=== PATIENT | female | born 1965 | race Caucasian/White ===

== ENCOUNTER 2016-09-14 09:09 | Day surgery (SDC) | payer MEDICARE, OTHER ==
[2016-09-04 15:30] VITALS: BMI 28.3
[~2016-09-14 09:09] MED LIST: LACTATED RINGERS 1,000 ML IV ONE
[2016-09-14 09:59] VITALS: TEMP 97.6
[2016-09-14] MEDS ORDERED: LACTATED RINGERS 1,000 ML IV ONE (10:28)
[2016-09-14] MEDS ORDERED: fentaNYL (PF) 50 MCG/ML 2 ML AMP ONE (10:53)
[2016-09-14] MEDS ORDERED: BUPIVACAINE (PF) 0.5% 30 ML VIAL ONE (10:53)
[2016-09-14] MEDS ORDERED: MIDAZOLAM 2 MG/2 ML VIAL ONE (10:53)
[2016-09-14] MEDS ORDERED: TRIAMCINOLONE ACETONIDE 40 MG/ML 1 ML VIAL ONE (10:53)
--- NOTE | 2016-09-14 11:29 | P.PCN ---
Date of Procedure: 09/14/16 Procedure(s) Performed: PREOPERATIVE DIAGNOSIS: Cervical spondylosis with Facet Arthropathy without myelopathy. POSTOPERATIVE DIAGNOSIS: Cervical spondylosis with Facet Arthropathy without myelopathy. PROCEDURES: Radiofrequency thermocoagulation, Left C3, C4, C5 medial branch with Fluroscopy Guidence ANESTHESIA: Local with 1% lidocaine; IV sedation with fentanyl 200 mcg and Versed 2 mg . EBL: Minimal PROCEDURE INDICATION: The patient with neck pain secondary to cervical arthropathy who had more than 50% relief of her pain with previous diagnostic cervical medial branch block. We have done radiofrequency ablation of the medial branch cervical area patient gets good pain relief for more than 6 months , and she is here today to have repeat radiofrequency ablation of the medial branch cervical area PROCEDURE DESCRIPTION / TECHNIQUE: The patient was seen and identified in the preoperative area. Risks, benefits, complications, and alternatives were discussed with the patient, the patient agreed to proceed with the procedure and signed the consent. IV was started. Vital signs remained stable throughout the procedure. Patient was taken to the OR and time out was completed. The patient was placed in the prone position on the procedure table. A pillow was placed under the patients chest to increase the cervical interlaminar space. The cervical area was prepped and draped in the usual sterile fashion. Critical pause was taken. Vital signs were closely monitored during the procedure. Conscious sedation was used during the procedure to decrease patients anxiety. Using cross-table lateral fluoroscopy, the centroid of the trapezoid of C3, C4, C5, and C6 were identified, marked, and localized with 1% lidocaine. Subsequently, a 20 [id number] radiofrequency cannula with a 10-mm active tip was advanced guided by fluoroscopy to the centroid of the trapezoid of left C3 , C4, C5 . Needle tip position was confirmed at the centroid of the trapezoids of the left C3, C4, C5, with anteroposterior fluoroscopy. Each site then underwent sensory testing at 50 Hz and 0 to 1 volt and motor testing at 2 Hz and 0 to 3 volt with local stimulation, but no radicular symptoms down the arm. Thereafter the left C3, C4,C5 sites underwent radiofrequency thermocoagulation at 80 degrees celsius for 90 seconds after injecting 0.5 ml of PF lidocaine 1% . After thermocoagulation, 1 ml of the block solution containing Kenalog 40 mg and 3 mL of preservative-free normal saline was injected at the C3, C4, C5, levels after negative aspiration of CSF and blood and with no paresthesias. Cannulas were retracted while injecting lidocaine 1% until the needle is out. Skin was cleansed and bandages were applied. COMPLICATIONS: No acute complications. COMMENTS: DISPOSITION / PLANS: The patient was placed in a supine position and transferred to the recovery area in a stable condition for observation and was discharged from the recovery room after meeting discharge criteria. Home discharge instructions given to the patient by the staff. The patient was reexamined prior to discharge. The patient will schedule a follow up in the clinic in 2-4 weeks.
[2016-09-14 11:40] VITALS: PULSE 68; RESP 18
[2016-09-14] MEDS ORDERED: IV FLUID CONTINUATION 1,000 ML IV ONE (11:42)
[2016-09-14 11:56] VITALS: BP 131/62
--- NOTE | 2016-09-14 12:02 | FL ---
Fluoroscopy INDICATION: Pain FINDINGS: Fluoroscopy time: 8 seconds. Images obtained: 2. IMPRESSIONS: 1. Documentation of fluoroscopy.
== END 2016-09-14 12:25 | disposition home or self-care (01) ==
LOC: ORPAIN 09:09
PROVIDERS: ATTEND Specialist
DX: M47.812 Spondylosis without myelopathy or radiculopathy, cervical region (principal); M46.92 Unspecified inflammatory spondylopathy, cervical region; J44.9 Chronic obstructive pulmonary disease, unspecified; J45.909 Unspecified asthma, uncomplicated; F41.9 Anxiety disorder, unspecified; Z88.0 Allergy status to penicillin
CPT/HCPCS: 64633; 64634 ×2; J2250; J3301; J3010

== ENCOUNTER 2016-09-17 15:03 | Emergency (ER) | payer MEDICARE, OTHER ==
[2016-09-17] MEDS ORDERED: SODIUM CHLORIDE 0.9% 1,000 ML IV STA (15:46)
[2016-09-17] MEDS ORDERED: KETOROLAC 30 MG/ML 1 ML VIAL IVP STA (15:55)
--- NOTE | 2016-09-17 16:12 | ED ---
Abdominal Pain HPI - General Chief Complaint: Abdominal Pain Stated Complaint: Abd Pain Time Seen by Provider: 09/17/16 15:46 Source: patient, RN notes reviewed Mode of arrival: ambulatory Limitations: no limitations - History of Present Illness Initial Comments: 51-year-old female presents emergency Department chief complaint right flank and right lower abdominal pain for 3 weeks. Patient states she's been taking her primary care physician who treated for possible UTI though urine was clear. Patient is currently taking Cipro. Patient states she's had a prior cholecystectomy, hysterectomy with left oophorectomy states she still has a ovary. Patient denies any dysuria or hematuria. Denies any vaginal bleeding or vaginal discharge. Patient states she's had no nausea no vomiting diarrhea constipation. Patient has a history kidney stones. She states she has chronic pain which she takes Dilaudid for states that she took it today with no relief of her pain. Patient denies any chest pain or shortness breath. - Related Data Home Medications Medication Instructions Recorded Confirmed Albuterol Inhaler [Ventolin Hfa 1 puff INHALATION RT-QID PRN 12/21/13 09/17/16 Inhaler] Loratadine 10 mg PO QAM 01/10/14 09/17/16 busPIRone HCL [Buspar] 15 mg PO BID 05/16/14 09/17/16 Ezetimibe [Zetia] 10 mg PO HS 09/05/14 09/17/16 Lidocaine 5% Oint [Xylocaine 5% 1 applic TOPICAL QID PRN 11/28/14 09/17/16 Oint] Ranitidine HCl 75 mg PO DAILY 07/17/15 09/17/16 Docusate [Colace] 200 mg PO DAILY PRN 11/25/15 09/17/16 Fluticasone Propionate 1 spray EA NOSTRIL BID 11/25/15 09/17/16 Citalopram Hydrobromide [CeleXA] 40 mg PO QAM 12/10/15 09/17/16 Methylphenidate HCl [Ritalin] 20 mg PO TID 12/10/15 09/17/16 OXcarbazepine [Trileptal] 600 mg PO BID 12/10/15 09/17/16 traZODone HCL [Desyrel] 100 mg PO HS 12/10/15 09/17/16 Levothyroxine Sodium [Synthroid] 25 mcg PO DAILY 03/13/16 09/17/16 Varenicline [Chantix] 1 mg PO BID 04/15/16 09/17/16 Atorvastatin [Lipitor] 10 mg PO HS 07/20/16 09/17/16 Ibuprofen [Motrin] 600 mg PO Q4H PRN 07/20/16 09/17/16 Cholecalciferol [Vitamin D3] 3,000 unit PO DAILY 09/11/16 09/17/16 Ciprofloxacin HCl [Cipro] 250 mg PO Q12HR 09/17/16 09/17/16 Lactulose 20 gm PO DAILY PRN 09/17/16 09/17/16 Previous Rx's Medication Instructions Recorded Cyclobenzaprine [Flexeril] 10 mg PO BID PRN #60 tab 06/10/16 HYDROmorphone HCL [Dilaudid] 4 mg PO QID #120 tablet 08/05/16 Allergies Allergy/AdvReac Type Severity Reaction Status Date / Time Penicillins Allergy Rash/Hives Verified 09/17/16 15:45 Review of Systems ROS Statement: Those systems with pertinent positive or pertinent negative responses have been documented in the HPI. ROS Other: All systems not noted in ROS Statement are negative. Past Medical History Past Medical History: Asthma, COPD, GERD/Reflux, Hyperlipidemia, Musculoskeletal Disorder, Syncope, Thyroid Disorder Additional Past Medical History / Comment(s): Nephrolithiasis with sx, hypoglycemia chronic neck and L shoulder pain- DDD, DJD, hx L facial and L ankle fxs, sinus problems, vertigo, falls in past. 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 Bunionectomies , surgery for L fx foot-alix place & removed, lithotripsey and stent placed and removed, laser eye surgery bilaterally, EGD, Colonoscopy. PAIN clinic procedures. Rectocele in Aug 2015. Past Anesthesia/Blood Transfusion Reactions: Previous Problems w/ Anesthesia Additional Past Anesthesia/Blood Transfusion Reaction / Comment(s): Takes longer to wake up from anesthesia. Past Psychological History: ADD/ADHD, Anxiety, Depression Additional Psychological History / Comment(s): Pt resides with her eldest son. She is independent. She drives. Smoking Status: Current every day smoker Past Alcohol Use History: None Reported Additional Past Alcohol Use History / Comment(s): SMOKED ON/OFF SINCE 12 YEARS OLD, (37 YRS)1 PPD. STATES SMOKES A COUPLE CIGARETTES A DAY NOW. Past Drug Use History: None Reported Additional Drug Use History / Comment(s): PAST marijuana USE -quit 2011 - Past Family History Mother Family Medical History: Cancer, Thyroid Disorder Additional Family Medical History / Comment(s): Mother of LUNG cancer at age 64 yrs. Father Family Medical History: Asthma, COPD, Osteoarthritis (OA) Additional Family Medical History / Comment(s): Father at age 80 yrs. General Exam Limitations: no limitations General appearance: alert, in no apparent distress Head exam: Present: atraumatic, normocephalic, normal inspection Neck exam: Present: normal inspection, full ROM. Absent: tenderness, meningismus, lymphadenopathy Respiratory exam: Present: normal lung sounds bilaterally. Absent: respiratory distress, wheezes, rales, rhonchi, stridor Cardiovascular Exam: Present: regular rate, normal rhythm, normal heart sounds. Absent: systolic murmur, diastolic murmur, rubs, gallop, clicks GI/Abdominal exam: Present: soft, tenderness (Mild tenderness to right lower abdomen), normal bowel sounds. Absent: distended, guarding, rebound, rigid Back exam: Present: CVA tenderness (R). Absent: CVA tenderness (L) Skin exam: Present: warm, dry, intact, normal color. Absent: rash Course Vital Signs 09/17/16 09/17/16 09/17/16 15:12 18:43 19:11 Temperature 98 F 97.5 F L 97.4 F L Pulse Rate 70 96 65 Respiratory 20 16 18 Rate Blood Pressure 143/82 145/68 143/72 O2 Sat by Pulse 99 96 98 Oximetry Medical Decision Making - Medical Decision Making 51-year-old female presented for abdominal pain and right flank pain. Patient has been having ongoing pain. Patient's x-ray shows ileus/constipation CT shows no acute abnormality and lab work within normal limits. Patient will be discharged advised increase bowel movements secondary to chronic narcotic use - Lab Data Result diagrams: 09/17/16 16:10 09/17/16 16:10 Lab Results 09/17/16 09/17/16 09/17/16 Range/Units 16:10 16:10 16:10 WBC 10.6 (3.8-10.6) k/uL RBC 4.80 (3.80-5.40) m/uL Hgb 13.3 (11.4-16.0) gm/dL Hct 39.9 (34.0-46.0) % MCV 83.1 (80.0-100.0) fL MCH 27.8 (25.0-35.0) pg MCHC 33.4 (31.0-37.0) g/dL RDW 12.8 (11.5-15.5) % Plt Count 332 (150-450) k/uL Neutrophils % 63 % Lymphocytes % 28 % Monocytes % 5 % Eosinophils % 2 % Basophils % 0 % Neutrophils # 6.7 (1.3-7.7) k/uL Lymphocytes # 3.0 (1.0-4.8) k/uL Monocytes # 0.5 (0-1.0) k/uL Eosinophils # 0.2 (0-0.7) k/uL Basophils # 0.0 (0-0.2) k/uL Sodium 131 L (137-145) mmol/L Potassium 4.3 (3.5-5.1) mmol/L Chloride 92 L (98-107) mmol/L Carbon Dioxide 25 (22-30) mmol/L Anion Gap 14 mmol/L BUN 8 (7-17) mg/dL Creatinine 0.69 (0.52-1.04) mg/dL Est GFR (MDRD) Af Amer >60 (>60 ml/min/1.73 sqM) Est GFR (MDRD) Non-Af >60 (>60 ml/min/1.73 sqM) Glucose 83 (74-99) mg/dL Calcium 9.1 (8.4-10.2) mg/dL Total Bilirubin 0.4 (0.2-1.3) mg/dL AST 39 H (14-36) U/L ALT 158 H (9-52) U/L Alkaline Phosphatase 155 H (38-126) U/L Total Protein 7.8 (6.3-8.2) g/dL Albumin 4.8 (3.5-5.0) g/dL Amylase <30 L (30-110) U/L Lipase 67 (23-300) U/L Urine Color Yellow Urine Appearance Cloudy H (Clear) Urine pH 6.0 (5.0-8.0) Ur Specific [place] 1.020 (1.001-1.035) Urine Protein Trace H (Negative) Urine Glucose (UA) Negative (Negative) Urine Ketones Negative (Negative) Urine Blood Negative (Negative) Urine Nitrate Negative (Negative) Urine Bilirubin Negative (Negative) Urine Urobilinogen <2.0 (<2.0) mg/dL Ur Leukocyte Esterase Negative (Negative) Urine RBC 1 (0-5) /hpf Urine WBC 4 (0-5) /hpf Ur Squamous Epith Cells 4 (0-4) /hpf Hyaline Casts 1 (0-2) /lpf Urine Mucus Rare H (None) /hpf Disposition Clinical Impression: Abdominal pain, Ileus Disposition: HOME SELF-CARE Condition: Stable Instructions: Abdominal Pain (ED) Additional Instructions: Please return to the Emergency Department if symptoms worsen or any other concerns. Time of Disposition: 19:30
[2016-09-17 16:19] LABS: Basophils % (A) 0 %; CH 28.9; CHCM 34.9; Eosinophils # (A) 0.2 k/uL (0-0.7); Eosinophils % (A) 2 %; HCT 39.9 % (34.0-46.0); HDW 2.34; HGB 13.3 gm/dL (11.4-16.0); Luc # (Auto) 0.19; Luc % (Auto) 2; Lymphocytes % (A) 28 %; MCH 27.8 pg (25.0-35.0); MCHC 33.4 g/dL (31.0-37.0); MCV 83.1 fL (80.0-100.0); Mean Platelet Volume 6.3; Monocytes # (A) 0.5 k/uL (0-1.0); Monocytes % (A) 5 %; Neutrophils # (A) 6.7 k/uL (1.3-7.7); Neutrophils % (A) 63 %; RDW 12.8 % (11.5-15.5); WBC 10.6 k/uL (3.8-10.6); WBC (Perox) 10.52
[2016-09-17 16:29] LABS: ALT 158 U/L (9-52); AST 39 U/L (14-36); Alkaline Phosphatase 155 U/L (38-126); Amylase <30 U/L (30-110); Anion Gap 14 mmol/L; Blood Urea Nitrogen 8 mg/dL (7-17); Calcium 9.1 mg/dL (8.4-10.2); Carbon Dioxide 25 mmol/L (22-30); Chloride 92 mmol/L (98-107); Glucose 83 mg/dL (74-99); Non-African American GFR(MDRD) >60 (>60 ml/min/1.73 sqM); Potassium 4.3 mmol/L (3.5-5.1); Sodium 131 mmol/L (137-145); Total Bilirubin 0.4 mg/dL (0.2-1.3); Total Protein 7.8 g/dL (6.3-8.2)
--- NOTE | 2016-09-17 16:32 | XR ---
EXAMINATION TYPE: XR KUB DATE OF EXAM: 09/17/2016 4:25 PM COMPARISON: 08/04/2015 INDICATION: Abdomen pain, right lower quadrant pain TECHNIQUE: Single view abdomen upright view. FINDINGS: There is a nonspecific bowel gas pattern. Air-fluid levels are within the midabdomen. Air is within t he colon. Differential air-fluid level may be in the left upper quadrant. No free air is present. No mass effect is evident. Psoas margins are normal. No organomegaly is present. IMPRESSION: 1. Nonspecific abdomen. Correlate for ileus.
[2016-09-17 16:39] LABS: Appearance,Urine Cloudy (Clear); Bilirubin,Urine Negative (Negative); Glucose,Urine (UA) Negative (Negative); Ketones,Urine Negative (Negative); Leukocyte Esterase,Urine Negative (Negative); Mucus,Urine Rare /hpf; Nitrite,Urine Negative (Negative); Particle Count 5230; Protein,Urine Trace (Negative); RBC,Urine 1 /hpf (0-5); Squamous Epithelial Cell,Urine 4 /hpf (0-4); UA Billing (MACRO vs. MICRO) MICRO; Urobilinogen,Urine <2.0 mg/dL (<2.0); WBC,Urine 4 /hpf (0-5)
--- NOTE | 2016-09-17 17:06 | US ---
EXAMINATION TYPE: US transvaginal DATE OF EXAM: 09/17/2016 4:52 PM COMPARISON: No previous CLINICAL HISTORY: Pain. Intermittent right pelvic and back pain x 2 weeks that has gotten worse in pa st 2 days, history of hysterectomy and left oophorectomy, 5, para 3, miscarriage 1, 1 TECHNIQUE: Transvaginal (TV) Date of LMP: 15+ years ago EXAM MEASUREMENTS: Uterus: Surgically absent Endometrial Stripe: Surgically absent Right Ovary: not seen Left Ovary: Surgically absent TECHNOLOGIST IMPRESSION: 1. Uterus: Surgically absent 2. Endometrium: Surgically absent 3. Right Ovary: not seen due to overlying peristalsing bowel 4. Left Ovary: Surgically absent 5. Bilateral Adnexa: wnl 6. Posterior cul-de-sac: wnl IMPRESSION: Postsurgical pelvis. No suspicious findings evident on ultrasound. Exam is limited due to bowel gas and postsurgical surgical nature.
[2016-09-17] MEDS ORDERED: RX INFO: IV CONTRAST WAS GIVEN 1 EACH MISC MISCELLANE PRN (17:30)
[2016-09-17] MEDS ORDERED: HYDROmorphone 1 MG/ML 1 ML SYRINGE IVP STA (18:04)
[2016-09-17 19:12] VITALS: BP 143/72; PULSE 65; RESP 18; TEMP 97.4
--- NOTE | 2016-09-17 19:18 | CT ---
EXAMINATION TYPE: CT abdomen pelvis w con DATE OF EXAM: 09/17/2016 6:39 PM COMPARISON: December 10, 2015 CT HISTORY: Pelvic pain CT DLP: 1559 mGycm. Automated exposure control for dose reduction was used. TECHNIQUE: Helical acquisition of images was performed from the lung bases through the pelvis. CONTRAST: Performed with 100 mL of nonionic intravenous contrast. FINDINGS: LUNG BASES: No significant abnormality is appreciated. LIVER/GB: No significant abnormality is appreciated. PANCREAS: No significant abnormality is seen. SPLEEN: No significant abnormality is seen. ADRENALS: No significant abnormality is seen. KIDNEYS: No significant abnormality is seen. RETROPERITONEAL ADENOPATHY: None visualized REPRODUCTIVE ORGANS: No significant abnormality is seen URINARY BLADDER: No significant abnormality is seen. PELVIC ADENOPATHY: None visualized. OSSEOUS STRUCTURES: No significant abnormality is seen. BOWEL: No significant abnormality is seen. IMPRESSION: NO ACUTE PROCESS. NO FOCAL FINDINGS.
[2016-09-17] MEDS ORDERED: BISACODYL 5 MG TABLET.DR PO STA (19:26)
[2016-09-17] MEDS: HYOSCYAMINE SULFATE 0.125 MG TAB PO STA ×2 (19:56→19:57)
== END 2016-09-17 20:04 | disposition home or self-care (01) ==
LOC: EC 15:03
DX: K56.7 Ileus, unspecified (principal); T50.905A Adverse effect of unspecified drugs, medicaments and biological substances, initial encounter; E07.9 Disorder of thyroid, unspecified; E78.5 Hyperlipidemia, unspecified; K21.9 Gastro-esophageal reflux disease without esophagitis; J45.909 Unspecified asthma, uncomplicated; J44.9 Chronic obstructive pulmonary disease, unspecified; F41.9 Anxiety disorder, unspecified; F32.9 Major depressive disorder, single episode, unspecified; F90.9 Attention-deficit hyperactivity disorder, unspecified type; F17.210 Nicotine dependence, cigarettes, uncomplicated; N20.0 Calculus of kidney; K59.03 Drug induced constipation; Z79.51 Long term (current) use of inhaled steroids; Z79.899 Other long term (current) drug therapy; Z88.0 Allergy status to penicillin
CPT/HCPCS: 99285; 96374; 96375; 96361; 36415; 80053; 82150; 83690; 85025; 81001; 74000; 76830; 74177; J1885; J1170; Q9967

== ENCOUNTER → 2016-10-19 | Outpatient (CLI) | payer MEDICARE, OTHER ==
--- NOTE | 2016-10-19 13:04 | P.PN ---
Progress Note - Text Patient returns for followup for chronic neck pain with radiation to head. Patient recently underwent left cervical RFA, which provided very little relief , although patient has previously had excellent relief from cervical RFAs in the past. Patient continues on Dilaudid and Flexeril medications for pain with some relief, but has experienced constipation with bowel movements every 2-3 days, but the frequency of this has decreased in the past couple of months. Patient denies adverse drug effects from medications. Today, pt denies new- onset weakness, bowel/bladder incontinence, or any other signs or symptoms of cauda equina syndrome. There are no signs of acute intoxication, and no indications of medication diversion or overuse. In addition to above, 13-point review of systems is also negative for chest pain , shortness of breath, changes in vision, changes in hearing, new onset weakness , abdominal pain, diarrhea, extreme fatigue, malaise, fever, skin changes, homicidal or suicidal ideation, or bowel or bladder incontinence. Vital Signs: Reviewed in EMR Gen: WDWN, AAOx3, NAD HEENT: NCAT, EOMI, hearing grossly normal Pulm: resp unlabored Abd: soft, NT, ND Neck: supple, trachea midline ROM in flexion cervical spine: reduced ROM in extension cervical spine: reduced Cervical paravertebral tenderness: + Cervical Facet tenderness: + bilateral Spurling's: neg bilateral Upper extremity: decreased coordinating producer strength bilateral UEs Neuro: CN II-XII grossly intact, muscle strength lower extremities PRESERVED Imaging: Reviewed in EMR Assessment: 1. cervical spondylosis without myelopathy 2. cervical myofascial pain 3. chronic pain syndrome Plan: 1. Explanation: Opioid and psychological risk scores were reviewed. Diagnoses , prognoses, and multiple treatment options including but not limited to physical therapy, interventional therapies, adjuvant medical therapies, narcotic medication therapies, and surgery were discussed with the patient and all questions were answered to the patient's satisfaction. 2. Opioid agreement: Patient has previously signed narcotic agreement, and was orally counseled to not overuse, abuse, divert, or cell medications, and to take them as prescribed by only 1 healthcare provider. The patient was also counseled to store opioid medications in a safe and preferably locked location. Patient was also counseled against driving while using narcotic medications and also to not use alcohol or any illicit or recreational drugs. The patient verbalized understanding that lack of compliance with any of the above and likely result in failure to renew narcotic prescriptions, possible discharge from the clinic, and possible legal ramifications thereafter if indicated. 3. Counseling: The patient was counseled extensively on BODY MASS INDEX, EXERCISE. Specifically, the patient was instructed regarding the importance of weight loss and exercise in the context of both chronic pain and overall health. 4. Procedures: none for now 5. Consultations: None 6. Investigations: UDS OK from visit in May 29. Medications: Dilaudid x 2 months 8. Disposition: f/u for re-eval in 2 months after patient sees safety sitter re: constipation PQRS measures: 1-Patient's medications are documented in the chart. 2-Tobacco use is positive, counseling given 3-Patient has not had a pneumococcal vaccine. 4-Advanced care planning discussed, patient unable to give. 5-Opioid contract signed with the patient. 6-Pain positive, follow-up visit or procedure scheduled 7-Patient's blood pressure measured and documented, and patient will follow up with the primary care due to hypertension. 8-Patient's weight was measured, and body mass index ABOVE the normal limits, and counseling was done. Patient instructed to follow up with PCP. 9-Patient WAS NOT identified as an unhealthy alcohol user.
[2016-10-19 13:12] VITALS: BP 111/63; PULSE 75; RESP 16; TEMP 97.6
== END | disposition home or self-care (01) ==
LOC: PNWHC3 12:39
PROVIDERS: ATTEND Anesthesiology
DX: M47.812 Spondylosis without myelopathy or radiculopathy, cervical region (principal); M79.1 Myalgia; G89.4 Chronic pain syndrome; K59.00 Constipation, unspecified; Z79.899 Other long term (current) drug therapy; I10 Essential (primary) hypertension; Z72.0 Tobacco use
CPT/HCPCS: 99211

== ENCOUNTER 2016-11-13 13:22 | Emergency (ER) | payer MEDICARE, OTHER ==
[2016-11-13] MEDS ORDERED: HYDROmorphone 1 MG/ML 1 ML SYRINGE IM STA (14:51)
[2016-11-13] MEDS ORDERED: DIAZEPAM 5 MG/ML 2 ML SYRINGE IVP STA (14:51)
[2016-11-13] MEDS ORDERED: ONDANSETRON 4 MG/2 ML VIAL IVP STA (14:51)
[2016-11-13] MEDS ORDERED: HYDROmorphone 1 MG/ML 1 ML SYRINGE IVP STA (15:18)
[2016-11-13 15:21] LABS: Basophils % (A) 1 %; CH 28.7; Eosinophils # (A) 0.2 k/uL (0-0.7); Eosinophils % (A) 3 %; HCT 33.4 % (34.0-46.0); HDW 2.34; HGB 11.5 gm/dL (11.4-16.0); Luc # (Auto) 0.23; Luc % (Auto) 3; Lymphocytes # (A) 2.6 k/uL (1.0-4.8); Lymphocytes % (A) 37 %; MCH 28.2 pg (25.0-35.0); MCHC 34.3 g/dL (31.0-37.0); MCV 82.3 fL (80.0-100.0); Mean Platelet Volume 7.2; Monocytes # (A) 0.4 k/uL (0-1.0); Monocytes % (A) 5 %; Neutrophils # (A) 3.6 k/uL (1.3-7.7); Neutrophils % (A) 52 %; RBC 4.07 m/uL (3.80-5.40); RDW 12.7 % (11.5-15.5); WBC (Perox) 7.22
[2016-11-13 15:23] LABS: Appearance,Urine Cloudy (Clear); Bacteria,Urine Rare /hpf; Bilirubin,Urine Negative (Negative); Glucose,Urine (UA) Negative (Negative); Ketones,Urine Negative (Negative); Leukocyte Esterase,Urine Large (Negative); Mucus,Urine Few /hpf; Nitrite,Urine Negative (Negative); PH, Urine 6.5 (5.0-8.0); Particle Count 9228; Protein,Urine Trace (Negative); RBC,Urine 2 /hpf (0-5); Specific Gravity,Urine 1.016 (1.001-1.035); Squamous Epithelial Cell,Urine 17 /hpf (0-4); UA Billing (MACRO vs. MICRO) MICRO; WBC,Urine 22 /hpf (0-5)
[2016-11-13 15:30] LABS: ALT 23 U/L (9-52); AST 27 U/L (14-36); Alkaline Phosphatase 98 U/L (38-126); Anion Gap 9 mmol/L; Blood Urea Nitrogen 7 mg/dL (7-17); Calcium 8.9 mg/dL (8.4-10.2); Carbon Dioxide 28 mmol/L (22-30); Chloride 90 mmol/L (98-107); Glucose 84 mg/dL (74-99); Non-African American GFR(MDRD) >60 (>60 ml/min/1.73 sqM); Potassium 4.5 mmol/L (3.5-5.1); Sodium 127 mmol/L (137-145); Total Bilirubin 0.4 mg/dL (0.2-1.3); Total Protein 6.5 g/dL (6.3-8.2)
--- NOTE | 2016-11-13 15:49 | XR ---
EXAMINATION TYPE: XR lumbar spine 2 or 3V DATE OF EXAM ORDERED: 11/13/2016 3:44 PM HISTORY: Pain. COMPARISON: None. FINDINGS: There has been an interpedicular fusion at L5-S1. There is been an L5 laminectomy. There i s degenerative disc disease at the L5-S1 level. Vertebral body height and alignment are maintained. T here is no spondylolysis or spondylolisthesis. The pedicles are intact. IMPRESSION: 1. NO ACUTE OSSEOUS LESION. 2. POSTSURGICAL CHANGE.
--- NOTE | 2016-11-13 16:09 | US ---
EXAMINATION TYPE: US transvaginal DATE OF EXAM: 11/13/2016 3:51 PM COMPARISON: Previous study dated 09/17/2016 CLINICAL HISTORY: Pain. Back pain, right pelvic pain, hysterectomy and left oophorectomy TECHNIQUE: Transvaginal (TV) Date of LMP: unknown EXAM MEASUREMENTS: Uterus: Surgically absent Endometrial Stripe: Surgically absent Right Ovary: 3.0 x 2.1 x 2.2 cm Left Ovary: Surgically absent 1. Uterus: Surgically absent 2. Endometrium: Surgically absent 3. Right Ovary: appears wnl, limited evaluation due to overlying bowel content Spectral, color and waveform doppler imaging shows good arterial and venous flow within the right o vary; there is no evidence for ovarian torsion. 4. Left Ovary: Surgically absent 5. Bilateral Adnexa: appears wnl IMPRESSION: NORMAL POSTHYSTERECTOMY PELVIS.
--- NOTE | 2016-11-13 17:01 | ED ---
General Adult HPI - General Chief complaint: Back Pain/Injury Stated complaint: back pain Time Seen by Provider: 11/13/16 14:17 Source: patient Mode of arrival: ambulatory Limitations: no limitations - History of Present Illness Initial comments: 51-year-old female with past medical history of spinal fusion of the lumbar spine presented for evaluation of back pain with radiation around to her suprapubic abdomen. She states that the symptoms have been present for the last 24 hours. She was seen by her primary care physician who stated that she should come to the ED for further evaluation. She denies any lower extremity weakness, saddle anesthesia, urinary or bowel incontinence. She does have mild dysuria with increased frequency and hesitancy. Denies nausea, vomiting, fevers , chills, chest pain, shortness of breath. Back pain is similar previous but worse. - Related Data Home Medications Medication Instructions Recorded Confirmed Albuterol Inhaler [Ventolin Hfa 1 puff INHALATION RT-QID PRN 12/21/13 11/13/16 Inhaler] Loratadine 10 mg PO QAM 01/10/14 11/13/16 busPIRone HCL [Buspar] 15 mg PO BID 05/16/14 11/13/16 Ezetimibe [Zetia] 10 mg PO HS 09/05/14 11/13/16 Lidocaine 5% Oint [Xylocaine 5% 1 applic TOPICAL BID PRN 11/28/14 11/13/16 Oint] Ranitidine HCl 75 mg PO DAILY 07/17/15 11/13/16 Fluticasone Propionate 1 spray EA NOSTRIL BID 11/25/15 11/13/16 Citalopram Hydrobromide [CeleXA] 40 mg PO QAM 12/10/15 11/13/16 Methylphenidate HCl [Ritalin] 20 mg PO TID 12/10/15 11/13/16 OXcarbazepine [Trileptal] 600 mg PO BID 12/10/15 11/13/16 Levothyroxine Sodium [Synthroid] 25 mcg PO DAILY 03/13/16 11/13/16 Atorvastatin [Lipitor] 10 mg PO HS 07/20/16 11/13/16 Cholecalciferol [Vitamin D3] 3,000 unit PO DAILY 09/11/16 11/13/16 Lactulose 30 gm PO DAILY 09/17/16 11/13/16 Naproxen [Naprosyn] 250 mg PO BID 10/19/16 11/13/16 Simethicone [Gas-X] 125 mg PO Q8H PRN 10/19/16 11/13/16 Dicyclomine [Bentyl] 10 mg PO BID PRN 11/13/16 11/13/16 Omeprazole 40 mg PO DAILY 11/13/16 11/13/16 traZODone HCL 50 mg PO HS 11/13/16 11/13/16 Previous Rx's Medication Instructions Recorded Cyclobenzaprine [Flexeril] 10 mg PO BID PRN #60 tab 06/10/16 HYDROmorphone HCL [Dilaudid] 4 mg PO QID #120 tablet 10/19/16 HYDROcodone/APAP 5-325MG [Morrow 1 - 2 tab PO Q6HR PRN #14 tab 11/13/16 5-325] Ibuprofen [Motrin] 800 mg PO Q8HR PRN #20 tab 11/13/16 Sulfamethox-Tmp 800-160Mg [Bactrim 1 tab PO Q12HR #14 tab 11/13/16 DS 800-160 mg] Allergies Allergy/AdvReac Type Severity Reaction Status Date / Time Penicillins Allergy Rash/Hives Verified 11/13/16 14:50 Review of Systems ROS Statement: Those systems with pertinent positive or pertinent negative responses have been documented in the HPI. ROS Other: All systems not noted in ROS Statement are negative. Constitutional: Denies: fever, chills, weakness Eyes: Denies: eye pain, vision change ENT: Denies: ear pain, throat pain Respiratory: Denies: cough, dyspnea, wheezes Cardiovascular: Denies: chest pain, palpitations Endocrine: Denies: fatigue, polydipsia, polyuria Gastrointestinal: Denies: abdominal pain, nausea, vomiting Genitourinary: Reports: urgency, dysuria, frequency. Denies: hematuria, discharge, abnormal menses, dyspareunia Musculoskeletal: Reports: back pain. Denies: joint swelling, arthralgia Skin: Denies: rash, lesions Neurological: Denies: headache, weakness Psychiatric: Denies: anxiety, depression Past Medical History Past Medical History: Asthma, COPD, GERD/Reflux, Hyperlipidemia, Musculoskeletal Disorder, Syncope, Thyroid Disorder Additional Past Medical History / Comment(s): Nephrolithiasis with sx, hypoglycemia chronic neck and L shoulder pain- DDD, DJD, hx L facial and L ankle fxs, sinus problems, vertigo, falls in past. 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 Bunionectomies , surgery for L fx foot-alix place & removed, lithotripsey and stent placed and removed, laser eye surgery bilaterally, EGD, Colonoscopy. PAIN clinic procedures. Rectocele in Aug 2015. Past Anesthesia/Blood Transfusion Reactions: Previous Problems w/ Anesthesia Additional Past Anesthesia/Blood Transfusion Reaction / Comment(s): Takes longer to wake up from anesthesia. Past Psychological History: ADD/ADHD, Anxiety, Depression Additional Psychological History / Comment(s): Pt resides with her eldest son. She is independent. She drives. Smoking Status: Former smoker Past Alcohol Use History: None Reported Additional Past Alcohol Use History / Comment(s): SMOKED ON/OFF SINCE 12 YEARS OLD, (37 YRS)1 PPD. STATES SMOKES A COUPLE CIGARETTES A DAY NOW. Past Drug Use History: None Reported Additional Drug Use History / Comment(s): PAST marijuana USE -quit 2011 - Past Family History Mother Family Medical History: Cancer, Thyroid Disorder Additional Family Medical History / Comment(s): Mother of LUNG cancer at age 64 yrs. Father Family Medical History: Asthma, COPD, Osteoarthritis (OA) Additional Family Medical History / Comment(s): Father at age 80 yrs. General Exam Limitations: no limitations General appearance: alert, in no apparent distress Head exam: Absent: atraumatic, normocephalic Eye exam: Absent: normal appearance, PERRL, EOMI ENT exam: Present: normal exam, normal oropharynx Neck exam: Present: normal inspection. Absent: tenderness Respiratory exam: Present: normal lung sounds bilaterally. Absent: respiratory distress Cardiovascular Exam: Present: regular rate, normal rhythm GI/Abdominal exam: Present: soft. Absent: distended, tenderness, guarding, rebound Rectal exam: Present: deferred Extremities exam: Present: normal inspection, full ROM Back exam: Present: tenderness, vertebral tenderness. Absent: CVA tenderness (R ), CVA tenderness (L), muscle spasm, paraspinal tenderness Neurological exam: Present: alert, oriented X3, CN II-XII intact, normal gait. Absent: altered Psychiatric exam: Present: normal affect, normal mood Skin exam: Present: warm, dry, intact Course Vital Signs 11/13/16 11/13/16 11/13/16 13:34 15:30 17:18 Temperature 98.0 F 97.6 F Pulse Rate 66 68 62 Respiratory 17 18 16 Rate Blood Pressure 136/64 130/68 140/86 O2 Sat by Pulse 98 98 98 Oximetry EKG Findings - EKG Comments: EKG Findings:: Sinus rhythm with first-degree AV block, ventricular rate 62, RUPERT 08/24/1942, QRS 92, QTc 462. Medical Decision Making - Medical Decision Making 51-year-old female with past medical history of lower back surgery presenting for evaluation of chronic back pain that is acutely worsened with new onset superpubic abdominal pain. On physical examination she does have tenderness to the lower back and only minor superpubic tenderness. We'll obtain labs and treat her pain. Labs significant for urinary tract infection. Imaging of lumbar spine showed no acute process. The patient was informed of these results and that she would be given a prescription for antibiotics and discharged with instructions to follow-up with her primary care physician but to return to this facility if her symptoms should worsen or persist. Patient acknowledged an understanding of this information and agreed with this plan of care. - Lab Data Result diagrams: 11/13/16 15:05 11/13/16 15:05 Lab Results 11/13/16 11/13/16 11/13/16 Range/Units 15:05 15:05 15:05 WBC 7.0 (3.8-10.6) k/uL RBC 4.07 (3.80-5.40) m/uL Hgb 11.5 (11.4-16.0) gm/dL Hct 33.4 L (34.0-46.0) % MCV 82.3 (80.0-100.0) fL MCH 28.2 (25.0-35.0) pg MCHC 34.3 (31.0-37.0) g/dL RDW 12.7 (11.5-15.5) % Plt Count 255 (150-450) k/uL Neutrophils % 52 % Lymphocytes % 37 % Monocytes % 5 % Eosinophils % 3 % Basophils % 1 % Neutrophils # 3.6 (1.3-7.7) k/uL Lymphocytes # 2.6 (1.0-4.8) k/uL Monocytes # 0.4 (0-1.0) k/uL Eosinophils # 0.2 (0-0.7) k/uL Basophils # 0.0 (0-0.2) k/uL Sodium 127 L (137-145) mmol/L Potassium 4.5 (3.5-5.1) mmol/L Chloride 90 L (98-107) mmol/L Carbon Dioxide 28 (22-30) mmol/L Anion Gap 9 mmol/L BUN 7 (7-17) mg/dL Creatinine 0.66 (0.52-1.04) mg/dL Est GFR (MDRD) Af Amer >60 (>60 ml/min/1.73 sqM) Est GFR (MDRD) Non-Af >60 (>60 ml/min/1.73 sqM) Glucose 84 (74-99) mg/dL Calcium 8.9 (8.4-10.2) mg/dL Total Bilirubin 0.4 (0.2-1.3) mg/dL AST 27 (14-36) U/L ALT 23 (9-52) U/L Alkaline Phosphatase 98 (38-126) U/L Total Protein 6.5 (6.3-8.2) g/dL Albumin 4.1 (3.5-5.0) g/dL Lipase 47 (23-300) U/L Urine Color Yellow Urine Appearance Cloudy H (Clear) Urine pH 6.5 (5.0-8.0) Ur Specific Josephine 1.016 (1.001-1.035) Urine Protein Trace H (Negative) Urine Glucose (UA) Negative (Negative) Urine Ketones Negative (Negative) Urine Blood Negative (Negative) Urine Nitrite Negative (Negative) Urine Bilirubin Negative (Negative) Urine Urobilinogen 2.0 (<2.0) mg/dL Ur Leukocyte Esterase Large H (Negative) Urine RBC 2 (0-5) /hpf Urine WBC 22 H (0-5) /hpf Ur Squamous Epith Cells 17 H (0-4) /hpf Urine Bacteria Rare H (None) /hpf Urine Mucus Few H (None) /hpf Disposition Clinical Impression: UTI (urinary tract infection), Back pain Disposition: HOME SELF-CARE Condition: Stable Instructions: Urinary Tract Infection in Women (ED) Additional Instructions: Please use medication as discussed. Please follow up with family doctor if symptoms have not improved over the next two days. Please return to the emergency room if your symptoms increase or worsen or for any other concerns. Prescriptions: HYDROcodone/APAP 5-325MG [Morrow 5-325] 1 - 2 tab PO Q6HR PRN #14 tab PRN Reason: Analgesia Ibuprofen [Motrin] 800 mg PO Q8HR PRN #20 tab PRN Reason: Analgesia Sulfamethox-Tmp 800-160Mg [Bactrim DS 800-160 mg] 1 tab PO Q12HR #14 tab Referrals: Ihsan Ding DO [Primary Care Provider] - 1-2 days Time of Disposition: 17:01
[2016-11-13] MEDS ORDERED: HYDROcodone/APAP 5-325MG 1 EACH TAB PO STA (17:04)
[2016-11-13 17:20] VITALS: BP 140/86; PULSE 62; RESP 16; TEMP 97.6
== END 2016-11-13 17:18 | disposition home or self-care (01) ==
LOC: EC 13:22
DX: N39.0 Urinary tract infection, site not specified (principal); M54.5 Low back pain; G89.29 Other chronic pain; Z98.1 Arthrodesis status; E07.9 Disorder of thyroid, unspecified; K21.9 Gastro-esophageal reflux disease without esophagitis; E78.5 Hyperlipidemia, unspecified; F90.9 Attention-deficit hyperactivity disorder, unspecified type; F41.9 Anxiety disorder, unspecified; F32.9 Major depressive disorder, single episode, unspecified; F17.210 Nicotine dependence, cigarettes, uncomplicated; Z79.1 Long term (current) use of non-steroidal anti-inflammatories (NSAID); Z79.891 Long term (current) use of opiate analgesic; Z79.51 Long term (current) use of inhaled steroids; Z79.899 Other long term (current) drug therapy; Z88.0 Allergy status to penicillin
CPT/HCPCS: 99284 ×2; 96374 ×2; 96375 ×3; 36415; 93005; 80053; 83690; 85025; 81001; 72100; 93976; 76830; J3360; J2405; J1170

== ENCOUNTER 2016-11-21 13:53 | Emergency (ER) | payer MEDICARE, OTHER ==
[2016-11-21 13:59] VITALS: RESP 16
--- NOTE | 2016-11-21 14:46 | ED ---
General Adult HPI - General Chief complaint: Abdominal Pain Stated complaint: Stomach and Back Pain Time Seen by Provider: 11/21/16 14:07 Source: patient, RN notes reviewed, old records reviewed Mode of arrival: ambulatory Limitations: no limitations - History of Present Illness Initial comments: Chief complaint history of present illness this is a 51-year-old female here with the discomfort from her right lower back to the right lower quadrant area. The patient having this pain for several months. While in hospital ER 1 week ago she had a UTI. It was treated. 3 days ago she had a urine test done which showed no growth from her doctor's office. Patient denies any change in appetite, no weight loss. Patient does report having had mesh used to close hernia in years gone by. - Related Data Home Medications Medication Instructions Recorded Confirmed Albuterol Inhaler [Ventolin Hfa 1 puff INHALATION RT-QID PRN 12/21/13 11/21/16 Inhaler] Loratadine 10 mg PO QAM 01/10/14 11/21/16 busPIRone HCL [Buspar] 15 mg PO BID 05/16/14 11/21/16 Ezetimibe [Zetia] 10 mg PO HS 09/05/14 11/21/16 Lidocaine 5% Oint [Xylocaine 5% 1 applic TOPICAL BID PRN 11/28/14 11/21/16 Oint] Ranitidine HCl 75 mg PO HS 07/17/15 11/21/16 Fluticasone Propionate 1 spray EA NOSTRIL BID 11/25/15 11/21/16 Citalopram Hydrobromide [CeleXA] 40 mg PO QAM 12/10/15 11/21/16 Methylphenidate HCl [Ritalin] 20 mg PO TID 12/10/15 11/21/16 OXcarbazepine [Trileptal] 600 mg PO BID 12/10/15 11/21/16 Levothyroxine Sodium [Synthroid] 25 mcg PO DAILY 03/13/16 11/21/16 Atorvastatin [Lipitor] 10 mg PO HS 07/20/16 11/21/16 Cholecalciferol [Vitamin D3] 3,000 unit PO DAILY 09/11/16 11/21/16 Lactulose 30 gm PO DAILY 09/17/16 11/21/16 Naproxen [Naprosyn] 250 mg PO BID 10/19/16 11/21/16 Simethicone [Gas-X] 125 mg PO Q8H PRN 10/19/16 11/21/16 Dicyclomine [Bentyl] 10 mg PO BID PRN 11/13/16 11/21/16 Omeprazole 40 mg PO HS 11/13/16 11/21/16 traZODone HCL 50 mg PO HS 11/13/16 11/21/16 Previous Rx's Medication Instructions Recorded Cyclobenzaprine [Flexeril] 10 mg PO BID PRN #60 tab 06/10/16 HYDROmorphone HCL [Dilaudid] 4 mg PO QID #120 tablet 10/19/16 Ibuprofen [Motrin] 800 mg PO Q8HR PRN #20 tab 11/13/16 Allergies Allergy/AdvReac Type Severity Reaction Status Date / Time Penicillins Allergy Rash/Hives Verified 11/21/16 14:49 Review of Systems ROS Statement: Those systems with pertinent positive or pertinent negative responses have been documented in the HPI. Review of systems. No complaint of headache chest pain shortness of breath no change in bowel habits or urination. Patient has discomfort in the right lower back into the right lower quadrant area. All systems are reviewed. Past medical problems significant for asthma, COPD, GERD, hyperlipidemia, chronic back pain, syncope, low thyroid, nephrolithiasis one year ago. Patient's surgeries include appendectomy, partial hysterectomy with right ovary still left in place. Adenoidectomy tonsillectomy, but Chiari malformation surgery. Abdominal hernia repair with mesh. And back surgery. The patient quit smoking 3 months ago family history at this time noncontributory. Patient has ALLERGIES to penicillin. Told chart reviewed. ROS Other: All systems not noted in ROS Statement are negative. Past Medical History Past Medical History: Asthma, COPD, GERD/Reflux, Hyperlipidemia, Musculoskeletal Disorder, Syncope, Thyroid Disorder Additional Past Medical History / Comment(s): Nephrolithiasis with sx, hypoglycemia chronic neck and L shoulder pain- DDD, DJD, hx L facial and L ankle fxs, sinus problems, vertigo, falls in past. 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 Bunionectomies , surgery for L fx foot-alix place & removed, lithotripsey and stent placed and removed, laser eye surgery bilaterally, EGD, Colonoscopy. PAIN clinic procedures. Rectocele in Aug 2015. Past Anesthesia/Blood Transfusion Reactions: Previous Problems w/ Anesthesia Additional Past Anesthesia/Blood Transfusion Reaction / Comment(s): Takes longer to wake up from anesthesia. Past Psychological History: ADD/ADHD, Anxiety, Depression Additional Psychological History / Comment(s): Pt resides with her eldest son. She is independent. She drives. Smoking Status: Former smoker Past Alcohol Use History: None Reported Additional Past Alcohol Use History / Comment(s): SMOKED ON/OFF SINCE 12 YEARS OLD, (37 YRS)1 PPD. STATES SMOKES A COUPLE CIGARETTES A DAY NOW. Past Drug Use History: None Reported Additional Drug Use History / Comment(s): PAST marijuana USE -quit 2011 - Past Family History Mother Family Medical History: Cancer, Thyroid Disorder Additional Family Medical History / Comment(s): Mother of LUNG cancer at age 64 yrs. Father Family Medical History: Asthma, COPD, Osteoarthritis (OA) Additional Family Medical History / Comment(s): Father at age 80 yrs. General Exam - General Exam Comments Initial Comments: General: The patient is awake and alert, in no distress, and does not appear acutely ill. Planes or chronic, over 3 months long pain right lower lumbar radiating around toward the right lower quadrant. Vital signs are temperature 96.8 pulse 71 respiratory rate 16 pulse ox 98% room air blood pressure 114/59 Eye: Pupils are equal, round and reactive to light, extra-ocular movements are intact ; there is normal conjunctiva bilaterally. No signs of icterus. Ears, nose, mouth and throat: There are moist mucous membranes and no oral lesions. Neck: The neck is supple, there is no tenderness , no anterior cervical lymphadenopathy. Cardiovascular: There is a regular rate and rhythm. No murmur, rub or gallop is appreciated. Respiratory: Lungs are clear to auscultation, respirations are non-labored, breath sounds are equal. No wheezes, stridor, rales, or rhonchi. Gastrointestinal: Soft, non-distended, non-tender abdomen without masses or organomegaly noted. There is no rebound or guarding present. No CVA tenderness. Bowel sounds are unremarkable. No pain with deep palpation. No organomegaly appreciated. No rashes noted. Patient was advised to WATCH for any rashes that might be related to shingles. Back: Chronic mild low back pain especially on the right side which radiates around toward the front. Musculoskeletal: Normal ROM, no tenderness, There is no pedal edema. There is no calf tenderness or swelling. Neurological: No neuro deficits. No problems with voiding. No complaints of numbness or tingling in the saddle area. No foot drop complaints. Skin: Skin is warm and dry and no rashes or lesions are noted. Psychiatric: No complaints of any anxiety or depression. Past history of anxiety and depression. Limitations: no limitations Course Vital Signs 11/21/16 13:57 Temperature 96.8 F L Pulse Rate 71 Respiratory 16 Rate Blood Pressure 114/59 O2 Sat by Pulse 98 Oximetry Medical Decision Making - Medical Decision Making Medical decision making; the patient had an ultrasound of the right upper quadrant the radiologist's impression was a dilated pancreatic duct and status post cholecystectomy. She also had an ultrasound of the right lower quadrant. And the radiologist's impression is; the uterus is surgically absent, the right ovary obscured by overlying bowel gas but the patient had an ultrasound just 10 days ago which showed essentially a normal ovary and blood flow to the ovary. The patient be referred back to her family physician. As this is been 3-4 month long process. The patient does have Dilaudid pain pills at home. And reexamination found no guarding no rebound or referred pain. And no organomegaly. Disposition Clinical Impression: Chronic abdominal pain Disposition: HOME SELF-CARE Condition: Stable Additional Instructions: Continue with home medications. Follow-up with your family physician. Time of Disposition: 19:09
--- NOTE | 2016-11-21 16:32 | US ---
EXAMINATION TYPE: US abdomen limited DATE OF EXAM: 11/21/2016 3:49 PM COMPARISON: on PACS CLINICAL HISTORY: RLQ pain,prev appy, partial hyst, has rt ovary. Patient states having GB removed x 4-5 years ago. Hx of left renal stone. EXAM MEASUREMENTS: Liver Length: 16.4 cm CHD: 0.7 cm Right Kidney: 10.4 x 5.5 x 4.7 cm Pancreas: echogenic. Main pancreatic duct appears dilated= 3.3 mm. Tail not seen due to overlying bowel gas. Liver: wnl Gallbladder: removed CHD: wnl Right Kidney: Prominent dromedary hump seen. The pancreas is echogenic. The pancreatic duct is enlarged measuring 3.3 cm. The liver is unremarkable. The gallbladder is been removed. Distal common hepatic duct measures 7 mm. The right kidney is unremarkable. IMPRESSION: 1. DILATED PANCREATIC DUCT. 2. STATUS POST CHOLECYSTECTOMY.
--- NOTE | 2016-11-21 18:49 | US ---
EXAMINATION TYPE: US transvaginal DATE OF EXAM: 11/21/2016 6:32 PM COMPARISON: on PACS CLINICAL HISTORY: Evaluate right ovary, right lower quadrant pain. Hx of partial hysterectomy with le ft ovary removed. Hx of vaginal mesh. TECHNIQUE: Transvaginal (TV) Date of LMP: Uterus removed EXAM MEASUREMENTS: 1. Uterus: Surgically absent 2. Endometrium: Surgically absent 3. Right Ovary: Obscured by overlying bowel gas 4. Left Ovary: Surgically absent 5. Bilateral Adnexa: Multiple images taken. No sign of free fluid or masses sen. 6. Posterior cul-de-sac: wnl IMPRESSION: Although the right ovary was visualized and unremarkable on the prior exam of 11/13/2016, unfortunately it is currently obscured by bowel gas and cannot be visualized. Again the uterus and le ft ovary are surgically absent.
[2016-11-21 19:23] VITALS: PULSE 70; TEMP 97.8
[2016-11-21 19:29] VITALS: BP 126/78
== END 2016-11-21 19:28 | disposition home or self-care (01) ==
LOC: EC 13:53
DX: R10.9 Unspecified abdominal pain (principal); G89.29 Other chronic pain; M54.5 Low back pain; J45.909 Unspecified asthma, uncomplicated; J44.9 Chronic obstructive pulmonary disease, unspecified; K21.9 Gastro-esophageal reflux disease without esophagitis; E78.5 Hyperlipidemia, unspecified; E07.9 Disorder of thyroid, unspecified; F90.9 Attention-deficit hyperactivity disorder, unspecified type; F32.9 Major depressive disorder, single episode, unspecified; F41.9 Anxiety disorder, unspecified; Z87.891 Personal history of nicotine dependence; Z79.1 Long term (current) use of non-steroidal anti-inflammatories (NSAID); Z79.899 Other long term (current) drug therapy; Z88.0 Allergy status to penicillin; Z90.710 Acquired absence of both cervix and uterus; Z98.890 Other specified postprocedural states
CPT/HCPCS: 76705; 76830; 99284

== ENCOUNTER → 2016-12-14 | Outpatient (CLI) | payer MEDICARE, OTHER ==
[2016-12-14 14:57] VITALS: BP 129/77; PULSE 82; RESP 82; TEMP 97.9
--- NOTE | 2016-12-14 14:59 | P.PN ---
Progress Note - Text This is a 51-year-old female with chronic neck pain status post Arnold-Chiari decompression surgery many years ago. The patient had many injections in her neck with short-lived or little relief of her pain after the last RFA. She takes Dilaudid 4 mg 4 times a day plus baclofen. Neuro exam of the upper extremities showed normal and symmetrical muscle strength normal biceps reflex and absent triceps reflex bilaterally and symmetrically. She has tenderness in the cervical paravertebral area on the left side and she had decreased left head rotation because of increasing pain on the left side of her neck. The patient has numbness and tingling in the left hand that has been getting worse lately. At this point I will order an MRI of the cervical spine with and without contrast for left cervical radiculopathy. I will decrease her Dilaudid from 4 mg 4 times a day to 4 mg 3 times a day. We will see the patient next month for reevaluation.
== END ==
LOC: PNWHC3 14:35
PROVIDERS: ATTEND Anesthesiology
DX: M54.2 Cervicalgia (principal); G89.29 Other chronic pain; Z79.891 Long term (current) use of opiate analgesic; Z79.899 Other long term (current) drug therapy
CPT/HCPCS: 99211

== ENCOUNTER → 2016-12-26 | Outpatient (CLI) | payer MEDICARE, OTHER ==
--- NOTE | 2016-12-27 12:40 | MR ---
EXAMINATION TYPE: MR cervical spine wo/w con DATE OF EXAM: 12/26/2016 11:08 AM COMPARISON: Prior cervical MRI dated first of December 2012 HISTORY: Neck pain TECHNIQUE: Multiplanar, multisequence images of the cervical spine were acquired utilizing 15 mL intravenous Mul tiHance gadolinium contrast. C2-C3: Some mild left-sided foraminal encroachment is present due to uncovertebral joint hypertrophy, no significant central stenosis or disc herniation C3-C4: Some left-sided foraminal encroachment is again noted. No significant central stenosis. No dis c herniation C4-C5: Posterior extension of endplate disc complex causes anterior mass effect on the thecal sac par acentral locations left greater than right, there is left greater than right foraminal encroachment. Mild central stenosis. C5-C6: Lateral extension endplate disc complex is causes bilateral foraminal encroachment left greate r than right. Posterior extension of endplate disc complex causes some mild eccentric mass effect on the thecal sac on the left, no significant central stenosis. C6-C7: No evidence for degenerative disc disease. No disc bulge/herniation or protrusion. No Canal stenosis. Foramina are patent bilaterally. C7-T1: No evidence for degenerative disc disease. No disc bulge/herniation or protrusion. No Canal stenosis. Foramina are patent bilaterally. Cervical segments are intact. There is normal alignment. Cervical spinal cord is of normal signal. Craniovertebral junction relationships are within normal limits. Loss of normal cervical lordosis m ay be due to muscle spasm. Loss of disc height and signal is present at C4-5, C5-6, there is associat ed spondylosis. Some endplate discogenic marrow signal change also noted. No abnormal enhancement fol lowing contrast administration. IMPRESSION: Findings are similar to prior exam. Multilevel degenerative disc disease and foraminal encroachment a s described.
== END | disposition home or self-care (01) ==
LOC: RADMRIMAIN 10:30
PROVIDERS: ATTEND Anesthesiology
DX: M50.10 Cervical disc disorder with radiculopathy, unspecified cervical region (principal); M47.22 Other spondylosis with radiculopathy, cervical region
CPT/HCPCS: 72156; A9577

== ENCOUNTER → 2016-12-28 | Outpatient (CLI) | payer MEDICARE, OTHER ==
--- NOTE | 2016-12-30 11:52 | MM ---
Reason for exam: screening (asymptomatic). Last mammogram was performed 1 year and 1 month ago. History: Patient is postmenopausal. Physical Findings: A clinical breast exam by your physician is recommended on an annual basis and results should be correlated with mammographic findings. MG 3D Screening Mammo W/Cad Bilateral CC and MLO view(s) were taken. Prior study comparison: November 29, 2015, bilateral MG screening mammo w CAD. There are scattered fibroglandular densities. There is chronic nodularity in the right breast. No significant changes when compared with prior studies. ASSESSMENT: Negative, BI-RAD 1 RECOMMENDATION: Routine screening mammogram of both breasts in 1 year.
== END | disposition home or self-care (01) ==
LOC: RADMAMWWP 11:29
PROVIDERS: ATTEND Family Medicine
DX: Z12.31 Encounter for screening mammogram for malignant neoplasm of breast (principal)
CPT/HCPCS: 77063; G0202

== ENCOUNTER → 2017-01-11 | Outpatient (CLI) | payer MEDICARE, OTHER ==
[2017-01-11 13:44] VITALS: BP 135/70; PULSE 78; RESP 18; TEMP 97.7
--- NOTE | 2017-01-11 14:18 | P.PN ---
Progress Note - Text This is a 51-year-old lady with neck pain with radiation to the left arm to the left deltoid area with numbness in the left hand. She also has what seems to be cervicogenic headache. Her headache is mostly the back of her head and gets worse with movement of her neck especially extension and left rotation. The patient did not get good relief of pain from her cervical medial branch block on the C4 5 and C6 levels. Her recent MRI showed and neural foraminal stenosis at the C5-6 level bilaterally but more on the left side than the right side. Also it showed multiple degenerative changes. The patient had cervical epidural steroid injection a few years ago but she does not lumbar her response to it and I think at this point we can try doing another cervical epidural steroid injection only for 2 times. She also may be a candidate for the third occipital nerve block under fluoroscopic guidance in the future for her cervicogenic headache. The patient would like us to address her left arm and neck pain before her headache at this point. She denies any history of diabetes or any anticoagulant treatment. I also the patient that doesn't by itself may cause some headache and despite her questions to go up on the Dilaudid I told her that we should keep the dose as is for now if not go lower in the future. I will give her prescription for 90 pills of Dilaudid 4 mg 2 months.
== END | disposition home or self-care (01) ==
LOC: PNWHC3 13:22
PROVIDERS: ATTEND Anesthesiology
DX: M99.71 Connective tissue and disc stenosis of intervertebral foramina of cervical region (principal); M47.812 Spondylosis without myelopathy or radiculopathy, cervical region
CPT/HCPCS: 99211

== ENCOUNTER → 2017-02-04 | Day surgery (SDC) | payer MEDICARE, OTHER ==
[2017-02-03 10:04] VITALS: BMI 27.4
[~2017-02-04] MED LIST changes: +DEXAMETHASONE SOD PHOS (MDV) 100 MG/10 ML VIAL ONE; +IOHEXOL 180 MG/ML 1 ML ML ONE; -LACTATED RINGERS 1,000 ML IV ONE; +LACTATED RINGERS 1,000 ML IV SCH; +LIDOCAINE 1% 20 ML VIAL (10MG/ML) FOR IV START INTRADERMA ONE; +MIDAZOLAM 2 MG/2 ML VIAL ONE; +fentaNYL (PF) 50 MCG/ML 2 ML AMP ONE
[2017-02-04 12:54] VITALS: TEMP 98.5
--- NOTE | 2017-02-04 13:46 | P.PCN ---
Date of Procedure: 02/04/17 Preoperative Diagnosis: Postoperative Diagnosis: Procedure(s) Performed: . PROCEDURE 1. Cervical epidural steroid injection under fluoroscopic guidance at C6-7 level 2. Cervical epidurogram. PREOPERATIVE DIAGNOSIS: 1- Cervical Degenerative Disc Diseases 2-cervical spondylosis with cervical Facet arthropathy without myelopathy POSTOPERATIVE DIAGNOSIS: : 1- Cervical Degenerative Disc Diseases , 2-cervical spondylosis with cervical Facet arthropathy without myelopathy ANESTHESIA: Local anesthesia with 1% lidocaine and IV sedation with Versed 2 mg and Fentanyl 100 mcg. EBL 0 PROCEDURE INDICATION: The patient with neck pain and radiculitis unresponsive to conservative treatment consents for procedure. PROCEDURE DESCRIPTION / TECHNIQUE: The patient was seen and identified in the preoperative area. Risks, benefits, complications, including but not limited to infections ,bleeding , allergic reactions to the medications ,and not complete pain releife, and alternatives were discussed with the patient, the patient agreed to proceed with the procedure and signed the consent. Patient was taken to the OR and time out was completed. The patient was placed in the prone position on the procedure table. A pillow was placed under the patients chest to increase the cervical interlaminar space. The cervical area was prepped and draped in the usual sterile fashion. Vital signs were closely monitored during the procedure. Conscious sedation was used during the procedure to decrease patients anxiety. Using anterior-posterior fluoroscopy, the C6-7 interlaminar space was identified and the skin over this site was marked and then infiltrated with 1% lidocaine subcutaneously. Subsequently, a 20-gauge 3-1/2-inch Tuohy epidural needle was inserted and advanced toward the epidural space by means of the `` hanging-drop technique and guided by AP and lateral fluoroscopy. The correct needle position in the epidural space was verified with the injection of 2 mL of the water soluble contrast dye Isovue-180 and observing an excellent epidurogram with the epidural spread of the dye, after negative aspiration for blood and CSF and in the absence of paresthesias. Again after negative aspiration, mixture containing 20 mg Dexamethasone and 2 ml of preservative- free normal saline injected and a washout of epidurogram was seen. Needle was withdrawn intact, skin was cleansed, and bandages were applied. Complications= none. Disposition= patient was placed in supine position and transferred to the recovery room area in stable condition and there was no evidence of upper or lower extremity motor or sensory deficit after the procedure patient was discharged from recovery room after discharge criteria met and home discharge instructions was given by the staff and patient will follow with the pain clinic in 2-4 weeks Implants: Indications for Procedure: Operative Findings: Description of Procedure:
--- NOTE | 2017-02-04 13:58 | FL ---
EXAMINATION TYPE: FL guided pain mgmt statistic DATE OF EXAM: 02/04/2017 HISTORY: Flouroscopy time 2 seconds of fluoroscopy provided. IMPRESSION: 1. Fluoroscopy time.
[2017-02-04 14:04] VITALS: PULSE 72; RESP 18
[2017-02-04 14:17] VITALS: BP 131/63
== END | disposition home or self-care (01) ==
LOC: ORPAIN 12:37
PROVIDERS: ATTEND Specialist
DX: M50.10 Cervical disc disorder with radiculopathy, unspecified cervical region (principal); M47.22 Other spondylosis with radiculopathy, cervical region; M46.92 Unspecified inflammatory spondylopathy, cervical region; J44.9 Chronic obstructive pulmonary disease, unspecified; E03.9 Hypothyroidism, unspecified; Z88.0 Allergy status to penicillin
CPT/HCPCS: 62321; J2250; Q9965; J3010; J1100

== ENCOUNTER → 2017-03-08 | Outpatient (CLI) | payer MEDICARE, OTHER ==
[2017-03-08 13:01] VITALS: BP 125/70; PULSE 83; RESP 16; TEMP 97
--- NOTE | 2017-03-08 13:24 | P.PN ---
Progress Note - Text Patient returns for followup for chronic neck pain with radiation to head in left arm along with non-radiating back pain. Patient recently underwent cervical MARILIN x 1, which provided some relief for past several weeks (pain 10/10 down to 5/10). Patient continues on Dilaudid and Flexeril medications for pain with some relief. Patient denies adverse drug effects from medications. Today , pt denies new-onset weakness, bowel/bladder incontinence, or any other signs or symptoms of cauda equina syndrome. There are no signs of acute intoxication, and no indications of medication diversion or overuse. In addition to above, 13-point review of systems is also negative for chest pain , shortness of breath, changes in vision, changes in hearing, new onset weakness , abdominal pain, diarrhea, extreme fatigue, malaise, fever, skin changes, homicidal or suicidal ideation, or bowel or bladder incontinence. Vital Signs: Reviewed in EMR Gen: WDWN, AAOx3, NAD HEENT: NCAT, EOMI, hearing grossly normal Pulm: resp unlabored Abd: soft, NT, ND Neck: supple, trachea midline Cervical paravertebral tenderness: + Cervical Facet tenderness: + bilateral Spurling's: + LUE Upper extremity: decreased souvenir street vendor strength bilateral UEs + SLR LLE + facet loading bilateral, L > R Neuro: CN II-XII grossly intact, muscle strength lower extremities PRESERVED Imaging: Reviewed in EMR Assessment: 1. cervical spondylosis without myelopathy 2. cervical myofascial pain 3. chronic pain syndrome 4. lumbar PLPS Plan: 1. Explanation: Opioid and psychological risk scores were reviewed. Diagnoses , prognoses, and multiple treatment options including but not limited to physical therapy, interventional therapies, adjuvant medical therapies, narcotic medication therapies, and surgery were discussed with the patient and all questions were answered to the patient's satisfaction. 2. Opioid agreement: Patient has previously signed narcotic agreement, and was orally counseled to not overuse, abuse, divert, or cell medications, and to take them as prescribed by only 1 healthcare provider. The patient was also counseled to store opioid medications in a safe and preferably locked location. Patient was also counseled against driving while using narcotic medications and also to not use alcohol or any illicit or recreational drugs. The patient verbalized understanding that lack of compliance with any of the above and likely result in failure to renew narcotic prescriptions, possible discharge from the clinic, and possible legal ramifications thereafter if indicated. 3. Counseling: The patient was counseled extensively on BODY MASS INDEX, EXERCISE. Specifically, the patient was instructed regarding the importance of weight loss and exercise in the context of both chronic pain and overall health. 4. Procedures: change repeat YASIR to caudal MARILIN with lysis of adhesions 5. Consultations: None 6. Investigations: UDS today 7. Medications: Dilaudid 4 mg #90 x 2 months 8. Disposition: f/u for procedure as scheduled PQRS measures: 1-Patient's medications are documented in the chart. 2-Tobacco use is positive, counseling given 3-Patient has not had a pneumococcal vaccine. 4-Advanced care planning discussed, patient unable to give. 5-Opioid contract signed with the patient. 6-Pain positive, follow-up visit or procedure scheduled 7-Patient's blood pressure measured and documented, and patient will follow up with the primary care due to hypertension. 8-Patient's weight was measured, and body mass index ABOVE the normal limits, and counseling was done. Patient instructed to follow up with PCP. 9-Patient WAS NOT identified as an unhealthy alcohol user.
== END | disposition home or self-care (01) ==
LOC: PNWHC3 12:42
PROVIDERS: ATTEND Anesthesiology
DX: M47.812 Spondylosis without myelopathy or radiculopathy, cervical region (principal); G89.4 Chronic pain syndrome; M96.1 Postlaminectomy syndrome, not elsewhere classified; M79.1 Myalgia; Z79.891 Long term (current) use of opiate analgesic
CPT/HCPCS: G0480; G0463; 80307; 80356; 80364; 99211

== ENCOUNTER 2017-03-17 09:36 | Day surgery (SDC) | payer MEDICARE, OTHER ==
[2017-03-10 14:46] VITALS: BMI 27.4
[2017-03-17 10:31] VITALS: RESP 16; TEMP 98
[2017-03-17] MEDS ORDERED: LIDOCAINE 1% 20 ML VIAL (10MG/ML) FOR IV START INTRADERMA ONE (10:37)
[2017-03-17] MEDS ORDERED: LACTATED RINGERS 1,000 ML IV SCH (10:45)
--- NOTE | 2017-03-17 11:04 | P.PCN ---
Date of Procedure: 03/17/17 Preoperative Diagnosis: Postoperative Diagnosis: Procedure(s) Performed: Implants: Surgeon: Lamin Hendricks Pathology: none sent Condition: stable Disposition: PACU Indications for Procedure: Operative Findings: Description of Procedure: PREOP DIAGNOSIS: Lumbar postlaminectomy syndrome POSTOP DIAGNOSIS: Lumbar postlaminectomy syndrome PROCEDURE: Caudal epidural steroid injection with epidurolysis and epidurogram under fluoroscopic guidance ANESTHESIA: Local with 1% lidocaine; conscious sedation EBL: Minimal. PROCEDURE INDICATION: The patient with post-laminectomy syndrome with low back pain and radiculopathy radiating down in both legs, here for a caudal epidural steroid injection with epidurolysis in series. Patient does not use any blood thinning medications. PROCEDURE DESCRIPTION: The patient was seen and identified in the preoperative area. Risks, benefits, complications, and alternatives were discussed with the patient including but not limited to bleeding, infection, nerve damage, incomplete pain relief, and allergic reactions to medications. The patient agreed to proceed with the procedure and signed the consent after all questions were answered. IV was started, and vital signs were stable. Patient was taken to the OR and time out was completed to verify proper patient , procedure, laterality of pain, and allergies. The patient was placed in the prone position on procedure table and a pillow was placed under the abdomen to reduce lumbar lordosis. The lumbosacral area was prepped and draped in the usual sterile fashion. Critical pause was taken. Vital signs were closely monitored during the procedure. Fluoroscopic camera was placed in the lateral view and the anterior-posterior plates of the sacrum were identified with infiltration of the area overlying the sacral hiatus with 1% lidocaine .A 16 gauge RK epidural needle was used to advance through the sacral hiatus into the caudal epidural space. Omnipaque 300 dye 2cc was injected and the position of the needle was verified to be in the midline. A Racz catheter was introduced into the epidural space and was advanced towards the L5-S1 interspace under direct fluoroscopic guidance. Multiple passes were made with the catheter for lysis of epidural adhesions. Decadron 20 mg with 3ml of preservative free Lidocaine 1% and 7 ml of preservative free normal saline was injected slowly. Additional spread was seen to L4 under fluoroscopy. The needle and the catheter were withdrawn intact. EPIDUROGRAM: Omnipaque 300 dye 2 ml was injected with spread of the dye into the caudal epidural space and with spread cutoff at L5 prior to epidurolysis. Post epidurolysis dye 2 ml was injected and spread was seen to L4. There was further spread of the solution together with the dye above the L4. COMPLICATIONS: None. DISPOSITION / PLANS: The patient was placed in a supine position and transferred to the recovery area in a stable condition for observation and was discharged from the recovery room after meeting discharge criteria. Home discharge instructions given to the patient by the staff. The patient was reexamined prior to discharge. The patient will schedule a follow up in the clinic in 2-4 weeks.
[2017-03-17] MEDS ORDERED: IV FLUID CONTINUATION 1,000 ML IV ONE (11:14)
--- NOTE | 2017-03-17 11:15 | FL ---
FLUOROSCOPY 8 seconds of fluoroscopy time were utilized during Pain Injection. 2 images document the procedure.
[2017-03-17 11:38] VITALS: BP 106/91; PULSE 58
== END 2017-03-17 12:01 | disposition home or self-care (01) ==
LOC: ORPAIN 09:36
PROVIDERS: ATTEND Anesthesiology
DX: M96.1 Postlaminectomy syndrome, not elsewhere classified (principal); M47.812 Spondylosis without myelopathy or radiculopathy, cervical region; M79.1 Myalgia; G89.4 Chronic pain syndrome; G54.6 Phantom limb syndrome with pain; Z79.891 Long term (current) use of opiate analgesic; Z79.899 Other long term (current) drug therapy; Z72.0 Tobacco use
CPT/HCPCS: 62264; J2250; J1100; Q9965; J3010; C1894

== ENCOUNTER → 2017-05-03 | Outpatient (CLI) | payer MEDICARE, OTHER ==
[2017-05-03 13:57] VITALS: BP 124/73; PULSE 79; RESP 16; TEMP 97.6
--- NOTE | 2017-05-03 14:02 | P.PN ---
Progress Note - Text Patient returns for followup for chronic neck pain with radiation to head in left arm along with non-radiating back pain. Patient recently underwent caudal MARILIN with lysis, which provided good relief for past month > 50%. Patient continues on Dilaudid and Flexeril medications for pain with some relief. Patient denies adverse drug effects from medications. Today, pt denies new- onset weakness, bowel/bladder incontinence, or any other signs or symptoms of cauda equina syndrome. There are no signs of acute intoxication, and no indications of medication diversion or overuse. In addition to above, 13-point review of systems is also negative for chest pain , shortness of breath, changes in vision, changes in hearing, new onset weakness , abdominal pain, diarrhea, extreme fatigue, malaise, fever, skin changes, homicidal or suicidal ideation, or bowel or bladder incontinence. Vital Signs: Reviewed in EMR Gen: WDWN, AAOx3, NAD HEENT: NCAT, EOMI, hearing grossly normal Pulm: resp unlabored Abd: soft, NT, ND Neck: supple, trachea midline Cervical paravertebral tenderness: + Cervical Facet tenderness: + bilateral Spurling's: + LUE Upper extremity: decreased traffic survey technician strength bilateral UEs + SLR LLE + facet loading bilateral, L > R Neuro: CN II-XII grossly intact, muscle strength lower extremities PRESERVED Imaging: Reviewed in EMR Assessment: 1. cervical spondylosis without myelopathy 2. cervical myofascial pain 3. chronic pain syndrome 4. lumbar PLPS Plan: 1. Explanation: Opioid and psychological risk scores were reviewed. Diagnoses , prognoses, and multiple treatment options including but not limited to physical therapy, interventional therapies, adjuvant medical therapies, narcotic medication therapies, and surgery were discussed with the patient and all questions were answered to the patient's satisfaction. 2. Opioid agreement: Patient has previously signed narcotic agreement, and was orally counseled to not overuse, abuse, divert, or cell medications, and to take them as prescribed by only 1 healthcare provider. The patient was also counseled to store opioid medications in a safe and preferably locked location. Patient was also counseled against driving while using narcotic medications and also to not use alcohol or any illicit or recreational drugs. The patient verbalized understanding that lack of compliance with any of the above and likely result in failure to renew narcotic prescriptions, possible discharge from the clinic, and possible legal ramifications thereafter if indicated. 3. Counseling: The patient was counseled extensively on BODY MASS INDEX, EXERCISE. Specifically, the patient was instructed regarding the importance of weight loss and exercise in the context of both chronic pain and overall health. 4. Procedures: repeat YASIR 5. Consultations: None 6. Investigations: UDS appropriate from last visit 7. Medications: Dilaudid 4 mg #90 x 2 months 8. Disposition: f/u for procedure as scheduled. Of note, the patient was warned regarding the synergistic effects of benzodiazepines and opioids in terms of sedation, nausea, and respiratory depression possibly resulting in . The patient verbalized understanding and acceptance of these risks. PQRS measures: 1-Patient's medications are documented in the chart. 2-Tobacco use is positive, counseling given 3-Patient has not had a pneumococcal vaccine. 4-Advanced care planning discussed, patient unable to give. 5-Opioid contract signed with the patient. 6-Pain positive, follow-up visit or procedure scheduled 7-Patient's blood pressure measured and documented, and patient will follow up with the primary care due to hypertension. 8-Patient's weight was measured, and body mass index ABOVE the normal limits, and counseling was done. Patient instructed to follow up with PCP. 9-Patient WAS NOT identified as an unhealthy alcohol user.
== END | disposition home or self-care (01) ==
LOC: PNWHC3 13:37
PROVIDERS: ATTEND Anesthesiology
DX: M47.812 Spondylosis without myelopathy or radiculopathy, cervical region (principal); G89.4 Chronic pain syndrome; G97.1 Other reaction to spinal and lumbar puncture
CPT/HCPCS: 99211

== ENCOUNTER 2017-05-27 08:03 | Day surgery (SDC) | payer MEDICARE, OTHER ==
[2017-05-24 11:51] VITALS: BMI 27.4
[~2017-05-27 08:03] MED LIST changes: -DEXAMETHASONE SOD PHOS (MDV) 100 MG/10 ML VIAL ONE; -IOHEXOL 180 MG/ML 1 ML ML ONE; -LIDOCAINE 1% 20 ML VIAL (10MG/ML) FOR IV START INTRADERMA ONE; -MIDAZOLAM 2 MG/2 ML VIAL ONE; -fentaNYL (PF) 50 MCG/ML 2 ML AMP ONE
[2017-05-27] MEDS ORDERED: LIDOCAINE 1% 20 ML VIAL (10MG/ML) FOR IV START INTRAPLEUR ONE (08:56)
[2017-05-27 08:59] VITALS: RESP 16; TEMP 98.3
--- NOTE | 2017-05-27 09:49 | P.PCN ---
Date of Procedure: 05/27/17 Procedure(s) Performed: . PROCEDURE 1. Cervical epidural steroid injection under fluoroscopic guidance, C7-T1 2. Cervical epidurogram. PREOPERATIVE DIAGNOSIS: 1- Cervical Degenerative Disc Diseases 2-cervical spondylosis with cervical Facet arthropathy without myelopathy POSTOPERATIVE DIAGNOSIS: : 1- Cervical Degenerative Disc Diseases , 2-,cervical spondylosis with cervical Facet arthropathy without myelopathy ANESTHESIA: Local anesthesia with 1% lidocaine and IV sedation with Versed 3 mg and Fentanyl 100 mcg. EBL 0 PROCEDURE INDICATION: The patient with neck pain and radiculitis unresponsive to conservative treatment consents for procedure. PROCEDURE DESCRIPTION / TECHNIQUE: The patient was seen and identified in the preoperative area. Risks, benefits, complications, including but not limited to infections ,bleeding , allergic reactions to the medications ,and not complete pain releife, and alternatives were discussed with the patient, the patient agreed to proceed with the procedure and signed the consent. Patient was taken to the OR and time out was completed. The patient was placed in the prone position on the procedure table. A pillow was placed under the patients chest to increase the cervical interlaminar space. The cervical area was prepped and draped in the usual sterile fashion. Vital signs were closely monitored during the procedure. Conscious sedation was used during the procedure to decrease patients anxiety. Using anterior-posterior fluoroscopy, the C7-T1 interlaminar space was identified and the skin over this site was marked and then infiltrated with 1% lidocaine subcutaneously. Subsequently, a 20-gauge 3-1/2-inch Tuohy epidural needle was inserted and advanced toward the epidural space by means of the `` hanging-drop technique and guided by AP and lateral fluoroscopy. The correct needle position in the epidural space was verified with the injection of 2 mL of the water soluble contrast dye Isovue-180 and observing an excellent epidurogram with the epidural spread of the dye, after negative aspiration for blood and CSF and in the absence of paresthesias. Again after negative aspiration, mixture containing 20 mg Dexamethasone and 2 ml of preservative- free normal saline injected and a washout of epidurogram was seen. Needle was withdrawn intact, skin was cleansed, and bandages were applied. Complications= none. Disposition= patient was placed in supine position and transferred to the recovery room area in stable condition and there was no evidence of upper or lower extremity motor or sensory deficit after the procedure patient was discharged from recovery room after discharge criteria met and home discharge instructions was given by the staff and patient will follow with the pain clinic in 2-4 weeks
--- NOTE | 2017-05-27 10:04 | FL ---
EXAMINATION TYPE: FL guided pain mgmt statistic DATE OF EXAM: 05/27/2017 FLUOROSCOPY Fluoroscopy time of 5 seconds was used during cervical epidural injection. 2 image/s document/s the procedure.
[2017-05-27] MEDS ORDERED: IV FLUID CONTINUATION 1,000 ML IV ONE (10:24)
[2017-05-27 10:26] VITALS: PULSE 68
[2017-05-27 10:27] VITALS: BP 113/56
== END 2017-05-27 10:29 | disposition home or self-care (01) ==
LOC: ORPAIN 08:03
PROVIDERS: ATTEND Specialist
DX: M50.10 Cervical disc disorder with radiculopathy, unspecified cervical region (principal); M47.22 Other spondylosis with radiculopathy, cervical region; M46.92 Unspecified inflammatory spondylopathy, cervical region; M96.1 Postlaminectomy syndrome, not elsewhere classified; J44.9 Chronic obstructive pulmonary disease, unspecified; E03.9 Hypothyroidism, unspecified; Z88.0 Allergy status to penicillin
CPT/HCPCS: 62321; J2250; J1100; Q9965; J3010; 99152

== ENCOUNTER → 2017-06-28 | Outpatient (CLI) | payer MEDICARE, OTHER ==
[2017-06-28 14:06] VITALS: BP 129/72; PULSE 85; RESP 16
--- NOTE | 2017-06-28 20:55 | P.PN ---
Subjective Progress Note Date: 06/28/17 This is a follow-up visit for this 51 years old female with a chronic history of severe neck pain and low back pain patient had cervical fusion surgery and lumbar fusion surgery she continue to have severe low back pain we did interventional pain management, cervical epidural steroid injection ultrasonographer the epidural steroid injection and she had short-term benefit from it, she tried multiple pain medication and none of it help to improve her pain she had side effects from medications, she is currently on Dilaudid 4 mg every 8 hours and Flexeril 10 mg every 8 hours , denies any focal neurological deficit she denies any fever or night sweats and she denies any change in the bowel movements or urination Objective - Vital Signs Vital signs: Vital Signs Temp Pulse 85 06/28/17 14:00 Resp 16 06/28/17 14:00 BP 129/72 06/28/17 14:00 Pulse Ox 97 06/28/17 14:00 Intake & Output 06/28/17 06/28/17 06/29/17 06:59 18:59 06:59 Weight 70.307 kg - Exam Physical Examinations : 1-Constitutiona : Cooperative , not in acute distress . 2-HEENT : nech ; supple , no Lymphadenopathy , normal thyroid size . eyes : no ptosis , no icterus, no photophobia . ENT : normal of hearing , normal oropharynx , no Thrush . 3- Respiratory : Chest clear to auscultations Bilaterally , no wheezing , no Rhonchi . 4- Cardiovascular : regular rate and rhythem , S1 , S2 , no S3 , no S4. 5- Gastrointestinal : abdomen soft no tenderness , bowel sounds positive all four quadrents , no organomegally . 6- Genitourinary : Defferred . 7- neurologic : Cranial nerve II to XII intact , no focal neurological deffecit . 8-psychatric : alert , oriented X 3 , appropriate affect , intact judgment and insight . 9-Lymphatic : no Lymphadenopathy . 10- musculoskeltal : cervical spine = motor stregnth in the deltoid and biceps, motor stregnth biceps and the wrist extensors (C6) . motor stregnth in the triceps muscle . deep tendon reflexes normal at the biceps , l normal at Brachioradialis normal at the triceps positive cervical facet loading test . , Lumber spine = normal moter stegnth lower extremities ,thigh and legs .5/5 deep tendon reflexes : normal Knee Jerk , normal ankle Jerk . positive lumber facet Loading Test strait leg raising test positive at 30 degree , RT ,LT , Fabere test positive RT and positive LT . Assessment and Plan Plan: Assessment and plan= chronic neck and low back pain secondary to , failed back surgery syndrome and lumbar area and cervical area chronic and current use of high-risk medication (opioids) Patient denies any side effects of the current pain medication and the current treatment/medication ML and the patient to do activity of daily living , Diagnoses, prognosis, treatment options, including but not limited to physical therapy, medication management, interventional therapies, and surgery, were discussed with the patient All the questions answered Patient signed the narcotic agreement, and he was orally counseled, not to overuse, not to abuse, not to Divert , not tp sell pain medication, and to take it as prescribed only, Patient was counseled not to drive or operate heavy equipment while using narcotic medication, and advised not to use alcohol or any Illicit drugs while using the narcotis, the patient's verbalized understanding that lack of compliance with any of the above instructions and will likely to cause discharge from the pain service, not to renew his narcotic prescriptions Medication managements= patient will be given prescription refills for 1-Dilaudid 4 mg every 8 hours as 90 with 1 refill 2-start Motrin 800 mg every 8 hours this 90 with 1 refill 3-Flexeril 10 mg every 8 hours Interventional pain management=none Follow-up= 2 months UDS ordered today ,
== END ==
LOC: PNWHC3 13:17
PROVIDERS: ATTEND Specialist
DX: M54.5 Low back pain (principal); M54.2 Cervicalgia; Z79.891 Long term (current) use of opiate analgesic; Z79.899 Other long term (current) drug therapy
CPT/HCPCS: 99211

== ENCOUNTER 2017-07-05 15:46 | Emergency (ER) | payer MEDICARE, OTHER ==
[2017-07-05 15:59] VITALS: TEMP 98.8
[2017-07-05] MEDS ORDERED: KETOROLAC 30 MG/ML 1 ML VIAL IVP STA (16:40)
[2017-07-05] MEDS ORDERED: diphenhydrAMINE 50 MG/ML 1 ML VIAL IVP STA (16:40)
[2017-07-05] MEDS ORDERED: SODIUM CHLORIDE 0.9% 500 ML IV STA (16:40)
[2017-07-05] MEDS ORDERED: METOCLOPRAMIDE 5 MG/ML 2 ML VIAL IVP STA (16:40)
[2017-07-05] MEDS ORDERED: HYDROmorphone 1 MG/ML 1 ML SYRINGE IVP STA (18:10)
[2017-07-05 18:36] VITALS: BP 117/56; PULSE 70; RESP 17
--- NOTE | 2017-07-05 18:43 | ED ---
Headache HPI - General Chief Complaint: Headache Stated Complaint: Headache Time Seen by Provider: 07/05/17 16:03 Mode of arrival: ambulatory Limitations: no limitations - History of Present Illness Initial Comments: 52-year-old female with past medical history of headaches, asthma, COPD, GERD, hyperlipidemia, kidney stones, chronic pain, degenerative disc disease, degenerative joint disease, vertigo presented for evaluation of headache since last . She states that onset was gradual and progressively worsened over the weekend to today. She takes Dilaudid at home for her chronic pain that she gets at the pain clinic. She also took some NSAIDs that had initially been helping early in the course however were unsuccessful in relieving her pain today. She states that she has a history of headaches and that this is consistent with previous ones, initiating from the right side of her neck and radiating across the right side of her head to her forehead. There is no change in vision, ataxia, intractable nausea vomiting, or change in features from previous headaches. - Related Data Home Medications Medication Instructions Recorded Confirmed Albuterol Inhaler [Ventolin Hfa 1 puff INHALATION RT-QID PRN 12/21/13 07/05/17 Inhaler] Loratadine 10 mg PO QAM 01/10/14 07/05/17 Ezetimibe [Zetia] 10 mg PO HS 09/05/14 07/05/17 Ranitidine HCl 75 mg PO HS 07/17/15 07/05/17 Fluticasone Propionate 1 spray EA NOSTRIL BID 11/25/15 07/05/17 Citalopram Hydrobromide [CeleXA] 40 mg PO QAM 12/10/15 07/05/17 Methylphenidate HCl [Ritalin] 20 mg PO TID 12/10/15 07/05/17 OXcarbazepine [Trileptal] 600 mg PO BID 12/10/15 07/05/17 Levothyroxine Sodium [Synthroid] 25 mcg PO DAILY 03/13/16 07/05/17 Atorvastatin [Lipitor] 10 mg PO HS 07/20/16 07/05/17 Simethicone [Gas-X] 125 mg PO Q8H PRN 10/19/16 07/05/17 Dicyclomine [Bentyl] 10 mg PO BID PRN 11/13/16 07/05/17 Omeprazole 40 mg PO HS 11/13/16 07/05/17 traZODone HCL 50 mg PO HS 11/13/16 07/05/17 Estradiol [Estrace] 0.5 mg PO DAILY 02/03/17 07/05/17 clonazePAM [KlonoPIN] 0.5 mg PO BID PRN 05/03/17 07/05/17 Varenicline [Chantix] 1 mg PO BID 05/27/17 07/05/17 Ibuprofen [Motrin] 800 mg PO Q8HR PRN 07/05/17 07/05/17 Menthol [Biofreeze] 1 applic TOPICAL QID PRN 07/05/17 07/05/17 busPIRone HCL [Buspar] 30 mg PO BID 07/05/17 07/05/17 Previous Rx's Medication Instructions Recorded Cyclobenzaprine [Flexeril] 10 mg PO BID PRN #60 tab 06/28/17 HYDROmorphone HCL [Dilaudid] 4 mg PO Q8HR PRN #90 tab 06/28/17 Allergies Allergy/AdvReac Type Severity Reaction Status Date / Time Penicillins Allergy Rash/Hives Verified 07/05/17 16:24 Review of Systems ROS Statement: Those systems with pertinent positive or pertinent negative responses have been documented in the HPI. ROS Other: All systems not noted in ROS Statement are negative. Constitutional: Denies: fever, chills Eyes: Denies: eye pain, eye discharge, vision change ENT: Denies: epistaxis, congestion Respiratory: Denies: cough, dyspnea, wheezes Cardiovascular: Denies: chest pain, palpitations Endocrine: Denies: fatigue, polydipsia, polyuria Gastrointestinal: Denies: abdominal pain, nausea, vomiting Genitourinary: Denies: urgency, dysuria Musculoskeletal: Denies: back pain, arthralgia, myalgia Skin: Denies: rash, lesions Neurological: Reports: headache. Denies: weakness, numbness, paresthesias, abnormal gait Psychiatric: Denies: anxiety, depression Hematological/Lymphatic: Denies: easy bleeding, easy bruising Past Medical History Past Medical History: Asthma, COPD, GERD/Reflux, Hyperlipidemia, Musculoskeletal Disorder, Syncope, Thyroid Disorder Additional Past Medical History / Comment(s): Nephrolithiasis with sx, hypoglycemia chronic neck and L shoulder pain- DDD, DJD, hx L facial and L ankle fxs, sinus problems, vertigo, falls in past. 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 Bunionectomies , surgery for L fx foot-alix place & removed, lithotripsey and stent placed and removed, laser eye surgery bilaterally, EGD, Colonoscopy. PAIN clinic procedures. Rectocele in Aug 2015. Past Anesthesia/Blood Transfusion Reactions: Previous Problems w/ Anesthesia Additional Past Anesthesia/Blood Transfusion Reaction / Comment(s): Takes longer to wake up from anesthesia. Past Psychological History: ADD/ADHD, Anxiety, Depression Smoking Status: Light tobacco smoker Past Alcohol Use History: None Reported Past Drug Use History: None Reported - Past Family History Mother Family Medical History: Cancer, Thyroid Disorder Additional Family Medical History / Comment(s): Mother of LUNG cancer at age 64 yrs. Father Family Medical History: Asthma, COPD, Osteoarthritis (OA) Additional Family Medical History / Comment(s): Father at age 80 yrs. General Exam Limitations: no limitations General appearance: alert, in no apparent distress Head exam: Present: atraumatic, normocephalic, normal inspection Eye exam: Present: normal appearance, PERRL, EOMI. Absent: scleral icterus, conjunctival injection, periorbital swelling ENT exam: Present: normal exam, mucous membranes moist Neck exam: Present: normal inspection. Absent: tenderness, meningismus, lymphadenopathy Respiratory exam: Present: normal lung sounds bilaterally. Absent: respiratory distress, wheezes, rales, rhonchi, stridor Cardiovascular Exam: Present: regular rate, normal rhythm, normal heart sounds. Absent: systolic murmur, diastolic murmur, rubs, gallop, clicks GI/Abdominal exam: Present: soft, normal bowel sounds. Absent: distended, tenderness, guarding, rebound, rigid Rectal exam: Present: deferred Extremities exam: Present: normal inspection, full ROM, normal capillary refill. Absent: tenderness, pedal edema, joint swelling, calf tenderness Back exam: Present: normal inspection Neurological exam: Present: alert, oriented X3, CN II-XII intact, normal gait, reflexes normal. Absent: altered, abnormal gait, motor sensory deficit Psychiatric exam: Present: normal affect, normal mood Skin exam: Present: warm, dry, intact, normal color. Absent: rash Course Vital Signs 07/05/17 07/05/17 07/05/17 15:55 17:38 18:00 Temperature 98.8 F Pulse Rate 84 69 70 Respiratory 16 19 17 Rate Blood Pressure 125/67 122/59 117/56 O2 Sat by Pulse 98 98 100 Oximetry Medical Decision Making - Medical Decision Making Her old female with past medical history as noted above presented for evaluation of headache since last . She states that is consistent with previous migraines and that her traditional therapy has been unsuccessful at managing her symptoms. She states that the onset was gradual and progressively worsening and is located on the right side of her head which is similar to previous episodes. She denies any other associated symptoms. On physical examination can 102 through 12 are intact without focal neurologic deficits and she has normal gait and station. She was given a headache cocktail and on reevaluation stated that her pain improved somewhat however was still present. She was given more pain control and on reevaluation had marketed improvement in her symptoms. She was in related in the hallway once more and had no abnormality in her ambulation or gait. She stated that she felt well enough to go home at this time. She was advised to follow-up with her primary care physician but to return to this facility if her symptoms should worsen or persist. The patient acknowledged an understanding of this information and agreed with this plan of care. Disposition Clinical Impression: Headache Disposition: HOME SELF-CARE Condition: Stable Instructions: Acute Headache (ED) Referrals: Ihsan Ding DO [Primary Care Provider] - 1-2 days Time of Disposition: 18:42
== END 2017-07-05 18:53 | disposition home or self-care (01) ==
LOC: EC 15:46
DX: R51 Headache (principal); J44.9 Chronic obstructive pulmonary disease, unspecified; K21.9 Gastro-esophageal reflux disease without esophagitis; E78.5 Hyperlipidemia, unspecified; E07.9 Disorder of thyroid, unspecified; F32.9 Major depressive disorder, single episode, unspecified; F41.9 Anxiety disorder, unspecified; F90.9 Attention-deficit hyperactivity disorder, unspecified type; F17.200 Nicotine dependence, unspecified, uncomplicated; Z79.51 Long term (current) use of inhaled steroids; Z79.899 Other long term (current) drug therapy; Z88.0 Allergy status to penicillin
CPT/HCPCS: 99283; 96374; 96375 ×3; J1200; J2765; J1885; J1170

== ENCOUNTER → 2017-07-12 | Outpatient (CLI) | payer MEDICARE, OTHER ==
[2017-07-12 12:02] VITALS: BP 118/59; PULSE 75; RESP 16
--- NOTE | 2017-07-12 12:22 | P.PN ---
Progress Note - Text Progress Note Date: 07/12/17 This is a 52-year-old female with chronic history of neck pain status post Arnold-Chiari malformation repair by the posterior cervical approach about 17 years ago. The patient's pain starts in the occipital area and radiates down to both shoulders and also down the left arm with numbness and tingling in the left. She had 2 cervical epidural steroid injections with very short lived benefits up to 1 or 2 weeks after each injection.Her pain gets worse with movement of her neck especially left rotation. The patient is still takes Dilaudid 4 mg 3 times a day. She is alert oriented 3 in no apparent distress and no change in the neurologic exam from her last visit. I will schedule the patient to have cervical medial branch block for levels C2, C3, and third occipital nerve bilaterally under fluoroscopic guidance as diagnostic procedure for her cervicogenic headache. If she gets more than 50% of pain improvement then we can plan on doing radiofrequency ablation on the medial branches in the future. I reviewed the last cervical spine MRI and it seems that there is no bone defect in the occiput or the cervical spine status post Arnold-Chiari malformation repair. PQRS measures: 1-Patient's medications are documented in the chart. 2-Tobacco use is positive, counseling given 3-Patient has not had a pneumococcal vaccine. 4-Advanced care planning discussed, patient unable to give 5-Opioid contract signed with the patient. 6-Pain positive, follow-up visit or procedure scheduled 7-Patient's blood pressure measured and documented within normal limits. 8-Patient's weight was measured, and body mass index ABOVE the normal limits, and counseling was done. Patient instructed to follow up with PCP. 9-Patient WAS NOT identified as an unhealthy alcohol user.
== END | disposition home or self-care (01) ==
LOC: PNWHC3 11:47
PROVIDERS: ATTEND Anesthesiology
DX: M50.30 Other cervical disc degeneration, unspecified cervical region (principal); R20.0 Anesthesia of skin; R20.2 Paresthesia of skin
CPT/HCPCS: 80307; G0480 ×2; G0463; 80356; 80364; 99211

== ENCOUNTER 2017-07-19 09:29 | Day surgery (SDC) | payer MEDICARE, OTHER ==
[2017-07-19 09:57] VITALS: TEMP 98.7
[2017-07-19 09:58] LABS: Glucose,Whole Blood 98 mg/dL (75-99)
[2017-07-19] MEDS ORDERED: LIDOCAINE 1% 20 ML VIAL (10MG/ML) FOR IV START INTRADERMA ONE (10:00)
--- NOTE | 2017-07-19 10:43 | P.PCN ---
Date of Procedure: 07/19/17 Preoperative Diagnosis: Cervicogenic headache Status post Arnold-Chiari malformation surgical decompression Postoperative Diagnosis: Same as above Procedure(s) Performed: Cervical medial branch block bilaterally under fluoroscopic guidance for C2, C3 and third occipital nerve Anesthesia: MAC (Conscious sedation with IV Versed and fentanyl) Surgeon: Carie Velasquez Pathology: none sent Condition: stable Disposition: PACU Description of Procedure: The patient was seen and identified in the preoperative area. Risks, benefits, complications, and alternatives were discussed with the patient, the patient agreed to proceed with the procedure and signed the consent. IV was started. Vital signs remained stable throughout the procedure. Patient was taken to the OR and time out was completed. The patient was placed in the supine position on the procedure table. . The cervical area was prepped with chloraprep and draped in the usual sterile fashion. Critical pause was taken. Vital signs were closely monitored during the procedure. Conscious sedation was used during the procedure to decrease patients anxiety. The lateral view of fluoroscopy was used to identify the C2 and C3 trapezoid shaped cervical articular pillars at the target points were the center of the articular pillars . I used 25-gauge 3-1/2 inch Quincke spinal needle to go through the skin after localizing it with lidocaine 1% and to contact the bone at the above-mentioned target point then the AP view of fluoroscopy was used to verify needle position at the waist of the C2 and C3 vertebral bodies laterally. For the 3rd occipital nerve the target point was at the center of the C2-C3 joint and bilaterally . after contacting bone at the target points mentioned above I injected 0.25 MLS of a solution made up off 3 ml of preservative-free Bupivacaine 0.5% mixed with Dexamethasone 10 mg and half ml of the mixture was injected at each level after negative aspiration for blood and CSF. Hancock were then removed intact the same procedure was repeated on the left side. COMPLICATIONS: No acute complications. COMMENTS: DISPOSITION / PLANS: The patient was placed in a supine position and transferred to the recovery area in a stable condition for observation and was discharged from the recovery room after meeting discharge criteria. Home discharge instructions given to the patient by the staff. The patient was reexamined prior to discharge. The patient will be scheduled for a repeat of this injection in 2-4 weeks.
[2017-07-19] MEDS ORDERED: IV FLUID CONTINUATION 1,000 ML IV ONE (10:52)
[2017-07-19 10:54] VITALS: RESP 16
[2017-07-19 11:07] VITALS: BP 99/59; PULSE 70
--- NOTE | 2017-07-19 13:18 | FL ---
EXAMINATION TYPE: FL guided pain mgmt statistic DATE OF EXAM: 07/19/2017 FLUOROSCOPY Fluoroscopy time of 7 seconds was used during bilateral cervical facet injections. No image/s docume nt/s the procedure.
== END 2017-07-19 11:39 | disposition home or self-care (01) ==
LOC: ORPAIN 09:29
PROVIDERS: ATTEND Anesthesiology
DX: R51 Headache (principal); Z86.69 Personal history of other diseases of the nervous system and sense organs; Z98.890 Other specified postprocedural states
CPT/HCPCS: 64490; 64491; J2250; J1100; J3010; 99152

== ENCOUNTER 2017-08-24 08:14 | Day surgery (SDC) | payer MEDICARE, OTHER ==
[2017-08-17 11:22] VITALS: BMI 27.4
[2017-08-24] MEDS ORDERED: LIDOCAINE 1% 20 ML VIAL (10MG/ML) FOR IV START INTRADERMA ONE (08:30)
[2017-08-24] MEDS ORDERED: IV FLUID CONTINUATION 750 ML IV ONE (09:48)
--- NOTE | 2017-08-24 10:56 | FL ---
EXAMINATION TYPE: FL guided pain mgmt statistic DATE OF EXAM: 08/24/2017 COMPARISON: NONE HISTORY: Cervical spine pain TECHNIQUE: Fluoroscopy. FINDINGS/IMPRESSION: Fluoroscopic guidance was provided during procedure performed by Dr. Castanon. A total of 21seconds of fluoroscopic time was utilized during the procedure and 8 spot images was acq uired demonstrating localization and multiple cervical levels..
--- NOTE | 2017-08-24 11:26 | P.PCN ---
Date of Procedure: 08/24/17 Procedure(s) Performed: PREOPERATIVE DIAGNOSIS: cervicogenic headache POSTOPERATIVE DIAGNOSIS: same as pre op diagnosis PROCEDURES: Diagnostic bilateral C2-3 , C3-4 medial branch blocks, with fluoroscopic guidance. diagnostic bilateral 3rd occipital nerve Block under Fluroscopy guidence . ANESTHESIA: Local with 1% lidocaine 6 ml , moderate sedation with Versed. 3 mg , and fentanyl 100 micrograms EBL: Minimal PROCEDURE INDICATION: The patient with neck pain and headaches unresponsive to conservative treatments. PROCEDURE DESCRIPTION / TECHNIQUE: The patient was seen and identified in the preoperative area. Risks, benefits, complications, and alternatives were discussed with the patient, the patient agreed to proceed with the procedure and signed the consent. IV was started. Vital signs remained stable throughout the procedure. Patient was taken to the OR and time out was completed. The patient was placed in the prone position on the procedure table. A pillow was placed under the patients chest to increase the cervical interlaminar space. The cervical area was prepped and draped in the usual sterile fashion. Critical pause was taken. Vital signs were closely monitored during the procedure. Conscious sedation was used during the procedure to decrease patients anxiety. Using cross-table lateral fluoroscopy, the centroid of the trapezoid of right C2 , C3, was identified, marked, and localized with 1% lidocaine 1 ml at each level for skin and Sub Q infiltrations . Subsequently, a 22 G 2 spinal needle was advanced guided by fluoroscopy to the centroid of the trapezoid of Right C2 ,C3, . Enochs tip position was confirmed at the centroid of the trapezoids of Right C2 , C3 with anteroposterior fluoroscopy. Subsequently, 1 ml of preservative-free Bupivacaine 0.5% mixed with Dexamethasone 10 mg and half ml of the mixture was injected after negative aspiration for blood and CSF. Enochs was then removed intact the same procedure was repeated at the left C2-3 ,C3-4,levels. Third occipital nerve block 22-gauge needle placed at the center of the facet joint C2 and C3 first we did the right side and after needle placement confirmed with AP and lateral view within Marcaine 0.5% half mL injected , after negative aspirations ,and the same procedures done for the left side COMPLICATIONS: No acute complications. COMMENTS: DISPOSITION / PLANS: The patient was placed in a supine position and transferred to the recovery area in a stable condition for observation and was discharged from the recovery room after meeting discharge criteria. Home discharge instructions given to the patient by the staff. The patient was reexamined prior to discharge. The patient will schedule a follow up in the clinic in 2-4 weeks.
[2017-08-25 22:57] VITALS: BP 126/60; PULSE 68; RESP 18; TEMP 97.4
== END 2017-08-24 10:30 | disposition home or self-care (01) ==
LOC: ORPAIN 08:14
PROVIDERS: ATTEND Specialist
DX: R51 Headache (principal); M54.2 Cervicalgia; J44.9 Chronic obstructive pulmonary disease, unspecified; Z88.0 Allergy status to penicillin
CPT/HCPCS: 64450 ×2; 64490; 64491; J2250; J1100; J3010; 99152

== ENCOUNTER 2017-09-15 14:26 | Emergency (ER) | payer MEDICARE, OTHER ==
--- NOTE | 2017-09-15 15:20 | ED ---
URI HPI - General Chief Complaint: Upper Respiratory Infection Stated Complaint: cough/chest congestion Time Seen by Provider: 09/15/17 15:01 Source: patient Mode of arrival: ambulatory Limitations: no limitations - History of Present Illness Initial Comments: This is a 52 year old female who presents with a chief complaint of right ear pain, cough, and congestion which began one day ago. She states that she is a smoker and has also been around others that have "the flu". The patient is concerned she has pneumonia due to having a history of pneumonia years ago. She denies sputum production, fever, but states she has felt "achy" since yesterday. - Related Data Home Medications Medication Instructions Recorded Confirmed Albuterol Inhaler [Ventolin Hfa 1 puff INHALATION RT-QID PRN 12/21/13 08/17/17 Inhaler] Loratadine 10 mg PO QAM 01/10/14 08/17/17 Ezetimibe [Zetia] 10 mg PO HS 09/05/14 08/17/17 Ranitidine HCl 75 mg PO HS 07/17/15 08/17/17 Fluticasone Propionate 1 spray EA NOSTRIL BID 11/25/15 08/17/17 Citalopram Hydrobromide [CeleXA] 40 mg PO QAM 12/10/15 08/17/17 Methylphenidate HCl [Ritalin] 20 mg PO TID 12/10/15 08/17/17 OXcarbazepine [Trileptal] 600 mg PO BID 12/10/15 08/17/17 Levothyroxine Sodium [Synthroid] 25 mcg PO DAILY 03/13/16 08/17/17 Atorvastatin [Lipitor] 10 mg PO HS 07/20/16 08/17/17 Simethicone [Gas-X] 125 mg PO Q8H PRN 10/19/16 08/17/17 Dicyclomine [Bentyl] 10 mg PO BID PRN 11/13/16 08/17/17 Omeprazole 40 mg PO HS 11/13/16 08/17/17 traZODone HCL 50 mg PO HS 11/13/16 08/17/17 Estradiol [Estrace] 0.5 mg PO DAILY 02/03/17 08/17/17 clonazePAM [KlonoPIN] 0.5 mg PO BID PRN 05/03/17 08/24/17 Varenicline [Chantix] 1 mg PO BID 05/27/17 08/17/17 Ibuprofen [Motrin] 800 mg PO Q8HR PRN 07/05/17 08/17/17 Menthol [Biofreeze] 1 applic TOPICAL QID PRN 07/05/17 08/17/17 busPIRone HCL [Buspar] 30 mg PO BID 07/05/17 08/24/17 Previous Rx's Medication Instructions Recorded Cyclobenzaprine [Flexeril] 10 mg PO BID PRN #60 tab 06/28/17 HYDROmorphone HCL [Dilaudid] 4 mg PO Q8HR PRN #90 tab 06/28/17 Allergies Allergy/AdvReac Type Severity Reaction Status Date / Time Penicillins Allergy Rash/Hives Verified 09/15/17 14:35 Review of Systems ROS Statement: Those systems with pertinent positive or pertinent negative responses have been documented in the HPI. ROS Other: All systems not noted in ROS Statement are negative. Past Medical History Past Medical History: Asthma, COPD, GERD/Reflux, Hyperlipidemia, Musculoskeletal Disorder, Syncope, Thyroid Disorder Additional Past Medical History / Comment(s): Nephrolithiasis with sx, hypoglycemia chronic neck and L shoulder pain- DDD, DJD, hx L facial and L ankle fxs, sinus problems, vertigo, falls in past. 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 Bunionectomies , surgery for L fx foot-alix place & removed, lithotripsey and stent placed and removed, laser eye surgery bilaterally, EGD, Colonoscopy. PAIN clinic procedures. Rectocele in Aug 2015. Past Anesthesia/Blood Transfusion Reactions: Previous Problems w/ Anesthesia Additional Past Anesthesia/Blood Transfusion Reaction / Comment(s): Takes longer to wake up from anesthesia. Past Psychological History: ADD/ADHD, Anxiety, Depression Smoking Status: Current every day smoker Past Alcohol Use History: None Reported Past Drug Use History: None Reported - Past Family History Mother Family Medical History: Cancer, Thyroid Disorder Additional Family Medical History / Comment(s): Mother of LUNG cancer at age 64 yrs. Father Family Medical History: Asthma, COPD, Osteoarthritis (OA) Additional Family Medical History / Comment(s): Father at age 80 yrs. General Exam Limitations: no limitations General appearance: alert, in no apparent distress Head exam: Present: atraumatic, normocephalic, normal inspection Eye exam: Present: normal appearance, PERRL, EOMI. Absent: scleral icterus, conjunctival injection, periorbital swelling ENT exam: Present: TM's normal bilaterally, normal external ear exam, other ( Right ear canal appears erythematous.) Respiratory exam: Present: normal lung sounds bilaterally, wheezes, chest wall tenderness (Right chest wall tenderness noted.). Absent: respiratory distress, rales, rhonchi, stridor Cardiovascular Exam: Present: regular rate, normal rhythm, normal heart sounds. Absent: systolic murmur, diastolic murmur, rubs, gallop, clicks Neurological exam: Present: alert, oriented X3, CN II-XII intact Psychiatric exam: Present: normal affect, normal mood Skin exam: Present: warm, dry, intact, normal color. Absent: rash Course Vital Signs 09/15/17 09/15/17 14:33 15:31 Temperature 98.1 F Pulse Rate 74 Respiratory 20 20 Rate Blood Pressure 109/58 O2 Sat by Pulse 98 Oximetry Medical Decision Making - Medical Decision Making This is a 52 year old female who presents with a cough, congestion and right ear pain. Chest x-rays were negative for pneumonia and influenza swab was negative. She was given a diagnosis of an upper respiratory infection. Smoking cessation was discussed. The patient will be discharged home and was instructed to increase fluid intake and rest. - Lab Data Lab Results 09/15/17 Range/Units 15:10 Influenza Type A RNA Not Detected (Not Detectd) Influenza Type B (PCR) Not Detected (Not Detectd) Disposition Clinical Impression: Upper respiratory infection Disposition: HOME SELF-CARE Condition: Stable Instructions: Upper Respiratory Infection (ED) Additional Instructions: Please return to the Emergency Department if symptoms worsen or any other concerns. Referrals: Ihasn Ding DO [Primary Care Provider] - 1-2 days Time of Disposition: 16:01
--- NOTE | 2017-09-15 15:52 | XR ---
EXAMINATION TYPE: XR chest 2V DATE OF EXAM: 09/15/2017 COMPARISON: 05/17/2015 INDICATION: Cough, pain, congestion TECHNIQUE: Frontal and lateral views of the chest are obtained. FINDINGS: The heart size is normal. The pulmonary vasculature is normal. The lungs are clear. IMPRESSION: 1. No acute pulmonary process.
[2017-09-15 16:15] VITALS: BP 140/78; PULSE 84; RESP 16; TEMP 98.5
== END 2017-09-15 16:13 | disposition home or self-care (01) ==
LOC: EC 14:26
DX: J06.9 Acute upper respiratory infection, unspecified (principal); H92.01 Otalgia, right ear; J44.1 Chronic obstructive pulmonary disease with (acute) exacerbation; K21.9 Gastro-esophageal reflux disease without esophagitis; E78.5 Hyperlipidemia, unspecified; E07.9 Disorder of thyroid, unspecified; F32.9 Major depressive disorder, single episode, unspecified; F41.9 Anxiety disorder, unspecified; F90.9 Attention-deficit hyperactivity disorder, unspecified type; F17.200 Nicotine dependence, unspecified, uncomplicated; Z79.51 Long term (current) use of inhaled steroids; Z79.899 Other long term (current) drug therapy; Z88.0 Allergy status to penicillin
CPT/HCPCS: 71046; 87502; 99283

== ENCOUNTER 2017-09-24 12:47 | Emergency (ER) | payer MEDICARE, OTHER ==
[2017-09-24] MEDS ORDERED: LEVOFLOXACIN 750 MG TAB PO STA (15:06)
[2017-09-24] MEDS ORDERED: IBUPROFEN 800 MG TAB PO STA (15:06)
[2017-09-24] MEDS ORDERED: IPRATROPIUM 0.5 MG/2.5 ML NEBU INHALATION STA (15:06)
[2017-09-24] MEDS ORDERED: ALBUTEROL NEBULIZED 2.5 MG/3 ML INHALATION STA (15:06)
[2017-09-24] MEDS ORDERED: ACET/COD 240MG/24MG LIQ 10 ML SYRG PO ONE (15:06)
[2017-09-24] MEDS ORDERED: DEXAMETHASONE SOD PHOSPHATE 10 MG/ML 1 ML VIAL IM STA (15:06)
[2017-09-24] MEDS ORDERED: ACETAMINOPHEN TAB 325 MG TAB PO STA (15:07)
[2017-09-24 15:24] VITALS: RESP 18
--- NOTE | 2017-09-24 15:30 | ED ---
General Adult HPI - General Chief complaint: Upper Respiratory Infection Stated complaint: Cough Time Seen by Provider: 09/24/17 14:58 Source: patient, RN notes reviewed, old records reviewed Mode of arrival: ambulatory Limitations: no limitations - History of Present Illness Initial comments: This is a 52-year-old female the ER for evaluation of cough and congestion. Patient has history of COPD and asthma. No history of smoking. Patient states she's been having difficulty breathing for about a week, episodic. She is not to breathing treatments at home. No modifying factors or treatment. Patient has no chest pain, no fevers no recent travel history or sick contacts - Related Data Home Medications Medication Instructions Recorded Confirmed Albuterol Inhaler [Ventolin Hfa 1 puff INHALATION RT-QID PRN 12/21/13 09/27/17 Inhaler] Loratadine 10 mg PO QAM 01/10/14 09/27/17 Ezetimibe [Zetia] 10 mg PO HS 09/05/14 09/27/17 Fluticasone Propionate 1 spray EA NOSTRIL BID 11/25/15 09/27/17 Citalopram Hydrobromide [CeleXA] 40 mg PO QAM 12/10/15 09/27/17 Methylphenidate HCl [Ritalin] 20 mg PO TID 12/10/15 09/27/17 OXcarbazepine [Trileptal] 600 mg PO BID 12/10/15 09/27/17 Levothyroxine Sodium [Synthroid] 25 mcg PO DAILY 03/13/16 09/27/17 Atorvastatin [Lipitor] 10 mg PO HS 07/20/16 09/27/17 Simethicone [Gas-X] 125 mg PO Q8H PRN 10/19/16 09/27/17 Dicyclomine [Bentyl] 10 mg PO BID PRN 11/13/16 09/27/17 Omeprazole 40 mg PO HS 11/13/16 09/27/17 traZODone HCL 50 mg PO HS 11/13/16 09/27/17 Estradiol [Estrace] 0.5 mg PO DAILY 02/03/17 09/27/17 clonazePAM [KlonoPIN] 0.5 mg PO BID PRN 05/03/17 09/27/17 Varenicline [Chantix Continuing 1 mg PO BID 05/27/17 09/27/17 Pack] busPIRone HCL [Buspar] 30 mg PO BID 07/05/17 09/27/17 Naproxen 500 mg PO BID 09/27/17 09/27/17 Previous Rx's Medication Instructions Recorded Cyclobenzaprine [Flexeril] 10 mg PO BID PRN #60 tab 06/28/17 HYDROmorphone HCL [Dilaudid] 4 mg PO Q8HR PRN #90 tab 06/28/17 Benzonatate [Tessalon Perles] 100 mg PO TID PRN #15 capsule 09/24/17 Budesonide [Pulmicort] 0.5 mg INHALATION BID #1 neb 09/30/17 CHLORPHEN-HYDROcod 8-10mg/5ml 5 ml PO Q12H #70 ml 09/30/17 [Tussionex] Doxycycline [Vibramycin] 100 mg PO BID #28 cap 09/30/17 Ipratropium-Albuterol Nebulize 3 ml INHALATION QID #1 neb 09/30/17 [Duoneb 0.5 mg-3 mg/3 ml Soln] predniSONE See Taper PO DIRECTED #30 tab 09/30/17 Allergies Allergy/AdvReac Type Severity Reaction Status Date / Time Penicillins Allergy Rash/Hives Verified 09/27/17 20:17 Review of Systems ROS Statement: Those systems with pertinent positive or pertinent negative responses have been documented in the HPI. ROS Other: All systems not noted in ROS Statement are negative. Past Medical History Past Medical History: Asthma, COPD, GERD/Reflux, Hyperlipidemia, Musculoskeletal Disorder, Osteoarthritis (OA), Syncope, Thyroid Disorder Additional Past Medical History / Comment(s): KIDNEY STONES, hypoglycemia chronic neck and L shoulder pain- CHRONIC LOWER BACK PAIN hx L facial and L ankle fxs, sinus problems, vertigo, falls in past. 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 Bunionectomies , surgery for L fx foot-alix place & removed, lithotripsey and stent placed and removed, laser eye surgery bilaterally, EGD, Colonoscopy. PAIN clinic procedures. Rectocele repair Past Anesthesia/Blood Transfusion Reactions: Previous Problems w/ Anesthesia Additional Past Anesthesia/Blood Transfusion Reaction / Comment(s): "Takes longer to wake up from anesthesia." Past Psychological History: ADD/ADHD, Anxiety, Depression Smoking Status: Current every day smoker Past Alcohol Use History: None Reported Past Drug Use History: None Reported - Past Family History Mother Family Medical History: Cancer, Thyroid Disorder Additional Family Medical History / Comment(s): Mother of LUNG cancer at age 64 yrs. Father Family Medical History: Asthma, COPD, Osteoarthritis (OA) Additional Family Medical History / Comment(s): Father at age 80 yrs. General Exam Limitations: no limitations General appearance: alert, in no apparent distress Head exam: Present: atraumatic, normocephalic, normal inspection Eye exam: Present: normal appearance, PERRL, EOMI. Absent: scleral icterus, conjunctival injection, periorbital swelling ENT exam: Present: normal exam, mucous membranes moist Neck exam: Present: normal inspection. Absent: tenderness, meningismus, lymphadenopathy Respiratory exam: Present: normal lung sounds bilaterally, wheezes. Absent: respiratory distress, rales, rhonchi, stridor Cardiovascular Exam: Present: regular rate, normal rhythm, normal heart sounds. Absent: systolic murmur, diastolic murmur, rubs, gallop, clicks GI/Abdominal exam: Present: soft, normal bowel sounds. Absent: distended, tenderness, guarding, rebound, rigid Extremities exam: Present: normal inspection, full ROM, normal capillary refill. Absent: tenderness, pedal edema, joint swelling, calf tenderness Back exam: Present: normal inspection Neurological exam: Present: alert, oriented X3, CN II-XII intact Psychiatric exam: Present: normal affect, normal mood Skin exam: Present: warm, dry, intact, normal color. Absent: rash Course Vital Signs 09/24/17 09/24/17 09/24/17 13:00 15:22 15:34 Temperature 98.8 F Pulse Rate 75 78 78 Respiratory 20 18 Rate Blood Pressure 134/62 O2 Sat by Pulse 99 Oximetry 09/24/17 15:58 Temperature 98.3 F Pulse Rate 87 Respiratory 18 Rate Blood Pressure 111/59 O2 Sat by Pulse 98 Oximetry Medical Decision Making - Medical Decision Making 52 female the ER with bronchitis, history of smoking, patient will be treated outpatient, she is in no acute distress at this time feeling better like to be discharged home - Radiology Data Radiology results: report reviewed (Chest x-ray is negative for acute disease), image reviewed Disposition Clinical Impression: Upper respiratory infection, Acute bronchitis Disposition: HOME SELF-CARE Condition: Good Instructions: Acute Bronchitis (ED), COPD (Chronic Obstructive Pulmonary Disease) (ED) Prescriptions: Benzonatate [Tessalon Perles] 100 mg PO TID PRN #15 capsule PRN Reason: Cough Referrals: Ihsan Ding DO [Primary Care Provider] - 1-2 days
--- NOTE | 2017-09-24 15:36 | XR ---
EXAMINATION TYPE: XR chest 1V portable DATE OF EXAM: 09/24/2017 COMPARISON: Prior chest x-ray 09/15/2017 HISTORY: Cough, congestion and shortness of breath TECHNIQUE: Single frontal view of the chest is obtained. FINDINGS: There is no focal air space opacity, pleural effusion, or pneumothorax seen. The cardiac silhouette size is within normal limits. The patient is rotated. The osseous structures are intact. IMPRESSION: No acute process.
[2017-09-24 15:58] VITALS: BP 111/59; PULSE 87; TEMP 98.3
== END 2017-09-24 16:00 | disposition home or self-care (01) ==
LOC: EC 12:47
DX: J06.9 Acute upper respiratory infection, unspecified (principal); J20.9 Acute bronchitis, unspecified; J44.9 Chronic obstructive pulmonary disease, unspecified; K21.9 Gastro-esophageal reflux disease without esophagitis; E78.5 Hyperlipidemia, unspecified; E07.9 Disorder of thyroid, unspecified; M19.90 Unspecified osteoarthritis, unspecified site; F90.9 Attention-deficit hyperactivity disorder, unspecified type; F41.9 Anxiety disorder, unspecified; F32.9 Major depressive disorder, single episode, unspecified; F17.200 Nicotine dependence, unspecified, uncomplicated; Z79.890 Hormone replacement therapy; Z79.51 Long term (current) use of inhaled steroids; Z79.899 Other long term (current) drug therapy; Z79.1 Long term (current) use of non-steroidal anti-inflammatories (NSAID); Z79.3 Long term (current) use of hormonal contraceptives; Z88.0 Allergy status to penicillin
CPT/HCPCS: 99284; 96372; 94640; 71045; J1100

== ENCOUNTER 2017-09-27 17:49 | Inpatient (IN) | payer MEDICARE, OTHER ==
[2017-09-27] MEDS ORDERED: methylPREDNISolone SOD SUCCI 125 MG/2 ML VIAL IV STA (20:10)
[2017-09-27] MEDS ORDERED: IPRATROPIUM-ALBUTEROL 3 ML NEB INHALATION STA ×2 (20:10→21:26)
--- NOTE | 2017-09-27 20:31 | ED ---
General Adult HPI - General Source: patient Mode of arrival: ambulatory Limitations: no limitations <Vikki Sebastian - Last Filed: 09/27/17 22:49> <Monster Baugh - Last Filed: 10/01/17 21:35> - General Chief complaint: Upper Respiratory Infection Stated complaint: Cough Time Seen by Provider: 09/27/17 19:50 - History of Present Illness Initial comments: 52-year-old female patient presented to the emergency department today for complaints of increased cough and shortness of breath. Patient states that she was seen and evaluated here on Wednesday and diagnosed with acute bronchitis and COPD exacerbation. Patient was started on Levaquin, steroids, and has been using her inhaler without relief of symptoms. Patient states that she is short of breath with activity. She states she is coughing up green sputum. Patient states that she has been a smoker for many years, quit in the last 2 weeks. She denies any fevers or chills. States that when she coughs her chest does hurt, especially on the right side. Patient states she has used her inhaler multiple times today without relief. She states she called her primary care physician and told her to come back in here today for further evaluation. Patient denies any recent rash, abdominal pain, nausea, vomiting, diarrhea, constipation, back pain, numbness, tingling, dizziness, weakness, hematuria, dysuria, urinary urgency, urinary frequency, headache, visual changes, or any other complaints. (Vikki Sebastian) - Related Data Home Medications Medication Instructions Recorded Confirmed Albuterol Inhaler [Ventolin Hfa 1 puff INHALATION RT-QID PRN 12/21/13 09/27/17 Inhaler] Loratadine 10 mg PO QAM 01/10/14 09/27/17 Ezetimibe [Zetia] 10 mg PO HS 09/05/14 09/27/17 Fluticasone Propionate 1 spray EA NOSTRIL BID 11/25/15 09/27/17 Citalopram Hydrobromide [CeleXA] 40 mg PO QAM 12/10/15 09/27/17 Methylphenidate HCl [Ritalin] 20 mg PO TID 12/10/15 09/27/17 OXcarbazepine [Trileptal] 600 mg PO BID 12/10/15 09/27/17 Levothyroxine Sodium [Synthroid] 25 mcg PO DAILY 03/13/16 09/27/17 Atorvastatin [Lipitor] 10 mg PO HS 07/20/16 09/27/17 Simethicone [Gas-X] 125 mg PO Q8H PRN 10/19/16 09/27/17 Dicyclomine [Bentyl] 10 mg PO BID PRN 11/13/16 09/27/17 Omeprazole 40 mg PO HS 11/13/16 09/27/17 traZODone HCL 50 mg PO HS 11/13/16 09/27/17 Estradiol [Estrace] 0.5 mg PO DAILY 02/03/17 09/27/17 clonazePAM [KlonoPIN] 0.5 mg PO BID PRN 05/03/17 09/27/17 Varenicline [Chantix Continuing 1 mg PO BID 05/27/17 09/27/17 Pack] busPIRone HCL [Buspar] 30 mg PO BID 07/05/17 09/27/17 Naproxen 500 mg PO BID 09/27/17 09/27/17 Previous Rx's Medication Instructions Recorded Cyclobenzaprine [Flexeril] 10 mg PO BID PRN #60 tab 06/28/17 HYDROmorphone HCL [Dilaudid] 4 mg PO Q8HR PRN #90 tab 06/28/17 Benzonatate [Tessalon Perles] 100 mg PO TID PRN #15 capsule 09/24/17 Budesonide [Pulmicort] 0.5 mg INHALATION BID #1 neb 09/30/17 CHLORPHEN-HYDROcod 8-10mg/5ml 5 ml PO Q12H #70 ml 09/30/17 [Tussionex] Doxycycline [Vibramycin] 100 mg PO BID #28 cap 09/30/17 Ipratropium-Albuterol Nebulize 3 ml INHALATION QID #1 neb 09/30/17 [Duoneb 0.5 mg-3 mg/3 ml Soln] predniSONE See Taper PO DIRECTED #30 tab 09/30/17 Allergies Allergy/AdvReac Type Severity Reaction Status Date / Time Penicillins Allergy Rash/Hives Verified 09/27/17 20:17 Review of Systems ROS Other: All systems not noted in ROS Statement are negative. <Vikki Sebastian - Last Filed: 09/27/17 22:49> ROS Other: All systems not noted in ROS Statement are negative. <HansaMonster broussard - Last Filed: 10/01/17 21:35> ROS Statement: Those systems with pertinent positive or pertinent negative responses have been documented in the HPI. Past Medical History Past Medical History: Asthma, COPD, GERD/Reflux, Hyperlipidemia, Musculoskeletal Disorder, Osteoarthritis (OA), Syncope, Thyroid Disorder Additional Past Medical History / Comment(s): KIDNEY STONES, hypoglycemia chronic neck and L shoulder pain- CHRONIC LOWER BACK PAIN hx L facial and L ankle fxs, sinus problems, vertigo, falls in past. 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 Bunionectomies , surgery for L fx foot-alix place & removed, lithotripsey and stent placed and removed, laser eye surgery bilaterally, EGD, Colonoscopy. PAIN clinic procedures. Rectocele repair Past Anesthesia/Blood Transfusion Reactions: Previous Problems w/ Anesthesia Additional Past Anesthesia/Blood Transfusion Reaction / Comment(s): "Takes longer to wake up from anesthesia." Past Psychological History: ADD/ADHD, Anxiety, Depression Smoking Status: Current every day smoker Past Alcohol Use History: None Reported Past Drug Use History: None Reported - Past Family History Mother Family Medical History: Cancer, Thyroid Disorder Additional Family Medical History / Comment(s): Mother of LUNG cancer at age 64 yrs. Father Family Medical History: Asthma, COPD, Osteoarthritis (OA) Additional Family Medical History / Comment(s): Father at age 80 yrs. <Vikki Sebastian - Last Filed: 09/27/17 22:49> General Exam Limitations: no limitations General appearance: alert, in no apparent distress, other (This is a well- developed, well-nourished adult female patient in no acute distress. Vital signs upon presentation are temperature 96.7F, pulse 105, respirations 20, blood pressure 127/70, pulse ox 99% on room air.) Eye exam: Present: normal appearance, PERRL, EOMI. Absent: scleral icterus, conjunctival injection, periorbital swelling ENT exam: Present: normal exam, normal oropharynx, mucous membranes moist Respiratory exam: Present: normal lung sounds bilaterally, other (Course, congested cough noted recently did not exam). Absent: respiratory distress, wheezes, rales, rhonchi, stridor Cardiovascular Exam: Present: regular rate, normal rhythm, normal heart sounds. Absent: systolic murmur, diastolic murmur, rubs, gallop, clicks GI/Abdominal exam: Present: soft, normal bowel sounds. Absent: distended, tenderness, guarding, rebound, rigid Neurological exam: Present: alert, oriented X3, CN II-XII intact Psychiatric exam: Present: normal affect, normal mood Skin exam: Present: warm, dry, intact, normal color. Absent: rash <Vikki Sebastian - Last Filed: 09/27/17 22:49> Vital Signs 09/27/17 09/27/17 09/27/17 19:16 20:56 21:09 Temperature 96.7 F L Pulse Rate 105 H 88 92 Respiratory 20 Rate Blood Pressure 127/78 O2 Sat by Pulse 99 Oximetry 09/27/17 09/27/17 09/27/17 21:20 21:36 21:43 Temperature Pulse Rate 76 96 87 Respiratory 18 18 Rate Blood Pressure 130/73 130/73 O2 Sat by Pulse 100 100 Oximetry 09/27/17 09/27/17 09/28/17 21:47 22:34 00:02 Temperature Pulse Rate 96 93 95 Respiratory 19 19 Rate Blood Pressure 130/73 144/71 O2 Sat by Pulse 98 97 Oximetry 09/28/17 00:59 Temperature Pulse Rate 80 Respiratory 18 Rate Blood Pressure 137/72 O2 Sat by Pulse 97 Oximetry EKG Findings - EKG Comments: EKG Findings:: EKG obtained at 2037 shows normal sinus rhythm with a ventricular rate of 72, MA interval 206, QRS duration 94, QTC 416, QTC 455. No evidence of ST elevation or depression. <Vikki Sebastian - Last Filed: 09/27/17 22:49> Medical Decision Making - Lab Data Result diagrams: 09/27/17 20:31 09/27/17 20:31 - Radiology Data Radiology results: report reviewed, image reviewed <Vikki Sebastian - Last Filed: 09/27/17 22:49> - Lab Data Result diagrams: 09/28/17 07:24 09/30/17 06:56 <Monster Baugh - Last Filed: 10/01/17 21:35> - Medical Decision Making 52-year-old female patient presented to the emergency department today for complaints of cough and shortness of breath. Patient was seen and evaluated here on Wednesday and has failed outpatient treatment for COPD exacerbation. We' ll admit to Dr. Ding's service with the pulmonology consult. She'll be started on IV steroids and given updraft treatments. (Vikki Sebastian) I saw this patient in conjunction with the physician assistant winemaker. I performed independent history and physical exam. Agree with case management. (Monster Baugh) - Lab Data Lab Results 09/27/17 09/27/17 09/28/17 Range/Units 20:31 20:31 07:24 WBC 6.1 5.2 (3.8-10.6) k/uL RBC 4.29 4.24 (3.80-5.40) m/uL Hgb 12.4 11.8 (11.4-16.0) gm/dL Hct 36.7 35.6 (34.0-46.0) % MCV 85.5 83.9 (80.0-100.0) fL MCH 28.8 27.9 (25.0-35.0) pg MCHC 33.7 33.3 (31.0-37.0) g/dL RDW 13.0 12.8 (11.5-15.5) % Plt Count 279 262 (150-450) k/uL Neutrophils % 61 81 % Lymphocytes % 30 15 % Monocytes % 6 2 % Eosinophils % 0 0 % Basophils % 0 0 % Neutrophils # 3.7 4.2 (1.3-7.7) k/uL Lymphocytes # 1.8 0.8 L (1.0-4.8) k/uL Monocytes # 0.4 0.1 (0-1.0) k/uL Eosinophils # 0.0 0.0 (0-0.7) k/uL Basophils # 0.0 0.0 (0-0.2) k/uL Sodium 128 L (137-145) mmol/L Potassium 3.8 (3.5-5.1) mmol/L Chloride 94 L (98-107) mmol/L Carbon Dioxide 21 L (22-30) mmol/L Anion Gap 13 mmol/L BUN 10 (7-17) mg/dL Creatinine 0.70 (0.52-1.04) mg/dL Est GFR (MDRD) Af Amer >60 (>60 ml/min/1.73 sqM) Est GFR (MDRD) Non-Af >60 (>60 ml/min/1.73 sqM) Glucose 113 H (74-99) mg/dL POC Glucose (mg/dL) (75-99) mg/dL POC Glu [employer] ID Estimated [address] Glu mg/dL Hemoglobin A1c (4.0-6.0) % Calcium 9.1 (8.4-10.2) mg/dL Total Bilirubin 0.1 L (0.2-1.3) mg/dL AST 28 (14-36) U/L ALT 32 (9-52) U/L Alkaline Phosphatase 115 (38-126) U/L Total Protein 7.1 (6.3-8.2) g/dL Albumin 4.4 (3.5-5.0) g/dL Influenza Type A RNA (Not Detectd) Influenza Type B (PCR) (Not Detectd) 09/28/17 09/28/17 09/28/17 Range/Units 07:24 07:24 12:32 WBC (3.8-10.6) k/uL RBC (3.80-5.40) m/uL Hgb (11.4-16.0) gm/dL Hct (34.0-46.0) % MCV (80.0-100.0) fL MCH (25.0-35.0) pg MCHC (31.0-37.0) g/dL RDW (11.5-15.5) % Plt Count (150-450) k/uL Neutrophils % % Lymphocytes % % Monocytes % % Eosinophils % % Basophils % % Neutrophils # (1.3-7.7) k/uL Lymphocytes # (1.0-4.8) k/uL Monocytes # (0-1.0) k/uL Eosinophils # (0-0.7) k/uL Basophils # (0-0.2) k/uL Sodium 132 L (137-145) mmol/L Potassium 4.9 (3.5-5.1) mmol/L Chloride 96 L (98-107) mmol/L Carbon Dioxide 24 (22-30) mmol/L Anion Gap 12 mmol/L BUN 7 (7-17) mg/dL Creatinine 0.62 (0.52-1.04) mg/dL Est GFR (MDRD) Af Amer >60 (>60 ml/min/1.73 sqM) Est GFR (MDRD) Non-Af >60 (>60 ml/min/1.73 sqM) Glucose 152 H (74-99) mg/dL POC Glucose (mg/dL) 166 H (75-99) mg/dL POC Glu [employer] Ranger ID [address] Glu mg/dL 117 Hemoglobin A1c 5.7 (4.0-6.0) % Calcium 9.8 (8.4-10.2) mg/dL Total Bilirubin (0.2-1.3) mg/dL AST (14-36) U/L ALT (9-52) U/L Alkaline Phosphatase (38-126) U/L Total Protein (6.3-8.2) g/dL Albumin (3.5-5.0) g/dL Influenza Type A RNA (Not Detectd) Influenza Type B (PCR) (Not Detectd) 09/28/17 09/28/17 09/28/17 Range/Units 14:21 16:51 20:18 WBC (3.8-10.6) k/uL RBC (3.80-5.40) m/uL Hgb (11.4-16.0) gm/dL Hct (34.0-46.0) % MCV (80.0-100.0) fL MCH (25.0-35.0) pg MCHC (31.0-37.0) g/dL RDW (11.5-15.5) % Plt Count (150-450) k/uL Neutrophils % % Lymphocytes % % Monocytes % % Eosinophils % % Basophils % % Neutrophils # (1.3-7.7) k/uL Lymphocytes # (1.0-4.8) k/uL Monocytes # (0-1.0) k/uL Eosinophils # (0-0.7) k/uL Basophils # (0-0.2) k/uL Sodium (137-145) mmol/L Potassium (3.5-5.1) mmol/L Chloride (98-107) mmol/L Carbon Dioxide (22-30) mmol/L Anion Gap mmol/L BUN (7-17) mg/dL Creatinine (0.52-1.04) mg/dL Est GFR (MDRD) Af Amer (>60 ml/min/1.73 sqM) Est GFR (MDRD) Non-Af (>60 ml/min/1.73 sqM) Glucose (74-99) mg/dL POC Glucose (mg/dL) 166 H 170 H (75-99) mg/dL POC Glu [employer] [place] Polanco [address] Glu mg/dL Hemoglobin A1c (4.0-6.0) % Calcium (8.4-10.2) mg/dL Total Bilirubin (0.2-1.3) mg/dL AST (14-36) U/L ALT (9-52) U/L Alkaline Phosphatase (38-126) U/L Total Protein (6.3-8.2) g/dL Albumin (3.5-5.0) g/dL Influenza Type A RNA Not Detected (Not Detectd) Influenza Type B (PCR) Not Detected (Not Detectd) 09/29/17 09/29/17 09/29/17 Range/Units 02:19 07:09 11:06 WBC (3.8-10.6) k/uL RBC (3.80-5.40) m/uL Hgb (11.4-16.0) gm/dL Hct (34.0-46.0) % MCV (80.0-100.0) fL MCH (25.0-35.0) pg MCHC (31.0-37.0) g/dL RDW (11.5-15.5) % Plt Count (150-450) k/uL Neutrophils % % Lymphocytes % % Monocytes % % Eosinophils % % Basophils % % Neutrophils # (1.3-7.7) k/uL Lymphocytes # (1.0-4.8) k/uL Monocytes # (0-1.0) k/uL Eosinophils # (0-0.7) k/uL Basophils # (0-0.2) k/uL Sodium (137-145) mmol/L Potassium (3.5-5.1) mmol/L Chloride (98-107) mmol/L Carbon Dioxide (22-30) mmol/L Anion Gap mmol/L BUN (7-17) mg/dL Creatinine (0.52-1.04) mg/dL Est GFR (MDRD) Af Amer (>60 ml/min/1.73 sqM) Est GFR (MDRD) Non-Af (>60 ml/min/1.73 sqM) Glucose (74-99) mg/dL POC Glucose (mg/dL) 160 H 163 H 147 H (75-99) mg/dL POC Glu [employer] Ranger ID Terrie Andrews Ashley Smith, [address] Glu mg/dL Hemoglobin A1c (4.0-6.0) % Calcium (8.4-10.2) mg/dL Total Bilirubin (0.2-1.3) mg/dL AST (14-36) U/L ALT (9-52) U/L Alkaline Phosphatase (38-126) U/L Total Protein (6.3-8.2) g/dL Albumin (3.5-5.0) g/dL Influenza Type A RNA (Not Detectd) Influenza Type B (PCR) (Not Detectd) 09/29/17 Range/Units 17:36 WBC (3.8-10.6) k/uL RBC (3.80-5.40) m/uL Hgb (11.4-16.0) gm/dL Hct (34.0-46.0) % MCV (80.0-100.0) fL MCH (25.0-35.0) pg MCHC (31.0-37.0) g/dL RDW (11.5-15.5) % Plt Count (150-450) k/uL Neutrophils % % Lymphocytes % % Monocytes % % Eosinophils % % Basophils % % Neutrophils # (1.3-7.7) k/uL Lymphocytes # (1.0-4.8) k/uL Monocytes # (0-1.0) k/uL Eosinophils # (0-0.7) k/uL Basophils # (0-0.2) k/uL Sodium (137-145) mmol/L Potassium (3.5-5.1) mmol/L Chloride (98-107) mmol/L Carbon Dioxide (22-30) mmol/L Anion Gap mmol/L BUN (7-17) mg/dL Creatinine (0.52-1.04) mg/dL Est GFR (MDRD) Af Amer (>60 ml/min/1.73 sqM) Est GFR (MDRD) Non-Af (>60 ml/min/1.73 sqM) Glucose (74-99) mg/dL POC Glucose (mg/dL) 147 H (75-99) mg/dL POC Glu [employer] Ranger ID [address]ney [address] Glu mg/dL Hemoglobin A1c (4.0-6.0) % Calcium (8.4-10.2) mg/dL Total Bilirubin (0.2-1.3) mg/dL AST (14-36) U/L ALT (9-52) U/L Alkaline Phosphatase (38-126) U/L Total Protein (6.3-8.2) g/dL Albumin (3.5-5.0) g/dL Influenza Type A RNA (Not Detectd) Influenza Type B (PCR) (Not Detectd) - Radiology Data Two-view x-ray of the chest shows no focal airspace opacity, pleural effusion, or pneumothorax. The cardiac silhouette size is within normal limits. The osseous structures are intact. Mild acromioclavicular arthropathy and degenerative changes of the thoracic spine are noted. Impression by Dr. Ulrich shows no acute cardiopulmonary process, unchanged from the prior 09/24/2017. ( Vikki Sebastian) Disposition Decision to Admit Reason: Admit from EC Decision Date: 09/27/17 Decision Time: 22:43 <Vikki Sebastian - Last Filed: 09/27/17 22:49> <Monster Baugh - Last Filed: 10/01/17 21:35> Clinical Impression: COPD exacerbation Disposition: ADMITTED IP TO THIS HOSP Condition: Stable
[2017-09-27 20:41] LABS: Basophils % (A) 0 %; Eosinophils % (A) 0 %; HCT 36.7 % (34.0-46.0); HGB 12.4 gm/dL (11.4-16.0); Lymphocytes # (A) 1.8 k/uL (1.0-4.8); Lymphocytes % (A) 30 %; MCH 28.8 pg (25.0-35.0); MCHC 33.7 g/dL (31.0-37.0); MCV 85.5 fL (80.0-100.0); Mean Platelet Volume 6.8; Monocytes # (A) 0.4 k/uL (0-1.0); Monocytes % (A) 6 %; Neutrophils # (A) 3.7 k/uL (1.3-7.7); Neutrophils % (A) 61 %; Platelet Count 279 k/uL (150-450); RBC 4.29 m/uL (3.80-5.40); WBC 6.1 k/uL (3.8-10.6)
[2017-09-27 20:55] LABS: ALT 32 U/L (9-52); AST 28 U/L (14-36); Albumin 4.4 g/dL (3.5-5.0); Alkaline Phosphatase 115 U/L (38-126); Anion Gap 13 mmol/L; Blood Urea Nitrogen 10 mg/dL (7-17); Calcium 9.1 mg/dL (8.4-10.2); Carbon Dioxide 21 mmol/L (22-30); Chloride 94 mmol/L (98-107); Glucose 113 mg/dL (74-99); Potassium 3.8 mmol/L (3.5-5.1); Sodium 128 mmol/L (137-145); Total Bilirubin 0.1 mg/dL (0.2-1.3); Total Protein 7.1 g/dL (6.3-8.2)
--- NOTE | 2017-09-27 21:02 | XR ---
EXAMINATION TYPE: XR chest 2V DATE OF EXAM: 09/27/2017 COMPARISON: 09/24/2017 HISTORY: Cough. Recent bronchitis. TECHNIQUE: Frontal and lateral views of the chest are obtained. FINDINGS: There is no focal air space opacity, pleural effusion, or pneumothorax seen. The cardiac silhouette size is within normal limits. The osseous structures are intact. Mild acromioclavicular arthropathy and degenerative changes of the thoracic spine are noted. IMPRESSION: No acute cardiopulmonary process, unchanged from the prior of 09/24/2017.
[2017-09-27] MEDS ORDERED: CHLORPHEN-HYDROcod 8-10mg/5ml 5 ML ORAL.SYRG PO STA (21:18)
[2017-09-27] MEDS ORDERED: LORazepam 2 MG/ML INJ IV STA (22:30)
[2017-09-27] MEDS ORDERED: NALOXONE 0.4 MG/ML 1 ML VIAL IV PRN (22:37)
[2017-09-27] MEDS ORDERED: IPRATROPIUM-ALBUTEROL 3 ML NEB INHALATION PRN (22:42)
[2017-09-27] MEDS ORDERED: HYDROmorphone 2 MG/ML 1 ML SYRINGE IVP STA (23:54)
[2017-09-27] MEDS ORDERED: HYDROmorphone 4 MG/ML 1 ML SYRINGE IVP STA (23:55)
[2017-09-28] MEDS: IPRATROPIUM-ALBUTEROL 3 ML NEB INHALATION SCH ×6 (00:03→19:19)
[2017-09-28] MEDS: methylPREDNISolone SOD SUCCI 125 MG/2 ML VIAL IV SCH ×4 (01:50→23:16)
[2017-09-28 03:13] VITALS: BMI 28.3
[2017-09-28 07:43] LABS: Basophils % (A) 0 %; Eosinophils % (A) 0 %; HCT 35.6 % (34.0-46.0); HGB 11.8 gm/dL (11.4-16.0); Lymphocytes # (A) 0.8 k/uL (1.0-4.8); Lymphocytes % (A) 15 %; MCH 27.9 pg (25.0-35.0); MCHC 33.3 g/dL (31.0-37.0); MCV 83.9 fL (80.0-100.0); Mean Platelet Volume 6.8; Monocytes # (A) 0.1 k/uL (0-1.0); Monocytes % (A) 2 %; Neutrophils # (A) 4.2 k/uL (1.3-7.7); Neutrophils % (A) 81 %; Platelet Count 262 k/uL (150-450); RBC 4.24 m/uL (3.80-5.40); RDW 12.8 % (11.5-15.5); WBC 5.2 k/uL (3.8-10.6)
[2017-09-28 07:59] LABS: Anion Gap 12 mmol/L; Blood Urea Nitrogen 7 mg/dL (7-17); Calcium 9.8 mg/dL (8.4-10.2); Carbon Dioxide 24 mmol/L (22-30); Chloride 96 mmol/L (98-107); Glucose 152 mg/dL (74-99); Potassium 4.9 mmol/L (3.5-5.1); Sodium 132 mmol/L (137-145)
[2017-09-28] MEDS: CHLORPHEN-HYDROcod 8-10mg/5ml 5 ML ORAL.SYRG PO SCH ×2 (08:33→21:03)
[2017-09-28] MEDS ORDERED: CYCLOBENZAPRINE 10 MG TAB PO PRN (10:05)
[2017-09-28] MEDS ORDERED: ALBUTEROL NEBULIZED 2.5 MG/3 ML INHALATION PRN (10:05)
[2017-09-28] MEDS: HYDROmorphone 4 MG TABLET PO PRN ×2 (10:42→19:28)
[2017-09-28] MEDS: CITALOPRAM HYDROBROMIDE 20 MG TAB PO SCH (10:47)
[2017-09-28] MEDS: METHYLPHENIDATE HCL 10 MG TAB PO SCH ×3 (10:47→20:40)
[2017-09-28] MEDS: VARENICLINE 1 MG TAB PO SCH ×2 (10:47→17:47)
[2017-09-28] MEDS: busPIRone HCl 10 MG TAB PO SCH ×2 (10:47→20:41)
[2017-09-28] MEDS: OXcarbazepine 300 MG TAB PO SCH ×2 (10:47→20:43)
[2017-09-28] MEDS: ESTRADIOL 0.5 MG TAB PO SCH (10:47)
[2017-09-28] MEDS: LEVOTHYROXINE 25 MCG TAB PO SCH (10:48)
[2017-09-28] MEDS: LORATADINE 10 MG TAB PO SCH (10:48)
--- NOTE | 2017-09-28 12:19 | P.HPIM ---
History of Present Illness H&P Date: 09/28/17 Chief Complaint: Shortness of breath, cough 52-year-old female who presented to the emergency room with a chief complaint of shortness of breath and cough. Patient had presented to the emergency room on Sunday, September 24, 2017 with similar symptoms. She was diagnosed with acute bronchitis and COPD exacerbation. The patient was started on Levaquin and steroids at that time. Patient states she has also been using her inhaler at home which has not provided improvement in her symptoms. Patient states she continues to be short of breath and has a persistent cough. Patient denies chest pain or pressure. Denies nausea or vomiting. Denies fever or chills. The patient has a history of COPD, asthma, hyperlipidemia, gastroesophageal reflux disease, osteoarthritis, hypothyroidism, and chronic lower back pain. She also has a history of ADD, anxiety, and depression. The patient has been a pack-a-day smoker for many years. She quit smoking approximately 2 weeks ago and has been on Chantix. Chest x-ray: No acute cardiopulmonary process, unchanged from previous x-ray on 09/24/2017 Laboratory data: WBC 6.1. Hemoglobin 12.4. Platelet count 279. Sodium 128. Potassium 3.8. BUN 10. Creatinine 0.70. The patient was admitted to the hospital under the care of Dr. Ding. Consultations were placed to pulmonary. Review of Systems GENERAL: Patient denies fever. Denies chills. EYES: Denies blurred vision. Denies vision changes. Denies eye pain. EARS, NOSE, MOUTH, & THROAT: Denies headache. Denies sore throat. Denies ear pain. RESPIRATORY: Positive for shortness of breath. Positive for coughing. Positive for sputum production. Denies hemoptysis. CARDIOVASCULAR: Denies chest pain or pressure. Denies palpitations. Denies arrhythmias. GASTROINTESTINAL: Denies abdominal pain. Denies diarrhea. Denies constipation. Denies nausea. Denies vomiting. Denies heartburn. Denies blood in the stool. GENITOURINARY: Denies urinary frequency. Denies burning. Denies dysuria. Denies cloudy urine. Denies blood in the urine. MUSCULOSKELETAL: Denies myalgias. Denies joint swelling. Denies decreased range of motion beyond patients baseline. INTEGUMENTARY: Denies pruitis. Denies rash. PSYCHIATRIC: Positive for history of ADD, anxiety, and depression Denies suicidal or homicial ideations. ENDOCRINE: Denies weight change. Denies polydipsia. Denies polyuria. HEMATOLOGIC: Denies bleeding disorders. Past Medical History Past Medical History: Asthma, COPD, GERD/Reflux, Hyperlipidemia, Musculoskeletal Disorder, Osteoarthritis (OA), Syncope, Thyroid Disorder Additional Past Medical History / Comment(s): KIDNEY STONES, hypoglycemia chronic neck and L shoulder pain- CHRONIC LOWER BACK PAIN hx L facial and L ankle fxs, sinus problems, vertigo, falls in past. 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 Bunionectomies , surgery for L fx foot-alix place & removed, lithotripsey and stent placed and removed, laser eye surgery bilaterally, EGD, Colonoscopy. PAIN clinic procedures. Rectocele repair Past Anesthesia/Blood Transfusion Reactions: Previous Problems w/ Anesthesia Additional Past Anesthesia/Blood Transfusion Reaction / Comment(s): "Takes longer to wake up from anesthesia." Past Psychological History: ADD/ADHD, Anxiety, Depression Additional Psychological History / Comment(s): Pt resides with her eldest son. She is independent. She drives. Smoking Status: Current every day smoker Past Alcohol Use History: None Reported Past Drug Use History: None Reported Additional Drug Use History / Comment(s): PAST marijuana USE -quit 2011 - Past Family History Mother Family Medical History: Cancer, Thyroid Disorder Additional Family Medical History / Comment(s): Mother of LUNG cancer at age 64 yrs. Father Family Medical History: Asthma, COPD, Osteoarthritis (OA) Additional Family Medical History / Comment(s): Father at age 80 yrs. Medications and Allergies Home Medications Medication Instructions Recorded Confirmed Type Albuterol Inhaler [Ventolin Hfa 1 puff INHALATION RT-QID PRN 12/21/13 09/27/17 History Inhaler] Loratadine 10 mg PO QAM 01/10/14 09/27/17 History Ezetimibe [Zetia] 10 mg PO HS 09/05/14 09/27/17 History Fluticasone Propionate 1 spray EA NOSTRIL BID 11/25/15 09/27/17 History Citalopram Hydrobromide [CeleXA] 40 mg PO QAM 12/10/15 09/27/17 History Methylphenidate HCl [Ritalin] 20 mg PO TID 12/10/15 09/27/17 History OXcarbazepine [Trileptal] 600 mg PO BID 12/10/15 09/27/17 History Levothyroxine Sodium [Synthroid] 25 mcg PO DAILY 03/13/16 09/27/17 History Atorvastatin [Lipitor] 10 mg PO HS 07/20/16 09/27/17 History Simethicone [Gas-X] 125 mg PO Q8H PRN 10/19/16 09/27/17 History Dicyclomine [Bentyl] 10 mg PO BID PRN 11/13/16 09/27/17 History Omeprazole 40 mg PO HS 11/13/16 09/27/17 History traZODone HCL 50 mg PO HS 11/13/16 09/27/17 History Estradiol [Estrace] 0.5 mg PO DAILY 02/03/17 09/27/17 History clonazePAM [KlonoPIN] 0.5 mg PO BID PRN 05/03/17 09/27/17 History Varenicline [Chantix] 1 mg PO BID 05/27/17 09/27/17 History Cyclobenzaprine [Flexeril] 10 mg PO BID PRN #60 tab 06/28/17 09/27/17 Rx HYDROmorphone HCL [Dilaudid] 4 mg PO Q8HR PRN #90 tab 06/28/17 09/27/17 Rx busPIRone HCL [Buspar] 30 mg PO BID 07/05/17 09/27/17 History Benzonatate [Tessalon Perles] 100 mg PO TID PRN #15 capsule 09/24/17 09/27/17 Rx Levofloxacin [Levaquin] 750 mg PO DAILY #7 tab 09/24/17 09/27/17 Rx predniSONE 50 mg PO DAILY #5 tab 09/24/17 09/27/17 Rx Naproxen 500 mg PO BID 09/27/17 09/27/17 History Allergies Allergy/AdvReac Type Severity Reaction Status Date / Time Penicillins Allergy Rash/Hives Verified 09/27/17 20:17 Physical Exam Vitals: Vital Signs Temp Pulse Pulse Resp BP BP Pulse Ox 09/28/17 11:27 88 09/28/17 11:17 92 09/28/17 10:09 89 13 09/28/17 09:18 95 13 09/28/17 08:05 98.1 F 89 13 117/71 09/28/17 07:38 88 09/28/17 07:29 88 09/28/17 01:56 97.6 F 78 18 131/67 98 09/28/17 00:59 80 18 137/72 97 09/28/17 00:02 95 19 144/71 97 09/27/17 22:34 93 19 130/73 98 09/27/17 21:47 96 09/27/17 21:43 87 18 130/73 100 09/27/17 21:36 96 09/27/17 21:20 76 18 130/73 100 09/27/17 21:09 92 09/27/17 20:56 88 09/27/17 19:16 96.7 F L 105 H 20 127/78 99 Intake and Output 09/27/17 09/28/17 09/28/17 22:59 06:59 14:59 Other: Voiding Method Toilet Toilet Bedside Commode # Voids 1 Weight 70.307 kg 70.307 kg GENERAL: This is a 52-year-old female in no apparent distress at the time of examination. Pleasant and cooperative. HEENT: Head is atraumatic, normocephalic. Pupils are equal, round, and reactive to light. Sclerae anicteric. Conjunctivae are clear. Mucus membranes of the mouth are moist. Neck is supple. RESPIRATORY: Patient's lungs coarse throughout. Expiratory wheezing noted. Frequent hacking cough noted during examination. Patient maintaining oxygen saturation greater than 92%. No chest wall tenderness is noted on palpation or with deep breathing. CARDIOVASCULAR: Regular rate and rhythm. S1 and S2 noted. No systolic or diastolic murmur auscultated. No JVD noted. No S3 or S4 noted. GASTROINTESTINAL: No distention noted. Abdomen soft and round. Normal active bowel sounds auscultated x 4 quadrants. No pain or tenderness noted upon palpation. INTEGUMENTARY: No cyanosis. No jaundice. No rashes noted. No cellulitis noted. EXTREMITIES: 2+ peripheral pulses. No evidence of peripheral edema. No calf tenderness noted. NEUROLOGIC: Cranial nerves II-XII intact. PSYCHIATRIC: Awake, alert, and oriented X 3. Appropriate affect. Intact judgement and insight. Results CBC & Chem 7: 09/28/17 07:24 09/28/17 07:24 Labs: Abnormal Lab Results - Last 24 Hours (Table) 09/27/17 09/28/17 09/28/17 Range/Units 20:31 07:24 07:24 Lymphocytes # 0.8 L (1.0-4.8) k/uL Sodium 128 L 132 L (137-145) mmol/L Chloride 94 L 96 L (98-107) mmol/L Carbon Dioxide 21 L (22-30) mmol/L Glucose 113 H 152 H (74-99) mg/dL Total Bilirubin 0.1 L (0.2-1.3) mg/dL Thrombosis Risk Factor Assmnt - Choose All That Apply Any of the Below Risk Factors Present?: Yes Each Factor Represents 1 point: Abnormal pulmonary function (COPD), Age 41-60 years, Obesity (BMI >25) Other Risk Factors: No Thrombosis Risk Factor Assessment Total Risk Factor Score: 3 Thrombosis Risk Factor Assessment Level: Moderate Risk Assessment and Plan Plan: ASSESSMENT: Acute exacerbation of chronic obstructive pulmonary disease, failed outpatient treatment, patient presented to ER on 09/24/2017 and was prescribed Levaquin and medrol dose pack Hyperlipidemia Gastroesophageal reflux disease Hypothyroidism Chronic lower back pain History of attention deficit disorder Anxiety, unspecified Depression, unspecified History of nicotine dependence, in remission, patient quit smoking cigarettes 2 weeks ago. PLAN: Pulmonary on consult. Appreciate recommendations and input Continue IV steroids Capillary blood glucose Accu-Checks AC/HS NovoLog sliding scale coverage AC/HS Continue updraft treatments Continue Chantix 1 mg by mouth twice a day Home meds as appropriate Monitor labs GI prophylaxis: Protonix 40 mg PO Daily DVT prophylaxis: Venodyne's to bilateral lower extremities Monitor vital signs and address as appropriate Discharge planning: Patient to return home when stable Further recommendations pending patient's course Nurse practitioner note has been reviewed by physician. Signing provider agrees with the documented findings, assessment, and plan of care.
[2017-09-28 12:34] LABS: Glucose,Whole Blood 166 mg/dL (75-99)
[2017-09-28] MEDS: INSULIN ASPART 100 UNIT/ML 1 ML 10 ML VIAL SQ SCH ×3 (12:49→20:42)
--- NOTE | 2017-09-28 14:34 | P.CNPUL ---
History of Present Illness Consult date: 09/28/17 Reason for consult: dyspnea, cough, COPD Chief complaint: Cough shortness of breath and failed outpatient therapy History of present illness: 52-year-old female patient presented to the emergency department for complaints of increased cough and shortness of breath. Patient states that she was seen and evaluated here on Wednesday in emergency department and diagnosed with acute bronchitis and COPD exacerbation. Patient was started on Levaquin, steroids, and has been using her inhaler without relief of symptoms. Patient states that she is short of breath with activity. She states she is coughing up green sputum. Patient states that she has been a smoker for many years, quit in the last 2 weeks. She denies any fevers or chills. States that when she coughs her chest does hurt, especially on the right side. Patient states she has used her inhaler multiple times today without relief. She states she called her primary care physician and told her to come back in here today for further evaluation. Patient denies any recent rash, abdominal pain, nausea, vomiting, diarrhea, constipation, back pain, numbness, tingling, dizziness, weakness, hematuria, dysuria, urinary urgency, urinary frequency, headache, visual changes , or any other complaints. Compared to yesterday today severe due to pain is slightly better with still short of breath and has intermittent episodes of wheezing she gets short of breath on activity and exertion Review of Systems All systems: negative Past Medical History Past Medical History: Asthma, COPD, GERD/Reflux, Hyperlipidemia, Musculoskeletal Disorder, Osteoarthritis (OA), Syncope, Thyroid Disorder Additional Past Medical History / Comment(s): KIDNEY STONES, hypoglycemia chronic neck and L shoulder pain- CHRONIC LOWER BACK PAIN hx L facial and L ankle fxs, sinus problems, vertigo, falls in past. 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 Bunionectomies , surgery for L fx foot-alix place & removed, lithotripsey and stent placed and removed, laser eye surgery bilaterally, EGD, Colonoscopy. PAIN clinic procedures. Rectocele repair Past Anesthesia/Blood Transfusion Reactions: Previous Problems w/ Anesthesia Additional Past Anesthesia/Blood Transfusion Reaction / Comment(s): "Takes longer to wake up from anesthesia." Past Psychological History: ADD/ADHD, Anxiety, Depression Additional Psychological History / Comment(s): Pt resides with her eldest son. She is independent. She drives. Smoking Status: Current every day smoker Past Alcohol Use History: None Reported Past Drug Use History: None Reported Additional Drug Use History / Comment(s): PAST marijuana USE -quit 2011 - Past Family History Mother Family Medical History: Cancer, Thyroid Disorder Additional Family Medical History / Comment(s): Mother of LUNG cancer at age 64 yrs. Father Family Medical History: Asthma, COPD, Osteoarthritis (OA) Additional Family Medical History / Comment(s): Father at age 80 yrs. Medications and Allergies Home Medications Medication Instructions Recorded Confirmed Type Albuterol Inhaler [Ventolin Hfa 1 puff INHALATION RT-QID PRN 12/21/13 09/27/17 History Inhaler] Loratadine 10 mg PO QAM 01/10/14 09/27/17 History Ezetimibe [Zetia] 10 mg PO HS 09/05/14 09/27/17 History Fluticasone Propionate 1 spray EA NOSTRIL BID 11/25/15 09/27/17 History Citalopram Hydrobromide [CeleXA] 40 mg PO QAM 12/10/15 09/27/17 History Methylphenidate HCl [Ritalin] 20 mg PO TID 12/10/15 09/27/17 History OXcarbazepine [Trileptal] 600 mg PO BID 12/10/15 09/27/17 History Levothyroxine Sodium [Synthroid] 25 mcg PO DAILY 03/13/16 09/27/17 History Atorvastatin [Lipitor] 10 mg PO HS 07/20/16 09/27/17 History Simethicone [Gas-X] 125 mg PO Q8H PRN 10/19/16 09/27/17 History Dicyclomine [Bentyl] 10 mg PO BID PRN 11/13/16 09/27/17 History Omeprazole 40 mg PO HS 11/13/16 09/27/17 History traZODone HCL 50 mg PO HS 11/13/16 09/27/17 History Estradiol [Estrace] 0.5 mg PO DAILY 02/03/17 09/27/17 History clonazePAM [KlonoPIN] 0.5 mg PO BID PRN 05/03/17 09/27/17 History Varenicline [Chantix] 1 mg PO BID 05/27/17 09/27/17 History Cyclobenzaprine [Flexeril] 10 mg PO BID PRN #60 tab 06/28/17 09/27/17 Rx HYDROmorphone HCL [Dilaudid] 4 mg PO Q8HR PRN #90 tab 06/28/17 09/27/17 Rx busPIRone HCL [Buspar] 30 mg PO BID 07/05/17 09/27/17 History Benzonatate [Tessalon Perles] 100 mg PO TID PRN #15 capsule 09/24/17 09/27/17 Rx Levofloxacin [Levaquin] 750 mg PO DAILY #7 tab 09/24/17 09/27/17 Rx predniSONE 50 mg PO DAILY #5 tab 09/24/17 09/27/17 Rx Naproxen 500 mg PO BID 09/27/17 09/27/17 History Allergies Allergy/AdvReac Type Severity Reaction Status Date / Time Penicillins Allergy Rash/Hives Verified 09/27/17 20:17 Physical Exam Vitals: Vital Signs Temp Pulse Pulse Resp BP BP Pulse Ox 09/28/17 11:27 88 09/28/17 11:17 92 09/28/17 10:09 89 13 09/28/17 09:18 95 13 09/28/17 08:05 98.1 F 89 13 117/71 09/28/17 07:38 88 09/28/17 07:29 88 09/28/17 01:56 97.6 F 78 18 131/67 98 09/28/17 00:59 80 18 137/72 97 09/28/17 00:02 95 19 144/71 97 09/27/17 22:34 93 19 130/73 98 09/27/17 21:47 96 09/27/17 21:43 87 18 130/73 100 09/27/17 21:36 96 09/27/17 21:20 76 18 130/73 100 09/27/17 21:09 92 09/27/17 20:56 88 09/27/17 19:16 96.7 F L 105 H 20 127/78 99 Intake and Output 0209/28/17 09/28/17 22:59 06:59 14:59 Other: Voiding Method Toilet Toilet Bedside Commode # Voids 1 Weight 70.307 kg 70.307 kg Limitations: no limitations General appearance: alert, in no apparent distress, other (This is a well- developed, well-nourished adult female patient in no acute distress. Vital signs upon presentation are temperature 96.7F, pulse 105, respirations 20, blood pressure 127/70, pulse ox 99% on room air.) Eye exam: Present: normal appearance, PERRL, EOMI. Absent: scleral icterus, conjunctival injection, periorbital swelling ENT exam: Present: normal exam, normal oropharynx, mucous membranes moist Respiratory exam: Present: lung sounds bilaterally Course, congested cough fine wheezing on force expiration Cardiovascular Exam: Present: regular rate, normal rhythm, normal heart sounds. Absent: systolic murmur, diastolic murmur, rubs, gallop, clicks GI/Abdominal exam: Present: soft, normal bowel sounds. Absent: distended, tenderness, guarding, rebound, rigid Neurological exam: Present: alert, oriented X3, CN II-XII intact Psychiatric exam: Present: normal affect, normal mood Skin exam: Present: warm, dry, intact, normal color. Absent: rash Results - Laboratory Findings CBC and BMP: 09/28/17 07:24 09/28/17 07:24 Abnormal lab findings: Abnormal Labs 09/27/17 09/28/17 09/28/17 20:31 07:24 07:24 Lymphocytes # 0.8 L Sodium 128 L 132 L Chloride 94 L 96 L Carbon Dioxide 21 L Glucose 113 H 152 H POC Glucose (mg/dL) Total Bilirubin 0.1 L 09/28/17 12:32 Lymphocytes # Sodium Chloride Carbon Dioxide Glucose POC Glucose (mg/dL) 166 H Total Bilirubin - Diagnostic Findings Chest x-ray: report reviewed, image reviewed Assessment and Plan Assessment: Acute COPD exacerbation with failed outpatient therapy Purulent tracheobronchitis Dyslipidemia and GERD Hypothyroidism Degenerative joint disease osteoarthritis especially of lower back History of generalized anxiety disorder depression History of smoking and nicotine use Plan: Maintain patient on breathing treatments Maintain patient on home medications IV steroids Send sputum for culture Patient has been consult about smoking cessation Time with Patient: Greater than 30
[2017-09-28] MEDS: BENZONATATE 100 MG CAP PO PRN ×2 (16:35→23:16)
[2017-09-28 16:53] LABS: Glucose,Whole Blood 166 mg/dL (75-99)
[2017-09-28] MEDS: DICYCLOMINE 10 MG CAP PO PRN (19:28)
[2017-09-28 20:19] LABS: Glucose,Whole Blood 170 mg/dL (75-99)
[2017-09-28] MEDS: SIMETHICONE 80 MG CHEWABLE PO PRN (20:40)
[2017-09-28] MEDS: ATORVASTATIN 10 MG TAB PO SCH (20:42)
[2017-09-28] MEDS: EZETIMIBE 10 MG TAB PO SCH (20:42)
[2017-09-28] MEDS: FLUTICASONE 50MCG/SPRAY NASAL 16GM EA NOSTRIL SCH (20:42)
[2017-09-28] MEDS: traZODone HCL 50 MG TAB PO SCH (20:43)
[2017-09-28] MEDS: clonazePAM 0.5 MG TAB PO PRN (22:17)
[2017-09-28 22:56] LABS: Hemoglobin A1C 5.7 % (4.0-6.0)
[2017-09-29] MEDS: HYDROmorphone 4 MG TABLET PO PRN ×3 (02:16→17:54)
[2017-09-29 02:22] LABS: Glucose,Whole Blood 160 mg/dL (75-99)
[2017-09-29] MEDS: LEVOTHYROXINE 25 MCG TAB PO SCH (05:28)
[2017-09-29] MEDS: clonazePAM 0.5 MG TAB PO PRN (05:47)
[2017-09-29 07:27] LABS: Glucose,Whole Blood 163 mg/dL (75-99)
[2017-09-29] MEDS: FLUTICASONE 50MCG/SPRAY NASAL 16GM EA NOSTRIL SCH ×2 (07:47→20:09)
[2017-09-29] MEDS: CHLORPHEN-HYDROcod 8-10mg/5ml 5 ML ORAL.SYRG PO SCH ×2 (07:47→20:10)
[2017-09-29] MEDS: INSULIN ASPART 100 UNIT/ML 1 ML 10 ML VIAL SQ SCH ×4 (07:47→20:09)
[2017-09-29] MEDS: OXcarbazepine 300 MG TAB PO SCH ×2 (07:48→20:10)
[2017-09-29] MEDS: ESTRADIOL 0.5 MG TAB PO SCH (07:48)
[2017-09-29] MEDS: PANTOPRAZOLE 40 MG TABLET PO SCH (07:48)
[2017-09-29] MEDS: METHYLPHENIDATE HCL 10 MG TAB PO SCH ×3 (07:48→20:14)
[2017-09-29] MEDS: methylPREDNISolone SOD SUCCI 125 MG/2 ML VIAL IV SCH ×2 (07:48→16:17)
[2017-09-29] MEDS: VARENICLINE 1 MG TAB PO SCH ×2 (07:48→17:51)
[2017-09-29] MEDS: busPIRone HCl 10 MG TAB PO SCH ×2 (07:49→20:10)
[2017-09-29] MEDS: CITALOPRAM HYDROBROMIDE 20 MG TAB PO SCH (07:49)
[2017-09-29] MEDS: LORATADINE 10 MG TAB PO SCH (07:49)
[2017-09-29] MEDS: IPRATROPIUM-ALBUTEROL 3 ML NEB INHALATION SCH ×4 (08:39→20:51)
--- NOTE | 2017-09-29 08:44 | P.PN ---
Subjective Progress Note Date: 09/29/17 52-year-old female who presented to the emergency room with a chief complaint of shortness of breath and cough. Patient had presented to the emergency room on Sunday, September 24, 2017 with similar symptoms. She was diagnosed with acute bronchitis and COPD exacerbation. The patient was started on Levaquin and steroids at that time. Patient states she has also been using her inhaler at home which has not provided improvement in her symptoms. Patient states she continues to be short of breath and has a persistent cough. Patient denies chest pain or pressure. Denies nausea or vomiting. Denies fever or chills. The patient has a history of COPD, asthma, hyperlipidemia, gastroesophageal reflux disease, osteoarthritis, hypothyroidism, and chronic lower back pain. She also has a history of ADD, anxiety, and depression. The patient has been a pack-a-day smoker for many years. She quit smoking approximately 2 weeks ago and has been on Chantix. Chest x-ray: No acute cardiopulmonary process, unchanged from previous x-ray on 09/24/2017 Laboratory data: WBC 6.1. Hemoglobin 12.4. Platelet count 279. Sodium 128. Potassium 3.8. BUN 10. Creatinine 0.70. The patient was admitted to the hospital under the care of Dr. Ding. Consultations were placed to pulmonary. 09/29/2017 Patient seen and examined at the bedside on rounds with Dr. Ding. Patient is awake and alert. Eating breakfast. Respiratory status has improved significantly. Denies chest pain or pressure. Denies shortness of breath. Denies nausea or vomiting. Vital signs remain stable. Voiding without difficulty. Objective - Vital Signs Vital signs: Vital Signs Temp 97.9 F 09/29/17 07:00 Pulse 86 09/29/17 07:00 Resp 16 09/29/17 07:00 BP 123/62 09/29/17 07:00 Pulse Ox 96 09/29/17 07:00 Intake & Output 09/28/17 09/29/17 09/29/17 18:59 06:59 18:59 Other: Voiding Method Toilet Toilet Bedside Commode # Voids 2 1 - Exam GENERAL: This is a 52-year-old female in no apparent distress at the time of examination. Pleasant and cooperative. HEENT: Head is atraumatic, normocephalic. Pupils are equal, round, and reactive to light. Sclerae anicteric. Conjunctivae are clear. Mucus membranes of the mouth are moist. Neck is supple. RESPIRATORY: Patient's lung sounds improved since yesterday. Some expiratory wheezing remains. Patient maintaining oxygen saturation greater than 92%. No chest wall tenderness is noted on palpation or with deep breathing. CARDIOVASCULAR: Regular rate and rhythm. S1 and S2 noted. No systolic or diastolic murmur auscultated. No JVD noted. No S3 or S4 noted. GASTROINTESTINAL: No distention noted. Abdomen soft and round. Normal active bowel sounds auscultated x 4 quadrants. No pain or tenderness noted upon palpation. INTEGUMENTARY: No cyanosis. No jaundice. No rashes noted. No cellulitis noted. EXTREMITIES: 2+ peripheral pulses. No evidence of peripheral edema. No calf tenderness noted. NEUROLOGIC: Cranial nerves II-XII intact. PSYCHIATRIC: Awake, alert, and oriented X 3. Appropriate affect. Intact judgement and insight. - Labs CBC & Chem 7: 09/28/17 07:24 09/28/17 07:24 Labs: Abnormal Lab Results - Last 24 Hours (Table) 09/28/17 09/28/17 09/28/17 Range/Units 12:32 16:51 20:18 POC Glucose (mg/dL) 166 H 166 H 170 H (75-99) mg/dL 09/29/17 09/29/17 Range/Units 02:19 07:09 POC Glucose (mg/dL) 160 H 163 H (75-99) mg/dL Assessment and Plan Plan: ASSESSMENT: Acute exacerbation of chronic obstructive pulmonary disease, failed outpatient treatment x 2, patient presented to ER on 09/24/2017 and was prescribed Levaquin and medrol dose pack and also was seen at primary care office and treated for similar symptoms Hyperlipidemia Gastroesophageal reflux disease Hypothyroidism Chronic lower back pain History of attention deficit disorder Anxiety, unspecified Depression, unspecified History of nicotine dependence, in remission, patient quit smoking cigarettes 2 weeks ago. PLAN: Pulmonary on consult. Appreciate recommendations and input Continue IV steroids. Will decrease to 60 Q8 today, and 40mg starting tomorrow morning Capillary blood glucose Accu-Checks AC/HS NovoLog sliding scale coverage AC/HS Continue updraft treatments Continue Chantix 1 mg by mouth twice a day Home meds as appropriate Monitor labs GI prophylaxis: Protonix 40 mg PO Daily DVT prophylaxis: Venodyne's to bilateral lower extremities Monitor vital signs and address as appropriate Discharge planning: Patient to return home when stable Further recommendations pending patient's course Patient was denied inpatient status from insurance company. Patient changed to observation status. Will decrease steroids today and discharge home tomorrow morning if patient remains stable. Nurse practitioner note has been reviewed by physician. Signing provider agrees with the documented findings, assessment, and plan of care.
[2017-09-29 11:10] LABS: Glucose,Whole Blood 147 mg/dL (75-99)
--- NOTE | 2017-09-29 14:33 | P.PN ---
Subjective Progress Note Date: 09/29/17 Principal diagnosis: Acute COPD exacerbation, purulent tracheobronchitis, acute on chronic persistent asthma with acute exacerbation 09/29/2017, patient seen and evaluated examined during the rounds her cough congestion shortness breath is slightly better and improve still compared to yesterday with severe D the still there she gets short of breath on walking 10- 15 steps into coughing spell she is being treated with antibiotics breathing treatment and steroids with slow progressive response 52-year-old female patient presented to the emergency department for complaints of increased cough and shortness of breath. Patient states that she was seen and evaluated here on Wednesday in emergency department and diagnosed with acute bronchitis and COPD exacerbation. Patient was started on Levaquin, steroids, and has been using her inhaler without relief of symptoms. Patient states that she is short of breath with activity. She states she is coughing up green sputum. Patient states that she has been a smoker for many years, quit in the last 2 weeks. She denies any fevers or chills. States that when she coughs her chest does hurt, especially on the right side. Patient states she has used her inhaler multiple times today without relief. She states she called her primary care physician and told her to come back in here today for further evaluation. Patient denies any recent rash, abdominal pain, nausea, vomiting, diarrhea, constipation, back pain, numbness, tingling, dizziness, weakness, hematuria, dysuria, urinary urgency, urinary frequency, headache, visual changes , or any other complaints. Compared to yesterday today severe due to pain is slightly better with still short of breath and has intermittent episodes of wheezing she gets short of breath on activity and exertion Objective - Vital Signs Vital signs: Vital Signs Temp 97.9 F 09/29/17 07:00 Pulse 92 09/29/17 12:37 Resp 16 09/29/17 08:00 BP 123/62 09/29/17 07:00 Pulse Ox 96 09/29/17 07:00 Intake & Output 09/28/17 09/29/17 09/29/17 18:59 06:59 18:59 Other: Voiding Method Toilet Toilet Toilet Bedside Commode # Voids 2 1 - Exam Limitations: no limitations General appearance: alert, in no apparent distress, other (This is a well- developed, well-nourished adult female patient in no acute distress. Vital signs upon presentation are temperature 96.7F, pulse 105, respirations 20, blood pressure 127/70, pulse ox 99% on room air.) Eye exam: Present: normal appearance, PERRL, EOMI. Absent: scleral icterus, conjunctival injection, periorbital swelling ENT exam: Present: normal exam, normal oropharynx, mucous membranes moist Respiratory exam: Present: lung sounds bilaterally Course, congested cough fine wheezing on force expiration Cardiovascular Exam: Present: regular rate, normal rhythm, normal heart sounds. Absent: systolic murmur, diastolic murmur, rubs, gallop, clicks GI/Abdominal exam: Present: soft, normal bowel sounds. Absent: distended, tenderness, guarding, rebound, rigid Neurological exam: Present: alert, oriented X3, CN II-XII intact Psychiatric exam: Present: normal affect, normal mood Skin exam: Present: warm, dry, intact, normal color. Absent: rash - Labs CBC & Chem 7: 09/28/17 07:24 09/28/17 07:24 Labs: Abnormal Lab Results - Last 24 Hours (Table) 09/28/17 09/28/17 09/29/17 Range/Units 16:51 20:18 02:19 POC Glucose (mg/dL) 166 H 170 H 160 H (75-99) mg/dL 09/29/17 09/29/17 Range/Units 07:09 11:06 POC Glucose (mg/dL) 163 H 147 H (75-99) mg/dL Assessment and Plan Assessment: Acute COPD exacerbation with failed outpatient therapy Purulent tracheobronchitis Dyslipidemia and GERD Hypothyroidism Degenerative joint disease osteoarthritis especially of lower back History of generalized anxiety disorder depression History of smoking and nicotine use Plan: Maintain patient on breathing treatments Maintain patient on home medications IV steroids Send sputum for culture Patient has been consult about smoking cessation Further recommendations pending plan of care as per clinical response of the patient Time with Patient: Greater than 30
[2017-09-29 17:42] LABS: Glucose,Whole Blood 147 mg/dL (75-99)
[2017-09-29 20:01] LABS: Glucose,Whole Blood 227 mg/dL (75-99)
[2017-09-29] MEDS: ATORVASTATIN 10 MG TAB PO SCH (20:10)
[2017-09-29] MEDS: EZETIMIBE 10 MG TAB PO SCH (20:10)
[2017-09-29] MEDS: traZODone HCL 50 MG TAB PO SCH (20:11)
[2017-09-29] MEDS ORDERED: methylPREDNISolone SOD SUCCI 125 MG/2 ML VIAL IV SCH (21:00)
[2017-09-29 21:43] VITALS: RESP 18
[2017-09-30] MEDS: methylPREDNISolone SOD SUCCI 125 MG/2 ML VIAL IV SCH (00:34)
[2017-09-30] MEDS: HYDROmorphone 4 MG TABLET PO PRN ×2 (02:20→10:24)
[2017-09-30] MEDS: LEVOTHYROXINE 25 MCG TAB PO SCH (06:11)
[2017-09-30] MEDS: clonazePAM 0.5 MG TAB PO PRN ×2 (06:14→13:56)
[2017-09-30 06:55] LABS: Glucose,Whole Blood 152 mg/dL (75-99)
[2017-09-30 07:36] LABS: Anion Gap 12 mmol/L; Blood Urea Nitrogen 14 mg/dL (7-17); Carbon Dioxide 26 mmol/L (22-30); Chloride 95 mmol/L (98-107); Glucose 141 mg/dL (74-99); Potassium 4.7 mmol/L (3.5-5.1); Sodium 133 mmol/L (137-145)
[2017-09-30] MEDS: INSULIN ASPART 100 UNIT/ML 1 ML 10 ML VIAL SQ SCH ×2 (07:38→12:02)
[2017-09-30 08:17] VITALS: BP 131/61; TEMP 98
[2017-09-30] MEDS: CHLORPHEN-HYDROcod 8-10mg/5ml 5 ML ORAL.SYRG PO SCH (08:41)
[2017-09-30] MEDS: PANTOPRAZOLE 40 MG TABLET PO SCH (08:42)
[2017-09-30] MEDS: VARENICLINE 1 MG TAB PO SCH (08:42)
[2017-09-30] MEDS: busPIRone HCl 10 MG TAB PO SCH (08:42)
[2017-09-30] MEDS: ESTRADIOL 0.5 MG TAB PO SCH (08:43)
[2017-09-30] MEDS: CITALOPRAM HYDROBROMIDE 20 MG TAB PO SCH (08:43)
[2017-09-30] MEDS: LORATADINE 10 MG TAB PO SCH (08:44)
[2017-09-30] MEDS: FLUTICASONE 50MCG/SPRAY NASAL 16GM EA NOSTRIL SCH (08:44)
[2017-09-30] MEDS: methylPREDNISolone SOD SUCCI 40 MG/ML 1 ML VIAL IV SCH ×2 (08:44→08:49)
[2017-09-30] MEDS: OXcarbazepine 300 MG TAB PO SCH (08:45)
[2017-09-30] MEDS: METHYLPHENIDATE HCL 10 MG TAB PO SCH ×2 (08:53→15:28)
[2017-09-30] MEDS: IPRATROPIUM-ALBUTEROL 3 ML NEB INHALATION SCH ×2 (08:58→11:44)
[2017-09-30] MEDS ORDERED: DOXYCYCLINE 50 MG CAP PO SCH (09:00)
[2017-09-30] MEDS ORDERED: predniSONE 20 MG TAB PO SCH (10:30)
--- NOTE | 2017-09-30 10:44 | P.DS ---
Providers Date of admission: 09/29/17 18:00 Expected date of discharge: 09/30/17 Attending physician: Ihsan Ding Consults: 09/27/17 22:37 Consult Physician Stat Consulting Provider: Edgar Alves Consult Reason/Comments: COPD Exacerbation Do you want consulting provider notified?: Yes Primary care physician: Ihsan Dign [facility] Course: 52-year-old female who presented to the emergency room with a chief complaint of shortness of breath and cough. Patient had presented to the emergency room on Sunday, September 24, 2017 with similar symptoms. She was diagnosed with acute bronchitis and COPD exacerbation. The patient was started on Levaquin and steroids at that time. Patient states she has also been using her inhaler at home which has not provided improvement in her symptoms. Patient states she continues to be short of breath and has a persistent cough. Patient denies chest pain or pressure. Denies nausea or vomiting. Denies fever or chills. The patient has a history of COPD, asthma, hyperlipidemia, gastroesophageal reflux disease, osteoarthritis, hypothyroidism, and chronic lower back pain. She also has a history of ADD, anxiety, and depression. The patient has been a pack-a-day smoker for many years. She quit smoking approximately 2 weeks ago and has been on Chantix. Chest x-ray: No acute cardiopulmonary process, unchanged from previous x-ray on 09/24/2017 Laboratory data: WBC 6.1. Hemoglobin 12.4. Platelet count 279. Sodium 128. Potassium 3.8. BUN 10. Creatinine 0.70. The patient was admitted to the hospital under the care of Dr. Ding. Consultations were placed to pulmonary. Testing for influenza A and B was negative. The patient was placed on IV steroids which has been tapered down. She was also started on doxycycline 100 mg by mouth twice a day. Respiratory status has improved significantly. Denies chest pain or pressure. Denies shortness of breath. Denies nausea or vomiting. Vital signs remain stable. Voiding without difficulty. The patient was deemed stable for discharge per Dr. Ding. She is to follow up on an outpatient basis with Dr. Ding and also Dr. Alves. Prescriptions were sent to the patient's preferred pharmacy for prednisone taper and doxycycline 100 mg twice a day 7 days and Tussinex. Case management is obtaining a neublizer machine for the patient for home. Pulmonary wrote paper rx for nebulizer. DISCHARGE DIAGNOSIS: Acute exacerbation of chronic obstructive pulmonary disease, failed outpatient treatment x 2, patient presented to ER on 09/24/2017 and was prescribed Levaquin and medrol dose pack and also was seen at primary care office and treated for similar symptoms Hyperlipidemia Gastroesophageal reflux disease Hypothyroidism Chronic lower back pain History of attention deficit disorder Anxiety, unspecified Depression, unspecified History of nicotine dependence, in remission, patient quit smoking cigarettes 2 weeks ago. Nurse practitioner note has been reviewed by physician. Signing provider agrees with the documented findings, assessment, and plan of care. Patient Condition at Discharge: Stable Plan - Discharge Summary Discharge Rx Participant: Yes New Discharge Prescriptions: New CHLORPHEN-HYDROcod 8-10mg/5ml [Tussionex] 5 ml PO Q12H #70 ml Doxycycline [Vibramycin] 100 mg PO BID #28 cap predniSONE See Taper PO DIRECTED #30 tab Continue Albuterol Inhaler [Ventolin Hfa Inhaler] 1 puff INHALATION RT-QID PRN PRN Reason: Shortness Of Breath Loratadine 10 mg PO QAM Ezetimibe [Zetia] 10 mg PO HS Fluticasone Propionate 1 spray EA NOSTRIL BID Citalopram Hydrobromide [CeleXA] 40 mg PO QAM OXcarbazepine [Trileptal] 600 mg PO BID Methylphenidate HCl [Ritalin] 20 mg PO TID Levothyroxine Sodium [Synthroid] 25 mcg PO DAILY Atorvastatin [Lipitor] 10 mg PO HS Simethicone [Gas-X] 125 mg PO Q8H PRN PRN Reason: abdominal cramping Omeprazole 40 mg PO HS Dicyclomine [Bentyl] 10 mg PO BID PRN PRN Reason: CRAMPS traZODone HCL 50 mg PO HS Estradiol [Estrace] 0.5 mg PO DAILY clonazePAM [KlonoPIN] 0.5 mg PO BID PRN PRN Reason: Anxiety Varenicline [Chantix Continuing Pack] 1 mg PO BID Cyclobenzaprine [Flexeril] 10 mg PO BID PRN #60 tab PRN Reason: Muscle Pain HYDROmorphone HCL [Dilaudid] 4 mg PO Q8HR PRN #90 tab PRN Reason: Pain busPIRone HCL [Buspar] 30 mg PO BID Benzonatate [Tessalon Perles] 100 mg PO TID PRN #15 capsule PRN Reason: Cough Naproxen 500 mg PO BID Discontinued Levofloxacin [Levaquin] 750 mg PO DAILY #7 tab predniSONE 50 mg PO DAILY #5 tab Discharge Medication List Albuterol Inhaler [Ventolin Hfa Inhaler] 1 puff INHALATION RT-QID PRN 12/21/13 [ History] Loratadine 10 mg PO QAM 01/10/14 [History] Ezetimibe [Zetia] 10 mg PO HS 09/05/14 [History] Fluticasone Propionate 1 spray EA NOSTRIL BID 11/25/15 [History] Citalopram Hydrobromide [CeleXA] 40 mg PO QAM 12/10/15 [History] Methylphenidate HCl [Ritalin] 20 mg PO TID 12/10/15 [History] OXcarbazepine [Trileptal] 600 mg PO BID 12/10/15 [History] Levothyroxine Sodium [Synthroid] 25 mcg PO DAILY 03/13/16 [History] Atorvastatin [Lipitor] 10 mg PO HS 07/20/16 [History] Simethicone [Gas-X] 125 mg PO Q8H PRN 10/19/16 [History] Dicyclomine [Bentyl] 10 mg PO BID PRN 11/13/16 [History] Omeprazole 40 mg PO HS 11/13/16 [History] traZODone HCL 50 mg PO HS 11/13/16 [History] Estradiol [Estrace] 0.5 mg PO DAILY 02/03/17 [History] clonazePAM [KlonoPIN] 0.5 mg PO BID PRN 05/03/17 [History] Varenicline [Chantix Continuing Pack] 1 mg PO BID 05/27/17 [History] Cyclobenzaprine [Flexeril] 10 mg PO BID PRN #60 tab 06/28/17 [Rx] HYDROmorphone HCL [Dilaudid] 4 mg PO Q8HR PRN #90 tab 06/28/17 [Rx] busPIRone HCL [Buspar] 30 mg PO BID 07/05/17 [History] Benzonatate [Tessalon Perles] 100 mg PO TID PRN #15 capsule 09/24/17 [Rx] Naproxen 500 mg PO BID 09/27/17 [History] CHLORPHEN-HYDROcod 8-10mg/5ml [Tussionex] 5 ml PO Q12H #70 ml 09/30/17 [Rx] Doxycycline [Vibramycin] 100 mg PO BID #28 cap 09/30/17 [Rx] predniSONE See Taper PO DIRECTED #30 tab 09/30/17 [Rx] Follow up Appointment(s)/Referral(s): Edgar Alves MD [STAFF PHYSICIAN] - 1 Week Ihsan Ding DO [Primary Care Provider] - 2 Weeks
[2017-09-30] MEDS: DICYCLOMINE 10 MG CAP PO PRN (11:00)
[2017-09-30] MEDS: SIMETHICONE 80 MG CHEWABLE PO PRN (11:00)
[2017-09-30 11:46] VITALS: PULSE 80
[2017-09-30 11:48] LABS: Glucose,Whole Blood 119 mg/dL (75-99)
[2017-09-30 15:45] LABS: Glucose,Whole Blood 179 mg/dL (75-99)
--- NOTE | 2017-09-30 18:34 | P.PN ---
Subjective Progress Note Date: 09/30/17 (Late entry note for services provided earlier this morning) Principal diagnosis: Acute COPD exacerbation, purulent tracheobronchitis, acute on chronic persistent asthma with acute exacerbation 09/30/2017, patient seen eval reexamined during the rounds clinically is doing slightly better cough congestion shortness breath is improved and has been tolerating his steroids and antibiotics fairly well likely will be discharged home with follow-up with pain services and follow with me for ongoing problems COPD 09/29/2017, patient seen and evaluated examined during the rounds her cough congestion shortness breath is slightly better and improve still compared to yesterday with severe D the still there she gets short of breath on walking 10- 15 steps into coughing spell she is being treated with antibiotics breathing treatment and steroids with slow progressive response 52-year-old female patient presented to the emergency department for complaints of increased cough and shortness of breath. Patient states that she was seen and evaluated here on Wednesday in emergency department and diagnosed with acute bronchitis and COPD exacerbation. Patient was started on Levaquin, steroids, and has been using her inhaler without relief of symptoms. Patient states that she is short of breath with activity. She states she is coughing up green sputum. Patient states that she has been a smoker for many years, quit in the last 2 weeks. She denies any fevers or chills. States that when she coughs her chest does hurt, especially on the right side. Patient states she has used her inhaler multiple times today without relief. She states she called her primary care physician and told her to come back in here today for further evaluation. Patient denies any recent rash, abdominal pain, nausea, vomiting, diarrhea, constipation, back pain, numbness, tingling, dizziness, weakness, hematuria, dysuria, urinary urgency, urinary frequency, headache, visual changes , or any other complaints. Compared to yesterday today severe due to pain is slightly better with still short of breath and has intermittent episodes of wheezing she gets short of breath on activity and exertion Objective - Vital Signs Vital signs: Vital Signs Temp 98.0 F 09/30/17 07:00 Pulse 80 09/30/17 11:58 Resp 18 09/30/17 08:00 BP 131/61 09/30/17 07:00 Pulse Ox 93 L 09/30/17 07:00 Intake & Output 0209/30/17 09/30/17 18:59 06:59 18:59 Intake Total 300 600 Balance 300 600 Intake: Oral 300 600 Other: Voiding Method Toilet Toilet Toilet # Voids 3 2 - Exam Limitations: no limitations General appearance: alert, in no apparent distress, other (This is a well- developed, well-nourished adult female patient in no acute distress. Vital signs upon presentation are temperature 96.7F, pulse 105, respirations 20, blood pressure 127/70, pulse ox 99% on room air.) Eye exam: Present: normal appearance, PERRL, EOMI. Absent: scleral icterus, conjunctival injection, periorbital swelling ENT exam: Present: normal exam, normal oropharynx, mucous membranes moist Respiratory exam: Present: lung sounds bilaterally Course, congested cough fine wheezing on force expiration Cardiovascular Exam: Present: regular rate, normal rhythm, normal heart sounds. Absent: systolic murmur, diastolic murmur, rubs, gallop, clicks GI/Abdominal exam: Present: soft, normal bowel sounds. Absent: distended, tenderness, guarding, rebound, rigid Neurological exam: Present: alert, oriented X3, CN II-XII intact Psychiatric exam: Present: normal affect, normal mood Skin exam: Present: warm, dry, intact, normal color. Absent: rash - Labs CBC & Chem 7: 09/28/17 07:24 09/30/17 06:56 Labs: Abnormal Lab Results - Last 24 Hours (Table) 09/29/17 09/30/17 09/30/17 Range/Units 20:00 06:52 06:56 Sodium 133 L (137-145) mmol/L Chloride 95 L (98-107) mmol/L Glucose 141 H (74-99) mg/dL POC Glucose (mg/dL) 227 H 152 H (75-99) mg/dL 09/30/17 09/30/17 Range/Units 11:33 15:41 Sodium (137-145) mmol/L Chloride (98-107) mmol/L Glucose (74-99) mg/dL POC Glucose (mg/dL) 119 H 179 H (75-99) mg/dL Assessment and Plan Assessment: Acute COPD exacerbation with failed outpatient therapy Purulent tracheobronchitis Dyslipidemia and GERD Hypothyroidism Degenerative joint disease osteoarthritis especially of lower back History of generalized anxiety disorder depression History of smoking and nicotine use Plan: Maintain patient on breathing treatments Maintain patient on home medications IV steroids, and can be changed to oral Send sputum for culture Patient has been consult about smoking cessation Further recommendations pending plan of care as per clinical response of the patient, can be discharged home with follow-up in outpatient setting Time with Patient: Greater than 30
== END 2017-09-30 16:09 | disposition home or self-care (01) | DRG 191 ==
LOC: EC 17:49 → 5MS5E 22:34 → INTOOBSV 22:34 → 5MS5E 09-28 00:51 → OBSVTOIN 09-29 18:00
PROVIDERS: ADMIT Family Medicine; ATTEND Family Medicine
DX: J44.1 Chronic obstructive pulmonary disease with (acute) exacerbation (principal); J45.31 Mild persistent asthma with (acute) exacerbation; J44.0 Chronic obstructive pulmonary disease with (acute) lower respiratory infection; J20.9 Acute bronchitis, unspecified; E03.9 Hypothyroidism, unspecified; E78.5 Hyperlipidemia, unspecified; F32.9 Major depressive disorder, single episode, unspecified; F41.1 Generalized anxiety disorder; F90.9 Attention-deficit hyperactivity disorder, unspecified type; G89.29 Other chronic pain; K21.9 Gastro-esophageal reflux disease without esophagitis; F17.201 Nicotine dependence, unspecified, in remission; M19.90 Unspecified osteoarthritis, unspecified site; M25.512 Pain in left shoulder; M54.2 Cervicalgia; M54.5 Low back pain; Z79.899 Other long term (current) drug therapy; Z90.710 Acquired absence of both cervix and uterus; Z88.0 Allergy status to penicillin
CPT/HCPCS: 36415; 71046; 80048; 80053; 83036; 85025; 87502; 93005; 94640; 96374; 96375; 99284

== ENCOUNTER 2017-10-20 09:21 | Day surgery (SDC) | payer MEDICARE, OTHER ==
[2017-10-15 14:42] VITALS: BMI 30.2
[2017-10-20 10:22] LABS: Glucose,Whole Blood 110 mg/dL (75-99)
[2017-10-20] MEDS ORDERED: LACTATED RINGERS 1,000 ML IV ONE (10:23)
[2017-10-20] MEDS ORDERED: LIDOCAINE 1% 20 ML VIAL (10MG/ML) FOR IV START INTRADERMA ONE (10:24)
[2017-10-20 10:25] VITALS: RESP 18; TEMP 98
--- NOTE | 2017-10-20 11:20 | P.PCN ---
Date of Procedure: 10/20/17 Preoperative Diagnosis: Cervicogenic headache Postoperative Diagnosis: Cervicogenic headache Anesthesia: MAC (Lidocaine 1% with IV conscious sedation with Versed and fentanyl) Surgeon: Carie Velasquez Pathology: none sent Condition: stable Disposition: PACU Description of Procedure: The patient was seen in the preoperative holding area, the procedure was explained to the patient and her questions were answered. Then she was brought into the procedure room and placed in prone position. Skin was prepped with ChloraPrep and draped in a sterile manner. Lidocaine 1% was used to numb the skin up at the target points that were chosen as follows: For the C2 and C3 medial branches the target points were the center of the trapezoid shaped cervical articular pillars of C2 and C3 on the lateral view of fluoroscopy, and for the third occipital nerve the target point was at the middle of the C2-C3 joint line at the superior, meddle and inferior edges of this joint line. I used 100 mm in length 20-gauge with 10 mm curved active tip radiofrequency ablation needles for this procedure. Motor examination showed only local twitches of these needles with no radiation of twitching to the left upper extremity. After that I injected 0.5 MLS of Marcaine 0.5% with a total of 10 mg of Decadron. Radiofrequency ablation was then started for 90 seconds at 80C and after the first session was done the needles were readjusted and another session of RFA was done. The patient tolerated procedure well. She was monitored in the PACU for 20 minutes and she was discharged home in stable condition.
[2017-10-20] MEDS ORDERED: IV FLUID CONTINUATION 1,000 ML IV ONE (11:28)
--- NOTE | 2017-10-20 11:32 | FL ---
Fluoroscopy HISTORY: Pain 21 seconds fluoroscopy time supplied to the referring clinician. 3 intraoperative C-arm images docum ent the procedure. See dictated report from anesthesia.
[2017-10-20 11:54] VITALS: BP 137/80; PULSE 74
== END 2017-10-20 12:04 | disposition home or self-care (01) ==
LOC: ORPAIN 09:21
PROVIDERS: ATTEND Anesthesiology
DX: G44.89 Other headache syndrome (principal); Z88.0 Allergy status to penicillin
CPT/HCPCS: 64633; 64634; J2250; J1100; J3010; 99152; 99153

== ENCOUNTER 2017-11-16 09:19 | Day surgery (SDC) | payer MEDICARE, OTHER ==
[2017-11-16] MEDS ORDERED: LACTATED RINGERS 1,000 ML IV SCH (10:00)
[2017-11-16 10:28] VITALS: TEMP 98.8
[2017-11-16] MEDS ORDERED: LIDOCAINE 1% 20 ML VIAL (10MG/ML) FOR IV START INTRADERMA ONE (10:29)
[2017-11-16 10:35] LABS: Glucose,Whole Blood 107 mg/dL (75-99)
--- NOTE | 2017-11-16 11:00 | P.PCN ---
Date of Procedure: 11/16/17 Surgeon: Lamin Hendricks Pathology: none sent Condition: stable Disposition: PACU Description of Procedure: PREOPERATIVE DIAGNOSIS: Cervical spondylosis without myelopathy and facet arthropathy. POSTOPERATIVE DIAGNOSIS: Cervical spondylosis without myelopathy and facet arthropathy. PROCEDURES: Radiofrequency thermocoagulation, C2-C3, C3-C4 medial branch and third occipital nerve, with fluoroscopic guidance, right side. ANESTHESIA: Local with 1% lidocaine; conscious sedation EBL: Minimal PROCEDURE INDICATION: The patient with neck pain secondary to cervical arthropathy who had more than 50% relief of her pain with previous diagnostic cervical medial branch block x 2. No use of blood thinners. Patient presents for right sided cervical RFA today with good relief from left side. PROCEDURE DESCRIPTION / TECHNIQUE: The patient was seen and identified in the preoperative area. Risks, benefits, complications, and alternatives were discussed with the patient (with risks including but not limited to bleeding, infection, nerve damage, incomplete pain relief, and allergic reactions to medications), the patient agreed to proceed with the procedure and signed the informed consent after all questions were answered. IV was started. Vital signs remained stable throughout the procedure. Patient was taken to the OR and time out was completed. The patient was placed in the prone position on the procedure table. A pillow was placed under the patients chest to increase the cervical interlaminar space. The cervical area was prepped and draped in the usual sterile fashion. Critical pause was taken. Vital signs were closely monitored during the procedure. Conscious sedation was used during the procedure to decrease patients anxiety. Using cross-table lateral fluoroscopy, the centroid of the trapezoid of C2, C3, and C4 were identified, marked, and localized with 1% lidocaine. Subsequently , a 21 gauge 100-mm radiofrequency cannula with a 5-mm active tip was advanced guided by fluoroscopy to the centroid of the trapezoid of C2, C3 and the C2-C3 facet joint. Needle tip position was confirmed at the centroid of all levels with anteroposterior fluoroscopy. Each site then underwent sensory testing at 50 Hz and 0 to 1 volt and motor testing at 2 Hz and 0 to 3 volt with local stimulation, but no radicular symptoms down the arm. Thereafter all of the sites underwent radiofrequency thermocoagulation at 80 degrees celsius for 90 seconds after injecting 0.5 ml of PF lidocaine 1%. After thermocoagulation, 1 ml of the block solution containing Kenalog 40 mg and 2 mL of preservative-free normal saline was injected at each level after negative aspiration of CSF and blood and with no paresthesias. Cannulas were retracted while injecting lidocaine 1% until the needle is out. Skin was cleansed and bandages were applied. COMPLICATIONS: No acute complications. COMMENTS: DISPOSITION / PLANS: The patient was placed in a supine position and transferred to the recovery area in a stable condition for observation and was discharged from the recovery room after meeting discharge criteria. Home discharge instructions given to the patient by the staff. The patient was reexamined prior to discharge. The patient will schedule a follow up in the clinic in 2-4 weeks as bilateral cervical RFA completed. Of note, I gave the patient a prescription for Dilaudid 4 mg #60 with no refill.
[2017-11-16] MEDS ORDERED: IV FLUID CONTINUATION 500 ML IV ONE (11:10)
[2017-11-16 11:13] VITALS: RESP 16
[2017-11-16 11:33] VITALS: BP 124/71; PULSE 71
--- NOTE | 2017-11-16 11:39 | FL ---
Fluoroscopy HISTORY: Pain 6 seconds fluoroscopy time supplied to the referring clinician. 3 intraoperative C-arm images docume nt the procedure. See dictated report from anesthesia.
== END 2017-11-16 11:50 | disposition home or self-care (01) ==
LOC: ORPAIN 09:19
PROVIDERS: ATTEND Anesthesiology
DX: M47.812 Spondylosis without myelopathy or radiculopathy, cervical region (principal); Z88.0 Allergy status to penicillin
CPT/HCPCS: 64633; 64634; 64450; J2250; J1100; J3010; 99152

== ENCOUNTER → 2017-12-14 | Outpatient (CLI) | payer MEDICARE, OTHER ==
[2017-12-14 13:15] VITALS: BP 135/69; RESP 18
--- NOTE | 2017-12-14 14:11 | P.PN ---
Progress Note - Text Progress Note Date: 12/14/17 Progress Note - Text Patient to follow-up visit status post bilateral cervical radiofrequency ablation. Patient states that she has minimal relief from the RFA, typically she has significant relief with previous RFAs. She describes point tenderness and the site of needle insertion, that has not subsided. Patient says that her pain is 7 out of 10 in severity mostly in her cervical spine radiating down her left arm describes it as sharp, stabbing, shooting, with numbness and tingling. Patient denies adverse drug effects from medications. Today, pt denies new- onset weakness, bowel/bladder incontinence, or any other signs or symptoms of cauda equina syndrome. There are no signs of acute intoxication, and no indications of medication diversion or overuse. The patient's MRI with significant C5-C6 left encroachment of the neural foramen causing significant radiating pain down her left arm to her biceps and forearm. I discussed with her doing a targeted C6-C7 epidural steroid injection to try to provide her with optimal relief in order to minimize her dependency on opiates. Patient agrees after discussing the risks and benefits and will be scheduled for next available time. In addition to above, 13-point review of systems is also negative for chest pain , shortness of breath, changes in vision, changes in hearing, new onset weakness , abdominal pain, diarrhea, extreme fatigue, malaise, fever, skin changes, homicidal or suicidal ideation, or bowel or bladder incontinence. Vital Signs: Reviewed in EMR Gen: WDWN, AAOx3, NAD HEENT: NCAT, EOMI, hearing grossly normal Pulm: resp unlabored Abd: soft, NT, ND Neck: supple, trachea midline Integumentary: Posterior cervical spine skin looks intact no signs of infection or erythema. ROM in flexion cervical spine: reduced ROM in extension cervical spine: reduced Cervical paravertebral tenderness: + Cervical Facet tenderness: + bilateral Spurling's: Positive bilateral Upper extremity: 4/5 bicep flexion left upper extremity, with marginal decrease in left bicep reflex 4/5 tricep extension left upper extremity Marginally decreased handgrip strength in left versus right Interdigit strength 5/5 bilateral Neuro: CN II-XII grossly intact, muscle strength lower extremities PRESERVED Imaging: Reviewed in EMR Assessment: 1. cervical spondylosis without myelopathy 2. Cervical radiculopathy 3. cervical myofascial pain 4. chronic pain syndrome Plan: 1. Explanation: Opioid and psychological risk scores were reviewed. Diagnoses , prognoses, and multiple treatment options including but not limited to physical therapy, interventional therapies, adjuvant medical therapies, narcotic medication therapies, and surgery were discussed with the patient and all questions were answered to the patient's satisfaction. 2. Opioid agreement: Patient has previously signed narcotic agreement, and was orally counseled to not overuse, abuse, divert, or cell medications, and to take them as prescribed by only 1 healthcare provider. The patient was also counseled to store opioid medications in a safe and preferably locked location. Patient was also counseled against driving while using narcotic medications and also to not use alcohol or any illicit or recreational drugs. The patient verbalized understanding that lack of compliance with any of the above and likely result in failure to renew narcotic prescriptions, possible discharge from the clinic, and possible legal ramifications thereafter if indicated. 3. Counseling: The patient was counseled extensively on BODY MASS INDEX, EXERCISE. Specifically, the patient was instructed regarding the importance of weight loss and exercise in the context of both chronic pain and overall health. 4. Procedures: Cervical epidural steroid injection C6-C7 5. Consultations: None 6. Investigations: UDS on next visit 7. Medications: Dilaudid 4 mg, 60 tablets 1 month 8. Disposition: Cervical epidural steroid injection C6-C7 PQRS measures: 1-Patient's medications are documented in the chart. 2-Tobacco use is positive, counseling given 3-Patient has not had a pneumococcal vaccine. 4-Advanced care planning discussed, patient unable to give. 5-Opioid contract signed with the patient. 6-Pain positive, follow-up visit or procedure scheduled 7-Patient's blood pressure measured and documented, and patient will follow up with the primary care due to hypertension. 8-Patient's weight was measured, and body mass index ABOVE the normal limits, and counseling was done. Patient instructed to follow up with PCP. 9-Patient WAS NOT identified as an unhealthy alcohol user.
== END | disposition home or self-care (01) ==
LOC: PNWHC3 12:59
PROVIDERS: ATTEND Anesthesiology
DX: Z09 Encounter for follow-up examination after completed treatment for conditions other than malignant neoplasm (principal); G89.4 Chronic pain syndrome; M54.2 Cervicalgia; M47.22 Other spondylosis with radiculopathy, cervical region; Z98.890 Other specified postprocedural states; Z72.0 Tobacco use
CPT/HCPCS: 99211

== ENCOUNTER → 2017-12-14 | Outpatient (CLI) | payer MEDICARE, OTHER ==
--- NOTE | 2017-12-14 15:22 | CT ---
EXAMINATION TYPE: CT lumbar spine wo con DATE OF EXAM: 12/14/2017 3:12 PM COMPARISON: CT abdomen and pelvis September 17, 2016 HISTORY: Low back pain. CT DLP: 1010 mGycm Automated exposure control for dose reduction was used. Unenhanced CT of the lumbar spine was performed. Bone and soft tissue window settings are submitted as well as coronal and sagittal reconstructions. 5 lumbar-type vertebra are redemonstrated. Lumbar spine redemonstrated stable and satisfactory alignm ent without evidence of acute fracture or dislocation. Posterior interpedicular rods and screws trans fix L5-S1 level. There is stable moderate disc space narrowing at this level. Vertebral body heights and disc space heights above this level are satisfactory. No large posterior disc herniations are see n on sagittal images. Review of axial images shows a T12-L1, L1-L2, and L2-L3 levels to appear within normal limits. Axial images at L3-L4 level show mild facet degenerative changes bilaterally with mild broad disc bul ge but spinal canal is preserved and bilateral neural foramina are patent on axial image 47. Axial images at L4-L5 level show mild facet degenerative changes and ligamentum flavum hypertrophy an d mild broad disc bulge mildly effacing anterior thecal sac. There is mild bilateral anterior inferio r neural foraminal narrowing. Axial images at L5-S1 level show artifact from surgical change making evaluation at this level subopt imal. There is mild facet arthropathy bilateral neural foramina are felt patent on sagittal images. There is mild to moderate calcified plaque in the overlying abdominal aorta. IMPRESSION: Persistent postsurgical change L5-S1 level with stable and satisfactory alignment. Some multilevel de generative changes mid to lower lumbar spine are seen as detailed above.
== END | disposition home or self-care (01) ==
LOC: RADCTMAIN 14:31
PROVIDERS: ATTEND Neurological Surgery
DX: M48.061 Spinal stenosis, lumbar region without neurogenic claudication (principal); M99.73 Connective tissue and disc stenosis of intervertebral foramina of lumbar region; M47.816 Spondylosis without myelopathy or radiculopathy, lumbar region; M46.96 Unspecified inflammatory spondylopathy, lumbar region
CPT/HCPCS: 72131

== ENCOUNTER 2017-12-21 09:30 | Day surgery (SDC) | payer MEDICARE, OTHER ==
[2017-12-15 11:34] VITALS: BMI 30.2
[2017-12-21] MEDS ORDERED: LACTATED RINGERS 1,000 ML IV SCH (11:29)
[2017-12-21 11:47] VITALS: RESP 16; TEMP 98.5
[2017-12-21] MEDS ORDERED: LIDOCAINE 1% 20 ML VIAL (10MG/ML) FOR IV START INTRADERMA ONE (12:00)
--- NOTE | 2017-12-21 12:18 | P.PCN ---
Date of Procedure: 12/21/17 Procedure(s) Performed: . PROCEDURE 1. Cervical epidural steroid injection under fluoroscopic guidance, C6-7 2. Cervical epidurogram. PREOPERATIVE DIAGNOSIS: 1- Cervical radiculopathy., 2-cervical spondylosis with cervical Facet arthropathy without myelopathy POSTOPERATIVE DIAGNOSIS: : 1- Cervical radiculopathy. 2-,cervical spondylosis with cervical Facet arthropathy without myelopathy ANESTHESIA: Local anesthesia with 1% lidocaine and IV sedation with Versed 2 mg and Fentanyl 100 mcg. EBL 0 PROCEDURE INDICATION: The patient with neck pain and radiculitis unresponsive to conservative treatment consents for procedure. PROCEDURE DESCRIPTION / TECHNIQUE: The patient was seen and identified in the preoperative area. Risks, benefits, complications, including but not limited to infections ,bleeding , allergic reactions to the medications ,and not complete pain releife, and alternatives were discussed with the patient, the patient agreed to proceed with the procedure and signed the consent. Patient was taken to the OR and time out was completed. The patient was placed in the prone position on the procedure table. A pillow was placed under the patients chest to increase the cervical interlaminar space. The cervical area was prepped and draped in the usual sterile fashion. Vital signs were closely monitored during the procedure. Conscious sedation was used during the procedure to decrease patients anxiety. Using anterior-posterior fluoroscopy, the C6-7 interlaminar space was identified and the skin over this site was marked and then infiltrated with 1% lidocaine subcutaneously. Subsequently, a 20-gauge 3-1/2-inch Tuohy epidural needle was inserted and advanced toward the epidural space by means of the `` hanging-drop technique and guided by AP and lateral fluoroscopy. The correct needle position in the epidural space was verified with the injection of 2 mL of the water soluble contrast dye Isovue-200 and observing an excellent epidurogram with the epidural spread of the dye, after negative aspiration for blood and CSF and in the absence of paresthesias. Again after negative aspiration, mixture containing 20 mg Dexamethasone and 2 ml of preservative- free normal saline injected and a washout of epidurogram was seen. Needle was withdrawn intact, skin was cleansed, and bandages were applied. Complications= none. Disposition= patient was placed in supine position and transferred to the recovery room area in stable condition and there was no evidence of upper or lower extremity motor or sensory deficit after the procedure patient was discharged from recovery room after discharge criteria met and home discharge instructions was given by the staff and patient will follow with the pain clinic in 2-4 weeks
[2017-12-21] MEDS ORDERED: IV FLUID CONTINUATION 700 ML IV ONE (12:32)
--- NOTE | 2017-12-21 12:52 | FL ---
EXAMINATION TYPE: FL guided pain mgmt statistic DATE OF EXAM: 12/21/2017 CLINICAL HISTORY: Neck pain. TECHNIQUE: Fluoroscopy. COMPARISON: None. FINDINGS: Fluoroscopic guidance was provided during pain relief procedure performed by Dr. Castanon . A total of 8 seconds of fluoroscopic time was utilized during the procedure and one spot intraoper ative fluoroscopic images acquired. Single image acquired shows needle localization at roughly C6 le kush. IMPRESSION: As Above.
[2017-12-21 12:57] VITALS: BP 108/67; PULSE 78
== END 2017-12-21 12:58 | disposition home or self-care (01) ==
LOC: ORPAIN 09:30
PROVIDERS: ATTEND Specialist
DX: M47.22 Other spondylosis with radiculopathy, cervical region (principal); Z88.0 Allergy status to penicillin
CPT/HCPCS: 62321; J2250; J1100; J3010; Q9966

== ENCOUNTER 2018-01-19 08:53 | Day surgery (SDC) | payer MEDICARE, OTHER ==
[2018-01-11 10:42] VITALS: BMI 29.2
[2018-01-19 10:06] VITALS: RESP 16; TEMP 98
[2018-01-19] MEDS ORDERED: LIDOCAINE 1% 20 ML VIAL (10MG/ML) FOR IV START INTRADERMA ONE (10:20)
--- NOTE | 2018-01-19 10:46 | P.PCN ---
Date of Procedure: 01/19/18 Description of Procedure: Date of Procedure: 12/21/17 Procedure(s) Performed: . PROCEDURE 1. Cervical epidural steroid injection under fluoroscopic guidance, C7-T1 2. Cervical epidurogram. PREOPERATIVE DIAGNOSIS: 1- Cervical radiculopathy., 2-cervical spondylosis with cervical Facet arthropathy without myelopathy POSTOPERATIVE DIAGNOSIS: : 1- Cervical radiculopathy. 2-,cervical spondylosis with cervical Facet arthropathy without myelopathy ANESTHESIA: Local anesthesia with 1% lidocaine and IV moderate conscious sedation with Versed and Fentanyl. EBL 0 PROCEDURE INDICATION: The patient with neck pain and radiculitis unresponsive to conservative treatment consents for procedure. PROCEDURE DESCRIPTION / TECHNIQUE: The patient was seen and identified in the preoperative area. Risks, benefits, complications, including but not limited to infections ,bleeding , allergic reactions to the medications ,and not complete pain releife, and alternatives were discussed with the patient, the patient agreed to proceed with the procedure and signed the consent. Patient was taken to the OR and time out was completed. The patient was placed in the prone position on the procedure table. A pillow was placed under the patients chest to increase the cervical interlaminar space. The cervical area was prepped and draped in the usual sterile fashion. Vital signs were closely monitored during the procedure. Conscious sedation was used during the procedure to decrease patients anxiety. Using anterior-posterior fluoroscopy, the C7-T1 interlaminar space was identified and the skin over this site was marked and then infiltrated with 1% lidocaine subcutaneously. Subsequently, a 20-gauge 3-1/2-inch Tuohy epidural needle was inserted and advanced toward the epidural space by loss of resistance technique in the left paramedian approach and guided by AP and lateral fluoroscopy. The correct needle position in the epidural space was verified with the injection of 1 mL of the water soluble contrast dye Isovue- 200 and observing an excellent epidurogram with the epidural spread of the dye , after negative aspiration for blood and CSF and in the absence of paresthesias. Again after negative aspiration, mixture containing 10 mg Dexamethasone and 3 ml of preservative-free normal saline injected and a washout of epidurogram was seen. Needle was withdrawn intact, skin was cleansed , and bandages were applied. Complications= none. Disposition= patient was placed in supine position and transferred to the recovery room area in stable condition and there was no evidence of upper or lower extremity motor or sensory deficit after the procedure patient was discharged from recovery room after discharge criteria met and home discharge instructions was given by the staff and patient will follow with the pain clinic in 2-4 weeks. The patient will have surgery on her neck on March 07 as she states.
[2018-01-19] MEDS ORDERED: IV FLUID CONTINUATION 1,000 ML IV ONE (10:52)
--- NOTE | 2018-01-19 10:56 | FL ---
Fluoroscopy INDICATION: Pain FINDINGS: Fluoroscopy time: 6 seconds. Images obtained: 1. IMPRESSIONS: 1. Documentation of fluoroscopy.
[2018-01-19 11:29] VITALS: BP 128/66; PULSE 70
== END 2018-01-19 11:30 | disposition home or self-care (01) ==
LOC: ORPAIN 08:53
PROVIDERS: ATTEND Anesthesiology
DX: M47.812 Spondylosis without myelopathy or radiculopathy, cervical region (principal); M54.12 Radiculopathy, cervical region; J45.909 Unspecified asthma, uncomplicated; F90.9 Attention-deficit hyperactivity disorder, unspecified type; Z88.0 Allergy status to penicillin
CPT/HCPCS: 62321; J2250; J1100; J3010; Q9966

== ENCOUNTER → 2018-02-08 | Outpatient (CLI) | payer MEDICARE, OTHER ==
[2018-02-08 14:23] VITALS: BP 128/66; PULSE 87; RESP 18
--- NOTE | 2018-02-08 14:36 | P.PN ---
Progress Note - Text Progress Note Date: 02/08/18 Patient returns for followup for chronic neck pain with radiation to head in left arm along with non-radiating back pain. Patient is planning to have cervical spine surgery in February and is asking what to do about extra medications. Patient continues on Dilaudid and Flexeril medications for pain with some relief. Patient denies adverse drug effects from medications. Today , pt denies new-onset weakness, bowel/bladder incontinence, or any other signs or symptoms of cauda equina syndrome. There are no signs of acute intoxication, and no indications of medication diversion or overuse. In addition to above, 13-point review of systems is also negative for chest pain , shortness of breath, changes in vision, changes in hearing, new onset weakness , abdominal pain, diarrhea, extreme fatigue, malaise, fever, skin changes, homicidal or suicidal ideation, or bowel or bladder incontinence. Vital Signs: Reviewed in EMR Gen: WDWN, AAOx3, NAD HEENT: NCAT, EOMI, hearing grossly normal Pulm: resp unlabored Abd: soft, NT, ND Neck: supple, trachea midline Cervical paravertebral tenderness: + Cervical Facet tenderness: + bilateral Spurling's: + LUE Imaging: Reviewed in EMR Assessment: 1. cervical spondylosis without myelopathy 2. cervical myofascial pain 3. chronic pain syndrome 4. lumbar PLPS Plan: 1. Explanation: Opioid and psychological risk scores were reviewed. Diagnoses , prognoses, and multiple treatment options including but not limited to physical therapy, interventional therapies, adjuvant medical therapies, narcotic medication therapies, and surgery were discussed with the patient and all questions were answered to the patient's satisfaction. 2. Opioid agreement: Patient has previously signed narcotic agreement, and was orally counseled to not overuse, abuse, divert, or cell medications, and to take them as prescribed by only 1 healthcare provider. The patient was also counseled to store opioid medications in a safe and preferably locked location. Patient was also counseled against driving while using narcotic medications and also to not use alcohol or any illicit or recreational drugs. The patient verbalized understanding that lack of compliance with any of the above and likely result in failure to renew narcotic prescriptions, possible discharge from the clinic, and possible legal ramifications thereafter if indicated. 3. Counseling: The patient was counseled extensively on BODY MASS INDEX, EXERCISE. Specifically, the patient was instructed regarding the importance of weight loss and exercise in the context of both chronic pain and overall health. 4. Procedures: none for now 5. Consultations: None 6. Investigations: UDS appropriate from last visit; MAPS queried and appropriate 7. Medications: Dilaudid 4 mg #90 with one refill; opioid consent signed today 8. MME/day: 32 (unchanged) 8. Disposition: f/u for re-eval in 8 weeks. Of note, the patient was warned regarding the addictive nature of stimulants and opioids. The patient verbalized understanding and acceptance of these risks. Patient will get extra opioids from neurosurgeon Dr. Luke after procedure if needed. PQRS measures: 1-Patient's medications are documented in the chart. 2-Tobacco use is positive, counseling given 3-Patient has not had a pneumococcal vaccine. 4-Advanced care planning discussed, patient unable to give. 5-Opioid contract signed with the patient. 6-Pain positive, follow-up visit or procedure scheduled 7-Patient's blood pressure measured and documented, and patient will follow up with the primary care due to hypertension. 8-Patient's weight was measured, and body mass index ABOVE the normal limits, and counseling was done. Patient instructed to follow up with PCP. 9-Patient WAS NOT identified as an unhealthy alcohol user.
== END | disposition home or self-care (01) ==
LOC: PNWHC3 14:08
PROVIDERS: ATTEND Anesthesiology
DX: G89.4 Chronic pain syndrome (principal); M47.812 Spondylosis without myelopathy or radiculopathy, cervical region; M79.1 Myalgia; M96.1 Postlaminectomy syndrome, not elsewhere classified; M54.2 Cervicalgia; Z79.899 Other long term (current) drug therapy; Z72.0 Tobacco use
CPT/HCPCS: 99211

== ENCOUNTER 2018-03-18 13:24 | Emergency (ER) | payer MEDICARE, OTHER ==
[2018-03-18 13:41] VITALS: RESP 18
--- NOTE | 2018-03-18 14:44 | ED ---
General Adult HPI - General Chief complaint: Skin/Abscess/Foreign Body Stated complaint: Rash Time Seen by Provider: 03/18/18 14:37 Source: patient, RN notes reviewed Mode of arrival: ambulatory Limitations: no limitations - History of Present Illness Initial comments: 52-year-old female since to the emergency department for a chief complaint of rash 2 days. Patient states the rash is pruritic. Patient denies any shortness of breath, or swelling of the lips tongue or throat. Patient states she took children's Benadryl once but it did not help. Patient's states she did start using new laundry detergent as well as body wash in the past few days. Patient denies starting any new medications. Patient has no other complaints at this time including shortness of breath, chest pain, abdominal pain, nausea or vomiting, headache, or visual changes. - Related Data Home Medications Medication Instructions Recorded Confirmed Albuterol Inhaler [Ventolin Hfa 1 puff INHALATION RT-QID PRN 12/21/13 02/08/18 Inhaler] Loratadine 10 mg PO QAM 01/10/14 02/08/18 Ezetimibe [Zetia] 10 mg PO HS 09/05/14 02/08/18 Fluticasone Propionate 1 spray EA NOSTRIL BID 11/25/15 02/08/18 Citalopram Hydrobromide [CeleXA] 40 mg PO QAM 12/10/15 02/08/18 Methylphenidate HCl [Ritalin] 20 mg PO TID 12/10/15 02/08/18 OXcarbazepine [Trileptal] 600 mg PO BID 12/10/15 02/08/18 Levothyroxine Sodium [Synthroid] 25 mcg PO DAILY 03/13/16 02/08/18 Atorvastatin [Lipitor] 10 mg PO HS 07/20/16 02/08/18 Simethicone [Gas-X] 125 mg PO Q8H PRN 10/19/16 02/08/18 Dicyclomine [Bentyl] 10 mg PO BID PRN 11/13/16 02/08/18 Omeprazole 40 mg PO HS 11/13/16 02/08/18 traZODone HCL 50 mg PO HS 11/13/16 02/08/18 Estradiol [Estrace] 0.5 mg PO DAILY 02/03/17 02/08/18 clonazePAM [KlonoPIN] 0.5 mg PO BID PRN 05/03/17 02/08/18 Varenicline [Chantix Continuing 1 mg PO BID 05/27/17 02/08/18 Pack] busPIRone HCL [Buspar] 30 mg PO BID 07/05/17 02/08/18 Previous Rx's Medication Instructions Recorded Ipratropium-Albuterol Nebulize 3 ml INHALATION QID #1 neb 09/30/17 [Duoneb 0.5 mg-3 mg/3 ml Soln] Cyclobenzaprine [Flexeril] 10 mg PO BID PRN #60 tab 02/08/18 HYDROmorphone [Dilaudid] 4 mg PO Q12H PRN 30 Days #60 tab 02/08/18 HYDROmorphone [Dilaudid] 4 mg PO Q12H PRN 30 Days #60 tab 02/08/18 diphenhydrAMINE HCL [Benadryl] 50 mg PO Q6H PRN #30 tab 03/18/18 predniSONE 50 mg PO DAILY #5 tablet 03/18/18 Allergies Allergy/AdvReac Type Severity Reaction Status Date / Time Penicillins Allergy Rash/Hives Verified 03/18/18 13:41 Review of Systems ROS Statement: Those systems with pertinent positive or pertinent negative responses have been documented in the HPI. ROS Other: All systems not noted in ROS Statement are negative. Past Medical History Past Medical History: Asthma, COPD, GERD/Reflux, Hyperlipidemia, Musculoskeletal Disorder, Osteoarthritis (OA), Syncope, Thyroid Disorder Additional Past Medical History / Comment(s): KIDNEY STONES, hypoglycemia chronic neck and L shoulder pain- CHRONIC LOWER BACK PAIN hx L facial and L ankle fxs, sinus problems, vertigo, falls in past, low BP at times. 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 Bunionectomies , surgery L fx foot-alix placed & removed, lithotripsy and stent placed and removed, laser eye surgery bilaterally, EGD, Colonoscopy. PAIN clinic procedures. Rectocele repair. neck surgery- fusion and plate. Past Anesthesia/Blood Transfusion Reactions: Previous Problems w/ Anesthesia Additional Past Anesthesia/Blood Transfusion Reaction / Comment(s): "Takes longer to wake up from anesthesia." Past Psychological History: ADD/ADHD, Anxiety, Depression Smoking Status: Former smoker Past Alcohol Use History: None Reported Past Drug Use History: None Reported - Past Family History Mother Family Medical History: Cancer, Thyroid Disorder Additional Family Medical History / Comment(s): Mother of LUNG cancer at age 64 yrs. Father Family Medical History: Asthma, COPD, Osteoarthritis (OA) Additional Family Medical History / Comment(s): Father at age 80 yrs. General Exam Limitations: no limitations General appearance: alert, in no apparent distress Eye exam: Present: normal appearance. Absent: scleral icterus, conjunctival injection ENT exam: Present: normal exam, normal oropharynx (patent, uvula midline. No swelling of the lips tongue or throat), mucous membranes moist, TM's normal bilaterally, normal external ear exam, other (patient does have hives around eyes) Neck exam: Present: other (patient has c- collar inplace from recent surgery on March 07) Respiratory exam: Present: normal lung sounds bilaterally. Absent: respiratory distress, wheezes, rales, rhonchi, stridor Cardiovascular Exam: Present: regular rate, normal rhythm, normal heart sounds. Absent: systolic murmur, diastolic murmur, rubs, gallop, clicks Skin exam: Present: rash (patient has generalized raised, pruritic erythematous plaques with central clearing consistent with hives on the extermities and trunk ) Course Vital Signs 03/18/18 13:38 Temperature 98.1 F Pulse Rate 98 Respiratory 18 Rate Blood Pressure 97/63 O2 Sat by Pulse 99 Oximetry Medical Decision Making - Medical Decision Making 52-year-old female to the emergency department for hives 2 days. Patient has had a new detergent started. No difficulty breathing or shortness of breath. No swelling in the lips tongue or throat. Patient has generalized hives over the body that are pruritic and raised in nature. They are not confluent. Patient given Benadryl and steroids in the emergency department. Reassessed patient and patient again states no swelling to the lips tongue or throat or any difficulty breathing. Patient states her blood pressure generally runs low. She will be given a prescription of Benadryl and steroids. She will follow-up with primary care in 1-2 days. Patient aware to return immediately to the emergency Department if she developed any shortness of breath or swelling of the lips tongue or throat. Disposition Clinical Impression: Urticaria Disposition: HOME SELF-CARE Condition: Good Instructions: Urticaria (ED) Additional Instructions: Please take steroids starting tomorrow. Please take Benadryl as directed. Do not drive or operate machinery while taking Benadryl. Follow up with primary care in 1-2 days. Return immediately to the emergency department if you develop any difficulty breathing or swelling of the lips tongue or throat. Prescriptions: diphenhydrAMINE HCL [Benadryl] 50 mg PO Q6H PRN #30 tab PRN Reason: Rash predniSONE 50 mg PO DAILY #5 tablet Is patient prescribed a controlled substance at d/c from ED?: No Referrals: Ihsan Ding DO [Primary Care Provider] - 1-2 days Time of Disposition: 15:37
[2018-03-18] MEDS ORDERED: diphenhydrAMINE 50 MG CAP PO STA (14:56)
[2018-03-18] MEDS ORDERED: methylPREDNISolone SOD SUCCI 125 MG/2 ML VIAL IM ONE (14:56)
[2018-03-18] MEDS ORDERED: FAMOTIDINE 20 MG TAB PO STA (14:57)
[2018-03-18 15:58] VITALS: BP 118/58; PULSE 71; TEMP 98.3
== END 2018-03-18 15:57 | disposition home or self-care (01) ==
LOC: EC 13:24
DX: L50.9 Urticaria, unspecified (principal); J44.9 Chronic obstructive pulmonary disease, unspecified; K21.9 Gastro-esophageal reflux disease without esophagitis; E78.5 Hyperlipidemia, unspecified; M19.90 Unspecified osteoarthritis, unspecified site; E07.9 Disorder of thyroid, unspecified; F90.9 Attention-deficit hyperactivity disorder, unspecified type; F32.9 Major depressive disorder, single episode, unspecified; F41.9 Anxiety disorder, unspecified; Z87.891 Personal history of nicotine dependence; Z79.3 Long term (current) use of hormonal contraceptives; Z79.51 Long term (current) use of inhaled steroids; Z79.899 Other long term (current) drug therapy
CPT/HCPCS: 99282; 96372; J2930

== ENCOUNTER → 2018-04-05 | Outpatient (CLI) | payer MEDICARE, OTHER ==
[2018-04-05 12:37] VITALS: BP 133/74; PULSE 94; RESP 18; TEMP 98.4
--- NOTE | 2018-04-06 13:30 | P.PAINPG ---
Subjective Progress Note Date: 04/05/18 This is follow-up visit for this patient with a history of severe and chronic neck pain secondary to cervical spondylosis , patient had cervical fusion surgery done a few weeks ago, [facility] The patient currently on Dilaudid 4 mg twice a day Patient denies any side effect of the medication , patient denies any excessive drowsiness or sleepiness, patient denies any suicidal ideation, Patient reported that the current medication is helping to control the pain and improve the activity of daily livings, Patient denies any motor or sensory deficit, denies any change in the bowel movement or urination, patient denies any fever or night sweats., But she reported that current medication is not helping enough to control her pain and the Dilaudid lasting only 4 hours Objective - Vital Signs Vital signs: Vital Signs Temp 98.4 F 04/05/18 12:29 Pulse 94 04/05/18 12:29 Resp 18 04/05/18 12:29 BP 133/74 04/05/18 12:29 Pulse Ox Intake & Output 04/05/18 04/06/18 04/06/18 18:59 06:59 18:59 Weight 77.111 kg - Exam Physical Examinations : 1-Constitutiona : Cooperative , not in acute distress . 2-HEENT : nech ; supple , no Lymphadenopathy , normal thyroid size . eyes : no ptosis , no icterus , no photophobia . ENT : normal of hearing , normal oropharynx , no Thrush . 3- Respiratory : Chest clear to auscultations Bilaterally , no wheezing , no Rhonchi . 4- Cardiovascular : regular rate and rhythem , S1 , S2 , no S3 , no S4. 5- Gastrointestinal : abdomen soft no tenderness , bowel sounds , no organomegally . 6- Genitourinary : Defferred . 7- neurologic : Cranial nerve II to XII intact , no focal neurological deffecit . 8-psychatric : alert , oriented X 3 , appropriate affect , intact judgment and insight . 9-Lymphatic : no Lymphadenopathy . 10- musculoskeltal : Cervical Spine motor stregnth in the deltoid and biceps, normal right side , normal Left side motor stregnth biceps and the wrist extensors normal right side ,normal left side . motor stregnth in the triceps muscle . normal Right side , normal Left side deep tendon reflexes normal at the biceps , normal at Brachioradialis , normal at triceps. The patient still have neck collar ( soft ). Lumber spine moter stegnth lower extremities ,thigh and legs 5/5 Right side , 5/5 Left side Assessment and Plan Plan: Assessment and plan= chronic neck pain secondary to cervical spondylosis, status post cervical fusion surgery done a few weeks ago chronic and current use of high-risk medication (opioids) Patient denies any side effects of the current pain medication and the current treatment/medication helping the patient to do activity of daily living , Diagnoses, prognosis, treatment options, including but not limited to physical therapy, medication management, interventional therapies, and surgery, were discussed with the patient All the questions answered The narcotic consent was signed and patient agreed and understood the side effects and complications of opioid treatment. Patient signed the narcotic agreement, and was orally counseled, not to overuse, not to abuse, not to Divert , not tp sell pain medication, and to take it as prescribed only, Patient was counseled not to drive or operate heavy equipment while using narcotic medication, and advised not to use alcohol or any Illicit drugs while using the narcotis, the patient's verbalized understanding that lack of compliance with any of the above instructions, will likely to cause discharge from, the pain service, not to renew his narcotic prescriptions Medication managements= patient reported that the current medication/ Dilaudid 4 mg every 12 hours is not helping enough, I explained to the patient that her pain should be improving by now after the surgery and the best option discontinued Dilaudid , start [place] 10/325 every 6 hours dispensed 90 and she will be seen in the pain clinic in 4 weeks and reevaluate at next visit we'll do urine drug screen , PQRS Measure Charge Sheet Measure #130: Documentation of Current Meds in Medical Chart: Patient's medications documented in chart Measure #226: Tobacco Use: Screen & Cessation Intervention: Pt screened for tobacco use AND intervention given Measure #111: Pneumonia Vaccination: Pneumococcal vaccine administered or previously received Measure #47: Advance Care Plan: Advance care planning discussed & documented, pt chose/unable to give Measure #412: Opioid Treatment Agreement: Documented signed opioid trtmnt agreemnt min once during opioid trtmnt Measure #408: Opioid Therapy Follow-up Evaluation: Patient had f/u eval minimum every 3 months during opioid therapy Measure #317: Preventitive Care & Scrn High Bld Press & F/U: Normal blood pressure, f/u not required Measure #128: Body Mass Index (BMI) Screening & Follow-up: BMI documented ABOVE normal parameters - f/u documented Measure #131: Pain Assessment & Follow-up: Pain positive & plan documented, Follow-up scheduled Measure #431: Unhealthy Alcohol Use Preventative Care & Scrn: Patient not identified as an unhealthy alcohol user PQRS Narrative: Smoking Status Former smoker Do You Want the Pneumonia Vaccine Up to Date Vaccine AT THIS TIME? Narcotic Agreement Date Signed 08/05/16 Blood Pressure 133/74 Pain Intensity [Right Lower 8 Back] Pain Intensity [Neck] 8 Hx Alcohol Use (MH) No Home Medications: Ambulatory Orders Albuterol Inhaler [Ventolin Hfa Inhaler] 1 puff INHALATION RT-QID PRN 12/21/13 Loratadine 10 mg PO QAM 01/10/14 Ezetimibe [Zetia] 10 mg PO HS 09/05/14 Fluticasone Propionate 1 spray EA NOSTRIL BID 11/25/15 Citalopram Hydrobromide [CeleXA] 40 mg PO QAM 12/10/15 Methylphenidate HCl [Ritalin] 20 mg PO TID 12/10/15 OXcarbazepine [Trileptal] 600 mg PO BID 12/10/15 Levothyroxine Sodium [Synthroid] 25 mcg PO DAILY 03/13/16 Atorvastatin [Lipitor] 10 mg PO HS 07/20/16 Simethicone [Gas-X] 125 mg PO Q8H PRN 10/19/16 Dicyclomine [Bentyl] 10 mg PO BID PRN 11/13/16 Omeprazole 40 mg PO HS 11/13/16 traZODone HCL 50 mg PO HS 11/13/16 Estradiol [Estrace] 0.5 mg PO DAILY 02/03/17 clonazePAM [KlonoPIN] 0.5 mg PO BID PRN 05/03/17 Varenicline [Chantix Continuing Pack] 1 mg PO BID 05/27/17 busPIRone HCL [Buspar] 30 mg PO BID 07/05/17 Ipratropium-Albuterol Nebulize [Duoneb 0.5 mg-3 mg/3 ml Soln] 3 ml INHALATION QID #1 neb 09/30/17 Cyclobenzaprine [Flexeril] 10 mg PO BID PRN #60 tab 02/08/18 diphenhydrAMINE HCL [Benadryl] 50 mg PO Q6H PRN #30 tab 03/18/18 HYDROcodone/APAP 10-325MG [[place] 10-325] 1 tab PO Q8HR PRN 30 Days #90 tab 04/05 Controlled Substance Measures - Controlled Substance Measures Is patient prescribed a controlled substance at discharge?: Yes When asked, does pt state using other controlled substances?: No If prescribed controlled substance>3 days was MAPS reviewed?: Yes If Rx opioid, was Start Talking consent form obtained?: Yes If opioid is for acute pain is fill amount 7 days or less?: No Was information provided regarding opioid addiction?: Yes
== END | disposition home or self-care (01) ==
LOC: PNWHC3 12:12
PROVIDERS: ATTEND Specialist
DX: G89.29 Other chronic pain (principal); M47.812 Spondylosis without myelopathy or radiculopathy, cervical region; Z98.1 Arthrodesis status; Z87.891 Personal history of nicotine dependence; Z79.891 Long term (current) use of opiate analgesic; Z79.51 Long term (current) use of inhaled steroids; Z79.899 Other long term (current) drug therapy
CPT/HCPCS: 99211

== ENCOUNTER 2018-04-13 10:53 | Emergency (ER) | payer MEDICARE, OTHER ==
[2018-04-13 10:57] VITALS: BP 128/67; PULSE 90; RESP 20; TEMP 98.2
--- NOTE | 2018-04-13 11:09 | ED ---
Neck Injury/Pain HPI - General Chief Complaint: Neck Pain/Injury Stated Complaint: Head Injury Time Seen by Provider: 04/13/18 10:59 Source: patient, RN notes reviewed Mode of arrival: ambulatory Limitations: no limitations - History of Present Illness Initial Comments: 52-year-old female presents emergency Department with chief complaint of neck pain. Patient states she had surgery at the beginning of February at [facility] in which she had a discectomy, hardware placement. Patient states that she was doing better had follow-up appointment states that she can taken cervical collar off at nighttime though she states she works down in her bed and struck her head. She states his happened 4 days ago and now complains of neck pain. She states she had some crunching in her neck. She did call her surgeon who told her that she can go to either to local ER or drug on [facility] in which he is working currently. Patient denies any upper extremity weakness or paresthesias. Denies any headache at this time no blurred vision no confusion. - Related Data Home Medications Medication Instructions Recorded Confirmed Albuterol Inhaler [Ventolin Hfa 1 puff INHALATION RT-QID PRN 12/21/13 04/05/18 Inhaler] Loratadine 10 mg PO QAM 01/10/14 04/05/18 Ezetimibe [Zetia] 10 mg PO HS 09/05/14 04/05/18 Fluticasone Propionate 1 spray EA NOSTRIL BID 11/25/15 04/05/18 Citalopram Hydrobromide [CeleXA] 40 mg PO QAM 12/10/15 04/05/18 Methylphenidate HCl [Ritalin] 20 mg PO TID 12/10/15 04/05/18 OXcarbazepine [Trileptal] 600 mg PO BID 12/10/15 04/05/18 Levothyroxine Sodium [Synthroid] 25 mcg PO DAILY 03/13/16 04/05/18 Atorvastatin [Lipitor] 10 mg PO HS 07/20/16 04/05/18 Simethicone [Gas-X] 125 mg PO Q8H PRN 10/19/16 04/05/18 Dicyclomine [Bentyl] 10 mg PO BID PRN 11/13/16 04/05/18 Omeprazole 40 mg PO HS 11/13/16 04/05/18 traZODone HCL 50 mg PO HS 11/13/16 04/05/18 Estradiol [Estrace] 0.5 mg PO DAILY 02/03/17 04/05/18 clonazePAM [KlonoPIN] 0.5 mg PO BID PRN 05/03/17 04/05/18 Varenicline [Chantix Continuing 1 mg PO BID 05/27/17 04/05/18 Pack] busPIRone HCL [Buspar] 30 mg PO BID 07/05/17 04/05/18 Previous Rx's Medication Instructions Recorded Ipratropium-Albuterol Nebulize 3 ml INHALATION QID #1 neb 09/30/17 [Duoneb 0.5 mg-3 mg/3 ml Soln] Cyclobenzaprine [Flexeril] 10 mg PO BID PRN #60 tab 02/08/18 diphenhydrAMINE HCL [Benadryl] 50 mg PO Q6H PRN #30 tab 03/18/18 HYDROcodone/APAP 10-325MG [[place] 1 tab PO Q8HR PRN 30 Days #90 tab 04/05/18 10-325] Allergies Allergy/AdvReac Type Severity Reaction Status Date / Time Penicillins Allergy Rash/Hives Verified 04/13/18 10:57 Review of Systems ROS Statement: Those systems with pertinent positive or pertinent negative responses have been documented in the HPI. ROS Other: All systems not noted in ROS Statement are negative. Past Medical History Past Medical History: Asthma, COPD, GERD/Reflux, Hyperlipidemia, Musculoskeletal Disorder, Osteoarthritis (OA), Syncope, Thyroid Disorder Additional Past Medical History / Comment(s): KIDNEY STONES, hypoglycemia chronic neck and L shoulder pain- CHRONIC LOWER BACK PAIN hx L facial and L ankle fxs, sinus problems, vertigo, falls in past, low BP at times. 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 Bunionectomies , surgery L fx foot-alix placed & removed, lithotripsy and stent placed and removed, laser eye surgery bilaterally, EGD, Colonoscopy. PAIN clinic procedures. Rectocele repair. neck surgery- fusion and plate. Past Anesthesia/Blood Transfusion Reactions: Previous Problems w/ Anesthesia Additional Past Anesthesia/Blood Transfusion Reaction / Comment(s): "Takes longer to wake up from anesthesia." Past Psychological History: ADD/ADHD, Anxiety, Depression Smoking Status: Former smoker Past Alcohol Use History: None Reported Past Drug Use History: None Reported - Past Family History Mother Family Medical History: Cancer, Thyroid Disorder Additional Family Medical History / Comment(s): Mother of LUNG cancer at age 64 yrs. Father Family Medical History: Asthma, COPD, Osteoarthritis (OA) Additional Family Medical History / Comment(s): Father at age 80 yrs. General Exam Limitations: no limitations General appearance: alert, in no apparent distress Head exam: Present: atraumatic, normocephalic, normal inspection Eye exam: Present: normal appearance, PERRL, EOMI. Absent: scleral icterus, conjunctival injection, periorbital swelling ENT exam: Present: normal exam, normal oropharynx, mucous membranes moist Neck exam: Present: normal inspection, tenderness (Mild right paraspinal tenderness no vertebral tenderness), full ROM. Absent: meningismus, lymphadenopathy Respiratory exam: Present: normal lung sounds bilaterally. Absent: respiratory distress, wheezes, rales, rhonchi, stridor Cardiovascular Exam: Present: regular rate, normal rhythm, normal heart sounds. Absent: systolic murmur, diastolic murmur, rubs, gallop, clicks Neurological exam: Present: alert, oriented X3, CN II-XII intact, reflexes normal. Absent: motor sensory deficit Skin exam: Present: warm, dry, intact, normal color. Absent: rash Course Vital Signs 04/13/18 10:55 Temperature 98.2 F Pulse Rate 90 Respiratory 20 Rate Blood Pressure 128/67 O2 Sat by Pulse 98 Oximetry Medical Decision Making - Medical Decision Making 52-year-old female presents emergency Department for neck pain after injury. Patient is postsurgical there is evidence of listhesis at C6-C7 though one reviewed MRI this is present. Case is discussed with Dr. Louise. Patient is advised to follow-up with her surgeon tomorrow return for any worsening symptoms. Patient has no neurological deficits no upper extremity weakness paresthesias. Disposition Clinical Impression: Neck pain Disposition: HOME SELF-CARE Condition: Stable Instructions: Cervical Strain (ED) Additional Instructions: Please return to the Emergency Department if symptoms worsen or any other concerns. Is patient prescribed a controlled substance at d/c from ED?: No Referrals: Ihsan Ding DO [Primary Care Provider] - 1-2 days Time of Disposition: 12:00
--- NOTE | 2018-04-13 11:50 | XR ---
Cervical spine HISTORY: Cervical fusion and discectomy, trauma and pain 5 views of the cervical spine. Patient is status post anterior cervical fusion and discectomy at 4 through C6. Intervertebral spacin g blocks are present. Anterolisthesis grade 1, C6-7. Cervical vertebral bodies show preserved height. No evident disc narrowing. No significant foraminal encroachment evident. Odontoid view is limited. IMPRESSION: Listhesis C6-7, correlate with prior exam if available. Findings may be due to facet arth ropathy. No acute fracture evident.
[2018-04-13] MEDS ORDERED: MORPHINE SULFATE 4 MG/ML SYRINGE IM STA (12:01)
== END 2018-04-13 12:19 | disposition home or self-care (01) ==
LOC: EC 10:53
DX: M54.2 Cervicalgia (principal); J44.9 Chronic obstructive pulmonary disease, unspecified; E78.5 Hyperlipidemia, unspecified; M19.90 Unspecified osteoarthritis, unspecified site; E07.9 Disorder of thyroid, unspecified; F32.9 Major depressive disorder, single episode, unspecified; F41.9 Anxiety disorder, unspecified; F90.9 Attention-deficit hyperactivity disorder, unspecified type; Z87.891 Personal history of nicotine dependence; Z79.51 Long term (current) use of inhaled steroids; Z79.899 Other long term (current) drug therapy; Z79.3 Long term (current) use of hormonal contraceptives; Z88.0 Allergy status to penicillin
CPT/HCPCS: 72050; 99283; 96372; J2270

== ENCOUNTER 2018-04-19 13:45 | Emergency (ER) | payer MEDICARE, OTHER ==
[2018-04-19 13:52] VITALS: BP 120/78; PULSE 91; RESP 18; TEMP 98.1
[2018-04-19] MEDS ORDERED: KETOROLAC 60 MG/2 ML VIAL IM STA (14:00)
--- NOTE | 2018-04-19 14:05 | ED ---
General Adult HPI - General Chief complaint: Headache Stated complaint: neck pain & headache-revisit Time Seen by Provider: 04/19/18 13:45 Source: patient, RN notes reviewed Mode of arrival: ambulatory Limitations: no limitations - History of Present Illness Initial comments: This is a 52-year-old female presents emergency Department complaining of neck pain. Patient states she had surgery on her neck recently and the other day she bumped her head against the wall when she laid down and ever since then she says the pain is worse than it has been. Patient states there is no numbness or weakness. Patient states the pain is on both sides of her spine and radiates up into the base of her skull. Patient states this is same pain she had before but worse now. Patient was given 60 Dilaudid pills on 03/19 and then 90 [place] 10 pills on April 05. Patient comes in because she is out of her [place] and she wants some relief from the pain. Patient already sees a pain clinic and she has a primary medical care doctor. - Related Data Home Medications Medication Instructions Recorded Confirmed Albuterol Inhaler [Ventolin Hfa 1 puff INHALATION RT-QID PRN 12/21/13 04/13/18 Inhaler] Loratadine 10 mg PO QAM 01/10/14 04/13/18 Ezetimibe [Zetia] 10 mg PO HS 09/05/14 04/13/18 Fluticasone Propionate 1 spray EA NOSTRIL BID 11/25/15 04/13/18 Citalopram Hydrobromide [CeleXA] 40 mg PO QAM 12/10/15 04/13/18 OXcarbazepine [Trileptal] 600 mg PO BID 12/10/15 04/13/18 Levothyroxine Sodium [Synthroid] 25 mcg PO DAILY 03/13/16 04/13/18 Atorvastatin [Lipitor] 10 mg PO HS 07/20/16 04/13/18 Simethicone [Gas-X] 125 mg PO Q8H PRN 10/19/16 04/13/18 Dicyclomine [Bentyl] 10 mg PO BID PRN 11/13/16 04/13/18 Omeprazole 40 mg PO HS 11/13/16 04/13/18 traZODone HCL 50 mg PO HS 11/13/16 04/13/18 Estradiol [Estrace] 0.5 mg PO DAILY 02/03/17 04/13/18 clonazePAM [KlonoPIN] 0.5 mg PO BID PRN 05/03/17 04/13/18 Varenicline [Chantix Continuing 1 mg PO BID 05/27/17 04/13/18 Pack] busPIRone HCL [Buspar] 30 mg PO BID 07/05/17 04/13/18 predniSONE 20 mg PO DAILY 04/13/18 04/13/18 Previous Rx's Medication Instructions Recorded Ipratropium-Albuterol Nebulize 3 ml INHALATION QID #1 neb 09/30/17 [Duoneb 0.5 mg-3 mg/3 ml Soln] Cyclobenzaprine [Flexeril] 10 mg PO BID PRN #60 tab 02/08/18 diphenhydrAMINE HCL [Benadryl] 50 mg PO Q6H PRN #30 tab 03/18/18 HYDROcodone/APAP 10-325MG [[place] 1 tab PO Q8HR PRN 30 Days #90 tab 04/05/18 10-325] Allergies Allergy/AdvReac Type Severity Reaction Status Date / Time Penicillins Allergy Rash/Hives Verified 04/19/18 13:51 Review of Systems ROS Statement: Those systems with pertinent positive or pertinent negative responses have been documented in the HPI. ROS Other: All systems not noted in ROS Statement are negative. Past Medical History Past Medical History: Asthma, COPD, GERD/Reflux, Hyperlipidemia, Musculoskeletal Disorder, Osteoarthritis (OA), Syncope, Thyroid Disorder Additional Past Medical History / Comment(s): KIDNEY STONES, hypoglycemia chronic neck and L shoulder pain- CHRONIC LOWER BACK PAIN hx L facial and L ankle fxs, sinus problems, vertigo, falls in past, low BP at times. 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 Bunionectomies , surgery L fx foot-alix placed & removed, lithotripsy and stent placed and removed, laser eye surgery bilaterally, EGD, Colonoscopy. PAIN clinic procedures. Rectocele repair. neck surgery- fusion and plate. Past Anesthesia/Blood Transfusion Reactions: Previous Problems w/ Anesthesia Additional Past Anesthesia/Blood Transfusion Reaction / Comment(s): "Takes longer to wake up from anesthesia." Past Psychological History: ADD/ADHD, Anxiety, Depression Smoking Status: Former smoker Past Alcohol Use History: None Reported Past Drug Use History: None Reported - Past Family History Mother Family Medical History: Cancer, Thyroid Disorder Additional Family Medical History / Comment(s): Mother of LUNG cancer at age 64 yrs. Father Family Medical History: Asthma, COPD, Osteoarthritis (OA) Additional Family Medical History / Comment(s): Father at age 80 yrs. General Exam - General Exam Comments Initial Comments: NGENERAL Patient is well-developed and well-nourished. Patient is in no acute distress. EYES Patient's pupils are equal and round. Extraocular motion is intact SKIN Unremarkable NEURO The patient is alert and oriented 3 PYSCH Patient has normal interpersonal interactions. MUSCULOSKELETAL Patient's neck is in a brace however she is full range of motion of the shoulders elbows and hands she has good rn infusion bilaterally and she has no particular pain with movement she has no tingling or numbness Limitations: no limitations Course Vital Signs 04/19/18 13:48 Temperature 98.1 F Pulse Rate 91 Respiratory 18 Rate Blood Pressure 120/78 O2 Sat by Pulse 98 Oximetry Medical Decision Making - Medical Decision Making Patient is abusing narcotics and is taken 90 pills in 13 days. Patient also had 60 Dilaudid at the beginning of the month and those are also gone. Patient is requesting some pain relief and I have indicated to her we are not giving her any narcotics. She needs to follow up with her primary medical care doctor. She was already seen for this pain in her neck about 6 days ago and had x-rays at that time which showed no acute abnormality and she has indicated that she has had no injury or no new symptoms since that time. Disposition Clinical Impression: Chronic neck pain, Drug-seeking behavior Disposition: HOME SELF-CARE Condition: Good Instructions: Chronic Neck Pain (DC) Is patient prescribed a controlled substance at d/c from ED?: No Referrals: Ihsan Ding DO [Primary Care Provider] - 1-2 days Time of Disposition: 14:05
== END 2018-04-19 14:23 | disposition home or self-care (01) ==
LOC: EC 13:45
DX: G89.29 Other chronic pain (principal); M54.2 Cervicalgia; Z76.5 Malingerer [conscious simulation]; R51 Headache; J44.9 Chronic obstructive pulmonary disease, unspecified; E78.5 Hyperlipidemia, unspecified; K21.9 Gastro-esophageal reflux disease without esophagitis; M19.90 Unspecified osteoarthritis, unspecified site; E07.9 Disorder of thyroid, unspecified; F32.9 Major depressive disorder, single episode, unspecified; F41.9 Anxiety disorder, unspecified; Z87.891 Personal history of nicotine dependence; Z79.51 Long term (current) use of inhaled steroids; Z79.52 Long term (current) use of systemic steroids; Z79.899 Other long term (current) drug therapy; Z88.0 Allergy status to penicillin; Z98.1 Arthrodesis status; Z82.61 Family history of arthritis
CPT/HCPCS: 99283; 96372; J1885

== ENCOUNTER → 2018-05-31 | Outpatient (CLI) | payer MEDICARE, OTHER ==
[2018-05-31 12:11] VITALS: BP 132/80; PULSE 88; RESP 18; TEMP 97
--- NOTE | 2018-06-01 08:34 | P.PAINPG ---
Subjective Progress Note Date: 05/31/18 This is follow-up visit for this patient with a history of severe and chronic neck pain , patient had recent cervical fusion surgery, and also patient had chronic low back pain , she had lumbar fusion surgery We have done an interventional pain procedure , currently she is complaining of severe low back pain with radiations ,to the right buttock area, The patient currently on [place] 10/325 every 8 hours, Flexeril 10 mg twice a day Patient denies any side effect of the medication , patient denies any excessive drowsiness or sleepiness, patient denies any suicidal ideation, Patient reported that the current medication is helping to control the pain and improve the activity of daily livings, Patient denies any motor or sensory deficit, denies any change in the bowel movement or urination, patient denies any fever or night sweats. Patient here today for follow-up visit and medication refill Objective - Vital Signs Vital signs: Vital Signs Temp 97 F L 05/31/18 12:03 Pulse 88 05/31/18 12:03 Resp 18 05/31/18 12:03 BP 132/80 05/31/18 12:03 Pulse Ox 97 05/31/18 12:03 Intake & Output 05/31/18 06/01/18 06/01/18 18:59 06:59 18:59 Weight 77.111 kg - Exam Physical Examinations : 1-Constitutiona : Cooperative , not in acute distress . 2-HEENT : nech ; supple , no Lymphadenopathy , normal thyroid size . eyes : no ptosis , no icterus, no photophobia . ENT : normal of hearing , normal oropharynx , no Thrush . 3- Respiratory : Chest clear to auscultations Bilaterally , no wheezing , no Rhonchi . 4- Cardiovascular : regular rate and rhythem , S1 , S2 , no S3 , no S4. 5- Gastrointestinal : abdomen soft no tenderness , bowel sounds , no organomegally . 6- Genitourinary : Defferred . 7- neurologic : Cranial nerve II to XII intact , no focal neurological deffecit . 8-psychatric : alert , oriented X 3 , appropriate affect , intact judgment and insight . 9-Lymphatic : no Lymphadenopathy . 10- musculoskeltal : Cervical Spine motor stregnth in the deltoid and biceps, normal right side , normal Left side motor stregnth biceps and the wrist extensors normal right side ,normal left side . motor stregnth in the triceps muscle . normal Right side , normal Left side deep tendon reflexes normal at the biceps , normal at Brachioradialis , normal at triceps. positive cervical facet loading test . Lumber spine moter stegnth lower extremities , thigh and legs 5/5 Right side , 5/5 Left side. Sever tenderness over the Sacroiliac joint on the R side Assessment and Plan Plan: Assessment and plan= chronic low back pain secondary to cervical spondylosis, status post cervical fusion surgery done in February 2018 Chronic low back pain, mostly secondary to right sacroiliitis chronic and current use of high-risk medication (opioids) Patient denies any side effects of the current pain medication and the current treatment/medication helping the patient to do activity of daily living , Diagnoses, prognosis, treatment options, including but not limited to physical therapy, medication management, interventional therapies, and surgery, were discussed with the patient All the questions answered The narcotic consent was signed and patient agreed and understood the side effects and complications of opioid treatment. Patient signed the narcotic agreement, and was orally counseled, not to overuse, not to abuse, not to Divert , not tp sell pain medication, and to take it as prescribed only, Patient was counseled not to drive or operate heavy equipment while using narcotic medication, and advised not to use alcohol or any Illicit drugs while using the narcotis. understanding that lack of compliance with any of the above instructions, will likely to cause discharge from, the pain service, not to renew his narcotic prescriptions MAPS Reviwed and it was apropriate . Medication managements= patient will be given prescription refills for [place] 10/325 every 8 hours dispense 90 with 1 refill, Flexeril 10 mg twice a day dispense 60 with 1 refill Next visit we will do a urine drug screen. Interventions= patient could benefit from a right side sacroiliac joint steroid injections under fluoroscopy guidance procedure risk and benefits discussed with the patient , Time with Patient: Less than 30 PQRS Measure Charge Sheet Measure #130: Documentation of Current Meds in Medical Chart: Patient's medications documented in chart Measure #226: Tobacco Use: Screen & Cessation Intervention: Pt not a tobacco user Measure #111: Pneumonia Vaccination: Pneumococcal vaccine administered or previously received Measure #47: Advance Care Plan: Advance care planning discussed & documented, pt chose/unable to give Measure #412: Opioid Treatment Agreement: Documented signed opioid trtmnt agreemnt min once during opioid trtmnt Measure #408: Opioid Therapy Follow-up Evaluation: Patient had f/u eval minimum every 3 months during opioid therapy Measure #317: Preventitive Care & Scrn High Bld Press & F/U: Normal blood pressure, f/u not required Measure #128: Body Mass Index (BMI) Screening & Follow-up: BMI documented ABOVE normal parameters - f/u documented Measure #131: Pain Assessment & Follow-up: Pain positive & plan documented, Follow-up scheduled Measure #431: Unhealthy Alcohol Use Preventative Care & Scrn: Patient not identified as an unhealthy alcohol user PQRS Narrative: Smoking Status Former smoker Do You Want the Pneumonia Vaccine Up to Date Vaccine AT THIS TIME? Narcotic Agreement Date Signed 08/05/16 Blood Pressure 132/80 Pain Intensity [Right Lower 8 Back] Hx Alcohol Use (MH) No Home Medications: Ambulatory Orders Albuterol Inhaler [Ventolin Hfa Inhaler] 1 puff INHALATION RT-QID PRN 12/21/13 Loratadine 10 mg PO QAM 01/10/14 Ezetimibe [Zetia] 10 mg PO HS 09/05/14 Fluticasone Propionate 1 spray EA NOSTRIL BID 11/25/15 Citalopram Hydrobromide [CeleXA] 40 mg PO QAM 12/10/15 OXcarbazepine [Trileptal] 600 mg PO BID 12/10/15 Levothyroxine Sodium [Synthroid] 25 mcg PO DAILY 03/13/16 Atorvastatin [Lipitor] 10 mg PO HS 07/20/16 Simethicone [Gas-X] 125 mg PO Q8H PRN 10/19/16 Dicyclomine [Bentyl] 10 mg PO BID PRN 11/13/16 Omeprazole 40 mg PO HS 11/13/16 traZODone HCL 50 mg PO HS 11/13/16 Estradiol [Estrace] 0.5 mg PO DAILY 02/03/17 clonazePAM [KlonoPIN] 0.5 mg PO BID PRN 05/03/17 Varenicline [Chantix Continuing Pack] 1 mg PO BID 05/27/17 busPIRone HCL [Buspar] 30 mg PO BID 07/05/17 diphenhydrAMINE HCL [Benadryl] 50 mg PO Q6H PRN #30 tab 03/18/18 Cetirizine HCl [Zyrtec] 10 mg PO DAILY 04/19/18 Cetirizine HCl/Pseudoephedrine [Zyrtec-D Tablet] 1 tab PO BID PRN 04/19/18 Cyclobenzaprine [Flexeril] 10 mg PO BID PRN #60 tab 05/31/18 HYDROcodone/APAP 10-325MG [Cecil 10-325] 1 tab PO Q8HR PRN 30 Days #90 tab 05/31 HYDROcodone/APAP 10-325MG [Cec[place] 10-325] 1 tab PO Q8HR PRN 30 Days #90 tab 05/31 Controlled Substance Measures - Controlled Substance Measures Is patient prescribed a controlled substance at discharge?: Yes When asked, does pt state using other controlled substances?: No If prescribed controlled substance>3 days was MAPS reviewed?: Yes If Rx opioid, was Start Talking consent form obtained?: Yes If opioid is for acute pain is fill amount 7 days or less?: No Was information provided regarding opioid addiction?: Yes
== END | disposition home or self-care (01) ==
LOC: PNWHC3 11:48
PROVIDERS: ATTEND Specialist
DX: G89.29 Other chronic pain (principal); M47.812 Spondylosis without myelopathy or radiculopathy, cervical region; M46.1 Sacroiliitis, not elsewhere classified; Z98.1 Arthrodesis status; Z79.891 Long term (current) use of opiate analgesic; Z87.891 Personal history of nicotine dependence; Z79.899 Other long term (current) drug therapy; Z79.3 Long term (current) use of hormonal contraceptives
CPT/HCPCS: 99211

== ENCOUNTER 2018-06-15 06:07 | Day surgery (SDC) | payer MEDICARE, OTHER ==
[2018-06-08 14:30] VITALS: BMI 31.1
[2018-06-15] MEDS ORDERED: SODIUM CHLORIDE 0.9% 500 ML 500 ML IV SCH (06:13)
[2018-06-15 06:24] VITALS: RESP 20; TEMP 97.5
[2018-06-15 07:33] VITALS: PULSE 80
[2018-06-15 07:43] VITALS: BP 129/66
--- NOTE | 2018-06-15 08:30 | FL ---
Fluoroscopy HISTORY: Pain 4 seconds fluoroscopy time supplied to the referring clinician. 1 intraoperative C-arm images docume nt the procedure. See dictated report from anesthesia.
--- NOTE | 2018-06-15 09:07 | P.PCN ---
Date of Procedure: 06/15/18 Procedure(s) Performed: Procedure= Right sacral iliac joints steroid injection under fluoroscopy guidance Preoperative diagnosis= 1- Right sacroiliitis Postoperative diagnosis=1-Right sacroiliitis Complication = none Condition= stable Anesthesia= moderate sedation with intravenous Versed mg , and fentanyl micrograms and local infiltration with lidocaine 1% 5 mL Indication for the procedure= patient complaining of low back pain , examination was positive for severe tenderness over the sacroiliac joints bilaterally and patient diagnosed with sacroiliitis, for this reason he/ she was good candidate for sacroiliac joint steroid injection. Description of the procedure= procedure risk and benefits discussed with the patient, including but not limited, risk of infection and bleeding, and ALLERGIC reaction to the medication and not complete pain relief and patient agreed with the preceding patient taken to the operating room, placed in prone position or standard monitors applied to the patient then after induction of anesthesia back prepped with chlorhexidine 3 times , Then under strict sterile technique, first I did the right sacroiliac joint the which was identified under fluoroscopy guidance been local infiltration of the skin and subcu interstitial with lidocaine 1% then 22-gauge Quincke Needle advanced slowly under fluoroscopy and placed in the right sacroiliac joint needle placement confirmed with AP and oblique and lateral view and after appropriate needle placement confirmed and after negative aspiration, or heme , then Ropivacaine 0.5% 4 mL, and 40 mg of Kenalog mixed together and injected in the right sacroiliac joint after negative aspiration patient tolerated the procedure well without any complication. And she will follow up with the pain clinic in few weeks
== END 2018-06-15 07:51 | disposition home or self-care (01) ==
LOC: ORPAIN 06:07
PROVIDERS: ATTEND Specialist
DX: M46.1 Sacroiliitis, not elsewhere classified (principal); M47.9 Spondylosis, unspecified; M96.1 Postlaminectomy syndrome, not elsewhere classified; Z88.0 Allergy status to penicillin
CPT/HCPCS: J2250; J3301; J3010; G0260; 27096

== ENCOUNTER 2018-06-30 08:16 | Day surgery (SDC) | payer MEDICARE, OTHER ==
[2018-06-29 08:27] VITALS: BMI 31.1
[~2018-06-30 08:16] MED LIST changes: -LACTATED RINGERS 1,000 ML IV SCH; +SODIUM CHLORIDE 0.9% 500 ML 500 ML IV SCH
[2018-06-30] MEDS ORDERED: IV FLUID CONTINUATION 1,000 ML IV ONE (09:48)
--- NOTE | 2018-06-30 10:04 | P.PCN ---
Date of Procedure: 06/30/18 Procedure(s) Performed: Procedure(s) Performed: Procedure= Right sacral iliac joints steroid injection under fluoroscopy guidance Preoperative diagnosis= 1- Right sacroiliitis Postoperative diagnosis=1-Right sacroiliitis Complication = none Condition= stable Anesthesia= moderate sedation with intravenous Versed 3 mg , and fentanyl 100 micrograms and local infiltration with lidocaine 1% 3 mL Indication for the procedure= patient complaining of low back pain , examination was positive for severe tenderness over the sacroiliac joints bilaterally and patient diagnosed with sacroiliitis, for this reason he/ she was good candidate for sacroiliac joint steroid injection. Description of the procedure= procedure risk and benefits discussed with the patient, including but not limited, risk of infection and bleeding, and ALLERGIC reaction to the medication and not complete pain relief and patient agreed with the preceding patient taken to the operating room, placed in prone position or standard monitors applied to the patient then after induction of anesthesia back prepped with chlorhexidine 3 times , Then under strict sterile technique, first I did the right sacroiliac joint the which was identified under fluoroscopy guidance been local infiltration of the skin and subcu interstitial with lidocaine 1% then 22-gauge Quincke Needle advanced slowly under fluoroscopy and placed in the right sacroiliac joint needle placement confirmed with AP and oblique and lateral view and after appropriate needle placement confirmed and after negative aspiration, or heme , then Ropivacaine 0.5% 4 mL, and 40 mg of Kenalog mixed together and injected in the right sacroiliac joint after negative aspiration patient tolerated the procedure well without any complication. And she will follow up with the pain clinic in few weeks
--- NOTE | 2018-06-30 10:42 | FL ---
EXAMINATION TYPE: FL guided pain mgmt statistic DATE OF EXAM: 06/30/2018 CLINICAL HISTORY: Right sacroiliac joint pain. TECHNIQUE: Fluoroscopy. COMPARISON: None. FINDINGS: Fluoroscopic guidance was provided during pain relief procedure performed by Dr. Castanon . A total of 7 seconds of fluoroscopic time was utilized during the procedure and single spot fluoro scopic image is acquired. Single image acquired shows needle localization at inferior aspect right s acroiliac joint. IMPRESSION: As Above.
[2018-06-30 10:58] VITALS: RESP 16
[2018-06-30 11:00] VITALS: BP 113/55; PULSE 77
== END 2018-06-30 11:06 | disposition home or self-care (01) ==
LOC: ORPAIN 08:16
PROVIDERS: ATTEND Specialist
DX: M46.1 Sacroiliitis, not elsewhere classified (principal); M47.816 Spondylosis without myelopathy or radiculopathy, lumbar region; J44.9 Chronic obstructive pulmonary disease, unspecified; K21.9 Gastro-esophageal reflux disease without esophagitis; Z88.0 Allergy status to penicillin; Z90.710 Acquired absence of both cervix and uterus
CPT/HCPCS: J2250; J3301; J3010; Q9966; G0260; 27096

== ENCOUNTER → 2018-07-26 | Outpatient (CLI) | payer MEDICARE, OTHER ==
[2018-07-26 12:58] VITALS: BP 115/60; PULSE 95; RESP 18
--- NOTE | 2018-07-26 13:19 | P.PN ---
Subjective Progress Note Date: 07/26/18 This is follow-up visit for this patient with a history of severe and chronic neck pain , patient had recent cervical fusion surgery, and also patient had chronic low back pain , she had lumbar fusion surgery , and right sacroiliitis we have done right-sided sacroiliac joint steroid injections 2 she reported that her pain level improved more than 70% after each injection The pain relief was only for short-term, as she reports she was able function more after the injection The patient currently on [place] 10/325 every 8 hours, Flexeril 10 mg twice a day Patient denies any side effect of the medication , patient denies any excessive drowsiness or sleepiness, patient denies any suicidal ideation, Patient reported that the current medication is helping to control the pain and improve the activity of daily livings, Patient denies any motor or sensory deficit, denies any change in the bowel movement or urination, patient denies any fever or night sweats. Patient here today for follow-up visit and medication refill Physical Examinations : 1-Constitutiona : Cooperative , not in acute distress . 2-HEENT : nech ; supple , no Lymphadenopathy , normal thyroid size . eyes : no ptosis , no icterus, no photophobia . ENT : normal of hearing , normal oropharynx , no Thrush . 3- Respiratory : Chest clear to auscultations Bilaterally , no wheezing , no Rhonchi . 4- Cardiovascular : regular rate and rhythem , S1 , S2 , no S3 , no S4. 5- Gastrointestinal : abdomen soft no tenderness , bowel sounds , no organomegally . 6- Genitourinary : Defferred . 7- neurologic : Cranial nerve II to XII intact , no focal neurological deffecit . 8-psychatric : alert , oriented X 3 , appropriate affect , intact judgment and insight . 9-Lymphatic : no Lymphadenopathy . 10- musculoskeltal : Cervical Spine motor stregnth in the deltoid and biceps, normal right side , normal Left side motor stregnth biceps and the wrist extensors normal right side ,normal left side . motor stregnth in the triceps muscle . normal Right side , normal Left side deep tendon reflexes normal at the biceps , normal at Brachioradialis , normal at triceps. positive cervical facet loading test . Lumber spine moter stegnth lower extremities , thigh and legs 5/5 Right side , 5/5 Left side. Sever tenderness over the Sacroiliac joint on the R side Assessment and plan= chronic low back pain secondary to cervical spondylosis, status post cervical fusion surgery done in February 2018 Chronic low back pain, mostly secondary to right sacroiliitis , she had more than 80% decrease in the pain level after right-sided sacroiliac joint steroid injection x2 chronic and current use of high-risk medication (opioids) Patient denies any side effects of the current pain medication and the current treatment/medication helping the patient to do activity of daily living , Diagnoses, prognosis, treatment options, including but not limited to physical therapy, medication management, interventional therapies, and surgery, were discussed with the patient All the questions answered The narcotic consent was signed and patient agreed and understood the side effects and complications of opioid treatment. Patient signed the narcotic agreement, and was orally counseled, not to overuse, not to abuse, not to Divert , not tp sell pain medication, and to take it as prescribed only, Patient was counseled not to drive or operate heavy equipment while using narcotic medication, and advised not to use alcohol or any Illicit drugs while using the narcotis. understanding that lack of compliance with any of the above instructions, will likely to cause discharge from, the pain service, not to renew his narcotic prescriptions MAPS Reviwed and it was apropriate . Medication managements= patient will be given prescription refills for [place] 10/325 every 8 hours dispense 90 with 1 refill, Flexeril 10 mg twice a day dispense 60 with 1 refill Next visit we will do a urine drug screen. Interventions= patient could benefit from a right side sacroiliac joint radiofrequency ablation (radiofrequency ablation of L5-S1 towards Ramus , and radiofrequency ablation of the lateral branches of S1 ,S2 ,and S3 , Time with Patient: Less than 30 PQRS Measure Charge Sheet Measure #130: Documentation of Current Meds in Medical Chart: Patient's medications documented in chart Measure #226: Tobacco Use: Screen & Cessation Intervention: Pt not a tobacco user Measure #111: Pneumonia Vaccination: Pneumococcal vaccine administered or previously received Measure #47: Advance Care Plan: Advance care planning discussed & documented, pt chose/unable to give Measure #412: Opioid Treatment Agreement: Documented signed opioid trtmnt agreemnt min once during opioid trtmnt Measure #408: Opioid Therapy Follow-up Evaluation: Patient had f/u eval minimum every 3 months during opioid therapy Measure #317: Preventitive Care & Scrn High Bld Press & F/U: Normal blood pressure, f/u not required Measure #128: Body Mass Index (BMI) Screening & Follow-up: BMI documented ABOVE normal parameters - f/u documented Measure #131: Pain Assessment & Follow-up: Pain positive & plan documented, Follow-up scheduled Measure #431: Unhealthy Alcohol Use Preventative Care & Scrn: Patient not identified as an unhealthy alcohol user PQRS Narrative: - Controlled Substance Measures Is patient prescribed a controlled substance at discharge?: Yes When asked, does pt state using other controlled substances?: No If prescribed controlled substance>3 days was MAPS reviewed?: Yes If Rx opioid, was Start Talking consent form obtained?: Yes If opioid is for acute pain is fill amount 7 days or less?: No Was information provided regarding opioid addiction?: Yes Objective - Vital Signs Vital signs: Vital Signs Temp Pulse 95 07/26/18 12:49 Resp 18 07/26/18 12:49 BP 115/60 07/26/18 12:49 Pulse Ox 96 07/26/18 12:49 Intake & Output 07/25/18 07/26/18 07/26/18 18:59 06:59 18:59 Weight 79.379 kg
== END | disposition home or self-care (01) ==
LOC: PNWHC3 12:14
PROVIDERS: ATTEND Specialist
DX: G89.29 Other chronic pain (principal); M54.2 Cervicalgia; M54.5 Low back pain; M47.812 Spondylosis without myelopathy or radiculopathy, cervical region; M46.1 Sacroiliitis, not elsewhere classified; F11.90 Opioid use, unspecified, uncomplicated; Z98.1 Arthrodesis status; Z98.890 Other specified postprocedural states
CPT/HCPCS: 99211

== ENCOUNTER → 2018-09-20 | Outpatient (CLI) | payer MEDICARE, OTHER ==
[2018-09-20 12:37] VITALS: BP 128/79; PULSE 97; RESP 18
--- NOTE | 2018-09-20 12:53 | P.PN ---
Subjective Progress Note Date: 09/20/18 Principal diagnosis: Cervical and lumbar postlaminectomy pain syndrome This is a 53-year-old lady with history of chronic neck and lower back pain status post cervical and lumbar fusions. The patient had right sacroiliac joint steroid injection which didn't help her pain previously however which did not do RFA pending her visit to a neurosurgeon which she has not done yet. The patient still uses Royal 10 mg 3 times a day with no side effects except for constipation. Today, pt denies new-onset weakness, bowel/bladder incontinence, or any other signs or symptoms of cauda equina syndrome. There are no signs of acute intoxication, and no indications of medication diversion or overuse. In addition to above, 13-point review of systems is also negative for chest pain , shortness of breath, changes in vision, changes in hearing, new onset weakness , abdominal pain, diarrhea, extreme fatigue, malaise, fever, skin changes, homicidal or suicidal ideation, or bowel or bladder incontinence. Vital Signs: Reviewed in EMR Gen: AAOx3, NAD HEENT: PERRLA,hearing grossly normal Pulm: resp unlabored,CTA Heart:S1,S2, No Mur Neck: supple, trachea midline Neuro exam of the lower extremities: Within normal limits for muscle strength and deep tendon reflexes Neuro exam of the upper extremities: Within normal limits for muscle strength and deep tendon reflexes except for absent triceps reflex bilaterally Straight leg raising test: Negative bilaterally Tenderness in the paravertebral musculature: Positive on the lumbar and cervical paravertebral musculature Neuro: CN II-XII grossly intact, Imaging: Reviewed in EMR/chart Assessment: Lumbar post of the pain syndrome Cervical post fusion pain syndrome Morbid obesity Plan: 1. Explanation: Opioid and psychological risk scores were reviewed. Diagnoses , prognoses, and multiple treatment options including but not limited to physical therapy, interventional therapies, adjuvant medical therapies, narcotic medication therapies, and surgery were discussed with the patient and all questions were answered to the patient's satisfaction. 2. Opioid agreement: Signed with the patient and the patient is warned not to use opioids while driving or before driving and not to combine opioids with benzodiazepines or alcohol. 3. Counseling: The patient was counseled extensively on SMOKING CESSATION, BODY MASS INDEX, EXERCISE. Specifically, the patient was instructed regarding the importance of smoking cessation, obesity, and exercise in the context of both chronic pain and overall health. 4. Procedures: May benefit from getting RFA on the right sacroiliac joint 5. Consultations: The patient is going to see a neurosurgeon 6. Investigations: We will order urine drug screen today 7. Medications: Continue Royal 10 mg 3 times a day and Flexeril 10 mg twice a day with one refill 8. Disposition: Return to clinic in 8 weeks 9. Maps were reviewed and were appropriate. PQRS measures: 1-Patient's medications are documented in the chart. 2-Tobacco use is negative, counseling given 3-Patient has had a pneumococcal vaccine. 4-Advanced care planning discussed, patient unable to give 5-Opioid contract signed with the patient. 6-Pain positive, follow-up visit or procedure scheduled 7-Patient's blood pressure measured and documented within normal limits. 8-Patient's weight was measured, and body mass index ABOVE the normal limits, and counseling was done. Patient instructed to follow up with PCP. 9-Patient WAS NOT identified as an unhealthy alcohol user. Objective - Vital Signs Vital signs: Vital Signs Temp Pulse 97 09/20/18 12:21 Resp 18 09/20/18 12:21 BP 128/79 09/20/18 12:21 Pulse Ox 97 09/20/18 12:21 Intake & Output 09/19/18 09/20/18 09/20/18 18:59 06:59 18:59 Weight 86.183 kg
== END | disposition home or self-care (01) ==
LOC: PNWHC3 11:53
PROVIDERS: ATTEND Anesthesiology
DX: G89.29 Other chronic pain (principal); M54.2 Cervicalgia; M54.5 Low back pain; M96.1 Postlaminectomy syndrome, not elsewhere classified; E66.01 Morbid (severe) obesity due to excess calories; K59.00 Constipation, unspecified; Z98.1 Arthrodesis status; Z79.891 Long term (current) use of opiate analgesic; Z68.34 Body mass index [BMI] 34.0-34.9, adult
CPT/HCPCS: 80307; G0482; G0463; 99211

== ENCOUNTER → 2018-11-16 | Outpatient (CLI) | payer MEDICARE, OTHER ==
[2018-11-16 14:00] VITALS: BP 121/63; PULSE 115; RESP 16
--- NOTE | 2018-11-16 14:24 | P.PN ---
Subjective Progress Note Date: 11/16/18 This is a 53-year-old lady with history of neck and lower back pain due to history of cervical and lumbar postlaminectomy pain syndrome. The patient's pain has been managed with a combination of interventional pain procedures and oral opioids. The patient is going to have another lumbar spine surgery next month in [facility]. Today, pt denies new-onset weakness, bowel/bladder incontinence, or any other signs or symptoms of cauda equina syndrome. There are no signs of acute intoxication, and no indications of medication diversion or overuse. In addition to above, 13-point review of systems is also negative for chest pain, shortness of breath, changes in vision, changes in hearing, new onset weakness, abdominal pain, diarrhea, extreme fatigue, malaise, fever, skin changes, homicidal or suicidal ideation, or bowel or bladder incontinence. Vital Signs: Reviewed in EMR Gen: AAOx3, NAD HEENT: PERRLA,hearing grossly normal Pulm: resp unlabored Neck: supple, trachea midline Neuro exam of the lower extremities: Decreased knee flexion and extension to 4 out of 5 bilaterally, absent ankle reflex on the left side and normal on the right side. Normal knee reflexes bilaterally. Straight leg raising test: Raulito's test: Range of motion of the lumbar spine: Facet loading test: Tenderness in the paravertebral musculature: In the lumbar and cervical areas Neuro: CN II-XII grossly intact, Imaging: Reviewed in EMR/chart Assessment: Failed cervical and lumbar surgery syndrome Chronic pain syndrome Opioid dependence Plan: 1. Explanation: Opioid and psychological risk scores were reviewed. Diagnoses, prognoses, and multiple treatment options including but not limited to physical therapy, interventional therapies, adjuvant medical therapies, narcotic medication therapies, and surgery were discussed with the patient and all quest ions were answered to the patient's satisfaction. 2. Opioid agreement: Signed with the patient and the patient is warned not to use opioids while driving or before driving and not to combine opioids with benzodiazepines or alcohol. 3. Counseling: The patient was counseled extensively on SMOKING CESSATION, BODY MASS INDEX, EXERCISE. Specifically, the patient was instructed regarding the importance of smoking cessation, obesity, and exercise in the context of both chronic pain and overall health. 4. Procedures: None at this point she is going to have surgery on the lumbar spine next month 5. Consultations: None 6. Investigations: None 7. Medications: Continue [place] 10 mg 3 times a day however weight we will plan on reducing the dose as soon as she recovers from her back surgery 8. Disposition: Return to clinic in 2 weeks from now 9. Maps were reviewed and were appropriate. PQRS measures: 1-Patient's medications are documented in the chart. 2-Tobacco use is positive, counseling given 3-Patient has had a pneumococcal vaccine. 4-Advanced care planning discussed, patient unable to give 5-Opioid contract signed with the patient. 6-Pain positive, follow-up visit or procedure scheduled 7-Patient's blood pressure measured and documented above/ normal limits. The patient will follow up with his primary care physician. 8-Patient's weight was measured, and body mass index ABOVE the normal limits, and counseling was done. Patient instructed to follow up with PCP. 9-Patient WAS NOT identified as an unhealthy alcohol user. Controlled Substance Measures Is patient prescribed a controlled substance at discharge?: Yes When asked, does pt state using other controlled substances?: No If prescribed controlled substance>3 days was MAPS reviewed?: Yes If Rx opioid, was Start Talking consent form obtained?: Yes If opioid is for acute pain is fill amount 7 days or less?: No Was information provided regarding opioid addiction?: Yes Objective - Vital Signs Vital signs: Vital Signs Temp Pulse 115 H 11/16/18 13:51 Resp 16 11/16/18 13:51 BP 121/63 11/16/18 13:51 Pulse Ox 96 11/16/18 13:51 Intake & Output 11/15/18 11/16/18 11/16/18 18:59 06:59 18:59 Weight 86.183 kg
== END ==
LOC: PNWHC3 13:14
PROVIDERS: ATTEND Anesthesiology
DX: G89.4 Chronic pain syndrome (principal); M96.1 Postlaminectomy syndrome, not elsewhere classified; F11.20 Opioid dependence, uncomplicated; Z79.891 Long term (current) use of opiate analgesic; Z72.0 Tobacco use
CPT/HCPCS: 99211

== ENCOUNTER → 2018-11-24 | Outpatient (CLI) | payer MEDICARE, OTHER ==
--- NOTE | 2018-11-24 16:56 | XR ---
EXAMINATION TYPE: XR chest 2V DATE OF EXAM: 11/24/2018 COMPARISON: Prior chest x-ray 09/09/2018 HISTORY: COPD TECHNIQUE: Frontal and lateral views of the chest are obtained. FINDINGS: There is no focal air space opacity, pleural effusion, or pneumothorax seen. The cardiac silhouette size is within normal limits. Postop changes are again noted to the cervical spine. The osseous structures are intact. IMPRESSION: No acute cardiopulmonary process.
== END | disposition home or self-care (01) ==
LOC: RADXRMAIN 16:08
PROVIDERS: ATTEND Internal Medicine Sleep Medicine
DX: J44.9 Chronic obstructive pulmonary disease, unspecified (principal)
CPT/HCPCS: 71046

== ENCOUNTER → 2019-01-12 | Outpatient (CLI) | payer MEDICARE, OTHER ==
[2019-01-12 12:46] VITALS: BP 135/76; PULSE 91; RESP 16
--- NOTE | 2019-01-12 13:24 | P.PAINPG ---
Subjective Progress Note Date: 01/12/19 This is a follow-up visit for this 53 years old female with a chronic history of severe neck pain and low back pain, she is diagnosed with cervical spondylosis and occipital neuralgia, and she had severe low back pain she is diagnosed with postlaminectomy pain syndrome , and right sacroiliitis , recently she had right sacroiliac joint fusion done at [facility], and she is currently having infection at the surgical site and she was placed on antibiotic, she continued to have severe low back pain and severe neck pain and headache, she is currently on [place] 10/325 every 8 hours and flexibility milligrams twice a day, she is able to ambulate, she had no motor or sensory deficit, but the intensity of the pain interfering with her quality of life. Objective - Vital Signs Vital signs: Vital Signs Temp Pulse 91 01/12/19 12:38 Resp 16 01/12/19 12:38 BP 135/76 01/12/19 12:38 Pulse Ox 97 01/12/19 12:38 Intake & Output 01/11/19 01/12/19 01/12/19 18:59 06:59 18:59 Weight 81.647 kg - Exam Physical Examinations : -Constitutiona : Cooperative , not in acute distress . -HEENT : nech ; supple , no Lymphadenopathy , normal thyroid size . eyes : no ptosis , no icterus, no photophobia . ENT : normal of hearing , normal oropharynx , no Thrush . - Respiratory : Chest clear to auscultations Bilaterally , no wheezing , no Rhonchi . - Cardiovascula : regular rate and rhythem , S1 , S2 , no S3 , no S4. - Gastrointestina : abdomen soft no tenderness , bowel sounds , no organomegally . - Genitourinary : Defferred . - neurologic : Cranial nerve II to XII intact , no focal neurological deffecit . -psychatric : alert , oriented X 3 , appropriate affect , intact judgment and insight . -Lymphatic : no Lymphadenopathy . - musculoskeltal : Cervical Spine motor stregnth in the deltoid and biceps, normal right side , normal Left side motor stregnth biceps and the wrist extensors normal right side ,normal left side . motor stregnth in the triceps muscle . normal Right side , normal Left side deep tendon reflexes normal at the biceps , normal at Brachioradialis , normal at triceps. positive cervical facet loading test . Spurling test positive bilaterally. Neck distraction test positive bilaterally. Les sign positive bilaterally. Lumber spine moter stegnth lower extremities ,thigh and legs 5/5 Right side , 5/5 Left side deep tendon reflexes : normal Knee Jerk , normal ankle Jerk positive lumber facet Loading Test Range of motion of the lumbar spine Flexion 30 degrees, extension 10 degrees strait leg raising test , positive at degree Fabere test positive RT and positive LT . Sever tenderness over the Sacroiliac joint on the Right side . Assessment and Plan Plan: Assessment and plan= chronic low back pain secondary to lumbar postlaminectomy pain syndrome, right sacroiliitis status post right sacroiliac joint fusion Chronic severe neck pain secondary to cervical spondylosis, and occipital neuralgia , failed back surgery syndrome and cervical area Patient had a good result after the radiofrequency ablation of the medial branch cervical area done in October 2017 . chronic and current use of high-risk medication (opioids) Patient denies any side effects of the current pain medication and the current treatment/medication helping the patient to do activity of daily living , Diagnoses, prognosis, treatment options, including but not limited to physical therapy, medication management, interventional therapies, and surgery, were discussed with the patient All the questions answered The narcotic consent was signed and patient agreed and understood the side effects and complications of opioid treatment. Patient signed the narcotic agreement, and was orally counseled, not to overuse, not to abuse, not to Divert , not tp sell pain medication, and to take it as prescribed only, Patient was counseled not to drive or operate heavy equipment while using narcotic medication, and advised not to use alcohol or any Illicit drugs while using the narcotis. understanding that lack of compliance with any of the above instructions, will likely to cause discharge from, the pain service, not to renew his narcotic prescriptions MAPS Reviwed and it was apropriate . Medication managements= patient will be given prescription refills for [place] 10/325 every 8 hours dispense 90 with 1 refill, Flexeril 10 mg 3 times a day dispensed 90 with 1 refile Interventions= she will be good candidate to have radiofrequency ablation of the medial branch cervical area C2 3, C3 4 and third occipital nerve , right side towards the left later , Time with Patient: Less than 30 PQRS Measure Charge Sheet Measure #130: Documentation of Current Meds in Medical Chart: Patient's medications documented in chart Measure #226: Tobacco Use: Screen & Cessation Intervention: Pt not a tobacco user Measure #111: Pneumonia Vaccination: Pneumococcal vaccine administered or previously received Measure #47: Advance Care Plan: Advance care planning discussed & documented, pt chose/unable to give Measure #412: Opioid Treatment Agreement: Documented signed opioid trtmnt agreemnt min once during opioid trtmnt Measure #408: Opioid Therapy Follow-up Evaluation: Patient had f/u eval minimum every 3 months during opioid therapy Measure #317: Preventitive Care & Scrn High Bld Press & F/U: Normal blood pressure, f/u not required Measure #128: Body Mass Index (BMI) Screening & Follow-up: BMI documented ABOVE normal parameters - f/u documented Measure #131: Pain Assessment & Follow-up: Pain positive & plan documented, Follow-up scheduled Measure #431: Unhealthy Alcohol Use Preventative Care & Scrn: Patient not identified as an unhealthy alcohol user PQRS Narrative: Smoking Status Former smoker Do You Want the Pneumonia Vaccine Up to Date Vaccine AT THIS TIME? Narcotic Agreement Date Signed 09/20/18 Blood Pressure 135/76 Pain Intensity [Bilateral 8 Posterior Neck] Scale Used Numeric (1 - 10) Hx Alcohol Use (MH) No Home Medications: Ambulatory Orders Albuterol Inhaler [Ventolin Hfa Inhaler] 1 puff INHALATION RT-QID PRN 12/21/13 Ezetimibe [Zetia] 10 mg PO HS 09/05/14 Fluticasone Propionate 1 spray EA NOSTRIL BID 11/25/15 Citalopram Hydrobromide [CeleXA] 40 mg PO QAM 12/10/15 OXcarbazepine [Trileptal] 600 mg PO BID 12/10/15 Levothyroxine Sodium [Synthroid] 25 mcg PO DAILY 03/13/16 Atorvastatin [Lipitor] 10 mg PO HS 07/20/16 Simethicone [Gas-X] 125 mg PO Q8H PRN 10/19/16 Omeprazole 40 mg PO HS 11/13/16 Estradiol [Estrace] 0.5 mg PO DAILY 02/03/17 clonazePAM [KlonoPIN] 0.5 mg PO BID PRN 05/03/17 busPIRone HCL [Buspar] 30 mg PO BID 07/05/17 Cetirizine HCl [Zyrtec] 10 mg PO DAILY 04/19/18 Cyclobenzaprine [Flexeril] 10 mg PO BID PRN #60 tab 07/26/18 HYDROcodone/APAP 10-325MG [[place] 10-325] 1 tab PO Q8HR PRN 30 Days #90 tab 07/26/18 Acetaminophen Tab [Tylenol] 325 mg PO DIRECTED PRN 09/09/18 Methylphenidate HCl 20 mg PO TID 09/09/18 Ibuprofen 800 mg PO BID 01/12/19 Controlled Substance Measures - Controlled Substance Measures Is patient prescribed a controlled substance at discharge?: Yes When asked, does pt state using other controlled substances?: No If prescribed controlled substance>3 days was MAPS reviewed?: Yes If Rx opioid, was Start Talking consent form obtained?: Yes If opioid is for acute pain is fill amount 7 days or less?: No Was information provided regarding opioid addiction?: Yes
== END ==
LOC: PNWHC3 12:17
PROVIDERS: ATTEND Specialist
DX: G89.29 Other chronic pain (principal); M47.812 Spondylosis without myelopathy or radiculopathy, cervical region; M96.1 Postlaminectomy syndrome, not elsewhere classified; M46.1 Sacroiliitis, not elsewhere classified; M54.81 Occipital neuralgia; Z79.891 Long term (current) use of opiate analgesic; Z98.1 Arthrodesis status; Z87.891 Personal history of nicotine dependence; Z79.1 Long term (current) use of non-steroidal anti-inflammatories (NSAID)
CPT/HCPCS: 99211

== ENCOUNTER 2019-01-26 06:47 | Day surgery (SDC) | payer MEDICARE, OTHER ==
[2019-01-24 10:05] VITALS: BMI 32.9
[2019-01-26 07:10] VITALS: RESP 16
[2019-01-26] MEDS ORDERED: LACTATED RINGERS 1,000 ML IV ONE (07:27)
[2019-01-26] MEDS ORDERED: LIDOCAINE 1% 20 ML VIAL (10MG/ML) FOR IV START INTRADERMA ONE (07:27)
--- NOTE | 2019-01-26 07:59 | P.PCN ---
Date of Procedure: 01/26/19 Description of Procedure: PREOPERATIVE DIAGNOSIS: Cervical spondylosis without myelopathy POSTOPERATIVE DIAGNOSIS: Cervical spondylosis without myelopathy PROCEDURES: Radiofrequency thermocoagulation of C2, C3 and third occipital nerve ANESTHESIA: Local with 1% lidocaine; IV sedation with fentanyl and Versed. EBL: Minimal PROCEDURE INDICATION: The patient with neck pain secondary to cervical arthropathy who had more than 50% relief of her pain with previous diagnostic cervical medial branch block. PROCEDURE DESCRIPTION / TECHNIQUE: The patient was seen and identified in the preoperative area. Risks, benefits, complications, and alternatives were discussed with the patient, the patient agreed to proceed with the procedure and signed the consent. IV was started. Vital signs remained stable throughout the procedure. Patient was taken to the OR and time out was completed. The patient was placed in the prone position on the procedure table. A pillow was placed under the patient's chest to increase the cervical interlaminar space. The cervical area was prepped and draped in the usual sterile fashion. Critical pause was taken. Vital signs were closely monitored during the procedure. Conscious sedation was used during the procedure to decrease patient's anxiety. Using cross-table lateral fluoroscopy, the centroid of the trapezoid of the above referenced levels were identified, marked, and localized with 1% lidocaine. Subsequently, a 20 [id number] radiofrequency cannula with a 10-mm active tip was advanced guided by fluoroscopy to the centroid of the trapezoid of the above referenced levels. Needle tip position was confirmed at the centroid of the trapezoids of the above referenced levels with anteroposterior fluoroscopy. Each site then underwent sensory testing at 50 Hz and 0 to 1 volt and motor testing at 2 Hz and 0 to 3 volt with local stimulation, but no radicular symptoms down the arm. Thereafter the targeted sites underwent radiofrequency thermocoagulation at 80 degrees celsius for 90 seconds after injecting 0.5 ml of PF lidocaine 1%. After thermocoagulation of the targeted sites, 1 ml of 1% lidocaine was then injected after negative aspiration of CSF and blood and with no paresthesias. Cannulas were retracted while injecting lidocaine 1% until the needle is out. Skin was cleansed and bandages were applied. COMPLICATIONS: No acute complications. DISPOSITION / PLANS: The patient was placed in a supine position and transferred to the recovery area in a stable condition for observation and was discharged from the recovery room after meeting discharge criteria. Home discharge instructions given to the patient by the staff. The patient was reexamined prior to discharge. The patient will schedule a follow up as directed.
[2019-01-26] MEDS ORDERED: LACTATED RINGERS 600 ML IV ONE (08:26)
[2019-01-26 08:44] VITALS: BP 112/74; PULSE 74
--- NOTE | 2019-01-26 09:27 | FL ---
EXAMINATION TYPE: FL guided pain mgmt statistic DATE OF EXAM: 01/26/2019 CLINICAL HISTORY: Neck pain. TECHNIQUE: Fluoroscopy. COMPARISON: None. FINDINGS: Fluoroscopic guidance was provided during pain relief procedure performed by Dr. Yousif. A total of 10 seconds of fluoroscopic time was utilized during the procedure and 3 spot images are a cquired. Images acquired shows needle localization of the cervical spine. IMPRESSION: As Above.
== END 2019-01-26 09:09 | disposition home or self-care (01) ==
LOC: ORPAIN 06:47
PROVIDERS: ATTEND Hospitalist
DX: G89.29 Other chronic pain (principal); M47.812 Spondylosis without myelopathy or radiculopathy, cervical region; M54.81 Occipital neuralgia; M96.1 Postlaminectomy syndrome, not elsewhere classified; M46.1 Sacroiliitis, not elsewhere classified; Z90.710 Acquired absence of both cervix and uterus; Z87.891 Personal history of nicotine dependence; Z79.1 Long term (current) use of non-steroidal anti-inflammatories (NSAID); Z79.890 Hormone replacement therapy; Z79.891 Long term (current) use of opiate analgesic; Z79.899 Other long term (current) drug therapy
CPT/HCPCS: 64640; 64633; 64634; J2250; J2001; J3010; 99152

== ENCOUNTER → 2019-01-30 | Outpatient (CLI) | payer MEDICARE, OTHER ==
--- NOTE | 2019-01-31 08:29 | XR ---
EXAMINATION TYPE: XR lumbar spine with bend/flex DATE OF EXAM: 01/30/2019 CLINICAL HISTORY: Postsurgical follow-up exam. TECHNIQUE: Frontal, lateral, and oblique images of the lumbar spine are obtained. COMPARISON: 11/13/2016 FINDINGS: There are 5 lumbar type vertebral bodies identified. Pedicular screws and fixation rods t raverse the L5 and S1 vertebral levels and appear intact. New fixation of the right sacroiliac joint is present. Posterior elements are absent of L1. The lumbar spine shows satisfactory alignment withou t evidence of acute fracture or dislocation. Vertebral body heights are maintained however multilevel small anterior osteophytes and facet arthropathy are seen. The oblique images appear within normal limits. The overlying soft tissue appears unremarkable. IMPRESSION: 1. Stable postsurgical changes of L5-S1 and new surgical fixation of the right sacroiliac joint. 2. Mild multilevel degenerative disc disease on the lumbar spine. 3. No new vertebral body height loss or malalignment.
== END | disposition home or self-care (01) ==
LOC: RADXRMAIN 16:49
PROVIDERS: ATTEND Neurological Surgery
DX: M51.36 Other intervertebral disc degeneration, lumbar region (principal); Z98.890 Other specified postprocedural states
CPT/HCPCS: 72114

== ENCOUNTER 2019-02-05 11:03 | Observation (INO) | payer MEDICARE, OTHER ==
[2019-02-05] MEDS ORDERED: IPRATROPIUM-ALBUTEROL 3 ML NEB INHALATION STA (11:27)
--- NOTE | 2019-02-05 11:31 | ED ---
URI HPI - General Source: patient, RN notes reviewed Mode of arrival: ambulatory Limitations: no limitations <Faustino Bertrand - Last Filed: 02/05/19 12:36> <Stefan Rebollar - Last Filed: 02/05/19 12:56> - General Chief Complaint: Upper Respiratory Infection Stated Complaint: COUGH Time Seen by Provider: 02/05/19 11:11 - History of Present Illness Initial Comments: 53-year-old female presents emergency Department chief complaint cough congestion 5 days. Patient states that she has a nonproductive cough. Patient has underlying COPD and asthma was a former smoker. Patient states that she has hospitalized in year for COPD exacerbation. She has been placed on Levaquin 250 mg for last few days and she has been doing treatments at home which gives her relief. Denies any seen sinus congestion, sore throat, headache, dizziness, chest pain. (Faustino Bertrand) - Related Data Home Medications Medication Instructions Recorded Confirmed Albuterol Inhaler [Ventolin Hfa 1 puff INHALATION RT-QID PRN 12/21/13 01/26/19 Inhaler] Ezetimibe [Zetia] 10 mg PO HS 09/05/14 01/26/19 Fluticasone Propionate 1 spray EA NOSTRIL BID 11/25/15 01/26/19 Citalopram Hydrobromide [CeleXA] 40 mg PO QAM 12/10/15 01/26/19 OXcarbazepine [Trileptal] 600 mg PO BID 12/10/15 01/26/19 Levothyroxine Sodium [Synthroid] 25 mcg PO DAILY 03/13/16 01/26/19 Atorvastatin [Lipitor] 10 mg PO HS 07/20/16 01/26/19 Simethicone [Gas-X] 125 mg PO Q8H PRN 10/19/16 01/26/19 Omeprazole 40 mg PO HS 11/13/16 01/26/19 Estradiol [Estrace] 0.5 mg PO DAILY 02/03/17 01/26/19 clonazePAM [KlonoPIN] 0.5 mg PO BID PRN 05/03/17 01/26/19 busPIRone HCL [Buspar] 30 mg PO BID 07/05/17 01/26/19 Cetirizine HCl [Zyrtec] 10 mg PO DAILY 04/19/18 01/26/19 Acetaminophen Tab [Tylenol] 325 mg PO DIRECTED PRN 09/09/18 01/26/19 Methylphenidate HCl 20 mg PO TID 09/09/18 01/26/19 Cyclobenzaprine [Flexeril] 10 mg PO TID 01/12/19 01/26/19 Ibuprofen 800 mg PO BID 01/12/19 01/26/19 Previous Rx's Medication Instructions Recorded HYDROcodone/APAP 10-325MG [[place] 1 tab PO Q8HR PRN 30 Days #90 tab 07/26/18 10-325] Allergies Allergy/AdvReac Type Severity Reaction Status Date / Time Penicillins Allergy Rash/Hives Verified 02/05/19 11:09 Review of Systems ROS Other: All systems not noted in ROS Statement are negative. <Faustino Bertrand - Last Filed: 02/05/19 12:36> ROS Other: All systems not noted in ROS Statement are negative. <Stefan Rebollar - Last Filed: 02/05/19 12:56> ROS Statement: Those systems with pertinent positive or pertinent negative responses have been documented in the HPI. Past Medical History Past Medical History: Asthma, COPD, GERD/Reflux, Hyperlipidemia, Musculoskeletal Disorder, Osteoarthritis (OA), Syncope, Thyroid Disorder Additional Past Medical History / Comment(s): kidney stones, hypoglycemia, chronic neck and L shoulder, lower back pain. Hx L facial and L ankle fxs, sinus problems, vertigo, falls in past due to syncope, low BP at times. Fusion of sacrum and iliac creast-per dr. Luke with postop infection. 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 Rectocele repair. Past Anesthesia/Blood Transfusion Reactions: Previous Problems w/ Anesthesia Additional Past Anesthesia/Blood Transfusion Reaction / Comment(s): "Takes longer to wake up from anesthesia." Past Psychological History: ADD/ADHD, Anxiety, Depression Smoking Status: Former smoker Past Alcohol Use History: None Reported Past Drug Use History: None Reported - Past Family History Mother Family Medical History: Cancer, Thyroid Disorder Additional Family Medical History / Comment(s): Mother of LUNG cancer at age 64 yrs. Father Family Medical History: Asthma, COPD, Osteoarthritis (OA) Additional Family Medical History / Comment(s): Father at age 80 yrs. <Faustino Bertrand - Last Filed: 02/05/19 12:36> General Exam Limitations: no limitations General appearance: alert, in no apparent distress Head exam: Present: atraumatic, normocephalic, normal inspection Eye exam: Present: normal appearance, PERRL, EOMI. Absent: scleral icterus, conjunctival injection, periorbital swelling ENT exam: Present: normal exam, normal oropharynx, mucous membranes moist, TM's normal bilaterally Neck exam: Present: normal inspection, full ROM. Absent: tenderness, meningismus, lymphadenopathy Respiratory exam: Present: wheezes, rhonchi. Absent: normal lung sounds bilaterally, respiratory distress, rales, stridor Cardiovascular Exam: Present: regular rate, normal rhythm, normal heart sounds. Absent: systolic murmur, diastolic murmur, rubs, gallop, clicks <Faustino Bertrand - Last Filed: 02/05/19 12:36> Course <Faustino Bertrand - Last Filed: 02/05/19 12:36> <Stefan Rebollar - Last Filed: 02/05/19 12:56> Vital Signs 02/05/19 02/05/19 02/05/19 11:05 12:00 12:15 Temperature 98.6 F Pulse Rate 93 100 92 Respiratory 18 Rate Blood Pressure 132/71 O2 Sat by Pulse 98 Oximetry - Reevaluation(s) Reevaluation #1: 02/05/19 12:36 Patient limited improvement after treatment. (Faustino Bertrand) Reevaluation #2: 02/05/19 12:55 PA supervision: I proceeded [id number] evaluation the patient she presents with complaints of shortness of breath and cough that is resistant to home medications and care she does demonstrate evidence of COPD with exacerbation minimal improvement in the emergency department she will be admitted the case is discussed with Dr. Veges[place]. He did come to see the patient emergency department. (Stefan Rebollar) Medical Decision Making <Faustino Bertrand - Last Filed: 02/05/19 12:36> - Medical Decision Making 53-year-old female presented for shortness breath, COPD, cough congestion. Chest x-ray shows no evidence of pneumonia. Patient has little response with treatment and was admitted for COPD exacerbation. (Faustino Bertrand) Disposition <Faustino Bertrand - Last Filed: 02/05/19 12:36> <Stefan Rebollar - Last Filed: 02/05/19 12:56> Clinical Impression: COPD exacerbation Disposition: ADMITTED IP TO THIS HOSP Condition: Fair Referrals: Ihsan Ding DO [Primary Care Provider] - 1-2 days
--- NOTE | 2019-02-05 11:53 | XR ---
EXAMINATION TYPE: XR chest 2V DATE OF EXAM: 02/05/2019 HISTORY: Cough/pain. REFERENCE: Previous study dated 11/24/2018. FINDINGS: There is been an ACDF in the lower cervical spine. The lungs are clear. Pleural space are clear. The heart is not enlarged. IMPRESSION: NO ACTIVE INTRATHORACIC DISEASE.
[2019-02-05] MEDS ORDERED: methylPREDNISolone SOD SUCCI 125 MG/2 ML VIAL IV STA (12:36)
[2019-02-05] MEDS ORDERED: AZITHROMYCIN 500 MG in SODIUM CHLORIDE 0.9% 250 ML IVPB STA (12:38)
[2019-02-05] MEDS ORDERED: ALBUTEROL NEBULIZED 2.5 MG/3 ML INHALATION PRN (12:38)
[2019-02-05] MEDS ORDERED: cefTRIAXone IN SWFI 1,000 MG/10 ML SYRINGE IVP STA (12:39)
[2019-02-05 13:13] LABS: Basophils % (A) 0 %; Eosinophils # (A) 0.1 k/uL (0-0.7); Eosinophils % (A) 1 %; HCT 32.5 % (34.0-46.0); HGB 10.7 gm/dL (11.4-16.0); Lymphocytes # (A) 2.3 k/uL (1.0-4.8); Lymphocytes % (A) 31 %; MCH 26.4 pg (25.0-35.0); MCHC 32.8 g/dL (31.0-37.0); MCV 80.3 fL (80.0-100.0); Mean Platelet Volume 6.8; Monocytes # (A) 0.4 k/uL (0-1.0); Monocytes % (A) 5 %; Neutrophils # (A) 4.6 k/uL (1.3-7.7); Neutrophils % (A) 60 %; Platelet Count 286 k/uL (150-450); RBC 4.04 m/uL (3.80-5.40); RDW 14.4 % (11.5-15.5); WBC 7.7 k/uL (3.8-10.6)
[2019-02-05 13:21] LABS: ALT 18 U/L (9-52); AST 21 U/L (14-36); African American GFR (CKD) >90 (>60 ml/min/1.73 sqM); Albumin 4.2 g/dL (3.5-5.0); Alkaline Phosphatase 114 U/L (38-126); Anion Gap 13 mmol/L; Blood Urea Nitrogen 7 mg/dL (7-17); Calcium 8.4 mg/dL (8.4-10.2); Carbon Dioxide 20 mmol/L (22-30); Chloride 101 mmol/L (98-107); Glucose 115 mg/dL (74-99); Sodium 134 mmol/L (137-145); Total Bilirubin 0.2 mg/dL (0.2-1.3); Total Protein 6.9 g/dL (6.3-8.2)
[2019-02-05] MEDS ORDERED: SODIUM CHLORIDE 0.9% 500 ML 500 ML IV ONE (13:33)
[2019-02-05] MEDS ORDERED: SODIUM CHLORIDE 0.9% 2,000 ML IV ONE (13:33)
--- NOTE | 2019-02-05 13:35 | ED ---
Medical Decision Making - Lab Data Result diagrams: 02/05/19 13:00 02/05/19 13:00 Lab Results 02/05/19 02/05/19 02/05/19 Range/Units 13:00 13:00 13:00 WBC 7.7 (3.8-10.6) k/uL RBC 4.04 (3.80-5.40) m/uL Hgb 10.7 L (11.4-16.0) gm/dL Hct 32.5 L (34.0-46.0) % MCV 80.3 (80.0-100.0) fL MCH 26.4 (25.0-35.0) pg MCHC 32.8 (31.0-37.0) g/dL RDW 14.4 (11.5-15.5) % Plt Count 286 (150-450) k/uL Neutrophils % 60 % Lymphocytes % 31 % Monocytes % 5 % Eosinophils % 1 % Basophils % 0 % Neutrophils # 4.6 (1.3-7.7) k/uL Lymphocytes # 2.3 (1.0-4.8) k/uL Monocytes # 0.4 (0-1.0) k/uL Eosinophils # 0.1 (0-0.7) k/uL Basophils # 0.0 (0-0.2) k/uL Sodium 134 L (137-145) mmol/L Potassium 4.0 (3.5-5.1) mmol/L Chloride 101 (98-107) mmol/L Carbon Dioxide 20 L (22-30) mmol/L Anion Gap 13 mmol/L BUN 7 (7-17) mg/dL Creatinine 0.67 (0.52-1.04) mg/dL Est GFR (CKD-EPI)AfAm >90 (>60 ml/min/1.73 sqM) Est GFR (CKD-EPI)NonAf >90 (>60 ml/min/1.73 sqM) Glucose 115 H (74-99) mg/dL Plasma Lactic Acid Chito 4.4 H* (0.7-2.0) mmol/L Calcium 8.4 (8.4-10.2) mg/dL Total Bilirubin 0.2 (0.2-1.3) mg/dL AST 21 (14-36) U/L ALT 18 (9-52) U/L Alkaline Phosphatase 114 (38-126) U/L Total Protein 6.9 (6.3-8.2) g/dL Albumin 4.2 (3.5-5.0) g/dL Disposition Clinical Impression: COPD exacerbation, Sepsis Disposition: ADMITTED IP TO THIS HOSP Condition: Fair Procedures - Sepsis Sepsis Focused Exam #1 Time Sepsis Criteria Met: 13:30 Sepsis Focused Exam Date: 02/05/19 Sepsis Focused Exam Time: 13:35 Sepsis Focused Exam Complete: Yes Vital Signs & RN Notes Reviewed: Yes Capillary Refill: < 2 Seconds: Fingers, Toes Peripheral Pulses: Normal: Radial (R), Radial (L), Posterior Tibialis (R), Posterior Tibialis (L), Dorsalis Pedis (R), Dorsalis Pedis (L) Skin Color: Normal for Patient Respiratory Exam: wheezes Cardiovascular Exam: regular rate, normal rhythm
[2019-02-05] MEDS ORDERED: clonazePAM 0.5 MG TAB PO PRN (14:41)
[2019-02-05] MEDS ORDERED: SIMETHICONE 80 MG CHEWABLE PO PRN (14:41)
[2019-02-05] MEDS ORDERED: ACETAMINOPHEN TAB 325 MG TAB PO PRN (14:41)
[2019-02-05] MEDS ORDERED: guaiFENesin-DM 100-10MG/5ML 10 ML CUP PO PRN (14:47)
--- NOTE | 2019-02-05 14:51 | P.HPIM ---
History of Present Illness 53-year-old came in with cough, congestion for 5 days patient was given a little Floxin by PCP without any significant held because of which patient came to ER. Patient does have history of COPD but not as be not wheezing much. Patient has minimal shortness of breath. Patient was started on high-dose of her systemic steroids which will discontinue patient was started on prednisone inhalational treatments will be started on azithromycin possibility of discharge tomorrow. He doesn't have any pneumonia on the chest x-ray patient was given Rocephin which will be discontinued. Patient has nonproductive cough. Review of Systems REVIEW OF SYSTEMS: CONSTITUTIONAL: No fever, no malaise, no fatigue. HEENT: No recent visual problems or hearing problems. Denied any sore throat. CARDIOVASCULAR: No chest pain, orthopnea, PND, no palpitations, no syncope. PULMONARY: no hemoptysis. GASTROINTESTINAL: No diarrhea, no nausea, no vomiting, no abdominal pain. NEUROLOGICAL: No headaches, no weakness, no numbness. HEMATOLOGICAL: Denies any bleeding or petechiae. GENITOURINARY: Denies any burning micturition, frequency, or urgency. MUSCULOSKELETAL/RHEUMATOLOGICAL: Denies any joint pain, swelling, or any muscle pain. ENDOCRINE: Denies any polyuria or polydipsia. The rest of the 14-point review of systems is negative. Past Medical History Past Medical History: Asthma, COPD, GERD/Reflux, Hyperlipidemia, Musculoskeletal Disorder, Osteoarthritis (OA), Syncope, Thyroid Disorder Additional Past Medical History / Comment(s): kidney stones, hypoglycemia, chronic neck and L shoulder, lower back pain. Hx L facial and L ankle fxs, sinus problems, vertigo, falls in past due to syncope, low BP at times. Fusion of sacrum and iliac creast-per dr. Luke with postop infection. 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 Rectocele repair. Past Anesthesia/Blood Transfusion Reactions: Previous Problems w/ Anesthesia Additional Past Anesthesia/Blood Transfusion Reaction / Comment(s): "Takes longer to wake up from anesthesia." Smoking Status: Former smoker - Past Family History Mother Family Medical History: Cancer, Thyroid Disorder Additional Family Medical History / Comment(s): Mother of LUNG cancer at age 64 yrs. Father Family Medical History: Asthma, COPD, Osteoarthritis (OA) Additional Family Medical History / Comment(s): Father at age 80 yrs. Medications and Allergies Home Medications Medication Instructions Recorded Confirmed Type Albuterol Inhaler [Ventolin Hfa 1 puff INHALATION RT-QID PRN 12/21/13 02/05/19 History Inhaler] Ezetimibe [Zetia] 10 mg PO HS 09/05/14 02/05/19 History Fluticasone Propionate 1 spray EA NOSTRIL BID 11/25/15 02/05/19 History Citalopram Hydrobromide [CeleXA] 40 mg PO QAM 12/10/15 02/05/19 History OXcarbazepine [Trileptal] 600 mg PO BID 12/10/15 02/05/19 History Levothyroxine Sodium [Synthroid] 25 mcg PO DAILY 03/13/16 02/05/19 History Atorvastatin [Lipitor] 10 mg PO HS 07/20/16 02/05/19 History Simethicone [Gas-X] 125 mg PO Q8H PRN 10/19/16 02/05/19 History Omeprazole 40 mg PO HS 11/13/16 02/05/19 History Estradiol [Estrace] 0.5 mg PO DAILY 02/03/17 02/05/19 History clonazePAM [KlonoPIN] 0.5 mg PO BID PRN 05/03/17 02/05/19 History Cetirizine HCl [Zyrtec] 10 mg PO DAILY 04/19/18 02/05/19 History HYDROcodone/APAP 10-325MG [[place] 1 tab PO Q8HR PRN 30 Days #90 tab 07/26/1801/21 Rx 10-325] Methylphenidate HCl 20 mg PO TID 09/09/18 02/05/19 History Ibuprofen 800 mg PO BID 01/12/19 02/05/19 History Acetaminophen Tab [Tylenol] 325 mg PO Q8H PRN 02/05/19 02/05/19 History Albuterol Nebulized [Ventolin 2.5 mg INHALATION RT-Q4H 02/05/19 02/05/19 History Nebulized] Cyclobenzaprine [Flexeril] 10 mg PO BID 02/05/19 02/05/19 History busPIRone HCL 15 mg PO TID 02/05/19 02/05/19 History Allergies Allergy/AdvReac Type Severity Reaction Status Date / Time Penicillins Allergy Rash/Hives Verified 02/05/19 11:09 Physical Exam Vitals: Vital Signs Temp Pulse Resp BP Pulse Ox 02/05/19 14:00 20 02/05/19 13:34 98.1 F 85 20 125/68 97 02/05/19 12:15 92 02/05/19 12:00 100 02/05/19 11:05 98.6 F 93 18 132/71 98 Intake and Output 02/04/19 02/05/19 02/05/19 22:59 06:59 14:59 Other: Weight 81.647 kg PHYSICAL EXAMINATION: GENERAL: The patient is alert and oriented x3, patient is in significant distress because of cough. Well developed, well nourished. HEENT: Pupils are round and equally reacting to light. EOMI. No scleral icterus. No conjunctival pallor. Normocephalic, atraumatic. No pharyngeal erythema. No thyromegaly. CARDIOVASCULAR: S1 and S2 present. No murmurs, rubs, or gallops. PULMONARY: Good air entry bilateral lung vasquez very minimal expiratory wheezing was appreciated ABDOMEN: Soft, nontender, nondistended, normoactive bowel sounds. No palpable organomegaly. MUSCULOSKELETAL: No joint swelling or deformity. EXTREMITIES: No cyanosis, clubbing, or pedal edema. NEUROLOGICAL: Gross neurological examination did not reveal any focal deficits. SKIN: No rashes. Results CBC & Chem 7: 02/05/19 13:00 02/05/19 13:00 Labs: Abnormal Lab Results - Last 24 Hours (Table) 02/05/19 02/05/19 02/05/19 Range/Units 13:00 13:00 13:00 Hgb 10.7 L (11.4-16.0) gm/dL Hct 32.5 L (34.0-46.0) % Sodium 134 L (137-145) mmol/L Carbon Dioxide 20 L (22-30) mmol/L Glucose 115 H (74-99) mg/dL Plasma Lactic Acid Chito 4.4 H* (0.7-2.0) mmol/L Thrombosis Risk Factor Assmnt - Choose All That Apply Any of the Below Risk Factors Present?: Yes Each Factor Represents 1 point: Age 41-60 years, Obesity (BMI >25) Other Risk Factors: No Other congenital or acquired thrombophilia - If yes, enter type in comment: No Thrombosis Risk Factor Assessment Total Risk Factor Score: 2 Thrombosis Risk Factor Assessment Level: Low Risk Assessment and Plan Plan: -COPD exacerbation patient appears to have mild exacerbation patient was switched to oral steroids probably can be discharged tomorrow patient does have history of asthma as well may have cough variant asthma. Patient quit smoking couple years ago. -Upper respiratory infection bacterial with green sputum production: Patient will continued on azithromycin and Rocephin was discontinued no evidence of pneumonia at this time -Depression -Hyperlipidemia -Hypothyroidism -Gastroesophageal reflux disease, patient will be resumed on Prilosec and simethicone patient sore throat and redness in the throat can be secondary to gastroesophageal reflux disease Anxiety disorder, ADHD: Resume her home medication of the methylphenidate -Patient will need pharmacologic GI prophylaxis, DVT prophylaxis early ambulation
[2019-02-05] MEDS: busPIRone HCl 5 MG TAB PO SCH ×2 (15:11→20:11)
[2019-02-05] MEDS: BENZONATATE 100 MG CAP PO PRN ×2 (15:11→20:11)
[2019-02-05] MEDS: HYDROcodone/APAP 10-325MG 1 EACH TAB PO PRN ×2 (15:11→22:24)
[2019-02-05] MEDS: METHYLPHENIDATE HCL 10 MG TAB PO SCH ×2 (15:11→20:11)
[2019-02-05] MEDS: SODIUM CHLORIDE 0.9% 1,000 ML IV SCH (15:13)
[2019-02-05] MEDS: IPRATROPIUM-ALBUTEROL 3 ML NEB INHALATION SCH ×2 (16:22→19:50)
--- NOTE | 2019-02-05 16:22 | P.CNPUL ---
History of Present Illness Consult date: 02/05/19 Reason for consult: dyspnea, cough, asthma Chief complaint: Cough shortness of breath History of present illness: 53-year-old female who was seen evaluated examined in the medical floor for cough shortness of breath is started about 5 days ago she was treated with the steroids and antibiotics as outpatient by PMD without any significant relief Review of Systems All systems: negative Past Medical History Past Medical History: Asthma, COPD, GERD/Reflux, Hyperlipidemia, Musculoskeletal Disorder, Osteoarthritis (OA), Syncope, Thyroid Disorder Additional Past Medical History / Comment(s): kidney stones, hypoglycemia, chronic neck and L shoulder, lower back pain. Hx L facial and L ankle fxs, sinus problems, vertigo, falls in past due to syncope, low BP at times. Fusion of sacrum and iliac creast-per dr. Luke with postop infection. 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 Rectocele repair. Past Anesthesia/Blood Transfusion Reactions: Previous Problems w/ Anesthesia Additional Past Anesthesia/Blood Transfusion Reaction / Comment(s): "Takes lo nger to wake up from anesthesia." Smoking Status: Former smoker - Past Family History Mother Family Medical History: Cancer, Thyroid Disorder Additional Family Medical History / Comment(s): Mother of LUNG cancer at age 64 yrs. Father Family Medical History: Asthma, COPD, Osteoarthritis (OA) Additional Family Medical History / Comment(s): Father at age 80 yrs. Medications and Allergies Home Medications Medication Instructions Recorded Confirmed Type Albuterol Inhaler [Ventolin Hfa 1 puff INHALATION RT-QID PRN 12/21/13 02/05/19 History Inhaler] Ezetimibe [Zetia] 10 mg PO HS 09/05/14 02/05/19 History Fluticasone Propionate 1 spray EA NOSTRIL BID 11/25/15 02/05/19 History Citalopram Hydrobromide [CeleXA] 40 mg PO QAM 12/10/15 02/05/19 History OXcarbazepine [Trileptal] 600 mg PO BID 12/10/15 02/05/19 History Levothyroxine Sodium [Synthroid] 25 mcg PO DAILY 03/13/16 02/05/19 History Atorvastatin [Lipitor] 10 mg PO HS 07/20/16 02/05/19 History Simethicone [Gas-X] 125 mg PO Q8H PRN 10/19/16 02/05/19 History Omeprazole 40 mg PO HS 11/13/16 02/05/19 History Estradiol [Estrace] 0.5 mg PO DAILY 02/03/17 02/05/19 History clonazePAM [KlonoPIN] 0.5 mg PO BID PRN 05/03/17 02/05/19 History Cetirizine HCl [Zyrtec] 10 mg PO DAILY 04/19/18 02/05/19 History HYDROcodone/APAP 10-325MG [[place] 1 tab PO Q8HR PRN 30 Days #90 tab 07/26/18 02/05/19 Rx 10-325] Methylphenidate HCl 20 mg PO TID 09/09/18 02/05/19 History Ibuprofen 800 mg PO BID 01/12/19 02/05/19 History Acetaminophen Tab [Tylenol] 325 mg PO Q8H PRN 02/05/19 02/05/19 History Albuterol Nebulized [Ventolin 2.5 mg INHALATION RT-Q4H 02/05/19 02/05/19 History Nebulized] Cyclobenzaprine [Flexeril] 10 mg PO BID 02/05/19 02/05/19 History busPIRone HCL 15 mg PO TID 02/05/19 02/05/19 History Allergies Allergy/AdvReac Type Severity Reaction Status Date / Time Penicillins Allergy Rash/Hives Verified 02/05/19 11:09 Physical Exam Vitals: Vital Signs Temp Pulse Pulse Resp BP BP Pulse Ox 02/05/19 15:00 98.2 F 60 16 119/66 97 02/05/19 14:00 20 02/05/19 13:34 98.1 F 85 20 125/68 97 02/05/19 12:15 92 02/05/19 12:00 100 02/05/19 11:05 98.6 F 93 18 132/71 98 Intake and Output 02/05/19 02/05/19 02/05/19 06:59 14:59 22:59 Other: Weight 81.647 kg - Constitutional General appearance: average body habitus, cooperative, disheveled - EENT Eyes: EOMI, PERRLA, dentition normal ENT: normal oropharynx Ears: bilateral: normal - Neck Neck: normal ROM Carotids: bilateral: upstroke normal Thyroid: bilateral: normal size - Respiratory Respiratory: bilateral: rhonchi, wheezing, negative: CTA, diminished, dullness, rales - Cardiovascular Rhythm: regular Heart sounds: normal: S1, S2 - Gastrointestinal General gastrointestinal: normal bowel sounds, soft - Neurologic Neurologic: CNII-XII intact - Musculoskeletal Musculoskeletal: gait normal, generalized weakness, strength equal bilaterally - Psychiatric Psychiatric: A&O x's 3, appropriate affect, intact judgment & insight Results - Laboratory Findings CBC and BMP: 02/05/19 13:00 02/05/19 13:00 Abnormal lab findings: Abnormal Labs 02/05/19 02/05/19 02/05/19 13:00 13:00 13:00 Hgb 10.7 L Hct 32.5 L Sodium 134 L Carbon Dioxide 20 L Glucose 115 H Plasma Lactic Acid Chito 4.4 H* - Diagnostic Findings Chest x-ray: report reviewed, image reviewed (Reviewed) Assessment and Plan Assessment: Acute COPD exacerbation Dyslipidemia Hypothyroidism GERD Plan: IV steroids Breathing treatment Antibiotic Continue home medications Time with Patient: Greater than 30
[2019-02-05 16:59] LABS: Glucose,Whole Blood 165 mg/dL (75-99)
[2019-02-05] MEDS ORDERED: methylPREDNISolone SOD SUCCI 125 MG/2 ML VIAL IV SCH (18:00)
[2019-02-05] MEDS: OXcarbazepine 300 MG TAB PO SCH (20:11)
[2019-02-05] MEDS: CYCLOBENZAPRINE 10 MG TAB PO PRN (20:11)
[2019-02-05] MEDS: FLUTICASONE 50MCG/SPRAY NASAL 16GM EA NOSTRIL SCH (20:11)
[2019-02-05 20:19] LABS: Glucose,Whole Blood 206 mg/dL (75-99)
[2019-02-05] MEDS ORDERED: LORATADINE 10 MG TAB PO SCH (21:00)
[2019-02-05] MEDS ORDERED: PANTOPRAZOLE 40 MG TABLET PO SCH (21:00)
[2019-02-05] MEDS ORDERED: ATORVASTATIN 10 MG TAB PO SCH (21:00)
[2019-02-05] MEDS ORDERED: EZETIMIBE 10 MG TAB PO SCH (21:00)
[2019-02-06] MEDS: SODIUM CHLORIDE 0.9% 1,000 ML IV SCH (04:42)
[2019-02-06 05:42] LABS: Basophils % (A) 0 %; Eosinophils % (A) 0 %; HCT 33.1 % (34.0-46.0); HGB 10.7 gm/dL (11.4-16.0); Lymphocytes # (A) 1.5 k/uL (1.0-4.8); Lymphocytes % (A) 18 %; MCH 26.3 pg (25.0-35.0); MCHC 32.5 g/dL (31.0-37.0); MCV 81.1 fL (80.0-100.0); Mean Platelet Volume 6.5; Monocytes # (A) 0.5 k/uL (0-1.0); Monocytes % (A) 6 %; Neutrophils # (A) 6.2 k/uL (1.3-7.7); Neutrophils % (A) 75 %; Platelet Count 292 k/uL (150-450); RBC 4.07 m/uL (3.80-5.40); RDW 14.6 % (11.5-15.5); WBC 8.3 k/uL (3.8-10.6)
[2019-02-06] MEDS: BENZONATATE 100 MG CAP PO PRN ×2 (05:48→12:00)
[2019-02-06] MEDS: HYDROcodone/APAP 10-325MG 1 EACH TAB PO PRN ×2 (05:48→13:24)
[2019-02-06 05:58] LABS: ALT 17 U/L (9-52); AST 20 U/L (14-36); African American GFR (CKD) >90 (>60 ml/min/1.73 sqM); Albumin 4.3 g/dL (3.5-5.0); Alkaline Phosphatase 112 U/L (38-126); Anion Gap 10 mmol/L; Blood Urea Nitrogen 10 mg/dL (7-17); Calcium 9.3 mg/dL (8.4-10.2); Carbon Dioxide 22 mmol/L (22-30); Chloride 103 mmol/L (98-107); Glucose 125 mg/dL (74-99); Magnesium 2.2 mg/dL (1.6-2.3); Potassium 4.6 mmol/L (3.5-5.1); Sodium 135 mmol/L (137-145); Total Bilirubin 0.2 mg/dL (0.2-1.3); Total Protein 7.2 g/dL (6.3-8.2)
[2019-02-06] MEDS ORDERED: LEVOTHYROXINE 25 MCG TAB PO SCH (06:30)
[2019-02-06 07:22] LABS: Glucose,Whole Blood 118 mg/dL (75-99)
[2019-02-06] MEDS: OXcarbazepine 300 MG TAB PO SCH (07:53)
[2019-02-06] MEDS: busPIRone HCl 5 MG TAB PO SCH (07:54)
[2019-02-06] MEDS: METHYLPHENIDATE HCL 10 MG TAB PO SCH (07:55)
[2019-02-06] MEDS: FLUTICASONE 50MCG/SPRAY NASAL 16GM EA NOSTRIL SCH (07:55)
[2019-02-06] MEDS: CYCLOBENZAPRINE 10 MG TAB PO PRN (07:56)
[2019-02-06 07:59] VITALS: BP 146/83; RESP 16; TEMP 98.6
[2019-02-06] MEDS: IPRATROPIUM-ALBUTEROL 3 ML NEB INHALATION SCH ×2 (08:19→11:22)
[2019-02-06] MEDS ORDERED: predniSONE 20 MG TAB PO SCH (09:00)
[2019-02-06] MEDS ORDERED: CITALOPRAM HYDROBROMIDE 20 MG TAB PO SCH (09:00)
[2019-02-06] MEDS ORDERED: AZITHROMYCIN 500 MG TAB PO SCH (09:00)
[2019-02-06] MEDS ORDERED: ESTRADIOL 0.5 MG TAB PO SCH (09:00)
[2019-02-06] MEDS ORDERED: LORATADINE 10 MG TAB PO SCH (09:00)
[2019-02-06 11:32] VITALS: PULSE 94
[2019-02-06 11:46] LABS: Glucose,Whole Blood 140 mg/dL (75-99)
--- NOTE | 2019-02-06 14:56 | P.DS ---
Providers Date of admission: 02/05/19 13:02 Attending physician: Anastasiya Morel MD Consults: 02/05/19 12:38 Consult Physician Stat Consulting Provider: Edgar Alves Consult Reason/Comments: COPD exacerbation Do you want consulting provider notified?: Yes Primary care physician: Ihsan Ding [facility] Course: 53-year-old female was admitted for COPD exacerbation has minimal wheeze on exam will be discharged on oral steroids and inhalational treatments and the GI prophylaxis. PHYSICAL EXAMINATION: GENERAL: The patient is alert and oriented x3, not in any acute distress. Well developed, well nourished. HEENT: Pupils are round and equally reacting to light. EOMI. No scleral icterus. No conjunctival pallor. Normocephalic, atraumatic. No pharyngeal erythema. No thyromegaly. CARDIOVASCULAR: S1 and S2 present. No murmurs, rubs, or gallops. PULMONARY: Minimal expiratory wheezing on exam ABDOMEN: Soft, nontender, nondistended, normoactive bowel sounds. No palpable organomegaly. MUSCULOSKELETAL: No joint swelling or deformity. EXTREMITIES: No cyanosis, clubbing, or pedal edema. NEUROLOGICAL: Gross neurological examination did not reveal any focal deficits. SKIN: No rashes. Please refer to HPI for further details of hospitalization course and other chronic medical problems that were addressed. Patient Condition at Discharge: Fair Plan - Discharge Summary New Discharge Prescriptions: New predniSONE 10 mg PO DAILY #30 tab guaiFENesin-DM 100-10MG/5ML [Robitussin DM] 10 ml PO Q6H PRN #1 bottle PRN Reason: Cough Azithromycin [Zithromax] 500 mg PO DAILY #4 tab Continue Albuterol Inhaler [Ventolin Hfa Inhaler] 1 puff INHALATION RT-QID PRN PRN Reason: Shortness Of Breath Ezetimibe [Zetia] 10 mg PO HS Fluticasone Propionate 1 spray EA NOSTRIL BID Citalopram Hydrobromide [CeleXA] 40 mg PO QAM OXcarbazepine [Trileptal] 600 mg PO BID Levothyroxine Sodium [Synthroid] 25 mcg PO DAILY Atorvastatin [Lipitor] 10 mg PO HS Simethicone [Gas-X] 125 mg PO Q8H PRN PRN Reason: abdominal cramping Omeprazole 40 mg PO HS Estradiol [Estrace] 0.5 mg PO DAILY clonazePAM [KlonoPIN] 0.5 mg PO BID PRN PRN Reason: Anxiety Cetirizine HCl [Zyrtec] 10 mg PO DAILY HYDROcodone/APAP 10-325MG [[place] 10-325] 1 tab PO Q8HR PRN 30 Days #90 tab PRN Reason: Pain Methylphenidate HCl 20 mg PO TID Cyclobenzaprine [Flexeril] 10 mg PO BID busPIRone HCL 15 mg PO TID Acetaminophen Tab [Tylenol] 325 mg PO Q8H PRN PRN Reason: pain Albuterol Nebulized [Ventolin Nebulized] 2.5 mg INHALATION RT-Q4H Discontinued Ibuprofen 800 mg PO BID Discharge Medication List Albuterol Inhaler [Ventolin Hfa Inhaler] 1 puff INHALATION RT-QID PRN 12/21/13 [History] Ezetimibe [Zetia] 10 mg PO HS 09/05/14 [History] Fluticasone Propionate 1 spray EA NOSTRIL BID 11/25/15 [History] Citalopram Hydrobromide [CeleXA] 40 mg PO QAM 12/10/15 [History] OXcarbazepine [Trileptal] 600 mg PO BID 12/10/15 [History] Levothyroxine Sodium [Synthroid] 25 mcg PO DAILY 03/13/16 [History] Atorvastatin [Lipitor] 10 mg PO HS 07/20/16 [History] Simethicone [Gas-X] 125 mg PO Q8H PRN 10/19/16 [History] Omeprazole 40 mg PO HS 11/13/16 [History] Estradiol [Estrace] 0.5 mg PO DAILY 02/03/17 [History] clonazePAM [KlonoPIN] 0.5 mg PO BID PRN 05/03/17 [History] Cetirizine HCl [Zyrtec] 10 mg PO DAILY 04/19/18 [History] HYDROcodone/APAP 10-325MG [[place] 10-325] 1 tab PO Q8HR PRN 30 Days #90 tab 07/26/18 [Rx] Methylphenidate HCl 20 mg PO TID 09/09/18 [History] Acetaminophen Tab [Tylenol] 325 mg PO Q8H PRN 02/05/19 [History] Albuterol Nebulized [Ventolin Nebulized] 2.5 mg INHALATION RT-Q4H 02/05/19 [History] Cyclobenzaprine [Flexeril] 10 mg PO BID 02/05/19 [History] busPIRone HCL 15 mg PO TID 02/05/19 [History] Azithromycin [Zithromax] 500 mg PO DAILY #4 tab 02/06/19 [Rx] guaiFENesin-DM 100-10MG/5ML [Robitussin DM] 10 ml PO Q6H PRN #1 bottle 02/06/19 [Rx] predniSONE 10 mg PO DAILY #30 tab 02/06/19 [Rx] Follow up Appointment(s)/Referral(s): Ihsan Ding DO [Primary Care Provider] - 02/24/19 2:40 pm Patient Instructions/Handouts: COPD (Chronic Obstructive Pulmonary Disease) (DC) Discharge Disposition: HOME SELF-CARE
== END 2019-02-06 13:37 | disposition home or self-care (01) ==
LOC: EC 11:03 → 4SSUR 13:02
PROVIDERS: ADMIT Internal Medicine; ATTEND Internal Medicine
DX: J44.1 Chronic obstructive pulmonary disease with (acute) exacerbation (principal); J06.9 Acute upper respiratory infection, unspecified; K21.9 Gastro-esophageal reflux disease without esophagitis; E78.5 Hyperlipidemia, unspecified; M19.90 Unspecified osteoarthritis, unspecified site; E03.9 Hypothyroidism, unspecified; G89.29 Other chronic pain; M54.2 Cervicalgia; M54.5 Low back pain; M25.512 Pain in left shoulder; E66.9 Obesity, unspecified; Z68.32 Body mass index [BMI] 32.0-32.9, adult; F32.9 Major depressive disorder, single episode, unspecified; F41.9 Anxiety disorder, unspecified; F90.9 Attention-deficit hyperactivity disorder, unspecified type; Z87.891 Personal history of nicotine dependence; Z87.442 Personal history of urinary calculi; Z79.899 Other long term (current) drug therapy; Z79.890 Hormone replacement therapy; Z79.1 Long term (current) use of non-steroidal anti-inflammatories (NSAID); Z88.0 Allergy status to penicillin; R42 Dizziness and giddiness; Z80.1 Family history of malignant neoplasm of trachea, bronchus and lung
CPT/HCPCS: 71046; 80053; 83605; 83735; 85025; 87040; 94640; 94760; 96361; 96374; 96375; 99284

== ENCOUNTER → 2019-03-09 | Outpatient (CLI) | payer MEDICARE, OTHER ==
[2019-03-09 14:32] VITALS: BP 132/69; PULSE 90; RESP 16
--- NOTE | 2019-03-10 13:04 | P.PAINPG ---
Subjective Progress Note Date: 03/09/19 This is a follow-up visit for this 53 years old female with a chronic history of severe neck pain and low back pain, she is diagnosed with cervical spondylosis and occipital neuralgia, and she had severe low back pain she is diagnosed with postlaminectomy pain syndrome , and right sacroiliitis , recently she underwent a right-sided cervical radiofrequency ablation on 01/26/2019 and reports about 45% pain relief for 3-4 days. She has not noted any long-lasting relief. She reports that a few days prior to the procedure she fell onto a BB gait and hit her head against the wall and injured her right shoulder. She denies any loss of consciousness. Since then, she notes numbness in her right shoulder and has been dropping objects from her right arm. She has been evaluated by her neurosurgeon who is sending her for a cervical spine MRI. Today, she also complains of right low back pain and left knee pain. She underwent a right SI joint fusion in November. This pain in her right low back is worse with movement, bending, walking. For her left knee pain, she follows with orthopedics and has undergone a steroid injection with no significant benefit. Review of systems is negative for chest pain, shortness of breath, new onset weakness, numbness/tingling, abdominal pain, malaise, fever, night sweats, chills, homicidal or suicidal ideation, or bowel or bladder incontinence. Objective Physical exam: Vitals: Reviewed in EMR GENERAL: Well appearing, in no acute distress PSYCH: Mood and affect is appropriate. Awake, alert, and oriented SKIN: Skin color, texture, turgor normal, no rashes or lesions HEENT: Normocephalic, atraumatic. EOM intact CV: No pedal edema RESP: Respirations are unlabored, no audible wheezing GI: Abdomen non-distended MUSCULOSKELETAL: Bilateral upper and lower extremity strength is normal and symmetric. No atrophy or tone abnormalities are noted. Neck: C-spine surgery scar noted. Tenderness to palpation over the cervical paraspinous muscles. Spurling negative, Aaron's sign negative. No obvious deformity or signs of trauma. Normal cervical lordotic curve and I'll leave reduced cervical spine range of motion Lumbar spine: Midline and paramedian scars noted over lower lumbar region as well as right SI joint. Multiple trigger points palpable in this region, which reproduces her typical pain. Straight leg raising in the sitting position is negative for radicular pain. No pain to palpation over the lumbar spine and paraspinous muscles. Negative for pain with facet loading and back extension/rotation. Buttocks: Tenderness to palpation over the 8 PSIS, Tim's test positive on right Extremities: Peripheral joint ROM is full and pain free without obvious instability or laxity in all four extremities. No edema or skin discolorations noted. Gait: Gait is slow, antalgic NEUR: Bilateral upper and lower extremity coordination and muscle stretch reflexes are physiologic and symmetric. Negative clonus bilaterally. No loss of sensation is noted. Assessment and Plan Plan: Assessment and plan= chronic low back pain secondary to lumbar postlaminectomy pain syndrome, right sacroiliitis status post right sacroiliac joint fusion Chronic severe neck pain secondary to cervical spondylosis, and occipital neuralgia , failed back surgery syndrome and cervical area Patient reports no significant benefit from right-sided cervical radiofrequency ablation done on 01/26/2019 (TON, C3, C4). chronic and current use of high-risk medication (opioids) Patient denies any side effects of the current pain medication and the cur rent treatment/medication helping the patient to do activity of daily living , Diagnoses, prognosis, treatment options, including but not limited to physical therapy, medication management, interventional therapies, and surgery, were discussed with the patient All the questions answered The narcotic consent was signed and patient agreed and understood the side effects and complications of opioid treatment. Patient signed the narcotic agreement, and was orally counseled, not to overuse, not to abuse, not to Divert , not to sell pain medication, and to take it as prescribed only, Patient was counseled not to drive or operate heavy equipment while using narcotic medication, and advised not to use alcohol or any Illicit drugs while using the narcotics. understanding that lack of compliance with any of the above instructions, will likely to cause discharge from, the pain service, not to renew his narcotic prescriptions MAPS Reviewed and it was appropriate . Medication managements= patient will be given prescription refills for [place] 10/325 every 8 hours dispense 90 with 1 refill, Flexeril 10 mg 3 times a day dispensed 90 with 1 refile Interventions= will schedule bilateral lumbar paraspinal and gluteus sandie trigger point injections. Patient instructed to bring C-spine MRI report once that is obtained. Follow-up: For procedure Objective - Vital Signs Vital signs: Vital Signs Temp Pulse 90 03/09/19 14:23 Resp 16 03/09/19 14:23 BP 132/69 03/09/19 14:23 Pulse Ox 96 03/09/19 14:23 Intake & Output 03/09/19 03/10/19 03/10/19 18:59 06:59 18:59 Weight 86.183 kg PQRS Measure Charge Sheet Measure #130: Documentation of Current Meds in Medical Chart: Patient's medications documented in chart Measure #226: Tobacco Use: Screen & Cessation Intervention: Pt not a tobacco user Measure #111: Pneumonia Vaccination: Pneumococcal vaccine administered or previously received Measure #47: Advance Care Plan: Advance care planning discussed & documented, pt chose/unable to give Measure #412: Opioid Treatment Agreement: Documented signed opioid trtmnt agreemnt min once during opioid trtmnt Measure #408: Opioid Therapy Follow-up Evaluation: Patient had f/u eval minimum every 3 months during opioid therapy Measure #317: Preventitive Care & Scrn High Bld Press & F/U: Normal blood pressure, f/u not required Measure #128: Body Mass Index (BMI) Screening & Follow-up: BMI documented ABOVE normal parameters - f/u documented Measure #131: Pain Assessment & Follow-up: Pain positive & plan documented, Follow-up scheduled Measure #431: Unhealthy Alcohol Use Preventative Care & Scrn: Patient not identified as an unhealthy alcohol user PQRS Narrative: Smoking Status Former smoker Narcotic Agreement Date Signed 09/20/18 Blood Pressure 132/69 Pain Intensity [Right Lower 8 Back] Hx Alcohol Use (MH) No Home Medications: Ambulatory Orders Albuterol Inhaler [Ventolin Hfa Inhaler] 1 puff INHALATION RT-QID PRN 12/21/13 Ezetimibe [Zetia] 10 mg PO HS 09/05/14 Fluticasone Propionate 1 spray EA NOSTRIL BID 11/25/15 Citalopram Hydrobromide [CeleXA] 40 mg PO QAM 12/10/15 OXcarbazepine [Trileptal] 600 mg PO BID 12/10/15 Levothyroxine Sodium [Synthroid] 25 mcg PO DAILY 03/13/16 Atorvastatin [Lipitor] 10 mg PO HS 07/20/16 Simethicone [Gas-X] 125 mg PO Q8H PRN 10/19/16 Omeprazole 40 mg PO HS 11/13/16 Estradiol [Estrace] 0.5 mg PO DAILY 02/03/17 clonazePAM [KlonoPIN] 0.5 mg PO BID PRN 05/03/17 Cetirizine HCl [Zyrtec] 10 mg PO DAILY 04/19/18 HYDROcodone/APAP 10-325MG [Sanders 10-325] 1 tab PO Q8HR PRN 30 Days #90 tab 07/26/18 Methylphenidate HCl 20 mg PO TID 09/09/18 Acetaminophen Tab [Tylenol] 325 mg PO Q8H PRN 02/05/19 Albuterol Nebulized [Ventolin Nebulized] 2.5 mg INHALATION RT-Q4H 02/05/19 Cyclobenzaprine [Flexeril] 10 mg PO BID 02/05/19 busPIRone HCL 15 mg PO TID 02/05/19 Controlled Substance Measures - Controlled Substance Measures Is patient prescribed a controlled substance at discharge?: Yes When asked, does pt state using other controlled substances?: No If prescribed controlled substance>3 days was MAPS reviewed?: Yes If Rx opioid, was Start Talking consent form obtained?: Yes If opioid is for acute pain is fill amount 7 days or less?: No Was information provided regarding opioid addiction?: Yes
== END | disposition home or self-care (01) ==
LOC: PNWHC3 13:00
PROVIDERS: ATTEND Anesthesiology
DX: G89.29 Other chronic pain (principal); M96.1 Postlaminectomy syndrome, not elsewhere classified; M47.812 Spondylosis without myelopathy or radiculopathy, cervical region; M46.1 Sacroiliitis, not elsewhere classified; M54.81 Occipital neuralgia; Z79.3 Long term (current) use of hormonal contraceptives; Z79.891 Long term (current) use of opiate analgesic; Z79.899 Other long term (current) drug therapy; Z87.891 Personal history of nicotine dependence; Z98.1 Arthrodesis status
CPT/HCPCS: 99211

== ENCOUNTER → 2019-03-14 | Outpatient (CLI) | payer MEDICARE, OTHER ==
--- NOTE | 2019-03-14 16:12 | MR ---
EXAMINATION TYPE: MR cervical spine wo con DATE OF EXAM: 03/14/2019 3:45 PM COMPARISON: EXAMINATION TYPE: MR cervical spine wo con DATE OF EXAM: 03/14/2019 3:45 PM COMPARISON: EXAMINATION TYPE: MR cervical spine wo con DATE OF EXAM: 03/14/2019 3:45 PM HISTORY: Cervicalgia / Cervical disc disorder Multiplanar MultiSpin echo imaging of the cervical spine was performed. Comparison: MRI cervical spine December 26, 2016. Cervical spine x-ray earlier today. Craniocervical junction is maintained. There is no artifact from anterior fusion plate and disc mater ial C4-C6 levels. Vertebral body heights and disc space heights above and below surgical levels are s atisfactory. C2-C3: Left foraminal spur disc complex causes [id number] left-sided neural foraminal narrowing . No significant change from prior MRI. C3-C4: Broad-based posterior disc protrusion mildly effaces the anterior thecal sac and causes mild- to-moderate left-sided neural foraminal narrowing due to foraminal extension. No significant change f rom prior. C4-C5: Artifact from surgical change. Improvement in posterior spur disc complex. Persistent mild to moderate bilateral neural foraminal narrowing. C5-C6: Artifact from surgical change. Improvement in spinal canal effacement. Persistent moderate lef t greater than right bilateral neural foraminal narrowing. C6-C7: Artifact from superior surgical change. Persistent mild bilateral neural foraminal narrowing. C7-T1: No evidence for degenerative disc disease. No disc bulge/herniation or protrusion. No Canal stenosis. Foramina are patent bilaterally. There is satisfactory alignment after surgery. Cervical spinal cord is of normal signal. IMPRESSION: Interval surgery C4-C6 levels with satisfactory alignment and improvement in posterior sp ur disc complexes. No new suspicious degenerative changes are evident.
--- NOTE | 2019-03-14 20:18 | XR ---
EXAMINATION TYPE: XR cervical spine w flex/ext DATE OF EXAM: 03/14/2019 TECHNIQUE: Frontal, lateral, dynamic flexion and extension lateral, oblique, swimmers, and open mouth view of the cervical spine are obtained. HISTORY: M54.2 Cervicalgia / M50.00 Cervical disc disorder history of prior neck surgery COMPARISON: Cervical spine x-ray April 13, 2018 FINDINGS: The cervical spine is visualized only from C1 thru the top of C7 level, it is satisfactory in alignment without evidence of acute fracture or dislocation. The pre-vertebral soft tissue appea rs within normal limits. The C1-C2 articulation is within normal limits on the open mouth view. Ante rior fusion plate and artificial disc material C4-C6 levels is redemonstrated. Dynamic images show li mited extension. Flexion images show anterior translation of C2 on C3. Vertebral body heights and dis c space heights above C4 level are maintained. Suboptimal evaluation of C7 vertebra and C7-T1 disc sp bertha. The oblique images are within normal limits. Overlying soft tissue is unremarkable. IMPRESSION: As above.
== END | disposition home or self-care (01) ==
LOC: RADMRIMAIN 14:47
PROVIDERS: ATTEND Neurological Surgery
DX: M50.00 Cervical disc disorder with myelopathy, unspecified cervical region (principal); Z98.1 Arthrodesis status
CPT/HCPCS: 72052; 72141

== ENCOUNTER 2019-03-21 09:07 | Day surgery (SDC) | payer MEDICARE, OTHER ==
[2019-03-16 11:35] VITALS: BMI 34.7
[~2019-03-21 09:07] MED LIST changes: +LACTATED RINGERS 1,000 ML IV SCH; -SODIUM CHLORIDE 0.9% 500 ML 500 ML IV SCH
[2019-03-21] MEDS ORDERED: LIDOCAINE 1% 20 ML VIAL (10MG/ML) FOR IV START INTRADERMA ONE (09:45)
[2019-03-21 10:01] VITALS: TEMP 97.8
[2019-03-21] MEDS ORDERED: fentaNYL (PF) 50 MCG/ML 2 ML AMP IV ONE (10:02)
[2019-03-21 10:16] LABS: Glucose,Whole Blood 103 mg/dL (75-99)
--- NOTE | 2019-03-21 10:45 | P.PCN ---
Date of Procedure: 03/21/19 Preoperative Diagnosis: Myofascial pain and lumbar postlaminectomy pain syndrome Postoperative Diagnosis: Same as above Procedure(s) Performed: Trigger point injection in the right gluteus sandie muscle and the right lumbar paravertebral musculature Anesthesia: MAC (IV moderate conscious sedation with Versed and fentanyl) Surgeon: Carie Velasquez Pathology: none sent Condition: stable Disposition: PACU Description of Procedure: The patient was seen in preop holding area consent was obtained then she was brought into the procedure room and placed in the left lateral decubitus position. The premarked target points on the right side of her lumbar spine and at the right gluteus sandie muscle were identified and skin was cleaned with DuraPrep. I then used 25-gauge 1-1/2 inch needle to go through the skin and into the above-mentioned muscles and injected 1 mL of a solution made up of 9 MLS of ropivacaine 0.5% +40 mg of Kenalog. Patient tolerated procedure well. A total of 10 trigger points were injected.
[2019-03-21] MEDS ORDERED: IV FLUID CONTINUATION 1,000 ML IV ONE (10:47)
[2019-03-21 10:48] VITALS: RESP 16
[2019-03-21 11:07] VITALS: BP 113/69; PULSE 79
== END 2019-03-21 11:12 | disposition home or self-care (01) ==
LOC: ORPAIN 09:07
PROVIDERS: ATTEND Anesthesiology
DX: M79.18 Myalgia, other site (principal); M47.812 Spondylosis without myelopathy or radiculopathy, cervical region; G89.29 Other chronic pain; M96.1 Postlaminectomy syndrome, not elsewhere classified; M46.1 Sacroiliitis, not elsewhere classified; Z98.1 Arthrodesis status; M54.81 Occipital neuralgia; Z87.891 Personal history of nicotine dependence; Z79.890 Hormone replacement therapy; Z79.899 Other long term (current) drug therapy
CPT/HCPCS: 20552; J2250; J3301; J3010

== ENCOUNTER → 2019-05-04 | Outpatient (CLI) | payer MEDICARE, OTHER ==
[2019-05-04 13:01] VITALS: BP 121/86; PULSE 92; RESP 16
--- NOTE | 2019-05-04 13:54 | P.PAINPG ---
Subjective Progress Note Date: 05/04/19 This is a follow-up visit for this 53 years old female with a chronic history of severe neck pain and low back pain, she is diagnosed with cervical spondylosis and occipital neuralgia, and myofascial pain syndrome lumbar area, recently we have done trigger point injection in the lumbar area and she had good pain relief, currently she is complaining of severe cervical and upper thoracic and right shoulder pain, which is increased with any neck movement or right shoulder movement, she is currently on [place] 10/325 every 8 hours and Flexeril 10 mg twice a day, she is able to ambulate, she had no motor or sensory deficit, but the intensity of the pain interfering with her quality of life. Physical Examinations : -Constitutiona : Cooperative , not in acute distress . -HEENT : nech ; supple , no Lymphadenopathy , normal thyroid size . eyes : no ptosis , no icterus, no photophobia . ENT : normal of hearing , normal oropharynx , no Thrush . - Respiratory : Chest clear to auscultations Bilaterally , no wheezing , no Rhonchi . - Cardiovascula : regular rate and rhythem , S1 , S2 , no S3 , no S4. - Gastrointestina : abdomen soft no tenderness , bowel sounds , no organomegally . - Genitourinary : Defferred . - neurologic : Cranial nerve II to XII intact , no focal neurological deffecit . -psychatric : alert , oriented X 3 , appropriate affect , intact judgment and insight . -Lymphatic : no Lymphadenopathy . - musculoskeltal : Cervical Spine motor stregnth in the deltoid and biceps, normal right side , normal Left side motor stregnth biceps and the wrist extensors normal right side ,normal left side . motor stregnth in the triceps muscle . normal Right side , normal Left side deep tendon reflexes normal at the biceps , normal at Brachioradialis , normal at triceps. Multiple trigger point identified in the right sided cervical paravertebral muscles on the right upper thoracic paravertebral muscles Flexion and lateral rotation of the right shoulder associated with severe pain Lumber spine moter stegnth lower extremities ,thigh and legs 5/5 Right side , 5/5 Left side Assessment and plan= chronic low back pain secondary to lumbar postlaminectomy pain syndrome, right sacroiliitis status post right sacroiliac joint fusion Chronic severe neck pain secondary to cervical spondylosis, Right shoulder arthralgia , and myofascial pain syndrome right-sided cervical paravertebral muscles and thoracic paravertebral muscl chronic and current use of high-risk medication (opioids) Patient denies any side effects of the current pain medication and the current treatment/medication helping the patient to do activity of daily living , Diagnoses, prognosis, treatment options, including but not limited to physical therapy, medication management, interventional therapies, and surgery, were discussed with the patient All the questions answered The narcotic consent was signed and patient agreed and understood the side effects and complications of opioid treatment. Patient signed the narcotic agreement, and was orally counseled, not to overuse, not to abuse, not to Divert , not tp sell pain medication, and to take it as prescribed only, Patient was counseled not to drive or operate heavy equipment while using narcotic medication, and advised not to use alcohol or any Illicit drugs while using the narcotis. understanding that lack of compliance with any of the above instructions, will likely to cause discharge from, the pain service, not to renew his narcotic prescriptions MAPS Reviwed and it was apropriate . Medication managements= patient will be given prescription refills for [place] 10/325 every 8 hours dispense 90 with 1 refill, Flexeril 10 mg 2 times a day dispensed 90 with 1 refile Interventions= she will be good candidate to have right shoulder steroid injections under fluoroscopy guidance and trigger point injections and cervical/ thoracic , Objective - Vital Signs Vital signs: Vital Signs Temp Pulse 92 05/04/19 12:50 Resp 16 05/04/19 12:50 BP 121/86 05/04/19 12:50 Pulse Ox 96 05/04/19 12:50 Intake & Output 05/03/19 05/04/19 05/04/19 18:59 06:59 18:59 Weight 86.183 kg PQRS Measure Charge Sheet Measure #130: Documentation of Current Meds in Medical Chart: Patient's medications documented in chart Measure #226: Tobacco Use: Screen & Cessation Intervention: Pt not a tobacco user Measure #111: Pneumonia Vaccination: Pneumococcal vaccine administered or previously received Measure #47: Advance Care Plan: Advance care planning discussed & documented, pt chose/unable to give Measure #412: Opioid Treatment Agreement: Documented signed opioid trtmnt agreemnt min once during opioid trtmnt Measure #408: Opioid Therapy Follow-up Evaluation: Patient had f/u eval minimum every 3 months during opioid therapy Measure #317: Preventitive Care & Scrn High Bld Press & F/U: Normal blood pressure, f/u not required Measure #128: Body Mass Index (BMI) Screening & Follow-up: BMI documented ABOVE normal parameters - f/u documented Measure #131: Pain Assessment & Follow-up: Pain positive & plan documented, Follow-up scheduled Measure #431: Unhealthy Alcohol Use Preventative Care & Scrn: Patient not identified as an unhealthy alcohol user PQRS Narrative: Smoking Status Former smoker Narcotic Agreement Date Signed 09/20/18 Blood Pressure 121/86 Pain Intensity [Right Buttock] 9 Scale Used Numeric (1 - 10) Hx Alcohol Use (MH) No Home Medications: Ambulatory Orders Albuterol Inhaler [Ventolin Hfa Inhaler] 1 puff INHALATION RT-QID PRN 12/21/13 Ezetimibe [Zetia] 10 mg PO HS 09/05/14 Fluticasone Propionate 1 spray EA NOSTRIL BID 11/25/15 Citalopram Hydrobromide [CeleXA] 40 mg PO QAM 12/10/15 OXcarbazepine [Trileptal] 600 mg PO BID 12/10/15 Levothyroxine Sodium [Synthroid] 25 mcg PO DAILY 03/13/16 Atorvastatin [Lipitor] 10 mg PO HS 07/20/16 Simethicone [Gas-X] 125 mg PO Q8H PRN 10/19/16 Omeprazole 40 mg PO HS 11/13/16 Estradiol [Estrace] 0.5 mg PO DAILY 02/03/17 clonazePAM [KlonoPIN] 0.5 mg PO BID PRN 05/03/17 Cetirizine HCl [Zyrtec] 10 mg PO DAILY 04/19/18 Methylphenidate HCl 20 mg PO TID 09/09/18 Acetaminophen Tab [Tylenol] 325 mg PO Q8H PRN 02/05/19 Albuterol Nebulized [Ventolin Nebulized] 2.5 mg INHALATION RT-Q4H 02/05/19 busPIRone HCL 15 mg PO TID 02/05/19 Cyclobenzaprine [Flexeril] 10 mg PO BID PRN #60 tab 05/04/19 HYDROcodone/APAP 10-325MG [[place] 10-325] 1 tab PO Q8HR PRN 30 Days #90 tab 05/04/19 HYDROcodone/APAP 10-325MG [[place] 10-325] 1 tab PO Q8HR PRN 30 Days #90 tab 05/04/19 Controlled Substance Measures - Controlled Substance Measures Is patient prescribed a controlled substance at discharge?: Yes When asked, does pt state using other controlled substances?: No If prescribed controlled substance>3 days was MAPS reviewed?: Yes If Rx opioid, was Start Talking consent form obtained?: Yes If opioid is for acute pain is fill amount 7 days or less?: No Was information provided regarding opioid addiction?: Yes
== END | disposition home or self-care (01) ==
LOC: PNWHC3 12:24
PROVIDERS: ATTEND Specialist
DX: M96.1 Postlaminectomy syndrome, not elsewhere classified (principal); M46.1 Sacroiliitis, not elsewhere classified; M47.812 Spondylosis without myelopathy or radiculopathy, cervical region; M79.18 Myalgia, other site; M25.511 Pain in right shoulder; G89.29 Other chronic pain; Z79.891 Long term (current) use of opiate analgesic; Z79.899 Other long term (current) drug therapy; Z98.1 Arthrodesis status; Z87.891 Personal history of nicotine dependence
CPT/HCPCS: 99211

== ENCOUNTER 2019-05-16 06:05 | Day surgery (SDC) | payer MEDICARE, OTHER ==
[2019-05-15 08:51] VITALS: BMI 35.4
[2019-05-16] MEDS ORDERED: LIDOCAINE 1% 20 ML VIAL (10MG/ML) FOR IV START INTRADERMA ONE (06:37)
[2019-05-16 06:39] VITALS: RESP 16; TEMP 97.3
[2019-05-16] MEDS ORDERED: LACTATED RINGERS 1,000 ML IV ONE (07:50)
--- NOTE | 2019-05-16 07:52 | P.PCN ---
Date of Procedure: 05/16/19 Procedure(s) Performed: Two procedures were performed, joint injection and trigger point injections. PROCEDURE: Right intraarticular shoulder joint injection under fluoroscopy PREOPERATIVE DIAGNOSIS: Right shoulder osteoarthritis. POSTOPERATIVE DIAGNOSIS: Right shoulder osteoarthritis. SURGEON: Tania Pablo MD ASSISSTANT: ANESTHESIA: Moderate sedation with 2 mg of midazolam and 100 mcg of fentanyl EBL: None. COMPLICATIONS: None. IV FLUIDS: 100 ml of Normal Saline PROCEDURE INDICATION: Right shoulder pain secondary to osteoarthritis. PROCEDURE DESCRIPTION: The patient was seen and identified in the preoperative area. Risks, benefits, complications, and alternatives were discussed with the patient. The patient agreed to proceed with the procedure and signed the consent. The patient was placed in the prone position on the procedure table and the right shoulder was prepped and draped in the usual sterile fashion. We used sterile gloves for the procedure. The medial joint space was identified by fluoroscopy. Block solution was prepared with 40 mg of Kenalog in 5 mL of 0.5% roppivacaine preservative-free. A 22-gauge needle was advanced through the aforementioned site into the intraarticular space, and after negative aspiration,5 mL of block solution was injected. Skin was cleansed, and bandage was applied. Images were saved to radiology Preoperative Diagnosis: myofascial pain Postoperative diagnosis: Same Physician: Samy Indications for procedure: This is a 53-year-old patient with myofascial pain and palpable trigger points in right cervicla paraspinal, trapezius, and supraspinatus muscles. The patient consents for an injection after an explanation of risks including but not limited to bleeding and infection, benefits, and alternatives and the patient has signed a consent form indicating understanding of all of them. Description of procedure: After informed consent was obtained the patient's back was sterilely prepped in the usual fashion with ChloraPrep. 8 trigger points were identified via palpation of the cervical paraspina, trapezius, and supraspinatus muscles and marked sterilely. Each trigger point was injected with a 25-gauge half inch needle, with 1 mL of .5 ropivicaine for total of 8 mls. The patient's vital signs were stable afterwards and the procedure was tolerated well. Patient was discharged home with follow-up instructions. DISPOSITION / PLANS: The patient was taken back to recovery room in a stable position. . Patient was discharged from the recovery room, accompanied by an adult, after meeting discharge criteria. Home discharge instructions were given to the patient. The patient was reexamined prior to discharge. The patient will schedule a follow up visit in the clinic in a few weeks.
[2019-05-16 08:02] VITALS: BP 115/73; PULSE 81
--- NOTE | 2019-05-16 12:09 | FL ---
EXAMINATION TYPE: FL guided pain mgmt statistic DATE OF EXAM: 05/16/2019 CLINICAL HISTORY: Right shoulder pain. TECHNIQUE: Fluoroscopic documentation during right shoulder arthrogram COMPARISON: None. FINDINGS: Fluoroscopic guidance was provided during pain relief procedure performed by Dr. Pablo . A total of 4 seconds of fluoroscopic time was utilized during the procedure and 1 spot images are a cquired. Image acquired shows needle localization of the right shoulder with contrast injection. IMPRESSION: As Above.
== END 2019-05-16 08:15 | disposition home or self-care (01) ==
LOC: ORPAIN 06:05
PROVIDERS: ATTEND Student in an Organized Health Care Education/Training Program
DX: M79.18 Myalgia, other site (principal); M19.011 Primary osteoarthritis, right shoulder; Z88.0 Allergy status to penicillin
CPT/HCPCS: 20553; 20610; J2250; J3301; J3010; Q9966; 20552; 99152

== ENCOUNTER → 2019-06-08 | Outpatient (CLI) | payer MEDICARE, OTHER ==
--- NOTE | 2019-06-08 11:23 | MR ---
EXAMINATION TYPE: MR knee LT wo con DATE OF EXAM: 06/08/2019 COMPARISON: None HISTORY: Lt knee pain, AVN TECHNIQUE: Multiplanar, multisequence imaging of the left knee is performed without IV contrast. FINDINGS: There is abnormal signal involving the posterior medial and lateral femoral condyle compati ble with osteonecrosis. Within the anterior margin of the distal femur there is an area of Signal also suspicious for a additional focus of osteonecrosis. Small amount of fluid in the suprapatellar bursa. Retinaculum intact. Patellar cartilage maintained. Patellar and quadriceps tendons intact. Medial collateral and lateral collateral ligaments have a normal appearance. There is grade III chondromalacia involving the femoral articular cartilage medially. There is intrasubstance signal posterior horn medial meniscus suggestive of a small linear tear. Intr asubstance signal involving posterior horn the lateral meniscus is more typical of myxoid degeneratio n. Anterior cruciate and posterior cruciate ligaments intact. No popliteal fossa cyst identified. IMPRESSION: 1. There is multifocal evidence of osteonecrosis particularly noted involving the posterior medial an d lateral femoral condyle as discussed above. 2. Signal involving the posterior horn the medial meniscus suspicious for a subtle linear tear. 3. Grade III chondromalacia medial femoral articular cartilage correlate for osteoarthritis. No free fragment.
== END | disposition home or self-care (01) ==
LOC: RADMRIMAIN 10:00
PROVIDERS: ATTEND Orthopaedic Surgery
DX: M94.262 Chondromalacia, left knee (principal)

== ENCOUNTER → 2019-06-29 | Outpatient (CLI) | payer MEDICARE, OTHER ==
[2019-06-29 13:04] VITALS: BP 124/73; PULSE 95; RESP 18
--- NOTE | 2019-06-29 15:23 | P.PAINPG ---
Subjective Progress Note Date: 06/29/19 This is a follow-up visit for this 54 year old female with a chronic history of severe neck pain and low back pain, she is diagnosed with cervical spondylosis and occipital neuralgia, and myofascial pain syndrome lumbar area, she has been managed with combination of interventional pain procedures and medications. She most recently underwent a right shoulder intra-articular steroid injection and trigger point injections on 05/16/2019. She returns today for follow-up. She reports that this injection provided her about 3 weeks of 50% relief. She is currently on Vinton 10/325 every 8 hours and Flexeril 10 mg twice a day, she is able to ambulate, she had no motor or sensory deficit, but the intensity of the pain interfering with her quality of life. She denies side effects from medications, and the medications are helping improve her quality of life. Her primary pain complaint today is right low back radiating to right posterior thigh and calf, up to ankle. She also reports left-sided knee pain, and is scheduled to have a knee arthroscopy on 07/14/2019 at [facility]. Review of systems is negative for chest pain, shortness of breath, new onset weakness, numbness/tingling, abdominal pain, malaise, fever, night sweats, chills, homicidal or suicidal ideation, or bowel or bladder incontinence. Physical exam: Vitals: Reviewed in EMR GENERAL: Well appearing, in no acute distress PSYCH: Mood and affect is appropriate. Awake, alert, and oriented SKIN: Skin color, texture, turgor normal, no rashes or lesions HEENT: Normocephalic, atraumatic. EOM intact CV: No pedal edema RESP: Respirations are unlabored, no audible wheezing GI: Abdomen non-distended MUSCULOSKELETAL: Bilateral lower extremity strength is normal and symmetric. No atrophy or tone abnormalities are noted. Lumbar spine: Straight leg raising in the sitting position is positive on the right side for radicular pain into right lower extremity. Tenderness to palpation over the lumbar spine and paraspinous muscles. Bilateral lumbar scar is visible, well-healed. Negative for pain with facet loading and back exten laura/rotation. Restricted range of motion of lumbar spine Buttocks: No pain to palpation over the PSIS, sacroiliac joint maneuvers are negative for pain. Extremities: Tenderness to palpation of left medial knee. No edema or skin discolorations noted. Gait: Gait is normal NEUR: Bilateral upper and lower extremity coordination and muscle stretch reflexes are physiologic and symmetric. Negative clonus bilaterally. No loss of sensation is noted. MRI lumbar spine reviewed which shows posterior spinal fusion at L5-S1. Assessment and plan= chronic low back pain secondary to lumbar postlaminectomy pain syndrome, right lumbar radiculopathy, right sacroiliitis status post right sacroiliac joint fusion Chronic severe neck pain secondary to cervical spondylosis, Right shoulder arthralgia , and myofascial pain syndrome right-sided cervical paravertebral muscles and thoracic paravertebral muscles Left knee osteoarthritis chronic and current use of high-risk medication (opioids) Patient denies any side effects of the current pain medication and the current treatment/medication helping the patient to do activity of daily living , Diagnoses, prognosis, treatment options, including but not limited to physical therapy, medication management, interventional therapies, and surgery, were discussed with the patient All the questions answered The narcotic consent was signed and patient agreed and understood the side effects and complications of opioid treatment. Patient signed the narcotic agreement, and was orally counseled, not to overuse, not to abuse, not to Divert , not to sell pain medication, and to take it as prescribed only, Patient was counseled not to drive or operate heavy equipment while using narcotic medication, and advised not to use alcohol or any Illicit drugs while using the narcotics understanding that lack of compliance with any of the above instructions, will likely to cause discharge from the pain service, not to renew narcotic prescriptions MAPS Reviewed and it was appropriate . UDS was ordered today Medication managements= patient will be given prescription refills for Vinton 10/325 every 8 hours dispense 90 with 1 refill, Flexeril 10 mg 2 times a day dispensed 90 with 1 refill Interventions= she will be good candidate for a caudal epidural steroid injection with lysis of adhesions Counseling: Patient was counseled on the importance of weight loss and exercise. Follow-up: for above-mentioned procedure at next available and medication management in 8 weeks. PQRS Measure Charge Sheet Measure #130: Documentation of Current Meds in Medical Chart: Patient's medications documented in chart Measure #226: Tobacco Use: Screen & Cessation Intervention: Pt not a tobacco user Measure #111: Pneumonia Vaccination: Pneumococcal vaccine administered or previously received Measure #47: Advance Care Plan: Advance care planning discussed & documented, pt chose/unable to give Measure #412: Opioid Treatment Agreement: Documented signed opioid trtmnt agreemnt min once during opioid trtmnt Measure #408: Opioid Therapy Follow-up Evaluation: Patient had f/u eval minimum every 3 months during opioid therapy Measure #317: Preventitive Care & Scrn High Bld Press & F/U: Normal blood pressure, f/u not required Measure #128: Body Mass Index (BMI) Screening & Follow-up: BMI documented ABOVE normal parameters - f/u documented Measure #131: Pain Assessment & Follow-up: Pain positive & plan documented, Follow-up scheduled Measure #431: Unhealthy Alcohol Use Preventative Care & Scrn: Patient not identified as an unhealthy alcohol user PQRS Narrative: Smoking Status Former smoker Narcotic Agreement Date Signed 09/20/18 Pain Intensity [Left Knee] 10 Scale Used Numeric (1 - 10) Hx Alcohol Use (MH) No Home Medications: Ambulatory Orders Albuterol Inhaler [Ventolin Hfa Inhaler] 1 puff INHALATION RT-QID PRN 12/21/13 Ezetimibe [Zetia] 10 mg PO HS 09/05/14 Fluticasone Propionate 1 spray EA NOSTRIL BID 11/25/15 Citalopram Hydrobromide [CeleXA] 40 mg PO QAM 12/10/15 OXcarbazepine [Trileptal] 600 mg PO BID 12/10/15 Levothyroxine Sodium [Synthroid] 50 mcg PO DAILY 03/13/16 Atorvastatin [Lipitor] 10 mg PO HS 07/20/16 Simethicone [Gas-X] 125 mg PO Q8H PRN 10/19/16 Omeprazole 40 mg PO HS 11/13/16 Estradiol [Estrace] 0.5 mg PO DAILY 02/03/17 clonazePAM [KlonoPIN] 0.5 mg PO BID PRN 05/03/17 Cetirizine HCl [Zyrtec] 10 mg PO DAILY 04/19/18 Methylphenidate HCl 20 mg PO TID 09/09/18 Acetaminophen Tab [Tylenol] 325 mg PO Q8H PRN 02/05/19 Albuterol Nebulized [Ventolin Nebulized] 2.5 mg INHALATION RT-Q4H PRN 02/05/19 busPIRone HCL 15 mg PO TID 02/05/19 Cyclobenzaprine [Flexeril] 10 mg PO BID PRN #60 tab 05/04/19 HYDROcodone/APAP 10-325MG [Vinton 10-325] 1 tab PO Q8HR PRN 30 Days #90 tab 05/04/19 Breo(Unknown Dose) 1 dose .ROUTE DAILY 06/22/19 Controlled Substance Measures - Controlled Substance Measures Is patient prescribed a controlled substance at discharge?: Yes When asked, does pt state using other controlled substances?: No If prescribed controlled substance>3 days was MAPS reviewed?: Yes If Rx opioid, was Start Talking consent form obtained?: Yes If opioid is for acute pain is fill amount 7 days or less?: No Was information provided regarding opioid addiction?: Yes
== END | disposition home or self-care (01) ==
LOC: PNWHC3 12:16
PROVIDERS: ATTEND Anesthesiology
DX: G89.29 Other chronic pain (principal); M96.1 Postlaminectomy syndrome, not elsewhere classified; M54.16 Radiculopathy, lumbar region; M46.1 Sacroiliitis, not elsewhere classified; M47.812 Spondylosis without myelopathy or radiculopathy, cervical region; M79.18 Myalgia, other site; M17.12 Unilateral primary osteoarthritis, left knee; Z87.891 Personal history of nicotine dependence; Z98.1 Arthrodesis status; Z79.51 Long term (current) use of inhaled steroids; Z79.890 Hormone replacement therapy; Z79.891 Long term (current) use of opiate analgesic; Z79.899 Other long term (current) drug therapy; Z51.81 Encounter for therapeutic drug level monitoring
CPT/HCPCS: 80307; G0482; G0463; 99211

== ENCOUNTER 2019-07-24 16:21 | Observation (INO) | payer MEDICARE, OTHER ==
[2019-07-24] MEDS ORDERED: ASPIRIN 81 MG PO STA (17:19)
--- NOTE | 2019-07-24 17:27 | ED ---
General Adult HPI - General Chief complaint: Chest Pain Stated complaint: chest pain & poss pinched nerve Time Seen by Provider: 07/24/19 16:49 Source: patient Mode of arrival: ambulatory Limitations: no limitations - History of Present Illness Initial comments: Dictation was produced using [employer] dictation software. please excuse any grammatical, word or spelling errors. Chief Complaint: 54-year-old female past medical history dyslipidemia, thyroid disease, COPD presents with chest pain. History of Present Illness: 54-year-old female she presents today with chest pain. She localizes the pain to the left anterior chest pressure that radiates to her left upper extremity. Patient states she's symptoms are intermittent. Denies any cardiac history. No psoas or diaphoresis. She states it does sometimes worsened with exertion. Denies any worsening symptoms with deep inspiration. She does report some shortness of breath. Denies any lower extremity symptoms. The ROS documented in this emergency department record has been reviewed and confirmed by me. Those systems with pertinent positive or negative responses have been documented in the HPI. All other systems are other negative and/or noncontributory. PHYSICAL EXAM: General Impression: Alert and oriented x3, not in acute distress HEENT: Normocephalic atraumatic, extra-ocular movements intact, pupils equal and reactive to light bilaterally, mucous membranes moist. Cardiovascular: Heart regular rate and rhythm, S1&S2 audible, no murmurs, rubs or gallops Chest: Lungs clear to auscultation bilaterally, no rhonchi, no wheeze, no rales Abdomen: Bowel sounds present, abdomen soft, non-tender, non-distended, no organomegaly Musculoskeletal: Pulses present and equal in all extremities, no peripheral edema Motor: no focal deficits noted Neurological: CN II-XII grossly intact, no focal motor or sensory deficits noted Skin: Intact with no visualized rashes Psych: Normal affect and mood ED course: 54-year-old female chief complaint of chest pain. Signs upon arrival are within acceptable limits. EKGs benign. Clinical presentation concerning for acute coronary syndrome. Laboratory evaluation obtained CBC, cardiac panel, d-dimer is negative. His d- dimer 0.50. Metabolic panel shows sodium of 131. Patient given intravenous fluids patient was given aspirin. Cardiac enzymes negative. Chest x-ray is nonacute. Patient will be admitted to observation for serial troponins. Patient reevaluated bedside finally settle medical condition. EKG interpretation: Ventricular rate 91, sinus rhythm,. Interval to 26, QS 88, QTc 457. No NH prolongation, no QTC prolongation, no ST or T-wave changes noted. EKG compared to 09/27/2017 showing no changes. Overall, this EKG is unremarkable - Related Data Home Medications Medication Instructions Recorded Confirmed Albuterol Inhaler [Ventolin Hfa 1 puff INHALATION RT-QID PRN 12/21/13 06/29/19 Inhaler] Ezetimibe [Zetia] 10 mg PO HS 09/05/14 06/29/19 Fluticasone Propionate 1 spray EA NOSTRIL BID 11/25/15 06/29/19 Citalopram Hydrobromide [CeleXA] 40 mg PO QAM 12/10/15 06/29/19 OXcarbazepine [Trileptal] 600 mg PO BID 12/10/15 06/29/19 Levothyroxine Sodium [Synthroid] 50 mcg PO DAILY 03/13/16 06/29/19 Atorvastatin [Lipitor] 10 mg PO HS 07/20/16 06/29/19 Simethicone [Gas-X] 125 mg PO Q8H PRN 10/19/16 06/29/19 Omeprazole 40 mg PO HS 11/13/16 06/29/19 Estradiol [Estrace] 0.5 mg PO DAILY 02/03/17 06/29/19 clonazePAM [KlonoPIN] 0.5 mg PO BID PRN 05/03/17 06/29/19 Cetirizine HCl [Zyrtec] 10 mg PO DAILY 04/19/18 06/29/19 Methylphenidate HCl 20 mg PO TID 09/09/18 06/29/19 Acetaminophen Tab [Tylenol] 325 mg PO Q8H PRN 02/05/19 06/29/19 Albuterol Nebulized [Ventolin 2.5 mg INHALATION RT-Q4H PRN 02/05/19 06/29/19 Nebulized] busPIRone HCL 15 mg PO TID 02/05/19 06/29/19 Breo(Unknown Dose) 1 dose .ROUTE DAILY 06/22/19 06/29/19 Previous Rx's Medication Instructions Recorded Cyclobenzaprine [Flexeril] 10 mg PO BID PRN #60 tab 05/04/19 HYDROcodone/APAP 10-325MG [[place]se[place] 1 tab PO Q8HR PRN 30 Days #90 tab 05/04/19 10-325] Allergies Allergy/AdvReac Type Severity Reaction Status Date / Time Penicillins Allergy Rash/Hives Verified 07/24/19 16:37 Review of Systems ROS Statement: Those systems with pertinent positive or pertinent negative responses have been documented in the HPI. ROS Other: All systems not noted in ROS Statement are negative. Past Medical History Past Medical History: Asthma, COPD, GERD/Reflux, Hyperlipidemia, Musculoskeletal Disorder, Osteoarthritis (OA), Syncope, Thyroid Disorder Additional Past Medical History / Comment(s): kidney stones, hypoglycemia, chronic neck and L shoulder, lower back pain. Hx L facial and L ankle fxs, sinus problems, vertigo, falls in past due to syncope, low BP at times. Fusion of sacrum and iliac crest-per dr. Luke with postop infection. 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 Rectocele repair. Past Anesthesia/Blood Transfusion Reactions: Previous Problems w/ Anesthesia Additional Past Anesthesia/Blood Transfusion Reaction / Comment(s): "Takes longer to wake up from anesthesia." Past Psychological History: ADD/ADHD, Anxiety, Depression Smoking Status: Former smoker Past Alcohol Use History: None Reported Past Drug Use History: None Reported - Past Family History Mother Family Medical History: Cancer, Thyroid Disorder Additional Family Medical History / Comment(s): Mother of LUNG cancer at ag e 64 yrs. Father Family Medical History: Asthma, COPD, Osteoarthritis (OA) Additional Family Medical History / Comment(s): Father at age 80 yrs. General Exam Limitations: no limitations Course Vital Signs 07/24/19 16:37 Temperature 98.4 F Pulse Rate 96 Respiratory 18 Rate Blood Pressure 126/82 O2 Sat by Pulse 96 Oximetry Medical Decision Making - Lab Data Result diagrams: 07/24/19 17:09 07/24/19 17:09 Lab Results 07/24/19 07/24/19 07/24/19 Range/Units 17:09 17:09 17:09 WBC 10.1 (3.8-10.6) k/uL RBC 4.01 (3.80-5.40) m/uL Hgb 10.4 L (11.4-16.0) gm/dL Hct 32.2 L (34.0-46.0) % MCV 80.2 D (80.0-100.0) fL MCH 26.0 (25.0-35.0) pg MCHC 32.4 (31.0-37.0) g/dL RDW 15.0 (11.5-15.5) % Plt Count 292 (150-450) k/uL Neutrophils % 61 % Lymphocytes % 27 % Monocytes % 7 % Eosinophils % 2 % Basophils % 0 % Neutrophils # 6.2 (1.3-7.7) k/uL Lymphocytes # 2.8 (1.0-4.8) k/uL Monocytes # 0.7 (0-1.0) k/uL Eosinophils # 0.2 (0-0.7) k/uL Basophils # 0.0 (0-0.2) k/uL PT 9.4 (9.0-12.0) sec INR 0.9 (<1.2) APTT 24.8 (22.0-30.0) sec D-Dimer 0.50 (<0.60) mg/L FEU Sodium 131 L (137-145) mmol/L Potassium 4.3 (3.5-5.1) mmol/L Chloride 98 (98-107) mmol/L Carbon Dioxide 24 (22-30) mmol/L Anion Gap 9 mmol/L BUN 11 (7-17) mg/dL Creatinine 0.70 (0.52-1.04) mg/dL Est GFR (CKD-EPI)AfAm >90 (>60 ml/min/1.73 sqM) Est GFR (CKD-EPI)NonAf >90 (>60 ml/min/1.73 sqM) Glucose 120 H (74-99) mg/dL Calcium 8.8 (8.4-10.2) mg/dL Magnesium 1.8 (1.6-2.3) mg/dL Total Bilirubin 0.3 (0.2-1.3) mg/dL AST 31 (14-36) U/L ALT 47 (9-52) U/L Alkaline Phosphatase 105 (38-126) U/L Troponin I (0.000-0.034) ng/mL Total Protein 6.8 (6.3-8.2) g/dL Albumin 4.1 (3.5-5.0) g/dL 07/24/19 Range/Units 17:09 WBC (3.8-10.6) k/uL RBC (3.80-5.40) m/uL Hgb (11.4-16.0) gm/dL Hct (34.0-46.0) % MCV (80.0-100.0) fL MCH (25.0-35.0) pg MCHC (31.0-37.0) g/dL RDW (11.5-15.5) % Plt Count (150-450) k/uL Neutrophils % % Lymphocytes % % Monocytes % % Eosinophils % % Basophils % % Neutrophils # (1.3-7.7) k/uL Lymphocytes # (1.0-4.8) k/uL Monocytes # (0-1.0) k/uL Eosinophils # (0-0.7) k/uL Basophils # (0-0.2) k/uL PT (9.0-12.0) sec INR (<1.2) APTT (22.0-30.0) sec D-Dimer (<0.60) mg/L FEU Sodium (137-145) mmol/L Potassium (3.5-5.1) mmol/L Chloride (98-107) mmol/L Carbon Dioxide (22-30) mmol/L Anion Gap mmol/L BUN (7-17) mg/dL Creatinine (0.52-1.04) mg/dL Est GFR (CKD-EPI)AfAm (>60 ml/min/1.73 sqM) Est GFR (CKD-EPI)NonAf (>60 ml/min/1.73 sqM) Glucose (74-99) mg/dL Calcium (8.4-10.2) mg/dL Magnesium (1.6-2.3) mg/dL Total Bilirubin (0.2-1.3) mg/dL AST (14-36) U/L ALT (9-52) U/L Alkaline Phosphatase (38-126) U/L Troponin I <0.012 (0.000-0.034) ng/mL Total Protein (6.3-8.2) g/dL Albumin (3.5-5.0) g/dL Disposition Clinical Impression: Chest pain Disposition: ADMITTED IP TO THIS [facility] Condition: Fair Referrals: Ihsan Ding DO [Primary Care Provider] - 1-2 days Decision Time: 18:33
[2019-07-24 17:54] LABS: Basophils % (A) 0 %; Eosinophils # (A) 0.2 k/uL (0-0.7); Eosinophils % (A) 2 %; HCT 32.2 % (34.0-46.0); HGB 10.4 gm/dL (11.4-16.0); Lymphocytes # (A) 2.8 k/uL (1.0-4.8); Lymphocytes % (A) 27 %; MCHC 32.4 g/dL (31.0-37.0); Mean Platelet Volume 6.8; Monocytes # (A) 0.7 k/uL (0-1.0); Monocytes % (A) 7 %; Neutrophils # (A) 6.2 k/uL (1.3-7.7); Neutrophils % (A) 61 %; Platelet Count 292 k/uL (150-450); RBC 4.01 m/uL (3.80-5.40); WBC 10.1 k/uL (3.8-10.6)
[2019-07-24 18:05] LABS: AST 31 U/L (14-36); African American GFR (CKD) >90 (>60 ml/min/1.73 sqM); Albumin 4.1 g/dL (3.5-5.0); Anion Gap 9 mmol/L; Blood Urea Nitrogen 11 mg/dL (7-17); Calcium 8.8 mg/dL (8.4-10.2); Carbon Dioxide 24 mmol/L (22-30); Chloride 98 mmol/L (98-107); Glucose 120 mg/dL (74-99); Non-African American GFR(CKD) >90 (>60 ml/min/1.73 sqM); Potassium 4.3 mmol/L (3.5-5.1); Sodium 131 mmol/L (137-145); Total Bilirubin 0.3 mg/dL (0.2-1.3); Total Protein 6.8 g/dL (6.3-8.2)
[2019-07-24 18:06] LABS: ALT 47 U/L (9-52); Alkaline Phosphatase 105 U/L (38-126); Magnesium 1.8 mg/dL (1.6-2.3)
[2019-07-24 18:09] LABS: MCV 80.2 fL (80.0-100.0)
--- NOTE | 2019-07-24 18:11 | XR ---
EXAMINATION TYPE: XR chest 2V DATE OF EXAM: 07/24/2019 COMPARISON: NONE HISTORY: Chest pain and dizziness TECHNIQUE: Frontal and lateral views of the chest are obtained. FINDINGS: Slight eventration of the right hemidiaphragm. There is no focal air space opacity, pleura l effusion, or pneumothorax seen. The cardiac silhouette size is within normal limits. The osseous structures are intact. Postsurgical change of the cervical spine is partially visualized. Mild multi level degenerative change of the thoracic spine. IMPRESSION: No acute cardiopulmonary process.
[2019-07-24 18:12] LABS: D-Dimer 0.5 mg/L FEU (<0.60); INR 0.9 (<1.2); Partial Thromboplastin Time 24.8 sec (22.0-30.0); Prothrombin Time 9.4 sec (9.0-12.0)
[2019-07-24] MEDS ORDERED: PANTOPRAZOLE 40 MG TABLET PO STA (18:28)
[2019-07-24] MEDS ORDERED: NITROGLYCERIN SL TABS 0.4 MG TAB SUBLINGUAL PRN (18:28)
[2019-07-24] MEDS ORDERED: ALBUTEROL NEBULIZED 2.5 MG/3 ML INHALATION PRN (20:32)
[2019-07-24] MEDS ORDERED: SIMETHICONE 80 MG CHEWABLE PO PRN (20:32)
[2019-07-24] MEDS ORDERED: clonazePAM 0.5 MG TAB PO PRN (20:32)
[2019-07-24] MEDS ORDERED: CYCLOBENZAPRINE 10 MG TAB PO PRN (20:32)
[2019-07-24] MEDS: busPIRone HCl 5 MG TAB PO SCH (20:56)
[2019-07-24] MEDS: FLUTICASONE 50MCG/SPRAY NASAL 16GM EA NOSTRIL SCH (20:56)
[2019-07-24] MEDS: HYDROcodone/APAP 10-325MG 1 EACH TAB PO PRN (20:57)
[2019-07-24] MEDS: OXcarbazepine 300 MG TAB PO SCH (20:57)
[2019-07-24] MEDS ORDERED: ATORVASTATIN 10 MG TAB PO SCH (21:00)
[2019-07-24] MEDS ORDERED: PANTOPRAZOLE 40 MG TABLET PO SCH (21:00)
[2019-07-24] MEDS ORDERED: EZETIMIBE 10 MG TAB PO SCH (21:00)
[2019-07-24] MEDS ORDERED: MONTELUKAST 10 MG TAB PO SCH (21:00)
[2019-07-25 05:26] LABS: Cholesterol 169 mg/dL (<200); HDL Cholesterol 50 mg/dL (40-60); LDL Cholesterol,Calculated 101 mg/dL (0-99); Triglycerides 89 mg/dL (<150)
[2019-07-25] MEDS ORDERED: LEVOTHYROXINE 50 MCG TAB PO SCH (06:30)
[2019-07-25 07:18] VITALS: RESP 18
[2019-07-25] MEDS ORDERED: METHYLPHENIDATE HCL 10 MG TAB PO SCH (07:30)
[2019-07-25] MEDS ORDERED: SYMBICORT 80-4.5 MCG INHALER INHALATION SCH (08:00)
[2019-07-25] MEDS ORDERED: CITALOPRAM HYDROBROMIDE 20 MG TAB PO SCH (09:00)
[2019-07-25] MEDS ORDERED: ASPIRIN 81 MG PO SCH (09:00)
[2019-07-25] MEDS ORDERED: ASPIRIN 325 MG TAB PO SCH (09:00)
[2019-07-25] MEDS ORDERED: LORATADINE 10 MG TAB PO SCH (09:00)
[2019-07-25] MEDS ORDERED: DOBUTamine DRIP for NUC MED 500 MG in DEXTROSE/WATER 1 250ML.BAG IV ONE (10:00)
[2019-07-25] MEDS: FLUTICASONE 50MCG/SPRAY NASAL 16GM EA NOSTRIL SCH (10:42)
[2019-07-25] MEDS: busPIRone HCl 5 MG TAB PO SCH (10:42)
[2019-07-25] MEDS: OXcarbazepine 300 MG TAB PO SCH (10:44)
[2019-07-25] MEDS: HYDROcodone/APAP 10-325MG 1 EACH TAB PO PRN (10:49)
[2019-07-25 11:28] VITALS: BP 113/72; PULSE 62; TEMP 97.9
[2019-07-25] MEDS ORDERED: ATROPINE SULFATE 0.1 MG/ML 10ML SYRINGE ONE (11:50)
--- NOTE | 2019-07-25 11:59 | ECHOF ---
Referral Reason:cp, sob, dizzy MEASUREMENTS -------- HEIGHT: 157.5 cm WEIGHT: 86.2 kg BP: 121/64 RVIDd: 3.6 cm (< 3.3) IVSd: 1.4 cm (0.6 - 1.1) LVIDd: 4.8 cm (3.9 - 5.3) LVPWd: 1.3 cm (0.6 - 1.1) IVSs: 1.9 cm LVIDs: 3.1 cm LVPWs: 1.8 cm LAESV Index (A-L): 40.57 ml/m Ao Diam: 3.1 cm (2.0 - 3.7) AV Cusp: 1.8 cm (1.5 - 2.6) LA Diam: 3.9 cm (2.7 - 3.8) MV EXCURSION: 12.559 mm (> 18.000) MV EF SLOPE: 39 mm/s (70 - 150) EPSS: 0.2 cm MV E Jared: 1.29 m/s MV DecT: 154 ms MV A Jared: 0.71 m/s MV E/A Ratio: 1.81 RAP: 5.00 mmHg RVSP: 21.12 mmHg FINDINGS -------- Sinus rhythm. This was a technically adequate study. The left ventricular size is normal. There is moderate concentric left ventricular hypertrophy. T here is normal global left ventricular contractility. Overall left ventricular systolic function is normal with, an EF between 55 - 60 %. Increased Lap Grade II Diastolic Dysfunction. The right ventricle is mildly enlarged. LA is moderately dilated 34-39 ml/m2 The right atrial size is normal. Interatrial and interventricular septum intact. There is mild aortic valve sclerosis. There is no evidence of aortic regurgitation. There is no e vidence of aortic stenosis. [id number] mitral regurgitation is present. Mild tricuspid regurgitation present. There is no evidence of pulmonary hypertension. The right v entricular systolic pressure, as measured by Doppler, is 21.12mmHg. The aortic root size is normal. Normal inferior vena cava with normal inspiratory collapse consistent with estimated right atrial pre ssure of 5 mmHg. There is no pericardial effusion. CONCLUSIONS -------- 1. Sinus rhythm. 2. This was a technically adequate study. 3. The left ventricular size is normal. 4. There is moderate concentric left ventricular hypertrophy. 5. There is normal global left ventricular contractility. 6. Overall left ventricular systolic function is normal with, an EF between 55 - 60 %. 7. Increased Lap Grade II Diastolic Dysfunction. 8. The right ventricle is mildly enlarged. 9. LA is moderately dilated 34-39 ml/m2 10. The right atrial size is normal. 11. Interatrial and interventricular septum intact. 12. There is mild aortic valve sclerosis. 13. There is no evidence of aortic regurgitation. 14. There is no evidence of aortic stenosis. 15. [id number] mitral regurgitation is present. 16. Mild tricuspid regurgitation present. 17. There is no evidence of pulmonary hypertension. 18. The right ventricular systolic pressure, as measured by Doppler, is 21.12mmHg. 19. The aortic root size is normal. 20. Normal inferior vena cava with normal inspiratory collapse consistent with estimated right atrial pressure of 5 mmHg. 21. There is no pericardial effusion. HEEL SEAT FITTER: Honey Garcia RDCS
--- NOTE | 2019-07-25 12:00 | P.CRDCN ---
History of Present Illness History of present illness: HISTORY OF PRESENTING ILLNESS This is a pleasant 54-year-old female past medical history significant for COPD, dyslipidemia and chronic neck and back pain. She presented with chest pain. She does not follow in the office with her neurologist for any reason. We have been asked to see him in consultation for chest pain. She states for the previous one week she has been experiencing a discomfort in the left shoulder with radiation at times down the left arm and into the left precordial region. She has chronic neck and back pain and cannot tolerate the discomfort is coming from her neck. It is worse when she gets up and moves around, does dishes or does any lifting. It is mildly reproducible when she lifts her left arm but not reproducible on palpation. She denies associated shortness of breath, dizziness, nausea, vomiting, diaphoresis or palpitations. DIAGNOSTICS EKG reveals sinus mechanism with nonspecific ST changes. Chest xray negative for an acute cardiopulmonary process. Laboratory reviewed, WBC 10.1, hemoglobin 10.4, platelets 294, d-dimer 0.5, sodium 131, potassium 4.3, creatinine 0.7, cardiac enzymes negative x3, LDL 101. Current cardiac medications include atorvastatin 10 mg daily and zetia 10 mg daily. REVIEW OF SYSTEMS At the time of my exam: CONSTITUTIONAL: Denies fever or chills. CARDIOVASCULAR: Denies chest pain, shortness of breath, orthopnea, PND or palpitations. RESPIRATORY: Denies cough. GASTROINTESTINAL: Denies abdominal pain, diarrhea, constipation, nausea or vomiting. MUSCULOSKELETAL: Denies myalgias. NEUROLOGIC: Denies numbness, tingling or weakness. ENDOCRINE: Denies fatigue, weight change, polydipsia or polyurina. GENITOURINARY: Denies burning, hematuria or urgency with micturation. HEMATOLOGIC: Denies history of anemia or bleeding. PHYSICAL EXAMINATION Blood pressure 113/72 heart rate 62 afebrile and maintaining oxygen saturation on room air. CONSTITUTIONAL: No apparent distress. HEENT: Head is normocephalic. Pupils are equal, round. Sclerae anicteric. Mucous membranes of the mouth are moist. No JVD. No carotid bruit. CHEST EXAMINATION: Lungs are clear to auscultation. No chest wall tenderness is noted on palpation or with deep breathing. HEART EXAMINATION: Regular rate and rhythm. S1, S2 heard. No murmurs, gallops or rub. ABDOMEN: Soft, nontender. Positive bowel sounds. EXTREMITIES: 2+ peripheral pulses, no lower extremity edema and no calf tenderness. NEUROLOGIC EXAMINATION: Patient is awake, alert and oriented x3. ASSESSMENT Chest pain, atypical. An acute coronary event has been ruled out. Some musculoskeletal features. Dyslipidemia Former nicotine dependence Obesity, BMI 34 COPD PLAN An acute coronary event has been ruled out. Obtain 2-D echocardiogram and Doppler study to assess cardiac structure and function. Perform dobutamine stress echocardiogram to assess for stress-induced ischemia. Increase atorvastatin to 20 mg daily for optimal LDL less than 100. If stress test is normal she is stable from a cardiac perspective. Thank you kindly for this consultation. Nurse Practitioner note has been reviewed, I agree with a documented findings and plan of care. Patient was seen and examined. Past Medical History Past Medical History: Asthma, COPD, GERD/Reflux, Hyperlipidemia, Musculoskeletal Disorder, Osteoarthritis (OA), Syncope, Thyroid Disorder Additional Past Medical History / Comment(s): kidney stones, hypoglycemia, chronic neck and L shoulder, lower back pain. Hx L facial and L ankle fxs, sinus problems, vertigo, falls in past due to syncope, low BP at times. Fusion of sacrum and iliac crest-per dr. Luke with postop infection. 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 Rectocele repair. Barrets esophagus Past Anesthesia/Blood Transfusion Reactions: Previous Problems w/ Anesthesia Additional Past Anesthesia/Blood Transfusion Reaction / Comment(s): "Takes longer to wake up from anesthesia." Smoking Status: Former smoker - Past Family History Mother Family Medical History: Cancer, Thyroid Disorder Additional Family Medical History / Comment(s): Mother of LUNG cancer at age 64 yrs. Father Family Medical History: Asthma, COPD, Osteoarthritis (OA) Additional Family Medical History / Comment(s): Father at age 80 yrs. Medications and Allergies Home Medications Medication Instructions Recorded Confirmed Type Albuterol Inhaler [Ventolin Hfa 2 puff INHALATION RT-QID PRN 12/21/13 07/24/19 History Inhaler] Ezetimibe [Zetia] 10 mg PO HS 09/05/14 07/24/19 History Fluticasone Propionate 1 spray EA NOSTRIL BID 11/25/15 07/24/19 History Citalopram Hydrobromide [CeleXA] 40 mg PO QAM 12/10/15 07/24/19 History OXcarbazepine [Trileptal] 600 mg PO BID 12/10/15 07/24/19 History Levothyroxine Sodium [Synthroid] 50 mcg PO DAILY 03/13/16 07/24/19 History Atorvastatin [Lipitor] 10 mg PO HS 07/20/16 07/24/19 History Simethicone [Gas-X] 125 mg PO Q8H PRN 10/19/16 07/24/19 History Omeprazole 40 mg PO HS 11/13/16 07/24/19 History clonazePAM [KlonoPIN] 0.5 mg PO BID PRN 05/03/17 07/24/19 History Methylphenidate HCl 20 mg PO TID 09/09/18 07/24/19 History busPIRone HCL 15 mg PO BID 02/05/19 07/24/19 History Cyclobenzaprine [Flexeril] 10 mg PO BID PRN #60 tab 05/04/19 07/24/19 Rx HYDROcodone/APAP 10-325MG [[place] 1 tab PO Q8HR PRN 30 Days #90 tab 05/04/19 07/24/19 Rx 10-325] Fluticasone/Vilanterol [Breo 1 puff INHALATION Q24HR 07/24/19 07/24/19 History Ellipta 100-25 Mcg Inhaler] Loratadine 10 mg PO DAILY 07/24/19 07/24/19 History Montelukast Sodium [Singulair] 10 mg PO HS 07/24/19 07/24/19 History Allergies Allergy/AdvReac Type Severity Reaction Status Date / Time Penicillins Allergy Rash/Hives Verified 07/24/19 19:59 Physical Exam Vitals: Vital Signs Temp Pulse Pulse Resp BP BP BP 07/25/19 11:27 97.9 F 62 18 113/72 07/25/19 07:17 98.2 F 70 18 121/64 07/25/19 07:16 07/25/19 04:00 97.9 F 64 17 103/58 07/25/19 03:42 18 07/24/19 23:04 98.1 F 85 17 119/72 07/24/19 22:59 18 07/24/19 20:00 17 07/24/19 19:33 97.7 F 84 17 152/83 07/24/19 18:53 80 18 136/102 07/24/19 18:30 75 14 128/74 07/24/19 18:00 88 19 115/59 07/24/19 17:30 86 16 130/72 07/24/19 17:00 92 17 125/83 07/24/19 16:49 07/24/19 16:37 98.4 F 96 18 126/82 Pulse Ox 07/25/19 11:27 95 07/25/19 07:17 97 07/25/19 07:16 93 L 07/25/19 04:00 93 L 07/25/19 03:42 07/24/19 23:04 94 L 07/24/19 22:59 07/24/19 20:00 07/24/19 19:33 93 L 07/24/19 18:53 98 07/24/19 18:30 97 07/24/19 18:00 97 07/24/19 17:30 98 07/24/19 17:00 97 07/24/19 16:49 97 07/24/19 16:37 96 Intake and Output 07/24/19 07/25/19 07/25/19 22:59 06:59 14:59 Other: Voiding Method Toilet # Voids 1 1 Weight 86.183 kg Results 07/24/19 17:09 07/24/19 17:09 Cardiac Enzymes 07/24/19 07/24/19 07/24/19 Range/Units 17:09 17:09 23:12 AST 31 (14-36) U/L Troponin I <0.012 <0.012 (0.000-0.034) ng/mL 07/25/19 Range/Units 04:54 AST (14-36) U/L Troponin I <0.012 (0.000-0.034) ng/mL Coagulation 07/24/19 Range/Units 17:09 PT 9.4 (9.0-12.0) sec APTT 24.8 (22.0-30.0) sec Lipids 07/25/19 Range/Units 04:57 Triglycerides 89 (<150) mg/dL Cholesterol 169 (<200) mg/dL HDL Cholesterol 50 (40-60) mg/dL CBC 07/24/19 Range/Units 17:09 WBC 10.1 (3.8-10.6) k/uL RBC 4.01 (3.80-5.40) m/uL Hgb 10.4 L (11.4-16.0) gm/dL Hct 32.2 L (34.0-46.0) % Plt Count 292 (150-450) k/uL Comprehensive Metabolic Panel 07/24/19 Range/Units 17:09 Sodium 131 L (137-145) mmol/L Potassium 4.3 (3.5-5.1) mmol/L Chloride 98 (98-107) mmol/L Carbon Dioxide 24 (22-30) mmol/L BUN 11 (7-17) mg/dL Creatinine 0.70 (0.52-1.04) mg/dL Glucose 120 H (74-99) mg/dL Calcium 8.8 (8.4-10.2) mg/dL AST 31 (14-36) U/L ALT 47 (9-52) U/L Alkaline Phosphatase 105 (38-126) U/L Total Protein 6.8 (6.3-8.2) g/dL Albumin 4.1 (3.5-5.0) g/dL Current Medications Generic Name Dose Route Start Last Admin Trade Name Freq PRN Reason Stop Dose Admin Hydrocodone Bitart/Acetaminophen 1 each 07/24/19 18:30 07/25/19 10:49 [place] 10 PO 1 each Q8HR PRN Administration Pain Albuterol Sulfate 2.5 mg 07/24/19 20:32 Ventolin Nebulized INHALATION RT-QID PRN Shortness Of Breath Aspirin 81 mg 07/25/19 09:00 07/25/19 10:43 Aspirin PO 81 mg DAILY ANN Administration Atorvastatin Calcium 20 mg 07/25/19 21:00 Lipitor PO HS [facility] Budesonide/Formoterol Fumarate 2 puff 07/25/19 08:00 07/25/19 07:14 Symbicort 80-4.5 Mcg Inhaler INHALATION 2 puff RT-BID ANN Administration Buspirone HCl 15 mg 07/24/19 21:00 07/25/19 10:42 Buspar PO 15 mg BID ANN Administration Citalopram Hydrobromide 40 mg 07/25/19 09:00 07/25/19 10:43 Celexa PO 40 mg QAM ANN Administration Clonazepam 0.5 mg 07/24/19 20:32 07/24/19 20:57 Klonopin PO 0.5 mg BID PRN Administration Anxiety Cyclobenzaprine HCl 10 mg 07/24/19 20:32 07/24/19 20:57 Flexeril PO 10 mg BID PRN Administration Muscle Spasm Ezetimibe 10 mg 07/24/19 21:00 07/24/19 20:56 Zetia PO 10 mg HS ANN Administration Fluticasone Propionate 1 spray 07/24/19 21:00 07/25/19 10:42 Flonase Nasal [place] EA NOSTRIL 1 spray BID ANN Administration Dobutamine HCl/Dextrose 500 mg 250 mls @ 25.855 mls/hr 07/25/19 10:00 / IV Solution IV 07/25/19 19:40 .[id number] ONE Protocol 10 MCG/KG/MIN Levothyroxine Sodium 50 mcg 07/25/19 06:30 07/25/19 06:00 Synthroid PO 50 mcg DAILY@0630 ANN Administration Loratadine 10 mg 07/25/19 09:00 07/25/19 10:43 Claritin PO 10 mg DAILY ANN Administration Methylphenidate HCl 20 mg 07/25/19 07:30 07/25/19 10:43 Ritalin PO 20 mg AC-TID ANN Administration Montelukast Sodium 10 mg 07/24/19 21:00 07/24/19 20:57 Singulair PO 10 mg HS ANN Administration Nitroglycerin 0.4 mg 07/24/19 18:28 Nitrostat SUBLINGUAL Q5M PRN Chest Pain Oxcarbazepine 600 mg 07/24/19 21:00 07/25/19 10:44 Trileptal PO 600 mg BID ANN Administration Pantoprazole Sodium 40 mg 07/24/19 21:00 07/24/19 21:34 Protonix PO Not Given HS ANN Simethicone 120 mg 07/24/19 20:32 07/24/19 21:40 Mylicon Chew PO 120 mg Q8H PRN Administration abdominal cramping Intake and Output 07/24/19 07/25/19 07/25/19 22:59 06:59 14:59 Other: Voiding Method Toilet # Voids 1 1 Weight 86.183 kg 07/24/19 17:09 07/24/19 17:09
--- NOTE | 2019-07-25 12:47 | ECHOS ---
STRESS ECHOCARDIOGRAM INDICATIONS: Chest pain. BASELINE HEART RATE: 65 BASELINE BLOOD PRESSURE: 110/63 MAXIMUM HEART RATE: 156 MAXIMUM BLOOD PRESSURE: 127/51 85% MPHR: 140 100% MPHR: 165 MAXIMUM STAGE REACHED: 4 TOTAL EXERCISE TIME: 13:17 CLINICAL INFORMATION: Baseline EKG shows sinus rhythm, normal axis, normal intervals. Patient was given intravenous dobutamine over a period of 30 minutes as per protocol. Also received atropine, attained 95% of predicted maximal heart rate without chest pain or diagnostic ST-segment depression. Baseline echo shows normal left ventricular size wall motion or systolic function. Post dobutamine infusion, there is normal hyperdynamic response of all segments of myocardium noted. CONCLUSION: 1. Negative stress test by EKG criteria. 2. Negative dobutamine echo. MMODL / IJN: [id number] /
--- NOTE | 2019-07-25 15:07 | P.HPIM ---
History of Present Illness H&P Date: 07/25/19 This is a 54-year-old female with history of degenerative disc disease, chronic neck/back pain, COPD, gastroesophageal reflux disease and multiple other medical issues, presented to the ER with left neck discomfort radiating to left shoulder , down left arm, left chest, worsened by exertion and lifting. Denies lightheadedness dizziness or focal deficits. Denies palpitations, shortness of breath. Denies nausea vomiting or diarrhea. Denies abdominal pain. EKG reported sinus with first-degree AV block, nonspecific ST-T changes. Chest x- ray reported nonacute. Cardiac enzymes negative 3, LDL 101. D-dimer 0.5.Hemoglobin 10.4 afebrile, WBC 10.1. Sodium 131, potassium 4.3, creatinine 0.7. Cardiology consulted. Echo pending. Review of Systems ROS Statement: Those systems with pertinent positive or pertinent negative responses have been documented in the HPI. ROS Other: All systems not noted in ROS Statement are negative. Past Medical History Past Medical History: Asthma, COPD, GERD/Reflux, Hyperlipidemia, Musculoskeletal Disorder, Osteoarthritis (OA), Syncope, Thyroid Disorder Additional Past Medical History / Comment(s): kidney stones, hypoglycemia, chronic neck and L shoulder, lower back pain. Hx L facial and L ankle fxs, sinus problems, vertigo, falls in past due to syncope, low BP at times. Fusion of sacrum and iliac crest-per dr. Luke with postop infection. 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 Rectocele repair. Barrets esophagus Past Anesthesia/Blood Transfusion Reactions: Previous Problems w/ Anesthesia Additional Past Anesthesia/Blood Transfusion Reaction / Comment(s): "Takes longer to wake up from anesthesia." Smoking Status: Former smoker - Past Family History Mother Family Medical History: Cancer, Thyroid Disorder Additional Family Medical History / Comment(s): Mother of LUNG cancer at age 64 yrs. Father Family Medical History: Asthma, COPD, Osteoarthritis (OA) Additional Family Medical History / Comment(s): Father at age 80 yrs. Medications and Allergies Home Medications Medication Instructions Recorded Confirmed Type Albuterol Inhaler [Ventolin Hfa 2 puff INHALATION RT-QID PRN 12/21/13 07/24/19 History Inhaler] Ezetimibe [Zetia] 10 mg PO HS 09/05/14 07/24/19 History Fluticasone Propionate 1 spray EA NOSTRIL BID 11/25/15 07/24/19 History Citalopram Hydrobromide [CeleXA] 40 mg PO QAM 12/10/15 07/24/19 History OXcarbazepine [Trileptal] 600 mg PO BID 12/10/15 07/24/19 History Levothyroxine Sodium [Synthroid] 50 mcg PO DAILY 03/13/16 07/24/19 History Simethicone [Gas-X] 125 mg PO Q8H PRN 10/19/16 07/24/19 History Omeprazole 40 mg PO HS 11/13/16 07/24/19 History clonazePAM [KlonoPIN] 0.5 mg PO BID PRN 05/03/17 07/24/19 History Methylphenidate HCl 20 mg PO TID 09/09/18 07/24/19 History busPIRone HCL 15 mg PO BID 02/05/19 07/24/19 History Cyclobenzaprine [Flexeril] 10 mg PO BID PRN #60 tab 05/04/19 07/24/19 Rx HYDROcodone/APAP 10-325MG [[place] 1 tab PO Q8HR PRN 30 Days #90 tab 05/04/19 07/24/19 Rx 10-325] Fluticasone/Vilanterol [Breo 1 puff INHALATION Q24HR 07/24/19 07/24/19 History Ellipta 100-25 Mcg Inhaler] Loratadine 10 mg PO DAILY 07/24/19 07/24/19 History Montelukast Sodium [Singulair] 10 mg PO HS 07/24/19 07/24/19 History Atorvastatin [Lipitor] 20 mg PO HS #30 tab 07/25/19 Rx Allergies Allergy/AdvReac Type Severity Reaction Status Date / Time Penicillins Allergy Rash/Hives Verified 07/24/19 19:59 Physical Exam Vitals: Vital Signs Temp Pulse Pulse Resp BP BP BP 07/25/19 11:27 97.9 F 62 18 113/72 07/25/19 07:17 98.2 F 70 18 121/64 07/25/19 07:16 07/25/19 04:00 97.9 F 64 17 103/58 07/25/19 03:42 18 07/24/19 23:04 98.1 F 85 17 119/72 07/24/19 22:59 18 07/24/19 20:00 17 07/24/19 19:33 97.7 F 84 17 152/83 07/24/19 18:53 80 18 136/102 07/24/19 18:30 75 14 128/74 07/24/19 18:00 88 19 115/59 07/24/19 17:30 86 16 130/72 07/24/19 17:00 92 17 125/83 07/24/19 16:49 07/24/19 16:37 98.4 F 96 18 126/82 Pulse Ox 07/25/19 11:27 95 07/25/19 07:17 97 07/25/19 07:16 93 L 07/25/19 04:00 93 L 07/25/19 03:42 07/24/19 23:04 94 L 07/24/19 22:59 07/24/19 20:00 07/24/19 19:33 93 L 07/24/19 18:53 98 07/24/19 18:30 97 07/24/19 18:00 97 07/24/19 17:30 98 07/24/19 17:00 97 07/24/19 16:49 97 07/24/19 16:37 96 Intake and Output 07/24/19 07/25/19 07/25/19 22:59 06:59 14:59 Intake Total 420 Balance 420 Intake: Oral 420 Other: Voiding Method Toilet # Voids 1 1 Weight 86.183 kg PHYSICAL EXAM: VITAL SIGNS: As above GENERAL: Sitting up in bed, no acute distress HEENT: Conjunctivae normal. eyes normal. NECK: No JVD. No thyroid enlargement. No LNs CARDIOVASCULAR: S1, S2 regular.. No murmur RESPIRATION: Breath sounds diminished in the bases. No rhonchi or crackles. No bronchial breathing. ABDOMEN: Soft, nontender . No guarding. no masses palpable. No ascites, No hepatosplenomegaly.Bowel sounds heard. LEGS: No edema. no swelling PSYCHIATRY: Alert and oriented X3, mood and affect normal. NERVOUS SYSTEM: Cranial N 2-12 grossly normal. Moves all 4 limbs. Diffuse weakness No focal deficits. Strength and sensation grossly intact.. Skin: no lesions, no rash Lymphatic system. No LN neck axilla or groin. Results CBC & Chem 7: 07/24/19 17:09 07/24/19 17:09 Labs: Abnormal Lab Results - Last 24 Hours (Table) 07/24/19 07/24/19 07/25/19 Range/Units 17: 17: 04:57 Hgb 10.4 L (11.4-16.0) gm/dL Hct 32.2 L (34.0-46.0) % Sodium 131 L (137-145) mmol/L Glucose 120 H (74-99) mg/dL LDL Cholesterol, Calc 101 H (0-99) mg/dL Thrombosis Risk Factor Assmnt - Choose All That Apply Each Factor Represents 1 point: Age 41-60 years Thrombosis Risk Factor Assessment Total Risk Factor Score: 1 Thrombosis Risk Factor Assessment Level: Low Risk Assessment and Plan Assessment: Chest pain atypical, acute coronary event ruled out as per cardiology, suspect muscloskeletal Chronic intermittent asthma COPD, stable Gastroesophageal reflux disease osteoarthritis Degenerative disc disease History of back surgery Arnold Chiari-repair of brain stem herniation Hyperlipidemia Hypothyroidism History of vertigo Anxiety Depression ADD Former nicotine dependence Obesity, BMI 34.8 Plan: Continue on current medication regime ,monitoring and symptomatic treatment. Evaluated by cardiology, scheduled for stress test. Echo pending. Home meds have been reviewed and resumed accordingly. Discharge planning in progress for today pending stress test results/cardiology clearance. GI and DVT prophylaxis in place. The impression and plan of care has been dictated as directed. : I performed a history and examination of this patient, discussed the same with the dictator. I agree with the dictator's note ,documented as a scribe. Any additional findings or plans will be noted.
--- NOTE | 2019-07-25 15:14 | P.DS ---
Providers Date of admission: 07/24/19 18:28 Expected date of discharge: 07/25/19 Attending physician: Ihsan Ding Consults: 07/24/19 18:28 Consult Physician Urgent Consulting Provider: Dakota Marley Consult Reason/Comments: chest pain Do you want consulting provider notified?: Yes Primary care physician: Ihsan Ding [facility] Course: Final Diagnoses: Chest pain atypical, acute coronary event ruled out as per cardiology, suspect muscloskeletal in a patient with history of significant degenerative C-spine Chronic intermittent asthma COPD, stable Gastroesophageal reflux disease osteoarthritis Degenerative disc disease History of back surgery Arnold Chiari-repair of brain stem herniation Hyperlipidemia Hypothyroidism History of vertigo Anxiety Depression ADD Former nicotine dependence Obesity, BMI 34.8 [id number] mitral regurgitation Hospital course:This is a 54-year-old female with history of degenerative disc disease, chronic neck/back pain, COPD, gastroesophageal reflux disease and multiple other medical issues, presented to the ER with left neck discomfort radiating to left shoulder , down left arm, left chest, worsened by exertion and lifting. Denies lightheadedness dizziness or focal deficits. Denies palpitations, shortness of breath. Denies nausea vomiting or diarrhea. Denies abdominal pain. EKG reported sinus with first-degree AV block, nonspecific ST-T changes. Chest x-ray reported nonacute. Cardiac enzymes negative 3, LDL 101. D-dimer 0.5.Hemoglobin 10.4 afebrile, WBC 10.1. Sodium 131, potassium 4.3, creatinine 0.7. Cardiology consulted. Echo pending. Evaluated by cardiology, underwent dobutamine stress echo. Echo reporting normal LV function, EF between 55 and 60%, increased lap grade II diastolic dysfunction, [id number] mitral regurgitation. Dobutamine stress reporting negative stress test by EKG criteria, negative dobutamine echo. Statin dose increased. Significant clinical improvement. Cleared by cardiology for discharge. Patient is being discharged home in a stable condition with guarded prognosis. EXAM: GENERAL: Alert and oriented 3, no acute distress CARDIOVASCULAR: S1, S2 regular.No murmur RESPIRATION: Breath sounds diminished in the bases. No rhonchi or crackles. No wheezing. ABDOMEN: Soft, nontender . No guarding. no masses palpable. Positive Bowel sounds. NERVOUS SYSTEM: No focal deficits. The impression and plan of care has been dictated as directed. : I performed a history and examination of this patient, discussed the same with the dictator. I agree with the dictator's note ,documented as a scribe. Any additional findings or plans will be noted. Patient Condition at Discharge: Stable Plan - Discharge Summary New Discharge Prescriptions: New Atorvastatin [Lipitor] 20 mg PO HS #30 tab Continue Albuterol Inhaler [Ventolin Hfa Inhaler] 2 puff INHALATION RT-QID PRN PRN Reason: Shortness Of Breath Ezetimibe [Zetia] 10 mg PO HS Fluticasone Propionate 1 spray EA NOSTRIL BID Citalopram Hydrobromide [CeleXA] 40 mg PO QAM OXcarbazepine [Trileptal] 600 mg PO BID Levothyroxine Sodium [Synthroid] 50 mcg PO DAILY Simethicone [Gas-X] 125 mg PO Q8H PRN PRN Reason: abdominal cramping Omeprazole 40 mg PO HS clonazePAM [KlonoPIN] 0.5 mg PO BID PRN PRN Reason: Anxiety Methylphenidate HCl 20 mg PO TID busPIRone HCL 15 mg PO BID HYDROcodone/APAP 10-325MG [[place] 10-325] 1 tab PO Q8HR PRN 30 Days #90 tab PRN Reason: Pain Cyclobenzaprine [Flexeril] 10 mg PO BID PRN #60 tab PRN Reason: Muscle Spasm Loratadine 10 mg PO DAILY Montelukast Sodium [Singulair] 10 mg PO HS Fluticasone/Vilanterol [Breo Ellipta 100-25 Mcg Inhaler] 1 puff INHALATION Q24HR Discontinued Atorvastatin [Lipitor] 10 mg PO HS Discharge Medication List Albuterol Inhaler [Ventolin Hfa Inhaler] 2 puff INHALATION RT-QID PRN 12/21/13 [History] Ezetimibe [Zetia] 10 mg PO HS 09/05/14 [History] Fluticasone Propionate 1 spray EA NOSTRIL BID 11/25/15 [History] Citalopram Hydrobromide [CeleXA] 40 mg PO QAM 12/10/15 [History] OXcarbazepine [Trileptal] 600 mg PO BID 12/10/15 [History] Levothyroxine Sodium [Synthroid] 50 mcg PO DAILY 07/22/16 [History] Simethicone [Gas-X] 125 mg PO Q8H PRN 10/19/16 [History] Omeprazole 40 mg PO HS 11/13/16 [History] clonazePAM [KlonoPIN] 0.5 mg PO BID PRN 05/03/17 [History] Methylphenidate HCl 20 mg PO TID 09/09/18 [History] busPIRone HCL 15 mg PO BID 02/05/19 [History] Cyclobenzaprine [Flexeril] 10 mg PO BID PRN #60 tab 05/04/19 [Rx] HYDROcodone/APAP 10-325MG [[place] 10-325] 1 tab PO Q8HR PRN 30 Days #90 tab 05/04/19 [Rx] Fluticasone/Vilanterol [Breo Ellipta 100-25 Mcg Inhaler] 1 puff INHALATION Q24HR 07/24/19 [History] Loratadine 10 mg PO DAILY 07/24/19 [History] Montelukast Sodium [Singulair] 10 mg PO HS 07/24/19 [History] Atorvastatin [Lipitor] 20 mg PO HS #30 tab 07/25/19 [Rx] Follow up Appointment(s)/Referral(s): Ihsan Ding DO [Primary Care Provider] - 1-2 days Dakota Marley MD [STAFF PHYSICIAN] - 1 Week Patient Instructions/Handouts: Chest Pain (DC) Discharge Disposition: HOME SELF-CARE
[2019-07-25] MEDS ORDERED: ATORVASTATIN 20 MG TAB PO SCH (21:00)
== END 2019-07-25 14:41 | disposition home or self-care (01) ==
LOC: EC 16:21 → 1SOBS 18:28 → UNDODISOB 07-25 14:10
PROVIDERS: ADMIT Family Medicine; ATTEND Family Medicine
DX: R07.89 Other chest pain (principal); E03.9 Hypothyroidism, unspecified; E66.9 Obesity, unspecified; E78.5 Hyperlipidemia, unspecified; F32.9 Major depressive disorder, single episode, unspecified; F41.9 Anxiety disorder, unspecified; G89.29 Other chronic pain; I34.0 Nonrheumatic mitral (valve) insufficiency; I44.0 Atrioventricular block, first degree; J44.9 Chronic obstructive pulmonary disease, unspecified; J45.20 Mild intermittent asthma, uncomplicated; K21.9 Gastro-esophageal reflux disease without esophagitis; M19.90 Unspecified osteoarthritis, unspecified site; Z68.34 Body mass index [BMI] 34.0-34.9, adult; Z79.890 Hormone replacement therapy; Z79.899 Other long term (current) drug therapy; Z80.1 Family history of malignant neoplasm of trachea, bronchus and lung; Z82.5 Family history of asthma and other chronic lower respiratory diseases; Z87.442 Personal history of urinary calculi; Z87.891 Personal history of nicotine dependence; Z90.710 Acquired absence of both cervix and uterus; Z87.728 Personal history of other specified (corrected) congenital malformations of nervous system and sense organs
CPT/HCPCS: 93005 ×2; 99285; 36415; 94640; 94760; 93306; 93351; 85379; 80061; 80053; 83735; 84484 ×2; 85025; 85610; 85730; 71046; G0378 ×2; J1250; J0461

== ENCOUNTER 2019-08-17 11:30 | Emergency (ER) | payer MEDICARE, OTHER ==
[2019-08-17 12:03] VITALS: RESP 19
[2019-08-17] MEDS ORDERED: ONDANSETRON ODT 4 MG TAB PO STA (13:16)
[2019-08-17] MEDS ORDERED: MORPHINE SULFATE 4 MG/ML SYRINGE IM STA ×2 (13:16→14:33)
--- NOTE | 2019-08-17 13:37 | ED ---
General Adult HPI - General Chief complaint: Extremity Problem,Nontraumatic Stated complaint: Shoulder Pain, Nausea Time Seen by Provider: 08/17/19 12:58 Source: patient Mode of arrival: ambulatory Limitations: no limitations - History of Present Illness Initial comments: Dictation was produced using [employer] dictation software. please excuse any gra mmatical, word or spelling errors. Chief Complaint: 54-year-old female presents with chief complaint of nausea vomiting and pain. History of Present Illness: 54-year-old female she presents today here from home for lack of appetite, nausea vomiting and pain. She was recently here near Hospital getting images performed. Patient is a history of cervical spinal surgery. She had a cervical spine CT showing stable surgical site she also had extension and flexion x-ray spine films that appear to be stable. Patient has any diarrhea. She states that she's been very nauseous. She is unable to keep her pain medications down. Furthermore, she reports that her [place] is not working like it used to. The ROS documented in this emergency department record has been reviewed and confirmed by me. Those systems with pertinent positive or negative responses have been documented in the HPI. All other systems are other negative and/or noncontributory. PHYSICAL EXAM: General Impression: Alert and oriented x3, not in acute distress HEENT: Normocephalic atraumatic, extra-ocular movements intact, pupils equal and reactive to light bilaterally, mucous membranes moist. Cardiovascular: Heart regular rate and rhythm, S1&S2 audible, no murmurs, rubs or gallops Chest: Lungs clear to auscultation bilaterally, no rhonchi, no wheeze, no rales Abdomen: Bowel sounds present, abdomen soft, non-tender, non-distended, no organomegaly Musculoskeletal: Pulses present and equal in all extremities, no peripheral edema Motor: no focal deficits noted Neurological: CN II-XII grossly intact, no focal motor or sensory deficits noted Skin: Intact with no visualized rashes Psych: Normal affect and mood ED course: 54 y Old female presents with nausea and persistent pain. Patient's chronic neck pain. Vital signs upon arrival are within acceptable limits. Patient given I am analgesia and by mouth Zofran. X-rays and CT was reviewed. Clinical presentation consistent with cervical radiculopathy.. Patient evaluated after analgesia and ODT Zofran with improvement of symptoms. Discussed patient she should follow-up with her spinal surgeon regarding the findings of her CT and x-ray was performed today. Patient was sent agreeable to plan. Patient given by mouth analgesia for pain control at home. - Related Data Home Medications Medication Instructions Recorded Confirmed Albuterol Inhaler [Ventolin Hfa 2 puff INHALATION RT-QID PRN 12/21/13 07/24/19 Inhaler] Ezetimibe [Zetia] 10 mg PO HS 09/05/14 07/24/19 Fluticasone Propionate 1 spray EA NOSTRIL BID 11/25/15 07/24/19 Citalopram Hydrobromide [CeleXA] 40 mg PO QAM 12/10/15 07/24/19 OXcarbazepine [Trileptal] 600 mg PO BID 12/10/15 07/24/19 Levothyroxine Sodium [Synthroid] 50 mcg PO DAILY 03/13/16 07/24/19 Simethicone [Gas-X] 125 mg PO Q8H PRN 10/19/16 07/24/19 Omeprazole 40 mg PO HS 11/13/16 07/24/19 clonazePAM [KlonoPIN] 0.5 mg PO BID PRN 05/03/17 07/24/19 Methylphenidate HCl 20 mg PO TID 09/09/18 07/24/19 busPIRone HCL 15 mg PO BID 02/05/19 07/24/19 Fluticasone/Vilanterol [Breo 1 puff INHALATION Q24HR 07/24/19 07/24/19 Ellipta 100-25 Mcg Inhaler] Loratadine 10 mg PO DAILY 07/24/19 07/24/19 Montelukast Sodium [Singulair] 10 mg PO HS 07/24/19 07/24/19 Previous Rx's Medication Instructions Recorded Cyclobenzaprine [Flexeril] 10 mg PO BID PRN #60 tab 05/04/19 HYDROcodone/APAP 10-325MG [[place] 1 tab PO Q8HR PRN 30 Days #90 tab 05/04/19 10-325] Atorvastatin [Lipitor] 20 mg PO HS #30 tab 07/25/19 oxyCODONE HCL/ACETAMINOPHEN 1 tab PO Q6HR PRN 3 Days #12 tab 08/17/19 [Percocet 5-325 mg] Allergies Allergy/AdvReac Type Severity Reaction Status Date / Time Penicillins Allergy Rash/Hives Verified 07/24/19 19:59 Review of Systems ROS Statement: Those systems with pertinent positive or pertinent negative responses have been documented in the HPI. ROS Other: All systems not noted in ROS Statement are negative. Past Medical History Past Medical History: Asthma, COPD, GERD/Reflux, Hyperlipidemia, Musculoskeletal Disorder, Osteoarthritis (OA), Syncope, Thyroid Disorder Additional Past Medical History / Comment(s): kidney stones, hypoglycemia, chronic neck and L shoulder, lower back pain. Hx L facial and L ankle fxs, sinus problems, vertigo, falls in past due to syncope, low BP at times. Fusion of sacrum and iliac crest-per dr. Luke with postop infection. 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 Rectocele repair. Barrets esophagus Past Anesthesia/Blood Transfusion Reactions: Previous Problems w/ Anesthesia Additional Past Anesthesia/Blood Transfusion Reaction / Comment(s): "Takes longer to wake up from anesthesia." Past Psychological History: ADD/ADHD, Anxiety, Depression Smoking Status: Former smoker Past Alcohol Use History: None Reported Past Drug Use History: None Reported - Past Family History Mother Family Medical History: Cancer, Thyroid Disorder Additional Family Medical History / Comment(s): Mother of LUNG cancer at age 64 yrs. Father Family Medical History: Asthma, COPD, Osteoarthritis (OA) Additional Family Medical History / Comment(s): Father at age 80 yrs. General Exam Limitations: no limitations Course Vital Signs 08/17/19 12:01 Temperature 98.2 F Pulse Rate 73 Respiratory 19 Rate Blood Pressure 133/87 O2 Sat by Pulse 99 Oximetry Disposition Clinical Impression: Radiculopathy Disposition: HOME SELF-CARE Condition: Good Instructions (If sedation given, give patient instructions): Cervical Radiculopathy (ED) Prescriptions: oxyCODONE HCL/ACETAMINOPHEN [Percocet 5-325 mg] 1 tab PO Q6HR PRN 3 Days #12 tab PRN Reason: Pain Is patient prescribed a controlled substance at d/c from ED?: Yes If prescribed controlled substance>3 days was MAPS reviewed?: Prescribed <3 Days Referrals: Ihsan Ding DO [Primary Care Provider] - 1-2 days Time of Disposition: 14:35
[2019-08-17 14:47] VITALS: BP 166/89; PULSE 90; TEMP 98.1
== END 2019-08-17 14:47 | disposition home or self-care (01) ==
LOC: EC 11:30
DX: M54.12 Radiculopathy, cervical region (principal); R11.2 Nausea with vomiting, unspecified; R63.0 Anorexia; J44.9 Chronic obstructive pulmonary disease, unspecified; K21.9 Gastro-esophageal reflux disease without esophagitis; E78.5 Hyperlipidemia, unspecified; M19.90 Unspecified osteoarthritis, unspecified site; E07.9 Disorder of thyroid, unspecified; F32.9 Major depressive disorder, single episode, unspecified; F41.9 Anxiety disorder, unspecified; F90.9 Attention-deficit hyperactivity disorder, unspecified type; Z87.891 Personal history of nicotine dependence; Z88.0 Allergy status to penicillin; Z79.51 Long term (current) use of inhaled steroids; Z79.899 Other long term (current) drug therapy; Z79.890 Hormone replacement therapy; Z98.1 Arthrodesis status; Z96.698 Presence of other orthopedic joint implants; Z82.61 Family history of arthritis
CPT/HCPCS: 99283 ×2; 96372 ×3; 72052; 72125; J2270

== ENCOUNTER → 2019-08-17 | Outpatient (CLI) | payer MEDICARE, OTHER ==
--- NOTE | 2019-08-17 09:28 | CT ---
EXAMINATION TYPE: CT cervical spine wo con DATE OF EXAM: 08/17/2019 COMPARISON: MRI 03/14/2019 HISTORY: 54-year-old female Spondylosis with radiculopathy TECHNIQUE: Contiguous axial scanning of the cervical spine without IV contrast. Coronal and sagittal reconstructions performed. CT DLP: 433 mGycm Automated exposure control for dose reduction was used. FINDINGS: Post surgical changes of suboccipital decompression with C1 and C2 laminectomies. No cranial cervical junction are mildly, predental space widening, or prevertebral soft tissue swelling. Post surgical changes of C4-C6 ACDF with mature interbody ankylosis. There is trace grade 1 anterolisthesis below the fusion at C6-C7 with mild degenerative disc disease. Hyperostotic changes at the uncovertebral joints particularly at the fused levels. No bony spinal canal narrowing is identified. At C2-C3, uncovertebral joint and facet degenerative change results in mild left neuroforaminal steno sis. At C3-C4, uncovertebral joint arthropathy results in mild to moderate left neuroforaminal narrowing. At C4-C5, hyperostotic changes resulting in residual mild bilateral foraminal narrowing. At C5-C6, hyperostotic changes result in residual moderate bilateral neuroforaminal narrowing. At C6-C7, trace grade 1 anterolisthesis with mild bilateral neuroforaminal narrowing. IMPRESSION: 1. POST SURGICAL CHANGE OF SUBOCCIPITAL DECOMPRESSION WITH LAMINECTOMIES AT THE C1 AND C2 LEVELS. 2. ADDITIONAL UNCOMPLICATED POSTSURGICAL APPEARANCE OF C4-C6 ACDF. 3. SOME UNCOVERTEBRAL JOINT ARTHROPATHY AND BONY HYPEROSTOTIC CHANGES RESULT IN VARIABLE MILD AND MOD ERATE NEUROFORAMINAL STENOSES OUTLINED ABOVE. 4. MILD DEGENERATIVE DISC DISEASE AND TRACE GRADE 1 ANTEROLISTHESIS AT C6/C7 BELOW THE FUSION.
--- NOTE | 2019-08-17 09:39 | XR ---
Cervical spine with flexion and extension views Correlation to prior exam 03/14/2019, CT 08/17/2019 7 views of the cervical spine. Patient is status post anterior cervical fusion and discectomy at C6. There is anatomic alignment. C7 is not well seen. Minimal anterolisthesis grade 1 C2-3 somewhat accentuated on flexion view. Questio n posterior osteophyte superior endplate of C5 shows a similar appearance. Multilevel facet arthropat hy changes are present. Oblique views show stable appearance. IMPRESSION: Essentially stable exam. Postop changes, stable listhesis C2-3 in flexion views. Limitati ons as described. Spondylosis is again noted.
== END | disposition home or self-care (01) ==
LOC: RADCTMAIN 08:25
PROVIDERS: ATTEND Neurological Surgery
DX: M48.02 Spinal stenosis, cervical region (principal); M50.123 Cervical disc disorder at C6-C7 level with radiculopathy; M50.023 Cervical disc disorder at C6-C7 level with myelopathy; M43.12 Spondylolisthesis, cervical region; M47.12 Other spondylosis with myelopathy, cervical region; M47.22 Other spondylosis with radiculopathy, cervical region; Z98.890 Other specified postprocedural states
CPT/HCPCS: 72052; 72125

== ENCOUNTER → 2019-08-24 | Outpatient (CLI) | payer MEDICARE, OTHER ==
[2019-08-24 09:50] VITALS: BP 114/66; PULSE 92; RESP 18
--- NOTE | 2019-08-25 07:07 | P.PAINPG ---
Subjective Progress Note Date: 08/24/19 This is a follow-up visit for this 54 year old female with a chronic history of severe neck pain and low back pain, she is diagnosed with cervical spondylosis and occipital neuralgia, and myofascial pain syndrome lumbar area, she has been managed with combination of interventional pain procedures and medications. Today, she has 3 areas of pain complaints. First area is low back, described as sore, throbbing rated as 9/10, constant. In the past, she has undergone caudal epidural steroid injections with good benefit. She would like to have a repeat injection for this. Secondary of pain in his left knee pain rated as 7/10 described as sore, throbbing. She was evaluated by an orthopedic surgeonDr. Gray who recommended 2 weeks of physical therapy. She is scheduled to follow-up with him after completion of physical therapy. Her third area of pain is her left neck radiating to left shoulder, rated as 9/10. She has undergone C-spine surgery in 2017, and is scheduled to see her neurosurgeonDrTong negron. She is currently on [place] 10/325 every 8 hours and Flexeril 10 mg twice a day, she is able to ambulate, she had no motor or sensory deficit, but the intensity of the pain interfering with her quality of life. She denies side effects from medications, and the medications are helping improve her quality of life. Review of systems is negative for chest pain, shortness of breath, new onset weakness, numbness/tingling, abdominal pain, malaise, fever, night sweats, chills, homicidal or suicidal ideation, or bowel or bladder incontinence. Physical exam: Vitals: Reviewed in EMR GENERAL: Well appearing, in no acute distress PSYCH: Mood and affect is appropriate. Awake, alert, and oriented SKIN: Skin color, texture, turgor normal, no rashes or lesions HEENT: Normocephalic, atraumatic. EOM intact CV: No pedal edema RESP: Respirations are unlabored, no audible wheezing GI: Abdomen non-distended MUSCULOSKELETAL: Bilateral upper and lower extremity strength is normal and symmetric. No atrophy or tone abnormalities are noted. Neck: Tenderness to palpation of left neck with trigger points palpable. Limited range of motion due to pain. Lumbar spine: Straight leg raising in the sitting position is positive on the right side for radicular pain into right lower extremity. Tenderness to palpation over the lumbar spine and paraspinous muscles. Bilateral lumbar scar is visible, well-healed. Negative for pain with facet loading and back extension/rotation. Restricted range of motion of lumbar spine Buttocks: No pain to palpation over the PSIS, sacroiliac joint maneuvers are negative for pain. Extremities: Tenderness to palpation of left medial knee. No edema or skin di scolorations noted. Gait: Gait is normal NEUR: Bilateral upper and lower extremity coordination and muscle stretch reflexes are physiologic and symmetric. Negative clonus bilaterally. No loss of sensation is noted. MRI lumbar spine reviewed which shows posterior spinal fusion at L5-S1. CT cervical [facility] at [facility] on 08/17/2019 postsurgical changes at C1 and C2 levels as well as C4-C6 ACDF. Facet arthropathy resulting in variable mild to moderate neuroforaminal stenosis at multiple levels. Mild degenerative disc disease and grade 1 anterolisthesis at C6-7 below the level of fusion. Assessment and plan= chronic low back pain secondary to lumbar postlaminectomy pain syndrome, right lumbar radiculopathy, right sacroiliitis status post right sacroiliac joint fusion Chronic severe neck pain secondary to cervical spondylosis, Right shoulder arthralgia , and myofascial pain syndrome right-sided cervical paravertebral muscles and thoracic paravertebral muscles Left knee osteoarthritis chronic and current use of high-risk medication (opioids) Patient denies any side effects of the current pain medication and the current treatment/medication helping the patient to do activity of daily living , Diagnoses, prognosis, treatment options, including but not limited to physical therapy, medication management, interventional therapies, and surgery, were discussed with the patient All the questions answered The narcotic consent was signed and patient agreed and understood the side effects and complications of opioid treatment. MAPS Reviewed and it was appropriate . Of note, the patient is taking Klonopin daily at bedtime for anxiety. I counseled her on the adverse effects of combining benzodiazepines and opioids. I instructed her to have a discussion with her prescribing provider regarding weaning benzodiazepines. She is amenable to this plan. She was instructed to be off the Klonopin at her next visit. UDS from June 2019 is consistent with prescribed medications Medication managements= patient will be given prescription refills for [place] 10/325 every 8 hours dispense 90 with 1 refill, Flexeril 10 mg 2 times a day dispensed 90 with 1 refill Interventions= she will be good candidate for a caudal epidural steroid injection with lysis of adhesions, we will schedule this. She was also instructed to discuss with her cervical spine surgeon as to whether she would be a candidate for cervical procedures. Counseling: Patient was counseled on the importance of weight loss and exercise. She was provided an exercise handout to focus on low back stretching and strengthening exercises. Follow-up: for above-mentioned procedure at next available and medication management in 8 weeks. PQRS Measure Charge Sheet Measure #130: Documentation of Current Meds in Medical Chart: Patient's medications documented in chart Measure #226: Tobacco Use: Screen & Cessation Intervention: Pt not a tobacco user Measure #111: Pneumonia Vaccination: Pneumococcal vaccine administered or previously received Measure #47: Advance Care Plan: Advance care planning discussed & documented, pt chose/unable to give Measure #412: Opioid Treatment Agreement: Documented signed opioid trtmnt agreemnt min once during opioid trtmnt Measure #408: Opioid Therapy Follow-up Evaluation: Patient had f/u eval minimum every 3 months during opioid therapy Measure #317: Preventitive Care & Scrn High Bld Press & F/U: Normal blood pressure, f/u not required Measure #128: Body Mass Index (BMI) Screening & Follow-up: BMI documented ABOVE normal parameters - f/u documented Measure #131: Pain Assessment & Follow-up: Pain positive & plan documented, Follow-up scheduled Measure #431: Unhealthy Alcohol Use Preventative Care & Scrn: Patient not identified as an unhealthy alcohol user PQRS Measure Charge Sheet PQRS Narrative: Smoking Status Former smoker Narcotic Agreement Date Signed 09/20/18 Pain Intensity [Back] 7 Pain Intensity [Left Knee] 9 Pain Intensity [Left Shoulder] 9 Scale Used Numeric (1 - 10) Hx Alcohol Use (MH) No Home Medications: Ambulatory Orders Albuterol Inhaler [Ventolin Hfa Inhaler] 2 puff INHALATION RT-QID PRN 12/21/13 Ezetimibe [Zetia] 10 mg PO HS 09/05/14 Fluticasone Propionate 1 spray EA NOSTRIL BID 11/25/15 Citalopram Hydrobromide [CeleXA] 40 mg PO QAM 12/10/15 OXcarbazepine [Trileptal] 600 mg PO BID 12/10/15 Levothyroxine Sodium [Synthroid] 50 mcg PO DAILY 03/13/16 Simethicone [Gas-X] 125 mg PO Q8H PRN 10/19/16 Omeprazole 40 mg PO HS 11/13/16 clonazePAM [KlonoPIN] 0.5 mg PO BID PRN 05/03/17 Methylphenidate HCl 20 mg PO TID 09/09/18 busPIRone HCL 15 mg PO BID 02/05/19 Cyclobenzaprine [Flexeril] 10 mg PO BID PRN #60 tab 05/04/19 HYDROcodone/APAP 10-325MG [[place] 10-325] 1 tab PO Q8HR PRN 30 Days #90 tab 05/04/19 Fluticasone/Vilanterol [Breo Ellipta 100-25 Mcg Inhaler] 1 puff INHALATION Q24HR 07/24/19 Loratadine 10 mg PO DAILY 07/24/19 Montelukast Sodium [Singulair] 10 mg PO HS 07/24/19 Atorvastatin [Lipitor] 20 mg PO HS #30 tab 07/25/19 Controlled Substance Measures - Controlled Substance Measures Is patient prescribed a controlled substance at discharge?: Yes When asked, does pt state using other controlled substances?: No If prescribed controlled substance>3 days was MAPS reviewed?: Yes If Rx opioid, was Start Talking consent form obtained?: Yes If opioid is for acute pain is fill amount 7 days or less?: No Was information provided regarding opioid addiction?: Yes
== END | disposition home or self-care (01) ==
LOC: PNWHC3 09:25
PROVIDERS: ATTEND Anesthesiology
DX: G89.29 Other chronic pain (principal); M96.1 Postlaminectomy syndrome, not elsewhere classified; M54.16 Radiculopathy, lumbar region; M46.1 Sacroiliitis, not elsewhere classified; M47.812 Spondylosis without myelopathy or radiculopathy, cervical region; M25.511 Pain in right shoulder; M79.18 Myalgia, other site; M17.12 Unilateral primary osteoarthritis, left knee; M54.81 Occipital neuralgia; M43.28 Fusion of spine, sacral and sacrococcygeal region; Z87.891 Personal history of nicotine dependence; Z79.899 Other long term (current) drug therapy
CPT/HCPCS: 99211

== ENCOUNTER → 2019-09-13 | Day surgery (SDC) | payer MEDICARE, OTHER ==
[2019-09-12 10:06] VITALS: BMI 34.7
[~2019-09-13] MED LIST changes: +IOPAMIDOL M200 10 ML VIAL ONE; +IV FLUID CONTINUATION 1,000 ML IV ONE; +LIDOCAINE 1% 20 ML VIAL (10MG/ML) FOR IV START INTRADERMA ONE; +MIDAZOLAM 2 MG/2 ML VIAL ONE; +SODIUM CHLORIDE 0.9% (PF) 10 ML VIAL ONE; +fentaNYL (PF) 50 MCG/ML 2 ML AMP ONE; +methylPREDNISolone ACETATE 40 MG/ML 1 ML VIAL ONE
[2019-09-13 07:14] VITALS: RESP 16; TEMP 96.7
--- NOTE | 2019-09-13 08:16 | P.PCN ---
Date of Procedure: 09/13/19 Procedure(s) Performed: PREOP DIAGNOSIS: 1- Lumbar postlaminectomy syndrome. POSTOP DIAGNOSIS:1- Lumbar postlaminectomy syndrome. PROCEDURE: 1-Caudal epidural steroid injection with epidurolysis and epidurogram under fluoroscopic guidance. (Fluoroscopy images available in the radiology Department ) 2-caudal epidurogram. ANESTHESIA: Local with 1% lidocaine 3 ml ,and moderate sedation, with Versed 2 mg and fentanyl 100 g. EBL: Minimal. PROCEDURE INDICATION: The patient with post-laminectomy syndrome with low back pain and radiculopathy radiating down in both legs, here for a caudal epidural steroid injection with epidurolysis. PROCEDURE DESCRIPTION: The patient was seen and identified in the preoperative area. Risks, benefits, complications, and alternatives were discussed with the patient. The patient agreed to proceed with the procedure and signed the consent. IV was started, and vital signs were stable. Patient was taken to the OR and time out was completed. The patient was placed in the prone position on procedure table and a pillow was placed under the abdomen to reduce lumbar lordosis. The lumbosacral area was prepped and draped in the usual sterile fashion. Vital signs were closely monitored during the procedure. lateral view and the anterior-posterior plates of the sacrum were identified with infiltration of the area overlying the sacral hiatus with 1% lidocaine .A 17 gauge RK epidural needle was used to advance through the sacral hiatus into the caudal epidural space. Omnipaque 180 dye. 2cc was injected and the position of the needle was verified to be in the midline. A Racz catheter was introduced into the epidural space and was advanced towards the L5-S1 interspace under direct fluoroscopic guidance. Multiple passes were made with the catheter for lysis of epidural adhesions. Depo-Medrol 80 mg with 3ml of preservative free Lidocaine 1% and 5 ml of preservative free normal saline was injected slowly. Additional spread was seen to L4 under fluoroscopy. The needle and the catheter were withdrawn intact. EPIDUROGRAM: Omnipaque 180 mg dye 2 ml was injected with spread of the dye into the caudal epidural space and with spread cutoff at L5 prior to epidurolysis. Post epidurolysis dye 2 ml was injected and spread was seen to L4-5.There was further spread of the solution together with the dye above the L3 COMPLICATIONS: None. DISPOSITION / PLANS: The patient was placed in a supine position and transferred to the recovery area in a stable condition for observation and was discharged from the recovery room after meeting discharge criteria. Home discharge instructions given to the patient by the staff. The patient was reexamined prior to discharge. The patient will schedule a follow up in the clinic in 2-4 weeks.
--- NOTE | 2019-09-13 08:24 | FL ---
EXAMINATION TYPE: FL guided pain mgmt statistic DATE OF EXAM: 09/13/2019 HISTORY: Fluoroscopy time 4 seconds of fluoroscopy provided. IMPRESSION: 1. Fluoroscopy time.
[2019-09-13 08:47] VITALS: BP 107/59; PULSE 78
== END ==
LOC: ORPAIN 06:48
PROVIDERS: ATTEND Specialist
DX: M96.1 Postlaminectomy syndrome, not elsewhere classified (principal); M54.16 Radiculopathy, lumbar region; G96.12 Meningeal adhesions (cerebral) (spinal)
CPT/HCPCS: 62264; 62323; J2250; J1030; J3010; Q9966; C1894; 99152

== ENCOUNTER → 2019-09-22 | Outpatient (CLI) | payer MEDICARE, OTHER ==
--- NOTE | 2019-09-22 08:35 | US ---
EXAMINATION TYPE: US abdomen complete DATE OF EXAM: 09/22/2019 COMPARISON: NONE CLINICAL HISTORY: R10.84 Generalized abdominal Pain. GERD, abd pain EXAM MEASUREMENTS: Liver Length: 17.2 cm Gallbladder Wall: Surgically absent CBD: 0.7 cm Spleen: 9.8 cm Right Kidney: 9.8 x 4.7 x 4.7 cm Left Kidney: 10.0 x 4.4 x 5.9 cm Pancreas: wnl Liver: There is increased echogenicity of the hepatic parenchyma with diminished visualization of th e portal triads most commonly relating to hepatic steatosis and limiting evaluation for underlying he patic masses. Gallbladder: Surgically absent Evidence for sonographic Mcdonald's sign: no CBD: wnl Spleen: wnl Right Kidney: wnl Left Kidney: wnl Upper IVC: wnl Abd Aorta: wnl The intrahepatic portion of the IVC and proximal abdominal aorta are within normal limits. Common jacquelyn e duct is unremarkable for postcholecystectomy status. The visualized portions of the pancreas are h omogenous. The spleen is unremarkable. Kidneys are symmetric and free of hydronephrosis. No renal lesions are seen. IMPRESSION: Sonographic findings most commonly related to hepatic steatosis. Correlate with liver fun ction tests.
== END | disposition home or self-care (01) ==
LOC: RADUSWWP 06:53
PROVIDERS: ATTEND Family Medicine
DX: K76.0 Fatty (change of) liver, not elsewhere classified (principal)
CPT/HCPCS: 76700

== ENCOUNTER 2019-09-28 08:12 | Day surgery (SDC) | payer MEDICARE, OTHER ==
[2019-09-27 10:36] VITALS: BMI 34.0
[~2019-09-28 08:12] MED LIST changes: +BUPIVACAINE (PF) 0.5% 30 ML VIAL ONE; -IV FLUID CONTINUATION 1,000 ML IV ONE; -LIDOCAINE 1% 20 ML VIAL (10MG/ML) FOR IV START INTRADERMA ONE; +LIDOCAINE 1% INJ 10MG/ML (20 ML MDV) ONE; -SODIUM CHLORIDE 0.9% (PF) 10 ML VIAL ONE; -methylPREDNISolone ACETATE 40 MG/ML 1 ML VIAL ONE; +methylPREDNISolone ACETATE 80 MG/ML 1 ML VIAL ONE
[2019-09-28] MEDS ORDERED: LIDOCAINE 1% 20 ML VIAL (10MG/ML) FOR IV START INTRADERMA ONE (08:40)
[2019-09-28 08:45] VITALS: RESP 16; TEMP 97.2
[2019-09-28] MEDS ORDERED: IV FLUID CONTINUATION 1,000 ML IV ONE (10:07)
--- NOTE | 2019-09-28 10:11 | FL ---
EXAMINATION TYPE: FL guided pain mgmt statistic DATE OF EXAM: 09/28/2019 CLINICAL HISTORY: Low back pain. TECHNIQUE: Fluoroscopy. COMPARISON: None. FINDINGS: Fluoroscopic guidance was provided during pain relief procedure performed by Dr. Vieira. A t otal of 8 seconds of fluoroscopic time was utilized during the procedure and 4 spot images are acquir ed. Images acquired shows needle localization of the lumbosacral junction. IMPRESSION: As Above.
[2019-09-28 10:15] VITALS: BP 103/55
[2019-09-28 10:20] VITALS: PULSE 72
--- NOTE | 2019-09-28 10:45 | P.PCN ---
Date of Procedure: 09/28/19 Procedure(s) Performed: Procedure= caudal epidural steroid injection with lysis of epidural adhesions under fluoroscopy guidance. trigger point injections to left cervical paraspinals, trapezius and rhomboids Preoperative diagnosis=1-failed back surgery syndrome lumbar area. 2 lumbar degenerative disc disease 3-lumbar radiculopathy 4- cervical myofascial pain syndrome Postoperative diagnosis= same Fluoroscopy was used for the procedure and fluoroscopic images were saved to the patient's chart Anesthesia= IV sedation with Versed and fentanyl , and local infiltration with lidocaine 1% 3 mL for skin and subcutaneous tissue infiltrations. Sedation time 13 minutes Description of the procedure= procedure risk and benefits discussed with the patient, including but not limited to risk of infection and bleeding and ALLERGIC reaction to the medication and no complete pain relief, paralysis disc ussed with the patient and the patient agreed with proceeding. The patient was taken to the operating room, placed in prone position, standard monitors applied, then after induction of anesthesia the lumbar and the caudal Area prepped with chlorhexidine , then under fluoroscopy guidance, local infiltration of the skin and subcutaneous tissue at the caudal hiatus area, then a 17-gauge Touhy needle advanced slowly under fluoroscopy and passed through the caudal hiatus and advanced to the epidural space upto the S3 level. Aspiration revealed no heme, no paresthesia, no cerebrospinal fluid, then Isovue 200 2mls was injected under live fluoroscopy that showed good spread in the epidural space, no intrathecal spread, then a 22 radha Racz catheter was advanced slowly through the needle up to the L5 level and I was able to break the scar tissue by advancing and withdrawing the catheter multiple times. Once lysis of adhesion was completed, a mixture of lidocaine 1% 1 mL +4 mL of preservative-free normal saline +80 mg of depomedrol was mixed together , and injected epidurally after negative aspiration. Then I turned my attention to trigger point injections. The patient's back was sterilely prepped in the usual fashion with ChloraPrep. 11 trigger points were identified via palpation of the indicated muscles (left cervical paraspinals, left trapezius, left rhomboid) and marked sterilely. Each trigger point was injected with a 25-gauge half inch needle, with 1-1.5 mL of solution consisting of ropivacaine 0.5%. The patient's vital signs were stable afterwards and the procedure was tolerated well. Patient was discharged home with follow-up instructions.
== END 2019-09-28 10:35 | disposition home or self-care (01) ==
LOC: ORPAIN 08:12
PROVIDERS: ATTEND Anesthesiology
DX: M96.1 Postlaminectomy syndrome, not elsewhere classified (principal); M51.16 Intervertebral disc disorders with radiculopathy, lumbar region; M79.18 Myalgia, other site
CPT/HCPCS: 20553; 62264; J2250; J1040; J2001; J3010; Q9966; J2795; C1894; 77002; 99152

== ENCOUNTER 2019-10-06 13:23 | Inpatient (IN) | payer MEDICARE, OTHER ==
[2019-10-06] MEDS ORDERED: MORPHINE SULFATE 4 MG/ML SYRINGE IV STA (14:13)
[2019-10-06] MEDS ORDERED: ALPRAZolam 0.25 MG TAB PO STA (14:14)
[2019-10-06 14:33] LABS: Basophils # (A) 0.1 k/uL (0-0.2); Basophils % (A) 1 %; Eosinophils # (A) 0.2 k/uL (0-0.7); Eosinophils % (A) 2 %; HCT 39.1 % (34.0-46.0); HGB 12.8 gm/dL (11.4-16.0); Lymphocytes % (A) 21 %; MCH 26.8 pg (25.0-35.0); MCHC 32.7 g/dL (31.0-37.0); Mean Platelet Volume 7.3; Monocytes # (A) 0.6 k/uL (0-1.0); Monocytes % (A) 4 %; Neutrophils # (A) 10.2 k/uL (1.3-7.7); Neutrophils % (A) 71 %; Platelet Count 341 k/uL (150-450); RBC 4.77 m/uL (3.80-5.40); RDW 15.4 % (11.5-15.5); WBC 14.3 k/uL (3.8-10.6)
--- NOTE | 2019-10-06 14:41 | ED ---
General Adult HPI - General Chief complaint: Shortness of Breath Stated complaint: IVAN Time Seen by Provider: 10/06/19 13:52 Source: patient Mode of arrival: ambulatory Limitations: no limitations - History of Present Illness Initial comments: Dictation was produced using [employer] dictation software. please excuse any grammatical, word or spelling errors. Chief Complaint: 54-year-old female past medical history of COPD, dyslipidemia syncope presents with pleuritic chest pain. History of Present Illness: This 54-year-old female she presents with multiple days of substernal sharp chest pain with deep inspiration. This pain has been ongoing for several days now. Patient denies any associated diaphoresis. No radiation symptoms to her back or extremities. No suicidal nausea. Patient states that the pain is also her epigastric area and it radiates to bilateral flanks. She is history of cholecystectomy. Denies any constitutional histories. She does report some minor diarrhea episodes. She is tolerating by mouth. She does report feeling slightly shaky today. She does report feeling slightly anxious today. has history of anxiety. The ROS documented in this emergency department record has been reviewed and confirmed by me. Those systems with pertinent positive or negative responses have been documented in the HPI. All other systems are other negative and/or noncontributory. PHYSICAL EXAM: General Impression: Alert and oriented x3, not in acute distress, tremulousness HEENT: Normocephalic atraumatic, extra-ocular movements intact, pupils equal and reactive to light bilaterally, mucous membranes moist. Cardiovascular: Heart regular rate and rhythm, S1&S2 audible, no murmurs, rubs or gallops Chest: Lungs clear to auscultation bilaterally, no rhonchi, no wheeze, no rales Abdomen: Bowel sounds present, abdomen soft, non-tender, non-distended, no organomegaly Musculoskeletal: Pulses present and equal in all extremities, no peripheral edema Motor: no focal deficits noted Neurological: CN II-XII grossly intact, no focal motor or sensory deficits noted Skin: Intact with no visualized rashes Psych: Normal affect and mood ED course: 54-year-old female presents with atypical chest pain and epigastric a bdominal pain.. Vital signs upon arrival are within acceptable limits. EKG is unremarkable. Laboratory evaluation obtained. Leukocytosis of 14.3, rest of CBC unremarkable. Metabolic panel is unremarkable. Cardiac enzymes negative. Checks x-ray is unremarkable. Abdominal x-ray shows findings to suggest ileus. Disposition options were discussed with patient. She did not fill comfortable going home. Given x-ray findings, apprehension and inability to tolerate by mouth we'll have patient admitted with GI consultation for inpatient management ileus. Patient is exhibiting some drug-seeking behavior. She is told that pain medications can exacerbate her current condition. She states that she denies pain medications because of her chronic pain. EKG interpretation: Ventricular rate 80, normal sinus rhythm,. SC interval 192, QRS 84, QTC 456. No SC prolongation, no QTC prolongation, no ST or T-wave changes noted. Overall, this EKG is unremarkable - Related Data Home Medications Medication Instructions Recorded Confirmed Albuterol Inhaler [Ventolin Hfa 2 puff INHALATION RT-QID PRN 12/21/13 09/27/19 Inhaler] Ezetimibe [Zetia] 10 mg PO HS 09/05/14 09/27/19 Fluticasone Propionate 1 spray EA NOSTRIL BID 11/25/15 09/27/19 Citalopram Hydrobromide [CeleXA] 40 mg PO QAM 12/10/15 09/27/19 OXcarbazepine [Trileptal] 600 mg PO BID 12/10/15 09/27/19 Levothyroxine Sodium [Synthroid] 50 mcg PO QAM 03/13/16 09/27/19 Simethicone [Gas-X] 125 mg PO Q8H PRN 10/19/16 09/27/19 Omeprazole 40 mg PO QAM 11/13/16 09/27/19 clonazePAM [KlonoPIN] 0.5 mg PO BID PRN 05/03/17 09/27/19 Methylphenidate HCl 20 mg PO TID 09/09/18 09/27/19 busPIRone HCL 15 mg PO BID 02/05/19 09/27/19 Fluticasone/Vilanterol [Breo 1 puff INHALATION Q24HR 07/24/19 09/27/19 Ellipta 100-25 Mcg Inhaler] Montelukast Sodium [Singulair] 10 mg PO HS 07/24/19 09/27/19 Cetirizine HCl [Zyrtec] 10 mg PO HS 09/27/19 09/27/19 Multivitamins, Thera [Multivitamin 1 tab PO DAILY 09/27/19 09/27/19 (formulary)] Previous Rx's Medication Instructions Recorded Cyclobenzaprine [Flexeril] 10 mg PO BID PRN #60 tab 05/04/19 HYDROcodone/APAP 10-325MG [[place] 1 tab PO Q8HR PRN 30 Days #90 tab 05/04/19 10-325] Atorvastatin [Lipitor] 20 mg PO HS #30 tab 07/25/19 Allergies Allergy/AdvReac Type Severity Reaction Status Date / Time Penicillins Allergy Rash/Hives Verified 10/06/19 13:30 Review of Systems ROS Statement: Those systems with pertinent positive or pertinent negative responses have been documented in the HPI. ROS Other: All systems not noted in ROS Statement are negative. Past Medical History Past Medical History: Asthma, COPD, GERD/Reflux, Hyperlipidemia, Musculoskeletal Disorder, Osteoarthritis (OA), Syncope, Thyroid Disorder Additional Past Medical History / Comment(s): kidney stones, hypoglycemia, chronic neck and L shoulder, lower back pain. Hx L facial and L ankle fxs, sinus problems, vertigo, falls in past due to syncope, low BP at times. Fusion of sacrum and iliac crest-per dr. Luke with postop infection. History of Any Multi-Drug Resistant Organisms: None Reported Past Surgical History: Adenoidectomy, Back Surgery, Hernia Repair, Hysterectomy, Orthopedic Surgery, Tonsillectomy Additional Past Surgical History / Comment(s): Arnold chiari- repair of herniation into brain stem, rods in lower back, Septoplasty, bunionectomies, hong rgery L fx foot-alix placed & removed, lithotripsy and stent placed and removed for kidney stones, laser eye surgery bilaterally, EGD, colonoscopy, Pain clinic procedures: injections and nerve burning and hardware palced in cervical neck. Rectocele repair. Barrets esophagus Past Anesthesia/Blood Transfusion Reactions: Previous Problems w/ Anesthesia Additional Past Anesthesia/Blood Transfusion Reaction / Comment(s): "Takes longer to wake up from anesthesia." Past Psychological History: ADD/ADHD, Anxiety, Depression Smoking Status: Former smoker Past Alcohol Use History: None Reported Past Drug Use History: None Reported - Past Family History Mother Family Medical History: Cancer, Thyroid Disorder Additional Family Medical History / Comment(s): Mother of LUNG cancer at age 64 yrs. Father Family Medical History: Asthma, COPD, Osteoarthritis (OA) Additional Family Medical History / Comment(s): Father at age 80 yrs. General Exam Limitations: no limitations Course Vital Signs 10/06/19 13:29 Temperature 97.8 F Pulse Rate 83 Respiratory 16 Rate Blood Pressure 117/80 O2 Sat by Pulse 98 Oximetry Medical Decision Making - Lab Data Result diagrams: 10/06/19 13:52 10/06/19 13:52 Lab Results 10/06/19 10/06/19 10/06/19 Range/Units 13:52 13:52 13:52 WBC 14.3 H (3.8-10.6) k/uL RBC 4.77 (3.80-5.40) m/uL Hgb 12.8 (11.4-16.0) gm/dL Hct 39.1 (34.0-46.0) % MCV 82.0 (80.0-100.0) fL MCH 26.8 (25.0-35.0) pg MCHC 32.7 (31.0-37.0) g/dL RDW 15.4 (11.5-15.5) % Plt Count 341 (150-450) k/uL Neutrophils % 71 % Lymphocytes % 21 % Monocytes % 4 % Eosinophils % 2 % Basophils % 1 % Neutrophils # 10.2 H (1.3-7.7) k/uL Lymphocytes # 3.0 (1.0-4.8) k/uL Monocytes # 0.6 (0-1.0) k/uL Eosinophils # 0.2 (0-0.7) k/uL Basophils # 0.1 (0-0.2) k/uL Sodium 136 L (137-145) mmol/L Potassium 4.2 (3.5-5.1) mmol/L Chloride 101 (98-107) mmol/L Carbon Dioxide 26 (22-30) mmol/L Anion Gap 9 mmol/L BUN 14 (7-17) mg/dL Creatinine 0.75 (0.52-1.04) mg/dL Est GFR (CKD-EPI)AfAm >90 (>60 ml/min/1.73 sqM) Est GFR (CKD-EPI)NonAf >90 (>60 ml/min/1.73 sqM) Glucose 122 H (74-99) mg/dL Calcium 9.2 (8.4-10.2) mg/dL Magnesium 2.1 (1.6-2.3) mg/dL Total Bilirubin 0.2 (0.2-1.3) mg/dL AST 28 (14-36) U/L ALT 25 (4-34) U/L Alkaline Phosphatase 124 (38-126) U/L Troponin I <0.012 (0.000-0.034) ng/mL Total Protein 7.8 (6.3-8.2) g/dL Albumin 4.7 (3.5-5.0) g/dL Lipase 131 (23-300) U/L Disposition Clinical Impression: Abdominal pain Disposition: ADMITTED IP TO THIS HOSP Condition: Fair Referrals: Ihsan Ding DO [Primary Care Provider] - 1-2 days Decision Time: 16:01
[2019-10-06 14:43] LABS: ALT 25 U/L (4-34); AST 28 U/L (14-36); African American GFR (CKD) >90 (>60 ml/min/1.73 sqM); Albumin 4.7 g/dL (3.5-5.0); Alkaline Phosphatase 124 U/L (38-126); Anion Gap 9 mmol/L; Blood Urea Nitrogen 14 mg/dL (7-17); Calcium 9.2 mg/dL (8.4-10.2); Carbon Dioxide 26 mmol/L (22-30); Chloride 101 mmol/L (98-107); Glucose 122 mg/dL (74-99); Magnesium 2.1 mg/dL (1.6-2.3); Non-African American GFR(CKD) >90 (>60 ml/min/1.73 sqM); Potassium 4.2 mmol/L (3.5-5.1); Sodium 136 mmol/L (137-145); Total Bilirubin 0.2 mg/dL (0.2-1.3); Total Protein 7.8 g/dL (6.3-8.2)
--- NOTE | 2019-10-06 15:06 | XR ---
Abdomen HISTORY: Right-sided abdomen pain, renal stones Per view the abdomen on 2 images. Correlation to prior exam 09/17/2016 There is no significant interval change. Postop changes are noted of the lumbosacral junction. Degene rative disc change in the visualized spine. There is a slight spinal curvature. There are overlying c ardiac leads. There are air-fluid levels without bowel distention. Lung bases are clear. No evident p neumoperitoneum. Interval fusion of the right sacroiliac joint noted. IMPRESSION: Correlate for ileus or enteritis. Follow-up as indicated.
--- NOTE | 2019-10-06 15:07 | XR ---
EXAMINATION TYPE: XR chest 1V portable DATE OF EXAM: 10/06/2019 COMPARISON: Prior chest x-ray 07/24/2019 HISTORY: Right-sided chest pain TECHNIQUE: Single frontal view of the chest is obtained. FINDINGS: Postop changes are noted to the cervical spine. There are overlying cardiac leads. Patient is rotated. There is no focal air space opacity, pleural effusion, or pneumothorax seen. The cardiac silhouette size is within normal limits. The osseous structures are intact. IMPRESSION: No acute process.
[2019-10-06] MEDS ORDERED: DOCUSATE 100 MG CAP PO STA (15:43)
[2019-10-06] MEDS ORDERED: oxyCODONE-APAP 7.5-325MG 1 EACH TAB PO STA (15:55)
[2019-10-06] MEDS ORDERED: NALOXONE 0.4 MG/ML 1 ML VIAL IV PRN (15:57)
[2019-10-06] MEDS ORDERED: oxyCODONE-APAP 5-325MG 1 EACH TAB PO PRN (15:57)
[2019-10-06] MEDS ORDERED: ACETAMINOPHEN TAB 325 MG TAB PO PRN (15:57)
[2019-10-06] MEDS: SODIUM CHLORIDE 0.9% 1,000 ML IV SCH (16:11)
[2019-10-06] MEDS ORDERED: IOPAMIDOL CONTRAST (ORAL USE) VIAL PO PRN (18:47)
[2019-10-06] MEDS: IOPAMIDOL CONTRAST (ORAL USE) VIAL PO PRN ×2 (19:48→20:54)
[2019-10-06] MEDS: ALBUTEROL NEBULIZED 2.5 MG/3 ML INHALATION SCH (20:32)
[2019-10-06] MEDS: MONTELUKAST 10 MG TAB PO SCH (21:30)
[2019-10-06] MEDS: traMADol 50 MG TAB PO PRN (21:30)
[2019-10-06] MEDS: FLUTICASONE 50MCG/SPRAY NASAL 16GM EA NOSTRIL SCH (21:31)
[2019-10-06] MEDS: HEPARIN SODIUM,PORCINE 5,000 UNIT/ML 1 ML VIAL SQ SCH (21:31)
[2019-10-06] MEDS: busPIRone HCl 5 MG TAB PO SCH (21:31)
[2019-10-06] MEDS: LORATADINE 10 MG TAB PO SCH (21:31)
--- NOTE | 2019-10-06 21:37 | CT ---
EXAMINATION TYPE: CT abdomen pelvis wo con DATE OF EXAM: 10/06/2019 COMPARISON: 09/17/2016 HISTORY: RUQ pain CT DLP: 724.3 mGycm Automated exposure control for dose reduction was used. Multiple axial sections were obtained from the diaphragm to the floor the pelvis with oral contrast o nly. Lung bases are clear. There is no pleural effusion. Heart size is normal. There is hiatal hernia. Liver spleen pancreas appear normal. Bile ducts are not dilated. Gallbladder is absent. There is no adrenal mass. Kidneys have normal size and contour. There is no hydronephrosis. Ureters a re not dilated. There is no retroperitoneal adenopathy. There are multiple diverticula in the sigmoid colon. There is no inguinal hernia. Bladder distends smoothly. There is no sign of a pelvic mass. Ap pendix is not seen. No sign of thickened appendix. There is no mesenteric edema. There is no ascites or free air. There is no sign of a bowel obstructio n. Contrast extends down to the ascending colon. Lumbar vertebra have normal alignment. There is posterior fusion surgery at L5-S1. IMPRESSION: Hiatal hernia. No sign of acute abnormality of the abdomen pelvis. Hiatal hernia increased compared t o old exam.
[2019-10-06] MEDS: OXcarbazepine 300 MG TAB PO SCH (21:53)
[2019-10-06] MEDS: clonazePAM 0.5 MG TAB PO PRN (21:53)
[2019-10-06] MEDS: PANTOPRAZOLE 40 MG TABLET PO SCH (21:53)
[2019-10-06] MEDS: CYCLOBENZAPRINE 10 MG TAB PO PRN (21:53)
--- NOTE | 2019-10-06 22:32 | HP ---
HISTORY AND PHYSICAL I am covering for Dr. Ding. DATE OF SERVICE: 10/06/2019 CHIEF COMPLAINTS: Diarrhea and abdominal discomfort and shortness of breath. HISTORY OF PRESENT ILLNESS: This 54-year-old woman with a past medical history of multiple medical problems, including asthma, COPD, GERD, history of DJD, history of kidney stones, hypoglycemia, history of adenoidectomy, back surgery, history of tonsillectomy, history of Arnold- Chiari malformation, history ADD, ADHD, anxiety, depression, being followed by Dr. Ding in the outpatient setting, was not feeling well over the past one week. The patient initially had significant abdominal pain and subsequently diarrhea, which has been ongoing for the last several days. Patient went to office and was planning an abdominal CT scan, but because of increasing difficulties along with some shortness of breath, the patient presented to [facility] and was admitted for evaluation and treatment. Patient also had some pleuritic chest pains. There is no history of any fever, rigor or chills. No history of headache, loss of consciousness, history of anginal pain at this time. PAST MEDICAL HISTORY: History of asthma, COPD, GERD, hyperlipidemia, history of syncope, adenoidectomy, ADD, ADHD, anxiety, depression. HOME MEDICATIONS: 1. Klonopin 0.5 mg p.o. b.i.d. p.r.n. 2. Buspirone 15 mg p.o. b.i.d. 3. Gas-X 125 mg p.o. q.8 p.r.n. 4. Omeprazole 40 mg p.o. b.i.d. 5. Trileptal 600 mg p.o. b.i.d. 6. Multivitamins one p.o. daily. 7. Singulair 10 mg at bedtime. 8. Methylphenidate 20 mg p.o. t.i.d. 9. Synthroid 50 mcg p.o. daily. 10.[place] 1 p.o. q.8 p.r.n. 11.Breo Ellipta 1 puff daily. 12.Fluticasone sprays b.i.d. 13.Zetia 10 mg at bedtime. 14.Estrace 0.5 mg p.o. daily. 15.Flexeril 10 mg p.o. b.i.d. p.r.n. 16.Celexa 40 mg p.o. daily. 17.Zyrtec 10 mg at bedtime. 18.Lipitor 10 mg at bedtime. 19.Ventolin HFA 2 puffs q.i.d. p.r.n. ALLERGIES: PENICILLIN FAMILY HISTORY: History of cancer, thyroid disorder. SOCIAL HISTORY: Previous history of smoking. No current smoking or alcohol intake. REVIEW OF SYSTEMS: ENT: No diminished hearing. No diminished vision. CARDIOVASCULAR SYSTEM: As mentioned earlier. RESPIRATORY SYSTEM: As mentioned earlier. GI: As mentioned earlier. : As mentioned earlier. NERVOUS SYSTEM: No numbness, weakness. ALLERGY/IMMUNOLOGY: No asthma, hayfever. MUSCULOSKELETAL: As mentioned earlier. HEMATOLOGY/ONCOLOGY: No history of anemia. ENDOCRINE: As mentioned earlier. CONSTITUTIONAL: As mentioned earlier. DERMATOLOGY: Negative. RHEUMATOLOGY: Negative. PSYCHIATRY: As mentioned earlier. PHYSICAL EXAMINATION: Patient alert and oriented x3. Pulse is 71, blood pressure 117/55, respirations 17, temperature 97.4, pulse ox 98% on room air. HEENT: Conjunctivae normal. Oral mucosa dry. NECK: No jugular venous distention. No carotid bruit. No lymph node enlargement. CARDIOVASCULAR SYSTEM: S1, S2 muffled. RESPIRATORY SYSTEM: Breath sounds diminished at the bases. No rhonchi. No crackles. ABDOMEN: Soft, obese. Mild diffuse discomfort on palpation. No guarding. No rigidity. No mass palpable. No ascites. Bowel sounds present. LEGS: No edema. No swelling. NERVOUS SYSTEM: Higher functions as mentioned earlier. Moves all 4 limbs. No focal motor or sensory deficit. LYMPHATICS: No lymph node palpable in neck, axillae or groin. SKIN: No ulcer, rash, bleeding. JOINTS: No active deforming arthropathy. LABS: WBC 14.3, hemoglobin 12.2, sodium 136. ASSESSMENT: 1. Abdominal pain; possibly ileus. 2. Subacute diarrheal illness, possibly infective, with dehydration, present on admission. 3. Hyponatremia, hypovolemic. 4. Increased white count. 5. Pleuritic pain; possibly pleurisy. 6. Chronic obstructive pulmonary disease, asthma, acute exacerbation. 7. Gastroesophageal reflux disease. 8. Hyperlipidemia. 9. History of degenerative joint disease. 10.History of syncope. 11.History of hypothyroidism. 12.History of nephrolithiasis. 13.History of low blood pressure. 14.History of back surgery. 15.History of Arnold-Chiari malformation with herniation. 16.History attention deficit disorder, attention deficit hyperactivity disorder, anxiety, depression. 17.Remote history of nicotine dependence. 18.Obesity with body mass index of 33.8. RECOMMENDATIONS AND DISCUSSION: In this 54-year-old woman who presented with multiple complex medical issues, at this time I recommend to continue current medications, continue with symptomatic treatment. Will initiate intensive bronchodilators and also symptomatic treatment will be provided. I would recommend keeping the patient n.p.o. except for medications for now until the diarrhea frequency is controlled. Otherwise, IV fluids. Continue to monitor. Repeat labs. Stool testing, including C difficile. The possibility of infective diarrhea is to be considered. I would also recommend a CT scan of the abdomen and pelvis and, depending upon the CT scan report, we will also obtain a gastroenterology evaluation if the patient is not feeling better. The plain x-ray abdomen which was done today was reviewed personally by me. It showed multiple bowel loops, indicating possibly ileus. The chest x-ray was also reviewed which showed no acute process. Once again, the overall prognosis is guarded. Further recommendations to follow. See orders for further details. Discussed with the patient, who understands and agrees. A copy of this dictation is being forwarded to Dr. Ding, who is the primary physician. We will also continue with DVT prophylaxis. MMANITHAL / FEMIN: [id number] / MTDD
[2019-10-07] MEDS: HYDROcodone/APAP 10-325MG 1 EACH TAB PO PRN ×3 (03:23→19:03)
[2019-10-07] MEDS: SODIUM CHLORIDE 0.9% 1,000 ML IV SCH ×3 (03:23→23:20)
[2019-10-07] MEDS: LEVOTHYROXINE 50 MCG TAB PO SCH (06:20)
[2019-10-07 07:47] LABS: Basophils % (A) 1 %; Eosinophils # (A) 0.2 k/uL (0-0.7); Eosinophils % (A) 2 %; HCT 33.4 % (34.0-46.0); HGB 10.5 gm/dL (11.4-16.0); Lymphocytes # (A) 2.1 k/uL (1.0-4.8); Lymphocytes % (A) 27 %; MCH 26.1 pg (25.0-35.0); MCHC 31.3 g/dL (31.0-37.0); MCV 83.4 fL (80.0-100.0); Mean Platelet Volume 7.2; Monocytes # (A) 0.3 k/uL (0-1.0); Monocytes % (A) 4 %; Neutrophils # (A) 5.1 k/uL (1.3-7.7); Neutrophils % (A) 64 %; Platelet Count 250 k/uL (150-450); RDW 15.6 % (11.5-15.5); WBC 7.9 k/uL (3.8-10.6)
[2019-10-07 07:56] LABS: African American GFR (CKD) >90 (>60 ml/min/1.73 sqM); Anion Gap 6 mmol/L; Blood Urea Nitrogen 10 mg/dL (7-17); Calcium 8.4 mg/dL (8.4-10.2); Carbon Dioxide 26 mmol/L (22-30); Chloride 104 mmol/L (98-107); Glucose 85 mg/dL (74-99); Non-African American GFR(CKD) >90 (>60 ml/min/1.73 sqM); Potassium 4.3 mmol/L (3.5-5.1); Sodium 136 mmol/L (137-145)
[2019-10-07] MEDS: ALBUTEROL NEBULIZED 2.5 MG/3 ML INHALATION SCH ×4 (08:11→20:33)
[2019-10-07] MEDS: SYMBICORT 80-4.5 MCG INHALER INHALATION SCH ×2 (08:11→20:33)
[2019-10-07] MEDS: busPIRone HCl 5 MG TAB PO SCH ×2 (08:33→21:31)
[2019-10-07] MEDS: FLUTICASONE 50MCG/SPRAY NASAL 16GM EA NOSTRIL SCH ×2 (08:34→21:31)
[2019-10-07] MEDS: METHYLPHENIDATE HCL 10 MG TAB PO SCH ×3 (08:34→17:00)
[2019-10-07] MEDS: HEPARIN SODIUM,PORCINE 5,000 UNIT/ML 1 ML VIAL SQ SCH ×2 (08:34→21:31)
[2019-10-07] MEDS: MULTIVITAMINS, THERA 1 EACH TAB PO SCH (08:34)
[2019-10-07] MEDS: CITALOPRAM HYDROBROMIDE 20 MG TAB PO SCH (08:34)
[2019-10-07] MEDS: PANTOPRAZOLE 40 MG TABLET PO SCH ×2 (08:34→17:00)
[2019-10-07] MEDS: OXcarbazepine 300 MG TAB PO SCH ×2 (08:38→21:31)
[2019-10-07] MEDS: clonazePAM 0.5 MG TAB PO PRN ×2 (08:45→21:31)
[2019-10-07] MEDS: CYCLOBENZAPRINE 10 MG TAB PO PRN ×2 (11:41→21:31)
[2019-10-07] MEDS ORDERED: DICYCLOMINE 20 MG TAB PO PRN (14:41)
[2019-10-07] MEDS ORDERED: MAGNESIUM CITRATE 296 ML BOTTLE PO ONE (15:00)
[2019-10-07] MEDS: traMADol 50 MG TAB PO PRN ×2 (17:00→22:59)
[2019-10-07] MEDS: CHOLESTYRAMINE (WITH SUGAR) 4 GM PACKET PO SCH (17:49)
[2019-10-07] MEDS: ONDANSETRON 4 MG/2 ML VIAL IVP PRN (19:03)
--- NOTE | 2019-10-07 20:07 | P.CONS ---
History of Present Illness - Reason for Consult Consult date: 10/07/19 Abdominal pain Requesting physician: Shaun Leroy - Chief Complaint Abdominal pain - History of Present Illness 54-year-old female with multiple medical comorbidities including COPD, hyperlipidemia, chronic back and neck pain, GERD and chronic constipation who presents to the hospital with complaints of abdominal pain. The patient reports one week of abdominal pain described as burning sharp pain in her abdomen and chest. No vomiting but she did have associated nausea. 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 The patient reports chronic constipation at baseline secondary to narcotic therapy. She will have intermittent episodes of loose stool and will pass small formed old stool with straining reported. No bowel movements today. She did have one loose bowel movement yesterday. Laboratory evaluation on presentation was significant for a hemoglobin of 10.5, WBC 7.9, platelet count 250,000, total bi lirubin 0.2, alkaline phosphatase 129, AST 28 and ALT 25. Computed tomography scan of the abdomen was negative for any intra-abdominal process. Review of Systems REVIEW OF SYSTEMS: CONSTITUTIONAL: Denies any fevers, chills, weight change or fatigue. CARDIOVASCULAR: Denies any chest pain, palpitations high or low blood pressures RESPIRATORY: Denies any shortness of breath, hemoptysis or cough. GENITOURINARY: No dysuria or hematuria. MUSCULOSKELETAL: No weakness reported. SKIN: Denies any new rashes or lesions, jaundice or pallor. PSYCHIATRIC: Denies any depression or anxiety. NEUROLOGY: Denies headache, denies any new focal deficits. EARS/NOSE/THROAT: No recent hearing change, congestion, nasal discharge or sore throat. EYES: No pain in eyes, discharge or change in vision. GASTROINTESTINAL: As per HPI. Past Medical History Past Medical History: Asthma, COPD, GERD/Reflux, Hyperlipidemia, Musculoskeletal Disorder, Osteoarthritis (OA), Syncope, Thyroid Disorder Additional Past Medical History / Comment(s): kidney stones, hypoglycemia, chronic neck and L shoulder, lower back pain. Hx L facial and L ankle fxs, sinus problems, vertigo, falls in past due to syncope, low BP at times. Fusion of sacrum and iliac crest-per dr. Luke with postop infection. 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 Rectocele repair. Barrets esophagus Past Anesthesia/Blood Transfusion Reactions: Previous Problems w/ Anesthesia Additional Past Anesthesia/Blood Transfusion Reaction / Comm: "Takes longer to wake up from anesthesia." Past Psychological History: ADD/ADHD, Anxiety, Depression Additional Psychological History / Comment(s): Patient states she has a mood disorder. Smoking Status: Former smoker Past Alcohol Use History: None Reported Additional Past Alcohol Use History / Comment(s): SMOKED ON/OFF SINCE 12 YEARS OLD, smoked 1/2 PPD. QUIT 2017 Past Drug Use History: None Reported Additional Drug Use History / Comment(s): Past marijuana last use about 8 years ago. - Past Family History Mother Family Medical History: Cancer, Thyroid Disorder Additional Family Medical History / Comment(s): Mother of LUNG cancer at age 64 yrs. Father Family Medical History: Asthma, COPD, Osteoarthritis (OA) Additional Family Medical History / Comment(s): Father at age 80 yrs. Medications and Allergies Home Medications Medication Instructions Recorded Confirmed Type Albuterol Inhaler [Ventolin Hfa 2 puff INHALATION RT-QID PRN 12/21/13 10/06/19 History Inhaler] Ezetimibe [Zetia] 10 mg PO HS 09/05/14 10/06/19 History Fluticasone Propionate 1 spray EA NOSTRIL BID 11/25/15 10/06/19 History Citalopram Hydrobromide [CeleXA] 40 mg PO DAILY 12/10/15 10/06/19 History OXcarbazepine [Trileptal] 600 mg PO BID 12/10/15 10/06/19 History Levothyroxine Sodium [Synthroid] 50 mcg PO DAILY 03/13/16 10/06/19 History Simethicone [Gas-X] 125 mg PO Q8H PRN 10/19/16 10/06/19 History Omeprazole 40 mg PO BID 11/13/16 10/06/19 History clonazePAM [KlonoPIN] 0.5 mg PO BID PRN 05/03/17 10/06/19 History Methylphenidate HCl 20 mg PO TID 09/09/18 10/06/19 History busPIRone HCL 15 mg PO BID 02/05/19 10/06/19 History Cyclobenzaprine [Flexeril] 10 mg PO BID PRN #60 tab 05/04/19 10/06/19 Rx Fluticasone/Vilanterol [Breo 1 puff INHALATION RT-DAILY 07/24/19 10/06/19 History Ellipta 100-25 Mcg Inhaler] Montelukast Sodium [Singulair] 10 mg PO HS 07/24/19 10/06/19 History Cetirizine HCl [Zyrtec] 10 mg PO HS 09/27/19 10/06/19 History Multivitamins, Thera [Multivitamin 1 tab PO DAILY 09/27/19 10/06/19 History (formulary)] Atorvastatin Calcium [Lipitor] 10 mg PO HS 10/06/19 10/06/19 History Estradiol [Estrace] 0.5 mg PO DAILY 10/06/19 10/06/19 History HYDROcodone/APAP 10-325MG [[place] 1 tab PO Q8H PRN 10/06/19 10/06/19 History 10-325] Allergies Allergy/AdvReac Type Severity Reaction Status Date / Time Penicillins Allergy Rash/Hives Verified 10/06/19 16:14 Physical Exam Vitals: Vital Signs Temp Pulse Pulse Resp BP Pulse Ox 10/07/19 16:00 103 H 16 10/07/19 12:26 72 10/07/19 12:14 64 10/07/19 12:05 98.2 F 103 H 16 138/77 95 10/07/19 09:00 71 16 10/07/19 08:25 68 10/07/19 08:10 64 10/07/19 05:00 97.5 F L 71 16 95/63 98 10/06/19 20:42 67 10/06/19 20:36 67 10/06/19 20:31 97.4 F L 69 16 101/54 97 Intake and Output 10/07/19 10/07/19 10/07/19 06:59 14:59 22:59 Intake Total 725 240 Balance 725 240 Intake: Intake, IV Titration 725 Amount Sodium Chloride 0.9% 1, 725 000 ml @ 75 mls/hr IV . [id number] [facility] Rx#:[id number] Oral 240 Other: Voiding Method Toilet Toilet Toilet # Voids 1 3 On physical examination, patient appears comfortable in no apparent distress. HEAD: Normocephalic, atraumatic. EYES: No scleral icterus. No conjunctival injection. MOUTH: No lesions, tongue midline. NECK: Trachea midline, no gross abnormalities. CHEST: Clear to auscultation with no wheezing or rhonchi appreciated. HEART: Regular rate and rhythm. ABDOMEN: Soft, obese. Bowel sounds are positive. No organomegaly. No guarding or rigidity. EXTREMITIES: No pedal edema. SKIN: No rashes, no jaundice. NEUROLOGIC: Alert and oriented x3. No focal deficits. Results CBC & Chem 7: 10/07/19 07:23 10/07/19 07:23 Labs: Abnormal Lab Results - Last 24 Hours (Table) 10/07/19 10/07/19 Range/Units 07:23 07:23 Hgb 10.5 L (11.4-16.0) gm/dL Hct 33.4 L (34.0-46.0) % RDW 15.6 H (11.5-15.5) % Sodium 136 L (137-145) mmol/L CT scan - abdomen: report reviewed (Hiatal hernia but no other acute intra- abdominal processes on computed tomography scan abdomen.) Assessment and Plan (1) Abdominal pain Narrative/Plan: 54-year-old female with multiple medical comorbidities including chronic neck and back pain on narcotic therapy who presents to the hospital due to abdominal pain. X-ray of the abdomen was negative and computed tomography scan of the abdomen was negative for any acute intra-abdominal process with hiatal hernia noted. Patient is on twice daily PPI therapy for a history of Ferrari's esophagus. She reports chronic constipation at baseline, likely related to narcotic therapy. Bowel movements will be small in pieces with intermittent loose watery stool. Unknown etiology of abdominal pain, may be related to chronic constipation, functional bowel disorder, or other etiology. Current Visit: Yes Status: Acute Code(s): R10.9 - UNSPECIFIED ABDOMINAL PAIN SNOMED Code(s): 07949105 (2) Chronic constipation Current Visit: Yes Status: Acute Code(s): K59.09 - OTHER CONSTIPATION SNOMED Code(s): 750054966 (3) Hiatal hernia Current Visit: Yes Status: Acute Code(s): K44.9 - DIAPHRAGMATIC HERNIA WITHOUT OBSTRUCTION OR GANGRENE SNOMED Code(s): 89949035 Plan: Supportive care Okay for diet Continue PPI therapy Magnesium citrate ordered Tap water enema ordered X-ray abdomen ordered tomorrow morning for evaluation of abdominal pain and stool burden No plans for endoscopic evaluation at this time Thank you for allowing us to participate in the care of this patient we will continue to follow
[2019-10-07] MEDS: LORATADINE 10 MG TAB PO SCH (21:31)
[2019-10-07] MEDS: MONTELUKAST 10 MG TAB PO SCH (21:31)
[2019-10-07] MEDS: DICYCLOMINE 20 MG TAB PO SCH (21:31)
--- NOTE | 2019-10-07 22:19 | PN ---
PROGRESS NOTE DATE OF SERVICE: 10/07/2019 This 54-year-old gentleman admitted with subacute diarrhea, still having significant amount of diarrhea last night. The patient also had a CT scan of the abdomen and pelvis. Gastroenterology following the patient closely. CT scan of abdomen and pelvis reviewed personally by me showed hiatal hernia and no other significant abnormality. PAST MEDICAL HISTORY: Reviewed. REVIEW OF SYSTEMS: CARDIOVASCULAR SYSTEM: No angina. RESPIRATORY: As mentioned earlier. GI: As mentioned earlier. : No dysuria. NERVOUS SYSTEMS: No numbness or weakness. MEDICATIONS: 1. Tylenol 650 q.6h p.r.n. 2. [place] 10 mg. 3. Symbicort 80/4.5 b.i.d. 4. BuSpar 50 mg b.i.d. 5. Celexa. 6. Klonopin. 7. Flexeril. 8. Bentyl. 9. Heparin. 10.Narcan. 11.Trileptal. 12.Protonix. 13.Ultram. Doses reviewed. PHYSICAL EXAM: Patient is alert, oriented x3. Pulse 103, blood pressure 130/70, respirations 16, temperature 98.2, pulse ox 94% on room air. HEENT: Conjunctivae normal. Oral mucosa moist. NECK: No jugular venous distention. No lymph node enlargement. CARDIOVASCULAR: S1, S2. RESPIRATORY: Diminished breath sounds at the bases. A few scattered rhonchi and crackles. ABDOMEN: Soft. Mild diffuse tenderness. LEGS: No edema, no swelling. NERVOUS SYSTEM: No focal deficits. LABS: WBC 7.2, hemoglobin 10.4, sodium is 136. ASSESSMENT: 1. Subacute diarrhea illness possibly infective with dehydration, present on admission. 2. Abdominal pain, possible ileus. 3. Hyponatremia, hypovolemic. 4. Increased WBC. 5. Pleuritic chest pain with possible pleurisy. 6. Chronic obstructive pulmonary disease, asthma, acute exacerbation. 7. Gastroesophageal reflux disease. 8. Hyperlipidemia. 9. History of degenerative joint disease. 10.History of syncope. 11.Hypothyroidism. 12.History of nephrolithiasis. 13.History of low blood pressure. 14.History of back surgery. 15.History of Arnold-Chiari malformation with herniation. 16.History of ADD, ADHD, anxiety, depression. 17.Remote history of nicotine dependence. 18.Obesity, body mass index of 33.8. RECOMMENDATIONS AND DISCUSSION: Continue current medication, continue to monitor, symptomatic treatment. CT scan abdomen was noted. C diff is pending and I would recommend Questran also and DVT prophylaxis. Guarded prognosis because of multiple complex medical issues. Further recommendations to follow. Dr. Echevarria is following from GI point of view. MMODL / IJN: [id number] /
[2019-10-08] MEDS: HYDROcodone/APAP 10-325MG 1 EACH TAB PO PRN ×2 (04:25→15:26)
[2019-10-08] MEDS: LEVOTHYROXINE 50 MCG TAB PO SCH (06:16)
[2019-10-08] MEDS: SYMBICORT 80-4.5 MCG INHALER INHALATION SCH ×2 (07:02→21:50)
[2019-10-08] MEDS: ALBUTEROL NEBULIZED 2.5 MG/3 ML INHALATION SCH ×4 (07:02→21:50)
[2019-10-08 07:17] LABS: Basophils % (A) 0 %; Eosinophils # (A) 0.1 k/uL (0-0.7); Eosinophils % (A) 2 %; HCT 30.7 % (34.0-46.0); HGB 9.9 gm/dL (11.4-16.0); Lymphocytes % (A) 26 %; MCH 26.5 pg (25.0-35.0); MCHC 32.4 g/dL (31.0-37.0); MCV 82.1 fL (80.0-100.0); Monocytes # (A) 0.3 k/uL (0-1.0); Monocytes % (A) 4 %; Neutrophils # (A) 5.1 k/uL (1.3-7.7); Neutrophils % (A) 65 %; Platelet Count 252 k/uL (150-450); RBC 3.74 m/uL (3.80-5.40); RDW 15.3 % (11.5-15.5); WBC 7.8 k/uL (3.8-10.6)
--- NOTE | 2019-10-08 07:21 | XR ---
EXAMINATION TYPE: XR abdomen 1V , 2 VIEWS DATE OF EXAM ORDERED: 10/08/2019 HISTORY: Stool burden, constipation. COMPARISON: Previous study dated 10/06/2019. FINDINGS: There has been a previous interpedicular fusion at L5-S1. There has been previous fixation of the right sacroiliac joint. There is contrast within the colon from a recent barium examination. The abdominal gas pattern is normal. There is no evidence of obstruction or free air. No significant stool is seen within the colon. IMPRESSION: NO ACUTE INTRA-ABDOMINAL ABNORMALITY.
[2019-10-08 07:38] LABS: African American GFR (CKD) >90 (>60 ml/min/1.73 sqM); Anion Gap 7 mmol/L; Blood Urea Nitrogen 6 mg/dL (7-17); Carbon Dioxide 26 mmol/L (22-30); Chloride 101 mmol/L (98-107); Glucose 86 mg/dL (74-99); Non-African American GFR(CKD) >90 (>60 ml/min/1.73 sqM); Sodium 134 mmol/L (137-145)
[2019-10-08] MEDS: METHYLPHENIDATE HCL 10 MG TAB PO SCH ×3 (08:01→17:45)
[2019-10-08] MEDS: DICYCLOMINE 20 MG TAB PO SCH ×4 (08:01→21:19)
[2019-10-08] MEDS: HEPARIN SODIUM,PORCINE 5,000 UNIT/ML 1 ML VIAL SQ SCH ×2 (08:01→20:39)
[2019-10-08] MEDS: CITALOPRAM HYDROBROMIDE 20 MG TAB PO SCH (08:01)
[2019-10-08] MEDS: busPIRone HCl 5 MG TAB PO SCH ×2 (08:02→20:41)
[2019-10-08] MEDS: PANTOPRAZOLE 40 MG TABLET PO SCH ×2 (08:02→17:45)
[2019-10-08] MEDS: MULTIVITAMINS, THERA 1 EACH TAB PO SCH (08:02)
[2019-10-08] MEDS: FLUTICASONE 50MCG/SPRAY NASAL 16GM EA NOSTRIL SCH ×2 (08:03→20:39)
[2019-10-08] MEDS: OXcarbazepine 300 MG TAB PO SCH ×2 (08:03→20:38)
[2019-10-08] MEDS: clonazePAM 0.5 MG TAB PO PRN ×2 (08:25→20:38)
[2019-10-08] MEDS: traMADol 50 MG TAB PO PRN ×2 (08:25→21:20)
[2019-10-08] MEDS: CYCLOBENZAPRINE 10 MG TAB PO PRN (11:36)
[2019-10-08] MEDS: CHOLESTYRAMINE (WITH SUGAR) 4 GM PACKET PO SCH ×3 (11:37→17:41)
[2019-10-08] MEDS: SODIUM CHLORIDE 0.9% 1,000 ML IV SCH (17:45)
--- NOTE | 2019-10-08 18:56 | P.PN ---
Subjective Progress Note Date: 10/08/19 Principal diagnosis: Abdominal pain, chronic constipation Patient seen lying in bed reporting one bowel movement yesterday, however she did not complete her magnesium citrate. Still having abdominal pain. Objective - Vital Signs Vital signs: Vital Signs Temp 97.9 F 10/08/19 05:00 Pulse 68 10/08/19 08:00 Resp 16 10/08/19 08:00 BP 98/64 10/08/19 05:00 Pulse Ox 96 10/08/19 05:00 Intake & Output 10/07/19 10/08/19 10/08/19 18:59 06:59 18:59 Intake Total 240 925 240 Output Total 100 Balance 240 825 240 Intake: Intake, IV Titration 725 Amount Sodium Chloride 0.9% 1, 725 000 ml @ 75 mls/hr IV . [id number] [facility] Rx#:[id number] Oral 240 200 240 Output: Emesis 100 Other: Voiding Method Toilet Toilet Toilet # Voids 3 1 3 # Bowel Movements 1 - Exam On physical examination, patient appears comfortable in no apparent distress. HEAD: Normocephalic, atraumatic. EYES: No scleral icterus. No conjunctival injection. MOUTH: No lesions, tongue midline. NECK: Trachea midline, no gross abnormalities. ABDOMEN: Soft, obese. Bowel sounds are positive. No organomegaly. No guarding or rigidity. EXTREMITIES: No pedal edema. SKIN: No rashes, no jaundice. NEUROLOGIC: Alert and oriented x3. No focal deficits. - Labs CBC & Chem 7: 10/08/19 06:39 10/08/19 06:39 Labs: Abnormal Lab Results - Last 24 Hours (Table) 10/08/19 10/08/19 Range/Units 06:39 06:39 RBC 3.74 L (3.80-5.40) m/uL Hgb 9.9 L (11.4-16.0) gm/dL Hct 30.7 L (34.0-46.0) % Sodium 134 L (137-145) mmol/L BUN 6 L (7-17) mg/dL Calcium 8.0 L (8.4-10.2) mg/dL Microbiology - Last 24 Hours (Table) 10/08/19 04:25 Stool Culture - Preliminary Stool Assessment and Plan (1) Abdominal pain Narrative/Plan: 54-year-old female with multiple medical comorbidities including chronic neck and back pain on narcotic therapy who presents to the hospital due to abdominal pain. X-ray of the abdomen was negative and computed tomography scan of the abdomen was negative for any acute intra-abdominal process with hiatal hernia noted. Patient is on twice daily PPI therapy for a history of Ferrari's esophagus. She reports chronic constipation at baseline, likely related to narcotic therapy. Bowel movements will be small in pieces with intermittent loose watery stool. Unknown etiology of abdominal pain, may be related to chronic constipation, functional bowel disorder, or other etiology. Current Visit: Yes Status: Acute Code(s): R10.9 - UNSPECIFIED ABDOMINAL PAIN SNOMED Code(s): 86039362 (2) Chronic constipation Current Visit: Yes Status: Acute Code(s): K59.09 - OTHER CONSTIPATION SNOMED Code(s): 513575968 (3) Hiatal hernia Current Visit: Yes Status: Acute Code(s): K44.9 - DIAPHRAGMATIC HERNIA WITHOUT OBSTRUCTION OR GANGRENE SNOMED Code(s): 22801394 Plan: Supportive care Okay for diet Continue PPI therapy X-ray abdomen reviewed with no significant stool burden noted Continue dicyclomine No plans for endoscopic evaluation at this time Thank you for allowing us to participate in the care of this patient we will continue to follow
[2019-10-08] MEDS ORDERED: metroNIDAZOLE-NS PMX 500 MG in SALINE 1 100ML.BAG IVPB SCH (19:15)
[2019-10-08] MEDS: HYDROmorphone 0.5 MG/0.5 ML SYRINGE IVP PRN ×2 (19:43→23:55)
--- NOTE | 2019-10-08 20:04 | PN ---
PROGRESS NOTE . DATE OF SERVICE: 10/08/2019 This 54-year-old woman admitted with subacute diarrhea is being closely monitored. Patient has some diarrhea and abdominal pain. Abdominal pain persisted and patient also had hypovolemic hyponatremia. Patient closely monitored at this time. Abdomen x- ray has been done. Dr. Echevarria is following the patient closely. The patient also had chronic constipation. A plain x-ray abdomen was recommended by Gastroenterology . Showed which no acute intracranial abnormality. Abdomen and pelvis CAT scan was also done which showed hiatal hernia. No other significant abnormality. No chest pain. No palpitations. No fever. The sodium is still 135, hemoglobin is 10.9. The stool for ova parasite negative. Stool C difficile also negative. PAST MEDICAL HISTORY: Reviewed. REVIEW OF SYSTEMS: Cardiovascular system: No angina or palpitations. RESPIRATORY: As mentioned earlier. GASTROINTESTINAL: As mentioned earlier. : As mentioned earlier. CURRENT MEDICATIONS: Reviewed and include: 1. Tylenol 650 q.6h p.r.n. 2. [place] 10 mg q.8 p.r.n. 3. Ventolin 2.5 q.i.d. 4. Symbicort 160/4.5 two puffs b.i.d. 5. BuSpar 50 mg p.o. b.i.d. 6. Questran 4 g p.o. t.i.d. 7. Celexa 40 mg p.o. daily. 8. Klonopin. 9. Flexeril. 10.Bentyl. 11.Heparin. 12.Dilaudid. 13.Synthroid. 14.Claritin. 16.Singular. 17.Narcan. 18.Multivitamins. 19.Protonix. 20.Ultram. 21.Doses reviewed. PHYSICAL EXAM: Patient is alert and oriented times three. Pulse is 97, blood pressure 149/60. Respirations 16, temperature 98.3, pulse ox 97% on room air. HEENT: Conjunctivae normal. NECK: No JVD. CARDIOVASCULAR: S1, S2 muffled. RESPIRATORY: Breath sounds diminished in the bases. A few scattered rhonchi and crackles. ABDOMEN: Soft, mild diffuse discomfort. LEGS: No edema. No swelling. CENTRAL NERVOUS SYSTEM: No focal deficits. LABS: WBC 7.2, hemoglobin 9.9. Sodium is 134. ASSESSMENT: 1. Subacute diarrhea possibly infective with dehydration, present on admission. 2. Abdominal pain, possibly ileus, intractable. 3. Hyponatremia, hypovolemic. 4. Increased WBC. 5. Pleuritic chest pain with possible pleurisy. 6. Chronic obstructive pulmonary disease, asthma, acute exacerbation. 7. Gastroesophageal reflux disease. 8. Hyperlipidemia. 9. History of syncope. 10.History of degenerative joint disease. 11.Hypothyroidism. 12.History of nephrolithiasis. 13.History of low blood pressure. 14.History of back surgery. 15.History Arnold-Chiari malformation with herniation. 16.History of attention-deficit disorder/attention-deficit/hyperactivity disorder. 17.Anxiety/depression. 18.Remote history of nicotine dependence. 19.Obesity with body mass index of 33.8. RECOMMENDATIONS AND DISCUSSION: I recommend to continue current medications, management and symptomatic treatment. Continue the pain medications. We will add a small dose of Dilaudid at this time. Otherwise, I would also recommend empiric antibiotics. I would initiate Levaquin and Flagyl and we will continue to monitor. Otherwise, prognosis guarded. Further recommendations to follow. Patient is currently on a regular diet at this time. Continue to monitor. MMODL / IJN: [id number] / MTDD
[2019-10-08] MEDS: LORATADINE 10 MG TAB PO SCH (20:38)
[2019-10-08] MEDS: MONTELUKAST 10 MG TAB PO SCH (20:38)
[2019-10-08] MEDS: CALCIUM CARBONATE 500 MG CHEWABLE PO PRN (21:19)
[2019-10-08] MEDS: LEVOFLOXACIN 500MG-D5W PMX 500 MG in DEXTROSE/WATER 1 100ML.BAG IVPB SCH (21:19)
[2019-10-08] MEDS: metroNIDAZOLE-NS PMX 500 MG in SALINE 1 100ML.BAG IVPB SCH (23:53)
[2019-10-09] MEDS: HYDROmorphone 0.5 MG/0.5 ML SYRINGE IVP PRN ×5 (03:51→20:31)
[2019-10-09] MEDS: metroNIDAZOLE-NS PMX 500 MG in SALINE 1 100ML.BAG IVPB SCH ×3 (03:52→20:02)
[2019-10-09] MEDS: LEVOTHYROXINE 50 MCG TAB PO SCH (05:37)
[2019-10-09] MEDS: ONDANSETRON 4 MG/2 ML VIAL IVP PRN (05:37)
[2019-10-09] MEDS: SYMBICORT 80-4.5 MCG INHALER INHALATION SCH ×2 (07:09→21:19)
[2019-10-09] MEDS: ALBUTEROL NEBULIZED 2.5 MG/3 ML INHALATION SCH ×4 (07:11→21:20)
[2019-10-09 07:49] LABS: Basophils % (A) 0 %; Eosinophils # (A) 0.1 k/uL (0-0.7); Eosinophils % (A) 1 %; HCT 30.4 % (34.0-46.0); HGB 9.8 gm/dL (11.4-16.0); Lymphocytes % (A) 23 %; MCH 26.8 pg (25.0-35.0); MCHC 32.1 g/dL (31.0-37.0); MCV 83.3 fL (80.0-100.0); Mean Platelet Volume 7.2; Monocytes # (A) 0.4 k/uL (0-1.0); Monocytes % (A) 5 %; Neutrophils # (A) 6.1 k/uL (1.3-7.7); Neutrophils % (A) 68 %; Platelet Count 231 k/uL (150-450); RBC 3.65 m/uL (3.80-5.40); RDW 15.6 % (11.5-15.5)
[2019-10-09 08:04] LABS: African American GFR (CKD) >90 (>60 ml/min/1.73 sqM); Anion Gap 8 mmol/L; Blood Urea Nitrogen 9 mg/dL (7-17); Calcium 8.2 mg/dL (8.4-10.2); Carbon Dioxide 23 mmol/L (22-30); Chloride 99 mmol/L (98-107); Glucose 81 mg/dL (74-99); Non-African American GFR(CKD) >90 (>60 ml/min/1.73 sqM); Sodium 130 mmol/L (137-145)
[2019-10-09] MEDS: OXcarbazepine 300 MG TAB PO SCH ×2 (08:08→20:02)
[2019-10-09] MEDS: DICYCLOMINE 20 MG TAB PO SCH ×4 (08:08→21:23)
[2019-10-09] MEDS: CITALOPRAM HYDROBROMIDE 20 MG TAB PO SCH (08:08)
[2019-10-09] MEDS: busPIRone HCl 5 MG TAB PO SCH ×2 (08:08→20:01)
[2019-10-09] MEDS: HEPARIN SODIUM,PORCINE 5,000 UNIT/ML 1 ML VIAL SQ SCH ×2 (08:08→20:02)
[2019-10-09] MEDS: PANTOPRAZOLE 40 MG TABLET PO SCH ×2 (08:08→17:35)
[2019-10-09] MEDS: MULTIVITAMINS, THERA 1 EACH TAB PO SCH (08:08)
[2019-10-09] MEDS: METHYLPHENIDATE HCL 10 MG TAB PO SCH ×3 (08:08→17:35)
[2019-10-09] MEDS: FLUTICASONE 50MCG/SPRAY NASAL 16GM EA NOSTRIL SCH ×2 (08:09→20:02)
[2019-10-09] MEDS: CHOLESTYRAMINE (WITH SUGAR) 4 GM PACKET PO SCH ×3 (10:13→18:17)
[2019-10-09] MEDS: clonazePAM 0.5 MG TAB PO PRN ×2 (11:54→20:02)
--- NOTE | 2019-10-09 13:59 | P.GSCN ---
History of Present Illness Consult date: 10/09/19 Reason for Consult: Hiatal hernia Requesting physician: Shaun Leroy History of present illness: CHIEF COMPLAINT: Hernia repair HISTORY OF PRESENT ILLNESS: 54-year-old female who was found to have hiatal hernia on her computed tomography scan. General surgery was consulted for further evaluation. Patient examined at the bedside. Patient reports epigastric tenderness that radiates to both sides of her chest. She denies dysphagia. She is tolerating a regular diet at the time of examination and eating a cheeseburger and fries. PAST MEDICAL HISTORY: See list. PAST SURGICAL HISTORY: See list. SOCIAL HISTORY: No illicit drug use. REVIEW OF SYSTEMS: CONSTITUTIONAL: Denies fever or chills. HEENT: Denies blurred vision, vision changes, or eye pain. Denies hemoptysis CARDIOVASCULAR: Denies chest pain or pressure. RESPIRATORY: No shortness of breath. GASTROINTESTINAL: Refer to HPI for pertinent findings HEMATOLOGIC: Denies bleeding disorders. GENITOURINARY: Denies any blood in urine. SKIN: Denies pruitis. Denies rash. PHYSICAL EXAM: VITAL SIGNS: Reviewed. GENERAL: Well-developed in no acute distress. HEENT: No sclera icterus. Extraocular movements grossly intact. Moist buccal mucosa. Head is atraumatic, normocephalic. ABDOMEN: Soft. Nondistended. Epigastric tenderness noted. NEUROLOGIC: Alert and oriented. Cranial nerves II through XII grossly intact. LABORATORY DATA: WBC 9.0. Hemoglobin 9.8. Platelet count 231. IMAGING: CT abdomen and pelvis revealing hiatal hernia ASSESSMENT: 1. Epigastric pain 2. Hiatal hernia PLAN: Continue diet as tolerated. NPO at midnight. Patient to undergo EGD tomorrow with Dr. Alvarenga to evaluate hiatal hernia Nurse practitioner note has been reviewed by physician. Signing provider agrees with the documented findings, assessment, and plan of care. Past Medical History Past Medical History: Asthma, COPD, GERD/Reflux, Hyperlipidemia, Musculoskeletal Disorder, Osteoarthritis (OA), Syncope, Thyroid Disorder Additional Past Medical History / Comment(s): kidney stones, hypoglycemia, chronic neck and L shoulder, lower back pain. Hx L facial and L ankle fxs, sinus problems, vertigo, falls in past due to syncope, low BP at times. Fusion of sacrum and iliac crest-per dr. Luke with postop infection. 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 Rectocele repair. Barrets esophagus Past Anesthesia/Blood Transfusion Reactions: Previous Problems w/ Anesthesia Additional Past Anesthesia/Blood Transfusion Reaction / Comm: "Takes longer to wake up from anesthesia." Past Psychological History: ADD/ADHD, Anxiety, Depression Additional Psychological History / Comment(s): Patient states she has a mood disorder. Smoking Status: Former smoker Past Alcohol Use History: None Reported Additional Past Alcohol Use History / Comment(s): SMOKED ON/OFF SINCE 12 YEARS OLD, smoked 1/2 PPD. QUIT 2016 Past Drug Use History: None Reported Additional Drug Use History / Comment(s): Past marijuana last use about 8 years ago. - Past Family History Mother Family Medical History: Cancer, Thyroid Disorder Additional Family Medical History / Comment(s): Mother of LUNG cancer at age 64 yrs. Father Family Medical History: Asthma, COPD, Osteoarthritis (OA) Additional Family Medical History / Comment(s): Father at age 80 yrs. Medications and Allergies Home Medications Medication Instructions Recorded Confirmed Type Albuterol Inhaler [Ventolin Hfa 2 puff INHALATION RT-QID PRN 12/21/13 10/06/19 History Inhaler] Ezetimibe [Zetia] 10 mg PO HS 09/05/14 10/06/19 History Fluticasone Propionate 1 spray EA NOSTRIL BID 11/25/15 10/06/19 History Citalopram Hydrobromide [CeleXA] 40 mg PO DAILY 12/10/15 10/06/19 History OXcarbazepine [Trileptal] 600 mg PO BID 12/10/15 10/06/19 History Levothyroxine Sodium [Synthroid] 50 mcg PO DAILY 03/13/16 10/06/19 History Simethicone [Gas-X] 125 mg PO Q8H PRN 10/19/16 10/06/19 History Omeprazole 40 mg PO BID 11/13/16 10/06/19 History clonazePAM [KlonoPIN] 0.5 mg PO BID PRN 05/03/17 10/06/19 History Methylphenidate HCl 20 mg PO TID 09/09/18 10/06/19 History busPIRone HCL 15 mg PO BID 02/05/19 10/06/19 History Cyclobenzaprine [Flexeril] 10 mg PO BID PRN #60 tab 05/04/19 10/06/19 Rx Fluticasone/Vilanterol [Breo 1 puff INHALATION RT-DAILY 07/24/19 10/06/19 History Ellipta 100-25 Mcg Inhaler] Montelukast Sodium [Singulair] 10 mg PO HS 07/24/19 10/06/19 History Cetirizine HCl [Zyrtec] 10 mg PO HS 09/27/19 10/06/19 History Multivitamins, Thera [Multivitamin 1 tab PO DAILY 09/27/19 10/06/19 History (formulary)] Atorvastatin Calcium [Lipitor] 10 mg PO HS 10/06/19 10/06/19 History Estradiol [Estrace] 0.5 mg PO DAILY 10/06/19 10/06/19 History HYDROcodone/APAP 10-325MG [[place] 1 tab PO Q8H PRN 10/06/19 10/06/19 History 10-325] Allergies Allergy/AdvReac Type Severity Reaction Status Date / Time Penicillins Allergy Rash/Hives Verified 10/06/19 16:14 Surgical - Exam Vital Signs Temp Pulse Resp BP Pulse Ox 97.8 F 83 16 117/80 98 10/06/19 13:29 10/06/19 13:29 10/06/19 13:29 10/06/19 13:29 10/06/19 13:29 Results - Labs 10/09/19 06:54 10/09/19 06:54 Abnormal Lab Results - Last 24 Hours (Table) 10/09/19 10/09/19 Range/Units 06:54 06:54 RBC 3.65 L (3.80-5.40) m/uL Hgb 9.8 L (11.4-16.0) gm/dL Hct 30.4 L (34.0-46.0) % RDW 15.6 H (11.5-15.5) % Sodium 130 L (137-145) mmol/L Calcium 8.2 L (8.4-10.2) mg/dL Microbiology - Last 24 Hours (Table) 10/08/19 04:25 Stool Culture - Preliminary Stool Diabetes panel 10/09/19 Range/Units 06:54 Sodium 130 L (137-145) mmol/L Potassium 4.0 (3.5-5.1) mmol/L Chloride 99 (98-107) mmol/L Carbon Dioxide 23 (22-30) mmol/L BUN 9 (7-17) mg/dL Creatinine 0.64 (0.52-1.04) mg/dL Glucose 81 (74-99) mg/dL Calcium 8.2 L (8.4-10.2) mg/dL Calcium panel 10/09/19 Range/Units 06:54 Calcium 8.2 L (8.4-10.2) mg/dL Pituitary panel 10/09/19 Range/Units 06:54 Sodium 130 L (137-145) mmol/L Potassium 4.0 (3.5-5.1) mmol/L Chloride 99 (98-107) mmol/L Carbon Dioxide 23 (22-30) mmol/L BUN 9 (7-17) mg/dL Creatinine 0.64 (0.52-1.04) mg/dL Glucose 81 (74-99) mg/dL Calcium 8.2 L (8.4-10.2) mg/dL Adrenal panel 10/09/19 Range/Units 06:54 Sodium 130 L (137-145) mmol/L Potassium 4.0 (3.5-5.1) mmol/L Chloride 99 (98-107) mmol/L Carbon Dioxide 23 (22-30) mmol/L BUN 9 (7-17) mg/dL Creatinine 0.64 (0.52-1.04) mg/dL Glucose 81 (74-99) mg/dL Calcium 8.2 L (8.4-10.2) mg/dL
[2019-10-09] MEDS: CYCLOBENZAPRINE 10 MG TAB PO PRN ×2 (14:22→20:02)
[2019-10-09] MEDS: HYDROcodone/APAP 10-325MG 1 EACH TAB PO PRN ×2 (14:45→22:31)
[2019-10-09] MEDS: traMADol 50 MG TAB PO PRN (17:37)
[2019-10-09] MEDS: LORATADINE 10 MG TAB PO SCH (20:01)
[2019-10-09] MEDS: MONTELUKAST 10 MG TAB PO SCH (20:01)
--- NOTE | 2019-10-09 20:01 | PN ---
PROGRESS NOTE DATE OF SERVICE: 10/09/2019 This 54-year-old woman was admitted with abdominal symptoms, suspected to have ileus at this time and surgical evaluation has been sought. No chest pain. No palpitations. No fever. Dr. Alvarenga has seen the patient and recommended EGD tomorrow to evaluate for the hiatal hernia. No chest pain. No palpitations. No fever. EXAM: Alert and oriented x3. Pulse 82, blood pressure 140/70, respiration 17, temperature 98.2, pulse ox 98% on room air. HEENT: Conjunctivae normal. Oral mucosa moist. NECK: No jugular venous distention. No lymph node enlargement. CARDIOVASCULAR: S1, S2. RESPIRATORY: Diminished breath sounds at the bases. A few scattered rhonchi and crackles. ABDOMEN: Soft. Epigastric discomfort. LEGS: No edema, no swelling. NERVOUS SYSTEM: No focal deficits. LABS: WBC 9, hemoglobin 9.8 sodium 130, potassium 4. ASSESSMENT: 1. Subacute diarrhea, possibly infective with dehydration, present on admission with possibly ileus. 2. Abdominal pain, intractable. 3. Hiatal hernia, possibly. 4. Hyponatremia, hypovolemic. 5. Increased WBC. 6. Pleuritic chest pain with possible pleurisy. 7. Chronic obstructive pulmonary disease, asthma, acute exacerbation. 8. Gastroesophageal reflux disease. 9. Hyperlipidemia. 10.History of syncope. 11.History of degenerative joint disease. 12.History of hypothyroidism. 13.History of nephrolithiasis. 14.History of low blood pressure. 15.History of back surgery. 16.History of Arnold-Chiari malformation with herniation. 17.History of ADD/ADHD. 18.History of anxiety, depression. 19.Remote history of nicotine dependence. 20.Obesity with body mass index of 33.8. RECOMMENDATIONS AND DISCUSSION: I recommend to continue current medications, continue to monitor, continue symptomatic treatment. Otherwise, at this time closely follow with Dr. Alvarenga. Possible EGD. Dr. Ding will follow. Guarded prognosis. Further recommendations to follow. MMODL / IJN: [id number] /
[2019-10-09] MEDS: LEVOFLOXACIN 500MG-D5W PMX 500 MG in DEXTROSE/WATER 1 100ML.BAG IVPB SCH (21:18)
[2019-10-09] MEDS: CALCIUM CARBONATE 500 MG CHEWABLE PO PRN (21:20)
[2019-10-10] MEDS: HYDROmorphone 0.5 MG/0.5 ML SYRINGE IVP PRN ×5 (00:31→19:48)
[2019-10-10] MEDS: metroNIDAZOLE-NS PMX 500 MG in SALINE 1 100ML.BAG IVPB SCH ×2 (04:54→12:05)
[2019-10-10] MEDS: traMADol 50 MG TAB PO PRN (05:43)
[2019-10-10] MEDS: ALBUTEROL NEBULIZED 2.5 MG/3 ML INHALATION SCH ×4 (06:59→19:10)
[2019-10-10] MEDS: SYMBICORT 80-4.5 MCG INHALER INHALATION SCH ×2 (06:59→19:10)
[2019-10-10] MEDS: LEVOTHYROXINE 50 MCG TAB PO SCH (07:45)
[2019-10-10] MEDS: METHYLPHENIDATE HCL 10 MG TAB PO SCH ×3 (07:45→17:28)
[2019-10-10] MEDS: HEPARIN SODIUM,PORCINE 5,000 UNIT/ML 1 ML VIAL SQ SCH ×2 (07:46→20:53)
[2019-10-10] MEDS: FLUTICASONE 50MCG/SPRAY NASAL 16GM EA NOSTRIL SCH ×2 (07:48→20:55)
--- NOTE | 2019-10-10 07:48 | PN ---
PROGRESS NOTE DATE OF SERVICE: October 09, 2019. DATE OF DICTATION: October 10, 2019 Patient is 54-year-old pleasant white female admitted to the hospital with epigastric pain for the last few days duration. She has prior history of gastroesophageal reflux disease and hiatal hernia. Surgery was also consulted. Dr. Alvarenga has planned to do an upper endoscopy tomorrow. In the meantime, patient states that she continues to have some abdominal pain, but no nausea, vomiting. PHYSICAL EXAMINATION: On physical examination, she appears comfortable, no apparent distress. Vital signs are stable. Blood pressure is 140/70, pulse rate 82 and afebrile. HEENT: Examination unremarkable. Conjunctivae pink. Sclerae anicteric. Oral cavity, no lesions. NECK: No JVD or lymph node enlargement. CHEST: Clear to auscultation. HEART: Regular rate and rhythm. ABDOMEN: Soft. Tenderness in the epigastric area. Bowel sounds are positive. No organomegaly. EXTREMITIES: No pedal edema. SKIN: No rashes. NEUROLOGIC: Alert and oriented x3. No focal deficits. LABS: Labs from today, WBC 9.1, hemoglobin 9.8, and platelets normal. Basic metabolic panel is within normal limits. IMPRESSION: 1. Abdominal pain in this lady with history of prior hiatal hernia repair. Her pain mostly in the epigastric area. Rule out possibility of peptic ulcer disease. The patient is scheduled for an EGD by Dr. Alvarenga tomorrow. 2. History of gastroesophageal reflux disease. 3. History of chronic obstructive pulmonary disease. RECOMMENDATIONS: 1. Continue with Protonix 40 mg daily. 2. Patient is scheduled for upper endoscopy by Dr. Alvarenga tomorrow and will await the results. Thank you for this consultation. We will follow with you closely. MMODL / IJN: [id number] /
[2019-10-10] MEDS: PANTOPRAZOLE 40 MG TABLET PO SCH ×2 (07:49→17:28)
[2019-10-10] MEDS ORDERED: PROPOFOL 10 MG/ML 20 ML VIAL IV ONE (09:35)
[2019-10-10] MEDS ORDERED: SODIUM CHLORIDE 0.9% 500 ML IV ONE (09:51)
--- NOTE | 2019-10-10 10:02 | P.OP ---
Date of Procedure: 10/10/19 Preoperative Diagnosis: GERD Postoperative Diagnosis: GERD Procedure(s) Performed: EGD Anesthesia: MAC Surgeon: Jeremiah Alvarenga Pathology: other (Antrum) Condition: stable Disposition: PACU Description of Procedure: The patient's placed on the endoscopy table in the lateral position. She received IV sedation. The gastro-/oropharynx passed in the esophagus and into the stomach. Scope was then placed through the pylorus. The first and second portion of duodenum appeared normal. Scope was brought back the antrum this mildly inflamed. A biopsies performed. Scope was unretroflexed for patient. A moderate size hiatal hernia. The GE junction was at 38 7 is. The distal esophagus appeared minimally inflamed. The proximal esophagus appeared normal. Scope was withdrawn for patient.
[2019-10-10] MEDS: CITALOPRAM HYDROBROMIDE 20 MG TAB PO SCH (10:42)
[2019-10-10] MEDS: DICYCLOMINE 20 MG TAB PO SCH ×4 (10:42→20:53)
[2019-10-10] MEDS: MULTIVITAMINS, THERA 1 EACH TAB PO SCH (10:42)
[2019-10-10] MEDS: busPIRone HCl 5 MG TAB PO SCH ×2 (10:43→20:54)
[2019-10-10] MEDS: OXcarbazepine 300 MG TAB PO SCH ×2 (10:43→20:53)
[2019-10-10] MEDS: CHOLESTYRAMINE (WITH SUGAR) 4 GM PACKET PO SCH ×3 (10:47→17:28)
[2019-10-10] MEDS: clonazePAM 0.5 MG TAB PO PRN ×2 (12:05→20:54)
[2019-10-10] MEDS: CYCLOBENZAPRINE 10 MG TAB PO PRN ×2 (13:18→20:53)
[2019-10-10] MEDS: HYDROcodone/APAP 10-325MG 1 EACH TAB PO PRN ×2 (13:18→20:54)
--- NOTE | 2019-10-10 16:51 | PN ---
PROGRESS NOTE DATE OF DICTATION: 10/10/2019 This patient is a 54-year-old pleasant white female who came into the hospital with severe abdominal pain. She had an EGD done by Dr. Alvarenga today which showed moderate- sized hiatal hernia and some esophagitis. Patient continues to be on pantoprazole 40 mg twice daily as well as Bentyl 20 mg 4 times daily. She still complains of diffuse abdominal pain. She reports no nausea, vomiting. She has been on a regular diet, tolerating well. She states that she had no bowel movements today and the last one was 2 nights ago. PHYSICAL EXAMINATION: Appears comfortable. No apparent distress. Vital signs are stable. Blood pressure is 109/64, pulse rate 83, temperature 98.3. HEENT examination unremarkable. Conjunctivae pink. Sclerae anicteric. Oral cavity no lesions. NECK: No JVD or lymph node enlargement. CHEST: Clear to auscultation. HEART: Regular rate and rhythm. ABDOMEN: Minimal tenderness in the epigastric area. Rest of the abdomen was benign. Bowel sounds are positive. No organomegaly. EXTREMITIES: No pedal edema. SKIN: No rashes. NEUROLOGIC: Alert and oriented x3. No focal deficits. LABS: No labs available from today. IMPRESSION: 1. Epigastric pain for the last few days' duration, status post esophagogastroduodenoscopy by Dr. Alvarenga today that showed moderate-sized hiatal hernia and esophagitis, on Protonix 40 mg twice daily. 2. History of irritable bowel syndrome. 3. History of chronic obstructive pulmonary disease. 4. History of anxiety, depression. RECOMMENDATIONS: 1. Continue with Protonix 40 mg twice daily. 2. Small frequent meals. 3. Anti-reflux measures and diet modification. 4. Patient can be discharged home today with outpatient followup as needed. Thank you for this consultation. MMODL / IJN: [id number] /
[2019-10-10] MEDS ORDERED: INFLUENZA VACCINE (6 MOS+) 60 MCG/0.5 ML SYRINGE IM ONE (18:46)
[2019-10-10] MEDS ORDERED: LEVOFLOXACIN 500 MG TAB PO SCH (20:00)
[2019-10-10] MEDS: metroNIDAZOLE 500 MG TAB PO SCH (20:53)
[2019-10-10] MEDS: LORATADINE 10 MG TAB PO SCH (20:54)
[2019-10-10] MEDS: MONTELUKAST 10 MG TAB PO SCH (20:54)
[2019-10-11] MEDS: HYDROmorphone 0.5 MG/0.5 ML SYRINGE IVP PRN (00:34)
[2019-10-11] MEDS: metroNIDAZOLE 500 MG TAB PO SCH (04:58)
[2019-10-11] MEDS: HYDROcodone/APAP 10-325MG 1 EACH TAB PO PRN (04:59)
[2019-10-11 05:14] VITALS: RESP 16
[2019-10-11 08:07] VITALS: BP 111/54; PULSE 95; TEMP 98.5
[2019-10-11] MEDS: SYMBICORT 80-4.5 MCG INHALER INHALATION SCH (08:29)
[2019-10-11] MEDS: ALBUTEROL NEBULIZED 2.5 MG/3 ML INHALATION SCH (08:29)
[2019-10-11] MEDS: MULTIVITAMINS, THERA 1 EACH TAB PO SCH (09:00)
[2019-10-11] MEDS: CITALOPRAM HYDROBROMIDE 20 MG TAB PO SCH (09:00)
[2019-10-11] MEDS: HEPARIN SODIUM,PORCINE 5,000 UNIT/ML 1 ML VIAL SQ SCH (09:00)
[2019-10-11] MEDS: LEVOTHYROXINE 50 MCG TAB PO SCH (09:00)
[2019-10-11] MEDS: OXcarbazepine 300 MG TAB PO SCH (09:00)
[2019-10-11] MEDS: DICYCLOMINE 20 MG TAB PO SCH (09:00)
[2019-10-11] MEDS: busPIRone HCl 5 MG TAB PO SCH (09:01)
[2019-10-11] MEDS: METHYLPHENIDATE HCL 10 MG TAB PO SCH (09:01)
[2019-10-11] MEDS: PANTOPRAZOLE 40 MG TABLET PO SCH (09:01)
[2019-10-11] MEDS: traMADol 50 MG TAB PO PRN (09:02)
[2019-10-11] MEDS: FLUTICASONE 50MCG/SPRAY NASAL 16GM EA NOSTRIL SCH (09:02)
[2019-10-11] MEDS: CHOLESTYRAMINE (WITH SUGAR) 4 GM PACKET PO SCH (10:17)
--- NOTE | 2019-10-12 11:27 | CDI ---
Documentation Clarification Form Date: 10/12/19 From: Zulema Lara CCS Phone: If you have a question about this query, please contact Sandee Prasad, Magician/Illusionist at [phone] between 8am and 5pm. Admit Date: 10/08/19 Discharge Date: 10/11/19 Patient Name: Concetta Acuna Visit Number: [id number] ATTENTION: The Clinical Documentation Specialists (CDI) and [facility] Coding Staff appreciate your assistance in clarifying documentation. Please respond to the clarification below the line at the bottom and electronically sign. The CDI & [facility] Coding staff will review the response and follow-up if needed. Please note: Queries are made part of the Legal Health Record. If you have any questions, please contact the author of this message via ITS. Dear Dr. Leroy, Abdominal pain is documented in the ED, PNs, H&P. Patient history/risk factors: GERD, IBS, Hiatal Hernia, Chronic constipation Clinical Indicators: Abdominal pain, dehydration Radiology: Hiatal hernia Labs: Stool Negative EGD: Antral biopsy- Path Chronic gastritis Treatment: Protonix 40 mg PO Consults: [facility] In your professional opinion, can you please further clarify the cause of the abdominal pain, if known? IBS w/ diarrhea Infectious gastroenteritis Chronic gastritis Ileus NOS GERD w/ esophagitis Chronic constipation Other, please specify Unable to determine Infectious gastroenteritis MTDD
== END 2019-10-11 11:38 | disposition home or self-care (01) | DRG 392 ==
LOC: EC 13:23 → 5NMEDONC 15:59 → OBSVTOIN 10-08 10:32
PROVIDERS: ADMIT Family Medicine; ATTEND Family Medicine
PROC: 3E02340 Introduction of Influenza Vaccine into Muscle, Percutaneous Approach (ICD-10-PCS; 2019-10-10)
PROC: 0DB78ZX Excision of Stomach, Pylorus, Via Natural or Artificial Opening Endoscopic, Diagnostic (ICD-10-PCS; principal; 2019-10-10 11:00)
DX: A09 Infectious gastroenteritis and colitis, unspecified (principal); K56.7 Ileus, unspecified; E87.1 Hypo-osmolality and hyponatremia; J44.1 Chronic obstructive pulmonary disease with (acute) exacerbation; J45.901 Unspecified asthma with (acute) exacerbation; E78.5 Hyperlipidemia, unspecified; F41.9 Anxiety disorder, unspecified; R07.2 Precordial pain; G89.29 Other chronic pain; M19.90 Unspecified osteoarthritis, unspecified site; F32.9 Major depressive disorder, single episode, unspecified; F90.9 Attention-deficit hyperactivity disorder, unspecified type; E86.1 Hypovolemia; E03.9 Hypothyroidism, unspecified; E66.9 Obesity, unspecified; M54.2 Cervicalgia; M54.9 Dorsalgia, unspecified; F39 Unspecified mood [affective] disorder; K44.9 Diaphragmatic hernia without obstruction or gangrene; K59.09 Other constipation; E86.0 Dehydration; K21.0 Gastro-esophageal reflux disease with esophagitis; K58.0 Irritable bowel syndrome with diarrhea; K22.70 Barrett's esophagus without dysplasia; Z68.33 Body mass index [BMI] 33.0-33.9, adult; Z23 Encounter for immunization; Z79.899 Other long term (current) drug therapy; Z79.890 Hormone replacement therapy; Z90.49 Acquired absence of other specified parts of digestive tract; Z87.442 Personal history of urinary calculi; Z87.81 Personal history of (healed) traumatic fracture; Z91.81 History of falling; Z98.1 Arthrodesis status; Z86.19 Personal history of other infectious and parasitic diseases; Z98.890 Other specified postprocedural states; Z90.710 Acquired absence of both cervix and uterus; Z86.69 Personal history of other diseases of the nervous system and sense organs; Z87.891 Personal history of nicotine dependence; Z88.0 Allergy status to penicillin; Z80.1 Family history of malignant neoplasm of trachea, bronchus and lung; Z83.49 Family history of other endocrine, nutritional and metabolic diseases; Z82.5 Family history of asthma and other chronic lower respiratory diseases; Z82.61 Family history of arthritis
CPT/HCPCS: 36415; 43239; 71045; 74018; 74176; 80048; 80053; 83630; 83690; 83735; 84484; 85025; 87045; 87046; 87086; 87324; 87328; 87329; 88305; 90686; 93005; 94640; 96374; 99285

== ENCOUNTER → 2019-10-17 | Outpatient (CLI) | payer MEDICARE, OTHER ==
--- NOTE | 2019-10-17 10:38 | FL ---
EXAMINATION TYPE: FL UGI air w esophagus DATE OF EXAM: 10/17/2019 COMPARISON: Correlation CT 10/06/2019 HISTORY: 54-year-old female, epigastric pain, nausea, vomiting. Prior hiatal hernia repair 10 years a go. TECHNIQUE: A double contrast UGI study is performed. Total fluoroscopy time: 3:05 minutes Total images: 69 FINDINGS: The swallowing mechanism is normal and hypopharyngeal anatomy is preserved. Postsurgical changes of C 4-C7 ACDF. The cervical and thoracic portions have a normal course and caliber. The mucosa is normal and no pers istent filling defect is encountered. There are mild tertiary peristaltic waves and blunted primary and secondary stripping waves resulting in prolonged pooling of contrast within the esophagus when the patient is prone or supine. There is a moderate-sized recurrent hiatal hernia despite prior repair. Gastroesophageal reflux could not be elicited during the course of the exam. The stomach shows normal distensibility, peristalsis, with suggestion of mild generalized fold thicke ngozi. No evidence of any mass or ulcer disease. The duodenal bulb, sweep, and proximal small bowel loops are unremarkable. IMPRESSION: 1. Moderate-sized recurrent hiatus hernia. Some herniated stomach is located above the wrap and suspe ct that the wrap has slipped as well. 2. Esophageal dysmotility with blunted primary and secondary contractions resulting in prolonged pool ing of contrast in the esophagus. 3. Mild generalized gastric fold thickening can be seen with chronic gastritis.
== END | disposition home or self-care (01) ==
LOC: RADFLMAIN 09:17
PROVIDERS: ATTEND Surgery
DX: K44.9 Diaphragmatic hernia without obstruction or gangrene (principal); K22.4 Dyskinesia of esophagus; K29.50 Unspecified chronic gastritis without bleeding; K31.89 Other diseases of stomach and duodenum
CPT/HCPCS: 74246

== ENCOUNTER → 2019-10-19 | Outpatient (CLI) | payer MEDICARE, OTHER ==
[2019-10-19 12:48] VITALS: BP 120/76; PULSE 103; RESP 16
--- NOTE | 2019-10-19 13:10 | P.PAINPG ---
Subjective Progress Note Date: 10/19/19 This is a follow-up visit for this 54 years old female with a chronic history of severe neck pain ,and low back pain, she is diagnosed with cervical spondylosis and occipital neuralgia, and myofascial pain syndrome cervical area , failed back surgery syndrome lumbar area, recently we have done trigger point injection in the cervical area and we did caudal epidural steroid injection with lysis of epidural adhesions, and that helped her neck pain and low back pain, she continued to have some pain, which is increased with any neck movement , she is currently on Glenvil 10/325 every 8 hours and Flexeril 10 mg twice a day, she is able to ambulate, she had no motor or sensory deficit, but the intensity of the pain interfering with her quality of life. Objective - Vital Signs Vital signs: Vital Signs Temp Pulse 103 H 10/19/19 12:44 Resp 16 10/19/19 12:44 BP 120/76 10/19/19 12:44 Pulse Ox 95 10/19/19 12:44 - Exam Physical Examinations : -Constitutiona : Cooperative , not in acute distress . -HEENT : nech : supple , no Lymphadenopathy , normal thyroid size . : eyes : no ptosis , no icterus, no photophobia . : ENT : normal of hearing , normal oropharynx , no Thrush . - Respiratory : Chest clear to auscultations Bilaterally , no wheezing , no Rhonchi . - Cardiovascula : regular rate and rhythem , S1 , S2 , no S3 , no S4. - Gastrointestina : abdomen soft no tenderness , bowel sounds , no organomegally . - Genitourinary : Defferred . - neurologic : Cranial nerve II to XII intact , no focal neurological deffecit . -psychatric : alert , oriented X 3 , appropriate affect , intact judgment and insight . -Lymphatic : no Lymphadenopathy . - musculoskeltal : Cervical Spine motor stregnth in the deltoid and biceps, normal right side , normal Left side motor stregnth biceps and the wrist extensors normal right side ,normal left side . motor stregnth in the triceps muscle . normal Right side , normal Left side deep tendon reflexes normal at the biceps , normal at Brachioradialis , normal at triceps. cervical facet loading test: Positive B ilaterally Trigger point identified in the left- sided cervical paraspinal muscles Lumber spine moter stegnth lower extremities ,thigh and legs 5/5 Right side , 5/5 Left side deep tendon reflexes : normal Knee Jerk , normal ankle Jerk lumber facet Loading Test =positive Right , positive Left Range of motion of the lumbar spine Flexion 30 degrees, extension 10 degrees strait leg raising test = positive at 30 degree Fabere test= positive Right , and positive LT . tenderness over the Sacroiliac joint on the Right , and Left sides Assessment and Plan Plan: Assessment and plan= chronic low back pain secondary to failed back surgery syndrome and lumbar area , lumbar spondylosis with lumbar facet arthropathy . Myofascial pain syndrome cervical. chronic and current use of high-risk medication (opioids) Patient denies any side effects of the current pain medication and the cur rent treatment/medication helping the patient to do activity of daily living , Diagnoses, prognosis, treatment options, including but not limited to physical therapy, medication management, interventional therapies, and surgery, were discussed with the patient All the questions answered The narcotic consent was signed and patient agreed and understood the side effects and complications of opioid treatment. Patient signed the narcotic agreement, and was orally counseled, not to overuse, not to abuse, not to Divert , not tp sell pain medication, and to take it as prescribed only, Patient was counseled not to drive or operate heavy equipment while using narcotic medication, and advised not to use alcohol or any Illicit drugs while using the narcotis. understanding that lack of compliance with any of the above instructions, will likely to cause discharge from, the pain service, not to renew his narcotic prescriptions MAPS Reviwed and it was apropriate . Medication managements= patient will be given prescription refills for Glenvil 10/325 every 8 hours dispense 90 with 1 refill, Flexeril 10 mg 2 times a day with one refill. Interventions= patient could benefit from repeat caudal epidural steroid injection with lysis of epidural adhesions, and trigger point injections left- sided cervical paraspinal muscles , Time with Patient: Less than 30 PQRS Measure Charge Sheet Measure #130: Documentation of Current Meds in Medical Chart: Patient's medications documented in chart Measure #226: Tobacco Use: Screen & Cessation Intervention: Pt not a tobacco user Measure #111: Pneumonia Vaccination: Pneumococcal vaccine NOT administered or previously given Measure #47: Advance Care Plan: Advance care planning discussed & documented, pt chose/unable to give Measure #412: Opioid Treatment Agreement: Documented signed opioid trtmnt agreemnt min once during opioid trtmnt Measure #408: Opioid Therapy Follow-up Evaluation: Patient had f/u eval minimum every 3 months during opioid therapy Measure #317: Preventitive Care & Scrn High Bld Press & F/U: Normal blood pressure, f/u not required Measure #128: Body Mass Index (BMI) Screening & Follow-up: BMI documented ABOVE normal parameters - f/u documented Measure #131: Pain Assessment & Follow-up: Pain positive & plan documented, Foll ow-up scheduled Measure #431: Unhealthy Alcohol Use Preventative Care & Scrn: Patient not identified as an unhealthy alcohol user PQRS Narrative: Smoking Status Former smoker Narcotic Agreement Date Signed 08/24/19 Blood Pressure 120/76 Pain Intensity [Bilateral 7 Lower Back] Pain Intensity [Left Shoulder] 7 Pain Intensity [Left Back] 7 Scale Used Numeric (1 - 10) Hx Alcohol Use (MH) No Home Medications: Ambulatory Orders Albuterol Inhaler [Ventolin Hfa Inhaler] 2 puff INHALATION RT-QID PRN 12/21/13 Ezetimibe [Zetia] 10 mg PO HS 09/05/14 Fluticasone Propionate 1 spray EA NOSTRIL BID 11/25/15 Citalopram Hydrobromide [CeleXA] 40 mg PO DAILY 12/10/15 OXcarbazepine [Trileptal] 600 mg PO BID 12/10/15 Levothyroxine Sodium [Synthroid] 50 mcg PO DAILY 03/13/16 Simethicone [Gas-X] 125 mg PO Q8H PRN 10/19/16 Omeprazole 40 mg PO BID 11/13/16 clonazePAM [KlonoPIN] 0.5 mg PO BID PRN 05/03/17 Methylphenidate HCl 20 mg PO TID 09/09/18 busPIRone HCL 15 mg PO BID 02/05/19 Cyclobenzaprine [Flexeril] 10 mg PO BID PRN #60 tab 05/04/19 Fluticasone/Vilanterol [Breo Ellipta 100-25 Mcg Inhaler] 1 puff INHALATION RT- DAILY 07/24/19 Montelukast Sodium [Singulair] 10 mg PO HS 07/24/19 Cetirizine HCl [Zyrtec] 10 mg PO HS 09/27/19 Multivitamins, Thera [Multivitamin (formulary)] 1 tab PO DAILY 09/27/19 Atorvastatin Calcium [Lipitor] 10 mg PO HS 10/06/19 Estradiol [Estrace] 0.5 mg PO DAILY 10/06/19 HYDROcodone/APAP 10-325MG [[place] 10-325] 1 tab PO Q8H PRN 10/06/19 Albuterol Nebulizer(Dose Unkno 1 applicate IH QID PRN 10/16/19 Controlled Substance Measures - Controlled Substance Measures Is patient prescribed a controlled substance at discharge?: Yes When asked, does pt state using other controlled substances?: No If prescribed controlled substance>3 days was MAPS reviewed?: Yes If Rx opioid, was Start Talking consent form obtained?: Yes If opioid is for acute pain is fill amount 7 days or less?: No Was information provided regarding opioid addiction?: Yes
== END | disposition home or self-care (01) ==
LOC: PNWHC3 12:31
PROVIDERS: ATTEND Specialist
DX: G89.29 Other chronic pain (principal); M47.816 Spondylosis without myelopathy or radiculopathy, lumbar region; M46.96 Unspecified inflammatory spondylopathy, lumbar region; M79.18 Myalgia, other site; M96.1 Postlaminectomy syndrome, not elsewhere classified; Z87.891 Personal history of nicotine dependence; Z79.891 Long term (current) use of opiate analgesic; Z79.51 Long term (current) use of inhaled steroids; Z79.890 Hormone replacement therapy; Z79.899 Other long term (current) drug therapy
CPT/HCPCS: 99211

== ENCOUNTER 2019-10-26 07:26 | Inpatient (IN) | payer MEDICARE, OTHER ==
[~2019-10-26 07:26] MED LIST changes: -BUPIVACAINE (PF) 0.5% 30 ML VIAL ONE; +DEXAMETHASONE SOD PHOSPHATE 10 MG/ML 1 ML VIAL IV ONE; +HEPARIN SODIUM,PORCINE 5,000 UNIT/ML 1 ML VIAL SQ ONE; -IOPAMIDOL M200 10 ML VIAL ONE; +LIDOCAINE 1% (10MG/ML) FOR IV START INTRADERMA PRN; -LIDOCAINE 1% INJ 10MG/ML (20 ML MDV) ONE; -MIDAZOLAM 2 MG/2 ML VIAL ONE; -fentaNYL (PF) 50 MCG/ML 2 ML AMP ONE; -methylPREDNISolone ACETATE 80 MG/ML 1 ML VIAL ONE
[2019-10-26] MEDS ORDERED: ONDANSETRON 4 MG/2 ML VIAL IVP ONE (08:09)
[2019-10-26] MEDS ORDERED: MIDAZOLAM 2 MG/2 ML VIAL IVP ONE (08:10)
[2019-10-26] MEDS ORDERED: fentaNYL (PF) 50 MCG/ML 2 ML AMP IVP ONE ×2 (08:24)
--- NOTE | 2019-10-26 09:04 | P.GSHP ---
History of Present Illness H&P Date: 10/26/19 Chief Complaint: Dysphagia This a 54-year-old female with dysphagia. Patient developed a recurrent hiatal hernia. Patient presents today for laparoscopic repair of hiatal hernia. Past Medical History Past Medical History: Asthma, COPD, GERD/Reflux, Hyperlipidemia, Osteoarthritis (OA), Syncope, Thyroid Disorder Additional Past Medical History / Comment(s): kidney stones, hypoglycemia, chronic neck and L shoulder, lower back pain. Hx L facial and L ankle fxs, sinus problems, vertigo, falls in past due to syncope, low BP at times. Fusion of sacrum and iliac crest-per . 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 Rectocele repair. colonoscopy, d&c Past Anesthesia/Blood Transfusion Reactions: Previous Problems w/ Anesthesia Additional Past Anesthesia/Blood Transfusion Reaction / Comment(s): "Takes longer to wake up from anesthesia." Smoking Status: Former smoker - Past Family History Mother Family Medical History: Cancer Additional Family Medical History / Comment(s): lung Father Family Medical History: Asthma, COPD, Osteoarthritis (OA) Additional Family Medical History / Comment(s): Father at age 80 yrs. Medications and Allergies Home Medications Medication Instructions Recorded Confirmed Type Albuterol Inhaler [Ventolin Hfa 2 puff INHALATION RT-QID PRN 12/21/13 10/26/19 History Inhaler] Ezetimibe [Zetia] 10 mg PO HS 09/05/14 10/26/19 History Fluticasone Propionate 1 spray EA NOSTRIL BID 11/25/15 10/26/19 History Citalopram Hydrobromide [CeleXA] 40 mg PO DAILY 12/10/15 10/26/19 History OXcarbazepine [Trileptal] 600 mg PO BID 12/10/15 10/26/19 History Levothyroxine Sodium [Synthroid] 50 mcg PO DAILY 03/13/16 10/26/19 History Simethicone [Gas-X] 125 mg PO Q8H PRN 10/19/16 10/26/19 History Omeprazole 40 mg PO BID 11/13/16 10/26/19 History clonazePAM [KlonoPIN] 0.5 mg PO BID PRN 05/03/17 10/26/19 History Methylphenidate HCl 20 mg PO TID 09/09/18 10/26/19 History busPIRone HCL 15 mg PO BID 02/05/19 10/26/19 History Cyclobenzaprine [Flexeril] 10 mg PO BID PRN #60 tab 05/04/19 10/26/19 Rx Fluticasone/Vilanterol [Breo 1 puff INHALATION RT-DAILY 07/24/19 10/26/19 History Ellipta 100-25 Mcg Inhaler] Montelukast Sodium [Singulair] 10 mg PO HS 07/24/19 10/26/19 History Cetirizine HCl [Zyrtec] 10 mg PO HS 09/27/19 10/26/19 History Multivitamins, Thera [Multivitamin 1 tab PO DAILY 09/27/19 10/26/19 History (formulary)] Atorvastatin Calcium [Lipitor] 10 mg PO HS 10/06/19 10/26/19 History Estradiol [Estrace] 0.5 mg PO DAILY 10/06/19 10/26/19 History HYDROcodone/APAP 10-325MG [[place] 1 tab PO Q8H PRN 10/06/19 10/26/19 History 10-325] Albuterol Nebulizer(Dose Unkno 1 applicate IH QID PRN 10/16/19 10/26/19 History Allergies Allergy/AdvReac Type Severity Reaction Status Date / Time Penicillins Allergy Rash/Hives Verified 10/26/19 07:47 Surgical - Exam Vital Signs Temp Pulse Resp BP Pulse Ox 98.1 F 78 17 114/62 96 10/26/19 07:46 10/26/19 07:46 10/26/19 07:46 10/26/19 07:46 10/26/19 07:46 - General well developed, well nourished, no distress - Eyes PERRL - ENT normal pinna - Neck no masses - Respiratory normal expansion - Cardiovascular Rhythm: regular - Abdomen Abdomen: soft, non tender Assessment and Plan Assessment: Dysphagia Recurrent hiatal hernia. We'll perform laparoscopic repair of recurrent hiatal hernia. Patient reversed surgery including conversion to the open procedure and injury to the stomach liver spleen Gammie dysphagia recurrent GERD symptoms
[2019-10-26] MEDS ORDERED: ePHEDrine SULFATE/0.9% NACL/PF 50 MG/5 ML SYRINGE IV ONE (09:08)
[2019-10-26] MEDS ORDERED: ROCURONIUM BROMIDE 10 MG/ML 5 ML VIAL IV ONE (09:08)
[2019-10-26] MEDS ORDERED: HYDROmorphone (PF) 1 MG/ML ONE (09:08)
[2019-10-26] MEDS ORDERED: GLYCOPYRROLATE 0.2 MG/ML 2 ML VIAL ONE (09:08)
[2019-10-26] MEDS ORDERED: NEOSTIGMINE 1 MG/ML 10 ML VIAL ONE (09:08)
[2019-10-26] MEDS ORDERED: MIDAZOLAM 2 MG/2 ML VIAL ONE (09:08)
[2019-10-26] MEDS ORDERED: LIDOCAINE 1% INJ 10MG/ML (20 ML MDV) ONE (09:08)
[2019-10-26] MEDS ORDERED: SUCCINYLCHOLINE CHLORIDE 100 MG/5 ML SYR IV ONE (09:08)
[2019-10-26] MEDS ORDERED: fentaNYL (PF) 50 MCG/ML 2 ML AMP ONE (09:08)
[2019-10-26] MEDS ORDERED: PROPOFOL 10 MG/ML 20 ML VIAL IV ONE (09:08)
[2019-10-26] MEDS ORDERED: BUPIVACAINE (PF) 0.25% 30 ML VIAL SQ ONE (09:41)
--- NOTE | 2019-10-26 10:31 | P.OP ---
Date of Procedure: 10/26/19 Preoperative Diagnosis: Dysphagia Recurrent hiatal hernia Postoperative Diagnosis: Dysphagia Recurrent hiatal hernia Procedure(s) Performed: Laparoscopic repair of hiatal hernia with mesh Anesthesia: LEXA Surgeon: Jeremiah Alvarenga Estimated Blood Loss (ml): 10 Pathology: none sent Condition: stable Disposition: PACU Description of Procedure: The patient was placed on the operating table in the supine position. She received general anesthesia. She was then placed in dorsal lithotomy position. Her abdomen was prepped and draped in the usual sterile fashion. The skin incision sites were anesthetized with 1% local Xylocaine. The skin was incised in the left periumbilical area with an 11 scalpel. Using a 5 mm blade was trocar under direct visitation the peritoneal cavity was entered. And then insufflated. After adequate insufflation the laparoscope was placed back into the peritoneal cavity. Next a 5 mm trocar was placed in the right epigastric and then the right lateral position. Another 5 mm trochars placed in the left lateral position. Another 5 mm trocar placed in the left epigastric position. And the original left periumbilical trocar was exchanged for a 10 mm trocar. The left lateral lobe liver was retracted. The patient had a large hiatal hernia. Using the Harmonic scissors the crural defect was dissected in the Harmonic scissors were used to dissect the hiatal hernia sac. The fundus of the stomach was completely mobilized by using the Harmonic scissors to divide short gastric vessels. The stomach was reduced into the peritoneal cavity. The crura was dissected with the Harmonic scissors. And then the crural repair was performed using 2-0 Ethibond suture. The Axis bio A mesh was then placed over top of the repair and secured with 2-0 Ethibond suture. Next a 58-E[place]ian bougie dilator was placed the patient's oral pharynx and into the esophagus into the stomach by the CONSTRUCTION TRENCH DIGGER. The fundoplication was then performed using 2-0 Ethibond suture. The patient had a previous fundoplication which was left intact.. At this point the dilator was withdrawn. The stomach and esophagus were inspected there is known to any injury to the stomach or esophagus. The abdomen was irrigated there is no bleeding seen. The trochars are withdrawn. Skin was closed interrupted 3-0 Monocryl suture. Dermabond was applied. Patient tolerated procedure well and was sent to recovery in stable condition.
[2019-10-26] MEDS ORDERED: LACTATED RINGERS 1,000 ML IV ONE ×2 (10:33→11:34)
[2019-10-26] MEDS: fentaNYL (PF) 50 MCG/ML 2 ML AMP IV PRN ×2 (10:52→11:13)
[2019-10-26] MEDS: HYDROmorphone 1 MG/ML 1 ML SYRINGE IVP ONE ×2 (11:30→11:35)
[2019-10-26] MEDS: METOCLOPRAMIDE 5 MG/ML 2 ML VIAL IVP SCH ×3 (13:27→23:35)
--- NOTE | 2019-10-26 13:42 | FL ---
SINGLE CONTRAST ESOPHAGRAM: CLINICAL HISTORY: 54-year-old female rule out leak/obstruction, status post recurrent hiatal hernia repair. TECHNIQUE: Single contrast exam performed with 2 swallows of Omnipaque 350 contrast. Total fluoroscopy time: 1 minute 6 seconds. Total images: 5. FINDINGS: The patient swallowed oral contrast without difficulty or delay. However, contrast within the distal esophagus and the patient was only allowed 2 swallows. We waited approximately 3 minutes and encoura ged the patient to dry swallow. Intraesophageal reflux from the repeated contractions demonstrated. N o passage into the stomach. No leak at this level. Trace postsurgical free air on the right. IMPRESSION: Severe obstruction status post repair of recurrent hiatal hernia. Only 2 swallows were allowed and re main pooled in the distal esophagus. Bouts of intraesophageal reflux are encountered. No leak at this level. Follow-up is recommended. Trace post surgical free air on right.
[2019-10-26] MEDS: D5-0.45% NACL WITH KCL 20MEQ/L 1,000 ML IV SCH ×2 (13:48→20:17)
[2019-10-26 14:01] LABS: Basophils % (A) 0 %; Eosinophils % (A) 0 %; HCT 33.4 % (34.0-46.0); HGB 10.6 gm/dL (11.4-16.0); Lymphocytes # (A) 0.5 k/uL (1.0-4.8); Lymphocytes % (A) 3 %; MCH 25.9 pg (25.0-35.0); MCHC 31.6 g/dL (31.0-37.0); MCV 81.9 fL (80.0-100.0); Mean Platelet Volume 7.9; Monocytes # (A) 0.4 k/uL (0-1.0); Monocytes % (A) 2 %; Neutrophils # (A) 16.4 k/uL (1.3-7.7); Neutrophils % (A) 95 %; Platelet Count 323 k/uL (150-450); RBC 4.09 m/uL (3.80-5.40); RDW 15.4 % (11.5-15.5); WBC 17.3 k/uL (3.8-10.6)
[2019-10-26 14:18] LABS: African American GFR (CKD) >90 (>60 ml/min/1.73 sqM); Anion Gap 10 mmol/L; Blood Urea Nitrogen 8 mg/dL (7-17); Calcium 8.4 mg/dL (8.4-10.2); Carbon Dioxide 23 mmol/L (22-30); Chloride 96 mmol/L (98-107); Glucose 150 mg/dL (74-99); Non-African American GFR(CKD) >90 (>60 ml/min/1.73 sqM); Sodium 129 mmol/L (137-145)
[2019-10-26] MEDS: HYDROmorphone 1 MG/ML 1 ML SYRINGE IVP PRN ×2 (15:39→19:51)
[2019-10-26 15:57] VITALS: BMI 34.8
[2019-10-26] MEDS: FAMOTIDINE 20 MG/2 ML VIAL IV SCH (19:51)
[2019-10-26] MEDS: LORazepam 2 MG/ML INJ IV PRN (20:37)
[2019-10-27] MEDS: HYDROmorphone 1 MG/ML 1 ML SYRINGE IVP PRN ×6 (00:13→21:09)
[2019-10-27] MEDS: D5-0.45% NACL WITH KCL 20MEQ/L 1,000 ML IV SCH ×3 (04:01→19:27)
[2019-10-27] MEDS: METOCLOPRAMIDE 5 MG/ML 2 ML VIAL IVP SCH ×4 (04:56→23:15)
--- NOTE | 2019-10-27 07:19 | FL ---
EXAMINATION TYPE: FL fluoroscopy <1hr DATE OF EXAM: 10/26/2019 CLINICAL HISTORY: Status post hiatal hernia repair. TECHNIQUE: Fluoroscopy. COMPARISON: Esophagram dated 10/26/2019 1:03 PM. FINDINGS: 2 fluoroscopic images were obtained of the distal esophagus demonstrating retained contrast in the distal esophagus and no contrast overlying the stomach or small bowel. 36 seconds of fluorosc opy time were utilized. IMPRESSION: Images indicate severe obstruction at the gastroesophageal junction.
[2019-10-27] MEDS ORDERED: DEXAMETHASONE SOD PHOSPHATE 4 MG/ML 1 ML VIAL IV PRN (07:54)
[2019-10-27] MEDS: ENOXAPARIN 40 MG/0.4 ML SYRINGE SQ SCH (08:53)
[2019-10-27] MEDS: FAMOTIDINE 20 MG/2 ML VIAL IV SCH ×2 (08:53→21:08)
[2019-10-27] MEDS: DEXAMETHASONE SOD PHOSPHATE 4 MG/ML 1 ML VIAL IV SCH ×4 (08:53→23:15)
--- NOTE | 2019-10-27 09:58 | FL ---
EXAMINATION TYPE: FL UGI w esophagus DATE OF EXAM: 10/27/2019 COMPARISON: Fluoroscopy of 10/26/2019 HISTORY: Status post hiatal hernia repair TECHNIQUE: 51 seconds of fluoroscopy time was utilized to evaluate obstruction status post hiatal her kelley repair. Contrast was given yesterday. 8 fluoroscopic images obtained today at 9:17 AM. FINDINGS/IMPRESSION: Persistent complete obstruction at the surgical site within the gastroesophageal junction.
--- NOTE | 2019-10-27 12:45 | P.PN ---
Subjective Progress Note Date: 10/27/19 CHIEF COMPLAINT: Recurrent hiatal hernia HISTORY OF PRESENT ILLNESS: Patient is status post laparoscopic repair of hiatal hernia with mesh. Postoperative day #1. Postoperative esophagram reveals severe obstruction. Patient remains nothing by mouth. Vital signs stable. PHYSICAL EXAM: VITAL SIGNS: Reviewed. GENERAL: Well-developed in no acute distress. HEENT: No sclera icterus. Extraocular movements grossly intact. Moist buccal mucosa. Head is atraumatic, normocephalic. ABDOMEN: Soft. Nondistended. Surgical site clean and intact. NEUROLOGIC: Alert and oriented. Cranial nerves II through XII grossly intact. ASSESSMENT: 1. Dysphasia, recurrent hiatal hernia, status post laparoscopic repair of hiatal hernia with mesh PLAN: -Nothing by mouth. Continue IV fluids -Decadron 4 mg IV every 6 hours scheduled -Reglan 10 mg IV every 6 hours scheduled -Repeat esophagram ordered for Wednesday -Possible diagnostic lap on Wednesday with Dr. Alvarenga pending repeat esophagram Nurse practitioner note has been reviewed by physician. Signing provider agrees with the documented findings, assessment, and plan of care. Objective - Vital Signs Vital signs: Vital Signs Temp 98.9 F 10/27/19 11:40 Pulse 94 10/27/19 11:40 Resp 16 10/27/19 11:40 BP 149/82 10/27/19 11:40 Pulse Ox 91 L 10/27/19 11:40 Intake & Output 10/26/19 10/27/19 10/27/19 18:59 06:59 18:59 Intake Total 1825 1000 Output Total 10 Balance 1815 1000 Weight 86.4 kg Intake: IV 1700 Intake, IV Titration 125 1000 Amount D5-0.45% NaCl with KCl 125 1000 20Meq/l 1,000 ml @ 125 mls/hr IV .Q8H ANN Rx#: [id number] Output: Estimated Blood Loss 10 Other: Voiding Method Toilet # Voids 1 2 - Labs CBC & Chem 7: 10/26/19 13:44 10/26/19 13:44 Labs: Abnormal Lab Results - Last 24 Hours (Table) 10/26/19 10/26/19 Range/Units 13:44 13:44 WBC 17.3 H (3.8-10.6) k/uL Hgb 10.6 L (11.4-16.0) gm/dL Hct 33.4 L (34.0-46.0) % Neutrophils # 16.4 H (1.3-7.7) k/uL Lymphocytes # 0.5 L (1.0-4.8) k/uL Sodium 129 L (137-145) mmol/L Chloride 96 L (98-107) mmol/L Glucose 150 H (74-99) mg/dL
--- NOTE | 2019-10-27 16:53 | P.CONS ---
History of Present Illness - Reason for Consult Consult date: 10/27/19 Medical management of COPD, gastroesophageal reflux disease, hypothyroidism Requesting physician: Jeremiah Alvarenga - Chief Complaint Dysphagia - History of Present Illness This 54-year-old female with history of chronic intermittent asthma, COPD, gastroesophageal reflux disease, hyperlipidemia, hypothyroidism, osteoarthritis, ADD/ADHD, anxiety, depression, former nicotine dependence, status post laparoscopic repair of hiatal hernia. Tolerated procedure well. Occasional nausea. Reports did not pass the esophagogram; official report pending. NPO. Maintained on IV fluid hydration. Continues on scheduled Decadron, Reglan. No flatus, no bowel movement. Denies chest pain, palpitations or shortness of breath. Afebrile, no labs today. Review of Systems Constitutional: Denied any fever. Cardio vascular: denied any chest pain, palpitations Gastrointestinal reports mild nausea, no vomiting Pulmonary: Denied any shortness of breath cough Neurologic denied any new focal deficits ROS Statement: Those systems with pertinent positive or pertinent negative responses have been documented in the HPI. ROS Other: All systems not noted in ROS Statement are negative. Past Medical History Past Medical History: Asthma, COPD, GERD/Reflux, Hyperlipidemia, Osteoarthritis (OA), Syncope, Thyroid Disorder Additional Past Medical History / Comment(s): kidney stones, hypoglycemia, chronic neck and L shoulder, lower back pain. Hx L facial and L ankle fxs, sinus problems, vertigo, falls in past due to syncope, low BP at times. Fusion of sacrum and iliac crest-per . 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 Rectocele repair. colonoscopy, d&c Past Anesthesia/Blood Transfusion Reactions: Previous Problems w/ Anesthesia Additional Past Anesthesia/Blood Transfusion Reaction / Comm: "Takes longer to wake up from anesthesia." Smoking Status: Former smoker - Past Family History Mother Family Medical History: Cancer Additional Family Medical History / Comment(s): lung Father Family Medical History: Asthma, COPD, Osteoarthritis (OA) Additional Family Medical History / Comment(s): Father at age 80 yrs. Medications and Allergies Home Medications Medication Instructions Recorded Confirmed Type Albuterol Inhaler [Ventolin Hfa 2 puff INHALATION RT-QID PRN 12/21/13 10/26/19 History Inhaler] Ezetimibe [Zetia] 10 mg PO HS 09/05/14 10/26/19 History Fluticasone Propionate 1 spray EA NOSTRIL BID 11/25/15 10/26/19 History Citalopram Hydrobromide [CeleXA] 40 mg PO DAILY 12/10/15 10/26/19 History OXcarbazepine [Trileptal] 600 mg PO BID 12/10/15 10/26/19 History Levothyroxine Sodium [Synthroid] 50 mcg PO DAILY 03/13/16 10/26/19 History Simethicone [Gas-X] 125 mg PO Q8H PRN 10/19/16 10/26/19 History Omeprazole 40 mg PO BID 11/13/16 10/26/19 History clonazePAM [KlonoPIN] 0.5 mg PO BID PRN 05/03/17 10/26/19 History Methylphenidate HCl 20 mg PO TID 09/09/18 10/26/19 History busPIRone HCL 15 mg PO BID 02/05/19 10/26/19 History Cyclobenzaprine [Flexeril] 10 mg PO BID PRN #60 tab 05/04/19 10/26/19 Rx Fluticasone/Vilanterol [Breo 1 puff INHALATION RT-DAILY 07/24/19 10/26/19 History Ellipta 100-25 Mcg Inhaler] Montelukast Sodium [Singulair] 10 mg PO HS 07/24/19 10/26/19 History Cetirizine HCl [Zyrtec] 10 mg PO HS 09/27/19 10/26/19 History Multivitamins, Thera [Multivitamin 1 tab PO DAILY 09/27/19 10/26/19 History (formulary)] Atorvastatin Calcium [Lipitor] 10 mg PO HS 10/06/19 10/26/19 History Estradiol [Estrace] 0.5 mg PO DAILY 10/06/19 10/26/19 History HYDROcodone/APAP 10-325MG [[place] 1 tab PO Q8H PRN 10/06/19 10/26/19 History 10-325] Albuterol Nebulizer(Dose Unkno 1 applicate IH QID PRN 10/16/19 10/26/19 History Allergies Allergy/AdvReac Type Severity Reaction Status Date / Time Penicillins Allergy Rash/Hives Verified 10/26/19 07:47 Physical Exam Vitals: Vital Signs Temp Pulse Resp BP Pulse Ox 10/27/19 11:40 98.9 F 94 16 149/82 91 L 10/27/19 04:57 98 F 88 16 119/63 94 L 10/26/19 21:11 98.5 F 97 16 114/70 94 L Intake and Output 10/27/19 10/27/19 10/27/19 06:59 14:59 22:59 Intake Total 1000 Balance 1000 Intake: Intake, IV Titration 1000 Amount D5-0.45% NaCl with KCl 1000 20Meq/l 1,000 ml @ 125 mls/hr IV .Q8H ANN Rx#: [id number] Other: # Voids 2 PHYSICAL EXAM: VITAL SIGNS: As above GENERAL: Sitting up in bed, no acute distress HEENT: Conjunctivae normal. eyes normal. NECK: No JVD. No thyroid enlargement. No LNs CARDIOVASCULAR: S1, S2 regular.. No murmur RESPIRATION: Breath sounds diminished in the bases. No rhonchi or crackles. No bronchial breathing. ABDOMEN: Soft, status post surgery, laparoscopic sites clean, dry, well approximated. No guarding. Bowel sounds heard. LEGS: No edema. no swelling PSYCHIATRY: Alert and oriented X3, mood and affect normal. NERVOUS SYSTEM: Cranial N 2-12 grossly normal. Moves all 4 limbs. Diffuse weakness No focal deficits. Strength and sensation grossly intact.. Skin: no rash Lymphatic system. No LN neck axilla. Results CBC & Chem 7: 10/26/19 13:44 10/26/19 13:44 Assessment and Plan Assessment: Status post laparoscopic repair of hiatal hernia with mesh Recent EGD reporting moderate hiatal hernia, esophagitis History of IBS COPD, stable Anxiety Depression Plan: Continue on current medication regime ,monitoring and symptomatic treatment. Pain management/Decadron/Reglan as per primary. NPO. IV fluid hydration as ordered. Increase ambulation as tolerated. Aggressive pulmonary toileting with incentive spirometer reinforced. Home meds have been reviewed, not yet resumed as patient has yet to pass esophagram. Further recommendations to follow. Thank you Dr. Alvarenga for the consult. The impression and plan of care has been dictated as directed. : I performed a history and examination of this patient, discussed the same with the dictator. I agree with the dictator's note ,documented as a scribe. Any additional findings or plans will be noted.
[2019-10-27 18:40] LABS: HCT 33.5 % (34.0-46.0); HGB 11.1 gm/dL (11.4-16.0); MCHC 33.3 g/dL (31.0-37.0); MCV 81.3 fL (80.0-100.0); Mean Platelet Volume 8.7; Platelet Count 327 k/uL (150-450); RBC 4.12 m/uL (3.80-5.40); RDW 15.7 % (11.5-15.5); WBC 15.3 k/uL (3.8-10.6)
[2019-10-27 18:45] LABS: African American GFR (CKD) >90 (>60 ml/min/1.73 sqM); Anion Gap 11 mmol/L; Blood Urea Nitrogen 4 mg/dL (7-17); Calcium 8.9 mg/dL (8.4-10.2); Carbon Dioxide 21 mmol/L (22-30); Chloride 99 mmol/L (98-107); Glucose 138 mg/dL (74-99); Non-African American GFR(CKD) >90 (>60 ml/min/1.73 sqM); Sodium 131 mmol/L (137-145)
[2019-10-27 18:46] LABS: Potassium 5.1 mmol/L (3.5-5.1)
[2019-10-27] MEDS: LORazepam 2 MG/ML INJ IV PRN (19:28)
[2019-10-28] MEDS: HYDROmorphone 1 MG/ML 1 ML SYRINGE IVP PRN ×6 (01:09→20:55)
[2019-10-28] MEDS: D5-0.45% NACL WITH KCL 20MEQ/L 1,000 ML IV SCH ×3 (03:09→17:01)
[2019-10-28] MEDS: METOCLOPRAMIDE 5 MG/ML 2 ML VIAL IVP SCH ×4 (05:07→23:48)
[2019-10-28] MEDS: DEXAMETHASONE SOD PHOSPHATE 4 MG/ML 1 ML VIAL IV SCH ×4 (05:07→23:48)
[2019-10-28] MEDS: FAMOTIDINE 20 MG/2 ML VIAL IV SCH ×2 (07:45→20:55)
[2019-10-28] MEDS: ENOXAPARIN 40 MG/0.4 ML SYRINGE SQ SCH (07:46)
[2019-10-28 08:22] LABS: Basophils % (A) 0 %; Eosinophils % (A) 0 %; HCT 32.7 % (34.0-46.0); HGB 10.6 gm/dL (11.4-16.0); Lymphocytes # (A) 0.8 k/uL (1.0-4.8); Lymphocytes % (A) 6 %; MCH 26.7 pg (25.0-35.0); MCHC 32.6 g/dL (31.0-37.0); MCV 81.8 fL (80.0-100.0); Mean Platelet Volume 7.4; Monocytes # (A) 0.4 k/uL (0-1.0); Monocytes % (A) 3 %; Neutrophils # (A) 11.5 k/uL (1.3-7.7); Neutrophils % (A) 90 %; Platelet Count 327 k/uL (150-450); RBC 3.99 m/uL (3.80-5.40); RDW 15.5 % (11.5-15.5); WBC 12.9 k/uL (3.8-10.6)
[2019-10-28 08:33] LABS: African American GFR (CKD) >90 (>60 ml/min/1.73 sqM); Anion Gap 7 mmol/L; Blood Urea Nitrogen 5 mg/dL (7-17); Calcium 8.9 mg/dL (8.4-10.2); Carbon Dioxide 27 mmol/L (22-30); Chloride 98 mmol/L (98-107); Glucose 139 mg/dL (74-99); Non-African American GFR(CKD) >90 (>60 ml/min/1.73 sqM); Potassium 5.3 mmol/L (3.5-5.1); Sodium 132 mmol/L (137-145)
[2019-10-28] MEDS ORDERED: LORazepam 2 MG/ML INJ IV PRN (11:07)
[2019-10-28] MEDS: LORazepam 2 MG/ML INJ IV PRN ×2 (11:47→20:55)
--- NOTE | 2019-10-28 13:44 | P.PN ---
Subjective Progress Note Date: 10/28/19 CHIEF COMPLAINT: Gastroesophageal reflux disease HISTORY OF PRESENT ILLNESS: The patient is a 54-year-old female status post hiatal hernia repair, 10/26/2019. She feels better than yesterday. "I can't drink water, it gets stuck." She is resting comfortably. She reports intermittent indigestion. ROS: No reports of nausea and vomiting. No bowel movements. No fevers or chills. No new chest pain. No productive sputum PHYSICAL EXAM: VITAL SIGNS: Reviewed CONSTITUTIONAL: Well developed and in no acute distress. EYES: Conjuctivae without sclera icterus. Extraocular movements grossly intact. HEAD, EARS, NOSE, THROAT: Moist buccal mucosa. Head is atraumatic, normocephalic. Hears conversational speech. No nasal drainage. NECK: Supple. No thyroidomegaly. RESPIRATORY: Non-labored respirations and equal bilateral excursions. CARDIOVASCULAR: Palpable 2+ radial pulses. Regular rate. Regular rhythm. ABDOMEN: Incisions clean dry and intact. Soft. No peritonitis. MUSCULOSKELETAL: No gross deformity of the lower extremities noted. No clubbing. No cyanosis. SKIN: Good skin turgor. Well perfused. NEUROLOGIC: Cranial nerves I through XII grossly intact. No focal or lateralizing signs. PSYCH: Appropriate affect. Alert and oriented to person, place and time. CLINICAL LABS: White blood cell count improved from 17,000-12,900 IMAGES: Esophagram independent review demonstrates complete obstruction and GE junction. ASSESSMENT: 1. Status post hiatal hernia repair with obstruction PLAN: 1. Continue with Decadron 2. Recommend simethicone for gas bloat. Objective - Vital Signs Vital signs: Vital Signs Temp 97.5 F L 10/28/19 05:00 Pulse 75 10/28/19 05:00 Resp 18 10/28/19 05:00 BP 115/68 10/28/19 05:00 Pulse Ox 90 L 10/28/19 05:00 Intake & Output 10/27/19 10/28/19 10/28/19 18:59 06:59 18:59 Intake Total 1000 500 Balance 1000 500 Intake: Intake, IV Titration 1000 500 Amount D5-0.45% NaCl with KCl 1000 500 20Meq/l 1,000 ml @ 125 mls/hr IV .Q8H [facility] Rx#: [id number] Other: Voiding Method Toilet # Voids 2 1 - Labs CBC & Chem 7: 10/28/19 07:40 10/28/19 07:40 Labs: Abnormal Lab Results - Last 24 Hours (Table) 10/27/19 10/27/19 10/28/19 Range/Units 18:00 18:00 07:40 WBC 15.3 H 12.9 H (3.8-10.6) k/uL Hgb 11.1 L 10.6 L (11.4-16.0) gm/dL Hct 33.5 L 32.7 L (34.0-46.0) % RDW 15.7 H (11.5-15.5) % Neutrophils # 11.5 H (1.3-7.7) k/uL Lymphocytes # 0.8 L (1.0-4.8) k/uL Sodium 131 L (137-145) mmol/L Potassium (3.5-5.1) mmol/L Carbon Dioxide 21 L (22-30) mmol/L BUN 4 L (7-17) mg/dL Creatinine 0.51 L (0.52-1.04) mg/dL Glucose 138 H (74-99) mg/dL 10/28/19 Range/Units 07:40 WBC (3.8-10.6) k/uL Hgb (11.4-16.0) gm/dL Hct (34.0-46.0) % RDW (11.5-15.5) % Neutrophils # (1.3-7.7) k/uL Lymphocytes # (1.0-4.8) k/uL Sodium 132 L (137-145) mmol/L Potassium 5.3 H (3.5-5.1) mmol/L Carbon Dioxide (22-30) mmol/L BUN 5 L (7-17) mg/dL Creatinine (0.52-1.04) mg/dL Glucose 139 H (74-99) mg/dL Assessment and Plan (1) Esophageal obstruction Current Visit: Yes Status: Acute Code(s): K22.2 - ESOPHAGEAL OBSTRUCTION SNOMED Code(s): 410916437 (2) Hiatal hernia Current Visit: No Status: Acute Code(s): K44.9 - DIAPHRAGMATIC HERNIA WITHOUT OBSTRUCTION OR GANGRENE SNOMED Code(s): 97661160
[2019-10-28] MEDS ORDERED: BUDESONIDE 1 MG/2 ML NEBU INHALATION SCH (14:54)
[2019-10-28] MEDS ORDERED: IPRATROPIUM-ALBUTEROL 3 ML NEB INHALATION PRN (14:54)
[2019-10-28] MEDS: SIMETHICONE 40 MG/0.6 ML DROPS 2,000 MG/30 ML BOTTLE PO SCH ×3 (15:51→21:11)
[2019-10-28] MEDS: METHYLPHENIDATE HCL 10 MG TAB PO SCH ×2 (16:08→21:09)
[2019-10-28 16:36] LABS: ALT 34 U/L (4-34); AST 30 U/L (14-36); African American GFR (CKD) >90 (>60 ml/min/1.73 sqM); Albumin 3.9 g/dL (3.5-5.0); Alkaline Phosphatase 93 U/L (38-126); Anion Gap 5 mmol/L; Blood Urea Nitrogen 6 mg/dL (7-17); Calcium 8.9 mg/dL (8.4-10.2); Carbon Dioxide 28 mmol/L (22-30); Chloride 100 mmol/L (98-107); Glucose 158 mg/dL (74-99); Non-African American GFR(CKD) >90 (>60 ml/min/1.73 sqM); Potassium 4.6 mmol/L (3.5-5.1); Sodium 133 mmol/L (137-145); Total Bilirubin 0.2 mg/dL (0.2-1.3); Total Protein 6.8 g/dL (6.3-8.2)
[2019-10-28] MEDS: BUDESONIDE 1 MG/2 ML NEBU INHALATION SCH ×2 (17:12→22:07)
[2019-10-28] MEDS: IPRATROPIUM-ALBUTEROL 3 ML NEB INHALATION SCH ×2 (17:13→22:07)
[2019-10-28] MEDS ORDERED: PANTOPRAZOLE 40 MG TABLET PO SCH (17:30)
--- NOTE | 2019-10-28 18:33 | PN ---
PROGRESS NOTE I am covering for Dr. Ding. DATE OF SERVICE: 10/28/2019 This 54-year-old woman who was admitted after laparoscopic repair of the hiatal hernia with mesh for dysphagia, recurrent hiatal hernia is being closely monitored at this time. The patient had previously significant issues with Pulmonary previously. Currently the white count is slightly elevated at 12.9, sodium 132, potassium 5.3. Patient being closely monitored. Glucose 133. PAST MEDICAL HISTORY: Reviewed. REVIEW OF SYSTEMS: Cardiovascular: No angina or palpitations. RESPIRATORY: As mentioned earlier. GASTROINTESTINAL: As mentioned earlier. no dysuria. Nervous systems: No numbness or weakness. MEDICATIONS: Reviewed and include: 1. Dexamethasone. 2. Decadron 4 mg IV q.6h p.r.n. 3. Lovenox 40 mg subcu daily. 4. Pepcid 20 mg b.i.d. 5. Dilaudid p.r.n. 6. Ativan. 7. Reglan. 8. Zofran. 9. Mylicon. PHYSICAL EXAM: Patient is alert, oriented x3. Pulse 66. Blood pressure 130/77, respiration 17, temperature 97.7, pulse ox 94% on room air. HEENT: Conjunctivae normal. NECK: No JVD. CARDIOVASCULAR: S1, S2. RESPIRATORY SYSTEM: Breath sounds diminished at the bases. A few scattered rhonchi and crackles. ABDOMEN: Soft, status post surgery. LEGS are no edema. No swelling. CENTRAL NERVOUS SYSTEM: No focal deficits. LABS: WBC 12.9, hemoglobin 10.6, sodium 130, potassium 5.3. ASSESSMENT: 1. Status post laparoscopic repair of the hiatal hernia with mesh for recurrent hiatal hernia. 2. Hyponatremia. 3. Hyperkalemia mild. 4. Increased WBC possibly reactive. 5. Anemia of chronic disease. 6. Chronic obstructive pulmonary disease/asthma history. 7. History of gastroesophageal reflux disease. 8. Hyperlipidemia. 9. History of syncope. 10.History of degenerative joint disease. 11.Hypothyroidism. 12.History of nephrolithiasis. 13.History of back surgery. 14.History of Arnold-Chiari malformation with herniation. 15.History of attention-deficit disorder/attention-deficit/hyperactivity disorder. 16.Anxiety/depression. 17.Remote history of nicotine dependence. 18.Obesity with body mass index of 34.8. RECOMMENDATIONS AND DISCUSSION: This 54-year-old woman who presented with multiple complex medical issues, we will monitor the patient closely. Continue the current medications, management and symptomatic treatment. I would recommend resume the home medications, bronchodilators, incentive spirometry. Closely follow with surgery. Guarded prognosis. Further recommendations to follow. See orders for details. MMODL / IJN: [id number] /
[2019-10-28] MEDS: PANTOPRAZOLE 40 MG/10 ML VIAL IVP SCH (20:54)
[2019-10-28] MEDS: busPIRone HCl 5 MG TAB PO SCH (21:08)
[2019-10-28] MEDS: MONTELUKAST 10 MG TAB PO SCH (21:08)
[2019-10-28] MEDS: OXcarbazepine 300 MG TAB PO SCH (21:08)
[2019-10-29] MEDS: D5-0.45% NACL WITH KCL 20MEQ/L 1,000 ML IV SCH ×2 (03:03→10:42)
[2019-10-29] MEDS: HYDROmorphone 1 MG/ML 1 ML SYRINGE IVP PRN ×6 (03:10→23:47)
[2019-10-29] MEDS: LEVOTHYROXINE 50 MCG TAB PO SCH (05:57)
[2019-10-29] MEDS: METOCLOPRAMIDE 5 MG/ML 2 ML VIAL IVP SCH ×4 (05:58→23:47)
[2019-10-29] MEDS: DEXAMETHASONE SOD PHOSPHATE 4 MG/ML 1 ML VIAL IV SCH ×4 (05:58→23:47)
[2019-10-29] MEDS: CITALOPRAM HYDROBROMIDE 20 MG TAB PO SCH (06:55)
[2019-10-29] MEDS: busPIRone HCl 5 MG TAB PO SCH ×2 (06:55→19:27)
[2019-10-29] MEDS: OXcarbazepine 300 MG TAB PO SCH ×2 (06:56→19:27)
[2019-10-29] MEDS: METHYLPHENIDATE HCL 10 MG TAB PO SCH ×3 (06:56→19:27)
[2019-10-29] MEDS: FAMOTIDINE 20 MG/2 ML VIAL IV SCH ×2 (07:00→19:55)
[2019-10-29] MEDS: PANTOPRAZOLE 40 MG/10 ML VIAL IVP SCH ×2 (07:00→19:56)
[2019-10-29] MEDS: SIMETHICONE 40 MG/0.6 ML DROPS 2,000 MG/30 ML BOTTLE PO SCH ×4 (07:01→22:26)
[2019-10-29] MEDS: ENOXAPARIN 40 MG/0.4 ML SYRINGE SQ SCH (07:01)
[2019-10-29] MEDS: IPRATROPIUM-ALBUTEROL 3 ML NEB INHALATION SCH ×4 (07:27→18:57)
[2019-10-29] MEDS: BUDESONIDE 1 MG/2 ML NEBU INHALATION SCH ×2 (07:27→18:57)
[2019-10-29 07:30] LABS: Basophils % (A) 0 %; Eosinophils % (A) 0 %; HCT 33.1 % (34.0-46.0); HGB 10.5 gm/dL (11.4-16.0); Lymphocytes % (A) 9 %; MCH 26.4 pg (25.0-35.0); MCHC 31.7 g/dL (31.0-37.0); MCV 83.3 fL (80.0-100.0); Mean Platelet Volume 7.3; Monocytes # (A) 0.6 k/uL (0-1.0); Monocytes % (A) 5 %; Neutrophils # (A) 9.9 k/uL (1.3-7.7); Neutrophils % (A) 85 %; Platelet Count 309 k/uL (150-450); RBC 3.97 m/uL (3.80-5.40); RDW 15.7 % (11.5-15.5); WBC 11.7 k/uL (3.8-10.6)
[2019-10-29 07:41] LABS: African American GFR (CKD) >90 (>60 ml/min/1.73 sqM); Anion Gap 9 mmol/L; Blood Urea Nitrogen 8 mg/dL (7-17); Calcium 9.1 mg/dL (8.4-10.2); Carbon Dioxide 26 mmol/L (22-30); Chloride 98 mmol/L (98-107); Glucose 151 mg/dL (74-99); Non-African American GFR(CKD) >90 (>60 ml/min/1.73 sqM); Potassium 5.3 mmol/L (3.5-5.1); Sodium 133 mmol/L (137-145)
[2019-10-29 08:30] LABS: Glucose,Whole Blood 172 mg/dL (75-99)
[2019-10-29] MEDS: LORazepam 2 MG/ML INJ IV PRN ×2 (09:05→19:42)
--- NOTE | 2019-10-29 09:36 | FL ---
SINGLE CONTRAST UPPER GI WITH ESOPHAGUS: CLINICAL HISTORY: 54-year-old female follow-up obstruction status post recurrent hiatal hernia repai r TECHNIQUE: Single contrast exam performed with 50 ml Isovue-370 contrast. Total fluoroscopy time: 3 minutes 16 seconds (reduced fluoroscopy rate) Total images: 22 (last image hold save screens). FINDINGS: The patient was directed to swallow oral contrast slowly and intermittently. Contrast passes quickly to the distal esophagus where it pools with initially only a small amount of passage across the GE ju nction into the stomach. Dry swallows promotes further intermittent passage of contrast with mild res idual contrast distal esophagus with a episodes of intraesophageal reflux. Slowly, the patient ingest ed the entire 50 mL and passes across the GE junction improved the course of the study. At the end, t here is moderate residual narrowing at the GE junction with mild to moderate overall relative obstruc tion with small amount of contrast remaining in the distal esophagus. Repeated dry swallows were need ed to promote clearance. Continued episodes of intraesophageal reflux are encountered. No evidence for leak. The stomach is collapsed and shows no gross abnormality. IMPRESSION: 1. Improvement but with moderate persistent narrowing of the GE junction and mild to moderate overall relative obstruction remaining. 2. Small amount of contrast remains pooled in the lower esophagus at the end of the exam and repeated dry swallows were needed to promote passage during the course of the study. 3. No evidence for leak.
[2019-10-29] MEDS ORDERED: SUMAtriptan SUCCINATE 6 MG/0.5 ML VIAL SQ STA (13:38)
[2019-10-29] MEDS: SODIUM CHLORIDE 0.9% 1,000 ML IV SCH (13:50)
--- NOTE | 2019-10-29 13:51 | P.PN ---
Subjective Progress Note Date: 10/29/19 CHIEF COMPLAINT: Gastroesophageal reflux disease HISTORY OF PRESENT ILLNESS: The patient is a 54-year-old female status post hiatal hernia repair, 10/26/2019. She still reports troubles with drinking her melted ice chips even after her esophagram this morning. She has a headache. She usually drinks caffeine daily. She has not tolerated her oral medications as well. ROS: No fevers or chills. No new chest pain. No productive sputum PHYSICAL EXAM: VITAL SIGNS: Reviewed CONSTITUTIONAL: Well developed and in no acute distress. EYES: Conjuctivae without sclera icterus. Extraocular movements grossly intact. HEAD, EARS, NOSE, THROAT: Moist buccal mucosa. Head is atraumatic, normocephalic. Hears conversational speech. No nasal drainage. NECK: Supple. No thyroidomegaly. RESPIRATORY: Non-labored respirations and equal bilateral excursions. CARDIOVASCULAR: Palpable 2+ radial pulses. Regular rate. Regular rhythm. ABDOMEN: Incisions clean dry and intact. Soft. No peritonitis. MUSCULOSKELETAL: No gross deformity of the lower extremities noted. No clubbing. No cyanosis. SKIN: Good skin turgor. Well perfused. NEUROLOGIC: Cranial nerves I through XII grossly intact. No focal or lateralizing signs. PSYCH: Appropriate affect. Alert and oriented to person, place and time. CLINICAL LABS: Reviewed. Last WBC over 12,000. Potassium elevated 5.4! IMAGES: Repeat esophagram from this morning independently reviewed with contrast into the stomach, improved from 2 days ago. REPORT: Still persistent obstruction at the GE junction. ASSESSMENT: 1. Status post hiatal hernia repair PLAN: 1. IVF changed from d51/2ns with K to .9 NS 2. Imitrex for headache 3. Continue Decadron 4. Ice chips as tolerated Objective - Vital Signs Vital signs: Vital Signs Temp 98.3 F 10/29/19 04:48 Pulse 68 10/29/19 11:09 Resp 18 10/29/19 04:48 BP 125/71 10/29/19 04:48 Pulse Ox 93 L 10/29/19 07:30 Intake & Output 10/28/19 10/29/19 10/29/19 17:59 06:59 18:59 Intake Total 1500 Balance 1500 Intake: Intake, IV Titration 1500 Amount D5-0.45% NaCl with KCl 1500 20Meq/l 1,000 ml @ 125 mls/hr IV .Q8H [facility] Rx#: [id number] Oral 0 Other: Voiding Method Toilet # Voids 5 - Labs CBC & Chem 7: 10/29/19 06:49 10/29/19 06:49 Labs: Abnormal Lab Results - Last 24 Hours (Table) 10/28/19 10/29/19 10/29/19 Range/Units 15:36 06:49 06:49 WBC 11.7 H (3.8-10.6) k/uL Hgb 10.5 L (11.4-16.0) gm/dL Hct 33.1 L (34.0-46.0) % RDW 15.7 H (11.5-15.5) % Neutrophils # 9.9 H (1.3-7.7) k/uL Sodium 133 L 133 L (137-145) mmol/L Potassium 5.3 H (3.5-5.1) mmol/L BUN 6 L (7-17) mg/dL Glucose 158 H 151 H (74-99) mg/dL POC Glucose (mg/dL) (75-99) mg/dL 10/29/19 Range/Units 08:28 WBC (3.8-10.6) k/uL Hgb (11.4-16.0) gm/dL Hct (34.0-46.0) % RDW (11.5-15.5) % Neutrophils # (1.3-7.7) k/uL Sodium (137-145) mmol/L Potassium (3.5-5.1) mmol/L BUN (7-17) mg/dL Glucose (74-99) mg/dL POC Glucose (mg/dL) 172 H (75-99) mg/dL Assessment and Plan (1) Esophageal obstruction Current Visit: Yes Status: Acute Code(s): K22.2 - ESOPHAGEAL OBSTRUCTION SNOMED Code(s): 164636836 (2) Hiatal hernia Current Visit: No Status: Acute Code(s): K44.9 - DIAPHRAGMATIC HERNIA WITHOUT OBSTRUCTION OR GANGRENE SNOMED Code(s): 78277221
[2019-10-29] MEDS: MONTELUKAST 10 MG TAB PO SCH (19:27)
--- NOTE | 2019-10-29 20:45 | PN ---
PROGRESS NOTE DATE OF SERVICE: 10/29/2019 I am covering for Dr. Ding. This 54-year-old woman was admitted after laparoscopic repair of hiatal hernia for recurrence, is being closely monitored. No chest pain. No palpitations. No fever. Upper GI barium was done, showed improved but moderate persistent narrowing of the GE junction, small amount of contrast remains. PHYSICAL EXAM: Alert and oriented x3. Pulse is 73, blood pressure 129/69, respirations 16, temperature 98 degrees, pulse ox 98% on room air. HEENT: Conjunctivae normal. Oral mucosa moist. NECK: No jugular venous distention. No lymph node enlargement. CARDIOVASCULAR: S1, S2. RESPIRATORY: Diminished breath sounds at the bases. No rhonchi, no crackles. ABDOMEN: Soft, nontender. No mass palpable. LEGS: No edema, no swelling. NERVOUS SYSTEM: No focal deficits. LABS: WBC 7.7. Otherwise, sodium 133, potassium 5.3. ASSESSMENT: 1. Status post laparoscopic repair of the hiatal hernia as well as mesh for recurrent hiatal hernia. 2. Hyponatremia. 3. Continued dysphagia. 4. Hyperkalemia, mild. 5. Increased WBC, possibly reactive. 6. Anemia of chronic disease. 7. Chronic obstructive pulmonary disease history. 8. Asthma history. 9. Gastroesophageal reflux disease. 10.Hyperlipidemia. 11.History of syncope. 12.History of degenerative joint disease. 13.History of hypothyroidism. 14.History of nephrolithiasis. 15.History of back surgery. 16.History of Arnold-Chiari malformation with herniation. 17.History of ADD/ADHD. 18.History of anxiety, depression. 19.History of nicotine dependence. 20.Obesity with body mass index of 34.8. RECOMMENDATIONS AND DISCUSSION: I recommend to continue current medications, continue to monitor, symptomatic treatment. Otherwise, at this time I recommend to continue the current medications and diet per surgery and incentive spirometry, DVT prophylaxis, and Dr. Ding will follow. MMODL / IJN: [id number] /
[2019-10-30] MEDS: SODIUM CHLORIDE 0.9% 1,000 ML IV SCH ×2 (04:24→17:33)
[2019-10-30] MEDS: ONDANSETRON 4 MG/2 ML VIAL IVP PRN ×2 (04:24→12:31)
[2019-10-30] MEDS: LEVOTHYROXINE 50 MCG TAB PO SCH (04:41)
[2019-10-30] MEDS: DEXAMETHASONE SOD PHOSPHATE 4 MG/ML 1 ML VIAL IV SCH ×4 (04:43→23:25)
[2019-10-30] MEDS: METOCLOPRAMIDE 5 MG/ML 2 ML VIAL IVP SCH ×4 (04:44→23:25)
[2019-10-30] MEDS: HYDROmorphone 1 MG/ML 1 ML SYRINGE IVP PRN ×4 (04:44→23:24)
[2019-10-30] MEDS: busPIRone HCl 5 MG TAB PO SCH ×2 (07:09→21:40)
[2019-10-30] MEDS: CITALOPRAM HYDROBROMIDE 20 MG TAB PO SCH (07:09)
[2019-10-30] MEDS: OXcarbazepine 300 MG TAB PO SCH ×2 (07:10→21:40)
[2019-10-30] MEDS: METHYLPHENIDATE HCL 10 MG TAB PO SCH ×3 (07:10→21:42)
[2019-10-30] MEDS: BUDESONIDE 1 MG/2 ML NEBU INHALATION SCH ×2 (07:33→19:23)
[2019-10-30] MEDS: IPRATROPIUM-ALBUTEROL 3 ML NEB INHALATION SCH ×5 (07:34→19:23)
[2019-10-30] MEDS: SIMETHICONE 40 MG/0.6 ML DROPS 2,000 MG/30 ML BOTTLE PO SCH ×4 (07:55→21:43)
[2019-10-30] MEDS: PANTOPRAZOLE 40 MG/10 ML VIAL IVP SCH ×2 (07:55→21:40)
[2019-10-30] MEDS: FAMOTIDINE 20 MG/2 ML VIAL IV SCH ×2 (07:55→21:40)
[2019-10-30] MEDS: LORazepam 2 MG/ML INJ IV PRN ×2 (08:14→17:33)
[2019-10-30] MEDS: ENOXAPARIN 40 MG/0.4 ML SYRINGE SQ SCH (08:15)
[2019-10-30 10:10] LABS: African American GFR (CKD) >90 (>60 ml/min/1.73 sqM); Anion Gap 11 mmol/L; Blood Urea Nitrogen 14 mg/dL (7-17); Carbon Dioxide 21 mmol/L (22-30); Chloride 101 mmol/L (98-107); Glucose 124 mg/dL (74-99); Non-African American GFR(CKD) >90 (>60 ml/min/1.73 sqM); Potassium 4.8 mmol/L (3.5-5.1); Sodium 133 mmol/L (137-145)
[2019-10-30 10:31] LABS: Basophils % (A) 0 %; Eosinophils # (A) 0.1 k/uL (0-0.7); Eosinophils % (A) 0 %; HCT 34.1 % (34.0-46.0); HGB 11.4 gm/dL (11.4-16.0); Lymphocytes # (A) 1.2 k/uL (1.0-4.8); Lymphocytes % (A) 11 %; MCH 26.8 pg (25.0-35.0); MCHC 33.5 g/dL (31.0-37.0); Mean Platelet Volume 8.1; Monocytes # (A) 0.5 k/uL (0-1.0); Monocytes % (A) 5 %; Neutrophils # (A) 8.6 k/uL (1.3-7.7); Neutrophils % (A) 82 %; Platelet Count 359 k/uL (150-450); RBC 4.27 m/uL (3.80-5.40); RDW 15.4 % (11.5-15.5); WBC 10.5 k/uL (3.8-10.6)
[2019-10-30] MEDS ORDERED: IV FLUID CONTINUATION 1,000 ML IV ONE (12:31)
[2019-10-30] MEDS ORDERED: LACTATED RINGERS 1,000 ML IV ONE (13:40)
[2019-10-30] MEDS ORDERED: MIDAZOLAM 2 MG/2 ML VIAL IV ONE (13:46)
--- NOTE | 2019-10-30 13:54 | P.PN ---
Progress Note - Text Progress Note Date: 10/30/19 The patient's esophagram has shown some improvement however there is no significant obstruction just above the GE junction. Patient will undergo diagnostic laparoscopy today in order to evaluate her GE junction obstruction.
[2019-10-30 14:20] LABS: Glucose,Whole Blood 126 mg/dL (75-99)
[2019-10-30] MEDS ORDERED: fentaNYL (PF) 50 MCG/ML 2 ML AMP ONE (14:32)
[2019-10-30] MEDS ORDERED: ROCURONIUM BROMIDE 10 MG/ML 5 ML VIAL IV ONE (14:32)
[2019-10-30] MEDS ORDERED: NEOSTIGMINE 1 MG/ML 10 ML VIAL ONE (14:32)
[2019-10-30] MEDS ORDERED: LIDOCAINE 1% INJ 10MG/ML (20 ML MDV) ONE (14:32)
[2019-10-30] MEDS ORDERED: PROPOFOL 10 MG/ML 20 ML VIAL IV ONE (14:32)
[2019-10-30] MEDS ORDERED: GLYCOPYRROLATE 0.2 MG/ML 2 ML VIAL ONE (14:32)
[2019-10-30] MEDS ORDERED: SUCCINYLCHOLINE CHLORIDE 100 MG/5 ML SYR IV ONE (14:32)
[2019-10-30] MEDS ORDERED: BUPIVACAINE (PF) 0.25% 30 ML VIAL SQ ONE (15:01)
[2019-10-30] MEDS: HYDROmorphone 1 MG/ML 1 ML SYRINGE IVP ONE ×2 (16:15→16:20)
[2019-10-30] MEDS: MONTELUKAST 10 MG TAB PO SCH (21:40)
--- NOTE | 2019-10-30 22:51 | P.PN ---
Subjective Progress Note Date: 10/30/19 Patient is a 54-year-old white female post laparoscopic fundoplication with problems with swallowing. She denies any fevers she denies any cough denies any significant pain. She is going today for reevaluation surgery. Objective - Vital Signs Vital signs: Vital Signs Temp 97.4 F L 10/30/19 20:38 Pulse 94 10/30/19 20:38 Resp 18 10/30/19 20:38 BP 121/58 10/30/19 20:38 Pulse Ox 95 10/30/19 20:38 Intake & Output 10/30/19 10/30/19 10/31/19 06:59 18:59 06:59 Intake Total 225 1225 Output Total 305 Balance 225 920 Weight 86.4 kg Intake: IV 850 Intake, IV Titration 225 375 Amount Sodium Chloride 0.9% 1, 225 375 000 ml @ 75 mls/hr IV . [id number] [facility] Rx#:[id number] Output: Urine 300 Estimated Blood Loss 5 Other: Voiding Method Toilet # Voids 2 1 - Exam GENERAL: Sitting up in bed, no acute distress HEENT: Conjunctivae normal. eyes normal. NECK: No JVD. No thyroid enlargement. No LNs CARDIOVASCULAR: S1, S2 regular.. No murmur RESPIRATION: Breath sounds diminished in the bases. No rhonchi or crackles. No bronchial breathing. ABDOMEN: Soft, status post surgery, laparoscopic sites clean, dry, well approximated. No guarding. Bowel sounds heard. LEGS: No edema. no swelling PSYCHIATRY: Alert and oriented X3, mood and affect normal. NERVOUS SYSTEM: Cranial N 2-12 grossly normal. Moves all 4 limbs. Diffuse weakness No focal deficits. Strength and sensation grossly intact.. Skin: no rash Lymphatic system. No LN neck axilla. - Labs CBC & Chem 7: 10/30/19 08:51 10/30/19 08:51 Labs: Abnormal Lab Results - Last 24 Hours (Table) 10/30/19 10/30/19 10/30/19 Range/Units 08:51 08:51 14:19 Neutrophils # 8.6 H (1.3-7.7) k/uL Sodium 133 L (137-145) mmol/L Carbon Dioxide 21 L (22-30) mmol/L Glucose 124 H (74-99) mg/dL POC Glucose (mg/dL) 126 H (75-99) mg/dL Assessment and Plan (1) Esophageal obstruction Current Visit: Yes Status: Acute Code(s): K22.2 - ESOPHAGEAL OBSTRUCTION SNOMED Code(s): 411095244 (2) Abdominal pain Current Visit: No Status: Acute Code(s): R10.9 - UNSPECIFIED ABDOMINAL PAIN SNOMED Code(s): 43863137 (3) Hiatal hernia Current Visit: No Status: Acute Code(s): K44.9 - DIAPHRAGMATIC HERNIA WITHOUT OBSTRUCTION OR GANGRENE SNOMED Code(s): 73410860 Plan: Continue current surgical plan patient currently nothing by mouth 2 undergo second procedure for esophageal dilatation. We'll continue to follow patient's progress and advanced medications and diet when possible.
[2019-10-31] MEDS: ONDANSETRON 4 MG/2 ML VIAL IVP PRN (02:21)
[2019-10-31] MEDS: HYDROmorphone 1 MG/ML 1 ML SYRINGE IVP PRN ×6 (03:15→23:36)
[2019-10-31] MEDS: LORazepam 2 MG/ML INJ IV PRN (03:16)
[2019-10-31] MEDS: METOCLOPRAMIDE 5 MG/ML 2 ML VIAL IVP SCH ×4 (05:31→23:40)
[2019-10-31] MEDS: LEVOTHYROXINE 50 MCG TAB PO SCH (05:31)
[2019-10-31] MEDS: DEXAMETHASONE SOD PHOSPHATE 4 MG/ML 1 ML VIAL IV SCH ×4 (05:31→23:40)
[2019-10-31] MEDS: SODIUM CHLORIDE 0.9% 1,000 ML IV SCH ×2 (05:32→20:58)
[2019-10-31] MEDS: IPRATROPIUM-ALBUTEROL 3 ML NEB INHALATION SCH ×4 (07:03→19:42)
[2019-10-31] MEDS: BUDESONIDE 1 MG/2 ML NEBU INHALATION SCH ×2 (07:03→19:41)
[2019-10-31] MEDS: ENOXAPARIN 40 MG/0.4 ML SYRINGE SQ SCH (07:25)
[2019-10-31] MEDS: OXcarbazepine 300 MG TAB PO SCH ×2 (07:26→20:59)
[2019-10-31] MEDS: METHYLPHENIDATE HCL 10 MG TAB PO SCH ×3 (07:26→20:59)
[2019-10-31] MEDS: busPIRone HCl 5 MG TAB PO SCH ×2 (07:26→20:58)
[2019-10-31] MEDS: CITALOPRAM HYDROBROMIDE 20 MG TAB PO SCH (07:26)
[2019-10-31] MEDS: FAMOTIDINE 20 MG/2 ML VIAL IV SCH ×2 (07:26→20:59)
[2019-10-31] MEDS: SIMETHICONE 40 MG/0.6 ML DROPS 2,000 MG/30 ML BOTTLE PO SCH ×4 (07:27→21:00)
[2019-10-31] MEDS: PANTOPRAZOLE 40 MG/10 ML VIAL IVP SCH ×2 (07:27→20:59)
[2019-10-31 08:23] LABS: Basophils % (A) 0 %; Eosinophils % (A) 0 %; HCT 33.7 % (34.0-46.0); HGB 10.9 gm/dL (11.4-16.0); Lymphocytes # (A) 1.9 k/uL (1.0-4.8); Lymphocytes % (A) 15 %; MCH 26.4 pg (25.0-35.0); MCHC 32.4 g/dL (31.0-37.0); MCV 81.5 fL (80.0-100.0); Mean Platelet Volume 7.4; Monocytes # (A) 0.8 k/uL (0-1.0); Monocytes % (A) 6 %; Neutrophils # (A) 10.2 k/uL (1.3-7.7); Neutrophils % (A) 77 %; Platelet Count 394 k/uL (150-450); RBC 4.13 m/uL (3.80-5.40); RDW 15.3 % (11.5-15.5); WBC 13.1 k/uL (3.8-10.6)
[2019-10-31 08:54] LABS: African American GFR (CKD) >90 (>60 ml/min/1.73 sqM); Anion Gap 8 mmol/L; Blood Urea Nitrogen 15 mg/dL (7-17); Calcium 8.6 mg/dL (8.4-10.2); Carbon Dioxide 26 mmol/L (22-30); Chloride 98 mmol/L (98-107); Glucose 104 mg/dL (74-99); Non-African American GFR(CKD) 89 (>60 ml/min/1.73 sqM); Potassium 4.3 mmol/L (3.5-5.1); Sodium 132 mmol/L (137-145)
[2019-10-31] MEDS: LORazepam 0.5 MG TAB PO PRN (10:45)
--- NOTE | 2019-10-31 11:57 | FL ---
EXAMINATION TYPE: FL UGI w esophagus DATE OF EXAM: 10/31/2019 COMPARISON: 10/29/2019 HISTORY: Postoperative obstruction. TECHNIQUE: A limited single contrast UGI study is performed. 49 seconds of fluoroscopy time was util ized with 14 images saved. FINDINGS: The patient swallowed contrast without difficulty or delay. Esophageal peristalsis and mo tility are blunted with severe delay flow of contrast along the diaphragmatic hiatus into the stomach . Only minimal amount of contrast extends through the gastroesophageal junction after prolonged imagi ng. IMPRESSION: Significant obstruction post Kit fundoplication surgical revision yesterday with only trace amount of contrast extending to the gastroesophageal junction after prolonged imaging time.
--- NOTE | 2019-10-31 14:27 | P.PN ---
Subjective Progress Note Date: 10/31/19 CHIEF COMPLAINT: Recurrent hiatal hernia HISTORY OF PRESENT ILLNESS: Patient is status post revision of laparoscopic repair of hiatal hernia with mesh. Patient seen and examined at the bedside. Patient is able to tolerate clear liquids without difficulty. Her esophagram still reveals evidence of obstruction at the GE junction. PHYSICAL EXAM: VITAL SIGNS: Reviewed. GENERAL: Well-developed in no acute distress. HEENT: No sclera icterus. Extraocular movements grossly intact. Moist buccal mucosa. Head is atraumatic, normocephalic. ABDOMEN: Soft. Nondistended. Surgical site clean and intact. NEUROLOGIC: Alert and oriented. Cranial nerves II through XII grossly intact. ASSESSMENT: 1. Dysphasia, recurrent hiatal hernia, status post laparoscopic repair of hiatal hernia with mesh PLAN: -Continue clear liquid diet -Continue Decadron and Reglan -Anticipate discharge home tomorrow Nurse practitioner note has been reviewed by physician. Signing provider agrees with the documented findings, assessment, and plan of care. Objective - Vital Signs Vital signs: Vital Signs Temp 98.2 F 10/31/19 12:52 Pulse 95 10/31/19 12:52 Resp 16 10/31/19 12:52 BP 140/72 10/31/19 12:52 Pulse Ox 92 L 10/31/19 12:52 Intake & Output 10/30/19 10/31/19 10/31/19 18:59 06:59 18:59 Intake Total 1225 1620 Output Total 305 Balance 920 1620 Weight 86.4 kg Intake: IV 850 Intake, IV Titration 375 900 Amount Sodium Chloride 0.9% 1, 375 900 000 ml @ 75 mls/hr IV . [id number] [facility] Rx#:[id number] Oral 720 Output: Urine 300 Estimated Blood Loss 5 Other: Voiding Method Toilet # Voids 1 1 - Labs CBC & Chem 7: 10/31/19 07:10 10/31/19 07:10 Labs: Abnormal Lab Results - Last 24 Hours (Table) 10/31/19 10/31/19 Range/Units 07:10 07:10 WBC 13.1 H (3.8-10.6) k/uL Hgb 10.9 L (11.4-16.0) gm/dL Hct 33.7 L (34.0-46.0) % Neutrophils # 10.2 H (1.3-7.7) k/uL Sodium 132 L (137-145) mmol/L Glucose 104 H (74-99) mg/dL
[2019-10-31] MEDS ORDERED: LORazepam 0.5 MG TAB PO ONE (14:50)
[2019-10-31] MEDS: clonazePAM 0.5 MG TAB PO PRN (20:59)
[2019-10-31] MEDS: HYDROcodone/APAP 10-325MG 1 EACH TAB PO PRN (20:59)
[2019-10-31] MEDS: MONTELUKAST 10 MG TAB PO SCH (20:59)
[2019-10-31] MEDS: CYCLOBENZAPRINE 10 MG TAB PO PRN (20:59)
[2019-11-01] MEDS: LEVOTHYROXINE 50 MCG TAB PO SCH (05:15)
[2019-11-01] MEDS: METOCLOPRAMIDE 5 MG/ML 2 ML VIAL IVP SCH ×4 (05:16→23:30)
[2019-11-01] MEDS: HYDROmorphone 1 MG/ML 1 ML SYRINGE IVP PRN (05:16)
[2019-11-01] MEDS: DEXAMETHASONE SOD PHOSPHATE 4 MG/ML 1 ML VIAL IV SCH ×4 (05:16→23:30)
[2019-11-01] MEDS: BUDESONIDE 1 MG/2 ML NEBU INHALATION SCH ×2 (07:11→18:53)
[2019-11-01] MEDS: IPRATROPIUM-ALBUTEROL 3 ML NEB INHALATION SCH ×4 (07:11→18:53)
[2019-11-01] MEDS: SODIUM CHLORIDE 0.9% 1,000 ML IV SCH ×2 (08:17→20:37)
[2019-11-01] MEDS: ENOXAPARIN 40 MG/0.4 ML SYRINGE SQ SCH (08:17)
[2019-11-01] MEDS: METHYLPHENIDATE HCL 10 MG TAB PO SCH ×3 (08:17→20:25)
[2019-11-01] MEDS: CITALOPRAM HYDROBROMIDE 20 MG TAB PO SCH (08:18)
[2019-11-01] MEDS: PANTOPRAZOLE 40 MG/10 ML VIAL IVP SCH ×2 (08:18→20:27)
[2019-11-01] MEDS: HYDROcodone/APAP 10-325MG 1 EACH TAB PO PRN ×2 (08:19→16:20)
[2019-11-01] MEDS: FAMOTIDINE 20 MG/2 ML VIAL IV SCH ×2 (08:19→20:27)
[2019-11-01] MEDS: OXcarbazepine 300 MG TAB PO SCH ×2 (08:21→20:27)
[2019-11-01] MEDS: busPIRone HCl 5 MG TAB PO SCH ×2 (08:21→20:27)
[2019-11-01] MEDS: LORazepam 0.5 MG TAB PO PRN (08:34)
[2019-11-01] MEDS: SIMETHICONE 40 MG/0.6 ML DROPS 2,000 MG/30 ML BOTTLE PO SCH ×4 (09:16→22:29)
[2019-11-01] MEDS ORDERED: BISACODYL 10 MG SUPP RECTAL STA (10:04)
--- NOTE | 2019-11-01 10:22 | P.DS ---
Providers Date of admission: 10/27/19 15:00 Expected date of discharge: 11/01/19 Attending physician: Jeremiah Alvarenga Consults: 10/26/19 11:50 Consult Physician Routine Consulting Provider: Ihsan Ding Consult Reason/Comments: medical management Do you want consulting provider notified?: Yes Primary care physician: Ihsan Ding Hospital Course: 54-year-old female who underwent laparoscopic repair of hiatal hernia with mesh with Dr. Alvarenga. Postoperative esophagram completed revealed severe obstruction. Patient was placed on Decadron and Reglan. Patient had persistent obstruction and required revision of her hernia repair. Patient is able to tolerate clear liquids without difficulty at this time. Pain controlled on oral medications. Vital signs are stable. She is stable for discharge home today. Please see EMR for further hospital course details. Discharge diagnosis: 1. Dysphasia, recurrent hiatal hernia, status post laparoscopic repair of hiatal hernia with mesh 2. Postoperative obstructions GE junction, an unexpected but potential outcome of surgery, improving Nurse practitioner note has been reviewed by physician. Signing provider agrees with the documented findings, assessment, and plan of care. Plan - Discharge Summary Discharge Rx Participant: Yes New Discharge Prescriptions: No Action Albuterol Inhaler [Ventolin Hfa Inhaler] 2 puff INHALATION RT-QID PRN PRN Reason: Shortness Of Breath Ezetimibe [Zetia] 10 mg PO HS Fluticasone Propionate 1 spray EA NOSTRIL BID Citalopram Hydrobromide [CeleXA] 40 mg PO DAILY OXcarbazepine [Trileptal] 600 mg PO BID Levothyroxine Sodium [Synthroid] 50 mcg PO DAILY Simethicone [Gas-X] 125 mg PO Q8H PRN PRN Reason: abdominal cramping Omeprazole 40 mg PO BID clonazePAM [KlonoPIN] 0.5 mg PO BID PRN PRN Reason: Anxiety Methylphenidate HCl 20 mg PO TID busPIRone HCL 15 mg PO BID Cyclobenzaprine [Flexeril] 10 mg PO BID PRN #60 tab PRN Reason: Muscle Spasm Montelukast Sodium [Singulair] 10 mg PO HS Fluticasone/Vilanterol [Breo Ellipta 100-25 Mcg Inhaler] 1 puff INHALATION RT-DAILY Multivitamins, Thera [Multivitamin (formulary)] 1 tab PO DAILY Cetirizine HCl [Zyrtec] 10 mg PO HS Atorvastatin Calcium [Lipitor] 10 mg PO HS Estradiol [Estrace] 0.5 mg PO DAILY HYDROcodone/APAP 10-325MG [[place] 10-325] 1 tab PO Q8H PRN PRN Reason: Pain Albuterol Nebulizer(Dose Unkno 1 applicate IH QID PRN PRN Reason: sob Discharge Medication List Albuterol Inhaler [Ventolin Hfa Inhaler] 2 puff INHALATION RT-QID PRN 12/21/13 [History] Ezetimibe [Zetia] 10 mg PO HS 09/05/14 [History] Fluticasone Propionate 1 spray EA NOSTRIL BID 11/25/15 [History] Citalopram Hydrobromide [CeleXA] 40 mg PO DAILY 12/10/15 [History] OXcarbazepine [Trileptal] 600 mg PO BID 12/10/15 [History] Levothyroxine Sodium [Synthroid] 50 mcg PO DAILY 03/13/16 [History] Simethicone [Gas-X] 125 mg PO Q8H PRN 10/19/16 [History] Omeprazole 40 mg PO BID 11/13/16 [History] clonazePAM [KlonoPIN] 0.5 mg PO BID PRN 05/03/17 [History] Methylphenidate HCl 20 mg PO TID 09/09/18 [History] busPIRone HCL 15 mg PO BID 02/05/19 [History] Cyclobenzaprine [Flexeril] 10 mg PO BID PRN #60 tab 05/04/19 [Rx] Fluticasone/Vilanterol [Breo Ellipta 100-25 Mcg Inhaler] 1 puff INHALATION RT- DAILY 07/24/19 [History] Montelukast Sodium [Singulair] 10 mg PO HS 07/24/19 [History] Cetirizine HCl [Zyrtec] 10 mg PO HS 09/27/19 [History] Multivitamins, Thera [Multivitamin (formulary)] 1 tab PO DAILY 09/27/19 [History] Atorvastatin Calcium [Lipitor] 10 mg PO HS 10/06/19 [History] Estradiol [Estrace] 0.5 mg PO DAILY 10/06/19 [History] HYDROcodone/APAP 10-325MG [[place] 10-325] 1 tab PO Q8H PRN 10/06/19 [History] Albuterol Nebulizer(Dose Unkno 1 applicate IH QID PRN 10/16/19 [History] Follow up Appointment(s)/Referral(s): Jeremiah Alvarenga MD [STAFF PHYSICIAN] - 1 Week
[2019-11-01] MEDS: POLYETHYLENE GLYCOL 3350 17 GM POWD.PACK PO SCH (10:24)
[2019-11-01] MEDS ORDERED: KETOROLAC 30 MG/ML 1 ML VIAL IVP STA (10:33)
[2019-11-01] MEDS: CYCLOBENZAPRINE 10 MG TAB PO PRN ×2 (11:25→23:30)
[2019-11-01] MEDS: clonazePAM 0.5 MG TAB PO PRN (16:51)
[2019-11-01] MEDS: MONTELUKAST 10 MG TAB PO SCH (20:27)
[2019-11-01] MEDS: KETOROLAC 30 MG/ML 1 ML VIAL IVP PRN (20:37)
[2019-11-01 23:35] VITALS: RESP 16
[2019-11-02] MEDS: HYDROcodone/APAP 10-325MG 1 EACH TAB PO PRN ×3 (00:29→16:46)
[2019-11-02 05:14] VITALS: BP 145/65; TEMP 98.1
[2019-11-02] MEDS: DEXAMETHASONE SOD PHOSPHATE 4 MG/ML 1 ML VIAL IV SCH ×2 (05:24→11:39)
[2019-11-02] MEDS: METOCLOPRAMIDE 5 MG/ML 2 ML VIAL IVP SCH ×2 (05:24→11:39)
[2019-11-02] MEDS: clonazePAM 0.5 MG TAB PO PRN ×2 (05:24→16:51)
[2019-11-02] MEDS: LEVOTHYROXINE 50 MCG TAB PO SCH (05:25)
[2019-11-02] MEDS: BUDESONIDE 1 MG/2 ML NEBU INHALATION SCH (07:15)
[2019-11-02] MEDS: IPRATROPIUM-ALBUTEROL 3 ML NEB INHALATION SCH ×3 (07:15→15:28)
[2019-11-02] MEDS: PANTOPRAZOLE 40 MG/10 ML VIAL IVP SCH (09:06)
[2019-11-02] MEDS: FAMOTIDINE 20 MG/2 ML VIAL IV SCH (09:06)
[2019-11-02] MEDS: METHYLPHENIDATE HCL 10 MG TAB PO SCH ×2 (09:07→16:46)
[2019-11-02] MEDS: POLYETHYLENE GLYCOL 3350 17 GM POWD.PACK PO SCH (09:07)
[2019-11-02] MEDS: busPIRone HCl 5 MG TAB PO SCH (09:07)
[2019-11-02] MEDS: OXcarbazepine 300 MG TAB PO SCH (09:07)
[2019-11-02] MEDS: CITALOPRAM HYDROBROMIDE 20 MG TAB PO SCH (09:07)
[2019-11-02] MEDS: SIMETHICONE 40 MG/0.6 ML DROPS 2,000 MG/30 ML BOTTLE PO SCH ×2 (09:08→11:39)
[2019-11-02] MEDS: ENOXAPARIN 40 MG/0.4 ML SYRINGE SQ SCH (09:08)
--- NOTE | 2019-11-02 10:40 | P.PN ---
Progress Note - Text Progress Note Date: 11/02/19 Patient was medically cleared for discharge yesterday per Dr. Alvarenga. Patient refused discharge because she stated she did not have a ride and also reported a headache and was demanding IV Dilaudid. Patient remains stable for discharge today. Please refer to discharge summary completed yesterday.
[2019-11-02] MEDS: KETOROLAC 30 MG/ML 1 ML VIAL IVP PRN (11:39)
[2019-11-02] MEDS: CYCLOBENZAPRINE 10 MG TAB PO PRN (11:46)
[2019-11-02] MEDS: SODIUM CHLORIDE 0.9% 1,000 ML IV SCH (15:03)
[2019-11-02 15:41] VITALS: PULSE 90
--- NOTE | 2019-11-14 10:01 | P.OP ---
Date of Procedure: 10/30/19 Preoperative Diagnosis: Dysphagia Postoperative Diagnosis: Dysphagia Procedure(s) Performed: Diagnostic laparoscopy Revision of hiatal hernia repair Anesthesia: LEXA Surgeon: Jeremiah Alvarenga Estimated Blood Loss (ml): 5 Pathology: none sent Condition: stable Disposition: PACU Description of Procedure: The patient was placed on the operating table in the supine position. The patient received general anesthesia. And was placed in dorsal lithotomy position. The patient was prepped and draped in the usual sterile fashion. The skin incision sites were anesthetized with 1% local Xylocaine. The skin was incised in the left periumbilical area and then using a blade less 5 mm trocar under direct visualization panel cavity was entered. After adequate insufflation the laparoscope was then placed into the peritoneal cavity. Next a 5 mm trochars placed in the right epigastric position. Another 5 millimeter trocar the right lateral position. Another 5 millimeter trocar in the left lateral position a 5 mm trocar is placed in the left epigastric position. And then the initial 5 mm trocar was exchanged for a 10 mm trocar. The left lateral lobe liver was retracted. The hernia repair was seen. The mesh was partially removed from the diaphragm by cutting the sutures holding the mesh. At this point the crural repair was examined. There appeared to be angulation of the esophagus due to the retro-esophageal repair of the crura. At this point a suture was taken out of the crural repair closest to the esophagus. The diaphragm defect was then closed by repairing the defect anterior to the esophagus. This appeared to decrease the angulation of the esophagus through the hiatus. A 58-Korean bougie dilator was placed through the GE junction there was no evidence of any obstruction. At this point the mesh was resecured using the 2-0 Ethibond suture and the tied knot device. There is no bleeding seen. The trochars withdrawn. The skin was closed interrupted 3-0 Monocryl suture. Dermabond was applied. Patient top she will was sent to recovery room in stable condition.
== END 2019-11-02 18:03 | disposition home or self-care (01) | DRG 327 ==
LOC: OR 07:26 → 5NMEDONC 10:58 → OR 10-27 10:39 → 5NMEDONC 10-27 10:39 → OR 10-27 11:17 → OBSVTOIN 10-27 15:00
PROVIDERS: ADMIT Surgery; ATTEND Surgery
PROC: 0BUT4JZ Supplement Diaphragm with Synthetic Substitute, Percutaneous Endoscopic Approach (ICD-10-PCS; principal; 2019-10-26 09:15)
PROC: 0BUT4JZ Supplement Diaphragm with Synthetic Substitute, Percutaneous Endoscopic Approach (ICD-10-PCS; 2019-10-30)
PROC: 0D7 Gastrointestinal System, Dilation (ICD-10-PCS; 2019-10-30)
DX: K44.9 Diaphragmatic hernia without obstruction or gangrene (principal); E87.1 Hypo-osmolality and hyponatremia; K91.89 Other postprocedural complications and disorders of digestive system; K22.2 Esophageal obstruction; E03.9 Hypothyroidism, unspecified; E78.5 Hyperlipidemia, unspecified; F32.9 Major depressive disorder, single episode, unspecified; F41.9 Anxiety disorder, unspecified; E66.9 Obesity, unspecified; E87.5 Hyperkalemia; K21.9 Gastro-esophageal reflux disease without esophagitis; D63.8 Anemia in other chronic diseases classified elsewhere; F90.9 Attention-deficit hyperactivity disorder, unspecified type; J44.9 Chronic obstructive pulmonary disease, unspecified; M19.90 Unspecified osteoarthritis, unspecified site; Z82.5 Family history of asthma and other chronic lower respiratory diseases; Z79.890 Hormone replacement therapy; Z87.442 Personal history of urinary calculi; Z68.34 Body mass index [BMI] 34.0-34.9, adult; Z87.891 Personal history of nicotine dependence; Z90.710 Acquired absence of both cervix and uterus; Z79.899 Other long term (current) drug therapy
CPT/HCPCS: 74210; 74240; 76000; 80048; 80053; 85025; 85027; 94640; 94760

== ENCOUNTER → 2020-01-04 | Outpatient (CLI) | payer MEDICARE, OTHER ==
--- NOTE | 2020-01-04 16:08 | CT ---
EXAMINATION TYPE: CT abdomen pelvis w con DATE OF EXAM: 01/04/2020 HISTORY: llq pain per patient. Diverticulitis per order. CT DLP: 941.2mGycm Automated Exposure Control for Dose Reduction was Utilized. CONTRAST: CT scan of the abdomen and pelvis is performed with IV Contrast, patient injected with 100 mL of Isov ue 300. COMPARISON: CT abdomen and pelvis October 06, 2019 and older CTs. FINDINGS: LUNG BASES: No significant abnormality is appreciated. LIVER/GB: Gallbladder not seen and presumed surgically absent similar to prior. PANCREAS: Mild focal atrophy near inferior head/uncinate process. SPLEEN: No significant abnormality is seen. ADRENALS: No significant abnormality is seen. KIDNEYS: Symmetric cortical medullary uptake and excretion without hydronephrosis seen bilaterally. B ladder poorly distended with mild wall thickening concentrically. Correlate clinically to exclude acu te cystitis. BOWEL: Interval surgical repair of hiatal hernia. Oral contrast has not reached terminal ileum. Sligh t high positioning of the cecum into the right midabdomen axial image 43. Few sigmoid colonic diverti cula without CT evidence for acute diverticulitis. UTERUS/ADNEXA: Uterus surgically absent or markedly atrophic. LYMPH NODES: No greater than 1cm abdominal or pelvic lymph nodes are appreciated. OSSEOUS STRUCTURES: Postsurgical changes lumbosacral junction redemonstrated. OTHER: No significant additional abnormality is seen. IMPRESSION: No CT evidence for acute diverticulitis. Possible acute cystitis, correlate clinically ot herwise no suspicious acute findings seen. Interval successful surgical repair of hiatal hernia.
== END | disposition home or self-care (01) ==
LOC: RADCTMAIN 13:09
PROVIDERS: ATTEND Internal Medicine Gastroenterology
DX: K57.92 Diverticulitis of intestine, part unspecified, without perforation or abscess without bleeding (principal)
CPT/HCPCS: 74177; Q9967

== ENCOUNTER → 2020-01-30 | Outpatient (CLI) | payer MEDICARE, OTHER | END | disposition home or self-care (01) | LOC: LABWHC1 10:05 | PROVIDERS: ATTEND Family Medicine | DX: Z11.59 Encounter for screening for other viral diseases (principal) ==

== ENCOUNTER → 2020-01-31 | Outpatient (CLI) | payer MEDICARE, OTHER ==
[2020-01-31 09:48] VITALS: BP 126/85; PULSE 91; RESP 16
--- NOTE | 2020-01-31 10:09 | P.PN ---
Progress Note - Text Progress Note Date: 01/31/20 Progress Note - Text 54-year-old patient presents for follow-up with a chief complaint of neck pain and low back pain and right buttock pain. Overall her cervical spine is not as problematic as it has been in the past. She responds well to trigger point injections that were performed in the cervical spine. She recently had a total epidural with lysis of adhesion back in September with relief greater than 80% 3 months. She is requesting a repeat. She noted improved function and ADLs for the 3 months after the lysis of adhesions. She also noted decreased use of Lakeside from 3 tablets a day to one maybe 2. She denies any side effects from the medication. VAS today ranges from a 4-6 out of 10 in severity depending on activity. Mostly in her low back and in her right buttock and at times down to the dorsal aspect of her right foot. She describes it as sometimes pins and needles. She combines a mostly muscle skeletal pain in the left and right trapezius muscles and cervical paraspinals worse with movement and tender to touch. In addition to above, 13-point review of systems is also negative for chest pain, shortness of breath, changes in vision, changes in hearing, new onset weakness, abdominal pain, diarrhea, extreme fatigue, malaise, fever, skin changes, homicidal or suicidal ideation, or bowel or bladder incontinence. Vital Signs: Reviewed in EMR Gen: WDWN, AAOx3, NAD HEENT: NCAT, EOMI, hearing grossly normal Pulm: resp unlabored Abd: soft, NT, ND Neck: supple, trachea midline Integumentary: Posterior cervical spine skin looks intact no signs of infection or erythema. ROM in flexion cervical spine: reduced ROM in extension cervical spine: reduced Cervical paravertebral tenderness: + Cervical Facet tenderness: + bilateral Spurling's: Positive bilateral Upper extremity: 4/5 bicep flexion left upper extremity, with marginal decrease in left bicep reflex 4/5 tricep extension left upper extremity Marginally decreased handgrip strength in left versus right Interdigit strength 5/5 bilateral Neuro: CN II-XII grossly intact, muscle strength in upper extremity deficient on the left in the bicep and tricep. Lower extremity weakness noted in quadriceps and with dorsiflexion on the right compared to left. 4+ out of 5. Dysesthesia noted along L5 nerve root on the right. Imaging: The patient's MRI with significant C5-C6 left encroachment of the neural foramen causing significant radiating pain down her left arm to her biceps and forearm. I discussed with her doing a targeted C6-C7 epidural steroid injection to try to provide her with optimal relief in order to minimize her dependency on opiates. Patient agrees after discussing the risks and benefits and will be scheduled for next available time. Assessment: 1. cervical spondylosis without myelopathy 2. Cervical radiculopathy 3. cervical myofascial pain 4. Lumbar post laminectomy syndrome Plan: 1. Explanation: Opioid and psychological risk scores were reviewed. Diagnoses, prognoses, and multiple treatment options including but not limited to physical therapy, interventional therapies, adjuvant medical therapies, narcotic medication therapies, and surgery were discussed with the patient and all questions were answered to the patient's satisfaction. 2. Opioid agreement: Patient has previously signed narcotic agreement, and was orally counseled to not overuse, abuse, divert, or cell medications, and to take them as prescribed by only 1 healthcare provider. The patient was also counseled to store opioid medications in a safe and preferably locked location. Patient was also counseled against driving while using narcotic medications and also to not use alcohol or any illicit or recreational drugs. The patient verbalized understanding that lack of compliance with any of the above and likely result in failure to renew narcotic prescriptions, possible discharge from the clinic, and possible legal ramifications thereafter if indicated. 3. Counseling: The patient was counseled extensively on BODY MASS INDEX, EXERCISE. Specifically, the patient was instructed regarding the importance of weight loss and exercise in the context of both chronic pain and overall health. 4. Procedures: Patient is scheduled for caudal epidural with lysis of adhesions tomorrow. 5. Consultations: None 6. Investigations: UDS done this visit. 7. Medications: Lakeside 10mg/325mg Q8H PRN 84 tabs x 28 days. Patient also received a prescription of clonazepam from her psychiatrist. I discussed this issue the risks of taking benzodiazepines as a pain is along with opiates. I instructed her that she needs to contact her psychiatrist and find alternatives for her generalized anxiety other than benzodiazepines. 8. Disposition: Patient is scheduled for caudal epidural with lysis of adhesions tomorrow.
== END | disposition home or self-care (01) ==
LOC: PNWHC3 09:20
PROVIDERS: ATTEND Anesthesiology
DX: M47.22 Other spondylosis with radiculopathy, cervical region (principal); M79.18 Myalgia, other site; M96.1 Postlaminectomy syndrome, not elsewhere classified; Z79.891 Long term (current) use of opiate analgesic; Z79.899 Other long term (current) drug therapy
CPT/HCPCS: 80307; G0482; G0463; 99211

== ENCOUNTER 2020-02-01 07:13 | Day surgery (SDC) | payer MEDICARE, OTHER ==
[2020-01-31 10:20] VITALS: BMI 33.5
[~2020-02-01 07:13] MED LIST changes: -DEXAMETHASONE SOD PHOSPHATE 10 MG/ML 1 ML VIAL IV ONE; -HEPARIN SODIUM,PORCINE 5,000 UNIT/ML 1 ML VIAL SQ ONE; -LIDOCAINE 1% (10MG/ML) FOR IV START INTRADERMA PRN
[2020-02-01 07:45] VITALS: TEMP 97.1
[2020-02-01] MEDS ORDERED: MIDAZOLAM 2 MG/2 ML VIAL ONE (08:28)
[2020-02-01] MEDS ORDERED: fentaNYL (PF) 50 MCG/ML 2 ML AMP ONE (08:28)
[2020-02-01] MEDS ORDERED: LIDOCAINE 1% INJ 10MG/ML (20 ML MDV) ONE (08:28)
[2020-02-01] MEDS ORDERED: ROPIVACAINE 5MG/ML 20ML VIAL ONE (08:28)
[2020-02-01] MEDS ORDERED: methylPREDNISolone ACETATE 40 MG/ML 1 ML VIAL ONE (08:28)
[2020-02-01] MEDS ORDERED: IOPAMIDOL M200 10 ML VIAL ONE (08:28)
--- NOTE | 2020-02-01 09:02 | P.PCN ---
Date of Procedure: 02/01/20 Description of Procedure: PREOP DIAGNOSIS: 1- Lumbar postlaminectomy syndrome. POSTOP DIAGNOSIS:1- Lumbar postlaminectomy syndrome. PROCEDURE: 1-Caudal epidural steroid injection with epidurolysis and epidurogram under fluoroscopic guidance. (Fluoroscopy images available in the radiology Department ) 2-caudal epidurogram. ANESTHESIA: Local with 1% lidocaine 3 ml ,and moderate sedation, with Versed 2 mg and fentanyl 100 g. EBL: Minimal. PROCEDURE INDICATION: The patient with post-laminectomy syndrome with low back pain and radiculopathy radiating down in both legs, here for a caudal epidural steroid injection with epidurolysis. She has had excellent relief >80% with previous procedures for >3months with improved ADLs. PROCEDURE DESCRIPTION: The patient was seen and identified in the preoperative area. Risks, benefits, complications, and alternatives were discussed with the patient. The patient agreed to proceed with the procedure and signed the consent. IV was started, and vital signs were stable. Patient was taken to the OR and time out was completed. The patient was placed in the prone position on procedure table and a pillow was placed under the abdomen to reduce lumbar lordosis. The lumbosacral area was prepped and draped in the usual sterile fashion. Vital signs were closely monitored during the procedure. lateral view and the anterior-posterior plates of the sacrum were identified with infiltration of the area overlying the sacral hiatus with 1% lidocaine .A 17 gauge RK epidural needle was used to advance through the sacral hiatus into the caudal epidural space. Omnipaque 180 dye. 2cc was injected and the position of the needle was verified to be in the midline. A Racz catheter was introduced into the epidural space and was advanced towards the L5-S1 interspace under direct fluoroscopic guidance. 2ml Omnipaque 200 dye was utilized and only left sided epidural spread was noted at L5-S1 and below. Multiple passes were made with the catheter for lysis of epidural adhesions. 2ml of omnipaque was injected after lysis which showed bilateral spread which coincides with patients complaints of rights buttock and leg pain. After negative aspiration, Depo-Medrol 40 mg with 3ml of preservative free Lidocaine 1% and 5 ml of preservative free normal saline was injected slowly. Additional spread was seen to L4 under fluoroscopy. The needle and the catheter were withdrawn intact. EPIDUROGRAM: Omnipaque 180 mg dye 2 ml was injected with spread of the dye into the caudal epidural space and with spread cutoff at L5 prior to epidurolysis. Post epidurolysis dye 2 ml was injected and spread was seen to L4-5, bilateral. There was further spread of the solution together with the dye above the L3 COMPLICATIONS: None. DISPOSITION / PLANS: The patient was placed in a supine position and transferred to the recovery area in a stable condition for observation and was discharged from the recovery room after meeting discharge criteria. Home discharge instructions given to the patient by the staff. The patient was reexamined prior to discharge. The patient will schedule a follow up in the clinic in 2-4 weeks.
[2020-02-01] MEDS ORDERED: IV FLUID CONTINUATION 1,000 ML IV ONE (09:04)
--- NOTE | 2020-02-01 09:07 | FL ---
Fluoroscopy INDICATION: Pain FINDINGS: Fluoroscopy time: 19 seconds. Images obtained: 3. IMPRESSIONS: 1. Documentation of fluoroscopy.
[2020-02-01 09:28] VITALS: BP 123/72; PULSE 79; RESP 16
== END 2020-02-01 09:37 | disposition home or self-care (01) ==
LOC: ORPAIN 07:13
PROVIDERS: ATTEND Anesthesiology
DX: M96.1 Postlaminectomy syndrome, not elsewhere classified (principal); M54.16 Radiculopathy, lumbar region; Z88.0 Allergy status to penicillin
CPT/HCPCS: 62264; J2250; J1030; J2001; J3010; Q9966; J2795; C1894; 99152; 99153

== ENCOUNTER → 2020-02-28 | Outpatient (CLI) | payer MEDICARE, OTHER ==
--- NOTE | 2020-02-28 14:05 | P.PAINPG ---
Subjective Progress Note Date: 02/28/20 This is a follow-up visit for this 54 years old female with a chronic history of severe neck pain ,and low back pain, she is diagnosed with cervical spondylosis and occipital neuralgia, and myofascial pain syndrome cervical area , failed back surgery syndrome lumbar area, recently we have done trigger point injection in the cervical area and we did caudal epidural steroid injection with lysis of epidural adhesions, she continued to have severe neck pain, which is increased with any neck movement , she is currently on [place] 10/325 every 8 hours and Flexeril 10 mg twice a day, she is able to ambulate, she had no motor or sensory deficit, but the intensity of the pain interfering with her quality of life. She denies any fever or night sweats which denies any change in the bowel movement or urination, she is scheduled to have MRI of the cervical spine with the next few days and she is already have appointment with the neurosurgeon at [facility] for possible surgical interventions on her cervical spine Objective - Vital Signs Vital signs: Intake & Output 02/27/20 02/28/20 02/28/20 18:59 06:59 18:59 Weight 83.007 kg - Exam Physical Examinations : -Constitutiona : Cooperative , not in acute distress . -HEENT : nech : supple , no Lymphadenopathy , normal thyroid size . : eyes : no ptosis , no icterus, no photophobia . : ENT : normal of hearing , normal oropharynx , no Thrush . - Respiratory : Chest clear to auscultations Bilaterally , no wheezing , no Rhonchi . - Cardiovascula : regular rate and rhythem , S1 , S2 , no S3 , no S4. - Gastrointestina : abdomen soft no tenderness , bowel sounds , no organomegally . - Genitourinary : Defferred . - neurologic : Cranial nerve II to XII intact , no focal neurological deffecit . -psychatric : alert , oriented X 3 , appropriate affect , intact judgment and insight . -Lymphatic : no Lymphadenopathy . - musculoskeltal : Cervical Spine motor stregnth in the deltoid and biceps, normal right side , normal Left side motor stregnth biceps and the wrist extensors normal right side ,normal left side . motor stregnth in the triceps muscle . normal Right side , normal Left side deep tendon reflexes normal at the biceps , normal at Brachioradialis , normal at triceps. cervical facet loading test= Positive Bilaterally Spurling test= positive bilaterally. Neck distraction test= positive bilaterally. Les sign= positive bilaterally. Lumber spine moter stegnth lower extremities ,thigh and legs 5/5 Right side , 5/5 Left side Assessment and Plan Plan: chronic low back pain secondary to failed back surgery syndrome and lumbar area , lumbar spondylosis with lumbar facet arthropathy . Myofascial pain syndrome cervical. cervical radiculopathy chronic and current use of high-risk medication (opioids) Patient denies any side effects of the current pain medication and the current treatment/medication helping the patient to do activity of daily living , Diagnoses, prognosis, treatment options, including but not limited to physical therapy, medication management, interventional therapies, and surgery, were discussed with the patient All the questions answered The narcotic consent was signed and patient agreed and understood the side effects and complications of opioid treatment. Patient signed the narcotic agreement, and was orally counseled, not to overuse, not to abuse, not to Divert , not tp sell pain medication, and to take it as prescribed only, Patient was counseled not to drive or operate heavy equipment while using narcotic medication, and advised not to use alcohol or any Illicit drugs while using the narcotis. understanding that lack of compliance with any of the above instructions, will likely to cause discharge from, the pain service, not to renew his narcotic prescriptions MAPS Reviwed and it was apropriate . Medication managements= patient will be given prescription refills for [place] 10/325 every 8 hours dispense 90 with 1 refill, Flexeril 10 mg 2 times a day with one refill. Interventions= none. patient is scheduled to have MRI of the cervical spine to be done within next few days, and also she will follow up with neurosurgery for evaluation regarding her neck pain Patient will be seen in the pain clinic in 2 months, , Time with Patient: Less than 30 PQRS Measure Charge Sheet Measure #130: Documentation of Current Meds in Medical Chart: Patient's medications documented in chart Measure #226: Tobacco Use: Screen & Cessation Intervention: Pt screened for tobacco use AND intervention given Measure #111: Pneumonia Vaccination: Pneumococcal vaccine administered or previously received Measure #47: Advance Care Plan: Advance care planning discussed & documented, pt chose/unable to give Measure #412: Opioid Treatment Agreement: Documented signed opioid trtmnt agreemnt min once during opioid trtmnt Measure #408: Opioid Therapy Follow-up Evaluation: Patient had f/u eval minimum every 3 months during opioid therapy Measure #317: Preventitive Care & Scrn High Bld Press & F/U: Normal blood pressure, f/u not required Measure #128: Body Mass Index (BMI) Screening & Follow-up: BMI documented ABOVE normal parameters - f/u documented Measure #131: Pain Assessment & Follow-up: Pain positive & plan documented, Follow-up scheduled Measure #431: Unhealthy Alcohol Use Preventative Care & Scrn: Patient not identified as an unhealthy alcohol user PQRS Narrative: Smoking Status Light tobacco smoker Narcotic Agreement Date Signed 08/24/19 Pain Intensity [Right Shoulder 10 ] Hx Alcohol Use (MH) No Home Medications: Ambulatory Orders Albuterol Inhaler (Mhu) [Ventolin Hfa Inhaler (Mhu)] 2 puff INHALATION RT-QID PRN 12/21/13 Ezetimibe [Zetia] 10 mg PO HS 09/05/14 Fluticasone Propionate 1 spray EA NOSTRIL BID 11/25/15 Citalopram Hydrobromide [CeleXA] 40 mg PO DAILY 12/10/15 OXcarbazepine [Trileptal] 600 mg PO BID 12/10/15 Levothyroxine Sodium [Synthroid] 50 mcg PO DAILY 03/13/16 Simethicone [Gas-X] 125 mg PO Q8H PRN 10/19/16 Omeprazole 40 mg PO BID 11/13/16 clonazePAM [KlonoPIN] 0.5 mg PO BID PRN 05/03/17 Methylphenidate HCl 20 mg PO TID 09/09/18 busPIRone HCL 15 mg PO BID 02/05/19 Fluticasone/Vilanterol [Breo Ellipta 100-25 Mcg Inhaler] 1 puff INHALATION RT- DAILY 07/24/19 Montelukast Sodium [Singulair] 10 mg PO HS 07/24/19 Cetirizine HCl [Zyrtec] 10 mg PO HS 09/27/19 Multivitamins, Thera [Multivitamin (formulary)] 1 tab PO DAILY 09/27/19 Atorvastatin Calcium [Lipitor] 10 mg PO HS 10/06/19 Estradiol [Estrace] 0.5 mg PO DAILY 10/06/19 Varenicline [Chantix Starter Pack] 0.5 mg PO BID 02/27/20 Albuterol Nebulized [Ventolin Nebulized] 2 puff INHALATION QID PRN 02/28/20 Cyclobenzaprine [Flexeril] 10 mg PO BID PRN #60 tab 02/28/20 HYDROcodone/APAP 10-325MG [[place] 10-325] 1 tab PO Q8H PRN #90 tab 02/28/20 HYDROcodone/APAP 10-325MG [[place] 10-325] 1 tab PO Q8HR PRN 30 Days #90 tab 02/28/20 Controlled Substance Measures - Controlled Substance Measures Is patient prescribed a controlled substance at discharge?: Yes When asked, does pt state using other controlled substances?: No If prescribed controlled substance>3 days was MAPS reviewed?: Yes If Rx opioid, was Start Talking consent form obtained?: Yes If opioid is for acute pain is fill amount 7 days or less?: No Was information provided regarding opioid addiction?: Yes
[2020-03-01 09:29] VITALS: BP 129/74; PULSE 90; RESP 16
== END | disposition home or self-care (01) ==
LOC: PNWHC3 12:54
PROVIDERS: ATTEND Specialist
DX: M96.1 Postlaminectomy syndrome, not elsewhere classified (principal); M47.816 Spondylosis without myelopathy or radiculopathy, lumbar region; M54.12 Radiculopathy, cervical region; M79.18 Myalgia, other site; M46.96 Unspecified inflammatory spondylopathy, lumbar region; G89.29 Other chronic pain; F17.200 Nicotine dependence, unspecified, uncomplicated; Z79.891 Long term (current) use of opiate analgesic; Z79.899 Other long term (current) drug therapy; Z79.890 Hormone replacement therapy
CPT/HCPCS: 99211

== ENCOUNTER 2020-03-12 14:44 | Emergency (ER) | payer MEDICARE, OTHER ==
[2020-03-12 14:54] VITALS: RESP 16
[2020-03-12] MEDS ORDERED: diphenhydrAMINE 25 MG CAP PO STA (15:17)
[2020-03-12] MEDS ORDERED: MORPHINE SULFATE 4 MG/ML SYRINGE IM STA (15:17)
--- NOTE | 2020-03-12 15:19 | ED ---
General Adult HPI - General Chief complaint: Extremity Injury, Upper Stated complaint: Shoulder Pain Time Seen by Provider: 03/12/20 14:58 Source: patient, RN notes reviewed, old records reviewed Mode of arrival: ambulatory Limitations: no limitations - History of Present Illness Initial comments: 54-year-old female patient with past history significant for prior chiari malforamation. Patient chief complaint of neck pain. Patient reports that since November she's been having cervical pain and radiculopathy extending down her right arm. She reports that last night she began to have this with her left arm where she is having some pain reading from her neck down her left arm accompanied by some numbness and tingling. She also reports that she has been having a mild headache today. This began this morning. Denies any changes in vision. Denies any chest pain shortness of breath. Denies any other complaints. Systemic: Pt denies fatigue, fever/chills, rash. Pt denies weakness, night sweats, weight loss. Neuro: Pt denies headache, visual disturbances, syncope or pre-syncope. HEENT: Pt denies ocular discharge or irritation, otalgia, rhinorrhea, pharyngitis or notable lymphadenopathy. Cardiopulmonary: Pt denies chest pain, SOB, heart palpitations, dyspnea on exertion. Abdominal/GI: Pt denies abdominal pain, n/v/d. : Pt denies dysuria, burning w/ urination, frequency/urgency. Denies new onset urinary or bowel incontinence. MSK: Pt denies myalgia, loss of strength or function in extremities. Neuro: Pt denies new onset weakness. - Related Data Home Medications Medication Instructions Recorded Confirmed Ezetimibe [Zetia] 10 mg PO HS 09/05/14 03/12/20 Fluticasone Propionate 1 spray EA NOSTRIL BID 11/25/15 03/12/20 Citalopram Hydrobromide [CeleXA] 40 mg PO DAILY 12/10/15 03/12/20 OXcarbazepine [Trileptal] 600 mg PO BID 12/10/15 03/12/20 Levothyroxine Sodium [Synthroid] 50 mcg PO DAILY 03/13/16 03/12/20 Simethicone [Gas-X] 125 mg PO Q8H PRN 10/19/16 03/12/20 Omeprazole 40 mg PO BID 11/13/16 03/12/20 clonazePAM [KlonoPIN] 0.5 mg PO BID PRN 05/03/17 03/12/20 Methylphenidate HCl 20 mg PO TID 09/09/18 03/12/20 busPIRone HCL 15 mg PO BID 02/05/19 03/12/20 Fluticasone/Vilanterol [Breo 1 puff INHALATION RT-DAILY 07/24/19 03/12/20 Ellipta 100-25 Mcg Inhaler] Montelukast Sodium [Singulair] 10 mg PO HS 07/24/19 03/12/20 Atorvastatin Calcium [Lipitor] 10 mg PO HS 10/06/19 03/12/20 Estradiol [Estrace] 0.5 mg PO DAILY 10/06/19 03/12/20 Albuterol Inhaler [Ventolin Hfa 2 puff INHALATION RT-QID PRN 03/12/20 03/12/20 Inhaler] Varenicline [Chantix Continuing 1 mg PO BID 03/12/20 03/12/20 Pack] Previous Rx's Medication Instructions Recorded Cyclobenzaprine [Flexeril] 10 mg PO BID PRN #60 tab 02/28/20 HYDROcodone/APAP 10-325MG [[place] 1 tab PO Q8H PRN #90 tab 02/28/20 10-325] predniSONE 50 mg PO DAILY #4 tab 03/12/20 Allergies Allergy/AdvReac Type Severity Reaction Status Date / Time Penicillins Allergy Rash/Hives Verified 03/12/20 16:02 Review of Systems ROS Statement: Those systems with pertinent positive or pertinent negative responses have been documented in the HPI. ROS Other: All systems not noted in ROS Statement are negative. Past Medical History Past Medical History: Asthma, COPD, GERD/Reflux, Hyperlipidemia, Osteoarthritis (OA), Syncope, Thyroid Disorder Additional Past Medical History / Comment(s): kidney stones, hypoglycemia, chronic neck and L shoulder, lower back pain. Hx L facial and L ankle fxs, sinus problems, vertigo, falls in past due to syncope, low BP at times. Fusion of sacrum and iliac crest-per . 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 Rectocele repair. colonoscopy, d&c Past Anesthesia/Blood Transfusion Reactions: Previous Problems w/ Anesthesia Additional Past Anesthesia/Blood Transfusion Reaction / Comment(s): "Takes longer to wake up from anesthesia." Past Psychological History: ADD/ADHD, Anxiety, Depression Smoking Status: Current every day smoker Past Alcohol Use History: None Reported Past Drug Use History: None Reported - Past Family History Mother Family Medical History: Cancer Additional Family Medical History / Comment(s): lung Father Family Medical History: Asthma, COPD, Osteoarthritis (OA) Additional Family Medical History / Comment(s): Father at age 80 yrs. General Exam - General Exam Comments Initial Comments: Constitutional: NAD, AOX3, Pt has pleasant affect. HEENT: NC/AT, trachea midline, neck supple, no lymphadenopathy. Posterior pharynx non erythematous, without exudates. External ears appear normal, without discharge. Mucous membranes moist. Eyes PERRLA, EOM intact. There is no scleral icterus. No pallor noted. Cardiopulmonary: RRR, no murmurs, rubs or gallops, no JVD noted. Lungs CTAB in anterior and posterior vasquez. No peripheral edema. Abdominal exam: Abdomen soft and non-distended. Abdomen non-tender to palpation in all 4 quadrants. Bowel sounds active in LLQ. No hepatosplenomegaly. No ecchymosis Neuro: CN II-XII intact. No nuchal rigidity. No raccon eyes, no alicea sign, no hemotympanum. Mild cervical spinal tenderness. MSK: No posterior calf tenderness bilaterally, homans sign negative bilaterally. Posterior tibialis and radial pulse +2 bilaterally. Sensation intact in upper and lower extremities. Full active ROM in upper and lower extremities, 5/5 stregnth. Limitations: no limitations Course Vital Signs 03/12/20 14:50 Temperature 98.4 F Pulse Rate 84 Respiratory 16 Rate Blood Pressure 106/69 O2 Sat by Pulse 98 Oximetry Medical Decision Making - Medical Decision Making 54-year-old female patient presents for evaluation of chronic neck pain with radiculopathy. Patient was previously having etc. colopathy now having some left-sided radiculopathy. Also had a mild headache today. Patient rolled signs are stable. Physical exam displayed [place] malformation with prior suboccipital decompression surgery no acute intracranial abnormality. No acute fracture of the cervical spine. Status post C4 through C6 ACDF. Grade 1 anterior listhesis below the fusion at C6-C7 similar to slightly worse from 2019. Verbal mild to moderate neural foraminal stenosis throughout. Patient symptoms are improved. He'll be discharged by steroid treatment and outpatient follow-up with both her pain management and orthospine. Patient does have an MRI scheduled in about 2 weeks. Will return to ED if condition worsens. Case discussed with Dr. Rich. Disposition Clinical Impression: Cervical radiculopathy Disposition: HOME SELF-CARE Condition: Stable Instructions (If sedation given, give patient instructions): Cervical Radiculopathy (ED) Additional Instructions: Follow-up with primary care provider tomorrow. Attend MRI as scheduled. Follow- up with pain management as scheduled. Also follow up with orthopedic spine. Return to ER if condition worsens. Take medications as directed. Prescriptions: predniSONE 50 mg PO DAILY #4 tab Is patient prescribed a controlled substance at d/c from ED?: No Referrals: Ihsan Ding DO [Primary Care Provider] - 1-2 days Imer Peña DO [Doctor of Osteopathic Medicine] - 1-2 days
--- NOTE | 2020-03-12 16:01 | CT ---
EXAMINATION TYPE: CT brain cspine wo con DATE OF EXAM: 03/12/2020 COMPARISON: Cervical spine 08/17/2019 HISTORY: 54-year-old female with headache CT DLP: 1399 mGycm Automated exposure control for dose reduction was used. Technique: Examination of the head was done in axial plane without intravenous contrast. Coronal and sagittal reconstructions performed. CT of the cervical spine was obtained in axial plane without intravenous injection of contrast mater ial. Coronal and sagittal reformatted images were obtained from the axial views for evaluation of f ractures, spinal alignment and canal. FINDINGS: Head: There is no evidence of acute intracranial hemorrhage, acute ischemic changes, mass, mass-effect, or extra-axial fluid collection. There is no effacement of cerebral sulci or basal subarachnoid cister ns. There is no hydrocephalus. There is no midline shift. Rich-white matter distinction is preserv ed. There is 6.5 mm of cerebellar tonsillar ectopia. Prior suboccipital decompression surgery. Mild bifro ntal cerebral cortical volume loss. Rightward nasal septum deviation. Mucosal thickening left sphenoid sinus. Mastoid air cells are well pneumatized. Orbits and globes are intact. Cervical spine: No previous junction abnormality, predental space widening, or prevertebral soft tissue swelling. Degenerative change of the C1 dens articulation. Status post C4-C6 ACDF. Facet arthropathy and degenerative disc disease pleural effusion at C6-C7 with grade 1 anterolisthesi s, similar to slightly progressed from 08/17/2019. Variable mild to moderate neuroforaminal stenosis throughout. Reversal of the normal cervical lordosis. No acute fracture of the cervical spine. Bilateral lingual tonsillar hypertrophy incidentally noted. Sagittal and coronal reformatted images confirm above findings. COMBINED IMPRESSION: 1.Chiari I malformation with prior suboccipital decompression surgery. No acute intracranial abnormal ity seen. 2. No acute fracture of the cervical spine. Status post C4-C6 ACDF. Grade 1 anterolisthesis below the fusion at C6/C7 similar to slightly worse from 08/17/2019. Variable paba-as-gzntnano neuroforaminal stenosis throughout.
[2020-03-12] MEDS ORDERED: methylPREDNISolone SOD SUCCI 125 MG/2 ML VIAL IM STA (16:47)
[2020-03-12] MEDS ORDERED: KETOROLAC 60 MG/2 ML VIAL IM STA (16:47)
[2020-03-12 16:59] VITALS: BP 110/70; PULSE 74; TEMP 97.8
== END 2020-03-12 16:58 | disposition home or self-care (01) ==
LOC: EC 14:44
DX: M54.12 Radiculopathy, cervical region (principal); M43.12 Spondylolisthesis, cervical region; M48.02 Spinal stenosis, cervical region; G89.29 Other chronic pain; R51 Headache; Z98.1 Arthrodesis status; Z98.890 Other specified postprocedural states; F17.200 Nicotine dependence, unspecified, uncomplicated; Z88.0 Allergy status to penicillin; J44.9 Chronic obstructive pulmonary disease, unspecified; K21.9 Gastro-esophageal reflux disease without esophagitis; E78.5 Hyperlipidemia, unspecified; M19.90 Unspecified osteoarthritis, unspecified site; E07.9 Disorder of thyroid, unspecified; F41.9 Anxiety disorder, unspecified; F32.9 Major depressive disorder, single episode, unspecified
CPT/HCPCS: 72125; 70450; 99284; 96372 ×3; J2270; J2930; J1885

== ENCOUNTER → 2020-03-23 | Outpatient (CLI) | payer MEDICARE, OTHER ==
--- NOTE | 2020-03-23 10:21 | MR ---
EXAMINATION TYPE: MR cervical spine wo con DATE OF EXAM ORDERED: 03/23/2020 9:38 AM HISTORY: M54.12. TECHNOLOGIST HISTORY AT TIME OF EXAM: COMPARISON: Previous study dated 03/14/2019 TECHNIQUE: Multiplanar, multiecho imaging of the cervical spine was obtained without contrast on a 1 .5 rubin magnet. FINDINGS: There has been a previous ACDF extending from C4 to C6. There is moderate geometric distort ion through these regions. Alignment appears maintained. Atlantoaxial relationships appear normal. Pr evertebral soft tissues appear normal. There is a normal craniocervical junction. Cord signal is main tained. At C2-C3, there is mild left-sided intervertebral foraminal narrowing. There is no significant compre ssive discopathy. The facet and uncovertebral joints are unremarkable. At C3-C4, there is bilateral intervertebral foraminal narrowing, worse on the left than the right. Th ere is no significant compressive discopathy. The facets are unremarkable. There is mild uncovertebra l joint disease. At C4-C5, there is bilateral intervertebral foraminal narrowing. There is no significant compressive discopathy. The facets are unremarkable. Uncovertebral joints are obscured. At C5-C6, intervertebral foramina are obscured. The uncovertebral joints are obscured. There is no si gnificant compressive discopathy. The facets are unremarkable. At C6-C7, there is bilateral intervertebral foraminal narrowing, slightly worse on the right than the left. No significant compressive discopathy is seen. The facets are unremarkable. The uncovertebral joints are obscured. At C7-T1, no definite abnormality is seen. IMPRESSION: 1. POSTSURGICAL CHANGE CAUSING MILD TO MODERATE ARTIFACT. 2. MULTILEVEL INTERVERTEBRAL FORAMINAL NARROWING. 3. NO SIGNIFICANT COMPRESSIVE DISCOPATHY.
--- NOTE | 2020-03-23 13:26 | XR ---
EXAMINATION TYPE: XR cervical spine w flex/ext , 7 VIEWS DATE OF EXAM ORDERED: 03/23/2020 HISTORY: M54.12. COMPARISON: Previous study dated 08/17/2019. FINDINGS: There has been a previous ACDF with spacer material placement at C4, C5 and C6. Alignment is normal. No abnormal motion of the spine is noted in flexion or extension. There is intervertebral foraminal narrowing present bilaterally most marked at C5-6. IMPRESSION: 1. POSTSURGICAL CHANGE. 2. INTERVERTEBRAL FORAMINAL NARROWING BILATERALLY AT C5-6.
== END | disposition home or self-care (01) ==
LOC: RADMRIMAIN 09:04
PROVIDERS: ATTEND Neurological Surgery
DX: M48.02 Spinal stenosis, cervical region (principal); M54.12 Radiculopathy, cervical region; Z98.890 Other specified postprocedural states
CPT/HCPCS: 72052; 72141

== ENCOUNTER 2020-04-23 12:15 | Emergency (ER) | payer MEDICARE, OTHER ==
[2020-04-23] MEDS ORDERED: MORPHINE SULFATE 4 MG/ML SYRINGE IV STA (13:42)
[2020-04-23] MEDS ORDERED: SODIUM CHLORIDE 0.9% 500 ML 500 ML IV STA (13:42)
[2020-04-23 14:39] LABS: Appearance,Urine Cloudy (Clear); Bacteria,Urine Rare /hpf; Bilirubin,Urine Negative (Negative); Blood,Urine Negative (Negative); Color,Urine Yellow; Glucose,Urine (UA) Negative (Negative); Hyaline Casts,Urine 1 /lpf (0-2); Ketones,Urine Negative (Negative); Leukocyte Esterase,Urine Negative (Negative); Mucus,Urine Rare /hpf; Nitrite,Urine Negative (Negative); Protein,Urine Negative (Negative); Specific Gravity,Urine 1.013 (1.001-1.035); Squamous Epithelial Cell,Urine 13 /hpf (0-4); Urobilinogen,Urine <2.0 mg/dL (<2.0); WBC,Urine 1 /hpf (0-5)
[2020-04-23 14:46] LABS: Basophils # (A) 0.1 k/uL (0-0.2); Basophils % (A) 1 %; Eosinophils # (A) 0.2 k/uL (0-0.7); Eosinophils % (A) 2 %; HCT 33.7 % (34.0-46.0); HGB 10.9 gm/dL (11.4-16.0); Lymphocytes # (A) 2.6 k/uL (1.0-4.8); Lymphocytes % (A) 29 %; MCH 26.4 pg (25.0-35.0); MCHC 32.3 g/dL (31.0-37.0); MCV 81.6 fL (80.0-100.0); Mean Platelet Volume 7.2; Monocytes # (A) 0.5 k/uL (0-1.0); Monocytes % (A) 5 %; Neutrophils # (A) 5.5 k/uL (1.3-7.7); Neutrophils % (A) 61 %; Platelet Count 305 k/uL (150-450); RBC 4.13 m/uL (3.80-5.40); RDW 14.9 % (11.5-15.5); WBC 9.1 k/uL (3.8-10.6)
[2020-04-23 14:57] LABS: ALT 16 U/L (4-34); AST 27 U/L (14-36); African American GFR (CKD) >90 (>60 ml/min/1.73 sqM); Albumin 4.2 g/dL (3.5-5.0); Alkaline Phosphatase 106 U/L (38-126); Anion Gap 8 mmol/L; Blood Urea Nitrogen 6 mg/dL (7-17); Calcium 8.8 mg/dL (8.4-10.2); Carbon Dioxide 25 mmol/L (22-30); Chloride 96 mmol/L (98-107); Glucose 94 mg/dL (74-99); Non-African American GFR(CKD) >90 (>60 ml/min/1.73 sqM); Potassium 4.5 mmol/L (3.5-5.1); Sodium 129 mmol/L (137-145); Total Bilirubin 0.3 mg/dL (0.2-1.3); Total Protein 6.8 g/dL (6.3-8.2)
[2020-04-23] MEDS ORDERED: HYDROmorphone 1 MG/ML 1 ML SYRINGE IVP STA (15:21)
--- NOTE | 2020-04-23 15:52 | CT ---
EXAMINATION TYPE: CT abdomen pelvis w con DATE OF EXAM: 04/23/2020 COMPARISON: 01/04/2020 HISTORY: 54-year-old female with abdominal, left lower quadrant pain, suspected diverticulitis. TECHNIQUE: Contiguous axial scanning of the abdomen and pelvis following administration of 100 ml Iso michael 300 IV contrast. Delayed images through the kidneys and coronal/sagittal reconstructions perform ed. CT DLP: 1195.3 mGycm Automated exposure control for dose reduction was used. FINDINGS: LUNG BASES: Strandy atelectasis at the left lung base without pleural effusion. LIVER/GB: Mildly dilated bile duct 8 mm probably due to postcholecystectomy status. No intrahepatic d uctal dilatation. No focal liver lesion. Portal venous system is patent. PANCREAS: Mild fatty atrophy. SPLEEN: No significant abnormality is seen. ADRENALS: No significant abnormality is seen. KIDNEYS: No significant abnormality is seen. BOWEL: A 2.2 cm diverticulum of the third portion of the duodenum projecting up into the pancreatic h ead region. Postsurgical change of Jose fundoplication. There are scattered prominent fluid-filled small bowel loops in the left side of the abdomen. No dilated small bowel, free fluid, or free air. S cattered mild stool. There is sigmoid diverticulosis. No pericolonic inflammatory change. LYMPH NODES: No mesenteric or retroperitoneal lymphadenopathy. PELVIS: Bladder partially. Uterus surgically absent. Multiple pelvic phleboliths. No abnormal fluid c ollection in the pelvis or pelvic lymphadenopathy. BONES: L5-S1 posterior and interbody fusion. Grade 1 retrolisthesis above the fusion at L4-L5. Degene rative endplate change anteriorly at L2-L3. Mild degenerative change of the hips. Hardware fusion acr oss the right SI joint. IMPRESSION: 1. PROMINENT FLUID-FILLED SMALL BOWEL LOOPS IN THE LEFT SIDE OF THE ABDOMEN. CORRELATE FOR REGIONAL I LEUS OR ENTERITIS. 2. THERE IS SIGMOID DIVERTICULOSIS BUT NO FINDINGS OF ACUTE DIVERTICULITIS AT THIS TIME.
[2020-04-23] MEDS ORDERED: SODIUM CHLORIDE 0.9% 500 ML 500 ML IV ONE (15:56)
--- NOTE | 2020-04-23 16:13 | ED ---
General Adult HPI - General Chief complaint: Abdominal Pain Stated complaint: Abd pain Time Seen by Provider: 04/23/20 13:18 Source: patient, RN notes reviewed, old records reviewed Mode of arrival: ambulatory Limitations: no limitations - History of Present Illness Initial comments: 54-year-old female patient presents ED for evaluation of left lower quadrant abdominal pain. Patient reports that she has had some chronic abdominal pain since she had hernia surgery a few months ago of power patient reports that the pain has gotten worse. Denies any other acute complaints at this time. Systemic: Pt denies fatigue, fever/chills, rash. Pt denies weakness, night sweats, weight loss. Neuro: Pt denies headache, visual disturbances, syncope or pre-syncope. HEENT: Pt denies ocular discharge or irritation, otalgia, rhinorrhea, pharyngitis or notable lymphadenopathy. Cardiopulmonary: Pt denies chest pain, SOB, heart palpitations, dyspnea on exertion. Abdominal/GI: Pt denies n/v/d. : Pt denies dysuria, burning w/ urination, frequency/urgency. Denies new onset urinary or bowel incontinence. MSK: Pt denies myalgia, loss of strength or function in extremities. Neuro: Pt denies new onset weakness, paresthesias. - Related Data Home Medications Medication Instructions Recorded Confirmed Ezetimibe [Zetia] 10 mg PO HS 09/05/14 03/12/20 Fluticasone Propionate 1 spray EA NOSTRIL BID 11/25/15 03/12/20 Citalopram Hydrobromide [CeleXA] 40 mg PO DAILY 12/10/15 03/12/20 OXcarbazepine [Trileptal] 600 mg PO BID 12/10/15 03/12/20 Levothyroxine Sodium [Synthroid] 50 mcg PO DAILY 03/13/16 03/12/20 Simethicone [Gas-X] 125 mg PO Q8H PRN 10/19/16 03/12/20 Omeprazole 40 mg PO BID 11/13/16 03/12/20 clonazePAM [KlonoPIN] 0.5 mg PO BID PRN 05/03/17 03/12/20 Methylphenidate HCl 20 mg PO TID 09/09/18 03/12/20 busPIRone HCL 15 mg PO BID 02/05/19 03/12/20 Fluticasone/Vilanterol [Breo 1 puff INHALATION RT-DAILY 07/24/19 03/12/20 Ellipta 100-25 Mcg Inhaler] Montelukast Sodium [Singulair] 10 mg PO HS 07/24/19 03/12/20 Atorvastatin Calcium [Lipitor] 10 mg PO HS 10/06/19 03/12/20 estradioL [Estrace] 0.5 mg PO DAILY 10/06/19 03/12/20 Albuterol Inhaler [Ventolin Hfa 2 puff INHALATION RT-QID PRN 03/12/20 03/12/20 Inhaler] Varenicline [Chantix Continuing 1 mg PO BID 03/12/20 03/12/20 Pack] Previous Rx's Medication Instructions Recorded Cyclobenzaprine [Flexeril] 10 mg PO BID PRN #60 tab 02/28/20 HYDROcodone/APAP 10-325MG [Gordon 1 tab PO Q8H PRN #90 tab 02/28/20 10-325] predniSONE 50 mg PO DAILY #4 tab 03/12/20 Allergies Allergy/AdvReac Type Severity Reaction Status Date / Time Penicillins Allergy Rash/Hives Verified 04/23/20 12:35 Review of Systems ROS Statement: Those systems with pertinent positive or pertinent negative responses have been documented in the HPI. ROS Other: All systems not noted in ROS Statement are negative. Past Medical History Past Medical History: Asthma, COPD, GERD/Reflux, Hyperlipidemia, Osteoarthritis (OA), Syncope, Thyroid Disorder Additional Past Medical History / Comment(s): kidney stones, hypoglycemia, chronic neck and L shoulder, lower back pain. Hx L facial and L ankle fxs, sinus problems, vertigo, falls in past due to syncope, low BP at times. Fusion of sacrum and iliac crest-per . 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 Rectocele repair. colonoscopy, d&c Past Anesthesia/Blood Transfusion Reactions: Previous Problems w/ Anesthesia Additional Past Anesthesia/Blood Transfusion Reaction / Comment(s): "Takes yuri onur to wake up from anesthesia." Past Psychological History: ADD/ADHD, Anxiety, Depression Smoking Status: Current every day smoker Past Alcohol Use History: None Reported Past Drug Use History: None Reported - Past Family History Mother Family Medical History: Cancer Additional Family Medical History / Comment(s): lung Father Family Medical History: Asthma, COPD, Osteoarthritis (OA) Additional Family Medical History / Comment(s): Father at age 80 yrs. General Exam - General Exam Comments Initial Comments: Constitutional: NAD, AOX3, Pt has pleasant affect. HEENT: NC/AT, trachea midline, neck supple, no lymphadenopathy. External ears appear normal, without discharge. Mucous membranes moist. Eyes PERRLA, EOM intact. There is no scleral icterus. No pallor noted. Cardiopulmonary: RRR, no murmurs, rubs or gallops, no JVD noted. Lungs CTAB in anterior and posterior vasquez. No peripheral edema. Abdominal exam: Abdomen soft and non-distended. Abdomen moderately tender to palpation left lower quadrant region. Bowel sounds active in LLQ. No hepatosplenomegaly. No ecchymosis Neuro: CN II-XII grossly intact. No nuchal rigidity. No raccon eyes, no alicea sign, no hemotympanum. No cervical spinal tenderness. MSK: No posterior calf tenderness bilaterally, homans sign negative bilaterally. Posterior tibialis and radial pulse +2 bilaterally. Sensation intact in upper and lower extremities. Full active ROM in upper and lower extremities, 5/5 stregnth. Limitations: no limitations Course Vital Signs 04/23/20 12:31 Temperature 98.7 F Pulse Rate 59 L Respiratory 16 Rate Blood Pressure 126/80 O2 Sat by Pulse 100 Oximetry Medical Decision Making - Medical Decision Making 54-year-old female patient with seizure evaluation of left lower quadrant abdominal pain. Patient without signs are stable, afebrile. Physical exam displayed a mild amount left lower quadrant tenderness. Laboratory investigatio ns were obtained displayed mildly decreased sodium around patient's baseline. Patient was administered fluid bolus. Shared decision making I discussed advanced imaging with patient and she believes that this is a change from her baseline pain she wishes to have it done. CT abdomen and pelvis displayed prominent fluid-filled small bowel loops in left side of the abdomen correlate for regional ileus or enteritis. Sigmoid diverticulosis without diverticulitis. Patient is passing stool. Patient was discharged outpatient follow-up with GI and her surgeon. Case discussed with Dr. Flores. - Lab Data Result diagrams: 04/23/20 14:28 04/23/20 14:28 Lab Results 04/23/20 04/23/20 04/23/20 Range/Units 13:57 14:28 14:28 WBC 9.1 (3.8-10.6) k/uL RBC 4.13 (3.80-5.40) m/uL Hgb 10.9 L (11.4-16.0) gm/dL Hct 33.7 L (34.0-46.0) % MCV 81.6 (80.0-100.0) fL MCH 26.4 (25.0-35.0) pg MCHC 32.3 (31.0-37.0) g/dL RDW 14.9 (11.5-15.5) % Plt Count 305 (150-450) k/uL Neutrophils % 61 % Lymphocytes % 29 % Monocytes % 5 % Eosinophils % 2 % Basophils % 1 % Neutrophils # 5.5 (1.3-7.7) k/uL Lymphocytes # 2.6 (1.0-4.8) k/uL Monocytes # 0.5 (0-1.0) k/uL Eosinophils # 0.2 (0-0.7) k/uL Basophils # 0.1 (0-0.2) k/uL Sodium 129 L (137-145) mmol/L Potassium 4.5 (3.5-5.1) mmol/L Chloride 96 L (98-107) mmol/L Carbon Dioxide 25 (22-30) mmol/L Anion Gap 8 mmol/L BUN 6 L (7-17) mg/dL Creatinine 0.55 (0.52-1.04) mg/dL Est GFR (CKD-EPI)AfAm >90 (>60 ml/min/1.73 sqM) Est GFR (CKD-EPI)NonAf >90 (>60 ml/min/1.73 sqM) Glucose 94 (74-99) mg/dL Plasma Lactic Acid Chito (0.7-2.0) mmol/L Calcium 8.8 (8.4-10.2) mg/dL Total Bilirubin 0.3 (0.2-1.3) mg/dL AST 27 (14-36) U/L ALT 16 (4-34) U/L Alkaline Phosphatase 106 (38-126) U/L Total Protein 6.8 (6.3-8.2) g/dL Albumin 4.2 (3.5-5.0) g/dL Lipase 42 (23-300) U/L Urine Color Yellow Urine Appearance Cloudy H (Clear) Urine pH 7.0 (5.0-8.0) Ur Specific Gunter 1.013 (1.001-1.035) Urine Protein Negative (Negative) Urine Glucose (UA) Negative (Negative) Urine Ketones Negative (Negative) Urine Blood Negative (Negative) Urine Nitrite Negative (Negative) Urine Bilirubin Negative (Negative) Urine Urobilinogen <2.0 (<2.0) mg/dL Ur Leukocyte Esterase Negative (Negative) Urine WBC 1 (0-5) /hpf Ur Squamous Epith Cells 13 H (0-4) /hpf Urine Bacteria Rare H (None) /hpf Hyaline Casts 1 (0-2) /lpf Urine Mucus Rare H (None) /hpf 04/23/20 Range/Units 14:28 WBC (3.8-10.6) k/uL RBC (3.80-5.40) m/uL Hgb (11.4-16.0) gm/dL Hct (34.0-46.0) % MCV (80.0-100.0) fL MCH (25.0-35.0) pg MCHC (31.0-37.0) g/dL RDW (11.5-15.5) % Plt Count (150-450) k/uL Neutrophils % % Lymphocytes % % Monocytes % % Eosinophils % % Basophils % % Neutrophils # (1.3-7.7) k/uL Lymphocytes # (1.0-4.8) k/uL Monocytes # (0-1.0) k/uL Eosinophils # (0-0.7) k/uL Basophils # (0-0.2) k/uL Sodium (137-145) mmol/L Potassium (3.5-5.1) mmol/L Chloride (98-107) mmol/L Carbon Dioxide (22-30) mmol/L Anion Gap mmol/L BUN (7-17) mg/dL Creatinine (0.52-1.04) mg/dL Est GFR (CKD-EPI)AfAm (>60 ml/min/1.73 sqM) Est GFR (CKD-EPI)NonAf (>60 ml/min/1.73 sqM) Glucose (74-99) mg/dL Plasma Lactic Acid Chito 1.0 (0.7-2.0) mmol/L Calcium (8.4-10.2) mg/dL Total Bilirubin (0.2-1.3) mg/dL AST (14-36) U/L ALT (4-34) U/L Alkaline Phosphatase (38-126) U/L Total Protein (6.3-8.2) g/dL Albumin (3.5-5.0) g/dL Lipase (23-300) U/L Urine Color Urine Appearance (Clear) Urine pH (5.0-8.0) Ur Specific Gunter (1.001-1.035) Urine Protein (Negative) Urine Glucose (UA) (Negative) Urine Ketones (Negative) Urine Blood (Negative) Urine Nitrite (Negative) Urine Bilirubin (Negative) Urine Urobilinogen (<2.0) mg/dL Ur Leukocyte Esterase (Negative) Urine WBC (0-5) /hpf Ur Squamous Epith Cells (0-4) /hpf Urine Bacteria (None) /hpf Hyaline Casts (0-2) /lpf Urine Mucus (None) /hpf Disposition Clinical Impression: Abdominal pain Disposition: HOME SELF-CARE Condition: Stable Instructions (If sedation given, give patient instructions): Abdominal Pain (ED) Additional Instructions: Follow-up with PCP and previously established surgeon tomorrow. Return to ER if any worsening symptoms. Is patient prescribed a controlled substance at d/c from ED?: No Referrals: Ihsan Ding DO [Primary Care Provider] - 1-2 days Jeremiah Alvarenga MD [STAFF PHYSICIAN] - 1-2 days
[2020-04-23 18:22] VITALS: BP 144/78; PULSE 80; RESP 18; TEMP 97.3
== END 2020-04-23 18:22 | disposition home or self-care (01) ==
LOC: EC 12:15
DX: R10.32 Left lower quadrant pain (principal); G89.29 Other chronic pain; K57.30 Diverticulosis of large intestine without perforation or abscess without bleeding; J44.9 Chronic obstructive pulmonary disease, unspecified; K21.9 Gastro-esophageal reflux disease without esophagitis; E78.5 Hyperlipidemia, unspecified; F41.9 Anxiety disorder, unspecified; F32.9 Major depressive disorder, single episode, unspecified; E07.9 Disorder of thyroid, unspecified; F17.200 Nicotine dependence, unspecified, uncomplicated; Z79.890 Hormone replacement therapy; Z79.51 Long term (current) use of inhaled steroids; Z79.899 Other long term (current) drug therapy; Z88.0 Allergy status to penicillin; Z87.442 Personal history of urinary calculi
CPT/HCPCS: 36415; 80053; 83605; 83690; 85025; 81001; 74177; 99285; 96374; 96375; 96361; J2270; J1170; Q9967

== ENCOUNTER → 2020-04-24 | Outpatient (CLI) | payer MEDICARE, OTHER ==
[2020-04-24 09:13] VITALS: RESP 16; TEMP 98.3
[2020-04-24 09:23] VITALS: BP 119/62; PULSE 91
--- NOTE | 2020-04-24 09:29 | P.PN ---
Subjective Progress Note Date: 04/24/20 This is a follow-up visit for this 54 years old female with a chronic history of severe neck pain ,and low back pain, she is diagnosed with cervical spondylosis and cervical degenerative disc disease, and myofascial pain syndrome cervical area , failed back surgery syndrome lumbar area, she continued to have severe neck pain, which is increased with any neck movement , she is currently on Sterling 10/325 every 8 hours and Flexeril 10 mg twice a day, she is able to ambulate, she had no motor or sensory deficit, but the intensity of the pain interfering with her quality of life. She denies any fever or night sweats which denies any change in the bowel movement or urination,MRI of the cervical spine showed the cervical spinal stenosis spinal stenosis, she was evaluated by neurosurgeon at [facility] and she is scheduled to have surgical interventions on her cervical spine by the End of the month Physical Examinations : -Constitutiona : Cooperative , not in acute distress . -HEENT : nech : supple , no Lymphadenopathy , normal thyroid size . : eyes : no ptosis , no icterus, no photophobia . : ENT : normal of hearing , normal oropharynx , no Thrush . - Respiratory : Chest clear to auscultations Bilaterally , no wheezing , no Rhonchi . - Cardiovascula : regular rate and rhythem , S1 , S2 , no S3 , no S4. - Gastrointestina : abdomen soft no tenderness , bowel sounds , no organomegally . - Genitourinary : Defferred . - neurologic : Cranial nerve II to XII intact , no focal neurological deffecit . -psychatric : alert , oriented X 3 , appropriate affect , intact judgment and insight . -Lymphatic : no Lymphadenopathy . - musculoskeltal : Cervical Spine motor stregnth in the deltoid and biceps, normal right side , normal Left side motor stregnth biceps and the wrist extensors normal right side ,normal left side . motor stregnth in the triceps muscle . normal Right side , normal Left side deep tendon reflexes normal at the biceps , normal at Brachioradialis , normal at triceps. cervical facet loading test= Positive Bilaterally Spurling test= positive bilaterally. Neck distraction test= positive bilaterally. Les sign= positive bilaterally. Lumber spine moter stegnth lower extremities ,thigh and legs 5/5 Right side , 5/5 Left side MRI of the cervical spine done 03/23/2020 showed multilevel cervical foraminal stenosis Assessment and Plan chronic low back pain secondary to failed back surgery syndrome and lumbar area , lumbar spondylosis with lumbar facet arthropathy . Myofascial pain syndrome cervical. cervical radiculopathy, multilevel cervical foraminal stenosis chronic and current use of high-risk medication (opioids) Patient denies any side effects of the current pain medication and the current treatment/medication helping the patient to do activity of daily living , Diagnoses, prognosis, treatment options, including but not limited to physical therapy, medication management, interventional therapies, and surgery, were discussed with the patient All the questions answered The narcotic consent was signed and patient agreed and understood the side effects and complications of opioid treatment. Patient signed the narcotic agreement, and was orally counseled, not to overuse, not to abuse, not to Divert , not tp sell pain medication, and to take it as prescribed only, Patient was counseled not to drive or operate heavy equipment while using narcotic medication, and advised not to use alcohol or any Illicit drugs while using the narcotis. understanding that lack of compliance with any of the above instructions, will likely to cause discharge from, the pain service, not to renew his narcotic prescriptions MAPS Reviwed and it was apropriate . Medication managements= patient will be given prescription refills for Sterling 10/325 every 8 hours dispense 90 with 1 refill, Flexeril 10 mg 2 times a day with one refill. Interventions= none. patient is scheduled to have neurosurgery at [facility] for cervical decompression and fusion to be done at the end of the months Patient will be seen in the pain clinic in 2 months, , PQRS Measure Charge Sheet Measure #130: Documentation of Current Meds in Medical Chart: Patient's medications documented in chart Measure #226: Tobacco Use: Screen & Cessation Intervention: Pt screened for tobacco use AND intervention given Measure #111: Pneumonia Vaccination: Pneumococcal vaccine administered or previously received Measure #47: Advance Care Plan: Advance care planning discussed & documented, pt chose/unable to give Measure #412: Opioid Treatment Agreement: Documented signed opioid trtmnt agreemnt min once during opioid trtmnt Measure #408: Opioid Therapy Follow-up Evaluation: Patient had f/u eval minimum every 3 months during opioid therapy Measure #317: Preventitive Care & Scrn High Bld Press & F/U: Normal blood pressure, f/u not required Measure #128: Body Mass Index (BMI) Screening & Follow-up: BMI documented ABOVE normal parameters - f/u documented Measure #131: Pain Assessment & Follow-up: Pain positive & plan documented, Follow-up scheduled Measure #431: Unhealthy Alcohol Use Preventative Care & Scrn: Patient not identified as an unhealthy alcohol user PQRS Narrative: - Controlled Substance Measures Is patient prescribed a controlled substance at discharge?: Yes When asked, does pt state using other controlled substances?: No If prescribed controlled substance>3 days was MAPS reviewed?: Yes If Rx opioid, was Start Talking consent form obtained?: Yes If opioid is for acute pain is fill amount 7 days or less?: No Was information provided regarding opioid addiction?: Yes Objective - Vital Signs Vital signs: Vital Signs Temp 98.3 F 04/24/20 09:06 Pulse 91 04/24/20 09:06 Resp 16 04/24/20 09:06 BP 119/62 04/24/20 09:06 Pulse Ox 98 04/24/20 09:06 Intake & Output 04/23/20 04/24/20 04/24/20 18:59 06:59 18:59 Weight 81.647 kg
== END | disposition home or self-care (01) ==
LOC: PNWHC3 08:53
PROVIDERS: ATTEND Specialist
DX: M47.816 Spondylosis without myelopathy or radiculopathy, lumbar region (principal); M79.81 Nontraumatic hematoma of soft tissue; M54.12 Radiculopathy, cervical region; M48.02 Spinal stenosis, cervical region; M96.1 Postlaminectomy syndrome, not elsewhere classified; G89.29 Other chronic pain; Z79.891 Long term (current) use of opiate analgesic
CPT/HCPCS: 99211

== ENCOUNTER → 2020-05-06 | Outpatient (CLI) | payer MEDICARE, OTHER ==
--- NOTE | 2020-05-06 09:42 | XR ---
EXAMINATION TYPE: XR chest 2V DATE OF EXAM: 05/06/2020 COMPARISON: Chest x-ray October 06, 2019 and older studies. HISTORY: History of COPD and asthma. Presurgical study. TECHNIQUE: Frontal and lateral views of the chest are obtained. FINDINGS: There is no suspicious new focal air space opacity, pleural effusion, or pneumothorax seen . Left basilar opacity silhouetting inferior margin left heart border is unchanged from July 24 019 study. Suspect prominent fat pad. The cardiac silhouette size remains within normal limits. Posts urgical change to the cervical spine is redemonstrated. IMPRESSION: No acute cardiopulmonary process. No significant change from prior.
[2020-05-06 10:48] LABS: Basophils # (A) 0.1 k/uL (0-0.2); Basophils % (A) 1 %; Eosinophils # (A) 0.1 k/uL (0-0.7); Eosinophils % (A) 2 %; HCT 34.2 % (34.0-46.0); HGB 10.7 gm/dL (11.4-16.0); Lymphocytes % (A) 22 %; MCH 26.2 pg (25.0-35.0); MCHC 31.3 g/dL (31.0-37.0); MCV 83.6 fL (80.0-100.0); Mean Platelet Volume 7.6; Monocytes # (A) 0.4 k/uL (0-1.0); Monocytes % (A) 5 %; Neutrophils # (A) 6.1 k/uL (1.3-7.7); Neutrophils % (A) 69 %; Platelet Count 343 k/uL (150-450); RBC 4.09 m/uL (3.80-5.40); WBC 8.9 k/uL (3.8-10.6)
[2020-05-06 11:23] LABS: Appearance,Urine Turbid (Clear); Bacteria,Urine Moderate /hpf; Bilirubin,Urine Negative (Negative); Blood,Urine Negative (Negative); Color,Urine Yellow; Glucose,Urine (UA) Negative (Negative); Ketones,Urine Negative (Negative); Leukocyte Esterase,Urine Negative (Negative); Mucus,Urine Many /hpf; Nitrite,Urine Negative (Negative); PH, Urine 6.5 (5.0-8.0); Protein,Urine Trace (Negative); RBC,Urine 2 /hpf (0-5); Specific Gravity,Urine 1.021 (1.001-1.035); Squamous Epithelial Cell,Urine 63 /hpf (0-4); Urobilinogen,Urine <2.0 mg/dL (<2.0); WBC,Urine 7 /hpf (0-5)
[2020-05-06 16:32] LABS: INR 0.93 (0.90-1.11); Partial Thromboplastin Time 28.2 sec (24.7-29.9)
[2020-05-06 16:42] LABS: Albumin 4.5 g/dL (3.80-4.90); Albumin/Globulin Ratio 2.05 (1.60-3.17); Anion Gap 7.2 mmol/L (4.00-12.00); BUN/Creat Ratio 12.86 Ratio (12.00-20.00); Calcium 8.8 mg/dL (8.7-10.3); Carbon Dioxide 26.8 mmol/L (21.6-31.8); Globulin 2.2 g/dL (1.6-3.3); Non-African American GFR(CKD) 97.5 (60.0-200.0); Total Bilirubin 0.2 mg/dL (0.3-1.2); Total Protein 6.7 g/dL (6.2-8.2)
== END | disposition home or self-care (01) ==
LOC: LABWHC1 09:13
PROVIDERS: ATTEND Neurological Surgery
DX: M50.00 Cervical disc disorder with myelopathy, unspecified cervical region (principal); M54.12 Radiculopathy, cervical region
CPT/HCPCS: 36415; 71046; 80053; 81001; 85025; 85610; 85730; 87070

== ENCOUNTER → 2020-06-12 | Outpatient (CLI) | payer MEDICARE, OTHER ==
--- NOTE | 2020-06-12 17:08 | XR ---
EXAMINATION TYPE: XR cervical spine w flex/ext DATE OF EXAM: 06/12/2020 TECHNIQUE: Frontal, lateral neutral/flexion/extension, obliques, and open mouth view of the cervical spine are obtained. HISTORY: M47.22 Spondylosis M50.00 Cervical disc disorder COMPARISON: Cervical radiograph with flexion and extension 03/23/2020. FINDINGS: The cervical spine is visualized from C1 thru the bottom of C7 level. There is redemonstra justo anterior fixation plate with vertebral body screws and interbody spacer devices from C4 through C 6. There is been interval placement of screws within the lateral masses at C4-C5 and C5-C6 bilaterall y. No evidence of hardware fracture or migration. There is grade 1 anterolisthesis of C6 on C7 which is not assessed on flexion and extension as this level is obscured by the shoulders. There is grade 1 anterolisthesis of C2 on C3 on neutral and flexion views, which improves with extension. No acute fr acture or dislocation. The pre-vertebral soft tissue appears within normal limits. Neural foramina de monstrate varying degrees of multilevel bilateral bony encroachment. The atlantoaxial relationship an d base of the dens is within normal limits on the open mouth view. IMPRESSION: 1. No acute fracture or dislocation is seen in the cervical spine. 2. Cervical spine fixation hardware from C4 through C6, with interval placement of screws within the bilateral lateral masses at C4-C5 and C5-C6. No evidence of hardware failure. 3. Grade 1 anterolisthesis of C2 on C3 on neutral and extension views, which improves with extension . 4. Grade 1 anterolisthesis of C6 on C7, which is not assessed on flexion and extension due to obscur ation by the shoulders.
== END | disposition home or self-care (01) ==
LOC: RADXRMAIN 13:52
PROVIDERS: ATTEND Neurological Surgery
DX: M47.22 Other spondylosis with radiculopathy, cervical region (principal); M50.00 Cervical disc disorder with myelopathy, unspecified cervical region
CPT/HCPCS: 72052

== ENCOUNTER → 2020-06-19 | Outpatient (CLI) | payer MEDICARE, OTHER ==
[2020-06-19 09:10] VITALS: BP 121/71; PULSE 90; RESP 14; TEMP 98
--- NOTE | 2020-06-19 09:20 | P.PAINPG ---
Subjective Progress Note Date: 06/19/20 Ivana 54-year-old female presenting today for follow-up. She had neck surgery about 6 weeks ago. She had posterior fusion. Should history of anterior cervical fusion. She reports that the numbness and tingling in her right arm has improved but she still having some pain shooting down the arm. She is w orking with physical therapy. As for her low back pain she has pain across her back and into the right buttock sometimes on the right leg. She has a history of spinal fusion in the lumbar spine. She finds medications do help. Her VAS today is about 45 out of 10 in the low back. She had a caudal epidural lysis and reports that helped significantly with this pain that she is having now. She denies any overt weakness, denies any chest patient's of breath or any bowel or bladder incontinence. Objective - Vital Signs Vital signs: Vital Signs Temp 98.0 F 06/19/20 09:01 Pulse 90 06/19/20 09:01 Resp 14 06/19/20 09:01 BP 121/71 06/19/20 09:01 Pulse Ox 97 06/19/20 09:01 - Exam General: Awake and alert oriented 3 no distress Respiratory exam: No audible wheezing no accessory muscle usage Cardiovascular exam: regular rate, palpable bilateral pulses, no lower extremity edema Abdominal exam: No distention nontender to palpation Cervical spine: Normal alignment, cervical incisions are healing well. 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 Right biceps strength is 3 out of 5 compared to 5 out of 5 and left. Lumbar spine: There is loss of lumbar lordosis atrophy of the paraspinal muscles. Incision is well-healed. Right lower shoulder strength is 4-5 compared to 5 out of 5 on the left. Neuro exam: Normal sensation in bilateral upper extremities, deep tendon reflexes are 2+ bilateral upper extremities. Normal sensation in bilateral lower extremities. Deep tendon reflexes are 2+ in lower extremities Psych exam: Cooperative, appropriate mood Assessment and Plan Assessment: #1 lumbar postlaminectomy syndrome #2 lumbar radiculopathy #3 cervical radiculopathy #4 cervical degenerative disc disease Plan: At this point we'll continue the current medications which include Rogers as well as Flexeril. I discussed with the patient she should talk to her primary care physician about either decreasing or eliminating the Ritalin versus the Klonopin. There is no point in taking 1 medication and keep her awake in one to put her sleep. We discussed the risks of using all these medications chronically. We'll also discussed repeating the caudal epidural with lysis PQRS Measure Charge Sheet Measure #130: Documentation of Current Meds in Medical Chart: Patient's medications documented in chart Measure #226: Tobacco Use: Screen & Cessation Intervention: Pt screened for tobacco use AND intervention given Measure #111: Pneumonia Vaccination: Pneumococcal vaccine administered or previously received Measure #47: Advance Care Plan: Advance care planning discussed & documented, plan or surrogate given Measure #412: Opioid Treatment Agreement: Documented signed opioid trtmnt agreemnt min once during opioid trtmnt Measure #408: Opioid Therapy Follow-up Evaluation: Patient had NO f/u eval minimum every 3 months during opioid therapy Measure #317: Preventitive Care & Scrn High Bld Press & F/U: Normal blood pressure, f/u not required Measure #128: Body Mass Index (BMI) Screening & Follow-up: BMI documented ABOVE normal parameters - f/u documented Measure #131: Pain Assessment & Follow-up: Pain positive & plan documented Measure #431: Unhealthy Alcohol Use Preventative Care & Scrn: Patient not identified as an unhealthy alcohol user PQRS Narrative: Smoking Status Former smoker Narcotic Agreement Date Signed 08/24/19 Blood Pressure 121/71 Pain Intensity [Right Neck] 7 Pain Intensity [Back] 8 Scale Used Numeric (1 - 10) Hx Alcohol Use (MH) No Home Medications: Ambulatory Orders Ezetimibe [Zetia] 10 mg PO HS 09/05/14 Fluticasone Propionate 1 spray EA NOSTRIL BID 11/25/15 Citalopram Hydrobromide [CeleXA] 40 mg PO DAILY 12/10/15 OXcarbazepine [Trileptal] 600 mg PO BID 12/10/15 Levothyroxine Sodium [Synthroid] 50 mcg PO DAILY 03/13/16 Simethicone [Gas-X] 125 mg PO Q8H PRN 10/19/16 Omeprazole 40 mg PO BID 11/13/16 clonazePAM [KlonoPIN] 0.5 mg PO BID PRN 05/03/17 Methylphenidate HCl 20 mg PO TID 09/09/18 busPIRone HCL 15 mg PO BID 02/05/19 Fluticasone/Vilanterol [Breo Ellipta 100-25 Mcg Inhaler] 1 puff INHALATION RT- DAILY 07/24/19 Montelukast Sodium [Singulair] 10 mg PO HS 07/24/19 Atorvastatin Calcium [Lipitor] 10 mg PO HS 10/06/19 estradioL [Estrace] 0.5 mg PO DAILY 10/06/19 Albuterol Inhaler [Ventolin Hfa Inhaler] 2 puff INHALATION RT-QID PRN 03/12/20 Cholecalciferol [Vitamin D3 (25 Mcg = 1000 Iu)] 1,000 unit PO DAILY 06/14/20 Cyanocobalamin (Vitamin B-12) [Vitamin B-12] 1,000 mcg PO DAILY 06/14/20 Cyclobenzaprine [Flexeril] 10 mg PO BID PRN #60 tab 06/19/20 HYDROcodone/APAP 10-325MG [Rogers 10-325] 1 tab PO Q8H PRN #90 tab 06/19/20 HYDROcodone/APAP 10-325MG [Rogers 10-325] 1 tab PO Q8HR PRN 30 Days #90 tab 06/19/20 Controlled Substance Measures - Controlled Substance Measures Is patient prescribed a controlled substance at discharge?: Yes When asked, does pt state using other controlled substances?: No If prescribed controlled substance>3 days was MAPS reviewed?: Yes If Rx opioid, was Start Talking consent form obtained?: Yes If opioid is for acute pain is fill amount 7 days or less?: No Was information provided regarding opioid addiction?: Yes
== END | disposition home or self-care (01) ==
LOC: PNWHC3 08:46
PROVIDERS: ATTEND Hospitalist
DX: M96.1 Postlaminectomy syndrome, not elsewhere classified (principal); M50.10 Cervical disc disorder with radiculopathy, unspecified cervical region; M54.16 Radiculopathy, lumbar region; Z79.891 Long term (current) use of opiate analgesic; Z79.899 Other long term (current) drug therapy; Z79.3 Long term (current) use of hormonal contraceptives; Z79.51 Long term (current) use of inhaled steroids; Z79.890 Hormone replacement therapy
CPT/HCPCS: 99211

== ENCOUNTER 2020-07-14 15:22 | Emergency (ER) | payer MEDICARE, OTHER ==
[2020-07-14 15:29] VITALS: BP 106/75; PULSE 90; RESP 18; TEMP 98.7
[2020-07-14] MEDS ORDERED: KETOROLAC 15 MG/ML 1 ML VIAL IM STA (15:56)
--- NOTE | 2020-07-14 16:02 | ED ---
Back Pain HPI - General Chief Complaint: Back Pain/Injury Stated Complaint: Pain Time Seen by Provider: 07/14/20 15:38 Source: patient Limitations: no limitations - History of Present Illness Initial Comments: Patient is a 55-year-old female presenting to emergency Department with complaints of an increase in her chronic neck pain for the last 2 days. Patient denies any falls or further injuries. She states she sees a neck surgeon out of [place] and also follows with the pain clinic here at [facility]. She had a cervical fusion earlier this year. Patient currently takes [place] for her pain but she feels like it is not been working in the last couple days. She denies any fever, chills, chest pain, shortness of breath. She states the pain is mostly on the right side of her neck with some radiation into her right arm. She states she does take a muscle relaxer at home already. She has no further complaints at this time. Upon arrival to the ER, her vitals are stable. - Related Data Home Medications Medication Instructions Recorded Confirmed Ezetimibe [Zetia] 10 mg PO HS 09/05/14 06/14/20 Fluticasone Propionate 1 spray EA NOSTRIL BID 11/25/15 06/14/20 Citalopram Hydrobromide [CeleXA] 40 mg PO DAILY 12/10/15 06/14/20 OXcarbazepine [Trileptal] 600 mg PO BID 12/10/15 06/14/20 Levothyroxine Sodium [Synthroid] 50 mcg PO DAILY 03/13/16 06/14/20 Simethicone [Gas-X] 125 mg PO Q8H PRN 10/19/16 06/14/20 Omeprazole 40 mg PO BID 11/13/16 06/14/20 clonazePAM [KlonoPIN] 0.5 mg PO BID PRN 05/03/17 06/14/20 Methylphenidate HCl 20 mg PO TID 09/09/18 06/14/20 busPIRone HCL 15 mg PO BID 02/05/19 06/14/20 Fluticasone/Vilanterol [Breo 1 puff INHALATION RT-DAILY 07/24/19 06/14/20 Ellipta 100-25 Mcg Inhaler] Montelukast Sodium [Singulair] 10 mg PO HS 07/24/19 06/14/20 Atorvastatin Calcium [Lipitor] 10 mg PO HS 10/06/19 06/14/20 estradioL [Estrace] 0.5 mg PO DAILY 10/06/19 06/14/20 Albuterol Inhaler [Ventolin Hfa 2 puff INHALATION RT-QID PRN 03/12/20 06/14/20 Inhaler] Cholecalciferol [Vitamin D3 (25 1,000 unit PO DAILY 06/14/20 06/14/20 Mcg = 1000 Iu)] Cyanocobalamin (Vitamin B-12) 1,000 mcg PO DAILY 06/14/20 06/14/20 [Vitamin B-12] Previous Rx's Medication Instructions Recorded Cyclobenzaprine [Flexeril] 10 mg PO BID PRN #60 tab 06/19/20 HYDROcodone/APAP 10-325MG [And[place] 1 tab PO Q8H PRN #90 tab 06/19/20 10-325] HYDROcodone/APAP 10-325MG [[place] 1 tab PO Q8HR PRN 30 Days #90 tab 06/19/20 10-325] predniSONE [Deltasone] 20 mg PO BID 5 Days #10 tab 07/14/20 Allergies Allergy/AdvReac Type Severity Reaction Status Date / Time Penicillins Allergy Rash/Hives Verified 07/14/20 15:30 Review of Systems ROS Statement: Those systems with pertinent positive or pertinent negative responses have been documented in the HPI. ROS Other: All systems not noted in ROS Statement are negative. Past Medical History Past Medical History: Asthma, COPD, GERD/Reflux, Hyperlipidemia, Osteoarthritis (OA), Syncope, Thyroid Disorder Additional Past Medical History / Comment(s): kidney stones, hypoglycemia, chronic neck and L shoulder, lower back pain. Hx L facial and L ankle fxs, sinus problems, vertigo, falls in past due to syncope, low BP at times. Fusion of sacrum and iliac crest-per . 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 Rectocele repair. colonoscopy, d&c Past Anesthesia/Blood Transfusion Reactions: Previous Problems w/ Anesthesia Additional Past Anesthesia/Blood Transfusion Reaction / Comment(s): "Takes longer to wake up from anesthesia." Past Psychological History: ADD/ADHD, Anxiety, Depression Smoking Status: Current every day smoker Past Alcohol Use History: None Reported Past Drug Use History: None Reported - Past Family History Mother Family Medical History: Cancer Additional Family Medical History / Comment(s): lung Father Family Medical History: Asthma, COPD, Osteoarthritis (OA) Additional Family Medical History / Comment(s): Father at age 80 yrs. General Exam - General Exam Comments Initial Comments: GENERAL: Patient is well-developed and well-nourished. Patient is nontoxic and in no acute distress. HEAD: Atraumatic, normocephalic. EYES: Pupils equal round and reactive to light, extraocular movements intact, sclera anicteric, conjunctiva are normal. Eyelids were unremarkable. ENT: TMs normal, nares patent, oropharynx clear without exudates. Moist mucous membranes. NECK: Normal range of motion, supple without lymphadenopathy or JVD. No midline tenderness, some mild tenderness on the right cervical paraspinals, right upper trapezius muscle. LUNGS: Unlabored respirations. Breath sounds clear to auscultation bilaterally and equal. No wheezes rales or rhonchi. HEART: Regular rate and rhythm without murmurs, rubs or gallops. ABDOMEN: Soft, nontender, normoactive bowel sounds. No guarding, no rebound. No masses appreciated. : Deferred MUSCULOSKELETAL: Normal extremities with adequate strength and normal range of motion, no pitting or edema. No clubbing or cyanosis. Pattern Marker strength is equal and bilateral. NEUROLOGICAL: Patient is alert and oriented x 3. Motor and sensory are also intact. Cranial nerves II through XII grossly intact. Symmetrical smile. Normal speech, normal gait. PSYCH: Normal mood, normal affect. SKIN: Warm, Dry, normal turgor, no rashes or lesions noted. Limitations: no limitations Course Vital Signs 07/14/20 15:27 Temperature 98.7 F Pulse Rate 90 Respiratory 18 Rate Blood Pressure 106/75 O2 Sat by Pulse 99 Oximetry Medical Decision Making - Medical Decision Making Patient is a 55-year-old female here for chronic neck pain. She already takes Andover but states it is not helping over the past 2 days. She's had no further injuries or falls. Her exam shows no acute neuro deficits, her strength is equal in upper extremities. She's had no fevers no other symptoms. Patient already follows with the pain clinic here at [facility]. I discussed with patient that she needs to follow up with her doctors regarding her chronic pain, we will give her a shot of Toradol today and start her on a few days of steroids to help with inflammation. She can continue with her already prescribed medications. She is in agreement with the plan of care. She is stable for discharge. Return parameters were discussed with the patient she verbalized understanding. Disposition Clinical Impression: Chronic neck pain Disposition: HOME SELF-CARE Condition: Stable Instructions (If sedation given, give patient instructions): Neck Pain (ED) Additional Instructions: Please return to the Emergency Department if symptoms worsen or any other concerns. Recommend heat to the area, gentle stretching. Recommended alternating your Andover medications with ibuprofen. Follow up with your doctor for further pain. Prescriptions: predniSONE [Deltasone] 20 mg PO BID 5 Days #10 tab Is patient prescribed a controlled substance at d/c from ED?: No Referrals: Ihsan Ding DO [Primary Care Provider] - 1-2 days
== END 2020-07-14 16:13 | disposition home or self-care (01) ==
LOC: EC 15:22
DX: G89.29 Other chronic pain (principal); M54.2 Cervicalgia; F17.200 Nicotine dependence, unspecified, uncomplicated; J44.9 Chronic obstructive pulmonary disease, unspecified; K21.9 Gastro-esophageal reflux disease without esophagitis; E78.5 Hyperlipidemia, unspecified; M19.90 Unspecified osteoarthritis, unspecified site; E07.9 Disorder of thyroid, unspecified; F41.9 Anxiety disorder, unspecified; F32.9 Major depressive disorder, single episode, unspecified; F90.9 Attention-deficit hyperactivity disorder, unspecified type; Z79.51 Long term (current) use of inhaled steroids; Z79.890 Hormone replacement therapy; Z88.0 Allergy status to penicillin; Z79.899 Other long term (current) drug therapy; Z95.5 Presence of coronary angioplasty implant and graft; Z98.890 Other specified postprocedural states
CPT/HCPCS: 99283 ×2; 96372 ×2; J1885

== ENCOUNTER 2020-07-17 16:36 | Emergency (ER) | payer MEDICARE, OTHER ==
[2020-07-17 16:49] VITALS: BP 128/77; PULSE 89; RESP 18; TEMP 98.8
[2020-07-17] MEDS ORDERED: HYDROmorphone 1 MG/ML 1 ML SYRINGE IM STA (18:13)
--- NOTE | 2020-07-17 18:44 | ED ---
Headache HPI - General Chief Complaint: Headache Stated Complaint: headache-revisit Time Seen by Provider: 07/17/20 17:54 Mode of arrival: ambulatory Limitations: no limitations - History of Present Illness Initial Comments: 55-year-old female with history of headaches and neck pain presenting to the emergency department with a chief complaint of a headache. Patient states she takes Sanford for chronic neck pain. States she's had multiple spine surgeries in the neck. States now she has chronic neck pain is typically radiates to the head. States that she is usually able to control her headaches with [id number] medications but this time it is not touching it. She also reports taking Sanford that is prescribed to her by her pain management doctor with no improvement in symptoms. Patient states she has an appointment scheduled on Wednesday. She denies any fevers, night sweats or chills. Denies one-sided weakness or paresthesias. States this is not the worst headache for Michell was gradual onset headache. No photophobia or nausea or vomiting. - Related Data Home Medications Medication Instructions Recorded Confirmed Ezetimibe [Zetia] 10 mg PO HS 09/05/14 07/19/20 Fluticasone Propionate 1 spray EA NOSTRIL BID 11/25/15 07/19/20 Citalopram Hydrobromide [CeleXA] 40 mg PO DAILY 12/10/15 07/19/20 OXcarbazepine [Trileptal] 600 mg PO BID 12/10/15 07/19/20 Levothyroxine Sodium [Synthroid] 25 mcg PO DAILY 03/13/16 07/19/20 Simethicone [Gas-X] 125 mg PO Q8H PRN 10/19/16 07/19/20 Omeprazole 40 mg PO BID 11/13/16 07/19/20 clonazePAM [KlonoPIN] 0.5 mg PO BID PRN 05/03/17 07/19/20 Methylphenidate HCl 20 mg PO TID 09/09/18 07/19/20 busPIRone HCL 15 mg PO BID 02/05/19 07/19/20 Fluticasone/Vilanterol [Breo 1 puff INHALATION RT-DAILY 07/24/19 07/19/20 Ellipta 100-25 Mcg Inhaler] Montelukast Sodium [Singulair] 10 mg PO HS 07/24/19 07/19/20 Atorvastatin Calcium [Lipitor] 10 mg PO HS 10/06/19 07/19/20 estradioL [Estrace] 0.5 mg PO DAILY 10/06/19 07/19/20 Albuterol Inhaler [Ventolin Hfa 2 puff INHALATION RT-QID PRN 03/12/20 07/19/20 Inhaler] Cholecalciferol [Vitamin D3 (25 1,000 unit PO DAILY 06/14/20 07/19/20 Mcg = 1000 Iu)] Cyanocobalamin (Vitamin B-12) 1,000 mcg PO DAILY 06/14/20 07/19/20 [Vitamin B-12] Acetaminophen [Tylenol] 1,000 mg PO Q4-6H PRN 07/17/20 07/19/20 Azithromycin [Zithromax Z-pack (6 See Taper PO DIRECTED 07/17/20 07/19/20 tabs)] Cetirizine HCl 10 mg PO HS 07/17/20 07/19/20 Varenicline [Chantix Continuing 1 mg PO BID 07/17/20 07/19/20 Pack] Previous Rx's Medication Instructions Recorded Cyclobenzaprine [Flexeril] 10 mg PO BID PRN #60 tab 06/19/20 HYDROcodone/APAP 10-325MG [Sanford 1 tab PO Q8H PRN #90 tab 06/19/20 10-325] predniSONE [Deltasone] 20 mg PO BID 5 Days #10 tab 07/14/20 Allergies Allergy/AdvReac Type Severity Reaction Status Date / Time Penicillins Allergy Rash/Hives Verified 07/19/20 11:56 Review of Systems ROS Statement: Those systems with pertinent positive or pertinent negative responses have been documented in the HPI. ROS Other: All systems not noted in ROS Statement are negative. Past Medical History Past Medical History: Asthma, COPD, GERD/Reflux, Hyperlipidemia, Osteoarthritis (OA), Syncope, Thyroid Disorder Additional Past Medical History / Comment(s): kidney stones, hypoglycemia, chron ic neck and L shoulder, lower back pain. Hx L facial and L ankle fxs, sinus problems, vertigo, falls in past due to syncope, low BP at times. Fusion of sacrum and iliac crest-per . 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 Rectocele repair. colonoscopy, d&c Past Anesthesia/Blood Transfusion Reactions: Previous Problems w/ Anesthesia Additional Past Anesthesia/Blood Transfusion Reaction / Comment(s): "Takes longer to wake up from anesthesia." Past Psychological History: ADD/ADHD, Anxiety, Depression Smoking Status: Current every day smoker Past Alcohol Use History: None Reported Past Drug Use History: None Reported - Past Family History Mother Family Medical History: Cancer Additional Family Medical History / Comment(s): lung Father Family Medical History: Asthma, COPD, Osteoarthritis (OA) Additional Family Medical History / Comment(s): Father at age 80 yrs. General Exam Limitations: no limitations General appearance: alert, in no apparent distress Head exam: Present: atraumatic, normocephalic, normal inspection Eye exam: Present: normal appearance, PERRL, EOMI Pupils: Present: normal accommodation ENT exam: Present: normal exam, normal oropharynx, mucous membranes moist, TM's normal bilaterally, normal external ear exam Neck exam: Present: normal inspection, full ROM. Absent: tenderness Respiratory exam: Present: normal lung sounds bilaterally. Absent: respiratory distress, wheezes, rales, rhonchi, stridor Cardiovascular Exam: Present: regular rate, normal rhythm, normal heart sounds. Absent: bradycardia, tachycardia, systolic murmur, diastolic murmur, rubs Extremities exam: Present: normal inspection, full ROM, normal capillary refill. Absent: tenderness, pedal edema, joint swelling, calf tenderness Back exam: Present: normal inspection, full ROM. Absent: tenderness, CVA tenderness (R), CVA tenderness (L), muscle spasm, paraspinal tenderness, vertebral tenderness Neurological exam: Present: alert, oriented X3, normal gait Psychiatric exam: Present: normal affect, normal mood. Absent: depressed, agitated, anxious, flat affect, manic Skin exam: Present: warm, dry, intact, normal color Course Vital Signs 07/17/20 16:47 Temperature 98.8 F Pulse Rate 89 Respiratory 18 Rate Blood Pressure 128/77 O2 Sat by Pulse 98 Oximetry Medical Decision Making - Medical Decision Making 55-year-old female with acute on chronic neck pain is radiating to the head. This is her typical headache that originates from secondary to multiple surgeries. She has full range of motion in the neck. Vitals are stable. Patient was given some to medical control. States she feels much better and is going to follow-up on Wednesday with the pain management doctor. Return parameters were thoroughly discussed with patient is understanding and agreeable. Case discussed with physician. Disposition Clinical Impression: Headache, Neck pain Disposition: HOME SELF-CARE Condition: Stable Instructions (If sedation given, give patient instructions): Acute Headache (ED) Additional Instructions: Follow-up with pain management. Return to emergency department if symptoms worsen. Is patient prescribed a controlled substance at d/c from ED?: No Referrals: Ihsan Ding DO [Primary Care Provider] - 1-2 days Time of Disposition: 18:56
== END 2020-07-17 19:10 | disposition home or self-care (01) ==
LOC: EC 16:36
DX: R51.9 Headache, unspecified (principal); M54.2 Cervicalgia; F41.9 Anxiety disorder, unspecified; F32.9 Major depressive disorder, single episode, unspecified; F90.9 Attention-deficit hyperactivity disorder, unspecified type; F17.200 Nicotine dependence, unspecified, uncomplicated; J44.9 Chronic obstructive pulmonary disease, unspecified; K21.9 Gastro-esophageal reflux disease without esophagitis; E78.5 Hyperlipidemia, unspecified; M19.90 Unspecified osteoarthritis, unspecified site; E07.9 Disorder of thyroid, unspecified; Z79.51 Long term (current) use of inhaled steroids; Z79.890 Hormone replacement therapy; Z79.899 Other long term (current) drug therapy; Z88.0 Allergy status to penicillin; Z95.5 Presence of coronary angioplasty implant and graft; Z90.710 Acquired absence of both cervix and uterus; Z90.49 Acquired absence of other specified parts of digestive tract
CPT/HCPCS: 99283 ×2; 96372 ×2; J1170

== ENCOUNTER 2020-07-23 09:39 | Day surgery (SDC) | payer MEDICARE, OTHER ==
[2020-07-19 12:10] VITALS: BMI 32.9
[2020-07-23 10:00] VITALS: RESP 16; TEMP 94.8
[2020-07-23] MEDS ORDERED: LIDOCAINE 1% (10MG/ML) FOR IV START INTRADERMA ONE (10:09)
[2020-07-23] MEDS ORDERED: LACTATED RINGERS 1,000 ML IV ONE (10:09)
[2020-07-23] MEDS ORDERED: methylPREDNISolone ACETATE 40 MG/ML 1 ML VIAL ONE (10:19)
[2020-07-23] MEDS ORDERED: ROPIVACAINE 5MG/ML 20ML VIAL ONE (10:19)
[2020-07-23] MEDS ORDERED: IOPAMIDOL M200 10 ML VIAL ONE (10:19)
[2020-07-23] MEDS ORDERED: fentaNYL (PF) 50 MCG/ML 2 ML AMP ONE (10:19)
[2020-07-23] MEDS ORDERED: MIDAZOLAM 2 MG/2 ML VIAL ONE (10:19)
[2020-07-23] MEDS ORDERED: IV FLUID CONTINUATION 650 ML IV ONE (10:47)
--- NOTE | 2020-07-23 11:04 | FL ---
EXAMINATION TYPE: FL guided pain mgmt statistic DATE OF EXAM: 07/23/2020 HISTORY: Fluoroscopy time 19 seconds of fluoroscopy provided. IMPRESSION: 1. Fluoroscopy time.
[2020-07-23 11:06] VITALS: BP 103/66; PULSE 80
--- NOTE | 2020-07-24 11:13 | P.PCN ---
Date of Procedure: 07/23/20 Description of Procedure: PREOP DIAGNOSIS: 1- Lumbar postlaminectomy syndrome. 2 Myofascial pain syndrome POSTOP DIAGNOSIS:1- Lumbar postlaminectomy syndrome.2 Myofascial pain syndrome PROCEDURE: 1-Caudal epidural steroid injection with epidurolysis and epidurogram under fluoroscopic guidance. (Fluoroscopy images available in the radiology Department ) 2-caudal epidurogram. 3. Right cervical paraspinal, levator scapulae, rhomboid trigger point injections ANESTHESIA: Local with 1% lidocaine 3 ml ,and moderate sedation, with Versed 2 mg and fentanyl 150 g. 18 minutes sedation time EBL: Minimal. PROCEDURE INDICATION: The patient with post-laminectomy syndrome with low back pain and radiculopathy radiating down in both legs, here for a caudal epidural steroid injection with epidurolysis. She has had excellent relief >80% with previous procedures for >3months with improved ADLs. PROCEDURE DESCRIPTION: The patient was seen and identified in the preoperative area. Risks, benefits, complications, and alternatives were discussed with the patient. The patient agreed to proceed with the procedure and signed the consent. IV was started, and vital signs were stable. Patient was taken to the OR and time out was completed. The patient was placed in the prone position on procedure table and a pillow was placed under the abdomen to reduce lumbar lordosis. The lumbosacral area was prepped and draped in the usual sterile fashion. Vital signs were closely monitored during the procedure. lateral view and the anterior-posterior plates of the sacrum were identified with infiltration of the area overlying the sacral hiatus with 1% lidocaine .A 17 gauge RK epidural needle was used to advance through the sacral hiatus into the caudal epidural space. Omnipaque 180 dye. 2cc was injected and the position of the needle was verified to be in the midline. A Racz catheter was introduced into the epidural space and was advanced towards the L5-S1 interspace under direct fluoroscopic guidance. 2ml Omnipaque 200 dye was utilized and only left sided epidural spread was noted at L5-S1 and below. Multiple passes were made with the catheter for lysis of epidural adhesions. 2ml of omnipaque was injected after lysis which showed bilateral spread which coincides with patients complaints of rights buttock and leg pain. After negative aspiration, Depo-Medrol 40 mg with 3ml of preservative free Lidocaine 1% and 5 ml of preservative free normal saline was injected slowly. Additional spread was seen to L4 under fluoroscopy. The needle and the catheter were withdrawn intact. I then my attention to the right cervical paraspinal, levator scapulae, and rhomboid muscles. I Identified 6 trigger points and injected 1 mL of 0.5% ropivacaine in a total of 6 trigger point areas. I did this after cleaning the area and aspirating which was negative for any blood or air. COMPLICATIONS: None. DISPOSITION / PLANS: The patient was placed in a supine position and transferred to the recovery area in a stable condition for observation and was discharged from the recovery room after meeting discharge criteria. Home discharge instructions given to the patient by the staff. The patient was reexamined prior to discharge. The patient will schedule a follow up in the clinic in 2-4 weeks.
== END 2020-07-23 11:23 | disposition home or self-care (01) ==
LOC: ORPAIN 09:39
PROVIDERS: ATTEND Anesthesiology
DX: M79.18 Myalgia, other site (principal); M96.1 Postlaminectomy syndrome, not elsewhere classified; Z88.0 Allergy status to penicillin
CPT/HCPCS: 20553; 62264; J2250; J1030; J3010; Q9966; J2795; C1894; 99152

== ENCOUNTER → 2020-08-14 | Outpatient (CLI) | payer MEDICARE, OTHER ==
[2020-08-14 11:02] VITALS: BP 102/61; PULSE 89; RESP 18; TEMP 97.8
--- NOTE | 2020-08-15 19:44 | P.PN ---
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 She denies any fever or night sweats which denies any change in the bowel movement or urination,MRI of the cervical spine showed the cervical spinal stenosis spinal stenosis, and she had cervical fusion done recently and she continued to have neck pain, she is doing physical therapy currently Objective - Vital Signs Vital signs: Vital Signs Temp 97.8 F 08/14/20 10:50 Pulse 89 08/14/20 10:50 Resp 18 08/14/20 10:50 BP 102/61 08/14/20 10:50 Pulse Ox 98 08/14/20 10:50 Intake & Output 08/13/20 08/14/20 08/14/20 18:59 06:59 18:59 Weight 82.1 kg - Exam Physical Examinations : -Constitutiona : Cooperative , not in acute distress . -HEENT : nech : supple , no Lymphadenopathy , normal thyroid size . : eyes : no ptosis , no icterus, no photophobia . : ENT : normal of hearing , normal oropharynx , no Thrush . - Respiratory : Chest clear to auscultations Bilaterally , no wheezing , no Rhonchi . - Cardiovascula : regular rate and rhythem , S1 , S2 , no S3 , no S4. - Gastrointestina : abdomen soft no tenderness , bowel sounds , no organomegally . - Genitourinary : Defferred . - neurologic : Cranial nerve II to XII intact , no focal neurological deffecit . -psychatric : alert , oriented X 3 , appropriate affect , intact judgment and insight . -Lymphatic : no Lymphadenopathy . - musculoskeltal : Cervical Spine motor stregnth in the deltoid and biceps, normal right side , normal Left side motor stregnth biceps and the wrist extensors normal right side ,normal left side . motor stregnth in the triceps muscle . normal Right side , normal Left side deep tendon reflexes normal at the biceps , normal at Brachioradialis , normal at triceps. cervical facet loading test= Positive Bilaterally Spurling test= positive bilaterally. Neck distraction test= positive bilaterally. Les sign= positive bilaterally. Multiple trigger point in the cervical paraspinal muscles bilaterally Lumber spine moter stegnth lower extremities ,thigh and legs 5/5 Right side , 5/5 Left side Assessment and Plan Plan: Assessment and plan chronic low back pain secondary to failed back surgery syndrome and lumbar area , lumbar spondylosis with lumbar facet arthropathy . Myofascial pain syndrome cervical. Failed back surgery syndrome cervical Myofascial pain syndrome cervical area chronic and current use of high-risk medication (opioids) Patient denies any side effects of the current pain medication and the current treatment/medication helping the patient to do activity of daily living , Diagnoses, prognosis, treatment options, including but not limited to physical therapy, medication management, interventional therapies, and surgery, were discussed with the patient All the questions answered The narcotic consent was signed and patient agreed and understood the side effects and complications of opioid treatment. Patient signed the narcotic agreement, and was orally counseled, not to overuse, not to abuse, not to Divert , not tp sell pain medication, and to take it as prescribed only, Patient was counseled not to drive or operate heavy equipment while using narcotic medication, and advised not to use alcohol or any Illicit drugs while using the narcotis. understanding that lack of compliance with any of the above instructions, will likely to cause discharge from, the pain service, not to renew his narcotic prescriptions MAPS Reviwed and it was apropriate . Medication managements= patient will be given prescription refills for [place] 10/325 every 8 hours dispense 90 with 1 refill, increased Flexeril 10 mg to 3 times a day with one refill. Interventions= none. patient doing physical therapy currently Patient will be seen in the pain clinic in 2 months, , PQRS Measure Charge Sheet Measure #130: Documentation of Current Meds in Medical Chart: Patient's medications documented in chart Measure #226: Tobacco Use: Screen & Cessation Intervention: Pt screened for tobacco use AND intervention given Measure #111: Pneumonia Vaccination: Pneumococcal vaccine administered or previously received Measure #47: Advance Care Plan: Advance care planning discussed & documented, pt chose/unable to give Measure #412: Opioid Treatment Agreement: Documented signed opioid trtmnt agreemnt min once during opioid trtmnt Measure #408: Opioid Therapy Follow-up Evaluation: Patient had f/u eval minimum every 3 months during opioid therapy Measure #317: Preventitive Care & Scrn High Bld Press & F/U: Normal blood pressure, f/u not required Measure #128: Body Mass Index (BMI) Screening & Follow-up: BMI documented ABOVE normal parameters - f/u documented Measure #131: Pain Assessment & Follow-up: Pain positive & plan documented, Follow-up scheduled Measure #431: Unhealthy Alcohol Use Preventative Care & Scrn: Patient not identified as an unhealthy alcohol user PQRS Narrative: Time with Patient: Less than 30
== END | disposition home or self-care (01) ==
LOC: PNWHC3 10:41
PROVIDERS: ATTEND Specialist
DX: G89.29 Other chronic pain (principal); M47.816 Spondylosis without myelopathy or radiculopathy, lumbar region; M96.1 Postlaminectomy syndrome, not elsewhere classified; M79.18 Myalgia, other site; Z79.891 Long term (current) use of opiate analgesic; Z79.899 Other long term (current) drug therapy
CPT/HCPCS: 99211

== ENCOUNTER 2020-08-31 16:02 | Emergency (ER) | payer MEDICARE, OTHER ==
[2020-08-31 16:09] VITALS: RESP 18
--- NOTE | 2020-08-31 16:28 | ED ---
Back Pain HPI - General Chief Complaint: Back Pain/Injury Stated Complaint: Lower back pain Time Seen by Provider: 08/31/20 16:11 Source: patient Limitations: no limitations - History of Present Illness Initial Comments: 55-year-old female with history of chronic back pain, lumbar fusion presenting to emergency Department with chief complaint of back pain. Patient reports 2 da ys ago she was shaving her legs, when she bent over in the bathtub and had a charley horse in her left calf which causes her to have a sudden jerking movement. States that soon after, she developed pain to begin to shoot from the lumbosacral region and radiates distally along the posterior aspect of the left lower extremity to her foot. Patient reports the pain is exacerbated with ambulation flexion and extension of the back. Reports pain is alleviated at rest. Patient does take Andrews 103 25 mg for pain. She denies any saddle anesthesia, urinary retention with overflow incontinence or bowel incontinence. She denies any abdominal pain chest pain shortness of breath. Denies hematuria, medication or melena. - Related Data Home Medications Medication Instructions Recorded Confirmed Ezetimibe [Zetia] 10 mg PO HS 09/05/14 08/14/20 Fluticasone Propionate 1 spray EA NOSTRIL BID 11/25/15 08/14/20 Citalopram Hydrobromide [CeleXA] 40 mg PO DAILY 12/10/15 08/14/20 OXcarbazepine [Trileptal] 600 mg PO BID 12/10/15 08/14/20 Levothyroxine Sodium [Synthroid] 25 mcg PO DAILY 03/13/16 08/14/20 Simethicone [Gas-X] 125 mg PO Q8H PRN 10/19/16 08/14/20 Omeprazole 40 mg PO BID 11/13/16 08/14/20 clonazePAM [KlonoPIN] 0.5 mg PO BID PRN 05/03/17 08/14/20 Methylphenidate HCl 20 mg PO TID 09/09/18 08/14/20 busPIRone HCL 15 mg PO BID 02/05/19 08/14/20 Fluticasone/Vilanterol [Breo 1 puff INHALATION RT-DAILY 07/24/19 08/14/20 Ellipta 100-25 Mcg Inhaler] Montelukast Sodium [Singulair] 10 mg PO HS 07/24/19 08/14/20 Atorvastatin Calcium [Lipitor] 10 mg PO HS 10/06/19 08/14/20 estradioL [Estrace] 0.5 mg PO DAILY 10/06/19 08/14/20 Albuterol Inhaler [Ventolin Hfa 2 puff INHALATION RT-QID PRN 03/12/20 08/14/20 Inhaler] Cholecalciferol [Vitamin D3 (25 1,000 unit PO DAILY 06/14/20 08/14/20 Mcg = 1000 Iu)] Cyanocobalamin (Vitamin B-12) 1,000 mcg PO DAILY 06/14/20 08/14/20 [Vitamin B-12] Acetaminophen [Tylenol] 1,000 mg PO Q4-6H PRN 07/17/20 08/14/20 Cetirizine HCl 10 mg PO HS 07/17/20 08/14/20 Varenicline [Chantix Continuing 1 mg PO BID 07/17/20 08/14/20 Pack] Previous Rx's Medication Instructions Recorded predniSONE [Deltasone] 20 mg PO BID 5 Days #10 tab 07/14/20 Cyclobenzaprine [Flexeril] 10 mg PO TID PRN #90 tab 08/14/20 HYDROcodone/APAP 10-325MG [Andrews 1 tab PO Q8H PRN #90 tab 08/14/20 10-325] HYDROcodone/APAP 10-325MG [Andrews 1 tab PO Q8HR PRN 30 Days #90 tab 08/14/20 10-325] Cyclobenzaprine [Flexeril] 10 mg PO TID PRN #15 tab 08/31/20 Allergies Allergy/AdvReac Type Severity Reaction Status Date / Time Penicillins Allergy Rash/Hives Verified 08/31/20 16:09 Review of Systems ROS Statement: Those systems with pertinent positive or pertinent negative responses have been documented in the HPI. ROS Other: All systems not noted in ROS Statement are negative. Past Medical History Past Medical History: Asthma, COPD, GERD/Reflux, Hyperlipidemia, Osteoarthritis (OA), Syncope, Thyroid Disorder Additional Past Medical History / Comment(s): kidney stones, hypoglycemia, chronic neck and L shoulder, lower back pain. Hx L facial and L ankle fxs, sinus problems, vertigo, falls in past due to syncope, low BP at times. Fusion of sacrum and iliac crest-per . 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 Rectocele repair. colonoscopy, d&c Past Anesthesia/Blood Transfusion Reactions: Previous Problems w/ Anesthesia Additional Past Anesthesia/Blood Transfusion Reaction / Comment(s): "Takes longer to wake up from anesthesia." Past Psychological History: ADD/ADHD, Anxiety, Depression Smoking Status: Light tobacco smoker Past Alcohol Use History: None Reported Past Drug Use History: None Reported - Past Family History Mother Family Medical History: Cancer Additional Family Medical History / Comment(s): lung Father Family Medical History: Asthma, COPD, Osteoarthritis (OA) Additional Family Medical History / Comment(s): Father at age 80 yrs. General Exam Limitations: no limitations General appearance: alert, in no apparent distress, obese Head exam: Present: atraumatic, normocephalic, normal inspection Eye exam: Present: normal appearance, PERRL, EOMI Pupils: Present: normal accommodation ENT exam: Present: normal exam, normal oropharynx, mucous membranes moist, TM's normal bilaterally, normal external ear exam Neck exam: Present: normal inspection, full ROM. Absent: tenderness Respiratory exam: Present: normal lung sounds bilaterally. Absent: respiratory distress, wheezes, rales Cardiovascular Exam: Present: regular rate, normal rhythm, normal heart sounds GI/Abdominal exam: Present: soft. Absent: distended, tenderness, guarding Extremities exam: Present: normal inspection, full ROM, normal capillary refill. Absent: tenderness, pedal edema, joint swelling Back exam: Present: normal inspection (Scarring due to old surgery), full ROM, tenderness, paraspinal tenderness (Lumbosacral), vertebral tenderness. Absent: CVA tenderness (R), CVA tenderness (L) Neurological exam: Present: alert, oriented X3 Psychiatric exam: Present: normal affect, normal mood Skin exam: Present: warm, dry, intact, normal color Course Vital Signs 08/31/20 08/31/20 16:07 17:37 Temperature 97.9 F 98.3 F Pulse Rate 89 78 Respiratory 18 18 Rate Blood Pressure 115/59 121/61 O2 Sat by Pulse 98 97 Oximetry Medical Decision Making - Medical Decision Making 55-year-old female with acute on chronic back pain. No concern for cauda equina. Left vertebral and paraspinal tenderness in the lumbosacral region. Patient was requesting CT imaging due to having previous lumbar fusion. CT unremarkable. Hardware appears to be in place. Patient was given Lidoderm patch and Dilaudid. Reevaluation patient reports improvement in symptoms. Patient will follow-up with exercise specialist. Return parameters discussed with patient was understanding and agreeable. Disposition Clinical Impression: Mechanical back pain Disposition: HOME SELF-CARE Condition: Stable Instructions (If sedation given, give patient instructions): Acute Low Back Pain (ED) Additional Instructions: Follow-up with your exercise specialist. Return to emergency department if symptoms worsen. Prescriptions: Cyclobenzaprine [Flexeril] 10 mg PO TID PRN #15 tab PRN Reason: Muscle Spasm Is patient prescribed a controlled substance at d/c from ED?: No Referrals: Ihsan Ding DO [Primary Care Provider] - 1-2 days Time of Disposition: 17:16
[2020-08-31] MEDS ORDERED: LIDOCAINE 5% PATCH TOPICAL STA (16:36)
[2020-08-31] MEDS ORDERED: HYDROmorphone 1 MG/ML 1 ML SYRINGE IM STA (16:37)
--- NOTE | 2020-08-31 17:10 | CT ---
EXAMINATION TYPE: CT lumbar spine wo con DATE OF EXAM: 08/31/2020 COMPARISON: CT abdomen pelvis 04/23/2020 HISTORY: Lower back pain CT DLP: 1089.6 mGycm Automated exposure control for dose reduction was used. Images were obtained from the level of T12-S3 vertebra without contrast. The lumbar vertebra have normal alignment. There is posterior fusion surgery at L5-S1 with rods and s crews. There is narrowing of L5-S1 disc space. There is no compression fracture. Abdominal aorta show s mild atheromatous change. There is no lumbar paraspinal mass. The sacroiliac joints appear intact. There is some facet arthropathy and ligamentum flavum thickening with mild relative spinal stenosis a t L4-5. There is sacral cyst noted at S3 level. IMPRESSION: Previous surgery. No acute abnormality of the lumbar spine. No change compared to old exam.
[2020-08-31] MEDS ORDERED: HYDROmorphone 0.5 MG/0.5 ML SYRINGE IVP STA (17:28)
[2020-08-31] MEDS ORDERED: HYDROmorphone 0.5 MG/0.5 ML SYRINGE IM STA (17:33)
[2020-08-31 17:39] VITALS: BP 121/61; PULSE 78; TEMP 98.3
== END 2020-08-31 17:39 | disposition home or self-care (01) ==
LOC: EC 16:02
DX: M54.5 Low back pain (principal); F41.9 Anxiety disorder, unspecified; F32.9 Major depressive disorder, single episode, unspecified; F90.9 Attention-deficit hyperactivity disorder, unspecified type; F17.200 Nicotine dependence, unspecified, uncomplicated; J44.9 Chronic obstructive pulmonary disease, unspecified; K21.9 Gastro-esophageal reflux disease without esophagitis; E78.5 Hyperlipidemia, unspecified; M19.90 Unspecified osteoarthritis, unspecified site; E07.9 Disorder of thyroid, unspecified; Z79.890 Hormone replacement therapy; Z79.51 Long term (current) use of inhaled steroids; Z79.899 Other long term (current) drug therapy; Z88.0 Allergy status to penicillin; Z95.5 Presence of coronary angioplasty implant and graft; Z90.710 Acquired absence of both cervix and uterus; X50.1XXA Overexertion from prolonged static or awkward postures, initial encounter
CPT/HCPCS: 72131; 99284; 96372 ×2; J1170 ×2

== ENCOUNTER → 2020-10-09 | Outpatient (CLI) | payer MEDICARE, OTHER ==
[2020-10-09 11:14] VITALS: BP 117/82; PULSE 103; RESP 18; TEMP 97.7
--- NOTE | 2020-10-09 11:25 | P.PN ---
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 She denies any fever or night sweats which denies any change in the bowel movement or urination,MRI of the cervical spine showed the cervical spinal stenosis spinal stenosis, and she had cervical fusion done recently and she continued to have neck pain, she is already in the process of evaluation regarding spinal cord stimulator for the cervical area to treat her neck pain, the neck pain interfere with her quality of life , and interfere with activity of daily livings Physical Examinations : -Constitutiona : Cooperative , not in acute distress . -HEENT : nech : supple , no Lymphadenopathy , normal thyroid size . : eyes : no ptosis , no icterus, no photophobia . : ENT : normal of hearing , normal august pharynx , no Thrush . - Respiratory : Chest clear to auscultations Bilaterally , no wheezing , no Rhonchi . - Cardiovascula : regular rate and rhythem , S1 , S2 , no S3 , no S4. - Gastrointestina : abdomen soft no tenderness , bowel sounds , no organomegally . - Genitourinary : Defferred . - neurologic : Cranial nerve II to XII intact , no focal neurological deffecit . -psychatric : alert , oriented X 3 , appropriate affect , intact judgment and insight . -Lymphatic : no Lymphadenopathy . - musculoskeltal : Cervical Spine motor stregnth in the deltoid and biceps, normal right side , normal Left side motor stregnth biceps and the wrist extensors normal right side ,normal left side . motor stregnth in the triceps muscle . normal Right side , normal Left side deep tendon reflexes normal at the biceps , normal at Brachioradialis , normal at triceps. cervical facet loading test= Positive Bilaterally Spurling test= positive bilaterally. Neck distraction test= positive bilaterally. Les sign= positive bilaterally. Multiple trigger point in the cervical paraspinal muscles bilaterally Lumber spine moter stegnth lower extremities ,thigh and legs 5/5 Right side , 5/5 Left side Assessment and plan chronic low back pain secondary to failed back surgery syndrome and lumbar area , lumbar spondylosis with lumbar facet arthropathy . Myofascial pain syndrome cervical. Failed back surgery syndrome cervical Myofascial pain syndrome cervical area chronic and current use of high-risk medication (opioids) Patient denies any side effects of the current pain medication and the current treatment/medication helping the patient to do activity of daily living , Diagnoses, prognosis, treatment options, including but not limited to physical therapy, medication management, interventional therapies, and surgery, were discussed with the patient All the questions answered The narcotic consent was signed and patient agreed and understood the side effects and complications of opioid treatment. Patient signed the narcotic agreement, and was orally counseled, not to overuse, not to abuse, not to Divert , not tp sell pain medication, and to take it as prescribed only, Patient was counseled not to drive or operate heavy equipment while using narcotic medication, and advised not to use alcohol or any Illicit drugs while using the narcotis. understanding that lack of compliance with any of the above instructions, will likely to cause discharge from, the pain service, not to renew his narcotic prescriptions MAPS Reviwed and it was apropriate . Medication managements= patient will be given prescription refills for Arnold 10/325 every 8 hours dispense 90 with 1 refill, increased Flexeril 10 mg to 3 times a day with one refill. Interventions= none. Patient will be seen in the pain clinic in 2 months, , PQRS Measure Charge Sheet Measure #130: Documentation of Current Meds in Medical Chart: Patient's medications documented in chart Measure #226: Tobacco Use: Screen & Cessation Intervention: Pt screened for tobacco use AND intervention given Measure #111: Pneumonia Vaccination: Pneumococcal vaccine administered or previously received Measure #47: Advance Care Plan: Advance care planning discussed & documented, pt chose/unable to give Measure #412: Opioid Treatment Agreement: Documented signed opioid trtmnt agreemnt min once during opioid trtmnt Measure #408: Opioid Therapy Follow-up Evaluation: Patient had f/u eval minimum every 3 months during opioid therapy Measure #317: Preventitive Care & Scrn High Bld Press & F/U: Normal blood pressure, f/u not required Measure #128: Body Mass Index (BMI) Screening & Follow-up: BMI documented ABOVE normal parameters - f/u documented Measure #131: Pain Assessment & Follow-up: Pain positive & plan documented, Follow-up scheduled Measure #431: Unhealthy Alcohol Use Preventative Care & Scrn: Patient not identified as an unhealthy alcohol user PQRS Narrative: Time with Patient: Less than 30 Objective - Vital Signs Vital signs: Vital Signs Temp 97.7 F 10/09/20 11:06 Pulse 103 H 10/09/20 11:06 Resp 18 10/09/20 11:06 BP 117/82 10/09/20 11:06 Pulse Ox 98 10/09/20 11:06 Intake & Output 10/08/20 10/09/20 10/09/20 18:59 06:59 18:59 Weight 81.647 kg
== END | disposition home or self-care (01) ==
LOC: PNWHC3 10:51
PROVIDERS: ATTEND Specialist
DX: M96.1 Postlaminectomy syndrome, not elsewhere classified (principal); M47.816 Spondylosis without myelopathy or radiculopathy, lumbar region; M79.18 Myalgia, other site; G89.29 Other chronic pain
CPT/HCPCS: 80307; G0482; G0463; 99212

== ENCOUNTER → 2020-10-29 | Outpatient (CLI) | payer MEDICARE, OTHER ==
--- NOTE | 2020-10-29 13:22 | MR ---
MRI CERVICAL SPINE: CLINICAL HISTORY: Cervical disc disorder with Myelopathy. Cervicalgia. Cervical region radiculopathy. Neck pain with pain extending into both shoulders. History of prior Chiari decompression. TECHNIQUE: Multiplanar, multisequence imaging of the cervical spine is performed without IV contrast. COMPARISON: MRI cervical spine March 23, 2020. CT cervical spine March 12, 2020. FINDINGS: Sagittal images of the cervical spine redemonstrate posterior craniotomy change, the cranio cervical junction remains within normal limits after surgery. There is persistent levoconvex scolios is centered in the upper thoracic spine. The cervical and upper thoracic spinal cord remains normal i n caliber and signal. Vertebral alignment is stable and satisfactory. Artifact from anterior fusion plate and disc material C4-C6 levels is redemonstrated. The vertebral body and intravertebral disk h eights are normal maintained above and below surgical levels . Axial images at C2-C3 level redemonstrates left foraminal spur disc complex causing asymmetric mild-t o-moderate left-sided neural foraminal narrowing. No significant change from prior MRI. Axial images at C3-C4 level show left greater than right paracentral spur disc complexes effacing the anterior thecal sac causing moderate left-sided neural foraminal narrowing. No significant progressi on from prior MRI. Axial images at C4-C5 and C5-C6 level show artifact from surgical change, there is blooming artifact present. There is suspected mild to moderate bilateral neural foraminal at the C4-C5 level and mild b ilateral neural foraminal narrowing at the C5-C6 level. No significant change from prior. Axial images at C6-C7 level shows some artifact from surgical change, there is asymmetric mild to mod erate right-sided neural foraminal narrowing due to small right foraminal disc herniation. No signifi cant change from prior. Axial images at C7-T1 level remain within normal limits. IMPRESSION: Postsurgical changes from successful Chiari decompression redemonstrated. Postsurgical ch serge C4-C6 level redemonstrated with stable and satisfactory alignment. Mild multilevel degenerative changes without interval degenerative progression from prior MRI noted.
== END | disposition home or self-care (01) ==
LOC: RADMRIMAIN 12:08
PROVIDERS: ATTEND Neurological Surgery
DX: M47.12 Other spondylosis with myelopathy, cervical region (principal); G93.5 Compression of brain
CPT/HCPCS: 72141

== ENCOUNTER → 2020-12-04 | Outpatient (CLI) | payer MEDICARE, OTHER ==
[2020-12-04 10:11] VITALS: BP 111/64; PULSE 92; RESP 16; TEMP 98.1
--- NOTE | 2020-12-04 10:35 | P.PN ---
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 She denies any fever or night sweats which denies any change in the bowel movement or urination,MRI of the cervical spine showed the cervical spinal stenosis spinal stenosis, and she had cervical fusion done recently and she continued to have neck pain, she is already had spinal cord stimulator for the cervical area to treat her neck pain, and she reported that she had a good result , and she is scheduled to have spinal cord stimulator trial for the low b ack area , pain interfere with her quality of life , and interfere with activity of daily livings Physical Examinations : -Constitutiona : Cooperative , not in acute distress . -HEENT : nech : supple , no Lymphadenopathy , normal thyroid size . : eyes : no ptosis , no icterus, no photopho sid . : ENT : normal of hearing , normal oropharynx , no Thrush . - Respiratory : Chest clear to auscultations Bilaterally , no wheezing , no Rhonchi . - Cardiovascula : regular rate and rhythem , S1 , S2 , no S3 , no S4. - Gastrointestina : abdomen soft no tenderness , bowel sounds , no organomegally . - Genitourinary : Defferred . - neurologic : Cranial nerve II to XII intact , no focal neurological deffecit . -psychatric : alert , oriented X 3 , appropriate affect , intact judgment and insight . -Lymphatic : no Lymphadenopathy . - musculoskeltal : Cervical Spine motor stregnth in the deltoid and biceps, normal right side , normal Left side motor stregnth biceps and the wrist extensors normal right side ,normal left side . motor stregnth in the triceps muscle . normal Right side , normal Left side deep tendon reflexes normal at the biceps , normal at Brachioradialis , normal at triceps. cervical facet loading test= Positive Bilaterally Spurling test= positive bilaterally. Neck distraction test= positive bilaterally. Les sign= positive bilaterally. Multiple trigger point in the cervical paraspinal muscles bilaterally Lumber spine moter stegnth lower extremities ,thigh and legs 5/5 Right side , 5/5 Left side Assessment and plan chronic low back pain secondary to failed back surgery syndrome and lumbar area , lumbar spondylosis with lumbar facet arthropathy . Myofascial pain syndrome cervical. 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 Myofascial pain syndrome cervical area chronic and current use of high-risk medication (opioids) Patient denies any side effects of the current pain medication and the current treatment/medication helping the patient to do activity of daily living , Diagnoses, prognosis, treatment options, including but not limited to physical therapy, medication management, interventional therapies, and surgery, were discussed with the patient All the questions answered The narcotic consent was signed and patient agreed and understood the side effects and complications of opioid treatment. Patient signed the narcotic agreement, and was orally counseled, not to overuse, not to abuse, not to Divert , not tp sell pain medication, and to take it as prescribed only, Patient was counseled not to drive or operate heavy equipment while using narcotic medication, and advised not to use alcohol or any Illicit drugs while using the narcotis. understanding that lack of compliance with any of the above instructions, will likely to cause discharge from, the pain service, not to renew his narcotic prescriptions [employer] Reviwed and it was apropriate . Medication managements= patient will be given prescription refills for Beecher 10/325 every 8 hours dispense 90 with 1 refill, increased Flexeril 10 mg to 3 times a day with one refill. Interventions= none. Patient will be seen in the pain clinic in 2 months, , PQRS Measure Charge Sheet Measure #130: Documentation of Current Meds in Medical Chart: Patient's medications documented in chart Measure #226: Tobacco Use: Screen & Cessation Intervention: Pt screened for tobacco use AND intervention given Measure #111: Pneumonia Vaccination: Pneumococcal vaccine administered or previously received Measure #47: Advance Care Plan: Advance care planning discussed & documented, pt chose/unable to give Measure #412: Opioid Treatment Agreement: Documented signed opioid trtmnt agreemnt min once during opioid trtmnt Measure #408: Opioid Therapy Follow-up Evaluation: Patient had f/u eval minimum every 3 months during opioid therapy Measure #317: Preventitive Care & Scrn High Bld Press & F/U: Normal blood pressure, f/u not required Measure #128: Body Mass Index (BMI) Screening & Follow-up: BMI documented ABOVE normal parameters - f/u documented Measure #131: Pain Assessment & Follow-up: Pain positive & plan documented, Follow-up scheduled Measure #431: Unhealthy Alcohol Use Preventative Care & Scrn: Patient not identified as an unhealthy alcohol user PQRS Narrative: Time with Patient: Less than 30 Objective - Vital Signs Vital signs: Vital Signs Temp 98.1 F 12/04/20 10:08 Pulse 92 12/04/20 10:08 Resp 16 12/04/20 10:08 BP 111/64 12/04/20 10:08 Pulse Ox 97 12/04/20 10:08
== END ==
LOC: PNWHC3 09:42
PROVIDERS: ATTEND Specialist
DX: M96.1 Postlaminectomy syndrome, not elsewhere classified (principal); M47.816 Spondylosis without myelopathy or radiculopathy, lumbar region; M79.18 Myalgia, other site; Z79.891 Long term (current) use of opiate analgesic
CPT/HCPCS: 99211

== ENCOUNTER → 2021-01-02 | Outpatient (CLI) | payer MEDICARE, OTHER ==
--- NOTE | 2021-01-02 12:19 | XR ---
EXAMINATION TYPE: XR chest 2V DATE OF EXAM: 01/02/2021 COMPARISON: 05/06/2020 HISTORY: Shortness of breath TECHNIQUE: Frontal and lateral views of the chest are obtained. FINDINGS: Scattered senescent parenchymal changes noted. Hyperinflation compatible with COPD. No evidence for infiltrate. No evidence for atelectasis. Heart size is stable. Mediastinal structures are stable and grossly unremarkable. No evidence for hilar prominence. Degenerative changes dorsal spine. IMPRESSION: 1. No evidence for acute pulmonary disease.
== END | disposition home or self-care (01) ==
LOC: RADXRMAIN 11:41
PROVIDERS: ATTEND Neurological Surgery
DX: R06.02 Shortness of breath (principal)
CPT/HCPCS: 71046

== ENCOUNTER → 2021-01-29 | Outpatient (CLI) | payer MEDICARE, OTHER ==
[2021-01-29 10:26] VITALS: BP 117/66; PULSE 114; RESP 16; TEMP 98
--- NOTE | 2021-01-29 10:51 | P.PN ---
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 She denies any fever or night sweats which denies any change in the bowel movement or urination,MRI of the cervical spine showed the cervical spinal stenosis spinal stenosis, and she had cervical fusion done recently and she continued to have neck pain, she is already had spinal cord stimulator for the cervical area to treat her neck pain, and she reported that she had a good result , and she is scheduled to have spinal cord stimulator trial for the low b ack area , pain interfere with her quality of life , and interfere with activity of daily livings Objective - Vital Signs Vital signs: Vital Signs Temp 98.0 F 01/29/21 10:24 Pulse 114 H 01/29/21 10:24 Resp 16 01/29/21 10:24 BP 117/66 01/29/21 10:24 Pulse Ox 97 01/29/21 10:24 Intake & Output 01/28/21 01/29/21 01/29/21 18:59 06:59 18:59 Weight 82.554 kg - Exam -Constitutiona : Cooperative , not in acute distress . -HEENT : nech : supple , no Lymphadenopathy , normal thyroid size . : eyes : no ptosis , no icterus, no photophobia . - neurologic : Cranial nerve II to XII intact , no focal neurological deffecit . -psychatric : alert , oriented X 3 , appropriate affect , intact judgment and insight . -Lymphatic : no Lymphadenopathy . - musculoskeltal : Cervical Spine motor stregnth in the deltoid and biceps, normal right side , normal Left side motor stregnth biceps and the wrist extensors normal right side ,normal left side . motor stregnth in the triceps muscle . normal Right side , normal Left side Lumber spine moter stegnth lower extremities ,thigh and legs 5/5 Right side , 5/5 Left side Assessment and Plan Plan: Assessment and plan chronic low back pain secondary to failed back surgery syndrome and lumbar area , lumbar spondylosis with lumbar facet arthropathy . Myofascial pain syndrome cervical. 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 Myofascial pain syndrome cervical area chronic and current use of high-risk medication (opioids) Patient denies any side effects of the current pain medication and the current treatment/medication helping the patient to do activity of daily living , Diagnoses, prognosis, treatment options, including but not limited to physical therapy, medication management, interventional therapies, and surgery, were discussed with the patient All the questions answered The narcotic consent was signed and patient agreed and understood the side effects and complications of opioid treatment. Patient signed the narcotic agreement, and was orally counseled, not to overuse, not to abuse, not to Divert , not tp sell pain medication, and to take it as prescribed only, Patient was counseled not to drive or operate heavy equipment while using narcotic medication, and advised not to use alcohol or any Illicit drugs while using the narcotis. understanding that lack of compliance with any of the above instructions, will likely to cause discharge from, the pain service, not to renew his narcotic prescriptions [employer] Reviwed and it was apropriate . Medication managements= patient will be given prescription refills for Braselton 10/325 every 8 hours dispense 90 with 1 refill, continue Flexeril 10 mg to 3 times a day PRN. Interventions= none. Patient will be seen in the pain clinic in 2 months, , PQRS Measure Charge Sheet Measure #130: Documentation of Current Meds in Medical Chart: Patient's medications documented in chart Measure #226: Tobacco Use: Screen & Cessation Intervention: Pt screened for tobacco use AND intervention given Measure #111: Pneumonia Vaccination: Pneumococcal vaccine administered or previously received Measure #47: Advance Care Plan: Advance care planning discussed & documented, pt chose/unable to give Measure #412: Opioid Treatment Agreement: Documented signed opioid trtmnt agreemnt min once during opioid trtmnt Measure #408: Opioid Therapy Follow-up Evaluation: Patient had f/u eval minimum every 3 months during opioid therapy Measure #317: Preventitive Care & Scrn High Bld Press & F/U: Normal blood pressure, f/u not required Measure #128: Body Mass Index (BMI) Screening & Follow-up: BMI documented ABOVE normal parameters - f/u documented Measure #131: Pain Assessment & Follow-up: Pain positive & plan documented, Follow-up scheduled Measure #431: Unhealthy Alcohol Use Preventative Care & Scrn: Patient not identified as an unhealthy alcohol user PQRS Narrative: Time with Patient: Less than 30
== END ==
LOC: PNWHC3 10:11
PROVIDERS: ATTEND Specialist
DX: M96.1 Postlaminectomy syndrome, not elsewhere classified (principal); M47.816 Spondylosis without myelopathy or radiculopathy, lumbar region; M79.18 Myalgia, other site; Z79.891 Long term (current) use of opiate analgesic; G89.29 Other chronic pain; Z88.0 Allergy status to penicillin; Z87.891 Personal history of nicotine dependence
CPT/HCPCS: 99211

== ENCOUNTER 2021-02-21 16:36 | Emergency (ER) | payer MEDICARE, OTHER ==
[2021-02-21] MEDS ORDERED: LIDOCAINE 5% PATCH TOPICAL STA (17:14)
[2021-02-21] MEDS ORDERED: HYDROmorphone 1 MG/ML 1 ML SYRINGE IM STA ×2 (17:14→19:21)
--- NOTE | 2021-02-21 17:49 | ED ---
Back Pain [facility] - General Chief Complaint: Back Pain/Injury Stated Complaint: sciatic nerve pain Time Seen by Provider: 02/21/21 16:55 Source: patient Limitations: no limitations - History of Present Illness Initial Comments: 55-year-old female with history of chronic back pain presents to emergency Department with chief complaint of sciatic. Patient reports over the last week she's been parents and gradual increase in her sciatica-like pain that starts in the right paraspinal lumbar region with radiation along the right lower extremity. Patient reports pain is exacerbated with left and right rotation, flexion of the right hip. She denies any saddle anesthesia, urinary retention with overflow or bowel incontinence. Denies fever or chills. Denies any abdominal pain chest pain shortness of breath. Denies direct injuries to her back. States she ready sees an support services specialist. - Related Data Home Medications Medication Instructions Recorded Confirmed Ezetimibe [Zetia] 10 mg PO HS 09/05/14 12/02/20 Fluticasone Propionate 1 spray EA NOSTRIL BID 11/25/15 12/02/20 Citalopram Hydrobromide [CeleXA] 40 mg PO DAILY 12/10/15 12/02/20 Levothyroxine Sodium [Synthroid] 25 mcg PO DAILY 03/13/16 12/02/20 Simethicone [Gas-X] 125 mg PO Q8H PRN 10/19/16 12/02/20 Omeprazole 40 mg PO BID 11/13/16 12/02/20 clonazePAM [KlonoPIN] 0.5 mg PO BID PRN 05/03/17 12/02/20 Methylphenidate HCl 20 mg PO TID 09/09/18 12/02/20 busPIRone HCL 15 mg PO BID 02/05/19 12/02/20 Fluticasone/Vilanterol [Breo 1 puff INHALATION RT-DAILY 07/24/19 12/02/20 Ellipta 100-25 Mcg Inhaler] Montelukast Sodium [Singulair] 10 mg PO HS 07/24/19 12/02/20 Atorvastatin Calcium [Lipitor] 10 mg PO HS 10/06/19 12/02/20 estradioL [Estrace] 0.5 mg PO DAILY 10/06/19 12/02/20 Albuterol Inhaler [Ventolin Hfa 2 puff INHALATION RT-QID PRN 03/12/20 12/02/20 Inhaler] Acetaminophen [Tylenol] 1,000 mg PO Q4-6H PRN 07/17/20 12/02/20 Cetirizine HCl 10 mg PO HS 07/17/20 12/02/20 Varenicline [Chantix Continuing 1 mg PO BID 07/17/20 12/02/20 Pack] Previous Rx's Medication Instructions Recorded Cyclobenzaprine [Flexeril] 10 mg PO TID PRN #15 tab 12/04/20 HYDROcodone/APAP 10-325MG [[place]way 1 tab PO Q8H PRN #90 tab 02/03/21 10-325] HYDROcodone/APAP 10-325MG [Broadway 1 tab PO Q8HR PRN 30 Days #90 tab 02/03/21 10-325] Allergies Allergy/AdvReac Type Severity Reaction Status Date / Time Penicillins Allergy Rash/Hives Verified 02/21/21 16:46 Review of Systems ROS Statement: Those systems with pertinent positive or pertinent negative responses have been documented in the HPI. ROS Other: All systems not noted in ROS Statement are negative. Past Medical History Past Medical History: Asthma, COPD, GERD/Reflux, Hyperlipidemia, Osteoarthritis (OA), Syncope, Thyroid Disorder Additional Past Medical History / Comment(s): kidney stones, hypoglycemia, chronic neck and L shoulder, lower back pain. Hx L facial and L ankle fxs, sinus problems, vertigo, falls in past due to syncope, low BP at times. Fusion of sacrum and iliac crest-per . 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 Rectocele repair. colonoscopy, d&c Past Anesthesia/Blood Transfusion Reactions: Previous Problems w/ Anesthesia Additional Past Anesthesia/Blood Transfusion Reaction / Comment(s): "Takes longer to wake up from anesthesia." Past Psychological History: ADD/ADHD, Anxiety, Depression Smoking Status: Former smoker Past Alcohol Use History: None Reported Past Drug Use History: None Reported - Past Family History Mother Family Medical History: Cancer Additional Family Medical History / Comment(s): lung Father Family Medical History: Asthma, COPD, Osteoarthritis (OA) Additional Family Medical History / Comment(s): Father at age 80 yrs. General Exam Limitations: no limitations General appearance: alert, in no apparent distress Head exam: Present: atraumatic, normocephalic, normal inspection Eye exam: Present: normal appearance, PERRL, EOMI Pupils: Present: normal accommodation ENT exam: Present: normal exam, normal oropharynx, mucous membranes moist Neck exam: Present: normal inspection, full ROM. Absent: tenderness, lymphadenopathy Respiratory exam: Present: normal lung sounds bilaterally. Absent: respiratory distress, wheezes, rales, rhonchi, stridor Cardiovascular Exam: Present: regular rate, normal rhythm, normal heart sounds. Absent: systolic murmur, diastolic murmur GI/Abdominal exam: Present: soft. Absent: distended, tenderness, guarding Extremities exam: Present: normal inspection, full ROM, normal capillary refill. Absent: pedal edema Back exam: Present: normal inspection, full ROM, tenderness, paraspinal tenderness (Right paraspinal tenderness in the lower sacral spine), other (Positive leg raise test right leg.) Neurological exam: Present: alert, oriented X3, normal gait Psychiatric exam: Present: normal affect, normal mood Skin exam: Present: warm, dry, intact, normal color Course Vital Signs 02/21/21 16:44 Temperature 98.2 F Pulse Rate 86 Respiratory 16 Rate Blood Pressure 116/70 O2 Sat by Pulse 98 Oximetry Medical Decision Making - Medical Decision Making 55-year-old female with history of chronic back pain presents to emergency Department with chief complaint of sciatica. On physical examination, positive right leg test. Lumbar radiculopathy. CT of the lumbar spine shows no acute findings. Patient was symptomatically relieved. She feels better and wants to go home. Return parameters were discussed patient was standing agreeable. Advised to follow up with her orthopedic surgeon. Case discussed with Dr. Flores. Disposition Clinical Impression: Lumbar radiculopathy Disposition: HOME SELF-CARE Condition: Stable Instructions (If sedation given, give patient instructions): Acute Low Back Pain (ED) Additional Instructions: Please return to the Emergency Department if symptoms worsen or any other concerns. Is patient prescribed a controlled substance at d/c from ED?: No Referrals: Ihsan Ding DO [Primary Care Provider] - 1-2 days Time of Disposition: 19:09
--- NOTE | 2021-02-21 19:03 | CT ---
EXAMINATION TYPE: CT lumbar spine wo con DATE OF EXAM: 02/21/2021 COMPARISON: 08/31/2020 HISTORY: chronic low back pain, no new injury TECHNIQUE: CT scan of the lumbar spine without contrast. Axial, coronal and sagittal reformats were interpreted. CT DLP: 1200.6 mGycm Automated exposure control for dose reduction was used. FINDINGS: 5 nonrib-bearing lumbar-type vertebral bodies. There is straightening of the lumbar curvature. Vertebral body heights are normal. Posterior elements are acutely intact. Surgical changes again seen at L5-S1 and right sacroiliac. Moderate to severe degenerative changes are seen in the included spine. Bilateral right greater than left sacroiliac joint arthritis noted. Scattered diverticula are seen in the descending and sigmoid colon. Atherosclerotic calcifications are seen in the included aorta. IMPRESSION: Degenerative changes of the lumbar spine with no acute osseous abnormality. No significant change sin ce 08/31/2020.
[2021-02-21 19:41] VITALS: BP 106/71; PULSE 71; RESP 18; TEMP 97.9
== END 2021-02-21 19:30 | disposition home or self-care (01) ==
LOC: EC 16:36
DX: M54.16 Radiculopathy, lumbar region (principal); M25.551 Pain in right hip; J44.9 Chronic obstructive pulmonary disease, unspecified; E78.5 Hyperlipidemia, unspecified; K21.9 Gastro-esophageal reflux disease without esophagitis; F32.9 Major depressive disorder, single episode, unspecified; F41.9 Anxiety disorder, unspecified; M19.90 Unspecified osteoarthritis, unspecified site; Z87.442 Personal history of urinary calculi; Z87.891 Personal history of nicotine dependence; Z88.0 Allergy status to penicillin; Z79.51 Long term (current) use of inhaled steroids
CPT/HCPCS: 72131; 99283; 96372 ×2; J1170

== ENCOUNTER → 2021-03-26 | Outpatient (CLI) | payer MEDICARE, OTHER ==
[2021-03-26 10:27] VITALS: BP 125/59; PULSE 84; RESP 18; TEMP 98.2
--- NOTE | 2021-03-26 10:35 | P.PAINPG ---
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 She denies any fever or night sweats which denies any change in the bowel movement or urination,MRI of the cervical spine showed the cervical spinal stenosis spinal stenosis, and she had cervical fusion done recently and she continued to have neck pain, she is already had spinal cord stimulator for the cervical area to treat her neck pain, and she reported that she had a good result , and she is scheduled to have spinal cord stimulator trial for the low b ack area, but has been issues getting an MRI due to lack of compatibility with her cervical spine stimulator. She is doing well and there is no significant changes in her health Objective Vital signs: - Exam -Constitutiona : Cooperative , not in acute distress . -HEENT : nech : supple , no Lymphadenopathy , normal thyroid size . : eyes : no ptosis , no icterus, no photophobia . - neurologic : Cranial nerve II to XII intact , no focal neurological deffecit . -psychatric : alert , oriented X 3 , appropriate affect , intact judgment and insight . -Lymphatic : no Lymphadenopathy . - musculoskeltal : Cervical Spine motor stregnth in the deltoid and biceps, normal right side , normal Left side motor stregnth biceps and the wrist extensors normal right side ,normal left side . motor stregnth in the triceps muscle . normal Right side , normal Left side Lumber spine moter stegnth lower extremities ,thigh and legs 5/5 Right side , 5/5 Left side Assessment and Plan Plan: Assessment and plan chronic low back pain secondary to failed back surgery syndrome and lumbar area , lumbar spondylosis with lumbar facet arthropathy . Myofascial pain syndrome cervical. 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 Myofascial pain syndrome cervical area chronic and current use of high-risk medication (opioids) Patient denies any side effects of the current pain medication and the current treatment/medication helping the patient to do activity of daily living , Diagnoses, prognosis, treatment options, including but not limited to physical therapy, medication management, interventional therapies, and surgery, were discussed with the patient All the questions answered The narcotic consent was signed and patient agreed and understood the side effects and complications of opioid treatment. Patient signed the narcotic agreement, and was orally counseled, not to overuse, not to abuse, not to Divert , not tp sell pain medication, and to take it as prescribed only, Patient was counseled not to drive or operate heavy equipment while using narcotic medication, and advised not to use alcohol or any Illicit drugs while using the narcotis. understanding that lack of compliance with any of the above instructions, will likely to cause discharge from, the pain service, not to renew his narcotic prescriptions MAPS Reviwed and it was apropriate . Medication managements= patient will be given prescription refills for Ec[place] 10/325 every 8 hours dispense 90 with 1 refill, continue Flexeril 10 mg to 3 times a day PRN. Interventions= none. Patient will be seen in the pain clinic in 2 months, I have spent 25 minutes on review of the records, review of the imaging available, [id number] interaction with the patient, medication management, follow-up care coordination and record creation. , PQRS Measure Charge Sheet Measure #130: Documentation of Current Meds in Medical Chart: Patient's medications documented in chart Measure #226: Tobacco Use: Screen & Cessation Intervention: Pt screened for tobacco use AND intervention given Measure #111: Pneumonia Vaccination: Pneumococcal vaccine administered or previously received Measure #47: Advance Care Plan: Advance care planning discussed & documented, pt chose/unable to give Measure #412: Opioid Treatment Agreement: Documented signed opioid trtmnt agreemnt min once during opioid trtmnt Measure #408: Opioid Therapy Follow-up Evaluation: Patient had f/u eval minimum every 3 months during opioid therapy Measure #317: Preventitive Care & Scrn High Bld Press & F/U: Normal blood pressure, f/u not required Measure #128: Body Mass Index (BMI) Screening & Follow-up: BMI documented ABOVE normal parameters - f/u documented Measure #131: Pain Assessment & Follow-up: Pain positive & plan documented, Follow-up scheduled Measure #431: Unhealthy Alcohol Use Preventative Care & Scrn: Patient not identified as an unhealthy alcohol user PQRS Narrative: PQRS Measure Charge Sheet PQRS Narrative: Smoking Status Former smoker Narcotic Agreement Date Signed 10/09/20 Scale Used Numeric (1 - 10) Hx Alcohol Use (MH) No Home Medications: Ambulatory Orders Ezetimibe [Zetia] 10 mg PO HS 09/05/14 Fluticasone Propionate 1 spray EA NOSTRIL BID 11/25/15 Citalopram Hydrobromide [CeleXA] 40 mg PO DAILY 12/10/15 Levothyroxine Sodium [Synthroid] 25 mcg PO DAILY 03/13/16 Simethicone [Gas-X] 125 mg PO Q8H PRN 10/19/16 Omeprazole 40 mg PO BID 11/13/16 clonazePAM [KlonoPIN] 0.5 mg PO BID PRN 05/03/17 Methylphenidate HCl 20 mg PO TID 09/09/18 busPIRone HCL 15 mg PO BID 02/05/19 Fluticasone/Vilanterol [Breo Ellipta 100-25 Mcg Inhaler] 1 puff INHALATION RT- DAILY 07/24/19 Montelukast Sodium [Singulair] 10 mg PO HS 07/24/19 Atorvastatin Calcium [Lipitor] 10 mg PO HS 10/06/19 estradioL [Estrace] 0.5 mg PO DAILY 10/06/19 Albuterol Inhaler [Ventolin Hfa Inhaler] 2 puff INHALATION RT-QID PRN 03/12/20 Acetaminophen [Tylenol] 1,000 mg PO Q4-6H PRN 07/17/20 Cetirizine HCl 10 mg PO HS 07/17/20 Cyclobenzaprine [Flexeril] 10 mg PO TID PRN #15 tab 03/26/21 HYDROcodone/APAP 10-325MG [Eccles 10-325] 1 tab PO Q8HR PRN 30 Days #90 tab 03/26/21 HYDROcodone/APAP 10-325MG [[place] 10-325] 1 tab PO Q8HR PRN 30 Days #90 tab 03/26/21 Controlled Substance Measures - Controlled Substance Measures Is patient prescribed a controlled substance at discharge?: Yes When asked, does pt state using other controlled substances?: No If prescribed controlled substance>3 days was MAPS reviewed?: Yes If Rx opioid, was Start Talking consent form obtained?: Yes If opioid is for acute pain is fill amount 7 days or less?: No Was information provided regarding opioid addiction?: No
== END ==
LOC: PNWHC3 10:03
PROVIDERS: ATTEND Anesthesiology
DX: M96.1 Postlaminectomy syndrome, not elsewhere classified (principal); M47.816 Spondylosis without myelopathy or radiculopathy, lumbar region; M79.18 Myalgia, other site; G89.29 Other chronic pain; Z79.891 Long term (current) use of opiate analgesic; Z87.891 Personal history of nicotine dependence; Z88.0 Allergy status to penicillin
CPT/HCPCS: 80307; G0482; G0463; 99212

== ENCOUNTER 2021-05-05 16:55 | Emergency (ER) | payer MEDICARE, OTHER ==
[2021-05-05 17:22] VITALS: BP 118/69; PULSE 85; RESP 18; TEMP 98.2
--- NOTE | 2021-05-05 17:42 | ED ---
Back Pain HPI - General Chief Complaint: Back Pain/Injury Stated Complaint: back pain Time Seen by Provider: 05/05/21 17:32 Source: patient Limitations: no limitations - History of Present Illness Initial Comments: 55-year-old female presenting to the emergency department with a chief complaint of back pain. She reports history of chronic back pain and is currently taking [place] for pain. States her pain is located in the right paraspinal region with radiation along the posterior aspect of her right lower extremity. States she sees a neurosurgeon out of [facility] was also performed or surgeries. Patient reports she was here about 1-2 months ago and had a CT performed lumbar spine. She also had an MRI performed showing degenerative disc changes. Patient reports she is only here for symptomatic relief. Reports this pain has been ongoing for the past several days with no acute injuries. States it is a typical exacerbation of her chronic back pain. She denies any saddle anesthesia, urinary retention with overflow bowel incontinence. - Related Data Home Medications Medication Instructions Recorded Confirmed Ezetimibe [Zetia] 10 mg PO HS 09/05/14 03/26/21 Fluticasone Propionate 1 spray EA NOSTRIL BID 11/25/15 03/26/21 Citalopram Hydrobromide [CeleXA] 40 mg PO DAILY 12/10/15 03/26/21 Levothyroxine Sodium [Synthroid] 25 mcg PO DAILY 03/13/16 03/26/21 Simethicone [Gas-X] 125 mg PO Q8H PRN 10/19/16 03/26/21 Omeprazole 40 mg PO BID 11/13/16 03/26/21 clonazePAM [KlonoPIN] 0.5 mg PO BID PRN 05/03/17 03/26/21 Methylphenidate HCl 20 mg PO TID 09/09/18 03/26/21 busPIRone HCL 15 mg PO BID 02/05/19 03/26/21 Fluticasone/Vilanterol [Breo 1 puff INHALATION RT-DAILY 07/24/19 03/26/21 Ellipta 100-25 Mcg Inhaler] Montelukast Sodium [Singulair] 10 mg PO HS 07/24/19 03/26/21 Atorvastatin Calcium [Lipitor] 10 mg PO HS 10/06/19 03/26/21 estradioL [Estrace] 0.5 mg PO DAILY 10/06/19 03/26/21 Albuterol Inhaler [Ventolin Hfa 2 puff INHALATION RT-QID PRN 03/12/20 03/26/21 Inhaler] Acetaminophen [Tylenol] 1,000 mg PO Q4-6H PRN 07/17/20 03/26/21 Cetirizine HCl 10 mg PO HS 07/17/20 03/26/21 Previous Rx's Medication Instructions Recorded Cyclobenzaprine [Flexeril] 10 mg PO TID PRN #15 tab 03/26/21 HYDROcodone/APAP 10-325MG [[place] 1 tab PO Q8HR PRN 30 Days #90 tab 03/26/21 10-325] HYDROcodone/APAP 10-325MG [[place] 1 tab PO Q8HR PRN 30 Days #90 tab 03/26/21 10-325] Allergies Allergy/AdvReac Type Severity Reaction Status Date / Time Penicillins Allergy Rash/Hives Verified 05/05/21 17:18 Review of Systems ROS Statement: Those systems with pertinent positive or pertinent negative responses have been documented in the HPI. ROS Other: All systems not noted in ROS Statement are negative. Past Medical History Past Medical History: Asthma, COPD, GERD/Reflux, Hyperlipidemia, Osteoarthritis (OA), Syncope, Thyroid Disorder Additional Past Medical History / Comment(s): kidney stones, hypoglycemia, chronic neck and L shoulder, lower back pain. Hx L facial and L ankle fxs, sinus problems, vertigo, falls in past due to syncope, low BP at times. Fusion of sacrum and iliac crest-per . 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 Rectocele repair. colonoscopy, d&c Past Anesthesia/Blood Transfusion Reactions: Previous Problems w/ Anesthesia Additional Past Anesthesia/Blood Transfusion Reaction / Comment(s): "Takes longer to wake up from anesthesia." Past Psychological History: ADD/ADHD, Anxiety, Depression Smoking Status: Former smoker Past Alcohol Use History: None Reported Past Drug Use History: None Reported - Past Family History Mother Family Medical History: Cancer Additional Family Medical History / Comment(s): lung Father Family Medical History: Asthma, COPD, Osteoarthritis (OA) Additional Family Medical History / Comment(s): Father at age 80 yrs. General Exam Limitations: no limitations General appearance: alert, in no apparent distress, obese Head exam: Present: atraumatic, normocephalic, normal inspection Eye exam: Present: normal appearance, PERRL Pupils: Present: normal accommodation ENT exam: Present: normal exam, normal oropharynx, mucous membranes moist Neck exam: Present: normal inspection, full ROM. Absent: tenderness, lymphadenopathy Respiratory exam: Present: normal lung sounds bilaterally. Absent: respiratory distress Cardiovascular Exam: Present: regular rate, normal rhythm, normal heart sounds. Absent: systolic murmur GI/Abdominal exam: Present: soft. Absent: distended, tenderness, guarding, rebound Extremities exam: Present: normal inspection, full ROM, other (Positive leg raise test, right side) Back exam: Present: normal inspection (Scarring from previous surgeries in the lumbar spine ), full ROM, tenderness, paraspinal tenderness (Right paraspinal tenderness) Neurological exam: Present: alert, oriented X3 Psychiatric exam: Present: normal affect, normal mood Skin exam: Present: warm, dry, intact, normal color Course Vital Signs 05/05/21 17:18 Temperature 98.2 F Pulse Rate 85 Respiratory 18 Rate Blood Pressure 118/69 O2 Sat by Pulse 99 Oximetry Medical Decision Making - Medical Decision Making 55-year-old female with acute on chronic back pain. Patient was given a Lidoderm patch and Dilaudid for pain. This helped improve her symptoms. She is able to ambulate without difficulties. Recent MRI and CT imaging performed. No concern for cauda equina. She feels comfortable and she will follow-up with her final touch up painter. Return parameters were discussed with patient as an ascending agreeable. Disposition Clinical Impression: Strain of lumbar region Disposition: HOME SELF-CARE Condition: Stable Instructions (If sedation given, give patient instructions): Acute Low Back Pain (ED) Additional Instructions: Please return to the Emergency Department if symptoms worsen or any other concerns. Is patient prescribed a controlled substance at d/c from ED?: No Referrals: Ihsan Ding DO [Primary Care Provider] - 1-2 days Time of Disposition: 17:55
[2021-05-05] MEDS ORDERED: HYDROmorphone 1 MG/ML 1 ML SYRINGE IM STA (17:50)
[2021-05-05] MEDS ORDERED: LIDOCAINE 5% PATCH TOPICAL STA (17:50)
== END 2021-05-05 18:18 | disposition home or self-care (01) ==
LOC: EC 16:55
DX: S39.012A Strain of muscle, fascia and tendon of lower back, initial encounter (principal); G89.29 Other chronic pain; J45.909 Unspecified asthma, uncomplicated; K21.9 Gastro-esophageal reflux disease without esophagitis; E78.5 Hyperlipidemia, unspecified; M19.90 Unspecified osteoarthritis, unspecified site; E07.9 Disorder of thyroid, unspecified; F90.9 Attention-deficit hyperactivity disorder, unspecified type; F41.9 Anxiety disorder, unspecified; F32.9 Major depressive disorder, single episode, unspecified; Z88.0 Allergy status to penicillin; Z87.442 Personal history of urinary calculi; Z90.89 Acquired absence of other organs; Z90.710 Acquired absence of both cervix and uterus; Z87.891 Personal history of nicotine dependence; X58.XXXA Exposure to other specified factors, initial encounter
CPT/HCPCS: 99283; 96372; J1170

== ENCOUNTER 2021-05-09 16:46 | Emergency (ER) | payer MEDICARE, OTHER ==
[2021-05-09 16:51] VITALS: TEMP 97.7
[2021-05-09] MEDS ORDERED: ORPHENADRINE 30 MG/ML 2 ML VIAL IM STA (17:27)
[2021-05-09] MEDS ORDERED: methylPREDNISolone SOD SUCCI 125 MG/2 ML VIAL IM ONE (17:27)
--- NOTE | 2021-05-09 17:32 | ED ---
General Adult HPI - General Chief complaint: Back Pain/Injury Stated complaint: back/abd pain Time Seen by Provider: 05/09/21 17:08 Source: patient, RN notes reviewed, old records reviewed Mode of arrival: ambulatory Limitations: no limitations - History of Present Illness Initial comments: This is a well-appearing 55-year-old white female that presents to the emergency room with complaints of low back pain. She states that this is chronic in nature and she is scheduled to have a pain stimulator placed in her thoracic spine next week. She states that she canceled that appointment because it's her low back that started hurting her. She has been seeing a pain management doctor and he has put her on [place] and Flexeril. Patient states that she took [place] at 2:00 and the Flexeril at 9:00 this morning and she has not had pain relief. She denies any bowel or bladder incontinence, no fevers, no recent surgeries or spinal injections also. She denies any nausea vomiting or diarrhea. -: year(s) Location: back Severity scale (1-10): 10 Quality: sharp Consistency: constant Improves with: rest Worsens with: movement Associated Symptoms: denies other symptoms Treatments Prior to Arrival: other ([place] at 2:00 Flexeril at 9 AM) - Related Data Home Medications Medication Instructions Recorded Confirmed Ezetimibe [Zetia] 10 mg PO HS 09/05/14 03/26/21 Fluticasone Propionate 1 spray EA NOSTRIL BID 11/25/15 03/26/21 Citalopram Hydrobromide [CeleXA] 40 mg PO DAILY 12/10/15 03/26/21 Levothyroxine Sodium [Synthroid] 25 mcg PO DAILY 03/13/16 03/26/21 Simethicone [Gas-X] 125 mg PO Q8H PRN 10/19/16 03/26/21 Omeprazole 40 mg PO BID 11/13/16 03/26/21 clonazePAM [KlonoPIN] 0.5 mg PO BID PRN 05/03/17 03/26/21 Methylphenidate HCl 20 mg PO TID 09/09/18 03/26/21 busPIRone HCL 15 mg PO BID 02/05/19 03/26/21 Fluticasone/Vilanterol [Breo 1 puff INHALATION RT-DAILY 07/24/19 03/26/21 Ellipta 100-25 Mcg Inhaler] Montelukast Sodium [Singulair] 10 mg PO HS 07/24/19 03/26/21 Atorvastatin Calcium [Lipitor] 10 mg PO HS 10/06/19 03/26/21 estradioL [Estrace] 0.5 mg PO DAILY 10/06/19 03/26/21 Albuterol Inhaler [Ventolin Hfa 2 puff INHALATION RT-QID PRN 03/12/20 03/26/21 Inhaler] Acetaminophen [Tylenol] 1,000 mg PO Q4-6H PRN 07/17/20 03/26/21 Cetirizine HCl 10 mg PO HS 07/17/20 03/26/21 Previous Rx's Medication Instructions Recorded Cyclobenzaprine [Flexeril] 10 mg PO TID PRN #15 tab 03/26/21 HYDROcodone/APAP 10-325MG [[place] 1 tab PO Q8HR PRN 30 Days #90 tab 03/26/21 10-325] HYDROcodone/APAP 10-325MG [[place] 1 tab PO Q8HR PRN 30 Days #90 tab 03/26/21 10-325] Allergies Allergy/AdvReac Type Severity Reaction Status Date / Time Penicillins Allergy Rash/Hives Verified 05/09/21 16:51 Review of Systems ROS Statement: Those systems with pertinent positive or pertinent negative responses have been documented in the HPI. ROS Other: All systems not noted in ROS Statement are negative. Past Medical History Past Medical History: Asthma, COPD, GERD/Reflux, Hyperlipidemia, Osteoarthritis (OA), Syncope, Thyroid Disorder Additional Past Medical History / Comment(s): kidney stones, hypoglycemia, chronic neck and L shoulder, lower back pain. Hx L facial and L ankle fxs, sinus problems, vertigo, falls in past due to syncope, low BP at times. 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 Rectocele repair. colonoscopy, d&c Past Anesthesia/Blood Transfusion Reactions: Previous Problems w/ Anesthesia Additional Past Anesthesia/Blood Transfusion Reaction / Comment(s): "Takes longer to wake up from anesthesia." Past Psychological History: ADD/ADHD, Anxiety, Depression Smoking Status: Former smoker Past Alcohol Use History: None Reported Past Drug Use History: None Reported - Past Family History Mother Family Medical History: Cancer Additional Family Medical History / Comment(s): lung Father Family Medical History: Asthma, COPD, Osteoarthritis (OA) Additional Family Medical History / Comment(s): Father at age 80 yrs. General Exam Limitations: no limitations General appearance: alert, in no apparent distress Head exam: Present: atraumatic, normocephalic, normal inspection Eye exam: Present: normal appearance, PERRL, EOMI. Absent: scleral icterus, conjunctival injection, periorbital swelling ENT exam: Present: normal exam, normal oropharynx, mucous membranes moist Neck exam: Present: normal inspection, full ROM. Absent: tenderness, meningismus, lymphadenopathy, thyromegaly Respiratory exam: Present: normal lung sounds bilaterally. Absent: respiratory distress, wheezes, rales, rhonchi, stridor, chest wall tenderness, accessory muscle use Cardiovascular Exam: Present: regular rate, normal rhythm, normal heart sounds. Absent: systolic murmur, diastolic murmur, rubs, gallop, clicks, JVD GI/Abdominal exam: Present: soft, normal bowel sounds. Absent: distended, tenderness, guarding, rebound, rigid Extremities exam: Present: normal inspection, full ROM, normal capillary refill. Absent: tenderness, pedal edema, joint swelling, calf tenderness Back exam: Present: normal inspection, tenderness, paraspinal tenderness, vertebral tenderness (Lumbar lumbar spine), other (3 verticle Surgical scars on the lumbar spine from previous surgery). Absent: rash noted Expanded Back exam: Absent: saddle anesthesia Back exam: Negative Straight Leg Raising: Left, Right Neurological exam: Present: alert, oriented X3, CN II-XII intact Expanded Patient oriented to: Present: person, place, time Speech: Present: fluid speech Cranial nerves: EOM's Intact: Normal, Gag Reflex: Normal, Tongue Deviation: Normal Eye Response: (4) open spontaneously Motor Response: (6) obeys commands Verbal Response: (5) oriented Haylee Total: 15 Psychiatric exam: Present: normal affect, normal mood Skin exam: Present: warm, dry, intact, normal color. Absent: rash Course Vital Signs 05/09/21 05/09/21 05/09/21 16:49 17:43 18:26 Temperature 97.7 F Pulse Rate 83 70 74 Respiratory 16 18 18 Rate Blood Pressure 87/57 112/69 111/66 O2 Sat by Pulse 98 100 97 Oximetry Medical Decision Making - Medical Decision Making Patient was given Norflex and soluMedrol and states that she did get some relief. She states that she still has pain and in the past was given a shot of Dilaudid which has helped. She is willing to be discharged home after shot of Dilaudid to continue her plan of care with her pain management doctor. She has no focal neurological deficits, there is no saddle anesthesia, she has been afebrile and no incontinence of bowel or bladder. Disposition Clinical Impression: Low back pain Disposition: HOME SELF-CARE Condition: Good Instructions (If sedation given, give patient instructions): Chronic Back Pain (DC), Lower Back Exercises (ED) Additional Instructions: Continue your medications as previously prescribed by her pain management doctor. Return to the emergency room with any new or worsening symptoms including incontinence of bowel or bladder, fevers or nausea and vomiting. Is patient prescribed a controlled substance at d/c from ED?: No Referrals: Ihsan Ding DO [Primary Care Provider] - 1-2 days Time of Disposition: 18:18
[2021-05-09 17:44] VITALS: RESP 18
[2021-05-09] MEDS ORDERED: HYDROmorphone 1 MG/ML 1 ML SYRINGE IM STA (18:16)
[2021-05-09 18:28] VITALS: BP 111/66; PULSE 74
== END 2021-05-09 19:11 | disposition home or self-care (01) ==
LOC: EC 16:46
DX: M54.5 Low back pain (principal); J44.9 Chronic obstructive pulmonary disease, unspecified; E78.5 Hyperlipidemia, unspecified; F32.9 Major depressive disorder, single episode, unspecified; F41.9 Anxiety disorder, unspecified; K21.9 Gastro-esophageal reflux disease without esophagitis; M19.90 Unspecified osteoarthritis, unspecified site; Z87.891 Personal history of nicotine dependence; Z88.0 Allergy status to penicillin; Z79.51 Long term (current) use of inhaled steroids; Z79.890 Hormone replacement therapy; Z79.899 Other long term (current) drug therapy
CPT/HCPCS: 96372 ×3; 99283; J2360; J2930; J1170

== ENCOUNTER → 2021-05-21 | Outpatient (CLI) | payer MEDICARE, OTHER ==
[2021-05-21 10:45] VITALS: BP 105/70; PULSE 72; RESP 18; TEMP 98.4
--- NOTE | 2021-05-21 11:09 | P.PN ---
Subjective Progress Note Date: 05/21/21 Principal diagnosis: Lumbar back pain Mrs. Acuna is a 55-year-old pleasant female came to [facility] pain clinic for follow-up visit. Patient has ongoing chronic low back pain status post lumbar back surgery 3, and a spinal cord stimulation in place. Patient is planning to go for lumbar back surgery evaluation next month with her neurosurgeon. Patient had uncontrolled pain went to the ER on 02/22/2021, patient was given Dilaudid for pain at the time. Patient is currently taking [place] 10/325 by mouth every 8 hours, Flexeril 10 mg, Klonopin 0.5 mg by mouth every 12 hours, and methylphenidate 20 mg every 8 hours for ADHD. Had a lengthy discussion with the patient regarding drug interactions and including respiratory depression and . Patient requested to increase her pain medications, but discussed with the patient regarding risk of respiratory depression having multiple drug interactions. Patient clearly understood. Patient described her pain is aching, throbbing type of pain. He rated her pain 7-9 out of 10 in severity. With the help of medications her pain levels are 6- 7 out of 10 in severity. Activities making her pain worse. Medications, resting helping in relieving pain. Sometimes her pain radiating to bilateral lower extremity causing numbness.. Overall activities and decreased secondary to pain. Because of the pain sometimes patient is feeling lack of sleep, interest, and energy. Denied any bowel or bladder problems at this time. Patient using cane for walking support. Patient denied any suicidal ideas/homicidal ideas at this time. Patient denied any red flag symptoms related to pain. Objective - Vital Signs Vital signs: Vital Signs Temp 98.4 F 05/21/21 10:41 Pulse 72 05/21/21 10:41 Resp 18 05/21/21 10:41 BP 105/70 05/21/21 10:41 Pulse Ox 97 05/21/21 10:41 Intake & Output 05/20/21 05/21/21 05/21/21 18:59 06:59 18:59 Weight 77.111 kg - Exam General: Well-developed, well-nourished, no acute distress HEENT: Normocephalic, and atraumatic Neck: Supple, no neck swelling Psychiatric: Appropriate mood, and affect MAGNET PLACER: No focal neurological deficits Musculoskeletal: Upper extremity: Normal strength, and range of motion. Sensation grossly intact Lower extremity: Normal strength, and decreased range of motion secondary to pain Lumbar spine: Paravertebral tenderness: positive , healed lumbar spine scar, Lumbar facet load test : positive Sacroiliac joint tenderness: Positive Thigh thrust test: Positive SI joint compression test: Positive Fabere test: Positive Assessment and Plan Assessment: Lumbar spondylosis without myelopathy Lumbar postlaminectomy syndrome, and lumbar radiculopathy Sacroiliac joint dysfunction Myofascial pain syndrome, and chronic pain syndrome Plan: 1 Opioid, and psychological risk tools, and scores were reviewed. Diagnoses, prognosis, and multiple treatment options including but not limited to physical therapy, interventional therapy, adjunct medication therapy, narcotic medication, and surgical options were discussed with the patient. And all questions were answered to the patient's satisfaction. #2 Opioid agreement: Patient was thoroughly discussed regarding the medication side effects, complications associated with narcotic use. Patient recommended do not drive while on narcotic medications, any other sedative medications, and illicit drugs including marijuana. Patient clearly understood. #3 Patient was counseled on importance of regular exercise. Including nuno chi, aerobic exercises as tolerated. Which helps for chronic pain, and overall well- being. Patient also counseled regarding importance of weight control rolling chronic pain, and overall other health issues. By altering diet habits, minimizing sugar intake, and processed foods helps in minimizing Inflammation. Also discussed with the patient regarding intermittent fasting. #4 consultation: Neurosurgical consultation #5 investigations: MAPS , urine drug test- reviewed. Urine positive for opiate, and benzodiazepines #6 interventional procedures: Patient refused #7 medications #1 [place] 10/325 by mouth every 8 hours as needed dispense 90 with no refill #2 Klonopin 0.5 mg by mouth every 12 hours from her psychiatrist for anxiety #3 naloxone 4 mg for respiratory depression intranasal as needed dispense #2 #4 discontinue Flexeril- Medication side effects, complications, long-term consequences discussed with the patient. Patient recommended to contact apparently notice any problems with that given medications. Had a lengthy discussion with the patient regarding medication interactions including respiratory depression and . Patient understood. At this clinic visit not increased any of her narcotic medication dose secondary to concern risk of respiratory depression and combination of her other medications. Her psychiatrist was sent a letter requesting to wean her Klonopin to other anxiolytic medications for anxiety. #8 morphine milligrams equivalents dose ( MME) per day: 30. #9 TENS unit's, and percussion massage device #10 disposition scheduled to follow up with pain clinic in 4 weeks duration. .
== END ==
LOC: PNWHC3 10:09
DX: M47.26 Other spondylosis with radiculopathy, lumbar region (principal); M96.1 Postlaminectomy syndrome, not elsewhere classified; G89.4 Chronic pain syndrome; M79.18 Myalgia, other site; M53.3 Sacrococcygeal disorders, not elsewhere classified; Z87.891 Personal history of nicotine dependence; Z88.0 Allergy status to penicillin
CPT/HCPCS: 99211

== ENCOUNTER → 2021-06-18 | Outpatient (CLI) | payer MEDICARE, OTHER ==
--- NOTE | 2021-06-18 13:11 | XR ---
EXAMINATION TYPE: XR chest 2V DATE OF EXAM: 06/18/2021 COMPARISON: 01/02/2021 INDICATION: Preop TECHNIQUE: Frontal and lateral views of the chest are obtained. FINDINGS: The heart size is normal. The pulmonary vasculature is normal. The lungs are clear. IMPRESSION: 1. No acute pulmonary process.
== END | disposition home or self-care (01) ==
LOC: RADXRMAIN 12:38
PROVIDERS: ATTEND Neurological Surgery
DX: Z01.818 Encounter for other preprocedural examination (principal)
CPT/HCPCS: 71046

== ENCOUNTER → 2021-06-18 | Outpatient (CLI) | payer MEDICARE, OTHER ==
[2021-06-18 14:37] VITALS: BP 111/71; PULSE 88; RESP 18; TEMP 97.7
--- NOTE | 2021-06-30 15:42 | P.PN ---
Subjective Progress Note Date: 06/18/21 Concetta 55 year old female presenting to clinic today for follow-up appointment and medication refill. She has a history of chronic low back pain more in the coccyx area right side greater than left. She reports that her pain is worse with activity and excessive standing and driving. It is relieved with rest and medications. She denies any adverse effects or competitions from her medications. She reports that the medications allow to do her daily activities with limited impairment from her pain. She is scheduled 07/14/2021 for revision of her fusion including discectomy. She denies any bowel or bladder dysfunction, saddle anesthesia, or any other red flag symptoms. Objective - Exam Physical Examinations : -Constitutiona : Cooperative , not in acute distress . -HEENT : nech : supple , no Lymphadenopathy , normal thyroid size . : eyes : no ptosis , no icterus, no photophobia . - neurologic : Cranial nerve II to XII intact , no focal neurological deffecit . -psychatric : alert , oriented X 3 , appropriate affect , intact judgment and insight . -Lymphatic : no Lymphadenopathy . - musculoskeltal : Lumber spine moter stegnth lower extremities ,thigh and legs 5/5 Right side , 5/5 Left side deep tendon reflexes : normal Knee Jerk , normal ankle Jerk lumber facet Loading Test =positive Right , positive Left Range of motion of the lumbar spine Flexion 30 degrees, extension 10 degrees strait leg raising test = positive at 20 degree Assessment and Plan Assessment: Assessment: Lumbar spondylosis without myelopathy Lumbar postlaminectomy syndrome, and lumbar radiculopathy Sacroiliac joint dysfunction Myofascial pain syndrome, and chronic pain syndrome Plan: 1 Opioid, and psychological risk tools, and scores were reviewed. Diagnoses, prognosis, and multiple treatment options including but not limited to physical therapy, interventional therapy, adjunct medication therapy, narcotic medication, and surgical options were discussed with the patient. And all questions were answered to the patient's satisfaction. #2 Opioid agreement: Patient was thoroughly discussed regarding the medication side effects, complications associated with narcotic use. Patient recommended do not drive while on narcotic medications, any other sedative medications, and illicit drugs including marijuana. Patient clearly understood. #3 Patient was counseled on importance of regular exercise. Including nuno chi, aerobic exercises as tolerated. Which helps for chronic pain, and overall well- being. Patient also counseled regarding importance of weight control rolling chronic pain, and overall other health issues. By altering diet habits, minimizing sugar intake, and processed foods helps in minimizing Inflammation. Also discussed with the patient regarding intermittent fasting. #4 consultation: Neurosurgical consultation / 07/14/21 revision surgery #5 investigations: MAPS , urine drug test- reviewed. Urine positive for opiate, and benzodiazepines #6 interventional procedures: Patient refused #7 medications #1 [place] 10/325 by mouth every 8 hours as needed dispense 90 with no refill #2 Klonopin 0.5 mg by mouth every 12 hours from her psychiatrist for anxiety actively working to stop #3 naloxone 4 mg for respiratory depression intranasal as needed dispense #2 #4 discontinue Flexeril- Medication side effects, complications, long-term consequences discussed with the patient. Patient recommended to contact apparently notice any problems with that given medications. Had a lengthy discussion with the patient regarding medication interactions including respiratory depression and . Patient understood. At this clinic visit not increased any of her narcotic medication dose secondary to concern risk of respiratory depression and combination of her other medications. Her psychiatrist was sent a letter requesting to wean her Klonopin to other anxiolytic medications for anxiety. #8 morphine milligrams equivalents dose ( MME) per day: 30. #9 TENS unit's, and percussion massage device #10 disposition scheduled to follow up with pain clinic in 8 weeks duration. . Time with Patient: Less than 30
== END ==
LOC: PNWHC3 10:10
PROVIDERS: ATTEND Student in an Organized Health Care Education/Training Program
DX: M47.26 Other spondylosis with radiculopathy, lumbar region (principal); M96.1 Postlaminectomy syndrome, not elsewhere classified; M79.18 Myalgia, other site; M53.3 Sacrococcygeal disorders, not elsewhere classified; G89.4 Chronic pain syndrome; Z87.891 Personal history of nicotine dependence; Z88.0 Allergy status to penicillin
CPT/HCPCS: 99211

== ENCOUNTER → 2021-06-18 | Outpatient (CLI) | payer MEDICARE, OTHER ==
[2021-06-18 10:53] LABS: INR 0.9 (<1.2); Partial Thromboplastin Time 23.6 sec (22.0-30.0); Prothrombin Time 10.2 sec (9.0-12.0)
--- NOTE | 2021-06-18 12:31 | P.PN ---
Subjective Progress Note Date: 06/18/21 Concetta 55 year old female presenting to clinic today for follow-up appointment and medication refill. She has a history of chronic low back pain more in the coccyx area right side greater than left. She reports that her pain is worse with activity and excessive standing and driving. It is relieved with rest and medications. She denies any adverse effects or competitions from her medications. She reports that the medications allow to do her daily activities with limited impairment from her pain. She is scheduled 07/14/2021 for revision of her fusion including discectomy. She denies any bowel or bladder dysfunction, saddle anesthesia, or any other red flag symptoms. Objective - Exam Physical Examinations : -Constitutiona : Cooperative , not in acute distress . -HEENT : nech : supple , no Lymphadenopathy , normal thyroid size . : eyes : no ptosis , no icterus, no photophobia . - neurologic : Cranial nerve II to XII intact , no focal neurological deffecit . -psychatric : alert , oriented X 3 , appropriate affect , intact judgment and insight . -Lymphatic : no Lymphadenopathy . - musculoskeltal : Lumber spine moter stegnth lower extremities ,thigh and legs 5/5 Right side , 5/5 Left side deep tendon reflexes : normal Knee Jerk , normal ankle Jerk lumber facet Loading Test =positive Right , positive Left Range of motion of the lumbar spine Flexion 30 degrees, extension 10 degrees strait leg raising test = positive at 20 degree Assessment and Plan Assessment: Assessment: Lumbar spondylosis without myelopathy Lumbar postlaminectomy syndrome, and lumbar radiculopathy Sacroiliac joint dysfunction Myofascial pain syndrome, and chronic pain syndrome Plan: 1 Opioid, and psychological risk tools, and scores were reviewed. Diagnoses, prognosis, and multiple treatment options including but not limited to physical therapy, interventional therapy, adjunct medication therapy, narcotic medication, and surgical options were discussed with the patient. And all questions were answered to the patient's satisfaction. #2 Opioid agreement: Patient was thoroughly discussed regarding the medication side effects, complications associated with narcotic use. Patient recommended do not drive while on narcotic medications, any other sedative medications, and illicit drugs including marijuana. Patient clearly understood. #3 Patient was counseled on importance of regular exercise. Including nuno chi, aerobic exercises as tolerated. Which helps for chronic pain, and overall well- being. Patient also counseled regarding importance of weight control rolling chronic pain, and overall other health issues. By altering diet habits, minimizing sugar intake, and processed foods helps in minimizing Inflammation. Also discussed with the patient regarding intermittent fasting. #4 consultation: Neurosurgical consultation / 07/14/21 revision surgery #5 investigations: MAPS , urine drug test- reviewed. Urine positive for opiate, and benzodiazepines #6 interventional procedures: Patient refused #7 medications #1 [place] 10/325 by mouth every 8 hours as needed dispense 90 with no refill #2 Klonopin 0.5 mg by mouth every 12 hours from her psychiatrist for anxiety actively working to stop #3 naloxone 4 mg for respiratory depression intranasal as needed dispense #2 #4 discontinue Flexeril- Medication side effects, complications, long-term consequences discussed with the patient. Patient recommended to contact apparently notice any problems with that given medications. Had a lengthy discussion with the patient regarding medication interactions including respiratory depression and . Patient understood. At this clinic visit not increased any of her narcotic medication dose secondary to concern risk of respiratory depression and combination of her other medications. Her psychiatrist was sent a letter requesting to wean her Klonopin to other anxiolytic medications for anxiety. #8 morphine milligrams equivalents dose ( MME) per day: 30. #9 TENS unit's, and percussion massage device #10 disposition scheduled to follow up with pain clinic in 8 weeks duration. . Time with Patient: Less than 30
[2021-06-18 16:57] LABS: Basophils # (A) 0.06 X 10*3/uL (0.00-0.10); Basophils % (A) 0.5 %; Eosinophils % (A) 0.8 %; HCT 37.4 % (37.2-46.3); HGB 11.6 g/dL (12.0-15.0); Lymphocytes # (A) 2.13 X 10*3/uL (0.90-5.00); Lymphocytes % (A) 17.4 %; MCH 27.6 pg (27.0-32.0); MCV 88.8 fL (80.0-97.0); Mean Platelet Volume 10.9 fL (9.5-12.2); Monocytes # (A) 0.66 X 10*3/uL (0.20-1.00); Monocytes % (A) 5.4 %; Neutrophils # (A) 9.24 X 10*3/uL (1.80-7.70); Neutrophils % (A) 75.5 %; Platelet Count 354 X 10*3/uL (140-440); RBC 4.21 X 10*6/uL (4.10-5.20); RDW 15.9 % (11.5-14.5); WBC 12.24 X 10*3/uL (4.50-10.00)
[2021-06-18 18:59] LABS: African American GFR (CKD) 88.4 (60.0-200.0); Albumin 4.7 g/dL (3.8-4.9); Albumin/Globulin Ratio 1.82 (1.60-3.17); Anion Gap 11.6 mmol/L (4.00-12.00); BUN/Creat Ratio 13.13 Ratio (12.00-20.00); Blood Urea Nitrogen 11.2 mg/dL (9.0-27.0); Calcium 9.1 mg/dL (8.7-10.3); Carbon Dioxide 24.4 mmol/L (21.6-31.8); Globulin 2.6 g/dL (1.6-3.3); Non-African American GFR(CKD) 76.3 (60.0-200.0); Potassium 4.1 mmol/L (3.5-5.5); Total Bilirubin 0.3 mg/dL (0.30-1.20); Total Protein 7.2 g/dL (6.2-8.2)
== END | disposition home or self-care (01) ==
LOC: LABWHC1 09:47
PROVIDERS: ATTEND Neurological Surgery
DX: M47.22 Other spondylosis with radiculopathy, cervical region (principal)
CPT/HCPCS: 36415; 80053; 85025; 85610; 85730; 87070; 87086

== ENCOUNTER → 2021-06-18 | Outpatient (CLI) | payer MEDICARE, OTHER | END | disposition home or self-care (01) | LOC: RADXRMAIN 12:34 | PROVIDERS: ATTEND Neurological Surgery | DX: Z53.9 Procedure and treatment not carried out, unspecified reason (principal) ==

== ENCOUNTER 2021-06-19 14:58 | Emergency (ER) | payer MEDICARE, OTHER ==
[2021-06-19 15:18] VITALS: RESP 16; TEMP 97.5
[2021-06-19] MEDS ORDERED: HYDROmorphone 1 MG/ML 1 ML SYRINGE IM STA (16:11)
--- NOTE | 2021-06-19 16:23 | ED ---
General Adult HPI - General Chief complaint: Back Pain/Injury Stated complaint: Back Pain Time Seen by Provider: 06/19/21 15:23 Source: patient, RN notes reviewed Mode of arrival: ambulatory Limitations: no limitations - History of Present Illness Initial comments: 55-year-old female with a past mental history of asthma, COPD, hyperlipidemia, chronic back pain since to the emergency room for worsening back pain. Patient states that she has had chronic back pain for quite some time. She is supposed to have surgery July 14. Patient states that she went to her pain management appointment yesterday and she had to sit for several hours to wait and this worsened her back pain. States she has come here before for pain medication when her own does not work. Patient denies any bladder or bowel changes, saddle anesthesia, weakness of the legs. - Related Data Home Medications Medication Instructions Recorded Confirmed Ezetimibe [Zetia] 10 mg PO HS 09/05/14 06/17/21 Fluticasone Propionate 1 spray EA NOSTRIL BID 11/25/15 06/17/21 Citalopram Hydrobromide [CeleXA] 40 mg PO DAILY 12/10/15 06/17/21 Levothyroxine Sodium [Synthroid] 25 mcg PO DAILY 03/13/16 06/17/21 Simethicone [Gas-X] 125 mg PO Q8H PRN 10/19/16 06/17/21 Omeprazole 40 mg PO BID 11/13/16 06/17/21 clonazePAM [KlonoPIN] 0.5 mg PO BID PRN 05/03/17 06/17/21 Methylphenidate HCl 20 mg PO TID 09/09/18 06/17/21 busPIRone HCL 15 mg PO BID 02/05/19 06/17/21 Montelukast Sodium [Singulair] 10 mg PO HS 07/24/19 06/17/21 Atorvastatin Calcium [Lipitor] 10 mg PO HS 10/06/19 06/17/21 estradioL [Estrace] 0.5 mg PO DAILY 10/06/19 06/17/21 Albuterol Inhaler [Ventolin Hfa 2 puff INHALATION RT-QID PRN 03/12/20 06/17/21 Inhaler] Acetaminophen [Tylenol] 1,000 mg PO Q4-6H PRN 07/17/20 06/17/21 Cetirizine HCl 10 mg PO HS 07/17/20 06/17/21 Varenicline [Chantix Continuing 1 mg PO BID 05/20/21 06/17/21 Pack] Previous Rx's Medication Instructions Recorded Cyclobenzaprine [Flexeril] 10 mg PO TID PRN #15 tab 03/26/21 HYDROcodone/APAP 10-325MG [[place] 1 tab PO Q8HR PRN 30 Days #90 tab 03/26/21 10-325] Allergies Allergy/AdvReac Type Severity Reaction Status Date / Time Penicillins Allergy Rash/Hives Verified 06/19/21 15:19 Review of Systems ROS Statement: Those systems with pertinent positive or pertinent negative responses have been documented in the HPI. ROS Other: All systems not noted in ROS Statement are negative. Past Medical History Past Medical History: Asthma, COPD, GERD/Reflux, Hyperlipidemia, Osteoarthritis (OA), Syncope, Thyroid Disorder Additional Past Medical History / Comment(s): kidney stones, hypoglycemia, chronic neck and L shoulder, lower back pain. Hx L facial and L ankle fxs, sinus problems, vertigo, falls in past due to syncope, low BP at times. Fusion of sacrum and iliac crest-per . 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 Rectocele repair. colonoscopy, d&c Past Anesthesia/Blood Transfusion Reactions: Previous Problems w/ Anesthesia Additional Past Anesthesia/Blood Transfusion Reaction / Comment(s): "Takes longer to wake up from anesthesia." Past Psychological History: ADD/ADHD, Anxiety, Depression Smoking Status: Former smoker Past Alcohol Use History: None Reported Past Drug Use History: None Reported - Past Family History Mother Family Medical History: Cancer Additional Family Medical History / Comment(s): lung Father Family Medical History: Asthma, COPD, Osteoarthritis (OA) Additional Family Medical History / Comment(s): Father at age 80 yrs. General Exam Limitations: no limitations General appearance: alert, in no apparent distress Head exam: Present: atraumatic Eye exam: Present: normal appearance, PERRL, EOMI. Absent: scleral icterus, conjunctival injection ENT exam: Present: normal exam, mucous membranes moist Neck exam: Present: normal inspection, full ROM. Absent: tenderness Respiratory exam: Present: normal lung sounds bilaterally. Absent: respiratory distress, wheezes Cardiovascular Exam: Present: regular rate, normal rhythm, normal heart sounds GI/Abdominal exam: Present: soft, normal bowel sounds. Absent: distended, tenderness Back exam: Absent: vertebral tenderness Course Vital Signs 06/19/21 15:15 Temperature 97.5 F L Pulse Rate 68 Respiratory 16 Rate Blood Pressure 104/54 O2 Sat by Pulse 95 Oximetry Medical Decision Making - Medical Decision Making Patient presents for acute on chronic back pain. No red flag symptoms. Patient states Toradol does not work. Patient states she has had Dilaudid in the past for this exact pain in her neck has helped. Patient will otherwise follow-up with her primary care doctor and surgeon. She will return here for any worsening symptoms. Disposition Clinical Impression: Acute exacerbation of chronic low back pain Disposition: HOME SELF-CARE Condition: Good Instructions (If sedation given, give patient instructions): Acute Low Back Pain (ED) Additional Instructions: Follow-up with pain management. Return to the emergency room for any worsening symptoms. Is patient prescribed a controlled substance at d/c from ED?: No Referrals: Ihsan Ding DO [Primary Care Provider] - 1-2 days Time of Disposition: 16:23
[2021-06-19 16:27] VITALS: BP 110/75; PULSE 98
== END 2021-06-19 16:28 | disposition home or self-care (01) ==
LOC: EC 14:58
DX: M54.59 Other low back pain (principal); G89.29 Other chronic pain; J45.909 Unspecified asthma, uncomplicated; K21.9 Gastro-esophageal reflux disease without esophagitis; E78.5 Hyperlipidemia, unspecified; M19.90 Unspecified osteoarthritis, unspecified site; E07.9 Disorder of thyroid, unspecified; F41.9 Anxiety disorder, unspecified; F32.9 Major depressive disorder, single episode, unspecified; F90.9 Attention-deficit hyperactivity disorder, unspecified type; Z88.0 Allergy status to penicillin; Z87.442 Personal history of urinary calculi; Z90.89 Acquired absence of other organs; Z90.710 Acquired absence of both cervix and uterus; Z87.891 Personal history of nicotine dependence
CPT/HCPCS: 99283 ×2; 96372 ×2; J1170

== ENCOUNTER 2021-08-08 10:55 | Emergency (ER) | payer MEDICARE, OTHER ==
[2021-08-08 12:05] LABS: Basophils # (A) 0.1 k/uL (0-0.2); Basophils % (A) 1 %; Eosinophils # (A) 0.3 k/uL (0-0.7); Eosinophils % (A) 3 %; Lymphocytes # (A) 3.1 k/uL (1.0-4.8); Lymphocytes % (A) 27 %; MCH 29.4 pg (25.0-35.0); MCHC 32.4 g/dL (31.0-37.0); MCV 90.6 fL (80.0-100.0); Monocytes # (A) 0.5 k/uL (0-1.0); Monocytes % (A) 5 %; Neutrophils # (A) 7.2 k/uL (1.3-7.7); Neutrophils % (A) 63 %; Platelet Count 301 k/uL (150-450); RBC 4.42 m/uL (3.80-5.40); RDW 14.7 % (11.5-15.5); WBC 11.3 k/uL (3.8-10.6)
[2021-08-08 12:20] LABS: ALT 20 U/L (4-34); AST 30 U/L (14-36); African American GFR (CKD) >90 (>60 ml/min/1.73 sqM); Albumin 4.5 g/dL (3.5-5.0); Alkaline Phosphatase 120 U/L (38-126); Anion Gap 9 mmol/L; Blood Urea Nitrogen 8 mg/dL (7-17); Calcium 9.5 mg/dL (8.4-10.2); Carbon Dioxide 28 mmol/L (22-30); Chloride 102 mmol/L (98-107); Glucose 91 mg/dL (74-99); Non-African American GFR(CKD) 80 (>60 ml/min/1.73 sqM); Potassium 4.4 mmol/L (3.5-5.1); Sodium 139 mmol/L (137-145); Total Bilirubin 0.4 mg/dL (0.2-1.3); Total Protein 7.9 g/dL (6.3-8.2)
[2021-08-08 12:30] LABS: INR 0.9 (<1.2); Prothrombin Time 9.6 sec (9.0-12.0)
--- NOTE | 2021-08-08 12:35 | ED ---
General Adult HPI - General Chief complaint: Dizziness Stated complaint: Dizziness Time Seen by Provider: 08/08/21 12:12 Source: patient, RN notes reviewed Mode of arrival: ambulatory Limitations: physical limitation - History of Present Illness Initial comments: 56-year-old female presents to the emergency Department with complaints of dizziness 1 week. Patient states she had back surgery on July 16. Had issues with low blood pressure and required a blood transfusion during her hospitalization. States she has spoken with her surgeon about her dizziness who encouraged her to increase her intake of fluids and did prescribe Meclizine. Patient states this medication makes her dizziness worse. States dizziness is persistent regardless of position change or activity. Complains of mild headache today. Is also concerned about a Covid exposure. Denies fever, chills, blurry vision, neck pain chest pain, shortness of breath, abdominal pain , nausea, vomiting, diarrhea, constipation, or dysuria. - Related Data Home Medications Medication Instructions Recorded Confirmed Ezetimibe [Zetia] 10 mg PO HS 09/05/14 08/08/21 Levothyroxine Sodium [Synthroid] 25 mcg PO DAILY 03/13/16 08/08/21 Omeprazole 40 mg PO BID 11/13/16 08/08/21 clonazePAM [KlonoPIN] 0.5 mg PO BID 05/03/17 08/08/21 Methylphenidate HCl 20 mg PO TID 09/09/18 08/08/21 busPIRone HCL 15 mg PO BID 02/05/19 08/08/21 Montelukast Sodium [Singulair] 10 mg PO HS 07/24/19 08/08/21 Atorvastatin Calcium [Lipitor] 10 mg PO HS 10/06/19 08/08/21 estradioL [Estrace] 0.5 mg PO DAILY 10/06/19 08/08/21 Cetirizine HCl 10 mg PO HS 07/17/20 08/08/21 Varenicline [Chantix Continuing 1 mg PO BID 05/20/21 08/08/21 Pack] Ferrous Sulfate [Feosol] 325 mg PO DAILY 08/08/21 08/08/21 Fluticasone/Vilanterol [Breo 1 puff INHALATION RT-DAILY 08/08/21 08/08/21 Ellipta 100-25 Mcg Inhaler] Naloxone HCl [Narcan] 4 mg NASAL ONCE PRN 08/08/21 08/08/21 Previous Rx's Medication Instructions Recorded Cyclobenzaprine [Flexeril] 10 mg PO TID PRN #15 tab 03/26/21 HYDROcodone/APAP 10-325MG [[place] 1 tab PO Q8HR PRN 30 Days #90 tab 03/26/21 10-325] Allergies Allergy/AdvReac Type Severity Reaction Status Date / Time Penicillins Allergy Rash/Hives Verified 08/08/21 12:45 Review of Systems ROS Statement: Those systems with pertinent positive or pertinent negative responses have been documented in the HPI. ROS Other: All systems not noted in ROS Statement are negative. Past Medical History Past Medical History: Asthma, COPD, GERD/Reflux, Hyperlipidemia, Osteoarthritis (OA), Syncope, Thyroid Disorder Additional Past Medical History / Comment(s): kidney stones, hypoglycemia, chronic neck and L shoulder, lower back pain. Hx L facial and L ankle fxs, sinus problems, vertigo, falls in past due to syncope, low BP at times. Fusion of sacrum and iliac crest-per . 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 Rectocele repair. colonoscopy, d&c Past Anesthesia/Blood Transfusion Reactions: Previous Problems w/ Anesthesia Additional Past Anesthesia/Blood Transfusion Reaction / Comment(s): "Takes longer to wake up from anesthesia." Past Psychological History: ADD/ADHD, Anxiety, Depression Smoking Status: Former smoker Past Alcohol Use History: None Reported Past Drug Use History: None Reported - Past Family History Mother Family Medical History: Cancer Additional Family Medical History / Comment(s): lung Father Family Medical History: Asthma, COPD, Osteoarthritis (OA) Additional Family Medical History / Comment(s): Father at age 80 yrs. General Exam Limitations: physical limitation General appearance: alert, in no apparent distress, other (Well-developed, well- nourished female in no acute distress. Initial temperature 98.8, pulse 90, respirations 18, blood pressure 93/60, pulse ox 98% on room air.) Head exam: Present: atraumatic, normocephalic, normal inspection Eye exam: Present: normal appearance, PERRL, EOMI. Absent: scleral icterus, conjunctival injection Pupils: Present: normal accommodation ENT exam: Present: normal exam, normal oropharynx, mucous membranes moist Neck exam: Present: normal inspection, full ROM. Absent: tenderness Respiratory exam: Present: normal lung sounds bilaterally. Absent: respiratory distress, wheezes, rales, rhonchi, stridor Cardiovascular Exam: Present: regular rate, normal rhythm, normal heart sounds. Absent: systolic murmur, diastolic murmur, rubs, gallop, clicks GI/Abdominal exam: Present: soft, normal bowel sounds. Absent: distended, tenderness, guarding, rebound, rigid Back exam: Present: tenderness (Mild tenderness noted along incisional border), other (Surgical incision appears to be healing well; does have a small area of scabbing at the proximal aspect of this incision. ). Absent: normal inspection, full ROM Neurological exam: Present: alert, oriented X3, other (Ambulates with wheeled walker) Expanded Patient oriented to: Present: person, place, time Speech: Present: fluid speech Cranial nerves: EOM's Intact: Normal, Tongue Deviation: Normal, Nystagmus: Normal, Facial Palsy with Forehead Movement: Normal Cerebellar function: Romberg: Normal Motor strength exam: RUE: 5, LUE: 5, RLE: 5, LLE: 5 Eye Response: (4) open spontaneously Motor Response: (6) obeys commands Verbal Response: (5) oriented Psychiatric exam: Present: normal affect, normal mood Skin exam: Present: warm, dry, intact, normal color Course Vital Signs 08/08/21 08/08/21 08/08/21 11:21 14:56 17:18 Temperature 98.8 F 98.2 F Pulse Rate 90 68 69 Respiratory 18 18 16 Rate Blood Pressure 93/60 100/58 105/77 O2 Sat by Pulse 98 99 97 Oximetry - Reevaluation(s) Reevaluation #1: 08/08/21 15:19 Denies any dizziness at rest. States it does occur somewhat with position change and ambulation now. 08/08/21 16:25 Patient able to ambulate without difficulty and is steady on her feet. States she thinks the dizziness has resolved at this time. Medical Decision Making - Medical Decision Making 56-year-old female with a history of syncope presents to the emergency department for evaluation of dizziness 1 week. She is status post lumbar laminectomy and required a blood transfusion after surgery. Has been taking meclizine, though feels that this is not improving her symptoms. Upon exam, patient is well-appearing and is able to ambulate without difficulty. Her blood pressure is on the low end of the normal range, however patient states this was an issue during her hospitalization as well. Patient is afebrile and not tachycardic. No focal neurological deficits. She was given a liter of IV fluids with improvement. Was also due for pain medication therefore given Dilaudid IVP. Laboratory studies were unremarkable. Chest x-ray was negative. EKG shows normal sinus rhythm. Patient takes a number of medications which raises concern for polypharmacy. However, patient feels her symptoms have improved to nearly resolved. She will be discharged home to follow-up with her primary care provider for a recheck, as well as her neurosurgeon as scheduled. Return parameters were discussed in detail. Patient verbalizes understanding and agrees with this plan. This patient's care was discussed with my attending Dr. Marquez. - Lab Data Result diagrams: 08/08/21 11:45 08/08/21 11:45 Lab Results 08/08/21 08/08/21 08/08/21 Range/Units 11:45 11:45 11:45 WBC 11.3 H (3.8-10.6) k/uL RBC 4.42 (3.80-5.40) m/uL Hgb 13.0 (11.4-16.0) gm/dL Hct 40.0 (34.0-46.0) % MCV 90.6 (80.0-100.0) fL MCH 29.4 (25.0-35.0) pg MCHC 32.4 (31.0-37.0) g/dL RDW 14.7 (11.5-15.5) % Plt Count 301 (150-450) k/uL MPV 8.0 Neutrophils % 63 % Lymphocytes % 27 % Monocytes % 5 % Eosinophils % 3 % Basophils % 1 % Neutrophils # 7.2 (1.3-7.7) k/uL Lymphocytes # 3.1 (1.0-4.8) k/uL Monocytes # 0.5 (0-1.0) k/uL Eosinophils # 0.3 (0-0.7) k/uL Basophils # 0.1 (0-0.2) k/uL PT 9.6 (9.0-12.0) sec INR 0.9 (<1.2) Sodium 139 (137-145) mmol/L Potassium 4.4 (3.5-5.1) mmol/L Chloride 102 (98-107) mmol/L Carbon Dioxide 28 (22-30) mmol/L Anion Gap 9 mmol/L BUN 8 (7-17) mg/dL Creatinine 0.82 (0.52-1.04) mg/dL Est GFR (CKD-EPI)AfAm >90 (>60 ml/min/1.73 sqM) Est GFR (CKD-EPI)NonAf 80 (>60 ml/min/1.73 sqM) Glucose 91 (74-99) mg/dL Calcium 9.5 (8.4-10.2) mg/dL Total Bilirubin 0.4 (0.2-1.3) mg/dL AST 30 (14-36) U/L ALT 20 (4-34) U/L Alkaline Phosphatase 120 (38-126) U/L Troponin I (0.000-0.034) ng/mL Total Protein 7.9 (6.3-8.2) g/dL Albumin 4.5 (3.5-5.0) g/dL Urine Color Urine Appearance (Clear) Urine pH (5.0-8.0) Ur Specific [place] (1.001-1.035) Urine Protein (Negative) Urine Glucose (UA) (Negative) Urine Ketones (Negative) Urine Blood (Negative) Urine Nitrite (Negative) Urine Bilirubin (Negative) Urine Urobilinogen (<2.0) mg/dL Ur Leukocyte Esterase (Negative) Coronavirus (PCR) (Not Detectd) 08/08/21 08/08/21 08/08/21 Range/Units 11:45 12:52 12:52 WBC (3.8-10.6) k/uL RBC (3.80-5.40) m/uL Hgb (11.4-16.0) gm/dL Hct (34.0-46.0) % MCV (80.0-100.0) fL MCH (25.0-35.0) pg MCHC (31.0-37.0) g/dL RDW (11.5-15.5) % Plt Count (150-450) k/uL MPV Neutrophils % % Lymphocytes % % Monocytes % % Eosinophils % % Basophils % % Neutrophils # (1.3-7.7) k/uL Lymphocytes # (1.0-4.8) k/uL Monocytes # (0-1.0) k/uL Eosinophils # (0-0.7) k/uL Basophils # (0-0.2) k/uL PT (9.0-12.0) sec INR (<1.2) Sodium (137-145) mmol/L Potassium (3.5-5.1) mmol/L Chloride (98-107) mmol/L Carbon Dioxide (22-30) mmol/L Anion Gap mmol/L BUN (7-17) mg/dL Creatinine (0.52-1.04) mg/dL Est GFR (CKD-EPI)AfAm (>60 ml/min/1.73 sqM) Est GFR (CKD-EPI)NonAf (>60 ml/min/1.73 sqM) Glucose (74-99) mg/dL Calcium (8.4-10.2) mg/dL Total Bilirubin (0.2-1.3) mg/dL AST (14-36) U/L ALT (4-34) U/L Alkaline Phosphatase (38-126) U/L Troponin I <0.012 (0.000-0.034) ng/mL Total Protein (6.3-8.2) g/dL Albumin (3.5-5.0) g/dL Urine Color Light Yellow Urine Appearance Clear (Clear) Urine pH 6.0 (5.0-8.0) Ur Specific [place] 1.005 (1.001-1.035) Urine Protein Negative (Negative) Urine Glucose (UA) Negative (Negative) Urine Ketones Negative (Negative) Urine Blood Negative (Negative) Urine Nitrite Negative (Negative) Urine Bilirubin Negative (Negative) Urine Urobilinogen <2.0 (<2.0) mg/dL Ur Leukocyte Esterase Negative (Negative) Coronavirus (PCR) Not Detected (Not Detectd) - EKG Data EKG shows normal: sinus rhythm Rate: normal EKG Comments: EKG was obtained at 1135 and shows normal sinus rhythm. Ventricular rate 71, NH interval 184, QRS duration 78, QT/QTc 402/436. Interpretation is normal ECG. - Radiology Data Radiology results: report reviewed, image reviewed Two-view chest x-ray was obtained. Report was reviewed in its entirety. Impression per Dr. Fabian as no acute process. No significant change from prior. Disposition Clinical Impression: Dizziness, At risk for polypharmacy Disposition: HOME SELF-CARE Condition: Stable Instructions (If sedation given, give patient instructions): Dizziness (ED) Additional Instructions: Follow-up with your PCP for recheck in the next 1-2 days. Keep the appointment as scheduled with your surgeon. Increase your intake of fluids at home. Make your position changes slowly. Return to the emergency department with any new, worsening, or concerning symptoms. Is patient prescribed a controlled substance at d/c from ED?: No Referrals: Ihsan Ding DO [Primary Care Provider] - 1-2 days Time of Disposition: 16:32
[2021-08-08] MEDS ORDERED: SODIUM CHLORIDE 0.9% 1,000 ML IV STA (12:36)
--- NOTE | 2021-08-08 13:00 | XR ---
EXAMINATION TYPE: XR chest 2V DATE OF EXAM: 08/08/2021 COMPARISON: CXR from 06/18/2021. HISTORY: Dizziness and weakness. TECHNIQUE: Frontal and lateral views of the chest are obtained. FINDINGS: There is no suspicious new focal air space opacity, pleural effusion, or pneumothorax see n. The cardiac silhouette size is stable and within normal limits. Posterior leads redemonstrated e xtending into the cervical spine. Surgical change cervical spine partially imaged. IMPRESSION: No acute process. No significant change from prior.
[2021-08-08 14:57] LABS: Appearance,Urine Clear (Clear); Bilirubin,Urine Negative (Negative); Blood,Urine Negative (Negative); Color,Urine Light Yellow; Glucose,Urine (UA) Negative (Negative); Ketones,Urine Negative (Negative); Leukocyte Esterase,Urine Negative (Negative); Nitrite,Urine Negative (Negative); Protein,Urine Negative (Negative); Specific Gravity,Urine 1.005 (1.001-1.035); Urobilinogen,Urine <2.0 mg/dL (<2.0)
[2021-08-08] MEDS ORDERED: HYDROmorphone 0.5 MG/0.5 ML SYRINGE IVP STA (15:19)
[2021-08-08 17:47] VITALS: BP 105/77; PULSE 69; RESP 16; TEMP 98.2
== END 2021-08-08 17:18 | disposition home or self-care (01) ==
LOC: EC 10:55
DX: R42 Dizziness and giddiness (principal); J44.9 Chronic obstructive pulmonary disease, unspecified; K21.9 Gastro-esophageal reflux disease without esophagitis; E78.5 Hyperlipidemia, unspecified; M19.90 Unspecified osteoarthritis, unspecified site; E07.9 Disorder of thyroid, unspecified; F41.9 Anxiety disorder, unspecified; F32.A Depression, unspecified; F90.9 Attention-deficit hyperactivity disorder, unspecified type; Z91.89 Other specified personal risk factors, not elsewhere classified; Z88.0 Allergy status to penicillin; Z87.442 Personal history of urinary calculi; Z90.710 Acquired absence of both cervix and uterus; Z87.891 Personal history of nicotine dependence; Z20.822 Contact with and (suspected) exposure to COVID-19
CPT/HCPCS: 99284; 96374; 96361; 36415; 93005; 80053; 84484; 85025; 85610; 81003; 87635; 71046; J1170

== ENCOUNTER → 2021-08-13 | Outpatient (CLI) | payer MEDICARE, OTHER ==
[2021-08-13 10:52] VITALS: BP 118/65; PULSE 74; RESP 18; TEMP 97.7
--- NOTE | 2021-08-13 11:07 | P.PN ---
Subjective Progress Note Date: 08/13/21 This is a follow-up visit for this 56 years old female with a chronic history of severe neck pain ,and low back pain, she is diagnosed with cervical spondylosis and cervical degenerative disc disease, and myofascial pain syndrome cervical area, failed back surgery syndrome cervical.(She had anterior and posterior cervical fusion ) , failed back surgery syndrome lumbar area, she continued to have severe neck pain, which is increased with any neck movement , she is currently on [place] 10/325 every 8 hours , she had no motor or sensory deficit, but the intensity of the pain interfering with her quality of life. She denies any fever or night sweats which denies any change in the bowel movement or urin ation,she reported that she had the lumbar fusion surgery done recently at [facility], June 2021,and patient reported that over the last 2 weeks she started complaining of severe headache and dizzineness, headache is not positional she reported that she continued to have severe low back pain which is intense increases with any activity interfere with the quality of life and the current medication is not helping her pain - Exam -Constitutiona : Cooperative , not in acute distress . -HEENT : nech : supple , no Lymphadenopathy , normal thyroid size . : eyes : no ptosis , no icterus, no photophobia . - neurologic : Cranial nerve II to XII intact , no focal neurological deffecit . -psychatric : alert , oriented X 3 , appropriate affect , intact judgment and insight . -Lymphatic : no Lymphadenopathy . - musculoskeltal : Cervical Spine motor stregnth in the deltoid and biceps, normal right side , normal Left side motor stregnth biceps and the wrist extensors normal right side ,normal left side . motor stregnth in the triceps muscle . normal Right side , normal Left side Lumber spine moter stegnth lower extremities ,thigh and legs 5/5 Right side , 5/5 Left side Assessment and plan chronic low back pain secondary to failed back surgery syndrome and lumbar area , lumbar spondylosis with lumbar facet arthropathy . Myofascial pain syndrome cervical. 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 Myofascial pain syndrome cervical area chronic and current use of high-risk medication (opioids) Patient denies any side effects of the current pain medication and the current treatment/medication helping the patient to do activity of daily living , Diagnoses, prognosis, treatment options, including but not limited to physical therapy, medication management, interventional therapies, and surgery, were discussed with the patient All the questions answered The narcotic consent was signed and patient agreed and understood the side effects and complications of opioid treatment. Patient signed the narcotic agreement, and was orally counseled, not to overuse, not to abuse, not to Divert , not tp sell pain medication, and to take it as prescribed only, Patient was counseled not to drive or operate heavy equipment while using narcotic medication, and advised not to use alcohol or any Illicit drugs while using the narcotis. understanding that lack of compliance with any of the above instructions, will likely to cause discharge from, the pain service, not to renew his narcotic prescriptions MAPS Reviwed and it was apropriate . Medication managements= disccontinue [place] 10/325 every 8 hours dispense 90 with 1 refill. start Percocet 10/325 every 8 hours dispense 90 patient will be referred for neurology service for evaluation of the headache and the dizziness Interventions= none. Patient will be seen in the pain clinic in 1 months, , PQRS Measure Charge Sheet Measure #130: Documentation of Current Meds in Medical Chart: Patient's medications documented in chart Measure #226: Tobacco Use: Screen & Cessation Intervention: Pt screened for tobacco use AND intervention given Measure #111: Pneumonia Vaccination: Pneumococcal vaccine administered or previously received Measure #47: Advance Care Plan: Advance care planning discussed & documented, pt chose/unable to give Measure #412: Opioid Treatment Agreement: Documented signed opioid trtmnt agreemnt min once during opioid trtmnt Measure #408: Opioid Therapy Follow-up Evaluation: Patient had f/u eval minimum every 3 months during opioid therapy Measure #317: Preventitive Care & Scrn High Bld Press & F/U: Normal blood pressure, f/u not required Measure #128: Body Mass Index (BMI) Screening & Follow-up: BMI documented ABOVE normal parameters - f/u documented Measure #131: Pain Assessment & Follow-up: Pain positive & plan documented, Follow-up scheduled Measure #431: Unhealthy Alcohol Use Preventative Care & Scrn: Patient not identified as an unhealthy alcohol user PQRS Narrative: Time with Patient: Less than 30 Objective - Vital Signs Vital signs: Vital Signs Temp 97.7 F 08/13/21 10:43 Pulse 74 08/13/21 10:43 Resp 18 08/13/21 10:43 BP 118/65 08/13/21 10:43 Pulse Ox 99 08/13/21 10:43
== END ==
LOC: PNWHC3 09:44
PROVIDERS: ATTEND Specialist
DX: G89.29 Other chronic pain (principal); M96.1 Postlaminectomy syndrome, not elsewhere classified; M47.816 Spondylosis without myelopathy or radiculopathy, lumbar region; M79.18 Myalgia, other site; Z79.891 Long term (current) use of opiate analgesic; Z88.0 Allergy status to penicillin
CPT/HCPCS: 99211

== ENCOUNTER → 2021-09-10 | Outpatient (CLI) | payer MEDICARE, OTHER ==
--- NOTE | 2021-09-10 10:50 | P.PN ---
Subjective Progress Note Date: 09/10/21 Principal diagnosis: A 56 yr old female with a history of severe and chronic low back pain secondary to lumbar degenerative disc diseases and lumbar spondylosis with facet arthropathy presents today for medication refills. Pain level is 8 /10, localized throughout the lumbar spine and dull/ achy in character with a shooting sensation towards the bilateral hips. Pain is provoked by any type of movement (sitting, standing, twisting, bending, etc). Pain is alleviated with me dications, topicals, heat, physical therapy approximately 6 years ago and rest. Uses a walking cane for ambulation. Would like to step down to [place] from Percocet 10/ 325mg. Interventional pain procedures completed include Lumbar surgery, pain stimulator placement & removal Patient is currently on Percocet 10/ 325mg #90 Patient denies any side effects of the medication(s), denies excessive drows iness or sleepiness, denies suicidal ideation and reports that the current pain medication is helping to control the pain and improve activities of daily living. Patient denies any motor or sensory deficits. Patient denies any fever or night sweats, denies any change in the bowel movements or urination. Physical Examination: -Constitutional: Cooperative. Not in acute distress . -HEENT: Neck is supple. No lymphadenopathy. No thyromegaly. Normal thyroid size. Eyes: No ptosis , no icterus, no photophobia. ENT: No auditory deficits. Normal oropharynx. No Thrush. - Respiratory: Chest clear to auscultations bilaterally. No wheezing. No rhonchi. - Cardiovascular: Regular rate and rhythm. S1 / S2 , no S3 , no S4. - Gastrointestinal: Abdomen soft no tenderness. Bowel sounds positive in all four quadrants. No organomegaly. - Genitourinary: Deferred. - Neurologic: Cranial nerve II to XII intact. No focal neurological deficits. - Psychatric: Alert & oriented x 3. Matching mood & appropriate affect. Judgment and insight intact. - Lymphatic: No Lymphadenopathy. - Musculoskeletal: Cervical spine: Muscle bulk/ tone/ strength in the bilateral upper extremities normal. Facet loading test cervical area positive. Lumbar spine: Well healed 4" vertical incisional scar & two 5" vertical incisional scars over the lumbar facets and 3" well healed incisional scar over the right iliac crest Motor bulk/ tone/ strength lower extremities , thigh and legs : 5/5 Deep tendon reflexes : Normal Knee Jerk. Normal Ankle Jerk . Lumbar Facet Loading Test positive bilaterally Straight Leg Raise: positive at 30 degree right side/ left side Tim test: positive right side / left side Range of motion: Flexion of the lumbar spine 75 degrees Range of motion: Extension of the lumbar spine <20 degrees Severe tenderness over the Sacroiliac joint: right side / left side Assessment and plan: Chronic low back pain secondary to lumbar degenerative disc disease , lumbar spondylosis with facet arthropathy without myelopathy Chronic and current use of high-risk medication (Opioids). Step down to [place], filled 10/325mg #90 with one refill Use, side effects and adverse reactions discussed and pt verbalized understanding UDS reviewed and consistent The patient was counseled about risk of opioid use, psychological risk associated with opioids and was orally counseled to not overuse , divert or sell medications. Pt is to store medication in a safe location. The patient is counseled against driving while using narcotic medications and also not to use alcohol or any illicit recreational drugs. Patient verbalized understanding that the lack of compliance will result in failure to renew narcotic prescription(s) as well as possible discharge from the clinic Diagnoses, prognosis and treatment options including but not limited to physical therapy, surgical interventions, interventional therapies and medication management including narcotics and adjuvant medication were discussed. All patient questions answered MAPS reviewed and it was appropriate. I have spent 31 minutes on patient care today. Dr Castanon was available by phone for the evaluation of this patient. The time was used to review the medical records including relevant urine studies and Prescription history (MAPs), review of the available imaging, evaluation and examination of the patient, coordination of care with the medical staff and if applicable referring physicians, as well as creation of the medical record PQRS Measure Charge Sheet PQRS Narrative: Smoking Status Former smoker Narcotic Agreement Date Signed 10/09/20 Pain Intensity [Lower Back] 7 Scale Used Numeric (1 - 10) Hx Alcohol Use (MH) No Home Medications: Ambulatory Orders Ezetimibe [Zetia] 10 mg PO HS 09/05/14 Levothyroxine Sodium [Synthroid] 25 mcg PO DAILY 03/13/16 Omeprazole 40 mg PO BID 11/13/16 clonazePAM [KlonoPIN] 0.5 mg PO BID 05/03/17 Methylphenidate HCl 20 mg PO TID 09/09/18 busPIRone HCL 15 mg PO BID 02/05/19 Montelukast Sodium [Singulair] 10 mg PO HS 07/24/19 Atorvastatin Calcium [Lipitor] 10 mg PO HS 10/06/19 estradioL [Estrace] 0.5 mg PO DAILY 10/06/19 Cetirizine HCl 10 mg PO HS 07/17/20 Cyclobenzaprine [Flexeril] 10 mg PO TID PRN #15 tab 03/26/21 Varenicline [Chantix Continuing Pack] 1 mg PO BID 05/20/21 Ferrous Sulfate [Feosol] 325 mg PO DAILY 08/08/21 Fluticasone/Vilanterol [Breo Ellipta 100-25 Mcg Inhaler] 1 puff INHALATION RT- DAILY 08/08/21 Naloxone HCl [Narcan] 4 mg NASAL ONCE PRN 08/08/21 Meclizine [Antivert] 25 mg PO TID PRN 08/11/21 oxyCODONE HCL/ACETAMINOPHEN [Percocet 10-325 mg] 1 tab PO Q8HR PRN 30 Days #90 tab 08/13/21
[2021-09-10 15:51] VITALS: BP 102/60; PULSE 70; RESP 15; TEMP 97.5
== END ==
LOC: PNWHC3 10:26
PROVIDERS: ATTEND Physician Assistant Medical
DX: M51.36 Other intervertebral disc degeneration, lumbar region (principal); M47.816 Spondylosis without myelopathy or radiculopathy, lumbar region; G89.29 Other chronic pain; Z79.891 Long term (current) use of opiate analgesic; Z87.891 Personal history of nicotine dependence; Z88.0 Allergy status to penicillin
CPT/HCPCS: 99211

== ENCOUNTER → 2021-11-05 | Outpatient (CLI) | payer MEDICARE, OTHER ==
[2021-11-05 09:57] VITALS: BP 100/67; PULSE 59; RESP 18; TEMP 97.6
--- NOTE | 2021-11-05 09:57 | P.PN ---
Subjective Progress Note Date: 11/05/21 Principal diagnosis: A 56 yr old female with a history of severe and chronic low back pain secondary to lumbar degenerative disc diseases and lumbar spondylosis with facet arthropathy presents today for medication refills. Patient states her pain level is 8 out of 10 in intensity in the lower aspect of her lumbar spine, sharp, crushing sensation without radiation of pain to the lower extremities. Pain is provoked by bending, twisting or lifting. Pain is alleviated with med ications, topical Biofreeze gel, heat, massage, repositioning and rest. Pt followed up with her neurologist and completed an MRI of the brain , of which we do not have records of. Pt stated her neurologist is outside the [facility] network and she will follow up with him re: headaches. Patient is currently on [place] 10/ #90 from this clinic Patient denies any side effects of the medication(s), denies excessive drowsiness or sleepiness, denies suicidal ideation and reports that the current pain medication is helping to control the pain and improve activities of daily living. Patient denies any motor or sensory deficits. Patient denies any fever or night sweats, denies any change in the bowel movements or urination. Physical Examination: -Constitutional: Cooperative. Not in acute distress . -HEENT: Neck is supple. No lymphadenopathy. No thyromegaly. Normal thyroid size. Eyes: No ptosis , no icterus, no photophobia. ENT: No auditory deficits. Normal oropharynx. No Thrush. - Respiratory: Chest clear to auscultations bilaterally. No wheezing. No rhonchi. - Cardiovascular: Regular rate and rhythm. S1 / S2 , no S3 , no S4. - Gastrointestinal: Abdomen soft no tenderness. Bowel sounds positive in all four quadrants. No organomegaly. - Genitourinary: Deferred. - Neurologic: Cranial nerve II to XII intact. No focal neurological defi cits. - Psychatric: Alert & oriented x 3. Matching mood & appropriate affect. Judgment and insight intact. - Lymphatic: No Lymphadenopathy. - Musculoskeletal: Cervical spine: Muscle bulk/ tone/ strength in the bilateral upper extremities normal. Facet loading test cervical area positive. Lumbar spine: Motor bulk/ tone/ strength lower extremities , thigh and legs : 5/5 Deep tendon reflexes : Normal Knee Jerk. Normal Ankle Jerk . Vertebral body tenderness to palpation over L3, L4, L5 Lumbar Facet Loading Test positive Straight Leg Raise: positive at 30 degrees right side/ left side Gaenslen's Test positive Sacral spine : Severe tenderness over the Sacroiliac joint: right side / left side Range of motion: Flexion of the lumbar spine <60 degrees Range of motion: Extension of the lumbar spine <20 degrees Gaenslen's Test positive Tim test: positive right side / left side Assessment and plan: Chronic low back pain secondary to lumbar degenerative disc disease , lumbar spondylosis with facet arthropathy without myelopathy Chronic and current use of high-risk medication (Opioids). The patient was counseled about risk of opioid use, psychological risk associated with opioids and was orally counseled to not overuse , divert or sell medications. Pt is to store medication in a safe location. The patient is counseled against driving while using narcotic medications and also not to use alcohol or any illicit recreational drugs. Patient verbalized understanding that the lack of compliance will result in failure to renew narcotic prescription(s) as well as possible discharge from the clinic Diagnoses, prognosis and treatment options including but not limited to physical therapy, surgical interventions, interventional therapies and medication management including narcotics and adjuvant medication were discussed. All patient questions answered MAPS reviewed and it was appropriate. Urine collected for UDS today. Prescription refill for [place] 10/325mg #90 with 1 refill. I have spent 31 minutes on patient care today. Dr Castanon was available by phone for the evaluation of this patient. The time was used to review the medic al records including relevant urine studies and Prescription history (MAPs), review of the available imaging, evaluation and examination of the patient, coordination of care with the medical staff and if applicable referring physicians, as well as creation of the medical record PQRS Measure Charge Sheet Mode of Arrival: Ambulatory PQRS Narrative: Smoking Status Former smoker Narcotic Agreement Date Signed 10/09/20 Blood Pressure 100/67 Pain Intensity [Lower Back] 8 Scale Used Numeric (1 - 10) Hx Alcohol Use (MH) No Home Medications: Ambulatory Orders Ezetimibe [Zetia] 10 mg PO HS 09/05/14 Levothyroxine Sodium [Synthroid] 25 mcg PO DAILY 03/13/16 Omeprazole 40 mg PO BID 11/13/16 clonazePAM [KlonoPIN] 0.5 mg PO BID 05/03/17 Methylphenidate HCl 20 mg PO TID 09/09/18 busPIRone HCL 15 mg PO BID 02/05/19 Montelukast Sodium [Singulair] 10 mg PO HS 07/24/19 Atorvastatin Calcium [Lipitor] 10 mg PO HS 10/06/19 estradioL [Estrace] 0.5 mg PO DAILY 10/06/19 Cetirizine HCl 10 mg PO HS 07/17/20 Cyclobenzaprine [Flexeril] 10 mg PO TID PRN #15 tab 03/26/21 Varenicline [Chantix Continuing Pack] 1 mg PO BID 05/20/21 Ferrous Sulfate [Feosol] 325 mg PO DAILY 08/08/21 Fluticasone/Vilanterol [Breo Ellipta 100-25 Mcg Inhaler] 1 puff INHALATION RT- DAILY 08/08/21 Naloxone HCl [Narcan] 4 mg NASAL ONCE PRN 08/08/21 Meclizine [Antivert] 25 mg PO TID PRN 08/11/21 HYDROcodone/APAP 10-325MG [[place] 10-325] 1 tab PO Q8HR PRN 30 Days #90 tab 11/05/21 HYDROcodone/APAP 10-325MG [[place] 10-325] 1 tab PO Q8HR PRN 30 Days #90 tab 11/05/21
== END ==
LOC: PNWHC3 09:04
PROVIDERS: ATTEND Physician Assistant Medical
DX: M51.36 Other intervertebral disc degeneration, lumbar region (principal); M47.816 Spondylosis without myelopathy or radiculopathy, lumbar region; G89.29 Other chronic pain; Z79.891 Long term (current) use of opiate analgesic; Z87.891 Personal history of nicotine dependence; Z88.0 Allergy status to penicillin
CPT/HCPCS: 80307; G0482; G0463; 99212

== ENCOUNTER 2022-02-09 10:28 | Emergency (ER) | payer MEDICARE, OTHER ==
[2022-02-09 11:25] VITALS: BP 119/75; PULSE 103; RESP 20; TEMP 97.4
--- NOTE | 2022-02-09 12:08 | XR ---
EXAMINATION TYPE: XR chest 2V DATE OF EXAM: 02/09/2022 COMPARISON: 08/08/2021 INDICATION: Cough TECHNIQUE: Frontal and lateral views of the chest are obtained. FINDINGS: The heart size is normal. The pulmonary vasculature is normal. The lungs are clear. Stimulator leads are present. Postsurgical changes are within the lower cervica l spine. IMPRESSION: 1. No acute pulmonary process.
--- NOTE | 2022-02-09 12:43 | ED ---
General Adult HPI - General Chief complaint: Upper Respiratory Infection Stated complaint: IVAN Time Seen by Provider: 02/09/22 11:47 Source: patient, RN notes reviewed Mode of arrival: ambulatory Limitations: no limitations - History of Present Illness Initial comments: 56-year-old female presents emergency Department with chief complaint of cough congestion. Patient is started 8 days ago. Patient states on Wednesday she called her PCP who color and azithromycin. She states she finished that on Wednesday. She has continuation of increasing cough congestion history of asthma COPD. Patient states seems started more sinus congestion she feels increasing chest congestion, wheezing. No chest pain no reported fevers chills night sweats bodyaches. - Related Data Home Medications Medication Instructions Recorded Confirmed Ezetimibe [Zetia] 10 mg PO HS 09/05/14 11/05/21 Levothyroxine Sodium [Synthroid] 25 mcg PO DAILY 03/13/16 11/05/21 Omeprazole 40 mg PO BID 11/13/16 11/05/21 clonazePAM [KlonoPIN] 0.5 mg PO BID 05/03/17 11/05/21 Methylphenidate HCl 20 mg PO TID 09/09/18 11/05/21 busPIRone HCL 15 mg PO BID 02/05/19 11/05/21 Montelukast Sodium [Singulair] 10 mg PO HS 07/24/19 11/05/21 Atorvastatin Calcium [Lipitor] 10 mg PO HS 10/06/19 11/05/21 estradioL [Estrace] 0.5 mg PO DAILY 10/06/19 11/05/21 Cetirizine HCl 10 mg PO HS 07/17/20 11/05/21 Varenicline [Chantix Continuing 1 mg PO BID 05/20/21 11/05/21 Pack] Ferrous Sulfate [Feosol] 325 mg PO DAILY 08/08/21 11/05/21 Fluticasone/Vilanterol [Breo 1 puff INHALATION RT-DAILY 08/08/21 11/05/21 Ellipta 100-25 Mcg Inhaler] Naloxone HCl [Narcan] 4 mg NASAL ONCE PRN 08/08/21 11/05/21 Meclizine [Antivert] 25 mg PO TID PRN 08/11/21 11/05/21 Previous Rx's Medication Instructions Recorded Cyclobenzaprine [Flexeril] 10 mg PO TID PRN #15 tab 03/26/21 HYDROcodone/APAP 10-325MG [[place] 1 tab PO Q8HR PRN 30 Days #90 tab 12/31/21 10-325] HYDROcodone/APAP 10-325MG [[place] 1 tab PO Q8HR PRN 30 Days #90 tab 12/31/21 10-325] predniSONE 50 mg PO DAILY #5 tab 02/09/22 Allergies Allergy/AdvReac Type Severity Reaction Status Date / Time Penicillins Allergy Rash/Hives Verified 02/09/22 11:25 Review of Systems ROS Statement: Those systems with pertinent positive or pertinent negative responses have been documented in the HPI. ROS Other: All systems not noted in ROS Statement are negative. Past Medical History Past Medical History: Asthma, COPD, GERD/Reflux, Hyperlipidemia, Osteoarthritis (OA), Syncope, Thyroid Disorder Additional Past Medical History / Comment(s): kidney stones, hypoglycemia, chronic neck and L shoulder, lower back pain. Hx L facial and L ankle fxs, sinus problems, vertigo, falls in past due to syncope, low BP at times. 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 Rectocele repair. colonoscopy, d&c Past Anesthesia/Blood Transfusion Reactions: Previous Problems w/ Anesthesia Additional Past Anesthesia/Blood Transfusion Reaction / Comment(s): "Takes longer to wake up from anesthesia." Past Psychological History: ADD/ADHD, Anxiety, Depression Smoking Status: Former smoker Past Alcohol Use History: None Reported Past Drug Use History: None Reported - Past Family History Mother Family Medical History: Cancer Additional Family Medical History / Comment(s): lung Father Family Medical History: Asthma, COPD, Osteoarthritis (OA) Additional Family Medical History / Comment(s): Father at age 80 yrs. General Exam Limitations: no limitations General appearance: alert, in no apparent distress Head exam: Present: atraumatic, normocephalic, normal inspection Eye exam: Present: normal appearance, PERRL, EOMI. Absent: scleral icterus, conjunctival injection, periorbital swelling ENT exam: Present: normal exam, normal oropharynx, mucous membranes moist Neck exam: Present: normal inspection. Absent: tenderness, meningismus, lymphadenopathy Respiratory exam: Present: wheezes (Mild). Absent: normal lung sounds bilaterally, respiratory distress, rales, rhonchi, stridor Cardiovascular Exam: Present: normal rhythm, tachycardia, normal heart sounds. Absent: systolic murmur, diastolic murmur, rubs, gallop, clicks Course Vital Signs 02/09/22 11:21 Temperature 97.4 F L Pulse Rate 103 H Respiratory 20 Rate Blood Pressure 119/75 O2 Sat by Pulse 95 Oximetry Medical Decision Making - Medical Decision Making X-rays unremarkable., Negative influenza negative covid19. Patient we treated for mild asthma/COPD exacerbation patient discharged with prednisone and return parameters were discussed. - Lab Data Lab Results 02/09/22 02/09/22 Range/Units 11:49 11:49 Coronavirus (PCR) Not Detected (Not Detectd) Influenza Type A RNA Not Detected (Not Detectd) Influenza Type B (PCR) Not Detected (Not Detectd) Disposition Clinical Impression: COPD exacerbation, Bronchitis Disposition: HOME SELF-CARE Condition: Stable Instructions (If sedation given, give patient instructions): Upper Respiratory Infection (ED) Additional Instructions: Please return to the Emergency Department if symptoms worsen or any other concerns. Prescriptions: predniSONE 50 mg PO DAILY #5 tab Is patient prescribed a controlled substance at d/c from ED?: No Referrals: Ihsan Ding DO [Primary Care Provider] - 1-2 days Time of Disposition: 12:43
== END 2022-02-09 13:10 | disposition home or self-care (01) ==
LOC: EC 10:28
DX: J44.1 Chronic obstructive pulmonary disease with (acute) exacerbation (principal); J40 Bronchitis, not specified as acute or chronic; Z20.822 Contact with and (suspected) exposure to COVID-19; E78.5 Hyperlipidemia, unspecified; K21.9 Gastro-esophageal reflux disease without esophagitis; M19.90 Unspecified osteoarthritis, unspecified site; E07.9 Disorder of thyroid, unspecified; F32.A Depression, unspecified; F41.9 Anxiety disorder, unspecified; Z79.890 Hormone replacement therapy; Z79.899 Other long term (current) drug therapy; Z87.891 Personal history of nicotine dependence
CPT/HCPCS: 71046; 87502; 87635; 99285

== ENCOUNTER → 2022-02-25 | Outpatient (CLI) | payer MEDICARE, OTHER ==
[2022-02-25 14:16] VITALS: BP 83/60; PULSE 72; RESP 18; TEMP 98.6
--- NOTE | 2022-02-25 14:17 | P.PAINPG ---
Objective - Vital Signs Vital signs: Intake & Output 02/24/22 02/25/22 02/25/22 18:59 06:59 18:59 Weight 74.843 kg PQRS Measure Charge Sheet Comment: A 56 yr old female with a history of severe and chronic neck pain secondary to degenerative disc diseases and spondylosis with facet arthropathy presents today for evaluation s/p YASIR C6-C7 #2. She states she experienced 20% pain relief x 2-3 weeks s/p procedure. Pain level is currently at 4/10 in intensity, constant, achy in character in the neck and intermittent burning sensation in the LUE. Pain is provoked by movement and overhead reaching. Pain is alleviated with medications (ibuprofen, Tylenol), topicals, injections, heat, physical therapy and follow 2020 for 8 weeks, home-based exercise regimen, repositioning and rest. Interventional pain procedures completed include YASIR C6-C7 x2 Patient is currently on Ibuprofen, Tylenol. Patient denies any side effects of the medication(s), denies excessive drowsiness or sleepiness, denies suicidal ideation and reports that the current pain medication is helping to control the pain and improve activities of daily living. Patient denies any motor or sensory deficits. Patient denies any fever or night sweats, denies any change in the bowel movements or urination. Physical Examination: -Constitutional: Cooperative. Not in acute distress . - Neurologic: Cranial nerve II to XII intact. No focal neurological deficits. - Psychatric: Alert & oriented x 3. Matching mood & appropriate affect. Judgment and insight intact. - Musculoskeletal: Cervical spine: Muscle bulk/ tone/ strength in the bilateral upper extremities normal Vertebral body tenderness to palpation over C5, C6 Spurling test positive Distraction test positive Facet loading test positive Thoracic spine Muscle bulk / tone/ strength in the bilateral paraspinal muscles normal Vertebral body tender to palpation over Facet loading test positive Lumbar spine: Motor bulk/ tone/ strength lower extremities , thigh and legs : 5/5 Deep tendon reflexes : Normal Knee Jerk. Normal Ankle Jerk . Vertebral body tenderness to palpation over Lumbar Facet Loading Test positive Straight Leg Raise: positive at 30 degrees right side/ left side Gaenslen's Test positive Sacral spine : Severe tenderness over the Sacroiliac joint: right side / left side Range of motion: Flexion of the lumbar spine <60 degrees Range of motion: Extension of the lumbar spine <20 degrees Gaenslen's Test positive Raulito's Test positive Tim test: positive right side / left side Thigh Thrust Test Sacral Thrust Test Assessment and plan: Chronic low back pain secondary to lumbar degenerative disc disease , lumbar spondylosis with facet arthropathy without myelopathy Recommendation of YASIR C5-C6. May need a series, up to 3 within a 6 mo period, for optimal pain relief. Risks, benefits of procedure discussed and pt verbalized understanding. Denies anticoagulant use or medical history of diabetes. All patient questions answered I have spent less than 30 minutes on patient care today. Dr Castanon was available by phone for the evaluation of this patient. The time was used to review the medical records including relevant urine studies and Prescription history (MAPs), review of the available imaging, evaluation and examination of the patient, coordination of care with the medical staff and if applicable referring physicians, as well as creation of the medical record PQRS Narrative: Smoking Status Former smoker Narcotic Agreement Date Signed 10/09/20 Hx Alcohol Use (MH) No Home Medications: Ambulatory Orders Ezetimibe [Zetia] 10 mg PO HS 09/05/14 Levothyroxine Sodium [Synthroid] 25 mcg PO DAILY 03/13/16 Omeprazole 40 mg PO BID 11/13/16 clonazePAM [KlonoPIN] 0.5 mg PO HS 05/03/17 Methylphenidate HCl 20 mg PO TID 09/09/18 busPIRone HCL 15 mg PO BID 02/05/19 Atorvastatin Calcium [Lipitor] 10 mg PO HS 10/06/19 estradioL [Estrace] 0.5 mg PO DAILY 10/06/19 Cetirizine HCl 10 mg PO HS 07/17/20 Varenicline [Chantix Continuing Pack] 1 mg PO HS 05/20/21 Citalopram Hydrobromide [CeleXA] 40 mg PO DAILY 02/09/22 HYDROcodone/APAP 10-325MG [[place] 10-325] 1 tab PO TID 02/09/22 Varenicline [Chantix Starter Pack] 0.5 mg PO BID 02/09/22 predniSONE 50 mg PO DAILY #5 tab 02/09/22 tiZANidine HCL 6 mg PO HS 02/09/22 Controlled Substance Measures - Controlled Substance Measures Is patient prescribed a controlled substance at discharge?: No
--- NOTE | 2022-02-25 14:30 | P.PAINPG ---
Objective - Vital Signs Vital signs: Vital Signs Temp 98.6 F 02/25/22 14:06 Pulse 72 02/25/22 14:06 Resp 18 02/25/22 14:06 BP 83/60 02/25/22 14:06 Pulse Ox 97 02/25/22 14:06 FiO2 Intake & Output 02/24/22 02/25/22 02/25/22 18:59 06:59 18:59 Weight 74.843 kg PQRS Measure Charge Sheet Mode of Arrival: Ambulatory Comment: A 56 yr old a male with a history of severe and chronic low back pain secondary to lumbar degenerative disc diseases and lumbar spondylosis with facet arthropathy presents today for medication refills. Pain level is currently at 8 out of 10 in intensity, constant, numbing, tingling sensation in the lower aspects of her lumbar spine with radiation of pain down the right lower extremity. Pain is provoked with overactivity such as bending, twisting and lifting. Pain is alleviated with medications ( [place] 10/325#90, Tylenol), topicals, heat, laying supine, repositioning and rest. Patient is currently on [place] 10/325#90, Tylenol Patient denies any side effects of the medication(s), denies excessive drowsiness or sleepiness, denies suicidal ideation and reports that the current pain medication is helping to control the pain and improve activities of daily living. Patient denies any motor or sensory deficits. Patient denies any fever or night sweats, denies any change in the bowel movements or urination. Physical Examination: -Constitutional: Cooperative. Not in acute distress . - Neurologic: Cranial nerve II to XII intact. No focal neurological deficits. - Psychatric: Alert & oriented x 3. Matching mood & appropriate affect. Judgment and insight intact. - Musculoskeletal: Cervical spine: Muscle bulk/ tone/ strength in the bilateral upper extremities normal Vertebral body tenderness to palpation over Spurling test positive Distraction test positive Facet loading test positive Thoracic spine Muscle bulk / tone/ strength in the bilateral paraspinal muscles normal Vertebral body tender to palpation over Facet loading test positive Lumbar spine: Motor bulk/ tone/ strength lower extremities , thigh and legs : 5/5 Deep tendon reflexes : Normal Knee Jerk. Normal Ankle Jerk . Vertebral body tenderness to palpation over L4, L5 Lumbar Facet Loading Test positive Straight Leg Raise: positive at 30 degrees right side/ left side Gaenslen's Test positive Sacral spine : Severe tenderness over the Sacroiliac joint: right side / left side Range of motion: Flexion of the lumbar spine <60 degrees Range of motion: Extension of the lumbar spine <20 degrees Gaenslen's Test positive Raulito's Test positive Tim test: positive right side / left side Thigh Thrust Test Sacral Thrust Test Assessment and plan: Chronic low back pain secondary to lumbar degenerative disc disease , lumbar spondylosis with facet arthropathy without myelopathy Chronic and current use of high-risk medication (Opioids). The patient was counseled about risk of opioid use, psychological risk associated with opioids and was orally counseled to not overuse , divert or sell medications. Pt is to store medication in a safe location. The patient is counseled against driving while using narcotic medications and also not to use alcohol or any illicit recreational drugs. Patient verbalized understanding that the lack of compliance will result in failure to renew narcotic prescription(s) as well as possible discharge from the clinic Diagnoses, prognosis and treatment options including but not limited to physical therapy, surgical interventions, interventional therapies and medication management including narcotics and adjuvant medication were discussed. All patient questions answered MAPS reviewed and it was appropriate. Narcotic agreement updated today 02/25/22 Prescription refill for [place] 10/325 #90 w 1 refill I have spent less than 30 minutes on patient care today. Dr Castanon was available by phone for the evaluation of this patient. The time was used to review the medical records including relevant urine studies and Prescription history (MAPs), review of the available imaging, evaluation and examination of the patient, coordination of care with the medical staff and if applicable referring physicians, as well as creation of the medical record - Pain Location Bilateral Lower Back Non-Pharmacological Interventions: Heat, Inactivity Pharmacological Interventions: Epidural, PRN Medication, Scheduled Medication, Topical Medication PQRS Narrative: Smoking Status Former smoker Narcotic Agreement Date Signed 02/25/22 Blood Pressure 83/60 Pain Intensity [Bilateral 8 Lower Back] Scale Used Numeric (1 - 10) Hx Alcohol Use (MH) No Home Medications: Ambulatory Orders Ezetimibe [Zetia] 10 mg PO HS 09/05/14 Levothyroxine Sodium [Synthroid] 25 mcg PO DAILY 03/13/16 Omeprazole 40 mg PO BID 11/13/16 clonazePAM [KlonoPIN] 0.5 mg PO HS 05/03/17 Methylphenidate HCl 20 mg PO TID 09/09/18 busPIRone HCL 15 mg PO BID 02/05/19 Atorvastatin Calcium [Lipitor] 10 mg PO HS 10/06/19 estradioL [Estrace] 0.5 mg PO DAILY 10/06/19 Cetirizine HCl 10 mg PO HS 07/17/20 Varenicline [Chantix Continuing Pack] 1 mg PO HS 05/20/21 Citalopram Hydrobromide [CeleXA] 40 mg PO DAILY 02/09/22 HYDROcodone/APAP 10-325MG [[place] 10-325] 1 tab PO TID 02/09/22 Varenicline [Chantix Starter Pack] 0.5 mg PO BID 02/09/22 predniSONE 50 mg PO DAILY #5 tab 02/09/22 tiZANidine HCL 6 mg PO HS 02/09/22 Controlled Substance Measures - Controlled Substance Measures Is patient prescribed a controlled substance at discharge?: Yes When asked, does pt state using other controlled substances?: Yes If Rx opioid, was Start Talking consent form obtained?: Yes If opioid is for acute pain is fill amount 7 days or less?: Yes Was information provided regarding opioid addiction?: Yes
== END ==
LOC: PNWHC3 13:20
PROVIDERS: ATTEND Specialist
DX: M51.36 Other intervertebral disc degeneration, lumbar region (principal); M47.816 Spondylosis without myelopathy or radiculopathy, lumbar region; G89.29 Other chronic pain; Z79.891 Long term (current) use of opiate analgesic; Z87.891 Personal history of nicotine dependence; Z88.0 Allergy status to penicillin
CPT/HCPCS: 99211

== ENCOUNTER → 2022-03-18 | Outpatient (CLI) | payer MEDICARE, OTHER ==
--- NOTE | 2022-03-18 20:07 | XR ---
EXAMINATION TYPE: XR lumbar spine with bend/flex DATE OF EXAM: 03/18/2022 COMPARISON: 01/30/2019 HISTORY: Low back pain, surgery TECHNIQUE: 5 view lumbar spine supplemented with flexion and extension views in standing position FINDINGS: In the anterior flexion view vertebral body alignment is preserved. With extension no verte bral body alignment changes evident. There is loss of disc height L5-S1. Posterior disc space narrowing is present L4-5 and to a mild degr ee L3-4. Vertebral body heights are preserved. Fixation screws and rods are present L4-S1. Patient is across the right sacral iliac joint. Stimulator is within the field view no spondylolytic defects ar e identified. There is a persistent stable grade 1 spondylolisthesis of L5 slightly anterior on S1. IMPRESSION: 1. Stable vertebral body alignment through neutral flexion and extension views. 2. Degenerative disc changes lower lumbar spine discussed above.
== END | disposition home or self-care (01) ==
LOC: RADXRMAIN 11:55
PROVIDERS: ATTEND Neurological Surgery
DX: M47.816 Spondylosis without myelopathy or radiculopathy, lumbar region (principal); M43.16 Spondylolisthesis, lumbar region
CPT/HCPCS: 72114

== ENCOUNTER 2022-04-29 15:24 | Observation (INO) | payer MEDICARE, OTHER ==
[2022-04-29] MEDS ORDERED: KETOROLAC 15 MG/ML 1 ML VIAL IVP STA (17:03)
[2022-04-29] MEDS ORDERED: VANCOMYCIN 1,500 MG in SODIUM CHLORIDE 0.9% 250 ML IVPB STA (17:06)
[2022-04-29] MEDS ORDERED: methylPREDNISolone SOD SUCCI 125 MG/2 ML VIAL IM ONE (17:07)
[2022-04-29] MEDS ORDERED: VANCOMYCIN IV PER PHARMACY 1 EACH MISC MISCELLANE PRN (17:15)
[2022-04-29 17:45] LABS: Basophils # (A) 0.1 k/uL (0-0.2); Basophils % (A) 1 %; Eosinophils # (A) 0.3 k/uL (0-0.7); Eosinophils % (A) 2 %; HCT 36.4 % (34.0-46.0); Lymphocytes % (A) 25 %; MCH 29.4 pg (25.0-35.0); MCHC 32.9 g/dL (31.0-37.0); MCV 89.3 fL (80.0-100.0); Mean Platelet Volume 8.4; Monocytes # (A) 0.5 k/uL (0-1.0); Monocytes % (A) 4 %; Neutrophils % (A) 67 %; Platelet Count 268 k/uL (150-450); RBC 4.08 m/uL (3.80-5.40); RDW 13.6 % (11.5-15.5)
[2022-04-29] MEDS ORDERED: methylPREDNISolone SOD SUCCI 125 MG/2 ML VIAL IV STA (17:54)
[2022-04-29 17:57] LABS: ALT 16 U/L (4-34); AST 25 U/L (14-36); African American GFR (CKD) >90 (>60 ml/min/1.73 sqM); Albumin 4.3 g/dL (3.5-5.0); Alkaline Phosphatase 75 U/L (38-126); Anion Gap 11 mmol/L; Blood Urea Nitrogen 10 mg/dL (7-17); Carbon Dioxide 28 mmol/L (22-30); Chloride 99 mmol/L (98-107); Glucose 88 mg/dL (74-99); Non-African American GFR(CKD) >90 (>60 ml/min/1.73 sqM); Potassium 4.4 mmol/L (3.5-5.1); Sodium 138 mmol/L (137-145); Total Bilirubin 0.4 mg/dL (0.2-1.3); Total Protein 7.1 g/dL (6.3-8.2)
--- NOTE | 2022-04-29 18:13 | ED ---
Skin/Abscess/FB HPI - General Chief complaint: Skin/Abscess/Foreign Body Stated complaint: Spider Bite Time Seen by Provider: 04/29/22 16:16 Source: patient Mode of arrival: ambulatory Limitations: no limitations - History of Present Illness Initial comments: Patient is a 56-year-old female who presents to the emergency department with a chief complaint of left cheek pain. Patient woke up on Wednesday with pain and swelling of her cheek. Patient feels that she was bit by a spider. She was evaluated at the urgent care on Wednesday and was prescribed clindamycin. Patient states she has been taking the clindamycin as directed and has experienced incre ased pain, redness, and swelling of the cheek. Yesterday she saw her primary care provider who gave her an antibiotic shot. Patient reports worsening symptoms. States pain has radiated to her left jaw. Taking [place] for pain with some relief. Reports chills. States her primary care sent her in to be admitted for IV antibiotics. Denies pain with eye movement, tooth pain, and trouble breathing. - Related Data Home Medications Medication Instructions Recorded Confirmed Ezetimibe [Zetia] 10 mg PO HS 09/05/14 04/29/22 Levothyroxine Sodium [Synthroid] 25 mcg PO DAILY 03/13/16 04/29/22 Omeprazole 40 mg PO BID 11/13/16 04/29/22 clonazePAM [KlonoPIN] 0.5 mg PO HS 05/03/17 04/29/22 Methylphenidate HCl 20 mg PO TID 09/09/18 04/29/22 busPIRone HCL 15 mg PO BID 02/05/19 04/29/22 Atorvastatin Calcium [Lipitor] 10 mg PO HS 10/06/19 04/29/22 estradioL [Estrace] 0.5 mg PO DAILY 10/06/19 04/29/22 Citalopram Hydrobromide [CeleXA] 40 mg PO DAILY 02/09/22 04/29/22 tiZANidine HCL 6 mg PO HS 02/09/22 04/29/22 HYDROcodone/APAP 10-325MG [[place] 1 tab PO TID 04/29/22 04/29/22 10-325] Mupirocin 2% Oint [Bactroban 2% 1 applic TOPICAL BID 04/29/22 04/29/22 Oint] Varenicline [Chantix Starter Pack] 0.5 mg PO BID 04/29/22 04/29/22 Allergies Allergy/AdvReac Type Severity Reaction Status Date / Time Penicillins Allergy Unknown Verified 04/29/22 19:01 Childhood Review of Systems ROS Statement: Those systems with pertinent positive or pertinent negative responses have been documented in the HPI. ROS Other: All systems not noted in ROS Statement are negative. Past Medical History Past Medical History: Asthma, COPD, GERD/Reflux, Hyperlipidemia, Osteoarthritis (OA), Syncope, Thyroid Disorder Additional Past Medical History / Comment(s): kidney stones, hypoglycemia, chronic neck and L shoulder, lower back pain. Hx L facial and L ankle fxs, sinus problems, vertigo, falls in past due to syncope, low BP at times. 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 Rectocele repair. colonoscopy, d&c Past Anesthesia/Blood Transfusion Reactions: Previous Problems w/ Anesthesia Additional Past Anesthesia/Blood Transfusion Reaction / Comment(s): "Takes longer to wake up from anesthesia." Past Psychological History: ADD/ADHD, Anxiety, Depression Smoking Status: Current every day smoker - Past Family History Mother Family Medical History: Cancer Additional Family Medical History / Comment(s): lung Father Family Medical History: Asthma, COPD, Osteoarthritis (OA) Additional Family Medical History / Comment(s): Father at age 80 yrs. General Exam Limitations: no limitations General appearance: alert, in no apparent distress Head exam: Present: other (erythema, warmth, swelling of left cheek. minimal fluctuance. no mastoid tenderness ). Absent: normal inspection Eye exam: Present: normal appearance, PERRL, EOMI. Absent: scleral icterus, conjunctival injection, periorbital swelling, periorbital tenderness ENT exam: Present: normal oropharynx Neck exam: Present: normal inspection. Absent: tenderness Respiratory exam: Present: normal lung sounds bilaterally. Absent: respiratory distress, wheezes, rales, rhonchi, stridor Cardiovascular Exam: Present: regular rate, normal rhythm, normal heart sounds. Absent: systolic murmur, diastolic murmur, rubs, gallop, clicks Neurological exam: Present: alert, oriented X3, CN II-XII intact Psychiatric exam: Present: normal affect, normal mood Skin exam: Present: warm, dry, intact, normal color. Absent: rash Course Vital Signs 04/29/22 04/29/22 15:31 19:01 Temperature 98.5 F Pulse Rate 72 56 L Respiratory 20 18 Rate Blood Pressure 98/60 93/60 O2 Sat by Pulse 96 96 Oximetry Medical Decision Making - Medical Decision Making This is a 56-year-old female who presents with cellulitis of the left cheek. Patient in no apparent distress. Afebrile. Erythema, warmth, and swelling of left cheek with minimal fluctuance. No mastoid tenderness. No pain with EOMs. Vancoymycin initiated. Laboratory studies obtained. There is mild leukocytosis at 12.0. Results discussed with patient who does not feel comfortable going home on a different antibiotic. Case discussed with Dr. Ding who accepts admission. Dr. Ruiz is my attending. - Lab Data Result diagrams: 04/29/22 17:11 04/29/22 17:11 Lab Results 04/29/22 04/29/22 Range/Units 17:11 17:11 WBC 12.0 H (3.8-10.6) k/uL RBC 4.08 (3.80-5.40) m/uL Hgb 12.0 (11.4-16.0) gm/dL Hct 36.4 (34.0-46.0) % MCV 89.3 (80.0-100.0) fL MCH 29.4 (25.0-35.0) pg MCHC 32.9 (31.0-37.0) g/dL RDW 13.6 (11.5-15.5) % Plt Count 268 (150-450) k/uL MPV 8.4 Neutrophils % 67 % Lymphocytes % 25 % Monocytes % 4 % Eosinophils % 2 % Basophils % 1 % Neutrophils # 8.0 H (1.3-7.7) k/uL Lymphocytes # 3.0 (1.0-4.8) k/uL Monocytes # 0.5 (0-1.0) k/uL Eosinophils # 0.3 (0-0.7) k/uL Basophils # 0.1 (0-0.2) k/uL Sodium 138 (137-145) mmol/L Potassium 4.4 (3.5-5.1) mmol/L Chloride 99 (98-107) mmol/L Carbon Dioxide 28 (22-30) mmol/L Anion Gap 11 mmol/L BUN 10 (7-17) mg/dL Creatinine 0.70 (0.52-1.04) mg/dL Est GFR (CKD-EPI)AfAm >90 (>60 ml/min/1.73 sqM) Est GFR (CKD-EPI)NonAf >90 (>60 ml/min/1.73 sqM) Glucose 88 (74-99) mg/dL Calcium 9.0 (8.4-10.2) mg/dL Total Bilirubin 0.4 (0.2-1.3) mg/dL AST 25 (14-36) U/L ALT 16 (4-34) U/L Alkaline Phosphatase 75 (38-126) U/L Total Protein 7.1 (6.3-8.2) g/dL Albumin 4.3 (3.5-5.0) g/dL Disposition Clinical Impression: Cellulitis of left external cheek, Leukocytosis, Chills (without fever) Disposition: ADMITTED IP TO THIS HOSP Condition: Good Referrals: Ihsan Ding DO [Primary Care Provider] - 1-2 days
[2022-04-29] MEDS ORDERED: SODIUM CHLORIDE 0.9% 1,000 ML IV STA (18:14)
[2022-04-29] MEDS ORDERED: fentaNYL (PF) 50 MCG/ML 2 ML AMP IVP STA (19:17)
[2022-04-29] MEDS ORDERED: NALOXONE 0.4 MG/ML 1 ML VIAL IV PRN (20:18)
[2022-04-29] MEDS: SODIUM CHLORIDE 0.9% 1,000 ML IV SCH (22:24)
[2022-04-29] MEDS: ATORVASTATIN 10 MG TAB PO SCH (23:01)
[2022-04-29] MEDS: HYDROcodone/APAP 10-325MG 1 EACH TAB PO PRN (23:01)
[2022-04-29] MEDS: clonazePAM 0.5 MG TAB PO SCH (23:01)
[2022-04-29] MEDS: CITALOPRAM HYDROBROMIDE 20 MG TAB PO SCH (23:02)
[2022-04-29] MEDS: VARENICLINE 0.5 MG TAB PO SCH (23:03)
[2022-04-29] MEDS: tiZANidine 4 MG TAB PO SCH (23:03)
[2022-04-30] MEDS: PANTOPRAZOLE 40 MG TABLET PO SCH ×3 (00:13→15:00)
[2022-04-30] MEDS: EZETIMIBE 10 MG TAB PO SCH ×2 (00:13→21:32)
[2022-04-30] MEDS: busPIRone HCl 5 MG TAB PO SCH ×3 (00:13→21:32)
[2022-04-30] MEDS: LEVOTHYROXINE 25 MCG TAB PO SCH (06:05)
[2022-04-30] MEDS: VANCOMYCIN 1,500 MG in SODIUM CHLORIDE 0.9% 250 ML IVPB SCH ×2 (06:05→17:12)
[2022-04-30] MEDS: HYDROcodone/APAP 10-325MG 1 EACH TAB PO PRN ×3 (06:05→16:03)
[2022-04-30] MEDS: METHYLPHENIDATE HCL 10 MG TAB PO SCH ×3 (08:01→21:39)
[2022-04-30] MEDS: VARENICLINE 0.5 MG TAB PO SCH ×2 (08:01→21:32)
[2022-04-30] MEDS: CITALOPRAM HYDROBROMIDE 20 MG TAB PO SCH (08:01)
[2022-04-30] MEDS: SODIUM CHLORIDE 0.9% 1,000 ML IV SCH (08:02)
[2022-04-30 09:08] LABS: African American GFR (CKD) 117.3 (60.0-200.0); Non-African American GFR(CKD) 101.2 (60.0-200.0)
--- NOTE | 2022-04-30 12:06 | P.HPIM ---
History of Present Illness H&P Date: 04/30/22 Chief Complaint: Left cheek cellulitis/abscess This is a 56-year-old female with past medical history of chronic intermittent asthma, COPD, gastroesophageal reflux disease, hyperlipidemia, hypothyroidism, osteoarthritis, ADD/ADHD, anxiety, depression, former nicotine dependence presented to the ER with worsening left cheek cellulitis. Patient initially had presented to urgent care last Wednesday due to left cheek edema, suspected spider bite and placed on clindamycin. 2 days later followed up with PCP, received IM Rocephin. Left cheek cellulitis continued worsening, radiating to the left jaw, increased pain with chills and proceeded to the ER. Denies visual pain or d eficits. Denies teeth/mandible/mastoid tenderness or pain. Denies chest pain, palpitations or shortness of breath. Denies lightheadedness dizziness or focal deficits. Afebrile, WBC 12, renal function stable. Blood cultures obtained, placed on vancomycin IV. Infectious disease consulted. Review of Systems Constitutional: Denied any fever. Positive chills Cardio vascular: denied any chest pain, palpitations Gastrointestinal: Denies nausea vomiting or diarrhea Pulmonary: Denied any shortness of breath cough Neurologic denied any new focal deficits ROS Statement: Those systems with pertinent positive or pertinent negative responses have been documented in the HPI. ROS Other: All systems not noted in ROS Statement are negative. Past Medical History Past Medical History: Asthma, COPD, GERD/Reflux, Hyperlipidemia, Osteoarthritis (OA), Syncope, Thyroid Disorder Additional Past Medical History / Comment(s): kidney stones, hypoglycemia, chronic neck and L shoulder, lower back pain. Hx L facial and L ankle fxs, sinus problems, vertigo, falls in past due to syncope, low BP at times. 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 Rectocele repair. colonoscopy, d&c Past Anesthesia/Blood Transfusion Reactions: Previous Problems w/ Anesthesia Additional Past Anesthesia/Blood Transfusion Reaction / Comment(s): "Takes longer to wake up from anesthesia." Past Psychological History: ADD/ADHD, Anxiety, Depression Additional Psychological History / Comment(s): Patient states she has a mood disorder. Smoking Status: Current every day smoker Past Alcohol Use History: None Reported Additional Past Alcohol Use History / Comment(s): SMOKED ON/OFF SINCE 12 YEARS OLD, smoked 1/2 PPD. QUIT 2017 Past Drug Use History: None Reported Additional Drug Use History / Comment(s): Past marijuana last use about 8 years ago. 2012 - Past Family History Mother Family Medical History: Cancer Additional Family Medical History / Comment(s): lung Father Family Medical History: Asthma, COPD, Osteoarthritis (OA) Additional Family Medical History / Comment(s): Father at age 80 yrs. Medications and Allergies Home Medications Medication Instructions Recorded Confirmed Type Ezetimibe [Zetia] 10 mg PO HS 09/05/14 04/29/22 History Levothyroxine Sodium [Synthroid] 25 mcg PO DAILY 03/13/16 04/29/22 History Omeprazole 40 mg PO BID 11/13/16 04/29/22 History clonazePAM [KlonoPIN] 0.5 mg PO HS 05/03/17 04/29/22 History Methylphenidate HCl 20 mg PO TID 09/09/18 04/29/22 History busPIRone HCL 15 mg PO BID 02/05/19 04/29/22 History Atorvastatin Calcium [Lipitor] 10 mg PO HS 10/06/19 04/29/22 History estradioL [Estrace] 0.5 mg PO DAILY 10/06/19 04/29/22 History Citalopram Hydrobromide [CeleXA] 40 mg PO DAILY 02/09/22 04/29/22 History tiZANidine HCL 6 mg PO HS 02/09/22 04/29/22 History HYDROcodone/APAP 10-325MG [[place] 1 tab PO TID 04/29/22 04/29/22 History 10-325] Mupirocin 2% Oint [Bactroban 2% 1 applic TOPICAL BID 04/29/22 04/29/22 History Oint] Varenicline [Chantix Starter Pack] 0.5 mg PO BID 04/29/22 04/29/22 History Allergies Allergy/AdvReac Type Severity Reaction Status Date / Time Penicillins Allergy Unknown Verified 04/29/22 19:01 Childhood Physical Exam Vitals: Vital Signs Temp Pulse Pulse Resp BP BP Pulse Ox 04/30/22 07:00 97.6 F 60 18 92/52 96 04/30/22 01:53 98.4 F 59 L 16 91/56 96 04/29/22 22:09 98.0 F 60 18 124/68 97 04/29/22 21:51 61 18 98/61 96 04/29/22 19:01 56 L 18 93/60 96 04/29/22 15:31 98.5 F 72 20 98/60 96 Intake and Output 04/29/22 04/30/22 04/30/22 22:59 06:59 14:59 Intake Total 500 Balance 500 Intake: Oral 500 Other: Voiding Method Toilet Toilet # Voids 1 Weight 74.389 kg PHYSICAL EXAM: VITAL SIGNS: As above GENERAL: Sitting up in bed, no acute distress HEENT: Conjunctivae normal. eyes normal. Left cheek edematous with induration NECK: No JVD. No thyroid enlargement. No LNs CARDIOVASCULAR: S1, S2 regular.. No murmur RESPIRATION: Breath sounds diminished in the bases. No rhonchi or crackles. No bronchial breathing. ABDOMEN: Soft, nontender, nondistended ,No guarding. Bowel sounds heard. LEGS: No edema. no swelling PSYCHIATRY: Alert and oriented X3, mood and affect normal. NERVOUS SYSTEM: Cranial N 2-12 grossly normal. No focal deficits. Strength and sensation grossly intact. Skin: no rash, warm and dry Results CBC & Chem 7: 04/29/22 17:11 04/30/22 05:39 Labs: Abnormal Lab Results - Last 24 Hours (Table) 04/29/22 Range/Units 17:11 WBC 12.0 H (3.8-10.6) k/uL Neutrophils # 8.0 H (1.3-7.7) k/uL Assessment and Plan Assessment: Left cheek cellulitis, abscess secondary to possible spider bite Chronic intermittent asthma, stable History of IBS COPD, stable Anxiety Depression Plan: Continue on current medication regime ,monitoring and symptomatic treatment. Blood cultures in progress. Maintain IV antibiotics of vancomycin, close monitoring of renal function with repeat labs ordered. Infectious disease consulted. Pain management. Discharge planning in progress, with 24-48 hours. The impression and plan of care has been dictated as directed. : I performed a history and examination of this patient, discussed the same with the dictator. I agree with the dictator's note ,documented as a scribe. Any additional findings or plans will be noted.
[2022-04-30] MEDS: ATORVASTATIN 10 MG TAB PO SCH (21:33)
[2022-04-30] MEDS: tiZANidine 4 MG TAB PO SCH (21:33)
[2022-04-30] MEDS: clonazePAM 0.5 MG TAB PO SCH (21:38)
--- NOTE | 2022-04-30 23:24 | P.CONS ---
History of Present Illness - Reason for Consult Consult date: 04/30/22 - History of Present Illness Patient is a 56-year-old female presenting to the ER last evening for evaluation of left cheek pain swelling and redness patient mention she woke up on Wednesday morning with the pain and swelling of her left cheek area that apparently started getting worse patient did went to the urgent care on Wednesday and was prescribed clindamycin however despite taking the clindamycin the patient noticed to have increasing swelling pain and redness of the left cheek area patient describing the pain to be more of a sharp intensity is almost 10 out of 10 with no radiation with associated swelling redness however no drainage patient was sent to the ER for IV antibiotic therapy on presentation to the hospital the patient was afebrile and no fever have been recorded subsequently patient did have white count of 12,000 with a left shift kidney function has been normal blood cultures obtained which are currently pending patient was started on vancomycin has been admitted to hospital infectious disease was consulted for further management of antibiotic therapy Past Medical History Past Medical History: Asthma, COPD, GERD/Reflux, Hyperlipidemia, Osteoarthritis (OA), Syncope, Thyroid Disorder Additional Past Medical History / Comment(s): kidney stones, hypoglycemia, chronic neck and L shoulder, lower back pain. Hx L facial and L ankle fxs, sinus problems, vertigo, falls in past due to syncope, low BP at times. Fusion of sacrum and iliac crest-per . 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 Rectocele repair. colonoscopy, d&c Past Anesthesia/Blood Transfusion Reactions: Previous Problems w/ Anesthesia Additional Past Anesthesia/Blood Transfusion Reaction / Comm: "Takes longer to wake up from anesthesia." Past Psychological History: ADD/ADHD, Anxiety, Depression Additional Psychological History / Comment(s): Patient states she has a mood disorder. Smoking Status: Current every day smoker Past Alcohol Use History: None Reported Additional Past Alcohol Use History / Comment(s): SMOKED ON/OFF SINCE 12 YEARS OLD, smoked 1/2 PPD. QUIT 2017 Past Drug Use History: None Reported Additional Drug Use History / Comment(s): Past marijuana last use about 8 years ago. 2012 - Past Family History Mother Family Medical History: Cancer Additional Family Medical History / Comment(s): lung Father Family Medical History: Asthma, COPD, Osteoarthritis (OA) Additional Family Medical History / Comment(s): Father at age 80 yrs. Medications and Allergies Home Medications Medication Instructions Recorded Confirmed Type Ezetimibe [Zetia] 10 mg PO HS 09/05/14 04/29/22 History Levothyroxine Sodium [Synthroid] 25 mcg PO DAILY 03/13/16 04/29/22 History Omeprazole 40 mg PO BID 11/13/16 04/29/22 History clonazePAM [KlonoPIN] 0.5 mg PO HS 05/03/17 04/29/22 History Methylphenidate HCl 20 mg PO TID 09/09/18 04/29/22 History busPIRone HCL 15 mg PO BID 02/05/19 04/29/22 History Atorvastatin Calcium [Lipitor] 10 mg PO HS 10/06/19 04/29/22 History estradioL [Estrace] 0.5 mg PO DAILY 10/06/19 04/29/22 History Citalopram Hydrobromide [CeleXA] 40 mg PO DAILY 02/09/22 04/29/22 History tiZANidine HCL 6 mg PO HS 02/09/22 04/29/22 History HYDROcodone/APAP 10-325MG [[place] 1 tab PO TID 04/29/22 04/29/22 History 10-325] Mupirocin 2% Oint [Bactroban 2% 1 applic TOPICAL BID 04/29/22 04/29/22 History Oint] Varenicline [Chantix Starter Pack] 0.5 mg PO BID 04/29/22 04/29/22 History Allergies Allergy/AdvReac Type Severity Reaction Status Date / Time Penicillins Allergy Unknown Verified 04/29/22 19:01 Childhood Physical Exam Vitals: Vital Signs Temp Pulse Pulse Resp BP BP Pulse Ox 04/30/22 07:00 97.6 F 60 18 92/52 96 04/30/22 01:53 98.4 F 59 L 16 91/56 96 04/29/22 22:09 98.0 F 60 18 124/68 97 04/29/22 21:51 61 18 98/61 96 04/29/22 19:01 56 L 18 93/60 96 04/29/22 15:31 98.5 F 72 20 98/60 96 Intake and Output 04/29/22 04/30/22 04/30/22 22:59 06:59 14:59 Intake Total 500 240 Balance 500 240 Intake: Oral 500 240 Other: Voiding Method Toilet Toilet # Voids 1 Weight 74.389 kg Results CBC & Chem 7: 04/29/22 17:11 04/30/22 05:39 Labs: Abnormal Lab Results - Last 24 Hours (Table) 04/29/22 Range/Units 17:11 WBC 12.0 H (3.8-10.6) k/uL Neutrophils # 8.0 H (1.3-7.7) k/uL Assessment and Plan Plan: 1patient with a left facial cellulitis failing outpatient oral clindamycin therapy high clinic suspicious for community associated MRSA 2-we will obtain cultures if the area started to drain 3-vancomycin pharmacy to dose target trough of 15 while watching kidney functi on and vancomycin trough closely We will follow on clinical condition and cultures to further adjust medication if needed Thank you for this consultation will follow this patient along with you Time with Patient: Greater than 30
[2022-05-01] MEDS: HYDROcodone/APAP 10-325MG 1 EACH TAB PO PRN ×4 (00:17→21:48)
[2022-05-01] MEDS: SODIUM CHLORIDE 0.9% 1,000 ML IV SCH ×2 (00:18→14:11)
[2022-05-01] MEDS ORDERED: VANCOMYCIN TROUGH DUE 1 EACH MISC MISCELLANE ONE (05:00)
[2022-05-01] MEDS: LEVOTHYROXINE 25 MCG TAB PO SCH (05:22)
[2022-05-01] MEDS: VANCOMYCIN 1,500 MG in SODIUM CHLORIDE 0.9% 250 ML IVPB SCH (07:27)
[2022-05-01] MEDS: CITALOPRAM HYDROBROMIDE 20 MG TAB PO SCH (07:31)
[2022-05-01] MEDS: busPIRone HCl 5 MG TAB PO SCH ×2 (07:31→21:00)
[2022-05-01] MEDS: PANTOPRAZOLE 40 MG TABLET PO SCH ×2 (07:31→17:34)
[2022-05-01] MEDS: VARENICLINE 0.5 MG TAB PO SCH ×2 (08:05→21:02)
[2022-05-01] MEDS: METHYLPHENIDATE HCL 10 MG TAB PO SCH ×3 (08:05→21:48)
[2022-05-01 09:28] LABS: African American GFR (CKD) 94.9 (60.0-200.0); Non-African American GFR(CKD) 81.8 (60.0-200.0)
--- NOTE | 2022-05-01 15:32 | P.PN ---
Subjective Progress Note Date: 05/01/22 04/30/22 Chief Complaint: Left cheek cellulitis/abscess This is a 56-year-old female with past medical history of chronic intermittent asthma, COPD, gastroesophageal reflux disease, hyperlipidemia, hypothyroidism, osteoarthritis, ADD/ADHD, anxiety, depression, former nicotine dependence presented to the ER with worsening left cheek cellulitis. Patient initially had presented to urgent care last Wednesday due to left cheek edema, suspected spider bite and placed on clindamycin. 2 days later followed up with PCP, received IM Rocephin. Left cheek cellulitis continued worsening, radiating to the left jaw, increased pain with chills and proceeded to the ER. Denies visual pain or deficits. Denies teeth/mandible/mastoid tenderness or pain. Denies chest pain, palpitations or shortness of breath. Denies lightheadedness dizziness or focal deficits. Afebrile, WBC 12, renal function stable. Blood cultures obtained, placed on vancomycin IV. Infectious disease consulted. 05/01/2022 evaluated by infectious disease, continues on vancomycin IV with significant clinical improvement. Decreased pain and edema. Creatinine stable 0.8. Afebrile. Preliminary blood cultures reporting no growth. Wound culture of left cheek not collected as it is not draining. Denies chest pain, palpitations or shortness of breath. Objective - Vital Signs Vital signs: Vital Signs Temp 98.1 F 05/01/22 07:00 Pulse 57 L 05/01/22 07:00 Resp 18 05/01/22 08:00 BP 100/54 05/01/22 07:00 Pulse Ox 95 05/01/22 07:00 FiO2 Intake & Output 04/30/22 05/01/22 05/01/22 18:59 06:59 18:59 Intake Total 480 1000 368 Balance 480 1000 368 Intake: Intake, IV Titration 500 Amount Vancomycin 1,500 mg In 500 Sodium Chloride 0.9% 250 ml @ 125 mls/hr IVPB Q12H [facility] Rx#:[id number] Oral 480 500 368 Other: Voiding Method Toilet Toilet # Voids 2 - Exam PHYSICAL EXAM: VITAL SIGNS: As above GENERAL: Alert and oriented 3, Sitting up in bed, no acute distress HEENT: Conjunctivae normal. eyes normal. Left cheek less edematous with decreased induration NECK: Supple, No JVD. CARDIOVASCULAR: S1, S2 regular. No murmur RESPIRATION: Unlabored, Breath sounds diminished in the bases. No rhonchi or crackles. ABDOMEN: Soft, nontender, nondistended ,No guarding. Bowel sounds heard. LEGS: No edema. no swelling NERVOUS SYSTEM: Cranial N 2-12 grossly normal. No focal deficits. Strength and sensation grossly intact. Skin: no rash, warm and dry - Labs CBC & Chem 7: 04/29/22 17:11 05/01/22 04:57 Labs: Microbiology - Last 24 Hours (Table) 04/29/22 17:30 Blood Culture - Preliminary Blood No Growth after 24 hours 04/29/22 17:15 Blood Culture - Preliminary Blood No Growth after 24 hours Assessment and Plan Assessment: Left cheek cellulitis, abscess secondary to possible spider bite, failed outpatient clindamycin Chronic intermittent asthma, stable History of IBS COPD, stable Anxiety Depression Plan: Continue on current medication regime ,monitoring and symptomatic treatment. Blood cultures in progress. Continue IV vancomycin as per infectious disease. close monitoring of renal function with repeat labs ordered for a.m. Discharge planning in progress possibly for tomorrow. The impression and plan of care has been dictated as directed. : I performed a history and examination of this patient, discussed the same with the dictator. I agree with the dictator's note ,documented as a scribe. Any additional findings or plans will be noted.
[2022-05-01] MEDS: VANCOMYCIN 1,250 MG in SODIUM CHLORIDE 0.9% 250 ML IVPB SCH (19:19)
[2022-05-01] MEDS: tiZANidine 4 MG TAB PO SCH (21:01)
[2022-05-01] MEDS: ATORVASTATIN 10 MG TAB PO SCH (21:02)
[2022-05-01] MEDS: EZETIMIBE 10 MG TAB PO SCH (21:02)
[2022-05-01] MEDS: clonazePAM 0.5 MG TAB PO SCH (21:05)
[2022-05-02] MEDS: LEVOTHYROXINE 25 MCG TAB PO SCH (05:09)
[2022-05-02] MEDS: SODIUM CHLORIDE 0.9% 1,000 ML IV SCH ×3 (05:09→16:21)
[2022-05-02] MEDS: HYDROcodone/APAP 10-325MG 1 EACH TAB PO PRN ×3 (05:11→21:18)
[2022-05-02] MEDS: VANCOMYCIN 1,250 MG in SODIUM CHLORIDE 0.9% 250 ML IVPB SCH ×2 (07:08→20:10)
[2022-05-02] MEDS: METHYLPHENIDATE HCL 10 MG TAB PO SCH ×3 (08:10→20:09)
[2022-05-02] MEDS: PANTOPRAZOLE 40 MG TABLET PO SCH ×2 (08:10→17:39)
[2022-05-02] MEDS: busPIRone HCl 5 MG TAB PO SCH ×2 (08:10→20:11)
[2022-05-02] MEDS: VARENICLINE 0.5 MG TAB PO SCH ×2 (08:10→20:10)
[2022-05-02] MEDS: CITALOPRAM HYDROBROMIDE 20 MG TAB PO SCH (08:10)
[2022-05-02 08:53] LABS: Basophils # (A) 0.05 X 10*3/uL (0.00-0.10); Basophils % (A) 0.5 %; Eosinophils # (A) 0.19 X 10*3/uL (0.04-0.35); Eosinophils % (A) 1.9 %; HCT 32.8 % (37.2-46.3); HGB 10.9 g/dL (12.0-15.0); Immature Grans, Automated 0.3 %; Lymphocytes % (A) 39.2 %; MCH 29.2 pg (27.0-32.0); MCHC 33.2 g/dL (32.0-37.0); MCV 87.9 fL (80.0-97.0); Mean Platelet Volume 10.9 fL (9.5-12.2); Monocytes # (A) 0.69 X 10*3/uL (0.20-1.00); Monocytes % (A) 6.9 %; NRBC Per 100 WBC 0 /100 WBCS (0.0-0.0); Neutrophils % (A) 51.2 %; Platelet Count 270 X 10*3/uL (140-440); RBC 3.73 X 10*6/uL (4.10-5.20); RDW 14.5 % (11.5-14.5); WBC 9.96 X 10*3/uL (4.50-10.00)
[2022-05-02 08:59] LABS: African American GFR (CKD) 94.9 (60.0-200.0); Anion Gap 9.6 mmol/L (10.00-18.00); BUN/Creat Ratio 13.88 Ratio (12.00-20.00); Blood Urea Nitrogen 11.1 mg/dL (9.0-27.0); Calcium 8.9 mg/dL (8.7-10.3); Carbon Dioxide 29.4 mmol/L (20.0-27.5); Non-African American GFR(CKD) 81.8 (60.0-200.0); Potassium 4.1 mmol/L (3.5-5.5)
[2022-05-02] MEDS ORDERED: polyethylene glycoL 3350 17 GM POWD.PACK PO STA (14:18)
[2022-05-02] MEDS: clonazePAM 0.5 MG TAB PO SCH (20:10)
[2022-05-02] MEDS: tiZANidine 4 MG TAB PO SCH (20:10)
[2022-05-02] MEDS: ATORVASTATIN 10 MG TAB PO SCH (20:11)
[2022-05-02] MEDS: EZETIMIBE 10 MG TAB PO SCH (21:19)
--- NOTE | 2022-05-03 00:59 | P.PN ---
Subjective Progress Note Date: 05/01/22 Principal diagnosis: Left cheek cellulitis/abscess Patient is a 56-year-old female presenting to the hospital with left cheek pain swelling and redness concerning for left cheek cellulitis/abscess. On today's evaluation that is 05/01/2022, the patient denies having any fever or any chills, the patient left cheek swelling and redness is slightly decreased patient denies having any chest pain or shortness of breath or cough no abdominal pain no diarrhea Objective - Vital Signs Vital signs: Vital Signs Temp 98.1 F 05/01/22 07:00 Pulse 57 L 05/01/22 07:00 Resp 18 05/01/22 08:00 BP 100/54 05/01/22 07:00 Pulse Ox 95 05/01/22 07:00 FiO2 Intake & Output 04/30/22 05/01/22 05/01/22 18:59 06:59 18:59 Intake Total 480 1000 250 Balance 480 1000 250 Intake: Intake, IV Titration 500 Amount Vancomycin 1,500 mg In 500 Sodium Chloride 0.9% 250 ml @ 125 mls/hr IVPB Q12H [facility] Rx#:[id number] Oral 480 500 250 Other: Voiding Method Toilet Toilet # Voids 2 - Exam GENERAL DESCRIPTION: Middle-age female lying in bed in no distress HEENT : Left cheek area of induration has slightly decreased redness has decreased no drainage RESPIRATORY SYSTEM: Unlabored breathing , decreased breath sounds at bases HEART: S1 S2 regular rate and rhythm , ABDOMEN: Soft , no tenderness EXTREMITIES: No edema feet - Labs CBC & Chem 7: 05/02/22 04:59 05/02/22 04:59 Labs: Microbiology - Last 24 Hours (Table) 04/29/22 17:30 Blood Culture - Preliminary Blood No Growth after 24 hours 04/29/22 17:15 Blood Culture - Preliminary Blood No Growth after 24 hours Assessment and Plan (1) Cellulitis of left external cheek Current Visit: Yes Status: Acute Code(s): L03.211 - CELLULITIS OF FACE SNOMED Code(s): 76820110 Plan: 1patient with a left facial cellulitis failing outpatient oral clindamycin therapy high clinic suspicious for community associated MRSA 2-we will obtain cultures if the area started to drain, RN has been told to apply warm compresses to the area 3-patient to continue vancomycin pharmacy to dose target trough of 15 while watching kidney function and vancomycin trough closely Time with Patient: Less than 30
--- NOTE | 2022-05-03 01:00 | P.PN ---
Subjective Progress Note Date: 05/02/22 Principal diagnosis: Left cheek cellulitis/abscess Patient is a 56-year-old female presenting to the hospital with left cheek pain swelling and redness concerning for left cheek cellulitis/abscess. On today's evaluation that is 05/02/2022, the patient remains to be afebrile, the patient left cheek swelling and redness has slightly decreased in intensity however the patient did not have any drainage, patient denies having any chest pain or shortness of breath or cough no abdominal pain no diarrhea Objective - Vital Signs Vital signs: Vital Signs Temp 98.2 F 05/02/22 13:30 Pulse 65 05/02/22 13:30 Resp 14 05/02/22 13:30 BP 127/66 05/02/22 13:30 Pulse Ox 96 05/02/22 13:30 FiO2 Intake & Output 05/01/22 05/02/22 05/02/22 18:59 06:59 18:59 Intake Total 368 358 Balance 368 358 Intake: Oral 368 358 Other: Voiding Method Toilet Toilet # Voids 3 2 2 - Exam GENERAL DESCRIPTION: Middle-age female lying in bed in no distress HEENT : Left cheek area of induration has slightly decreased redness has decreased no drainage RESPIRATORY SYSTEM: Unlabored breathing , decreased breath sounds at bases HEART: S1 S2 regular rate and rhythm , ABDOMEN: Soft , no tenderness EXTREMITIES: No edema feet - Labs CBC & Chem 7: 05/02/22 04:59 05/02/22 04:59 Labs: Abnormal Lab Results - Last 24 Hours (Table) 05/02/22 05/02/22 Range/Units 04:59 04:59 RBC 3.73 L (4.10-5.20) X 10*6/uL Hgb 10.9 L (12.0-15.0) g/dL Hct 32.8 L (37.2-46.3) % Carbon Dioxide 29.4 H (20.0-27.5) mmol/L Anion Gap 9.60 L (10.00-18.00) mmol/L Microbiology - Last 24 Hours (Table) 04/29/22 17:30 Blood Culture - Preliminary Blood No Growth after 48 hours 04/29/22 17:15 Blood Culture - Preliminary Blood No Growth after 48 hours Assessment and Plan (1) Cellulitis of left external cheek Current Visit: Yes Status: Acute Code(s): L03.211 - CELLULITIS OF FACE SNOMED Code(s): 39592923 Plan: 1patient with a left facial cellulitis failing outpatient oral clindamycin therapy high clinic suspicious for community associated MRSA 2-we will obtain cultures if the area started to drain, RN has been told to apply warm compresses to the area 3-patient seemed to showing some clinical improvement and will continue vancomy [facility] to dose target trough of 15 while watching kidney function and vancomycin trough closely Time with Patient: Less than 30
[2022-05-03] MEDS: SODIUM CHLORIDE 0.9% 1,000 ML IV SCH ×2 (04:32→17:42)
[2022-05-03] MEDS: LEVOTHYROXINE 25 MCG TAB PO SCH (05:41)
[2022-05-03] MEDS: HYDROcodone/APAP 10-325MG 1 EACH TAB PO PRN ×3 (05:41→22:50)
[2022-05-03] MEDS: busPIRone HCl 5 MG TAB PO SCH ×2 (07:24→19:54)
[2022-05-03] MEDS: VANCOMYCIN 1,250 MG in SODIUM CHLORIDE 0.9% 250 ML IVPB SCH ×2 (07:24→19:53)
[2022-05-03] MEDS: CITALOPRAM HYDROBROMIDE 20 MG TAB PO SCH (07:24)
[2022-05-03] MEDS: METHYLPHENIDATE HCL 10 MG TAB PO SCH ×3 (07:25→18:45)
[2022-05-03] MEDS: PANTOPRAZOLE 40 MG TABLET PO SCH ×2 (07:25→17:42)
[2022-05-03] MEDS: VARENICLINE 0.5 MG TAB PO SCH ×2 (07:25→19:55)
[2022-05-03] MEDS: ATORVASTATIN 10 MG TAB PO SCH (19:53)
[2022-05-03] MEDS: EZETIMIBE 10 MG TAB PO SCH (19:53)
[2022-05-03] MEDS: tiZANidine 4 MG TAB PO SCH (19:54)
[2022-05-03] MEDS: clonazePAM 0.5 MG TAB PO SCH (19:54)
--- NOTE | 2022-05-04 02:23 | P.PN ---
Subjective Progress Note Date: 05/02/22 This is a 56-year-old female with past medical history of chronic intermittent asthma, COPD, gastroesophageal reflux disease, hyperlipidemia, hypothyroidism, osteoarthritis, ADD/ADHD, anxiety, depression, former nicotine dependence presented to the ER with worsening left cheek cellulitis. Patient initially had presented to urgent care last Wednesday due to left cheek edema, suspected spider bite and placed on clindamycin. 2 days later followed up with PCP, received IM Rocephin. Left cheek cellulitis continued worsening, radiating to the left jaw, increased pain with chills and proceeded to the ER. Denies visual pain or deficits. Denies teeth/mandible/mastoid tenderness or pain. Denies chest pain, palpitations or shortness of breath. Denies lightheadedness dizziness or focal deficits. Afebrile, WBC 12, renal function stable. Blood cultures obtained, placed on vancomycin IV. Infectious disease consulted. 05/01/2022 evaluated by infectious disease, continues on vancomycin IV with significant clinical improvement. Decreased pain and edema. Creatinine stable 0.8. Afebrile. Preliminary blood cultures reporting no growth. Wound culture of left cheek not collected as it is not draining. Denies chest pain, palpitations or shortness of breath. 05/02/2022 Patient is lying in the bed. Awake alert and oriented x3. Left cheek swelling and redness slightly decreased compared to yesterday. No drainage noted. Otherwise patient has been afebrile. No nausea vomiting abdominal pain or diarrhea. Clinically improving. Laboratory test showed WBC 9.9 hemoglobin 10.9 and platelets 270 Sodium 141 potassium 4.1 chloride 102 bicarb is 29.4 BUN 11.1 and creatinine 0.8 Current medications reviewed. Objective - Vital Signs Vital signs: Vital Signs Temp 98.1 F 05/02/22 18:58 Pulse 59 L 05/02/22 18:58 Resp 16 05/02/22 18:58 BP 115/71 05/02/22 18:58 Pulse Ox 96 05/02/22 18:58 FiO2 Intake & Output 05/02/22 05/02/22 05/03/22 06:59 18:59 06:59 Intake Total 358 500 Balance 358 500 Intake: Oral 358 500 Other: Voiding Method Toilet Toilet # Voids 2 2 - Exam PHYSICAL EXAM: VITAL SIGNS: As above GENERAL: Alert and oriented 3, Sitting up in bed, no acute distress HEENT: Conjunctivae normal. eyes normal. Left cheek less edematous with decreased induration NECK: Supple, No JVD. CARDIOVASCULAR: S1, S2 regular. No murmur RESPIRATION: Unlabored, Breath sounds diminished in the bases. No rhonchi or crackles. ABDOMEN: Soft, nontender, nondistended ,No guarding. Bowel sounds heard. LEGS: No edema. no swelling NERVOUS SYSTEM: Cranial N 2-12 grossly normal. No focal deficits. Strength and sensation grossly intact. Skin: no rash, warm and dry - Labs CBC & Chem 7: 05/02/22 04:59 05/02/22 04:59 Labs: Abnormal Lab Results - Last 24 Hours (Table) 05/02/22 05/02/22 Range/Units 04:59 04:59 RBC 3.73 L (4.10-5.20) X 10*6/uL Hgb 10.9 L (12.0-15.0) g/dL Hct 32.8 L (37.2-46.3) % Carbon Dioxide 29.4 H (20.0-27.5) mmol/L Anion Gap 9.60 L (10.00-18.00) mmol/L Microbiology - Last 24 Hours (Table) 04/29/22 17:15 Blood Culture - Preliminary Blood No Growth after 72 hours 04/29/22 17:30 Blood Culture - Preliminary Blood No Growth after 72 hours Assessment and Plan Assessment: Left cheek cellulitis, abscess secondary to possible spider bite, failed outpatient clindamycin Chronic intermittent asthma, stable History of IBS COPD, stable Anxiety Depression Plan: Continue on current medication regime ,monitoring and symptomatic treatment. Blood cultures in progress. Continue IV vancomycin as per infectious disease. close monitoring of renal function with repeat labs ordered for a.m.. Time with Patient: Greater than 30
--- NOTE | 2022-05-04 02:24 | P.PN ---
Subjective Progress Note Date: 05/03/22 This is a 56-year-old female with past medical history of chronic intermittent asthma, COPD, gastroesophageal reflux disease, hyperlipidemia, hypothyroidism, osteoarthritis, ADD/ADHD, anxiety, depression, former nicotine dependence presented to the ER with worsening left cheek cellulitis. Patient initially had presented to urgent care last Wednesday due to left cheek edema, suspected spider bite and placed on clindamycin. 2 days later followed up with PCP, received IM Rocephin. Left cheek cellulitis continued worsening, radiating to the left jaw, increased pain with chills and proceeded to the ER. Denies visual pain or deficits. Denies teeth/mandible/mastoid tenderness or pain. Denies chest pain, palpitations or shortness of breath. Denies lightheadedness dizziness or focal deficits. Afebrile, WBC 12, renal function stable. Blood cultures obtained, placed on vancomycin IV. Infectious disease consulted. 05/01/2022 evaluated by infectious disease, continues on vancomycin IV with significant clinical improvement. Decreased pain and edema. Creatinine stable 0.8. Afebrile. Preliminary blood cultures reporting no growth. Wound culture of left cheek not collected as it is not draining. Denies chest pain, palpitations or shortness of breath. 05/02/2022 Patient is lying in the bed. Awake alert and oriented x3. Left cheek swelling and redness slightly decreased compared to yesterday. No drainage noted. Otherwise patient has been afebrile. No nausea vomiting abdominal pain or diarrhea. Clinically improving. Laboratory test showed WBC 9.9 hemoglobin 10.9 and platelets 270 Sodium 141 potassium 4.1 chloride 102 bicarb is 29.4 BUN 11.1 and creatinine 0.8 05/03/2022 Patient is currently lying in bed. Left cheek swelling and redness is much improved. Patient has been afebrile. No other acute overnight events. Anticipate discharge in the next 24 hours with more clinical improvement. ID is on board. Current medications reviewed. Objective - Vital Signs Vital signs: Vital Signs Temp 98.4 F 05/03/22 13:29 Pulse 64 05/03/22 13:29 Resp 14 05/03/22 13:29 BP 131/70 05/03/22 13:29 Pulse Ox 98 05/03/22 13:29 FiO2 Intake & Output 05/03/22 05/03/22 05/04/22 06:59 18:59 06:59 Intake Total 1250 720 Balance 1250 720 Intake: Intake, IV Titration 250 Amount Vancomycin 1,250 mg In 250 Sodium Chloride 0.9% 250 ml @ 125 mls/hr IVPB Q12H [facility] Rx#:[id number] Oral 1000 720 Other: Voiding Method Toilet # Voids 3 - Exam PHYSICAL EXAM: VITAL SIGNS: As above GENERAL: Alert and oriented 3, Sitting up in bed, no acute distress HEENT: Conjunctivae normal. eyes normal. Left cheek less edematous with decreased induration NECK: Supple, No JVD. CARDIOVASCULAR: S1, S2 regular. No murmur RESPIRATION: Unlabored, Breath sounds diminished in the bases. No rhonchi or crackles. ABDOMEN: Soft, nontender, nondistended ,No guarding. Bowel sounds heard. LEGS: No edema. no swelling NERVOUS SYSTEM: Cranial N 2-12 grossly normal. No focal deficits. Strength and sensation grossly intact. Skin: no rash, warm and dry - Labs CBC & Chem 7: 05/02/22 04:59 05/02/22 04:59 Labs: Microbiology - Last 24 Hours (Table) 04/29/22 17:30 Blood Culture - Preliminary Blood No Growth after 96 hours 04/29/22 17:15 Blood Culture - Preliminary Blood No Growth after 96 hours Assessment and Plan Assessment: Left cheek cellulitis, abscess secondary to possible spider bite, failed outpatient clindamycin Chronic intermittent asthma, stable History of IBS COPD, stable Anxiety Depression Plan: Continue on current medication regime ,monitoring and symptomatic treatment. Blood cultures in progress. Continue IV vancomycin as per infectious disease. close monitoring of renal function with repeat labs ordered for a.m..
[2022-05-04 05:27] LABS: African American GFR (CKD) >90 (>60 ml/min/1.73 sqM); Anion Gap 8 mmol/L; Blood Urea Nitrogen 10 mg/dL (7-17); Calcium 8.6 mg/dL (8.4-10.2); Carbon Dioxide 26 mmol/L (22-30); Chloride 103 mmol/L (98-107); Glucose 95 mg/dL (74-99); Non-African American GFR(CKD) >90 (>60 ml/min/1.73 sqM); Potassium 4.1 mmol/L (3.5-5.1); Sodium 137 mmol/L (137-145)
[2022-05-04] MEDS ORDERED: VANCOMYCIN TROUGH DUE 1 EACH MISC MISCELLANE ONE (06:00)
[2022-05-04] MEDS: VANCOMYCIN 1,250 MG in SODIUM CHLORIDE 0.9% 250 ML IVPB SCH (07:07)
[2022-05-04] MEDS: VARENICLINE 0.5 MG TAB PO SCH (07:07)
[2022-05-04] MEDS: LEVOTHYROXINE 25 MCG TAB PO SCH (07:07)
[2022-05-04] MEDS: CITALOPRAM HYDROBROMIDE 20 MG TAB PO SCH (07:08)
[2022-05-04] MEDS: HYDROcodone/APAP 10-325MG 1 EACH TAB PO PRN (07:08)
[2022-05-04] MEDS: PANTOPRAZOLE 40 MG TABLET PO SCH (07:08)
[2022-05-04] MEDS: METHYLPHENIDATE HCL 10 MG TAB PO SCH (07:08)
[2022-05-04] MEDS: busPIRone HCl 5 MG TAB PO SCH (07:09)
[2022-05-04] MEDS: SODIUM CHLORIDE 0.9% 1,000 ML IV SCH (07:10)
[2022-05-04 07:34] VITALS: BP 93/57; PULSE 54; TEMP 98.2
[2022-05-04 09:14] VITALS: RESP 18
[2022-05-04 10:15] LABS: Basophils # (A) 0.04 X 10*3/uL (0.00-0.10); Basophils % (A) 0.3 %; Eosinophils # (A) 0.44 X 10*3/uL (0.04-0.35); Eosinophils % (A) 3.8 %; HCT 31.3 % (37.2-46.3); HGB 10.3 g/dL (12.0-15.0); Immature Grans, Automated 0.4 %; Lymphocytes # (A) 3.23 X 10*3/uL (0.90-5.00); MCH 28.8 pg (27.0-32.0); MCHC 32.9 g/dL (32.0-37.0); MCV 87.4 fL (80.0-97.0); Monocytes # (A) 0.78 X 10*3/uL (0.20-1.00); Monocytes % (A) 6.8 %; NRBC Per 100 WBC 0 /100 WBCS (0.0-0.0); Neutrophils # (A) 7.01 X 10*3/uL (1.80-7.70); Neutrophils % (A) 60.7 %; Platelet Count 243 X 10*3/uL (140-440); RBC 3.58 X 10*6/uL (4.10-5.20); RDW 14.3 % (11.5-14.5); WBC 11.55 X 10*3/uL (4.50-10.00)
--- NOTE | 2022-05-04 11:48 | P.PN ---
Subjective Progress Note Date: 05/03/22 Principal diagnosis: Left cheek cellulitis/abscess Patient is a 56-year-old female presenting to the hospital with left cheek pain swelling and redness concerning for left cheek cellulitis/abscess. On today's evaluation that is 05/03/2022, the patient continues to be afebrile, the patient left cheek swelling and redness has slightly decreased in intensity, denies any drainage, patient denies having any chest pain or shortness of breath or cough no abdominal pain no diarrhea Objective - Vital Signs Vital signs: Vital Signs Temp 98.4 F 05/03/22 13:29 Pulse 64 05/03/22 13:29 Resp 14 05/03/22 13:29 BP 131/70 05/03/22 13:29 Pulse Ox 98 05/03/22 13:29 FiO2 Intake & Output 05/02/22 05/03/22 05/03/22 18:59 06:59 18:59 Intake Total 358 1250 360 Balance 358 1250 360 Intake: Intake, IV Titration 250 Amount Vancomycin 1,250 mg In 250 Sodium Chloride 0.9% 250 ml @ 125 mls/hr IVPB Q12H [facility] Rx#:[id number] Oral 358 1000 360 Other: Voiding Method Toilet Toilet # Voids 2 3 - Exam GENERAL DESCRIPTION: Middle-age female lying in bed in no distress HEENT : Left cheek area of induration has slightly decreased redness has decreased no drainage RESPIRATORY SYSTEM: Unlabored breathing , decreased breath sounds at bases HEART: S1 S2 regular rate and rhythm , ABDOMEN: Soft , no tenderness EXTREMITIES: No edema feet - Labs CBC & Chem 7: 05/04/22 05:05 05/04/22 05:05 Labs: Microbiology - Last 24 Hours (Table) 04/29/22 17:15 Blood Culture - Preliminary Blood No Growth after 72 hours 04/29/22 17:30 Blood Culture - Preliminary Blood No Growth after 72 hours Assessment and Plan (1) Cellulitis of left external cheek Current Visit: Yes Status: Acute Code(s): L03.211 - CELLULITIS OF FACE SNOMED Code(s): 85804484 Plan: 1patient with a left facial cellulitis failing outpatient oral clindamycin therapy high clinic suspicious for community associated MRSA 2-we will obtain cultures if the area started to drain, RN has been told to apply warm compresses to the area 3-patient seemed to showing some clinical improvement and will continue vancomycin pharmacy to dose target trough of 15 for another 24 hours the patient continued to improve to finish therapy with the Bactrim DS Time with Patient: Less than 30
--- NOTE | 2022-05-04 11:49 | P.PN ---
Subjective Progress Note Date: 05/04/22 Principal diagnosis: Left cheek cellulitis/abscess Patient is a 56-year-old female presenting to the hospital with left cheek pain swelling and redness concerning for left cheek cellulitis/abscess. On today's evaluation that is 05/04/2022, the patient denies any fever or any chills, the patient left cheek swelling and redness has slightly decreased in intensity there is no drainage, patient denies having any chest pain or shortness of breath or cough no abdominal pain no diarrhea, no new symptoms Objective - Vital Signs Vital signs: Vital Signs Temp 98.2 F 05/04/22 07:00 Pulse 54 L 05/04/22 07:00 Resp 18 05/04/22 08:00 BP 93/57 05/04/22 07:00 Pulse Ox 94 L 05/04/22 07:00 FiO2 Intake & Output 05/03/22 05/04/22 05/04/22 18:59 06:59 18:59 Intake Total 720 1000 180 Balance 720 1000 180 Intake: Intake, IV Titration 500 Amount Vancomycin 1,250 mg In 500 Sodium Chloride 0.9% 250 ml @ 125 mls/hr IVPB Q12H [facility] Rx#:[id number] Oral 720 500 180 Other: Voiding Method Toilet Toilet # Voids 3 - Exam GENERAL DESCRIPTION: Middle-age female lying in bed in no distress HEENT : Left cheek area of induration has slightly decreased , there is no fluctuation or drainage RESPIRATORY SYSTEM: Unlabored breathing , decreased breath sounds at bases HEART: S1 S2 regular rate and rhythm , ABDOMEN: Soft , no tenderness EXTREMITIES: No edema feet - Labs CBC & Chem 7: 05/04/22 05:05 05/04/22 05:05 Labs: Abnormal Lab Results - Last 24 Hours (Table) 05/04/22 Range/Units 05:05 WBC 11.55 H (4.50-10.00) X 10*3/uL RBC 3.58 L (4.10-5.20) X 10*6/uL Hgb 10.3 L (12.0-15.0) g/dL Hct 31.3 L (37.2-46.3) % Immature Gran # 0.05 H (0.00-0.04) X 10*3/uL Eosinophils # 0.44 H (0.04-0.35) X 10*3/uL Microbiology - Last 24 Hours (Table) 04/29/22 17:30 Blood Culture - Preliminary Blood No Growth after 96 hours 04/29/22 17:15 Blood Culture - Preliminary Blood No Growth after 96 hours Assessment and Plan (1) Cellulitis of left external cheek Current Visit: Yes Status: Acute Code(s): L03.211 - CELLULITIS OF FACE SNOMED Code(s): 46454957 Plan: 1patient with a left facial cellulitis failing outpatient oral clindamycin therapy high clinic suspicious for community associated MRSA 2- -patient seemed to showing some clinical improvement and will continue vancomycin pharmacy to dose target trough of 15 for , plan is to finish therapy with the Bactrim DS and a close outpatient follow-up Time with Patient: Less than 30
--- NOTE | 2022-05-04 14:13 | P.DS ---
Providers Date of admission: 04/29/22 20:55 Expected date of discharge: 05/04/22 Attending physician: Ihsan Ding Consults: 04/29/22 20:18 Consult Physician Routine Consulting Provider: Pauline Louise Consult Reason/Comments: left cheek cellulitis Do you want consulting provider notified?: Yes Primary care physician: Ihsan Ding Hospital Course: Final Diagnoses: Left facial cellulitis, possible abscess, failed outpatient treatment with clindamycin, suspicious for community associated MRSA Chronic intermittent asthma, stable History of IBS COPD, stable Anxiety Depression Hospital course:This is a 56-year-old female with past medical history of chronic intermittent asthma, COPD, gastroesophageal reflux disease, hyperlipidemia, hypothyroidism, osteoarthritis, ADD/ADHD, anxiety, depression, former nicotine dependence presented to the ER with worsening left cheek cellulitis. Patient initially had presented to urgent care last Wednesday due to left cheek edema, suspected spider bite and placed on clindamycin. 2 days later followed up with PCP, received IM Rocephin. Left cheek cellulitis continued worsening, radiating to the left jaw, increased pain with chills and proceeded to the ER. Denies visual pain or deficits. Denies teeth/mandible/mastoid tenderness or pain. Denies chest pain, palpitations or shortness of breath. Denies lightheadedness dizziness or focal deficits. Afebrile, WBC 12, renal function stable. Blood cultures obtained, placed on vancomycin IV. Infectious disease consulted. 05/01/2022 evaluated by infectious disease, continues on vancomycin IV with significant clinical improvement. Decreased pain and edema. Creatinine stable 0.8. Afebrile. Preliminary blood cultures reporting no growth. Wound culture of left cheek not collected as it is not draining. Denies chest pain, palpitations or shortness of breath. Evaluated and treated by infectious disease, maintained on vancomycin per pharmacy dosing. Left cheek redness, edema, decreased, no drainage. Denies chest pain, palpitations or shortness of breath. Significant clinical improvement. Cleared by infectious disease for discharge on Bactrim DS. Patient will be discharged home today in a stable condition with guarded prognosis. The impression and plan of care has been dictated as directed. : I performed a history and examination of this patient, discussed the same with the dictator. I agree with the dictator's note ,documented as a scribe. Any additional findings or plans will be noted. Patient Condition at Discharge: Stable Plan - Discharge Summary Discharge Rx Participant: No New Discharge Prescriptions: New Sulfamethox-Tmp 800-160Mg [Bactrim DS 800-160 mg] 1 tab PO Q12HR #20 tab Continue Ezetimibe [Zetia] 10 mg PO HS Levothyroxine Sodium [Synthroid] 25 mcg PO DAILY Omeprazole 40 mg PO BID clonazePAM [KlonoPIN] 0.5 mg PO HS Methylphenidate HCl 20 mg PO TID busPIRone HCL 15 mg PO BID Atorvastatin Calcium [Lipitor] 10 mg PO HS estradioL [Estrace] 0.5 mg PO DAILY tiZANidine HCL 6 mg PO HS Citalopram Hydrobromide [CeleXA] 40 mg PO DAILY Varenicline [Chantix Starter Pack] 0.5 mg PO BID HYDROcodone/APAP 10-325MG [[place] 10-325] 1 tab PO TID No Action Mupirocin 2% Oint [Bactroban 2% Oint] 1 applic TOPICAL BID Discharge Medication List Ezetimibe [Zetia] 10 mg PO HS 09/05/14 [History] Levothyroxine Sodium [Synthroid] 25 mcg PO DAILY 03/13/16 [History] Omeprazole 40 mg PO BID 11/13/16 [History] clonazePAM [KlonoPIN] 0.5 mg PO HS 05/03/17 [History] Methylphenidate HCl 20 mg PO TID 09/09/18 [History] busPIRone HCL 15 mg PO BID 02/05/19 [History] Atorvastatin Calcium [Lipitor] 10 mg PO HS 10/06/19 [History] estradioL [Estrace] 0.5 mg PO DAILY 10/06/19 [History] Citalopram Hydrobromide [CeleXA] 40 mg PO DAILY 02/09/22 [History] tiZANidine HCL 6 mg PO HS 02/09/22 [History] HYDROcodone/APAP 10-325MG [[place] 10-325] 1 tab PO TID 04/29/22 [History] Mupirocin 2% Oint [Bactroban 2% Oint] 1 applic TOPICAL BID 04/29/22 [History] Varenicline [Chantix Starter Pack] 0.5 mg PO BID 04/29/22 [History] Sulfamethox-Tmp 800-160Mg [Bactrim DS 800-160 mg] 1 tab PO Q12HR #20 tab 05/04/22 [Rx] Follow up Appointment(s)/Referral(s): Ihsan Ding DO [Primary Care Provider] - 1 Week Pauline Louise MD [STAFF PHYSICIAN] - 05/18/22 1:45 pm Patient Instructions/Handouts: Cellulitis (GEN), Insect Bite or Sting (DC)
== END 2022-05-04 14:30 | disposition home or self-care (01) ==
LOC: EC 15:24 → 6NMEDSUR 20:55
PROVIDERS: ADMIT Family Medicine; ATTEND Family Medicine
DX: L03.211 Cellulitis of face (principal); J44.9 Chronic obstructive pulmonary disease, unspecified; J45.20 Mild intermittent asthma, uncomplicated; K58.9 Irritable bowel syndrome, unspecified; F41.9 Anxiety disorder, unspecified; F32.A Depression, unspecified; K21.9 Gastro-esophageal reflux disease without esophagitis; E78.5 Hyperlipidemia, unspecified; E03.9 Hypothyroidism, unspecified; M19.90 Unspecified osteoarthritis, unspecified site; F90.9 Attention-deficit hyperactivity disorder, unspecified type; Z87.891 Personal history of nicotine dependence; E16.2 Hypoglycemia, unspecified; Z87.442 Personal history of urinary calculi; G89.29 Other chronic pain; M54.50 Low back pain, unspecified; M54.2 Cervicalgia; M25.512 Pain in left shoulder; R29.6 Repeated falls; Z98.1 Arthrodesis status; Z96.82 Presence of neurostimulator; Z98.890 Other specified postprocedural states; Z90.710 Acquired absence of both cervix and uterus; Q07.00 Arnold-Chiari syndrome without spina bifida or hydrocephalus; Z82.5 Family history of asthma and other chronic lower respiratory diseases; Z82.61 Family history of arthritis; Z79.890 Hormone replacement therapy; Z79.891 Long term (current) use of opiate analgesic; Z79.899 Other long term (current) drug therapy
CPT/HCPCS: 96361 ×6; 96366 ×6; 96365; 96375; 99284; 36415; 80053; 80048 ×2; 82565 ×2; 85025 ×3; 80202 ×2; 87040; G0378 ×6; J3370 ×6; J2930; J3010; J1885

== ENCOUNTER → 2022-04-29 | Outpatient (CLI) | payer MEDICARE, OTHER ==
[2022-04-29 09:31] VITALS: BP 104/62; PULSE 64; RESP 18; TEMP 98.6
--- NOTE | 2022-04-29 09:35 | P.PN ---
Subjective Progress Note Date: 04/29/22 This is follow up visit for 56 yr old female with a history of severe and chronic low back pain ,secondary to failed back surgery syndrome lumbar area , lumbar degenerative disc diseases ,and lumbar spondylosis with facet arthropathy presents today for medication refills. Pain level is currently at 8 out of 10 in intensity, constant, numbing, tingling sensation in the lower aspects of her lumbar spine with radiation of pain down the right lower extremity. Pain is provoked with overactivity such as bending, twisting and lifting. Pain is alleviated with medications ( [place] 10/325#90), Zanaflex 6 mg daily at bedtime ,topicals, heat, laying supine, repositioning and rest. Patient is currently on [place] 10/325#90, Tylenol Patient denies any side effects of the medication(s), denies excessive drowsiness or sleepiness, denies suicidal ideation and reports that the current pain medication is helping to control the pain and improve activities of daily living. Patient denies any motor or sensory deficits. Patient denies any fever or night sweats, denies any change in the bowel movements or urination. Physical Examination: -Constitutional: Cooperative. Not in acute distress . - Neurologic: Cranial nerve II to XII intact. No focal neurological deficits. - Psychatric: Alert & oriented x 3. Matching mood & appropriate affect. Judgment and insight intact. - Musculoskeletal: Cervical spine: Muscle bulk/ tone/ strength in the bilateral upper extremities normal Vertebral body tenderness to palpation over Sp[place]ling test positive Distraction test positive Facet loading test positive Thoracic spine Muscle bulk / tone/ strength in the bilateral paraspinal muscles normal Vertebral body tender to palpation over Facet loading test positive Lumbar spine: Motor bulk/ tone/ strength lower extremities , thigh and legs : 5/5 Deep tendon reflexes : Normal Knee Jerk. Normal Ankle Jerk . Vertebral body tenderness to palpation over L4, L5 Lumbar Facet Loading Test positive Straight Leg Raise: positive at 30 degrees right side/ left side Gaenslen's Test positive Sacral spine : Severe tenderness over the Sacroiliac joint: right side / left side Range of motion: Flexion of the lumbar spine <60 degrees Range of motion: Extension of the lumbar spine <20 degrees Gaenslen's Test positive Raulito's Test positive Tim test: positive right side / left side Thigh Thrust Test Sacral Thrust Test Assessment and plan: Chronic low back pain secondary to lumbar degenerative disc disease , l umbar spondylosis with facet arthropathy without myelopathy Failed back surgery syndrome lumbar area Chronic and current use of high-risk medication (Opioids). The patient was counseled about risk of opioid use, psychological risk associated with opioids and was orally counseled to not overuse , divert or sell medications. Pt is to store medication in a safe location. The patient is counseled against driving while using narcotic medications and also not to use alcohol or any illicit recreational drugs. Patient verbalized understanding that the lack of compliance will result in failure to renew narcotic prescription(s) as well as possible discharge from the clinic Diagnoses, prognosis and treatment options including but not limited to physical therapy, surgical interventions, interventional therapies and medication management including narcotics and adjuvant medication were discussed. All patient questions answered MAPS reviewed and it was appropriate. Narcotic agreement updated today 02/25/22 Prescription refill for [place] 10/325 #90 w 1 refill , urine drug screen ordered today Objective - Vital Signs Vital signs: Intake & Output 04/28/22 04/29/22 04/29/22 18:59 06:59 18:59 Weight 74.389 kg
== END ==
LOC: PNWHC3 08:56
PROVIDERS: ATTEND Specialist
DX: M51.36 Other intervertebral disc degeneration, lumbar region (principal); M47.816 Spondylosis without myelopathy or radiculopathy, lumbar region; G89.29 Other chronic pain; Z79.891 Long term (current) use of opiate analgesic; Z51.81 Encounter for therapeutic drug level monitoring; Z88.0 Allergy status to penicillin; Z87.891 Personal history of nicotine dependence
CPT/HCPCS: 80307; G0482; G0463; 99212

== ENCOUNTER → 2022-06-24 | Outpatient (CLI) | payer MEDICARE, OTHER ==
[2022-06-24 09:56] VITALS: BP 105/67; PULSE 66; RESP 18; TEMP 98.2
--- NOTE | 2022-06-24 13:59 | P.PAINPG ---
PQRS Measure Charge Sheet Comment: A 56 yr old female with a history of severe and chronicneck pain secondary to cervical degenerative disc diseases and spondylosis with facet arthropathy without myelopathy presents today for medication refills. Pain level is currently at 6/10 in intensity, constant, localized in the lower cervical spine, sharp in character w shooting towards the BL shoulders. Pain is provoked by any movements. Pain is alleviated with medications ([place], ibuprofen, naproxen), topicals, injections the past, PT 6 years ago, massage go to use at home, laying supine, repositioning and rest. Interventional pain procedures completed include Cervical TPIs Patient is currently on [place] 10/#90 Patient denies any side effects of the medication(s), denies excessive drowsiness or sleepiness, denies suicidal ideation and reports that the current pain medication is helping to control the pain and improve activities of daily living. Patient denies any motor or sensory deficits. Patient denies any fever or night sweats, denies any change in the bowel movements or urination. Physical Examination: -Constitutional: Cooperative. Not in acute distress . - Neurologic: Cranial nerve II to XII intact. No focal neurological deficits. - Psychatric: Alert & oriented x 3. Matching mood & appropriate affect. Judgment and insight intact. - Musculoskeletal: Cervical spine: Muscle bulk/ tone/ strength in the bilateral upper extremities normal Vertebral body tenderness to palpation over Spurling test positive Distraction test positive Facet loading test positive Thoracic spine Muscle bulk / tone/ strength in the bilateral paraspinal muscles normal Vertebral body tender to palpation over Facet loading test positive Lumbar spine: Motor bulk/ tone/ strength lower extremities , thigh and legs : 5/5 Deep tendon reflexes : Normal Knee Jerk. Normal Ankle Jerk . Vertebral body tenderness to palpation over Lumbar Facet Loading Test positive w palpation over BL C6-C7, C7-T1 Straight Leg Raise: positive at 30 degrees right side/ left side Gaenslen's Test positive Sacral spine : Severe tenderness over the Sacroiliac joint: right side / left side Range of motion: Flexion of the lumbar spine <60 degrees Range of motion: Extension of the lumbar spine <20 degrees Gaenslen's Test positive Raulito's Test positive Tim test: positive right side / left side Thigh Thrust Test Sacral Thrust Test Assessment and plan: Chronic neck pain secondary to cervical degenerative disc disease, spondylosis with facet arthropathy without myelopathy Recommend cervical x ray re: M50.30 and PT of the cervical spine, focus on traction and decompression x 6 wks Chronic and current use of high-risk medication (Opioids). The patient was counseled about risk of opioid use, psychological risk associated with opioids and was orally counseled to not overuse , divert or sell medications. Pt is to store medication in a safe location. The patient is counseled against driving while using narcotic medications and also not to use alcohol or any illicit recreational drugs. Patient verbalized understanding that the lack of compliance will result in failure to renew narcotic prescription(s) as well as possible discharge from the clinic Diagnoses, prognosis and treatment options including but not limited to physical therapy, surgical interventions, interventional therapies and medication management including narcotics and adjuvant medication were discussed. All patient questions answered Prescription refills for [place] 10/325mg #90 w 1 RF I have spent less than 30 minutes on patient care today. Dr Castanon was available by phone for the evaluation of this patient. The time was used to review the medical records including relevant urine studies and Prescription history (MAPs), review of the available imaging, evaluation and examination of the patient, coordination of care with the medical staff and if applicable referring physicians, as well as creation of the medical record PQRS Narrative: Smoking Status Former smoker Narcotic Agreement Date Signed 02/25/22 Hx Alcohol Use (MH) No Home Medications: Ambulatory Orders Ezetimibe [Zetia] 10 mg PO HS 09/05/14 Levothyroxine Sodium [Synthroid] 25 mcg PO DAILY 03/13/16 Omeprazole 40 mg PO BID 11/13/16 clonazePAM [KlonoPIN] 0.5 mg PO HS 05/03/17 Methylphenidate HCl 20 mg PO TID 09/09/18 busPIRone HCL 15 mg PO BID 02/05/19 Atorvastatin Calcium [Lipitor] 10 mg PO HS 10/06/19 estradioL [Estrace] 0.5 mg PO DAILY 10/06/19 Citalopram Hydrobromide [CeleXA] 40 mg PO DAILY 02/09/22 tiZANidine HCL 6 mg PO HS 02/09/22 Mupirocin 2% Oint [Bactroban 2% Oint] 1 applic TOPICAL BID 04/29/22 Varenicline [Chantix Starter Pack] 0.5 mg PO BID 04/29/22 Sulfamethox-Tmp 800-160Mg [Bactrim DS 800-160 mg] 1 tab PO Q12HR #20 tab 05/04/22 HYDROcodone/APAP 10-325MG [[place] 10-325] 1 tab PO Q8H PRN 30 Days #90 tab HYDROcodone/APAP 10-325MG [[place] 10-325] 1 tab PO TID 30 Days #90 tab 06/24/22 Controlled Substance Measures - Controlled Substance Measures Is patient prescribed a controlled substance at discharge?: Yes When asked, does pt state using other controlled substances?: No If prescribed controlled substance>3 days was MAPS reviewed?: Yes If Rx opioid, was Start Talking consent form obtained?: Yes Was information provided regarding opioid addiction?: Yes
== END ==
LOC: PNWHC3 09:28
PROVIDERS: ATTEND Specialist
DX: M47.812 Spondylosis without myelopathy or radiculopathy, cervical region (principal); M50.30 Other cervical disc degeneration, unspecified cervical region; G89.29 Other chronic pain; Z79.891 Long term (current) use of opiate analgesic; Z88.0 Allergy status to penicillin; Z87.891 Personal history of nicotine dependence
CPT/HCPCS: 99211

== ENCOUNTER → 2022-08-19 | Outpatient (CLI) | payer MEDICARE, OTHER ==
[2022-08-19 09:24] VITALS: BP 98/60; PULSE 60; RESP 18; TEMP 98.5
--- NOTE | 2022-08-19 09:42 | P.PN ---
Subjective Progress Note Date: 08/19/22 A 56 yr old female with a history of severe and chronicneck pain secondary to cervical degenerative disc diseases and spondylosis with facet arthropathy without myelopathy presents today for medication refills. Pain level is currently at 6/10 in intensity, constant, localized in the lower cervical spin e, sharp in character w shooting towards the BL shoulders. Pain is provoked by any movements. Pain is alleviated with medications ([place], ibuprofen, naproxen), topicals, injections the past, patient currently on [place] 10/325 every 8 hours she denies any side effect of the medication she denies any excessive drowsiness or sleepiness, patient denies any fever or night sweats she denies any change in the bowel movements or urination, and she was given a prescription for physical therapy last visit and she did not do it because she lost the prescription for the physical therapy, Patient had the spinal cord stimulator for the lumbar spine, done by Dr. Piper ([facility] ), patient had MRI of the cervical spine done 2016 which showed that she had cervical foraminal stenosis and cervical spine stenosis Physical Examination: -Constitutional: Cooperative. Not in acute distress . - Neurologic: Cranial nerve II to XII intact. No focal neurological deficits. - Psychatric: Alert & oriented x 3. Matching mood & appropriate affect. Judgment and insight intact. - Musculoskeletal: Cervical spine: Muscle bulk/ tone/ strength in the bilateral upper extremities normal Vertebral body tenderness to palpation over Spurling test positive Distraction test positive Facet loading test positive Thoracic spine Muscle bulk / tone/ strength in the bilateral paraspinal muscles normal Vertebral body tender to palpation over Facet loading test positive Lumbar spine: Motor bulk/ tone/ strength lower extremities , thigh and legs : 5/5 Deep tendon reflexes : Normal Knee Jerk. Normal Ankle Jerk . Vertebral body tenderness to palpation over Lumbar Facet Loading Test positive w palpation over BL C6-C7, C7-T1 Straight Leg Raise: positive at 30 degrees right side/ left side Gaenslen's Test positive Assessment and plan: Chronic neck pain secondary to cervical degenerative disc disease, spondylosis with facet arthropathy without myelopathy, cervical spinal stenosis Recommend cervical x ray re: M50.30 and PT of the cervical spine, focus on traction and decompression x 6 wks Chronic and current use of high-risk medication (Opioids). The patient was counseled about risk of opioid use, psychological risk associated with opioids and was orally counseled to not overuse , divert or sell medications. Pt is to store medication in a safe location. The patient is counseled against driving while using narcotic medications and also not to use alcohol or any illicit recreational drugs. Patient verbalized understanding that the lack of compliance will result in failure to renew narcotic prescription(s) as well as possible discharge from the clinic Diagnoses, prognosis and treatment options including but not limited to physical therapy, surgical interventions, interventional therapies and medication management including narcotics and adjuvant medication were discussed. All patient questions answered Prescription refills for [place] 10/325mg #90 w 1 RF. She'll follow up in the pain clinic in 2 months after she finished chemotherapy and we will reevaluate if she continues to have neck pain would consider doing cervical epidural steroid injection PQRS Narrative: Smoking Status Former smoker Narcotic Agreement Date Signed 02/25/22 Hx Alcohol Use (MH) No Home Medications: Ambulatory Orders Ezetimibe [Zetia] 10 mg PO HS 09/05/14 Levothyroxine Sodium [Synthroid] 25 mcg PO DAILY 03/13/16 Omeprazole 40 mg PO BID 11/13/16 clonazePAM [KlonoPIN] 0.5 mg PO HS 05/03/17 Methylphenidate HCl 20 mg PO TID 09/09/18 busPIRone HCL 15 mg PO BID 02/05/19 Atorvastatin Calcium [Lipitor] 10 mg PO HS 10/06/19 estradioL [Estrace] 0.5 mg PO DAILY 10/06/19 Citalopram Hydrobromide [CeleXA] 40 mg PO DAILY 02/09/22 tiZANidine HCL 6 mg PO HS 02/09/22 Mupirocin 2% Oint [Bactroban 2% Oint] 1 applic TOPICAL BID 04/29/22 Varenicline [Chantix Starter Pack] 0.5 mg PO BID 04/29/22 Sulfamethox-Tmp 800-160Mg [Bactrim DS 800-160 mg] 1 tab PO Q12HR #20 tab 05/04/22 HYDROcodone/APAP 10-325MG [[place] 10-325] 1 tab PO Q8H PRN 30 Days #90 tab 06/24/22 HYDROcodone/APAP 10-325MG [[place] 10-325] 1 tab PO TID 30 Days #90 tab 06/24/22 Controlled Substance Measures - Controlled Substance Measures Is patient prescribed a controlled substance at discharge?: Yes When asked, does pt state using other controlled substances?: No If prescribed controlled substance>3 days was MAPS reviewed?: Yes If Rx opioid, was Start Talking consent form obtained?: Yes Was information provided regarding opioid addiction?: Yes Objective - Vital Signs Vital signs: Vital Signs Temp 98.5 F 08/19/22 09:17 Pulse 60 08/19/22 09:17 Resp 18 08/19/22 09:17 BP 98/60 08/19/22 09:17 Pulse Ox 96 08/19/22 09:17 FiO2 Intake & Output 08/18/22 08/19/22 08/19/22 18:59 06:59 18:59 Weight 72.575 kg
== END ==
LOC: PNWHC3 08:00
PROVIDERS: ATTEND Specialist
DX: M47.812 Spondylosis without myelopathy or radiculopathy, cervical region (principal); M50.30 Other cervical disc degeneration, unspecified cervical region; Z79.891 Long term (current) use of opiate analgesic; Z88.0 Allergy status to penicillin; Z87.891 Personal history of nicotine dependence
CPT/HCPCS: 99211

== ENCOUNTER → 2022-12-07 | Outpatient (CLI) | payer BC, OTHER ==
[2022-12-07 09:02] VITALS: BP 113/54; PULSE 61; RESP 18; TEMP 97.9
--- NOTE | 2022-12-07 12:28 | P.PAINPG ---
PQRS Measure Charge Sheet Comment: A 57 yr old female with a history of severe and chronic neck pain secondary to cervical DDD and spondylosis with facet arthropathy without myelopathy presents today for medication refills. Pain level is provoked at 7 /10 in intensity, constant, localized in the cervical spine, burning in character w shooting towards the BL shoulders. Pain is provoked by over activity. Pain is alleviated with PT w massage x 4 wks in Oct 2022, medications, topical , heat, ice, repositioning and rest. Patient is currently on [place], Ibu Patient denies any side effects of the medication(s), denies excessive drowsiness or sleepiness, denies suicidal ideation and reports that the current pain medication is helping to control the pain and improve activities of daily living. Patient denies any motor or sensory deficits. Patient denies any fever or night sweats, denies any change in the bowel movements or urination. Physical Examination: -Constitutional: Cooperative. Not in acute distress . - Neurologic: Cranial nerve II to XII intact. No focal neurological deficits. - Psychatric: Alert & oriented x 3. Matching mood & appropriate affect. Judgment and insight intact. - Musculoskeletal: Cervical spine: Muscle bulk/ tone/ strength in the bilateral upper extremities normal Vertebral body tenderness to palpation over Spurling test positive Distraction test positive Facet loading test positive TTP Thoracic spine Muscle bulk / tone/ strength in the bilateral paraspinal muscles normal Vertebral body tender to palpation over Facet loading test positive TTP Lumbar spine: Motor bulk/ tone/ strength lower extremities , thigh and legs : 5/5 Deep tendon reflexes : Normal Knee Jerk. Normal Ankle Jerk . Vertebral body tenderness to palpation over Lumbar Facet Loading Test positive Straight Leg Raise: positive at 30 degrees right side/ left side Gaenslen's Test positive Sacral spine : Severe tenderness over the Sacroiliac joint: right side / left side Range of motion: Flexion of the lumbar spine <60 degrees Range of motion: Extension of the lumbar spine <20 degrees Gaenslen's Test positive R / L Tim test: positive right side / left side Thigh Thrust Test positive R / L Sacral Thrust Test positive R/ L Assessment and plan: Chronic neck pain secondary to cervical DDD, spondylosis with facet a rthropathy without myelopathy Chronic and current use of high-risk medication (Opioids). The patient was counseled about risk of opioid use, psychological risk associated with opioids and was orally counseled to not overuse , divert or sell medications. Pt is to store medication in a safe location. The patient is counseled against driving while using narcotic medications and also not to use alcohol or any illicit recreational drugs. Patient verbalized understanding that the lack of compliance will result in failure to renew narcotic prescription(s) as well as possible discharge from the clinic Diagnoses, prognosis and treatment options including but not limited to physical therapy, surgical interventions, interventional therapies and medication management including narcotics and adjuvant medication were discussed. All patient questions answered MAPS reviewed and it was appropriate. UDS collected today 12/07/22. Prescription refill for Max[place] 10/325mg #90 1 RF. Add Zanaflex w 1 RF. I have spent less than 30 minutes on patient care today. Dr Castanon was available by phone for the evaluation of this patient. The time was used to review the medical records including relevant urine studies and Prescription history (MAPs), review of the available imaging, evaluation and examination of the patient, coordination of care with the medical staff and if applicable referring physicians, as well as creation of the medical record PQRS Narrative: Smoking Status Former smoker Narcotic Agreement Date Signed 02/25/22 Hx Alcohol Use (MH) No Home Medications: Ambulatory Orders Ezetimibe [Zetia] 10 mg PO HS 09/05/14 Levothyroxine Sodium [Synthroid] 25 mcg PO DAILY 03/13/16 Omeprazole 40 mg PO BID 11/13/16 clonazePAM [KlonoPIN] 0.5 mg PO HS 05/03/17 Methylphenidate HCl 20 mg PO TID 09/09/18 busPIRone HCL 15 mg PO BID 02/05/19 Atorvastatin Calcium [Lipitor] 10 mg PO HS 10/06/19 estradioL [Estrace] 0.5 mg PO DAILY 10/06/19 Citalopram Hydrobromide [CeleXA] 40 mg PO DAILY 02/09/22 Mupirocin 2% Oint [Bactroban 2% Oint] 1 applic TOPICAL BID 04/29/22 Varenicline [Chantix Starter Pack] 0.5 mg PO BID 04/29/22 Sulfamethox-Tmp 800-160Mg [Bactrim DS 800-160 mg] 1 tab PO Q12HR #20 tab 05/04/22 HYDROcodone/APAP 10-325MG [[place] 10-325] 1 tab PO Q8H PRN 30 Days #90 tab 12/07/22 HYDROcodone/APAP 10-325MG [[place] 10-325] 1 tab PO TID 30 Days #90 tab 12/07/22 tiZANidine HCL 6 mg PO BID PRN 30 Days #60 tab 12/07/22 Controlled Substance Measures - Controlled Substance Measures Is patient prescribed a controlled substance at discharge?: Yes
== END ==
LOC: PNWHC3 07:43
PROVIDERS: ATTEND Specialist
DX: M50.30 Other cervical disc degeneration, unspecified cervical region (principal); Z51.81 Encounter for therapeutic drug level monitoring; M47.812 Spondylosis without myelopathy or radiculopathy, cervical region; G89.29 Other chronic pain; Z79.891 Long term (current) use of opiate analgesic; Z87.891 Personal history of nicotine dependence; Z88.0 Allergy status to penicillin
CPT/HCPCS: 80307; 99212; G0482

== ENCOUNTER 2023-02-04 09:14 | Emergency (ER) | payer MEDICARE, BC, OTHER ==
[2023-02-04] MEDS ORDERED: PROCHLORPERAZINE INJ 10 MG/2 ML VIAL IVP STA (09:51)
[2023-02-04] MEDS ORDERED: SODIUM CHLORIDE 0.9% 1,000 ML IV STA ×2 (09:51→11:55)
[2023-02-04] MEDS ORDERED: diphenhydrAMINE 50 MG/ML 1 ML VIAL IVP STA (09:51)
--- NOTE | 2023-02-04 10:05 | ED ---
General Adult HPI - General Chief complaint: Headache Stated complaint: Headache Time Seen by Provider: 02/04/23 09:31 Source: patient, RN notes reviewed Mode of arrival: ambulatory Limitations: no limitations - History of Present Illness Initial comments: Patient is a 57-year-old female who presents emergency Department complaining of a severe headache. States it may be the worst headache of her life. States is benign by for one week. Has not been improving. Got worse over the last 24 hours which is why she presents for evaluation. Does have a history of migraines but states this is worse than her history of migraines and they normally go away. This is a history of Arnold-Chiari malformation as well as prior spine stimulator placement. Denies any fevers, chills, cough. Denies chest pain or shortness of breath. Denies any abdominal pain, nausea, vomiting. Denies any blurry vision, weakness, numbness. Only complaint is a headache. She is not a blood thinners. Denies any trauma. Presents as her headache is the worst headache she has experienced. It is not improving. No other acute complaints at this time. No known history of brain aneurysms, however she is concerned about it as this headache is severe. - Related Data Home Medications Medication Instructions Recorded Confirmed Ezetimibe [Zetia] 10 mg PO HS 09/05/14 02/04/23 Levothyroxine Sodium [Synthroid] 25 mcg PO DAILY 03/13/16 02/04/23 Omeprazole 40 mg PO HS 11/13/16 02/04/23 clonazePAM [KlonoPIN] 0.5 mg PO HS 05/03/17 02/04/23 Methylphenidate HCl 20 mg PO TID 09/09/18 02/04/23 busPIRone HCL 15 mg PO BID 02/05/19 02/04/23 Atorvastatin Calcium [Lipitor] 10 mg PO HS 10/06/19 02/04/23 estradioL [Estrace] 0.5 mg PO DAILY 10/06/19 02/04/23 Citalopram Hydrobromide [CeleXA] 40 mg PO DAILY 02/09/22 02/04/23 Albuterol Sulfate [Albuterol 2 puff PO RT-QID PRN 02/04/23 02/04/23 Sulfate Hfa] Fluticasone Nasal Delight [Flonase 1 spray EA NOSTRIL BID 02/04/23 02/04/23 Nasal Delight] Fluticasone/Vilanterol [Breo 1 puff INHALATION RT-DAILY 02/04/23 02/04/23 Ellipta 100-25 Mcg Inhaler] HYDROcodone/APAP 10-325MG [[place] 1 tab PO TID PRN 02/04/23 02/04/23 10-325] Naloxone HCl [Narcan] 4 mg NASAL DIRECTED PRN 02/04/23 02/04/23 tiZANidine HCL 6 mg PO HS 02/04/23 02/04/23 Allergies Allergy/AdvReac Type Severity Reaction Status Date / Time Penicillins Allergy Childhood Verified 02/04/23 10:30 Rash Review of Systems ROS Statement: Those systems with pertinent positive or pertinent negative responses have been documented in the HPI. Review of Systems: CONST: Denies fever EYES: Denies blurry vision ENT: Denies nasal congestion C/V: Denies Chest pain RESP: Denies shortness of breath GI: Denies abdominal pain : Denies dysuria SKIN: Denies rash. MSK: Denies joint pain. NEURO: Endorses headache ROS Other: All systems not noted in ROS Statement are negative. Past Medical History Past Medical History: Asthma, COPD, GERD/Reflux, Hyperlipidemia, Osteoarthritis (OA), Syncope, Thyroid Disorder Additional Past Medical History / Comment(s): kidney stones, hypoglycemia, chronic neck and L shoulder, lower back pain. Hx L facial and L ankle fxs, sinus problems, vertigo, falls in past due to syncope, low BP at times. Fusion of sacrum and iliac crest-per . spinal cord stimulator in cervical History of Any Multi-Drug Resistant Organisms: None Reported Past Surgical History: Adenoidectomy, Back Surgery, Heart Catheterization, Hernia Repair, Hysterectomy, Orthopedic Surgery, Tonsillectomy Additional Past Surgical History / Comment(s): Arnold chiari- repair of herniation into brain stem, rods in lower back, Septoplasty, bunionectomies, surgery L fx foot-alix placed & removed, lithotripsy and stent placed and re moved for kidney stones, laser eye surgery bilaterally, EGD, colonoscopy, Pain clinic procedures: injections and nerve burning and hardware placed in cervical neck. Rectocele repair. colonoscopy, d&c Past Anesthesia/Blood Transfusion Reactions: Previous Problems w/ Anesthesia Additional Past Anesthesia/Blood Transfusion Reaction / Comment(s): "Takes longer to wake up from anesthesia." Past Psychological History: ADD/ADHD, Anxiety, Depression Smoking Status: Former smoker Past Alcohol Use History: Occasional Past Drug Use History: None Reported - Past Family History Mother Family Medical History: Cancer Additional Family Medical History / Comment(s): lung Father Family Medical History: Asthma, COPD, Osteoarthritis (OA) Additional Family Medical History / Comment(s): Father at age 80 yrs. General Exam - General Exam Comments Initial Comments: General: Appears in no acute distress. HEAD: Normal with no signs of head trauma. EYES: PERRLA, EOMI, conjunctiva normal, no discharge. Pupils are 3 mm and equal bilaterally. ENT: Hearing grossly intact, normal oropharynx. RESPIRATORY: Clear breath sounds bilaterally. No wheezes, rales, or rhonchi. C/V: Regular rate and rhythm. S1 and S2 auscultated, no edema, peripheral pulses 2+ and intact throughout ABD: Abd is soft, nontender, nondistended EXT: Normal range of motion, no obvious deformity SKIN: No rashes or lesions observed on exposed skin. NEURO: Alert and oriented x 4. Cranial nerves II-XII intact. No focal sensory or strength deficits. NIH of 0. GCS 15. No focal sensory strength deficits. Normal cerebellar function and as evident by normal finger to nose testing, [id number] testing. Can ambulate without difficulty. Limitations: no limitations Course Vital Signs 02/04/23 02/04/23 02/04/23 09:21 11:02 12:18 Temperature 97.8 F 97.8 F 97.6 F Pulse Rate 62 58 L 60 Respiratory 18 16 16 Rate Blood Pressure 101/63 124/76 126/53 O2 Sat by Pulse 97 98 97 Oximetry 02/04/23 13:23 Temperature Pulse Rate 64 Respiratory 20 Rate Blood Pressure 131/71 O2 Sat by Pulse 99 Oximetry Medical Decision Making - Medical Decision Making Was pt. sent in by a medical professional or institution (, PA, PATTERN ROOM ATTENDANT, urgent care, hospital, or alf...) When possible be specific @ -No Did you speak to anyone other than the patient for history (EMS, parent, family, police, friend...)? What history was obtained from this source @ -No Did you review nursing and triage notes (agree or disagree)? Why? @ -I reviewed and agree with nursing and triage notes Were old charts reviewed (outside hosp., previous admission, EMS record, old EKG, old radiological studies, urgent care reports/EKG's, alf records)? Report findings @ -No old charts were reviewed Differential Diagnosis (chest pain, altered mental status, abdominal pain women, abdominal pain men, vaginal bleeding, weakness, fever, dyspnea, syncope, headache, dizziness, GI bleed, back pain, seizure, CVA, palpatations, mental health, musculoskeletal)? @ -Differential Headache: Migraine, tension, cluster, carbon monoxide, central venous thrombosis, pension karma temporal arteritis, acute closure glaucoma, intercranial hemorrhage, mastoiditis, sinusitis, head injury, this is not meant to be an all-inclusive list. EKG interpreted by me (3pts min.). @ -None done X-rays interpreted by me (1pt min.). @ -None done CT interpreted by me (1pt min.). @ -Brain CT shows no evidence of acute intracranial process. Per radiology Chiari malformation surgery is chronic and appears stable. CTA shows no evidence of acute stenosis or aneurysm. No intracranial bleed. U/S interpreted by me (1pt. min.). @ -None done What testing was considered but not performed or refused? (CT, X-rays, U/S, labs)? Why? @ -None What meds were considered but not given or refused? Why? @ -None Did you discuss the management of the patient with other professionals (professionals i.e. , PA, PATTERN ROOM ATTENDANT, lab, RT, psych nurse, social service agency director, qualitative executive researcher, teacher, court registry officer, top case assembler)? Give summary @ -No Was smoking cessation discussed for >3mins.? @ -No Was critical care preformed (if so, how long)? @ -No Were there social determinants of health that impacted care today? How? (Homelessness, low income, unemployed, alcoholism, drug addiction, transportation, low edu. Level, literacy, decrease access to med. care, [facility] [facility], rehab)? @ -No Was there de-escalation of care discussed even if they declined (Discuss DNR or withdrawal of care, Hospice)? DNR status @ -No What co-morbidities impacted this encounter? (DM, HTN, Smoking, COPD, CAD, Cancer, CVA, ARF, Chemo, Hep., AIDS, mental health diagnosis, sleep apnea, morbid obesity)? @ -None Was patient admitted / discharged? Hospital course, mention meds given and route, prescriptions, significant lab abnormalities, going to OR and other pertinent info. @ -Based on the patient's presentation and physical exam, I'm concerned for was likely migraine headache but cannot definitively rule out other intracranial process at this time. Patient is concerned regarding a possible brain aneurysm. States this one of the worst headaches of her life. Like imaging. I believe this is reasonable considering the severity of her headache. Denies any blood thinners or trauma. Patient will receive a partial migraine cocktail with IV Benadryl, Compazine, fluids. Toradol with the provided following CT imaging. We'll obtain basic labs as well. Patient was in agreement this plan. Vital signs within acceptable limits. Neuro exam normal. Patient's CT imaging reveals no obvious acute intracranial process. Labs are within acceptable limits. On reevaluation, patient still complaining of a headache. We will treat the patient with additional medications including fluids, morphine, Solu-Medrol, magnesium. She was in agreement this plan. Patient was observed and on reevaluation headache is improving. She'll be discharged home at this time. Strict return precautions discussed. She was in agreement this plan. I instructed the patient to follow up with their PCP in the next 1-3 days. I explained that the patient should return to the emergency department if they experience any worsening symptoms. Strict return precautions were discussed with the patient. The patient expressed understanding of these instructions. I answered all questions that the patient had. The patient was discharged home in good condition with their prescriptions and follow up information. Undiagnosed new problem with uncertain prognosis? @ -No Drug Therapy requiring intensive monitoring for toxicity (Heparin, Nitro, Insulin, Cardizem)? @ -No Were any procedures done? @ -No Diagnosis/symptom? @ -Headache Acute, or Chronic, or Acute on Chronic? @ -Acute Uncomplicated (without systemic symptoms) or Complicated (systemic symptoms)? @ -Complicated Side effects of treatment? @ -none Exacerbation, Progression, or Severe Exacerbation] @ -no Poses a threat to life or bodily function? @ -no - Lab Data Result diagrams: 02/04/23 10:03 02/04/23 10:03 Lab Results 06/02/04/23 02/04/23 Range/Units 10:03 10:03 10:03 WBC 9.0 (3.8-10.6) k/uL RBC 4.15 (3.80-5.40) m/uL Hgb 12.1 (11.4-16.0) gm/dL Hct 36.6 (34.0-46.0) % MCV 88.4 (80.0-100.0) fL MCH 29.2 (25.0-35.0) pg MCHC 33.0 (31.0-37.0) g/dL RDW 13.3 (11.5-15.5) % Plt Count 239 (150-450) k/uL MPV 7.9 Neutrophils % 54 % Lymphocytes % 36 % Monocytes % 6 % Eosinophils % 3 % Basophils % 0 % Neutrophils # 4.9 (1.3-7.7) k/uL Lymphocytes # 3.2 (1.0-4.8) k/uL Monocytes # 0.5 (0-1.0) k/uL Eosinophils # 0.3 (0-0.7) k/uL Basophils # 0.0 (0-0.2) k/uL PT 9.9 (9.0-12.0) sec INR 0.9 (<1.2) APTT 23.8 (22.0-30.0) sec Sodium 137 (137-145) mmol/L Potassium 4.1 (3.5-5.1) mmol/L Chloride 104 (98-107) mmol/L Carbon Dioxide 27 (22-30) mmol/L Anion Gap 6 mmol/L BUN 11 (7-17) mg/dL Creatinine 0.66 (0.52-1.04) mg/dL Est GFR (CKD-EPI)AfAm >90 (>60 ml/min/1.73 sqM) Est GFR (CKD-EPI)NonAf >90 (>60 ml/min/1.73 sqM) Glucose 85 (74-99) mg/dL Calcium 8.3 L (8.4-10.2) mg/dL Disposition Clinical Impression: Headache Disposition: HOME SELF-CARE Condition: Good Instructions (If sedation given, give patient instructions): Acute Headache ( ED) Is patient prescribed a controlled substance at d/c from ED?: No Referrals: Ihsan Ding DO [Primary Care Provider] - 1-2 days Time of Disposition: 13:05
[2023-02-04 10:09] LABS: Basophils % (A) 0 %; Eosinophils # (A) 0.3 k/uL (0-0.7); Eosinophils % (A) 3 %; HCT 36.6 % (34.0-46.0); HGB 12.1 gm/dL (11.4-16.0); Lymphocytes # (A) 3.2 k/uL (1.0-4.8); Lymphocytes % (A) 36 %; MCH 29.2 pg (25.0-35.0); MCV 88.4 fL (80.0-100.0); Mean Platelet Volume 7.9; Monocytes # (A) 0.5 k/uL (0-1.0); Monocytes % (A) 6 %; Neutrophils # (A) 4.9 k/uL (1.3-7.7); Neutrophils % (A) 54 %; Platelet Count 239 k/uL (150-450); RBC 4.15 m/uL (3.80-5.40); RDW 13.3 % (11.5-15.5)
[2023-02-04 10:20] LABS: African American GFR (CKD) >90 (>60 ml/min/1.73 sqM); Anion Gap 6 mmol/L; Blood Urea Nitrogen 11 mg/dL (7-17); Calcium 8.3 mg/dL (8.4-10.2); Carbon Dioxide 27 mmol/L (22-30); Chloride 104 mmol/L (98-107); Glucose 85 mg/dL (74-99); INR 0.9 (<1.2); Non-African American GFR(CKD) >90 (>60 ml/min/1.73 sqM); Partial Thromboplastin Time 23.8 sec (22.0-30.0); Potassium 4.1 mmol/L (3.5-5.1); Prothrombin Time 9.9 sec (9.0-12.0); Sodium 137 mmol/L (137-145)
--- NOTE | 2023-02-04 10:57 | CT ---
EXAMINATION TYPE: CT brain wo con CT DLP: 1146.6 mGycm, Automated exposure control for dose reduction was used. DATE OF EXAM: 02/04/2023 10:49 AM COMPARISON: CT brain C-spine 03/12/2020 CLINICAL INDICATION:Female, 57 years old with history of severe headache, history of arnold chiari, S evere headache since last . Hx Arnold Chiari TECHNIQUE: Brain: Multiple axial CT images of the brain were obtained without IV contrast. Coronal and sagittal reformats reviewed. FINDINGS: Brain: Extra-axial spaces: No abnormal extra-axial fluid collections. Ventricular system: Within normal limits Cerebral parenchyma: Mild cerebral volume loss in the frontal lobes. No acute intraparenchymal hemorr yasmine or mass effect. The carbajal-white junction is well differentiated. Cerebellum: Stable position of the cerebellar tonsils. Mass effect: No evidence of midline shift. Intracranial vasculature: unremarkable Soft tissues: Right frontal scalp 8 mm round density is slightly increased in size compared to repres ent a sebaceous cyst. Calvarium/osseous structures: No depressed skull fracture. Prior suboccipital decompression surgery. Paranasal sinuses and mastoid air cells: Clear Visualized orbits: Orbital contents are intact. IMPRESSION: 1. No acute intracranial process. 2. Similar postsurgical changes from Chiari I malformation with prior suboccipital decompression stefany sandrita.
--- NOTE | 2023-02-04 11:04 | CT ---
EXAMINATION TYPE: CT angio head neck CT DLP: 500.8 mGycm, Automated exposure control for dose reduction was used. DATE OF EXAM: 02/04/2023 10:55 AM COMPARISON: CT brain 02/04/2023, CT brain C-spine 03/12/2020. CLINICAL INDICATION:Female, 57 years old with history of severe headache, history of arnold chiari; P HH, Severe headache since last . Hx Arnold Chiari TECHNIQUE: Axially acquired helical CT angiogram of the head and neck was obtained with contrast util izing 65 cc of Isovue-370 administered intravenously. Axial images are supplemented with 3D reconstru ctions which were post-processed at an independent workstation. NASCET criteria used. FINDINGS: CTA HEAD: No evidence of acute intracranial hemorrhage, mass effect, or midline shift. The ventricles, sulci, a nd cisterns are unremarkable. The visualized portions of the internal carotid arteries, middle cerebral arteries, anterior cerebral arteries, and posterior cerebral arteries are patent. origin of both posterior cerebral arteri es The basilar and vertebral arteries are patent. The basilar artery is diminutive. CTA NECK: Right Carotid System: The common carotid artery and external carotid artery are patent. The carotid bifurcation demonstrate s no evidence of hemodynamically significant stenosis. The remaining portions of the internal carotid artery demonstrate normal size without significant narrowing. Left Carotid System: The common carotid artery and external carotid artery are patent. Mild atelectatic calcification at t he carotid bulb. The carotid bifurcation demonstrates no evidence of hemodynamically significant sten osis. The remaining portions of the internal carotid artery demonstrate normal size without significa nt narrowing. Vertebral arteries are patent without evidence hemodynamically significant stenosis. There is a three-vessel aortic arch. The origins of the great vessels are patent. No evidence of hemo dynamically significant stenosis. Right upper lobe 6 mm nodular density (series 401, image 9). Cervicothoracic stimulator leads identif ied. Postsurgical changes from cervical fusion and suboccipital decompression. Similar grade 1 abbey listhesis of C6 on T7. IMPRESSION: 1. No evidence of dissection of the cervical internal carotid arteries or vertebral arteries or any e vidence of significant stenosis at the carotid bifurcations. 2. No evidence of high-grade stenosis or intracranial aneurysm. 3. Right upper lobe 6 mm nodular density. Follow-up CT chest in 3-6 months is recommended. 4. Postsurgical changes.
[2023-02-04] MEDS ORDERED: KETOROLAC 15 MG/ML 1 ML VIAL IVP STA (11:15)
[2023-02-04] MEDS ORDERED: MAGNESIUM SULFATE-D5W PMX 1 GM in DEXTROSE/WATER 1 100ML.BAG IVPB ONE (11:55)
[2023-02-04] MEDS ORDERED: methylPREDNISolone SOD SUCCI 40 MG/ML 1 ML VIAL IV STA (11:55)
[2023-02-04] MEDS ORDERED: MORPHINE SULFATE 4 MG/ML SYRINGE IVP STA (11:55)
[2023-02-04 12:19] VITALS: TEMP 97.6
[2023-02-04 13:25] VITALS: BP 131/71; PULSE 64; RESP 20
== END 2023-02-04 13:29 | disposition home or self-care (01) ==
LOC: EC 09:14
DX: G93.5 Compression of brain (principal); F32.A Depression, unspecified; F41.9 Anxiety disorder, unspecified; J44.9 Chronic obstructive pulmonary disease, unspecified; E78.5 Hyperlipidemia, unspecified; K21.9 Gastro-esophageal reflux disease without esophagitis; M19.90 Unspecified osteoarthritis, unspecified site; E07.9 Disorder of thyroid, unspecified; Z79.890 Hormone replacement therapy; Z79.899 Other long term (current) drug therapy; Z87.891 Personal history of nicotine dependence; Z88.0 Allergy status to penicillin
CPT/HCPCS: 36415; 80048; 85025; 85610; 85730; 70496; 70450; 70498; 99284; 96365; 96375 ×6; 96361 ×2; J2270; J1200; J0780; J2920; J3475; J1885; Q9967

== ENCOUNTER 2023-02-10 10:20 | Emergency (ER) | payer MEDICARE, BC, OTHER ==
[2023-02-10 10:29] VITALS: RESP 16
[2023-02-10] MEDS ORDERED: KETOROLAC 15 MG/ML 1 ML VIAL IVP STA (11:07)
[2023-02-10] MEDS ORDERED: DEXAMETHASONE SOD PHOSPHATE 10 MG/ML 1 ML VIAL IVP STA (11:07)
[2023-02-10] MEDS ORDERED: METOCLOPRAMIDE 5 MG/ML 2 ML VIAL IVP STA (11:07)
[2023-02-10] MEDS ORDERED: diphenhydrAMINE 50 MG/ML 1 ML VIAL IVP STA (11:07)
[2023-02-10] MEDS ORDERED: SODIUM CHLORIDE 0.9% 1,000 ML IV STA ×2 (11:07→13:07)
--- NOTE | 2023-02-10 11:18 | ED ---
Headache HPI - General Chief Complaint: Headache Stated Complaint: headache Time Seen by Provider: 02/10/23 10:53 Source: patient, RN notes reviewed Mode of arrival: ambulatory Limitations: no limitations - History of Present Illness Initial Comments: This is a 57-year-old female who presents to the emergency department for headaches. Patient was evaluated here 6 days ago and had a complete workup including blood work and a computed tomography scan. No irregularities were found to account for her symptoms. She was discharged home after pain was co ntrolled. States that since being home headaches have continued to persist, however they have not worsened. States that they start in the back of her head and go up towards the forehead. She takes Wallace, anti-inflammatories, and a muscle relaxant with no relief in symptoms. Denies any visual changes. She does have intermittent nausea and photophobia. Denies any fevers, chills, sore throat, cough, dyspnea, chest pain, palpitations, abdominal pain, vomiting, diarrhea, or back pain. MD Complaint: headache - Related Data Home Medications Medication Instructions Recorded Confirmed Ezetimibe [Zetia] 10 mg PO HS 09/05/14 02/04/23 Levothyroxine Sodium [Synthroid] 25 mcg PO DAILY 03/13/16 02/04/23 Omeprazole 40 mg PO HS 11/13/16 02/04/23 clonazePAM [KlonoPIN] 0.5 mg PO HS 05/03/17 02/04/23 Methylphenidate HCl 20 mg PO TID 09/09/18 02/04/23 busPIRone HCL 15 mg PO BID 02/05/19 02/04/23 Atorvastatin Calcium [Lipitor] 10 mg PO HS 10/06/19 02/04/23 estradioL [Estrace] 0.5 mg PO DAILY 10/06/19 02/04/23 Citalopram Hydrobromide [CeleXA] 40 mg PO DAILY 02/09/22 02/04/23 Albuterol Sulfate [Albuterol 2 puff PO RT-QID PRN 02/04/23 02/04/23 Sulfate Hfa] Fluticasone Nasal [place] [Flonase 1 spray EA NOSTRIL BID 02/04/23 02/04/23 Nasal [place]] Fluticasone/Vilanterol [Breo 1 puff INHALATION RT-DAILY 02/04/23 02/04/23 Ellipta 100-25 Mcg Inhaler] HYDROcodone/APAP 10-325MG [[place] 1 tab PO TID PRN 02/04/23 02/04/23 10-325] Naloxone HCl [Narcan] 4 mg NASAL DIRECTED PRN 02/04/23 02/04/23 tiZANidine HCL 6 mg PO HS 02/04/23 02/04/23 Allergies Allergy/AdvReac Type Severity Reaction Status Date / Time Penicillins Allergy Childhood Verified 02/04/23 10:30 Rash Review of Systems ROS Statement: Those systems with pertinent positive or pertinent negative responses have been documented in the HPI. ROS Other: All systems not noted in ROS Statement are negative. Past Medical History Past Medical History: Asthma, COPD, GERD/Reflux, Hyperlipidemia, Osteoarthritis (OA), Syncope, Thyroid Disorder Additional Past Medical History / Comment(s): kidney stones, hypoglycemia, chronic neck and L shoulder, lower back pain. Hx L facial and L ankle fxs, sinus problems, vertigo, falls in past due to syncope, low BP at times. 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 Rectocele repair. colonoscopy, d&c Past Anesthesia/Blood Transfusion Reactions: Previous Problems w/ Anesthesia Additional Past Anesthesia/Blood Transfusion Reaction / Comment(s): "Takes lo nger to wake up from anesthesia." Past Psychological History: ADD/ADHD, Anxiety, Depression Smoking Status: Former smoker Past Alcohol Use History: Occasional Past Drug Use History: None Reported - Past Family History Mother Family Medical History: Cancer Additional Family Medical History / Comment(s): lung Father Family Medical History: Asthma, COPD, Osteoarthritis (OA) Additional Family Medical History / Comment(s): Father at age 80 yrs. General Exam Limitations: no limitations General appearance: alert, in no apparent distress Head exam: Present: atraumatic, normocephalic, normal inspection Eye exam: Present: normal appearance, PERRL, EOMI. Absent: scleral icterus, conjunctival injection, periorbital swelling Respiratory exam: Present: normal lung sounds bilaterally. Absent: respiratory distress, wheezes, rales, rhonchi, stridor Cardiovascular Exam: Present: regular rate, normal rhythm, normal heart sounds. Absent: systolic murmur, diastolic murmur, rubs, gallop, clicks Neurological exam: Present: alert, oriented X3, CN II-XII intact Psychiatric exam: Present: normal affect, normal mood Skin exam: Present: warm, dry, intact, normal color. Absent: rash Course Vital Signs 02/10/23 02/10/23 02/10/23 10:27 13:05 15:49 Temperature 97 F L 97.8 F Pulse Rate 68 60 72 Respiratory 16 16 16 Rate Blood Pressure 90/58 96/62 95/56 O2 Sat by Pulse 97 99 98 Oximetry Medical Decision Making - Medical Decision Making This is a 57-year-old female who presents to the emergency department for headaches. Was pt. sent in by a medical professional or institution? @ -No Did you speak to anyone other than the patient for history? @ -No Did you review nursing and triage notes? @ -Yes, and I agree, it is accurate with regards to the patient's symptoms. Were old charts reviewed? @ -CT scan of the brain and CTA of the brain from 02/04/23 revealing no acute findings aside from a right upper lobe lung nodule. Differential Diagnosis? @ -Differential Headache: Migraine, tension, cluster, carbon monoxide, central venous thrombosis, pension karma temporal arteritis, acute closure glaucoma, intercranial hemorrhage, mastoiditis, sinusitis, head injury, this is not meant to be an all-inclusive list. EKG interpreted by me (3pts min.)? @ -Not obtained X-rays interpreted by me (1pt min.)? @ -Not obtained CT interpreted by me (1pt min.)? @ -Not obtained U/S interpreted by me (1pt. min.)? @ -Not obtained What testing was considered but not performed? (CT, X-rays, U/S, labs)? Why? @ -None What meds were considered but not given? Why? @ -None Did you discuss the management of the patient with other professionals? @ -No Did you reconcile home meds? @ -No Was smoking cessation discussed for >3mins.? @ -No Was critical care preformed (if so, how long)? @ -No Were there social determinants of health that impacted care today? How? (Homelessness, low income, unemployed, alcoholism, drug addiction, transportation, low edu. Level, literacy, decrease access to med. care, fci, rehab)? @ -No Was there de-escalation of care discussed even if they declined? (Discuss DNR or withdrawal of care, Hospice)? @ -No What co-morbidities impacted this encounter? (DM, HTN, Smoking, COPD, CAD, Cancer, CVA, Hep., AIDS, mental health diagnosis, sleep apnea, morbid obesity)? @ -Migraines, Chiari I malformation Was patient admitted / discharged? @ -Discharged. I did obtain repeat lab work. She had an acute elevation in some of her liver enzymes, however they have been elevated in the past. She denies any abdominal pain. She was initially given a migraine cocktail consisting of Toradol, Decadron, Reglanm and Benadryl with no relief in symptoms. She was then given a dose of Dilaudid and felt much better. On reevaluation, the pain did start to return, and she felt like after another dose of pain medication she would be okay for discharge home. She was subsequently given a second dose of Dilaudid and discharged in stable condition. She is instructed to follow up with her PCP for reevaluation and she will continue to take her at home pain medications. Undiagnosed new problem with uncertain prognosis? @ -None Drug Therapy requiring intensive monitoring for toxicity (Heparin, Nitro, Insulin, Cardizem)? @ -None Were any procedures done? @ -None Diagnosis/symptom? @ -Headache Acute, or Chronic, or Acute on Chronic? @ -Acute Uncomplicated (without systemic symptoms) or Complicated (systemic symptoms)? @ -Uncomplicated Side effects of treatment? @ -None Exacerbation, Progression, or Severe Exacerbation] @ -Not applicable Poses a threat to life or bodily function? @ -No Return precautions reviewed in depth, the patient is instructed to return to the emergency department with any new, worsening, or concerning symptoms. Patient verbalized understanding. This case was discussed in detail with the attending ED physician, Dr. Naranjo. Presentation, findings, and treatment plan discussed in detail as well. - Lab Data Result diagrams: 02/10/23 11:12 02/10/23 11:12 Lab Results 02/10/23 02/10/23 02/10/23 Range/Units 11:12 11:12 14:55 WBC 9.0 (3.8-10.6) k/uL RBC 4.57 (3.80-5.40) m/uL Hgb 12.9 (11.4-16.0) gm/dL Hct 39.1 (34.0-46.0) % MCV 85.6 (80.0-100.0) fL MCH 28.2 (25.0-35.0) pg MCHC 33.0 (31.0-37.0) g/dL RDW 13.7 (11.5-15.5) % Plt Count 206 (150-450) k/uL MPV 8.5 Neutrophils % 66 % Lymphocytes % 24 % Monocytes % 5 % Eosinophils % 2 % Basophils % 0 % Neutrophils # 6.0 (1.3-7.7) k/uL Lymphocytes # 2.2 (1.0-4.8) k/uL Monocytes # 0.5 (0-1.0) k/uL Eosinophils # 0.2 (0-0.7) k/uL Basophils # 0.0 (0-0.2) k/uL Sodium 138 (137-145) mmol/L Potassium 4.2 (3.5-5.1) mmol/L Chloride 106 (98-107) mmol/L Carbon Dioxide 21 L (22-30) mmol/L Anion Gap 11 mmol/L BUN 12 (7-17) mg/dL Creatinine 0.66 (0.52-1.04) mg/dL Est GFR (CKD-EPI)AfAm >90 (>60 ml/min/1.73 sqM) Est GFR (CKD-EPI)NonAf >90 (>60 ml/min/1.73 sqM) Glucose 92 (74-99) mg/dL Calcium 8.8 (8.4-10.2) mg/dL Total Bilirubin 0.7 (0.2-1.3) mg/dL AST 47 H (14-36) U/L ALT 108 H (4-34) U/L Alkaline Phosphatase 137 H (38-126) U/L C-Reactive Protein <0.5 (<1.0) mg/dL Total Protein 7.1 (6.3-8.2) g/dL Albumin 4.2 (3.5-5.0) g/dL Heterophile Antibody Negative (Negative) Disposition Clinical Impression: Headache Disposition: HOME SELF-CARE Instructions (If sedation given, give patient instructions): Acute Headache (ED) Additional Instructions: Return to the emergency department with any new, worsening, or concerning symptoms. Continue to take your pain medications as prescribed. Follow up with your primary care provider in 1-2 days. Is patient prescribed a controlled substance at d/c from ED?: No Referrals: Ihsan Ding DO [Primary Care Provider] - 1-2 days
[2023-02-10 12:33] LABS: Basophils % (A) 0 %; Eosinophils # (A) 0.2 k/uL (0-0.7); Eosinophils % (A) 2 %; HCT 39.1 % (34.0-46.0); HGB 12.9 gm/dL (11.4-16.0); Lymphocytes # (A) 2.2 k/uL (1.0-4.8); Lymphocytes % (A) 24 %; MCH 28.2 pg (25.0-35.0); MCV 85.6 fL (80.0-100.0); Mean Platelet Volume 8.5; Monocytes # (A) 0.5 k/uL (0-1.0); Monocytes % (A) 5 %; Neutrophils % (A) 66 %; Platelet Count 206 k/uL (150-450); RBC 4.57 m/uL (3.80-5.40); RDW 13.7 % (11.5-15.5)
[2023-02-10] MEDS ORDERED: HYDROmorphone 1 MG/ML 1 ML SYRINGE IVP STA ×2 (13:00→14:23)
[2023-02-10 13:04] LABS: ALT 108 U/L (4-34); AST 47 U/L (14-36); African American GFR (CKD) >90 (>60 ml/min/1.73 sqM); Albumin 4.2 g/dL (3.5-5.0); Alkaline Phosphatase 137 U/L (38-126); Anion Gap 11 mmol/L; Blood Urea Nitrogen 12 mg/dL (7-17); C Reactive Protein <0.5 mg/dL (<1.0); Calcium 8.8 mg/dL (8.4-10.2); Carbon Dioxide 21 mmol/L (22-30); Chloride 106 mmol/L (98-107); Glucose 92 mg/dL (74-99); Non-African American GFR(CKD) >90 (>60 ml/min/1.73 sqM); Potassium 4.2 mmol/L (3.5-5.1); Sodium 138 mmol/L (137-145); Total Bilirubin 0.7 mg/dL (0.2-1.3); Total Protein 7.1 g/dL (6.3-8.2)
[2023-02-10 15:52] VITALS: BP 95/56; PULSE 72; TEMP 97.8
== END 2023-02-10 15:52 | disposition home or self-care (01) ==
LOC: EC 10:20
DX: R51.9 Headache, unspecified (principal); E78.5 Hyperlipidemia, unspecified; F32.A Depression, unspecified; F41.9 Anxiety disorder, unspecified; J44.9 Chronic obstructive pulmonary disease, unspecified; K21.9 Gastro-esophageal reflux disease without esophagitis; M19.90 Unspecified osteoarthritis, unspecified site; E07.9 Disorder of thyroid, unspecified; Z79.890 Hormone replacement therapy; Z79.899 Other long term (current) drug therapy; Z87.891 Personal history of nicotine dependence; Z88.0 Allergy status to penicillin
CPT/HCPCS: 36415; 80053; 85025; 86140; 86308; 99284; 96374; 96376; 96375 ×4; 96361 ×2; J1200; J1100; J2765; J1170; J1885

== ENCOUNTER → 2023-02-19 | Outpatient (CLI) | payer MEDICARE, BC, OTHER ==
--- NOTE | 2023-02-19 17:26 | CT ---
EXAMINATION TYPE: CT chest w con DATE OF EXAM: 02/19/2023 COMPARISON: 01/09/2013 HISTORY: lung nodule, family h/o lung CA CT DLP: 589 mGycm, Automated exposure control for dose reduction was used. CONTRAST: Performed injected with 100 mL of Isovue 300. TECHNIQUE: Axial images were obtained at 5 mm thick sections. Reconstructed images are reviewed on [employer] computer in the coronal plane. FINDINGS: Portion of the thyroid visualized is normal. There is a small area of pneumonitis in the periphery of the right upper lung field. Series 4 image 1 8. There is a 0.5 cm density within the periphery of the right mid lung. Series 4 image 29. No enlarged mediastinal or hilar adenopathy is evident. The ascending aorta diameter at the level o f the main pulmonary artery is 3.1 cm. The main pulmonary artery diameter at the bifurcation is 2.[address] sections are obtained through the upper abdomen. Small hiatal hernia is present. IMPRESSIONS: 1. 0.5 cm nodule periphery right midlung. Follow-up exam in 6 months is recommended. This should be c onfirmed as stable over the course of 2 years.
== END | disposition home or self-care (01) ==
LOC: RADCTMAIN 14:13
PROVIDERS: ATTEND Internal Medicine
DX: R91.1 Solitary pulmonary nodule (principal)
CPT/HCPCS: 71260; Q9967

== ENCOUNTER → 2023-03-08 | Outpatient (CLI) | payer BC, OTHER ==
[2023-03-08 10:17] VITALS: BP 97/58; PULSE 69; RESP 14; TEMP 98.3
--- NOTE | 2023-03-08 14:39 | P.PAINPG ---
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 Pain level is provoked at 8 /10 in intensity, constant, localized in the cervical spine, burning in character w shooting towards the BL shoulders. Pain is provoked by over activity. Pain is alleviated with PT w massage x 4 wks in Oct 2022, medications, topical , heat, ice, repositioning and rest. Patient is currently on [place], Ibu Patient denies any side effects of the medication(s), denies excessive drowsiness or sleepiness, denies suicidal ideation and reports that the current pain medication is helping to control the pain and improve activities of daily living. Patient denies any motor or sensory deficits. Patient denies any fever or night sweats, denies any change in the bowel movements or urination. Physical Examination: -Constitutional: Cooperative. Not in acute distress . - Neurologic: Cranial nerve II to XII intact. No focal neurological deficits. - Psychatric: Alert & oriented x 3. Matching mood & appropriate affect. Judgment and insight intact. - Musculoskeletal: Cervical spine: Muscle bulk/ tone/ strength in the bilateral upper extremities normal Vertebral body tenderness to palpation over Spurling test positive Distraction test positive Facet loading test positive TTP Thoracic spine Muscle bulk / tone/ strength in the bilateral paraspinal muscles normal Vertebral body tender to palpation over Facet loading test positive TTP Lumbar spine: Motor bulk/ tone/ strength lower extremities , thigh and legs : 5/5 Deep tendon reflexes : Normal Knee Jerk. Normal Ankle Jerk . Vertebral body tenderness to palpation over L4 Lumbar Facet Loading Test positive Straight Leg Raise: positive at 30 degrees right side/ left side Gaenslen's Test positive Sacral spine : Severe tenderness over the Sacroiliac joint: right side / left side Range of motion: Flexion of the lumbar spine <60 degrees Range of motion: Extension of the lumbar spine <20 degrees Gaenslen's Test positive R / L Tim test: positive right side / left side Thigh Thrust Test positive R / L Sacral Thrust Test positive R/ L Assessment and plan: Chronic neck pain secondary to cervical DDD, spondylosis with facet arthropathy without myelopathy Chronic and current use of high-risk medication (Opioids). The patient was counseled about risk of opioid use, psychological risk associated with opioids and was orally counseled to not overuse , divert or sell medications. Pt is to store medication in a safe location. The patient is counseled against driving while using narcotic medications and also not to use alcohol or any illicit recreational drugs. Patient verbalized understanding that the lack of compliance will result in failure to renew narcotic prescription(s) as well as possible discharge from the clinic Diagnoses, prognosis and treatment options including but not limited to physical therapy, surgical interventions, interventional therapies and medication management including narcotics and adjuvant medication were discussed. All patient questions answered MAPS reviewed and it was appropriate. UDS from 12/07/22 reviewed and cons istent. Prescription refill for [place] 10/325mg #90 1 RF. Add Zanaflex w 1 RF. I have spent less than 30 minutes on patient care today. Dr Castanon was available by phone for the evaluation of this patient. The time was used to review the medical records including relevant urine studies and Prescription history (MAPs), review of the available imaging, evaluation and examination of the patient, coordination of care with the medical staff and if applicable referring physicians, as well as creation of the medical record - Pain Location Bilateral Neck Non-Pharmacological Interventions: Heat, Ice Pharmacological Interventions: Scheduled Medication PQRS Narrative: Smoking Status Former smoker Narcotic Agreement Date Signed 03/08/23 Blood Pressure 97/58 Pain Intensity [Bilateral Neck 8 ] Scale Used Numeric (1 - 10) Hx Alcohol Use (MH) No Home Medications: Ambulatory Orders Ezetimibe [Zetia] 10 mg PO HS 09/05/14 Levothyroxine Sodium [Synthroid] 25 mcg PO DAILY 03/13/16 Omeprazole 40 mg PO HS 11/13/16 clonazePAM [KlonoPIN] 0.5 mg PO HS 05/03/17 Methylphenidate HCl 20 mg PO TID 09/09/18 busPIRone HCL 15 mg PO BID 02/05/19 Atorvastatin Calcium [Lipitor] 10 mg PO HS 10/06/19 estradioL [Estrace] 0.5 mg PO DAILY 10/06/19 Citalopram Hydrobromide [CeleXA] 40 mg PO DAILY 02/09/22 Albuterol Sulfate [Albuterol Sulfate Hfa] 2 puff PO RT-QID PRN 02/04/23 Fluticasone Nasal [place] [Flonase Nasal [place]] 1 spray EA NOSTRIL BID 02/04/23 Fluticasone/Vilanterol [Breo Ellipta 100-25 Mcg Inhaler] 1 puff INHALATION RT- DAILY 02/04/23 Naloxone HCl [Narcan] 4 mg NASAL DIRECTED PRN 02/04/23 Diclofenac Sodium Gel [Voltaren Gel] 100 gm TOPICAL BID 30 Days #100 gm 03/08/23 HYDROcodone/APAP 10-325MG [[place] 10-325] 1 tab PO TID PRN 30 Days #90 tab 03/08/23 HYDROcodone/APAP 10-325MG [[place] 10-325] 1 tab PO TID PRN 30 Days #90 tab 03/08/23 tiZANidine HCL 6 mg PO HS 30 Days #30 tab 03/08/23 Controlled Substance Measures - Controlled Substance Measures Is patient prescribed a controlled substance at discharge?: Yes If prescribed controlled substance>3 days was MAPS reviewed?: Yes
== END ==
LOC: PNWHC3 09:53
PROVIDERS: ATTEND Specialist
DX: M50.30 Other cervical disc degeneration, unspecified cervical region (principal); M51.36 Other intervertebral disc degeneration, lumbar region; G89.29 Other chronic pain; M47.812 Spondylosis without myelopathy or radiculopathy, cervical region; Z79.891 Long term (current) use of opiate analgesic; Z87.891 Personal history of nicotine dependence; Z88.0 Allergy status to penicillin
CPT/HCPCS: 99211

== ENCOUNTER → 2023-05-05 | Outpatient (CLI) | payer MEDICARE, OTHER ==
[2023-05-05 08:18] VITALS: BP 96/62; PULSE 76; RESP 15; TEMP 98.2
--- NOTE | 2023-05-05 15:41 | P.PAINPG ---
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 Pain level is provoked at 7 /10 in intensity, constant, localized in the cervical spine, burning in character w shooting towards the BL shoulders. Pain is provoked by over activity. Pain is alleviated with PT w massage x 4 wks in Oct 2022, medications, topical , heat, ice, repositioning and rest. Patient is currently on [place], Ibu Patient denies any side effects of the medication(s), denies excessive drowsiness or sleepiness, denies suicidal ideation and reports that the current pain medication is helping to control the pain and improve activities of daily living. Patient denies any motor or sensory deficits. Patient denies any fever or night sweats, denies any change in the bowel movements or urination. Physical Examination: -Constitutional: Cooperative. Not in acute distress . - Neurologic: Cranial nerve II to XII intact. No focal neurological deficits. - Psychatric: Alert & oriented x 3. Matching mood & appropriate affect. Judgment and insight intact. - Musculoskeletal: Cervical spine: Muscle bulk/ tone/ strength in the bilateral upper extremities normal Vertebral body tenderness to palpation over Spurling test positive Distraction test positive Facet loading test positive TTP Thoracic spine Muscle bulk / tone/ strength in the bilateral paraspinal muscles normal Vertebral body tender to palpation over Facet loading test positive TTP Lumbar spine: Motor bulk/ tone/ strength lower extremities , thigh and legs : 5/5 Deep tendon reflexes : Normal Knee Jerk. Normal Ankle Jerk . Vertebral body tenderness to palpation over L4 Lumbar Facet Loading Test positive Straight Leg Raise: positive at 30 degrees right side/ left side Gaenslen's Test positive Sacral spine : Severe tenderness over the Sacroiliac joint: right side / left side Range of motion: Flexion of the lumbar spine <60 degrees Range of motion: Extension of the lumbar spine <20 degrees Gaenslen's Test positive R / L Tim test: positive right side / left side Thigh Thrust Test positive R / L Sacral Thrust Test positive R/ L Assessment and plan: Chronic neck pain secondary to cervical DDD, spondylosis with facet arthropathy without myelopathy Chronic and current use of high-risk medication (Opioids). The patient was counseled about risk of opioid use, psychological risk associated with opioids and was orally counseled to not overuse , divert or sell medications. Pt is to store medication in a safe location. The patient is counseled against driving while using narcotic medications and also not to use alcohol or any illicit recreational drugs. Patient verbalized understanding that the lack of compliance will result in failure to renew narcotic prescription(s) as well as possible discharge from the clinic Diagnoses, prognosis and treatment options including but not limited to physical therapy, surgical interventions, interventional therapies and medication management including narcotics and adjuvant medication were discussed. All patient questions answered MAPS reviewed and it was appropriate. UDS from 12/07/22 reviewed and consistent. Prescription refill for [place] 10/325mg #90 , Diclofenac gel, Zanaflex w 1 RF. I have spent less than 30 minutes on patient care today. Dr Castanon was available by phone for the evaluation of this patient. The time was used to review the medical records including relevant urine studies and Prescription history (MAPs), review of the available imaging, evaluation and examination of the patient, coordination of care with the medical staff and if applicable referring physicians, as well as creation of the medical record PQRS Narrative: Smoking Status Former smoker Narcotic Agreement Date Signed 03/08/23 Hx Alcohol Use (MH) No Home Medications: Ambulatory Orders Ezetimibe [Zetia] 10 mg PO HS 09/05/14 Levothyroxine Sodium [Synthroid] 25 mcg PO DAILY 03/13/16 Omeprazole 40 mg PO HS 11/13/16 clonazePAM [KlonoPIN] 0.5 mg PO HS 05/03/17 Methylphenidate HCl 20 mg PO TID 09/09/18 busPIRone HCL 15 mg PO BID 02/05/19 Atorvastatin Calcium [Lipitor] 10 mg PO HS 10/06/19 estradioL [Estrace] 0.5 mg PO DAILY 10/06/19 Citalopram Hydrobromide [CeleXA] 40 mg PO DAILY 02/09/22 Albuterol Sulfate [Albuterol Sulfate Hfa] 2 puff PO RT-QID PRN 02/04/23 Fluticasone Nasal [place] [Flonase Nasal [place]] 1 spray EA NOSTRIL BID 02/04/23 Fluticasone/Vilanterol [Breo Ellipta 100-25 Mcg Inhaler] 1 puff INHALATION RT- DAILY 02/04/23 Naloxone HCl [Narcan] 4 mg NASAL DIRECTED PRN 02/04/23 Diclofenac Sodium Gel [Voltaren Gel] 100 gm TOPICAL BID 30 Days #100 gm 05/05/23 HYDROcodone/APAP 10-325MG [[place] 10-325] 1 tab PO TID PRN 30 Days #90 tab 05/05/23 HYDROcodone/APAP 10-325MG [[place] 10-325] 1 tab PO TID PRN 30 Days #90 tab 05/05/23 tiZANidine HCL 6 mg PO HS 30 Days #30 tab 05/05/23 Controlled Substance Measures - Controlled Substance Measures Is patient prescribed a controlled substance at discharge?: Yes When asked, does pt state using other controlled substances?: Yes If prescribed controlled substance>3 days was MAPS reviewed?: Yes
== END ==
LOC: PNWHC3 08:01
PROVIDERS: ATTEND Specialist
DX: M50.30 Other cervical disc degeneration, unspecified cervical region (principal); M47.812 Spondylosis without myelopathy or radiculopathy, cervical region; G89.29 Other chronic pain; Z79.891 Long term (current) use of opiate analgesic; Z87.891 Personal history of nicotine dependence; Z88.0 Allergy status to penicillin
CPT/HCPCS: 99211

== ENCOUNTER → 2023-06-30 | Outpatient (CLI) | payer MEDICARE, OTHER ==
[2023-06-30 08:11] VITALS: BP 114/62; PULSE 65; RESP 15; TEMP 98.2
--- NOTE | 2023-06-30 14:51 | P.PAINPG ---
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 Pain level is provoked at 7 /10 in intensity, constant, localized in the cervical spine, burning in character w shooting towards the back of the BL shoulders. Pain is provoked by over activity. Pain is alleviated with PT w massage x 4 wks in Oct 2022, medications, topical , heat, ice, repositioning and rest. Patient is currently on [place] 10/325mg #90, Ibu Patient denies any side effects of the medication(s), denies excessive drowsiness or sleepiness, denies suicidal ideation and reports that the current pain medication is helping to control the pain and improve activities of daily living. Patient denies any motor or sensory deficits. Patient denies any fever or night sweats, denies any change in the bowel movements or urination. Physical Examination: -Constitutional: Cooperative. Not in acute distress . - Neurologic: Cranial nerve II to XII intact. No focal neurological deficits. - Psychatric: Alert & oriented x 3. Matching mood & appropriate affect. Judgment and insight intact. - Musculoskeletal: Cervical spine: Muscle bulk/ tone/ strength in the bilateral upper extremities normal Vertebral body tenderness to palpation over Sp[place]ling test positive Distraction test positive Facet loading test positive TTP Thoracic spine Muscle bulk / tone/ strength in the bilateral paraspinal muscles normal Vertebral body tender to palpation over Facet loading test positive TTP Lumbar spine: Motor bulk/ tone/ strength lower extremities , thigh and legs : 5/5 Deep tendon reflexes : Normal Knee Jerk. Normal Ankle Jerk . Vertebral body tenderness to palpation over L4 Lumbar Facet Loading Test positive Straight Leg Raise: positive at 30 degrees right side/ left side Gaenslen's Test positive Sacral spine : Severe tenderness over the Sacroiliac joint: right side / left side Range of motion: Flexion of the lumbar spine <60 degrees Range of motion: Extension of the lumbar spine <20 degrees Gaenslen's Test positive R / L Tim test: positive right side / left side Thigh Thrust Test positive R / L Sacral Thrust Test positive R/ L Assessment and plan: Chronic neck pain secondary to cervical DDD, spondylosis with facet arthropathy without myelopathy Chronic and current use of high-risk medication (Opioids). The patient was counseled about risk of opioid use, psychological risk associated with opioids and was orally counseled to not overuse , divert or sell medications. Pt is to store medication in a safe location. The patient is counseled against driving while using narcotic medications and also not to use alcohol or any illicit recreational drugs. Patient verbalized understanding that the lack of compliance will result in failure to renew narcotic prescription(s) as well as possible discharge from the clinic Diagnoses, prognosis and treatment options including but not limited to physical therapy, surgical interventions, interventional therapies and medication management including narcotics and adjuvant medication were discussed. All patient questions answered MAPS reviewed and it was appropriate. UDS from Mar 14 pending. Prescription refill for [place] 10/325mg #90 , Diclofenac gel, Zanaflex w 1 RF. I have spent less than 30 minutes on patient care today. Dr Castanon was available by phone for the evaluation of this patient. The time was used to review the medical records including relevant urine studies and Prescription history (MAPs), review of the available imaging, evaluation and examination of the patient, coordination of care with the medical staff and if applicable referring physicians, as well as creation of the medical record PQRS Narrative: Smoking Status Former smoker Narcotic Agreement Date Signed 03/08/23 Hx Alcohol Use (MH) No Home Medications: Ambulatory Orders Ezetimibe [Zetia] 10 mg PO HS 09/05/14 Levothyroxine Sodium [Synthroid] 25 mcg PO DAILY 03/13/16 Omeprazole 40 mg PO HS 11/13/16 clonazePAM [KlonoPIN] 0.5 mg PO HS 05/03/17 Methylphenidate HCl 20 mg PO TID 09/09/18 busPIRone HCL 15 mg PO BID 02/05/19 Atorvastatin Calcium [Lipitor] 10 mg PO HS 10/06/19 estradioL [Estrace] 0.5 mg PO DAILY 10/06/19 Citalopram Hydrobromide [CeleXA] 40 mg PO DAILY 02/09/22 Albuterol Sulfate [Albuterol Sulfate Hfa] 2 puff PO RT-QID PRN 02/04/23 Fluticasone Nasal [place] [Flonase Nasal [place]] 1 spray EA NOSTRIL BID 02/04/23 Fluticasone/Vilanterol [Breo Ellipta 100-25 Mcg Inhaler] 1 puff INHALATION RT- DAILY 02/04/23 Naloxone HCl [Narcan] 4 mg NASAL DIRECTED PRN 02/04/23 Diclofenac Sodium Gel [Voltaren 1% Gel] 100 gm TOPICAL BID 30 Days #100 gm 05/05/23 HYDROcodone/APAP 10-325MG [[place] 10-325] 1 tab PO TID PRN 30 Days #90 tab 05/05/23 HYDROcodone/APAP 10-325MG [[place] 10-325] 1 tab PO TID PRN 30 Days #90 tab 05/05/23 tiZANidine HCL 6 mg PO HS 30 Days #30 tab 05/05/23 Controlled Substance Measures - Controlled Substance Measures Is patient prescribed a controlled substance at discharge?: Yes When asked, does pt state using other controlled substances?: Yes If prescribed controlled substance>3 days was MAPS reviewed?: Yes
== END ==
LOC: PNWHC3 07:33
PROVIDERS: ATTEND Specialist
DX: M50.30 Other cervical disc degeneration, unspecified cervical region (principal); M47.812 Spondylosis without myelopathy or radiculopathy, cervical region; Z79.891 Long term (current) use of opiate analgesic; Z87.891 Personal history of nicotine dependence; Z88.0 Allergy status to penicillin
CPT/HCPCS: 99211

== ENCOUNTER → 2023-08-25 | Outpatient (CLI) | payer MEDICARE, OTHER ==
[2023-08-25 08:05] VITALS: BP 96/61; PULSE 69; RESP 16; TEMP 98.5
--- NOTE | 2023-08-25 14:25 | P.PAINPG ---
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 Pain level is provoked at 8 /10 in intensity, constant, localized in the cervical spine, burning in character w shooting towards the back of the BL shoulders. Pain is provoked by over activity. Pain is alleviated with PT w massage x 4 wks in Oct 2022, medications, topical , alternating heat & ice, repositioning and rest. Patient is currently on [place] 10/325mg #90, Ibu, Voltaren gel Patient denies any side effects of the medication(s), denies excessive drowsiness or sleepiness, denies suicidal ideation and reports that the current pain medication is helping to control the pain and improve activities of daily living. Patient denies any motor or sensory deficits. Patient denies any fever or night sweats, denies any change in the bowel movements or urination. Physical Examination: -Constitutional: Cooperative. Not in acute distress . - Neurologic: Cranial nerve II to XII intact. No focal neurological deficits. - Psychatric: Alert & oriented x 3. Matching mood & appropriate affect. Judgment and insight intact. - Musculoskeletal: Cervical spine: Muscle bulk/ tone/ strength in the bilateral upper extremities normal Vertebral body tenderness to palpation over Spurling test positive Distraction test positive Facet loading test positive TTP Thoracic spine Muscle bulk / tone/ strength in the bilateral paraspinal muscles normal Vertebral body tender to palpation over Facet loading test positive TTP Lumbar spine: Motor bulk/ tone/ strength lower extremities , thigh and legs : 5/5 Deep tendon reflexes : Normal Knee Jerk. Normal Ankle Jerk . Vertebral body tenderness to palpation over L4 Lumbar Facet Loading Test positive Straight Leg Raise: positive at 30 degrees right side/ left side Gaenslen's Test positive Sacral spine : Severe tenderness over the Sacroiliac joint: right side / left side Range of motion: Flexion of the lumbar spine <60 degrees Range of motion: Extension of the lumbar spine <20 degrees Gaenslen's Test positive R / L Tim test: positive right side / left side Thigh Thrust Test positive R / L Sacral Thrust Test positive R/ L Assessment and plan: Chronic neck pain secondary to cervical DDD, spondylosis with facet arthropathy without myelopathy Chronic and current use of high-risk medication (Opioids). The patient was counseled about risk of opioid use, psychological risk associated with opioids and was orally counseled to not overuse , divert or sell medications. Pt is to store medication in a safe location. The patient is counseled against driving while using narcotic medications and also not to use alcohol or any illicit recreational drugs. Patient verbalized understanding that the lack of compliance will result in failure to renew narcotic prescription(s) as well as possible discharge from the clinic Diagnoses, prognosis and treatment options including but not limited to physical therapy, surgical interventions, interventional therapies and medication management including narcotics and adjuvant medication were discussed. All patient questions answered MAPS reviewed and it was appropriate. UDS collected 08/25/23. Prescription refill for [place] 10/325mg #90 , Diclofenac gel, Zanaflex w 1 RF. I have spent less than 30 minutes on patient care today. Dr Castanon was available by phone for the evaluation of this patient. The time was used to review the medical records including relevant urine studies and Prescription history (MAPs), review of the available imaging, evaluation and examination of the patient, coordination of care with the medical staff and if applicable referring physicians, as well as creation of the medical record PQRS Narrative: Smoking Status Former smoker Narcotic Agreement Date Signed 03/08/23 Hx Alcohol Use (MH) No Home Medications: Ambulatory Orders Ezetimibe [Zetia] 10 mg PO HS 09/05/14 Levothyroxine Sodium [Synthroid] 25 mcg PO DAILY 03/13/16 Omeprazole 40 mg PO HS 11/13/16 clonazePAM [KlonoPIN] 0.5 mg PO HS 05/03/17 Methylphenidate HCl 20 mg PO TID 09/09/18 busPIRone HCL 15 mg PO BID 02/05/19 Atorvastatin Calcium [Lipitor] 10 mg PO HS 10/06/19 estradioL [Estrace] 0.5 mg PO DAILY 10/06/19 Citalopram Hydrobromide [CeleXA] 40 mg PO DAILY 02/09/22 Albuterol Sulfate [Albuterol Sulfate Hfa] 2 puff PO RT-QID PRN 02/04/23 Fluticasone Nasal [place] [Flonase Nasal [place]] 1 spray EA NOSTRIL BID 02/04/23 Fluticasone/Vilanterol [Breo Ellipta 100-25 Mcg Inhaler] 1 puff INHALATION RT- DAILY 02/04/23 Naloxone HCl [Narcan] 4 mg NASAL DIRECTED PRN 02/04/23 Diclofenac Sodium Gel [Voltaren 1% Gel] 100 gm TOPICAL DAILY 30 Days #1 each 08/25/23 HYDROcodone/APAP 10-325MG [[place] 10-325] 1 tab PO TID PRN 30 Days #90 tab 08/25/23 HYDROcodone/APAP 10-325MG [[place] 10-325] 1 tab PO TID PRN 30 Days #90 tab 08/25/23 tiZANidine HCL 6 mg PO HS 30 Days #30 tab 08/25/23 Controlled Substance Measures - Controlled Substance Measures Is patient prescribed a controlled substance at discharge?: Yes When asked, does pt state using other controlled substances?: Yes If prescribed controlled substance>3 days was MAPS reviewed?: Yes
== END ==
LOC: PNWHC3 07:25
PROVIDERS: ATTEND Specialist
DX: M50.30 Other cervical disc degeneration, unspecified cervical region (principal); M47.816 Spondylosis without myelopathy or radiculopathy, lumbar region; M47.812 Spondylosis without myelopathy or radiculopathy, cervical region; G89.29 Other chronic pain; Z51.81 Encounter for therapeutic drug level monitoring; Z79.891 Long term (current) use of opiate analgesic; Z87.891 Personal history of nicotine dependence; Z88.0 Allergy status to penicillin
CPT/HCPCS: 80307; G0463; 99212

== ENCOUNTER → 2023-09-03 | Outpatient (CLI) | payer MEDICARE, OTHER ==
--- NOTE | 2023-09-03 12:55 | CT ---
EXAMINATION TYPE: CT chest w con DATE OF EXAM: 09/03/2023 COMPARISON: 02/19/2023 HISTORY: lung nodule CT DLP: 377.7 mGycm Automated exposure control for dose reduction was used. TECHNIQUE: CT scan of the chest is performed with IV Contrast, patient injected with 100 mL of Isovue 300. MIP Images are created on CT scanner and reviewed. 3D reconstructed images are created on an independent workstation and reviewed. FINDINGS: Small groundglass density in the right upper lobe is again seen and is stable. The 4 to 5 mm subsolid visual nodule on the right is also stable. No new or suspicious lung mass or nodule is seen. There is no abnormal airspace or interstitial density. There is no pleural effusion or pneumothorax. The great vessels the chest are normal is no mediastinal, hilar or axillary adenopathy. Limited scanning through the upper abdomen reveals no gross abnormality. No focal osseous lesions are seen. IMPRESSION: 1. 2 stable sub-6 mm right lung nodules. Lung RADS category 2 benign findings. Continue routine scree ngozi at yearly intervals if this is a high risk patient. 2. No acute cardiopulmonary disease.
== END | disposition home or self-care (01) ==
LOC: RADCTMAIN 08:30
PROVIDERS: ATTEND Internal Medicine
DX: R91.8 Other nonspecific abnormal finding of lung field (principal); R91.1 Solitary pulmonary nodule
CPT/HCPCS: 71260; Q9967

== ENCOUNTER 2023-09-18 14:39 | Emergency (ER) | payer MEDICARE, OTHER ==
[2023-09-18 15:11] VITALS: TEMP 98.3
--- NOTE | 2023-09-18 16:21 | ED ---
General Adult HPI - General Chief complaint: Headache Stated complaint: Headache Time Seen by Provider: 09/18/23 16:18 Source: patient Mode of arrival: ambulatory Limitations: no limitations - History of Present Illness Initial comments: Patient presents to the ED (patient states that she was dropped off) complaining of having a gradual onset right-sided headache for the past week or so. Patient states that her headache has become worse since yesterday. Patient states that she has a history of headaches, and she states that she has had similar head aches in the past. Patient denies trauma or injury, sudden onset of headache, LOC, fever or chills, neck pain or stiffness, focal numbness/weakness/neuro deficit, visual changes, speech difficulty, dizziness, chest pain or pressure, dyspnea, palpitations, dizziness, abdominal pain, nausea/vomiting, or any other symptoms or complaints. Patient states that she has been taking her [place] for her pain without much relief. - Related Data Home Medications Medication Instructions Recorded Confirmed Ezetimibe [Zetia] 10 mg PO HS 09/05/14 08/25/23 Levothyroxine Sodium [Synthroid] 25 mcg PO DAILY 03/13/16 08/25/23 Omeprazole 40 mg PO HS 11/13/16 08/25/23 clonazePAM [KlonoPIN] 0.5 mg PO HS 05/03/17 08/25/23 Methylphenidate HCl 20 mg PO TID 09/09/18 08/25/23 busPIRone HCL 15 mg PO BID 02/05/19 08/25/23 Atorvastatin Calcium [Lipitor] 10 mg PO HS 10/06/19 08/25/23 estradioL [Estrace] 0.5 mg PO DAILY 10/06/19 08/25/23 Citalopram Hydrobromide [CeleXA] 40 mg PO DAILY 02/09/22 08/25/23 Albuterol Sulfate [Albuterol 2 puff PO RT-QID PRN 02/04/23 08/25/23 Sulfate Hfa] Fluticasone Nasal [place] [Flonase 1 spray EA NOSTRIL BID 02/04/23 08/25/23 Nasal [place]] Fluticasone/Vilanterol [Breo 1 puff INHALATION RT-DAILY 02/04/23 08/25/23 Ellipta 100-25 Mcg Inhaler] Naloxone HCl [Narcan] 4 mg NASAL DIRECTED PRN 02/04/23 08/25/23 Previous Rx's Medication Instructions Recorded Diclofenac Sodium Gel [Voltaren 1% 100 gm TOPICAL DAILY 30 Days #1 08/25/23 Gel] each HYDROcodone/APAP 10-325MG [[place] 1 tab PO TID PRN 30 Days #90 tab 08/25/23 10-325] HYDROcodone/APAP 10-325MG [[place] 1 tab PO TID PRN 30 Days #90 tab 08/25/23 10-325] tiZANidine HCL 6 mg PO HS 30 Days #30 tab 08/25/23 HYDROcodone/APAP 10-325MG [[place] 1 tab PO TID PRN 23 Days #69 tab 08/30/23 10-325] Allergies Allergy/AdvReac Type Severity Reaction Status Date / Time Penicillins Allergy Childhood Verified 08/25/23 07:45 Rash Review of Systems ROS Statement: Those systems with pertinent positive or pertinent negative responses have been documented in the HPI. ROS Other: All systems not noted in ROS Statement are negative. Past Medical History Past Medical History: Asthma, COPD, GERD/Reflux, Hyperlipidemia, Osteoarthritis (OA), Syncope, Thyroid Disorder Additional Past Medical History / Comment(s): kidney stones, hypoglycemia, chronic neck and L shoulder, lower back pain. Hx L facial and L ankle fxs, sinus problems, vertigo, falls in past due to syncope, low BP at times. Fusion of sacrum and iliac crest-per . 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 Rectocele repair. colonoscopy, d&c Past Anesthesia/Blood Transfusion Reactions: Previous Problems w/ Anesthesia Additional Past Anesthesia/Blood Transfusion Reaction / Comment(s): "Takes longer to wake up from anesthesia." Past Psychological History: ADD/ADHD, Anxiety, Depression Smoking Status: Former smoker Past Alcohol Use History: Occasional Past Drug Use History: None Reported - Past Family History Mother Family Medical History: Cancer Additional Family Medical History / Comment(s): lung Father Family Medical History: Asthma, COPD, Osteoarthritis (OA) Additional Family Medical History / Comment(s): Father at age 80 yrs. General Exam Limitations: no limitations General appearance: alert, in no apparent distress Head exam: Present: atraumatic, normocephalic Eye exam: Present: normal appearance, PERRL, EOMI ENT exam: Present: mucous membranes moist Neck exam: Present: other (No nuchal rigidity or meningeal signs are present on exam). Absent: tenderness, meningismus Respiratory exam: Present: normal lung sounds bilaterally. Absent: respiratory distress, wheezes, rales, rhonchi, stridor Cardiovascular Exam: Present: regular rate, normal rhythm, normal heart sounds, other (Normal radial pulses bilaterally) GI/Abdominal exam: Present: soft. Absent: distended, tenderness, guarding Neurological exam: Present: alert, oriented X3, CN II-XII intact. Absent: motor sensory deficit Skin exam: Present: warm, dry, normal color Course Vital Signs 09/18/23 09/18/23 09/18/23 14:51 17:10 19:45 Temperature 98.3 F Pulse Rate 69 54 L 57 L Respiratory 16 16 16 Rate Blood Pressure 114/72 112/41 113/56 O2 Sat by Pulse 96 98 97 Oximetry - Reevaluation(s) Reevaluation #1: 09/18/23 21:48 Patient reports some improvement in her pain with the headache medications that she was given in the ED, but she is still requesting Dilaudid by name at this time. Patient appears very comfortable, as she is eating Gram crackers in her bed. I explained to her that I do not feel that narcotic pain medication is warranted for treatment of her headaches at this time. Patient was not combative when I explained this to her, and she feels comfortable being discharged home at this time. Patient was counseled about headaches, and she was clearly explained return and follow-up instructions. Patient was instructed to follow-up closely with her primary care provider. Patient feels comfortable with this plan. Medical Decision Making - Medical Decision Making Was pt. sent in by a medical professional or institution (, PA, PAGEANT DIRECTOR, urgent care, hospital, or half-way...) When possible be specific @ -No Did you speak to anyone other than the patient for history (EMS, parent, family, police, friend...)? What history was obtained from this source @ -No Did you review nursing and triage notes (agree or disagree)? Why? @ -I reviewed and agree with nursing and triage notes Were old charts reviewed (outside hosp., previous admission, EMS record, old EKG, old radiological studies, urgent care reports/EKG's, half-way records)? Report findings @ -No old charts were reviewed Differential Diagnosis (chest pain, altered mental status, abdominal pain women, abdominal pain men, vaginal bleeding, weakness, fever, dyspnea, syncope, headache, dizziness, GI bleed, back pain, seizure, CVA, palpatations, mental health, musculoskeletal)? @ -Differential Headache: Migraine, tension, cluster, intracranial mass, sinusitis, anxiety, drug-seeking, intracranial hemorrhage, this is not meant to be an all-inclusive list. ] EKG interpreted by me (3pts min.). @ -None done X-rays interpreted by me (1pt min.). @ -None done CT interpreted by me (1pt min.). @ -None done U/S interpreted by me (1pt. min.). @ -None done What testing was considered but not performed or refused? (CT, X-rays, U/S, labs)? Why? @ -None What meds were considered but not given or refused? Why? @ -None Did you discuss the management of the patient with other professionals (professionals i.e. MARLO Maldonado, PAGEANT DIRECTOR, lab, RT, psych nurse, forensic social worker, spool hauler, teacher, reserve officer, protective services case worker)? Give summary @ -No Was smoking cessation discussed for >3mins.? @ -No Was critical care preformed (if so, how long)? @ -No Were there social determinants of health that impacted care today? How? (Homelessness, low income, unemployed, alcoholism, drug addiction, transportation, low edu. Level, literacy, decrease access to med. care, residential, rehab)? @ -No Was there de-escalation of care discussed even if they declined (Discuss DNR or withdrawal of care, Hospice)? DNR status @ -No What co-morbidities impacted this encounter? (DM, HTN, Smoking, COPD, CAD, Cancer, CVA, ARF, Chemo, Hep., AIDS, mental health diagnosis, sleep apnea, morbid obesity)? @ -None Was patient admitted / discharged? Hospital course, mention meds given and route, prescriptions, significant lab abnormalities, going to OR and other pertinent info. @ -Patient reports that her headache has improved somewhat with ED treatment. Patient has red flag headache signs or symptoms. Patient has no neurological deficits. Patient is A&O x 4 and has a normal neurological exam. Patient has no nuchal rigidity or meningeal signs on exam, and she is afebrile. I do not suspect an emergent medical condition at this time. Will discharge patient home at this time. Strict return instructions were provided. Undiagnosed new problem with uncertain prognosis? @ -No Drug Therapy requiring intensive monitoring for toxicity (Heparin, Nitro, Insulin, Cardizem)? @ -No Were any procedures done? @ -No Diagnosis/symptom? @ -Headache Acute, or Chronic, or Acute on Chronic? @ -Acute on chronic Uncomplicated (without systemic symptoms) or Complicated (systemic symptoms)? @ -Uncomplicated Side effects of treatment? @ -No Exacerbation, Progression, or Severe Exacerbation? @ -No Poses a threat to life or bodily function? How? (Chest pain, [place], OR, pneumonia, PE, COPD, DKA, ARF, appy, cholecystitis, CVA, Diverticulitis, Homicidal, Suicidal, threat to staff... and all critical care pts) @ -No Disposition Clinical Impression: Headache Disposition: HOME SELF-CARE Condition: Stable Instructions (If sedation given, give patient instructions): Acute Headache (ED) Additional Instructions: Return to the ER immediately should you develop new or worsening pain, numbness or weakness, shortness of breath, a fever, neck stiffness, feeling dizzy or faint, or new or worsening symptoms. Follow-up closely with your primary care provider. Is patient prescribed a controlled substance at d/c from ED?: No Referrals: Ihsan Ding DO [Primary Care Provider] - 1-2 days Time of Disposition: 21:52
[2023-09-18] MEDS ORDERED: SODIUM CHLORIDE 0.9% 500 ML 500 ML IV STA (16:25)
[2023-09-18] MEDS ORDERED: METOCLOPRAMIDE 5 MG/ML 2 ML VIAL IVP STA (16:25)
[2023-09-18] MEDS ORDERED: KETOROLAC 15 MG/ML 1 ML VIAL IVP STA (16:25)
[2023-09-18] MEDS ORDERED: diphenhydrAMINE 50 MG/ML 1 ML VIAL IVP STA (16:25)
[2023-09-18] MEDS ORDERED: BUTALB/APAP/CAFF 50-325-40MG TAB PO STA (19:23)
[2023-09-18] MEDS ORDERED: SUMAtriptan succinate 6 MG/0.5 ML VIAL SQ STA (21:03)
[2023-09-18 22:25] VITALS: BP 131/76; PULSE 54; RESP 18
== END 2023-09-18 22:10 | disposition home or self-care (01) ==
LOC: EC 14:39
DX: R51.9 Headache, unspecified (principal); J44.89 Other specified chronic obstructive pulmonary disease; E78.5 Hyperlipidemia, unspecified; K21.9 Gastro-esophageal reflux disease without esophagitis; E07.9 Disorder of thyroid, unspecified; F90.9 Attention-deficit hyperactivity disorder, unspecified type; F41.9 Anxiety disorder, unspecified; F32.A Depression, unspecified; Z87.891 Personal history of nicotine dependence; Z79.890 Hormone replacement therapy; Z79.899 Other long term (current) drug therapy; Z88.0 Allergy status to penicillin; Z79.51 Long term (current) use of inhaled steroids
CPT/HCPCS: 99284; 96374; 96375 ×2; 96361; 96372; J3030; J1200; J2765; J1885

== ENCOUNTER → 2023-10-18 | Outpatient (CLI) | payer MEDICARE, OTHER ==
[2023-10-18 07:52] VITALS: BP 107/61; PULSE 69; RESP 15; TEMP 96.8
--- NOTE | 2023-10-18 14:06 | P.PAINPG ---
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 Pain level is provoked at 8 /10 in intensity, constant, localized in the cervical spine, sharp in character w shooting towards the back of the BLEs. Pain is provoked by over activity. Pain is alleviated with PT w massage x 4 wks in Oct 2022, medications, topical , alternating heat & ice, repositioning and rest. Patient is currently on [place] 10/325mg #90, Ibu, Voltaren gel Patient denies any side effects of the medication(s), denies excessive drowsiness or sleepiness, denies suicidal ideation and reports that the current pain medication is helping to control the pain and improve activities of daily living. Patient denies any motor or sensory deficits. Patient denies any fever or night sweats, denies any change in the bowel movements or urination. Physical Examination: -Constitutional: Cooperative. Not in acute distress . - Neurologic: Cranial nerve II to XII intact. No focal neurological deficits. - Psychatric: Alert & oriented x 3. Matching mood & appropriate affect. Judgment and insight intact. - Musculoskeletal: Cervical spine: Muscle bulk/ tone/ strength in the bilateral upper extremities normal Vertebral body tenderness to palpation over Spurling test positive Distraction test positive Facet loading test positive TTP Thoracic spine Muscle bulk / tone/ strength in the bilateral paraspinal muscles normal Vertebral body tender to palpation over Facet loading test positive TTP Lumbar spine: Motor bulk/ tone/ strength lower extremities , thigh and legs : 5/5 Deep tendon reflexes : Normal Knee Jerk. Normal Ankle Jerk . Vertebral body tenderness to palpation over L4 Lumbar Facet Loading Test positive Straight Leg Raise: positive at 30 degrees right side/ left side Gaenslen's Test positive Sacral spine : Severe tenderness over the Sacroiliac joint: right side / left side Range of motion: Flexion of the lumbar spine <60 degrees Range of motion: Extension of the lumbar spine <20 degrees Gaenslen's Test positive R / L Tim test: positive right side / left side Thigh Thrust Test positive R / L Sacral Thrust Test positive R/ L Assessment and plan: Chronic neck pain secondary to cervical DDD, spondylosis with facet arthropathy without myelopathy Chronic and current use of high-risk medication (Opioids). The patient was counseled about risk of opioid use, psychological risk associated with opioids and was orally counseled to not overuse , divert or sell medications. Pt is to store medication in a safe location. The patient is counseled against driving while using narcotic medications and also not to use alcohol or any illicit recreational drugs. Patient verbalized understanding that the lack of compliance will result in failure to renew narcotic prescription(s) as well as possible discharge from the clinic Diagnoses, prognosis and treatment options including but not limited to physical therapy, surgical interventions, interventional therapies and medication management including narcotics and adjuvant medication were discussed. All patient questions answered MAPS reviewed and it was appropriate. UDS fr 08/25/23 reviewed and consistent. Prescription refill for [place] 10/325mg #90 , Diclofenac gel, Zanaflex 2mg #30 w 1 RF. I have spent less than 30 minutes on patient care today. Dr Castanon was available by phone for the evaluation of this patient. The time was used to review the medical records including relevant urine studies and Prescription history (MAPs), review of the available imaging, evaluation and examination of the patient, coordination of care with the medical staff and if applicable referring physicians, as well as creation of the medical record - Pain Location Bilateral Lower Back Non-Pharmacological Interventions: Heat, Ice, Inactivity, Position/Reposition, Relaxation Technique Pharmacological Interventions: PRN Medication, Scheduled Medication, Topical Medication PQRS Narrative: Smoking Status Former smoker Narcotic Agreement Date Signed 03/08/23 Hx Alcohol Use (MH) No Home Medications: Ambulatory Orders Ezetimibe [Zetia] 10 mg PO HS 09/05/14 Levothyroxine Sodium [Synthroid] 25 mcg PO DAILY 03/13/16 Omeprazole 40 mg PO HS 11/13/16 clonazePAM [KlonoPIN] 0.5 mg PO HS 05/03/17 Methylphenidate HCl 20 mg PO TID@0500,1200,1700 09/09/18 busPIRone HCL 15 mg PO BID 02/05/19 Atorvastatin Calcium [Lipitor] 10 mg PO HS 10/06/19 estradioL [Estrace] 0.5 mg PO DAILY 10/06/19 Citalopram Hydrobromide [CeleXA] 40 mg PO DAILY 02/09/22 Fluticasone Nasal [place] [Flonase Nasal [place]] 1 spr EA NOSTRIL BID 02/04/23 Fluticasone/Vilanterol [Breo Ellipta 100-25 Mcg Inhaler] 1 puff INHALATION RT- DAILY 02/04/23 Naloxone HCl [Narcan] 4 mg NASAL DIRECTED PRN 02/04/23 Brexpiprazole [Rexulti] 0.25 mg PO HS 09/18/23 Cholecalciferol [Vitamin D3 (25 Mcg = 1000 Iu)] 50 mcg PO DAILY 09/18/23 Multivitamins, Thera [Multivitamin (formulary)] 1 tab PO DAILY 09/18/23 Diclofenac Sodium Gel [Voltaren 1% Gel] 2 - 4 gm TOPICAL DAILY PRN 30 Days #1 each 10/18/23 HYDROcodone/APAP 10-325MG [[place] 10-325] 1 tab PO TID 30 Days #90 tab 10/18/23 HYDROcodone/APAP 10-325MG [[place] 10-325] 1 tab PO TID PRN 30 Days #90 tab 10/18/23 tiZANidine HCL 2 mg PO HS 30 Days #30 tab 10/18/23 Controlled Substance Measures - Controlled Substance Measures Is patient prescribed a controlled substance at discharge?: Yes When asked, does pt state using other controlled substances?: Yes If prescribed controlled substance>3 days was MAPS reviewed?: Yes
== END ==
LOC: PNWHC3 07:20
PROVIDERS: ATTEND Specialist
DX: M50.30 Other cervical disc degeneration, unspecified cervical region (principal); M47.816 Spondylosis without myelopathy or radiculopathy, lumbar region; M47.812 Spondylosis without myelopathy or radiculopathy, cervical region; Z79.891 Long term (current) use of opiate analgesic; G89.29 Other chronic pain; Z88.0 Allergy status to penicillin; Z87.891 Personal history of nicotine dependence
CPT/HCPCS: 99211

== ENCOUNTER → 2023-12-13 | Outpatient (CLI) | payer MEDICARE, OTHER ==
[2023-12-13 08:20] VITALS: BP 103/67; PULSE 63; RESP 16; TEMP 97.1
--- NOTE | 2023-12-13 09:51 | P.PAINPG ---
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 Pain level is provoked at 7 /10 in intensity, constant, localized in the cervical spine, sharp in character w shooting towards the back of the BUEs R > L. Pain is provoked by over activity. Pain is alleviated with PT w massage x 4 wks in Oct 2022, medications, topical , alternating heat & ice, repositioning and rest. Patient is currently on [place] 10/325mg #90, Ibu, Voltaren gel Patient denies any side effects of the medication(s), denies excessive drowsiness or sleepiness, denies suicidal ideation and reports that the current pain medication is helping to control the pain and improve activities of daily living. Patient denies any motor or sensory deficits. Patient denies any fever or night sweats, denies any change in the bowel movements or urination. Physical Examination: -Constitutional: Cooperative. Not in acute distress . - Neurologic: Cranial nerve II to XII intact. No focal neurological deficits. - Psychatric: Alert & oriented x 3. Matching mood & appropriate affect. Judgment and insight intact. - Musculoskeletal: Cervical spine: Muscle bulk/ tone/ strength in the bilateral upper extremities normal Vertebral body tenderness to palpation over Spurling test positive Distraction test positive Facet loading test positive TTP Thoracic spine Muscle bulk / tone/ strength in the bilateral paraspinal muscles normal Vertebral body tender to palpation over Facet loading test positive TTP Lumbar spine: Motor bulk/ tone/ strength lower extremities , thigh and legs : 5/5 Deep tendon reflexes : Normal Knee Jerk. Normal Ankle Jerk . Vertebral body tenderness to palpation over L4 Lumbar Facet Loading Test positive Straight Leg Raise: positive at 30 degrees right side/ left side Gaenslen's Test positive Sacral spine : Severe tenderness over the Sacroiliac joint: right side / left side Range of motion: Flexion of the lumbar spine <60 degrees Range of motion: Extension of the lumbar spine <20 degrees Gaenslen's Test positive R / L Tim test: positive right side / left side Thigh Thrust Test positive R / L Sacral Thrust Test positive R/ L Assessment and plan: Chronic neck pain secondary to cervical DDD, spondylosis with facet arthropathy without myelopathy Chronic and current use of high-risk medication (Opioids). The patient was counseled about risk of opioid use, psychological risk associated with opioids and was orally counseled to not overuse , divert or sell medications. Pt is to store medication in a safe location. The patient is counseled against driving while using narcotic medications and also not to use alcohol or any illicit recreational drugs. Patient verbalized understanding that the lack of compliance will result in failure to renew narcotic prescription(s) as well as possible discharge from the clinic Diagnoses, prognosis and treatment options including but not limited to physical therapy, surgical interventions, interventional therapies and medication management including narcotics and adjuvant medication were discussed. All patient questions answered MAPS reviewed and it was appropriate. UDS fr 08/25/23 reviewed and consistent. Prescription refill for [place] 10/325mg #90 , Diclofenac gel, Zanaflex 2mg #30 w 1 RF. I have spent less than 30 minutes on patient care today. Dr Castanon was available by phone for the evaluation of this patient. The time was used to review the medical records including relevant urine studies and Prescription history (MAPs), review of the available imaging, evaluation and examination of the patient, coordination of care with the medical staff and if applicable referring physicians, as well as creation of the medical record PQRS Narrative: Smoking Status Former smoker Narcotic Agreement Date Signed 03/08/23 Hx Alcohol Use (MH) No Home Medications: Ambulatory Orders Ezetimibe [Zetia] 10 mg PO HS 09/05/14 Levothyroxine Sodium [Synthroid] 25 mcg PO DAILY 03/13/16 Omeprazole 40 mg PO HS 11/13/16 clonazePAM [KlonoPIN] 0.5 mg PO HS 05/03/17 Methylphenidate HCl 20 mg PO TID@0500,1200,1700 09/09/18 busPIRone HCL 15 mg PO BID 02/05/19 Atorvastatin Calcium [Lipitor] 10 mg PO HS 10/06/19 estradioL [Estrace] 0.5 mg PO DAILY 10/06/19 Citalopram Hydrobromide [CeleXA] 40 mg PO DAILY 02/09/22 Fluticasone Nasal [place] [Flonase Nasal [place]] 1 spr EA NOSTRIL BID 02/04/23 Fluticasone/Vilanterol [Breo Ellipta 100-25 Mcg Inhaler] 1 puff INHALATION RT- DAILY 02/04/23 Naloxone HCl [Narcan] 4 mg NASAL DIRECTED PRN 02/04/23 Brexpiprazole [Rexulti] 0.25 mg PO HS 09/18/23 Cholecalciferol [Vitamin D3 (25 Mcg = 1000 Iu)] 50 mcg PO DAILY 09/18/23 Multivitamins, Thera [Multivitamin (formulary)] 1 tab PO DAILY 09/18/23 Diclofenac Sodium Gel [Voltaren 1% Gel] 2 - 4 gm TOPICAL DAILY PRN 30 Days #1 each 12/13/23 HYDROcodone/APAP 10-325MG [[place] 10-325] 1 tab PO TID 30 Days #90 tab 12/13/23 HYDROcodone/APAP 10-325MG [[place] 10-325] 1 tab PO TID PRN 30 Days #90 tab 12/13/23 tiZANidine HCL 2 mg PO HS 30 Days #30 tab 12/13/23 Controlled Substance Measures - Controlled Substance Measures Is patient prescribed a controlled substance at discharge?: Yes When asked, does pt state using other controlled substances?: Yes If prescribed controlled substance>3 days was MAPS reviewed?: Yes
== END ==
LOC: PNWHC3 07:27
PROVIDERS: ATTEND Specialist
DX: M50.30 Other cervical disc degeneration, unspecified cervical region (principal); M47.812 Spondylosis without myelopathy or radiculopathy, cervical region; G89.29 Other chronic pain; Z79.891 Long term (current) use of opiate analgesic; Z87.891 Personal history of nicotine dependence; Z88.0 Allergy status to penicillin
CPT/HCPCS: 99211

== ENCOUNTER 2024-02-03 08:01 | Inpatient (IN) | payer MEDICARE, OTHER ==
[2024-02-03] MEDS: MORPHINE SULFATE 4 MG/ML SYRINGE IVP STA ×2 (08:36→09:34)
[2024-02-03] MEDS: SODIUM CHLORIDE 0.9% 1,000 ML IV STA ×3 (08:36→14:07)
[2024-02-03 08:46] LABS: Appearance,Urine Clear (Clear); Bilirubin,Urine Negative (Negative); Blood,Urine Negative (Negative); Color,Urine Colorless; Glucose,Urine (UA) Negative (Negative); Ketones,Urine Negative (Negative); Leukocyte Esterase,Urine Negative (Negative); Nitrite,Urine Negative (Negative); PH, Urine 6.5 (5.0-8.0); Protein,Urine Negative (Negative); Specific Gravity,Urine 1.001 (1.001-1.035); Urobilinogen,Urine <2.0 mg/dL (<2.0)
[2024-02-03 08:54] LABS: Basophils # (A) 0.1 k/uL (0-0.2); Basophils % (A) 0 %; Eosinophils # (A) 0.7 k/uL (0-0.7); Eosinophils % (A) 4 %; HCT 37.8 % (34.0-46.0); Lymphocytes # (A) 2.7 k/uL (1.0-4.8); Lymphocytes % (A) 16 %; MCH 28.5 pg (25.0-35.0); MCHC 31.7 g/dL (31.0-37.0); Mean Platelet Volume 8.6; Monocytes % (A) 6 %; Neutrophils # (A) 12.1 k/uL (1.3-7.7); Neutrophils % (A) 72 %; Platelet Count 259 k/uL (150-450); RDW 13.8 % (11.5-15.5); WBC 16.9 k/uL (3.8-10.6)
[2024-02-03 08:58] LABS: ALT 14 U/L (4-34); AST 20 U/L (14-36); African American GFR (CKD) >90 (>60 ml/min/1.73 sqM); Albumin 4.1 g/dL (3.5-5.0); Alkaline Phosphatase 84 U/L (38-126); Amylase 37 U/L (30-110); Anion Gap 5 mmol/L; Blood Urea Nitrogen 6 mg/dL (7-17); Calcium 8.7 mg/dL (8.4-10.2); Carbon Dioxide 26 mmol/L (22-30); Chloride 107 mmol/L (98-107); Glucose 103 mg/dL (74-99); Lipase 59 U/L (23-300); Non-African American GFR(CKD) >90 (>60 ml/min/1.73 sqM); Potassium 3.9 mmol/L (3.5-5.1); Sodium 138 mmol/L (137-145); Total Bilirubin 0.7 mg/dL (0.2-1.3); Total Protein 6.7 g/dL (6.3-8.2)
[2024-02-03 09:02] LABS: INR 0.9 (<1.2); Partial Thromboplastin Time 25.2 sec (22.0-30.0); Prothrombin Time 9.7 sec (10.0-12.5)
--- NOTE | 2024-02-03 09:28 | ED ---
General Adult HPI - General Chief complaint: Abdominal Pain Stated complaint: abd pain Time Seen by Provider: 02/03/24 08:20 Source: patient, RN notes reviewed, old records reviewed Mode of arrival: ambulatory Limitations: no limitations - History of Present Illness Initial comments: Patient is a 58-year-old female who presents emergency department complaining of abdominal pain. Patient states that has been ongoing for approximately 2 days. States it is across the lower abdomen. Denies nausea, vomiting, diarrhea or constipation. Does endorse some increased urinary frequency. Concerned it may be a UTI. Denies any radiation of the pain. Presents for further evaluation at this time. No known history of abdominal surgeries in the past. Does have a history of kidney stones. - Related Data Home Medications Medication Instructions Recorded Confirmed Ezetimibe [Zetia] 10 mg PO HS 09/05/14 02/03/24 Levothyroxine Sodium [Synthroid] 25 mcg PO DAILY 03/13/16 02/03/24 Omeprazole 40 mg PO HS 11/13/16 02/03/24 clonazePAM [KlonoPIN] 0.25 mg PO HS 05/03/17 02/03/24 Methylphenidate HCl 20 mg PO TID@0500,1200,1700 09/09/18 02/03/24 busPIRone HCL 15 mg PO BID 02/05/19 02/03/24 Atorvastatin Calcium [Lipitor] 10 mg PO HS 10/06/19 02/03/24 estradioL [Estrace] 0.5 mg PO DAILY 10/06/19 02/03/24 Citalopram Hydrobromide [CeleXA] 40 mg PO DAILY 02/09/22 02/03/24 Fluticasone Nasal [place] [Flonase 1 spr EA NOSTRIL BID 02/04/23 02/03/24 Nasal [place]] Naloxone HCl [Narcan] 4 mg NASAL DIRECTED PRN 02/04/23 02/03/24 Brexpiprazole [Rexulti] 0.25 mg PO HS 09/18/23 02/03/24 Cholecalciferol [Vitamin D3 (25 50 mcg PO DAILY 09/18/23 02/03/24 Mcg = 1000 Iu)] Multivitamins, Thera [Multivitamin 1 tab PO DAILY 09/18/23 02/03/24 (formulary)] Albuterol Sulfate [Albuterol 2 puff PO RT-Q6H PRN 02/03/24 02/03/24 Sulfate Hfa] Cetirizine HCl [Zyrtec] 10 mg PO HS 02/03/24 02/03/24 Previous Rx's Medication Instructions Recorded Diclofenac Sodium Gel [Voltaren 1% 2 - 4 gm TOPICAL DAILY PRN 30 Days 12/13/23 Gel] #1 each HYDROcodone/APAP 10-325MG [[place] 1 tab PO TID 30 Days #90 tab 12/13/23 10-325] tiZANidine HCL 2 mg PO HS 30 Days #30 tab 12/13/23 Allergies Allergy/AdvReac Type Severity Reaction Status Date / Time Penicillins Allergy Childhood Verified 02/03/24 11:19 Rash Review of Systems ROS Statement: Those systems with pertinent positive or pertinent negative responses have been documented in the HPI. Review of Systems: CONST: Denies fever EYES: Denies blurry vision ENT: Denies nasal congestion C/V: Denies Chest pain RESP: Denies shortness of breath GI: Endorses lower abdominal pain : Denies dysuria SKIN: Denies rash. MSK: Denies joint pain. NEURO: Denies headache ROS Other: All systems not noted in ROS Statement are negative. Past Medical History Past Medical History: Asthma, COPD, GERD/Reflux, Hyperlipidemia, Osteoarthritis (OA), Syncope, Thyroid Disorder Additional Past Medical History / Comment(s): kidney stones, hypoglycemia, chronic neck and L shoulder, lower back pain. Hx L facial and L ankle fxs, sinus problems, vertigo, falls in past due to syncope, low BP at times. 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 Rectocele repair. colonoscopy, d&c Past Anesthesia/Blood Transfusion Reactions: Previous Problems w/ Anesthesia Additional Past Anesthesia/Blood Transfusion Reaction / Comment(s): "Takes longer to wake up from anesthesia." Past Psychological History: ADD/ADHD, Anxiety, Depression Smoking Status: Current every day smoker Past Alcohol Use History: None Reported Past Drug Use History: None Reported - Past Family History Mother Family Medical History: Cancer Additional Family Medical History / Comment(s): lung Father Family Medical History: Asthma, COPD, Osteoarthritis (OA) Additional Family Medical History / Comment(s): Father at age 80 yrs. General Exam - General Exam Comments Initial Comments: General: Appears in mild distress secondary to pain. HEAD: Normal with no signs of head trauma. EYES: EOMI. ENT: Hearing grossly intact, normal oropharynx. RESPIRATORY: Clear breath sounds bilaterally. No wheezes, rales, or rhonchi. C/V: Regular rate and rhythm. S1 and S2 auscultated, peripheral pulses 2+ and intact throughout ABD: Abdomen is soft, nondistended. Tender to palpation in the bilateral lower quadrants. No guarding or rebound tenderness. No peritoneal signs. EXT: No obvious deformity. SKIN: No rashes or lesions observed on exposed skin. NEURO: Alert and oriented x 4. Limitations: no limitations Course Vital Signs 02/03/24 02/03/24 02/03/24 08:05 11:22 13:01 Temperature 98.4 F Pulse Rate 70 65 66 Respiratory 18 16 16 Rate Blood Pressure 106/66 88/61 89/59 O2 Sat by Pulse 98 97 94 L Oximetry 02/03/24 14:18 Temperature Pulse Rate 57 L Respiratory 16 Rate Blood Pressure 97/37 O2 Sat by Pulse 94 L Oximetry Medical Decision Making - Medical Decision Making Was pt. sent in by a medical professional or institution (, PA, MIRROR SILVERER, urgent care, hospital, or retirement...) When possible be specific @ -No Did you speak to anyone other than the patient for history (EMS, parent, family, police, friend...)? What history was obtained from this source @ -No Did you review nursing and triage notes (agree or disagree)? Why? @ -I reviewed and agree with nursing and triage notes Were old charts reviewed (outside hosp., previous admission, EMS record, old EKG, old radiological studies, urgent care reports/EKG's, retirement records)? Report findings @ -No old charts were reviewed Differential Diagnosis (chest pain, altered mental status, abdominal pain women, abdominal pain men, vaginal bleeding, weakness, fever, dyspnea, syncope, headache, dizziness, GI bleed, back pain, seizure, CVA, palpatations, mental health, musculoskeletal)? @ -Differential Abdominal Pain Women: Appendicitis, Cholecystitis, diverticulosis, ischemic bowel, pancreatitis, hepatitis, UTI, gastroenteritis, AAA, incarcerated hernia, bowel obstruction, constipation, inflammatory bowel, hepatitis, peptic ulcer disease, splenic infarction, perforated viscus, vulvitis, ovarian torsion, PID, kidney stone, placenta abruption, this is not meant to be an all-inclusive list EKG interpreted by me (3pts min.). @ -None done X-rays interpreted by me (1pt min.). @ -None done CT interpreted by me (1pt min.). @ -CT imaging shows diverticulitis with concern for possible intramural abscess. U/S interpreted by me (1pt. min.). @ -None done What testing was considered but not performed or refused? (CT, X-rays, U/S, labs)? Why? @ -None What meds were considered but not given or refused? Why? @ -None Did you discuss the management of the patient with other professionals (professionals i.e. , PA, MIRROR SILVERER, lab, RT, psych nurse, social services, elect equip maint eng, teacher, articulation officer, bottle caser)? Give summary @ - I spoke with on-call surgeon, Dr. Alvarenga who is in agreement the admission for complicated diverticulitis. Was smoking cessation discussed for >3mins.? @ -No Was critical care preformed (if so, how long)? @ -No Were there social determinants of health that impacted care today? How? (H omelessness, low income, unemployed, alcoholism, drug addiction, transportation, low edu. Level, literacy, decrease access to med. care, correction, rehab)? @ -No Was there de-escalation of care discussed even if they declined (Discuss DNR or withdrawal of care, Hospice)? DNR status @ -No What co-morbidities impacted this encounter? (DM, HTN, Smoking, COPD, CAD, Cancer, CVA, ARF, Chemo, Hep., AIDS, mental health diagnosis, sleep apnea, morbid obesity)? @ -None Was patient admitted / discharged? Hospital course, mention meds given and route, prescriptions, significant lab abnormalities, going to OR and other pertinent info. @ -Based on patient's presentation and physical exam, presents emergency department complaining of abdominal pain. We will obtain abdominal workup, CT abdomen pelvis. Patient be symptomatically treat with IV fluids and pain medications. Patient was in agreement this plan. Vital signs within acceptable limits. Laboratory studies remarkable for mild leukocytosis of 16.9. Remainder the labs including UA unremarkable. At this time, I did recommend CT of the abdomen pelvis which patient was in agreement with. Given additional dose of analgesia medication. CT imaging shows diverticulitis with concern for possible intramural abscess. Discussed results with patient. She will be started on IV levofloxacin and Flagyl as well as IV fluids. She will be admitted to the hospital. I spoke with on-call surgeon, Dr. Alvarenga who is in agreement the admission for complicated diverticulitis. Undiagnosed new problem with uncertain prognosis? @ -No Drug Therapy requiring intensive monitoring for toxicity (Heparin, Nitro, Insulin, Cardizem)? @ -No Were any procedures done? @ -No Diagnosis/symptom? @ -Complicated diverticulitis Acute, or Chronic, or Acute on Chronic? @ -Acute Uncomplicated (without systemic symptoms) or Complicated (systemic symptoms)? @ -Complicated Side effects of treatment? @ -None Exacerbation, Progression, or Severe Exacerbation] @ -No Poses a threat to life or bodily function? @ -Yes - Lab Data Result diagrams: 02/03/24 08:35 02/03/24 08:35 Lab Results 02/03/24 02/03/24 02/03/24 Range/Units 08:35 08:35 08:35 WBC 16.9 H (3.8-10.6) k/uL RBC 4.20 (3.80-5.40) m/uL Hgb 12.0 (11.4-16.0) gm/dL Hct 37.8 (34.0-46.0) % MCV 90.0 (80.0-100.0) fL MCH 28.5 (25.0-35.0) pg MCHC 31.7 (31.0-37.0) g/dL RDW 13.8 (11.5-15.5) % Plt Count 259 (150-450) k/uL MPV 8.6 Neutrophils % 72 % Lymphocytes % 16 % Monocytes % 6 % Eosinophils % 4 % Basophils % 0 % Neutrophils # 12.1 H (1.3-7.7) k/uL Lymphocytes # 2.7 (1.0-4.8) k/uL Monocytes # 1.0 (0-1.0) k/uL Eosinophils # 0.7 (0-0.7) k/uL Basophils # 0.1 (0-0.2) k/uL PT 9.7 L (10.0-12.5) sec INR 0.9 (<1.2) APTT 25.2 (22.0-30.0) sec Sodium 138 (137-145) mmol/L Potassium 3.9 (3.5-5.1) mmol/L Chloride 107 (98-107) mmol/L Carbon Dioxide 26 (22-30) mmol/L Anion Gap 5 mmol/L BUN 6 L (7-17) mg/dL Creatinine 0.62 (0.52-1.04) mg/dL Est GFR (CKD-EPI)AfAm >90 (>60 ml/min/1.73 sqM) Est GFR (CKD-EPI)NonAf >90 (>60 ml/min/1.73 sqM) Glucose 103 H (74-99) mg/dL Plasma Lactic Acid [place] (0.7-2.0) mmol/L Calcium 8.7 (8.4-10.2) mg/dL Total Bilirubin 0.7 (0.2-1.3) mg/dL AST 20 (14-36) U/L ALT 14 (4-34) U/L Alkaline Phosphatase 84 (38-126) U/L Total Protein 6.7 (6.3-8.2) g/dL Albumin 4.1 (3.5-5.0) g/dL Amylase 37 (30-110) U/L Lipase 59 (23-300) U/L Urine Color Urine Appearance (Clear) Urine pH (5.0-8.0) Ur Specific [place] (1.001-1.035) Urine Protein (Negative) Urine Glucose (UA) (Negative) Urine Ketones (Negative) Urine Blood (Negative) Urine Nitrite (Negative) Urine Bilirubin (Negative) Urine Urobilinogen (<2.0) mg/dL Ur Leukocyte Esterase (Negative) 02/03/24 02/03/24 Range/Units 08:35 08:35 WBC (3.8-10.6) k/uL RBC (3.80-5.40) m/uL Hgb (11.4-16.0) gm/dL Hct (34.0-46.0) % MCV (80.0-100.0) fL MCH (25.0-35.0) pg MCHC (31.0-37.0) g/dL RDW (11.5-15.5) % Plt Count (150-450) k/uL MPV Neutrophils % % Lymphocytes % % Monocytes % % Eosinophils % % Basophils % % Neutrophils # (1.3-7.7) k/uL Lymphocytes # (1.0-4.8) k/uL Monocytes # (0-1.0) k/uL Eosinophils # (0-0.7) k/uL Basophils # (0-0.2) k/uL PT (10.0-12.5) sec INR (<1.2) APTT (22.0-30.0) sec Sodium (137-145) mmol/L Potassium (3.5-5.1) mmol/L Chloride (98-107) mmol/L Carbon Dioxide (22-30) mmol/L Anion Gap mmol/L BUN (7-17) mg/dL Creatinine (0.52-1.04) mg/dL Est GFR (CKD-EPI)AfAm (>60 ml/min/1.73 sqM) Est GFR (CKD-EPI)NonAf (>60 ml/min/1.73 sqM) Glucose (74-99) mg/dL Plasma Lactic Acid [place] 1.5 (0.7-2.0) mmol/L Calcium (8.4-10.2) mg/dL Total Bilirubin (0.2-1.3) mg/dL AST (14-36) U/L ALT (4-34) U/L Alkaline Phosphatase (38-126) U/L Total Protein (6.3-8.2) g/dL Albumin (3.5-5.0) g/dL Amylase (30-110) U/L Lipase (23-300) U/L Urine Color Colorless Urine Appearance Clear (Clear) Urine pH 6.5 (5.0-8.0) Ur Specific [place] 1.001 (1.001-1.035) Urine Protein Negative (Negative) Urine Glucose (UA) Negative (Negative) Urine Ketones Negative (Negative) Urine Blood Negative (Negative) Urine Nitrite Negative (Negative) Urine Bilirubin Negative (Negative) Urine Urobilinogen <2.0 (<2.0) mg/dL Ur Leukocyte Esterase Negative (Negative) Disposition Clinical Impression: Diverticulitis of large intestine with complication, Abdominal pain Disposition: ADMITTED IP TO THIS HOSP Condition: Serious Time of Disposition: 11:35
--- NOTE | 2024-02-03 10:15 | CT ---
EXAMINATION TYPE: CT abdomen pelvis w con DATE OF EXAM: 02/03/2024 COMPARISON: 04/01/2022 HISTORY: 58-year-old female Lower abdominal pain x several days TECHNIQUE: Contiguous axial scanning of the abdomen and pelvis following administration of 100 ml Iso michael 300 IV contrast. Delayed images through the kidneys and coronal/sagittal reconstructions perform ed. CT DLP: 1059.6 mGycm Automated exposure control for dose reduction was used. FINDINGS: Heart limits of normal in size though pericardial effusion. Strandy atelectasis lower lungs . Liver shows no focal lesion. Slightly prominent bile duct at 8 mm likely due to postcholecystectomy s tatus. Portal venous system is patent. Adrenal glands, kidneys, spleen, and mildly atrophic pancreas show no gross abnormality. 2.0 cm diver ticulum of the third portion of the duodenum projecting up into the pancreatic head region. Postsurgical change at the GE junction. A small portion of the fundoplication wrap appears to have he rniated up above the diaphragmatic hiatus. No dilated small bowel or free air. Some scattered prominent fluid-filled small bowel loops in the mi dabdomen probably transient. No mesenteric or retroperitoneal lymphadenopathy. Mild stool burden. Left-sided colonic diverticulosis, greatest in the sigmoid colon. There is focal m oderate edematous wall thickening along the mid sigmoid colon with moderate pericolonic inflammatory fat stranding and mild tracking of fluid into the pelvis. No free air seen. Small hypodense areas along the wall of the colon measuring up to 1.8 cm for which surveillance follo w-up is recommended. Bladder is urine distended. Uterus surgically absent. Neither ovary clearly identified. Numerous pelv ic phleboliths. No pelvic lymphadenopathy. Bones: Status post L4-S1 posterior lumbar fusion with corresponding laminectomies. Foraminotomy partida es on the right. IMPRESSION: 1. EXAM POSITIVE FOR ACUTE DIVERTICULITIS ALONG THE MIDSIGMOID COLON. GIVEN THE DEGREE OF MODERATE I NFLAMMATION, A FEW HYPODENSE AREAS ALONG THE WALL OF THE COLON MEASURING UP TO 1.8 CM (POSSIBLE EARLY INTRAMURAL ABSCESS), AND THE MILD FREE FLUID TRACKING INTO THE PELVIS, CONSIDER SHORT INTERVAL CT FO LLOW-UP TO ENSURE ADEQUATE RESOLUTION WITH TREATMENT. NO FREE AIR OR DISCRETE ABSCESS AT THIS TIME. 2. PREVIOUS MONTY FUNDOPLICATION. THERE IS A SMALL RECURRENT HIATAL HERNIA INVOLVING THE MONTY WRA P. CORRELATE FOR ANY SYMPTOMS.
[2024-02-03] MEDS: HYDROmorphone 0.5 MG/0.5 ML SYRINGE IVP STA (10:49)
[2024-02-03] MEDS: LEVOFLOXACIN 500MG-D5W PMX 500 MG in DEXTROSE/WATER 1 100ML.BAG IVPB SCH (10:55)
[2024-02-03] MEDS: metroNIDAZOLE-NS PMX 500 MG in SALINE 1 100ML.BAG IVPB SCH (11:22)
[2024-02-03] MEDS ORDERED: NALOXONE 0.4 MG/ML 1 ML VIAL IV PRN (11:41)
[2024-02-03] MEDS ORDERED: ONDANSETRON 4 MG/2 ML VIAL IVP PRN (11:41)
--- NOTE | 2024-02-03 13:55 | P.GSHP ---
History of Present Illness H&P Date: 02/03/24 CHIEF COMPLAINT: Abdominal pain HISTORY OF PRESENT ILLNESS: This is a 58-year-old female who presented with left lower quadrant abdominal pain x 2 days. She denies any nausea or vomiting. She reports having regular bowel movements. Her past surgical history includes hiatal hernia repair and hysterectomy. Patient had CT scan abdomen pelvis completed that reported acute diverticulitis along the mid sigmoid colon and concerns of possible early intramural abscess. No free air or discrete abscess seen at this time. Patient seen and examined with Dr. 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 REVIEW OF SYSTEMS: CONSTITUTIONAL: Denies fever or chills. HEENT: Denies blurred vision, vision changes, or eye pain. Denies hemoptysis CARDIOVASCULAR: Denies chest pain or pressure. RESPIRATORY: No shortness of breath. GASTROINTESTINAL: See HPI for pertinent findings HEMATOLOGIC: Denies bleeding disorders. GENITOURINARY: Denies any blood in urine or increased urinary frequency. SKIN: Denies pruitis. Denies rash. PHYSICAL EXAM: VITAL SIGNS: Reviewed GENERAL: Well-developed in no acute distress. HEENT: No sclera icterus. Extraocular movements grossly intact. Moist buccal mucosa. Head is atraumatic, normocephalic. No nasal drainage. ABDOMEN: Soft. Nondistended. Tenderness to palpation left lower quadrant NEUROLOGIC: Alert and oriented. Cranial nerves II through XII grossly intact. LABORATORY DATA: WBC 16.9 Hgb 12 platelets 259 INR 0.9 Sodium is 138 potassium 3.9 creatinine 0.62 Lactic acid 1.5 Urinalysis negative for infection IMAGING: CT scan abdomen pelvis reports acute diverticulitis along the mid sigmoid colon given the degree of moderate inflammation a few hypodense areas along the wall of the colon possible early intramural abscess. No free air or discrete abscess at this time. Previous Niesen complication there is a small recurrent hiatal hernia involving the Niesen wrap. ASSESSMENT: 1. Acute diverticulitis of the mid sigmoid colon with possible early intramural abscess 2. Hypotensive PLAN: -Keep patient n.p.o. -Repeat labs in a.m. -Continue IV antibiotics, Levaquin and Flagyl -Continue IV fluids. Patient receiving fluid bolus -Continue pain management -Repeat CT scan abdomen and pelvis on Wednesday for further evaluation of the diverticular intramural abscess -Consult medicine service for medical management -DVT prophylaxis subcu heparin Physician Wildlife Ecologist note has been reviewed by physician. Signing provider agrees with the documented findings, assessment, and plan of care. Past Medical History Past Medical History: Asthma, COPD, GERD/Reflux, Hyperlipidemia, Osteoarthritis (OA), Syncope, Thyroid Disorder Additional Past Medical History / Comment(s): kidney stones, hypoglycemia, chronic neck and L shoulder, lower back pain. Hx L facial and L ankle fxs, sinus problems, vertigo, falls in past due to syncope, low BP at times. Fusion of sacrum and iliac crest-per . 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 Rectocele repair. colonoscopy, d&c Past Anesthesia/Blood Transfusion Reactions: Previous Problems w/ Anesthesia Additional Past Anesthesia/Blood Transfusion Reaction / Comment(s): "Takes longer to wake up from anesthesia." Past Psychological History: ADD/ADHD, Anxiety, Depression Smoking Status: Current every day smoker Past Alcohol Use History: None Reported Past Drug Use History: None Reported - Past Family History Mother Family Medical History: Cancer Additional Family Medical History / Comment(s): lung Father Family Medical History: Asthma, COPD, Osteoarthritis (OA) Additional Family Medical History / Comment(s): Father at age 80 yrs. Medications and Allergies Home Medications Medication Instructions Recorded Confirmed Type Ezetimibe [Zetia] 10 mg PO HS 09/05/14 02/03/24 History Levothyroxine Sodium [Synthroid] 25 mcg PO DAILY 03/13/16 02/03/24 History Omeprazole 40 mg PO HS 11/13/16 02/03/24 History clonazePAM [KlonoPIN] 0.25 mg PO HS 05/03/17 02/03/24 History Methylphenidate HCl 20 mg PO TID@0500,1200,1700 09/09/18 02/03/24 History busPIRone HCL 15 mg PO BID 02/05/19 02/03/24 History Atorvastatin Calcium [Lipitor] 10 mg PO HS 10/06/19 02/03/24 History estradioL [Estrace] 0.5 mg PO DAILY 10/06/19 02/03/24 History Citalopram Hydrobromide [CeleXA] 40 mg PO DAILY 02/09/22 02/03/24 History Fluticasone Nasal [place] [Flonase 1 spr EA NOSTRIL BID 02/04/23 02/03/24 History Nasal [place]] Naloxone HCl [Narcan] 4 mg NASAL DIRECTED PRN 02/04/23 02/03/24 History Brexpiprazole [Rexulti] 0.25 mg PO HS 09/18/23 02/03/24 History Cholecalciferol [Vitamin D3 (25 50 mcg PO DAILY 09/18/23 02/03/24 History Mcg = 1000 Iu)] Multivitamins, Thera [Multivitamin 1 tab PO DAILY 09/18/23 02/03/24 History (formulary)] Diclofenac Sodium Gel [Voltaren 1% 2 - 4 gm TOPICAL DAILY PRN 30 Days 12/13/23 02/03/24 Rx Gel] #1 each HYDROcodone/APAP 10-325MG [[place] 1 tab PO TID 30 Days #90 tab 12/13/23 02/03/24 Rx 10-325] tiZANidine HCL 2 mg PO HS 30 Days #30 tab 12/13/23 02/03/24 Rx Albuterol Sulfate [Albuterol 2 puff PO RT-Q6H PRN 02/03/24 02/03/24 History Sulfate Hfa] Cetirizine HCl [Zyrtec] 10 mg PO HS 02/03/24 02/03/24 History Allergies Allergy/AdvReac Type Severity Reaction Status Date / Time Penicillins Allergy Childhood Verified 02/03/24 11:19 Rash Surgical - Exam Vital Signs Temp Pulse Resp BP Pulse Ox 98.4 F 70 18 106/66 98 02/03/24 08:05 02/03/24 08:05 02/03/24 08:05 02/03/24 08:05 02/03/24 08:05 Results - Labs 02/03/24 08:35 02/03/24 08:35 Abnormal Lab Results - Last 24 Hours (Table) 02/03/24 02/03/24 02/03/24 Range/Units 08:35 08:35 08:35 WBC 16.9 H (3.8-10.6) k/uL Neutrophils # 12.1 H (1.3-7.7) k/uL PT 9.7 L (10.0-12.5) sec BUN 6 L (7-17) mg/dL Glucose 103 H (74-99) mg/dL Diabetes panel 02/03/24 Range/Units 08:35 Sodium 138 (137-145) mmol/L Potassium 3.9 (3.5-5.1) mmol/L Chloride 107 (98-107) mmol/L Carbon Dioxide 26 (22-30) mmol/L BUN 6 L (7-17) mg/dL Creatinine 0.62 (0.52-1.04) mg/dL Glucose 103 H (74-99) mg/dL Calcium 8.7 (8.4-10.2) mg/dL AST 20 (14-36) U/L ALT 14 (4-34) U/L Alkaline Phosphatase 84 (38-126) U/L Total Protein 6.7 (6.3-8.2) g/dL Albumin 4.1 (3.5-5.0) g/dL Calcium panel 02/03/24 Range/Units 08:35 Calcium 8.7 (8.4-10.2) mg/dL Albumin 4.1 (3.5-5.0) g/dL Pituitary panel 02/03/24 Range/Units 08:35 Sodium 138 (137-145) mmol/L Potassium 3.9 (3.5-5.1) mmol/L Chloride 107 (98-107) mmol/L Carbon Dioxide 26 (22-30) mmol/L BUN 6 L (7-17) mg/dL Creatinine 0.62 (0.52-1.04) mg/dL Glucose 103 H (74-99) mg/dL Calcium 8.7 (8.4-10.2) mg/dL Adrenal panel 02/03/24 Range/Units 08:35 Sodium 138 (137-145) mmol/L Potassium 3.9 (3.5-5.1) mmol/L Chloride 107 (98-107) mmol/L Carbon Dioxide 26 (22-30) mmol/L BUN 6 L (7-17) mg/dL Creatinine 0.62 (0.52-1.04) mg/dL Glucose 103 H (74-99) mg/dL Calcium 8.7 (8.4-10.2) mg/dL Total Bilirubin 0.7 (0.2-1.3) mg/dL AST 20 (14-36) U/L ALT 14 (4-34) U/L Alkaline Phosphatase 84 (38-126) U/L Total Protein 6.7 (6.3-8.2) g/dL Albumin 4.1 (3.5-5.0) g/dL
[2024-02-03] MEDS: HYDROmorphone 0.5 MG/0.5 ML SYRINGE IVP PRN (15:11)
[2024-02-03] MEDS: HEPARIN SODIUM,PORCINE 5,000 UNIT/ML 1 ML VIAL SQ SCH (17:05)
--- NOTE | 2024-02-03 23:10 | P.CONS ---
History of Present Illness - Reason for Consult Consult date: 02/03/24 Medical management - Chief Complaint Abdominal pain - History of Present Illness Patient is a 58-year-old female with a past medical history of hyperlipidemia, hypothyroidism, asthma/COPD, GERD, renal stones and chronic neck and left shoulder pain and back pain anxiety/depression/ADD/ADHD and currently everyday smoker presents to ER with complaints of abdominal pain. Patient states that she has been having abdominal pain mainly in the lower abdomen. Denies any nausea vomiting or diarrhea. No constipation. Denies any recent diarrhea. Patient states that he has been having increased urinary frequency. Denies dysuria. No complaints of chest pain or shortness of breath. No cough or sp utum production. Denies any flank pain. CT of the abdomen pelvis showed exam positive for acute diverticulitis along the mid sigmoid colon given the degree of moderate inflammation a few hypodense ar eas along the wall of the colon measuring up to 1.8 cm possibly early intramural abscess and the mild free fluid tracking into the pelvis. Consider short interval CT follow-up to ensure adequate resolution with treatment. No free air discrete abscess at this time. Previous Jose fundoplication. Review of Systems Constitutional: Patient denies any fever or chills . No generalized weakness or weight loss. Abdomen: Patient does have lower abdominal pain/discomfort. No nausea or vomiting or diarrhea or constipation.. Cardiovascular: Patient denies any chest pain or short of breath no palpitations. Respiratory: patient denied any cough or sputum production. No shortness of breath Neurologic: Patient denied any numbness or tingling. no headache. Musculoskeletal: Patient denies any complaints of joint swelling or deformity. Skin: Negative Psychiatric: Negative Endocrine: No heat or cold intolerance. No recent weight gain. Genitourinary: No dysuria or hematuria. All other 14 point ROS negative except the above Past Medical History Past Medical History: Asthma, COPD, GERD/Reflux, Hyperlipidemia, Osteoarthritis (OA), Syncope, Thyroid Disorder Additional Past Medical History / Comment(s): kidney stones, hypoglycemia, chronic neck and L shoulder, lower back pain. Hx L facial and L ankle fxs, sinus problems, vertigo, falls in past due to syncope, low BP at times. Fusion of sacrum and iliac crest-per . 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 Rectocele repair. colonoscopy, d&c Past Anesthesia/Blood Transfusion Reactions: Previous Problems w/ Anesthesia Additional Past Anesthesia/Blood Transfusion Reaction / Comm: "Takes longer to wake up from anesthesia." Past Psychological History: ADD/ADHD, Anxiety, Depression Smoking Status: Current every day smoker Past Alcohol Use History: None Reported Past Drug Use History: None Reported - Past Family History Mother Family Medical History: Cancer Additional Family Medical History / Comment(s): lung Father Family Medical History: Asthma, COPD, Osteoarthritis (OA) Additional Family Medical History / Comment(s): Father at age 80 yrs. Medications and Allergies Home Medications Medication Instructions Recorded Confirmed Type RX: Ezetimibe [Zetia] 10 mg PO HS 09/05/14 02/03/24 History RX: Levothyroxine Sodium 25 mcg PO DAILY 03/13/16 02/03/24 History [Synthroid] RX: Omeprazole 40 mg PO HS 11/13/16 02/03/24 History RX: clonazePAM [KlonoPIN] 0.25 mg PO HS 05/03/17 02/03/24 History RX: Methylphenidate HCl 20 mg PO TID@0500,1200,1700 09/09/18 02/03/24 History RX: busPIRone HCL 15 mg PO BID 02/05/19 02/03/24 History RX: Atorvastatin Calcium [Lipitor] 10 mg PO HS 10/06/19 02/03/24 History RX: estradioL [Estrace] 0.5 mg PO DAILY 10/06/19 02/03/24 History RX: Citalopram Hydrobromide 40 mg PO DAILY 02/09/22 02/03/24 History [CeleXA] Fluticasone Nasal Burna [Flonase 1 spr EA NOSTRIL BID 02/04/23 02/03/24 History Nasal Burna] Naloxone HCl [Narcan] 4 mg NASAL DIRECTED PRN 02/04/23 02/03/24 History Brexpiprazole [Rexulti] 0.25 mg PO HS 09/18/23 02/03/24 History Cholecalciferol [Vitamin D3 (25 50 mcg PO DAILY 09/18/23 02/03/24 History Mcg = 1000 Iu)] Multivitamins, Thera [Multivitamin 1 tab PO DAILY 09/18/23 02/03/24 History (formulary)] RX: Diclofenac Sodium Gel 2 - 4 gm TOPICAL DAILY PRN 30 Days 12/13/23 02/03/24 Rx [Voltaren 1% Gel] #1 each RX: HYDROcodone/APAP 10-325MG 1 tab PO TID 30 Days #90 tab 12/13/23 02/03/24 Rx [Sigel 10-325] RX: tiZANidine HCL 2 mg PO HS 30 Days #30 tab 12/13/23 02/03/24 Rx Albuterol Sulfate [Albuterol 2 puff PO RT-Q6H PRN 02/03/24 02/03/24 History Sulfate Hfa] Cetirizine HCl [Zyrtec] 10 mg PO HS 02/03/24 02/03/24 History Allergies Allergy/AdvReac Type Severity Reaction Status Date / Time Penicillins Allergy Childhood Verified 02/03/24 11:19 Rash Physical Exam Vitals: Vital Signs Temp Pulse Resp BP Pulse Ox 02/03/24 14:18 57 L 16 97/37 94 L 02/03/24 13:01 66 16 89/59 94 L 02/03/24 11:22 65 16 88/61 97 02/03/24 08:05 98.4 F 70 18 106/66 98 Intake and Output 02/03/24 02/03/24 02/03/24 06:59 14:59 22:59 Other: Weight 77.111 kg PHYSICAL EXAMINATION: Patient is lying in the bed comfortably, no acute distress, awake alert and oriented.. HEENT: Normocephalic. Neck is supple. Pupils reactive. Nostrils clear. Oral cavity is moist. Neck reveals no JVD, carotid bruits, or thyromegaly. CHEST EXAMINATION: Trachea is central. Symmetrical expansion. Lung vasquez clear to auscultation and percussion. CARDIAC: Normal S1, S2 with no gallops. No murmurs ABDOMEN: Soft. Bowel sounds present, mild left lower quadrant tenderness. No guarding or rigidity.. No organomegaly. No abdominal bruits. Extremities: reveal no edema. No clubbing or cyanosis Neurologically awake, alert, oriented x3 with well-coordinated movements. No focal deficits noted Skin: No rash or skin lesions. Psychiatric: Coperative. Nonsuicidal Musculoskeletal: No joint swelling or deformity. Normal range of motion. Results CBC & Chem 7: 02/04/24 06:35 02/04/24 06:35 Labs: Abnormal Lab Results - Last 24 Hours (Table) 02/03/24 02/03/24 02/03/24 Range/Units 08:35 08:35 08:35 WBC 16.9 H (3.8-10.6) k/uL Neutrophils # 12.1 H (1.3-7.7) k/uL PT 9.7 L (10.0-12.5) sec BUN 6 L (7-17) mg/dL Glucose 103 H (74-99) mg/dL Assessment and Plan Assessment: Acute diverticulitis along the mid sigmoid colon and possible early intramural abscess. 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 Continue to monitor blood pressure closely. Continue with antibiotics Levaquin and Flagyl and follow-up culture reports. Continue other home medications and hold blood pressure medications. Will continue to follow and further recommendations based on the clinical course. Thank you for your consult. Time with Patient: Greater than 30
[2024-02-04] MEDS: PANTOPRAZOLE 40 MG TABLET PO SCH
[2024-02-04] MEDS: METHYLPHENIDATE HCL 10 MG TAB PO SCH (06:31)
[2024-02-04] MEDS: LEVOTHYROXINE 25 MCG TAB PO SCH (06:31)
[2024-02-04] MEDS: FAMOTIDINE 20 MG/2 ML VIAL IV SCH (09:13)
[2024-02-04] MEDS: CITALOPRAM HYDROBROMIDE 20 MG TAB PO SCH (09:14)
[2024-02-04] MEDS: busPIRone HCl 5 MG TAB PO SCH (09:14)
[2024-02-04 10:26] LABS: HCT 32.4 % (37.2-46.3); HGB 10.5 g/dL (12.0-15.0); MCH 28.7 pg (27.0-32.0); MCHC 32.4 g/dL (32.0-37.0); MCV 88.5 FL (80.0-97.0); Mean Platelet Volume 10.9 FL (9.5-12.2); NRBC Per 100 WBC 0 X 10*3/uL (0.00-0.01); Platelet Count 202 X 10*3/uL (140-440); RBC 3.66 X 10*6/uL (4.10-5.20); RDW 14.6 % (11.5-14.5); WBC 12.57 X 10*3/uL (4.50-10.00)
[2024-02-04 10:27] LABS: Basophils # (A) 0.04 X 10*3/uL (0.00-0.10); Basophils % (A) 0.3 %; Eosinophils # (A) 0.47 X 10*3/uL (0.04-0.35); Eosinophils % (A) 3.7 %; Lymphocytes # (A) 2.81 X 10*3/uL (0.90-5.00); Lymphocytes % (A) 22.4 %; Monocytes # (A) 0.75 X 10*3/uL (0.20-1.00); Neutrophils # (A) 8.46 X 10*3/uL (1.80-7.70); Neutrophils % (A) 67.3 %
[2024-02-04 10:33] LABS: ALT 113 U/L (8-44); AST 108 U/L (13-35); Albumin 3.6 g/dL (3.8-4.9); Alkaline Phosphatase 162 U/L (41-126); Blood Urea Nitrogen 5.6 mg/dL (9.0-27.0); Calcium 8.2 mg/dL (8.7-10.3); Chloride 105 mmol/L (96-109); Glucose 78 mg/dL (70-110); Sodium 140 mmol/L (135-145); Total Bilirubin 0.5 mg/dL (0.3-1.2); Total Protein 5.6 g/dL (6.2-8.2)
--- NOTE | 2024-02-04 11:29 | P.PN ---
Subjective Progress Note Date: 02/04/24 CHIEF COMPLAINT: Diverticulitis HISTORY OF PRESENT ILLNESS: Patient continues to have left lower quadrant abdominal pain. She denies any nausea or vomiting. Afebrile. BP in AM 87/51. WBC is down from 16.9-12.57 Hgb 10.5 platelets 202 increase in LFTs total bilirubin 0.5 AST 108 ALT 113 alk phos 162 Patient seen and examined with Dr. Alvarenga PHYSICAL EXAM: VITAL SIGNS: Reviewed. GENERAL: Well-developed in no acute distress. ABDOMEN: Soft. Nondistended. Left lower quadrant tenderness with palpation NEUROLOGIC: Alert and oriented. Cranial nerves II through XII grossly intact. ASSESSMENT: 1. Acute diverticulitis of the mid sigmoid colon with possible early intramural abscess 2. Elevated LFTs possibly medication induced. History of cholecystectomy PLAN: -Advance diet to clear liquids -Continue antibiotics -Resume IV fluids normal saline at 100 mL/h -Repeat labs in a.m. -Plan for repeat CT scan abdomen pelvis with contrast on Wednesday for further evaluation of the diverticulitis and intramural abscess Physician Study Assistant note has been reviewed by physician. Signing provider agrees with the documented findings, assessment, and plan of care. Objective - Vital Signs Vital signs: Vital Signs Temp 98.9 F 02/04/24 07:06 Pulse 64 02/04/24 07:06 Resp 17 02/04/24 07:06 BP 87/51 02/04/24 07:06 Pulse Ox 96 02/04/24 07:06 FiO2 Intake & Output 02/03/24 02/04/24 02/04/24 18:59 06:59 18:59 Weight 77.111 kg 77.111 kg Other: Voiding Method Toilet Toilet # Voids 1 - Labs CBC & Chem 7: 02/04/24 06:35 02/04/24 06:35 Labs: Abnormal Lab Results - Last 24 Hours (Table) 02/04/24 02/04/24 Range/Units 06:35 06:35 WBC 12.57 H (4.50-10.00) X 10*3/uL RBC 3.66 L (4.10-5.20) X 10*6/uL Hgb 10.5 L (12.0-15.0) g/dL Hct 32.4 L (37.2-46.3) % RDW 14.6 H (11.5-14.5) % Neutrophils # 8.46 H (1.80-7.70) X 10*3/uL Eosinophils # 0.47 H (0.04-0.35) X 10*3/uL BUN 5.6 L (9.0-27.0) mg/dL BUN/Creatinine Ratio 8.00 L (12.00-20.00) Ratio Calcium 8.2 L (8.7-10.3) mg/dL AST 108 H (13-35) U/L ALT 113 H (8-44) U/L Alkaline Phosphatase 162 H (41-126) U/L Total Protein 5.6 L (6.2-8.2) g/dL Albumin 3.6 L (3.8-4.9) g/dL
[2024-02-04] MEDS: SODIUM CHLORIDE 0.9% 1,000 ML IV SCH (12:07)
[2024-02-04] MEDS: FLUTICASONE 50MCG/SPRAY NASAL 16GM EA NOSTRIL SCH (12:07)
[2024-02-04] MEDS: EZETIMIBE 10 MG TAB PO SCH (20:26)
[2024-02-04] MEDS: tiZANidine 4 MG TAB PO SCH (20:26)
[2024-02-04] MEDS: ATORVASTATIN 10 MG TAB PO SCH (20:26)
--- NOTE | 2024-02-05 07:15 | P.PN ---
Progress Note - Text Progress Note Date: 02/05/24 CHIEF COMPLAINT: Diverticulitis HISTORY OF PRESENT ILLNESS: Patient continues to have left lower quadrant abdominal pain. She denies any nausea or vomiting. Afebrile. PHYSICAL EXAM: VITAL SIGNS: Reviewed. GENERAL: Well-developed in no acute distress. ABDOMEN: Soft. Nondistended. Left lower quadrant tenderness with palpation NEUROLOGIC: Alert and oriented. Cranial nerves II through XII grossly intact. ASSESSMENT: 1. Acute diverticulitis of the mid sigmoid colon with possible early intramural abscess 2. Elevated LFTs possibly medication induced. History of cholecystectomy PLAN: -Continue CLD -Continue Rocephin/Flagyl -Resume IV fluids normal saline at 100 mL/h -Repeat labs in a.m. -Plan for repeat CT scan abdomen pelvis with contrast on Wednesday for further evaluation of the diverticulitis and intramural abscess
[2024-02-05 09:46] LABS: Basophils # (A) 0.04 X 10*3/uL (0.00-0.10); Basophils % (A) 0.4 %; Eosinophils # (A) 0.42 X 10*3/uL (0.04-0.35); Eosinophils % (A) 4.4 %; HCT 31.2 % (37.2-46.3); HGB 10.2 g/dL (12.0-15.0); Lymphocytes # (A) 2.67 X 10*3/uL (0.90-5.00); Lymphocytes % (A) 27.8 %; MCH 29.1 pg (27.0-32.0); MCHC 32.7 g/dL (32.0-37.0); MCV 89.1 FL (80.0-97.0); Mean Platelet Volume 11.2 FL (9.5-12.2); Monocytes # (A) 0.54 X 10*3/uL (0.20-1.00); Monocytes % (A) 5.6 %; NRBC Per 100 WBC 0 X 10*3/uL (0.00-0.01); Neutrophils # (A) 5.91 X 10*3/uL (1.80-7.70); Neutrophils % (A) 61.5 %; Platelet Count 192 X 10*3/uL (140-440); RDW 14.5 % (11.5-14.5); WBC 9.61 X 10*3/uL (4.50-10.00)
[2024-02-05 10:39] LABS: ALT 68 U/L (8-44); AST 45 U/L (13-35); Albumin 3.5 g/dL (3.8-4.9); Albumin/Globulin Ratio 1.67 Ratio (1.60-3.17); Alkaline Phosphatase 132 U/L (41-126); BUN/Creat Ratio 6.57 Ratio (12.00-20.00); Blood Urea Nitrogen 4.6 mg/dL (9.0-27.0); Calcium 8.5 mg/dL (8.7-10.3); Carbon Dioxide 24.7 mmol/L (21.6-31.8); Chloride 106 mmol/L (96-109); Globulin 2.1 g/dL (1.6-3.3); Glucose 96 mg/dL (70-110); Sodium 141 mmol/L (135-145); Total Bilirubin 0.3 mg/dL (0.3-1.2); Total Protein 5.6 g/dL (6.2-8.2)
[2024-02-05] MEDS: HYDROmorphone 0.5 MG/0.5 ML SYRINGE IVP PRN (13:35)
[2024-02-06] MEDS: IOPAMIDOL CONTRAST (ORAL USE) VIAL PO PRN (06:11)
--- NOTE | 2024-02-06 08:21 | CT ---
EXAMINATION TYPE: CT abdomen pelvis w con CT DLP: 1086.4 mGycm, Automated exposure control for dose reduction was used. DATE OF EXAM: 02/06/2024 7:37 AM COMPARISON: CT abdomen pelvis most recent from 02/03/2024. CLINICAL INDICATION:Female, 58 years old with history of abdominal pain; abdominal pain, f/u intramur al diverticular abscess TECHNIQUE: Axial CT abdomen pelvis w con;Sagittal and coronal reformats were created on a separate w orkstation. Contrast used:100ml mL of Isovue 300 with IV Contrast, (none if empty) Oral contrast used: with Oral Contrast (none if empty) FINDINGS: LOWER CHEST: Mild cardiomegaly with lipomatous hypertrophy of interatrial septum. Drinking 2 fast Drinking 2 ABDOMEN LIVER: Unremarkable GALLBLADDER AND BILE DUCTS: Unremarkable. PANCREAS: Unremarkable. SPLEEN: Unremarkable. ADRENAL GLANDS: Unremarkable. KIDNEYS AND URETERS: No evidence of hydronephrosis or renal calculus. The ureters are unremarkable. PELVIS BLADDER: Unremarkable REPRODUCTIVE: Unremarkable. ABDOMEN & PELVIS STOMACH AND BOWEL: No evidence of bowel obstruction. Hiatal hernia is present. Fat stranding changes around the sigmoid colon surrounding colonic diverticula. No organizing fluid collection. No intramur al abscess definitively visualized. Areas of lower attenuation seen within the wall on prior less maykel picious on today's exam. There is some more stool on today's exam within this section of bowel disten ding the wall on prior. PERITONEUM/RETROPERITONEUM: No evidence of pneumoperitoneum or free fluid. VASCULATURE: No evidence of aortic aneurysm. MUSCULOSKELETAL: No acute osseous abnormalities, postsurgical changes spine hardware appears intact. Right sacroiliac joint fixation appears intact. LYMPH NODES: No gross evidence for lymphadenopathy. SOFT TISSUE/ABDOMINAL WALL: Negative stimulator device in the right buttock with leads terminating ou t of the posterior back. IMPRESSION: Acute sigmoid colon diverticulitis without evidence for intramural abscess, perforation or abscess ou t of the bowel wall. No complication on today's exam.
[2024-02-06 11:01] LABS: Basophils # (A) 0.04 X 10*3/uL (0.00-0.10); Basophils % (A) 0.4 %; Eosinophils # (A) 0.54 X 10*3/uL (0.04-0.35); Eosinophils % (A) 5.8 %; HCT 31.8 % (37.2-46.3); HGB 10.4 g/dL (12.0-15.0); Lymphocytes # (A) 2.57 X 10*3/uL (0.90-5.00); Lymphocytes % (A) 27.6 %; MCH 28.8 pg (27.0-32.0); MCHC 32.7 g/dL (32.0-37.0); MCV 88.1 FL (80.0-97.0); Mean Platelet Volume 11.4 FL (9.5-12.2); Monocytes # (A) 0.58 X 10*3/uL (0.20-1.00); Monocytes % (A) 6.2 %; NRBC Per 100 WBC 0 X 10*3/uL (0.00-0.01); Neutrophils # (A) 5.55 X 10*3/uL (1.80-7.70); Neutrophils % (A) 59.7 %; Platelet Count 219 X 10*3/uL (140-440); RBC 3.61 X 10*6/uL (4.10-5.20); RDW 14.1 % (11.5-14.5); WBC 9.31 X 10*3/uL (4.50-10.00)
[2024-02-06 11:06] LABS: ALT 53 U/L (8-44); AST 29 U/L (13-35); Albumin 3.7 g/dL (3.8-4.9); Albumin/Globulin Ratio 1.85 Ratio (1.60-3.17); Alkaline Phosphatase 122 U/L (41-126); BUN/Creat Ratio <5.00 Ratio (12.00-20.00); Blood Urea Nitrogen <3.5 mg/dL (9.0-27.0); Calcium 8.4 mg/dL (8.7-10.3); Chloride 107 mmol/L (96-109); Glucose 94 mg/dL (70-110); Potassium 3.9 mmol/L (3.5-5.5); Sodium 143 mmol/L (135-145); Total Bilirubin 0.2 mg/dL (0.3-1.2); Total Protein 5.7 g/dL (6.2-8.2)
--- NOTE | 2024-02-06 13:06 | P.PN ---
Subjective Progress Note Date: 02/06/24 CHIEF COMPLAINT: Diverticulitis HISTORY OF PRESENT ILLNESS: The patient is a 58-year-old female admitted for diverticulitis with intramural abscess. White blood cell count has improved. She had repeat CT scan. She reports improvement of her abdominal pain. She is tolerating clear liquid diet. ROS: No reports of nausea and vomiting. No fevers or chills. No new chest pain. No productive sputum PHYSICAL EXAM: VITAL SIGNS: Reviewed CONSTITUTIONAL: Well developed and in no acute distress. EYES: Conjuctivae without sclera icterus. Extraocular movements grossly intact. HEAD, EARS, NOSE, THROAT: Moist buccal mucosa. Head is atraumatic, normocephalic. Hears conversational speech. No nasal drainage. RESPIRATORY: Non-labored respirations and equal bilateral excursions. CARDIOVASCULAR: Palpable 2+ radial pulses. ABDOMEN: Left lower quadrant tenderness without peritonitis MUSCULOSKELETAL: No gross deformity of the lower extremities noted. No clubbing. No cyanosis. SKIN: Good skin turgor. Well perfused. NEUROLOGIC: Cranial nerves II through XII grossly intact. No focal or later alizing signs. PSYCH: Appropriate affect. Alert and oriented to person, place and time. CLINICAL LABS: Reviewed. WBC improved from 16,000 to over 9000, normal STUDIES: CT of the abdomen and pelvis independently reviewed demonstrates mild sigmoid diverticulitis. No free air. No bowel obstruction. Thickening of the rugal folds of the stomach suspicion for gastritis. This is my independent interpretation. REPORT: CT of the abdomen pelvis report today demonstrates acute diverticulitis without complication. ASSESSMENT: 1. Acute diverticulitis PLAN: 1. Continue with clear liquid diet. Patient still has tenderness of the left lower quadrant however improved 2. May advance diet to low fiber once abdominal pain has moderately improved or resolved. 3. Continue hospitalization with IV antibiotics Objective - Vital Signs Vital signs: Vital Signs Temp 98.9 F 02/06/24 07:42 Pulse 65 02/06/24 07:42 Resp 16 02/06/24 07:42 BP 116/55 02/06/24 07:42 Pulse Ox 97 02/06/24 07:42 FiO2 Intake & Output 02/05/24 02/06/24 02/06/24 18:59 06:59 18:59 Other: Voiding Method Toilet Toilet # Voids 3 5 - Labs CBC & Chem 7: 02/06/24 05:33 02/06/24 05:33 Labs: Abnormal Lab Results - Last 24 Hours (Table) 02/06/24 02/06/24 Range/Units 05:33 05:33 RBC 3.61 L (4.10-5.20) X 10*6/uL Hgb 10.4 L (12.0-15.0) g/dL Hct 31.8 L (37.2-46.3) % Eosinophils # 0.54 H (0.04-0.35) X 10*3/uL BUN <3.5 L (9.0-27.0) mg/dL BUN/Creatinine Ratio <5.00 L (12.00-20.00) Ratio Calcium 8.4 L (8.7-10.3) mg/dL Total Bilirubin 0.2 L (0.3-1.2) mg/dL ALT 53 H (8-44) U/L Total Protein 5.7 L (6.2-8.2) g/dL Albumin 3.7 L (3.8-4.9) g/dL
[2024-02-06] MEDS: ACETAMINOPHEN TAB 325 MG TAB PO PRN (14:58)
--- NOTE | 2024-02-07 00:59 | P.PN ---
Subjective Progress Note Date: 02/04/24 Patient is a 58-year-old female with a past medical history of hyperlipidemia, hypothyroidism, asthma/COPD, GERD, renal stones and chronic neck and left shoulder pain and back pain anxiety/depression/ADD/ADHD and currently everyday smoker presents to ER with complaints of abdominal pain. Patient states that she has been having abdominal pain mainly in the lower abdomen. Denies any nausea vomiting or diarrhea. No constipation. Denies any recent diarrhea. Patient states that he has been having increased urinary frequency. Denies dysuria. No complaints of chest pain or shortness of breath. No cough or sputum production. Denies any flank pain. CT of the abdomen pelvis showed exam positive for acute diverticulitis along the mid sigmoid colon given the degree of moderate inflammation a few hypodense areas along the wall of the colon measuring up to 1.8 cm possibly early intramural abscess and the mild free fluid tracking into the pelvis. Consider short interval CT follow-up to ensure adequate resolution with treatment. No free air discrete abscess at this time. Previous Jose fundoplication. 02/04/2024 Patient is lying in the bed. Still complains of left lower quadrant abdominal p ain. Afebrile. No nausea or vomiting. Pressure is marginal otherwise. Continued on IV hydration and antibiotics. Otherwise laboratory pressure WBC improved to 12.5 hemoglobin 10.5 and platelets 202 sodium 140 potassium 4.0 chloride 105 bicarb is 23 BUN 5.6 and creatinine 0.7 and liver enzymes are elevated with AST 108 ALT 113 and alk phos 162. Patient is on Levaquin and Flagyl. Levaquin will be changed to ceftriaxone due to elevated liver enzymes. Current medications reviewed. Objective - Vital Signs Vital signs: Vital Signs Temp 98.9 F 02/04/24 07:06 Pulse 64 02/04/24 07:06 Resp 17 02/04/24 07:06 BP 87/51 02/04/24 07:06 Pulse Ox 96 02/04/24 07:06 FiO2 Intake & Output 02/03/24 02/04/24 02/04/24 18:59 06:59 18:59 Weight 77.111 kg 77.111 kg Other: Voiding Method Toilet Toilet # Voids 1 - Exam PHYSICAL EXAMINATION: Patient is lying in the bed comfortably, no acute distress, awake alert and oriented.. HEENT: Normocephalic. Neck is supple. Pupils reactive. Nostrils clear. Oral cavity is moist. Neck reveals no JVD, carotid bruits, or thyromegaly. CHEST EXAMINATION: Trachea is central. Symmetrical expansion. Lung vasquez clear to auscultation and percussion. CARDIAC: Normal S1, S2 with no gallops. No murmurs ABDOMEN: Soft. Bowel sounds present, mild left lower quadrant tenderness. No guarding or rigidity.. No organomegaly. No abdominal bruits. Extremities: reveal no edema. No clubbing or cyanosis Neurologically awake, alert, oriented x3 with well-coordinated movements. No focal deficits noted Skin: No rash or skin lesions. Psychiatric: Coperative. Nonsuicidal Musculoskeletal: No joint swelling or deformity. Normal range of motion. - Labs CBC & Chem 7: 02/06/24 05:33 02/06/24 05:33 Labs: Abnormal Lab Results - Last 24 Hours (Table) 02/04/24 02/04/24 Range/Units 06:35 06:35 WBC 12.57 H (4.50-10.00) X 10*3/uL RBC 3.66 L (4.10-5.20) X 10*6/uL Hgb 10.5 L (12.0-15.0) g/dL Hct 32.4 L (37.2-46.3) % RDW 14.6 H (11.5-14.5) % Neutrophils # 8.46 H (1.80-7.70) X 10*3/uL Eosinophils # 0.47 H (0.04-0.35) X 10*3/uL BUN 5.6 L (9.0-27.0) mg/dL BUN/Creatinine Ratio 8.00 L (12.00-20.00) Ratio Calcium 8.2 L (8.7-10.3) mg/dL AST 108 H (13-35) U/L ALT 113 H (8-44) U/L Alkaline Phosphatase 162 H (41-126) U/L Total Protein 5.6 L (6.2-8.2) g/dL Albumin 3.6 L (3.8-4.9) g/dL Assessment and Plan Assessment: Acute diverticulitis along the mid sigmoid colon and possible early intramural abscess. Abdominal pain secondary to above Elevated liver enzymes likely due to antibiotics. 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 Continue to monitor blood pressure closely. Continue with antibiotics Levaquin and Flagyl and follow-up culture reports. Levaquin changed to ceftriaxone. Continue other home medications and hold blood pressure medications. Will continue to follow and further recommendations based on the clinical course. Follow-up CBC and CMP tomorrow. Time with Patient: Greater than 30
--- NOTE | 2024-02-07 01:04 | P.PN ---
Subjective Progress Note Date: 02/05/24 Patient is a 58-year-old female with a past medical history of hyperlipidemia, hypothyroidism, asthma/COPD, GERD, renal stones and chronic neck and left shoulder pain and back pain anxiety/depression/ADD/ADHD and currently everyday smoker presents to ER with complaints of abdominal pain. Patient states that she has been having abdominal pain mainly in the lower abdomen. Denies any nausea vomiting or diarrhea. No constipation. Denies any recent diarrhea. Patient states that he has been having increased urinary frequency. Denies dysuria. No complaints of chest pain or shortness of breath. No cough or sputum production. Denies any flank pain. CT of the abdomen pelvis showed exam positive for acute diverticulitis along the mid sigmoid colon given the degree of moderate inflammation a few hypodense areas along the wall of the colon measuring up to 1.8 cm possibly early intramural abscess and the mild free fluid tracking into the pelvis. Consider short interval CT follow-up to ensure adequate resolution with treatment. No free air discrete abscess at this time. Previous Jose fundoplication. 02/04/2024 Patient is lying in the bed. Still complains of left lower quadrant abdominal p ain. Afebrile. No nausea or vomiting. Pressure is marginal otherwise. Continued on IV hydration and antibiotics. Otherwise laboratory pressure WBC improved to 12.5 hemoglobin 10.5 and platelets 202 sodium 140 potassium 4.0 chloride 105 bicarb is 23 BUN 5.6 and creatinine 0.7 and liver enzymes are elevated with AST 108 ALT 113 and alk phos 162. Patient is on Levaquin and Flagyl. Levaquin will be changed to ceftriaxone due to elevated liver enzymes. 02/05/2024 Patient is lying in the bed. Awake alert and oriented x 3 Pain is much improved. No nausea or vomiting. Tolerating oral intake. Afebrile. Liver lesions are improving. Continued on clear liquid diet. General surgery is planning for repeat CT scan. Laboratory data showed WBC 9.6 hemoglobin 10.2 and platelets 192 BUN 4.67 crea tinine 0.7 liver enzymes showed AST 45 ALT 68 alk phos 132 and albumin 3.5. Current medications reviewed. Objective - Vital Signs Vital signs: Vital Signs Temp 98.5 F 02/05/24 14:00 Pulse 61 02/05/24 14:00 Resp 17 02/05/24 14:00 BP 109/55 02/05/24 14:00 Pulse Ox 95 02/05/24 14:00 FiO2 Intake & Output 02/05/24 02/05/24 02/06/24 06:59 18:59 06:59 Other: Voiding Method Toilet # Voids 3 3 - Exam PHYSICAL EXAMINATION: Patient is lying in the bed comfortably, no acute distress, awake alert and oriented.. HEENT: Normocephalic. Neck is supple. Pupils reactive. Nostrils clear. Oral cavity is moist. Neck reveals no JVD, carotid bruits, or thyromegaly. CHEST EXAMINATION: Trachea is central. Symmetrical expansion. Lung vasquez clear to auscultation and percussion. CARDIAC: Normal S1, S2 with no gallops. No murmurs ABDOMEN: Soft. Bowel sounds present, no left lower quadrant tenderness. No guarding or rigidity.. No organomegaly. No abdominal bruits. Extremities: reveal no edema. No clubbing or cyanosis Neurologically awake, alert, oriented x3 with well-coordinated movements. No focal deficits noted Skin: No rash or skin lesions. Psychiatric: Coperative. Nonsuicidal Musculoskeletal: No joint swelling or deformity. Normal range of motion. - Labs CBC & Chem 7: 02/06/24 05:33 02/06/24 05:33 Labs: Abnormal Lab Results - Last 24 Hours (Table) 02/05/24 02/05/24 Range/Units 06:31 06:31 RBC 3.50 L (4.10-5.20) X 10*6/uL Hgb 10.2 L (12.0-15.0) g/dL Hct 31.2 L (37.2-46.3) % Eosinophils # 0.42 H (0.04-0.35) X 10*3/uL BUN 4.6 L (9.0-27.0) mg/dL BUN/Creatinine Ratio 6.57 L (12.00-20.00) Ratio Calcium 8.5 L (8.7-10.3) mg/dL AST 45 H (13-35) U/L ALT 68 H (8-44) U/L Alkaline Phosphatase 132 H (41-126) U/L Total Protein 5.6 L (6.2-8.2) g/dL Albumin 3.5 L (3.8-4.9) g/dL Assessment and Plan Assessment: Acute diverticulitis along the mid sigmoid colon and possible early intramural abscess. Abdominal pain secondary to above Elevated liver enzymes likely due to antibiotics. Improving. 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 Continue to monitor blood pressure closely. Continue with antibiotics Levaquin and Flagyl and follow-up culture reports. Levaquin changed to ceftriaxone. Continue other home medications and hold blood pressure medications. Will continue to follow and further recommendations based on the clinical course. Follow-up CBC and CMP tomorrow. Time with Patient: Greater than 30
--- NOTE | 2024-02-07 01:06 | P.PN ---
Subjective Progress Note Date: 02/06/24 Patient is a 58-year-old female with a past medical history of hyperlipidemia, hypothyroidism, asthma/COPD, GERD, renal stones and chronic neck and left shoulder pain and back pain anxiety/depression/ADD/ADHD and currently everyday smoker presents to ER with complaints of abdominal pain. Patient states that she has been having abdominal pain mainly in the lower abdomen. Denies any nausea vomiting or diarrhea. No constipation. Denies any recent diarrhea. Patient states that he has been having increased urinary frequency. Denies dysuria. No complaints of chest pain or shortness of breath. No cough or sputum production. Denies any flank pain. CT of the abdomen pelvis showed exam positive for acute diverticulitis along the mid sigmoid colon given the degree of moderate inflammation a few hypodense areas along the wall of the colon measuring up to 1.8 cm possibly early intramural abscess and the mild free fluid tracking into the pelvis. Consider short interval CT follow-up to ensure adequate resolution with treatment. No free air discrete abscess at this time. Previous Jose fundoplication. 02/04/2024 Patient is lying in the bed. Still complains of left lower quadrant abdominal p ain. Afebrile. No nausea or vomiting. Pressure is marginal otherwise. Continued on IV hydration and antibiotics. Otherwise laboratory pressure WBC improved to 12.5 hemoglobin 10.5 and platelets 202 sodium 140 potassium 4.0 chloride 105 bicarb is 23 BUN 5.6 and creatinine 0.7 and liver enzymes are elevated with AST 108 ALT 113 and alk phos 162. Patient is on Levaquin and Flagyl. Levaquin will be changed to ceftriaxone due to elevated liver enzymes. 02/05/2024 Patient is lying in the bed. Awake alert and oriented x 3 Pain is much improved. No nausea or vomiting. Tolerating oral intake. Afebrile. Liver lesions are improving. Continued on clear liquid diet. General surgery is planning for repeat CT scan. Laboratory data showed WBC 9.6 hemoglobin 10.2 and platelets 192 BUN 4.67 crea tinine 0.7 liver enzymes showed AST 45 ALT 68 alk phos 132 and albumin 3.5. 02/06/2024. Patient is lying in bed. Awake alert and oriented x 3. No complaints of abdominal pain. Tolerating liquid diet and has been advanced by general surgery. Repeat CT scan of the abdominal pelvis was done. Repeat CT showed acute sigmoid colon diverticulitis without evidence for intramural abscess perforation or abscess out of the bowel wall. No complication on today's exam. Patient remains on IV antibiotics. Laboratory data reviewed. Anticipate discharge in the next 24 hours with more clinical improvement. General surgery is is following. Current medications reviewed. Objective - Vital Signs Vital signs: Vital Signs Temp 98.9 F 02/06/24 07:42 Pulse 65 02/06/24 07:42 Resp 16 02/06/24 07:42 BP 116/55 02/06/24 07:42 Pulse Ox 97 02/06/24 07:42 FiO2 Intake & Output 02/05/24 02/06/24 02/06/24 18:59 06:59 18:59 Other: Voiding Method Toilet Toilet # Voids 3 5 - Exam PHYSICAL EXAMINATION: Patient is lying in the bed comfortably, no acute distress, awake alert and oriented.. HEENT: Normocephalic. Neck is supple. Pupils reactive. Nostrils clear. Oral cavity is moist. Neck reveals no JVD, carotid bruits, or thyromegaly. CHEST EXAMINATION: Trachea is central. Symmetrical expansion. Lung vasquez clear to auscultation and percussion. CARDIAC: Normal S1, S2 with no gallops. No murmurs ABDOMEN: Soft. Bowel sounds present, no left lower quadrant tenderness. No guarding or rigidity.. No organomegaly. No abdominal bruits. Extremities: reveal no edema. No clubbing or cyanosis Neurologically awake, alert, oriented x3 with well-coordinated movements. No focal deficits noted Skin: No rash or skin lesions. Psychiatric: Coperative. Nonsuicidal Musculoskeletal: No joint swelling or deformity. Normal range of motion. - Labs CBC & Chem 7: 02/06/24 05:33 02/06/24 05:33 Labs: Abnormal Lab Results - Last 24 Hours (Table) 02/06/24 02/06/24 Range/Units 05:33 05:33 RBC 3.61 L (4.10-5.20) X 10*6/uL Hgb 10.4 L (12.0-15.0) g/dL Hct 31.8 L (37.2-46.3) % Eosinophils # 0.54 H (0.04-0.35) X 10*3/uL BUN <3.5 L (9.0-27.0) mg/dL BUN/Creatinine Ratio <5.00 L (12.00-20.00) Ratio Calcium 8.4 L (8.7-10.3) mg/dL Total Bilirubin 0.2 L (0.3-1.2) mg/dL ALT 53 H (8-44) U/L Total Protein 5.7 L (6.2-8.2) g/dL Albumin 3.7 L (3.8-4.9) g/dL Assessment and Plan Assessment: Acute diverticulitis along the mid sigmoid colon and possible early intramural abscess. Abdominal pain secondary to above Elevated liver enzymes likely due to antibiotics. Improving. 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 Continue to monitor blood pressure closely. Continue with antibiotics Levaquin and Flagyl and follow-up culture reports. Levaquin changed to ceftriaxone. Liver exams are improving. Repeat CT of the abdomen pelvis showed no evidence of abscess. Continue other home medications and hold blood pressure medications. Will continue to follow and further recommendations based on the clinical course. Follow-up CBC and CMP tomorrow. Time with Patient: Greater than 30
[2024-02-07 08:30] LABS: HCT 32.8 % (37.2-46.3); HGB 10.6 g/dL (12.0-15.0); MCH 28.7 pg (27.0-32.0); MCHC 32.3 g/dL (32.0-37.0); MCV 88.9 FL (80.0-97.0); Mean Platelet Volume 11.3 FL (9.5-12.2); NRBC Per 100 WBC 0 X 10*3/uL (0.00-0.01); Platelet Count 241 X 10*3/uL (140-440); RBC 3.69 X 10*6/uL (4.10-5.20); RDW 14.2 % (11.5-14.5); WBC 10.17 X 10*3/uL (4.50-10.00)
[2024-02-07 08:31] LABS: Basophils # (A) 0.05 X 10*3/uL (0.00-0.10); Basophils % (A) 0.5 %; Eosinophils # (A) 0.63 X 10*3/uL (0.04-0.35); Eosinophils % (A) 6.2 %; Lymphocytes # (A) 2.35 X 10*3/uL (0.90-5.00); Lymphocytes % (A) 23.1 %; Monocytes # (A) 0.56 X 10*3/uL (0.20-1.00); Monocytes % (A) 5.5 %; Neutrophils # (A) 6.55 X 10*3/uL (1.80-7.70); Neutrophils % (A) 64.4 %
[2024-02-07 08:41] LABS: ALT 48 U/L (8-44); AST 31 U/L (13-35); Albumin 3.7 g/dL (3.8-4.9); Albumin/Globulin Ratio 1.76 Ratio (1.60-3.17); Alkaline Phosphatase 113 U/L (41-126); BUN/Creat Ratio <5.00 Ratio (12.00-20.00); Blood Urea Nitrogen <3.5 mg/dL (9.0-27.0); Calcium 8.6 mg/dL (8.7-10.3); Carbon Dioxide 22.5 mmol/L (21.6-31.8); Chloride 108 mmol/L (96-109); Globulin 2.1 g/dL (1.6-3.3); Glucose 94 mg/dL (70-110); Sodium 144 mmol/L (135-145); Total Bilirubin 0.3 mg/dL (0.3-1.2); Total Protein 5.8 g/dL (6.2-8.2)
--- NOTE | 2024-02-07 13:11 | P.PN ---
Subjective Progress Note Date: 02/07/24 Patient is a 58-year-old female with a past medical history of hyperlipidemia, hypothyroidism, asthma/COPD, GERD, renal stones and chronic neck and left shoulder pain and back pain anxiety/depression/ADD/ADHD and currently everyday smoker presents to ER with complaints of abdominal pain. Patient states that she has been having abdominal pain mainly in the lower abdomen. Denies any nausea vomiting or diarrhea. No constipation. Denies any recent diarrhea. Patient states that he has been having increased urinary frequency. Denies dysuria. No complaints of chest pain or shortness of breath. No cough or sputum production. Denies any flank pain. CT of the abdomen pelvis showed exam positive for acute diverticulitis along the mid sigmoid colon given the degree of moderate inflammation a few hypodense areas along the wall of the colon measuring up to 1.8 cm possibly early intramural abscess and the mild free fluid tracking into the pelvis. Consider short interval CT follow-up to ensure adequate resolution with treatment. No free air discrete abscess at this time. Previous Jose fundoplication. 02/07/[address] reported acute sigmoid colon diverticulitis without evidence for intramural abscess perforation or abscess out of the bowel wall. Left lower quadrant abdominal discomfort improving. Maintained on ceftriaxone, Flagyl and IV fluids. Afebrile, WBC 10.17. tolerating clear liquid diet with no further nausea ,vomiting. Liquidy stools decreasing. denies chest pain, palpitations or shortness of breath. Maintaining O2 sats in the high 90s on room air. Objective - Vital Signs Vital signs: Vital Signs Temp 98.4 F 02/07/24 07:32 Pulse 60 02/07/24 07:32 Resp 17 02/07/24 07:32 BP 125/68 02/07/24 07:32 Pulse Ox 96 02/07/24 07:32 FiO2 Intake & Output 02/06/24 02/07/24 02/07/24 18:59 06:59 18:59 Other: Voiding Method Toilet # Voids 2 2 - Exam PHYSICAL EXAMINATION: GEN:Alert and oriented x 3, sitting up in bed comfortably, no acute distress. HEENT: Normocephalic. Neck is supple. Pupils reactive. Neck:Supple, no JVD, carotid bruits, or thyromegaly. CHEST EXAMINATION: Trachea is central. Symmetrical expansion. Lung vasquez clear to auscultation and percussion. CARDIAC: Normal S1, S2 with no gallops. No murmurs ABDOMEN: Soft. Bowel sounds present,mild left lower quadrant tenderness. No guarding or rigidity.+BS. Extremities: no edema. No clubbing or cyanosis Neurological: Cranial nerves II through XII grossly intact ,no focal deficits noted Skin: No rash, warm and dry - Labs CBC & Chem 7: 02/07/24 04:54 02/07/24 04:54 Labs: Abnormal Lab Results - Last 24 Hours (Table) 02/07/24 02/07/24 Range/Units 04:54 04:54 WBC 10.17 H (4.50-10.00) X 10*3/uL RBC 3.69 L (4.10-5.20) X 10*6/uL Hgb 10.6 L (12.0-15.0) g/dL Hct 32.8 L (37.2-46.3) % Eosinophils # 0.63 H (0.04-0.35) X 10*3/uL Anion Gap 13.50 H (4.00-12.00) mmol/L BUN <3.5 L (9.0-27.0) mg/dL BUN/Creatinine Ratio <5.00 L (12.00-20.00) Ratio Calcium 8.6 L (8.7-10.3) mg/dL ALT 48 H (8-44) U/L Total Protein 5.8 L (6.2-8.2) g/dL Albumin 3.7 L (3.8-4.9) g/dL Assessment and Plan Assessment: Acute sigmoid colon diverticulitis with possible early intramural abscess per initial CT. repeat CT reported without evidence for intramural abscess, perforation or abscess. Abdominal pain secondary to above Elevated liver enzymes likely due to antibiotics. Improving. 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 Diet advancement and pain management as per general surgery. Discharge planning in progress as per general surgery. Follow-up with PCP in 1 week. Smoking cessation reinforced. The impression and plan of care has been dictated as directed. : I performed a history and examination of this patient, discussed the same with the dictator. I agree with the dictator's note ,documented as a scribe. Any additional findings or plans will be noted.
--- NOTE | 2024-02-07 15:36 | P.PN ---
Subjective Progress Note Date: 02/07/24 CHIEF COMPLAINT: Diverticulitis HISTORY OF PRESENT ILLNESS: Patient being followed for diverticulitis. She reports decrease in her abdominal pain. She rates her pain about a 5 out of 10. She denies any nausea or vomiting. She is having liquidy stools. Afebrile. WBC is 10.[address] scan abdomen pelvis from Wednesday reports acute sigmoid colon diverticulitis without evidence of intramural abscess, perforation or abscess out of the bowel wall. PHYSICAL EXAM: VITAL SIGNS: Reviewed. GENERAL: Well-developed in no acute distress. ABDOMEN: Soft. Nondistended. mild Left lower quadrant tenderness with palpation NEUROLOGIC: Alert and oriented. Cranial nerves II through XII grossly intact. ASSESSMENT: 1. Acute diverticulitis of the mid sigmoid colon with possible early intramural abscess 2. Elevated LFTs, likely medication induced. History of cholecystectomy. LFTs improving PLAN: -Advance diet to full liquids -Continue antibiotics -Continue pain management -Encourage patient to ambulate Physician Medical Transport Specialist note has been reviewed by physician. Signing provider agrees with the documented findings, assessment, and plan of care. Objective - Vital Signs Vital signs: Vital Signs Temp 98.4 F 02/07/24 07:32 Pulse 60 02/07/24 07:32 Resp 17 02/07/24 07:32 BP 125/68 02/07/24 07:32 Pulse Ox 96 02/07/24 07:32 FiO2 Intake & Output 02/06/24 02/07/24 02/07/24 18:59 06:59 18:59 Other: Voiding Method Toilet # Voids 2 2 - Labs CBC & Chem 7: 02/07/24 04:54 02/07/24 04:54 Labs: Abnormal Lab Results - Last 24 Hours (Table) 02/07/24 02/07/24 Range/Units 04:54 04:54 WBC 10.17 H (4.50-10.00) X 10*3/uL RBC 3.69 L (4.10-5.20) X 10*6/uL Hgb 10.6 L (12.0-15.0) g/dL Hct 32.8 L (37.2-46.3) % Eosinophils # 0.63 H (0.04-0.35) X 10*3/uL Anion Gap 13.50 H (4.00-12.00) mmol/L BUN <3.5 L (9.0-27.0) mg/dL BUN/Creatinine Ratio <5.00 L (12.00-20.00) Ratio Calcium 8.6 L (8.7-10.3) mg/dL ALT 48 H (8-44) U/L Total Protein 5.8 L (6.2-8.2) g/dL Albumin 3.7 L (3.8-4.9) g/dL
[2024-02-08 10:03] LABS: Basophils % (A) 0 %; Eosinophils # (A) 0.3 k/uL (0-0.7); Eosinophils % (A) 3 %; HCT 34.9 % (34.0-46.0); HGB 11.2 gm/dL (11.4-16.0); Lymphocytes # (A) 1.7 k/uL (1.0-4.8); Lymphocytes % (A) 15 %; MCV 90.5 fL (80.0-100.0); Mean Platelet Volume 8.8; Monocytes # (A) 0.5 k/uL (0-1.0); Monocytes % (A) 5 %; Neutrophils # (A) 8.6 k/uL (1.3-7.7); Neutrophils % (A) 76 %; Platelet Count 230 k/uL (150-450); RBC 3.86 m/uL (3.80-5.40); RDW 13.7 % (11.5-15.5); WBC 11.2 k/uL (3.8-10.6)
--- NOTE | 2024-02-08 12:40 | P.DS ---
Providers Date of admission: 02/03/24 11:43 Expected date of discharge: 02/08/24 Attending physician: Jeremiah Alvarenga Consults: 02/03/24 11:41 Consult Physician Routine Consulting Provider: Ihsan Ding Reason/Comments: medical management Do you want consulting provider notified?: Yes Primary care physician: Ihsan Ding Hospital Course: Discharge diagnosis 1. Acute diverticulitis of the mid sigmoid colon 2. Elevated LFTs, likely medication induced from antibiotics. History of cholecystectomy. LFTs improving 3. Mild leukocytosis secondary to diverticulitis Hospital course This is a 58-year-old female who presented with left lower quadrant abdominal pain x [address] scan abdomen pelvis completed that reported acute diverticulitis along the mid sigmoid colon and concerns of possible early intramural abscess. Patient was started on antibiotics. She has had improvement in her abdominal pain. She is tolerating diet. She is having bowel movements. Her repeat CT scan abdomen and pelvis had shown diverticulitis with no evidence of intramural abscess. Patient is afebrile. Patient seen and examined with Dr. Alvarenga. Dr. Alvarenga has cleared patient for discharge. Patient will continue antibiotics at discharge. Patient is stable for discharge. Please refer to chart for any further details. Physician Printing Sales Representative note has been reviewed by physician. Signing provider agrees with the documented findings, assessment, and plan of care. Patient Condition at Discharge: Stable Plan - Discharge Summary Discharge Rx Participant: No New Discharge Prescriptions: New cefUROXime axetiL [Ceftin] 500 mg PO BID 10 Days #10 tab metroNIDAZOLE [Flagyl] 500 mg PO TID 10 Days #30 tab Continue Ezetimibe [Zetia] 10 mg PO HS Levothyroxine Sodium [Synthroid] 25 mcg PO DAILY Omeprazole 40 mg PO HS clonazePAM [KlonoPIN] 0.25 mg PO HS Methylphenidate HCl 20 mg PO TID@0500,1200,1700 busPIRone HCL 15 mg PO BID Atorvastatin Calcium [Lipitor] 10 mg PO HS estradioL [Estrace] 0.5 mg PO DAILY Citalopram Hydrobromide [CeleXA] 40 mg PO DAILY Fluticasone Nas[place] [Flonase Nasal [place]] 1 spr EA NOSTRIL BID Cholecalciferol [Vitamin D3 (25 Mcg = 1000 Iu)] 50 mcg PO DAILY HYDROcodone/APAP 10-325MG [Stanley 10-325] 1 tab PO TID 30 Days #90 tab Cetirizine HCl [Zyrtec] 10 mg PO HS Albuterol Sulfate [Albuterol Sulfate Hfa] 2 puff PO RT-Q6H PRN PRN Reason: Shortness Of Breath Naloxone HCl [Narcan] 4 mg NASAL DIRECTED PRN PRN Reason: overdose Brexpiprazole [Rexulti] 0.25 mg PO HS Multivitamins, Thera [Multivitamin (formulary)] 1 tab PO DAILY tiZANidine HCL 2 mg PO HS 30 Days #30 tab Diclofenac Sodium Gel [Voltaren 1% Gel] 2 - 4 gm TOPICAL DAILY PRN 30 Days #1 each PRN Reason: Pain Discharge Medication List Ezetimibe [Zetia] 10 mg PO HS 09/05/14 [History] Levothyroxine Sodium [Synthroid] 25 mcg PO DAILY 03/13/16 [History] Omeprazole 40 mg PO HS 11/13/16 [History] clonazePAM [KlonoPIN] 0.25 mg PO HS 05/03/17 [History] Methylphenidate HCl 20 mg PO TID@0500,1200,1700 09/09/18 [History] busPIRone HCL 15 mg PO BID 02/05/19 [History] Atorvastatin Calcium [Lipitor] 10 mg PO HS 10/06/19 [History] estradioL [Estrace] 0.5 mg PO DAILY 10/06/19 [History] Citalopram Hydrobromide [CeleXA] 40 mg PO DAILY 02/09/22 [History] Fluticasone Nasal [place] [Flonase Nasal [place]] 1 spr EA NOSTRIL BID 02/04/23 [History] Naloxone HCl [Narcan] 4 mg NASAL DIRECTED PRN 02/04/23 [History] Brexpiprazole [Rexulti] 0.25 mg PO HS 09/18/23 [History] Cholecalciferol [Vitamin D3 (25 Mcg = 1000 Iu)] 50 mcg PO DAILY 09/18/23 [History] Multivitamins, Thera [Multivitamin (formulary)] 1 tab PO DAILY 09/18/23 [History] Diclofenac Sodium Gel [Voltaren 1% Gel] 2 - 4 gm TOPICAL DAILY PRN 30 Days #1 each 12/13/23 [Rx] HYDROcodone/APAP 10-325MG [Stanley 10-325] 1 tab PO TID 30 Days #90 tab 12/13/23 [Rx] tiZANidine HCL 2 mg PO HS 30 Days #30 tab 12/13/23 [Rx] Albuterol Sulfate [Albuterol Sulfate Hfa] 2 puff PO RT-Q6H PRN 02/03/24 [History] Cetirizine HCl [Zyrtec] 10 mg PO HS 02/03/24 [History] cefUROXime axetiL [Ceftin] 500 mg PO BID 10 Days #10 tab 02/08/24 [Rx] metroNIDAZOLE [Flagyl] 500 mg PO TID 10 Days #30 tab 02/08/24 [Rx] Follow up Appointment(s)/Referral(s): Ihsan Ding DO [Primary Care Provider] - 3 Days Jeremiah Alvarenga MD [STAFF PHYSICIAN] - 1 Week Activity/Diet/Wound Care/Special Instructions: Continue a full liquid diet today and then advance diet as tolerated at home Discharge Disposition: HOME SELF-CARE
[2024-02-08 13:59] VITALS: BP 111/61; PULSE 73; RESP 18; TEMP 98.2
== END 2024-02-08 14:35 | disposition home or self-care (01) | DRG 392 ==
LOC: EC 08:01 → 4SSUR 11:43
PROVIDERS: ADMIT Surgery; ATTEND Surgery
DX: K57.32 Diverticulitis of large intestine without perforation or abscess without bleeding (principal); R74.01 Elevation of levels of liver transaminase levels; T36.95XA Adverse effect of unspecified systemic antibiotic, initial encounter; E78.5 Hyperlipidemia, unspecified; E03.9 Hypothyroidism, unspecified; J44.89 Other specified chronic obstructive pulmonary disease; K21.9 Gastro-esophageal reflux disease without esophagitis; G89.29 Other chronic pain; M54.2 Cervicalgia; M54.9 Dorsalgia, unspecified; M25.512 Pain in left shoulder; F41.9 Anxiety disorder, unspecified; F32.A Depression, unspecified; F90.9 Attention-deficit hyperactivity disorder, unspecified type; F17.200 Nicotine dependence, unspecified, uncomplicated; M19.90 Unspecified osteoarthritis, unspecified site; R35.0 Frequency of micturition; Z88.0 Allergy status to penicillin; Z79.890 Hormone replacement therapy; Z79.899 Other long term (current) drug therapy
CPT/HCPCS: 36415; 74177; 80053; 81003; 82150; 83605; 83690; 85025; 85610; 85730; 96361; 96365; 96372; 96375; 96376; 99285

== ENCOUNTER → 2024-02-14 | Outpatient (CLI) | payer MEDICARE, OTHER ==
[2024-02-14 07:46] VITALS: BP 110/56; PULSE 79; RESP 16
--- NOTE | 2024-02-14 14:58 | P.PAINPG ---
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 Pain level is provoked at 7 /10 in intensity, constant, localized in the cervical spine, sharp in character w shooting towards the back of the shoulders. Pain is provoked by lifting. Pain is alleviated with PT w massage x 4 wks in Oct 2022, medications, topical , alternating heat & ice, repositioning and rest. Patient is currently on [place] 10/325mg #90, Zanaflex, Ibu, Voltaren gel Patient denies any side effects of the medication(s), denies excessive drowsiness or sleepiness, denies suicidal ideation and reports that the current pain medication is helping to control the pain and improve activities of daily living. Patient denies any motor or sensory deficits. Patient denies any fever or night sweats, denies any change in the bowel movements or urination. Physical Examination: -Constitutional: Cooperative. Not in acute distress . - Neurologic: Cranial nerve II to XII intact. No focal neurological deficits. - Psychatric: Alert & oriented x 3. Matching mood & appropriate affect. Judgment and insight intact. - Musculoskeletal: Cervical spine: Muscle bulk/ tone/ strength in the bilateral upper extremities normal Vertebral body tenderness to palpation over [place] test positive Distraction test positive Facet loading test positive TTP Thoracic spine Muscle bulk / tone/ strength in the bilateral paraspinal muscles normal Vertebral body tender to palpation over Facet loading test positive TTP Lumbar spine: Motor bulk/ tone/ strength lower extremities , thigh and legs : 5/5 Deep tendon reflexes : Normal Knee Jerk. Normal Ankle Jerk . Vertebral body tenderness to palpation over L4 Lumbar Facet Loading Test positive Straight Leg Raise: positive at 30 degrees right side/ left side Gaenslen's Test positive Sacral spine : Severe tenderness over the Sacroiliac joint: right side / left side Range of motion: Flexion of the lumbar spine <60 degrees Range of motion: Extension of the lumbar spine <20 degrees Gaenslen's Test positive R / L Tim test: positive right side / left side Thigh Thrust Test positive R / L Sacral Thrust Test positive R/ L Assessment and plan: Chronic neck pain and LBP secondary to cervical & lumbar DDD, spondylosis with facet arthropathy without myelopathy Chronic and current use of high-risk medication (Opioids). The patient was counseled about risk of opioid use, psychological risk associated with opioids and was orally counseled to not overuse , divert or sell medications. Pt is to store medication in a safe location. The patient is counseled against driving while using narcotic medications and also not to use alcohol or any illicit recreational drugs. Patient verbalized understanding that the lack of compliance will result in failure to renew narcotic prescription(s) as well as possible discharge from the clinic Diagnoses, prognosis and treatment options including but not limited to physical therapy, surgical interventions, interventional therapies and medication management including narcotics and adjuvant medication were disc ussed. All patient questions answered . Opiate/ narcotic agreement renewed 02/14/24. MAPS reviewed and it was appropriate. UDS fr 08/25/23 reviewed and consistent. Prescription refill for [place] 10/325mg #90 , Diclofenac gel, Zanaflex 2mg #30 w 1 RF. I have spent less than 30 minutes on patient care today. Dr Castanon was available by phone for the evaluation of this patient. The time was used to review the medical records including relevant urine studies and Prescription history (MAPs), review of the available imaging, evaluation and examination of the patient, coordination of care with the medical staff and if applicable referring physicians, as well as creation of the medical record PQRS Narrative: Smoking Status Former smoker Narcotic Agreement Date Signed 03/08/23 Hx Alcohol Use (MH) No Home Medications: Ambulatory Orders Ezetimibe [Zetia] 10 mg PO HS 09/05/14 Levothyroxine Sodium [Synthroid] 25 mcg PO DAILY 03/13/16 Omeprazole 40 mg PO HS 11/13/16 clonazePAM [KlonoPIN] 0.25 mg PO HS 05/03/17 Methylphenidate HCl 20 mg PO TID@0500,1200,1700 09/09/18 busPIRone HCL 15 mg PO BID 02/05/19 Atorvastatin Calcium [Lipitor] 10 mg PO HS 10/06/19 estradioL [Estrace] 0.5 mg PO DAILY 10/06/19 Citalopram Hydrobromide [CeleXA] 40 mg PO DAILY 02/09/22 Fluticasone Nasal [place] [Flonase Nasal [place]] 1 spr EA NOSTRIL BID 02/04/23 Naloxone HCl [Narcan] 4 mg NASAL DIRECTED PRN 02/04/23 Brexpiprazole [Rexulti] 0.25 mg PO HS 09/18/23 Cholecalciferol [Vitamin D3 (25 Mcg = 1000 Iu)] 50 mcg PO DAILY 09/18/23 Multivitamins, Thera [Multivitamin (formulary)] 1 tab PO DAILY 09/18/23 Diclofenac Sodium Gel [Voltaren 1% Gel] 2 - 4 gm TOPICAL DAILY PRN 30 Days #1 each 12/13/23 tiZANidine HCL 2 mg PO HS 30 Days #30 tab 12/13/23 Albuterol Sulfate [Albuterol Sulfate Hfa] 2 puff PO RT-Q6H PRN 02/03/24 Cetirizine HCl [Zyrtec] 10 mg PO HS 02/03/24 cefUROXime axetiL [Ceftin] 500 mg PO BID 10 Days #10 tab 02/08/24 metroNIDAZOLE [Flagyl] 500 mg PO TID 10 Days #30 tab 02/08/24 HYDROcodone/APAP 10-325MG [[place] 10-325] 1 tab PO TID PRN 30 Days #90 tab 02/14/24 HYDROcodone/APAP 10-325MG [[place] 10-325] 1 tab PO TID PRN 30 Days #90 tab 02/14/24 Controlled Substance Measures - Controlled Substance Measures Is patient prescribed a controlled substance at discharge?: Yes When asked, does pt state using other controlled substances?: Yes If prescribed controlled substance>3 days was MAPS reviewed?: Yes
== END ==
LOC: PNWHC3 07:25
PROVIDERS: ATTEND Specialist
DX: M51.36 Other intervertebral disc degeneration, lumbar region (principal); M47.816 Spondylosis without myelopathy or radiculopathy, lumbar region; M50.30 Other cervical disc degeneration, unspecified cervical region; M47.812 Spondylosis without myelopathy or radiculopathy, cervical region; Z79.891 Long term (current) use of opiate analgesic; Z87.891 Personal history of nicotine dependence; Z88.0 Allergy status to penicillin
CPT/HCPCS: 99211

== ENCOUNTER 2024-03-21 08:37 | Emergency (ER) | payer MEDICARE, OTHER ==
[2024-03-21 08:41] VITALS: RESP 18
[2024-03-21] MEDS: SODIUM CHLORIDE 0.9% 1,000 ML IV STA (09:20)
[2024-03-21] MEDS: MECLIZINE 12.5 MG TAB PO STA (09:20)
[2024-03-21] MEDS: LIDOCAINE 4% PATCH TOPICAL ONE (09:20)
[2024-03-21] MEDS: METOCLOPRAMIDE 5 MG/ML 2 ML VIAL IVP STA (09:21)
[2024-03-21] MEDS: diphenhydrAMINE 50 MG/ML 1 ML VIAL IVP STA (09:23)
[2024-03-21 09:34] LABS: Basophils % (A) 0 %; Eosinophils # (A) 0.4 k/uL (0-0.7); Eosinophils % (A) 4 %; HCT 35.4 % (34.0-46.0); HGB 11.7 gm/dL (11.4-16.0); Lymphocytes # (A) 2.6 k/uL (1.0-4.8); Lymphocytes % (A) 24 %; MCH 29.5 pg (25.0-35.0); MCV 89.4 fL (80.0-100.0); Mean Platelet Volume 7.7; Monocytes # (A) 0.5 k/uL (0-1.0); Monocytes % (A) 5 %; Neutrophils # (A) 6.9 k/uL (1.3-7.7); Neutrophils % (A) 65 %; Platelet Count 243 k/uL (150-450); RBC 3.96 m/uL (3.80-5.40); RDW 14.3 % (11.5-15.5); WBC 10.6 k/uL (3.8-10.6)
[2024-03-21 09:39] LABS: Appearance,Urine Clear (Clear); Bacteria,Urine Occasional /hpf; Bilirubin,Urine Negative (Negative); Blood,Urine Negative (Negative); Color,Urine Colorless; Glucose,Urine (UA) Negative (Negative); Ketones,Urine Negative (Negative); Leukocyte Esterase,Urine Moderate (Negative); Nitrite,Urine Negative (Negative); Protein,Urine Negative (Negative); RBC,Urine <1 /hpf (0-5); Specific Gravity,Urine 1.003 (1.001-1.035); Squamous Epithelial Cell,Urine 1 /hpf (0-4); Urobilinogen,Urine <2.0 mg/dL (<2.0); WBC,Urine 6 /hpf (0-5)
[2024-03-21 09:45] LABS: INR 0.9 (<1.2); Partial Thromboplastin Time 25.5 sec (22.0-30.0)
--- NOTE | 2024-03-21 10:05 | ED ---
General Adult HPI - General Chief complaint: Dizziness Stated complaint: Headache, dizziness Time Seen by Provider: 03/21/24 08:58 Source: patient, RN notes reviewed, old records reviewed Mode of arrival: ambulatory Limitations: no limitations - History of Present Illness Initial comments: Patient is a 58-year-old female presents emergency department with complaints of headache, dizziness. States it is occasionally room spinning and lightheaded sensation. Denies any chest pain, shortness of breath, sensitivity to lights or sounds. Denies any nasal congestion. Denies any abdominal pain, nausea, vomiting. No other acute complaints. No history of migraines. Does have a history of chronic neck pain as well as vertigo as well as surgery for a Chiari malformation per patient. States that the dizziness is new for her in addition to the pain. Presents for further evaluation. No trauma. Is not on blood thinners. Symptoms have been ongoing on and off for the last week but worse over the last few days. - Related Data Home Medications Medication Instructions Recorded Confirmed Ezetimibe [Zetia] 10 mg PO HS 09/05/14 02/03/24 Levothyroxine Sodium [Synthroid] 25 mcg PO DAILY 03/13/16 02/03/24 Omeprazole 40 mg PO HS 11/13/16 02/03/24 clonazePAM [KlonoPIN] 0.25 mg PO HS 05/03/17 02/03/24 Methylphenidate HCl 20 mg PO TID@0500,1200,1700 09/09/18 02/03/24 busPIRone HCL 15 mg PO BID 02/05/19 02/03/24 Atorvastatin Calcium [Lipitor] 10 mg PO HS 10/06/19 02/03/24 estradioL [Estrace] 0.5 mg PO DAILY 10/06/19 02/03/24 Citalopram Hydrobromide [CeleXA] 40 mg PO DAILY 02/09/22 02/03/24 Fluticasone Nasal [place] [Flonase 1 spr EA NOSTRIL BID 02/04/23 02/03/24 Nasal [place]] Naloxone HCl [Narcan] 4 mg NASAL DIRECTED PRN 02/04/23 02/03/24 Brexpiprazole [Rexulti] 0.25 mg PO HS 09/18/23 02/03/24 Cholecalciferol [Vitamin D3 (25 50 mcg PO DAILY 09/18/23 02/03/24 Mcg = 1000 Iu)] Multivitamins, Thera [Multivitamin 1 tab PO DAILY 09/18/23 02/03/24 (formulary)] Albuterol Sulfate [Albuterol 2 puff PO RT-Q6H PRN 02/03/24 02/03/24 Sulfate Hfa] Cetirizine HCl [Zyrtec] 10 mg PO HS 02/03/24 02/03/24 Previous Rx's Medication Instructions Recorded Diclofenac Sodium Gel [Voltaren 1% 2 - 4 gm TOPICAL DAILY PRN 30 Days 12/13/23 Gel] #1 each cefUROXime axetiL [Ceftin] 500 mg PO BID 10 Days #10 tab 02/08/24 metroNIDAZOLE [Flagyl] 500 mg PO TID 10 Days #30 tab 02/08/24 HYDROcodone/APAP 10-325MG [[place] 1 tab PO TID PRN 30 Days #90 tab 02/14/24 10-325] HYDROcodone/APAP 10-325MG [[place] 1 tab PO TID PRN 30 Days #90 tab 02/14/24 10-325] tiZANidine HCL 2 mg PO HS 30 Days #30 tab 02/28/24 Meclizine [Antivert] 25 mg PO TID PRN 7 Days #21 tab 03/21/24 Allergies Allergy/AdvReac Type Severity Reaction Status Date / Time Penicillins Allergy Childhood Verified 03/21/24 08:41 Rash Review of Systems ROS Statement: Those systems with pertinent positive or pertinent negative responses have been documented in the HPI. Review of Systems: CONST: Denies fever EYES: Denies blurry vision ENT: Denies nasal congestion C/V: Denies Chest pain RESP: Denies shortness of breath GI: Denies abdominal pain : Denies dysuria SKIN: Denies rash. MSK: Denies joint pain. NEURO: Endorses headache ROS Other: All systems not noted in ROS Statement are negative. Past Medical History Past Medical History: Asthma, COPD, GERD/Reflux, Hyperlipidemia, Osteoarthritis (OA), Syncope, Thyroid Disorder Additional Past Medical History / Comment(s): kidney stones, hypoglycemia, chronic neck and L shoulder, lower back pain. Hx L facial and L ankle fxs, sinus problems, vertigo, falls in past due to syncope, low BP at times. Fusion of sacrum and iliac crest-per . 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 Rectocele repair. colonoscopy, d&c Past Anesthesia/Blood Transfusion Reactions: Previous Problems w/ Anesthesia Additional Past Anesthesia/Blood Transfusion Reaction / Comment(s): "Takes longer to wake up from anesthesia." Past Psychological History: ADD/ADHD, Anxiety, Depression Smoking Status: Current every day smoker Past Alcohol Use History: None Reported Past Drug Use History: None Reported - Past Family History Mother History Unknown: Yes Family Medical History: Cancer Additional Family Medical History / Comment(s): lung Father Family Medical History: Asthma, COPD, Osteoarthritis (OA) Additional Family Medical History / Comment(s): Father at age 80 yrs. General Exam - General Exam Comments Initial Comments: General: Appears in no acute distress. He is in mild distress. HEAD: Normal with no signs of head trauma. EYES: PERRLA, EOMI, conjunctiva normal, no discharge. Pupils are 3 mm and equal bilaterally. ENT: Hearing grossly intact, normal oropharynx. RESPIRATORY: Clear breath sounds bilaterally. No wheezes, rales, or rhonchi. C/V: Regular rate and rhythm. S1 and S2 auscultated, no edema, peripheral pulses 2+ and intact throughout ABD: Abd is soft, nontender, nondistended EXT: Normal range of motion, no obvious deformity. Mild cervical tenderness to palpation. No obvious step-offs or deformities. No significant spinal tenderness to palpation otherwise. SKIN: No rashes or lesions observed on exposed skin. NEURO: Alert and oriented x 4. NIH is 0. GCS of 15. No focal deficits. Limitations: no limitations Course Vital Signs 03/21/24 03/21/24 03/21/24 08:39 10:42 11:34 Temperature 97.8 F Pulse Rate 61 53 L 55 L Respiratory 18 18 18 Rate Blood Pressure 102/68 117/56 105/50 O2 Sat by Pulse 98 97 95 Oximetry Medical Decision Making - Medical Decision Making Was pt. sent in by a medical professional or institution (MARLO Maldonado, TRAVEL FREIGHT AND PASSENGER AGENT, urgent care, hospital, or senior care...) When possible be specific @ -No Did you speak to anyone other than the patient for history (EMS, parent, family, police, friend...)? What history was obtained from this source @ -No Did you review nursing and triage notes (agree or disagree)? Why? @ -I reviewed and agree with nursing and triage notes Were old charts reviewed (outside hosp., previous admission, EMS record, old EKG, old radiological studies, urgent care reports/EKG's, senior care records)? Report findings @ -Old chart reviewed to confirm patient's past medical history. Differential Diagnosis (chest pain, altered mental status, abdominal pain women, abdominal pain men, vaginal bleeding, weakness, fever, dyspnea, syncope, headache, dizziness, GI bleed, back pain, seizure, CVA, palpatations, mental health, musculoskeletal)? @ -Differential Dizziness: Benign paroxysmal positional Vertigo, Menieres disease, otitis media, acoustic neuroma, vertebrobasilar insufficiency, cerebellar stroke, encephalitis, hypovolemic, arrhythmia, coronary artery syndrome, anemia, this is not meant to be an all-inclusive list EKG interpreted by me (3pts min.). @ -As above X-rays interpreted by me (1pt min.). @ -Chest x-ray reveals no obvious acute cardiopulmonary process. CT interpreted by me (1pt min.). @ -CT brain reveals no obvious acute intracranial process. CT angiogram of the head and neck reveals no obvious acute process. CT cervical spine reveals no obvious acute traumatic injury. Patient does have degenerative changes of the cervical spine. U/S interpreted by me (1pt. min.). @ -None done What testing was considered but not performed or refused? (CT, X-rays, U/S, labs)? Why? @ -None What meds were considered but not given or refused? Why? @ -None Did you discuss the management of the patient with other professionals (professionals i.e. MARLO Maldonado, TRAVEL FREIGHT AND PASSENGER AGENT, lab, RT, psych nurse, social psychologist, lookback coordinator, teacher, aoc operations intelligence officer, protective services case worker)? Give summary @ -No Was smoking cessation discussed for >3mins.? @ -No Was critical care preformed (if so, how long)? @ -No Were there social determinants of health that impacted care today? How? (Homelessness, low income, unemployed, alcoholism, drug addiction, transportation, low edu. Level, literacy, decrease access to med. care, penitentiary, rehab)? @ -No Was there de-escalation of care discussed even if they declined (Discuss DNR or withdrawal of care, Hospice)? DNR status @ -No What co-morbidities impacted this encounter? (DM, HTN, Smoking, COPD, CAD, Cancer, CVA, ARF, Chemo, Hep., AIDS, mental health diagnosis, sleep apnea, morbid obesity)? @ -None Was patient admitted / discharged? Hospital course, mention meds given and route, prescriptions, significant lab abnormalities, going to OR and other pertinent info. @ -Patient presents with headaches, cervical spine pain, vertigo. Worse than what she is experienced in the past. No history of migraines. Presents for further evaluation. Does have a history of Chiari surgery per patient. We will obtain CT imaging to rule out intracranial causes of the vertigo in addition to basic labs. She will be symptomatically treated with meclizine, as well as migraine cocktail. Patient in agreement this plan. Vital signs within acceptable limits. Laboratory studies unremarkable. EKG unremarkable. Imaging negative for any obvious acute process. On reevaluation, patient still having headache, vertigo symptoms and neck pain have resolved. We will administer additional analgesia medications at this time. She is in agreement this plan. On reevaluation, patient is feeling improved. She will be discharged home at this time. Patient was in agreement this plan. Recommended follow-up with her neurologist. I will provide the patient with a prescription for meclizine. I instructed the patient to follow up with their PCP in the next 1-3 days.. I explained that the patient should return to the emergency department if they experience any worsening symptoms. Strict return precautions were discussed with the patient. The patient expressed understanding of these instructions. I answered all questions that the patient had. The patient was discharged home in good condition with their prescriptions and follow up information. Undiagnosed new problem with uncertain prognosis? @ -No Drug Therapy requiring intensive monitoring for toxicity (Heparin, Nitro, Insulin, Cardizem)? @ -No Were any procedures done? @ -No Diagnosis/symptom? @ -Headache, dizziness Acute, or Chronic, or Acute on Chronic? @ -Acute Uncomplicated (without systemic symptoms) or Complicated (systemic symptoms)? @ -Complicated Side effects of treatment? @ -No Exacerbation, Progression, or Severe Exacerbation? @ -No Poses a threat to life or bodily function? How? (Chest pain, [place], [place], pneumonia, PE, COPD, DKA, ARF, appy, cholecystitis, CVA, Diverticulitis, Homicidal, Suicidal, threat to staff... and all critical care pts) @ -Unlikely - Lab Data Result diagrams: 03/21/24 09:17 03/21/24 10:02 Lab Results 03/21/24 03/21/24 03/21/24 Range/Units 09:17 09:17 09:17 WBC 10.6 (3.8-10.6) k/uL RBC 3.96 (3.80-5.40) m/uL Hgb 11.7 (11.4-16.0) gm/dL Hct 35.4 (34.0-46.0) % MCV 89.4 (80.0-100.0) fL MCH 29.5 (25.0-35.0) pg MCHC 33.0 (31.0-37.0) g/dL RDW 14.3 (11.5-15.5) % Plt Count 243 (150-450) k/uL MPV 7.7 Neutrophils % 65 % Lymphocytes % 24 % Monocytes % 5 % Eosinophils % 4 % Basophils % 0 % Neutrophils # 6.9 (1.3-7.7) k/uL Lymphocytes # 2.6 (1.0-4.8) k/uL Monocytes # 0.5 (0-1.0) k/uL Eosinophils # 0.4 (0-0.7) k/uL Basophils # 0.0 (0-0.2) k/uL PT 10.0 (10.0-12.5) sec INR 0.9 (<1.2) APTT 25.5 (22.0-30.0) sec Sodium (137-145) mmol/L Potassium (3.5-5.1) mmol/L Chloride (98-107) mmol/L Carbon Dioxide (22-30) mmol/L Anion Gap mmol/L BUN (7-17) mg/dL Creatinine (0.52-1.04) mg/dL Est GFR (CKD-EPI)AfAm (>60 ml/min/1.73 sqM) Est GFR (CKD-EPI)NonAf (>60 ml/min/1.73 sqM) Glucose (74-99) mg/dL Calcium (8.4-10.2) mg/dL Total Bilirubin (0.2-1.3) mg/dL AST (14-36) U/L ALT (4-34) U/L Alkaline Phosphatase (38-126) U/L Total Protein (6.3-8.2) g/dL Albumin (3.5-5.0) g/dL Urine Color Colorless Urine Appearance Clear (Clear) Urine pH 6.0 (5.0-8.0) Ur Specific [place] 1.003 (1.001-1.035) Urine Protein Negative (Negative) Urine Glucose (UA) Negative (Negative) Urine Ketones Negative (Negative) Urine Blood Negative (Negative) Urine Nitrite Negative (Negative) Urine Bilirubin Negative (Negative) Urine Urobilinogen <2.0 (<2.0) mg/dL Ur Leukocyte Esterase Moderate H (Negative) Urine RBC <1 (0-5) /hpf Urine WBC 6 H (0-5) /hpf Ur Squamous Epith Cells 1 (0-4) /hpf Urine Bacteria Occasional H (None) /hpf 03/21/24 Range/Units 10:02 WBC (3.8-10.6) k/uL RBC (3.80-5.40) m/uL Hgb (11.4-16.0) gm/dL Hct (34.0-46.0) % MCV (80.0-100.0) fL MCH (25.0-35.0) pg MCHC (31.0-37.0) g/dL RDW (11.5-15.5) % Plt Count (150-450) k/uL MPV Neutrophils % % Lymphocytes % % Monocytes % % Eosinophils % % Basophils % % Neutrophils # (1.3-7.7) k/uL Lymphocytes # (1.0-4.8) k/uL Monocytes # (0-1.0) k/uL Eosinophils # (0-0.7) k/uL Basophils # (0-0.2) k/uL PT (10.0-12.5) sec INR (<1.2) APTT (22.0-30.0) sec Sodium 135 L (137-145) mmol/L Potassium 4.5 (3.5-5.1) mmol/L Chloride 104 (98-107) mmol/L Carbon Dioxide 28 (22-30) mmol/L Anion Gap 3 mmol/L BUN 8 (7-17) mg/dL Creatinine 0.65 (0.52-1.04) mg/dL Est GFR (CKD-EPI)AfAm >90 (>60 ml/min/1.73 sqM) Est GFR (CKD-EPI)NonAf >90 (>60 ml/min/1.73 sqM) Glucose 79 (74-99) mg/dL Calcium 8.5 (8.4-10.2) mg/dL Total Bilirubin 0.4 (0.2-1.3) mg/dL AST 30 (14-36) U/L ALT 18 (4-34) U/L Alkaline Phosphatase 64 (38-126) U/L Total Protein 5.9 L (6.3-8.2) g/dL Albumin 3.7 (3.5-5.0) g/dL Urine Color Urine Appearance (Clear) Urine pH (5.0-8.0) Ur Specific [place] (1.001-1.035) Urine Protein (Negative) Urine Glucose (UA) (Negative) Urine Ketones (Negative) Urine Blood (Negative) Urine Nitrite (Negative) Urine Bilirubin (Negative) Urine Urobilinogen (<2.0) mg/dL Ur Leukocyte Esterase (Negative) Urine RBC (0-5) /hpf Urine WBC (0-5) /hpf Ur Squamous [place] Cells (0-4) /hpf Urine Bacteria (None) /hpf - EKG Data -: EKG Interpreted by Me EKG Comments: 12-lead Electrocardiogram Interpretation Note EKG was reviewed and interpreted by myself. 12-lead ECG performed at 0912 is interpreted by me as revealing normal sinus rhythm at a rate of 58 beats per minute. [place] is normal. AR interval is 227 ms, QRS durations 92 ms, QTc is 436 ms.. There were no ST or T wave abnormalities to suggest myocardial ischemia or injury. R wave progression across the precordium was satisfactory. By my interpretation this EKG is non-diagnostic for acute ischemia. Disposition Clinical Impression: Headache, Dizziness Disposition: HOME SELF-CARE Condition: Good Instructions (If sedation given, give patient instructions): Acute Headache (ED), Dizziness (ED) Prescriptions: Meclizine [Antivert] 25 mg PO TID PRN 7 Days #21 tab PRN Reason: Vertigo Is patient prescribed a controlled substance at d/c from ED?: No Referrals: Ihsan Ding DO [Primary Care Provider] - 1-2 days Time of Disposition: 11:56
--- NOTE | 2024-03-21 10:09 | CT ---
EXAMINATION TYPE: CT brain dick vazquez con DATE OF EXAM: 03/21/2024 COMPARISON: 02/04/2023 HISTORY: Dizzy/headache CT DLP: 1367.[address] of the brain was performed. The ventricles, basal cisterns and sulci overlying the cerebral convexities demonstrate mild enlargem ent. There is no evidence for intracranial hemorrhage or sulcal effacement. There is decreased attenuatio n about the periventricular white matter and deep white matter of both cerebral hemispheres, compatib le with chronic small vessel ischemia. No mass effects are seen. If symptoms persist consider MRI. Osseous calvarium is intact. IMPRESSION: 1. Age related atrophic and chronic small vessel ischemic change without acute intracranial process seen at this time. CT Cervical Spine: Unenhanced CT of the cervical spine was performed with bone and soft tissue window settings submitted . Coronal and sagittal reconstruction is obtained. There is normal alignment and prevertebral soft tissues. No evidence for acute cervical fracture . Scattered degenerative disc disease and spondylosis. Postoperative changes of ACDF. Biapical scarring . IMPRESSION: 1. No evidence for acute fracture or subluxation of the cervical spine.
[2024-03-21 10:30] LABS: ALT 18 U/L (4-34); AST 30 U/L (14-36); African American GFR (CKD) >90 (>60 ml/min/1.73 sqM); Albumin 3.7 g/dL (3.5-5.0); Alkaline Phosphatase 64 U/L (38-126); Anion Gap 3 mmol/L; Blood Urea Nitrogen 8 mg/dL (7-17); Calcium 8.5 mg/dL (8.4-10.2); Carbon Dioxide 28 mmol/L (22-30); Chloride 104 mmol/L (98-107); Glucose 79 mg/dL (74-99); Non-African American GFR(CKD) >90 (>60 ml/min/1.73 sqM); Potassium 4.5 mmol/L (3.5-5.1); Sodium 135 mmol/L (137-145); Total Bilirubin 0.4 mg/dL (0.2-1.3); Total Protein 5.9 g/dL (6.3-8.2)
--- NOTE | 2024-03-21 10:31 | XR ---
EXAMINATION TYPE: XR chest 1V portable DATE OF EXAM: 03/21/2024 HISTORY: Shortness of breath. COMPARISON: 02/09/2022 TECHNIQUE: Single view of the chest is submitted. FINDINGS: Demonstrated are scattered senescent parenchymal change. There is no evidence for focal infiltrate. The heart is stable. Hilar and mediastinal structures are within normal limits. Degenerative changes are seen of the dorsal spine. IMPRESSION: 1. Chronic changes without evidence for acute pulmonary disease.
[2024-03-21] MEDS: KETOROLAC 15 MG/ML 1 ML VIAL IVP STA (10:46)
--- NOTE | 2024-03-21 11:22 | CT ---
EXAMINATION TYPE: CT angio head neck CT DLP: 410 mGycm, Automated exposure control for dose reduction was used. DATE OF EXAM: 03/21/2024 10:25 AM COMPARISON: CTA brain and neck of 02/04/2023 CLINICAL INDICATION:Female, 58 years old with history of dizzy; PHH, Dizziness/headache TECHNIQUE: Axially acquired helical CT angiogram of the head and neck was obtained with contrast. Axi al images are supplemented with 3D reconstructions and MIP images which were post-processed at an in dependent workstation. NASCET criteria used. Contrast used:65 ml mL of Isovue 370 without and with IV Contrast, Oral contrast used: None. FINDINGS: CTA HEAD: No evidence of acute intracranial hemorrhage, mass effect, or midline shift. The ventricles, sulci, a nd cisterns are unremarkable. Anterior fusion strut and screws are in place and the fusion appears s olid. The visualized portions of the internal carotid arteries, middle cerebral arteries, anterior cerebral arteries, and posterior cerebral arteries are patent. The basilar and vertebral arteries are patent. CTA NECK: Right Carotid System: The common carotid artery and external carotid artery are patent. The carotid bifurcation demonstrate s no evidence of hemodynamically significant stenosis. The remaining portions of the internal carotid artery demonstrate normal size without significant narrowing. Left Carotid System: The common carotid artery and external carotid artery are patent. The carotid bifurcation demonstrate s no evidence of hemodynamically significant stenosis. A small amount of calcific plaque is seen at t he left carotid bifurcation. The remaining portions of the internal carotid artery demonstrate isaura l size without significant narrowing. Vertebral arteries are patent without evidence hemodynamically significant stenosis. There is a three-vessel aortic arch. The origins of the great vessels are patent. No evidence of hemo dynamically significant stenosis. Upper thorax: Unremarkable. IMPRESSION: 1. No evidence of dissection of the cervical internal carotid arteries or vertebral arteries or any e vidence of significant stenosis at the carotid bifurcations. 2. No evidence of intracranial high-grade stenosis or intracranial aneurysm.
[2024-03-21] MEDS: HYDROmorphone 0.5 MG/0.5 ML SYRINGE IVP STA (11:36)
[2024-03-21] MEDS: MAGNESIUM SULFATE-D5W PMX 1 GM in DEXTROSE/WATER 1 100ML.BAG IVPB ONE (11:37)
[2024-03-21 12:42] VITALS: BP 111/46; PULSE 57; TEMP 97.6
== END 2024-03-21 12:42 | disposition home or self-care (01) ==
LOC: EC 08:37
DX: R51.9 Headache, unspecified (principal); R42 Dizziness and giddiness; F17.200 Nicotine dependence, unspecified, uncomplicated; Z88.0 Allergy status to penicillin
CPT/HCPCS: 36415; 93005; 80053; 85025; 85610; 85730; 81001; 71045; 72125; 70496; 70450; 70498; 99285; 96365; 96375 ×4; 96361 ×2; J1200; J2765; J3475; J1885; J1170; Q9967

== ENCOUNTER 2024-04-03 12:00 | Day surgery (SDC) | payer MEDICARE, OTHER ==
[~2024-04-03 12:00] MED LIST changes: +LACTATED RINGERS 1,000 ML BAG ONE; -LACTATED RINGERS 1,000 ML IV SCH; +PROPOFOL 10 MG/ML 20 ML VIAL IV ONE
--- NOTE | 2024-04-14 15:52 | PCN ---
PROCEDURE NOTE PROCEDURE: Colonoscopy. PREOPERATIVE DIAGNOSIS: Diverticulitis. POSTOPERATIVE DIAGNOSES: 1. Diverticulosis. 2. Colon polyps. ANESTHESIA: MAC. DESCRIPTION OF PROCEDURE: The patient was placed on the endoscopy table in the lateral position. She received IV sedation. Digital rectal exam was performed. This revealed no abnormalities. The flexible colonoscope was then placed into the anus and passed throughout the entire colon. The ileocecal valve was visualized. The cecum, ascending, and transverse colon appeared normal. In the descending colon, there was diverticulosis seen. In the sigmoid colon, there was extensive diverticulosis seen. There were also polyps. These were removed with the cold forceps. Scope was brought back to the rectum and another polyp was removed with cold forceps. The scope was withdrawn from the patient. MMODL / IJN: [id number] /
== END 2024-04-03 12:17 ==
LOC: ORWHC2ENDO 12:00
PROVIDERS: ATTEND Surgery
DX: K62.1 Rectal polyp (principal); K63.5 Polyp of colon; K57.30 Diverticulosis of large intestine without perforation or abscess without bleeding; E78.5 Hyperlipidemia, unspecified; E07.9 Disorder of thyroid, unspecified; F17.210 Nicotine dependence, cigarettes, uncomplicated; F32.A Depression, unspecified; Z88.0 Allergy status to penicillin; Z79.890 Hormone replacement therapy; Z79.899 Other long term (current) drug therapy
CPT/HCPCS: 45380; 88305

== ENCOUNTER → 2024-04-10 | Outpatient (CLI) | payer MEDICARE, OTHER | LOC: PNWHC3 07:30 | PROVIDERS: ATTEND Specialist | DX: M47.26 Other spondylosis with radiculopathy, lumbar region (principal); M96.1 Postlaminectomy syndrome, not elsewhere classified; Z88.0 Allergy status to penicillin; Z87.891 Personal history of nicotine dependence | CPT/HCPCS: 99212 ==

== ENCOUNTER 2024-04-19 08:45 | Emergency (ER) | payer MEDICARE, OTHER ==
[2024-04-19 08:55] VITALS: TEMP 98
--- NOTE | 2024-04-19 10:17 | ED ---
Abdominal Pain HPI - General Chief Complaint: Abdominal Pain Stated Complaint: abd pain Time Seen by Provider: 04/19/24 10:14 Source: patient, RN notes reviewed Mode of arrival: ambulatory Limitations: no limitations - History of Present Illness Initial Comments: 58-year-old female presented to ER with a chief complaint of left lower quadrant abdominal pain. Patient states that she was recently admitted for complicated diverticulitis with abscess by Dr. Alvarenga in January. She has persistently experienced abdominal pain but reports the past couple of days she has noticed an increase in pain rating it 10 out of 10 and described it as sharp in nature. She denies any diarrhea, nausea, vomiting or fevers. She was seen by Dr. Alvarenga yesterday and started on Levaquin and Flagyl. She has had 1 dose of both antibiotics at this time. She has been taking prescribed [place] without relief. Denies any other complaints. - Related Data Home Medications Medication Instructions Recorded Confirmed Ezetimibe [Zetia] 10 mg PO HS 09/05/14 02/03/24 Levothyroxine Sodium [Synthroid] 25 mcg PO DAILY 03/13/16 02/03/24 Omeprazole 40 mg PO HS 11/13/16 02/03/24 clonazePAM [KlonoPIN] 0.25 mg PO HS 05/03/17 02/03/24 Methylphenidate HCl 20 mg PO TID@0500,1200,1700 09/09/18 02/03/24 busPIRone HCL 15 mg PO BID 02/05/19 02/03/24 Atorvastatin Calcium [Lipitor] 10 mg PO HS 10/06/19 02/03/24 estradioL [Estrace] 0.5 mg PO DAILY 10/06/19 02/03/24 Citalopram Hydrobromide [CeleXA] 40 mg PO DAILY 02/09/22 02/03/24 Fluticasone Nasal [place] [Flonase 1 spr EA NOSTRIL BID 02/04/23 02/03/24 Nasal [place]] Naloxone HCl [Narcan] 4 mg NASAL DIRECTED PRN 02/04/23 02/03/24 Brexpiprazole [Rexulti] 0.25 mg PO HS 09/18/23 02/03/24 Cholecalciferol [Vitamin D3 (25 50 mcg PO DAILY 09/18/23 02/03/24 Mcg = 1000 Iu)] Multivitamins, Thera [Multivitamin 1 tab PO DAILY 09/18/23 02/03/24 (formulary)] Albuterol Sulfate [Albuterol 2 puff PO RT-Q6H PRN 02/03/24 02/03/24 Sulfate Hfa] Cetirizine HCl [Zyrtec] 10 mg PO HS 02/03/24 02/03/24 Previous Rx's Medication Instructions Recorded Diclofenac Sodium Gel [Voltaren 1% 2 - 4 gm TOPICAL DAILY PRN 30 Days 12/13/23 Gel] #1 each cefUROXime axetiL [Ceftin] 500 mg PO BID 10 Days #10 tab 02/08/24 metroNIDAZOLE [Flagyl] 500 mg PO TID 10 Days #30 tab 02/08/24 HYDROcodone/APAP 10-325MG [[place] 1 tab PO TID PRN 30 Days #90 tab 02/14/24 10-325] HYDROcodone/APAP 10-325MG [[place] 1 tab PO TID PRN 30 Days #90 tab 02/14/24 10-325] tiZANidine HCL 2 mg PO HS 30 Days #30 tab 02/28/24 Meclizine [Antivert] 25 mg PO TID PRN 7 Days #21 tab 03/21/24 Allergies Allergy/AdvReac Type Severity Reaction Status Date / Time Penicillins Allergy Childhood Verified 04/19/24 08:56 Rash Review of Systems ROS Statement: Those systems with pertinent positive or pertinent negative responses have been documented in the HPI. ROS Other: All systems not noted in ROS Statement are negative. Past Medical History Past Medical History: Asthma, COPD, GERD/Reflux, Hyperlipidemia, Osteoarthritis (OA), Syncope, Thyroid Disorder Additional Past Medical History / Comment(s): kidney stones, hypoglycemia, chronic neck and L shoulder, lower back pain. Hx L facial and L ankle fxs, sinus problems, vertigo, falls in past due to syncope, low BP at times. 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 Rectocele repair. colonoscopy, d&c Past Anesthesia/Blood Transfusion Reactions: Previous Problems w/ Anesthesia Additional Past Anesthesia/Blood Transfusion Reaction / Comment(s): "Takes longer to wake up from anesthesia." Past Psychological History: ADD/ADHD, Anxiety, Depression Smoking Status: Current every day smoker Past Alcohol Use History: None Reported Past Drug Use History: None Reported - Past Family History Mother History Unknown: Yes Family Medical History: Cancer Additional Family Medical History / Comment(s): lung Father Family Medical History: Asthma, COPD, Osteoarthritis (OA) Additional Family Medical History / Comment(s): Father at age 80 yrs. General Exam Limitations: no limitations General appearance: alert, in no apparent distress Respiratory exam: Present: normal lung sounds bilaterally. Absent: respiratory distress, wheezes, rales, rhonchi, stridor Cardiovascular Exam: Present: regular rate, normal rhythm, normal heart sounds. Absent: systolic murmur, diastolic murmur, rubs, gallop, clicks GI/Abdominal exam: Present: soft, tenderness (LLQ), normal bowel sounds Extremities exam: Present: normal inspection, full ROM, normal capillary refill. Absent: tenderness, pedal edema, joint swelling, calf tenderness Neurological exam: Present: alert, oriented X3, CN II-XII intact Skin exam: Present: warm, dry, intact, normal color. Absent: rash Course Vital Signs 04/19/24 08:54 Temperature 98 F Pulse Rate 64 Respiratory 20 Rate Blood Pressure 95/58 O2 Sat by Pulse 99 Oximetry Medical Decision Making - Medical Decision Making Was pt. sent in by a medical professional or institution (, PA, ASSEMBLY MEMBER, urgent care, hospital, or longterm...) When possible be specific @ -No Did you speak to anyone other than the patient for history (EMS, parent, family, police, friend...)? What history was obtained from this source @ -No Did you review nursing and triage notes (agree or disagree)? Why? @ -I reviewed and agree with nursing and triage notes Were old charts reviewed (outside hosp., previous admission, EMS record, old EKG, old radiological studies, urgent care reports/EKG's, longterm records)? Report findings @ -No old charts were reviewed Differential Diagnosis (chest pain, altered mental status, abdominal pain women, abdominal pain men, vaginal bleeding, weakness, fever, dyspnea, syncope, headache, dizziness, GI bleed, back pain, seizure, CVA, palpatations, mental health, musculoskeletal)? @ -Differential Abdominal Pain Women: Appendicitis, Cholecystitis, diverticulosis, ischemic bowel, pancreatitis, hepatitis, UTI, gastroenteritis, AAA, incarcerated hernia, bowel obstruction, constipation, inflammatory bowel, hepatitis, peptic ulcer disease, splenic infarction, perforated viscus, vulvitis, ovarian torsion, PID, kidney stone, placenta abruption, this is not meant to be an all-inclusive list EKG interpreted by me (3pts min.). @ -None done X-rays interpreted by me (1pt min.). @ -None done CT interpreted by me (1pt min.). @ -CT abdomen pelvis showing diverticulosis without evidence of acute diverticulitis. U/S interpreted by me (1pt. min.). @ -None done What testing was considered but not performed or refused? (CT, X-rays, U/S, labs)? Why? @ -None What meds were considered but not given or refused? Why? @ -None Did you discuss the management of the patient with other professionals (professionals i.e. , PA, ASSEMBLY MEMBER, lab, RT, psych nurse, social welfare research worker, brick tosser, teacher, field health officer, correctional case records supervisor)? Give summary @ -No Was smoking cessation discussed for >3mins.? @ -No Was critical care preformed (if so, how long)? @ -No Were there social determinants of health that impacted care today? How? (Homelessness, low income, unemployed, alcoholism, drug addiction, transportation, low edu. Level, literacy, decrease access to med. care, retirement, rehab)? @ -No Was there de-escalation of care discussed even if they declined (Discuss DNR or withdrawal of care, Hospice)? DNR status @ -No What co-morbidities impacted this encounter? (DM, HTN, Smoking, COPD, CAD, Cancer, CVA, ARF, Chemo, Hep., AIDS, mental health diagnosis, sleep apnea, morbid obesity)? @ -None Was patient admitted / discharged? Hospital course, mention meds given and route, prescriptions, significant lab abnormalities, going to OR and other pertinent info. @ -58-year-old female presented to the ER with a chief complaint of left lower quadrant abdominal pain. History and physical exam completed. Vitals stable. Patient in no signs of acute distress and nontoxic-appearing. Focal left lower quadrant abdominal tenderness. No rebound or guarding. No overlying skin changes. Laboratory studies obtained showing a mild leukocytosis 10.7 with lactic acidosis 2.6 laboratory studies otherwise unremarkable. CT showing diverticulosis without evidence of acute diverticulitis. Patient received IV fluids, IV Dilaudid and Zofran for symptom control in the ER. Upon reevaluation, patient resting comfortably in exam room in no signs of acute distress. Results discussed with patient, all questions answered. Advised close follow-up with Dr. Alvarenga. Patient states she has an appointment next week. Strict return parameters discussed. Patient discharged stable condition. Patient verbally expressed understanding and agreed with care plan. Case dis cussed with ED attending, Dr. Rich. Undiagnosed new problem with uncertain prognosis? @ -No Drug Therapy requiring intensive monitoring for toxicity (Heparin, Nitro, Insulin, Cardizem)? @ -No Were any procedures done? @ -No Diagnosis/symptom? @ -Abdominal pain Acute, or Chronic, or Acute on Chronic? @ -Acute Uncomplicated (without systemic symptoms) or Complicated (systemic symptoms)? @ -Uncomplicated Side effects of treatment? @ -No Exacerbation, Progression, or Severe Exacerbation? @ -No Poses a threat to life or bodily function? How? (Chest pain, [place], [place], pneumonia, PE, COPD, DKA, ARF, appy, cholecystitis, CVA, Diverticulitis, Homicidal, Suicidal, threat to staff... and all critical care pts) @ -No - Lab Data Result diagrams: 04/19/24 10:23 04/19/24 10:23 Lab Results 04/19/24 04/19/24 04/19/24 Range/Units 10:23 10:23 10:23 WBC 10.7 H (3.8-10.6) k/uL RBC 3.97 (3.80-5.40) m/uL Hgb 12.0 (11.4-16.0) gm/dL Hct 36.2 (34.0-46.0) % MCV 91.3 (80.0-100.0) fL MCH 30.3 (25.0-35.0) pg MCHC 33.1 (31.0-37.0) g/dL RDW 14.2 (11.5-15.5) % Plt Count 228 (150-450) k/uL MPV 8.6 Neutrophils % 67 % Lymphocytes % 24 % Monocytes % 5 % Eosinophils % 3 % Basophils % 0 % Neutrophils # 7.2 (1.3-7.7) k/uL Lymphocytes # 2.6 (1.0-4.8) k/uL Monocytes # 0.5 (0-1.0) k/uL Eosinophils # 0.3 (0-0.7) k/uL Basophils # 0.0 (0-0.2) k/uL Sodium 138 (137-145) mmol/L Potassium 4.9 (3.5-5.1) mmol/L Chloride 106 (98-107) mmol/L Carbon Dioxide 28 (22-30) mmol/L Anion Gap 4 mmol/L BUN 7 (7-17) mg/dL Creatinine 0.70 (0.52-1.04) mg/dL Est GFR (CKD-EPI)AfAm >90 (>60 ml/min/1.73 sqM) Est GFR (CKD-EPI)NonAf >90 (>60 ml/min/1.73 sqM) Glucose 81 (74-99) mg/dL Plasma Lactic Acid [place] 2.6 H* (0.7-2.0) mmol/L Calcium 9.2 (8.4-10.2) mg/dL Total Bilirubin 0.6 (0.2-1.3) mg/dL AST 28 (14-36) U/L ALT 20 (4-34) U/L Alkaline Phosphatase 70 (38-126) U/L Total Protein 6.7 (6.3-8.2) g/dL Albumin 4.3 (3.5-5.0) g/dL Amylase 32 (30-110) U/L Lipase 76 (23-300) U/L - Radiology Data Radiology results: report reviewed, image reviewed Disposition Clinical Impression: Lactic acidosis, Abdominal pain Disposition: HOME SELF-CARE Condition: Stable Instructions (If sedation given, give patient instructions): Abdominal Pain (ED) Additional Instructions: Follow-up with Dr. Alvarenga as scheduled. Continue taking antibiotics as prescribed. Return to the ER for any new or worsening concerns. Is patient prescribed a controlled substance at d/c from ED?: No Referrals: Ihsan Ding DO [Primary Care Provider] - 1-2 days Jeremiah Alvarenga MD [STAFF PHYSICIAN] - 1-2 days Time of Disposition: 12:12
[2024-04-19] MEDS: ONDANSETRON 4 MG/2 ML VIAL IVP STA (10:27)
[2024-04-19] MEDS: HYDROmorphone 1 MG/ML 1 ML SYRINGE IVP STA ×2 (10:28→11:50)
[2024-04-19] MEDS: SODIUM CHLORIDE 0.9% 1,000 ML IV STA (10:28)
[2024-04-19 10:38] LABS: Basophils % (A) 0 %; Eosinophils # (A) 0.3 k/uL (0-0.7); Eosinophils % (A) 3 %; HCT 36.2 % (34.0-46.0); Lymphocytes # (A) 2.6 k/uL (1.0-4.8); Lymphocytes % (A) 24 %; MCH 30.3 pg (25.0-35.0); MCHC 33.1 g/dL (31.0-37.0); MCV 91.3 fL (80.0-100.0); Mean Platelet Volume 8.6; Monocytes # (A) 0.5 k/uL (0-1.0); Monocytes % (A) 5 %; Neutrophils # (A) 7.2 k/uL (1.3-7.7); Neutrophils % (A) 67 %; Platelet Count 228 k/uL (150-450); RBC 3.97 m/uL (3.80-5.40); RDW 14.2 % (11.5-15.5); WBC 10.7 k/uL (3.8-10.6)
[2024-04-19 10:45] LABS: ALT 20 U/L (4-34); AST 28 U/L (14-36); African American GFR (CKD) >90 (>60 ml/min/1.73 sqM); Albumin 4.3 g/dL (3.5-5.0); Alkaline Phosphatase 70 U/L (38-126); Amylase 32 U/L (30-110); Anion Gap 4 mmol/L; Blood Urea Nitrogen 7 mg/dL (7-17); Calcium 9.2 mg/dL (8.4-10.2); Carbon Dioxide 28 mmol/L (22-30); Chloride 106 mmol/L (98-107); Glucose 81 mg/dL (74-99); Lipase 76 U/L (23-300); Non-African American GFR(CKD) >90 (>60 ml/min/1.73 sqM); Potassium 4.9 mmol/L (3.5-5.1); Sodium 138 mmol/L (137-145); Total Bilirubin 0.6 mg/dL (0.2-1.3); Total Protein 6.7 g/dL (6.3-8.2)
--- NOTE | 2024-04-19 11:46 | CT ---
EXAMINATION TYPE: CT abdomen pelvis w con DATE OF EXAM: 04/19/2024 COMPARISON: 02/06/2024 HISTORY: LLQ abd pain hx diverticulitis CT DLP: 996.5 mGycm Automated exposure control for dose reduction was used. CONTRAST: CT scan of the abdomen pelvis is performed with IV Contrast, patient injected with 100ml mL of Isovue 300. FINDINGS- LUNG BASES- basilar atelectasis or scarring. LIVER/GB- low attenuation liver compatible with hepatic steatosis. Mild central intrahepatic biliar y dilation. Gallbladder not seen correlate for prior cholecystectomy. PANCREAS- atrophic changes of the pancreas. SPLEEN- No gross abnormality is seen. ADRENALS- No gross abnormality is seen. KIDNEYS/BLADDER- no hydronephrosis nephrolithiasis or renal mass. BOWEL- small hiatal hernia with previous surgery in the epigastric region. No evidence of obstructio n. Appendix not seen. There is changes of moderate diverticulosis but no CT evidence of diverticuliti s. LYMPH NODES- No greater than 1cm abdominal or pelvic lymph nodes are appreciated. OSSEOUS STRUCTURES- multilevel hypertrophic and degenerative change. Postsurgical changes are seen i n lower lumbar spine. Bilateral hip arthropathy. OTHER- subcutaneous implantable device overlying right flank subcutaneous posterior tissues. Aorta o f normal caliber with mild atherosclerotic change. Bladder distends normally. No free fluid. No free air. 1 cm soft tissue density in the right pelvis image 67 nonspecific could represent residual ovari an tissue. Findings are suggestive of prior hysterectomy. IMPRESSION- 1. Diverticulosis but no CT evidence of acute diverticulitis.
[2024-04-19 12:55] VITALS: BP 100/63; PULSE 62; RESP 18
== END 2024-04-19 12:30 | disposition home or self-care (01) ==
LOC: EC 08:45
CPT/HCPCS: 36415; 74177; 80053; 82150; 83605; 83690; 85025; 96361; 96374; 96375; 96376; 99284

== ENCOUNTER 2024-05-01 07:53 | Emergency (ER) | payer MEDICARE, OTHER ==
[2024-05-01 07:56] VITALS: RESP 18; TEMP 97.9
[2024-05-01] MEDS: SODIUM CHLORIDE 0.9% 1,000 ML IV STA (09:08)
[2024-05-01] MEDS: MORPHINE SULFATE 4 MG/ML SYRINGE IVP STA ×2 (09:17→10:19)
[2024-05-01 09:22] LABS: Basophils % (A) 0 %; Eosinophils # (A) 0.3 k/uL (0-0.7); Eosinophils % (A) 3 %; HCT 34.2 % (34.0-46.0); HGB 11.6 gm/dL (11.4-16.0); Lymphocytes # (A) 2.7 k/uL (1.0-4.8); Lymphocytes % (A) 23 %; MCH 30.3 pg (25.0-35.0); MCV 88.9 fL (80.0-100.0); Mean Platelet Volume 8.2; Monocytes # (A) 0.5 k/uL (0-1.0); Monocytes % (A) 5 %; Neutrophils # (A) 7.8 k/uL (1.3-7.7); Neutrophils % (A) 67 %; Platelet Count 230 k/uL (150-450); RBC 3.84 m/uL (3.80-5.40); RDW 14.3 % (11.5-15.5); WBC 11.6 k/uL (3.8-10.6)
[2024-05-01 09:25] LABS: Appearance,Urine Cloudy (Clear); Bacteria,Urine Few /hpf; Bilirubin,Urine Negative (Negative); Blood,Urine Negative (Negative); Color,Urine Colorless; Glucose,Urine (UA) Negative (Negative); Hyaline Casts,Urine 1 /lpf (0-2); Ketones,Urine Negative (Negative); Leukocyte Esterase,Urine Negative (Negative); Nitrite,Urine Negative (Negative); Protein,Urine Negative (Negative); Specific Gravity,Urine 1.004 (1.001-1.035); Squamous Epithelial Cell,Urine 23 /hpf (0-4); Urobilinogen,Urine <2.0 mg/dL (<2.0); WBC,Urine <1 /hpf (0-5)
[2024-05-01 09:33] LABS: ALT 19 U/L (4-34); AST 29 U/L (14-36); African American GFR (CKD) >90 (>60 ml/min/1.73 sqM); Albumin 3.9 g/dL (3.5-5.0); Alkaline Phosphatase 56 U/L (38-126); Anion Gap 5 mmol/L; Blood Urea Nitrogen 10 mg/dL (7-17); Calcium 8.8 mg/dL (8.4-10.2); Carbon Dioxide 26 mmol/L (22-30); Chloride 106 mmol/L (98-107); Glucose 87 mg/dL (74-99); Lipase 83 U/L (23-300); Non-African American GFR(CKD) >90 (>60 ml/min/1.73 sqM); Potassium 4.1 mmol/L (3.5-5.1); Sodium 137 mmol/L (137-145); Total Bilirubin 0.4 mg/dL (0.2-1.3); Total Protein 6.2 g/dL (6.3-8.2)
--- NOTE | 2024-05-01 10:16 | CT ---
EXAMINATION TYPE: CT abdomen pelvis w con CT DLP: 1051.2 mGycm, Automated exposure control for dose reduction was used. DATE OF EXAM: 05/01/2024 10:06 AM COMPARISON: 04/11/2024 CLINICAL INDICATION: Female, 58 years old with history of abd pain; LLQ abdominal pain, hx diverticul itis TECHNIQUE: Axial CT abdomen pelvis w con;Sagittal and coronal reformats were created on a separate w orkstation. Contrast used:100 ml mL of Isovue 300 with IV Contrast, (none if empty) Oral contrast used: without Oral Contrast (none if empty) FINDINGS: LOWER CHEST: Unremarkable ABDOMEN LIVER: Unremarkable GALLBLADDER AND BILE DUCTS: Gallbladder is surgically absent with mild intrahepatic and extra hepatic biliary dilatation likely physiologic and a postcholecystectomy change. No evidence of choledocholit hiasis. PANCREAS: Unremarkable. SPLEEN: Unremarkable. ADRENAL GLANDS: Unremarkable. KIDNEYS AND URETERS: No evidence of hydronephrosis or renal calculus. The ureters are unremarkable. PELVIS BLADDER: Unremarkable REPRODUCTIVE: The uterus is surgically absent. ABDOMEN & PELVIS STOMACH AND BOWEL: Postsurgical changes gastroesophageal junction. No evidence of bowel obstruction. Scattered colonic diverticula. Tubular structure thought to represent the appendix is within normal l imits PERITONEUM/RETROPERITONEUM: No evidence of pneumoperitoneum or free fluid. VASCULATURE: Mild atherosclerotic calcifications are present throughout the abdominal aorta and its b ranches. No evidence of aortic aneurysm. MUSCULOSKELETAL: No acute osseous abnormalities right sacroiliac fixation hardware appears intact. Fi xation hardware throughout the lower lumbar spine also appears intact. LYMPH NODES: No gross evidence for lymphadenopathy. SOFT TISSUE/ABDOMINAL WALL: Unremarkable IMPRESSION: 1. No evidence for acute left lower quadrant process to explain the patient's pain. No obstructive u ropathy or renal calculus. No diverticulitis. 2. Few scattered colonic diverticula without evidence for inflammation. 3. Surgical changes of the gastroesophageal junction
--- NOTE | 2024-05-01 11:06 | ED ---
Abdominal Pain HPI - General Chief Complaint: Abdominal Pain Stated Complaint: Abdominal Pain Time Seen by Provider: 05/01/24 08:06 Source: patient Mode of arrival: wheelchair Limitations: no limitations - History of Present Illness Initial Comments: 58-year-old female with past medical history of asthma, COPD, hyperlipidemia who presents emergency department with abdominal pain, nausea and vomiting. Patient has a history of diverticulosis. States that she is supposed to have surgery by Dr. Johnson on the . She is concerned that her infection is active and never cleared. She admits to vomiting. No fevers. Also reports to diarrhea. No chest pain or difficulty breathing. No other alleviating, precipitating or modifying factors - Related Data Home Medications Medication Instructions Recorded Confirmed Ezetimibe [Zetia] 10 mg PO HS 09/05/14 05/13/24 Levothyroxine Sodium [Synthroid] 25 mcg PO DAILY 03/13/16 05/13/24 Omeprazole 40 mg PO HS 11/13/16 05/13/24 clonazePAM [KlonoPIN] 0.5 mg PO HS 05/03/17 05/13/24 Methylphenidate HCl 20 mg PO TID@0500,1200,1700 09/09/18 05/13/24 Atorvastatin Calcium [Lipitor] 10 mg PO HS 10/06/19 05/13/24 estradioL [Estrace] 0.5 mg PO DAILY 10/06/19 05/13/24 Citalopram Hydrobromide [CeleXA] 40 mg PO DAILY 02/09/22 05/13/24 Fluticasone Nasal [place] [Flonase 1 spr EA NOSTRIL BID 02/04/23 05/13/24 Nasal [place]] Brexpiprazole [Rexulti] 0.25 mg PO HS 09/18/23 05/13/24 Cetirizine HCl [Zyrtec] 10 mg PO HS 02/03/24 05/13/24 Varenicline [Chantix Continuing 1 mg PO BID 05/08/24 05/13/24 Pack] Albuterol Inhaler [Ventolin Hfa 2 puff INHALATION RT-QID PRN 05/13/24 05/13/24 Inhaler] Diclofenac Sodium Gel [Voltaren 1% 2 - 4 gm TOPICAL TID PRN 05/13/24 05/13/24 Gel] HYDROcodone/APAP 10-325MG [[place] 1 tab PO TID 05/13/24 05/13/24 10-325] Ibuprofen [Motrin] 600 mg PO TID PRN 05/13/24 05/13/24 busPIRone HCl [Buspar] 10 mg PO BID 05/13/24 05/13/24 Previous Rx's Medication Instructions Recorded tiZANidine HCL 2 mg PO HS 30 Days #30 tab 05/04/24 Docusate [Colace] 100 mg PO BID #20 capsule 05/21/24 Ibuprofen [Motrin] 600 mg PO Q6HR PRN #40 tab 05/21/24 oxyCODONE HCL [OxyIR] 5 mg PO Q6H PRN 3 Days #10 tab 05/21/24 Allergies Allergy/AdvReac Type Severity Reaction Status Date / Time Penicillins Allergy Childhood Verified 05/13/24 10:21 Rash Review of Systems ROS Statement: Those systems with pertinent positive or pertinent negative responses have been documented in the HPI. ROS Other: All systems not noted in ROS Statement are negative. Past Medical History Past Medical History: Asthma, COPD, GERD/Reflux, Hyperlipidemia, Osteoarthritis (OA), Syncope, Thyroid Disorder Additional Past Medical History / Comment(s): kidney stones, hypoglycemia, chronic neck and L shoulder, lower back pain. Hx L facial and L ankle fxs, sinus problems, vertigo, falls in past due to syncope, low BP at times. Fusion of sacrum and iliac crest-per . 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 Rectocele repair. colonoscopy, d&c Past Anesthesia/Blood Transfusion Reactions: Previous Problems w/ Anesthesia Additional Past Anesthesia/Blood Transfusion Reaction / Comment(s): "Takes lo nger to wake up from anesthesia." Past Psychological History: ADD/ADHD, Anxiety, Depression Smoking Status: Current every day smoker Past Alcohol Use History: None Reported Past Drug Use History: None Reported - Past Family History Mother History Unknown: Yes Family Medical History: Cancer Additional Family Medical History / Comment(s): lung Father Family Medical History: Asthma, COPD, Osteoarthritis (OA) Additional Family Medical History / Comment(s): Father at age 80 yrs. General Exam Limitations: no limitations General appearance: alert, in no apparent distress Head exam: Present: atraumatic, normocephalic, normal inspection Eye exam: Present: normal appearance, PERRL, EOMI. Absent: scleral icterus, conjunctival injection, periorbital swelling ENT exam: Present: normal exam, mucous membranes moist Neck exam: Present: normal inspection. Absent: tenderness, meningismus, lymphadenopathy Respiratory exam: Present: normal lung sounds bilaterally. Absent: respiratory distress, wheezes, rales, rhonchi, stridor Cardiovascular Exam: Present: regular rate, normal rhythm, normal heart sounds. Absent: systolic murmur, diastolic murmur, rubs, gallop, clicks GI/Abdominal exam: Present: soft, tenderness (Left lower quadrant), normal bowel sounds. Absent: distended, guarding, rebound, rigid Extremities exam: Present: normal inspection, full ROM, normal capillary refill. Absent: tenderness, pedal edema, joint swelling, calf tenderness Back exam: Present: normal inspection Neurological exam: Present: alert, oriented X3, CN II-XII intact Psychiatric exam: Present: normal affect, normal mood Skin exam: Present: warm, dry, intact, normal color. Absent: rash Course Vital Signs 05/01/24 05/01/24 05/01/24 07:54 09:10 10:17 Temperature 97.9 F Pulse Rate 68 58 L 64 Respiratory 18 18 18 Rate Blood Pressure 120/65 117/58 129/61 O2 Sat by Pulse 97 97 96 Oximetry 05/01/24 11:18 Temperature Pulse Rate 61 Respiratory 18 Rate Blood Pressure 102/70 O2 Sat by Pulse 96 Oximetry Medical Decision Making - Medical Decision Making Was pt. sent in by a medical professional or institution (, PA, OFFSET PRESS OPERATOR, urgent care, hospital, or long-term...) When possible be specific @ -No Did you speak to anyone other than the patient for history (EMS, parent, family, police, friend...)? What history was obtained from this source @ -No Did you review nursing and triage notes (agree or disagree)? Why? @ -I reviewed and agree with nursing and triage notes Were old charts reviewed (outside hosp., previous admission, EMS record, old EKG, old radiological studies, urgent care reports/EKG's, long-term records)? Report findings @ -I reviewed previous hospitalization where patient was diagnosed with diverticulitis Differential Diagnosis (chest pain, altered mental status, abdominal pain women, abdominal pain men, vaginal bleeding, weakness, fever, dyspnea, syncope, headache, dizziness, GI bleed, back pain, seizure, CVA, palpatations, mental health, musculoskeletal)? @ -Differential Abdominal Pain Women: Appendicitis, Cholecystitis, diverticulosis, ischemic bowel, pancreatitis, hepatitis, UTI, gastroenteritis, AAA, incarcerated hernia, bowel obstruction, constipation, inflammatory bowel, hepatitis, peptic ulcer disease, splenic infarction, perforated viscus, vulvitis, ovarian torsion, PID, kidney stone, placenta abruption, this is not meant to be an all-inclusive list EKG interpreted by me (3pts min.). @ -Not done X-rays interpreted by me (1pt min.). @ -None done CT interpreted by me (1pt min.). @ -Yes and demonstrates no acute findings U/S interpreted by me (1pt. min.). @ -None done What testing was considered but not performed or refused? (CT, X-rays, U/S, labs)? Why? @ -None What meds were considered but not given or refused? Why? @ -None Did you discuss the management of the patient with other professionals (professionals i.e. , PA, OFFSET PRESS OPERATOR, lab, RT, psych nurse, high school social science teacher, front desk worker, teacher, retirement officer, case folder)? Give summary @ -No Was smoking cessation discussed for >3mins.? @ -No Was critical care preformed (if so, how long)? @ -No Were there social determinants of health that impacted care today? How? (Homelessness, low income, unemployed, alcoholism, drug addiction, transportation, low edu. Level, literacy, decrease access to med. care, long-term, rehab)? @ -No Was there de-escalation of care discussed even if they declined (Discuss DNR or withdrawal of care, Hospice)? DNR status @ -No What co-morbidities impacted this encounter? (DM, HTN, Smoking, COPD, CAD, Cancer, CVA, ARF, Chemo, Hep., AIDS, mental health diagnosis, sleep apnea, morbid obesity)? @ -None Was patient admitted / discharged? Hospital course, mention meds given and route, prescriptions, significant lab abnormalities, going to OR and other pertinent info. @ -Upon arrival patient seen and evaluated in room 7. Thorough history and physical exam was performed. IV access was established. Laboratory studies are conducted. CT was performed. No acute process identified. Patient will be discharged home at this time and is instructed to follow-up with her surgeon for further management. Undiagnosed new problem with uncertain prognosis? @ -No Drug Therapy requiring intensive monitoring for toxicity (Heparin, Nitro, Insulin, Cardizem)? @ -No Were any procedures done? @ -No Diagnosis/symptom? @ -Acute abdominal pain, history of diverticulitis Acute, or Chronic, or Acute on Chronic? @ -Acute Uncomplicated (without systemic symptoms) or Complicated (systemic symptoms)? @ -Complicated Side effects of treatment? @ -No Exacerbation, Progression, or Severe Exacerbation? @ -No Poses a threat to life or bodily function? How? (Chest pain, USA, PA, pneumonia, PE, COPD, DKA, ARF, appy, cholecystitis, CVA, Diverticulitis, Homicidal, Suicidal, threat to staff... and all critical care pts) @ -No - Lab Data Result diagrams: 05/01/24 09:07 05/01/24 09:07 Lab Results 05/01/24 05/01/24 05/01/24 Range/Units 09:07 09:07 09:07 WBC 11.6 H (3.8-10.6) k/uL RBC 3.84 (3.80-5.40) m/uL Hgb 11.6 (11.4-16.0) gm/dL Hct 34.2 (34.0-46.0) % MCV 88.9 (80.0-100.0) fL MCH 30.3 (25.0-35.0) pg MCHC 34.0 (31.0-37.0) g/dL RDW 14.3 (11.5-15.5) % Plt Count 230 (150-450) k/uL MPV 8.2 Neutrophils % 67 % Lymphocytes % 23 % Monocytes % 5 % Eosinophils % 3 % Basophils % 0 % Neutrophils # 7.8 H (1.3-7.7) k/uL Lymphocytes # 2.7 (1.0-4.8) k/uL Monocytes # 0.5 (0-1.0) k/uL Eosinophils # 0.3 (0-0.7) k/uL Basophils # 0.0 (0-0.2) k/uL Sodium 137 (137-145) mmol/L Potassium 4.1 (3.5-5.1) mmol/L Chloride 106 (98-107) mmol/L Carbon Dioxide 26 (22-30) mmol/L Anion Gap 5 mmol/L BUN 10 (7-17) mg/dL Creatinine 0.58 (0.52-1.04) mg/dL Est GFR (CKD-EPI)AfAm >90 (>60 ml/min/1.73 sqM) Est GFR (CKD-EPI)NonAf >90 (>60 ml/min/1.73 sqM) Glucose 87 (74-99) mg/dL Plasma Lactic Acid [place] (0.7-2.0) mmol/L Calcium 8.8 (8.4-10.2) mg/dL Total Bilirubin 0.4 (0.2-1.3) mg/dL AST 29 (14-36) U/L ALT 19 (4-34) U/L Alkaline Phosphatase 56 (38-126) U/L Total Protein 6.2 L (6.3-8.2) g/dL Albumin 3.9 (3.5-5.0) g/dL Lipase 83 (23-300) U/L Urine Color Colorless Urine Appearance Cloudy H (Clear) Urine pH 6.0 (5.0-8.0) Ur Specific [place] 1.004 (1.001-1.035) Urine Protein Negative (Negative) Urine Glucose (UA) Negative (Negative) Urine Ketones Negative (Negative) Urine Blood Negative (Negative) Urine Nitrite Negative (Negative) Urine Bilirubin Negative (Negative) Urine Urobilinogen <2.0 (<2.0) mg/dL Ur Leukocyte Esterase Negative (Negative) Urine WBC <1 (0-5) /hpf Ur Squamous Epith Cells 23 H (0-4) /hpf Urine Bacteria Few H (None) /hpf Hyaline Casts 1 (0-2) /lpf 05/01/24 Range/Units 09:07 WBC (3.8-10.6) k/uL RBC (3.80-5.40) m/uL Hgb (11.4-16.0) gm/dL Hct (34.0-46.0) % MCV (80.0-100.0) fL MCH (25.0-35.0) pg MCHC (31.0-37.0) g/dL RDW (11.5-15.5) % Plt Count (150-450) k/uL MPV Neutrophils % % Lymphocytes % % Monocytes % % Eosinophils % % Basophils % % Neutrophils # (1.3-7.7) k/uL Lymphocytes # (1.0-4.8) k/uL Monocytes # (0-1.0) k/uL Eosinophils # (0-0.7) k/uL Basophils # (0-0.2) k/uL Sodium (137-145) mmol/L Potassium (3.5-5.1) mmol/L Chloride (98-107) mmol/L Carbon Dioxide (22-30) mmol/L Anion Gap mmol/L BUN (7-17) mg/dL Creatinine (0.52-1.04) mg/dL Est GFR (CKD-EPI)AfAm (>60 ml/min/1.73 sqM) Est GFR (CKD-EPI)NonAf (>60 ml/min/1.73 sqM) Glucose (74-99) mg/dL Plasma Lactic Acid [place] 0.9 (0.7-2.0) mmol/L Calcium (8.4-10.2) mg/dL Total Bilirubin (0.2-1.3) mg/dL AST (14-36) U/L ALT (4-34) U/L Alkaline Phosphatase (38-126) U/L Total Protein (6.3-8.2) g/dL Albumin (3.5-5.0) g/dL Lipase (23-300) U/L Urine Color Urine Appearance (Clear) Urine pH (5.0-8.0) Ur Specific [place] (1.001-1.035) Urine Protein (Negative) Urine Glucose (UA) (Negative) Urine Ketones (Negative) Urine Blood (Negative) Urine Nitrite (Negative) Urine Bilirubin (Negative) Urine Urobilinogen (<2.0) mg/dL Ur Leukocyte Esterase (Negative) Urine WBC (0-5) /hpf Ur Squamous Epith Cells (0-4) /hpf Urine Bacteria (None) /hpf Hyaline Casts (0-2) /lpf Disposition Clinical Impression: Abdominal pain Disposition: HOME SELF-CARE Condition: Stable Instructions (If sedation given, give patient instructions): Abdominal Pain (ED) Additional Instructions: Please follow up with Dr. Alvarenga for further management of your symptoms. Al ternate Motrin and Tylenol every 4 hours. Is patient prescribed a controlled substance at d/c from ED?: No Referrals: Ihsan Ding DO [Primary Care Provider] - 1-2 days Jeremiah Alvarenga MD [STAFF PHYSICIAN] - 1-2 days Time of Disposition: 11:03
[2024-05-01 11:20] VITALS: BP 102/70; PULSE 61
== END 2024-05-01 11:19 | disposition home or self-care (01) ==
LOC: EC 07:53
CPT/HCPCS: 36415; 74177; 80053; 81001; 83605; 83690; 85025; 96361; 96374; 96376; 99285

== ENCOUNTER → 2024-05-09 | Outpatient (CLI) | payer MEDICARE, OTHER ==
[2024-05-09 11:10] LABS: Anion Gap 11.5 mmol/L (4.00-12.00); Carbon Dioxide 26.5 mmol/L (21.6-31.8); Potassium 4.9 mmol/L (3.5-5.5)
[2024-05-09 11:16] LABS: Basophils # (A) 0.05 X 10*3/uL (0.00-0.10); Basophils % (A) 0.5 %; Eosinophils # (A) 0.27 X 10*3/uL (0.04-0.35); Eosinophils % (A) 2.7 %; HCT 37.1 % (37.2-46.3); HGB 12.3 g/dL (12.0-15.0); Lymphocytes # (A) 2.27 X 10*3/uL (0.90-5.00); Lymphocytes % (A) 22.4 %; MCH 30.1 pg (27.0-32.0); MCHC 33.2 g/dL (32.0-37.0); MCV 90.9 FL (80.0-97.0); Mean Platelet Volume 11.2 FL (9.5-12.2); Monocytes # (A) 0.65 X 10*3/uL (0.20-1.00); Monocytes % (A) 6.4 %; NRBC Per 100 WBC 0 X 10*3/uL (0.00-0.01); Neutrophils # (A) 6.85 X 10*3/uL (1.80-7.70); Neutrophils % (A) 67.7 %; Platelet Count 267 X 10*3/uL (140-440); RBC 4.08 X 10*6/uL (4.10-5.20); RDW 14.6 % (11.5-14.5); WBC 10.12 X 10*3/uL (4.50-10.00)
== END | disposition home or self-care (01) ==
LOC: LABPAT 07:04
PROVIDERS: ATTEND Surgery
DX: Z01.818 Encounter for other preprocedural examination
CPT/HCPCS: 80051; 85025; 86850; 86900; 86901; 93005

== ENCOUNTER 2024-05-13 10:12 | Inpatient (IN) | payer MEDICARE, OTHER ==
[2024-05-13] MEDS: SODIUM CHLORIDE 0.9% 1,000 ML IV STA (10:40)
[2024-05-13] MEDS: ONDANSETRON 4 MG/2 ML VIAL IVP STA (10:49)
[2024-05-13] MEDS: HYDROmorphone 0.5 MG/0.5 ML SYRINGE IVP STA ×2 (10:50→11:42)
[2024-05-13 10:58] LABS: Basophils # (A) 0.1 k/uL (0-0.2); Basophils % (A) 1 %; Eosinophils # (A) 0.3 k/uL (0-0.7); Eosinophils % (A) 3 %; HCT 36.1 % (34.0-46.0); HGB 12.1 gm/dL (11.4-16.0); Lymphocytes # (A) 2.3 k/uL (1.0-4.8); Lymphocytes % (A) 22 %; MCH 30.4 pg (25.0-35.0); MCHC 33.5 g/dL (31.0-37.0); MCV 90.7 fL (80.0-100.0); Mean Platelet Volume 8.6; Monocytes # (A) 0.4 k/uL (0-1.0); Monocytes % (A) 4 %; Neutrophils # (A) 7.2 k/uL (1.3-7.7); Neutrophils % (A) 70 %; Platelet Count 224 k/uL (150-450); RBC 3.98 m/uL (3.80-5.40); RDW 13.9 % (11.5-15.5); WBC 10.3 k/uL (3.8-10.6)
[2024-05-13 11:14] LABS: ALT 29 U/L (4-34); AST 39 U/L (14-36); African American GFR (CKD) >90 (>60 ml/min/1.73 sqM); Albumin 4.2 g/dL (3.5-5.0); Alkaline Phosphatase 64 U/L (38-126); Anion Gap 8 mmol/L; Blood Urea Nitrogen 10 mg/dL (7-17); Calcium 8.8 mg/dL (8.4-10.2); Carbon Dioxide 23 mmol/L (22-30); Chloride 104 mmol/L (98-107); Glucose 145 mg/dL (74-99); Lipase 80 U/L (23-300); Non-African American GFR(CKD) >90 (>60 ml/min/1.73 sqM); Potassium 4.2 mmol/L (3.5-5.1); Sodium 135 mmol/L (137-145); Total Bilirubin 0.7 mg/dL (0.2-1.3); Total Protein 6.8 g/dL (6.3-8.2)
--- NOTE | 2024-05-13 11:20 | ED ---
Abdominal Pain HPI - General Chief Complaint: Abdominal Pain Stated Complaint: Abdominal Pain Time Seen by Provider: 05/13/24 10:24 Source: patient, RN notes reviewed Mode of arrival: ambulatory Limitations: no limitations - History of Present Illness Initial Comments: 58-year-old female presents emerged from complaint abdominal pain. She states she had pain overnight it is more in left lower quadrant. Patient has a history of diverticulitis she is scheduled for surgery on Wednesday. She denies any fevers chills nausea vomiting diarrhea constipation no melanotic stools no hematochezia. Patient has no urinary symptoms. Patient offers no other comp laints. - Related Data Home Medications Medication Instructions Recorded Confirmed Ezetimibe [Zetia] 10 mg PO HS 09/05/14 05/08/24 Levothyroxine Sodium [Synthroid] 25 mcg PO DAILY 03/13/16 05/08/24 Omeprazole 40 mg PO HS 11/13/16 05/08/24 clonazePAM [KlonoPIN] 0.25 mg PO HS 05/03/17 05/08/24 Methylphenidate HCl 20 mg PO TID@0500,1200,1700 09/09/18 05/08/24 busPIRone HCL 15 mg PO BID 02/05/19 05/08/24 Atorvastatin Calcium [Lipitor] 10 mg PO HS 10/06/19 05/08/24 estradioL [Estrace] 0.5 mg PO DAILY 10/06/19 05/08/24 Citalopram Hydrobromide [CeleXA] 40 mg PO DAILY 02/09/22 05/08/24 Fluticasone Nasal [place] [Flonase 1 spr EA NOSTRIL BID 02/04/23 05/08/24 Nasal [place]] Naloxone HCl [Narcan] 4 mg NASAL DIRECTED PRN 02/04/23 05/08/24 Brexpiprazole [Rexulti] 0.25 mg PO HS 09/18/23 05/08/24 Cholecalciferol [Vitamin D3 (25 50 mcg PO DAILY 09/18/23 05/08/24 Mcg = 1000 Iu)] Multivitamins, Thera [Multivitamin 1 tab PO DAILY 09/18/23 05/08/24 (formulary)] Albuterol Sulfate [Albuterol 2 puff INHALATION RT-Q6H PRN 02/03/24 05/08/24 Sulfate Hfa] Cetirizine HCl [Zyrtec] 10 mg PO HS 02/03/24 05/08/24 Varenicline [Chantix Continuing 1 mg PO BID 05/08/24 05/08/24 Pack] Previous Rx's Medication Instructions Recorded Diclofenac Sodium Gel [Voltaren 1% 2 - 4 gm TOPICAL DAILY PRN 30 Days 12/13/23 Gel] #1 each HYDROcodone/APAP 10-325MG [[place] 1 tab PO TID PRN 30 Days #90 tab 02/14/24 10-325] Ibuprofen [Motrin] 600 mg PO Q6HR PRN #30 tab 05/01/24 tiZANidine HCL 2 mg PO HS 30 Days #30 tab 05/04/24 Allergies Allergy/AdvReac Type Severity Reaction Status Date / Time Penicillins Allergy Childhood Verified 05/13/24 10:21 Rash Review of Systems ROS Statement: Those systems with pertinent positive or pertinent negative responses have been documented in the HPI. ROS Other: All systems not noted in ROS Statement are negative. Past Medical History Past Medical History: Asthma, COPD, GERD/Reflux, Hyperlipidemia, Osteoarthritis (OA), Syncope, Thyroid Disorder Additional Past Medical History / Comment(s): kidney stones, hypoglycemia, chronic neck and L shoulder, lower back pain. Hx L facial and L ankle fxs, sinus problems, vertigo, falls in past due to syncope, low BP at times. 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 rectocele repair, d&c Past Anesthesia/Blood Transfusion Reactions: Previous Problems w/ Anesthesia Additional Past Anesthesia/Blood Transfusion Reaction / Comment(s): "Takes longer to wake up from anesthesia." - just once Past Psychological History: ADD/ADHD, Anxiety, Depression Smoking Status: Current some day smoker - Past Family History Mother History Unknown: Yes Family Medical History: Cancer Additional Family Medical History / Comment(s): lung Father Family Medical History: Asthma, COPD, Osteoarthritis (OA) Additional Family Medical History / Comment(s): Father at age 80 yrs. Sister(s) Family Medical History: Diabetes Mellitus, Thyroid Disorder General Exam Limitations: no limitations General appearance: alert, in no apparent distress Head exam: Present: atraumatic, normocephalic, normal inspection Neck exam: Present: normal inspection. Absent: tenderness, meningismus, lymphadenopathy Respiratory exam: Present: normal lung sounds bilaterally. Absent: respiratory distress, wheezes, rales, rhonchi, stridor Cardiovascular Exam: Present: regular rate, normal rhythm, normal heart sounds. Absent: systolic murmur, diastolic murmur, rubs, gallop, clicks GI/Abdominal exam: Present: soft, tenderness, normal bowel sounds. Absent: distended, guarding, rebound, rigid Back exam: Absent: CVA tenderness (R), CVA tenderness (L) Neurological exam: Present: alert Course Vital Signs 05/13/24 05/13/24 05/13/24 10:21 11:37 12:29 Temperature 98.5 F Pulse Rate 70 58 L 58 L Respiratory 18 16 16 Rate Blood Pressure 86/65 103/58 106/51 O2 Sat by Pulse 97 97 96 Oximetry Medical Decision Making - Medical Decision Making Was pt. sent in by a medical professional or institution (, PA, VASCULAR TECHNOLOGIST, urgent care, hospital, or [facility]...) When possible be specific @ -[No] Did you speak to anyone other than the patient for history (EMS, parent, family, police, friend...)? What history was obtained from this source @ -[No] Did you review nursing and triage notes (agree or disagree)? Why? @ -[I reviewed and agree with nursing and triage notes] Were old charts reviewed (outside hosp., previous admission, EMS record, old EKG, old radiological studies, urgent care reports/EKG's, [facility] records)? Report findings @ -[No old charts were reviewed] Differential Diagnosis (chest pain, altered mental status, abdominal pain women, abdominal pain men, vaginal bleeding, weakness, fever, dyspnea, syncope, headache, dizziness, GI bleed, back pain, seizure, CVA, palpatations, mental health, musculoskeletal)? @ -Differential Abdominal Pain Women: Appendicitis, Cholecystitis, diverticulosis, ischemic bowel, pancreatitis, hepatitis, UTI, gastroenteritis, AAA, incarcerated hernia, bowel obstruction, constipation, inflammatory bowel, hepatitis, peptic ulcer disease, splenic infarction, perforated viscus, vulvitis, ovarian torsion, PID, kidney stone, placenta abruption, this is not meant to be an all-inclusive list EKG interpreted by me (3pts min.). @ -None X-rays interpreted by me (1pt min.). @ -[None done] CT interpreted by me (1pt min.). @ -[None done] U/S interpreted by me (1pt. min.). @ -[None done] What testing was considered but not performed or refused? (CT, X-rays, U/S, labs)? Why? @ -Consider CT abdomen pelvis though patient had 2 CTs in the last month What meds were considered but not given or refused? Why? @ -[None] Did you discuss the management of the patient with other professionals (professionals i.e. , PA, VASCULAR TECHNOLOGIST, lab, RT, psych nurse, social media manager, semiconductor development technician, teacher, equal employment opportunity officer, ed case manager)? Give summary @ -Dr. Alvarenga regarding patient's condition and admission Was smoking cessation discussed for >3mins.? @ -[No] Was critical care preformed (if so, how long)? @ -[No] Were there social determinants of health that impacted care today? How? (Homelessness, low income, unemployed, alcoholism, drug addiction, transporta tion, low edu. Level, literacy, decrease access to med. care, snf, rehab)? @ -[No] Was there de-escalation of care discussed even if they declined (Discuss DNR or withdrawal of care, Hospice)? DNR status @ -[No] What co-morbidities impacted this encounter? (DM, HTN, Smoking, COPD, CAD, Cancer, CVA, ARF, Chemo, Hep., AIDS, mental health diagnosis, sleep apnea, morbid obesity)? @ -Diverticulitis Was patient admitted / discharged? Hospital course, mention meds given and route, prescriptions, significant lab abnormalities, going to OR and other pertinent info. @ -Admitted patient's having persistence left lower quadrant abdominal pain consistent with diverticulitis blood pressure has been marginal with an elevated lactic acidosis. Patient admitted with antibiotics clear liquid diet and furth er evaluation treatment Undiagnosed new problem with uncertain prognosis? @ -[No] Drug Therapy requiring intensive monitoring for toxicity (Heparin, Nitro, Insulin, Cardizem)? @ -[No] Were any procedures done? @ -[No] Diagnosis/symptom? @ -Acute diverticulitis Acute, or Chronic, or Acute on Chronic? @ -Acute Uncomplicated (without systemic symptoms) or Complicated (systemic symptoms)? @ -Complicated Side effects of treatment? @ -[No] Exacerbation, Progression, or Severe Exacerbation? @ -[No] Poses a threat to life or bodily function? How? (Chest pain, [place], [place], pneumonia, PE, COPD, DKA, ARF, appy, cholecystitis, CVA, Diverticulitis, Homicidal, Suicidal, threat to staff... and all critical care pts) @ -Yes diverticulitis with possible sepsis and endorgan failure - Lab Data Result diagrams: 05/13/24 10:44 05/13/24 10:44 Lab Results 05/13/24 05/13/24 05/13/24 Range/Units 10:44 10:44 10:44 WBC 10.3 (3.8-10.6) k/uL RBC 3.98 (3.80-5.40) m/uL Hgb 12.1 (11.4-16.0) gm/dL Hct 36.1 (34.0-46.0) % MCV 90.7 (80.0-100.0) fL MCH 30.4 (25.0-35.0) pg MCHC 33.5 (31.0-37.0) g/dL RDW 13.9 (11.5-15.5) % Plt Count 224 (150-450) k/uL MPV 8.6 Neutrophils % 70 % Lymphocytes % 22 % Monocytes % 4 % Eosinophils % 3 % Basophils % 1 % Neutrophils # 7.2 (1.3-7.7) k/uL Lymphocytes # 2.3 (1.0-4.8) k/uL Monocytes # 0.4 (0-1.0) k/uL Eosinophils # 0.3 (0-0.7) k/uL Basophils # 0.1 (0-0.2) k/uL Sodium 135 L (137-145) mmol/L Potassium 4.2 (3.5-5.1) mmol/L Chloride 104 (98-107) mmol/L Carbon Dioxide 23 (22-30) mmol/L Anion Gap 8 mmol/L BUN 10 (7-17) mg/dL Creatinine 0.68 (0.52-1.04) mg/dL Est GFR (CKD-EPI)AfAm >90 (>60 ml/min/1.73 sqM) Est GFR (CKD-EPI)NonAf >90 (>60 ml/min/1.73 sqM) Glucose 145 H (74-99) mg/dL Plasma Lactic Acid [place] (0.7-2.0) mmol/L Calcium 8.8 (8.4-10.2) mg/dL Total Bilirubin 0.7 (0.2-1.3) mg/dL AST 39 H (14-36) U/L ALT 29 (4-34) U/L Alkaline Phosphatase 64 (38-126) U/L Total Protein 6.8 (6.3-8.2) g/dL Albumin 4.2 (3.5-5.0) g/dL Lipase 80 (23-300) U/L Urine Color Colorless Urine Appearance Clear (Clear) Urine pH 6.5 (5.0-8.0) Ur Specific [place] 1.002 (1.001-1.035) Urine Protein Negative (Negative) Urine Glucose (UA) Negative (Negative) Urine Ketones Negative (Negative) Urine Blood Negative (Negative) Urine Nitrite Negative (Negative) Urine Bilirubin Negative (Negative) Urine Urobilinogen <2.0 (<2.0) mg/dL Ur Leukocyte Esterase Negative (Negative) 05/13/24 Range/Units 10:44 WBC (3.8-10.6) k/uL RBC (3.80-5.40) m/uL Hgb (11.4-16.0) gm/dL Hct (34.0-46.0) % MCV (80.0-100.0) fL MCH (25.0-35.0) pg MCHC (31.0-37.0) g/dL RDW (11.5-15.5) % Plt Count (150-450) k/uL MPV Neutrophils % % Lymphocytes % % Monocytes % % Eosinophils % % Basophils % % Neutrophils # (1.3-7.7) k/uL Lymphocytes # (1.0-4.8) k/uL Monocytes # (0-1.0) k/uL Eosinophils # (0-0.7) k/uL Basophils # (0-0.2) k/uL Sodium (137-145) mmol/L Potassium (3.5-5.1) mmol/L Chloride (98-107) mmol/L Carbon Dioxide (22-30) mmol/L Anion Gap mmol/L BUN (7-17) mg/dL Creatinine (0.52-1.04) mg/dL Est GFR (CKD-EPI)AfAm (>60 ml/min/1.73 sqM) Est GFR (CKD-EPI)NonAf (>60 ml/min/1.73 sqM) Glucose (74-99) mg/dL Plasma Lactic Acid [place] 3.1 H* (0.7-2.0) mmol/L Calcium (8.4-10.2) mg/dL Total Bilirubin (0.2-1.3) mg/dL AST (14-36) U/L ALT (4-34) U/L Alkaline Phosphatase (38-126) U/L Total Protein (6.3-8.2) g/dL Albumin (3.5-5.0) g/dL Lipase (23-300) U/L Urine Color Urine Appearance (Clear) Urine pH (5.0-8.0) Ur Specific [place] (1.001-1.035) Urine Protein (Negative) Urine Glucose (UA) (Negative) Urine Ketones (Negative) Urine Blood (Negative) Urine Nitrite (Negative) Urine Bilirubin (Negative) Urine Urobilinogen (<2.0) mg/dL Ur Leukocyte Esterase (Negative) Disposition Clinical Impression: Lactic acidosis, Acute diverticulitis Disposition: ADMITTED IP TO THIS [facility] Condition: Fair Referrals: Ihsan Ding DO [Primary Care Provider] - 1-2 days Time of Disposition: 12:41
[2024-05-13] MEDS: SODIUM CHLORIDE 0.9% 1,000 ML IV ONE (11:43)
[2024-05-13 12:37] LABS: Appearance,Urine Clear (Clear); Bilirubin,Urine Negative (Negative); Blood,Urine Negative (Negative); Color,Urine Colorless; Glucose,Urine (UA) Negative (Negative); Ketones,Urine Negative (Negative); Leukocyte Esterase,Urine Negative (Negative); Nitrite,Urine Negative (Negative); PH, Urine 6.5 (5.0-8.0); Protein,Urine Negative (Negative); Specific Gravity,Urine 1.002 (1.001-1.035); Urobilinogen,Urine <2.0 mg/dL (<2.0)
[2024-05-13] MEDS ORDERED: NALOXONE 0.4 MG/ML 1 ML VIAL IV PRN (12:42)
[2024-05-13] MEDS: SODIUM CHLORIDE 0.9% 1,000 ML IV SCH (14:10)
[2024-05-13] MEDS: LEVOFLOXACIN 750MG-D5W PMX 750 MG in DEXTROSE/WATER 1 150ML.BAG IVPB STA (14:11)
[2024-05-13] MEDS ORDERED: ALBUTEROL HFA INHALER INHALATION PRN (14:29)
--- NOTE | 2024-05-13 14:32 | P.CONS ---
History of Present Illness - Reason for Consult Consult date: 05/13/24 - History of Present Illness History of present illness: 58-year-old female with past medical history significant for recurrent diverticulitis, was following general surgery and was scheduled to have surgery on Wednesday presented with worsening abdominal pain more pronounced in the left lower quadrant. Patient stated that she had an episode of diverticulitis back in January, has been having on and off abdominal pain since then. Patient denied any fever, chills, nausea vomiting diarrhea constipation, hematochezia or melena . Patient denied any dysuria urgency frequency weakness or numbness to extremities, chest pain, palpitation, productive cough, sore throat. In the ED patient is afebrile, heart rate 70, respiratory rate 18, blood pressure was initially 86/65 later improved to 106/51, saturating 96% on room air. WBCs 10.3, hemoglobin 12.1, platelet 224. Lactate initially was 3.1, improved to 0.8. Sodium 135 potassium 4.2 creatinine 0.68 BUN 10. Mildly elevated AST with normal ALT bilirubin and alkaline phosphatase. UA was unremarkable. REVIEW OF SYSTEMS: CONSTITUTIONAL: No fever, no malaise, no fatigue. HEENT: No recent visual problems or hearing problems. Denied any sore throat. CARDIOVASCULAR: No chest pain, orthopnea, PND, no palpitations, no syncope. PULMONARY: No shortness of breath, no cough, no hemoptysis. GASTROINTESTINAL: No diarrhea, no nausea, no vomiting, no abdominal pain. NEUROLOGICAL: No headaches, no weakness, no numbness. HEMATOLOGICAL: Denies any bleeding or petechiae. GENITOURINARY: Denies any burning micturition, frequency, or urgency. MUSCULOSKELETAL/RHEUMATOLOGICAL: Denies any joint pain, swelling, or any muscle pain. ENDOCRINE: Denies any polyuria or polydipsia. The rest of the 14-point review of systems is negative. PHYSICAL EXAMINATION: GENERAL: The patient is A&O x3, NAD HEENT: EOMI, Sclerae anicteric, Moist Mucous membranes Neck: Supple, Non tender, No JVD PULMONARY: Equal breath souds B/L, No wheezing, No crackles. CARDIOVASCULAR: S1, S2 present. No murmurs, rubs, or gallops. ABDOMEN: Soft, nontender, nondistended, normoactive bowel sounds. No guarding or rebound tenderness. MUSCULOSKELETAL: No edema, No cyanosis. No clubbing. Normal ROM. Intact peripheral pulses. EXTREMITIES: No cyanosis, clubbing, or pedal edema. NEUROLOGICAL: CN 2-12 grossly intact. No FND Assessment and plan: Recurrent diverticulitis: Patient has history of recurrent diverticulitis, also was scheduled to have surgery on Wednesday. Presented with worsening abdominal pain. Elevated lactate on presentation, normalized after IV fluids. Denied any fever or chills. Afebrile, no leukocytosis. Further management per general surgery. Antibiotics: Levofloxacin, reported penicillin allergy, reported that she has tolerated Augmentin and Keflex in the past. Hyperlipidemia: Continue statin Depression/anxiety: Continue home meds. DVT prophylaxis SCD Monitor vital signs and labs Continue telemetry monitoring Labs and medication were reviewed. Continue same treatment. Resume home medication. Further recommendations as per clinical course of the patient Dictation was produced using [email or web address] dictation software. please excuse any grammatical, word or spelling errors. Past Medical History Past Medical History: Asthma, COPD, GERD/Reflux, Hyperlipidemia, Osteoarthritis (OA), Syncope, Thyroid Disorder Additional Past Medical History / Comment(s): kidney stones, hypoglycemia, chronic neck and L shoulder, lower back pain. Hx L facial and L ankle fxs, sinus problems, vertigo, falls in past due to syncope, low BP at times. 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 rectocele repair, d&c Past Anesthesia/Blood Transfusion Reactions: Previous Problems w/ Anesthesia Additional Past Anesthesia/Blood Transfusion Reaction / Comm: "Takes longer to wake up from anesthesia." - just once Past Psychological History: ADD/ADHD, Anxiety, Depression Smoking Status: Current some day smoker - Past Family History Mother History Unknown: Yes Family Medical History: Cancer Additional Family Medical History / Comment(s): lung Father Family Medical History: Asthma, COPD, Osteoarthritis (OA) Additional Family Medical History / Comment(s): Father at age 80 yrs. Sister(s) Family Medical History: Diabetes Mellitus, Thyroid Disorder Medications and Allergies Home Medications Medication Instructions Recorded Confirmed Type Ezetimibe [Zetia] 10 mg PO HS 09/05/14 05/13/24 History Levothyroxine Sodium [Synthroid] 25 mcg PO DAILY 03/13/16 05/13/24 History Omeprazole 40 mg PO HS 11/13/16 05/13/24 History clonazePAM [KlonoPIN] 0.5 mg PO HS 05/03/17 05/13/24 History Methylphenidate HCl 20 mg PO TID@0500,1200,1700 09/09/18 05/13/24 History Atorvastatin Calcium [Lipitor] 10 mg PO HS 10/06/19 05/13/24 History estradioL [Estrace] 0.5 mg PO DAILY 10/06/19 05/13/24 History Citalopram Hydrobromide [CeleXA] 40 mg PO DAILY 02/09/22 05/13/24 History Fluticasone Nasal [place] [Flonase 1 spr EA NOSTRIL BID 02/04/23 05/13/24 History Nasal [place]] Brexpiprazole [Rexulti] 0.25 mg PO HS 09/18/23 05/13/24 History Cetirizine HCl [Zyrtec] 10 mg PO HS 02/03/24 05/13/24 History tiZANidine HCL 2 mg PO HS 30 Days #30 tab 05/04/24 05/13/24 Rx Varenicline [Chantix Continuing 1 mg PO BID 05/08/24 05/13/24 History Pack] Albuterol Inhaler [Ventolin Hfa 2 puff INHALATION RT-QID PRN 05/13/24 05/13/24 History Inhaler] Diclofenac Sodium Gel [Voltaren 1% 2 - 4 gm TOPICAL TID PRN 05/13/24 05/13/24 History Gel] HYDROcodone/APAP 10-325MG [[place] 1 tab PO TID 05/13/24 05/13/24 History 10-325] Ibuprofen [Motrin] 600 mg PO TID PRN 05/13/24 05/13/24 History busPIRone HCl [Buspar] 10 mg PO BID 05/13/24 05/13/24 History Allergies Allergy/AdvReac Type Severity Reaction Status Date / Time Penicillins Allergy Childhood Verified 05/13/24 10:21 Rash Physical Exam Vitals: Vital Signs Temp Pulse Resp BP Pulse Ox 05/13/24 12:29 58 L 16 106/51 96 05/13/24 11:37 58 L 16 103/58 97 05/13/24 10:21 98.5 F 70 18 86/65 97 Intake and Output 05/12/24 05/13/24 05/13/24 22:59 06:59 14:59 Other: Weight 77.111 kg Results CBC & Chem 7: 05/13/24 10:44 05/13/24 10:44 Labs: Abnormal Lab Results - Last 24 Hours (Table) 05/13/24 05/13/24 Range/Units 10:44 10:44 Sodium 135 L (137-145) mmol/L Glucose 145 H (74-99) mg/dL Plasma Lactic Acid [place] 3.1 H* (0.7-2.0) mmol/L AST 39 H (14-36) U/L
[2024-05-13] MEDS: HYDROmorphone 1 MG/ML 1 ML SYRINGE IVP PRN (14:50)
--- NOTE | 2024-05-13 16:07 | P.GSHP ---
History of Present Illness H&P Date: 05/13/24 CHIEF COMPLAINT: Diverticulitis HISTORY OF PRESENT ILLNESS: The patient is a 58-year-old female who reports chronic left lower quadrant abdominal pain ongoing since January, 3 months ago due to diverticulitis. Patient reports that she developed more severe left lower quadrant abdominal pain yesterday while she was at work. She continues to smoke. Patient had elective colectomy scheduled for May 15. Due to severity of the pain, patient presented today. No blood in stools. Pain is still persistent since admission. PAST MEDICAL HISTORY: See list and reviewed PAST SURGICAL HISTORY: See list and reviewed MEDICATIONS: See list and reviewed ALLERGIES: See list and reviewed SOCIAL HISTORY: See list and reviewed FAMILY HISTORY: See list and reviewed REVIEW OF ORGAN SYSTEMS: CONSTITUTIONAL: No fevers or chills. Obesity, BMI 31.1 EYES: Denies any trouble with vision. No glasses. HEENT: No difficulties with hearing. No nosebleeds. No difficulty swallowing. RESPIRATORY: Active tobacco abuse. Has chronic obstructive pulmonary disease. Has asthma. CARDIOVASCULAR: Prior heart catheterization. GASTROINTESTINAL: History of diverticulitis. Has gastroesophageal reflux disease status post Jose fundoplasty. GENITOURINARY: Denies any blood in urine or increased urinary frequency. NEUROLOGICAL: Denies any numbness or tingling along the distal extremities. No seizure disorders or headaches. MUSCULOSKELETAL: Has back pain, stiffness or joint arthritis. SKIN: No current skin cancer. No rash. PSYCHIATRIC: Has generalized anxiety disorder including depressive disease. ENDOCRINE: Has thyroid disorder. Denies any blood sugar glucose intolerance. HEME/LYMPHATIC: Denies any lumps and bumps around the neck. No recent deep venous thrombosis. ALLERGY/IMMUNOLOGY: No immunoglobulin therapy. No immune deficiencies. BREAST: Denies current breast lumps, pain or nipple discharge. PHYSICAL EXAM: VITALS: Reviewed CONSTITUTIONAL: Well developed and in no acute distress. EYES: Conjuctivae without sclera icterus. Extraocular movements grossly intact. HEAD, EARS, NOSE, THROAT: Moist buccal mucosa. Head is atraumatic, normocephalic. Hears conversational speech. No nasal drainage. NECK: Supple. No JV distention. No thyroidomegaly. RESPIRATORY: Non-labored respirations and equal bilateral excursions. No gross wheezes. CARDIOVASCULAR: Palpable 2+ radial pulses. ABDOMEN: Well-healed stab incisions from prior laparoscopic surgery. No peritonitis. Minimal left lower quadrant tenderness. LYMPH: No neck lymphadenopathy. MUSCULOSKELETAL: No clubbing cyanosis or edema SKIN: Warm and well perfused with good skin turgor. NEUROLOGIC: Cranial nerves II through XII grossly intact. No focal or lateralizing signs. PSYCH: Appropriate affect. Alert and oriented to person, place and time. Displays appropriate insight. CLINCAL LABS: Reviewed. WBC normal EKG: Reviewed and abnormal demonstrating sinus bradycardia. Nonspecific ST abnormality. IMAGING: Independently reviewed. CT of the abdomen pelvis 05/01/2024 demonstrates no gross inflammatory changes. No acute diverticulitis identified. This is my independent interpretation. Moderate diverticulosis identified with redundant sigmoid colon. RADIOLOGY: Report reviewed with findings of diverticulosis. RECORDS: previous old records reviewed pathology report from colonoscopy March 2024 demonstrates hyperplastic polyp. ASSESSMENT: 1. Left lower quadrant abdominal pain due to diverticulitis/diverticulosis 2. Tobacco abuse disorder 3. Obesity due to excess calories, BMI 31.1 4. Depressive disorder 5. Generalized anxiety disorder 6. Chronic obstructive pulmonary disease 7. Abnormal EKG PLAN: 1. EKGs from 2 months prior demonstrated first-degree AV block which now shows sinus bradycardia and abnormal ST elevation. Do recommend cardiac risk assessment prior to surgery. 2. Clear liquid diet in the interim. 3. Patient presently elevated risk due to pre-existing conditions including chronic tobacco abuse disorder, hyperlipidemia, obesity ADVANCE DIRECTIVE: CODE STATUS in chart Thank you for this kind consultation. Past Medical History Past Medical History: Asthma, COPD, GERD/Reflux, Hyperlipidemia, Osteoarthritis (OA), Syncope, Thyroid Disorder Additional Past Medical History / Comment(s): kidney stones, hypoglycemia, chronic neck and L shoulder, lower back pain. Hx L facial and L ankle fxs, sinus problems, vertigo, falls in past due to syncope, low BP at times. 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 rectocele repair, d&c Past Anesthesia/Blood Transfusion Reactions: Previous Problems w/ Anesthesia Additional Past Anesthesia/Blood Transfusion Reaction / Comment(s): "Takes longer to wake up from anesthesia." - just once Past Psychological History: ADD/ADHD, Anxiety, Depression Smoking Status: Current some day smoker - Past Family History Mother History Unknown: Yes Family Medical History: Cancer Additional Family Medical History / Comment(s): lung Father Family Medical History: Asthma, COPD, Osteoarthritis (OA) Additional Family Medical History / Comment(s): Father at age 80 yrs. Sister(s) Family Medical History: Diabetes Mellitus, Thyroid Disorder Medications and Allergies Home Medications Medication Instructions Recorded Confirmed Type Ezetimibe [Zetia] 10 mg PO HS 09/05/14 05/13/24 History Levothyroxine Sodium [Synthroid] 25 mcg PO DAILY 03/13/16 05/13/24 History Omeprazole 40 mg PO HS 11/13/16 05/13/24 History clonazePAM [KlonoPIN] 0.5 mg PO HS 05/03/17 05/13/24 History Methylphenidate HCl 20 mg PO TID@0500,1200,1700 09/09/18 05/13/24 History Atorvastatin Calcium [Lipitor] 10 mg PO HS 10/06/19 05/13/24 History estradioL [Estrace] 0.5 mg PO DAILY 10/06/19 05/13/24 History Citalopram Hydrobromide [CeleXA] 40 mg PO DAILY 02/09/22 05/13/24 History Fluticasone Nasal [place] [Flonase 1 spr EA NOSTRIL BID 02/04/23 05/13/24 History Nasal [place]] Brexpiprazole [Rexulti] 0.25 mg PO HS 09/18/23 05/13/24 History Cetirizine HCl [Zyrtec] 10 mg PO HS 02/03/24 05/13/24 History tiZANidine HCL 2 mg PO HS 30 Days #30 tab 05/04/24 05/13/24 Rx Varenicline [Chantix Continuing 1 mg PO BID 05/08/24 05/13/24 History Pack] Albuterol Inhaler [Ventolin Hfa 2 puff INHALATION RT-QID PRN 05/13/24 05/13/24 History Inhaler] Diclofenac Sodium Gel [Voltaren 1% 2 - 4 gm TOPICAL TID PRN 05/13/24 05/13/24 History Gel] HYDROcodone/APAP 10-325MG [[place] 1 tab PO TID 05/13/24 05/13/24 History 10-325] Ibuprofen [Motrin] 600 mg PO TID PRN 05/13/24 05/13/24 History busPIRone HCl [Buspar] 10 mg PO BID 05/13/24 05/13/24 History Allergies Allergy/AdvReac Type Severity Reaction Status Date / Time Penicillins Allergy Childhood Verified 05/13/24 10:21 Rash Surgical - Exam Vital Signs Temp Pulse Resp BP Pulse Ox 98.5 F 70 18 86/65 97 05/13/24 10:21 05/13/24 10:21 05/13/24 10:21 05/13/24 10:21 05/13/24 10:21 Results - Labs 05/13/24 10:44 05/13/24 10:44 Abnormal Lab Results - Last 24 Hours (Table) 05/13/24 05/13/24 Range/Units 10:44 10:44 Sodium 135 L (137-145) mmol/L Glucose 145 H (74-99) mg/dL Plasma Lactic Acid [place] 3.1 H* (0.7-2.0) mmol/L AST 39 H (14-36) U/L Diabetes panel 05/13/24 Range/Units 10:44 Sodium 135 L (137-145) mmol/L Potassium 4.2 (3.5-5.1) mmol/L Chloride 104 (98-107) mmol/L Carbon Dioxide 23 (22-30) mmol/L BUN 10 (7-17) mg/dL Creatinine 0.68 (0.52-1.04) mg/dL Glucose 145 H (74-99) mg/dL Calcium 8.8 (8.4-10.2) mg/dL AST 39 H (14-36) U/L ALT 29 (4-34) U/L Alkaline Phosphatase 64 (38-126) U/L Total Protein 6.8 (6.3-8.2) g/dL Albumin 4.2 (3.5-5.0) g/dL Calcium panel 05/13/24 Range/Units 10:44 Calcium 8.8 (8.4-10.2) mg/dL Albumin 4.2 (3.5-5.0) g/dL Pituitary panel 05/13/24 Range/Units 10:44 Sodium 135 L (137-145) mmol/L Potassium 4.2 (3.5-5.1) mmol/L Chloride 104 (98-107) mmol/L Carbon Dioxide 23 (22-30) mmol/L BUN 10 (7-17) mg/dL Creatinine 0.68 (0.52-1.04) mg/dL Glucose 145 H (74-99) mg/dL Calcium 8.8 (8.4-10.2) mg/dL Adrenal panel 05/13/24 Range/Units 10:44 Sodium 135 L (137-145) mmol/L Potassium 4.2 (3.5-5.1) mmol/L Chloride 104 (98-107) mmol/L Carbon Dioxide 23 (22-30) mmol/L BUN 10 (7-17) mg/dL Creatinine 0.68 (0.52-1.04) mg/dL Glucose 145 H (74-99) mg/dL Calcium 8.8 (8.4-10.2) mg/dL Total Bilirubin 0.7 (0.2-1.3) mg/dL AST 39 H (14-36) U/L ALT 29 (4-34) U/L Alkaline Phosphatase 64 (38-126) U/L Total Protein 6.8 (6.3-8.2) g/dL Albumin 4.2 (3.5-5.0) g/dL
--- NOTE | 2024-05-13 16:11 | P.HPADDEND ---
H&P Addendum H&P Addendum Date: 05/13/24 Prior EKGs reviewed demonstrating new abnormality. Patient scheduled to undergo elective colectomy May 15. 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
[2024-05-13] MEDS: METHYLPHENIDATE HCL 10 MG TAB PO SCH (16:28)
[2024-05-13] MEDS: metroNIDAZOLE-NS PMX 500 MG in SALINE 1 100ML.BAG IVPB SCH (17:46)
[2024-05-13] MEDS: PANTOPRAZOLE 40 MG TABLET PO SCH (19:57)
[2024-05-13] MEDS: ATORVASTATIN 10 MG TAB PO SCH (19:57)
[2024-05-13] MEDS: LORATADINE 10 MG TAB PO SCH (19:57)
[2024-05-13] MEDS: busPIRone HCl 10 MG TAB PO SCH (19:57)
[2024-05-13] MEDS: clonazePAM 0.5 MG TAB PO SCH (19:57)
[2024-05-13] MEDS: oxyCODONE-APAP 5-325MG 1 EACH TAB PO PRN (19:58)
[2024-05-13] MEDS: BREXPIPRAZOLE 0.25 MG PO SCH (21:26)
[2024-05-13] MEDS: FLUTICASONE NASAL 50MCG/SPRAY 16GM BTL EA NOSTRIL SCH (21:37)
[2024-05-13] MEDS: VARENICLINE 1 MG TAB PO SCH (21:37)
[2024-05-13] MEDS: tiZANidine 4 MG TAB PO SCH (21:45)
[2024-05-13] MEDS: ONDANSETRON 4 MG/2 ML VIAL IVP PRN (22:26)
[2024-05-14] MEDS: CITALOPRAM HYDROBROMIDE 20 MG TAB PO SCH (07:55)
[2024-05-14] MEDS: LEVOTHYROXINE 25 MCG TAB PO SCH (07:55)
[2024-05-14] MEDS: LEVOFLOXACIN 750MG-D5W PMX 750 MG in DEXTROSE/WATER 1 150ML.BAG IVPB SCH (12:02)
--- NOTE | 2024-05-14 13:21 | P.CRDCN ---
History of Present Illness Consult date: 05/14/24 Consult reason: pre-op evaluation History of present illness: The patient is a 58-year-old female with past medical history of diverticulitis, who presented to the emergency room with worsening abdominal discomfort. The patient was scheduled to undergo surgery with Dr. Johnson outpatient on May 15, however patient presented to the emergency room with worsening symptoms. Dr. Johnson would like preoperative clearance as there was an abnormality on an EKG. Unfortunately due to computer software issues, no EKGs can be viewed within our current system. Repeat EKG shows sinus rhythm without ST or T wave abnormalities DIAGNOSTICS: EKG shows sinus mechanism without ST or T wave abnormalities Chest x-ray shows no acute cardiopulmonary process Lab data: WBC 10.3, hemoglobin 12.1, hematocrit 36.1, platelet 224, sodium 135, potassium 4.2, BUN 10, creatinine 0.68, lactic 3.1, AST 39, ALT 29 REVIEW OF SYSTEMS: No fever or chills. No cough or expectoration. No diaphoresis. Patient denies headache, dizziness, blurred vision, double vision. No hematochezia. No hematemesis. Denies any black stools or blood in his stools. Denies dysuria or hematuria. No muscle weakness or numbness. Positive for abdominal discomfort PHYSICAL EXAMINATION: This is a 58-year-old female in no apparent distress at the time of my examination. HEENT: Head is atraumatic, normocephalic. Pupils are equal, round. Sclerae anicteric. Conjunctivae are clear. Mucous membranes of the mouth are moist. Neck is supple. There is no jugular venous distention. No carotid bruit is heard. CHEST EXAMINATION: Lungs are clear to auscultation. No chest wall tenderness is noted on palpation or with deep breathing. HEART EXAMINATION: Heart regular rate and rhythm. S1, S2 heard. No murmurs, gallops or rub. ABDOMEN: Soft, nontender. Bowel sounds are heard. No organomegaly noted. EXTREMITIES: 2+ peripheral pulses with no evidence of peripheral edema and no calf tenderness noted. NEUROLOGIC EXAMINATION: Patient is awake, alert and oriented x3. FINAL ASSESSMENT AND PLAN: Preoperative evaluation Diverticulitis History of hyperlipidemia PLAN: Patient is cleared to proceed with surgery as clinically indicated Continue lipid medications pre and postoperatively No further recommendations from the cardiac standpoint I am dictating on behalf of Dr Abbe Ford's history/physical and assessment/plan. Past Medical History Past Medical History: Asthma, COPD, GERD/Reflux, Hyperlipidemia, Osteoarthritis (OA), Syncope, Thyroid Disorder Additional Past Medical History / Comment(s): kidney stones, hypoglycemia, chronic neck and L shoulder, lower back pain. Hx L facial and L ankle fxs, sinus problems, vertigo, falls in past due to syncope, low BP at times. 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 rectocele repair, d&c Past Anesthesia/Blood Transfusion Reactions: Previous Problems w/ Anesthesia Additional Past Anesthesia/Blood Transfusion Reaction / Comment(s): "Takes longer to wake up from anesthesia." - just once Past Psychological History: ADD/ADHD, Anxiety, Depression Smoking Status: Current some day smoker - Past Family History Mother History Unknown: Yes Family Medical History: Cancer Additional Family Medical History / Comment(s): lung Father Family Medical History: Asthma, COPD, Osteoarthritis (OA) Additional Family Medical History / Comment(s): Father at age 80 yrs. Sister(s) Family Medical History: Diabetes Mellitus, Thyroid Disorder Medications and Allergies Home Medications Medication Instructions Recorded Confirmed Type Ezetimibe [Zetia] 10 mg PO HS 09/05/14 05/13/24 History Levothyroxine Sodium [Synthroid] 25 mcg PO DAILY 03/13/16 05/13/24 History Omeprazole 40 mg PO HS 11/13/05/13/24 History clonazePAM [KlonoPIN] 0.5 mg PO HS 05/03/17 05/13/24 History Methylphenidate HCl 20 mg PO TID@0500,1200,1700 09/09/18 05/13/24 History Atorvastatin Calcium [Lipitor] 10 mg PO HS 10/06/19 05/13/24 History estradioL [Estrace] 0.5 mg PO DAILY 10/06/19 05/13/24 History Citalopram Hydrobromide [CeleXA] 40 mg PO DAILY 02/09/22 05/13/24 History Fluticasone Nasal [place] [Flonase 1 spr EA NOSTRIL BID 02/04/23 05/13/24 History Nasal [place]] Brexpiprazole [Rexulti] 0.25 mg PO HS 09/18/23 05/13/24 History Cetirizine HCl [Zyrtec] 10 mg PO HS 02/03/24 05/13/24 History tiZANidine HCL 2 mg PO HS 30 Days #30 tab 05/04/24 05/13/24 Rx Varenicline [Chantix Continuing 1 mg PO BID 05/08/24 05/13/24 History Pack] Albuterol Inhaler [Ventolin Hfa 2 puff INHALATION RT-QID PRN 05/13/24 05/13/24 History Inhaler] Diclofenac Sodium Gel [Voltaren 1% 2 - 4 gm TOPICAL TID PRN 05/13/24 05/13/24 History Gel] HYDROcodone/APAP 10-325MG [[place] 1 tab PO TID 05/13/24 05/13/24 History 10-325] Ibuprofen [Motrin] 600 mg PO TID PRN 05/13/24 05/13/24 History busPIRone HCl [Buspar] 10 mg PO BID 05/13/24 05/13/24 History Allergies Allergy/AdvReac Type Severity Reaction Status Date / Time Penicillins Allergy Childhood Verified 05/13/24 10:21 Rash Physical Exam Vitals: Vital Signs Temp Pulse Pulse Resp BP BP Pulse Ox 05/14/24 07:32 97.8 F 77 17 107/66 97 05/14/24 00:33 97.7 F 54 L 16 109/69 96 05/13/24 20:08 96.3 F L 57 L 14 119/61 93 L 05/13/24 20:00 57 L 05/13/24 15:43 98.1 F 55 L 17 93/53 97 05/13/24 14:47 97.9 F 60 18 109/50 97 Intake and Output 05/13/24 05/14/24 05/14/24 22:59 06:59 14:59 Other: Voiding Method Toilet # Voids 2 8 Results 05/13/24 10:44 05/13/24 10:44 Current Medications Generic Name Dose Route Start Last Admin Trade Name Freq PRN Reason Stop Dose Admin Albuterol Sulfate 2 puff 05/13/24 14:29 Albuterol Hfa Inhaler INHALATION RT-QID PRN Shortness Of Breath Atorvastatin Calcium 10 mg 05/13/24 21:00 05/13/24 19:57 Atorvastatin 10 Mg Tab PO 10 mg HS ANN Administration Buspirone HCl 10 mg 05/13/24 21:00 05/14/24 07:55 Buspirone Hcl 10 Mg Tab PO 10 mg BID ANN Administration Citalopram Hydrobromide 40 mg 05/14/24 09:00 05/14/24 07:55 Citalopram Hydrobromide 20 Mg Tab PO 40 mg DAILY ANN Administration Clonazepam 0.5 mg 05/13/24 21:00 05/13/24 19:57 Clonazepam 0.5 Mg Tab PO 0.5 mg HS ANN Administration Fluticasone Propionate 1 spray 05/13/24 21:00 05/14/24 07:56 Fluticasone Nasal 50mcg/[place] 16gm Btl EA NOSTRIL 1 spray BID ANN Administration Hydromorphone HCl 0.5 mg 05/13/24 12:42 Hydromorphone 0.5 Mg/0.5 Ml Syringe IVP Q3HR PRN Moderate Pain (Scale 4 to 6) Hydromorphone HCl 1 mg 05/13/24 12:42 05/14/24 12:03 Hydromorphone 1 Mg/Ml 1 Ml Syringe IVP 1 mg Q3HR PRN Administration Severe Pain (Scale 7 to 10) Sodium Chloride 1,000 mls @ 130 mls/hr 05/13/24 12:45 05/14/24 07:56 Saline 0.9% IV Not Given .[id number] ANN Metronidazole 500 mg/ IV 100 mls @ 100 mls/hr 05/13/24 16:00 05/14/24 07:56 Solution IVPB 100 mls/hr Q8HR ANN Administration Protocol Levofloxacin 750 mg/ IV 150 mls @ 100 mls/hr 05/14/24 12:00 05/14/24 12:02 Solution IVPB 100 mls/hr Q24H ANN Administration Protocol Levothyroxine Sodium 25 mcg 05/14/24 09:00 05/14/24 07:55 Levothyroxine 25 Mcg Tab PO 25 mcg DAILY ANN Administration Loratadine 10 mg 05/13/24 21:00 05/13/24 19:57 Loratadine 10 Mg Tab PO 10 mg HS ANN Administration Methylphenidate HCl 20 mg 05/13/24 17:00 05/14/24 12:03 Methylphenidate Hcl 10 Mg Tab PO 20 mg TID@0500,1200,1700 ANN Administration Naloxone HCl 0.2 mg 05/13/24 12:42 Naloxone 0.4 Mg/Ml 1 Ml Vial IV Q2M PRN Opioid Reversal Non-Formulary Medication 0.25 mg 05/13/24 21:00 05/13/24 21:26 Brexpiprazole [Rexulti] PO Not Given HS ANN Ondansetron HCl 4 mg 05/13/24 12:42 05/13/24 22:26 Ondansetron 4 Mg/2 Ml Vial IVP 4 mg Q8HR PRN Administration Nausea And Vomiting Oxycodone/Acetaminophen 1 each 05/13/24 17:45 05/14/24 13:09 Oxycodone-Apap 5-325mg 1 Each Tab PO 1 each Q4HR PRN Administration Pain Pantoprazole Sodium 40 mg 05/13/24 21:00 05/13/24 19:57 Pantoprazole 40 Mg Tablet PO 40 mg HS ANN Administration Tizanidine HCl 2 mg 05/13/24 21:00 05/13/24 21:45 Tizanidine 4 Mg Tab PO 2 mg HS ANN Administration Varenicline 1 mg 05/13/24 21:00 05/14/24 07:56 Varenicline 1 Mg Tab PO 1 mg BID ANN Administration Intake and Output 05/13/24 05/14/24 05/14/24 22:59 06:59 14:59 Other: Voiding Method Toilet # Voids 2 8 05/13/24 10:44 05/13/24 10:44
--- NOTE | 2024-05-14 14:10 | P.PN ---
Subjective Progress Note Date: 05/14/24 Interval History: 58-year-old female with past medical history significant for recurrent diverticulitis, was following general surgery and was scheduled to have surgery on Wednesday presented with worsening abdominal pain more pronounced in the left lower quadrant. Patient stated that she had an episode of diverticulitis back in January, has been having on and off abdominal pain since then. Patient denied any fever, chills, nausea vomiting diarrhea constipation, hematochezia or melena. Patient denied any dysuria urgency frequency weakness or numbness to extremities, chest pain, palpitation, productive cough, sore throat. In the ED patient is afebrile, heart rate 70, respiratory rate 18, blood pressure was initially 86/65 later improved to 106/51, saturating 96% on room air. WBCs 10.3, hemoglobin 12.1, platelet 224. Lactate initially was 3.1, improved to 0.8. Sodium 135 potassium 4.2 creatinine 0.68 BUN 10. Mildly elevated AST with normal ALT bilirubin and alkaline phosphatase. UA was unremarkable. 05/14/2024atient was seen and examined today. Currently complaining of mild left lower quadrant abdominal pain, no issues overnight, afebrile, heart rate 77, respiratory rate 17, blood pressure 107/66, saturating 97% on room air. No new labs today. General surgery planning for OR 05/15/2024. Assessment and plan: Recurrent diverticulitis: Patient has history of recurrent diverticulitis, also was scheduled to have surgery on Wednesday. Presented with worsening abdominal pain. Elevated lactate on presentation, normalized after IV fluids. Denied any fever or chills. Afebrile, no leukocytosis. Further management per general surgery--plan for elective colectomy 05/15/2024 Cardiology cleared the patient for surgery. Antibiotics: Levofloxacin,, Flagylreported penicillin allergy, reported that she has tolerated Augmentin and Keflex in the past. Hyperlipidemia: Continue statin Depression/anxiety: Continue home meds. DVT prophylaxis SCD Monitor vital signs and labs Labs and medication were reviewed. Continue same treatment. Further recommendations as per clinical course of the patient PHYSICAL EXAMINATION: GENERAL: The patient is A&O x3, NAD HEENT: EOMI, Sclerae anicteric, Moist Mucous membranes Neck: Supple, Non tender, No JVD PULMONARY: Equal breath souds B/L, No wheezing, No crackles. CARDIOVASCULAR: S1, S2 present. No murmurs, rubs, or gallops. ABDOMEN: Soft, left lower quadrant tender, nondistended, normoactive bowel sounds. No guarding or rebound tenderness. MUSCULOSKELETAL: No edema, No cyanosis. No clubbing. Normal ROM. Intact peripheral pulses. EXTREMITIES: No cyanosis, clubbing, or pedal edema. NEUROLOGICAL: CN 2-12 grossly intact. No FND Skin: No Rash REVIEW OF SYSTEMS: CONSTITUTIONAL: No fever or chills. CARDIOVASCULAR: No chest pain, palpitations or syncope. PULMONARY: No shortness of breath, no cough, sore throat. GASTROINTESTINAL: No nausea, vomiting, diarrhea, complains of abdominal pain. : No Dysuria, urgency, frequency. Extremities: No edema. NEUROLOGICAL: No headaches, no weakness, or numbness Dictation was produced using [employer] dictation software. please excuse any grammatical, word or spelling errors. Objective - Vital Signs Vital signs: Vital Signs Temp 97.8 F 05/14/24 07:32 Pulse 77 05/14/24 07:32 Resp 17 05/14/24 07:32 BP 107/66 05/14/24 07:32 Pulse Ox 97 05/14/24 07:32 FiO2 Intake & Output 05/13/24 05/14/24 05/14/24 18:59 06:59 18:59 Weight 77.111 kg Other: Voiding Method Toilet # Voids 2 8 - Labs CBC & Chem 7: 05/13/24 10:44 05/13/24 10:44
[2024-05-14] MEDS ORDERED: Antibiotics per Pharmacy 1 EACH MISC MISCELLANE PRN (15:31)
--- NOTE | 2024-05-14 15:35 | P.PN ---
Subjective Progress Note Date: 05/14/24 Patient seen and evaluated. Cardiology consultation obtained due to abnormal EKG. Repeat EKG demonstrates otherwise normal sinus rhythm. Will proceed with bowel prep. Overall, colon and hands protocol initiated. Patient's other risk for complications. Objective - Vital Signs Vital signs: Vital Signs Temp 97.8 F 05/14/24 07:32 Pulse 77 05/14/24 07:32 Resp 17 05/14/24 07:32 BP 107/66 05/14/24 07:32 Pulse Ox 97 05/14/24 07:32 FiO2 Intake & Output 05/13/24 05/14/24 05/14/24 18:59 06:59 18:59 Weight 77.111 kg Other: Voiding Method Toilet # Voids 2 8 - Labs CBC & Chem 7: 05/13/24 10:44 05/13/24 10:44
[2024-05-14 15:57] LABS: Glucose,Whole Blood 91 mg/dL (70-110)
[2024-05-14] MEDS: NEOMYCIN 500 MG TAB PO SCH (16:23)
[2024-05-14] MEDS: metroNIDAZOLE 500 MG TAB PO SCH (16:23)
[2024-05-14] MEDS: PEG 3350 (236 GM/BTL) + LYTES 4,000 ML BOTTLE PO ONE (16:24)
[2024-05-14] MEDS: TEMAZEPAM 15 MG CAP PO ONE (22:06)
[2024-05-15 06:34] LABS: Basophils % (A) 0 %; Eosinophils # (A) 0.5 k/uL (0-0.7); Eosinophils % (A) 6 %; HCT 31.9 % (34.0-46.0); HGB 10.4 gm/dL (11.4-16.0); Lymphocytes # (A) 1.6 k/uL (1.0-4.8); Lymphocytes % (A) 21 %; MCH 29.8 pg (25.0-35.0); MCHC 32.6 g/dL (31.0-37.0); MCV 91.4 fL (80.0-100.0); Mean Platelet Volume 8.4; Monocytes # (A) 0.4 k/uL (0-1.0); Monocytes % (A) 5 %; Neutrophils # (A) 5.1 k/uL (1.3-7.7); Neutrophils % (A) 67 %; Platelet Count 198 k/uL (150-450); RDW 13.5 % (11.5-15.5); WBC 7.7 k/uL (3.8-10.6)
[2024-05-15 06:39] LABS: ALT 314 U/L (4-34); AST 244 U/L (14-36); African American GFR (CKD) >90 (>60 ml/min/1.73 sqM); Albumin 3.4 g/dL (3.5-5.0); Albumin/Globulin Ratio 1.6; Alkaline Phosphatase 160 U/L (38-126); Anion Gap 3 mmol/L; Blood Urea Nitrogen 7 mg/dL (7-17); Calcium 8.3 mg/dL (8.4-10.2); Carbon Dioxide 24 mmol/L (22-30); Chloride 109 mmol/L (98-107); Globulin 2.1 g/dL; Glucose 85 mg/dL (74-99); Non-African American GFR(CKD) >90 (>60 ml/min/1.73 sqM); Potassium 3.7 mmol/L (3.5-5.1); Sodium 136 mmol/L (137-145); Total Bilirubin 0.6 mg/dL (0.2-1.3); Total Protein 5.5 g/dL (6.3-8.2)
[2024-05-15] MEDS ORDERED: ACETAMINOPHEN TAB 500 MG TAB PO PRN (07:00)
[2024-05-15] MEDS: IV FLUID CONTINUATION 1,000 ML IV ONE ×2 (09:37→12:58)
[2024-05-15] MEDS: LACTATED RINGERS 1,000 ML BAG IV STA (09:42)
[2024-05-15] MEDS: ALVIMOPAN 12 MG CAPSULE PO PRN (10:04)
[2024-05-15] MEDS: FAMOTIDINE 20 MG/2 ML VIAL IV STA (10:05)
[2024-05-15 10:10] LABS: INR 1.1 (<1.2); Prothrombin Time 11.5 sec (10.0-12.5)
[2024-05-15] MEDS: DEXAMETHASONE SOD PHOSPHATE 4 MG/ML 1 ML VIAL IVP STA (10:12)
[2024-05-15] MEDS: MIDAZOLAM 2 MG/2 ML VIAL IV ONE (10:39)
[2024-05-15] MEDS ORDERED: NALOXONE 0.4 MG/ML 1 ML VIAL IV PRN (10:59)
--- NOTE | 2024-05-15 10:59 | P.ANPRN ---
Procedure Note - Anesthesia - Epidural/Spinal Epidural Continuous Time Out Performed: Yes Date of Procedure: 05/15/24 Procedure Start Time: 10:38 Procedure Stop Time: 10:44 Location of Patient: PreOp Indication: Acute Post-Operative Pain, Analgesia, Requested by Surgeon Sedation Type: Sedate with meaningful contact maintained Preparation: Sterile Prep Position: Sitting Catheter: Indwelling Needle Guage: 18 Narrative: Test dose with 3 mL of 1.5% lidocaine mixed with epinephrine. Negative signs and symptoms. Needle entrance level L1-L2. Blood Aspirated: No Pain Paresthesia on Injection Noted: No Events: Uneventful and Well Tolerated
[2024-05-15] MEDS ORDERED: HEPARIN SODIUM,PORCINE 5,000 UNIT/ML 1 ML VIAL ONE (11:22)
[2024-05-15] MEDS ORDERED: fentaNYL (PF) 50 MCG/ML 2 ML AMP ONE (11:22)
[2024-05-15] MEDS ORDERED: SUCCINYLCHOLINE CHLORIDE 200 MG/10 ML VIAL IV ONE (11:22)
[2024-05-15] MEDS ORDERED: GLYCOPYRROLATE 0.2 MG/ML 2 ML VIAL ONE (11:22)
[2024-05-15] MEDS ORDERED: ROCURONIUM 10 MG/ML (5 ML VIAL) IV ONE (11:22)
[2024-05-15] MEDS ORDERED: LIDOCAINE 1% INJ 10MG/ML (20 ML MDV) ONE (11:22)
[2024-05-15] MEDS ORDERED: PROPOFOL 10 MG/ML 20 ML VIAL IV ONE (11:22)
[2024-05-15] MEDS ORDERED: PHENYLEPHRINE-0.9% NACL SYG 1,000 MCG/10 ML SYRINGE ONE (11:22)
[2024-05-15] MEDS ORDERED: NEOSTIGMINE 1 MG/ML 10 ML VIAL ONE (11:22)
--- NOTE | 2024-05-15 13:19 | P.PN ---
Subjective Progress Note Date: 05/15/24 N.p.o. for elective colectomy today. Patient has been cleared by cardiology for the procedure. Maintained on IV fluid hydration, Levaquin, Flagyl. denies any chest pain, palpitations or shortness of breath. Maintaining O2 sats of 93 to 94% on room air. Afebrile, normal WBC, hemoglobin 10.4, platelets 198 sodium 136, potassium 3.7, bicarb 24, BUN 7, creatinine 0.62. T. bili 0.6, AST 244, ALT 314, alk phos 160. Reports pain controlled with current medication regimen. Objective - Vital Signs Vital signs: Vital Signs Temp 99.0 F 05/15/24 09:03 Pulse 63 05/15/24 10:53 Resp 16 05/15/24 10:53 BP 117/56 05/15/24 10:53 Pulse Ox 96 05/15/24 10:53 FiO2 Intake & Output 05/14/24 05/15/24 05/15/24 18:59 06:59 18:59 Intake Total 350 Balance 350 Weight 77.111 kg Intake: IV 350 Other: Voiding Method Toilet Toilet # Voids 3 5 - Exam PHYSICAL EXAMINATION: GEN:Alert and oriented x 3, sitting up in bed comfortably, no acute distress. HEENT: Normocephalic. Neck is supple. Pupils reactive. Neck:Supple, no JVD, CHEST EXAMINATION: Unlabored, equal air entry ,lung vasquez clear to auscultation and percussion. CARDIAC: Normal S1, S2 with no gallops. No murmurs ABDOMEN: Soft. Bowel sounds present, diffuse tenderness, greatest on left lower quadrant, No guarding or rigidity.+BS. Extremities: no edema. No clubbing or cyanosis Neurological: Cranial nerves II through XII grossly intact ,no focal deficits noted Skin: No rash, warm and dry - Labs CBC & Chem 7: 05/15/24 05:27 05/15/24 05:27 Labs: Abnormal Lab Results - Last 24 Hours (Table) 05/15/24 05/15/24 Range/Units 05:27 05:27 RBC 3.50 L (3.80-5.40) m/uL Hgb 10.4 L (11.4-16.0) gm/dL Hct 31.9 L (34.0-46.0) % Sodium 136 L (137-145) mmol/L Chloride 109 H (98-107) mmol/L Calcium 8.3 L (8.4-10.2) mg/dL AST 244 H (14-36) U/L ALT 314 H (4-34) U/L Alkaline Phosphatase 160 H (38-126) U/L Total Protein 5.5 L (6.3-8.2) g/dL Albumin 3.4 L (3.5-5.0) g/dL Assessment and Plan Assessment: Ongoing left lower quadrant abdominal pain, since last admission January 2024, recurrent diverticulitis ,elective colectomy pending Recently dc'd on 02/08/2024 with acute sigmoid colon diverticulitis with possible early intramural abscess per initial CT. repeat CT reported without evidence for intramural abscess, perforation or abscess. 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 NPO. Maintain IV fluid hydration, Levaquin and Flagyl. Aggressive pulmonary toileting with incentive spirometer ordered, smoking sensation reinforced-currently on chantix. The impression and plan of care has been dictated as directed. : I performed a history and examination of this patient, discussed the same with the dictator. I agree with the dictator's note ,documented as a scribe. Any additional findings or plans will be noted.
[2024-05-15] MEDS: ROPIVACAINE 250 MG, HYDROMORPHONE (PF) 5 MG in SODIUM CHLORIDE 0.9% 200 ML EPIDURAL PRN (13:27)
[2024-05-15] MEDS ORDERED: BENZOCAINE/MENTHOL LOZENG 1 EACH LOZENGE MUCOUS MEM PRN (13:35)
[2024-05-15] MEDS ORDERED: ONDANSETRON 4 MG/2 ML VIAL IVP PRN (13:35)
[2024-05-15 13:37] LABS: Glucose,Whole Blood 114 mg/dL (70-110)
--- NOTE | 2024-05-15 13:41 | P.OP ---
Date of Procedure: 05/15/24 Preoperative Diagnosis: Diverticulitis Postoperative Diagnosis: Adhesions Diverticulitis Procedure(s) Performed: Low anterior resection Lysis of adhesions Anesthesia: LEXA Surgeon: Jeremiah Alvarenga Estimated Blood Loss (ml): 5 Pathology: other (Sigmoid colon) Condition: stable Disposition: PACU Description of Procedure: DESCRIPTION OF PROCEDURE: Patient was placed on the operative table in the dorsal lithotomy position after receiving general anesthesia. Her abdomen was p repped and draped in the usual sterile fashion. A low midline skin incision made. And then use electrocautery the abdominal wall was divided. The Bookwalter tract placed the wound. The abs explored. There appeared to be adhesions and evidence of diverticular changes of the sigmoid colon. At this point the adhesions to the sigmoid colon and rectum were lysed with sharp dissection. And then the left colon was mobilized. An enterotomy was made on the proximal sigmoid colon. And then the anvil for the 29 mm EEA stapler was placed in the colon. The colon was then divided. And then the spike for the anvil was driven through the staple line. The colotomy was then closed with 3-0 Vicryl suture. Using the E LigaSure device the mesentery of the sigmoid colon and rectum were divided. The rectum was then divided with a contour stapler. At this point the housekeeper/laundry assistant went below. And then the sizer for the stapler is placed the patient's rectum. The 29 mm sizer was placed. And then the stapler was placed in the rectum. The spike for the stapler was then driven through the anterior rectal wall. The anvil was then connected stapler. The stapler then closed and fired. 2 intact tissue rings were withdrawn from the stapler. This point using a bowel clamp the bowel was occluded and then using the rigid sigmoidoscope the rectum was insufflated air. There is no evidence of any l eakage along the staple line. The abdomen is irrigated there is no bleeding seen. The fascia was closed with looped #1 PDS suture. The Prevena wound system was placed on the suhas. Patient tolerated well. He was sent to recovery in stable condition.
[2024-05-15] MEDS: ONDANSETRON 4 MG/2 ML VIAL IVP STA (13:57)
[2024-05-15] MEDS: D5-0.45% NACL WITH KCL 20MEQ/L 1,000 ML IV SCH (15:02)
[2024-05-15 15:14] LABS: Basophils # (A) 0.1 k/uL (0-0.2); Basophils % (A) 0 %; Eosinophils % (A) 0 %; HCT 34.4 % (34.0-46.0); HGB 10.8 gm/dL (11.4-16.0); Lymphocytes # (A) 0.4 k/uL (1.0-4.8); Lymphocytes % (A) 2 %; MCHC 31.3 g/dL (31.0-37.0); MCV 92.7 fL (80.0-100.0); Mean Platelet Volume 8.1; Monocytes # (A) 0.4 k/uL (0-1.0); Monocytes % (A) 2 %; Neutrophils # (A) 16.9 k/uL (1.3-7.7); Neutrophils % (A) 95 %; Platelet Count 213 k/uL (150-450); RBC 3.71 m/uL (3.80-5.40); RDW 13.4 % (11.5-15.5); WBC 17.8 k/uL (3.8-10.6)
[2024-05-15 15:16] LABS: African American GFR (CKD) >90 (>60 ml/min/1.73 sqM); Anion Gap 7 mmol/L; Blood Urea Nitrogen 8 mg/dL (7-17); Calcium 8.3 mg/dL (8.4-10.2); Carbon Dioxide 24 mmol/L (22-30); Chloride 108 mmol/L (98-107); Glucose 119 mg/dL (74-99); Non-African American GFR(CKD) >90 (>60 ml/min/1.73 sqM); Potassium 4.1 mmol/L (3.5-5.1); Sodium 139 mmol/L (137-145)
[2024-05-15] MEDS: HEPARIN SODIUM,PORCINE 5,000 UNIT/ML 1 ML VIAL SQ SCH (16:32)
[2024-05-15] MEDS: LACTATED RINGERS 300 ML IV ONE (21:53)
[2024-05-15] MEDS: ALVIMOPAN 12 MG CAPSULE PO SCH (22:27)
[2024-05-16] MEDS: LACTATED RINGERS 300 ML IV ONE ×2 (01:56)
--- NOTE | 2024-05-16 08:39 | P.PN ---
Progress Note - Text Mild in adequate analgesia. unable to increase epidural rate because of low blood pressure. Increased epidural slightly to 8 mL/h.
[2024-05-16] MEDS: ACETAMINOPHEN IV (For NPO) 1,000 MG in EMPTY BAG 1 BAG IVPB SCH (10:44)
--- NOTE | 2024-05-16 12:25 | P.PN ---
Subjective Progress Note Date: 05/16/24 CHIEF COMPLAINT: Diverticulitis HISTORY OF PRESENT ILLNESS: Patient is postop day #1 status post lower anterior resection and lysis of adhesions. Patient does complain of abdominal pain. Anesthesia did increase the epidural to 8. She is complaining of a headache. Denies any bowel activity. Urine output adequate. Denies any nausea or vomiting. Afebrile. WBC is up from 7.7-17.8. Patient did receive a dose of IV Decadron yesterday that may contribute to the white count Patient seen and examined with Dr. Alvarenga PHYSICAL EXAM: VITAL SIGNS: Reviewed. GENERAL: Well-developed in no acute distress. ABDOMEN: Soft. Mildly distended. Tender at incision site. Prevena wound VAC dressing intact NEUROLOGIC: Alert and oriented. Cranial nerves II through XII grossly intact. ASSESSMENT: 1. Diverticulitis and adhesions status post lower anterior resection with lysis of adhesions PLAN: -Continue clear liquid diet -IV Tylenol added for pain control and headache -Continue epidural and Donald catheter -Continue IV fluids -Continue antibiotics -Repeat CBC in a.m. and follow-up on leukocytosis -Check CMP follow-up on elevated LFTs -Encourage patient to use incentive spirometer -Encourage patient to increase activity level -DVT prophylaxis subcu heparin and GI prophylaxis Protonix Physician Yard Pipe Grader note has been reviewed by physician. Signing provider agrees with the documented findings, assessment, and plan of care. Objective - Vital Signs Vital signs: Vital Signs Temp 98.4 F 05/16/24 06:52 Pulse 63 05/16/24 06:52 Resp 16 05/16/24 06:52 BP 124/72 05/16/24 06:52 Pulse Ox 93 L 05/16/24 06:52 FiO2 Intake & Output 05/15/24 05/16/24 05/16/24 18:59 06:59 18:59 Intake Total 1851.7 118.65 Output Total 600 1400 Balance 1251.7 -1281.35 Weight 77.111 kg Intake: IV 1850 Intake, IV Titration 1.7 118.65 Amount Ropivacaine 250 mg 1.7 118.65 Hydromorphone (Pf) 5 mg In Sodium Chloride 0.9% 200 ml @ Per Protocol EPIDURAL .Q0M PRN Rx#: [id number] Output: Urine 550 1400 Uretheral (Donald) 400 Estimated Blood Loss 50 Other: Voiding Method Toilet Indwelling Catheter Indwelling Catheter - Labs CBC & Chem 7: 05/15/24 14:49 05/15/24 14:49 Labs: Abnormal Lab Results - Last 24 Hours (Table) 05/15/24 05/15/24 05/15/24 Range/Units 13:35 14:49 14:49 WBC 17.8 H (3.8-10.6) k/uL RBC 3.71 L (3.80-5.40) m/uL Hgb 10.8 L (11.4-16.0) gm/dL Neutrophils # 16.9 H (1.3-7.7) k/uL Lymphocytes # 0.4 L (1.0-4.8) k/uL Chloride 108 H (98-107) mmol/L Glucose 119 H (74-99) mg/dL POC Glucose (mg/dL) 114 H (70-110) mg/dL Calcium 8.3 L (8.4-10.2) mg/dL
[2024-05-17 09:09] LABS: Basophils # (A) 0.04 X 10*3/uL (0.00-0.10); Basophils % (A) 0.4 %; Eosinophils # (A) 0.29 X 10*3/uL (0.04-0.35); Eosinophils % (A) 2.6 %; HGB 9.1 g/dL (12.0-15.0); Lymphocytes # (A) 2.96 X 10*3/uL (0.90-5.00); Lymphocytes % (A) 26.9 %; MCH 29.4 pg (27.0-32.0); MCHC 32.5 g/dL (32.0-37.0); MCV 90.3 FL (80.0-97.0); Mean Platelet Volume 11.5 FL (9.5-12.2); Monocytes # (A) 0.86 X 10*3/uL (0.20-1.00); Monocytes % (A) 7.8 %; NRBC Per 100 WBC 0 X 10*3/uL (0.00-0.01); Neutrophils # (A) 6.83 X 10*3/uL (1.80-7.70); Neutrophils % (A) 62.1 %; Platelet Count 167 X 10*3/uL (140-440); RDW 14.3 % (11.5-14.5)
[2024-05-17 09:36] LABS: ALT 130 U/L (8-44); AST 59 U/L (13-35); Albumin 3.3 g/dL (3.8-4.9); Albumin/Globulin Ratio 1.94 Ratio (1.60-3.17); Alkaline Phosphatase 123 U/L (41-126); BUN/Creat Ratio 7.71 Ratio (12.00-20.00); Blood Urea Nitrogen 5.4 mg/dL (9.0-27.0); Carbon Dioxide 24.9 mmol/L (21.6-31.8); Chloride 105 mmol/L (96-109); Globulin 1.7 g/dL (1.6-3.3); Glucose 123 mg/dL (70-110); Potassium 3.8 mmol/L (3.5-5.5); Sodium 138 mmol/L (135-145); Total Bilirubin 0.3 mg/dL (0.3-1.2)
--- NOTE | 2024-05-17 11:11 | P.PN ---
Subjective Progress Note Date: 05/17/24 CHIEF COMPLAINT: Diverticulitis HISTORY OF PRESENT ILLNESS: Patient is postop day #2 status post lower anterior resection and lysis of adhesions. Patient complains of abdominal pain and did require her epidural to be increased again and is now at 12. She denies any nausea or vomiting. She is having flatus. Afebrile. WBC is down from 17.8 to 11 Hgb 9.1. LFTs trending down. Patient seen and examined with Dr. Alvarenga PHYSICAL EXAM: VITAL SIGNS: Reviewed. GENERAL: Well-developed in no acute distress. ABDOMEN: Soft. Nondistended. Tenderness at incision site. Prevena wound VAC dressing intact NEUROLOGIC: Alert and oriented. Cranial nerves II through XII grossly intact. ASSESSMENT: 1. Diverticulitis and adhesions status post lower anterior resection with lysis of adhesions PLAN: -Advance diet to full liquids -Discontinue IV fluids -Epidural and Donald catheter to be discontinued tomorrow -Continue antibiotics -Repeat CBC in a.m. -Encourage patient to use incentive spirometer -Encourage patient to increase activity level -DVT prophylaxis subcu heparin and GI prophylaxis Protonix Physician Set Up Worker note has been reviewed by physician. Signing provider agrees with the documented findings, assessment, and plan of care. Objective - Vital Signs Vital signs: Vital Signs Temp 98.1 F 05/17/24 07:20 Pulse 71 05/17/24 10:50 Resp 18 05/17/24 08:17 BP 117/66 05/17/24 10:50 Pulse Ox 92 L 05/17/24 07:20 FiO2 Intake & Output 05/16/24 05/17/24 05/17/24 18:59 06:59 18:59 Intake Total 54.8 Output Total 1400 2300 Balance 54.8 -1400 -2300 Intake: Intake, IV Titration 54.8 Amount Ropivacaine 250 mg 54.8 Hydromorphone (Pf) 5 mg In Sodium Chloride 0.9% 200 ml @ Per Protocol EPIDURAL .Q0M PRN Rx#: [id number] Output: Urine 1400 2300 Other: Voiding Method Indwelling Catheter Indwelling Catheter Indwelling Catheter - Labs CBC & Chem 7: 05/17/24 02:40 05/17/24 02:40 Labs: Abnormal Lab Results - Last 24 Hours (Table) 05/17/24 05/17/24 Range/Units 02:40 02:40 WBC 11.00 H (4.50-10.00) X 10*3/uL RBC 3.10 L (4.10-5.20) X 10*6/uL Hgb 9.1 L (12.0-15.0) g/dL Hct 28.0 L (37.2-46.3) % BUN 5.4 L (9.0-27.0) mg/dL BUN/Creatinine Ratio 7.71 L (12.00-20.00) Ratio Glucose 123 H (70-110) mg/dL Calcium 8.0 L (8.7-10.3) mg/dL AST 59 H (13-35) U/L ALT 130 H (8-44) U/L Total Protein 5.0 L (6.2-8.2) g/dL Albumin 3.3 L (3.8-4.9) g/dL
--- NOTE | 2024-05-17 12:23 | P.PN ---
Progress Note - Text Progress Note Date: 05/17/24 Patient was seen and evaluated at bedside. Postop day # 2 status post Low anterior resection. Patient is comfortably lying on the bed. Rated pain levels are 8-9 out of 10 in severity. Moving extremities well without any difficulty. Denied any red flag symptoms, pain over the catheter site. Epidural rate increased from 8 ml to 12 ml /h . Physical exam: Vital signs: stable, afebrile Catheter site: Clean, and intact Dressing. no tenderness over the catheter area. Moving lower extremities without difficulty. Assessment: Acute postoperative pain secondary to Low anterior resection. Plan: Continue epidural infusion solution of Ropivacaine 0.1% and Dilaudid 20 g per ml at the rate of 10 mL-12 per hour. checked pt 2 hours of epidural adjustment, Hypodermically stable, and comfortable . Baseline VAS 4-5/ 10 in severity. no breathing issues. If noticed any issues with epidural / blood pressure- pls Call anesthesia as needed
--- NOTE | 2024-05-17 15:49 | P.PN ---
Subjective Progress Note Date: 05/16/24 N.p.o. for elective colectomy today. Patient has been cleared by cardiology for the procedure. Maintained on IV fluid hydration, Levaquin, Flagyl. denies any chest pain, palpitations or shortness of breath. Maintaining O2 sats of 93 to 94% on room air. Afebrile, normal WBC, hemoglobin 10.4, platelets 198 sodium 136, potassium 3.7, bicarb 24, BUN 7, creatinine 0.62. T. bili 0.6, AST 244, ALT 314, alk phos 160. Reports pain controlled with current medication regimen. 05/16/2024 status post low anterior resection with lysis of adhesions, postop day #1. Tolerated procedure well. Blood pressures soft throughout the night, improved, on IV fluid hydration. positive pain, epidural recently increased this morning. Afebrile, yesterday WBC increased to 17.8,had received steroids. reports nausea last night, resolved. Denies chest pain, palpitations or shortness of breath. Maintaining O2 sats in the 90s on 2 L nasal cannula. Objective - Vital Signs Vital signs: Vital Signs Temp 98.3 F 05/16/24 12:35 Pulse 75 05/16/24 12:35 Resp 16 05/16/24 12:35 BP 118/67 05/16/24 12:35 Pulse Ox 92 L 05/16/24 12:35 FiO2 Intake & Output 05/15/24 05/16/24 05/16/24 18:59 06:59 18:59 Intake Total 1851.7 118.65 54.8 Output Total 600 1400 Balance 1251.7 -1281.35 54.8 Weight 77.111 kg Intake: IV 1850 Intake, IV Titration 1.7 118.65 54.8 Amount Ropivacaine 250 mg 1.7 118.65 54.8 Hydromorphone (Pf) 5 mg In Sodium Chloride 0.9% 200 ml @ Per Protocol EPIDURAL .Q0M PRN Rx#: [id number] Output: Urine 550 1400 Uretheral (Donald) 400 Estimated Blood Loss 50 Other: Voiding Method Toilet Indwelling Catheter Indwelling Catheter - Exam PHYSICAL EXAMINATION: GEN:Alert and oriented x 3, sitting up in bed comfortably, no acute distress. HEENT: Normocephalic. Pupils reactive. Neck:Supple, no JVD, CHEST EXAMINATION: Unlabored, equal air entry ,lung vasquez clear to auscultation and percussion. CARDIAC: Normal S1, S2 with no gallops. No murmurs ABDOMEN: Soft. Status post surgery, prevana wound VAC present. Extremities: no edema. No clubbing or cyanosis Neurological: Cranial nerves II through XII grossly intact ,no focal deficits noted Skin: No rash, warm and dry - Labs CBC & Chem 7: 05/17/24 02:40 05/17/24 02:40 Labs: Abnormal Lab Results - Last 24 Hours (Table) 05/15/24 05/15/24 Range/Units 14:49 14:49 WBC 17.8 H (3.8-10.6) k/uL RBC 3.71 L (3.80-5.40) m/uL Hgb 10.8 L (11.4-16.0) gm/dL Neutrophils # 16.9 H (1.3-7.7) k/uL Lymphocytes # 0.4 L (1.0-4.8) k/uL Chloride 108 H (98-107) mmol/L Glucose 119 H (74-99) mg/dL Calcium 8.3 L (8.4-10.2) mg/dL Assessment and Plan Assessment: Ongoing left lower quadrant abdominal pain, since last admission January 2024, recurrent diverticulitis , status post lower anterior resection with lysis of adhesions Recently dc'd on 02/08/2024 with acute sigmoid colon diverticulitis with possible early intramural abscess per initial CT. repeat CT reported without evidence for intramural abscess, perforation or abscess. 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 Maintain IV fluid hydration, antibiotics. Close monitoring of WBC, LFTs with repeat labs ordered for a.m. pain management and DVT prophylaxis as per general surgery. Continue aggressive pulmonary toileting with incentive spirometer ordered, smoking sensation reinforced. Increase activity as tolerated. The impression and plan of care has been dictated as directed. : I performed a history and examination of this patient, discussed the same with the dictator. I agree with the dictator's note ,documented as a scribe. Any additional findings or plans will be noted.
--- NOTE | 2024-05-17 16:17 | P.PN ---
Subjective Progress Note Date: 05/17/24 N.p.o. for elective colectomy today. Patient has been cleared by cardiology for the procedure. Maintained on IV fluid hydration, Levaquin, Flagyl. denies any chest pain, palpitations or shortness of breath. Maintaining O2 sats of 93 to 94% on room air. Afebrile, normal WBC, hemoglobin 10.4, platelets 198 sodium 136, potassium 3.7, bicarb 24, BUN 7, creatinine 0.62. T. bili 0.6, AST 244, ALT 314, alk phos 160. Reports pain controlled with current medication regimen. 05/16/2024 status post low anterior resection with lysis of adhesions, postop day #1. Tolerated procedure well. Blood pressures soft throughout the night, improved, on IV fluid hydration. positive pain, epidural recently increased this morning. Afebrile, yesterday WBC increased to 17.8,had received steroids. reports nausea last night, resolved. Denies chest pain, palpitations or shortness of breath. Maintaining O2 sats in the 90s on 2 L nasal cannula. 05/17/2024 positive pain, epidural increased. Passing flatus. Denies nausea or vomiting. Diet recently advanced to full liquids. Afebrile, WBC nearly normalized, 11. LFTs improving. Hemoglobin 9.1, platelets 167 .electrolytes and renal function stable. Blood sugars controlled. Objective - Vital Signs Vital signs: Vital Signs Temp 98.1 F 05/17/24 07:20 Pulse 71 05/17/24 10:50 Resp 18 05/17/24 08:17 BP 117/66 05/17/24 10:50 Pulse Ox 92 L 05/17/24 07:20 FiO2 Intake & Output 05/16/24 05/17/24 05/17/24 18:59 06:59 18:59 Intake Total 54.8 Output Total 1400 2300 Balance 54.8 -1400 -2300 Intake: Intake, IV Titration 54.8 Amount Ropivacaine 250 mg 54.8 Hydromorphone (Pf) 5 mg In Sodium Chloride 0.9% 200 ml @ Per Protocol EPIDURAL .Q0M PRN Rx#: [id number] Output: Urine 1400 2300 Other: Voiding Method Indwelling Catheter Indwelling Catheter Indwelling Catheter - Exam PHYSICAL EXAMINATION: GEN:Alert and oriented x 3, sitting up in bed comfortably, no acute distress. HEENT: Normocephalic. Pupils reactive. MMM. Neck:Supple, no JVD, CHEST EXAMINATION: Unlabored, equal air entry ,lung vasquez clear to auscultation. CARDIAC: Normal S1, S2 with no gallops. No murmurs ABDOMEN: Soft. Status post surgery, prevana wound VAC present. Extremities: no edema. No clubbing or cyanosis Neurological: Cranial nerves II through XII grossly intact ,no focal deficits noted Skin: No rash, warm and dry - Labs CBC & Chem 7: 05/17/24 02:40 05/17/24 02:40 Labs: Abnormal Lab Results - Last 24 Hours (Table) 05/17/24 05/17/24 Range/Units 02:40 02:40 WBC 11.00 H (4.50-10.00) X 10*3/uL RBC 3.10 L (4.10-5.20) X 10*6/uL Hgb 9.1 L (12.0-15.0) g/dL Hct 28.0 L (37.2-46.3) % BUN 5.4 L (9.0-27.0) mg/dL BUN/Creatinine Ratio 7.71 L (12.00-20.00) Ratio Glucose 123 H (70-110) mg/dL Calcium 8.0 L (8.7-10.3) mg/dL AST 59 H (13-35) U/L ALT 130 H (8-44) U/L Total Protein 5.0 L (6.2-8.2) g/dL Albumin 3.3 L (3.8-4.9) g/dL Assessment and Plan Assessment: Ongoing left lower quadrant abdominal pain, since last admission January 2024, recurrent diverticulitis , status post lower anterior resection with lysis of adhesions Recently dc'd on 02/08/2024 with acute sigmoid colon diverticulitis with possible early intramural abscess per initial CT. repeat CT reported without evidence for intramural abscess, perforation or abscess. Abdominal pain secondary to above Acute hypoxic respiratory failure secondary to all the above as well as atelectasis, resolved Elevated liver enzymes, trending down Leukocytosis, nearly normalized, suspect related to steroids. 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 IV fluid hydration, antibiotics.Pain management/epidural. Diet advancement as per general surgery. Maintain aggressive pulmonary toileting with incentive spirometer ordered, smoking sensation reinforced. Increase activity as tolerated. The impression and plan of care has been dictated as directed. : I performed a history and examination of this patient, discussed the same with the dictator. I agree with the dictator's note ,documented as a scribe. Any additional findings or plans will be noted.
[2024-05-17] MEDS: METOCLOPRAMIDE 5 MG/ML 2 ML VIAL IVP PRN (20:28)
[2024-05-17] MEDS: ACETAMINOPHEN TAB 500 MG TAB PO PRN (21:14)
--- NOTE | 2024-05-18 06:54 | P.PN ---
Progress Note - Text Progress Note Date: 05/18/24 (552) Anesthesia Postop day #3 Status post low anterior resection with epidural day #4 Patient seen and examined. Doing well without complaint. VAS 7 out of 10. No nausea vomiting or pruritus. Ropivacaine0.1% with Dilaudid 20 mcg/mL at 10 cc an hour. Objective: Vital signs reviewed Lungs: Good chest excursion Abdomen: Appears nondistended Neuro: No apparent motor block. Sensory within normal limits. Assessment: Status post low anterior resection postop day #3 Plan: Continue current care with your medical management. Anticipate discontinue to catheter today. Order placed. Must hold subcu heparin for 6 hours prior and may be given immediately after.
[2024-05-18 08:23] LABS: Basophils # (A) 0.03 X 10*3/uL (0.00-0.10); Basophils % (A) 0.2 %; Eosinophils # (A) 0.48 X 10*3/uL (0.04-0.35); HCT 31.1 % (37.2-46.3); HGB 10.3 g/dL (12.0-15.0); Lymphocytes # (A) 2.83 X 10*3/uL (0.90-5.00); Lymphocytes % (A) 23.5 %; MCH 29.7 pg (27.0-32.0); MCHC 33.1 g/dL (32.0-37.0); MCV 89.6 FL (80.0-97.0); Mean Platelet Volume 11.4 FL (9.5-12.2); Monocytes # (A) 0.88 X 10*3/uL (0.20-1.00); Monocytes % (A) 7.3 %; NRBC Per 100 WBC 0 X 10*3/uL (0.00-0.01); Neutrophils # (A) 7.79 X 10*3/uL (1.80-7.70); Neutrophils % (A) 64.6 %; Platelet Count 199 X 10*3/uL (140-440); RBC 3.47 X 10*6/uL (4.10-5.20); RDW 14.5 % (11.5-14.5); WBC 12.06 X 10*3/uL (4.50-10.00)
[2024-05-18 09:43] LABS: ALT 101 U/L (8-44); AST 37 U/L (13-35); Albumin 3.5 g/dL (3.8-4.9); Albumin/Globulin Ratio 1.75 Ratio (1.60-3.17); Alkaline Phosphatase 125 U/L (41-126); BUN/Creat Ratio 8.57 Ratio (12.00-20.00); Calcium 8.6 mg/dL (8.7-10.3); Carbon Dioxide 25.7 mmol/L (21.6-31.8); Chloride 103 mmol/L (96-109); Glucose 103 mg/dL (70-110); Potassium 3.9 mmol/L (3.5-5.5); Sodium 138 mmol/L (135-145); Total Bilirubin 0.2 mg/dL (0.3-1.2); Total Protein 5.5 g/dL (6.2-8.2)
--- NOTE | 2024-05-18 10:34 | CDI ---
Documentation Clarification Form Date: 05/18/2024 08:42:00 AM From: Trina Garsia RN CCDS Phone: [phone] Admit Date: 05/15/2024 02:16:00 PM Patient Name: Concetta Acuna Visit Number: [id number] Discharge Date: ATTENTION: The Clinical Documentation Specialists (CDI) and [facility] Coding Staff appreciate your assistance in clarifying documentation. Please respond to the clarification below the line at the bottom and electronically sign. The CDI & [facility] Coding staff will review the response and follow-up if needed. Please note: Queries are made part of the Legal Health Record. If you have any questions, please contact the author of this message via ITS. Doctor: Swapnil Rubin Acute postoperative pain is documented 05/17, Anesthesiology note and patient had low anterior resection and lysis of adhesions, 05/15. Additional clarification is requested regarding the relationship, if any, that exists between the diagnosis and the procedure. Patients Admitting Diagnosis: Diverticulitis Post-Operative Diagnosis: Diverticulitis, Adhesions Procedure performed: Low anterior resection, Lysis of adhesions History/Risk Factors: 58 year old female presented to the ED with abdominal pain. The patient has chronic left lower quadrant abdominal pain ongoing since January, 3 months ago due to diverticulitis. Patient reports that she developed more severe left lower quadrant abdominal pain yesterday while she was at work. Patient had elective colectomy scheduled for WednesdayMay 15. Medical History: Tobacco abuse disorder, COPD, Generalized anxiety disorder, Depressive disorder and abnormal EKG. 05/13 Clinical Indicators: 05/15, Procedure note Anesthesia: Epidural / Spinal Epidural Continuous. Indication Acute Post Operative Pain, Analgesia, Requested by Surgeon. Epidural Infusion rate: 05/15 7mls/hr; 05/16 increased to 8mls/hr, 05/18 increased to 10mls/hr Treatment: Epidural infusion increased from 8mls/hr to 10mls/hr What relationship, if any, exists between the diagnosis of Acute postoperative pain and the procedure: [X ] Acute postoperative pain is a complication of surgical procedure [ X] Acute postoperative pain is an expected outcome of the surgical procedure [ ] Acute postoperative pain is related to patients co-morbid condition(s) of [insert co-morbid dxs] & not a complication of the procedure [ ] Acute postoperative pain has been ruled out [ ] Other please specify ____ [ ] Unable to determine (Template Last Revised: October 2020) MTDD
--- NOTE | 2024-05-18 10:46 | P.PN ---
Subjective Progress Note Date: 05/18/24 CHIEF COMPLAINT: Diverticulitis HISTORY OF PRESENT ILLNESS: Patient is postop day #3 status post lower anterior resection and lysis of adhesions. Patient sitting in bedside chair. Pain controlled. Denies any nausea or vomiting. Tolerated the full liquids. Afebrile. WBC up from 11-12 Hgb 10.3 LFTs trending down PHYSICAL EXAM: VITAL SIGNS: Reviewed. GENERAL: Well-developed in no acute distress. ABDOMEN: Soft. Nondistended. Tenderness at incision site. Prevena wound VAC dressing intact NEUROLOGIC: Alert and oriented. Cranial nerves II through XII grossly intact. ASSESSMENT: 1. Diverticulitis and adhesions status post lower anterior resection with lysis of adhesions PLAN: -Continue full liquids -Epidural and Donald catheter to be discontinued today -Start oral pain medication and IV Dilaudid every 3 hours as needed -Continue antibiotics -Repeat CBC in a.m. 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 Signing provider agrees with the documented findings, assessment, and plan of care. Objective - Vital Signs Vital signs: Vital Signs Temp 98.2 F 05/18/24 01:15 Pulse 70 05/18/24 06:55 Resp 18 05/18/24 06:55 BP 119/77 05/18/24 06:55 Pulse Ox 92 L 05/18/24 06:55 FiO2 Intake & Output 05/17/24 05/18/24 05/18/24 18:59 06:59 18:59 Intake Total 219.733 70.533 Output Total 3700 825 Balance -3480.267 -754.467 Intake: Intake, IV Titration 219.733 70.533 Amount Ropivacaine 250 mg 219.733 70.533 Hydromorphone (Pf) 5 mg In Sodium Chloride 0.9% 200 ml @ Per Protocol EPIDURAL .Q0M PRN Rx#: [id number] Output: Urine 3700 825 Other: Voiding Method Indwelling Catheter Indwelling Catheter - Labs CBC & Chem 7: 05/18/24 02:53 05/18/24 02:53 Labs: Abnormal Lab Results - Last 24 Hours (Table) 05/18/24 05/18/24 Range/Units 02:53 02:53 WBC 12.06 H (4.50-10.00) X 10*3/uL RBC 3.47 L (4.10-5.20) X 10*6/uL Hgb 10.3 L (12.0-15.0) g/dL Hct 31.1 L (37.2-46.3) % Immature Gran # 0.05 H (0.00-0.04) X 10*3/uL Neutrophils # 7.79 H (1.80-7.70) X 10*3/uL Eosinophils # 0.48 H (0.04-0.35) X 10*3/uL BUN 6.0 L (9.0-27.0) mg/dL BUN/Creatinine Ratio 8.57 L (12.00-20.00) Ratio Calcium 8.6 L (8.7-10.3) mg/dL Total Bilirubin 0.2 L (0.3-1.2) mg/dL AST 37 H (13-35) U/L ALT 101 H (8-44) U/L Total Protein 5.5 L (6.2-8.2) g/dL Albumin 3.5 L (3.8-4.9) g/dL
--- NOTE | 2024-05-18 15:53 | P.PN ---
Subjective Progress Note Date: 05/18/24 N.p.o. for elective colectomy today. Patient has been cleared by cardiology for the procedure. Maintained on IV fluid hydration, Levaquin, Flagyl. denies any chest pain, palpitations or shortness of breath. Maintaining O2 sats of 93 to 94% on room air. Afebrile, normal WBC, hemoglobin 10.4, platelets 198 sodium 136, potassium 3.7, bicarb 24, BUN 7, creatinine 0.62. T. bili 0.6, AST 244, ALT 314, alk phos 160. Reports pain controlled with current medication regimen. 05/16/2024 status post low anterior resection with lysis of adhesions, postop day #1. Tolerated procedure well. Blood pressures soft throughout the night, improved, on IV fluid hydration. positive pain, epidural recently increased this morning. Afebrile, yesterday WBC increased to 17.8,had received steroids. reports nausea last night, resolved. Denies chest pain, palpitations or shortness of breath. Maintaining O2 sats in the 90s on 2 L nasal cannula. 05/17/2024 positive pain, epidural increased. Passing flatus. Denies nausea or vomiting. Diet recently advanced to full liquids. Afebrile, WBC nearly normalized, 11. LFTs improving. Hemoglobin 9.1, platelets 167 .electrolytes and renal function stable. Blood sugars controlled. 05/18/2024 reports passing flatus, no bowel movement, positive pain, improving. Tolerated diet advancement to full liquids with no nausea or vomiting. Afebrile, WBC 12.06, hemoglobin 10.3, platelets 199. Electrolytes and renal function stable. LFTs trending down. Blood sugars controlled. Maintaining O2 sats in the low 90s on room air. Objective - Vital Signs Vital signs: Vital Signs Temp 98.2 F 05/18/24 01:15 Pulse 70 05/18/24 06:55 Resp 18 05/18/24 08:22 BP 119/77 05/18/24 06:55 Pulse Ox 92 L 05/18/24 06:55 FiO2 Intake & Output 05/17/24 05/18/24 05/18/24 18:59 06:59 18:59 Intake Total 219.733 70.533 240 Output Total 3700 825 1700 Balance -3480.267 -754.467 -1460 Intake: Intake, IV Titration 219.733 70.533 Amount Ropivacaine 250 mg 219.733 70.533 Hydromorphone (Pf) 5 mg In Sodium Chloride 0.9% 200 ml @ Per Protocol EPIDURAL .Q0M PRN Rx#: [id number] Oral 240 Output: Urine 3700 825 1700 Other: Voiding Method Indwelling Catheter Indwelling Catheter Indwelling Catheter - Exam PHYSICAL EXAMINATION: GEN:Alert and oriented x 3, sitting up in bed comfortably, no acute distress. HEENT: Normocephalic. Pupils reactive. MMM. Neck:Supple, no JVD, CHEST EXAMINATION: Unlabored, equal air entry ,lung vasquez clear to auscultation. CARDIAC: Normal S1, S2 with no gallops. No murmurs ABDOMEN: Soft. Status post surgery, prevana wound VAC present. Extremities: no edema. No clubbing or cyanosis Neurological: Cranial nerves II through XII grossly intact ,no focal deficits noted Skin: No rash, warm and dry - Labs CBC & Chem 7: 05/18/24 02:53 05/18/24 02:53 Labs: Abnormal Lab Results - Last 24 Hours (Table) 05/18/24 05/18/24 Range/Units 02:53 02:53 WBC 12.06 H (4.50-10.00) X 10*3/uL RBC 3.47 L (4.10-5.20) X 10*6/uL Hgb 10.3 L (12.0-15.0) g/dL Hct 31.1 L (37.2-46.3) % Immature Gran # 0.05 H (0.00-0.04) X 10*3/uL Neutrophils # 7.79 H (1.80-7.70) X 10*3/uL Eosinophils # 0.48 H (0.04-0.35) X 10*3/uL BUN 6.0 L (9.0-27.0) mg/dL BUN/Creatinine Ratio 8.57 L (12.00-20.00) Ratio Calcium 8.6 L (8.7-10.3) mg/dL Total Bilirubin 0.2 L (0.3-1.2) mg/dL AST 37 H (13-35) U/L ALT 101 H (8-44) U/L Total Protein 5.5 L (6.2-8.2) g/dL Albumin 3.5 L (3.8-4.9) g/dL Assessment and Plan Assessment: Ongoing left lower quadrant abdominal pain, since last admission January 2024, recurrent diverticulitis , status post lower anterior resection with lysis of adhesions Recently dc'd on 02/08/2024 with acute sigmoid colon diverticulitis with possible early intramural abscess per initial CT. repeat CT reported without evidence for intramural abscess, perforation or abscess. Abdominal pain secondary to above Acute hypoxic respiratory failure secondary to all the above as well as atelectasis, resolved Elevated liver enzymes, trending down Leukocytosis, nearly normalized, suspect related to steroids. 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 Obesity, BMI 31 Plan: Continue on current medication resume ,monitoring and symptomatic treatment. Antibiotics,Pain management, diet advancement as per general surgery.Epidural and Donald catheter to be discontinued today. Patient's O2 sats mildly lower this morning, she has been encouraged to sit up in chair, increase activity as tolerated ,as well as incentive spirometer reinforced.discharge planning in progress as per primary tomorrow. The impression and plan of care has been dictated as directed. : I performed a history and examination of this patient, discussed the same with the dictator. I agree with the dictator's note ,documented as a scribe. Any additional findings or plans will be noted.
[2024-05-19] MEDS: HYDROmorphone 0.5 MG/0.5 ML SYRINGE IVP PRN (07:46)
--- NOTE | 2024-05-19 10:02 | P.PN ---
Subjective Progress Note Date: 05/19/24 N.p.o. for elective colectomy today. Patient has been cleared by cardiology for the procedure. Maintained on IV fluid hydration, Levaquin, Flagyl. denies any chest pain, palpitations or shortness of breath. Maintaining O2 sats of 93 to 94% on room air. Afebrile, normal WBC, hemoglobin 10.4, platelets 198 sodium 136, potassium 3.7, bicarb 24, BUN 7, creatinine 0.62. T. bili 0.6, AST 244, ALT 314, alk phos 160. Reports pain controlled with current medication regimen. 05/16/2024 status post low anterior resection with lysis of adhesions, postop day #1. Tolerated procedure well. Blood pressures soft throughout the night, improved, on IV fluid hydration. positive pain, epidural recently increased this morning. Afebrile, yesterday WBC increased to 17.8,had received steroids. reports nausea last night, resolved. Denies chest pain, palpitations or shortness of breath. Maintaining O2 sats in the 90s on 2 L nasal cannula. 05/17/2024 positive pain, epidural increased. Passing flatus. Denies nausea or vomiting. Diet recently advanced to full liquids. Afebrile, WBC nearly normalized, 11. LFTs improving. Hemoglobin 9.1, platelets 167 .electrolytes and renal function stable. Blood sugars controlled. 05/18/2024 reports passing flatus, no bowel movement, positive pain, improving. Tolerated diet advancement to full liquids with no nausea or vomiting. Afebrile, WBC 12.06, hemoglobin 10.3, platelets 199. Electrolytes and renal function stable. LFTs trending down. Blood sugars controlled. Maintaining O2 sats in the low 90s on room air. 05/19/2024 continues on full liquid diet ,reports positive bowel movement yesterday. Donald catheter discontinued yesterday, complains of abdominal pain. Currently on Dilaudid IV push for pain management. patient reports during the night she dropped her blood pressure, heart rate and desatted. Apparently event was mentioned in report to a.m. nurse, specific detailed documentation absent. Current documentation reports soft blood pressures throughout the night , in the low 90s, heart rates occasionally into the 50s. patient had been weaned off of O2, currently on 3 L nasal cannula maintaining O2 sats in the low 90s. Chest x- ray ordered. labs pending. Denies lightheadedness dizziness or focal deficits. Denies chest pain, palpitations or shortness of breath. Breakfast at bedside, untouched. Afebrile. Objective - Vital Signs Vital signs: Vital Signs Temp 97.9 F 05/19/24 07:06 Pulse 66 05/19/24 07:06 Resp 22 05/19/24 07:06 BP 121/74 05/19/24 07:06 Pulse Ox 92 L 05/19/24 07:06 FiO2 Intake & Output 05/18/24 05/19/24 05/19/24 18:59 06:59 18:59 Intake Total 440 Output Total 1700 850 Balance -1260 -850 Intake: Oral 440 Output: Urine 1700 850 Other: Voiding Method Indwelling Catheter Indwelling Catheter # Voids 3 # Bowel Movements 2 - Exam PHYSICAL EXAMINATION: GEN:Alert and oriented x 3, sitting up in bed, no acute distress. HEENT: Normocephalic. Pupils reactive. MMM. Neck:Supple, no JVD, CHEST EXAMINATION: Unlabored, equal air entry ,lung vasquez clear to auscultation. CARDIAC: Normal S1, S2 with no gallops. No murmurs ABDOMEN: Soft. Status post surgery, prevana wound VAC present. Extremities: no edema. No clubbing or cyanosis Neurological: Cranial nerves II through XII grossly intact ,no focal deficits noted Skin: No rash, warm and dry - Labs CBC & Chem 7: 05/18/24 02:53 05/18/24 02:53 Labs: Abnormal Lab Results - Last 24 Hours (Table) 05/18/24 Range/Units 02:53 BUN 6.0 L (9.0-27.0) mg/dL BUN/Creatinine Ratio 8.57 L (12.00-20.00) Ratio Calcium 8.6 L (8.7-10.3) mg/dL Total Bilirubin 0.2 L (0.3-1.2) mg/dL AST 37 H (13-35) U/L ALT 101 H (8-44) U/L Total Protein 5.5 L (6.2-8.2) g/dL Albumin 3.5 L (3.8-4.9) g/dL Assessment and Plan Assessment: Ongoing left lower quadrant abdominal pain, since last admission January 2024, recurrent diverticulitis , status post lower anterior resection with lysis of adhesions Recently dc'd on 02/08/2024 with acute sigmoid colon diverticulitis with possible early intramural abscess per initial CT. repeat CT reported without evidence for intramural abscess, perforation or abscess. Abdominal pain secondary to above Acute hypoxic respiratory failure secondary to all the above as well as atelectasis, resolved Elevated liver enzymes, trending down Leukocytosis, nearly normalized, suspect related to steroids. 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 Obesity, BMI 31 Plan: Continue on current medication resume ,monitoring and symptomatic treatment. Labs, chest x-ray pending .antibiotics,Pain management, diet advan cement as per general surgery. Aggressive pulmonary toileting with incentive spirometer reinforced. Up in chair for all meals, increase ambulation as tolerated. The impression and plan of care has been dictated as directed. : I performed a history and examination of this patient, discussed the same with the dictator. I agree with the dictator's note ,documented as a scribe. Any additional findings or plans will be noted.
--- NOTE | 2024-05-19 10:08 | XR ---
EXAMINATION TYPE: XR chest 2V DATE OF EXAM: 05/19/2024 COMPARISON: 03/21/2024 INDICATION: Hypoxia TECHNIQUE: Frontal and lateral views of the chest are obtained. FINDINGS: The heart size is normal. The pulmonary vasculature is normal. Some minimal lingular atelectasis may be present. Stimulator leads are within the cervical. IMPRESSION: 1. Minimal lingular atelectasis [facility], , 05/19/2024 10:06 AM
[2024-05-19 11:02] LABS: ALT 78 U/L (8-44); AST 45 U/L (13-35); Albumin 3.5 g/dL (3.8-4.9); Albumin/Globulin Ratio 1.84 Ratio (1.60-3.17); Alkaline Phosphatase 114 U/L (41-126); BUN/Creat Ratio 11.57 Ratio (12.00-20.00); Blood Urea Nitrogen 8.1 mg/dL (9.0-27.0); Calcium 8.5 mg/dL (8.7-10.3); Carbon Dioxide 25.1 mmol/L (21.6-31.8); Chloride 103 mmol/L (96-109); Globulin 1.9 g/dL (1.6-3.3); Glucose 106 mg/dL (70-110); Potassium 3.9 mmol/L (3.5-5.5); Sodium 140 mmol/L (135-145); Total Bilirubin 0.3 mg/dL (0.3-1.2); Total Protein 5.4 g/dL (6.2-8.2)
[2024-05-19 11:36] LABS: Basophils # (A) 0.04 X 10*3/uL (0.00-0.10); Basophils % (A) 0.3 %; Eosinophils # (A) 0.59 X 10*3/uL (0.04-0.35); HCT 30.3 % (37.2-46.3); HGB 10.1 g/dL (12.0-15.0); Lymphocytes # (A) 2.84 X 10*3/uL (0.90-5.00); Lymphocytes % (A) 23.9 %; MCH 29.6 pg (27.0-32.0); MCHC 33.3 g/dL (32.0-37.0); MCV 88.9 FL (80.0-97.0); Monocytes # (A) 0.81 X 10*3/uL (0.20-1.00); Monocytes % (A) 6.8 %; NRBC Per 100 WBC 0 X 10*3/uL (0.00-0.01); Neutrophils # (A) 7.55 X 10*3/uL (1.80-7.70); Neutrophils % (A) 63.7 %; Platelet Count 199 X 10*3/uL (140-440); RBC 3.41 X 10*6/uL (4.10-5.20); RDW 14.6 % (11.5-14.5); WBC 11.87 X 10*3/uL (4.50-10.00)
--- NOTE | 2024-05-19 14:19 | P.PN ---
Subjective Progress Note Date: 05/19/24 CHIEF COMPLAINT: Diverticulitis HISTORY OF PRESENT ILLNESS: Patient is postop day #4 status post lower anterior resection and lysis of adhesions. Patient reports having bowel movement. She was a little nauseous earlier this morning. She has been ambulating. She is sitting at bedside chair. Epidural Donald catheter discontinued yesterday. Patient denies any difficulty urinating. Afebrile. WBC is down from 12.06- 11.87 hemoglobin 10.1 platelets 199 sodium 140 potassium 3.9 creatinine 0.7 PHYSICAL EXAM: VITAL SIGNS: Reviewed. GENERAL: Well-developed in no acute distress. ABDOMEN: Soft. Nondistended. Tenderness at incision site. Prevena wound VAC dressing intact NEUROLOGIC: Alert and oriented. Cranial nerves II through XII grossly intact. ASSESSMENT: 1. 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 Signing provider agrees with the documented findings, assessment, and plan of care. Objective - Vital Signs Vital signs: Vital Signs Temp 97.9 F 05/19/24 07:06 Pulse 66 05/19/24 08:02 Resp 22 05/19/24 08:02 BP 121/74 05/19/24 07:06 Pulse Ox 92 L 05/19/24 07:06 FiO2 Intake & Output 05/18/24 05/19/24 05/19/24 18:59 06:59 18:59 Intake Total 440 Output Total 1700 850 Balance -1260 -850 Intake: Oral 440 Output: Urine 1700 850 Other: Voiding Method Indwelling Catheter Indwelling Catheter Toilet # Voids 3 # Bowel Movements 2 - Labs CBC & Chem 7: 05/19/24 06:06 05/19/24 06:06 Labs: Abnormal Lab Results - Last 24 Hours (Table) 05/19/24 05/19/24 Range/Units 06:06 06:06 WBC 11.87 H (4.50-10.00) X 10*3/uL RBC 3.41 L (4.10-5.20) X 10*6/uL Hgb 10.1 L (12.0-15.0) g/dL Hct 30.3 L (37.2-46.3) % RDW 14.6 H (11.5-14.5) % Eosinophils # 0.59 H (0.04-0.35) X 10*3/uL BUN 8.1 L (9.0-27.0) mg/dL BUN/Creatinine Ratio 11.57 L (12.00-20.00) Ratio Calcium 8.5 L (8.7-10.3) mg/dL AST 45 H (13-35) U/L ALT 78 H (8-44) U/L Total Protein 5.4 L (6.2-8.2) g/dL Albumin 3.5 L (3.8-4.9) g/dL
[2024-05-20] MEDS: SODIUM CHLORIDE 0.9% 1,000 ML IV ONE (00:59)
[2024-05-20] MEDS: SODIUM CHLORIDE 0.9% 1,000 ML IV SCH (02:09)
--- NOTE | 2024-05-20 09:31 | P.PN ---
Subjective Progress Note Date: 05/20/24 Patient states she feels fatigued. She did have some low blood pressures last night and the systolic in the 90 range. On exam vital signs appear stable. Abdomen soft. Status post low anterior section. Patient will be observed for her low blood pressure. If she improves she will go home tomorrow. Objective - Vital Signs Vital signs: Vital Signs Temp 97.8 F 05/20/24 07:42 Pulse 66 05/20/24 07:42 Resp 18 05/20/24 07:42 BP 116/72 05/20/24 07:42 Pulse Ox 95 05/20/24 07:42 FiO2 Intake & Output 05/19/24 05/20/24 05/20/24 18:59 06:59 18:59 Other: Voiding Method Toilet Toilet # Voids 3 2 - Labs CBC & Chem 7: 05/19/24 06:06 05/19/24 06:06 Labs: Abnormal Lab Results - Last 24 Hours (Table) 05/19/24 05/19/24 Range/Units 06:06 06:06 WBC 11.87 H (4.50-10.00) X 10*3/uL RBC 3.41 L (4.10-5.20) X 10*6/uL Hgb 10.1 L (12.0-15.0) g/dL Hct 30.3 L (37.2-46.3) % RDW 14.6 H (11.5-14.5) % Eosinophils # 0.59 H (0.04-0.35) X 10*3/uL BUN 8.1 L (9.0-27.0) mg/dL BUN/Creatinine Ratio 11.57 L (12.00-20.00) Ratio Calcium 8.5 L (8.7-10.3) mg/dL AST 45 H (13-35) U/L ALT 78 H (8-44) U/L Total Protein 5.4 L (6.2-8.2) g/dL Albumin 3.5 L (3.8-4.9) g/dL
[2024-05-20 10:56] LABS: Basophils # (A) 0.03 X 10*3/uL (0.00-0.10); Basophils % (A) 0.3 %; Eosinophils # (A) 0.56 X 10*3/uL (0.04-0.35); Eosinophils % (A) 6.1 %; HCT 28.1 % (37.2-46.3); HGB 9.3 g/dL (12.0-15.0); Lymphocytes % (A) 32.6 %; MCH 29.9 pg (27.0-32.0); MCHC 33.1 g/dL (32.0-37.0); MCV 90.4 FL (80.0-97.0); Mean Platelet Volume 11.3 FL (9.5-12.2); Monocytes # (A) 0.73 X 10*3/uL (0.20-1.00); Monocytes % (A) 7.9 %; NRBC Per 100 WBC 0 X 10*3/uL (0.00-0.01); Neutrophils # (A) 4.82 X 10*3/uL (1.80-7.70); Neutrophils % (A) 52.3 %; Platelet Count 183 X 10*3/uL (140-440); RBC 3.11 X 10*6/uL (4.10-5.20); WBC 9.21 X 10*3/uL (4.50-10.00)
[2024-05-20 11:17] LABS: ALT 60 U/L (8-44); AST 42 U/L (13-35); Albumin 3.2 g/dL (3.8-4.9); Albumin/Globulin Ratio 1.68 Ratio (1.60-3.17); Alkaline Phosphatase 97 U/L (41-126); BUN/Creat Ratio 12.67 Ratio (12.00-20.00); Blood Urea Nitrogen 7.6 mg/dL (9.0-27.0); Calcium 8.1 mg/dL (8.7-10.3); Carbon Dioxide 23.5 mmol/L (21.6-31.8); Chloride 106 mmol/L (96-109); Globulin 1.9 g/dL (1.6-3.3); Glucose 101 mg/dL (70-110); Potassium 3.9 mmol/L (3.5-5.5); Sodium 139 mmol/L (135-145); Total Bilirubin 0.3 mg/dL (0.3-1.2); Total Protein 5.1 g/dL (6.2-8.2)
[2024-05-20] MEDS: ALPRAZolam 0.25 MG TAB PO PRN (14:48)
--- NOTE | 2024-05-20 15:52 | P.PN ---
Subjective Progress Note Date: 05/20/24 N.p.o. for elective colectomy today. Patient has been cleared by cardiology for the procedure. Maintained on IV fluid hydration, Levaquin, Flagyl. denies any chest pain, palpitations or shortness of breath. Maintaining O2 sats of 93 to 94% on room air. Afebrile, normal WBC, hemoglobin 10.4, platelets 198 sodium 136, potassium 3.7, bicarb 24, BUN 7, creatinine 0.62. T. bili 0.6, AST 244, ALT 314, alk phos 160. Reports pain controlled with current medication regimen. 05/16/2024 status post low anterior resection with lysis of adhesions, postop day #1. Tolerated procedure well. Blood pressures soft throughout the night, improved, on IV fluid hydration. positive pain, epidural recently increased this morning. Afebrile, yesterday WBC increased to 17.8,had received steroids. reports nausea last night, resolved. Denies chest pain, palpitations or shortness of breath. Maintaining O2 sats in the 90s on 2 L nasal cannula. 05/17/2024 positive pain, epidural increased. Passing flatus. Denies nausea or vomiting. Diet recently advanced to full liquids. Afebrile, WBC nearly normalized, 11. LFTs improving. Hemoglobin 9.1, platelets 167 .electrolytes and renal function stable. Blood sugars controlled. 05/18/2024 reports passing flatus, no bowel movement, positive pain, improving. Tolerated diet advancement to full liquids with no nausea or vomiting. Afebrile, WBC 12.06, hemoglobin 10.3, platelets 199. Electrolytes and renal function stable. LFTs trending down. Blood sugars controlled. Maintaining O2 sats in the low 90s on room air. 05/19/2024 continues on full liquid diet ,reports positive bowel movement yesterday. Donald catheter discontinued yesterday, complains of abdominal pain. Currently on Dilaudid IV push for pain management. patient reports during the night she dropped her blood pressure, heart rate and desatted. Apparently event was mentioned in report to a.m. nurse, specific detailed documentation absent. Current documentation reports soft blood pressures throughout the night , in the low 90s, heart rates occasionally into the 50s. patient had been weaned off of O2, currently on 3 L nasal cannula maintaining O2 sats in the low 90s. Chest x- ray ordered. labs pending. Denies lightheadedness dizziness or focal deficits. Denies chest pain, palpitations or shortness of breath. Breakfast at bedside, untouched. Afebrile. 05/20/2024 Patient is evaluated today on the medical floor. Postoperative day #5 and lower anterior resection with lysis of adhesions secondary to diverticulitis and adhesions. Patient has a wound VAC in place. Chest x-ray today reveals atelectasis. She was having some decreased blood pressures down into the high 70s to low 80s overnight for this reason a 1 L fluid bolus was given and patient has been started on maintenance fluids of normal saline at 75 mL/h. Will monitor this patient for any signs of volume overload. Her blood pressure has improved at this time. General surgery like to continue to monitor the patient overnight with possible discharge home tomorrow. She remains on IV Levofloxacin as well as IV metronidazole. Review of Systems Constitutional: Denied any fatigue denied any fever. Cardio vascular: denied any chest pain, palpitations Gastrointestinal: denied any nausea, vomiting, diarrhea Pulmonary: Denied any shortness of breath cough Neurologic denied any new focal deficits All inpatient medications were reviewed and appropriate changes in these medications as dictated in the interval history and assessment and plan. PHYSICAL EXAMINATION: GENERAL: The patient is alert and oriented x3, not in any acute distress. Well developed, well nourished. HEENT: Pupils are round and equally reacting to light. EOMI. No scleral icterus. No conjunctival pallor. Normocephalic, atraumatic. No pharyngeal erythema. No thyromegaly. CARDIOVASCULAR: S1 and S2 present. No murmurs, rubs, or gallops. PULMONARY: Chest is clear to auscultation, no wheezing or crackles. ABDOMEN: Soft, nontender, nondistended, normoactive bowel sounds. No palpable organomegaly. MUSCULOSKELETAL: No joint swelling or deformity. EXTREMITIES: No cyanosis, clubbing, or pedal edema. NEUROLOGICAL: Gross neurological examination did not reveal any focal deficits. SKIN: No rashes. Assessment Ongoing left lower quadrant abdominal pain, since last admission January 2024, recurrent diverticulitis , status post lower anterior resection with lysis of adhesions Recently dc'd on 02/08/2024 with acute sigmoid colon diverticulitis with possible early intramural abscess per initial CT. repeat CT reported without evidence for intramural abscess, perforation or abscess. Abdominal pain secondary to above Acute hypoxic respiratory failure secondary to all the above as well as atelectasis, resolved Elevated liver enzymes, trending down Leukocytosis, nearly normalized, suspect related to steroids. 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 Obesity, BMI 31 Full Code Plan Continue IV antibiotics Encourage incentive spirometer Status post fluid bolus and now continues on normal saline at 75mls/hr. On regular diet and having bowel movements Monitor overnight and possible DC home tomorrow The impression and plan of care has been dictated by Love Rendon, Nurse Practitioner as directed. Dr. Haile MD I have performed a history and physical examination and medical decision making of this patient, discussed the same with the dictator, and agree with the dictators assessment and plan as written, documented as a scribe. Based on total visit time, I have performed more than 50% of this visit. Objective - Vital Signs Vital signs: Vital Signs Temp 97.8 F 05/20/24 07:42 Pulse 69 05/20/24 10:00 Resp 18 05/20/24 07:42 BP 116/72 05/20/24 07:42 Pulse Ox 96 05/20/24 10:00 FiO2 Intake & Output 05/19/24 05/20/24 05/20/24 18:59 06:59 18:59 Other: Voiding Method Toilet Toilet Toilet # Voids 3 2 - Labs CBC & Chem 7: 05/20/24 03:09 05/20/24 03:09 Labs: Abnormal Lab Results - Last 24 Hours (Table) 05/20/24 05/20/24 Range/Units 03:09 03:09 RBC 3.11 L (4.10-5.20) X 10*6/uL Hgb 9.3 L (12.0-15.0) g/dL Hct 28.1 L (37.2-46.3) % RDW 15.0 H (11.5-14.5) % Immature Gran # 0.07 H (0.00-0.04) X 10*3/uL Eosinophils # 0.56 H (0.04-0.35) X 10*3/uL BUN 7.6 L (9.0-27.0) mg/dL Calcium 8.1 L (8.7-10.3) mg/dL AST 42 H (13-35) U/L ALT 60 H (8-44) U/L Total Protein 5.1 L (6.2-8.2) g/dL Albumin 3.2 L (3.8-4.9) g/dL Assessment and Plan Time with Patient: Less than 30
[2024-05-21 09:07] VITALS: BP 109/53; PULSE 82; RESP 17; TEMP 98.7
--- NOTE | 2024-05-21 09:29 | P.DS ---
Providers Date of admission: 05/15/24 14:16 Expected date of discharge: 05/21/24 Attending physician: Jeremiah Alvarenga Consults: 05/13/24 12:42 Consult Physician Routine Consulting Provider: Ihsan Ding Reason/Comments: medical Do you want consulting provider notified?: Yes Primary care physician: Ihsan Ding [facility] Course: Is a 58-year-old female who underwent low anterior resection for diverticulitis. Patient did well postop. On the day of discharge her vital signs are stable. Abdomen soft nontender. Procedures: Low anterior resection Patient Condition at Discharge: Good Plan - Discharge Summary Discharge Rx Participant: No New Discharge Prescriptions: New oxyCODONE HCL [OxyIR] 5 mg PO Q6H PRN 3 Days #10 tab PRN Reason: Pain Docusate [Colace] 100 mg PO BID #20 capsule Ibuprofen [Motrin] 600 mg PO Q6HR PRN #40 tab PRN Reason: Pain No Action Ezetimibe [Zetia] 10 mg PO HS Levothyroxine Sodium [Synthroid] 25 mcg PO DAILY Omeprazole 40 mg PO HS clonazePAM [KlonoPIN] 0.5 mg PO HS Methylphenidate HCl 20 mg PO TID@0500,1200,1700 Atorvastatin Calcium [Lipitor] 10 mg PO HS estradioL [Estrace] 0.5 mg PO DAILY Citalopram Hydrobromide [CeleXA] 40 mg PO DAILY Fluticasone Nasal [place] [Flonase Nasal [place]] 1 spr EA NOSTRIL BID Cetirizine HCl [Zyrtec] 10 mg PO HS Ibuprofen [Motrin] 600 mg PO TID PRN PRN Reason: Pain Diclofenac Sodium Gel [Voltaren 1% Gel] 2 - 4 gm TOPICAL TID PRN PRN Reason: Pain Brexpiprazole [Rexulti] 0.25 mg PO HS tiZANidine HCL 2 mg PO HS 30 Days #30 tab Varenicline [Chantix Continuing Pack] 1 mg PO BID busPIRone HCl [Buspar] 10 mg PO BID Albuterol Inhaler [Ventolin Hfa Inhaler] 2 puff INHALATION RT-QID PRN PRN Reason: Shortness Of Breath HYDROcodone/APAP 10-325MG [[place] 10-325] 1 tab PO TID Discharge Medication List Ezetimibe [Zetia] 10 mg PO HS 09/05/14 [History] Levothyroxine Sodium [Synthroid] 25 mcg PO DAILY 03/13/16 [History] Omeprazole 40 mg PO HS 11/13/16 [History] clonazePAM [KlonoPIN] 0.5 mg PO HS 05/03/17 [History] Methylphenidate HCl 20 mg PO TID@0500,1200,1700 09/09/18 [History] Atorvastatin Calcium [Lipitor] 10 mg PO HS 10/06/19 [History] estradioL [Estrace] 0.5 mg PO DAILY 10/06/19 [History] Citalopram Hydrobromide [CeleXA] 40 mg PO DAILY 02/09/22 [History] Fluticasone Nasal [place] [Flonase Nasal [place]] 1 spr EA NOSTRIL BID 02/04/23 [History] Brexpiprazole [Rexulti] 0.25 mg PO HS 09/18/23 [History] Cetirizine HCl [Zyrtec] 10 mg PO HS 02/03/24 [History] tiZANidine HCL 2 mg PO HS 30 Days #30 tab 05/04/24 [Rx] Varenicline [Chantix Continuing Pack] 1 mg PO BID 05/08/24 [History] Albuterol Inhaler [Ventolin Hfa Inhaler] 2 puff INHALATION RT-QID PRN 05/13/24 [History] Diclofenac Sodium Gel [Voltaren 1% Gel] 2 - 4 gm TOPICAL TID PRN 05/13/24 [History] HYDROcodone/APAP 10-325MG [[place] 10-325] 1 tab PO TID 05/13/24 [History] Ibuprofen [Motrin] 600 mg PO TID PRN 05/13/24 [History] busPIRone HCl [Buspar] 10 mg PO BID 05/13/24 [History] Docusate [Colace] 100 mg PO BID #20 capsule 05/21/24 [Rx] Ibuprofen [Motrin] 600 mg PO Q6HR PRN #40 tab 05/21/24 [Rx] oxyCODONE HCL [OxyIR] 5 mg PO Q6H PRN 3 Days #10 tab 05/21/24 [Rx] Follow up Appointment(s)/Referral(s): Ihsan Ding DO [Primary Care Provider] - 1 Week Jeremiah Alvarenga MD [STAFF PHYSICIAN] - 1 Week Discharge Disposition: HOME SELF-CARE
--- NOTE | 2024-05-24 13:38 | CDI ---
Documentation Clarification Form Date: 05/18/2024 08:42:00 AM From: Trina Garsia RN CCDS Phone: [phone] Admit Date: 05/15/2024 02:16:00 PM Patient Name: Concetta Acuna Visit Number: [id number] Discharge Date: 05/21/2024 02:58:00 PM ATTENTION: The Clinical Documentation Specialists (CDI) and [facility] Coding Staff appreciate your assistance in clarifying documentation. Please respond to the clarification below the line at the bottom and electronically sign. The CDI & [facility] Coding staff will review the response and follow-up if needed. Please note: Queries are made part of the Legal Health Record. If you have any questions, please contact the author of this message via ITS. Kenzie Rubin Acute postoperative pain is documented 05/17, Anesthesiology note and patient had low anterior resection and lysis of adhesions, 05/15. Additional clarification is requested regarding the relationship, if any, that exists between the diagnosis and the procedure. Patients Admitting Diagnosis: Diverticulitis Post-Operative Diagnosis: Diverticulitis, Adhesions Procedure performed: Low anterior resection, Lysis of adhesions History/Risk Factors: 58 year old female presented to the ED with abdominal pain. The patient has chronic left lower quadrant abdominal pain ongoing since January, 3 months ago due to diverticulitis. Patient reports that she developed more severe left lower quadrant abdominal pain yesterday while she was at work. Patient had elective colectomy scheduled for WednesdayMay 15. Medical History: Tobacco abuse disorder, COPD, Generalized anxiety disorder, Depressive disorder and abnormal EKG. 05/13 Clinical Indicators: 05/15, Procedure note Anesthesia: Epidural / Spinal Epidural Continuous. Indication Acute Post Operative Pain, Analgesia, Requested by Surgeon. Epidural Infusion rate: 05/15 7mls/hr; 05/16 increased to 8mls/hr, 05/18 increased to 10mls/hr Treatment: Epidural infusion increased from 8mls/hr to 10mls/hr What relationship, if any, exists between the diagnosis of Acute postoperative pain and the procedure: [ ] Acute postoperative pain is a complication of surgical procedure [ X ] Acute postoperative pain is an expected outcome of the surgical procedure [ ] Acute postoperative pain is related to patients co-morbid condition(s) of [insert co-morbid dxs] & not a complication of the procedure [ ] Acute postoperative pain has been ruled out [ ] Other please specify ____ [ ] Unable to determine (Template Last Revised: October 2020) MTDD
== END 2024-05-21 14:58 | disposition home or self-care (01) | DRG 329 ==
LOC: EC 10:12 → 4SSUR 12:41 → OBSVTOIN 05-15 14:16
PROVIDERS: ADMIT Surgery; ATTEND Surgery
PROC: 0DBP0ZZ Excision of Rectum, Open Approach (ICD-10-PCS; 2024-05-15)
PROC: 0DNN0ZZ Release Sigmoid Colon, Open Approach (ICD-10-PCS; 2024-05-15)
PROC: 0DBN0ZZ Excision of Sigmoid Colon, Open Approach (ICD-10-PCS; principal; 2024-05-15 10:25)
DX: K57.32 Diverticulitis of large intestine without perforation or abscess without bleeding (principal); J96.01 Acute respiratory failure with hypoxia; E87.20 Acidosis, unspecified; E78.5 Hyperlipidemia, unspecified; E66.09 Other obesity due to excess calories; Z68.31 Body mass index [BMI] 31.0-31.9, adult; F41.1 Generalized anxiety disorder; F32.A Depression, unspecified; F90.9 Attention-deficit hyperactivity disorder, unspecified type; M19.90 Unspecified osteoarthritis, unspecified site; F17.200 Nicotine dependence, unspecified, uncomplicated; J44.9 Chronic obstructive pulmonary disease, unspecified; E03.9 Hypothyroidism, unspecified; Z71.6 Tobacco abuse counseling; Z79.899 Other long term (current) drug therapy; Z79.890 Hormone replacement therapy
CPT/HCPCS: 36415; 71046; 80048; 80053; 81003; 83605; 83690; 83735; 85025; 85610; 88307; 93005; 96361; 96365; 96375; 96376; 99285

== ENCOUNTER 2024-05-26 11:17 | Emergency (ER) | payer MEDICARE, OTHER ==
[2024-05-26 11:21] VITALS: TEMP 97.8
--- NOTE | 2024-05-26 11:48 | ED ---
Wound/Laceration HPI - General Chief Complaint: Wound/Laceration Stated Complaint: post op comp Time Seen by Provider: 05/26/24 11:22 Source: patient, RN notes reviewed Mode of arrival: ambulatory Limitations: no limitations - History of Present Illness Initial Comments: This is a 58-year-old female who presents to the emergency department for an open abdominal wound. Patient had a bowel resection with Dr. Alvarenga a couple of weeks ago. States that she had her suhas removed yesterday and later that day started to notice the wound opening up. She called the office and was told to just watch it. However, she presented to the emergency department because she was concerned that it was getting worse this morning. She has not noticed any drainage. She has minor discomfort associated with this. - Related Data Home Medications Medication Instructions Recorded Confirmed Ezetimibe [Zetia] 10 mg PO HS 09/05/14 05/13/24 Levothyroxine Sodium [Synthroid] 25 mcg PO DAILY 03/13/16 05/13/24 Omeprazole 40 mg PO HS 11/13/16 05/13/24 clonazePAM [KlonoPIN] 0.5 mg PO HS 05/03/17 05/13/24 Methylphenidate HCl 20 mg PO TID@0500,1200,1700 09/09/18 05/13/24 Atorvastatin Calcium [Lipitor] 10 mg PO HS 10/06/19 05/13/24 estradioL [Estrace] 0.5 mg PO DAILY 10/06/19 05/13/24 Citalopram Hydrobromide [CeleXA] 40 mg PO DAILY 02/09/22 05/13/24 Fluticasone Nasal [place] [Flonase 1 spr EA NOSTRIL BID 02/04/23 05/13/24 Nasal [place]] Brexpiprazole [Rexulti] 0.25 mg PO HS 09/18/23 05/13/24 Cetirizine HCl [Zyrtec] 10 mg PO HS 02/03/24 05/13/24 Varenicline [Chantix Continuing 1 mg PO BID 05/08/24 05/13/24 Pack] Albuterol Inhaler [Ventolin Hfa 2 puff INHALATION RT-QID PRN 05/13/24 05/13/24 Inhaler] Diclofenac Sodium Gel [Voltaren 1% 2 - 4 gm TOPICAL TID PRN 05/13/24 05/13/24 Gel] HYDROcodone/APAP 10-325MG [[place] 1 tab PO TID 05/13/24 05/13/24 10-325] Ibuprofen [Motrin] 600 mg PO TID PRN 05/13/24 05/13/24 busPIRone HCl [Buspar] 10 mg PO BID 05/13/24 05/13/24 Previous Rx's Medication Instructions Recorded tiZANidine HCL 2 mg PO HS 30 Days #30 tab 05/04/24 Docusate [Colace] 100 mg PO BID #20 capsule 05/21/24 Ibuprofen [Motrin] 600 mg PO Q6HR PRN #40 tab 05/21/24 oxyCODONE HCL [OxyIR] 5 mg PO Q6H PRN 3 Days #10 tab 05/21/24 Cephalexin [Keflex] 500 mg PO Q6HR 7 Days #28 cap 05/26/24 Allergies Allergy/AdvReac Type Severity Reaction Status Date / Time Penicillins Allergy Childhood Verified 05/13/24 10:21 Rash Review of Systems ROS Statement: Those systems with pertinent positive or pertinent negative responses have been documented in the HPI. ROS Other: All systems not noted in ROS Statement are negative. Past Medical History Past Medical History: Asthma, COPD, GERD/Reflux, Hyperlipidemia, Osteoarthritis (OA), Syncope, Thyroid Disorder Additional Past Medical History / Comment(s): kidney stones, hypoglycemia, chronic neck and L shoulder, lower back pain. Hx L facial and L ankle fxs, sinus problems, vertigo, falls in past due to syncope, low BP at times. 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 rectocele repair, d&c Past Anesthesia/Blood Transfusion Reactions: Previous Problems w/ Anesthesia Additional Past Anesthesia/Blood Transfusion Reaction / Comment(s): "Takes longer to wake up from anesthesia." - just once Past Psychological History: ADD/ADHD, Anxiety, Depression Smoking Status: Current some day smoker - Past Family History Mother History Unknown: Yes Family Medical History: Cancer Additional Family Medical History / Comment(s): lung Father Family Medical History: Asthma, COPD, Osteoarthritis (OA) Additional Family Medical History / Comment(s): Father at age 80 yrs. Sister(s) Family Medical History: Diabetes Mellitus, Thyroid Disorder General Exam Limitations: no limitations General appearance: alert, in no apparent distress Head exam: Present: atraumatic, normocephalic, normal inspection Respiratory exam: Present: normal lung sounds bilaterally. Absent: respiratory distress, wheezes, rales, rhonchi, stridor Cardiovascular Exam: Present: regular rate, normal rhythm, normal heart sounds. Absent: systolic murmur, diastolic murmur, rubs, gallop, clicks GI/Abdominal exam: Present: other (Dehiscence of the abdominal incision. No drainage, visible subcutaneous tissue, surrounding erythema, or induration.) Neurological exam: Present: alert, oriented X3, CN II-XII intact Psychiatric exam: Present: normal affect, normal mood Course Vital Signs 05/26/24 05/26/24 11:18 12:16 Temperature 97.8 F Pulse Rate 69 72 Respiratory 16 18 Rate Blood Pressure 92/54 104/69 O2 Sat by Pulse 96 96 Oximetry Medical Decision Making - Medical Decision Making This is a 58-year-old female who presents to the emergency department for an open abdominal wound. Was pt. sent in by a medical professional or institution? @ -No Did you speak to anyone other than the patient for history? @ -No Did you review nursing and triage notes? @ -Yes, and I agree, it is accurate with regards to the patient's symptoms. Were old charts reviewed? @ -No Differential Diagnosis? @ -Wound dehiscence, laceration, abrasion, infection, this is not meant to be an all-inclusive list. EKG interpreted by me (3pts min.)? @ -Not obtained X-rays interpreted by me (1pt min.)? @ -Not obtained CT interpreted by me (1pt min.)? @ -Not obtained U/S interpreted by me (1pt. min.)? @ -Not obtained What testing was considered but not performed? (CT, X-rays, U/S, labs)? Why? @ -None What meds were considered but not given? Why? @ -None Did you discuss the management of the patient with other professionals? @ -No Did you reconcile home meds? @ -No Was smoking cessation discussed for >3mins.? @ -No Was critical care preformed (if so, how long)? @ -No Were there social determinants of health that impacted care today? How? (Homelessness, low income, unemployed, alcoholism, drug addiction, transportation, low edu. Level, literacy, decrease access to med. care, snf, rehab)? @ -No Was there de-escalation of care discussed even if they declined? (Discuss DNR or withdrawal of care, Hospice)? @ -No What co-morbidities impacted this encounter? (DM, HTN, Smoking, COPD, CAD, Cancer, CVA, Hep., AIDS, mental health diagnosis, sleep apnea, morbid obesity)? @ -None Was patient admitted / discharged? @ -Discharged. On exam she had dehiscence of the abdominal incision. Only areas of collagen and scar tissue were visualized. There was no protruding subcutaneous tissue. she also had no active drainage or signs of infection. Discussed that this cannot be closed due to risk of trapping an infection. Wet-to-dry dressing was applied and she was given a prescription for Keflex for infectious prophylaxis. 1 g of Rocephin administered prior to discharge as well. Advised she contact Dr. Alvarenga's office again with an update for further instruction. Patient discharged home in stable condition. Case discussed with ED attending, Dr. Cespedes. Return precautions reviewed in depth, the patient is instructed to return to the emergency department with any new, worsening, or concerning symptoms. Patient verbalized understanding. Undiagnosed new problem with uncertain prognosis? @ -None Drug Therapy requiring intensive monitoring for toxicity (Heparin, Nitro, Insulin, Cardizem)? @ -None Were any procedures done? @ -None Diagnosis/symptom? @ -Dehiscence of abdominal incision Acute, or Chronic, or Acute on Chronic? @ -Acute Uncomplicated (without systemic symptoms) or Complicated (systemic symptoms)? @ -Uncomplicated Side effects of treatment? @ -None Exacerbation, Progression, or Severe Exacerbation] @ -Not applicable Poses a threat to life or bodily function? @ -No Disposition Clinical Impression: Wound dehiscence Disposition: HOME SELF-CARE Instructions (If sedation given, give patient instructions): Wound Dehiscence (ED) Additional Instructions: Return to the emergency department with any new, worsening, or concerning symptoms. Take the antibiotic as prescribed for 7 days. Follow-up with Dr. Alvarenga. Prescriptions: Cephalexin [Keflex] 500 mg PO Q6HR 7 Days #28 cap Is patient prescribed a controlled substance at d/c from ED?: No Referrals: Ihsan Ding DO [Primary Care Provider] - 1-2 days Time of Disposition: 11:48
[2024-05-26] MEDS: cefTRIAXone 1,000 MG VIAL (IM USE) IM STA (12:08)
[2024-05-26 12:17] VITALS: BP 104/69; PULSE 72; RESP 18
== END 2024-05-26 12:19 | disposition home or self-care (01) ==
LOC: EC 11:17
DX: Z48.89 Encounter for other specified surgical aftercare
CPT/HCPCS: 96372; 99282

== ENCOUNTER → 2024-06-07 | Outpatient (CLI) | payer MEDICARE, OTHER ==
[2024-06-07 10:15] VITALS: BP 96/65; PULSE 67; RESP 16
--- NOTE | 2024-06-07 14:35 | P.PAINPG ---
PQRS Measure Charge Sheet Comment: A 58 yr old female with a history of severe and chronic neck and LBP > 2 yr secondary to cervical and lumbar radiculopathy, spondylosis with facet arthropathy without myelopathy presents today for medication refills. Pain level is provoked at 7 /10 in intensity, constant, localized in the cervical & lumbar spine, sharp in character w shooting towards the back of the shoulders and BLEs. Pain is provoked by lifting. Pain is alleviated with PT w massage x 4 wks in Oct 2022, medications, topical , alternating heat & ice, repositioning and rest. Patient is currently on [place] 10/325mg #90, Zanaflex, Ibu, Voltaren gel Patient denies any side effects of the medication(s), denies excessive drowsiness or sleepiness, denies suicidal ideation and reports that the current pain medication is helping to control the pain and improve activities of daily living. Patient denies any motor or sensory deficits. Patient denies any fever or night sweats, denies any change in the bowel movements or urination. Physical Examination: -Constitutional: Cooperative. Not in acute distress . - Neurologic: Cranial nerve II to XII intact. No focal neurological deficits. - Psychatric: Alert & oriented x 3. Matching mood & appropriate affect. Judgment and insight intact. - Musculoskeletal: Cervical spine: Muscle bulk/ tone/ strength in the bilateral upper extremities normal Vertebral body tenderness to palpation over [place]ling test positive Distraction test positive Facet loading test positive TTP Thoracic spine Muscle bulk / tone/ strength in the bilateral paraspinal muscles normal Vertebral body tender to palpation over Facet loading test positive TTP Lumbar spine: Motor bulk/ tone/ strength lower extremities , thigh and legs : 5/5 Deep tendon reflexes : Normal Knee Jerk. Normal Ankle Jerk . Vertebral body tenderness to palpation over L4 Lumbar Facet Loading Test positive Straight Leg Raise: positive at 30 degrees right side/ left side Gaenslen's Test positive Sacral spine : Severe tenderness over the Sacroiliac joint: right side / left side Range of motion: Flexion of the lumbar spine <60 degrees Range of motion: Extension of the lumbar spine <20 degrees Gaenslen's Test positive R / L Tim test: positive right side / left side Thigh Thrust Test positive R / L Sacral Thrust Test positive R/ L Assessment and plan: Chronic neck pain and LBP secondary to cervical & lumbar radiculopathy, spondylosis with facet arthropathy without myelopathy Chronic and current use of high-risk medication (Opioids). The patient was counseled about risk of opioid use, psychological risk associated with opioids and was orally counseled to not overuse , divert or sell medications. Pt is to store medication in a safe location. The patient is counseled against driving while using narcotic medications and also not to use alcohol or any illicit recreational drugs. Patient verbalized understanding that the lack of compliance will result in failure to renew narcotic prescription(s) as well as possible discharge from the clinic Diagnoses, prognosis and treatment options including but not limited to physical therapy, surgical interventions, interventional therapies and medication management including narcotics and adjuvant medication were discussed. All patient questions answered . Opiate/ narcotic agreement renewed 02/14/24. MAPS reviewed and it was appropriate. UDS collected 06/07/24. Prescription refill for [place] 10/325mg #90 , Diclofenac gel, Zanaflex 2mg #30 w 1 RF. I have spent less than 30 minutes on patient care today. Dr Castanon was available by phone for the evaluation of this patient. The time was used to review the medical records including relevant urine studies and Prescription history (MAPs), review of the available imaging, evaluation and examination of the patient, coordination of care with the medical staff and if applicable referring physicians, as well as creation of the medical record PQRS Narrative: Smoking Status Former smoker Narcotic Agreement Date Signed 02/14/24 Hx Alcohol Use (MH) No Home Medications: Ambulatory Orders Ezetimibe [Zetia] 10 mg PO HS 09/05/14 Levothyroxine Sodium [Synthroid] 25 mcg PO DAILY 03/13/16 Omeprazole 40 mg PO HS 11/13/16 clonazePAM [KlonoPIN] 0.5 mg PO HS 05/03/17 Methylphenidate HCl 20 mg PO TID@0500,1200,1700 09/09/18 Atorvastatin Calcium [Lipitor] 10 mg PO HS 10/06/19 estradioL [Estrace] 0.5 mg PO DAILY 10/06/19 Citalopram Hydrobromide [CeleXA] 40 mg PO DAILY 02/09/22 Fluticasone Nasal [place] [Flonase Nasal [place]] 1 spr EA NOSTRIL BID 02/04/23 Brexpiprazole [Rexulti] 0.25 mg PO HS 09/18/23 Cetirizine HCl [Zyrtec] 10 mg PO HS 02/03/24 Varenicline [Chantix Continuing Pack] 1 mg PO BID 05/08/24 Albuterol Inhaler [Ventolin Hfa Inhaler] 2 puff INHALATION RT-QID PRN 05/13/24 Ibuprofen [Motrin] 600 mg PO TID PRN 05/13/24 busPIRone HCl [Buspar] 10 mg PO BID 05/13/24 Docusate [Colace] 100 mg PO BID #20 capsule 05/21/24 Ibuprofen [Motrin] 600 mg PO Q6HR PRN #40 tab 05/21/24 oxyCODONE HCL [OxyIR] 5 mg PO Q6H PRN 3 Days #10 tab 05/21/24 Cephalexin [Keflex] 500 mg PO Q6HR 7 Days #28 cap 05/26/24 Diclofenac Sodium Gel [Voltaren 1% Gel] 2 - 4 gm TOPICAL TID PRN 30 Days #1 each 06/07/24 HYDROcodone/APAP 10-325MG [[place] 10-325] 1 tab PO TID PRN 30 Days #90 tab 06/07/24 HYDROcodone/APAP 10-325MG [[place] 10-325] 1 tab PO TID PRN 30 Days #90 tab 06/07/24 tiZANidine HCL 2 mg PO HS 30 Days #30 tab 06/07/24 Controlled Substance Measures - Controlled Substance Measures Is patient prescribed a controlled substance at discharge?: Yes When asked, does pt state using other controlled substances?: Yes If prescribed controlled substance>3 days was MAPS reviewed?: Yes
== END ==
LOC: PNWHC3 07:29
PROVIDERS: ATTEND Specialist
DX: M54.16 Radiculopathy, lumbar region
CPT/HCPCS: 80307; 99212

== ENCOUNTER 2024-06-20 06:41 | Emergency (ER) | payer MEDICARE, OTHER ==
[2024-06-20 06:48] VITALS: RESP 18
--- NOTE | 2024-06-20 07:26 | ED ---
Abdominal Pain HPI - General Chief Complaint: Abdominal Pain Stated Complaint: Abd pain- post op Time Seen by Provider: 06/20/24 06:51 Source: patient, RN notes reviewed Mode of arrival: ambulatory Limitations: no limitations - History of Present Illness Initial Comments: 58-year-old female presents emergency department complaint left-sided abdominal pain. Patient had colon resection by Dr. Alvarenga in 1 month ago for diverticulitis. Patient states she is passing gas stools been less than usual. Patient states she had some nausea no fevers or chills. Patient states pain is on the left side. Patient denies any change in urination no other complaints. - Related Data Home Medications Medication Instructions Recorded Confirmed Ezetimibe [Zetia] 10 mg PO HS 09/05/14 06/07/24 Levothyroxine Sodium [Synthroid] 25 mcg PO DAILY 03/13/16 06/07/24 Omeprazole 40 mg PO HS 11/13/16 06/07/24 clonazePAM [KlonoPIN] 0.5 mg PO HS 05/03/17 06/07/24 Methylphenidate HCl 20 mg PO TID@0500,1200,1700 09/09/18 06/07/24 Atorvastatin Calcium [Lipitor] 10 mg PO HS 10/06/19 06/07/24 estradioL [Estrace] 0.5 mg PO DAILY 10/06/19 06/07/24 Citalopram Hydrobromide [CeleXA] 40 mg PO DAILY 02/09/22 06/07/24 Fluticasone Nasal Anthony [Flonase 1 spr EA NOSTRIL BID 02/04/23 06/07/24 Nasal Anthony] Brexpiprazole [Rexulti] 0.25 mg PO HS 09/18/23 06/07/24 Cetirizine HCl [Zyrtec] 10 mg PO HS 02/03/24 06/07/24 Varenicline [Chantix Continuing 1 mg PO BID 05/08/24 06/07/24 Pack] Albuterol Inhaler [Ventolin Hfa 2 puff INHALATION RT-QID PRN 05/13/24 06/07/24 Inhaler] Ibuprofen [Motrin] 600 mg PO TID PRN 05/13/24 06/07/24 busPIRone HCl [Buspar] 10 mg PO BID 05/13/24 06/07/24 Previous Rx's Medication Instructions Recorded Docusate [Colace] 100 mg PO BID #20 capsule 05/21/24 Ibuprofen [Motrin] 600 mg PO Q6HR PRN #40 tab 05/21/24 Diclofenac Sodium Gel [Voltaren 1% 2 - 4 gm TOPICAL TID PRN 30 Days 06/07/24 Gel] #1 each HYDROcodone/APAP 10-325MG [Marilla 1 tab PO TID PRN 30 Days #90 tab 06/07/24 10-325] HYDROcodone/APAP 10-325MG [Marilla 1 tab PO TID PRN 30 Days #90 tab 06/07/24 10-325] tiZANidine HCL 2 mg PO HS 30 Days #30 tab 06/07/24 Allergies Allergy/AdvReac Type Severity Reaction Status Date / Time Penicillins Allergy Childhood Verified 06/20/24 06:48 Rash Review of Systems ROS Statement: Those systems with pertinent positive or pertinent negative responses have been documented in the HPI. ROS Other: All systems not noted in ROS Statement are negative. Past Medical History Past Medical History: Asthma, COPD, GERD/Reflux, Hyperlipidemia, Osteoarthritis (OA), Syncope, Thyroid Disorder Additional Past Medical History / Comment(s): kidney stones, hypoglycemia, chronic neck and L shoulder, lower back pain. Hx L facial and L ankle fxs, sinus problems, vertigo, falls in past due to syncope, low BP at times. 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 rectocele repair, d&c , colon resection 05/15/24 Past Anesthesia/Blood Transfusion Reactions: Previous Problems w/ Anesthesia Additional Past Anesthesia/Blood Transfusion Reaction / Comment(s): "Takes longer to wake up from anesthesia." - just once Past Psychological History: ADD/ADHD, Anxiety, Depression Smoking Status: Current some day smoker Past Alcohol Use History: None Reported Past Drug Use History: None Reported - Past Family History Mother History Unknown: Yes Family Medical History: Cancer Additional Family Medical History / Comment(s): lung Father Family Medical History: Asthma, COPD, Osteoarthritis (OA) Additional Family Medical History / Comment(s): Father at age 80 yrs. Sister(s) Family Medical History: Diabetes Mellitus, Thyroid Disorder General Exam Limitations: no limitations General appearance: alert, in no apparent distress Head exam: Present: atraumatic, normocephalic, normal inspection Eye exam: Present: normal appearance, PERRL, EOMI. Absent: scleral icterus, conjunctival injection, periorbital swelling ENT exam: Present: normal exam, normal oropharynx, mucous membranes moist Neck exam: Present: normal inspection, full ROM. Absent: tenderness, meningismus, lymphadenopathy Respiratory exam: Present: normal lung sounds bilaterally. Absent: respiratory distress, wheezes, rales, rhonchi, stridor Cardiovascular Exam: Present: regular rate, normal rhythm, normal heart sounds. Absent: systolic murmur, diastolic murmur, rubs, gallop, clicks GI/Abdominal exam: Present: soft, tenderness, normal bowel sounds. Absent: distended, guarding, rebound, rigid Course Vital Signs 06/20/24 06:45 Temperature 97 F L Pulse Rate 65 Respiratory 18 Rate Blood Pressure 115/55 O2 Sat by Pulse 98 Oximetry Medical Decision Making - Medical Decision Making Was pt. sent in by a medical professional or institution (, PA, [employer], urgent care, hospital, or custodial...) When possible be specific @ -No Did you speak to anyone other than the patient for history (EMS, parent, family, police, friend...)? What history was obtained from this source @ -No Did you review nursing and triage notes (agree or disagree)? Why? @ -I reviewed and agree with nursing and triage notes Were old charts reviewed (outside hosp., previous admission, EMS record, old EKG, old radiological studies, urgent care reports/EKG's, custodial records)? Report findings @ -No old charts were reviewed Differential Diagnosis (chest pain, altered mental status, abdominal pain women, abdominal pain men, vaginal bleeding, weakness, fever, dyspnea, syncope, heada jeri, dizziness, GI bleed, back pain, seizure, CVA, palpatations, mental health, musculoskeletal)? @ -Differential Abdominal Pain Women: Appendicitis, Cholecystitis, diverticulosis, ischemic bowel, pancreatitis, hepatitis, UTI, gastroenteritis, AAA, incarcerated hernia, bowel obstruction, constipation, inflammatory bowel, hepatitis, peptic ulcer disease, splenic infarction, perforated viscus, vulvitis, ovarian torsion, PID, kidney stone, placenta abruption, this is not meant to be an all-inclusive list EKG interpreted by me (3pts min.). @ -None X-rays interpreted by me (1pt min.). @ -None done CT interpreted by me (1pt min.). @ -CT abdomen pelvis showing evidence of constipation postsurgical changes no other complications U/S interpreted by me (1pt. min.). @ -None done What testing was considered but not performed or refused? (CT, X-rays, U/S, labs)? Why? @ -None What meds were considered but not given or refused? Why? @ -None Did you discuss the management of the patient with other professionals (professionals i.e. , PA, [employer], lab, RT, psych nurse, criminal justice social worker, stereotype caster, teacher, student officer, heel caser)? Give summary @ -No Was smoking cessation discussed for >3mins.? @ -No Was critical care preformed (if so, how long)? @ -No Were there social determinants of health that impacted care today? How? (Homelessness, low income, unemployed, alcoholism, drug addiction, transpo rtation, low edu. Level, literacy, decrease access to med. care, penitentiary, rehab)? @ -No Was there de-escalation of care discussed even if they declined (Discuss DNR or withdrawal of care, Hospice)? DNR status @ -No What co-morbidities impacted this encounter? (DM, HTN, Smoking, COPD, CAD, Cancer, CVA, ARF, Chemo, Hep., AIDS, mental health diagnosis, sleep apnea, morbid obesity)? @ -None Was patient admitted / discharged? Hospital course, mention meds given and route, prescriptions, significant lab abnormalities, going to OR and other pertinent info. @ -Discharge patient presented for abdominal pain, she has postsurgical [address] shows evidence of constipation no other complaints patient discharged with magnesium citrate. Undiagnosed new problem with uncertain prognosis? @ -No Drug Therapy requiring intensive monitoring for toxicity (Heparin, Nitro, Insulin, Cardizem)? @ -No Were any procedures done? @ -No Diagnosis/symptom? @ -Abdominal pain, constipation Acute, or Chronic, or Acute on Chronic? @ -Acute Uncomplicated (without systemic symptoms) or Complicated (systemic symptoms)? @ -uncomplicated Side effects of treatment? @ -No Exacerbation, Progression, or Severe Exacerbation? @ -No Poses a threat to life or bodily function? How? (Chest pain, [place], [place], pneumonia, PE, COPD, DKA, ARF, appy, cholecystitis, CVA, Diverticulitis, Homicidal, Suicidal, threat to staff... and all critical care pts) @ -No - Lab Data Result diagrams: 06/20/24 07:49 06/20/24 07:49 Lab Results 06/20/24 06/20/24 06/20/24 Range/Units 07:49 07:49 07:49 WBC 8.6 (3.8-10.6) k/uL RBC 3.72 L (3.80-5.40) m/uL Hgb 11.0 L (11.4-16.0) gm/dL Hct 33.1 L (34.0-46.0) % MCV 89.0 (80.0-100.0) fL MCH 29.6 (25.0-35.0) pg MCHC 33.3 (31.0-37.0) g/dL RDW 13.5 (11.5-15.5) % Plt Count 220 (150-450) k/uL MPV 8.1 Neutrophils % 61 % Lymphocytes % 29 % Monocytes % 6 % Eosinophils % 3 % Basophils % 0 % Neutrophils # 5.2 (1.3-7.7) k/uL Lymphocytes # 2.5 (1.0-4.8) k/uL Monocytes # 0.5 (0-1.0) k/uL Eosinophils # 0.2 (0-0.7) k/uL Basophils # 0.0 (0-0.2) k/uL Sodium 136 L (137-145) mmol/L Potassium 4.3 (3.5-5.1) mmol/L Chloride 103 (98-107) mmol/L Carbon Dioxide 26 (22-30) mmol/L Anion Gap 7 mmol/L BUN 7 (7-17) mg/dL Creatinine 0.65 (0.52-1.04) mg/dL Est GFR (CKD-EPI)AfAm >90 (>60 ml/min/1.73 sqM) Est GFR (CKD-EPI)NonAf >90 (>60 ml/min/1.73 sqM) Glucose 95 (74-99) mg/dL Plasma Lactic Acid Chito 0.9 (0.7-2.0) mmol/L Calcium 8.7 (8.4-10.2) mg/dL Total Bilirubin 0.4 (0.2-1.3) mg/dL AST 24 (14-36) U/L ALT 15 (4-34) U/L Alkaline Phosphatase 59 (38-126) U/L Total Protein 6.1 L (6.3-8.2) g/dL Albumin 3.7 (3.5-5.0) g/dL Lipase 48 (23-300) U/L Disposition Clinical Impression: Constipation, Abdominal pain Disposition: HOME SELF-CARE Condition: Stable Instructions (If sedation given, give patient instructions): Abdominal Pain (ED) Additional Instructions: Please return to the Emergency Department if symptoms worsen or any other concerns. Is patient prescribed a controlled substance at d/c from ED?: No Referrals: Ihsan Ding DO [Primary Care Provider] - 1-2 days Time of Disposition: 09:16
[2024-06-20] MEDS: HYDROmorphone 0.5 MG/0.5 ML SYRINGE IVP STA (07:45)
[2024-06-20] MEDS: ONDANSETRON 4 MG/2 ML VIAL IVP STA (07:45)
[2024-06-20] MEDS: SODIUM CHLORIDE 0.9% 500 ML 500 ML IV STA (07:46)
[2024-06-20 07:56] LABS: Basophils % (A) 0 %; Eosinophils # (A) 0.2 k/uL (0-0.7); Eosinophils % (A) 3 %; HCT 33.1 % (34.0-46.0); Lymphocytes # (A) 2.5 k/uL (1.0-4.8); Lymphocytes % (A) 29 %; MCH 29.6 pg (25.0-35.0); MCHC 33.3 g/dL (31.0-37.0); Mean Platelet Volume 8.1; Monocytes # (A) 0.5 k/uL (0-1.0); Monocytes % (A) 6 %; Neutrophils # (A) 5.2 k/uL (1.3-7.7); Neutrophils % (A) 61 %; Platelet Count 220 k/uL (150-450); RBC 3.72 m/uL (3.80-5.40); RDW 13.5 % (11.5-15.5); WBC 8.6 k/uL (3.8-10.6)
[2024-06-20 08:07] LABS: ALT 15 U/L (4-34); AST 24 U/L (14-36); African American GFR (CKD) >90 (>60 ml/min/1.73 sqM); Albumin 3.7 g/dL (3.5-5.0); Alkaline Phosphatase 59 U/L (38-126); Anion Gap 7 mmol/L; Blood Urea Nitrogen 7 mg/dL (7-17); Calcium 8.7 mg/dL (8.4-10.2); Carbon Dioxide 26 mmol/L (22-30); Chloride 103 mmol/L (98-107); Glucose 95 mg/dL (74-99); Lipase 48 U/L (23-300); Non-African American GFR(CKD) >90 (>60 ml/min/1.73 sqM); Potassium 4.3 mmol/L (3.5-5.1); Sodium 136 mmol/L (137-145); Total Bilirubin 0.4 mg/dL (0.2-1.3); Total Protein 6.1 g/dL (6.3-8.2)
--- NOTE | 2024-06-20 09:08 | CT ---
EXAMINATION TYPE: CT abdomen pelvis w con DATE OF EXAM: 06/20/2024 8:36 AM COMPARISON: 05/01/2024 04/01/2022. CLINICAL INDICATION: Female, 58 years old with history of abdominal pain; LUQ abd pain for the past w g[place]. Pt has recent "colon resection x1 month ago TECHNIQUE: Axial CT abdomen pelvis w con;Sagittal and coronal reformats were created on a separate w orkstation. Contrast used:100 ml mL of Isovue 300 with IV Contrast, (none if empty) Oral contrast used: without Oral Contrast (none if empty) CT DLP: 1019.2 mGycm, Automated exposure control for dose reduction was used. FINDINGS: LOWER CHEST: Unremarkable ABDOMEN LIVER: Unremarkable GALLBLADDER AND BILE DUCTS: Gallbladder surgically absent. PANCREAS: Fatty atrophy changes of the pancreatic head and neck. SPLEEN: Unremarkable. ADRENAL GLANDS: Unremarkable. KIDNEYS AND URETERS: No evidence of hydronephrosis or renal calculus. The ureters are unremarkable. PELVIS BLADDER: No evidence for wall thickening or mass given limitations of exam. REPRODUCTIVE: Unremarkable. ABDOMEN & PELVIS STOMACH AND BOWEL: No evidence of bowel obstruction. Postsurgical changes to the gastroesophageal rossi ction. Large amount stool throughout the colon. Postsurgical changes sigmoid colon. No organizing flu id collections within the surgical bed. PERITONEUM/RETROPERITONEUM: No evidence of pneumoperitoneum or free fluid. VASCULATURE: No evidence of aortic aneurysm. MUSCULOSKELETAL: No acute osseous abnormalities, postsurgical changes at L4-L5 and S1. Right iliac luigi int fixation. There is separation of the alix and left L5 pedicle screw, finding is stable back to at least 04/01/2022. LYMPH NODES: No gross evidence for lymphadenopathy. SOFT TISSUE/ABDOMINAL WALL: Unremarkable IMPRESSION: 1. Large amount stool throughout the colon. Post surgical changes to gastroesophageal junction in th e sigmoid colon. No evidence for organizing fluid collection or bowel obstruction. Correlate for feca l stasis in the colon. 2. Post surgical changes with separation of the alix in the back and the left pedicle screw at L5. [facility], , 06/20/2024 9:06 AM
[2024-06-20] MEDS: MAGNESIUM CITRATE 296 ML BOTTLE PO ONE (10:07)
[2024-06-20 10:10] VITALS: BP 108/60; PULSE 81; TEMP 98
== END 2024-06-20 10:10 | disposition home or self-care (01) ==
LOC: EC 06:41
DX: K59.00 Constipation, unspecified (principal); F17.200 Nicotine dependence, unspecified, uncomplicated; Z88.0 Allergy status to penicillin
CPT/HCPCS: 36415; 80053; 83605; 83690; 85025; 74177; 99284; 96374; 96375; J2405; J1171; Q9967

== ENCOUNTER 2024-06-28 09:59 | Emergency (ER) | payer MEDICARE, OTHER ==
[2024-06-28 10:21] VITALS: TEMP 98.2
--- NOTE | 2024-06-28 10:45 | ED ---
Abdominal Pain HPI - General Chief Complaint: Abdominal Pain Stated Complaint: Abd pain Time Seen by Provider: 06/28/24 10:15 Source: patient, RN notes reviewed Mode of arrival: ambulatory Limitations: no limitations - History of Present Illness Initial Comments: This is a 58-year-old female with a history of partial colon resection due to diverticulitis presenting for persistent abdominal pain. Patient states that she was evaluated approximately a week ago for "impaction "that is since resolved. States that she has been having right lower quadrant/side abdominal pain over the last week and a half that has been persistent and has not worsened. Patient denies nausea, vomiting, fevers, chills. Last bowel movement was earlier today. Patient is still passing gas. She denies hematochezia or dark or tarry stools. Denies urinary symptoms. Denies chest pain, shortness of breath, difficulty breathing. Patient's follow-up appointment with general surgery is in approximately 1 week - Related Data Home Medications Medication Instructions Recorded Confirmed Ezetimibe [Zetia] 10 mg PO HS 09/05/14 06/07/24 Levothyroxine Sodium [Synthroid] 25 mcg PO DAILY 03/13/16 06/07/24 Omeprazole 40 mg PO HS 11/13/16 06/07/24 clonazePAM [KlonoPIN] 0.5 mg PO HS 05/03/17 06/07/24 Methylphenidate HCl 20 mg PO TID@0500,1200,1700 09/09/18 06/07/24 Atorvastatin Calcium [Lipitor] 10 mg PO HS 10/06/19 06/07/24 estradioL [Estrace] 0.5 mg PO DAILY 10/06/19 06/07/24 Citalopram Hydrobromide [CeleXA] 40 mg PO DAILY 02/09/22 06/07/24 Fluticasone Nasal [place] [Flonase 1 spr EA NOSTRIL BID 02/04/23 06/07/24 Nasal [place]] Brexpiprazole [Rexulti] 0.25 mg PO HS 09/18/23 06/07/24 Cetirizine HCl [Zyrtec] 10 mg PO HS 02/03/24 06/07/24 Varenicline [Chantix Continuing 1 mg PO BID 05/08/24 06/07/24 Pack] Albuterol Inhaler [Ventolin Hfa 2 puff INHALATION RT-QID PRN 05/13/24 06/07/24 Inhaler] Ibuprofen [Motrin] 600 mg PO TID PRN 05/13/24 06/07/24 busPIRone HCl [Buspar] 10 mg PO BID 05/13/24 06/07/24 Previous Rx's Medication Instructions Recorded Docusate [Colace] 100 mg PO BID #20 capsule 05/21/24 Ibuprofen [Motrin] 600 mg PO Q6HR PRN #40 tab 05/21/24 Diclofenac Sodium Gel [Voltaren 1% 2 - 4 gm TOPICAL TID PRN 30 Days 06/07/24 Gel] #1 each HYDROcodone/APAP 10-325MG [[place] 1 tab PO TID PRN 30 Days #90 tab 06/07/24 10-325] HYDROcodone/APAP 10-325MG [[place] 1 tab PO TID PRN 30 Days #90 tab 06/07/24 10-325] tiZANidine HCL 2 mg PO HS 30 Days #30 tab 06/07/24 Allergies Allergy/AdvReac Type Severity Reaction Status Date / Time Penicillins Allergy Childhood Verified 06/28/24 10:17 Rash Review of Systems ROS Statement: Those systems with pertinent positive or pertinent negative responses have been documented in the HPI. ROS Other: All systems not noted in ROS Statement are negative. Past Medical History Past Medical History: Asthma, COPD, GERD/Reflux, Hyperlipidemia, Osteoarthritis (OA), Syncope, Thyroid Disorder Additional Past Medical History / Comment(s): kidney stones, hypoglycemia, chronic neck and L shoulder, lower back pain. Hx L facial and L ankle fxs, sinus problems, vertigo, falls in past due to syncope, low BP at times. Fusion of sacrum and iliac crest-per , spinal cord stimulator in cervical spine, diverticulosis/diverticulitis. 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 rectocele repair, d&c , colon resection 05/15/24 Past Anesthesia/Blood Transfusion Reactions: Previous Problems w/ Anesthesia Additional Past Anesthesia/Blood Transfusion Reaction / Comment(s): "Takes longer to wake up from anesthesia." - just once Past Psychological History: ADD/ADHD, Anxiety, Depression Smoking Status: Former smoker Past Alcohol Use History: None Reported Past Drug Use History: None Reported - Past Family History Mother History Unknown: Yes Family Medical History: Cancer Additional Family Medical History / Comment(s): lung Father Family Medical History: Asthma, COPD, Osteoarthritis (OA) Additional Family Medical History / Comment(s): Father at age 80 yrs. Sister(s) Family Medical History: Diabetes Mellitus, Thyroid Disorder General Exam Limitations: no limitations General appearance: alert, in no apparent distress ENT exam: Present: normal exam, mucous membranes moist Neck exam: Present: normal inspection. Absent: tenderness, meningismus, lymphadenopathy Respiratory exam: Present: normal lung sounds bilaterally. Absent: respiratory distress, wheezes, rales, rhonchi, stridor Cardiovascular Exam: Present: regular rate, normal rhythm, normal heart sounds. Absent: systolic murmur, diastolic murmur, rubs, gallop, clicks GI/Abdominal exam: Present: soft, tenderness (mild LLQ and RLQ), normal bowel sounds, other (post sugical incision over umbilicus to suprapubic, well- appearing no erythema or purulence). Absent: distended, guarding, rebound, rigid Extremities exam: Present: normal inspection, full ROM, normal capillary refill. Absent: tenderness, pedal edema, joint swelling, calf tenderness Back exam: Present: normal inspection Skin exam: Present: warm, dry, intact, normal color. Absent: rash Course Vital Signs 06/28/24 06/28/24 10:17 12:25 Temperature 98.2 F Pulse Rate 69 60 Respiratory 20 16 Rate Blood Pressure 110/65 136/69 O2 Sat by Pulse 97 96 Oximetry Medical Decision Making - Medical Decision Making Was pt. sent in by a medical professional or institution (, PA, FREIGHT CAR REPAIRER, urgent care, hospital, or longterm...) When possible be specific @ -No Did you speak to anyone other than the patient for history (EMS, parent, family, police, friend...)? What history was obtained from this source @ -No Did you review nursing and triage notes (agree or disagree)? Why? @ -I reviewed and agree with nursing and triage notes Were old charts reviewed (outside hosp., previous admission, EMS record, old EKG, old radiological studies, urgent care reports/EKG's, longterm records)? Report findings @ -Reviewed the patient's CT of the abdomen and pelvis with IV contrast also completed on 06/20/2024 which reveals a large amount of stool within the colon with postsurgical changes no evidence for fluid collection or bowel obstruction. Differential Diagnosis (chest pain, altered mental status, abdominal pain women, abdominal pain men, vaginal bleeding, weakness, fever, dyspnea, syncope, headache, dizziness, GI bleed, back pain, seizure, CVA, palpatations, mental health, musculoskeletal)? @ -Differential Abdominal Pain Women: Appendicitis, Cholecystitis, diverticulosis, ischemic bowel, pancreatitis, hepatitis, UTI, gastroenteritis, AAA, incarcerated hernia, bowel obstruction, constipation, inflammatory bowel, hepatitis, peptic ulcer disease, splenic infarction, perforated viscus, vulvitis, ovarian torsion, PID, kidney stone, placenta abruption, this is not meant to be an all-inclusive list EKG interpreted by me (3pts min.). @ -none X-rays interpreted by me (1pt min.). @ -None done CT interpreted by me (1pt min.). @ -None done U/S interpreted by me (1pt. min.). @ -None done What testing was considered but not performed or refused? (CT, X-rays, U/S, labs)? Why? @ -None What meds were considered but not given or refused? Why? @ -None Did you discuss the management of the patient with other professionals (professionals i.e. , PA, FREIGHT CAR REPAIRER, lab, RT, psych nurse, clinical social work aide, dual rate dealer, teacher, agricultural loan officer, case fitter)? Give summary @ -No Was smoking cessation discussed for >3mins.? @ -No Was critical care preformed (if so, how long)? @ -No Were there social determinants of health that impacted care today? How? (Homelessness, low income, unemployed, alcoholism, drug addiction, transportation, low edu. Level, literacy, decrease access to med. care, care home, rehab)? @ -No Was there de-escalation of care discussed even if they declined (Discuss DNR or withdrawal of care, Hospice)? DNR status @ -No What co-morbidities impacted this encounter? (DM, HTN, Smoking, COPD, CAD, C ancer, CVA, ARF, Chemo, Hep., AIDS, mental health diagnosis, sleep apnea, morbid obesity)? @ -None Was patient admitted / discharged? Hospital course, mention meds given and route, prescriptions, significant lab abnormalities, going to OR and other pertinent info. @ -Discharge. 58-year-old female with abdominal pain. On my evaluation of the patient she is resting comfortably no signs acute distress. Her vital signs are stable. Patient is noted to have mild tenderness palpation of the right lower quadrant left lower quadrant with postsurgical incision of the abdomen that is well healing and no signs of dehiscence or erythema or purulence. Patient states that her abdominal pain has been persistent in the right lower abdomen over the past week and 1/2 to 2 weeks and patient had a CT imaging of the abdomen completed during this time. Additionally, patient had appendectomy com pleted previously. shared decision-making with the patient at bedside that CT of the abdomen be deferred at this time pending laboratory results. She is agree with this plan. Laboratory results including urinalysis within normal limits. Patient's abdominal pain has improved after medication administration. Patient has [place] that she takes at home prescribed by pain management. Recommend that she contact her general surgeons office to schedule sooner follow-up appointment for further evaluation. All questions have been answered at bedside and strict return parameters discussed with the patient she is verbalized understanding. Discussed with Dr. Cespedes Undiagnosed new problem with uncertain prognosis? @ -No Drug Therapy requiring intensive monitoring for toxicity (Heparin, Nitro, Insulin, Cardizem)? @ -No Were any procedures done? @ -No Diagnosis/symptom? @ -unspecified abdominal pain Acute, or Chronic, or Acute on Chronic? @ -Acute Uncomplicated (without systemic symptoms) or Complicated (systemic symptoms)? @ -uncomplicated Side effects of treatment? @ -No Exacerbation, Progression, or Severe Exacerbation? @ -No Poses a threat to life or bodily function? How? (Chest pain, [place], [place], pneumonia, PE, COPD, DKA, ARF, appy, cholecystitis, CVA, Diverticulitis, Homicidal, Suicidal, threat to staff... and all critical care pts) @ -No - Lab Data Result diagrams: 06/28/24 10:49 06/28/24 10:49 Lab Results 06/28/24 06/28/24 06/28/24 Range/Units 10:49 10:49 10:49 WBC 10.1 (3.8-10.6) k/uL RBC 3.93 (3.80-5.40) m/uL Hgb 11.5 (11.4-16.0) gm/dL Hct 35.2 (34.0-46.0) % MCV 89.4 (80.0-100.0) fL MCH 29.2 (25.0-35.0) pg MCHC 32.7 (31.0-37.0) g/dL RDW 13.4 (11.5-15.5) % Plt Count 241 (150-450) k/uL MPV 8.0 Neutrophils % 66 % Lymphocytes % 26 % Monocytes % 5 % Eosinophils % 2 % Basophils % 0 % Neutrophils # 6.6 (1.3-7.7) k/uL Lymphocytes # 2.6 (1.0-4.8) k/uL Monocytes # 0.5 (0-1.0) k/uL Eosinophils # 0.2 (0-0.7) k/uL Basophils # 0.0 (0-0.2) k/uL Sodium 138 (137-145) mmol/L Potassium 4.5 (3.5-5.1) mmol/L Chloride 104 (98-107) mmol/L Carbon Dioxide 28 (22-30) mmol/L Anion Gap 6 mmol/L BUN 8 (7-17) mg/dL Creatinine 0.68 (0.52-1.04) mg/dL Est GFR (CKD-EPI)AfAm >90 (>60 ml/min/1.73 sqM) Est GFR (CKD-EPI)NonAf >90 (>60 ml/min/1.73 sqM) Glucose 93 (74-99) mg/dL Plasma Lactic Acid [place] (0.7-2.0) mmol/L Calcium 9.0 (8.4-10.2) mg/dL Total Bilirubin 0.4 (0.2-1.3) mg/dL AST 22 (14-36) U/L ALT 16 (4-34) U/L Alkaline Phosphatase 69 (38-126) U/L Total Protein 6.8 (6.3-8.2) g/dL Albumin 4.2 (3.5-5.0) g/dL Amylase 35 (30-110) U/L Lipase 70 (23-300) U/L Urine Color Colorless Urine Appearance Clear (Clear) Urine pH 6.0 (5.0-8.0) Ur Specific [place] 1.002 (1.001-1.035) Urine Protein Negative (Negative) Urine Glucose (UA) Negative (Negative) Urine Ketones Negative (Negative) Urine Blood Negative (Negative) Urine Nitrite Negative (Negative) Urine Bilirubin Negative (Negative) Urine Urobilinogen <2.0 (<2.0) mg/dL Ur Leukocyte Esterase Negative (Negative) 06/28/24 Range/Units 10:49 WBC (3.8-10.6) k/uL RBC (3.80-5.40) m/uL Hgb (11.4-16.0) gm/dL Hct (34.0-46.0) % MCV (80.0-100.0) fL MCH (25.0-35.0) pg MCHC (31.0-37.0) g/dL RDW (11.5-15.5) % Plt Count (150-450) k/uL MPV Neutrophils % % Lymphocytes % % Monocytes % % Eosinophils % % Basophils % % Neutrophils # (1.3-7.7) k/uL Lymphocytes # (1.0-4.8) k/uL Monocytes # (0-1.0) k/uL Eosinophils # (0-0.7) k/uL Basophils # (0-0.2) k/uL Sodium (137-145) mmol/L Potassium (3.5-5.1) mmol/L Chloride (98-107) mmol/L Carbon Dioxide (22-30) mmol/L Anion Gap mmol/L BUN (7-17) mg/dL Creatinine (0.52-1.04) mg/dL Est GFR (CKD-EPI)AfAm (>60 ml/min/1.73 sqM) Est GFR (CKD-EPI)NonAf (>60 ml/min/1.73 sqM) Glucose (74-99) mg/dL Plasma Lactic Acid [place] 1.4 (0.7-2.0) mmol/L Calcium (8.4-10.2) mg/dL Total Bilirubin (0.2-1.3) mg/dL AST (14-36) U/L ALT (4-34) U/L Alkaline Phosphatase (38-126) U/L Total Protein (6.3-8.2) g/dL Albumin (3.5-5.0) g/dL Amylase (30-110) U/L Lipase (23-300) U/L Urine Color Urine Appearance (Clear) Urine pH (5.0-8.0) Ur Specific [place] (1.001-1.035) Urine Protein (Negative) Urine Glucose (UA) (Negative) Urine Ketones (Negative) Urine Blood (Negative) Urine Nitrite (Negative) Urine Bilirubin (Negative) Urine Urobilinogen (<2.0) mg/dL Ur Leukocyte Esterase (Negative) Disposition Clinical Impression: Abdominal pain Disposition: HOME SELF-CARE Condition: Good Instructions (If sedation given, give patient instructions): Abdominal Pain (ED) Additional Instructions: Please return to the Emergency Department if symptoms worsen or any other concerns. Recommend that you continue to follow-up as scheduled with general surgeon for further evaluation. Is patient prescribed a controlled substance at d/c from ED?: No Referrals: Ihsan Ding DO [Primary Care Provider] - 1-2 days Time of Disposition: 11:50
[2024-06-28] MEDS: MORPHINE SULFATE 4 MG/ML SYRINGE IVP STA ×2 (11:11→12:17)
[2024-06-28 11:30] LABS: Basophils % (A) 0 %; Eosinophils # (A) 0.2 k/uL (0-0.7); Eosinophils % (A) 2 %; HCT 35.2 % (34.0-46.0); HGB 11.5 gm/dL (11.4-16.0); Lymphocytes # (A) 2.6 k/uL (1.0-4.8); Lymphocytes % (A) 26 %; MCH 29.2 pg (25.0-35.0); MCHC 32.7 g/dL (31.0-37.0); MCV 89.4 fL (80.0-100.0); Monocytes # (A) 0.5 k/uL (0-1.0); Monocytes % (A) 5 %; Neutrophils # (A) 6.6 k/uL (1.3-7.7); Neutrophils % (A) 66 %; Platelet Count 241 k/uL (150-450); RBC 3.93 m/uL (3.80-5.40); RDW 13.4 % (11.5-15.5); WBC 10.1 k/uL (3.8-10.6)
[2024-06-28 11:33] LABS: Appearance,Urine Clear (Clear); Bilirubin,Urine Negative (Negative); Blood,Urine Negative (Negative); Color,Urine Colorless; Glucose,Urine (UA) Negative (Negative); Ketones,Urine Negative (Negative); Leukocyte Esterase,Urine Negative (Negative); Nitrite,Urine Negative (Negative); Protein,Urine Negative (Negative); Specific Gravity,Urine 1.002 (1.001-1.035); Urobilinogen,Urine <2.0 mg/dL (<2.0)
[2024-06-28 11:35] LABS: ALT 16 U/L (4-34); AST 22 U/L (14-36); African American GFR (CKD) >90 (>60 ml/min/1.73 sqM); Albumin 4.2 g/dL (3.5-5.0); Alkaline Phosphatase 69 U/L (38-126); Amylase 35 U/L (30-110); Anion Gap 6 mmol/L; Blood Urea Nitrogen 8 mg/dL (7-17); Carbon Dioxide 28 mmol/L (22-30); Chloride 104 mmol/L (98-107); Glucose 93 mg/dL (74-99); Lipase 70 U/L (23-300); Non-African American GFR(CKD) >90 (>60 ml/min/1.73 sqM); Potassium 4.5 mmol/L (3.5-5.1); Sodium 138 mmol/L (137-145); Total Bilirubin 0.4 mg/dL (0.2-1.3); Total Protein 6.8 g/dL (6.3-8.2)
[2024-06-28 12:27] VITALS: BP 136/69; PULSE 60; RESP 16
== END 2024-06-28 12:25 | disposition home or self-care (01) ==
LOC: EC 09:59
DX: R10.31 Right lower quadrant pain (principal); R10.32 Left lower quadrant pain; Z87.891 Personal history of nicotine dependence; Z88.0 Allergy status to penicillin
CPT/HCPCS: 36415; 80053; 82150; 83605; 83690; 85025; 81003; 99284; 96374; 96376; J2270

== ENCOUNTER 2024-07-02 10:03 | Emergency (ER) | payer MEDICARE, OTHER ==
[2024-07-02 11:06] LABS: Basophils # (A) 0.1 k/uL (0-0.2); Basophils % (A) 1 %; Eosinophils # (A) 0.2 k/uL (0-0.7); Eosinophils % (A) 3 %; HCT 35.1 % (34.0-46.0); HGB 11.8 gm/dL (11.4-16.0); Lymphocytes # (A) 3.2 k/uL (1.0-4.8); Lymphocytes % (A) 38 %; MCH 30.3 pg (25.0-35.0); MCHC 33.6 g/dL (31.0-37.0); MCV 90.2 fL (80.0-100.0); Monocytes # (A) 0.5 k/uL (0-1.0); Monocytes % (A) 6 %; Neutrophils # (A) 4.3 k/uL (1.3-7.7); Neutrophils % (A) 51 %; Platelet Count 233 k/uL (150-450); RBC 3.89 m/uL (3.80-5.40); RDW 13.2 % (11.5-15.5); WBC 8.5 k/uL (3.8-10.6)
[2024-07-02 11:08] VITALS: RESP 18
[2024-07-02] MEDS: ONDANSETRON 4 MG/2 ML VIAL IVP STA (11:09)
[2024-07-02] MEDS: KETOROLAC 15 MG/ML 1 ML VIAL IVP STA (11:14)
[2024-07-02] MEDS: SODIUM CHLORIDE 0.9% 1,000 ML IV STA (11:14)
[2024-07-02 11:15] LABS: ALT 26 U/L (4-34); AST 30 U/L (14-36); African American GFR (CKD) >90 (>60 ml/min/1.73 sqM); Alkaline Phosphatase 80 U/L (38-126); Amylase 37 U/L (30-110); Anion Gap 7 mmol/L; Blood Urea Nitrogen 8 mg/dL (7-17); Calcium 8.9 mg/dL (8.4-10.2); Carbon Dioxide 28 mmol/L (22-30); Chloride 104 mmol/L (98-107); Glucose 116 mg/dL (74-99); Lipase 102 U/L (23-300); Non-African American GFR(CKD) >90 (>60 ml/min/1.73 sqM); Potassium 4.4 mmol/L (3.5-5.1); Sodium 139 mmol/L (137-145); Total Bilirubin 0.3 mg/dL (0.2-1.3); Total Protein 6.6 g/dL (6.3-8.2)
--- NOTE | 2024-07-02 11:18 | ED ---
Abdominal Pain HPI - General Chief Complaint: Abdominal Pain Stated Complaint: abd pain Time Seen by Provider: 07/02/24 11:18 Source: patient, RN notes reviewed Mode of arrival: ambulatory Limitations: no limitations - History of Present Illness Initial Comments: 59-year-old female presenting to the ER with a chief complaint of abdominal pain. Patient underwent colon resection by Dr. Alvarenga on 05-15-2024 due to diverticulitis. Patient states she was seen here 2 days prior for similar complaint. Pain has persisted. She describes the pain as sharp and burning in nature. She locates it to her right lower abdomen. She denies any radiation of the pain. Patient reports normal bowel movements last on this morning. Denies any nausea, vomiting or urinary complaints appropriate appetite. Patient has been taking prescribed [place], last dose today at 500, for pain control without relief. Patient is scheduled to follow-up with Dr. Alvarenga on , 07-06-24. No other complaints. - Related Data Home Medications Medication Instructions Recorded Confirmed Ezetimibe [Zetia] 10 mg PO HS 09/05/14 06/07/24 Levothyroxine Sodium [Synthroid] 25 mcg PO DAILY 03/13/16 06/07/24 Omeprazole 40 mg PO HS 11/13/16 06/07/24 clonazePAM [KlonoPIN] 0.5 mg PO HS 05/03/17 06/07/24 Methylphenidate HCl 20 mg PO TID@0500,1200,1700 09/09/18 06/07/24 Atorvastatin Calcium [Lipitor] 10 mg PO HS 10/06/19 06/07/24 estradioL [Estrace] 0.5 mg PO DAILY 10/06/19 06/07/24 Citalopram Hydrobromide [CeleXA] 40 mg PO DAILY 02/09/22 06/07/24 Fluticasone Nasal [place] [Flonase 1 spr EA NOSTRIL BID 02/04/23 06/07/24 Nasal [place]] Brexpiprazole [Rexulti] 0.25 mg PO HS 09/18/23 06/07/24 Cetirizine HCl [Zyrtec] 10 mg PO HS 02/03/24 06/07/24 Varenicline [Chantix Continuing 1 mg PO BID 05/08/24 06/07/24 Pack] Albuterol Inhaler [Ventolin Hfa 2 puff INHALATION RT-QID PRN 05/13/24 06/07/24 Inhaler] Ibuprofen [Motrin] 600 mg PO TID PRN 05/13/24 06/07/24 busPIRone HCl [Buspar] 10 mg PO BID 05/13/24 06/07/24 Previous Rx's Medication Instructions Recorded Docusate [Colace] 100 mg PO BID #20 capsule 05/21/24 Ibuprofen [Motrin] 600 mg PO Q6HR PRN #40 tab 05/21/24 Diclofenac Sodium Gel [Voltaren 1% 2 - 4 gm TOPICAL TID PRN 30 Days 06/07/24 Gel] #1 each HYDROcodone/APAP 10-325MG [[place] 1 tab PO TID PRN 30 Days #90 tab 06/07/24 10-325] HYDROcodone/APAP 10-325MG [[place] 1 tab PO TID PRN 30 Days #90 tab 06/07/24 10-325] tiZANidine HCL 2 mg PO HS 30 Days #30 tab 06/07/24 Allergies Allergy/AdvReac Type Severity Reaction Status Date / Time Penicillins Allergy Childhood Verified 07/02/24 10:07 Rash Review of Systems ROS Statement: Those systems with pertinent positive or pertinent negative responses have been documented in the HPI. ROS Other: All systems not noted in ROS Statement are negative. Past Medical History Past Medical History: Asthma, COPD, GERD/Reflux, Hyperlipidemia, Osteoarthritis (OA), Syncope, Thyroid Disorder Additional Past Medical History / Comment(s): kidney stones, hypoglycemia, chronic neck and L shoulder, lower back pain. Hx L facial and L ankle fxs, sinus problems, vertigo, falls in past due to syncope, low BP at times. Fusion of sacrum and iliac crest-per , spinal cord stimulator in cervical spine, diverticulosis/diverticulitis. 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 rectocele repair, d&c , colon resection 05/15/24 Past Anesthesia/Blood Transfusion Reactions: Previous Problems w/ Anesthesia Additional Past Anesthesia/Blood Transfusion Reaction / Comment(s): "Takes longer to wake up from anesthesia." - just once Past Psychological History: ADD/ADHD, Anxiety, Depression Smoking Status: Former smoker Past Alcohol Use History: None Reported Past Drug Use History: None Reported - Past Family History Mother History Unknown: Yes Family Medical History: Cancer Additional Family Medical History / Comment(s): lung Father Family Medical History: Asthma, COPD, Osteoarthritis (OA) Additional Family Medical History / Comment(s): Father at age 80 yrs. Sister(s) Family Medical History: Diabetes Mellitus, Thyroid Disorder General Exam Limitations: no limitations General appearance: alert, in no apparent distress Respiratory exam: Present: normal lung sounds bilaterally. Absent: respiratory distress, wheezes, rales, rhonchi, stridor Cardiovascular Exam: Present: regular rate, normal rhythm, normal heart sounds. Absent: systolic murmur, diastolic murmur, rubs, gallop, clicks GI/Abdominal exam: Present: soft, tenderness (RLQ), normal bowel sounds, other (midline healed surgical incision. ) Neurological exam: Present: alert, oriented X3, CN II-XII intact Skin exam: Present: warm, dry, intact, normal color. Absent: rash Course Vital Signs 07/02/24 07/02/24 07/02/24 10:05 11:01 11:49 Temperature 98.3 F 98.3 F Pulse Rate 67 70 62 Respiratory 20 18 18 Rate Blood Pressure 92/64 90/45 96/51 O2 Sat by Pulse 99 95 95 Oximetry 07/02/24 12:49 Temperature 98.0 F Pulse Rate 62 Respiratory 18 Rate Blood Pressure 111/62 O2 Sat by Pulse 95 Oximetry Medical Decision Making - Medical Decision Making Was pt. sent in by a medical professional or institution (, PA, BELL STAFF, urgent c are, hospital, or longterm...) When possible be specific @ -No Did you speak to anyone other than the patient for history (EMS, parent, family, police, friend...)? What history was obtained from this source @ -No Did you review nursing and triage notes (agree or disagree)? Why? @ -I reviewed and agree with nursing and triage notes Were old charts reviewed (outside hosp., previous admission, EMS record, old EKG, old radiological studies, urgent care reports/EKG's, longterm records)? Report findings @ -[Yes, I reviewed ER visit from 06-28-24. Patient seen for similar complaint. Workup negative. Patient discharged after symptomatic treatment. Differential Diagnosis (chest pain, altered mental status, abdominal pain women, abdominal pain men, vaginal bleeding, weakness, fever, dyspnea, syncope, headache, dizziness, GI bleed, back pain, seizure, CVA, palpatations, mental he alth, musculoskeletal)? @ -Differential Abdominal Pain Women:Appendicitis, Cholecystitis, divertic ulosis, ischemic bowel, pancreatitis, hepatitis, UTI, gastroenteritis, AAA, incarcerated hernia, bowel obstruction, constipation, inflammatory bowel, hepatitis, peptic ulcer disease, splenic infarction, perforated viscus, vulvitis, ovarian torsion, PID, kidney stone, placenta abruption, this is not meant to be an all-inclusive list EKG interpreted by me (3pts min.). @ -[None done X-rays interpreted by me (1pt min.). @ -[None done CT interpreted by me (1pt min.). @ -[CT abdomen pelvis showing no acute changes intra-abdominal reviewed postsurgical changes at the GE rectosigmoid junction. U/S interpreted by me (1pt. min.). @ -None done What testing was considered but not performed or refused? (CT, X-rays, U/S, labs)? Why? @ -None What meds were considered but not given or refused? Why? @ -None Did you discuss the management of the patient with other professionals (professionals i.e. , PA, BELL STAFF, lab, RT, psych nurse, bilingual social worker, professor of english, teacher, finance officer, manager case)? Give summary @ -No Was smoking cessation discussed for >3mins.? @ -No Was critical care preformed (if so, how long)? @ -No Were there social determinants of health that impacted care today? How? (Home lessness, low income, unemployed, alcoholism, drug addiction, transportation, low edu. Level, literacy, decrease access to med. care, fci, rehab)? @ -No Was there de-escalation of care discussed even if they declined (Discuss DNR or withdrawal of care, Hospice)? DNR status @ -No What co-morbidities impacted this encounter? (DM, HTN, Smoking, COPD, CAD, Cancer, CVA, ARF, Chemo, Hep., AIDS, mental health diagnosis, sleep apnea, morbid obesity)? @ -None Was patient admitted / discharged? Hospital course, mention meds given and route, prescriptions, significant lab abnormalities, going to OR and other pertinent info. @ -[Discharge. 59-year-old female presenting to the ER with a chief complaint of abdominal pain. Patient underwent colectomy by Dr. Alvarenga on 05/15/24. History and physical exam completed. Patient is mildly hypotensive at 92/64 upon arrival. Otherwise vitals within normal limits. Patient reports she is typically hypotensive. Patient in no signs of acute distress and nontoxic appearing. Exam remarkable for tenderness to palpation of the right lower quadrant. There is a healed midline incision with no evidence of infection. Normal bowel sounds with no rebound or guarding. Laboratory studies and CT scan will be obtained due to recent surgical intervention, patient is agreeable. Laboratory studies unremarkable. Urinalysis unremarkable. CT abdomen pelvis n egative for acute process. Patient received symptomatic treatment in ER. Patient reports a follow-up with Dr. Alvarenga on , 07/06/24. I advised her to attend that appointment. Patient stable for discharge at this time. Strict return parameters discussed. Patient discharged in stable condition with follow-up to PCP. Patient verbally expressed understanding and agreement with care plan. Case discussed with ED attending, Dr. Ruiz. Undiagnosed new problem with uncertain prognosis? @ -No Drug Therapy requiring intensive monitoring for toxicity (Heparin, Nitro, Insulin, Cardizem)? @ -No Were any procedures done? @ -No Diagnosis/symptom? @ -Abdominal pain Acute, or Chronic, or Acute on Chronic? @ -Acute Uncomplicated (without systemic symptoms) or Complicated (systemic symptoms)? @ -Uncomplicated Side effects of treatment? @ -No Exacerbation, Progression, or Severe Exacerbation? @ -No Poses a threat to life or bodily function? How? (Chest pain, [place], PR, pneumonia, PE, COPD, DKA, ARF, appy, cholecystitis, CVA, Diverticulitis, Homicidal, Suicidal, threat to staff... and all critical care pts) @ -No - Lab Data Result diagrams: 07/02/24 10:50 07/02/24 10:50 Lab Results 07/02/24 07/02/24 07/02/24 Range/Units 10:50 10:50 10:50 WBC 8.5 (3.8-10.6) k/uL RBC 3.89 (3.80-5.40) m/uL Hgb 11.8 (11.4-16.0) gm/dL Hct 35.1 (34.0-46.0) % MCV 90.2 (80.0-100.0) fL MCH 30.3 (25.0-35.0) pg MCHC 33.6 (31.0-37.0) g/dL RDW 13.2 (11.5-15.5) % Plt Count 233 (150-450) k/uL MPV 8.0 Neutrophils % 51 % Lymphocytes % 38 % Monocytes % 6 % Eosinophils % 3 % Basophils % 1 % Neutrophils # 4.3 (1.3-7.7) k/uL Lymphocytes # 3.2 (1.0-4.8) k/uL Monocytes # 0.5 (0-1.0) k/uL Eosinophils # 0.2 (0-0.7) k/uL Basophils # 0.1 (0-0.2) k/uL Sodium 139 (137-145) mmol/L Potassium 4.4 (3.5-5.1) mmol/L Chloride 104 (98-107) mmol/L Carbon Dioxide 28 (22-30) mmol/L Anion Gap 7 mmol/L BUN 8 (7-17) mg/dL Creatinine 0.72 (0.52-1.04) mg/dL Est GFR (CKD-EPI)AfAm >90 (>60 ml/min/1.73 sqM) Est GFR (CKD-EPI)NonAf >90 (>60 ml/min/1.73 sqM) Glucose 116 H (74-99) mg/dL Plasma Lactic Acid [place] (0.7-2.0) mmol/L Calcium 8.9 (8.4-10.2) mg/dL Total Bilirubin 0.3 (0.2-1.3) mg/dL AST 30 (14-36) U/L ALT 26 (4-34) U/L Alkaline Phosphatase 80 (38-126) U/L Total Protein 6.6 (6.3-8.2) g/dL Albumin 4.0 (3.5-5.0) g/dL Amylase 37 (30-110) U/L Lipase 102 (23-300) U/L Urine Color Colorless Urine Appearance Clear (Clear) Urine pH 6.0 (5.0-8.0) Ur Specific [place] 1.003 (1.001-1.035) Urine Protein Negative (Negative) Urine Glucose (UA) Negative (Negative) Urine Ketones Negative (Negative) Urine Blood Negative (Negative) Urine Nitrite Negative (Negative) Urine Bilirubin Negative (Negative) Urine Urobilinogen <2.0 (<2.0) mg/dL Ur Leukocyte Esterase Negative (Negative) 07/02/24 Range/Units 10:50 WBC (3.8-10.6) k/uL RBC (3.80-5.40) m/uL Hgb (11.4-16.0) gm/dL Hct (34.0-46.0) % MCV (80.0-100.0) fL MCH (25.0-35.0) pg MCHC (31.0-37.0) g/dL RDW (11.5-15.5) % Plt Count (150-450) k/uL MPV Neutrophils % % Lymphocytes % % Monocytes % % Eosinophils % % Basophils % % Neutrophils # (1.3-7.7) k/uL Lymphocytes # (1.0-4.8) k/uL Monocytes # (0-1.0) k/uL Eosinophils # (0-0.7) k/uL Basophils # (0-0.2) k/uL Sodium (137-145) mmol/L Potassium (3.5-5.1) mmol/L Chloride (98-107) mmol/L Carbon Dioxide (22-30) mmol/L Anion Gap mmol/L BUN (7-17) mg/dL Creatinine (0.52-1.04) mg/dL Est GFR (CKD-EPI)AfAm (>60 ml/min/1.73 sqM) Est GFR (CKD-EPI)NonAf (>60 ml/min/1.73 sqM) Glucose (74-99) mg/dL Plasma Lactic Acid [place] 1.8 (0.7-2.0) mmol/L Calcium (8.4-10.2) mg/dL Total Bilirubin (0.2-1.3) mg/dL AST (14-36) U/L ALT (4-34) U/L Alkaline Phosphatase (38-126) U/L Total Protein (6.3-8.2) g/dL Albumin (3.5-5.0) g/dL Amylase (30-110) U/L Lipase (23-300) U/L Urine Color Urine Appearance (Clear) Urine pH (5.0-8.0) Ur Specific [place] (1.001-1.035) Urine Protein (Negative) Urine Glucose (UA) (Negative) Urine Ketones (Negative) Urine Blood (Negative) Urine Nitrite (Negative) Urine Bilirubin (Negative) Urine Urobilinogen (<2.0) mg/dL Ur Leukocyte Esterase (Negative) - Radiology Data Radiology results: report reviewed, image reviewed Disposition Clinical Impression: Abdominal pain Disposition: HOME SELF-CARE Condition: Stable Instructions (If sedation given, give patient instructions): Abdominal Pain (ED) Additional Instructions: Follow-up with Dr. Alvarenga as scheduled on 07/06/24. Return to the ER for any new or worsening symptoms. Is patient prescribed a controlled substance at d/c from ED?: No Referrals: Ihsan Ding DO [Primary Care Provider] - 1-2 days Jeremiah Alvarenga MD [STAFF PHYSICIAN] - 1-2 days Time of Disposition: 12:29
[2024-07-02 11:33] LABS: Appearance,Urine Clear (Clear); Bilirubin,Urine Negative (Negative); Blood,Urine Negative (Negative); Color,Urine Colorless; Glucose,Urine (UA) Negative (Negative); Ketones,Urine Negative (Negative); Leukocyte Esterase,Urine Negative (Negative); Nitrite,Urine Negative (Negative); Protein,Urine Negative (Negative); Specific Gravity,Urine 1.003 (1.001-1.035); Urobilinogen,Urine <2.0 mg/dL (<2.0)
[2024-07-02 11:52] VITALS: PULSE 62
[2024-07-02] MEDS: HYDROmorphone 1 MG/ML 1 ML SYRINGE IVP STA ×3 (11:53→12:39)
--- NOTE | 2024-07-02 12:05 | CT ---
EXAMINATION TYPE: CT abdomen pelvis w con DATE OF EXAM: 07/02/2024 COMPARISON: 06/20/2024 CLINICAL INDICATION: Female, 59 years old with history of abd pain recent resection; PHH, RLQ pain, h /o bowel resection in april 2024 TECHNIQUE: Performed with Oral Contrast and with IV Contrast, patient injected with 100ml mL of Isovue 300. CT DLP: 978.[address] CTDI: mGy Automated exposure control for dose reduction was used. FINDINGS: The lung bases are clear. There are postsurgical changes at the GE junction and there is a small hiat al hernia. There is surgical absence of the gallbladder. There is no biliary ductal dilatation. There is no focal mass or organomegaly involving the liver, pancreas, spleen or adrenal glands. There is no solid renal mass or hydronephrosis and there is homogeneous contrast enhancement of the r enal parenchyma. The caliber the abdominal aorta is normal is no retroperitoneal adenopathy or hemorr yasmine. The bowel loops are normal in caliber and there is no evidence of dilatation or obstruction. No infla mmatory changes are identified in the bowel wall or mesentery. There are anastomotic sutures at the r ectosigmoid junction. There is no free intraperitoneal air or fluid. No pelvic mass, free fluid, abscess or adenopathy. There is mild abnormality in the midline anterior abdominal soft tissues indicating recent surgery. T here is a small incisional hernia containing fat. There are postsurgical changes of lumbar fusion. No focal osseous lesions seen. IMPRESSION: 1. No acute changes within the abdomen or pelvis. 2. Postsurgical changes at the GE junction and at the rectosigmoid junction. [facility], , 07/02/2024 12:02 PM
[2024-07-02 12:57] VITALS: BP 111/62; TEMP 98
== END 2024-07-02 12:57 | disposition home or self-care (01) ==
LOC: EC 10:03
DX: R10.31 Right lower quadrant pain (principal); Z87.891 Personal history of nicotine dependence; Z88.0 Allergy status to penicillin
CPT/HCPCS: 36415; 80053; 82150; 83605; 83690; 85025; 81003; 74177; 99284; 96374; 96376; 96375 ×2; 96361; J2405; J1171; J1885; Q9967

== ENCOUNTER 2024-07-11 15:30 | Emergency (ER) | payer MEDICARE, OTHER ==
--- NOTE | 2024-07-11 16:48 | ED ---
Abdominal Pain HPI - General Source: patient, RN notes reviewed Mode of arrival: wheelchair Limitations: no limitations - History of Present Illness MD Complaint: abdominal pain <Ishmael Mayorga - Last Filed: 07/11/24 16:46> - General Source: patient, family, RN notes reviewed, old records reviewed <Jude Ruiz - Last Filed: 07/11/24 22:26> - General Chief Complaint: Abdominal Pain Stated Complaint: RESECTION OF COLON RT SIDE PAIN Time Seen by Provider: 07/11/24 15:47 - History of Present Illness Initial Comments: Quick note: This is a 59-year-old female presenting with abdominal pain (10 out of 10) following a colonic resection on 06/18/2024. Patient states she had surgery under Dr. Dinesh Jones and was seen by him last week with an upcoming appointment in 2 days; states pain is too severe to wait until appointment to address the pain. Patient states she has been taking [place] and ibuprofen with minimal relief. Patient denies fever, chills, N/V/D, constipation. (Ishmael Mayorga) Patient is a 59-year-old female with past medical history remarkable for bowel resection done by Dr. Alvarenga in April of this year presents emergency department with intractable abdominal pain. He has more or less been constant since that time. Also has a history of GERD, COPD, asthma, hyperlipidemia. Has been on [place] and muscle relaxers at home without much improvement in pain. Was sent in by Dr. Alvarenga for further evaluation. Denies nausea, vomiting, diarrhea, constipation. No other acute complaints at this time. Patient presents as a quick note I evaluated her when she was placed in a room. (Jude Ruiz) - Related Data Home Medications Medication Instructions Recorded Confirmed Ezetimibe [Zetia] 10 mg PO HS 09/05/14 06/07/24 Levothyroxine Sodium [Synthroid] 25 mcg PO DAILY 03/13/16 06/07/24 Omeprazole 40 mg PO HS 11/13/16 06/07/24 clonazePAM [KlonoPIN] 0.5 mg PO HS 05/03/17 06/07/24 Methylphenidate HCl 20 mg PO TID@0500,1200,1700 09/09/18 06/07/24 Atorvastatin Calcium [Lipitor] 10 mg PO HS 10/06/19 06/07/24 estradioL [Estrace] 0.5 mg PO DAILY 10/06/19 06/07/24 Citalopram Hydrobromide [CeleXA] 40 mg PO DAILY 02/09/22 06/07/24 Fluticasone Nasal [place] [Flonase 1 spr EA NOSTRIL BID 02/04/23 06/07/24 Nasal [place]] Brexpiprazole [Rexulti] 0.25 mg PO HS 09/18/23 06/07/24 Cetirizine HCl [Zyrtec] 10 mg PO HS 02/03/24 06/07/24 Varenicline [Chantix Continuing 1 mg PO BID 05/08/24 06/07/24 Pack] Albuterol Inhaler [Ventolin Hfa 2 puff INHALATION RT-QID PRN 05/13/24 06/07/24 Inhaler] Ibuprofen [Motrin] 600 mg PO TID PRN 05/13/24 06/07/24 busPIRone HCl [Buspar] 10 mg PO BID 05/13/24 06/07/24 Previous Rx's Medication Instructions Recorded Docusate [Colace] 100 mg PO BID #20 capsule 05/21/24 Ibuprofen [Motrin] 600 mg PO Q6HR PRN #40 tab 05/21/24 Diclofenac Sodium Gel [Voltaren 1% 2 - 4 gm TOPICAL TID PRN 30 Days 06/07/24 Gel] #1 each HYDROcodone/APAP 10-325MG [[place] 1 tab PO TID PRN 30 Days #90 tab 06/07/24 10-325] HYDROcodone/APAP 10-325MG [[place] 1 tab PO TID PRN 30 Days #90 tab 06/07/24 10-325] tiZANidine HCL 2 mg PO HS 30 Days #30 tab 06/07/24 Ketorolac [Toradol] 10 mg PO Q6HR PRN 5 Days #30 tab 07/11/24 Allergies Allergy/AdvReac Type Severity Reaction Status Date / Time Penicillins Allergy Childhood Verified 07/11/24 16:12 Rash Review of Systems ROS Other: All systems not noted in ROS Statement are negative. <Ishmael Mayorga - Last Filed: 07/11/24 16:46> ROS Other: All systems not noted in ROS Statement are negative. <Jude Riuz - Last Filed: 07/11/24 22:26> ROS Statement: Those systems with pertinent positive or pertinent negative responses have been documented in the HPI. Review of Systems: CONST: Denies fever EYES: Denies blurry vision ENT: Denies nasal congestion C/V: Denies Chest pain RESP: Denies shortness of breath GI: Endorses abdominal pain : Denies dysuria SKIN: Denies rash. MSK: Denies joint pain. NEURO: Denies headache (Jude Ruiz) Past Medical History Past Medical History: Asthma, COPD, GERD/Reflux, Hyperlipidemia, Osteoarthritis (OA), Syncope, Thyroid Disorder Additional Past Medical History / Comment(s): kidney stones, hypoglycemia, chronic neck and L shoulder, lower back pain. Hx L facial and L ankle fxs, sinus problems, vertigo, falls in past due to syncope, low BP at times. Fusion of sacrum and iliac crest-per , spinal cord stimulator in cervical spine, divert iculosis/diverticulitis. 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 rectocele repair, d&c , colon resection 05/15/24 Past Anesthesia/Blood Transfusion Reactions: Previous Problems w/ Anesthesia Additional Past Anesthesia/Blood Transfusion Reaction / Comment(s): "Takes longer to wake up from anesthesia." - just once Past Psychological History: ADD/ADHD, Anxiety, Depression Smoking Status: Former smoker Past Alcohol Use History: None Reported Past Drug Use History: None Reported - Past Family History Mother History Unknown: Yes Family Medical History: Cancer Additional Family Medical History / Comment(s): lung Father Family Medical History: Asthma, COPD, Osteoarthritis (OA) Additional Family Medical History / Comment(s): Father at age 80 yrs. Sister(s) Family Medical History: Diabetes Mellitus, Thyroid Disorder <Ishmael Mayorga - Last Filed: 07/11/24 16:46> General Exam Limitations: no limitations <Ishmael Mayorga - Last Filed: 07/11/24 16:46> <Jude Ruiz - Last Filed: 07/11/24 22:26> - General Exam Comments Initial Comments: Visual Physical Exam Vital signs reviewed General: Well-appearing, nontoxic, no acute distress. Head: Normocephalic, atraumatic Eyes: PERRLA, EOMI ENT: Airway patent Chest: Nonlabored breathing Skin: No visual rash, normal skin tone Neuro: Alert and oriented 3 Musculoskeletal: No gross abnormalities (Ishmael Mayorga) General: Appears in no acute distress. HEAD: Normal with no signs of head trauma. EYES: PERRLA, EOMI, conjunctiva normal, no discharge. ENT: Hearing grossly intact, normal oropharynx. RESPIRATORY: Clear breath sounds bilaterally. No wheezes, rales, or rhonchi. C/V: Regular rate and rhythm. S1 and S2 auscultated, no edema, peripheral pulses 2+ and intact throughout ABD: Abdomen soft, nondistended. Tender palpation in the right mid and lower abdomen. No guarding or rebound tenderness. No peritoneal signs. EXT: No obvious deformity. SKIN: No rashes or lesions observed on exposed skin. NEURO: Oriented x 4. (Jude Ruiz) Course Vital Signs 07/11/24 07/11/24 07/11/24 16:12 20:57 21:22 Temperature 98.2 F 97.7 F Pulse Rate 62 56 L 54 L Respiratory 18 15 15 Rate Blood Pressure 102/68 94/57 118/55 O2 Sat by Pulse 97 96 97 Oximetry Medical Decision Making <Ishmael Mayorga - Last Filed: 07/11/24 16:46> - Lab Data Result diagrams: 07/11/24 19:40 07/11/24 19:40 <Jude Ruiz - Last Filed: 07/11/24 22:26> - Medical Decision Making I completed the quick note portion of this chart signed CLARIBEL Farrar (Ishmael Mayorga) Was pt. sent in by a medical professional or institution (MARLO Maldonado, NET DEVELOPER, urgent care, hospital, or alf...) When possible be specific @ -No Did you speak to anyone other than the patient for history (EMS, parent, family, police, friend...)? What history was obtained from this source @ -No Did you review nursing and triage notes (agree or disagree)? Why? @ -I reviewed and agree with nursing and triage notes Were old charts reviewed (outside hosp., previous admission, EMS record, old EKG, old radiological studies, urgent care reports/EKG's, alf records)? Report findings @ -No old charts were reviewed Differential Diagnosis (chest pain, altered mental status, abdominal pain women, abdominal pain men, vaginal bleeding, weakness, fever, dyspnea, syncope, headache, dizziness, GI bleed, back pain, seizure, CVA, palpatations, mental he alth, musculoskeletal)? @ -Differential Abdominal Pain Women: Appendicitis, Cholecystitis, diverticulosis, ischemic bowel, pancreatitis, hepatitis, UTI, gastroenteritis, AAA, incarcerated hernia, bowel obstruction, constipation, inflammatory bowel, hepatitis, peptic ulcer disease, splenic infarction, perforated viscus, vulvitis, ovarian torsion, PID, kidney stone, placenta abruption, this is not meant to be an all-inclusive list EKG interpreted by me (3pts min.). @ -None done X-rays interpreted by me (1pt min.). @ -KUB x-ray reveals no obvious acute intra-abdominal process CT interpreted by me (1pt min.). @ -CT abdomen pelvis reveals no obvious acute intra-abdominal process. U/S interpreted by me (1pt. min.). @ -None done What testing was considered but not performed or refused? (CT, X-rays, U/S, labs)? Why? @ -None What meds were considered but not given or refused? Why? @ -None Did you discuss the management of the patient with other professionals (professionals i.e. , PA, NET DEVELOPER, lab, RT, psych nurse, protective services social worker, groover and turner, teacher, credit compliance officer, case resolution specialist)? Give summary @ -Discussed the case with Dr. Alvarenga who is in agreement with plan for discharge after receiving multiple fluid boluses as well as a prescription for oral Toradol. Recommend follow-up with him in the office this week. Was smoking cessation discussed for >3mins.? @ -No Was critical care preformed (if so, how long)? @ -No Were there social determinants of health that impacted care today? How? (Homelessness, low income, unemployed, alcoholism, drug addiction, transportation, low edu. Level, literacy, decrease access to med. care, custodial, rehab)? @ -No Was there de-escalation of care discussed even if they declined (Discuss DNR or withdrawal of care, Hospice)? DNR status @ -No What co-morbidities impacted this encounter? (DM, HTN, Smoking, COPD, CAD, Cancer, CVA, ARF, Chemo, Hep., AIDS, mental health diagnosis, sleep apnea, morbid obesity)? @ -Chronic postop abdominal pain Was patient admitted / discharged? Hospital course, mention meds given and route, prescriptions, significant lab abnormalities, going to OR and other pertinent info. @ -Patient presents emergency department complaining of right sided abdominal pain. Has a history of colon resection on the right side. Pain has been persistent since April when she had the surgery. Presents for intractable pain. Workup started in triage and labs are unremarkable. Lactic acid within normal limits. Leukocytosis that is very minimal at 11.3. KUB x-ray unremarkable. We will obtain CT abdomen pelvis and provide patient with multiple fluid boluses as well as a dose of IV Dilaudid. Patient in agreement this plan. CT imaging showed no obvious acute intra-abdominal process. I discussed the case with her surgeon Dr. Alvarenga who is in agreement with plan for discharge after receiving multiple fluid boluses as well as a prescription for oral Toradol. Recommend follow-up with him in the office this week. Patient was in agreement this plan. Strict return precautions discussed. I will provide the patient with a prescription for ketorolac. I instructed the patient to follow up with their PCP in the next 1-3 days.. I explained that the patient should return to the emergency department if they experience any worsening symptoms. Strict return precautions were discussed with the patient. The patient expressed understanding of these instructions. I answered all questions that the patient had. The patient was discharged home in good condition with their prescriptions and follow up information. Undiagnosed new problem with uncertain prognosis? @ -No Drug Therapy requiring intensive monitoring for toxicity (Heparin, Nitro, Insulin, Cardizem)? @ -No Were any procedures done? @ -No Diagnosis/symptom? @ -Abdominal pain of unknown etiology Acute, or Chronic, or Acute on Chronic? @ -Acute on chronic Uncomplicated (without systemic symptoms) or Complicated (systemic symptoms)? @ -Uncomplicated Side effects of treatment? @ -No Exacerbation, Progression, or Severe Exacerbation? @ -No Poses a threat to life or bodily function? How? (Chest pain, USA, OR, pneumonia, PE, COPD, DKA, ARF, appy, cholecystitis, CVA, Diverticulitis, Homicidal, Suicidal, threat to staff... and all critical care pts) @ -Unlikely (Jude Ruiz) - Lab Data Lab Results 07/11/24 07/11/24 07/11/24 Range/Units 19:40 19:40 19:40 WBC 11.3 H (3.8-10.6) k/uL RBC 4.11 (3.80-5.40) m/uL Hgb 12.0 (11.4-16.0) gm/dL Hct 36.6 (34.0-46.0) % MCV 88.9 (80.0-100.0) fL MCH 29.2 (25.0-35.0) pg MCHC 32.9 (31.0-37.0) g/dL RDW 13.1 (11.5-15.5) % Plt Count 260 (150-450) k/uL MPV 8.0 Neutrophils % 55 % Lymphocytes % 36 % Monocytes % 4 % Eosinophils % 3 % Basophils % 0 % Neutrophils # 6.2 (1.3-7.7) k/uL Lymphocytes # 4.0 (1.0-4.8) k/uL Monocytes # 0.5 (0-1.0) k/uL Eosinophils # 0.3 (0-0.7) k/uL Basophils # 0.0 (0-0.2) k/uL PT 9.9 L (10.0-12.5) sec INR 0.9 (<1.2) APTT 24.2 (22.0-30.0) sec Sodium 135 L (137-145) mmol/L Potassium 4.4 (3.5-5.1) mmol/L Chloride 103 (98-107) mmol/L Carbon Dioxide 23 (22-30) mmol/L Anion Gap 9 mmol/L BUN 7 (7-17) mg/dL Creatinine 0.72 (0.52-1.04) mg/dL Est GFR (CKD-EPI)AfAm >90 (>60 ml/min/1.73 sqM) Est GFR (CKD-EPI)NonAf >90 (>60 ml/min/1.73 sqM) Glucose 94 (74-99) mg/dL Plasma Lactic Acid [place] (0.7-2.0) mmol/L Calcium 8.9 (8.4-10.2) mg/dL Total Bilirubin 0.4 (0.2-1.3) mg/dL AST 20 (14-36) U/L ALT 15 (4-34) U/L Alkaline Phosphatase 82 (38-126) U/L Total Protein 7.2 (6.3-8.2) g/dL Albumin 4.5 (3.5-5.0) g/dL Amylase 35 (30-110) U/L Lipase 54 (23-300) U/L 07/11/24 Range/Units 19:40 WBC (3.8-10.6) k/uL RBC (3.80-5.40) m/uL Hgb (11.4-16.0) gm/dL Hct (34.0-46.0) % MCV (80.0-100.0) fL MCH (25.0-35.0) pg MCHC (31.0-37.0) g/dL RDW (11.5-15.5) % Plt Count (150-450) k/uL MPV Neutrophils % % Lymphocytes % % Monocytes % % Eosinophils % % Basophils % % Neutrophils # (1.3-7.7) k/uL Lymphocytes # (1.0-4.8) k/uL Monocytes # (0-1.0) k/uL Eosinophils # (0-0.7) k/uL Basophils # (0-0.2) k/uL PT (10.0-12.5) sec INR (<1.2) APTT (22.0-30.0) sec Sodium (137-145) mmol/L Potassium (3.5-5.1) mmol/L Chloride (98-107) mmol/L Carbon Dioxide (22-30) mmol/L Anion Gap mmol/L BUN (7-17) mg/dL Creatinine (0.52-1.04) mg/dL Est GFR (CKD-EPI)AfAm (>60 ml/min/1.73 sqM) Est GFR (CKD-EPI)NonAf (>60 ml/min/1.73 sqM) Glucose (74-99) mg/dL Plasma Lactic Acid [place] 1.1 (0.7-2.0) mmol/L Calcium (8.4-10.2) mg/dL Total Bilirubin (0.2-1.3) mg/dL AST (14-36) U/L ALT (4-34) U/L Alkaline Phosphatase (38-126) U/L Total Protein (6.3-8.2) g/dL Albumin (3.5-5.0) g/dL Amylase (30-110) U/L Lipase (23-300) U/L Disposition <Ishmael Mayorga - Last Filed: 07/11/24 16:46> Is patient prescribed a controlled substance at d/c from ED?: No Time of Disposition: 22:25 <Jude Ruiz - Last Filed: 07/11/24 22:26> Clinical Impression: Abdominal pain of unknown etiology Disposition: HOME SELF-CARE Condition: Good Instructions (If sedation given, give patient instructions): Abdominal Pain (ED) Additional Instructions: Follow-up with her surgeon Dr. Alvarenga in the next 1 to 3 days. Return to the emergency department if any worsening symptoms. Prescriptions: Ketorolac [Toradol] 10 mg PO Q6HR PRN 5 Days #30 tab PRN Reason: Pain Referrals: Ihsan Ding DO [Primary Care Provider] - 1-2 days Jeremiah Alvarenga MD [STAFF PHYSICIAN] - 1-2 days
--- NOTE | 2024-07-11 17:16 | XR ---
EXAMINATION TYPE: XR KUB DATE OF EXAM: 07/11/2024 5:00 PM COMPARISON: 09/17/2016. CLINICAL INDICATION: Female, 59 years old with history of abdominal pain; [facility] TECHNIQUE: One radiographic view of the abdomen was obtained. FINDINGS: The bowel gas pattern is nonspecific without dilated loops of small or large bowel. . Fecal material and gas are demonstrated throughout the colon and rectum. There is no evidence for organomegaly or pneumoperitoneum. The osseous structures are intact. No ab normal calcifications are present. Fixation hardware in the spine is intact. Right sacroiliac joint f ixation is intact. Battery pack with leads extending superiorly. IMPRESSION: Nonspecific bowel gas pattern without radiographic evidence for acute process. [facility], , 07/11/2024 5:14 PM
[2024-07-11 19:49] LABS: Basophils % (A) 0 %; Eosinophils # (A) 0.3 k/uL (0-0.7); Eosinophils % (A) 3 %; HCT 36.6 % (34.0-46.0); Lymphocytes % (A) 36 %; MCH 29.2 pg (25.0-35.0); MCHC 32.9 g/dL (31.0-37.0); MCV 88.9 fL (80.0-100.0); Monocytes # (A) 0.5 k/uL (0-1.0); Monocytes % (A) 4 %; Neutrophils # (A) 6.2 k/uL (1.3-7.7); Neutrophils % (A) 55 %; Platelet Count 260 k/uL (150-450); RBC 4.11 m/uL (3.80-5.40); RDW 13.1 % (11.5-15.5); WBC 11.3 k/uL (3.8-10.6)
[2024-07-11 19:57] LABS: INR 0.9 (<1.2); Partial Thromboplastin Time 24.2 sec (22.0-30.0); Prothrombin Time 9.9 sec (10.0-12.5)
[2024-07-11 20:00] LABS: ALT 15 U/L (4-34); AST 20 U/L (14-36); African American GFR (CKD) >90 (>60 ml/min/1.73 sqM); Albumin 4.5 g/dL (3.5-5.0); Alkaline Phosphatase 82 U/L (38-126); Amylase 35 U/L (30-110); Anion Gap 9 mmol/L; Blood Urea Nitrogen 7 mg/dL (7-17); Calcium 8.9 mg/dL (8.4-10.2); Carbon Dioxide 23 mmol/L (22-30); Chloride 103 mmol/L (98-107); Glucose 94 mg/dL (74-99); Lipase 54 U/L (23-300); Non-African American GFR(CKD) >90 (>60 ml/min/1.73 sqM); Potassium 4.4 mmol/L (3.5-5.1); Sodium 135 mmol/L (137-145); Total Bilirubin 0.4 mg/dL (0.2-1.3); Total Protein 7.2 g/dL (6.3-8.2)
[2024-07-11] MEDS: SODIUM CHLORIDE 0.9% 1,000 ML IV STA ×3 (20:57→21:39)
[2024-07-11 20:59] VITALS: RESP 15; TEMP 97.7
--- NOTE | 2024-07-11 21:06 | CT ---
EXAMINATION TYPE: CT abdomen pelvis w con DATE OF EXAM: 07/11/2024 8:30 PM COMPARISON: 07/02/2024 CLINICAL INDICATION: Female, 59 years old with history of abdominal pain; Colon resection 05/15 - pt c /o constant pain on R side of abdomen. States sent by Dr Alvarenga. TECHNIQUE: Axial CT abdomen pelvis w con;Sagittal and coronal reformats were created on a separate w orkstation. Contrast used:100 ml mL of Isovue 300 with IV Contrast, (none if empty) Oral contrast used: without Oral Contrast (none if empty) CT DLP: 990.1 mGycm, Automated exposure control for dose reduction was used. FINDINGS: LOWER CHEST: Unremarkable ABDOMEN LIVER: Unremarkable GALLBLADDER AND BILE DUCTS: The gallbladder is surgically absent. PANCREAS: Unremarkable. SPLEEN: Unremarkable. ADRENAL GLANDS: Unremarkable. KIDNEYS AND URETERS: No evidence of hydronephrosis or renal calculus. The ureters are unremarkable. PELVIS BLADDER: No evidence for wall thickening or mass given limitations of exam. REPRODUCTIVE: The uterus is surgically absent. ABDOMEN & PELVIS STOMACH AND BOWEL: No evidence of bowel obstruction. Moderate amount stool is in the cecum. Partial c olectomy changes throughout the colon. Suture seen in the sigmoid rectal junction. PERITONEUM/RETROPERITONEUM: No evidence of pneumoperitoneum or free fluid. VASCULATURE: No evidence of aortic aneurysm. MUSCULOSKELETAL: No acute osseous abnormalities, fixation hardware in the lower spine appears intact. There are stimulator device in the right back with leads coursing superiorly. LYMPH NODES: No gross evidence for lymphadenopathy. SOFT TISSUE/ABDOMINAL WALL: Unremarkable IMPRESSION: Postsurgical changes to: No evidence for obstruction or acute intra-abdominal process. [facility], , 07/11/2024 9:03 PM
[2024-07-11] MEDS: HYDROmorphone 1 MG/ML 1 ML SYRINGE IVP STA (21:23)
[2024-07-11] MEDS: KETOROLAC 15 MG/ML 1 ML VIAL IVP STA (21:42)
[2024-07-11] MEDS: HYDROmorphone 0.5 MG/0.5 ML SYRINGE IVP STA (22:34)
[2024-07-11 22:39] VITALS: BP 122/73; PULSE 63
== END 2024-07-11 22:40 | disposition home or self-care (01) ==
LOC: EC 15:30
DX: R10.31 Right lower quadrant pain (principal); Z87.891 Personal history of nicotine dependence; Z88.0 Allergy status to penicillin
CPT/HCPCS: 36415; 80053; 82150; 83605; 83690; 85025; 85610; 85730; 74018; 74177; 99284; 96374; 96375; 96376; 96361 ×2; J1171 ×2; J1885; Q9967

== ENCOUNTER 2024-07-23 14:59 | Emergency (ER) | payer MEDICARE, OTHER ==
[2024-07-23 15:19] VITALS: RESP 18; TEMP 98.6
--- NOTE | 2024-07-23 15:58 | ED ---
Abdominal Pain HPI - General Source: patient, RN notes reviewed Mode of arrival: wheelchair Limitations: no limitations <Faustino Bertrand - Last Filed: 07/23/24 15:56> - General Source: patient, RN notes reviewed, old records reviewed Mode of arrival: wheelchair Limitations: no limitations - History of Present Illness MD Complaint: abdominal pain, other (Postoperative pain) Location: diffuse Radiation: none Migration to: no migration Severity: moderate Quality: stabbing, aching Consistency: constant Improves With: nothing Worsens With: nothing Associated Symptoms: nausea <Curt Naranjo - Last Filed: 07/30/24 18:19> - General Chief Complaint: Abdominal Pain Stated Complaint: Abdominal Pain Time Seen by Provider: 07/23/24 15:18 - History of Present Illness Initial Comments: 59-year-old female presents emergency department chief complaint abdominal discomfort, fever. Patient states she has pain right at the site of her bowel resection by Dr. Alvarenga for diverticulitis. Patient states she is also having diarrhea. Patient has been seen in the emergency room several times for similar complaints. Patient CT recently. Patient denies any fevers patient did have postsurgical follow-up. Denies chest pain shortness of breath no dysuria no vomiting. (Faustino Bertrand) This is a 5-year-old female to ER for abdominal pain and fever. Patient has history of postoperative symptoms with multiple recent CT scans and evaluations in this emergency department. (Curt Naranjo) - Related Data Home Medications Medication Instructions Recorded Confirmed Ezetimibe [Zetia] 10 mg PO HS 09/05/14 07/26/24 Levothyroxine Sodium [Synthroid] 25 mcg PO DAILY 03/13/16 07/26/24 Omeprazole 40 mg PO HS 11/13/16 07/26/24 clonazePAM [KlonoPIN] 0.5 mg PO HS 05/03/17 07/26/24 Methylphenidate HCl 20 mg PO TID@0500,1200,1700 09/09/18 07/26/24 Atorvastatin Calcium [Lipitor] 10 mg PO HS 10/06/19 07/26/24 estradioL [Estrace] 0.5 mg PO DAILY 10/06/19 07/26/24 Citalopram Hydrobromide [CeleXA] 40 mg PO DAILY 02/09/22 07/26/24 Fluticasone Nasal [place] [Flonase 1 spr EA NOSTRIL BID 02/04/23 07/26/24 Nasal [place]] Brexpiprazole [Rexulti] 0.25 mg PO HS 09/18/23 07/26/24 Cetirizine HCl [Zyrtec] 10 mg PO HS 02/03/24 07/26/24 Varenicline [Chantix Continuing 1 mg PO BID 05/08/24 07/26/24 Pack] Albuterol Inhaler [Ventolin Hfa 2 puff INHALATION RT-QID PRN 05/13/24 07/26/24 Inhaler] busPIRone HCl [Buspar] 10 mg PO BID 05/13/24 07/26/24 Previous Rx's Medication Instructions Recorded Docusate [Colace] 100 mg PO BID #20 capsule 05/21/24 Ibuprofen [Motrin] 600 mg PO Q6HR PRN #40 tab 05/21/24 Diclofenac Sodium Gel [Voltaren 1% 2 - 4 gm TOPICAL TID PRN 30 Days 06/07/24 Gel] #1 each HYDROcodone/APAP 10-325MG [[place] 1 tab PO TID PRN 30 Days #90 tab 06/07/24 10-325] tiZANidine HCL 2 mg PO HS 30 Days #30 tab 06/07/24 diazePAM [Valium] 5 mg PO DAILY PRN 1 Days #2 tab 07/26/24 Allergies Allergy/AdvReac Type Severity Reaction Status Date / Time Penicillins Allergy Childhood Verified 07/26/24 08:21 Rash Review of Systems ROS Other: All systems not noted in ROS Statement are negative. <Faustino Bertrand - Last Filed: 07/23/24 15:56> ROS Other: All systems not noted in ROS Statement are negative. <Curt Naranjo - Last Filed: 07/30/24 18:19> ROS Statement: Those systems with pertinent positive or pertinent negative responses have been documented in the HPI. Past Medical History Past Medical History: Asthma, COPD, GERD/Reflux, Hyperlipidemia, Osteoarthritis (OA), Syncope, Thyroid Disorder Additional Past Medical History / Comment(s): kidney stones, hypoglycemia, chronic neck and L shoulder, lower back pain. Hx L facial and L ankle fxs, sinus problems, vertigo, falls in past due to syncope, low BP at times. Fusion of sacrum and iliac crest-per , spinal cord stimulator in cervical spine, diverticulosis/diverticulitis. 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 rectocele repair, d&c , colon resection 05/15/24 Past Anesthesia/Blood Transfusion Reactions: Previous Problems w/ Anesthesia Additional Past Anesthesia/Blood Transfusion Reaction / Comment(s): "Takes longer to wake up from anesthesia." - just once Past Psychological History: ADD/ADHD, Anxiety, Depression Smoking Status: Former smoker Past Alcohol Use History: None Reported Past Drug Use History: None Reported - Past Family History Mother History Unknown: Yes Family Medical History: Cancer Additional Family Medical History / Comment(s): lung Father Family Medical History: Asthma, COPD, Osteoarthritis (OA) Additional Family Medical History / Comment(s): Father at age 80 yrs. Sister(s) Family Medical History: Diabetes Mellitus, Thyroid Disorder <Faustino Bertrand - Last Filed: 07/23/24 15:56> General Exam Limitations: no limitations General appearance: alert, in no apparent distress Head exam: Present: atraumatic, normocephalic, normal inspection Eye exam: Present: normal appearance, PERRL, EOMI. Absent: scleral icterus, c onjunctival injection, periorbital swelling ENT exam: Present: normal exam, normal oropharynx, mucous membranes moist Neck exam: Present: normal inspection, full ROM. Absent: tenderness, meningismus, lymphadenopathy Respiratory exam: Present: normal lung sounds bilaterally. Absent: respiratory distress, wheezes, rales, rhonchi, stridor Cardiovascular Exam: Present: regular rate, normal rhythm, normal heart sounds. Absent: systolic murmur, diastolic murmur, rubs, gallop, clicks GI/Abdominal exam: Present: soft, tenderness, normal bowel sounds. Absent: distended, guarding, rebound, rigid Back exam: Absent: CVA tenderness (R), CVA tenderness (L) <RemediosFaustino hester - Last Filed: 07/23/24 15:56> General appearance: alert, in no apparent distress Head exam: Present: atraumatic, normocephalic, normal inspection Eye exam: Present: normal appearance, PERRL, EOMI. Absent: scleral icterus, conjunctival injection, periorbital swelling ENT exam: Present: normal exam, mucous membranes moist Neck exam: Present: normal inspection. Absent: tenderness, meningismus, lymphadenopathy Respiratory exam: Present: normal lung sounds bilaterally. Absent: respiratory distress, wheezes, rales, rhonchi, stridor Cardiovascular Exam: Present: regular rate, normal rhythm, normal heart sounds. Absent: systolic murmur, diastolic murmur, rubs, gallop, clicks GI/Abdominal exam: Present: soft, normal bowel sounds. Absent: distended, tenderness, guarding, rebound, rigid Extremities exam: Present: normal inspection, full ROM, normal capillary refill. Absent: tenderness, pedal edema, joint swelling, calf tenderness Back exam: Present: normal inspection Neurological exam: Present: alert, oriented X3, CN II-XII intact Psychiatric exam: Present: normal affect, normal mood Skin exam: Present: warm, dry, intact, normal color. Absent: rash <Curt Naranjo - Last Filed: 07/30/24 18:19> Course <Curt Naranjo - Last Filed: 07/30/24 18:19> Vital Signs 07/23/24 07/23/24 07/23/24 15:17 17:22 18:36 Temperature 98.6 F Pulse Rate 78 64 64 Respiratory 18 18 18 Rate Blood Pressure 100/54 109/64 111/73 O2 Sat by Pulse 97 96 97 Oximetry - Reevaluation(s) Reevaluation #1: Medical record is reviewed (Curt Naranjo) Reevaluation #2: Patient symptoms improved here in the ER (Curt Naranjo) Reevaluation #3: Patient informed of results and questions answered (Curt Naranjo) Reevaluation #4: 07/30/24 18:07Was pt. sent in by a medical professional or institution (MARLO Maldonado, [employer], urgent care, hospital, or correction...) When possible be specific @ -no Did you speak to anyone other than the patient for history (EMS, parent, family, police, friend...)? What history was obtained from this source @ -no Did you review nursing and triage notes (agree or disagree)? Why? @ -agree Are old charts reviewed (outside hosp., previous admission, EMS record, old EKG, old radiological studies, urgent care reports/EKG's, correction records)? Report findings @ -yes Differential Diagnosis (chest pain, altered mental status, abdominal pain women, abdominal pain men, vaginal bleeding, weakness, fever, dyspnea, syncope, head ache, dizziness, GI bleed, back pain, seizure, CVA, palpatations, mental health, musculoskeletal)? @ -prior EKG interpreted by me (3pts min.). @ - no X-rays interpreted by me (1pt min.). @ -yes negative for acute disease CT interpreted by me (1pt min.). @ -no U/S interpreted by me (1pt. min.). @ -no What testing was considered but not performed or refused? (CT, X-rays, U/S, labs)? Why? @ -none What meds were considered but not given or refused? Why? @ -none Did you discuss the management of the patient with other professionals (professionals i.e. MARLO Maldonado, [employer], lab, RT, psych nurse, social media senior associate, stone setter metal optical frames, teacher, bsa/aml compliance officer, dependency case manager)? Give summary @ -no Was smoking cessation discussed for >3mins.? @ -no Was critical care preformed (if so, how long)? @ -no Were there social determinants of health that impacted care today? How? (Homelessness, low income, unemployed, alcoholism, drug addiction, transportation, low edu. Level, literacy, decrease access to med. care, longterm, rehab)? @ -none Was there de-escalation of care discussed even if they declined (Discuss DNR or withdrawal of care, Hospice)? DNR status @ -no What co-morbidities impacted this encounter? (DM, HTN, Smoking, COPD, CAD, Cancer, CVA, ARF, Chemo, Hep., AIDS, mental health diagnosis, sleep apnea, mor bid obesity)? @ -none Was patient admitted / discharged? Hospital course, mention meds given and ro [place], prescriptions, significant lab abnormalities, going to OR and other pertinent info. @ - 59 female to ER for abdominal pain. Normal x-rays and lab testing here in the ER patient feels well and can be discharged home Discharge Undiagnosed new problem with uncertain prognosis? @ -no Drug Therapy requiring intensive monitoring for toxicity (Heparin, Nitro, Insulin, Cardizem)? @ -no Were any procedures done? @ -no Diagnosis/symptom? @ -Abdominal pain Acute, or Chronic, or Acute on Chronic? @ -Acute Uncomplicated (without systemic symptoms) or Complicated (systemic symptoms)? @ -Complicated Side effects of treatment? @ -no Exacerbation, Progression, or Severe Exacerbation? @ -exacerbation Poses a threat to life or bodily function? How? (Chest pain, USA, PR, pneumonia, PE, COPD, DKA, ARF, appy, cholecystitis, CVA, Diverticulitis, Homicidal, Suicidal, threat to staff... and all critical care pts) @ -no (Curt Naranjo) Reevaluation #5: Differential Abdominal Pain Women: Appendicitis, Cholecystitis, diverticulosis, ischemic bowel, pancreatitis, hepatitis, UTI, gastroenteritis, AAA, incarcerated hernia, bowel obstruction, constipation, inflammatory bowel, hepatitis, peptic ulcer disease, splenic infarction, perforated viscus, vulvitis, ovarian torsion, PID, kidney stone, placenta abruption, this is not meant to be an all-inclusive list (Curt Naranjo) Medical Decision Making - Lab Data Result diagrams: 07/23/24 16:41 07/23/24 16:41 - Radiology Data Radiology results: report reviewed (X-ray chest and KUB negative for acute disease), image reviewed <Curt Naranjo - Last Filed: 07/30/24 18:19> - Medical Decision Making 59 female to ER for abdominal pain. Normal x-rays and lab testing here in the ER patient feels well and can be discharged home (Curt Naranjo) - Lab Data Lab Results 07/23/24 07/23/24 07/23/24 Range/Units 16:41 16:41 16:41 WBC 12.1 H (3.8-10.6) k/uL RBC 4.08 (3.80-5.40) m/uL Hgb 11.8 (11.4-16.0) gm/dL Hct 35.9 (34.0-46.0) % MCV 88.1 (80.0-100.0) fL MCH 29.1 (25.0-35.0) pg MCHC 33.0 (31.0-37.0) g/dL RDW 13.0 (11.5-15.5) % Plt Count 250 (150-450) k/uL MPV 8.0 Neutrophils % 66 % Lymphocytes % 24 % Monocytes % 5 % Eosinophils % 2 % Basophils % 0 % Neutrophils # 7.9 H (1.3-7.7) k/uL Lymphocytes # 2.9 (1.0-4.8) k/uL Monocytes # 0.7 (0-1.0) k/uL Eosinophils # 0.3 (0-0.7) k/uL Basophils # 0.0 (0-0.2) k/uL Sodium 137 (137-145) mmol/L Potassium 4.4 (3.5-5.1) mmol/L Chloride 102 (98-107) mmol/L Carbon Dioxide 25 (22-30) mmol/L Anion Gap 10 mmol/L BUN 9 (7-17) mg/dL Creatinine 0.83 (0.52-1.04) mg/dL Est GFR (CKD-EPI)AfAm 89 (>60 ml/min/1.73 sqM) Est GFR (CKD-EPI)NonAf 77 (>60 ml/min/1.73 sqM) Glucose 96 (74-99) mg/dL Plasma Lactic Acid [place] 1.0 (0.7-2.0) mmol/L Calcium 9.0 (8.4-10.2) mg/dL Total Bilirubin 0.3 (0.2-1.3) mg/dL AST 24 (14-36) U/L ALT 27 (4-34) U/L Alkaline Phosphatase 89 (38-126) U/L Total Protein 7.1 (6.3-8.2) g/dL Albumin 4.5 (3.5-5.0) g/dL Lipase 101 (23-300) U/L Urine Color Urine Appearance (Clear) Urine pH (5.0-8.0) Ur Specific [place] (1.001-1.035) Urine Protein (Negative) Urine Glucose (UA) (Negative) Urine Ketones (Negative) Urine Blood (Negative) Urine Nitrite (Negative) Urine Bilirubin (Negative) Urine Urobilinogen (<2.0) mg/dL Ur Leukocyte Esterase (Negative) Urine RBC (0-5) /hpf Urine WBC (0-5) /hpf Ur Squamous Epith Cells (0-4) /hpf Urine Bacteria (None) /hpf 07/23/24 Range/Units 17:15 WBC (3.8-10.6) k/uL RBC (3.80-5.40) m/uL Hgb (11.4-16.0) gm/dL Hct (34.0-46.0) % MCV (80.0-100.0) fL MCH (25.0-35.0) pg MCHC (31.0-37.0) g/dL RDW (11.5-15.5) % Plt Count (150-450) k/uL MPV Neutrophils % % Lymphocytes % % Monocytes % % Eosinophils % % Basophils % % Neutrophils # (1.3-7.7) k/uL Lymphocytes # (1.0-4.8) k/uL Monocytes # (0-1.0) k/uL Eosinophils # (0-0.7) k/uL Basophils # (0-0.2) k/uL Sodium (137-145) mmol/L Potassium (3.5-5.1) mmol/L Chloride (98-107) mmol/L Carbon Dioxide (22-30) mmol/L Anion Gap mmol/L BUN (7-17) mg/dL Creatinine (0.52-1.04) mg/dL Est GFR (CKD-EPI)AfAm (>60 ml/min/1.73 sqM) Est GFR (CKD-EPI)NonAf (>60 ml/min/1.73 sqM) Glucose (74-99) mg/dL Plasma Lactic Acid [place] (0.7-2.0) mmol/L Calcium (8.4-10.2) mg/dL Total Bilirubin (0.2-1.3) mg/dL AST (14-36) U/L ALT (4-34) U/L Alkaline Phosphatase (38-126) U/L Total Protein (6.3-8.2) g/dL Albumin (3.5-5.0) g/dL Lipase (23-300) U/L Urine Color Colorless Urine Appearance Clear (Clear) Urine pH 6.0 (5.0-8.0) Ur Specific [place] 1.004 (1.001-1.035) Urine Protein Negative (Negative) Urine Glucose (UA) Negative (Negative) Urine Ketones Negative (Negative) Urine Blood Negative (Negative) Urine Nitrite Negative (Negative) Urine Bilirubin Negative (Negative) Urine Urobilinogen <2.0 (<2.0) mg/dL Ur Leukocyte Esterase Trace H (Negative) Urine RBC <1 (0-5) /hpf Urine WBC 6 H (0-5) /hpf Ur Squamous Epith Cells <1 (0-4) /hpf Urine Bacteria Moderate H (None) /hpf Disposition <Faustino Bertrand - Last Filed: 07/23/24 15:56> Is patient prescribed a controlled substance at d/c from ED?: No Time of Disposition: 18:00 <Curt Naranjo - Last Filed: 07/30/24 18:19> Clinical Impression: Abdominal pain Disposition: HOME SELF-CARE Condition: Fair Instructions (If sedation given, give patient instructions): Abdominal Pain (ED) Referrals: Ihsan Ding DO [Primary Care Provider] - 1-2 days Jeremiah Alvarenga MD [STAFF PHYSICIAN] - 1-2 days
[2024-07-23 16:50] LABS: Basophils % (A) 0 %; Eosinophils # (A) 0.3 k/uL (0-0.7); Eosinophils % (A) 2 %; HCT 35.9 % (34.0-46.0); HGB 11.8 gm/dL (11.4-16.0); Lymphocytes # (A) 2.9 k/uL (1.0-4.8); Lymphocytes % (A) 24 %; MCH 29.1 pg (25.0-35.0); MCV 88.1 fL (80.0-100.0); Monocytes # (A) 0.7 k/uL (0-1.0); Monocytes % (A) 5 %; Neutrophils # (A) 7.9 k/uL (1.3-7.7); Neutrophils % (A) 66 %; Platelet Count 250 k/uL (150-450); RBC 4.08 m/uL (3.80-5.40); WBC 12.1 k/uL (3.8-10.6)
[2024-07-23 17:09] LABS: ALT 27 U/L (4-34); AST 24 U/L (14-36); African American GFR (CKD) 89 (>60 ml/min/1.73 sqM); Albumin 4.5 g/dL (3.5-5.0); Alkaline Phosphatase 89 U/L (38-126); Anion Gap 10 mmol/L; Blood Urea Nitrogen 9 mg/dL (7-17); Carbon Dioxide 25 mmol/L (22-30); Chloride 102 mmol/L (98-107); Glucose 96 mg/dL (74-99); Lipase 101 U/L (23-300); Non-African American GFR(CKD) 77 (>60 ml/min/1.73 sqM); Potassium 4.4 mmol/L (3.5-5.1); Sodium 137 mmol/L (137-145); Total Bilirubin 0.3 mg/dL (0.2-1.3); Total Protein 7.1 g/dL (6.3-8.2)
[2024-07-23] MEDS: SODIUM CHLORIDE 0.9% 1,000 ML IV STA (17:21)
[2024-07-23 17:24] VITALS: PULSE 64
[2024-07-23 17:28] LABS: Appearance,Urine Clear (Clear); Bacteria,Urine Moderate /hpf; Bilirubin,Urine Negative (Negative); Blood,Urine Negative (Negative); Color,Urine Colorless; Glucose,Urine (UA) Negative (Negative); Ketones,Urine Negative (Negative); Leukocyte Esterase,Urine Trace (Negative); Nitrite,Urine Negative (Negative); Protein,Urine Negative (Negative); RBC,Urine <1 /hpf (0-5); Specific Gravity,Urine 1.004 (1.001-1.035); Squamous Epithelial Cell,Urine <1 /hpf (0-4); Urobilinogen,Urine <2.0 mg/dL (<2.0); WBC,Urine 6 /hpf (0-5)
--- NOTE | 2024-07-23 17:52 | XR ---
EXAMINATION TYPE: XR KUB DATE OF EXAM: 07/23/2024 5:40 PM COMPARISON: Previous radiograph 07/11/2024. CLINICAL INDICATION: Female, 59 years old with history of pain; H TECHNIQUE: One radiographic view of the abdomen was obtained. FINDINGS: The bowel gas pattern is nonspecific without dilated loops of small or large bowel. . Fecal material and gas are demonstrated throughout the colon and rectum. There is no evidence for organomegaly or pneumoperitoneum. The osseous structures are intact. No ab normal calcifications are present. Posterior lumbosacral spinal fusion hardware. Spinal stimulator de vice visualized. Partially visualized right sacroiliac joint fusion. IMPRESSION: Nonspecific bowel gas pattern without radiographic evidence for acute process. [facility], , 07/23/2024 5:50 PM
--- NOTE | 2024-07-23 17:53 | XR ---
EXAMINATION TYPE: XR chest 1V DATE OF EXAM: 07/23/2024 5:40 PM COMPARISON: Chest radiographs from CLINICAL INDICATION: Female, 59 years old with history of pain; [facility] TECHNIQUE: XR chest 1V Frontal view of the chest. FINDINGS: Lungs/Pleura: There is no evidence of pleural effusion, focal consolidation, or pneumothorax. Pulmonary vascularity: Unremarkable. Heart/mediastinum: Cardiomediastinal silhouette is unremarkable. Musculoskeletal: No acute osseous pathology. Cervical spine fusion hardware partially visualized. Pos sible DIRECTOR LEARNING AND DEVELOPMENT shunt catheter and spinal simulator device noted. Other findings: None IMPRESSION: No acute cardiopulmonary disease/process. [facility], , 07/23/2024 5:51 PM
[2024-07-23] MEDS: HYDROmorphone 1 MG/ML 1 ML SYRINGE IVP STA (17:57)
[2024-07-23] MEDS: PROCHLORPERAZINE INJ 10 MG/2 ML VIAL IVP STA (18:00)
[2024-07-23] MEDS: diphenhydrAMINE 50 MG/ML 1 ML VIAL IVP STA (18:02)
[2024-07-23 18:39] VITALS: BP 111/73
== END 2024-07-23 18:39 | disposition home or self-care (01) ==
LOC: EC 14:59
DX: R10.9 Unspecified abdominal pain (principal); Z88.0 Allergy status to penicillin; Z87.891 Personal history of nicotine dependence
CPT/HCPCS: 36415; 80053; 83605; 83690; 85025; 81001; 71045; 74018; 99284; 96374; 96375 ×2; 96361; J1200; J0780; J1171

== ENCOUNTER → 2024-08-02 | Outpatient (CLI) | payer MEDICARE, OTHER ==
[2024-08-02 08:25] VITALS: BP 105/59; PULSE 64; RESP 19; TEMP 97.6
--- NOTE | 2024-08-02 14:40 | P.PAINPG ---
PQRS Measure Charge Sheet Comment: A 59 yr old female with a history of severe and chronic neck and LBP > 2 yr secondary to cervical and lumbar radiculopathy, spondylosis with facet arthropathy without myelopathy presents today for medication refills. Pain level is provoked at 7 /10 in intensity, constant, localized in the cervical & lumbar spine, sharp in character w shooting towards the back of the shoulders and BLEs. Pain is provoked by lifting. Pain is alleviated with PT w massage x 4 wks in Oct 2022, medications, topical , alternating heat & ice, repositioning and rest. Patient is currently on [place] 10/325mg #90, Zanaflex, Ibu, Voltaren gel Patient denies any side effects of the medication(s), denies excessive drowsiness or sleepiness, denies suicidal ideation and reports that the current pain medication is helping to control the pain and improve activities of daily living. Patient denies any motor or sensory deficits. Patient denies any fever or night sweats, denies any change in the bowel movements or urination. Physical Examination: -Constitutional: Cooperative. Not in acute distress . - Neurologic: Cranial nerve II to XII intact. No focal neurological deficits. - Psychatric: Alert & oriented x 3. Matching mood & appropriate affect. Judgment and insight intact. - Musculoskeletal: Cervical spine: Muscle bulk/ tone/ strength in the bilateral upper extremities normal Vertebral body tenderness to palpation over Spurling test positive Distraction test positive Facet loading test positive TTP Thoracic spine Muscle bulk / tone/ strength in the bilateral paraspinal muscles normal Vertebral body tender to palpation over Facet loading test positive TTP Lumbar spine: Motor bulk/ tone/ strength lower extremities , thigh and legs : 5/5 Deep tendon reflexes : Normal Knee Jerk. Normal Ankle Jerk . Vertebral body tenderness to palpation over L4 Lumbar Facet Loading Test positive Straight Leg Raise: positive at 30 degrees right side/ left side Gaenslen's Test positive Sacral spine : Severe tenderness over the Sacroiliac joint: right side / left side Range of motion: Flexion of the lumbar spine <60 degrees Range of motion: Extension of the lumbar spine <20 degrees Gaenslen's Test positive R / L Tim test: positive right side / left side Thigh Thrust Test positive R / L Sacral Thrust Test positive R/ L Assessment and plan: Chronic neck pain and LBP secondary to cervical & lumbar radiculopathy, spondylosis with facet arthropathy without myelopathy Chronic and current use of high-risk medication (Opioids). The patient was counseled about risk of opioid use, psychological risk associated with opioids and was orally counseled to not overuse , divert or sell medications. Pt is to store medication in a safe location. The patient is counseled against driving while using narcotic medications and also not to use alcohol or any illicit recreational drugs. Patient verbalized understanding that the lack of compliance will result in failure to renew narcotic prescription(s) as well as possible discharge from the clinic Diagnoses, prognosis and treatment options including but not limited to physical therapy, surgical interventions, interventional therapies and medication management including narcotics and adjuvant medication were discussed. All patient questions answered . Opiate/ narcotic agreement renewed 02/14/24. MAPS reviewed and it was appropriate. UDS from 06/07/24 reviewed and consistent. Discontinue Russell 10/325mg #90 Prescription refill for Percocet 7.5/325mg #90 , Ibu 800mg #90, Diclofenac gel, Zanaflex 2mg #30 w 1 RF. I have spent less than 30 minutes on patient care today. Dr Castanon was available by phone for the evaluation of this patient. The time was used to review the medical records including relevant urine studies and Prescription history (MAPs), review of the available imaging, evaluation and examination of the patient, coordination of care with the medical staff and if applicable referring physicians, as well as creation of the medical record PQRS Narrative: Smoking Status Former smoker Narcotic Agreement Date Signed 02/14/24 Hx Alcohol Use (MH) No Home Medications: Ambulatory Orders Ezetimibe [Zetia] 10 mg PO HS 09/05/14 Levothyroxine Sodium [Synthroid] 25 mcg PO DAILY 03/13/16 Omeprazole 40 mg PO HS 11/13/16 clonazePAM [KlonoPIN] 0.5 mg PO HS 05/03/17 Methylphenidate HCl 20 mg PO TID@0500,1200,1700 09/09/18 Atorvastatin Calcium [Lipitor] 10 mg PO HS 10/06/19 estradioL [Estrace] 0.5 mg PO DAILY 10/06/19 Citalopram Hydrobromide [CeleXA] 40 mg PO DAILY 02/09/22 Fluticasone Nasal [place] [Flonase Nasal [place]] 1 spr EA NOSTRIL BID 02/04/23 Brexpiprazole [Rexulti] 0.25 mg PO HS 09/18/23 Cetirizine HCl [Zyrtec] 10 mg PO HS 02/03/24 Varenicline [Chantix Continuing Pack] 1 mg PO BID 05/08/24 Albuterol Inhaler [Ventolin Hfa Inhaler] 2 puff INHALATION RT-QID PRN 05/13/24 busPIRone HCl [Buspar] 10 mg PO BID 05/13/24 Docusate [Colace] 100 mg PO BID #20 capsule 05/21/24 diazePAM [Valium] 5 mg PO DAILY PRN 1 Days #2 tab 07/26/24 Diclofenac Sodium Gel [Voltaren 1% Gel] 2 - 4 gm TOPICAL TID PRN 30 Days #1 each 08/02/24 Ibuprofen [Motrin] 600 mg PO Q6HR PRN #40 tab 08/02/24 oxyCODONE HCL/ACETAMINOPHEN [Percocet 7.5-325 mg Tablet] 1 each PO TID PRN 30 Days #90 tab 08/02/24 oxyCODONE HCL/ACETAMINOPHEN [Percocet 7.5-325 mg] 1 tab PO TID PRN 30 Days #90 tab 08/02/24 tiZANidine HCL 2 mg PO HS 30 Days #30 tab 08/02/24 Controlled Substance Measures - Controlled Substance Measures Is patient prescribed a controlled substance at discharge?: Yes When asked, does pt state using other controlled substances?: Yes If prescribed controlled substance>3 days was MAPS reviewed?: Yes
== END ==
LOC: PNWHC3 07:55
PROVIDERS: ATTEND Specialist
DX: M47.22 Other spondylosis with radiculopathy, cervical region (principal); M47.26 Other spondylosis with radiculopathy, lumbar region; Z79.891 Long term (current) use of opiate analgesic; Z87.891 Personal history of nicotine dependence; Z88.0 Allergy status to penicillin
CPT/HCPCS: 99211

== ENCOUNTER 2024-08-04 09:04 | Emergency (ER) | payer MEDICARE, OTHER ==
--- NOTE | 2024-08-04 10:13 | ED ---
Abdominal Pain HPI - General Source: patient, RN notes reviewed Mode of arrival: ambulatory Limitations: no limitations <Cecille Valle - Last Filed: 08/04/24 10:10> <Curt Mas - Last Filed: 08/04/24 15:19> - General Chief Complaint: Abdominal Pain Stated Complaint: Abdominal Pain Time Seen by Provider: 08/04/24 10:11 - History of Present Illness Initial Comments: Quick note: 5-year-old female with known past medical history significant of colon resection on 05/16/[address] Alvarenga presenting to the ER for evaluation of abdominal pain. She states she has not had a bowel movement since Wednesday. She has tried mag citrate. No nausea vomiting or fevers. Patient does admit to a small bowel movement here in the ER. (Cecille Valle) Is a 59-year-old female who presents to the emergency department stating she had a colon resection in 05/16/[address] Alvarenga. Patient states that since Wednesday she has not been having a bowel movement so she think she is very constipated. Patient states she took mag citrate but only had some fluid come out. Patient states she has mid abdominal cramping still. Patient denies any nausea vomiting. Patient has any fever chills. (Curt Mas) - Related Data Home Medications Medication Instructions Recorded Confirmed Ezetimibe [Zetia] 10 mg PO HS 09/05/14 08/03/24 Levothyroxine Sodium [Synthroid] 25 mcg PO DAILY 03/13/16 08/03/24 Omeprazole 40 mg PO HS 11/13/16 08/03/24 clonazePAM [KlonoPIN] 0.5 mg PO HS 05/03/17 08/03/24 Methylphenidate HCl 20 mg PO TID@0500,1200,1700 09/09/18 08/03/24 Atorvastatin Calcium [Lipitor] 10 mg PO HS 10/06/19 08/03/24 estradioL [Estrace] 0.5 mg PO DAILY 10/06/19 08/03/24 Citalopram Hydrobromide [CeleXA] 40 mg PO DAILY 02/09/22 08/03/24 Fluticasone Nasal [place] [Flonase 1 spr EA NOSTRIL BID 02/04/23 08/03/24 Nasal [place]] Brexpiprazole [Rexulti] 0.25 mg PO HS 09/18/23 08/03/24 Cetirizine HCl [Zyrtec] 10 mg PO HS 02/03/24 08/03/24 Varenicline [Chantix Continuing 1 mg PO BID 05/08/24 08/03/24 Pack] Albuterol Inhaler [Ventolin Hfa 2 puff INHALATION RT-QID PRN 05/13/24 08/03/24 Inhaler] busPIRone HCl [Buspar] 10 mg PO BID 05/13/24 08/03/24 Previous Rx's Medication Instructions Recorded Docusate [Colace] 100 mg PO BID #20 capsule 05/21/24 diazePAM [Valium] 5 mg PO DAILY PRN 1 Days #2 tab 07/26/24 Diclofenac Sodium Gel [Voltaren 1% 2 - 4 gm TOPICAL TID PRN 30 Days 08/02/24 Gel] #1 each Ibuprofen [Motrin] 600 mg PO Q6HR PRN #40 tab 08/02/24 oxyCODONE HCL/ACETAMINOPHEN 1 each PO TID PRN 30 Days #90 tab 08/02/24 [Percocet 7.5-325 mg Tablet] oxyCODONE HCL/ACETAMINOPHEN 1 tab PO TID PRN 30 Days #90 tab 08/02/24 [Percocet 7.5-325 mg] tiZANidine HCL 2 mg PO HS 30 Days #30 tab 08/02/24 Allergies Allergy/AdvReac Type Severity Reaction Status Date / Time Penicillins Allergy Childhood Verified 08/04/24 09:27 Rash Review of Systems ROS Other: All systems not noted in ROS Statement are negative. <Cecille Valle - Last Filed: 08/04/24 10:10> ROS Other: All systems not noted in ROS Statement are negative. <Curt Mas - Last Filed: 08/04/24 15:19> ROS Statement: Those systems with pertinent positive or pertinent negative responses have been documented in the HPI. Past Medical History Past Medical History: Asthma, COPD, GERD/Reflux, Hyperlipidemia, Osteoarthritis (OA), Syncope, Thyroid Disorder Additional Past Medical History / Comment(s): kidney stones, hypoglycemia, chronic neck and L shoulder, lower back pain. Hx L facial and L ankle fxs, sinus problems, vertigo, falls in past due to syncope, low BP at times. Fusion of sacrum and iliac crest-per , spinal cord stimulator in cervical spine, dive rticulosis/diverticulitis. 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 rectocele repair, d&c , colon resection 05/15/24 Past Anesthesia/Blood Transfusion Reactions: Previous Problems w/ Anesthesia Additional Past Anesthesia/Blood Transfusion Reaction / Comment(s): "Takes longer to wake up from anesthesia." - just once Past Psychological History: ADD/ADHD, Anxiety, Depression Smoking Status: Former smoker Past Alcohol Use History: None Reported Past Drug Use History: None Reported - Past Family History Mother History Unknown: Yes Family Medical History: Cancer Additional Family Medical History / Comment(s): lung Father Family Medical History: Asthma, COPD, Osteoarthritis (OA) Additional Family Medical History / Comment(s): Father at age 80 yrs. Sister(s) Family Medical History: Diabetes Mellitus, Thyroid Disorder <Cecille Valle - Last Filed: 08/04/24 10:10> General Exam Limitations: no limitations <Cecille Valle - Last Filed: 08/04/24 10:10> <Curt Mas - Last Filed: 08/04/24 15:19> - General Exam Comments Initial Comments: Visual Physical Exam Vital signs reviewed General: Well-appearing, nontoxic, no acute distress. Head: Normocephalic, atraumatic Eyes: PERRLA, EOMI ENT: Airway patent Chest: Nonlabored breathing Skin: No visual rash, normal skin tone Neuro: Alert and oriented 3 Musculoskeletal: No gross abnormalities (Cecille Valle) GENERAL: Patient is well-developed and well-nourished. Patient is nontoxic and well-hyd rated and is in mild distress. ENT: Neck is soft and supple. No significant lymphadenopathy is noted. Oropharynx is clear. Moist mucous membranes. Neck has full range of motion without eliciting any pain. EYES: The sclera were anicteric and conjunctiva were pink and moist. Extraocular movements were intact and pupils were equal round and reactive to light. Eyelids were unremarkable. PULMONARY: Unlabored respirations. Good breath sounds bilaterally. No audible rales rhonchi or wheezing was noted. CARDIOVASCULAR: There is a regular rate and rhythm without any murmurs gallops or rubs. ABDOMEN: Soft and nontender with normal bowel sounds. SKIN: Skin is clear with no lesions or rashes and otherwise unremarkable. NEUROLOGIC: Patient is alert and oriented x3. Cranial nerves II through XII are grossly intact. Motor and sensory are also intact. Normal speech, volume and content. Symmetrical smile. MUSCULOSKELETAL: Normal extremities with adequate strength and full range of motion. LYMPHATICS: No significant lymphadenopathy is noted PSYCHIATRIC: Normal psychiatric evaluation. (Curt Mas) Course Vital Signs 08/04/24 08/04/24 09:27 13:32 Temperature 98.1 F 98.0 F Pulse Rate 71 60 Respiratory 18 17 Rate Blood Pressure 87/56 91/47 O2 Sat by Pulse 97 96 Oximetry Medical Decision Making <Cecille Valle - Last Filed: 08/04/24 10:10> - Lab Data Result diagrams: 08/04/24 10:39 08/04/24 10:39 <Curt Mas - Last Filed: 08/04/24 15:19> - Medical Decision Making I performed the quick note portion of this chart. Electronically signed by Cecille Valle PA-C (Cecille Valle) Was pt. sent in by a medical professional or institution (MARLO Maldonado, PLANT SENIOR MANAGER, urgent care, hospital, or custodial...) When possible be specific @ -No Did you speak to anyone other than the patient for history (EMS, parent, family, police, friend...)? What history was obtained from this source @ -No Did you review nursing and triage notes (agree or disagree)? Why? @ -I reviewed and agree with nursing and triage notes Were old charts reviewed (outside hosp., previous admission, EMS record, old EKG, old radiological studies, urgent care reports/EKG's, custodial records)? Report findings @ -No old charts were reviewed Differential Diagnosis? @ -Differential Abdominal Pain Women: Appendicitis, Cholecystitis, diverticulosis, ischemic bowel, pancreatitis, hepatitis, UTI, gastroenteritis, AAA, incarcerated hernia, bowel obstruction, constipation, inflammatory bowel, hepatitis, peptic ulcer disease, splenic infarction, perforated viscus, vulvitis, ovarian torsion, PID, kidney stone, placenta abruption, this is not meant to be an all-inclusive list EKG interpreted by me (3pts min.). @ -As above X-rays interpreted by me (1pt min.). @ -KUB shows significant constipation CT interpreted by me (1pt min.). @ -None done U/S interpreted by me (1pt. min.). @ -None done What testing was considered but not performed or refused? (CT, X-rays, U/S, labs)? Why? @ -None What meds were considered but not given or refused? Why? @ -None Did you discuss the management of the patient with other professionals (professionals i.e. , PA, PLANT SENIOR MANAGER, lab, RT, psych nurse, social services manager, jewel hole gauger, teacher, senior compliance officer, director of casework services)? Give summary @ -No Was smoking cessation discussed for >3mins.? @ -No Was critical care preformed (if so, how long)? @ -No Were there social determinants of health that impacted care today? How? (Homel essness, low income, unemployed, alcoholism, drug addiction, transportation, low edu. Level, literacy, decrease access to med. care, residential, rehab)? @ -No Was there de-escalation of care discussed even if they declined (Discuss DNR or withdrawal of care, Hospice)? DNR status @ -No What co-morbidities impacted this encounter? (DM, HTN, Smoking, COPD, CAD, Cancer, CVA, ARF, Chemo, Hep., AIDS, mental health diagnosis, sleep apnea, morbid obesity)? @ -None Was patient admitted / discharged? Hospital course, mention meds given and route, prescriptions, significant lab abnormalities, going to OR and other pertinent info. @ -Patient was given an enema in the emergency department had a large bowel mov ement was feeling considerably better and no longer had any abdominal cramping. Undiagnosed new problem with uncertain prognosis? @ -No Drug Therapy requiring intensive monitoring for toxicity (Heparin, Nitro, Insulin, Cardizem)? @ -No Were any procedures done? @ -No Diagnosis/symptom? @ -Constipation Acute, or Chronic, or Acute on Chronic? @ -Acute Uncomplicated (without systemic symptoms) or Complicated (systemic symptoms)? @ -Uncomplicated Side effects of treatment? @ -No Exacerbation, Progression, or Severe Exacerbation? @ -No Poses a threat to life or bodily function? How? (Chest pain, [place], [place], pneumonia, PE, COPD, DKA, ARF, appy, cholecystitis, CVA, Diverticulitis, Homicidal, Suicidal, threat to staff... and all critical care pts) @ -No (Curt Mas) - Lab Data Lab Results 08/04/24 08/04/24 08/04/24 Range/Units 10:39 10:39 10:39 WBC 11.3 H (3.8-10.6) k/uL RBC 4.19 (3.80-5.40) m/uL Hgb 12.2 (11.4-16.0) gm/dL Hct 37.2 (34.0-46.0) % MCV 88.9 (80.0-100.0) fL MCH 29.2 (25.0-35.0) pg MCHC 32.8 (31.0-37.0) g/dL RDW 12.9 (11.5-15.5) % Plt Count 288 (150-450) k/uL MPV 7.6 Neutrophils % 66 % Lymphocytes % 26 % Monocytes % 4 % Eosinophils % 2 % Basophils % 1 % Neutrophils # 7.4 (1.3-7.7) k/uL Lymphocytes # 2.9 (1.0-4.8) k/uL Monocytes # 0.4 (0-1.0) k/uL Eosinophils # 0.2 (0-0.7) k/uL Basophils # 0.1 (0-0.2) k/uL Sodium 138 (137-145) mmol/L Potassium 4.5 (3.5-5.1) mmol/L Chloride 104 (98-107) mmol/L Carbon Dioxide 28 (22-30) mmol/L Anion Gap 6 mmol/L BUN 7 (7-17) mg/dL Creatinine 0.76 (0.52-1.04) mg/dL Est GFR (CKD-EPI)AfAm >90 (>60 ml/min/1.73 sqM) Est GFR (CKD-EPI)NonAf 86 (>60 ml/min/1.73 sqM) Glucose 103 H (74-99) mg/dL Lactic Ac Sepsis Rflx Plasma Lactic Acid Ch[place] 2.2 H* (0.7-2.0) mmol/L Calcium 9.1 (8.4-10.2) mg/dL Total Bilirubin 0.6 (0.2-1.3) mg/dL AST 45 H (14-36) U/L ALT 45 H (4-34) U/L Alkaline Phosphatase 109 (38-126) U/L Total Protein 7.5 (6.3-8.2) g/dL Albumin 4.7 (3.5-5.0) g/dL Amylase 43 (30-110) U/L Lipase 147 (23-300) U/L Urine Color Urine Appearance (Clear) Urine pH (5.0-8.0) Ur Specific [place] (1.001-1.035) Urine Protein (Negative) Urine Glucose (UA) (Negative) Urine Ketones (Negative) Urine Blood (Negative) Urine Nitrite (Negative) Urine Bilirubin (Negative) Urine Urobilinogen (<2.0) mg/dL Ur Leukocyte Esterase (Negative) Urine RBC (0-5) /hpf Urine WBC (0-5) /hpf Ur Squamous Epith Cells (0-4) /hpf Urine Bacteria (None) /hpf 08/04/24 08/04/24 Range/Units 11:11 12:31 WBC (3.8-10.6) k/uL RBC (3.80-5.40) m/uL Hgb (11.4-16.0) gm/dL Hct (34.0-46.0) % MCV (80.0-100.0) fL MCH (25.0-35.0) pg MCHC (31.0-37.0) g/dL RDW (11.5-15.5) % Plt Count (150-450) k/uL MPV Neutrophils % % Lymphocytes % % Monocytes % % Eosinophils % % Basophils % % Neutrophils # (1.3-7.7) k/uL Lymphocytes # (1.0-4.8) k/uL Monocytes # (0-1.0) k/uL Eosinophils # (0-0.7) k/uL Basophils # (0-0.2) k/uL Sodium (137-145) mmol/L Potassium (3.5-5.1) mmol/L Chloride (98-107) mmol/L Carbon Dioxide (22-30) mmol/L Anion Gap mmol/L BUN (7-17) mg/dL Creatinine (0.52-1.04) mg/dL Est GFR (CKD-EPI)AfAm (>60 ml/min/1.73 sqM) Est GFR (CKD-EPI)NonAf (>60 ml/min/1.73 sqM) Glucose (74-99) mg/dL Lactic Ac Sepsis Rflx Y Plasma Lactic Acid [place] (0.7-2.0) mmol/L Calcium (8.4-10.2) mg/dL Total Bilirubin (0.2-1.3) mg/dL AST (14-36) U/L ALT (4-34) U/L Alkaline Phosphatase (38-126) U/L Total Protein (6.3-8.2) g/dL Albumin (3.5-5.0) g/dL Amylase (30-110) U/L Lipase (23-300) U/L Urine Color Colorless Urine Appearance Cloudy H (Clear) Urine pH 6.0 (5.0-8.0) Ur Specific [place] 1.005 (1.001-1.035) Urine Protein Negative (Negative) Urine Glucose (UA) Negative (Negative) Urine Ketones Negative (Negative) Urine Blood Negative (Negative) Urine Nitrite Negative (Negative) Urine Bilirubin Negative (Negative) Urine Urobilinogen <2.0 (<2.0) mg/dL Ur Leukocyte Esterase Moderate H (Negative) Urine RBC 1 (0-5) /hpf Urine WBC 25 H (0-5) /hpf Ur Squamous Epith Cells 10 H (0-4) /hpf Urine Bacteria Many H (None) /hpf Disposition <Cecille Valle - Last Filed: 08/04/24 10:10> Is patient prescribed a controlled substance at d/c from ED?: No Time of Disposition: 15:19 <Curt Mas - Last Filed: 08/04/24 15:19> Clinical Impression: Constipation Disposition: HOME SELF-CARE Condition: Good Instructions (If sedation given, give patient instructions): Constipation (ED), High Fiber Diet (ED) Referrals: Ihsan Ding DO [Primary Care Provider] - 1-2 days
[2024-08-04 10:53] LABS: Basophils # (A) 0.1 k/uL (0-0.2); Basophils % (A) 1 %; Eosinophils # (A) 0.2 k/uL (0-0.7); Eosinophils % (A) 2 %; HCT 37.2 % (34.0-46.0); HGB 12.2 gm/dL (11.4-16.0); Lymphocytes # (A) 2.9 k/uL (1.0-4.8); Lymphocytes % (A) 26 %; MCH 29.2 pg (25.0-35.0); MCHC 32.8 g/dL (31.0-37.0); MCV 88.9 fL (80.0-100.0); Mean Platelet Volume 7.6; Monocytes # (A) 0.4 k/uL (0-1.0); Monocytes % (A) 4 %; Neutrophils # (A) 7.4 k/uL (1.3-7.7); Neutrophils % (A) 66 %; Platelet Count 288 k/uL (150-450); RBC 4.19 m/uL (3.80-5.40); RDW 12.9 % (11.5-15.5); WBC 11.3 k/uL (3.8-10.6)
[2024-08-04 11:06] LABS: ALT 45 U/L (4-34); AST 45 U/L (14-36); African American GFR (CKD) >90 (>60 ml/min/1.73 sqM); Albumin 4.7 g/dL (3.5-5.0); Alkaline Phosphatase 109 U/L (38-126); Amylase 43 U/L (30-110); Anion Gap 6 mmol/L; Blood Urea Nitrogen 7 mg/dL (7-17); Calcium 9.1 mg/dL (8.4-10.2); Carbon Dioxide 28 mmol/L (22-30); Chloride 104 mmol/L (98-107); Glucose 103 mg/dL (74-99); Lipase 147 U/L (23-300); Non-African American GFR(CKD) 86 (>60 ml/min/1.73 sqM); Potassium 4.5 mmol/L (3.5-5.1); Sodium 138 mmol/L (137-145); Total Bilirubin 0.6 mg/dL (0.2-1.3); Total Protein 7.5 g/dL (6.3-8.2)
[2024-08-04 13:04] LABS: Appearance,Urine Cloudy (Clear); Bacteria,Urine Many /hpf; Bilirubin,Urine Negative (Negative); Blood,Urine Negative (Negative); Color,Urine Colorless; Glucose,Urine (UA) Negative (Negative); Ketones,Urine Negative (Negative); Leukocyte Esterase,Urine Moderate (Negative); Nitrite,Urine Negative (Negative); Protein,Urine Negative (Negative); RBC,Urine 1 /hpf (0-5); Specific Gravity,Urine 1.005 (1.001-1.035); Squamous Epithelial Cell,Urine 10 /hpf (0-4); Urobilinogen,Urine <2.0 mg/dL (<2.0); WBC,Urine 25 /hpf (0-5)
--- NOTE | 2024-08-04 13:19 | XR ---
EXAMINATION TYPE: XR KUB DATE OF EXAM: 08/04/2024 12:49 PM COMPARISON: None. CLINICAL INDICATION: Female, 59 years old with history of Constipation, TECHNIQUE: XR KUB view(s) obtained. FINDINGS: There is a normal bowel gas pattern. Psoas margins are normal. No organomegaly is present. Type device overlies the right abdomen Postsurgical changes are within the lumbar spine and right sacroiliac joint IMPRESSION: 1. No suspicious acute changes [facility], , 08/04/2024 1:17 PM
[2024-08-04 13:36] VITALS: RESP 17; TEMP 98
[2024-08-04 15:26] VITALS: BP 81/56; PULSE 78
== END 2024-08-04 15:36 | disposition home or self-care (01) ==
LOC: EC 09:04
DX: K59.00 Constipation, unspecified (principal); Z87.891 Personal history of nicotine dependence; Z88.0 Allergy status to penicillin
CPT/HCPCS: 36415; 74018; 80053; 81001; 82150; 83605; 83690; 85025; 99284

== ENCOUNTER 2024-08-11 12:29 | Day surgery (SDC) | payer MEDICARE, OTHER ==
[2024-08-03 09:51] VITALS: BMI 29.2
[~2024-08-11 12:29] MED LIST changes: -LACTATED RINGERS 1,000 ML BAG ONE; +LACTATED RINGERS 1,000 ML IV SCH; -PROPOFOL 10 MG/ML 20 ML VIAL IV ONE
[2024-08-11] MEDS ORDERED: LACTATED RINGERS 1,000 ML IV SCH ×2 (13:43)
[2024-08-11 14:06] VITALS: PULSE 60; TEMP 98.2
[2024-08-11] MEDS ORDERED: DEXAMETHASONE SOD PHOSPHATE 10 MG/ML 1 ML VIAL ONE (14:27)
[2024-08-11] MEDS ORDERED: IOPAMIDOL M300 15ML VIAL ONE (14:27)
--- NOTE | 2024-08-11 14:56 | P.PCN ---
Description of Procedure: PREOPERATIVE DIAGNOSIS: 1-Lumbar radiculopathy . 2-lumbar degenerative disc disease. 3-lumbar spondylosis with lumbar facet arthropathy without myelopathy POSTOPERATIVE DIAGNOSIS: 1-lumbar radiculopathy. 2-lumbar degenerative disc disease. 3-lumbar spondylosis with facet arthropathy without myelopathy PROCEDURE 1. Transforaminal epidural steroid injection under fluoroscopic guidance at RIGHT L5-S1 level. (Fluoroscopy images stored on file in the radiology Department ) 2. Lumbar epidurogram . ANESTHESIA: Local with 1% lidocaine 5 ml. subcutaneously. Continuous pulse ox, EKG, blood pressure and verbal communication was maintained with the patient. EBL: Minimal PROCEDURE INDICATION: The patient with low back pain and radiculopathy symptoms unresponsive to conservative treatment. The patient was seen and identified in the preoperative area. Risks, benefits, complications, and alternatives were discussed with the patient. The patient agreed to proceed with the procedure and signed the consent. IV was started, and vital signs were stable. PROCEDURE DESCRIPTION / TECHNIQUE: After getting consent, patient was taken to the OR and time out was completed. The patient was placed in the prone position on procedure table and a pillow was placed under the abdomen to reduce lumbar lordosis. The lumbosacral area was prepped and draped in the usual sterile fashion. Critical pause was taken. After injecting 5 mL of plain 1% lidocaine subcutaneously, under oblique view of the fluoroscope, a 22-gauge spinal needle was introduced under the tunnel view of the fluoroscope on the RIGHT side and the needle was advanced so that the tip of the needle was at the posterior inferior quadrant of the intervertebral foramen at the lateral view of the fluoroscope and in the lateral third of the facet column in the AP view of the fluoroscope. Negative CSF, negative blood, negative paresthesia. After needle position confirmation by AP and cross table lateral view, 3 mL of Isovue-M 200 contrast was injected under continuous fluoroscope. No contrast was noted in the intrathecal or intravascular space. The epidurogram was noted. Again after repeated negative aspiration 2.5 mL solution was injected which consists 0.5 mL of normal saline mixed with 2 mL of 20 mg dexamethasone. Needle was removed . At the end of the procedure, skin was cleansed, and bandages were applied. Because of the extensive hardware, it was very difficult to position the needle at L5-S1. Next injection consider caudal MARILIN. DISPOSITION / PLANS: No complication. The patient tolerated the procedure well. The patient was placed in a supine position and transferred to the recovery area in a stable condition for observation. There was no evidence of lower extremity motor or sensory deficit after the procedure. Patient was discharged from the recovery room after meeting discharge criteria. Home discharge instructions were given to the patient by the staff. The patient was reexamined prior to discharge.
[2024-08-11 15:07] VITALS: BP 138/90; RESP 81
--- NOTE | 2024-08-11 15:08 | FL ---
EXAMINATION TYPE: FL guided pain mgmt statistic DATE OF EXAM: 08/11/2024 2:57 PM COMPARISON: Pre Operative Images if available both CT/MRI or plain film CLINICAL INDICATION: Female, 59 years old with history of TRANSFORAMINAL EPI; TECHNIQUE: FL guided pain mgmt statistic, multiple fluoroscopic images provided for procedure. Total fluoroscopy time: 85.9 seconds Total submitted images to PACS: 1 DAP: [id number] mGym2 Gycm2 uGym2 cGycm2 or equivalent. FINDINGS: Fluoroscopic images during injection for pain management demonstrate multilevel degeneration changes throughout the spine. No evidence for fracture. No acute process identified. IMPRESSION: 1. No evidence for intraoperative complication. 2. Please see the operative/procedural note for further details. [facility], , 08/11/2024 3:06 PM
== END 2024-08-11 15:29 | disposition home or self-care (01) ==
LOC: ORPAIN 12:29
PROVIDERS: ATTEND Pain Medicine Interventional Pain Medicine
DX: M47.26 Other spondylosis with radiculopathy, lumbar region (principal); M51.16 Intervertebral disc disorders with radiculopathy, lumbar region; Z79.1 Long term (current) use of non-steroidal anti-inflammatories (NSAID); Z88.0 Allergy status to penicillin; Z79.899 Other long term (current) drug therapy
CPT/HCPCS: 64483

== ENCOUNTER → 2024-08-29 | Outpatient (CLI) | payer MEDICARE, OTHER ==
[2024-08-29 10:44] LABS: Basophils # (A) 0.03 X 10*3/uL (0.00-0.10); Basophils % (A) 0.3 %; Eosinophils # (A) 0.17 X 10*3/uL (0.04-0.35); Eosinophils % (A) 1.9 %; HGB 11.5 g/dL (12.0-15.0); Lymphocytes # (A) 2.31 X 10*3/uL (0.90-5.00); Lymphocytes % (A) 25.2 %; MCH 27.6 pg (27.0-32.0); MCHC 31.1 g/dL (32.0-37.0); MCV 88.7 FL (80.0-97.0); Mean Platelet Volume 11.1 FL (9.5-12.2); Monocytes # (A) 0.52 X 10*3/uL (0.20-1.00); Monocytes % (A) 5.7 %; NRBC Per 100 WBC 0 X 10*3/uL (0.00-0.01); Neutrophils # (A) 6.11 X 10*3/uL (1.80-7.70); Neutrophils % (A) 66.7 %; Platelet Count 246 X 10*3/uL (140-440); RBC 4.17 X 10*6/uL (4.10-5.20); RDW 14.3 % (11.5-14.5); WBC 9.16 X 10*3/uL (4.50-10.00)
[2024-08-29 11:26] LABS: ALT 19 U/L (8-44); AST 25 U/L (13-35); Albumin 4.1 g/dL (3.8-4.9); Albumin/Globulin Ratio 1.71 Ratio (1.60-3.17); Alkaline Phosphatase 86 U/L (41-126); BUN/Creat Ratio 9.22 Ratio (12.00-20.00); Bilirubin, Conjugated 0.23 mg/dL (0.20-0.40); Bilirubin,Unconjugated 0.27 mg/dL (0.20-1.00); Blood Urea Nitrogen 8.3 mg/dL (9.0-27.0); Calcium 9.1 mg/dL (8.7-10.3); Carbon Dioxide 25.5 mmol/L (21.6-31.8); Chloride 106 mmol/L (96-109); Chol/HDL Ratio 2.52 Ratio; Globulin 2.4 g/dL (1.6-3.3); Glucose 103 mg/dL (70-110); LDL Cholesterol,Calculated 79.3 mg/dL (0.0-131.0); Sodium 143 mmol/L (135-145); Total Bilirubin 0.5 mg/dL (0.3-1.2); Total Protein 6.5 g/dL (6.2-8.2)
== END | disposition home or self-care (01) ==
LOC: LABWHC1 07:00
PROVIDERS: ATTEND Physician Assistant
DX: I10 Essential (primary) hypertension (principal); D64.9 Anemia, unspecified; E11.9 Type 2 diabetes mellitus without complications; E78.5 Hyperlipidemia, unspecified; E03.9 Hypothyroidism, unspecified; E55.9 Vitamin D deficiency, unspecified; Z79.899 Other long term (current) drug therapy
CPT/HCPCS: 36415; 80053; 80061; 82248; 82306; 82607; 83036; 84443; 84481; 85025

== ENCOUNTER → 2024-09-04 | Outpatient (CLI) | payer MEDICARE, OTHER ==
--- NOTE | 2024-09-04 16:27 | CTL ---
EXAMINATION TYPE: CT Low Dose Lung DATE OF EXAM ORDERED: 09/04/2024 COMPARISON: Chest radiograph 05/19/2024, CT chest 09/03/2023, 02/19/2023 CLINICAL INDICATION: Female, 59 years old with history of R91.1 SOLITARY PULMONARY NODULE; PHH, perso nal tobacco use, Lung cancer screening, History of Smoking/tobacco use. TECHNIQUE: Low dose computed tomography scan was performed through the chest at 1 mm thick sections a nd reconstructed images in multiple planes at 1 mm and [address] DLP: 108.[address] CTDI: 3.4 mGy Automated exposure control for dose reduction was used. CT DIAGNOSTIC QUALITY: Satisfactory FINDINGS: Nodules: Stable right upper lobe 5 mm nodular opacity (series 6, image 18). Stable right midlung 5.7 mm nodule (series 6, image 29). Stable left upper lobe 4 mm linear nodule (series 6, image 19). No new or enlarging pulmonary nodules. LUNGS: COPD: Severity: None Fibrosis: Severity: None Lymph nodes: None Other findings: None RIGHT PLEURAL SPACE: Effusion: None Calcification: None Thickening: None Pneumothorax: None LEFT PLEURAL SPACE: Effusion: None Calcification: None Thickening: None Pneumothorax: None HEART: Heart Size: Normal Coronary Calcification: None Pericardial Effusion: Trace OTHER FINDINGS: Upper abdomen: None Bony thorax: Anterior cervical fusion hardware demonstrated. Supraclavicular region: None Other: Post surgical changes of the GE junction from hernia repair. There are stimulator spinal lead identified within the posterior back soft tissues entering the spinal canal and extending superiorly at T4-T5. IMPRESSION: Few stable pulmonary nodules in measuring less than 6 mm dating back to 2022. No new or enlarging pul monary nodules. CT LUNG RAD AND CT CHEST RECOMMENDATION: Lung-Rad 2 Benign Appearance or Behavior: Continue annual sc reening with LDCT in 12 months. S Modifier (other clinically significant findings): None [facility], , 09/04/2024 4:24 PM
== END | disposition home or self-care (01) ==
LOC: RADCTMAIN 15:41
PROVIDERS: ATTEND Internal Medicine
DX: Z12.2 Encounter for screening for malignant neoplasm of respiratory organs (principal); R91.1 Solitary pulmonary nodule; Z87.891 Personal history of nicotine dependence
CPT/HCPCS: 71271

== ENCOUNTER 2024-09-05 07:23 | Emergency (ER) | payer MEDICARE, OTHER ==
--- NOTE | 2024-09-05 08:18 | ED ---
General Adult HPI - General Chief complaint: Abdominal Pain Stated complaint: Abd pain Time Seen by Provider: 09/05/24 07:24 Source: patient Mode of arrival: ambulatory Limitations: no limitations - History of Present Illness Initial comments: Dictation was produced using [employer] dictation software. please excuse any grammatical, word or spelling errors. Chief Complaint: 59-year-old female presents with left upper quadrant abdominal pain History of Present Illness: Patient is a 59-year-old female presents to the emergency department left upper quadrant abdominal pain. States that she has been having pain for last 2 to 3 days. She has extensive history of diverticulitis including hemicolectomy for treatment of diverticulitis. Patient Nuys any fever, chills or night sweats. States that the pain is constant in her left upper quadrant. Denies any nausea vomiting or diarrhea The ROS documented in this emergency department record has been reviewed and confirmed by me. Those systems with pertinent positive or negative responses have been documented in the HPI. All other systems are other negative and/or noncontributory. - Related Data Home Medications Medication Instructions Recorded Confirmed Ezetimibe [Zetia] 10 mg PO HS 09/05/14 08/10/24 Levothyroxine Sodium [Synthroid] 25 mcg PO DAILY 03/13/16 08/10/24 Omeprazole 40 mg PO HS 11/13/16 08/10/24 clonazePAM [KlonoPIN] 0.5 mg PO HS 05/03/17 08/10/24 Methylphenidate HCl 20 mg PO TID@0500,1200,1700 09/09/18 08/10/24 Atorvastatin Calcium [Lipitor] 10 mg PO HS 10/06/19 08/10/24 estradioL [Estrace] 0.5 mg PO DAILY 10/06/19 08/10/24 Citalopram Hydrobromide [CeleXA] 40 mg PO DAILY 02/09/22 08/10/24 Fluticasone Nasal Kathleen [Flonase 1 spr EA NOSTRIL BID 02/04/23 08/10/24 Nasal Kathleen] Brexpiprazole [Rexulti] 0.25 mg PO HS 09/18/23 08/10/24 Cetirizine HCl [Zyrtec] 10 mg PO HS 02/03/24 08/10/24 Varenicline [Chantix Continuing 1 mg PO BID 05/08/24 08/10/24 Pack] Albuterol Inhaler [Ventolin Hfa 2 puff INHALATION RT-QID PRN 05/13/24 08/10/24 Inhaler] busPIRone HCl [Buspar] 10 mg PO BID 05/13/24 08/10/24 Previous Rx's Medication Instructions Recorded Docusate [Colace] 100 mg PO BID #20 capsule 05/21/24 diazePAM [Valium] 5 mg PO DAILY PRN 1 Days #2 tab 07/26/24 Diclofenac Sodium Gel [Voltaren 1% 2 - 4 gm TOPICAL TID PRN 30 Days 08/02/24 Gel] #1 each Ibuprofen [Motrin] 600 mg PO Q6HR PRN #40 tab 08/02/24 oxyCODONE HCL/ACETAMINOPHEN 1 each PO TID PRN 30 Days #90 tab 08/02/24 [Percocet 7.5-325 mg Tablet] oxyCODONE HCL/ACETAMINOPHEN 1 tab PO TID PRN 30 Days #90 tab 08/02/24 [Percocet 7.5-325 mg] tiZANidine HCL 2 mg PO HS 30 Days #30 tab 08/02/24 Cefpodoxime Proxetil [Vantin] 200 mg PO Q12HR 10 Days #20 tab 09/05/24 Allergies Allergy/AdvReac Type Severity Reaction Status Date / Time Penicillins Allergy Childhood Verified 09/05/24 07:24 Rash Review of Systems ROS Statement: Those systems with pertinent positive or pertinent negative responses have been documented in the HPI. ROS Other: All systems not noted in ROS Statement are negative. Past Medical History Past Medical History: Asthma, COPD, GERD/Reflux, Hyperlipidemia, Osteoarthritis (OA), Syncope, Thyroid Disorder Additional Past Medical History / Comment(s): kidney stones, hypoglycemia, chronic neck and L shoulder, lower back pain. Hx L facial and L ankle fxs, sinus problems, vertigo, falls in past due to syncope, low BP at times. Fusion of sacrum and iliac crest-per , spinal cord stimulator in cervical spine, diverticulosis/diverticulitis. 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 rectocele repair, d&c , colon resection 05/15/24 Past Anesthesia/Blood Transfusion Reactions: Previous Problems w/ Anesthesia Additional Past Anesthesia/Blood Transfusion Reaction / Comment(s): "Takes l onger to wake up from anesthesia." - just once Past Psychological History: ADD/ADHD, Anxiety, Depression Smoking Status: Former smoker Past Alcohol Use History: None Reported Past Drug Use History: None Reported - Past Family History Mother History Unknown: Yes Family Medical History: Cancer Additional Family Medical History / Comment(s): lung Father Family Medical History: Asthma, COPD, Osteoarthritis (OA) Additional Family Medical History / Comment(s): Father at age 80 yrs. Sister(s) Family Medical History: Diabetes Mellitus, Thyroid Disorder General Exam - General Exam Comments Initial Comments: PHYSICAL EXAM: General Impression: Alert and oriented x3, not in acute distress HEENT: Normocephalic atraumatic, extra-ocular movements intact, pupils equal and reactive to light bilaterally, mucous membranes moist. Cardiovascular: Heart regular rate and rhythm Chest: Able to complete full sentences, no retractions, no tachypnea Abdomen: abdomen soft, left upper quadrant tenderness, non-distended, no organomegaly Musculoskeletal: Pulses present and equal in all extremities, no peripheral edema Motor: no focal deficits noted Neurological: CN II-XII grossly intact, no focal motor or sensory deficits noted Skin: Intact with no visualized rashes Psych: Normal affect and mood Limitations: no limitations Course Vital Signs 09/05/24 09/05/24 09/05/24 07:24 09:26 10:10 Temperature 97.8 F 98.2 F 98.3 F Pulse Rate 62 57 L 61 Respiratory 18 16 17 Rate Blood Pressure 110/55 108/75 105/70 O2 Sat by Pulse 97 97 97 Oximetry 09/05/24 11:36 Temperature Pulse Rate 59 L Respiratory 19 Rate Blood Pressure 108/64 O2 Sat by Pulse 97 Oximetry EKG Findings - EKG Comments: EKG Findings:: My EKG interpretation: Ventricular rate 58, sinus bradycardia,. 08/24/2021, QRS 96, QTc 440. No MT prolongation, no QTC prolongation, no ST or T- wave changes noted. EKG Overall, this EKG is unremarkable Medical Decision Making - Medical Decision Making Was pt. sent in by a medical professional or institution (MARLO Maldonado, ELECTRIC TRUCK OPERATOR, urgent care, hospital, or [facility]...) When possible be specific @ -No Did you speak to anyone other than the patient for history (EMS, parent, family, police, friend...)? What history was obtained from this source @ -No Did you review nursing and triage notes (agree or disagree)? Why? @ -I reviewed and agree with nursing and triage notes Were old charts reviewed (outside hosp., previous admission, EMS record, old EKG, old radiological studies, urgent care reports/EKG's, [facility] records)? Report findings @ -No old charts were reviewed Differential Diagnosis (chest pain, altered mental status, abdominal pain women, abdominal pain men, vaginal bleeding, musculoskeletal, weakness, fever, dyspnea, syncope, headache, dizziness, GI bleed, back pain, seizure, CVA, palpatations, mental health)? @ -Differential Abdominal Pain Women: Appendicitis, Cholecystitis, diverticulosis, ischemic bowel, pancreatitis, hepatitis, UTI, gastroenteritis, AAA, incarcerated hernia, bowel obstruction, constipation, inflammatory bowel, hepatitis, peptic ulcer disease, splenic infarction, perforated viscus, vulvitis, ovarian torsion, PID, kidney stone, placenta abruption, this is not meant to be an all-inclusive list EKG interpreted by me (3pts min.). @ -None done X-rays interpreted by me (1pt min.). @ -None done CT interpreted by me (1pt min.). @ -CT ab pelvis shows no acute processes U/S interpreted by me (1pt. min.). @ -None done What testing was considered but not performed or refused? (CT, X-rays, U/S, labs)? Why? @ -None What meds were considered but not given or refused? Why? @ -None Was smoking cessation discussed for >3mins.? @ -No Were there social determinants of health that impacted care today? How? (Homelessness, low income, unemployed, alcoholism, drug addiction, transportation, low edu. Level, literacy, decrease access to med. care, [facility], rehab)? @ -No Was there de-escalation of care discussed even if they declined (Discuss DNR or withdrawal of care, Hospice)? DNR status @ -No What co-morbidities impacted this encounter? (DM, HTN, Smoking, COPD, CAD, Cancer, CVA, ARF, Chemo, Hep., AIDS, mental health diagnosis, sleep apnea, morbid obesity)? @ -None Was patient admitted / discharged? Hospital course, mention meds given and route , prescriptions, significant lab abnormalities, going to OR and other pertinent info. @ -59-year-old female chronic pain presents to the emergency department with acute left upper quadrant abdominal pain. Vital signs stable. Abdomen is soft and benign. Laboratory evaluation obtained. Lactic acidosis 3.0. Urinalysis positive for UTI. Rest of labs within acceptable limits. CT imaging is jose de jesus cute. Clinical presentation concerning for pyelonephritis given 1 dose of ceftriaxone. Repeat lactic is normal. Patient observed emergency department for approximately 5 hours. Patient was prescribed antibiotics and discharged. Did you discuss the management of the patient with other professionals (professionals i.e. , PA, ELECTRIC TRUCK OPERATOR, lab, RT, psych nurse, socially responsible investment adviser, b2b managed service sales exec, teacher, ict customer support officer, case investigator)? Give summary @ -No Was critical care preformed (if so, how long)? @ -No Undiagnosed new problem with uncertain prognosis? @ -No Drug Therapy requiring intensive monitoring for toxicity (Heparin, Nitro, Insulin, Cardizem)? @ -No Were any procedures done? @ -No Diagnosis/symptom? Acute, or Chronic, or Acute on Chronic? Uncomplicated (without systemic symptoms) or Complicated (systemic symptoms)? @ -UTI Side effects of treatment? @ -No Exacerbation, Progression, or Severe Exacerbation? @ -No Poses a threat to life or bodily function? How? (Chest pain, [place], [place], pneumonia, PE, COPD, DKA, ARF, appy, cholecystitis, CVA, Diverticulitis, Homicidal, Suicidal, threat to staff... and all critical care pts) @ -yes - Lab Data Result diagrams: 09/05/24 08:18 09/05/24 08:18 Lab Results 09/05/24 09/05/24 09/05/24 Range/Units 08:18 08:18 08:18 WBC 9.3 (3.8-10.6) k/uL RBC 3.85 (3.80-5.40) m/uL Hgb 11.3 L (11.4-16.0) gm/dL Hct 34.0 (34.0-46.0) % MCV 88.4 (80.0-100.0) fL MCH 29.5 (25.0-35.0) pg MCHC 33.3 (31.0-37.0) g/dL RDW 13.7 (11.5-15.5) % Plt Count 239 (150-450) k/uL MPV 8.0 Neutrophils % 58 % Lymphocytes % 31 % Monocytes % 6 % Eosinophils % 3 % Basophils % 1 % Neutrophils # 5.4 (1.3-7.7) k/uL Lymphocytes # 2.9 (1.0-4.8) k/uL Monocytes # 0.6 (0-1.0) k/uL Eosinophils # 0.2 (0-0.7) k/uL Basophils # 0.0 (0-0.2) k/uL Sodium 137 (137-145) mmol/L Potassium 4.9 (3.5-5.1) mmol/L Chloride 103 (98-107) mmol/L Carbon Dioxide 28 (22-30) mmol/L Anion Gap 6 mmol/L BUN 7 (7-17) mg/dL Creatinine 0.81 (0.52-1.04) mg/dL Est GFR (CKD-EPI)AfAm >90 (>60 ml/min/1.73 sqM) Est GFR (CKD-EPI)NonAf 80 (>60 ml/min/1.73 sqM) Glucose 98 (74-99) mg/dL Lactic Ac Sepsis Rflx Plasma Lactic Acid Chito 3.0 H* (0.7-2.0) mmol/L Calcium 9.1 (8.4-10.2) mg/dL Total Bilirubin 0.3 (0.2-1.3) mg/dL AST 28 (14-36) U/L ALT 19 (4-34) U/L Alkaline Phosphatase 69 (38-126) U/L Total Protein 6.8 (6.3-8.2) g/dL Albumin 4.2 (3.5-5.0) g/dL Lipase 60 (23-300) U/L Urine Color Urine Appearance (Clear) Urine pH (5.0-8.0) Ur Specific [place] (1.001-1.035) Urine Protein (Negative) Urine Glucose (UA) (Negative) Urine Ketones (Negative) Urine Blood (Negative) Urine Nitrite (Negative) Urine Bilirubin (Negative) Urine Urobilinogen (<2.0) mg/dL Ur Leukocyte Esterase (Negative) Urine RBC (0-5) /hpf Urine WBC (0-5) /hpf Ur Squamous Epith Cells (0-4) /hpf Urine Bacteria (None) /hpf 09/05/24 09/05/24 Range/Units 08:24 08:59 WBC (3.8-10.6) k/uL RBC (3.80-5.40) m/uL Hgb (11.4-16.0) gm/dL Hct (34.0-46.0) % MCV (80.0-100.0) fL MCH (25.0-35.0) pg MCHC (31.0-37.0) g/dL RDW (11.5-15.5) % Plt Count (150-450) k/uL MPV Neutrophils % % Lymphocytes % % Monocytes % % Eosinophils % % Basophils % % Neutrophils # (1.3-7.7) k/uL Lymphocytes # (1.0-4.8) k/uL Monocytes # (0-1.0) k/uL Eosinophils # (0-0.7) k/uL Basophils # (0-0.2) k/uL Sodium (137-145) mmol/L Potassium (3.5-5.1) mmol/L Chloride (98-107) mmol/L Carbon Dioxide (22-30) mmol/L Anion Gap mmol/L BUN (7-17) mg/dL Creatinine (0.52-1.04) mg/dL Est GFR (CKD-EPI)AfAm (>60 ml/min/1.73 sqM) Est GFR (CKD-EPI)NonAf (>60 ml/min/1.73 sqM) Glucose (74-99) mg/dL Lactic Ac Sepsis Rflx Y Plasma Lactic Acid [place] (0.7-2.0) mmol/L Calcium (8.4-10.2) mg/dL Total Bilirubin (0.2-1.3) mg/dL AST (14-36) U/L ALT (4-34) U/L Alkaline Phosphatase (38-126) U/L Total Protein (6.3-8.2) g/dL Albumin (3.5-5.0) g/dL Lipase (23-300) U/L Urine Color Colorless Urine Appearance Clear (Clear) Urine pH 6.0 (5.0-8.0) Ur Specific [place] 1.002 (1.001-1.035) Urine Protein Negative (Negative) Urine Glucose (UA) Negative (Negative) Urine Ketones Negative (Negative) Urine Blood Negative (Negative) Urine Nitrite Negative (Negative) Urine Bilirubin Negative (Negative) Urine Urobilinogen <2.0 (<2.0) mg/dL Ur Leukocyte Esterase Large H (Negative) Urine RBC 2 (0-5) /hpf Urine WBC 38 H (0-5) /hpf Ur Squamous Epith Cells 2 (0-4) /hpf Urine Bacteria Many H (None) /hpf Disposition Clinical Impression: UTI (urinary tract infection) Disposition: HOME SELF-CARE Condition: Fair Prescriptions: Cefpodoxime Proxetil [Vantin] 200 mg PO Q12HR 10 Days #20 tab Is patient prescribed a controlled substance at d/c from ED?: No Referrals: Ihsan Ding DO [Primary Care Provider] - 1-2 days Time of Disposition: 12:45
[2024-09-05 08:33] LABS: Basophils % (A) 1 %; Eosinophils # (A) 0.2 k/uL (0-0.7); Eosinophils % (A) 3 %; HGB 11.3 gm/dL (11.4-16.0); Lymphocytes # (A) 2.9 k/uL (1.0-4.8); Lymphocytes % (A) 31 %; MCH 29.5 pg (25.0-35.0); MCHC 33.3 g/dL (31.0-37.0); MCV 88.4 fL (80.0-100.0); Monocytes # (A) 0.6 k/uL (0-1.0); Monocytes % (A) 6 %; Neutrophils # (A) 5.4 k/uL (1.3-7.7); Neutrophils % (A) 58 %; Platelet Count 239 k/uL (150-450); RBC 3.85 m/uL (3.80-5.40); RDW 13.7 % (11.5-15.5); WBC 9.3 k/uL (3.8-10.6)
[2024-09-05 08:37] LABS: Appearance,Urine Clear (Clear); Bacteria,Urine Many /hpf; Bilirubin,Urine Negative (Negative); Blood,Urine Negative (Negative); Color,Urine Colorless; Glucose,Urine (UA) Negative (Negative); Ketones,Urine Negative (Negative); Leukocyte Esterase,Urine Large (Negative); Nitrite,Urine Negative (Negative); Protein,Urine Negative (Negative); RBC,Urine 2 /hpf (0-5); Specific Gravity,Urine 1.002 (1.001-1.035); Squamous Epithelial Cell,Urine 2 /hpf (0-4); Urobilinogen,Urine <2.0 mg/dL (<2.0); WBC,Urine 38 /hpf (0-5)
[2024-09-05 08:51] LABS: ALT 19 U/L (4-34); AST 28 U/L (14-36); African American GFR (CKD) >90 (>60 ml/min/1.73 sqM); Albumin 4.2 g/dL (3.5-5.0); Alkaline Phosphatase 69 U/L (38-126); Anion Gap 6 mmol/L; Blood Urea Nitrogen 7 mg/dL (7-17); Calcium 9.1 mg/dL (8.4-10.2); Carbon Dioxide 28 mmol/L (22-30); Chloride 103 mmol/L (98-107); Glucose 98 mg/dL (74-99); Lipase 60 U/L (23-300); Non-African American GFR(CKD) 80 (>60 ml/min/1.73 sqM); Potassium 4.9 mmol/L (3.5-5.1); Sodium 137 mmol/L (137-145); Total Bilirubin 0.3 mg/dL (0.2-1.3); Total Protein 6.8 g/dL (6.3-8.2)
[2024-09-05] MEDS: SODIUM CHLORIDE 0.9% 1,000 ML IV STA (09:26)
[2024-09-05] MEDS: MORPHINE SULFATE 4 MG/ML SYRINGE IVP PRN (09:27)
--- NOTE | 2024-09-05 09:27 | CT ---
EXAMINATION TYPE: CT abdomen pelvis w con DATE OF EXAM: 09/05/2024 9:10 AM COMPARISON: 07/11/2024 CLINICAL INDICATION: Female, 59 years old with history of abdominal pain, history of diverticulitis; LUQ pain TECHNIQUE: Axial CT abdomen pelvis w con;Sagittal and coronal reformats were created on a separate w orkstation. Contrast used:100 mL of Isovue 300 with IV Contrast, (none if empty) Oral contrast used: without Oral Contrast (none if empty) CT DLP: 1037.9 mGycm, Automated exposure control for dose reduction was used. FINDINGS: LOWER CHEST: Unremarkable ABDOMEN LIVER: Unremarkable GALLBLADDER AND BILE DUCTS: Gallbladder is surgically absent with mild intrahepatic and extra hepatic biliary dilatation likely physiologic and a postcholecystectomy change. No evidence of choledocholit hiasis. PANCREAS: Unremarkable. SPLEEN: Unremarkable. ADRENAL GLANDS: Unremarkable. KIDNEYS AND URETERS: No evidence of hydronephrosis or renal calculus. The ureters are unremarkable. PELVIS BLADDER: No evidence for wall thickening or mass given limitations of exam. REPRODUCTIVE: The uterus is surgically absent. ABDOMEN & PELVIS STOMACH AND BOWEL: Postsurgical changes gastroesophageal junction with small hiatal hernia. No eviden ce of bowel obstruction. Postsurgical changes to the sigmoid colon, no evidence for obstruction or ma ss. Moderate amount stool throughout the colon. PERITONEUM/RETROPERITONEUM: No evidence of pneumoperi toneum or free fluid. VASCULATURE: No evidence of aortic aneurysm. MUSCULOSKELETAL: No acute osseous abnormalities. Moderate disc degeneration changes are present throu ghout the thoracolumbar spine. Fixation hardware at L4-L5 and S1 appears intact. Right sacroiliac capri nt fixation appears intact. LYMPH NODES: No gross evidence for lymphadenopathy. SOFT TISSUE/ABDOMINAL WALL: Fat-containing ventral wall hernia postsurgical change. Postsurgical rothman ges to the ventral wall. No stimulator device with bleed extending superiorly. IMPRESSION: 1. Post surgical changes the colon. No evidence for obstruction. No evidence for acute abdominal pro cess. 2. Moderate amount stool throughout the colon. 3. Postsurgical changes of the spine appear intact. 4. Small hiatal hernia and post surgical change the gastroesophageal junction. [facility], , 09/05/2024 9:25 AM
[2024-09-05] MEDS ORDERED: MORPHINE SULFATE 4 MG/ML SYRINGE IVP PRN (11:15)
[2024-09-05] MEDS: cefTRIAXone IN SWFI 1,000 MG/10 ML SYRINGE IVP STA (11:41)
[2024-09-05 13:38] VITALS: BP 109/66; PULSE 63; RESP 16; TEMP 98.6
== END 2024-09-05 13:38 | disposition home or self-care (01) ==
LOC: EC 07:23
DX: N39.0 Urinary tract infection, site not specified (principal); R00.1 Bradycardia, unspecified; Z88.0 Allergy status to penicillin; Z87.891 Personal history of nicotine dependence
CPT/HCPCS: 36415; 93005; 80053; 83605; 83690; 85025; 81001; 87086; 74177; 99285; 96374; 96375; 96361 ×3; J2270; J0696; Q9967

== ENCOUNTER 2024-09-11 16:31 | Emergency (ER) | payer MEDICARE, OTHER ==
[2024-09-11 16:39] VITALS: RESP 20; TEMP 98.4
--- NOTE | 2024-09-11 16:47 | ED ---
General Adult HPI - General Source: patient, RN notes reviewed Mode of arrival: ambulatory Limitations: no limitations <Angélica Lei - Last Filed: 09/11/24 16:46> - General Source: patient, RN notes reviewed, old records reviewed Mode of arrival: ambulatory Limitations: no limitations - History of Present Illness -: hour(s) (8) Location: chest Severity scale (1-10): 5 Quality: aching Consistency: constant Improves with: none Worsens with: none Associated Symptoms: chest pain Treatments Prior to Arrival: none <Curt Naranjo - Last Filed: 09/13/24 07:50> - General Chief complaint: Chest Pain Stated complaint: chest pain Time Seen by Provider: 09/11/24 16:35 - History of Present Illness Initial comments: Quick note: 59-year-old female presents to the emergency department for evaluation of chest discomfort. Patient reports that this started around 9 or 10 this morning. She states that pain is in the left side of her chest. She reports taking an aspirin 81 mg. (Angélica Lei) This is a 5-year-old female who woke up with chest pain today. And then chest pain came on around 10 AM and is persistent, history of angina no history of heart disease no stents history of stress test history of cardiac catheterization normal (Curt Naranjo) - Related Data Home Medications Medication Instructions Recorded Confirmed Ezetimibe [Zetia] 10 mg PO HS 09/05/14 08/10/24 Levothyroxine Sodium [Synthroid] 25 mcg PO DAILY 03/13/16 08/10/24 Omeprazole 40 mg PO HS 11/13/16 08/10/24 clonazePAM [KlonoPIN] 0.5 mg PO HS 05/03/17 08/10/24 Methylphenidate HCl 20 mg PO TID@0500,1200,1700 09/09/18 08/10/24 Atorvastatin Calcium [Lipitor] 10 mg PO HS 10/06/19 08/10/24 estradioL [Estrace] 0.5 mg PO DAILY 10/06/19 08/10/24 Citalopram Hydrobromide [CeleXA] 40 mg PO DAILY 02/09/22 08/10/24 Fluticasone Nasal [place] [Flonase 1 spr EA NOSTRIL BID 02/04/23 08/10/24 Nasal [place]] Brexpiprazole [Rexulti] 0.25 mg PO HS 09/18/23 08/10/24 Cetirizine HCl [Zyrtec] 10 mg PO HS 02/03/24 08/10/24 Varenicline [Chantix Continuing 1 mg PO BID 05/08/24 08/10/24 Pack] Albuterol Inhaler [Ventolin Hfa 2 puff INHALATION RT-QID PRN 05/13/24 08/10/24 Inhaler] busPIRone HCl [Buspar] 10 mg PO BID 05/13/24 08/10/24 Previous Rx's Medication Instructions Recorded Docusate [Colace] 100 mg PO BID #20 capsule 05/21/24 diazePAM [Valium] 5 mg PO DAILY PRN 1 Days #2 tab 07/26/24 Diclofenac Sodium Gel [Voltaren 1% 2 - 4 gm TOPICAL TID PRN 30 Days 08/02/24 Gel] #1 each Ibuprofen [Motrin] 600 mg PO Q6HR PRN #40 tab 08/02/24 oxyCODONE HCL/ACETAMINOPHEN 1 each PO TID PRN 30 Days #90 tab 08/02/24 [Percocet 7.5-325 mg Tablet] oxyCODONE HCL/ACETAMINOPHEN 1 tab PO TID PRN 30 Days #90 tab 08/02/24 [Percocet 7.5-325 mg] tiZANidine HCL 2 mg PO HS 30 Days #30 tab 08/02/24 Cefpodoxime Proxetil [Vantin] 200 mg PO Q12HR 10 Days #20 tab 09/05/24 Allergies Allergy/AdvReac Type Severity Reaction Status Date / Time Penicillins Allergy Childhood Verified 09/05/24 07:24 Rash morphine AdvReac Chest Pain Verified 09/11/24 16:39 Review of Systems ROS Other: All systems not noted in ROS Statement are negative. <Angélica Lei - Last Filed: 09/11/24 16:46> ROS Other: All systems not noted in ROS Statement are negative. <Curt Naranjo - Last Filed: 09/13/24 07:50> ROS Statement: Those systems with pertinent positive or pertinent negative responses have been documented in the HPI. Past Medical History Past Medical History: Asthma, COPD, GERD/Reflux, Hyperlipidemia, Osteoarthritis (OA), Syncope, Thyroid Disorder Additional Past Medical History / Comment(s): kidney stones, hypoglycemia, chronic neck and L shoulder, lower back pain. Hx L facial and L ankle fxs, sinus problems, vertigo, falls in past due to syncope, low BP at times. Fusion of sacrum and iliac crest-per , spinal cord stimulator in cervical spine, diverticulosis/diverticulitis. 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 rectocele repair, d&c , colon resection 05/15/24 Past Anesthesia/Blood Transfusion Reactions: Previous Problems w/ Anesthesia Additional Past Anesthesia/Blood Transfusion Reaction / Comment(s): "Takes longer to wake up from anesthesia." - just once Past Psychological History: ADD/ADHD, Anxiety, Depression Smoking Status: Former smoker Past Alcohol Use History: None Reported Past Drug Use History: None Reported - Past Family History Mother History Unknown: Yes Family Medical History: Cancer Additional Family Medical History / Comment(s): lung Father Family Medical History: Asthma, COPD, Osteoarthritis (OA) Additional Family Medical History / Comment(s): Father at age 80 yrs. Sister(s) Family Medical History: Diabetes Mellitus, Thyroid Disorder <Angélica Lei - Last Filed: 09/11/24 16:46> General Exam Limitations: no limitations <Angélica Lei - Last Filed: 09/11/24 16:46> General appearance: alert, in no apparent distress Head exam: Present: atraumatic, normocephalic, normal inspection Eye exam: Present: normal appearance, PERRL, EOMI. Absent: scleral icterus, conjunctival injection, periorbital swelling ENT exam: Present: normal exam, mucous membranes moist Neck exam: Present: normal inspection. Absent: tenderness, meningismus, lymphadenopathy Respiratory exam: Present: normal lung sounds bilaterally. Absent: respiratory distress, wheezes, rales, rhonchi, stridor Cardiovascular Exam: Present: regular rate, normal rhythm, normal heart sounds. Absent: systolic murmur, diastolic murmur, rubs, gallop, clicks GI/Abdominal exam: Present: soft, normal bowel sounds. Absent: distended, te nderness, guarding, rebound, rigid Extremities exam: Present: normal inspection, full ROM, normal capillary refill. Absent: tenderness, pedal edema, joint swelling, calf tenderness Back exam: Present: normal inspection Neurological exam: Present: alert, oriented X3, CN II-XII intact Psychiatric exam: Present: normal affect, normal mood Skin exam: Present: warm, dry, intact, normal color. Absent: rash <Curt Naranjo - Last Filed: 09/13/24 07:50> - General Exam Comments Initial Comments: Visual Physical Exam Vital signs reviewed General: Well-appearing, nontoxic, no acute distress. Head: Normocephalic, atraumatic Eyes: PERRLA, EOMI ENT: Airway patent Chest: Nonlabored breathing Skin: No visual rash, normal skin tone Neuro: Alert and oriented 3 Musculoskeletal: No gross abnormalities (Angélica Lei) Course <Curt Naranjo - Last Filed: 09/13/24 07:50> Vital Signs 09/11/24 09/11/24 16:37 18:24 Temperature 98.4 F Pulse Rate 59 L 56 L Respiratory 20 20 Rate Blood Pressure 134/77 132/80 O2 Sat by Pulse 99 97 Oximetry - Reevaluation(s) Reevaluation #1: 09/11/24 17:58 Medical records reviewed (Curt Naranjo) Reevaluation #2: 09/11/24 17:58 Patient's chest pain is intermittent but improved (Curt Naranjo) Reevaluation #3: 09/11/24 17:58 Patient informed of results and questions answered (Curt Naranjo) Reevaluation #4: Was pt. sent in by a medical professional or institution (, PA, EMERGENCY SERVICES DIRECTOR, urgent care, hospital, or retirement...) When possible be specific @ -no Did you speak to anyone other than the patient for history (EMS, parent, family, police, friend...)? What history was obtained from this source @ -no Did you review nursing and triage notes (agree or disagree)? Why? @ -agree Are old charts reviewed (outside hosp., previous admission, EMS record, old EKG, old radiological studies, urgent care reports/EKG's, retirement records)? Report findings @ -yes Differential Diagnosis (chest pain, altered mental status, abdominal pain women, abdominal pain men, vaginal bleeding, weakness, fever, dyspnea, syncope, headache, dizziness, GI bleed, back pain, seizure, CVA, palpatations, mental health, musculoskeletal)? @ -prior EKG interpreted by me (3pts min.). @ -yes X-rays interpreted by me (1pt min.). @ -yes negative for acute disease CT interpreted by me (1pt min.). @ -no U/S interpreted by me (1pt. min.). @ -no What testing was considered but not performed or refused? (CT, X-rays, U/S, labs)? Why? @ -none What meds were considered but not given or refused? Why? @ -none Did you discuss the management of the patient with other professionals (professionals i.e. , PA, EMERGENCY SERVICES DIRECTOR, lab, RT, psych nurse, social media director, salon shampoo assistant, teacher, toxics program officer, case management coordinator)? Give summary @ -no Was smoking cessation discussed for >3mins.? @ -no Was critical care preformed (if so, how long)? @ -no Were there social determinants of health that impacted care today? How? (Homelessness, low income, unemployed, alcoholism, drug addiction, transportation, low edu. Level, literacy, decrease access to med. care, [facility], rehab)? @ -none Was there de-escalation of care discussed even if they declined (Discuss DNR or withdrawal of care, Hospice)? DNR status @ -no What co-morbidities impacted this encounter? (DM, HTN, Smoking, COPD, CAD, Cancer, CVA, ARF, Chemo, Hep., AIDS, mental health diagnosis, sleep apnea, morbid obesity)? @ -none Was patient admitted / discharged? Hospital course, mention meds given and route, prescriptions, significant lab abnormalities, going to OR and other pertinent info. @ - 59 female to ER for evaluation of chest pain left-sided chest pain with angina. Normal EKG normal troponin patient can be discharged home Discharge Undiagnosed new problem with uncertain prognosis? @ -no Drug Therapy requiring intensive monitoring for toxicity (Heparin, Nitro, Insulin, Cardizem)? @ -no Were any procedures done? @ -no Diagnosis/symptom? @ -Chest pain Acute, or Chronic, or Acute on Chronic? @ -Acute Uncomplicated (without systemic symptoms) or Complicated (systemic symptoms)? @ -Complicated Side effects of treatment? @ -no Exacerbation, Progression, or Severe Exacerbation? @ -exacerbation Poses a threat to life or bodily function? How? (Chest pain, [place], [place], pneumonia, PE, COPD, DKA, ARF, appy, cholecystitis, CVA, Diverticulitis, Homicidal, Suicidal, threat to staff... and all critical care pts) @ -yes with chest pain (Curt Naranjo) Reevaluation #5: Differential Chest Pain: Stable Angina, Unstable Angina, STEMI, NSTEMI Aortic Dissection, Pneumothorax, Musculoskeletal, Esophageal Spasm GERD, Cholecystitis, Pancreatitis, Zoster, this is not meant to be an all-inclusive list. (Curt Naranjo) Medical Decision Making <Angélica Lei - Last Filed: 09/11/24 16:46> - Lab Data Result diagrams: 09/11/24 17:00 09/11/24 17:00 - EKG Data -: EKG Interpreted by Me - Radiology Data Radiology results: report reviewed (Chest x-ray is negative for acute disease), image reviewed <Curt Naranjo - Last Filed: 09/13/24 07:50> - Medical Decision Making Quick note preformed and electronically signed by Angélica Lei PA-C (Angélica Lei) 59 female to ER for evaluation of chest pain left-sided chest pain with angina. Normal EKG normal troponin patient can be discharged home (Curt Naranjo) - Lab Data Lab Results 09/11/24 09/11/24 09/11/24 Range/Units 17:00 17:00 17:00 WBC 10.5 (3.8-10.6) k/uL RBC 3.90 (3.80-5.40) m/uL Hgb 11.5 (11.4-16.0) gm/dL Hct 34.3 (34.0-46.0) % MCV 88.0 (80.0-100.0) fL MCH 29.4 (25.0-35.0) pg MCHC 33.4 (31.0-37.0) g/dL RDW 13.7 (11.5-15.5) % Plt Count 258 (150-450) k/uL MPV 8.1 Neutrophils % 59 % Lymphocytes % 33 % Monocytes % 4 % Eosinophils % 3 % Basophils % 0 % Neutrophils # 6.1 (1.3-7.7) k/uL Lymphocytes # 3.4 (1.0-4.8) k/uL Monocytes # 0.5 (0-1.0) k/uL Eosinophils # 0.3 (0-0.7) k/uL Basophils # 0.1 (0-0.2) k/uL PT 10.0 (10.0-12.5) sec INR 0.9 (<1.2) APTT 22.7 (22.0-30.0) sec Sodium 139 (137-145) mmol/L Potassium 4.3 (3.5-5.1) mmol/L Chloride 104 (98-107) mmol/L Carbon Dioxide 24 (22-30) mmol/L Anion Gap 11 mmol/L BUN 6 L (7-17) mg/dL Creatinine 0.73 (0.52-1.04) mg/dL Est GFR (CKD-EPI)AfAm >90 (>60 ml/min/1.73 sqM) Est GFR (CKD-EPI)NonAf >90 (>60 ml/min/1.73 sqM) Glucose 127 H (74-99) mg/dL Calcium 8.9 (8.4-10.2) mg/dL Magnesium 2.0 (1.6-2.3) mg/dL Total Bilirubin 0.3 (0.2-1.3) mg/dL AST 22 (14-36) U/L ALT 19 (4-34) U/L Alkaline Phosphatase 93 (38-126) U/L Troponin I (0.000-0.034) ng/mL Total Protein 7.0 (6.3-8.2) g/dL Albumin 4.2 (3.5-5.0) g/dL 09/11/24 Range/Units 17:00 WBC (3.8-10.6) k/uL RBC (3.80-5.40) m/uL Hgb (11.4-16.0) gm/dL Hct (34.0-46.0) % MCV (80.0-100.0) fL MCH (25.0-35.0) pg MCHC (31.0-37.0) g/dL RDW (11.5-15.5) % Plt Count (150-450) k/uL MPV Neutrophils % % Lymphocytes % % Monocytes % % Eosinophils % % Basophils % % Neutrophils # (1.3-7.7) k/uL Lymphocytes # (1.0-4.8) k/uL Monocytes # (0-1.0) k/uL Eosinophils # (0-0.7) k/uL Basophils # (0-0.2) k/uL PT (10.0-12.5) sec INR (<1.2) APTT (22.0-30.0) sec Sodium (137-145) mmol/L Potassium (3.5-5.1) mmol/L Chloride (98-107) mmol/L Carbon Dioxide (22-30) mmol/L Anion Gap mmol/L BUN (7-17) mg/dL Creatinine (0.52-1.04) mg/dL Est GFR (CKD-EPI)AfAm (>60 ml/min/1.73 sqM) Est GFR (CKD-EPI)NonAf (>60 ml/min/1.73 sqM) Glucose (74-99) mg/dL Calcium (8.4-10.2) mg/dL Magnesium (1.6-2.3) mg/dL Total Bilirubin (0.2-1.3) mg/dL AST (14-36) U/L ALT (4-34) U/L Alkaline Phosphatase (38-126) U/L Troponin I <0.012 (0.000-0.034) ng/mL Total Protein (6.3-8.2) g/dL Albumin (3.5-5.0) g/dL Disposition <Angélica Lei - Last Filed: 09/11/24 16:46> Time of Disposition: 18:00 <Curt Naranjo - Last Filed: 09/13/24 07:50> Clinical Impression: Atypical chest pain, Chest wall syndrome, Chest pain Disposition: ADMITTED IP TO THIS [facility] Condition: Fair Instructions (If sedation given, give patient instructions): Chest Pain (ED) Referrals: Ihsan Ding DO [Primary Care Provider] - 1-2 days
[2024-09-11 17:11] LABS: Basophils # (A) 0.1 k/uL (0-0.2); Basophils % (A) 0 %; Eosinophils # (A) 0.3 k/uL (0-0.7); Eosinophils % (A) 3 %; HCT 34.3 % (34.0-46.0); HGB 11.5 gm/dL (11.4-16.0); Lymphocytes # (A) 3.4 k/uL (1.0-4.8); Lymphocytes % (A) 33 %; MCH 29.4 pg (25.0-35.0); MCHC 33.4 g/dL (31.0-37.0); Mean Platelet Volume 8.1; Monocytes # (A) 0.5 k/uL (0-1.0); Monocytes % (A) 4 %; Neutrophils # (A) 6.1 k/uL (1.3-7.7); Neutrophils % (A) 59 %; Platelet Count 258 k/uL (150-450); RDW 13.7 % (11.5-15.5); WBC 10.5 k/uL (3.8-10.6)
[2024-09-11 17:20] LABS: INR 0.9 (<1.2); Partial Thromboplastin Time 22.7 sec (22.0-30.0)
[2024-09-11 17:24] LABS: ALT 19 U/L (4-34); AST 22 U/L (14-36); African American GFR (CKD) >90 (>60 ml/min/1.73 sqM); Albumin 4.2 g/dL (3.5-5.0); Alkaline Phosphatase 93 U/L (38-126); Anion Gap 11 mmol/L; Blood Urea Nitrogen 6 mg/dL (7-17); Calcium 8.9 mg/dL (8.4-10.2); Carbon Dioxide 24 mmol/L (22-30); Chloride 104 mmol/L (98-107); Glucose 127 mg/dL (74-99); Non-African American GFR(CKD) >90 (>60 ml/min/1.73 sqM); Potassium 4.3 mmol/L (3.5-5.1); Sodium 139 mmol/L (137-145); Total Bilirubin 0.3 mg/dL (0.2-1.3)
--- NOTE | 2024-09-11 17:41 | XR ---
EXAMINATION TYPE: XR chest 2V DATE OF EXAM: 09/11/2024 5:28 PM COMPARISON: Chest radiographs from 07/23/2024 CLINICAL INDICATION: Female, 59 years old with history of Chest Pain; TECHNIQUE: XR chest 2V Frontal and lateral views of the chest. FINDINGS: Lungs/Pleura: There is no evidence of pleural effusion, focal consolidation, or pneumothorax. Pulmonary vascularity: Unremarkable. Heart/mediastinum: Cardiomediastinal silhouette is unremarkable. Musculoskeletal: No acute osseous pathology. There is fixation hardware in the lower cervical spine. Other findings: There are stimulator leads project over the upper spine. IMPRESSION: No acute cardiopulmonary disease/process. [facility], , 09/11/2024 5:39 PM
[2024-09-11] MEDS: traMADol 50 MG STARTER PACK 3 TAB BTL PO STA (18:17)
[2024-09-11] MEDS: traMADol 50 MG TAB PO STA (18:18)
[2024-09-11] MEDS: IBUPROFEN 600 MG STARTER PACK 4 TAB BTL PO STA (18:18)
[2024-09-11] MEDS: KETOROLAC 15 MG/ML 1 ML VIAL IM STA (18:18)
[2024-09-11 18:25] VITALS: BP 132/80; PULSE 56
== END 2024-09-11 18:24 | disposition other institution (70) ==
LOC: EC 16:31
DX: I20.9 Angina pectoris, unspecified (principal); Z87.891 Personal history of nicotine dependence; Z88.0 Allergy status to penicillin; Z88.5 Allergy status to narcotic agent
CPT/HCPCS: 36415; 93005; 80053; 83735; 84484; 85025; 85610; 85730; 71046; 99285; 96372; J1885

== ENCOUNTER 2024-09-17 14:40 | Emergency (ER) | payer MEDICARE, OTHER ==
[2024-09-17 14:43] VITALS: RESP 18; TEMP 98.4
--- NOTE | 2024-09-17 15:09 | ED ---
Abdominal Pain HPI - General Chief Complaint: Abdominal Pain Stated Complaint: ABD pain Time Seen by Provider: 09/17/24 14:50 Source: patient, RN notes reviewed Mode of arrival: ambulatory Limitations: no limitations - History of Present Illness Initial Comments: This is a 59-year-old female who presents to the emergency department for abdominal pain. Patient has a history of diverticulitis requiring a hemicolectomy. 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 States that this morning she started experiencing left lower quadrant abdominal pain and it felt like another bout of diverticulitis. Denies any nausea/vomiting or changes in bowel or bladder habits. States that her at home pain medication was not effectively managing this. MD Complaint: abdominal pain - Related Data Home Medications Medication Instructions Recorded Confirmed Ezetimibe [Zetia] 10 mg PO HS 09/05/14 09/14/24 Levothyroxine Sodium [Synthroid] 25 mcg PO QAM 03/13/16 09/14/24 Omeprazole 40 mg PO HS 11/13/16 09/14/24 clonazePAM [KlonoPIN] 0.5 mg PO HS 05/03/17 09/14/24 Methylphenidate HCl 20 mg PO TID@0500,1200,1700 09/09/18 09/14/24 Atorvastatin Calcium [Lipitor] 10 mg PO HS 10/06/19 09/14/24 estradioL [Estrace] 0.5 mg PO DAILY 10/06/19 09/14/24 Citalopram Hydrobromide [CeleXA] 40 mg PO QAM 02/09/22 09/14/24 Fluticasone Nasal [place] [Flonase 1 spr EA NOSTRIL BID 02/04/23 09/14/24 Nasal [place]] Brexpiprazole [Rexulti] 0.25 mg PO HS 09/18/23 09/14/24 Cetirizine HCl [Zyrtec] 10 mg PO HS 02/03/24 09/14/24 Varenicline [Chantix Continuing 1 mg PO BID 05/08/24 09/14/24 Pack] Albuterol Inhaler [Ventolin Hfa 2 puff INHALATION RT-QID PRN 05/13/24 09/14/24 Inhaler] busPIRone HCl [Buspar] 10 mg PO BID 05/13/24 09/14/24 Previous Rx's Medication Instructions Recorded Docusate [Colace] 100 mg PO BID #20 capsule 05/21/24 Diclofenac Sodium Gel [Voltaren 1% 2 - 4 gm TOPICAL TID PRN 30 Days 08/02/24 Gel] #1 each Ibuprofen [Motrin] 600 mg PO Q6HR PRN #40 tab 08/02/24 oxyCODONE HCL/ACETAMINOPHEN 1 tab PO TID PRN 30 Days #90 tab 08/02/24 [Percocet 7.5-325 mg] tiZANidine HCL 2 mg PO HS 30 Days #30 tab 08/02/24 Cefpodoxime Proxetil [Vantin] 200 mg PO Q12HR 10 Days #20 tab 09/05/24 Allergies Allergy/AdvReac Type Severity Reaction Status Date / Time Penicillins Allergy Childhood Verified 09/17/24 14:43 Rash morphine AdvReac Chest Pain Verified 09/17/24 14:43 Review of Systems ROS Statement: Those systems with pertinent positive or pertinent negative responses have been documented in the HPI. ROS Other: All systems not noted in ROS Statement are negative. Past Medical History Past Medical History: Asthma, COPD, GERD/Reflux, Hyperlipidemia, Osteoarthritis (OA), Syncope, Thyroid Disorder Additional Past Medical History / Comment(s): kidney stones, hypoglycemia, c hronic neck and L shoulder, lower back pain. Hx L facial and L ankle fxs, sinus problems, vertigo, falls in past due to syncope, low BP at times. Fusion of sacrum and iliac crest-per , spinal cord stimulator in cervical spine, diverticulosis/diverticulitis. 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 rectocele repair, d&c , colon resection 05/15/24 Past Anesthesia/Blood Transfusion Reactions: Previous Problems w/ Anesthesia Additional Past Anesthesia/Blood Transfusion Reaction / Comment(s): "Takes lo nger to wake up from anesthesia." - just once Past Psychological History: ADD/ADHD, Anxiety, Depression Smoking Status: Former smoker - Past Family History Mother History Unknown: Yes Family Medical History: Cancer Additional Family Medical History / Comment(s): lung Father Family Medical History: Asthma, COPD, Osteoarthritis (OA) Additional Family Medical History / Comment(s): Father at age 80 yrs. Sister(s) Family Medical History: Diabetes Mellitus, Thyroid Disorder General Exam Limitations: no limitations General appearance: alert, in no apparent distress Head exam: Present: atraumatic, normocephalic, normal inspection Respiratory exam: Present: normal lung sounds bilaterally. Absent: respiratory distress, wheezes, rales, rhonchi, stridor Cardiovascular Exam: Present: regular rate, normal rhythm, normal heart sounds. Absent: systolic murmur, diastolic murmur, rubs, gallop, clicks GI/Abdominal exam: Present: soft, tenderness (LLQ), normal bowel sounds. Absent: distended Neurological exam: Present: alert, oriented X3, CN II-XII intact Psychiatric exam: Present: normal affect, normal mood Skin exam: Present: warm, dry, intact, normal color. Absent: rash Course Vital Signs 09/17/24 09/17/24 14:41 20:05 Temperature 98.4 F Pulse Rate 59 L 62 Respiratory 18 18 Rate Blood Pressure 121/60 112/62 O2 Sat by Pulse 99 97 Oximetry Medical Decision Making - Medical Decision Making This is a 59 year old female who presents to the emergency department for abdominal pain. Was pt. sent in by a medical professional or institution? @ -No Did you speak to anyone other than the patient for history? @ -No Did you review nursing and triage notes? @ -Yes, and I agree, it is accurate with regards to the patient's symptoms. Were old charts reviewed? @ -No Differential Diagnosis? @ -Differential Abdominal Pain Women: Appendicitis, Cholecystitis, diverticulosis, ischemic bowel, pancreatitis, hepatitis, UTI, gastroenteritis, AAA, incarcerated hernia, bowel obstruction, constipation, inflammatory bowel, hepatitis, peptic ulcer disease, splenic infarction, perforated viscus, vulvitis, ovarian torsion, PID, kidney stone, placenta abruption, this is not meant to be an all-inclusive list EKG interpreted by me (3pts min.)? @ -Not obtained X-rays interpreted by me (1pt min.)? @ -Not obtained CT interpreted by me (1pt min.)? @ -CT scan of the abdomen and pelvis obtained. My interpretation identifies no evidence of bowel wall thickening or free air. U/S interpreted by me (1pt. min.)? @ -Not obtained What testing was considered but not performed? (CT, X-rays, U/S, labs)? Why? @ -None What meds were considered but not given? Why? @ -None Did you discuss the management of the patient with other professionals? @ -No Did you reconcile home meds? @ -No Was smoking cessation discussed for >3mins.? @ -No Was critical care preformed (if so, how long)? @ -No Were there social determinants of health that impacted care today? How? (Homelessness, low income, unemployed, alcoholism, drug addiction, transportation, low edu. Level, literacy, decrease access to med. care, prison, rehab)? @ -No Was there de-escalation of care discussed even if they declined? (Discuss DNR or withdrawal of care, Hospice)? @ -No What co-morbidities impacted this encounter? (DM, HTN, Smoking, COPD, CAD, Cancer, CVA, Hep., AIDS, mental health diagnosis, sleep apnea, morbid obesity)? @ -Diverticulosis Was patient admitted / discharged? @ -Discharged. Lab work demonstrates leukocytosis with a white blood cell count of 12.6. Lactic acid mildly elevated at 2.1. Lab work otherwise unremarkable. Urinalysis negative for signs of infection. CT scan of the abdomen and pelvis obtained revealing no acute process. Pain was managed in the emergency department and the patient was discharged home in stable condition. Case discussed with ED attending Dr. Marquez. Return precautions reviewed in depth, the patient is instructed to return to the emergency department with any new, worsening, or concerning symptoms. Patient verbalized understanding. Undiagnosed new problem with uncertain prognosis? @ -None Drug Therapy requiring intensive monitoring for toxicity (Heparin, Nitro, Insulin, Cardizem)? @ -None Were any procedures done? @ -None Diagnosis/symptom? @ -Abdominal pain Acute, or Chronic, or Acute on Chronic? @ -Acute Uncomplicated (without systemic symptoms) or Complicated (systemic symptoms)? @ -Uncomplicated Side effects of treatment? @ -None Exacerbation, Progression, or Severe Exacerbation] @ -Not applicable Poses a threat to life or bodily function? @ -No - Lab Data Result diagrams: 09/17/24 15:30 09/17/24 15:30 Lab Results 09/17/24 09/17/24 09/17/24 Range/Units 15:30 15:30 15:30 WBC 12.6 H (3.8-10.6) k/uL RBC 4.02 (3.80-5.40) m/uL Hgb 11.6 (11.4-16.0) gm/dL Hct 35.1 (34.0-46.0) % MCV 87.3 (80.0-100.0) fL MCH 28.9 (25.0-35.0) pg MCHC 33.1 (31.0-37.0) g/dL RDW 13.7 (11.5-15.5) % Plt Count 234 (150-450) k/uL MPV 7.8 Neutrophils % 61 % Lymphocytes % 30 % Monocytes % 5 % Eosinophils % 2 % Basophils % 1 % Neutrophils # 7.7 (1.3-7.7) k/uL Lymphocytes # 3.7 (1.0-4.8) k/uL Monocytes # 0.6 (0-1.0) k/uL Eosinophils # 0.3 (0-0.7) k/uL Basophils # 0.1 (0-0.2) k/uL Sodium 136 L (137-145) mmol/L Potassium 4.6 (3.5-5.1) mmol/L Chloride 102 (98-107) mmol/L Carbon Dioxide 25 (22-30) mmol/L Anion Gap 9 mmol/L BUN 9 (7-17) mg/dL Creatinine 0.77 (0.52-1.04) mg/dL Est GFR (CKD-EPI)AfAm >90 (>60 ml/min/1.73 sqM) Est GFR (CKD-EPI)NonAf 84 (>60 ml/min/1.73 sqM) Glucose 97 (74-99) mg/dL Lactic Ac Sepsis Rflx Plasma Lactic Acid [place] 2.1 H* (0.7-2.0) mmol/L Calcium 9.1 (8.4-10.2) mg/dL Total Bilirubin 0.4 (0.2-1.3) mg/dL AST 29 (14-36) U/L ALT 18 (4-34) U/L Alkaline Phosphatase 87 (38-126) U/L Total Protein 6.9 (6.3-8.2) g/dL Albumin 4.3 (3.5-5.0) g/dL Amylase 38 (30-110) U/L Lipase 76 (23-300) U/L Urine Color Urine Appearance (Clear) Urine pH (5.0-8.0) Ur Specific [place] (1.001-1.035) Urine Protein (Negative) Urine Glucose (UA) (Negative) Urine Ketones (Negative) Urine Blood (Negative) Urine Nitrite (Negative) Urine Bilirubin (Negative) Urine Urobilinogen (<2.0) mg/dL Ur Leukocyte Esterase (Negative) 09/17/24 09/17/24 09/17/24 Range/Units 15:36 16:31 18:34 WBC (3.8-10.6) k/uL RBC (3.80-5.40) m/uL Hgb (11.4-16.0) gm/dL Hct (34.0-46.0) % MCV (80.0-100.0) fL MCH (25.0-35.0) pg MCHC (31.0-37.0) g/dL RDW (11.5-15.5) % Plt Count (150-450) k/uL MPV Neutrophils % % Lymphocytes % % Monocytes % % Eosinophils % % Basophils % % Neutrophils # (1.3-7.7) k/uL Lymphocytes # (1.0-4.8) k/uL Monocytes # (0-1.0) k/uL Eosinophils # (0-0.7) k/uL Basophils # (0-0.2) k/uL Sodium (137-145) mmol/L Potassium (3.5-5.1) mmol/L Chloride (98-107) mmol/L Carbon Dioxide (22-30) mmol/L Anion Gap mmol/L BUN (7-17) mg/dL Creatinine (0.52-1.04) mg/dL Est GFR (CKD-EPI)AfAm (>60 ml/min/1.73 sqM) Est GFR (CKD-EPI)NonAf (>60 ml/min/1.73 sqM) Glucose (74-99) mg/dL Lactic Ac Sepsis Rflx Y Plasma Lactic Acid [place] 0.8 (0.7-2.0) mmol/L Calcium (8.4-10.2) mg/dL Total Bilirubin (0.2-1.3) mg/dL AST (14-36) U/L ALT (4-34) U/L Alkaline Phosphatase (38-126) U/L Total Protein (6.3-8.2) g/dL Albumin (3.5-5.0) g/dL Amylase (30-110) U/L Lipase (23-300) U/L Urine Color Colorless Urine Appearance Clear (Clear) Urine pH 6.5 (5.0-8.0) Ur Specific [place] 1.009 (1.001-1.035) Urine Protein Negative (Negative) Urine Glucose (UA) Negative (Negative) Urine Ketones Negative (Negative) Urine Blood Negative (Negative) Urine Nitrite Negative (Negative) Urine Bilirubin Negative (Negative) Urine Urobilinogen <2.0 (<2.0) mg/dL Ur Leukocyte Esterase Negative (Negative) - Radiology Data Radiology results: report reviewed, image reviewed Disposition Clinical Impression: Abdominal pain Disposition: HOME SELF-CARE Instructions (If sedation given, give patient instructions): Abdominal Pain (ED) Additional Instructions: Return to the emergency department with any new, worsening, or concerning symptoms. Follow up with your primary care provider in 1-2 days. Is patient prescribed a controlled substance at d/c from ED?: No Referrals: Ihsan Ding DO [Primary Care Provider] - 1-2 days Time of Disposition: 19:26
[2024-09-17 15:47] LABS: Basophils # (A) 0.1 k/uL (0-0.2); Basophils % (A) 1 %; Eosinophils # (A) 0.3 k/uL (0-0.7); Eosinophils % (A) 2 %; HCT 35.1 % (34.0-46.0); HGB 11.6 gm/dL (11.4-16.0); Lymphocytes # (A) 3.7 k/uL (1.0-4.8); Lymphocytes % (A) 30 %; MCH 28.9 pg (25.0-35.0); MCHC 33.1 g/dL (31.0-37.0); MCV 87.3 fL (80.0-100.0); Mean Platelet Volume 7.8; Monocytes # (A) 0.6 k/uL (0-1.0); Monocytes % (A) 5 %; Neutrophils # (A) 7.7 k/uL (1.3-7.7); Neutrophils % (A) 61 %; Platelet Count 234 k/uL (150-450); RBC 4.02 m/uL (3.80-5.40); RDW 13.7 % (11.5-15.5); WBC 12.6 k/uL (3.8-10.6)
[2024-09-17 16:03] LABS: ALT 18 U/L (4-34); AST 29 U/L (14-36); African American GFR (CKD) >90 (>60 ml/min/1.73 sqM); Albumin 4.3 g/dL (3.5-5.0); Alkaline Phosphatase 87 U/L (38-126); Amylase 38 U/L (30-110); Anion Gap 9 mmol/L; Blood Urea Nitrogen 9 mg/dL (7-17); Calcium 9.1 mg/dL (8.4-10.2); Carbon Dioxide 25 mmol/L (22-30); Chloride 102 mmol/L (98-107); Glucose 97 mg/dL (74-99); Lipase 76 U/L (23-300); Non-African American GFR(CKD) 84 (>60 ml/min/1.73 sqM); Potassium 4.6 mmol/L (3.5-5.1); Sodium 136 mmol/L (137-145); Total Bilirubin 0.4 mg/dL (0.2-1.3); Total Protein 6.9 g/dL (6.3-8.2)
[2024-09-17] MEDS: SODIUM CHLORIDE 0.9% 1,000 ML IV STA (16:27)
[2024-09-17] MEDS: KETOROLAC 15 MG/ML 1 ML VIAL IVP STA ×2 (16:28→18:52)
[2024-09-17] MEDS: HYDROmorphone 1 MG/ML 1 ML SYRINGE IVP STA ×3 (16:31→18:51)
--- NOTE | 2024-09-17 17:55 | CT ---
EXAMINATION TYPE: CT abdomen pelvis w con DATE OF EXAM: 09/17/2024 5:28 PM COMPARISON: Previous CT/pelvis study 09/05/2024. CLINICAL INDICATION: Female, 59 years old with history of LLQ pain; ABD PAIN/POSSIBLE ADHENSIONS TECHNIQUE: Axial CT abdomen pelvis w con;Sagittal and coronal reformats were created on a separate w orkstation. Contrast used:100ML mL of Isovue 300 with IV Contrast, (none if empty) Oral contrast used: without Oral Contrast (none if empty) CT DLP: 1003.2 mGycm, Automated exposure control for dose reduction was used. FINDINGS: LOWER CHEST: Unremarkable ABDOMEN LIVER: Unremarkable GALLBLADDER AND BILE DUCTS: Gallbladder is surgically absent with mild intrahepatic and extra hepatic biliary dilatation likely physiologic and a postcholecystectomy change. No evidence of choledocholit hiasis. PANCREAS: Unremarkable. SPLEEN: Unremarkable. ADRENAL GLANDS: Unremarkable. KIDNEYS AND URETERS: No evidence of hydronephrosis or renal calculus. The ureters are unremarkable. PELVIS BLADDER: No evidence for wall thickening or mass given limitations of exam. REPRODUCTIVE: The uterus is surgically absent. ABDOMEN & PELVIS STOMACH AND BOWEL: Small hiatal hernia and postoperative changes at the GE junction again noted. No e vidence of bowel obstruction. PERITONEUM/RETROPERITONEUM: No evidence of pneumoperitoneum or free fluid. VASCULATURE: No evidence of aortic aneurysm. MUSCULOSKELETAL: No acute osseous abnormalities. The rectal lumbar spinal fusion hardware spanning L4 -S1. LYMPH NODES: No gross evidence for lymphadenopathy. SOFT TISSUE/ABDOMINAL WALL: Spinal stimulator device present. IMPRESSION: No acute abnormality in the abdomen/pelvis or CT findings to explain reported symptoms. [facility], , 09/17/2024 5:53 PM
[2024-09-17 18:44] LABS: Appearance,Urine Clear (Clear); Bilirubin,Urine Negative (Negative); Blood,Urine Negative (Negative); Color,Urine Colorless; Glucose,Urine (UA) Negative (Negative); Ketones,Urine Negative (Negative); Leukocyte Esterase,Urine Negative (Negative); Nitrite,Urine Negative (Negative); PH, Urine 6.5 (5.0-8.0); Protein,Urine Negative (Negative); Specific Gravity,Urine 1.009 (1.001-1.035); Urobilinogen,Urine <2.0 mg/dL (<2.0)
[2024-09-17] MEDS: HYDROmorphone 0.5 MG/0.5 ML SYRINGE IVP STA (19:58)
[2024-09-17 20:12] VITALS: BP 112/62; PULSE 62
== END 2024-09-17 20:10 | disposition home or self-care (01) ==
LOC: EC 14:40
DX: K57.92 Diverticulitis of intestine, part unspecified, without perforation or abscess without bleeding (principal); Z88.0 Allergy status to penicillin; Z88.5 Allergy status to narcotic agent; Z87.891 Personal history of nicotine dependence
CPT/HCPCS: 36415; 80053; 82150; 83605; 83690; 85025; 81003; 74177; 99284; 96374; 96375; 96376; 96361 ×3; J1171 ×2; J1885; Q9967

== ENCOUNTER 2024-11-08 08:21 | Emergency (ER) | payer MEDICARE, OTHER ==
[2024-11-08] MEDS: SODIUM CHLORIDE 0.9% 1,000 ML IV SCH (08:46)
[2024-11-08 09:21] LABS: Appearance,Urine Clear (Clear); Bilirubin,Urine Negative (Negative); Blood,Urine Negative (Negative); Color,Urine Colorless; Glucose,Urine (UA) Negative (Negative); Ketones,Urine Negative (Negative); Leukocyte Esterase,Urine Negative (Negative); Nitrite,Urine Negative (Negative); Protein,Urine Negative (Negative); Specific Gravity,Urine 1.002 (1.001-1.035); Urobilinogen,Urine <2.0 mg/dL (<2.0)
[2024-11-08 09:38] LABS: Basophils % (A) 0 %; Eosinophils # (A) 0.2 k/uL (0-0.7); Eosinophils % (A) 2 %; Lymphocytes # (A) 2.9 k/uL (1.0-4.8); Lymphocytes % (A) 35 %; MCH 28.6 pg (25.0-35.0); MCHC 33.2 g/dL (31.0-37.0); MCV 86.1 fL (80.0-100.0); Mean Platelet Volume 7.9; Monocytes # (A) 0.4 k/uL (0-1.0); Monocytes % (A) 5 %; Neutrophils # (A) 4.5 k/uL (1.3-7.7); Neutrophils % (A) 55 %; Platelet Count 224 k/uL (150-450); RBC 3.83 m/uL (3.80-5.40); WBC 8.3 k/uL (3.8-10.6)
[2024-11-08 09:48] LABS: ALT 12 U/L (4-34); AST 17 U/L (14-36); African American GFR (CKD) >90 (>60 ml/min/1.73 sqM); Albumin 3.7 g/dL (3.5-5.0); Alkaline Phosphatase 76 U/L (38-126); Anion Gap 5 mmol/L; Blood Urea Nitrogen 6 mg/dL (7-17); Calcium 8.3 mg/dL (8.4-10.2); Carbon Dioxide 28 mmol/L (22-30); Chloride 103 mmol/L (98-107); Glucose 98 mg/dL (74-99); Lipase 191 U/L (23-300); Non-African American GFR(CKD) >90 (>60 ml/min/1.73 sqM); Potassium 4.1 mmol/L (3.5-5.1); Sodium 136 mmol/L (137-145); Total Bilirubin 0.4 mg/dL (0.2-1.3); Total Protein 6.3 g/dL (6.3-8.2)
--- NOTE | 2024-11-08 10:16 | ED ---
Abdominal Pain HPI - General Chief Complaint: Abdominal Pain Stated Complaint: abd pain Time Seen by Provider: 11/08/24 08:30 Source: patient, RN notes reviewed Mode of arrival: wheelchair Limitations: no limitations - History of Present Illness Initial Comments: 59-year-old female presents emergency department complaint left-sided abdominal pain. This been ongoing issue. Patient had postsurgical adhesions in which these were lysed approximate 1 month ago. Patient states she started having some abdominal comfort which has been ongoing her pain meds are not helping. She has severe chills she had some diarrhea no vomiting no chest pain shortness of breath no other complaints. - Related Data Home Medications Medication Instructions Recorded Confirmed Ezetimibe [Zetia] 10 mg PO HS 09/05/14 10/11/24 Levothyroxine Sodium [Synthroid] 25 mcg PO DAILY 03/13/16 10/11/24 Omeprazole 40 mg PO HS 11/13/16 10/11/24 clonazePAM [KlonoPIN] 0.5 mg PO HS 05/03/17 10/11/24 Methylphenidate HCl 20 mg PO TID@0500,1200,1700 09/09/18 10/11/24 Atorvastatin Calcium [Lipitor] 10 mg PO HS 10/06/19 10/11/24 estradioL [Estrace] 0.5 mg PO DAILY 10/06/19 10/11/24 Citalopram Hydrobromide [CeleXA] 40 mg PO DAILY 02/09/22 10/11/24 Fluticasone Nasal [place] [Flonase 1 spr EA NOSTRIL BID 02/04/23 10/11/24 Nasal [place]] Brexpiprazole [Rexulti] 0.25 mg PO HS 09/18/23 10/11/24 Cetirizine HCl [Zyrtec] 10 mg PO HS 02/03/24 10/11/24 Varenicline [Chantix Continuing 1 mg PO BID 05/08/24 10/11/24 Pack] Albuterol Inhaler [Ventolin Hfa 2 puff INHALATION RT-QID PRN 05/13/24 10/11/24 Inhaler] busPIRone HCl [Buspar] 10 mg PO BID 05/13/24 10/11/24 Previous Rx's Medication Instructions Recorded Docusate [Colace] 100 mg PO BID #20 capsule 05/21/24 Diclofenac Sodium Gel [Voltaren 1% 2 - 4 gm TOPICAL TID PRN 30 Days 09/27/24 Gel] #1 each Gabapentin [Neurontin] 100 mg PO BID 30 Days #60 cap 09/27/24 Ibuprofen [Motrin] 600 mg PO Q6HR PRN #40 tab 09/27/24 methocarbamoL [Robaxin] 500 mg PO TID PRN 30 Days #90 tab 09/27/24 oxyCODONE HCL/ACETAMINOPHEN 1 tab PO TID PRN 30 Days #90 tab 09/27/24 [Percocet 7.5-325 mg] Acetaminophen-Codeine 300-30mg 1 tab PO Q4H PRN #15 tablet 10/11/24 [Tylenol #3] Allergies Allergy/AdvReac Type Severity Reaction Status Date / Time Penicillins Allergy Childhood Verified 11/08/24 08:26 Rash morphine AdvReac Chest Pain Verified 11/08/24 08:26 Review of Systems ROS Statement: Those systems with pertinent positive or pertinent negative responses have been documented in the HPI. ROS Other: All systems not noted in ROS Statement are negative. Past Medical History Past Medical History: Asthma, COPD, GERD/Reflux, Hyperlipidemia, Osteoarthritis (OA), Syncope, Thyroid Disorder Additional Past Medical History / Comment(s): kidney stones, hypoglycemia, chronic neck and L shoulder, lower back pain. Hx L facial and L ankle fxs, sinus problems, vertigo, falls in past due to syncope, low BP at times. Fusion of sacrum and iliac crest-per , spinal cord stimulator in cervical spine, diverticulosis/diverticulitis. 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 rectocele repair, d&c , colon resection 05/15/24 Past Anesthesia/Blood Transfusion Reactions: Previous Problems w/ Anesthesia Additional Past Anesthesia/Blood Transfusion Reaction / Comment(s): "Takes longer to wake up from anesthesia." - just once Past Psychological History: ADD/ADHD, Anxiety, Depression Smoking Status: Former smoker Past Alcohol Use History: None Reported Past Drug Use History: None Reported - Past Family History Mother History Unknown: Yes Family Medical History: Cancer Additional Family Medical History / Comment(s): lung Father Family Medical History: Asthma, COPD, Osteoarthritis (OA) Additional Family Medical History / Comment(s): Father at age 80 yrs. Sister(s) Family Medical History: Diabetes Mellitus, Thyroid Disorder General Exam Limitations: no limitations General appearance: alert, in no apparent distress Head exam: Present: atraumatic, normocephalic, normal inspection Eye exam: Present: normal appearance, PERRL, EOMI. Absent: scleral icterus, conjunctival injection, periorbital swelling ENT exam: Present: normal exam, normal oropharynx, mucous membranes moist Neck exam: Present: normal inspection, full ROM. Absent: tenderness, meningismus, lymphadenopathy Respiratory exam: Present: normal lung sounds bilaterally. Absent: respiratory distress, wheezes, rales, rhonchi, stridor Cardiovascular Exam: Present: regular rate, normal rhythm, normal heart sounds. Absent: systolic murmur, diastolic murmur, rubs, gallop, clicks GI/Abdominal exam: Present: soft, tenderness (Minimal diffuse), normal bowel albert nds. Absent: distended, guarding, rebound, rigid Neurological exam: Present: alert, oriented X3, CN II-XII intact, reflexes normal. Absent: motor sensory deficit Skin exam: Present: warm, dry, intact, normal color. Absent: rash Course Vital Signs 11/08/24 08:23 Temperature 98.2 F Pulse Rate 66 Respiratory 20 Rate Blood Pressure 99/59 O2 Sat by Pulse 99 Oximetry Medical Decision Making - Medical Decision Making Was pt. sent in by a medical professional or institution (, PA, DIRECTOR OF COMMUNITY EDUCATION, urgent care, hospital, or [place] health care facility...) When possible be specific @ -No Did you speak to anyone other than the patient for history (EMS, parent, family, police, friend...)? What history was obtained from this source @ -No Did you review nursing and triage notes (agree or disagree)? Why? @ -I reviewed and agree with nursing and triage notes Were old charts reviewed (outside hosp., previous admission, EMS record, old EKG, old radiological studies, urgent care reports/EKG's, [place] health care facility records)? Report findings @ -No old charts were reviewed Differential Diagnosis (chest pain, altered mental status, abdominal pain women, abdominal pain men, vaginal bleeding, weakness, fever, dyspnea, syncope, headache, dizziness, GI bleed, back pain, seizure, CVA, palpatations, mental health, musculoskeletal)? @ -Differential Abdominal Pain Women: Appendicitis, Cholecystitis, diverticulosis, ischemic bowel, pancreatitis, hepatitis, UTI, gastroenteritis, AAA, incarcerated hernia, bowel obstruction, constipation, inflammatory bowel, hepatitis, peptic ulcer disease, splenic infarction, perforated viscus, vulvitis, ovarian torsion, PID, kidney stone, placenta abruption, this is not meant to be an all-inclusive list EKG interpreted by me (3pts min.). @ -none X-rays interpreted by me (1pt min.). @ -None done CT interpreted by me (1pt min.). @ -None done U/S interpreted by me (1pt. min.). @ -None done What testing was considered but not performed or refused? (CT, X-rays, U/S, labs)? Why? @ -None What meds were considered but not given or refused? Why? @ -None Did you discuss the management of the patient with other professionals (professionals i.e. , PA, DIRECTOR OF COMMUNITY EDUCATION, lab, RT, psych nurse, social sciences instructor, university archivist, teacher, child support case officer, child support case officer)? Give summary @ -No Was smoking cessation discussed for >3mins.? @ -No Was critical care preformed (if so, how long)? @ -No Were there social determinants of health that impacted care today? How? (Homelessness, low income, unemployed, alcoholism, drug addiction, transporta tion, low edu. Level, literacy, decrease access to med. care, custodial, rehab)? @ -No Was there de-escalation of care discussed even if they declined (Discuss DNR or withdrawal of care, Hospice)? DNR status @ -No What co-morbidities impacted this encounter? (DM, HTN, Smoking, COPD, CAD, Cancer, CVA, ARF, Chemo, Hep., AIDS, mental health diagnosis, sleep apnea, morbid obesity)? @ -None Was patient admitted / discharged? Hospital course, mention meds given and route, prescriptions, significant lab abnormalities, going to OR and other pertinent info. @ -Discharge patient negative workup patient's exam is essential benign patient will follow-up with her surgeon return parameters hattie. Undiagnosed new problem with uncertain prognosis? @ -No Drug Therapy requiring intensive monitoring for toxicity (Heparin, Nitro, Insulin, Cardizem)? @ -No Were any procedures done? @ -No Diagnosis/symptom? @ -Abdominal pain Acute, or Chronic, or Acute on Chronic? @ -Acute Uncomplicated (without systemic symptoms) or Complicated (systemic symptoms)? @ -Uncomplicated Side effects of treatment? @ -No Exacerbation, Progression, or Severe Exacerbation? @ -No Poses a threat to life or bodily function? How? (Chest pain, USA, MS, pneumonia, PE, COPD, DKA, ARF, appy, cholecystitis, CVA, Diverticulitis, Homicidal, Suicidal, threat to staff... and all critical care pts) @ -No - Lab Data Result diagrams: 11/08/24 09:22 11/08/24 09:22 Lab Results 11/08/24 11/08/24 11/08/24 Range/Units 09:14 09:22 09:22 WBC 8.3 (3.8-10.6) k/uL RBC 3.83 (3.80-5.40) m/uL Hgb 11.0 L (11.4-16.0) gm/dL Hct 33.0 L (34.0-46.0) % MCV 86.1 (80.0-100.0) fL MCH 28.6 (25.0-35.0) pg MCHC 33.2 (31.0-37.0) g/dL RDW 14.0 (11.5-15.5) % Plt Count 224 (150-450) k/uL MPV 7.9 Neutrophils % 55 % Lymphocytes % 35 % Monocytes % 5 % Eosinophils % 2 % Basophils % 0 % Neutrophils # 4.5 (1.3-7.7) k/uL Lymphocytes # 2.9 (1.0-4.8) k/uL Monocytes # 0.4 (0-1.0) k/uL Eosinophils # 0.2 (0-0.7) k/uL Basophils # 0.0 (0-0.2) k/uL Sodium 136 L (137-145) mmol/L Potassium 4.1 (3.5-5.1) mmol/L Chloride 103 (98-107) mmol/L Carbon Dioxide 28 (22-30) mmol/L Anion Gap 5 mmol/L BUN 6 L (7-17) mg/dL Creatinine 0.70 (0.52-1.04) mg/dL Est GFR (CKD-EPI)AfAm >90 (>60 ml/min/1.73 sqM) Est GFR (CKD-EPI)NonAf >90 (>60 ml/min/1.73 sqM) Glucose 98 (74-99) mg/dL Calcium 8.3 L (8.4-10.2) mg/dL Total Bilirubin 0.4 (0.2-1.3) mg/dL AST 17 (14-36) U/L ALT 12 (4-34) U/L Alkaline Phosphatase 76 (38-126) U/L Total Protein 6.3 (6.3-8.2) g/dL Albumin 3.7 (3.5-5.0) g/dL Lipase 191 (23-300) U/L Urine Color Colorless Urine Appearance Clear (Clear) Urine pH 6.0 (5.0-8.0) Ur Specific [place] 1.002 (1.001-1.035) Urine Protein Negative (Negative) Urine Glucose (UA) Negative (Negative) Urine Ketones Negative (Negative) Urine Blood Negative (Negative) Urine Nitrite Negative (Negative) Urine Bilirubin Negative (Negative) Urine Urobilinogen <2.0 (<2.0) mg/dL Ur Leukocyte Esterase Negative (Negative) Disposition Clinical Impression: Abdominal pain Disposition: HOME SELF-CARE Condition: Stable Instructions (If sedation given, give patient instructions): Abdominal Pain (ED) Additional Instructions: Please return to the Emergency Department if symptoms worsen or any other concerns. Is patient prescribed a controlled substance at d/c from ED?: No Referrals: Ihsan Ding DO [Primary Care Provider] - 1-2 days Time of Disposition: 10:16
[2024-11-08] MEDS: HYDROmorphone 0.5 MG/0.5 ML SYRINGE IVP STA (10:23)
[2024-11-08 10:25] VITALS: RESP 16
[2024-11-08 10:50] VITALS: BP 122/65; PULSE 62; TEMP 98.7
== END 2024-11-08 11:00 | disposition home or self-care (01) ==
LOC: EC 08:21
DX: R10.9 Unspecified abdominal pain (principal); Z87.891 Personal history of nicotine dependence; Z88.0 Allergy status to penicillin; Z88.5 Allergy status to narcotic agent
CPT/HCPCS: 36415; 80053; 83690; 85025; 81003; 99284; 96374; 96361; J1171

== ENCOUNTER → 2024-11-22 | Outpatient (CLI) | payer MEDICARE, OTHER ==
[2024-11-22 07:46] VITALS: BP 108/66; PULSE 95; RESP 17; TEMP 98.2
--- NOTE | 2024-11-22 15:19 | P.PAINPG ---
Objective - Vital Signs Vital signs: Vital Signs Temp 98.2 F 11/22/24 07:41 Pulse 95 11/22/24 07:41 Resp 17 11/22/24 07:41 BP 108/66 11/22/24 07:41 Pulse Ox 95 11/22/24 07:41 FiO2 Intake & Output 11/21/24 11/22/24 11/22/24 18:59 06:59 18:59 Weight 84.368 kg PQRS Measure Charge Sheet Mode of Arrival: Ambulatory Comment: A 59 yr old female with a history of severe and chronic neck and LBP > 2 yr secondary to cervical and lumbar radiculopathy, spondylosis with facet arthropathy without myelopathy presents today for medication refills and evaluation s/p R TFESI L5-S1 #1. Pt states she experienced 0% pain relief s/p procedure. Pain level is provoked at 7 /10 in intensity, constant, localized in the cervical & lumbar spine, sharp in character w shooting towards the back of the shoulders and BLEs. Pain is provoked by lifting. Pain is alleviated with PT w massage x 4 wks in Oct 2022, medications, topical , alternating heat & ice, repositioning and rest. No longer asking to "up the dose" of Percocet 7.5/325mg #90. States Neurontin caused weight gain and has discontinued it. Discussed combination of Klonopin 0.5mg #30 and Methylphenidate 20mg #90 she receives from other doctors, the drug interaction and adverse reactions.Will not increase the Percocet but will add Neurontin to regimen. Interventional procedures include R TFESI L5-S1 x1 (Jul 2024) Patient is currently on [place] 10/325mg #90, Zanaflex, Ibu, Voltaren gel Patient denies any side effects of the medication(s), denies excessive drowsiness or sleepiness, denies suicidal ideation and reports that the current pain medication is helping to control the pain and improve activities of daily living. Patient denies any motor or sensory deficits. Patient denies any fever or night sweats, denies any change in the bowel movements or urination. Physical Examination: -Constitutional: Cooperative. Not in acute distress . - Neurologic: Cranial nerve II to XII intact. No focal neurological deficits. - Psychatric: Alert & oriented x 3. Matching mood & appropriate affect. Judgment and insight intact. - Musculoskeletal: Cervical spine: Muscle bulk/ tone/ strength in the bilateral upper extremities normal Vertebral body tenderness to palpation over [place]ling test positive Distraction test positive Facet loading test positive TTP Thoracic spine Muscle bulk / tone/ strength in the bilateral paraspinal muscles normal Vertebral body tender to palpation over Facet loading test positive TTP Lumbar spine: Motor bulk/ tone/ strength lower extremities , thigh and legs : 5/5 Deep tendon reflexes : Normal Knee Jerk. Normal Ankle Jerk . Vertebral body tenderness to palpation over L4 Lumbar Facet Loading Test positive Straight Leg Raise: positive at 30 degrees right side/ left side Gaenslen's Test positive Sacral spine : Severe tenderness over the Sacroiliac joint: right side / left side Range of motion: Flexion of the lumbar spine <60 degrees Range of motion: Extension of the lumbar spine <20 degrees Gaenslen's Test positive R / L Tim test: positive right side / left side Thigh Thrust Test positive R / L Sacral Thrust Test positive R/ L Assessment and plan: Chronic neck pain and LBP secondary to cervical & lumbar radiculopathy, spondylosis with facet arthropathy without myelopathy Chronic and current use of high-risk medication (Opioids). The patient was counseled about risk of opioid use, psychological risk associated with opioids and was orally counseled to not overuse , divert or sell medications. Pt is to store medication in a safe location. The patient is counseled against driving while using narcotic medications and also not to use alcohol or any illicit recreational drugs. Patient verbalized understanding that the lack of compliance will result in failure to renew narcotic prescription(s) as well as possible discharge from the clinic Diagnoses, prognosis and treatment options including but not limited to physical therapy, surgical interventions, interventional therapies and medication management including narcotics and adjuvant medication were discussed. All patient questions answered . Opiate/ narcotic agreement renewed 11/22/24. MAPS reviewed and it was appropriate. UDS form 09/27/24 reviewed and consistent. Discontinue Neurontin 100mg as pt stated it caused weight gain. Prescription refill for Percocet 7.5/325mg #90 , Ibu 800mg #90, Diclofenac gel, Zanaflex 4mg #90 w 1 RF. I have spent less than 30 minutes on patient care today. Dr Castanon was available by phone for the evaluation of this patient. The time was used to review the medical records including relevant urine studies and Prescription history (MAPs), review of the available imaging, evaluation and examination of the patient, coordination of care with the medical staff and if applicable referring physicians, as well as creation of the medical record - Pain Location Lower Back Non-Pharmacological Interventions: Heat, Relaxation Technique Pharmacological Interventions: Medication, Topical Medication PQRS Narrative: Smoking Status Former smoker Narcotic Agreement Date Signed 08/02/24 Blood Pressure 108/66 Pain Intensity [Lower Back] 8 Scale Used Numeric (1 - 10) Hx Alcohol Use (MH) No Home Medications: Ambulatory Orders Ezetimibe [Zetia] 10 mg PO HS 09/05/14 Levothyroxine Sodium [Synthroid] 25 mcg PO DAILY 03/13/16 Omeprazole 40 mg PO HS 11/13/16 clonazePAM [KlonoPIN] 0.5 mg PO HS 05/03/17 Methylphenidate HCl 20 mg PO TID@0500,1200,1700 09/09/18 Atorvastatin Calcium [Lipitor] 10 mg PO HS 10/06/19 estradioL [Estrace] 0.5 mg PO DAILY 10/06/19 Citalopram Hydrobromide [CeleXA] 40 mg PO DAILY 02/09/22 Fluticasone Nasal [place] [Flonase Nasal [place]] 1 spr EA NOSTRIL BID 02/04/23 Brexpiprazole [Rexulti] 0.25 mg PO HS 09/18/23 Cetirizine HCl [Zyrtec] 10 mg PO HS 02/03/24 Varenicline [Chantix Continuing Pack] 1 mg PO BID 05/08/24 Albuterol Inhaler [Ventolin Hfa Inhaler] 2 puff INHALATION RT-QID PRN 05/13/24 busPIRone HCl [Buspar] 10 mg PO BID 05/13/24 Docusate [Colace] 100 mg PO BID #20 capsule 05/21/24 Diclofenac Sodium Gel [Voltaren 1% Gel] 2 - 4 gm TOPICAL TID PRN 30 Days #1 each 11/22/24 Gabapentin [Neurontin] 100 mg PO BID 30 Days #60 cap 11/22/24 Ibuprofen [Motrin] 600 mg PO Q6HR PRN #40 tab 11/22/24 oxyCODONE HCL/ACETAMINOPHEN [Percocet 7.5-325 mg] 1 tab PO TID PRN 30 Days #90 tab 11/22/24 oxyCODONE HCL/ACETAMINOPHEN [Percocet 7.5-325 mg] 1 tab PO TID PRN 30 Days #90 tab 11/22/24 tiZANidine [Zanaflex] 4 mg PO TID PRN 30 Days #90 tab 11/22/24 Controlled Substance Measures - Controlled Substance Measures Is patient prescribed a controlled substance at discharge?: Yes When asked, does pt state using other controlled substances?: Yes If prescribed controlled substance>3 days was MAPS reviewed?: Yes If Rx opioid, was Start Talking consent form obtained?: Yes Was information provided regarding opioid addiction?: Yes
== END ==
LOC: PNWHC3 07:25
PROVIDERS: ATTEND Specialist
DX: M47.26 Other spondylosis with radiculopathy, lumbar region (principal); M47.812 Spondylosis without myelopathy or radiculopathy, cervical region; G89.29 Other chronic pain; Z87.891 Personal history of nicotine dependence; Z88.5 Allergy status to narcotic agent; Z88.0 Allergy status to penicillin
CPT/HCPCS: 99212

== ENCOUNTER 2024-12-09 11:23 | Emergency (ER) | payer MEDICARE, OTHER ==
[2024-12-09 11:45] VITALS: RESP 17
--- NOTE | 2024-12-09 12:01 | ED ---
Back Pain [facility] - General Chief Complaint: Back Pain/Injury Stated Complaint: Lower Back Pain Time Seen by Provider: 12/09/24 11:47 Source: patient, RN notes reviewed Limitations: no limitations - History of Present Illness Initial Comments: This is a 59-year-old female with chronic back pain presents emergency department with lumbar back pain with radiation into her left buttock and left posterior leg. She states that pain has been worsening over the past week. She denies recent falls or injuries or straining her back that may have exacerbated the pain. Patient does follow with pain management is prescribed Percocet. States she has been taking his medications as prescribed with minimal relief in symptoms. She denies loss of bladder bowel continence or saddle seizures. Patient does have a history of previous lumbar back surgery 4 years ago. Patient is scheduled for follow-up with her neurosurgeon on the of this month. No other acute complaints this time. - Related Data Home Medications Medication Instructions Recorded Confirmed Ezetimibe [Zetia] 10 mg PO HS 09/05/14 10/11/24 Levothyroxine Sodium [Synthroid] 25 mcg PO DAILY 03/13/16 10/11/24 Omeprazole 40 mg PO HS 11/13/16 10/11/24 clonazePAM [KlonoPIN] 0.5 mg PO HS 05/03/17 10/11/24 Methylphenidate HCl 20 mg PO TID@0500,1200,1700 09/09/18 10/11/24 Atorvastatin Calcium [Lipitor] 10 mg PO HS 10/06/19 10/11/24 estradioL [Estrace] 0.5 mg PO DAILY 10/06/19 10/11/24 Citalopram Hydrobromide [CeleXA] 40 mg PO DAILY 02/09/22 10/11/24 Fluticasone Nasal [place] [Flonase 1 spr EA NOSTRIL BID 02/04/23 10/11/24 Nasal [place]] Brexpiprazole [Rexulti] 0.25 mg PO HS 09/18/23 10/11/24 Cetirizine HCl [Zyrtec] 10 mg PO HS 02/03/24 10/11/24 Varenicline [Chantix Continuing 1 mg PO BID 05/08/24 10/11/24 Pack] Albuterol Inhaler [Ventolin Hfa 2 puff INHALATION RT-QID PRN 05/13/24 10/11/24 Inhaler] busPIRone HCl [Buspar] 10 mg PO BID 05/13/24 10/11/24 Previous Rx's Medication Instructions Recorded Docusate [Colace] 100 mg PO BID #20 capsule 05/21/24 Diclofenac Sodium Gel [Voltaren 1% 2 - 4 gm TOPICAL TID PRN 30 Days 11/22/24 Gel] #1 each Gabapentin [Neurontin] 100 mg PO BID 30 Days #60 cap 11/22/24 Ibuprofen [Motrin] 600 mg PO Q6HR PRN #40 tab 11/22/24 oxyCODONE HCL/ACETAMINOPHEN 1 tab PO TID PRN 30 Days #90 tab 11/22/24 [Percocet 7.5-325 mg] oxyCODONE HCL/ACETAMINOPHEN 1 tab PO TID PRN 30 Days #90 tab 11/22/24 [Percocet 7.5-325 mg] tiZANidine [Zanaflex] 4 mg PO TID PRN 30 Days #90 tab 11/22/24 Allergies Allergy/AdvReac Type Severity Reaction Status Date / Time Penicillins Allergy Childhood Verified 12/09/24 11:45 Rash morphine AdvReac Chest Pain Verified 12/09/24 11:45 Review of Systems ROS Statement: Those systems with pertinent positive or pertinent negative responses have been documented in the HPI. ROS Other: All systems not noted in ROS Statement are negative. Past Medical History Past Medical History: Asthma, COPD, GERD/Reflux, Hyperlipidemia, Osteoarthritis (OA), Syncope, Thyroid Disorder Additional Past Medical History / Comment(s): kidney stones, hypoglycemia, chronic neck and L shoulder, lower back pain. Hx L facial and L ankle fxs, sinus problems, vertigo, falls in past due to syncope, low BP at times. Fusion of sacrum and iliac crest-per , spinal cord stimulator in cervical spine, diverticulosis/diverticulitis. 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 rectocele repair, d&c , colon resection 05/15/24 Past Anesthesia/Blood Transfusion Reactions: Previous Problems w/ Anesthesia Additional Past Anesthesia/Blood Transfusion Reaction / Comment(s): "Takes longer to wake up from anesthesia." - just once Past Psychological History: ADD/ADHD, Anxiety, Depression Smoking Status: Former smoker Past Alcohol Use History: None Reported Past Drug Use History: None Reported - Past Family History Mother History Unknown: Yes Family Medical History: Cancer Additional Family Medical History / Comment(s): lung Father Family Medical History: Asthma, COPD, Osteoarthritis (OA) Additional Family Medical History / Comment(s): Father at age 80 yrs. Sister(s) Family Medical History: Diabetes Mellitus, Thyroid Disorder General Exam Limitations: no limitations General appearance: alert, in no apparent distress Neck exam: Present: normal inspection. Absent: tenderness, meningismus, lymphadenopathy Respiratory exam: Present: normal lung sounds bilaterally. Absent: respiratory distress, wheezes, rales, rhonchi, stridor Cardiovascular Exam: Present: regular rate, normal rhythm, normal heart sounds. Absent: systolic murmur, diastolic murmur, rubs, gallop, clicks GI/Abdominal exam: Present: soft, normal bowel sounds. Absent: distended, tenderness, guarding, rebound, rigid Extremities exam: Present: normal inspection, full ROM, normal capillary refill. Absent: tenderness, pedal edema, joint swelling, calf tenderness Back exam: Present: normal inspection, tenderness. Absent: CVA tenderness (R), CVA tenderness (L) Neurological exam: Present: alert, oriented X3, CN II-XII intact Course Vital Signs 12/09/24 12/09/24 11:42 12:32 Temperature 98.4 F 98.1 F Pulse Rate 60 56 L Respiratory 17 17 Rate Blood Pressure 108/73 105/72 O2 Sat by Pulse 98 97 Oximetry Medical Decision Making - Medical Decision Making Was pt. sent in by a medical professional or institution (, PA, PROCESS COORDINATOR, urgent care, hospital, or fdc...) When possible be specific @ -No Did you speak to anyone other than the patient for history (EMS, parent, family, police, friend...)? What history was obtained from this source @ -No Did you review nursing and triage notes (agree or disagree)? Why? @ -I reviewed and agree with nursing and triage notes Were old charts reviewed (outside hosp., previous admission, EMS record, old EKG, old radiological studies, urgent care reports/EKG's, fdc records)? Report findings @ -No old charts were reviewed Differential Diagnosis (chest pain, altered mental status, abdominal pain women, abdominal pain men, vaginal bleeding, weakness, fever, dyspnea, syncope, headache, dizziness, GI bleed, back pain, seizure, CVA, palpatations, mental health, musculoskeletal)? @ -Differential Back Pain: Strain, zoster, cauda equina syndrome, epidural abscess, vertebral osteomyelitis, discitis, fracture, subluxation, disc herniation, DJD, spinal stenosis, dissection, AAA, pancreatitis, peptic ulcer disease, pyelonephritis, kidney stone, this is not meant to be an all-inclusive list. EKG interpreted by me (3pts min.). @ -None X-rays interpreted by me (1pt min.). @ -None done CT interpreted by me (1pt min.). @ -None done U/S interpreted by me (1pt. min.). @ -None done What testing was considered but not performed or refused? (CT, X-rays, U/S, labs)? Why? @ -None What meds were considered but not given or refused? Why? @ -None Did you discuss the management of the patient with other professionals (professionals i.e. , PA, PROCESS COORDINATOR, lab, RT, psych nurse, administrator social welfare, order booker, teacher, grant officer, continuous pillowcase cutter)? Give summary @ -No Was smoking cessation discussed for >3mins.? @ -No Was critical care preformed (if so, how long)? @ -No Were there social determinants of health that impacted care today? How? (Homelessness, low income, unemployed, alcoholism, drug addiction, transportati on, low edu. Level, literacy, decrease access to med. care, fpc, rehab)? @ -No Was there de-escalation of care discussed even if they declined (Discuss DNR or withdrawal of care, Hospice)? DNR status @ -No What co-morbidities impacted this encounter? (DM, HTN, Smoking, COPD, CAD, Cancer, CVA, ARF, Chemo, Hep., AIDS, mental health diagnosis, sleep apnea, morbid obesity)? @ -None Was patient admitted / discharged? Hospital course, mention meds given and route, prescriptions, significant lab abnormalities, going to OR and other pertinent info. @ -Discharge. 59-year-old female presenting to the emergency department for chronic back pain. There are no red flag findings concerning for cauda equina. Fed with pain medication. Struck to follow-up with pain management and neurosurgeon as scheduled. Return parameters discussed. Case discussed with Dr. Ruiz Undiagnosed new problem with uncertain prognosis? @ -No Drug Therapy requiring intensive monitoring for toxicity (Heparin, Nitro, I nsulin, Cardizem)? @ -No Were any procedures done? @ -No Diagnosis/symptom? @ -Back pain Acute, or Chronic, or Acute on Chronic? @ -Acute on chronic Uncomplicated (without systemic symptoms) or Complicated (systemic symptoms)? @ -Uncomplicated Side effects of treatment? @ -No Exacerbation, Progression, or Severe Exacerbation? @ -No Poses a threat to life or bodily function? How? (Chest pain, [place], [place], pneumonia, PE, COPD, DKA, ARF, appy, cholecystitis, CVA, Diverticulitis, Homicidal, Suicidal, threat to staff... and all critical care pts) @ -No Disposition Clinical Impression: Sciatica Disposition: HOME SELF-CARE Condition: Good Instructions (If sedation given, give patient instructions): Sciatica (ED) Additional Instructions: Please return to the Emergency Department if symptoms worsen or any other concerns. Is patient prescribed a controlled substance at d/c from ED?: No Referrals: Ihsan Ding DO [Primary Care Provider] - 1-2 days Time of Disposition: 12:08
[2024-12-09] MEDS: HYDROmorphone 1 MG/ML 1 ML SYRINGE IM STA (12:22)
[2024-12-09] MEDS: LIDOCAINE 4% PATCH TOPICAL ONE (12:22)
[2024-12-09 12:36] VITALS: BP 105/72; PULSE 56; TEMP 98.1
== END 2024-12-09 12:32 | disposition home or self-care (01) ==
LOC: EC 11:23
DX: M54.42 Lumbago with sciatica, left side (principal); Z87.891 Personal history of nicotine dependence; Z88.0 Allergy status to penicillin; Z88.5 Allergy status to narcotic agent
CPT/HCPCS: 99283; 96372; J1171

== ENCOUNTER 2024-12-21 10:16 | Emergency (ER) | payer MEDICARE, OTHER ==
[2024-12-21 10:26] VITALS: TEMP 98.5
--- NOTE | 2024-12-21 10:36 | ED ---
General Adult HPI - General Chief complaint: Neuro Symptoms/Deficit Stated complaint: Headache/Numbness Time Seen by Provider: 12/21/24 10:18 Source: patient, EMS, RN notes reviewed Mode of arrival: EMS Limitations: no limitations - History of Present Illness Initial comments: Patient is a 59-year-old female presenting to the emergency department with c oncerns with paresthesia. Onset of symptoms was less than an hour ago. No weakness. No confusion. No speech problems. Patient does have headache however headache is chronic and unchanged. No history of similar symptoms previously. - Related Data Home Medications Medication Instructions Recorded Confirmed Ezetimibe [Zetia] 10 mg PO HS 09/05/14 12/21/24 Levothyroxine Sodium [Synthroid] 25 mcg PO DAILY 03/13/16 12/21/24 Omeprazole 40 mg PO HS 11/13/16 12/21/24 clonazePAM [KlonoPIN] 0.5 mg PO BID PRN 05/03/17 12/21/24 Methylphenidate HCl 20 mg PO TID@0500,1200,1700 09/09/18 12/21/24 Atorvastatin Calcium [Lipitor] 10 mg PO HS 10/06/19 12/21/24 estradioL [Estrace] 0.5 mg PO DAILY 10/06/19 12/21/24 Citalopram Hydrobromide [CeleXA] 40 mg PO DAILY 02/09/22 12/21/24 Fluticasone Nasal [place] [Flonase 1 spr EA NOSTRIL BID 02/04/23 12/21/24 Nasal Zirconia] Brexpiprazole [Rexulti] 0.5 mg PO HS 12/21/24 12/21/24 busPIRone HCl [Buspar] 5 mg PO BID 12/21/24 12/21/24 Previous Rx's Medication Instructions Recorded oxyCODONE HCL/ACETAMINOPHEN 1 tab PO TID PRN 30 Days #90 tab 11/22/24 [Percocet 7.5-325 mg] tiZANidine [Zanaflex] 4 mg PO TID PRN 30 Days #90 tab 11/22/24 Allergies Allergy/AdvReac Type Severity Reaction Status Date / Time Penicillins Allergy Childhood Verified 12/21/24 12:52 Rash morphine AdvReac Chest Pain Verified 12/21/24 12:52 Review of Systems ROS Statement: Those systems with pertinent positive or pertinent negative responses have been documented in the HPI. ROS Other: All systems not noted in ROS Statement are negative. Constitutional: Denies: fever Eyes: Denies: eye pain ENT: Denies: ear pain Respiratory: Denies: cough, dyspnea Cardiovascular: Denies: chest pain Endocrine: Denies: fatigue Gastrointestinal: Denies: abdominal pain Neurological: Reports: as per HPI, headache, paresthesias. Denies: weakness, confusion Past Medical History Past Medical History: Asthma, COPD, GERD/Reflux, Hyperlipidemia, Osteoarthritis (OA), Syncope, Thyroid Disorder Additional Past Medical History / Comment(s): kidney stones, hypoglycemia, chronic neck and L shoulder, lower back pain. Hx L facial and L ankle fxs, sinus problems, vertigo, falls in past due to syncope, low BP at times. Fusion of sacrum and iliac crest-per , spinal cord stimulator in cervical spine, diverticulosis/diverticulitis. 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 rectocele repair, d&c , colon resection 05/15/24 Past Anesthesia/Blood Transfusion Reactions: Previous Problems w/ Anesthesia Additional Past Anesthesia/Blood Transfusion Reaction / Comment(s): "Takes longer to wake up from anesthesia." - just once Past Psychological History: ADD/ADHD, Anxiety, Depression Smoking Status: Former smoker Past Alcohol Use History: None Reported Past Drug Use History: None Reported - Past Family History Mother History Unknown: Yes Family Medical History: Cancer Additional Family Medical History / Comment(s): lung Father Family Medical History: Asthma, COPD, Osteoarthritis (OA) Additional Family Medical History / Comment(s): Father at age 80 yrs. Sister(s) Family Medical History: Diabetes Mellitus, Thyroid Disorder General Exam Limitations: no limitations General appearance: alert, in no apparent distress Head exam: Present: normocephalic Eye exam: Present: normal appearance, PERRL, EOMI Neck exam: Present: normal inspection Respiratory exam: Present: normal lung sounds bilaterally Cardiovascular Exam: Present: regular rate, normal rhythm GI/Abdominal exam: Present: soft. Absent: tenderness Extremities exam: Present: normal inspection. Absent: pedal edema, calf tenderness Neurological exam: Present: alert, oriented X3, CN II-XII intact. Absent: motor sensory deficit Expanded Neurological exam: Present: protecting the airway Patient oriented to: Present: person, place, time Cranial nerves: EOM's Intact: Normal, Facial Sensation: Normal Sensory exam: Upper Extremity Light Touch: Normal, Lower Extremity Light Touch: Normal Motor strength exam: RUE: 5, LUE: 5, RLE: 5, LLE: 5 Eye Response: (4) open spontaneously Motor Response: (6) obeys commands Verbal Response: (5) oriented Psychiatric exam: Present: normal affect, normal mood Skin exam: Present: normal color Course Vital Signs 12/21/24 12/21/24 10:18 12:08 Temperature 98.5 F Pulse Rate 64 58 L Respiratory 18 13 Rate Blood Pressure 110/55 107/56 O2 Sat by Pulse 96 96 Oximetry EKG Findings - EKG Results: EKG: interpreted by ERMD, sinus rhythm, normal axis, normal QRS, normal ST/T Medical Decision Making - Medical Decision Making Was pt. sent in by a medical professional or institution (MARLO Maldonado, MER[employer] AND ACQUISITIONS ATTORNEY, urgent care, hospital, or senior living...) When possible be specific @ -No Did you speak to anyone other than the patient for history (EMS, parent, family, police, friend...)? What history was obtained from this source @ -No Did you review nursing and triage notes (agree or disagree)? Why? @ -I reviewed and agree with nursing and triage notes Were old charts reviewed (outside hosp., previous admission, EMS record, old EKG, old radiological studies, urgent care reports/EKG's, senior living records)? Report findings @ -No old charts were reviewed Differential Diagnosis (chest pain, altered mental status, abdominal pain women, abdominal pain men, vaginal bleeding, weakness, fever, dyspnea, syncope, headache, dizziness, GI bleed, back pain, seizure, CVA, palpatations, mental health, musculoskeletal)? @ -Differential Weakness: Hypoglycemia, shock, sepsis, hyponatremia, anemia, infection, [place], ETOH, adverse medicine reaction, overdose, stroke, this is not meant to be an all-inclusive list. Differential Headache: Migraine, tension, cluster, carbon monoxide, central venous thrombosis, pension karma temporal arteritis, acute closure glaucoma, intercranial hemorrhage, mastoiditis, sinusitis, head injury, this is not meant to be an all-inclusive list. EKG interpreted by me (3pts min.). @ -As above X-rays interpreted by me (1pt min.). @ -Chest x-ray shows no acute process CT interpreted by me (1pt min.). @ -CT scan of the brain without acute abnormality U/S interpreted by me (1pt. min.). @ -None done What testing was considered but not performed or refused? (CT, X-rays, U/S, labs)? Why? @ -None What meds were considered but not given or refused? Why? @ -None Did you discuss the management of the patient with other professionals (professionals i.e. , PA, [employer]GERS AND ACQUISITIONS ATTORNEY, lab, RT, psych nurse, social science instructor, undergraduate intern, teacher, law enforcement officer, caser in)? Give summary @ -No Was smoking cessation discussed for >3mins.? @ -No Was critical care preformed (if so, how long)? @ -No Were there social determinants of health that impacted care today? How? (Homelessness, low income, unemployed, alcoholism, drug addiction, transportation, low edu. Level, literacy, decrease access to med. care, fdc, rehab)? @ -No Was there de-escalation of care discussed even if they declined (Discuss DNR or withdrawal of care, Hospice)? DNR status @ -No What co-morbidities impacted this encounter? (DM, HTN, Smoking, COPD, CAD, [place], CVA, ARF, Chemo, Hep., AIDS, mental health diagnosis, sleep apnea, morbid obesity)? @ -None Was patient admitted / discharged? Hospital course, mention meds given and route, prescriptions, significant lab abnormalities, going to OR and other pertinent info. @ -Patient presents with chronic headache. Patient has right arm paresthesia. On reevaluation patient only complains of continued headache and states normally she receives Dilaudid for this and does request this. Patient is updated on results and need for follow-up. Undiagnosed new problem with uncertain prognosis? @ -No Drug Therapy requiring intensive monitoring for toxicity (Heparin, Nitro, Insulin, Cardizem)? @ -No Were any procedures done? @ -No Diagnosis/symptom? @ -Cephalgia, paresthesia Acute, or Chronic, or Acute on Chronic? @ -Acute on chronic, acute Uncomplicated (without systemic symptoms) or Complicated (systemic symptoms)? @ -Default Side effects of treatment? @ -No Exacerbation, Progression, or Severe Exacerbation? @ -No Poses a threat to life or bodily function? How? (Chest pain, [place], [place], pneumonia, PE, COPD, DKA, ARF, appy, cholecystitis, CVA, Diverticulitis, Homicidal, Suicidal, threat to staff... and all critical care pts) @ -No - Lab Data Result diagrams: 12/21/24 11:13 12/21/24 10:43 Lab Results 12/21/24 12/21/24 Range/Units 10:43 11:13 WBC 9.32 (4.50-10.00) 10*3/uL RBC 3.63 L (4.10-5.20) 10*6/uL Hgb 10.5 L (12.0-15.0) g/dL Hct 31.4 L (37.2-46.3) % MCV 86.5 (80.0-97.0) fL MCH 28.9 (27.0-32.0) pg MCHC 33.4 (32.0-37.0) g/dL Plt Count 219 (140-440) 10*3/uL MPV 10.7 (9.5-12.2) fL Immature Gran % (Auto) 0.4 % Neutrophils % 52.0 % Lymphocytes % 34.8 % Monocytes % 9.2 % Eosinophils % 3.0 % Basophils % 0.6 % Immature Gran # 0.04 (0.00-0.04) 10*3/uL Neutrophils # 4.84 (1.80-7.70) 10*3/uL Lymphocytes # 3.24 (0.90-5.00) 10*3/uL Monocytes # 0.86 (0.20-1.00) 10*3/uL Eosinophils # 0.28 (0.04-0.35) 10*3/uL Basophils # 0.06 (0.00-0.10) 10*3/uL Sodium 138 (137-145) mmol/L Potassium 4.7 (3.5-5.1) mmol/L Chloride 105 (98-107) mmol/L Carbon Dioxide 24 (22-30) mmol/L Anion Gap 9 mmol/L BUN 5 L (7-17) mg/dL Creatinine 0.81 (0.52-1.04) mg/dL Est GFR (CKD-EPI)AfAm >90 (>60 ml/min/1.73 sqM) Est GFR (CKD-EPI)NonAf 80 (>60 ml/min/1.73 sqM) Glucose 91 (74-99) mg/dL Calcium 8.4 (8.4-10.2) mg/dL Magnesium 1.8 (1.6-2.3) mg/dL Total Bilirubin 0.6 (0.2-1.3) mg/dL AST 20 (14-36) U/L ALT 13 (4-34) U/L Alkaline Phosphatase 79 (38-126) U/L Total Protein 6.6 (6.3-8.2) g/dL Albumin 3.9 (3.5-5.0) g/dL Disposition Clinical Impression: Headache, Paresthesia Disposition: HOME SELF-CARE Condition: Stable Instructions (If sedation given, give patient instructions): Acute Headache (ED), Paresthesia (ED) Additional Instructions: Please do follow-up with your primary care physician in the next couple of days for recheck. Return for weakness, confusion, speech problems, visual problems, worsening or changing symptoms or other concerns. Is patient prescribed a controlled substance at d/c from ED?: No Referrals: Ihsan Ding DO [Primary Care Provider] - 1-2 days Time of Disposition: 13:15
[2024-12-21] MEDS: LORazepam 2 MG/ML INJ IV STA (10:46)
[2024-12-21] MEDS: ACETAMINOPHEN IV (For NPO) 1,000 MG in EMPTY BAG 1 BAG IVPB STA (10:55)
[2024-12-21 11:35] LABS: Basophils # (A) 0.06 10*3/uL (0.00-0.10); Basophils % (A) 0.6 %; Eosinophils # (A) 0.28 10*3/uL (0.04-0.35); HCT 31.4 % (37.2-46.3); HGB 10.5 g/dL (12.0-15.0); Lymphocytes # (A) 3.24 10*3/uL (0.90-5.00); Lymphocytes % (A) 34.8 %; MCH 28.9 pg (27.0-32.0); MCHC 33.4 g/dL (32.0-37.0); MCV 86.5 fL (80.0-97.0); Mean Platelet Volume 10.7 fL (9.5-12.2); Monocytes # (A) 0.86 10*3/uL (0.20-1.00); Monocytes % (A) 9.2 %; Neutrophils # (A) 4.84 10*3/uL (1.80-7.70); Platelet Count 219 10*3/uL (140-440); RBC 3.63 10*6/uL (4.10-5.20); RDW 14.8 % (11.5-14.5); WBC 9.32 10*3/uL (4.50-10.00)
[2024-12-21 11:44] LABS: ALT 13 U/L (4-34); AST 20 U/L (14-36); African American GFR (CKD) >90 (>60 ml/min/1.73 sqM); Albumin 3.9 g/dL (3.5-5.0); Alkaline Phosphatase 79 U/L (38-126); Anion Gap 9 mmol/L; Blood Urea Nitrogen 5 mg/dL (7-17); Calcium 8.4 mg/dL (8.4-10.2); Carbon Dioxide 24 mmol/L (22-30); Chloride 105 mmol/L (98-107); Glucose 91 mg/dL (74-99); Magnesium 1.8 mg/dL (1.6-2.3); Non-African American GFR(CKD) 80 (>60 ml/min/1.73 sqM); Potassium 4.7 mmol/L (3.5-5.1); Sodium 138 mmol/L (137-145); Total Bilirubin 0.6 mg/dL (0.2-1.3); Total Protein 6.6 g/dL (6.3-8.2)
--- NOTE | 2024-12-21 12:07 | XR ---
EXAMINATION TYPE: XR chest 2V DATE OF EXAM: 12/21/2024 11:28 AM COMPARISON: 09/11/2024 CLINICAL INDICATION: Female, 59 years old with history of Weakness, , TECHNIQUE: PA and lateral views FINDINGS: The cardiomediastinal silhouette, aorta, and pulmonary vasculature are within normal limits. Lungs an d pleural spaces are clear. ACDF hardware. Spinal stimulator array centered at the lower cervical spi ne. IMPRESSION: No acute cardiopulmonary process. [facility], , 12/21/2024 12:05 PM
--- NOTE | 2024-12-21 12:10 | CT ---
EXAMINATION TYPE: CT brain wo con DATE OF EXAM: 12/21/2024 11:54 AM COMPARISON: 03/21/2024 CLINICAL INDICATION: Female, 59 years old with history of barclay, Headache, TECHNIQUE: Examination was done in axial plane without intravenous contrast. Coronal and sagittal r econstructions performed. CT DLP: 1097.9 mGycm, Automated exposure control for dose reduction was used. FINDINGS: There is no evidence of acute intracranial hemorrhage, acute ischemic changes, mass, mass-effect, or extra-axial fluid collection. There is no effacement of cerebral sulci or basal subarachnoid cister ns. There is no hydrocephalus. There is no midline shift. Rich-white matter distinction is preserv ed. Mild volume loss overlying the bifrontal convexities. Rightward nasal septal deviation. Paranasal sinuses and mastoid air cells are well pneumatized. Orbit s and globes are intact. Suspect a 7 mm sebaceous cyst along the right anterior superior scalp. IMPRESSION: Mild bifrontal cerebral cortical volume loss. No acute intracranial abnormality seen. [facility], , 12/21/2024 12:08 PM
[2024-12-21] MEDS: METOCLOPRAMIDE 5 MG/ML 2 ML VIAL IVP STA (12:24)
[2024-12-21 13:04] LABS: INR 1.3 (<1.2); Prothrombin Time 13.6 sec (10.0-12.5)
[2024-12-21 13:16] LABS: Partial Thromboplastin Time 19.1 sec (22.0-30.0)
[2024-12-21] MEDS: HYDROmorphone 0.5 MG/0.5 ML SYRINGE IVP STA (13:24)
[2024-12-21 13:29] VITALS: BP 97/56; PULSE 63; RESP 14
== END 2024-12-21 13:31 | disposition home or self-care (01) ==
LOC: EC 10:16
DX: R20.2 Paresthesia of skin (principal); R51.9 Headache, unspecified; Z88.0 Allergy status to penicillin; Z88.5 Allergy status to narcotic agent; Z87.891 Personal history of nicotine dependence
CPT/HCPCS: 36415; 93005; 80053; 83735; 85025; 85610; 85730; 71046; 70450; 99285; 96374; 96375 ×3; J2060; J2765; J0131; J1171

== ENCOUNTER 2025-01-03 15:35 | Emergency (ER) | payer MEDICARE, OTHER ==
--- NOTE | 2025-01-03 16:42 | ED ---
Back Pain HPI - General Chief Complaint: Back Pain/Injury Stated Complaint: back and leg pain Time Seen by Provider: 01/03/25 15:57 Source: patient, RN notes reviewed Limitations: no limitations - History of Present Illness Initial Comments: This is a 59-year-old female who presents to the emergency department for low back pain. Patient has a history of chronic back problems and was supposed to have surgery on her lower back, however due to insurance issues this got delayed and they are going to have her start with physical therapy. States that yesterday she started to have increasing pain in her lower back going down both of her legs, which is not typical for her. States that the left leg is much more painful than the right. Denies any new injuries or loss of bowel/bladder control or saddle anesthesia. She does take Percocet several times a day, however this has not been adequately controlling this pain. States that her neurosurgeon advised she come in for further evaluation. - Related Data Home Medications Medication Instructions Recorded Confirmed Ezetimibe [Zetia] 10 mg PO HS 09/05/14 12/21/24 Levothyroxine Sodium [Synthroid] 25 mcg PO DAILY 03/13/16 12/21/24 Omeprazole 40 mg PO HS 11/13/16 12/21/24 clonazePAM [KlonoPIN] 0.5 mg PO BID PRN 05/03/17 12/21/24 Methylphenidate HCl 20 mg PO TID@0500,1200,1700 09/09/18 12/21/24 Atorvastatin Calcium [Lipitor] 10 mg PO HS 10/06/19 12/21/24 estradioL [Estrace] 0.5 mg PO DAILY 10/06/19 12/21/24 Citalopram Hydrobromide [CeleXA] 40 mg PO DAILY 02/09/22 12/21/24 Fluticasone Nasal [place] [Flonase 1 spr EA NOSTRIL BID 02/04/23 12/21/24 Nasal [place]] Brexpiprazole [Rexulti] 0.5 mg PO HS 12/21/24 12/21/24 busPIRone HCl [Buspar] 5 mg PO BID 12/21/24 12/21/24 Previous Rx's Medication Instructions Recorded oxyCODONE HCL/ACETAMINOPHEN 1 tab PO TID PRN 30 Days #90 tab 11/22/24 [Percocet 7.5-325 mg] tiZANidine [Zanaflex] 4 mg PO TID PRN 30 Days #90 tab 11/22/24 Allergies Allergy/AdvReac Type Severity Reaction Status Date / Time Penicillins Allergy Childhood Verified 01/03/25 15:53 Rash morphine AdvReac Chest Pain Verified 01/03/25 15:53 Review of Systems ROS Statement: Those systems with pertinent positive or pertinent negative responses have been documented in the HPI. ROS Other: All systems not noted in ROS Statement are negative. Past Medical History Past Medical History: Asthma, COPD, GERD/Reflux, Hyperlipidemia, Osteoarthritis (OA), Syncope, Thyroid Disorder Additional Past Medical History / Comment(s): kidney stones, hypoglycemia, chronic neck and L shoulder, lower back pain. Hx L facial and L ankle fxs, sinus problems, vertigo, falls in past due to syncope, low BP at times. Fusion of sacrum and iliac crest-per , spinal cord stimulator in cervical spine, diverticulosis/diverticulitis. 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 rectocele repair, d&c , colon resection 05/15/24 Past Anesthesia/Blood Transfusion Reactions: Previous Problems w/ Anesthesia Additional Past Anesthesia/Blood Transfusion Reaction / Comment(s): "Takes longer to wake up from anesthesia." - just once Past Psychological History: ADD/ADHD, Anxiety, Depression Smoking Status: Former smoker Past Alcohol Use History: None Reported Past Drug Use History: None Reported - Past Family History Mother History Unknown: Yes Family Medical History: Cancer Additional Family Medical History / Comment(s): lung Father Family Medical History: Asthma, COPD, Osteoarthritis (OA) Additional Family Medical History / Comment(s): Father at age 80 yrs. Sister(s) Family Medical History: Diabetes Mellitus, Thyroid Disorder General Exam Limitations: no limitations General appearance: alert, in no apparent distress Head exam: Present: atraumatic, normocephalic, normal inspection Respiratory exam: Present: normal lung sounds bilaterally. Absent: respiratory distress, wheezes, rales, rhonchi, stridor Cardiovascular Exam: Present: regular rate, normal rhythm Neurological exam: Present: alert, oriented X3, CN II-XII intact Psychiatric exam: Present: normal affect, normal mood Skin exam: Present: warm, dry, intact, normal color. Absent: rash Course Vital Signs 01/03/25 01/03/25 01/03/25 15:49 18:13 19:51 Temperature 98.5 F 97.9 F 97.7 F Pulse Rate 70 71 79 Respiratory 20 20 18 Rate Blood Pressure 106/73 102/68 117/74 O2 Sat by Pulse 96 95 98 Oximetry 01/03/25 20:42 Temperature 97.8 F Pulse Rate 71 Respiratory 19 Rate Blood Pressure 110/79 O2 Sat by Pulse 99 Oximetry Medical Decision Making - Medical Decision Making This is a 59-year-old female who presents to the emergency department for low back pain. Was pt. sent in by a medical professional or institution? @ -No Did you speak to anyone other than the patient for history? @ -No Did you review nursing and triage notes? @ -Yes, and I agree, it is accurate with regards to the patient's symptoms. Were old charts reviewed? @ -No Differential Diagnosis? @ -Differential Back Pain: Strain, zoster, cauda equina syndrome, epidural abscess, vertebral osteomyelitis, discitis, fracture, subluxation, disc herniation, DJD, spinal stenosis, dissection, AAA, pancreatitis, peptic ulcer disease, pyelonephritis, kidney stone, this is not meant to be an all-inclusive list. EKG interpreted by me (3pts min.)? @ -Not obtained X-rays interpreted by me (1pt min.)? @ -Not obtained CT interpreted by me (1pt min.)? @ -CT scan of the lumbar spine obtained. My interpretation identifies no acute fractures. U/S interpreted by me (1pt. min.)? @ -Duplex ultrasound of the left lower extremity obtained. My interpretation identifies no evidence of a DVT. What testing was considered but not performed? (CT, X-rays, U/S, labs)? Why? @ -None What meds were considered but not given? Why? @ -None Did you discuss the management of the patient with other professionals? @ -No Did you reconcile home meds? @ -No Was smoking cessation discussed for >3mins.? @ -No Was critical care preformed (if so, how long)? @ -No Were there social determinants of health that impacted care today? How? (Homelessness, low income, unemployed, alcoholism, drug addiction, transportation, low edu. Level, literacy, decrease access to med. care, long term, rehab)? @ -No Was there de-escalation of care discussed even if they declined? (Discuss DNR or withdrawal of care, Hospice)? @ -No What co-morbidities impacted this encounter? (DM, HTN, Smoking, COPD, CAD, Cancer, CVA, Hep., AIDS, mental health diagnosis, sleep apnea, morbid obesity)? @ -Chronic back pain, osteoarthritis Was patient admitted / discharged? @ -Discharged. Lab work demonstrates mild leukocytosis and is otherwise unremarkable. Urinalysis negative for signs of infection. CT scan of the lumbar spine demonstrates L5-S1 possible central disc protrusion/extrusion and further scattered degenerative changes. Patient states that this is the area that they were previously concerned about and had initially planned on doing surgery on. Duplex ultrasound of the left lower extremity obtained as well re vealing no evidence of a DVT or other acute process. Pain was treated in the emergency department. She is concerned about treating her pain going forward as her home medication has not been effective. Fentanyl patch applied to be removed in 72 hours. Advised taking her Percocet only for breakthrough pain in the meantime and to otherwise follow-up with her neurosurgeon and PCP. Patient discharged home in stable condition. Case discussed with ED attending Dr. Coppola. Return precautions reviewed in depth, the patient is instructed to return to the emergency department with any new, worsening, or concerning symptoms. Patient verbalized understanding. Undiagnosed new problem with uncertain prognosis? @ -None Drug Therapy requiring intensive monitoring for toxicity (Heparin, Nitro, Insulin, Cardizem)? @ -None Were any procedures done? @ -None Diagnosis/symptom? @ -Chronic back pain, lumbar radiculopathy Acute, or Chronic, or Acute on Chronic? @ -Chronic Uncomplicated (without systemic symptoms) or Complicated (systemic symptoms)? @ -Uncomplicated Side effects of treatment? @ -None Exacerbation, Progression, or Severe Exacerbation] @ -Exacerbation Poses a threat to life or bodily function? @ -The pain is limiting her ability to function - Lab Data Result diagrams: 01/03/25 17:08 01/03/25 17:08 Lab Results 01/03/25 01/03/25 01/03/25 Range/Units 16:46 17:08 17:08 WBC 12.70 H (4.50-10.00) 10*3/uL RBC 3.82 L (4.10-5.20) 10*6/uL Hgb 11.2 L (12.0-15.0) g/dL Hct 32.6 L (37.2-46.3) % MCV 85.3 (80.0-97.0) fL MCH 29.3 (27.0-32.0) pg MCHC 34.4 (32.0-37.0) g/dL Plt Count 238 (140-440) 10*3/uL MPV 10.2 (9.5-12.2) fL Immature Gran % (Auto) 0.9 % Neutrophils % 56.4 % Lymphocytes % 33.5 % Monocytes % 7.2 % Eosinophils % 1.6 % Basophils % 0.4 % Immature Gran # 0.11 H (0.00-0.04) 10*3/uL Neutrophils # 7.17 (1.80-7.70) 10*3/uL Lymphocytes # 4.25 (0.90-5.00) 10*3/uL Monocytes # 0.92 (0.20-1.00) 10*3/uL Eosinophils # 0.20 (0.04-0.35) 10*3/uL Basophils # 0.05 (0.00-0.10) 10*3/uL Sodium 135 L (137-145) mmol/L Potassium 4.7 (3.5-5.1) mmol/L Chloride 101 (98-107) mmol/L Carbon Dioxide 27 (22-30) mmol/L Anion Gap 7 mmol/L BUN 8 (7-17) mg/dL Creatinine 0.73 (0.52-1.04) mg/dL Est GFR (CKD-EPI)AfAm >90 (>60 ml/min/1.73 sqM) Est GFR (CKD-EPI)NonAf >90 (>60 ml/min/1.73 sqM) Glucose 104 H (74-99) mg/dL Calcium 8.9 (8.4-10.2) mg/dL Magnesium 2.0 (1.6-2.3) mg/dL Total Bilirubin 0.6 (0.2-1.3) mg/dL AST 23 (14-36) U/L ALT 15 (4-34) U/L Alkaline Phosphatase 73 (38-126) U/L Total Protein 6.9 (6.3-8.2) g/dL Albumin 4.1 (3.5-5.0) g/dL Urine Color Colorless Urine Appearance Clear (Clear) Urine pH 6.0 (5.0-8.0) Ur Specific [place] 1.002 (1.001-1.035) Urine Protein Negative (Negative) Urine Glucose (UA) Negative (Negative) Urine Ketones Negative (Negative) Urine Blood Negative (Negative) Urine Nitrite Negative (Negative) Urine Bilirubin Negative (Negative) Urine Urobilinogen <2.0 (<2.0) mg/dL Ur Leukocyte Esterase Negative (Negative) - Radiology Data Radiology results: report reviewed, image reviewed Disposition Clinical Impression: Chronic back pain, Lumbar radiculopathy, Lumbar disc herniation Disposition: HOME SELF-CARE Instructions (If sedation given, give patient instructions): Chronic Back Pain (DC) Additional Instructions: Return to the emergency department with any new, worsening, or concerning symptoms. Remove the Fentanyl patch in 72 hours. When this begins to start working, take your Percocet just for breakthrough pain. Follow-up with your neurosurgeon. Is patient prescribed a controlled substance at d/c from ED?: No Referrals: Ihsan Ding DO [Primary Care Provider] - 1-2 days Time of Disposition: 20:35
[2025-01-03 16:54] LABS: Appearance,Urine Clear (Clear); Bilirubin,Urine Negative (Negative); Blood,Urine Negative (Negative); Color,Urine Colorless; Glucose,Urine (UA) Negative (Negative); Ketones,Urine Negative (Negative); Leukocyte Esterase,Urine Negative (Negative); Nitrite,Urine Negative (Negative); Protein,Urine Negative (Negative); Specific Gravity,Urine 1.002 (1.001-1.035); Urobilinogen,Urine <2.0 mg/dL (<2.0)
[2025-01-03] MEDS: DEXAMETHASONE SOD PHOSPHATE 10 MG/ML 1 ML VIAL IVP STA (17:11)
[2025-01-03] MEDS: KETOROLAC 15 MG/ML 1 ML VIAL IVP STA (17:12)
[2025-01-03] MEDS: HYDROmorphone 1 MG/ML 1 ML SYRINGE IVP STA ×3 (17:13→18:26)
[2025-01-03 17:16] LABS: Basophils # (A) 0.05 10*3/uL (0.00-0.10); Basophils % (A) 0.4 %; Eosinophils % (A) 1.6 %; HCT 32.6 % (37.2-46.3); HGB 11.2 g/dL (12.0-15.0); Lymphocytes # (A) 4.25 10*3/uL (0.90-5.00); Lymphocytes % (A) 33.5 %; MCH 29.3 pg (27.0-32.0); MCHC 34.4 g/dL (32.0-37.0); MCV 85.3 fL (80.0-97.0); Mean Platelet Volume 10.2 fL (9.5-12.2); Monocytes # (A) 0.92 10*3/uL (0.20-1.00); Monocytes % (A) 7.2 %; Neutrophils # (A) 7.17 10*3/uL (1.80-7.70); Neutrophils % (A) 56.4 %; Platelet Count 238 10*3/uL (140-440); RBC 3.82 10*6/uL (4.10-5.20); RDW 15.4 % (11.5-14.5)
[2025-01-03 17:30] LABS: ALT 15 U/L (4-34); AST 23 U/L (14-36); African American GFR (CKD) >90 (>60 ml/min/1.73 sqM); Albumin 4.1 g/dL (3.5-5.0); Alkaline Phosphatase 73 U/L (38-126); Anion Gap 7 mmol/L; Blood Urea Nitrogen 8 mg/dL (7-17); Calcium 8.9 mg/dL (8.4-10.2); Carbon Dioxide 27 mmol/L (22-30); Chloride 101 mmol/L (98-107); Glucose 104 mg/dL (74-99); Non-African American GFR(CKD) >90 (>60 ml/min/1.73 sqM); Potassium 4.7 mmol/L (3.5-5.1); Sodium 135 mmol/L (137-145); Total Bilirubin 0.6 mg/dL (0.2-1.3); Total Protein 6.9 g/dL (6.3-8.2)
[2025-01-03] MEDS: SODIUM CHLORIDE 0.9% 1,000 ML IV ONE (18:18)
--- NOTE | 2025-01-03 18:22 | CT ---
EXAMINATION TYPE: CT lumbar spine wo con DATE OF EXAM: 01/03/2025 5:39 PM COMPARISON: 10/01/2024.. CLINICAL INDICATION: Female, 59 years old with history of Increasing pain, radiculopathy; , Chronic l ower back pain, increasing pain. TECHNIQUE: Multiple axial images were obtained from the midportion of T11 through the sacroiliac capri nts. Soft tissue and bone windows in coronal and sagittal planes were obtained and reviewed. Contrast used: mL of , (None, if empty). Oral contrast used: (None, if empty). CT DLP: 1153.6 mGycm, Automated exposure control for dose reduction was used. FINDINGS: Alignment: There are 5 lumbar type vertebral bodies within normal alignment. Bone: Fixation hardware at the sacroiliac joint on the right with hardware at L4-L5 and S1. Hardware appears intact and in appropriate position. Perineural cysts seen at the level of S3 on the right me asuring up to 2.5 cm. Probable vertebral body hemangioma at L1. Multilevel degeneration with osteophy te formation disc space to mechanism and facet joint arthropathy. Discs: T12-L1: No spinal canal or neural foraminal stenosis is identified. L1-L2: No spinal canal or neural foraminal stenosis is identified. L2-L3: No spinal canal or neural foraminal stenosis is identified. L3-L4: No spinal canal or neural foraminal stenosis is identified. L4-L5: Streak artifact at this level. There is moderate to severe left and mild right neural foramina l stenosis secondary to facet joint arthropathy No spinal canal or neural foraminal stenosis is ident ified. L5-S1: Streak artifact present at this level. There is moderate bilateral neural foraminal stenosis s econdary to facet joint arthropathy. The spinal canal appears patent however there is a left central disc protrusion/extrusion may be present Other: Atherosclerosis of the arterial vasculature. No obstructive uropathy. IMPRESSION: 1. Postsurgical changes without evidence of fracture or hardware failure. 2. L5-S1 possible left central disc protrusion/extrusion. Further evaluation with MRI recommended 3. Mild to moderate degeneration changes spine with sagittal moderate severe left neural foraminal s tenosis at L4-L5 secondary to facet arthropathy. [facility], , 01/03/2025 6:19 PM
--- NOTE | 2025-01-03 20:15 | US ---
EXAMINATION TYPE: US venous doppler duplex LE LT DATE OF EXAM: 01/03/2025 7:18 PM COMPARISON: NONE CLINICAL INDICATION: Female, 59 years old with history of Leg pain; left calf pain. not on thinners. no hx dvt, Pain TECHNIQUE: The lower extremity deep venous system is examined utilizing real time linear array sonog esther with graded compression, color doppler sonography, and spectral doppler. SIDE PERFORMED: Left FINDINGS: VESSELS IMAGED: Common Femoral Vein Deep Femoral Vein Greater Saphenous Vein * Femoral Vein Popliteal Vein Small Saphenous Vein * Proximal Calf Veins (* superficial vessels) Left Leg: Negative for DVT, Color Doppler imaging shows patency of the vessels. Spectral waveforms a re within normal limits. IMPRESSION: No ultrasound evidence for deep venous thrombosis. [facility], , 01/03/2025 8:12 PM
[2025-01-03 20:44] VITALS: BP 110/79; PULSE 71; RESP 19; TEMP 97.8
== END 2025-01-03 20:44 | disposition home or self-care (01) ==
LOC: EC 15:35
DX: G89.29 Other chronic pain (principal); M51.16 Intervertebral disc disorders with radiculopathy, lumbar region; M51.26 Other intervertebral disc displacement, lumbar region; M19.90 Unspecified osteoarthritis, unspecified site; Z87.891 Personal history of nicotine dependence; Z88.0 Allergy status to penicillin; Z88.5 Allergy status to narcotic agent
CPT/HCPCS: 36415; 80053; 83735; 85025; 81003; 93971; 72131; 99284; 96374; 96375 ×2; 96376 ×2; 96361 ×2; J1100; J1171; J1885

== ENCOUNTER 2025-01-07 10:08 | Emergency (ER) | payer MEDICARE, OTHER ==
[2025-01-07 10:35] VITALS: RESP 16
--- NOTE | 2025-01-07 11:06 | ED ---
Back Pain HPI - General Chief Complaint: Back Pain/Injury Stated Complaint: back pain Time Seen by Provider: 01/07/25 10:19 Source: patient, RN notes reviewed Limitations: no limitations - History of Present Illness Initial Comments: This is a 59-year-old female with history of OA and COPD presenting for low back pain exacerbation (06/01) x 7 days. Patient states she was scheduled for surgery 2 days ago but was canceled and must undergo physical therapy due to insurance conflict. Patient endorses worse pain with walking and sitting, endorsing bilateral lower extremity radiculopathy and paresthesia. Endorses use of muscle relaxer and Percocet 7.5 mg 3 times daily with no relief. Patient was seen in this ER on 01/03/2025 and discovered to have severe lumbar canal steno sis. Denies fever, chills, neck stiffness, saddle paresthesia, urinary incontinence/retention. MD Complaint: back pain Onset/Timin -: days(s) Similar Symptoms Previously: Yes Radiation: left leg, right leg Severity scale (1-10): 10 Consistency: constant Improves With: immobilization Worsens With: movement, sitting upright, walking Treatments Prior to Arrival: heat therapy, prescription analgesics, other medications - Related Data Home Medications Medication Instructions Recorded Confirmed Ezetimibe [Zetia] 10 mg PO HS 09/05/14 12/21/24 Levothyroxine Sodium [Synthroid] 25 mcg PO DAILY 03/13/16 12/21/24 Omeprazole 40 mg PO HS 11/13/16 12/21/24 clonazePAM [KlonoPIN] 0.5 mg PO BID PRN 05/03/17 12/21/24 Methylphenidate HCl 20 mg PO TID@0500,1200,1700 09/09/18 12/21/24 Atorvastatin Calcium [Lipitor] 10 mg PO HS 10/06/19 12/21/24 estradioL [Estrace] 0.5 mg PO DAILY 10/06/19 12/21/24 Citalopram Hydrobromide [CeleXA] 40 mg PO DAILY 02/09/22 12/21/24 Fluticasone Nasal [place] [Flonase 1 spr EA NOSTRIL BID 02/04/23 12/21/24 Nasal [place]] Brexpiprazole [Rexulti] 0.5 mg PO HS 12/21/24 12/21/24 busPIRone HCl [Buspar] 5 mg PO BID 12/21/24 12/21/24 Previous Rx's Medication Instructions Recorded oxyCODONE HCL/ACETAMINOPHEN 1 tab PO TID PRN 30 Days #90 tab 11/22/24 [Percocet 7.5-325 mg] tiZANidine [Zanaflex] 4 mg PO TID PRN 30 Days #90 tab 11/22/24 Allergies Allergy/AdvReac Type Severity Reaction Status Date / Time Penicillins Allergy Childhood Verified 01/07/25 10:35 Rash morphine AdvReac Chest Pain Verified 01/07/25 10:35 Review of Systems ROS Statement: Those systems with pertinent positive or pertinent negative responses have been documented in the HPI. ROS Other: All systems not noted in ROS Statement are negative. Past Medical History Past Medical History: Asthma, COPD, GERD/Reflux, Hyperlipidemia, Osteoarthritis (OA), Syncope, Thyroid Disorder Additional Past Medical History / Comment(s): kidney stones, hypoglycemia, chronic neck and L shoulder, lower back pain. Hx L facial and L ankle fxs, sinus problems, vertigo, falls in past due to syncope, low BP at times. Fusion of sacrum and iliac crest-per , spinal cord stimulator in cervical spine, diverticulosis/diverticulitis. 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 rectocele repair, d&c , colon resection 05/15/24 Past Anesthesia/Blood Transfusion Reactions: Previous Problems w/ Anesthesia Additional Past Anesthesia/Blood Transfusion Reaction / Comment(s): "Takes longer to wake up from anesthesia." - just once Past Psychological History: ADD/ADHD, Anxiety, Depression Smoking Status: Former smoker Past Alcohol Use History: None Reported Past Drug Use History: None Reported - Past Family History Mother History Unknown: Yes Family Medical History: Cancer Additional Family Medical History / Comment(s): lung Father Family Medical History: Asthma, COPD, Osteoarthritis (OA) Additional Family Medical History / Comment(s): Father at age 80 yrs. Sister(s) Family Medical History: Diabetes Mellitus, Thyroid Disorder General Exam Limitations: no limitations General appearance: alert, in no apparent distress Head exam: Present: atraumatic, normocephalic, normal inspection Eye exam: Present: normal appearance, PERRL, EOMI. Absent: scleral icterus, conjunctival injection, periorbital swelling ENT exam: Present: normal exam, mucous membranes moist Neck exam: Present: normal inspection. Absent: tenderness, meningismus, lymphad enopathy Respiratory exam: Present: normal lung sounds bilaterally. Absent: respiratory distress, wheezes, rales, rhonchi, stridor Cardiovascular Exam: Present: regular rate, normal rhythm, normal heart sounds. Absent: systolic murmur, diastolic murmur, rubs, gallop, clicks GI/Abdominal exam: Present: soft, normal bowel sounds. Absent: distended, tenderness, guarding, rebound, rigid Extremities exam: Present: normal inspection, full ROM, normal capillary refill, other (Distal BLE neurovascular and motor function intact. Patient notes neck pain with bilateral straight leg raise with strength 5/5. Plantar/dorsiflexion strength 5/5. DTR +1 bilaterally). Absent: tenderness, pedal edema, joint swelling, calf tenderness Back exam: Present: muscle spasm, paraspinal tenderness (Positive Thoracic and lumbar muscle spasm and tenderness), vertebral tenderness (Positive lumbar tenderness around L4/L5 without obvious crepitus or step-off). Absent: full ROM Neurological exam: Present: alert, oriented X3, CN II-XII intact Psychiatric exam: Present: normal affect, normal mood Skin exam: Present: warm, dry, intact, normal color. Absent: rash Course Vital Signs 01/07/25 01/07/25 10:32 13:14 Temperature 97.8 F 98.5 F Pulse Rate 68 58 L Respiratory 16 16 Rate Blood Pressure 94/62 131/76 O2 Sat by Pulse 97 96 Oximetry Medical Decision Making - Medical Decision Making Was pt. sent in by a medical professional or institution (, PA, FLANGING MACHINE OPERATOR, urgent care, hospital, or [facility]...) When possible be specific @ -No Did you speak to anyone other than the patient for history (EMS, parent, family, police, friend...)? What history was obtained from this source @ -No Did you review nursing and triage notes (agree or disagree)? Why? @ -I reviewed and agree with nursing and triage notes Were old charts reviewed (outside hosp., previous admission, EMS record, old EKG, old radiological studies, urgent care reports/EKG's, [facility] records)? Report findings @ Lumbar spine CT from 01/03/2025 shows L5-S1 left central disc protrusion/extrusion and moderate to severe left neural for foraminal stenosis at L4-L5 secondary to facet arthropathy. Differential Diagnosis (chest pain, altered mental status, abdominal pain women, abdominal pain men, vaginal bleeding, weakness, fever, dyspnea, syncope, headache, dizziness, GI bleed, back pain, seizure, CVA, palpatations, mental health, musculoskeletal)? @ -Differential Back Pain: Strain, zoster, cauda equina syndrome, epidural abscess, vertebral osteomyelitis, discitis, fracture, subluxation, disc herniation, DJD, spinal stenosis, dissection, AAA, pancreatitis, peptic ulcer disease, pyelonephritis, kidney stone, this is not meant to be an all-inclusive list. EKG interpreted by me (3pts min.). @ -Not done X-rays interpreted by me (1pt min.). @ -None done CT interpreted by me (1pt min.). @ -None done U/S interpreted by me (1pt. min.). @ -None done What testing was considered but not performed or refused? (CT, X-rays, U/S, labs)? Why? @ -Patient recently had lumbar spine CT performed and further imaging was not obtained at this time. What meds were considered but not given or refused? Why? @ -None Did you discuss the management of the patient with other professionals (professionals i.e. , PA, FLANGING MACHINE OPERATOR, lab, RT, psych nurse, social media analyst, growth hacker, teacher, second officer, returned case inspector)? Give summary @ -No Was smoking cessation discussed for >3mins.? @ -No Was critical care preformed (if so, how long)? @ -No Were there social determinants of health that impacted care today? How? (Homelessness, low income, unemployed, alcoholism, drug addiction, transportation, low edu. Level, literacy, decrease access to med. care, fci, rehab)? @ -No Was there de-escalation of care discussed even if they declined (Discuss DNR or withdrawal of care, Hospice)? DNR status @ -No What co-morbidities impacted this encounter? (DM, HTN, Smoking, COPD, CAD, Cancer, CVA, ARF, Chemo, Hep., AIDS, mental health diagnosis, sleep apnea, morbid obesity)? @ -None Was patient admitted / discharged? Hospital course, mention meds given and route, prescriptions, significant lab abnormalities, going to OR and other pertinent info. @ -Recent lumbar CT performed in this ER on 01/03/2025 reviewed. Due to this recent imaging and ongoing pain, no further imaging was performed at this time. Patient initially provided IM Toradol, Decadron, Dilaudid and p.o. Tylenol. Due to ongoing pain, patient provided additional IM Dilaudid and fentanyl patch she can leave on for 72 hours. Follow-up with pain management clinic/PCP for ongoing management of low back pain. Advised to continue previously prescribed Percocet use only for breakthrough pain. Discussed patient with Dr. Giron. Undiagnosed new problem with uncertain prognosis? @ -No Drug Therapy requiring intensive monitoring for toxicity (Heparin, Nitro, Insulin, Cardizem)? @ -No Were any procedures done? @ -No Diagnosis/symptom? @ -Chronic low back pain Acute, or Chronic, or Acute on Chronic? @ -Acute on chronic Uncomplicated (without systemic symptoms) or Complicated (systemic symptoms)? @ -Uncomplicated Side effects of treatment? @ -No Exacerbation, Progression, or Severe Exacerbation? @ -No Poses a threat to life or bodily function? How? (Chest pain, [place], [place], pneumonia, PE, COPD, DKA, ARF, appy, cholecystitis, CVA, Diverticulitis, Homicidal, Suicidal, threat to staff... and all critical care pts) @ -No Disposition Clinical Impression: Chronic back pain Disposition: HOME SELF-CARE Condition: Fair Instructions (If sedation given, give patient instructions): Acute Low Back Pain (ED) Additional Instructions: Follow-up with orthospine and/or pain management clinic for ongoing management of back pain. Mainly fentanyl patch applied for up to 72 hours. Percocet every 8 hours as needed for breakthrough pain. Is patient prescribed a controlled substance at d/c from ED?: No Referrals: Ihsan Ding DO [Primary Care Provider] - 1-2 days Time of Disposition: 12:59
[2025-01-07] MEDS: ACETAMINOPHEN TAB 500 MG TAB PO STA (11:26)
[2025-01-07] MEDS: KETOROLAC 15 MG/ML 1 ML VIAL IM STA (11:28)
[2025-01-07] MEDS: HYDROmorphone 1 MG/ML 1 ML SYRINGE IM STA ×2 (11:30→12:17)
[2025-01-07] MEDS: DEXAMETHASONE SOD PHOSPHATE 10 MG/ML 1 ML VIAL IM STA (11:33)
[2025-01-07 13:20] VITALS: BP 131/76; PULSE 58; TEMP 98.5
== END 2025-01-07 13:20 | disposition home or self-care (01) ==
LOC: EC 10:08
DX: G89.29 Other chronic pain (principal); M54.50 Low back pain, unspecified; Z88.0 Allergy status to penicillin; Z88.5 Allergy status to narcotic agent; Z87.891 Personal history of nicotine dependence
CPT/HCPCS: 99284; 96372 ×4; J1100; J1171; J1885

== ENCOUNTER → 2025-01-10 | Outpatient (CLI) | payer MEDICARE, OTHER ==
[2025-01-10 13:58] VITALS: BP 113/75; PULSE 78; RESP 16; TEMP 97.1
--- NOTE | 2025-01-10 16:04 | P.PAINPG ---
PQRS Measure Charge Sheet Comment: A 59 yr old female with a history of severe and chronic neck and LBP > 2 yr secondary to cervical and lumbar radiculopathy, spondylosis with facet arthropathy without myelopathy presents today for medication refills. Pain level is provoked at 7 /10 in intensity, constant, localized in the cervical & lumbar spine, sharp in character w shooting towards the back of the shoulders and BLEs. Pain is provoked by lifting. Pain is alleviated with PT w massage x 4 wks in Oct 2022, medications, topical , alternating heat & ice, repositioning and rest. Discussed combination of Klonopin 0.5mg #30 and Methylphenidate 20mg #90 she receives from other doctors, the drug interaction and adverse reactions. I had discussed w pt that I will not increase the quantity or dosage of opioid medications due to multiple narcotic use and their adverse interactions. However, today she stated she will have lumbar surgery with hardware by neurosurgeon Dr Luke. Will monitor to see if pt follows through on stated upcoming surgery. Interventional procedures include R TFESI L5-S1 x1 (08/15) Patient is currently on [place] 10/325mg #90 DISCONTINUED. Oxycodone IR 10mg #60, Zanaflex, Ibu Patient denies any side effects of the medication(s), denies excessive drowsiness or sleepiness, denies suicidal ideation and reports that the current pain medication is helping to control the pain and improve activities of daily living. Patient denies any motor or sensory deficits. Patient denies any fever or night sweats, denies any change in the bowel movements or urination. Physical Examination: -Constitutional: Cooperative. Not in acute distress . - Neurologic: Cranial nerve II to XII intact. No focal neurological deficits. - Psychatric: Alert & oriented x 3. Matching mood & appropriate affect. Judgment and insight intact. - Musculoskeletal: Cervical spine: Muscle bulk/ tone/ strength in the bilateral upper extremities normal Vertebral body tenderness to palpation over Spurling test positive Distraction test positive Facet loading test positive TTP Thoracic spine Muscle bulk / tone/ strength in the bilateral paraspinal muscles normal Vertebral body tender to palpation over Facet loading test positive TTP Lumbar spine: Motor bulk/ tone/ strength lower extremities , thigh and legs : 5/5 Deep tendon reflexes : Normal Knee Jerk. Normal Ankle Jerk . Vertebral body tenderness to palpation over L4 Lumbar Facet Loading Test positive Straight Leg Raise: positive at 30 degrees right side/ left side Gaenslen's Test positive Sacral spine : Severe tenderness over the Sacroiliac joint: right side / left side Range of motion: Flexion of the lumbar spine <60 degrees Range of motion: Extension of the lumbar spine <20 degrees Gaenslen's Test positive R / L Tim test: positive right side / left side Thigh Thrust Test positive R / L Sacral Thrust Test positive R/ L Assessment and plan: Chronic neck pain and LBP secondary to cervical & lumbar radiculopathy, spondylosis with facet arthropathy without myelopathy Chronic and current use of high-risk medication (Opioids). The patient was counseled about risk of opioid use, psychological risk associated with opioids and was orally counseled to not overuse , divert or sell medications. Pt is to store medication in a safe location. The patient is counseled against driving while using narcotic medications and also not to use alcohol or any illicit recreational drugs. Patient verbalized understanding that the lack of compliance will result in failure to renew narcotic prescription(s) as well as possible discharge from the clinic Diagnoses, prognosis and treatment options including but not limited to physical therapy, surgical interventions, interventional therapies and medication management including narcotics and adjuvant medication were discussed. All patient questions answered . Opiate/ narcotic agreement renewed 01/10/25. MAPS reviewed and it was appropriate. UDS form 09/27/24 reviewed and consistent. Prescription refill for Ibu 800mg #90, Zanaflex 4mg #90 w 1 RF. Add Oxycodone IR 10mg #60 w RF. I have spent less than 30 minutes on patient care today. Dr Castanon was available by phone for the evaluation of this patient. The time was used to review the medical records including relevant urine studies and Prescription history (MAPs), review of the available imaging, evaluation and examination of the patient, coordination of care with the medical staff and if applicable referring physicians, as well as creation of the medical record - Pain Location Bilateral Lower Back Non-Pharmacological Interventions: Heat, Inactivity, Massage, Physical Therapy, Position/Reposition, Relaxation Technique, Sitting Pharmacological Interventions: Block, Epidural, PRN Medication, Scheduled Medication, Topical Medication PQRS Narrative: Smoking Status Former smoker Narcotic Agreement Date Signed 08/02/24 Hx Alcohol Use (MH) No Home Medications: Ambulatory Orders Ezetimibe [Zetia] 10 mg PO HS 09/05/14 Levothyroxine Sodium [Synthroid] 25 mcg PO DAILY 03/13/16 Omeprazole 40 mg PO HS 11/13/16 clonazePAM [KlonoPIN] 0.5 mg PO BID PRN 05/03/17 Methylphenidate HCl 20 mg PO TID@0500,1200,1700 09/09/18 Atorvastatin Calcium [Lipitor] 10 mg PO HS 10/06/19 estradioL [Estrace] 0.5 mg PO DAILY 10/06/19 Citalopram Hydrobromide [CeleXA] 40 mg PO DAILY 02/09/22 Fluticasone Nasal [place] [Flonase Nasal [place]] 1 spr EA NOSTRIL BID 02/04/23 Brexpiprazole [Rexulti] 0.5 mg PO HS 12/21/24 busPIRone HCl [Buspar] 5 mg PO BID 12/21/24 Ibuprofen 600 mg PO Q8H 30 Days #90 tab 01/10/25 oxyCODONE HCL [Oxycodone HCl] 10 mg PO BID PRN 30 Days #60 tab 01/10/25 oxyCODONE HCL [oxyCODONE HCL (IR)] 10 mg PO BID PRN 30 Days #60 tab 01/10/25 tiZANidine [Zanaflex] 4 mg PO TID PRN 30 Days #90 tab 01/10/25 Controlled Substance Measures - Controlled Substance Measures Is patient prescribed a controlled substance at discharge?: Yes When asked, does pt state using other controlled substances?: Yes If prescribed controlled substance>3 days was MAPS reviewed?: Yes If Rx opioid, was Start Talking consent form obtained?: Yes Was information provided regarding opioid addiction?: Yes
== END ==
LOC: PNWHC3 13:32
PROVIDERS: ATTEND Specialist
DX: M47.26 Other spondylosis with radiculopathy, lumbar region (principal); M47.22 Other spondylosis with radiculopathy, cervical region; G89.29 Other chronic pain; Z87.891 Personal history of nicotine dependence; Z79.890 Hormone replacement therapy; Z88.5 Allergy status to narcotic agent; Z88.0 Allergy status to penicillin
CPT/HCPCS: 99211

== ENCOUNTER → 2025-03-07 | Outpatient (CLI) | payer MEDICARE, OTHER ==
[2025-03-07 09:09] VITALS: BP 110/76; PULSE 62; RESP 18; TEMP 98.9
--- NOTE | 2025-03-12 16:16 | P.PAINPG ---
PQRS Measure Charge Sheet Comment: A 59 yr old female with a history of severe and chronic neck and LBP > 2 yr secondary to cervical and lumbar radiculopathy, spondylosis with facet arthropathy without myelopathy presents today for medication refills. Pain level is provoked at 7 - 10 /10 in intensity, constant, localized in the cervical & judy mbar spine, sharp in character w shooting towards the back of the shoulders and BLEs. Pain is provoked by lifting. Pain is alleviated with PT w massage x 4 wks in Oct 2022, medications, topical , alternating heat & ice, repositioning and rest. Pt asking for increased quantity of Oxycodone IR 10mg to TID dosing, stating she has upcoming neurosurgery in Mar, 2025. Discussed intervention w non -narcotic medications which pt stated "they didn't help." Discussed recent increase from Percocet 7.5/325mg to Oxycodone IR 10mg which could point to dependency issues and discussed methadone or suboxone use, which pt stated "I've been on those and they didn't help." Discussed that I will add Lidoderm and she may receive short course of narcotics from her neurosurgeon if she has upcoming surgery. Previously discussed combination of Klonopin 0.5mg #30 and Methylphenidate 20mg #90 she receives from other doctors, the drug interaction and adverse reactions. I had discussed w pt that I will not increase the quantity or dosage of opioid medications due to multiple narcotic use and their adverse interactions. Interventional procedures include R TFESI L5-S1 x1 (08/15) Patient is currently on [place] 10/325mg #90 DISCONTINUED. Oxycodone IR 10mg #60, Zanaflex, Ibu Patient denies any side effects of the medication(s), denies excessive drowsiness or sleepiness, denies suicidal ideation and reports that the current pain medication is helping to control the pain and improve activities of daily living. Patient denies any motor or sensory deficits. Patient denies any fever or night sweats, denies any change in the bowel movements or urination. Physical Examination: -Constitutional: Cooperative. Not in acute distress . - Neurologic: Cranial nerve II to XII intact. No focal neurological deficits . - Psychatric: Alert & oriented x 3. Matching mood & appropriate affect. Judgment and insight intact. - Musculoskeletal: Cervical spine: Muscle bulk/ tone/ strength in the bilateral upper extremities normal Vertebral body tenderness to palpation over Spurling test positive Distraction test positive Facet loading test positive TTP Thoracic spine Muscle bulk / tone/ strength in the bilateral paraspinal muscles normal Vertebral body tender to palpation over Facet loading test positive TTP Lumbar spine: Motor bulk/ tone/ strength lower extremities , thigh and legs : 5/5 Deep tendon reflexes : Normal Knee Jerk. Normal Ankle Jerk . Vertebral body tenderness to palpation over L4 Lumbar Facet Loading Test positive Straight Leg Raise: positive at 30 degrees right side/ left side Gaenslen's Test positive Sacral spine : Severe tenderness over the Sacroiliac joint: right side / left side Range of motion: Flexion of the lumbar spine <60 degrees Range of motion: Extension of the lumbar spine <20 degrees Gaenslen's Test positive R / L Tim test: positive right side / left side Thigh Thrust Test positive R / L Sacral Thrust Test positive R/ L Assessment and plan: Chronic neck pain and LBP secondary to cervical & lumbar radiculopathy, spondylosis with facet arthropathy without myelopathy Chronic and current use of high-risk medication (Opioids). The patient was counseled about risk of opioid use, psychological risk associated with opioids and was orally counseled to not overuse , divert or sell medications. Pt is to store medication in a safe location. The patient is counseled against driving while using narcotic medications and also not to use alcohol or any illicit recreational drugs. Patient verbalized understanding that the lack of compliance will result in failure to renew narcotic prescription(s) as well as possible discharge from the clinic Diagnoses, prognosis and treatment options including but not limited to physical therapy, surgical interventions, interventional therapies and medication management including narcotics and adjuvant medication were discussed. All patient questions answered . Opiate/ narcotic agreement renewed 01/10/25. MAPS reviewed and it was appropriate. UDS form 09/27/24 reviewed and consistent. Prescription refill for Oxycodone IR 10mg #60, Ibu 800mg #90, Zanaflex 4mg #90, adding Lidoderm 5% #30 w RF. I have spent less than 30 minutes on patient care today. Dr Castanon was available by phone for the evaluation of this patient. The time was used to review the medical records including relevant urine studies and Prescription history (MAPs), review of the available imaging, evaluation and examination of the patient, coordination of care with the medical staff and if applicable referring physicians, as well as creation of the medical record PQRS Narrative: Smoking Status Former smoker Narcotic Agreement Date Signed 08/02/24 Hx Alcohol Use (MH) No Home Medications: Ambulatory Orders Ezetimibe [Zetia] 10 mg PO HS 09/05/14 Levothyroxine Sodium [Synthroid] 25 mcg PO DAILY 03/13/16 Omeprazole 40 mg PO HS 11/13/16 clonazePAM [KlonoPIN] 0.5 mg PO BID PRN 05/03/17 Methylphenidate HCl 20 mg PO TID@0500,1200,1700 09/09/18 Atorvastatin Calcium [Lipitor] 10 mg PO HS 10/06/19 estradioL [Estrace] 0.5 mg PO DAILY 10/06/19 Citalopram Hydrobromide [CeleXA] 40 mg PO DAILY 02/09/22 Fluticasone Nasal [place] [Flonase Nasal [place]] 1 spr EA NOSTRIL BID 02/04/23 Brexpiprazole [Rexulti] 0.5 mg PO HS 12/21/24 busPIRone HCl [Buspar] 5 mg PO BID 12/21/24 Ibuprofen 600 mg PO Q8H 30 Days #90 tab 01/10/25 oxyCODONE HCL [Oxycodone HCl] 10 mg PO BID PRN 30 Days #60 tab 01/10/25 oxyCODONE HCL [oxyCODONE HCL (IR)] 10 mg PO BID PRN 30 Days #60 tab 01/10/25 tiZANidine [Zanaflex] 4 mg PO TID PRN 30 Days #90 tab 01/10/25 Diclofenac Sodium Gel [Voltaren 1% Gel] 50 gm TOPICAL BID 30 Days #1 each 02/28/25 Controlled Substance Measures - Controlled Substance Measures Is patient prescribed a controlled substance at discharge?: Yes When asked, does pt state using other controlled substances?: Yes If prescribed controlled substance>3 days was MAPS reviewed?: Yes
== END ==
LOC: PNWHC3 08:55
PROVIDERS: ATTEND Specialist
DX: M47.26 Other spondylosis with radiculopathy, lumbar region (principal); Z88.0 Allergy status to penicillin; Z88.5 Allergy status to narcotic agent; Z79.891 Long term (current) use of opiate analgesic; Z87.891 Personal history of nicotine dependence
CPT/HCPCS: 99211